=== PATIENT | male | born 1950 | race Caucasian/White ===

== ENCOUNTER 2016-02-11 17:34 | Inpatient (IN) | payer MEDICARE, MEDICAID ==
[~2016-02-11] VITALS: Ht 190.5 cm; Wt 143.6 kg
[~2016-02-11 17:34] MED LIST: ALBU17IN INH; ALBU83IN INH; BREO1INH3 INH; CARV6.25 PO; LISI-538 PO; OMEP20CA3 PO; PERCOCET PO; PRAV20TA2 PO; PRED10TA PO; ROPI1TAB PO; SPIR12.9 INH; TIOT18INH INH; ZYLO300T4 PO
[2016-02-11 18:53] LABS: DIFF SLIDE NUMBER 192; MEAN CORPUSCULAR HEMOGLOBIN 32.2 pg (27.0-33.0); MEAN CORPUSCULAR HGB CONC 32.6 g/dl (32.0-36.5); MEAN CORPUSCULAR VOLUME 98.6 fl (80.0-96.0); PLATELET COUNT, AUTOMATED 294 k/mm3 (150-450); RED CELL DISTRIBUTION WIDTH 13.8 % (11.5-14.5); WHITE BLOOD COUNT 12.6 K/mm3 (4.0-10.0)
[2016-02-11 19:13] LABS: ANION GAP 12 MEQ/L (8-16); BLOOD UREA NITROGEN 23 MG/DL (7-18); CALCIUM LEVEL 9.5 MG/DL (8.8-10.2); CARBON DIOXIDE LEVEL 26 MEQ/L (21-32); CHLORIDE LEVEL 100 MEQ/L (98-107); CREATININE FOR GFR 1.75 MG/DL (0.70-1.30); GLOMERULAR FILTRATION RATE 42.1 (>49); GLUCOSE, FASTING 112 MG/DL (80-110); POTASSIUM SERUM 4.3 MEQ/L (3.5-5.1); SODIUM LEVEL 138 MEQ/L (136-145)
[2016-02-11] MEDS ORDERED: ONDANSETRON 4MG/2ML VIAL (J2405) As Ordered ONE (19:26)
[2016-02-11] MEDS ORDERED: IPRATROPIUM 0.5MG/ALBUTEROL 2.5MG INH SOL UD 3ML (DUONEB)(J7620) As Ordered ONE (19:32)
[2016-02-11] MEDS ORDERED: ACETAMINOPHEN 325 MG TAB As Ordered ONE (19:33)
[2016-02-11 19:35] LABS: EOSINOPHILS 10 % (0-5)
[2016-02-11 19:39] LABS: GIANT PLATELETS 1+
[2016-02-11 19:48] LABS: ABG BASE EXCESS 1.2 (-2.0-2.0); ABG DEVICE NASAL CANN; ABG HCO3 25.1 MEQ/L (22.0-26.0); ABG PARTIAL PRESSURE CO2 37.5 mmHg (35.0-45.0); ABG STANDARD HCO3 25.6 MEQ/L (22.0-26.0); ABG TOTAL CO2 26.3 MEQ/L (23.0-31.0); ABG pH (ARTERIAL) 7.444 UNITS (7.350-7.450)
[2016-02-11 19:50] LABS: ABG PARTIAL PRESSURE O2 162.6 mmHg (75.0-100.0)
--- NOTE | 2016-02-11 20:26 | REP ---
Clinical: Shortness of breath. Technique: PA and lateral. Comparison: 01/29/2016, 01/07/2016. Findings: Chronic diffuse bilateral interstitial changes with fibrosis and scarring as well as left lower lobe opacities appear essentially unchanged compared to 01/07/2016. Mediastinum and cardiac silhouette stable. Skeletal structures intact. Impression: Findings appear stable when compared to 01/07/2016. Subtle superimposed acute process cannot be excluded and should be correlated clinically. Signed by Pb Perkins MD 02/11/2016 08:18 P
--- NOTE | 2016-02-11 23:10 | REPUSA ---
CLINICAL HISTORY: Left lower quadrant pain. TECHNIQUE: CT abdomen and pelvis without contrast. COMPARISON: January 29, 2016. CT ABDOMEN WITHOUT CONTRAST: Lung bases: Mild left pleural effusion, unchanged. Partial visualization of right lower lobe nodule. Liver: No intrahepatic ductal dilation. Diffusely decreased hepatic attenuation consistent with fatty infiltration. Gallbladder: Cholecystectomy. Pancreas: No pancreatic duct dilation. Bowel loops: Nondistended. Spleen: Normal size. Adrenals: Right adrenalectomy. Subtle nodularity of the left adrenal gland. Right kidney: Nephrectomy. Left kidney: No stones or hydronephrosis. Aorta: 2.9 cm infrarenal ectasia and mild ectasia of the right common iliac artery. Peritoneum: No free air. CT PELVIS WITHOUT CONTRAST: Colon: Scattered diverticula without evidence of diverticulitis. Bladder: Normally distended. Pelvic organs: Unremarkable. Peritoneum: No fluid. Lumbar spine: Degenerative spondylotic changes at multiple levels. IMPRESSION: 1. No acute abdominal findings to explain left lower quadrant pain. 2. Right lower lobe nodule is incompletely evaluated on this exam. Consider chest CT for full evaluat ion. 3. Stable appearance of left pleural effusion. 4. Right nephrectomy and adrenalectomy.
[2016-02-11] MEDS ORDERED: rOPINIRole 1MG TAB PO ONE (23:30)
--- NOTE | 2016-02-11 23:40 | REPUSA ---
CLINICAL HISTORY: Status post lobectomy for cancer. Fever. TECHNIQUE: CT chest without contrast. COMPARISON: January 07, 2016. CT CHEST WITHOUT CONTRAST: Lungs: Status post left upper lobectomy. Mild left pleural effusion. Interval appearance of left lowe r lobe centrilobular nodular opacities. Right lower lobe nodule measures 1.8 x 2.3 cm, stable. Right lung emphysematous changes. Interval resolution of previously seen right lower lobe centrilobular opa cities. Heart: Normal size. No significant effusion. Aorta: Normal caliber. Mediastinum and yesenia: No significant lymphadenopathy. Bony thorax: Nondisplaced fracture of the left posterior 4th rib. Limited upper abdomen: No acute findings. IMPRESSION: 1. Status post left upper lobectomy. 2. Stable right lower lobe nodule, presumed to represent neoplastic disease. 3. Resolution of right lower lobe centrilobular opacities, with interval appearance of left lower lob e centrilobular opacities, suggesting bronchopneumonia.
[2016-02-11] MEDS ORDERED: AZITHROMYCIN INJ 500MG VIAL (J0456) As Ordered ONE (23:44)
[2016-02-11] MEDS ORDERED: cefTRIAXone SOD 1 GM VIAL (J0696) As Ordered ONE (23:44)
[2016-02-12] MEDS ORDERED: MAGN400T5 PO
[2016-02-12] MEDS ORDERED: IRON65TA PO
[2016-02-12] MEDS ORDERED: IPRATROPIUM 0.5MG/ALBUTEROL 2.5MG INH SOL UD 3ML (DUONEB)(J7620) NEB PRN (00:45)
[2016-02-12] MEDS ORDERED: BISACODYL 5 MG TAB PO PRN (00:45)
[2016-02-12] MEDS ORDERED: ACETAMINOPHEN TAB 650MG DOSE (2X325MG) PO PRN (00:45)
[2016-02-12] MEDS: IPRATROPIUM 0.5MG/ALBUTEROL 2.5MG INH SOL UD 3ML (DUONEB)(J7620) NEB SCH ×4 (02:00→19:20)
--- NOTE | 2016-02-12 02:17 | EDDOCDS ---
Physician Documentation [facility] Name: Brandon Winchester Age: 65 yrs Sex: Male : 1950 Arrival Date: 02/11/2016 Time: 17:34 Bed 5 Private MD: Alex Pike MD Disposition: 02/10 23:38 Critical Care: Critical care not applicable. pc Disposition: 02/11/16 23:41 Hospitalization ordered by Peter Mclaughlin for Inpatient Admission. Preliminary diagnosis are Bronchopneumonia, unspecified organism - LLL, Malignant neoplasm of bronchus and lung. - Bed requested for 4 [place]. - Status is Inpatient Admission. mgs - Condition is Stable. - Problem is new. - Symptoms have improved. HPI: 19:36 This 65 yrs old Male presents to ER via Wheelchair with complaints of pc Breathing Difficulty. 19:36 The history is obtained from the patient, the patient's family/friend. He awoke feeling pc SOB this morning, with left lower abdominal pain, which has been recurrent since his LULectomy in December, having had 2 normal CTs in the past 4 weeks for the same complaint. He has not had any relief with his nebs and his family restarted his oxygen that he only had immediately post-op and does not use regularly. He has had chills but did not know he had a fever until he checked into the ED. He denies any vomiting or diarrhea but has been nauseated. He denies any sputum production, denies symptoms,. H e has chronic left chest pain since his surgery. At their worst, the symptoms were moderate. In the emergency department, the symptoms are unchanged. The patient has been recently seen by Dr. Perez. Historical: - Allergies: fizohex; - Home Meds: 1. albuterol sulfate 2.5 mg /3 mL (0.083 %) Inhl nebu daily 2. allopurinol 300 mg Oral tab 1 tab once daily 3. Breo Ellipta 200-25 mcg/dose inhalation dsdv 1 puff once daily 4. carvedilol 6.25 mg oral tab 1 tab 2 times per day 5. pravastatin 20 mg oral tab 1 tab once daily 6. Prilosec 20 mg Oral cpDR 1 cap once daily 7. ropinirole 3 mg oral tab 1 tab 8. Spiriva with HandiHaler 18 mcg Inhl CpDv 1 cap once daily - PMHx: COPD; Depression; GERD; Gout; Hypercholesterolemia; Hypertension; - The history from nurses notes was reviewed: and I agree with what is documented. - Social history: Smoking status: Patient/guardian denies using No barriers to communication noted, The patient speaks fluent Upper Sorbian. - Family history: Not pertinent. - : The pt / caregiver states he / she is not on anticoagulants. Home medication list is obtained from [employer] import data. - Hospitalizations: : No recent hospitalization is reported. - Exposure Risk Screening:: None identified. - Immunization history:: All immunizations up-to-date. - Social history:: the patient is a former smoker, the patient does not drink alcohol. ROS: 19:36 All systems are negative except as listed. pc Exam: 19:36 General Appearance: no acute distress, alert. pc 19:36 EENT: normal eye inspection, ears, nose and throat normal, pharynx normal, mucous membranes moist 19:36 Neck: The exam reveals no acute abnormalities. ROM is normal and painless. No nuchal rigidity is noted.. 19:36 Respiratory: no respiratory distress, normal breath sounds, Chest tenderness in the anterior aspect of left upper chest. 19:36 CVS: regular rhythm, normal S1 and S2, no murmurs, the patient is tachycardic, at 122 bpm. 19:36 Abdomen: soft, no organomegaly, normal bowel sounds, mild tenderness in the left upper quadrant, right lower quadrant and left lower quadrant, without rebound, voluntary guarding is not appreciated, involuntary guarding is not appreciated. 19:36 Back: normal inspection. 19:36 Skin: skin color is normal, warm, dry. 19:36 Extremities: The extremities have a grossly normal appearance, are non-tender, without acute ROM abnormalities. 19:36 Neuro: oriented x 3, cranial nerves normal as tested, no motor deficits, no sensory deficits. 19:36 Psych: normal mood. Vital Signs: 17:37 BP 131 / 83; Pulse 120; Resp 26 S; Temp 100.6(T); Pulse Ox 93% on R/A; Weight 138.8 kg dd6 / 306 lbs (R); Height 6 ft. 4 in. (193.04 cm) (R); 18:09 BP 146 / 88 (auto/); mgs 18:10 Pulse 124 MON; Pulse Ox 93% ; mgs 18:24 BP 151 / 88 (auto/); mgs 18:24 Pulse 124 MON; Pulse Ox 90% ; mgs 18:39 BP 149 / 87 (auto/); mgs 18:39 Pulse 122 MON; Pulse Ox 90% ; mgs 18:54 BP 148 / 85 (auto/); mgs 18:54 Pulse 122 MON; Pulse Ox 93% ; mgs 19:09 BP 147 / 84 (auto/); mgs 19:09 Pulse 122 MON; Pulse Ox 92% ; mgs 19:24 BP 149 / 86 (auto/); mgs 19:24 Pulse 120 MON; Pulse Ox 92% ; mgs 19:39 BP 148 / 92 (auto/); mgs 19:39 Pulse 120 MON; Pulse Ox 93% ; mgs 19:54 BP 145 / 81 (auto/); mgs 19:54 Pulse 116 MON; Pulse Ox 93% ; mgs 20:09 BP 141 / 88 (auto/); mgs 20:09 Pulse 116 MON; Pulse Ox 92% ; mgs 20:24 BP 136 / 75 (auto/); mgs 20:24 Pulse 114 MON; Pulse Ox 92% ; mgs 20:54 BP 112 / 60 (auto/); mgs 20:54 Pulse 112 MON; Pulse Ox 93% ; mgs 21:08 Pulse 110 MON; Temp 97.4(TE); Pulse Ox 92% ; mgs 21:09 BP 113 / 69 (auto/); mgs 21:24 BP 118 / 71 (auto/); mgs 21:24 Pulse 104 MON; Pulse Ox 93% ; mgs 21:39 BP 116 / 73 (auto/); mgs 21:39 BP 116 / 73 (auto/); mgs 21:39 Pulse 104 MON; Pulse Ox 94% ; mgs 21:40 Pulse 102 MON; Pulse Ox 94% ; mgs 21:54 BP 124 / 74 (auto/); mgs 21:54 Pulse 100 MON; Pulse Ox 93% ; mgs 22:09 BP 122 / 71 (auto/); mgs 22:09 Pulse 102 MON; Pulse Ox 93% ; mgs 22:24 BP 117 / 71 (auto/); mgs 22:24 Pulse 100 MON; Pulse Ox 91% ; mgs 22:39 BP 132 / 76 (auto/); mgs 22:40 Pulse 96 MON; Pulse Ox 90% ; mgs 22:54 BP 125 / 72 (auto/); mgs 22:55 Pulse 98 MON; Pulse Ox 89% ; mgs 23:09 BP 127 / 78 (auto/); mgs 23:09 Pulse 98 MON; Pulse Ox 88% ; mgs 23:23 Pulse 94 MON; Pulse Ox 89% ; mgs 23:24 BP 131 / 76 (auto/); mgs 23:39 BP 130 / 77 (auto/); mgs 23:39 Pulse 100 MON; Pulse Ox 94% on 4 lpm NC; mgs 23:54 BP 147 / 91 (auto/); mgs 23:54 Pulse 100 MON; Pulse Ox 93% ; mgs 0103 00:09 BP 140 / 76 (auto/); mgs 00:09 Pulse 102 MON; Pulse Ox 93% ; mgs 00:24 BP 131 / 77 (auto/); mgs 00:24 Pulse 102 MON; Pulse Ox 93% ; mgs 00:39 BP 146 / 80 (auto/); mgs 00:39 Pulse 102 MON; Pulse Ox 94% on 4 lpm NC; mgs 00:54 BP 139 / 74 (auto/); mgs 00:54 Pulse 100 MON; Pulse Ox 94% ; mgs 01:09 BP 136 / 78 (auto/); mgs 01:09 Pulse 108 MON; Pulse Ox 92% ; mgs 01:56 BP 135 / 78; Pulse 98; Resp 20; Temp 98.3(O); Pulse Ox 95% on 4 lpm NC; Pain 3/10; jmv 02/10 17:37 Body Mass Index 37.25 (138.80 kg, 193.04 cm) dd6 MDM: 02/10 18:19 ECG WITH READING ER PHYS+CARDIAG ordered. EDMS 18:23 Medical Records Library Professor/Pulse Ox/q 30 min VS ordered. brittny 18:23 IV Saline Lock ordered. brittny 18:23 Rhythm Strip to chart ordered. milagrok 18:23 Undress patient appropriately for examination ordered. brittny 18:23 -Blood Culture (Adults Only), peripheral from different site, or from device/port/PICC brittny etc. if present ordered. 18:23 Medical Records Library Professor/Pulse Ox/q 15 min VS ordered. jmk 18:23 Oxygen at 4L/Min NC or Home dosage ordered. jmk 18:24 Basic Metabolic Profile Ordered. EDMS 18:24 CBC with Diff Ordered. EDMS 18:24 Cardiac Injury Profile Ordered. EDMS 18:24 Troponin Ordered. EDMS 18:24 -Blood Culture Ordered. EDMS 18:42 -Blood Culture (Adults Only), peripheral from different site, or from device/port/PICC deg etc. if present complete. 18:43 BLOOD CULTURES Ordered. EDMS 18:54 DIFFERENTIAL NO CHARGE Ordered. EDMS 18:54 PLATELET ESTIMATE Ordered. EDMS 19:11 Call Respiratory ordered. pc 19:12 Lactic Acid (Weinstein tube on ice) Ordered. EDMS 19:12 Chest, 2 View (pa\E\lat) Ordered. EDMS 19:12 -Arterial Blood Gas Ordered. EDMS 19:16 Call Respiratory complete. sew 19:21 Ondansetron 4 mg IVP once ordered. pc 19:22 Basic Metabolic Profile Reviewed. pc 19:22 CBC with Diff Reviewed. pc 19:22 Cardiac Injury Profile Reviewed. pc 19:22 Troponin Reviewed. pc 19:25 Acetaminophen Tablet 650 mg PO once ordered. pc 19:25 NS 0.9% 500 ml IV at bolus once ordered. pc 19:25 Albuterol-Ipratropium 3 ml Inhalation once ordered. pc 19:25 Call Respiratory ordered. pc 19:33 Call Respiratory complete. sew 19:42 Differential Diagnosis: COPD exac., post-operative chest pain - ongoing, recurrent pc abdominal pain. Plan: labs, imaging, meds, EKG. 20:03 Test interpretation: EKG. pc 20:29 Financial registration complete. zo 20:41 Obtain sample by nasopharyngeal swab ordered. pc 20:41 CBC with Diff Reviewed. pc 20:41 -Arterial Blood Gas Reviewed. pc 20:41 PLATELET ESTIMATE Reviewed. pc 20:41 Lactic Acid (Weinstein tube on ice) Reviewed. pc 20:42 -Influenza A&B Rapid Antigen - Nose Ordered. EDMS 20:43 CT Chest Without Contrast Ordered. EDMS 20:43 CT ABD & PELVIS: No Contrast Ordered. EDMS 20:55 [place] Payment Agreement was scanned into [employer] and attached to record. zo 21:15 -Influenza A&B Rapid Antigen - Nose Reviewed. pc 21:15 Chest, 2 View (pa\E\lat) Reviewed. pc 23:17 rOPINIRole 2 mg PO once ordered. mgs 23:37 cefTRIAXone 1 grams IVPB once over 30 mins; dilute in 50mL of NS or D5W ordered. pc 23:37 azithromycin 500 mg IVPB once over 1 hrs; dilute in 250mL of D5W or NS ordered. pc 23:38 Data reviewed: old medical records, vital signs, nurses notes, EKG(s), lab test pc results, all radiology studies and available results. Test interpretation: LAB - all labs as ordered have been reviewed, interpreted and considered in the overall management of the clinical presentation; X-RAY - interpreted by Radiologist and personally reviewed, 2 view chest, ?CHF and LLL infiltrates interpreted by Radiologist and personally reviewed, Abdomen/Pelvis CT; no acute disease, Chest CT; new LLL bronchopneumonia, else stable. The patient has been re-examined and re-evaluated. The patient's symptoms have mildly improved after treatment. Physician consultation: Dr. Peter Mclaughlin DO was contacted at 23:40, regarding admission. Disposition: The historical points, examination findings, and any diagnostic results supporting the provided diagnosis, were discussed with the patient or legal guardian. The need for further work-up and/or treatment in the hospital was explained. 23:39 BED REQUEST+ADM ordered. EDMS /03 00:46 LOW FAT LOW CHOLESTEROL DIET ordered. EDMS 00:47 PHYSICAL THERAPY EVAL & TREAT ordered. EDMS 00:48 LEGIONELLA ANTIGEN URINE Ordered. EDMS 00:48 URINE STREP PNEUMONIAE ANTIGEN Ordered. EDMS 00:49 INFLUENZA A&B RAPID ANTIGEN Ordered. EDMS 00:49 SPUTUM CULTURE AND GRAM STAIN Ordered. EDMS 00:51 CARDIAC MARKER PANEL Ordered. EDMS 00:51 CARDIAC MARKER PANEL Ordered. EDMS 01:43 Admission / Observation Status ordered. EDMS EC/02 20:03 Rate is 124 beats/min. Rhythm is regular, Sinus tachycardia. QRS [place] is Normal. [place] pc interval is normal. QRS interval is normal. QT interval is normal. Q waves are Old in leads III, aVF. T waves are Normal. No ST changes noted. Clinical impression: Sinus tachycardia, Inferior OH - age indeterminate, and LAE. Administered Medications: 19:31 Drug: Ondansetron 4 mg [ondansetron HCl 2 mg/mL intravenous solution (2 mL)] Route: mgs IVP; Site: right wrist; 22:00 Follow up: Response: Nausea is decreased mgs 19:41 Drug: Acetaminophen 650 mg [acetaminophen 325 mg tablet (2 tabs)] Route: PO; mgs 19:41 Drug: NS 0.9% 500 ml [sodium chloride 0.9 % intravenous solution] Route: IV; Rate: mgs bolus; Site: right wrist; 21:59 Follow up: IV Status: Completed infusion; IV Intake: 500ml mgs 19:44 Drug: Albuterol-Ipratropium 3 ml [ipratropium-albuterol 0.5 mg-3 mg(2.5 mg base)/3 mL jc3 nebulization soln (3 mL)] Route: Inhalation; 23:42 Drug: rOPINIRole 2 mg Route: PO; mgs 02/11 00:00 Drug: cefTRIAXone 1 grams [ceftriaxone 250 mg solution for injection] Route: IVPB; mgs Infused Over: 30 mins; Site: right forearm; 00:45 Drug: azithromycin 500 mg [azithromycin 500 mg intravenous solution] Route: IVPB; mgs Infused Over: 1 hrs; Site: right wrist; Signatures: Dispatcher [employer] EDMS Kev Katz MD MD pc Murray, Denise, Manne[employer] Unit deg Collins Mckeon RN RN jmk Scott, Debra, RN RN dls Olin, Zoeann zo Wallace, Sarah sew Sheldon, Matthew, RN RN mgs Crane, Kelsi, RN RN kc3 Aman Medina 3 The chart was reviewed and I authenticate all verbal orders and agree with the evaluation and treatment provided.Corrections: (The following items were deleted from the chart) 02/10 19:41 19:36 CVS: regular pulse rate, regular rhythm, normal S1 and S2, no murmurs, pc pc Attachments: 20:55 [facility] Payment Agreement zo MTDD
--- NOTE | 2016-02-12 02:18 | EDDOCDS ---
Nurse's Notes [facility] Name: Brandon Winchester Age: 65 yrs Sex: Male : 1950 Arrival Date: 02/11/2016 Time: 17:34 Bed 5 Private MD: Alex Pike MD Diagnosis: Bronchopneumonia, unspecified organism-LLL;Malignant neoplasm of bronchus and lung Presentation: 02/10 17:56 Presenting complaint: Pt had upper lobe of left lung removed by Dr Perez December 24 dls been doing well since surgery. Today pt called family requesting oxygen again. Neb tx given all day pt on 2L oxygen running a fever congested cough. Adult Sepsis Screening: The patient does not have new or worsening altered mentation. Patient has a respiratory rate of greater than or equal to 22 (1 point). Systolic blood pressure is greater than 100. Patient has a qSOFA score of 1- Negative Sepsis Screen. Suicide/Homicide risk assessment- the patient denies having any suicidal and/or homicidal ideations and does not present with any other emotional, behavioral or mental health complaints. Status: Patient is not a claims service adjustor or dependent. Transition of care: patient was not received from another setting of care. 17:56 Acuity: KALEN Level 3 dls 17:56 Method Of Arrival: Wheelchair dls Triage Assessment: 18:01 General: Appears uncomfortable, Behavior is cooperative. Pain: Pain currently is 4 out dls of 10 on a pain scale. HIV screening NA for this visit Offered previously. Historical: - Allergies: fizohex; - Home Meds: 1. albuterol sulfate 2.5 mg /3 mL (0.083 %) Inhl nebu daily 2. allopurinol 300 mg Oral tab 1 tab once daily 3. Breo Ellipta 200-25 mcg/dose inhalation dsdv 1 puff once daily 4. carvedilol 6.25 mg oral tab 1 tab 2 times per day 5. pravastatin 20 mg oral tab 1 tab once daily 6. Prilosec 20 mg Oral cpDR 1 cap once daily 7. ropinirole 3 mg oral tab 1 tab 8. Spiriva with HandiHaler 18 mcg Inhl CpDv 1 cap once daily - PMHx: COPD; Depression; GERD; Gout; Hypercholesterolemia; Hypertension; - The history from nurses notes was reviewed: and I agree with what is documented. - Social history: Smoking status: Patient/guardian denies using No barriers to communication noted, The patient speaks fluent Arabic. - Family history: Not pertinent. - : The pt / caregiver states he / she is not on anticoagulants. Home medication list is obtained from [employer] import data. - Hospitalizations: : No recent hospitalization is reported. - Exposure Risk Screening:: None identified. - Immunization history:: All immunizations up-to-date. - Social history:: the patient is a former smoker, the patient does not drink alcohol. Screenin:10 Screening information is obtained from the patient. Fall risk: At risk due to. kc3 Assistance ADL's: Requires assistance with meal preparation, this assistance is provided by family members, housework, assistance is provided by family members. Abuse/DV Screen: The patient / caregiver reports he/she is: not in a situation that causes fear, pain or injury. Nutritional screening: No deficits noted. Advance Directives: Currently, there is a health care proxy, filiberto To. home support is adequate. Assessment: 18:12 General: Appears uncomfortable, Behavior is appropriate for age, cooperative. Pain: kc3 Location: chest and epigastric area Pain currently is 4 out of 10 on a pain scale. Neurological: Level of Consciousness is awake, alert, obeys commands, Oriented to person, place, time. Cardiovascular: Rhythm is sinus tachycardia Chest pain is described as Pain is 4 out of 10 on a pain scale. quality is achiness radiates Does not radiate. Respiratory: Airway is patent Respiratory effort is even, labored, Respiratory pattern is regular, symmetrical, Breath sounds are coarse Breath sounds with crackles Breath sounds with rhonchi. Derm: Skin is pink, warm & dry. Musculoskeletal: Circulation, motion, and sensation intact. 18:35 General: Appears uncomfortable, Behavior is appropriate for age, cooperative. General: kc3 Per daughter, pt had a total of 5 albuterol nebulizer treatments today salt maker. . Neurological: Level of Consciousness is awake, alert, obeys commands, Oriented to person, place, time. Cardiovascular: Rhythm is sinus tachycardia. Respiratory: Respiratory effort is even, labored, Respiratory pattern is regular, symmetrical. GI: Reports nausea. Derm: Skin is pink, warm & dry. Musculoskeletal: Circulation, motion, and sensation intact. 19:08 General: Appears uncomfortable, Behavior is appropriate for age, cooperative, Patient mgs reports pain in abdomen and left chest that is sharp and currently 4/10. Neurological: Level of Consciousness is awake, alert, Oriented to person, place, time. Cardiovascular: Capillary refill < 3 seconds. Respiratory: Airway is patent Respiratory effort is even, labored, Respiratory pattern is regular, symmetrical. Derm: Skin is pink, warm & dry. 19:42 Adult Sepsis Screening: The patient does not have new or worsening altered mentation. mgs Patient has a respiratory rate of greater than or equal to 22 (1 point). Systolic blood pressure is greater than 100. Patient has a qSOFA score of 1- Negative Sepsis Screen. 20:25 General: Appears in no apparent distress, Behavior is appropriate for age, cooperative. mgs Pain: Location: abdomen and left lower chest Pain currently is 4 out of 10 on a pain scale. Neurological: Level of Consciousness is awake, alert, Oriented to person, place, time. Cardiovascular: Capillary refill < 3 seconds. Respiratory: Airway is patent Respiratory effort is even, unlabored, Respiratory pattern is regular, symmetrical. Derm: Skin is pink, warm & dry. 21:08 General: Appears in no apparent distress, Behavior is appropriate for age, cooperative. mgs Pain: Location: abdomen and chest Pain currently is 4 out of 10 on a pain scale. Neurological: Level of Consciousness is awake, alert, Oriented to person, place, time. Cardiovascular: Capillary refill < 3 seconds. Respiratory: Airway is patent Respiratory effort is even, unlabored, Respiratory pattern is regular, symmetrical. Derm: Skin is pink, warm & dry. 21:45 General: Appears in no apparent distress, Behavior is appropriate for age, cooperative. mgs Pain: Location: abdomen and left chest Pain currently is 4 out of 10 on a pain scale. Neurological: Level of Consciousness is awake, alert, Oriented to person, place, time. Cardiovascular: Capillary refill < 3 seconds. Respiratory: Airway is patent Respiratory effort is even, unlabored, Respiratory pattern is regular, symmetrical. Derm: Skin is pink, warm & dry. 22:04 Adult Sepsis Screening: The patient does not have new or worsening altered mentation. mgs Patient has a respiratory rate of greater than or equal to 22 (1 point). Systolic blood pressure is greater than 100. Patient has a qSOFA score of 1- Negative Sepsis Screen. 22:29 General: Appears in no apparent distress, Behavior is appropriate for age, cooperative. mgs Neurological: Level of Consciousness is awake, alert, Oriented to person, place, time. Cardiovascular: Capillary refill < 3 seconds. Respiratory: Airway is patent Respiratory effort is even, unlabored, Respiratory pattern is regular, symmetrical. 23:05 General: Appears in no apparent distress, Behavior is appropriate for age, cooperative. mgs Pain: Location: anterior aspect of left upper chest and abdomen Pain currently is 4 out of 10 on a pain scale. Neurological: Level of Consciousness is awake, alert, Oriented to person, place, time. Cardiovascular: Capillary refill < 3 seconds. Respiratory: Airway is patent Respiratory effort is even, unlabored, Respiratory pattern is regular, symmetrical. Derm: Skin is pink, warm & dry. 02/11 00:03 Adult Sepsis Screening: The patient does not have new or worsening altered mentation. mgs Patient has a respiratory rate of greater than or equal to 22 (1 point). Systolic blood pressure is greater than 100. Patient has a qSOFA score of 1- Negative Sepsis Screen. General: Appears in no apparent distress, Behavior is appropriate for age, cooperative. Neurological: Level of Consciousness is awake, alert, Oriented to person, place, time. Cardiovascular: Capillary refill < 3 seconds. Respiratory: Airway is patent Respiratory effort is even, unlabored, Respiratory pattern is regular, symmetrical. Derm: Skin is pink, warm & dry. 01:12 General: Appears in no apparent distress, Behavior is appropriate for age, cooperative. mgs Neurological: Level of Consciousness is awake, alert, Oriented to person, place, time. Cardiovascular: Capillary refill < 3 seconds. Respiratory: Airway is patent Respiratory effort is even, unlabored, Respiratory pattern is regular, symmetrical. Derm: Skin is pink, warm & dry. 01:57 Adult Sepsis Screening: The patient does not have new or worsening altered mentation. mgs Patient has a respiratory rate of greater than or equal to 22 (1 point). Systolic blood pressure is greater than 100. Patient has a qSOFA score of 1- Negative Sepsis Screen. General: Appears in no apparent distress, Behavior is appropriate for age, cooperative. Neurological: Level of Consciousness is awake, alert, Oriented to person, place, time. Cardiovascular: Capillary refill < 3 seconds. Respiratory: Airway is patent Respiratory effort is even, unlabored, Respiratory pattern is regular, symmetrical. Derm: Skin is pink, warm & dry. 02:15 General: Appears in no apparent distress, Behavior is appropriate for age, cooperative. mgs Neurological: Level of Consciousness is awake, alert, Oriented to person, place, time. Cardiovascular: Capillary refill < 3 seconds. Respiratory: Airway is patent Respiratory effort is even, unlabored, Respiratory pattern is regular, symmetrical. Derm: Skin is pink, warm & dry. Vital Signs: 02/10 17:37 BP 131 / 83; Pulse 120; Resp 26 S; Temp 100.6(T); Pulse Ox 93% on R/A; Weight 138.8 kg dd6 (R); Height 6 ft. 4 in. (193.04 cm) (R); 18:09 BP 146 / 88 (auto/); mgs 18:10 Pulse 124 MON; Pulse Ox 93% ; mgs 18:24 BP 151 / 88 (auto/); mgs 18:24 Pulse 124 MON; Pulse Ox 90% ; mgs 18:39 BP 149 / 87 (auto/); mgs 18:39 Pulse 122 MON; Pulse Ox 90% ; mgs 18:54 BP 148 / 85 (auto/); mgs 18:54 Pulse 122 MON; Pulse Ox 93% ; mgs 19:09 BP 147 / 84 (auto/); mgs 19:09 Pulse 122 MON; Pulse Ox 92% ; mgs 19:24 BP 149 / 86 (auto/); mgs 19:24 Pulse 120 MON; Pulse Ox 92% ; mgs 19:39 BP 148 / 92 (auto/); mgs 19:39 Pulse 120 MON; Pulse Ox 93% ; mgs 19:54 BP 145 / 81 (auto/); mgs 19:54 Pulse 116 MON; Pulse Ox 93% ; mgs 20:09 BP 141 / 88 (auto/); mgs 20:09 Pulse 116 MON; Pulse Ox 92% ; mgs 20:24 BP 136 / 75 (auto/); mgs 20:24 Pulse 114 MON; Pulse Ox 92% ; mgs 20:54 BP 112 / 60 (auto/); mgs 20:54 Pulse 112 MON; Pulse Ox 93% ; mgs 21:08 Pulse 110 MON; Temp 97.4(TE); Pulse Ox 92% ; mgs 21:09 BP 113 / 69 (auto/); mgs 21:24 BP 118 / 71 (auto/); mgs 21:24 Pulse 104 MON; Pulse Ox 93% ; mgs 21:39 BP 116 / 73 (auto/); mgs 21:39 BP 116 / 73 (auto/); mgs 21:39 Pulse 104 MON; Pulse Ox 94% ; mgs 21:40 Pulse 102 MON; Pulse Ox 94% ; mgs 21:54 BP 124 / 74 (auto/); mgs 21:54 Pulse 100 MON; Pulse Ox 93% ; mgs 22:09 BP 122 / 71 (auto/); mgs 22:09 Pulse 102 MON; Pulse Ox 93% ; mgs 22:24 BP 117 / 71 (auto/); mgs 22:24 Pulse 100 MON; Pulse Ox 91% ; mgs 22:39 BP 132 / 76 (auto/); mgs 22:40 Pulse 96 MON; Pulse Ox 90% ; mgs 22:54 BP 125 / 72 (auto/); mgs 22:55 Pulse 98 MON; Pulse Ox 89% ; mgs 23:09 BP 127 / 78 (auto/); mgs 23:09 Pulse 98 MON; Pulse Ox 88% ; mgs 23:23 Pulse 94 MON; Pulse Ox 89% ; mgs 23:24 BP 131 / 76 (auto/); mgs 23:39 BP 130 / 77 (auto/); mgs 23:39 Pulse 100 MON; Pulse Ox 94% on 4 lpm NC; mgs 23:54 BP 147 / 91 (auto/); mgs 23:54 Pulse 100 MON; Pulse Ox 93% ; mgs 03 00:09 BP 140 / 76 (auto/); mgs 00:09 Pulse 102 MON; Pulse Ox 93% ; mgs 00:24 BP 131 / 77 (auto/); mgs 00:24 Pulse 102 MON; Pulse Ox 93% ; mgs 00:39 BP 146 / 80 (auto/); mgs 00:39 Pulse 102 MON; Pulse Ox 94% on 4 lpm NC; mgs 00:54 BP 139 / 74 (auto/); mgs 00:54 Pulse 100 MON; Pulse Ox 94% ; mgs 01:09 BP 136 / 78 (auto/); mgs 01:09 Pulse 108 MON; Pulse Ox 92% ; mgs 01:56 BP 135 / 78; Pulse 98; Resp 20; Temp 98.3(O); Pulse Ox 95% on 4 lpm NC; Pain 3/10; jmv 01/02 17:37 Body Mass Index 37.25 (138.80 kg, 193.04 cm) dd6 Vitals: 02/10 17:37 Log In Time: February 11, 2016 at 17:35. dd6 ED Course: 17:37 Patient visited by Tunde Vora PCA. dd6 17:37 Alex Pike is Private Physician. dd6 17:37 Patient moved to Waiting dd6 17:38 Patient moved to Pre RCE dd6 17:59 Triage Initiated dls 18:03 Jailyn Mcgowan,RN is Primary Nurse. dls 18:03 Patient moved to 5 dls 18:10 Patient visited by Jailyn Mcgowan RN. kc3 18:10 Patient visited by Brenda Cloud. nb2 18:10 Placed in gown. Bed in low position. Call light in reach. Side rails up X2. Cardiac nb2 monitor on. Pulse ox on. NIBP on. 18:11 The patient / caregiver is instructed regarding the plan of care and ED course. kc3 18:32 EKG done. (by ED staff). Reviewed by Lynn Luna MD. vamshi 18:37 Basic Metabolic Profile Sent. kc3 18:37 CBC with Diff Sent. kc3 18:37 Cardiac Injury Profile Sent. kc3 18:37 Troponin Sent. kc3 18:37 -Blood Culture Sent. kc3 18:38 Patient visited by Jailyn Mcgowan RN. kc3 18:38 Inserted saline lock: 20 gauge in right forearm and blood collected. The patient kc3 tolerated the procedure well. 19:04 BLOOD CULTURES Sent. vamshi 19:04 DIFFERENTIAL NO CHARGE Sent. vamshi 19:11 Patient visited by Peter Roberts,JENNIFER. mgs 19:11 Kev Katz MD is Attending Physician. pc 19:21 Patient visited by Kev Katz MD. pc 19:44 -Arterial Blood Gas Sent. jc3 20:12 Primary Nurse role handed off by Jailyn Mcgowan,JENNIFER vamshi 20:21 Patient visited by Shanice Estrella PCA. vamshi 20:25 Peter Roberts,JENNIFER is Primary Nurse. mgs 20:27 Patient visited by Peter Roberts RN. mgs 20:55 [facility] Payment Agreement was scanned into [employer] and attached to record. zo 20:59 Chest, 2 View (pa\E\lat) Returned. EDMS 21:09 Patient visited by Peter Roberts RN. mgs 21:48 Patient visited by Peter Roberts RN. mgs 22:29 Patient visited by Peter Roberts RN. mgs 23:07 Patient visited by Peter Roberts RN. mgs 23:41 Peter Mclaughlin DO is Hospitalizing Provider. pc 23:44 CT ABD & PELVIS: No Contrast Returned. EDMS 23:44 CT Chest Without Contrast Returned. EDMS 02/11 00:45 Patient visited by Peter Roberts RN. mgs 01:15 Patient visited by Peter Roberts RN. mgs 01:58 Patient visited by Hiram Krause PCA. jmv 02:02 Patient visited by Peter Roberts RN. mgs 02:15 No procedures done that require assistance. mgs Administered Medications: 02/10 19:31 Drug: Ondansetron 4 mg [ondansetron HCl 2 mg/mL intravenous solution (2 mL)] Route: mgs IVP; Site: right wrist; 22:00 Follow up: Response: Nausea is decreased mgs 19:41 Drug: Acetaminophen 650 mg [acetaminophen 325 mg tablet (2 tabs)] Route: PO; mgs 19:41 Drug: NS 0.9% 500 ml [sodium chloride 0.9 % intravenous solution] Route: IV; Rate: mgs bolus; Site: right wrist; 21:59 Follow up: IV Status: Completed infusion; IV Intake: 500ml mgs 19:44 Drug: Albuterol-Ipratropium 3 ml [ipratropium-albuterol 0.5 mg-3 mg(2.5 mg base)/3 mL jc3 nebulization soln (3 mL)] Route: Inhalation; 23:42 Drug: rOPINIRole 2 mg Route: PO; mgs 02/11 00:00 Drug: cefTRIAXone 1 grams [ceftriaxone 250 mg solution for injection] Route: IVPB; mgs Infused Over: 30 mins; Site: right forearm; 00:45 Drug: azithromycin 500 mg [azithromycin 500 mg intravenous solution] Route: IVPB; mgs Infused Over: 1 hrs; Site: right wrist; Intake: 02/10 21:59 IV: 500.00ml; Total: 500.00ml. mgs Output: 02/11 01:12 Urine: 450.00ml (Voided); Total: 450.00ml. mgs RT: 02/10 19:44 ABG's drawn from left radial artery. Initial Med Neb Given as ordered. O2 via nasal jc3 cannula \T\ 4L/min. 19:46 Respiratory: Breath sounds are coarse bilaterally. Breath sounds with rales bilaterally.jc3 Order Results: Lab Order: Basic Metabolic Profile; SPEC'M 02/11/16 18:33 Test: GLUCOSE, FASTING; Value: 112; Range: 80-110; Abnormal: Above high normal; Units: MG/DL; Status: F Test: BLOOD UREA NITROGEN; Value: 23; Range: 7-18; Abnormal: Above high normal; Units: MG/DL; Status: F Test: CREATININE FOR GFR; Value: 1.75; Range: 0.70-1.30; Abnormal: Above high normal; Units: MG/DL; Status: F Test: GLOMERULAR FILTRATION RATE; Value: 42.1; Range: >49; Abnormal: Below low normal; Status: F Test: SODIUM LEVEL; Value: 138; Range: 136-145; Units: MEQ/L; Status: F Test: POTASSIUM SERUM; Value: 4.3; Range: 3.5-5.1; Units: MEQ/L; Status: F Test: CHLORIDE LEVEL; Value: 100; Range: 98-107; Units: MEQ/L; Status: F Test: CARBON DIOXIDE LEVEL; Value: 26; Range: 21-32; Units: MEQ/L; Status: F Test: ANION GAP; Value: 12; Range: 8-16; Units: MEQ/L; Status: F Test: CALCIUM LEVEL; Value: 9.5; Range: 8.8-10.2; Units: MG/DL; Status: F Test Note: ; Units are mL/min/1.73 m2 Chronic Kidney Disease Staging per NKF: Stage I & II GFR >=60 Normal to Mildly Decreased Stage III GFR 30-59 Moderately Decreased Stage IV GFR 15-29 Severely Decreased Stage V GFR <15 Very Little GFR Left ESRD GFR <15 on LUBRICATION SERVICER Lab Order: CBC with Diff; SPEC'M 02/11/16 18:33 Test: WHITE BLOOD COUNT; Value: 12.6; Range: 4.0-10.0; Abnormal: Above high normal; Units: K/mm3; Status: F Test: RED BLOOD COUNT; Value: 4.29; Range: 4.30-6.10; Abnormal: Below low normal; Units: M/mm3; Status: F Test: HEMOGLOBIN; Value: 13.8; Range: 14.0-18.0; Abnormal: Below low normal; Units: g/dl; Status: F Test: HEMATOCRIT; Value: 42.3; Range: 42.0-52.0; Units: %; Status: F Test: MEAN CORPUSCULAR VOLUME; Value: 98.6; Range: 80.0-96.0; Abnormal: Above high normal; Units: fl; Status: F Test: MEAN CORPUSCULAR HEMOGLOBIN; Value: 32.2; Range: 27.0-33.0; Units: pg; Status: F Test: MEAN CORPUSCULAR HGB CONC; Value: 32.6; Range: 32.0-36.5; Units: g/dl; Status: F Test: RED CELL DISTRIBUTION WIDTH; Value: 13.8; Range: 11.5-14.5; Units: %; Status: F Test: PLATELET COUNT, AUTOMATED; Value: 294; Range: 150-450; Units: k/mm3; Status: F Test: NEUTROPHILS; Value: 73; Range: 35-75; Units: %; Status: F Test: LYMPHOCYTES; Value: 5; Range: 16-52; Abnormal: Below low normal; Units: %; Status: F Test: MONOCYTES; Value: 7; Range: 0-8; Units: %; Status: F Test: EOSINOPHILS; Value: 10; Range: 0-5; Abnormal: Above high normal; Units: %; Status: F Test: METAMYELOCYTES; Value: 1; Range: 0-0; Abnormal: Above high normal; Units: %; Status: F Test: MYELOCYTES; Value: 2; Range: 0-0; Abnormal: Above high normal; Units: %; Status: F Test: ATYPICAL LYMPH; Value: 2; Range: 0-5; Units: %; Status: F Test: GIANT PLATELETS; Value: 1+; Status: F Lab Order: Cardiac Injury Profile; [facility] 02/11/16 18:33 Test: CPK CREATINE PHOSPHOKINASE; Value: 76; Range: 39-308; Units: U/L; Status: F Test: CK-MB VALUE MASS; Value: 1.9; Range: 0.0-3.6; Units: NG/ML; Status: F Test: MB/CK RELATIVE INDEX; Value: 2.50; Range: < OR =4; Status: F Test Note: ; DIAGNOSIS CRITERIA MMB ng/ml Relative Index (RI) NON-AMI < or = 5 N/A WEINSTEIN ZONE > 5 < or = 4 AMI > 5 > 4 Lab Order: Troponin; 02/11/16 18:33 Test: TROPONIN I; Value: < 0.02; Range: < 0.10; Units: NG/ML; Status: F Test Note: ; Troponin I Reference Interval for [employer] LOCI: 99th Percentile= 0.00-0.045 ng/ml Risk Stratification: <= 0.10 ng/ml Decreased Risk for Adverse Clinical Events. 0.10-1.50 ng/ml Increased Risk for Adverse Clinical Events. Evaluation of additional criterion and/or repeat testing in 2-6 hours is suggested to rule out myocardial damage. >= 1.50 ng/ml Indicative of Myocardial Injury. Lab Order: PLATELET ESTIMATE; 02/11/16 18:33 Test: PLATELET ESTIMATE; Value: NORMAL; Range: NORMAL; Status: F Lab Order: Lactic Acid (Weinstein tube on ice); 02/11/16 18:23 Test: LACTIC ACID LEVEL, LACTATE; Value: 1.7; Range: 0.4-2.0; Units: MMOL/L; Status: F Lab Order: -Arterial Blood Gas; [facility] 02/11/16 19:36 Test: ABG pH (ARTERIAL); Value: 7.444; Range: 7.350-7.450; Units: UNITS; Status: F Test: ABG PARTIAL PRESSURE CO2; Value: 37.5; Range: 35.0-45.0; Units: mmHg; Status: F Test: ABG PARTIAL PRESSURE O2; Value: 162.6; Range: 75.0-100.0; Abnormal: Above high normal; Units: mmHg; Status: F Test: ABG TOTAL CO2; Value: 26.3; Range: 23.0-31.0; Units: MEQ/L; Status: F Test: ABG HCO3; Value: 25.1; Range: 22.0-26.0; Units: MEQ/L; Status: F Test: ABG BASE EXCESS; Value: 1.2; Range: -2.0-2.0; Status: F Test: ABG STANDARD HCO3; Value: 25.6; Range: 22.0-26.0; Units: MEQ/L; Status: F Test: ABG O2 SATURATION; Value: 99.3; Range: 95.0-99.0; Abnormal: Above high normal; Units: %; Status: F Test: ABG DEVICE; Value: NASAL MARITZA; Status: F Test Note: ; SPECIMEN CONTAINED LARGE AIR BUBBLE Lab Order: -Influenza A&B Rapid Antigen - Nose; SPEC'M 02/11/16 20:47 Test: INFLUENZA A RAPID SCR by ICA; Value: INFLUENZA A RESULTS NEGATIVE; Status: F Test: INFLUENZA A RAPID SCR by ICA; Value: Comments:; Status: F Test: INFLUENZA B RAPID SCR by ICA; Value: INFLUENZA B RESULTS NEGATIVE; Status: F Test Note: ; The Influenza test is a direct rapid immunoassay for the qualitative detection of Influenza viral antigen. Cell culture (Viral Culture) testing should be considered to confirm NEGATIVE results and to assist in detecting other viruses that can provide similar clinical symptoms. Please contact the lab within 24 hours ([phone]) if confirmatory testing is desired. Radiology Order: Chest, 2 View (pa\E\lat) Test: Chest, 2 View (pa\E\lat) REASON FOR EXAMINATION: Shortness of Breath; Clinical: Shortness of breath.; ; Technique: PA and lateral.; ; Comparison: 01/29/2016, 01/07/2016.; ; Findings: Chronic diffuse bilateral interstitial changes with fibrosis and; scarring as well as left lower lobe opacities appear essentially unchanged; compared to 01/07/2016. Mediastinum and cardiac silhouette stable. Skeletal; structures intact.; ; Impression:; Findings appear stable when compared to 01/07/2016. Subtle superimposed acute; process cannot be excluded and should be correlated clinically.; ; ; Signed by; Pb Perkins MD 02/11/2016 08:18 P; Radiology Order: CT Chest Without Contrast Test: CT Chest Without Contrast REASON FOR EXAMINATION: fever, s/p lobectomy fo Ca; ; CLINICAL HISTORY: Status post lobectomy for cancer. Fever.; ; TECHNIQUE: CT chest without contrast.; ; COMPARISON: January 07, 2016.; ; CT CHEST WITHOUT CONTRAST:; Lungs: Status post left upper lobectomy. Mild left pleural effusion. Interval appearance of left lowe; r lobe centrilobular nodular opacities. Right lower lobe nodule measures 1.8 x 2.3 cm, stable. Right; lung emphysematous changes. Interval resolution of previously seen right lower lobe centrilobular opa; cities.; Heart: Normal size. No significant effusion.; Aorta: Normal caliber.; Mediastinum and yesenia: No significant lymphadenopathy.; Bony thorax: Nondisplaced fracture of the left posterior 4th rib.; Limited upper abdomen: No acute findings.; IMPRESSION:; 1. Status post left upper lobectomy.; 2. 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 Resolution of right lower lobe centrilobular opacities, with interval appearance of left lower lob; e centrilobular opacities, suggesting bronchopneumonia.; ; Radiology Order: CT ABD & PELVIS: No Contrast Test: CT ABD & PELVIS: No Contrast REASON FOR EXAMINATION: LLQ pain; ; CLINICAL HISTORY: Left lower quadrant pain.; ; TECHNIQUE: CT abdomen and pelvis without contrast.; ; COMPARISON: January 29, 2016.; ; CT ABDOMEN WITHOUT CONTRAST:; Lung bases: Mild left pleural effusion, unchanged. Partial visualization of right lower lobe nodule.; Liver: No intrahepatic ductal dilation. Diffusely decreased hepatic attenuation consistent with fatty; infiltration.; Gallbladder: Cholecystectomy.; Pancreas: No pancreatic duct dilation.; Bowel loops: Nondistended.; Spleen: Normal size.; Adrenals: Right adrenalectomy. Subtle nodularity of the left adrenal gland.; Right kidney: Nephrectomy.; Left kidney: No stones or hydronephrosis.; Aorta: 2.9 cm infrarenal ectasia and mild ectasia of the right common iliac artery.; Peritoneum: No free air.; ; CT PELVIS WITHOUT CONTRAST:; Colon: Scattered diverticula without evidence of diverticulitis.; Bladder: Normally distended.; Pelvic organs: Unremarkable.; Peritoneum: No fluid.; Lumbar spine: Degenerative spondylotic changes at multiple levels.; IMPRESSION:; 1. No acute abdominal findings to explain left lower quadrant pain.; 2. Right lower lobe nodule is incompletely evaluated on this exam. Consider chest CT for full evaluat; ion.; 3. Stable appearance of left pleural effusion.; 4. Right nephrectomy and adrenalectomy.; ; Outcome: 23:41 Decision to Hospitalize by Provider. 02/11 02:15 Discharge Assessment: Patient awake, alert and oriented x 3. No cognitive and/or mgs functional deficits noted. Patient verbalized understanding of disposition instructions. patient administered narcotics - no. The following High Risk Discharge criteria are identified: None. Admitted to Med/Surg accompanied by tech, family with patient, via stretcher, with oxygen, with chart. Condition: stable. CT Study completed. Property :Personal belongings accompany Pt. 02:16 Patient left the ED. mgs Signatures: Dispatcher [employer] EDMS Kev Katz MD MD pc Scott, Debra RN RN dls Britney Mcdonald Joseph [id number] Tunde Vora, HAT BODY INSPECTOR HAT BODY INSPECTOR dd6 Shanice Estrella, HAT BODY INSPECTOR HAT BODY INSPECTOR vamshi Peter Roberts RN RN mgs Jailyn Mcgowan RN RN kc3 Brenda Cloud2 Hiram Krause, HAT BODY INSPECTOR HAT BODY INSPECTOR jmv Corrections: (The following items were deleted from the chart) 02/10 18:38 18:12 Respiratory: Airway is patent Respiratory effort is even, labored, Respiratory kc3 pattern is regular, symmetrical, kc3 02/11 01:13 00:39 Pulse 102bpm; Monitor; Pulse Ox 94%; mgs mgs 01:02/10 23:39 Pulse 100bpm; Monitor; Pulse Ox 94%; mgs mgs MTDD
[2016-02-12 02:25] VITALS: BP 131/87
[2016-02-12] MEDS: CARVedilol 6.25 MG TAB PO SCH ×3 (03:17→21:31)
[2016-02-12] MEDS: NS 1,000 ML IV SCH ×2 (03:18→14:21)
[2016-02-12] MEDS ORDERED: methylPREDNISolone INJ 125 MG/2 ML VIAL (J2930) IV SCH (04:00)
[2016-02-12] MEDS: HEPARIN SOD (PORCINE) 5000 UNITS/ML VIAL SC SCH ×3 (05:19→21:31)
[2016-02-12 06:00] VITALS: BP 107/66
--- NOTE | 2016-02-12 06:43 | HPE ---
DATE OF ADMISSION: 02/12/2016 PRIMARY CARE PROVIDER: Dr. Alex Pike ROLLER COASTER DESIGNER: Dr. Kimball THORACIC SURGEON: Dr. Perez CHIEF COMPLAINT: Dyspnea exacerbation. HISTORY OF PRESENT ILLNESS: Mr. Winchester is a 65-year-old male with multiple past medical history who presents to emergency room (ER) due experiencing dyspnea exacerbation. Patient expressed that when he woke up this morning he took a shower. After he came back, he felt suddenly out of breath and patient had the left upper lobe lobectomy, which was done in December by Dr. Perez. Patient was on 2 liter oxygen. However, patient has been off of oxygen for the past 2 weeks. However, Dr. Perez recommended that patient start on oxygen again if he developed dyspnea. Patient also wear continuous positive airway pressure (CPAP) at night and he is compliant with wearing his CPAP. Patient denies fever, chills, or night sweats. Patient however expressed that he has been experiencing nausea since this morning, but no vomiting and according to the daughter this has happened every time that he has become severely out of breath. Patient denies sick contact. Patient also expressed that he has noticed that his cough has been increased since this morning with some production of yellowish sputum. Patient also expressed that he has been experiencing chest pain mostly on the left chest stationary mostly under the left side of the sternum and thoracic cage. Patient expressed that he believes this is related to his left upper lobe lobectomy and increased the cough that he has been experiencing since this morning. At the emergency room (ER), patient found to have a temperature of 100.6. Patient received one dose of acetaminophen 650 as well as 500 bolus. Patient is started on breathing treatment as well as Rocephin and ceftriaxone and hospitalists were called to admit the patient. PAST MEDICAL HISTORY: 1. Large retroperitoneal and abdominal liposarcoma. 2. Obstructive sleep apnea, compliant with the CPAP. 3. Hypercholesterolemia. 4. Squamous cell carcinoma of the left upper lobe. 5. Chronic obstructive pulmonary disease (COPD), Gold 3. Recent pulmonary function test shows FEV1 of 1.89, 45% predicted with a diffused capacity of 103% predicted. 6. Right lower lobe squamous cell cancer. 7. Abdominal liposarcoma. 8. Prior respiratory failure from mucous plugging. 9. Morbid obesity. 10. Hypothyroidism. 11. Hypertension. 12. Prior absence of adrenal glands. 13. History of tobacco use. 14. Hyperlipidemia. 15. Right adrenal adenoma. 16. Chronic kidney disease. PAST SURGICAL HISTORY: 1. Left upper lobe lobectomy. 2. Right colectomy. 3. Right nephrectomy. 4. Right ureterectomy. 5. Adrenalectomy. 6. Left ankle fusion. 7. Pelvic fusion surgery. 8. Adenoid and polyp removal. ALLERGIES: HEXACHLOROPHENE. HOME MEDICATION: - Ventolin HFA two puff inhaler as needed, shortness of breath - albuterol sulfate 2.5 mg inhaler every 4 hours as needed, shortness of breath - Zyloprim 300 mg by mouth daily - carvedilol 6.25 mg by mouth twice a day - Breo Ellipta one puff inhaler daily - iron 325 mg by mouth daily - magnesium oxide 400 mg by mouth daily - omeprazole 20 mg by mouth daily - pravastatin sodium 20 mg by mouth daily - ropinirole 3 mg total daily - Spiriva two inhalation daily SOCIAL HISTORY: Patient lives alone. Patient has a history of 50 years, about 2 packs a day smoking. However, patient has stopped smoking in August 2015. Patient denies illicit drug use. Patient also denies alcoholism. However, patient occasionally drinks alcohol. Patient has not traveled outside of the [place]. Patient has two biological children and two stepchildren, and the biological children are healthy for age. FAMILY HISTORY: Patient has two sisters. One of the sisters . The other one has amyotrophic lateral sclerosis (ALS) as well as Parkinson. Patient's mother passes as well away due to cancer as well as cardiac and diabetes. Patient's father has angina and emphysema, and . REVIEW OF SYSTEM: GENERAL: Patient denies fever, chills, night sweats, weight loss, weight gain. HEENT: Patient denies acute vision or hearing changes. Patient also denies sinusitis or problem with chewing food. NECK: Patient denies lumps, bumps or decreased range of motion of his neck. HEART: Patient expressed mild chest pain, 4/10, mostly on the left side of the chest under his thoracic cage and sternum. However, patient expressed that he believes it is related to coughing as well as surgery area for the left upper lobe lobectomy. However, denies palpitation, racing or skipping heartbeat. LUNG: Patient expressed dyspnea exacerbation as well as coughing. ABDOMEN: Patient denies abdominal pain, melena, hematochezia, hematemesis, nausea or vomiting. However, patient has been nauseated since this morning. NEUROLOGIC: Patient denies history of transient ischemic attack (TIA), cerebrovascular accident (CVA) or seizure type activities. PHYSICAL EXAMINATION: VITAL SIGNS: Blood pressure 31/83, pulse 120, respiratory rate 26, temperature 100.6, pulse oximetry 93% on room air. Weight 138.8, height 193.04 cm, body mass index (BMI) 37.25. GENERAL APPEARANCE: Patient was lying in bed. No acute distress. Patient was awake, alert and oriented to time, place and person. HEENT: Normocephalic, atraumatic. Pupils are equal. Oral mucosa is moist. NECK: Soft, supple. HEART: Tachycardia. Normal S1, S2. LUNG: Patient has scattered rhonchi at the base of lung. Patient has inhale and exhale wheezing. ABDOMEN: Soft, obese. Positive bowel sounds in all quadrants. EXTREMITY: No lower extremity edema. +2 pulses in both lower extremities. NEUROLOGICAL: Cranial nerves II-XII was intact. No focal deficiencies. LABORATORY DATA: White blood cells 12.6, red blood cells 4.29, hemoglobin 13.6, hematocrit 42.3, MCV 98.6, MCH 32.2, MCHC 32.6, RDW 13.8, platelet count 294. Neutrophil percentage 73, lymphocyte 5, monocyte 7, eosinophil 10, metamyelocytes 1, myelocytes 2, atypical lymphocytes 2, platelet count estimate normal, giant platelet 1+. Bicarbonate standard 25.6, ABG pH 7.444, ABG pCO2 37.5, ABG pO2 162.6, ABG HCO3 25.1, ABG total CO2 26.3, ABG oxygen saturation 99.3, ABG base excess 1.2, oxygen delivery device nasal cannula. Sodium 138, potassium 4.3, chloride 100, carbon dioxide 26, anion gap 12, BUN 23 , creatinine 1.75, glomerular filtration rate 42.1, fasting glucose 112, lactic acid 1.7, calcium 9.5, total creatinine 76, CK-MB 1.9, CK-MB relative index 2.50 , troponin I less than 0.02. Blood culture is pending. IMAGING TECHNIQUES: Chest x-ray, which was compared to 01/07/2016, shows subtle superimposed acute processing, which cannot be excluded, however finding appears stable when compared with previous chest x-ray. Chest CT without contrast shows status post left upper lobectomy, stable right lower lobe nodule presumed to present neoplastic disease, resolution of the right lower lobe centrilobular opacities with interval appearance of the left lower lobe contributor opacities possibly suggestive of bronchial pneumonia. Abdomen CT and pelvic without contrast shows right lower lobe nodule is incompletely evaluated in this exam. Stable appearance of the left pleural effusion, right nephrectomy, and adrenalectomy. ASSESSMENT AND PLAN: 1. Possible community-acquired pneumonia. We have started patient on breathing treatment as well as ceftriaxone and azithromycin. Also, I have ordered Legionella antigen as well as strep pneumonia antigen result is pending at this time, as well as sputum culture and gram stain. Blood culture is pending at this time. Also, I started patient on acapella and incentive spirometry. 2. Chronic obstructive pulmonary disease exacerbation. Patient has a history of COPD. Therefore, I have started patient on Solu-Medrol as well as breathing treatments. Patient is stable at this time. Also, will continue patient on oxygen nasal cannula. At this time, patient is on 2 liter. We are saturating patient between 88-92%. 3. Acute kidney failure on chronic renal disease. This is possibly secondary to dehydration versus medication versus infection. Patient is not on nephrotoxic medication. We will start patient on IV fluid at the rate of 75, and we will continue monitoring patient's renal function. 4. Leukocytosis. This is secondary to infection. At this time, we will continue patient on current antibiotic. We will continue monitoring patient's white blood cell. 5. Hypertension. At this time, patient's blood pressure is stable. We will continue patient on Coreg. 6. Chest pain. Patient expressed that the pain started this morning and is on the left side of the chest, however does not have any radiation. Patient does not have hydrossis. EKG did not show any new pathology. The first set of the cardiac marker were negative. However, we will continue monitoring patient's cardiac marker. Also, we will continue patient on Coreg, as well as pravastatin , as well as aspirin. 7. Grade 1 left ventricular diastolic dysfunction. Patient had the echocardiogram, which was done on 12/28/2015, which shows that patient has mild concentric left ventricular hypertrophy. However, left ventricular ejection fraction was recorded at 75%. Patient also has mild aortic valve sclerosis of 3-cusp aortic valve. However, no aortic regurgitation was noticed. At this time, patient is stable. We will continue patient on Coreg. 8. 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 Patient is status post left upper lobe lobectomy. This is a chronic issue. At this time, patient is stable. 9. Obstructive sleep apnea. Patient is on CPAP and he is compliant. 10. Abdominal liposarcoma status post removal. Patient has a history of adrenalectomy. At this time, patient is stable. 11. Obesity. This is a chronic issue. 12. Gastroesophageal reflux disease. We will continue patient on omeprazole 20 mg by mouth daily. 13. Gout. Patient is on allopurinol. 14. Hyperlipidemia. Patient is on Pravachol. 15. Deep vein thrombosis (DVT) prophylaxis. Patient is on heparin. 16. History of tobacco use. At this time, patient is stable. 17. Right lower lobe squamous cell carcinoma. This is a chronic issue. Patient had the imaging technique, which appear to be stable compared to previous one. My preceptor for this patient encounter was Dr. Peter Mclaughlin. The preceptor was physically present in the building during the encounter and was fully available. As needed, all aspects of the patient interview, examination, medical decision making process, and medical care plan development were reviewed and approved by the preceptor. The preceptor is aware and concurs with the plan as stated in the body of this note and will attest to such by his/her co-signature. ZULLY
--- NOTE | 2016-02-12 08:12 | ECGEPIP ---
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
[2016-02-12] MEDS: ADVAIR DISKUS 500/50 INH PWD INH SCH ×2 (08:45→19:20)
[2016-02-12] MEDS: rOPINIRole 1MG TAB PO SCH ×2 (09:42→21:30)
[2016-02-12] MEDS: MAGNESIUM OXIDE 400 MG TAB (MAG-OX) PO SCH (09:43)
[2016-02-12] MEDS: OMEPRAZOLE 20 MG CAP PO SCH (09:43)
[2016-02-12] MEDS: ASPIRIN 81 MG CHEW TABLET PO SCH (09:43)
[2016-02-12] MEDS: ALLOPURINOL 300 MG TAB PO SCH (09:43)
[2016-02-12] MEDS: PRAVASTATIN 20 MG TAB PO SCH (09:43)
[2016-02-12] MEDS: FERROUS SULFATE 325MG TAB PO SCH (09:43)
[2016-02-12 14:00] VITALS: BP 132/82
--- NOTE | 2016-02-12 15:47 | IPN ---
DATE: 02/12/2016 The patient reporting improved respirations. Continues to have dyspnea and cough productive of yellow phlegm. The patient was admitted overnight. Denies any fevers, chills. Denies any significant chest pain, pressure or discomfort. The patient reports that he needs oxygen at home, which his doctor is trying to wean him off of it. Denies any fevers or chills. Denies any sick contacts. Reported living alone. VITAL SIGNS: Temperature 96.6, pulse 76, respirations 20, blood pressure 133/82, pulse oximetry 93% on 4 liters nasal cannula. LABORATORY DATA: WBC 12.6, hemoglobin and hematocrit 13.8/42.3, platelets 294. Chemistry: Sodium 138, potassium 4.3, chloride 100, bicarbonate 26, BUN 23, creatinine 1.75. Cardiac enzymes negative times three. PHYSICAL EXAMINATION: GENERAL: The patient is alert and oriented times three. In no acute distress. Morbidly obese. HEENT: Normocephalic, atraumatic. Pupils are equal, round and reactive. Moist mucous membranes. NECK: Supple. CARDIAC: Regular rate and rhythm. Normal S1, S2. PULMONARY: Scattered rhonchi bilateral. Mild expiratory wheeze. Good air entry. ABDOMEN: Soft, obese, nontender. Positive bowel sounds. EXTREMITIES: No edema in bilateral lower extremities. ASSESSMENT AND PLAN: This is a 65-year-old male patient with underlying medical history of large retroperitoneal abdominal lipoma, obstructive sleep apnea, compliant with continuous positive airway pressure (CPAP), dyslipidemia, squamous cell carcinoma of left upper lobe, chronic obstructive pulmonary disease (COPD), right lower lobe squamous cell cancer, recently had surgery in January 2016, respiratory failure secondary to mucous plugging, morbid obesity, hypothyroidism, hypertension, history of smoking, dyslipidemia, right adrenal adenoma, chronic kidney disease. The patient was admitted with acute COPD exacerbation secondary to healthcare-associated bacterial pneumonia. 1. Acute COPD exacerbation, chronic hypoxia with healthcare associated bacterial pneumonia. The patient is on azithromycin and Rocephin. IV fluids for hydration. Followup cultures. Solu-Medrol, taper as tolerated. Spiriva, Advair inhaler. Follow C-reactive protein. Physical therapy (PT). Acapella. 2. Acute on chronic renal insufficiency. IV fluids for hydration. Possibly secondary to dehydration. Withholding nephrotoxic agents. Followup BUN and creatinine. Followup urine output. 3. Leukocytosis, likely secondary to underlying pneumonia. Continue antibiotics. Followup cultures. 4. Hypertension. Continue home medications. 5. Chest pain, cardiac enzymes negative, likely secondary to cough and underlying infectious process. We will continue to monitor. 6. History of poorly differentiated squamous cell left upper lobe lung cancer, status post left upper lobectomy by Dr. Perez. Surgical site is well healed. Continue oxygen supplementation. Outpatient followup. 7. Obstructive sleep apnea. Continue CPAP. 8. History of abdominal liposarcoma, status post removal. Outpatient followup. 9. Obesity complicating care. 10. Gastroesophageal reflux disease (GERD). Continue proton pump inhibitor. 11. Gout. Continue home medications. 12. Dyslipidemia. Continue home medications. 13. History of smoking. Counseling provided. 14. Deep vein thrombosis (DVT) prophylaxis. Heparin subcutaneous. DISPOSITION PLANNING: Pending clinical improvement, physical therapy (PT), assess home oxygen requirements.
[2016-02-12] MEDS: methylPREDNISolone INJ 125 MG/2 ML VIAL (J2930) IV SCH (16:21)
[2016-02-12 22:00] VITALS: BP 131/74
[2016-02-12] MEDS: AZITHROMYCIN 500 MG, VIAL MATE ADAPTER 1 EACH in D5W 250 ML IV SCH (22:17)
[2016-02-12] MEDS: cefTRIAXone SOD 2 GM in D5W MINI-BAG PLUS 50 ML IV SCH (23:52)
[2016-02-13] MEDS: IPRATROPIUM 0.5MG/ALBUTEROL 2.5MG INH SOL UD 3ML (DUONEB)(J7620) NEB SCH ×5 (01:30→23:11)
[2016-02-13] MEDS: methylPREDNISolone INJ 125 MG/2 ML VIAL (J2930) IV SCH (03:36)
[2016-02-13] MEDS: NS 1,000 ML IV SCH (05:09)
[2016-02-13] MEDS: HEPARIN SOD (PORCINE) 5000 UNITS/ML VIAL SC SCH ×3 (05:09→22:14)
[2016-02-13 05:50] LABS: BASO % 0.1 % (0.0-1.0); EOS % 0.1 % (0.0-3.0); LARGE UNSTAINED CELL # 0.1 K/mm3 (0.0-0.4); LARGE UNSTAINED CELL % 0.7 % (0.0-4.0); LYMPH # 0.6 K/mm3 (1.5-4.5); MEAN CORPUSCULAR HGB CONC 32.3 g/dl (32.0-36.5); MEAN CORPUSCULAR VOLUME 98.9 fl (80.0-96.0); MONO # 0.4 K/mm3 (0.0-0.8); MONO % 2.8 % (0.0-5.0); NEUTROPHILS # 14.6 K/mm3 (1.8-7.7); NEUTROPHILS % 92.2 % (36.0-66.0); PLATELET COUNT, AUTOMATED 264 k/mm3 (150-450); RED CELL DISTRIBUTION WIDTH 13.6 % (11.5-14.5); WHITE BLOOD COUNT 15.8 K/mm3 (4.0-10.0)
[2016-02-13 06:00] VITALS: BP 131/70
[2016-02-13 06:10] LABS: ALBUMIN 3.1 GM/DL (3.2-5.2); ALBUMIN/GLOBULIN RATIO 0.69 (1.00-1.93); BILIRUBIN,TOTAL 0.3 MG/DL (0.2-1.0); CALCIUM LEVEL 9.3 MG/DL (8.8-10.2); CREATININE FOR GFR 1.34 MG/DL (0.70-1.30); GLOMERULAR FILTRATION RATE 57.3 (>49); MAGNESIUM LEVEL 1.6 MG/DL (1.8-2.4); POTASSIUM SERUM 4.5 MEQ/L (3.5-5.1); TOTAL PROTEIN 7.6 GM/DL (6.4-8.2)
[2016-02-13] MEDS: TIOTROPIUM INHALER/CAPSULE (SPIRIVA) INH SCH (07:28)
[2016-02-13] MEDS: ADVAIR DISKUS 500/50 INH PWD INH SCH ×2 (07:28→19:25)
[2016-02-13] MEDS: FERROUS SULFATE 325MG TAB PO SCH (08:54)
[2016-02-13] MEDS: ALLOPURINOL 300 MG TAB PO SCH (08:55)
[2016-02-13] MEDS: ASPIRIN 81 MG CHEW TABLET PO SCH (08:55)
[2016-02-13] MEDS: CARVedilol 6.25 MG TAB PO SCH ×2 (08:55→20:49)
[2016-02-13] MEDS: MAGNESIUM OXIDE 400 MG TAB (MAG-OX) PO SCH (08:55)
[2016-02-13] MEDS: OMEPRAZOLE 20 MG CAP PO SCH (08:55)
[2016-02-13] MEDS: PRAVASTATIN 20 MG TAB PO SCH (08:55)
[2016-02-13] MEDS: rOPINIRole 1MG TAB PO SCH ×2 (08:55→20:49)
[2016-02-13] MEDS ORDERED: MAG SULF 1GM/100ML (MAG RUN) 1 GM in APPROPRIATE DILUENT 1 EA IV ONE (11:30)
[2016-02-13 14:00] VITALS: BP 144/72
[2016-02-13] MEDS: methylPREDNISolone INJ 40 MG/1 ML VIAL (J2920) IV SCH (15:04)
--- NOTE | 2016-02-13 15:48 | IPN ---
DATE: 02/13/2016 Patient is seen and examined. No acute events overnight. The patient is seen and examined. Reporting improved respirations. Denies any fevers or chills. Denies any chest pain, pressure or discomfort. Is ambulating with physical therapy (PT). Oxygen saturation with ambulation is 91%. VITAL SIGNS: Temperature 96.9, pulse 97, respirations 18, blood pressure 144/72, pulse oximetry 93% on room air. LABORATORY DATA: WBC 15.8, hemoglobin and hematocrit 11.7/36.3, platelets 264. Chemistry: Sodium 137, potassium 4.5, chloride 100, bicarbonate 24, BUN 32, creatinine 1.34, magnesium 1.6, C-reactive protein 5.14. PHYSICAL EXAMINATION: GENERAL: The patient is alert and oriented times three. In no acute distress. Morbidly obese. HEENT: Normocephalic, atraumatic. Pupils are equal, round and reactive. Moist mucous membranes. NECK: Supple. CARDIAC: Regular rate and rhythm. Normal S1, S2. PULMONARY: Mild rhonchi bilaterally. Minimal expiratory wheeze. Good air entry. ABDOMEN: Soft, obese, nontender. Positive bowel sounds. EXTREMITIES: No edema in bilateral lower extremities. ASSESSMENT AND PLAN: This is a 65-year-old male with underlying medical history of large retroperitoneal abdominal lipoma, obstructive sleep apnea, compliant with CPAP, dyslipidemia, squamous cell left upper lobe lung cancer, chronic obstructive pulmonary disease (COPD), right lower lobe squamous cell lung cancer and recently had surgery in January 2016, respiratory failure secondary to mucous plugging, morbid obesity, hypothyroidism, hypertension, history of smoking, dyslipidemia, right adrenal adenoma, chronic kidney disease. The patient was admitted for acute COPD exacerbation with healthcare associated bacterial pneumonia. 1. Acute COPD exacerbation, chronic hypoxia with healthcare associated bacterial pneumonia. The patient was on azithromycin and Rocephin, IV fluids for hydration. Followup cultures. Solu-Medrol. Taper steroids. Spiriva and Advair inhalers. C-reactive protein. Physical therapy (PT). Acapella. 2. Acute on chronic renal insufficiency. IV hydration initially provided. Currently BUN and creatinine improved. Continue to follow. 3. Leukocytosis, likely secondary to underlying pneumonia. Antibiotic. Followup culture. 4. Hypertension. Continue home medications. 5. Chest pain. Cardiac enzymes are negative. Likely secondary to cough. Continue to monitor. 6. History of poorly differentiated squamous cell lung cancer. Status post lobectomy by Dr. Perez. Surgical site well healed. Outpatient followup. 7. Obstructive sleep apnea. Continue CPAP. 8. History of abdominal liposarcoma, status post removal. Outpatient followup. 9. Obesity. Complicating care. 10. Gastroesophageal reflux disease (GERD). Continue proton pump inhibitor. 11. Gout. Continue home medications. 12. Dyslipidemia. Continue home medications. 13. History of smoking. Counseling provided. 14. Deep vein thrombosis (DVT) prophylaxis. Heparin subcutaneously. DISPOSITION PLANNING: Clinical improvement. Physical therapy (PT).
[2016-02-13 22:00] VITALS: BP 134/69
[2016-02-13] MEDS: AZITHROMYCIN 500 MG, VIAL MATE ADAPTER 1 EACH in D5W 250 ML IV SCH (22:15)
[2016-02-13] MEDS: cefTRIAXone SOD 2 GM in D5W MINI-BAG PLUS 50 ML IV SCH (23:36)
--- NOTE | 2016-02-14 03:17 | EDDOCDS ---
Physician Documentation [facility] Name: Brandon Winchester Age: 65 yrs Sex: Male : 1950 Arrival Date: 02/11/2016 Time: 17:34 Bed 5 Private MD: Alex Pike MD Disposition: 02/10 23:38 Critical Care: Critical care not applicable. pc Disposition: 02/11/16 23:41 Hospitalization ordered by Peter Mclaughlin for Inpatient Admission. Preliminary diagnosis are Bronchopneumonia, unspecified organism - LLL, Malignant neoplasm of bronchus and lung. - Bed requested for 4 [place]. - Status is Inpatient Admission. mgs - Condition is Stable. - Problem is new. - Symptoms have improved. HPI: 19:36 This 65 yrs old Male presents to ER via Wheelchair with complaints of pc Breathing Difficulty. 19:36 The history is obtained from the patient, the patient's family/friend. He awoke feeling pc SOB this morning, with left lower abdominal pain, which has been recurrent since his LULectomy in December, having had 2 normal CTs in the past 4 weeks for the same complaint. He has not had any relief with his nebs and his family restarted his oxygen that he only had immediately post-op and does not use regularly. He has had chills but did not know he had a fever until he checked into the ED. He denies any vomiting or diarrhea but has been nauseated. He denies any sputum production, denies symptoms,. H e has chronic left chest pain since his surgery. At their worst, the symptoms were moderate. In the emergency department, the symptoms are unchanged. The patient has been recently seen by Dr. Perez. Historical: - Allergies: fizohex; - Home Meds: 1. albuterol sulfate 2.5 mg /3 mL (0.083 %) Inhl nebu daily 2. allopurinol 300 mg Oral tab 1 tab once daily 3. Breo Ellipta 200-25 mcg/dose inhalation dsdv 1 puff once daily 4. carvedilol 6.25 mg oral tab 1 tab 2 times per day 5. pravastatin 20 mg oral tab 1 tab once daily 6. Prilosec 20 mg Oral cpDR 1 cap once daily 7. ropinirole 3 mg oral tab 1 tab 8. Spiriva with HandiHaler 18 mcg Inhl CpDv 1 cap once daily - PMHx: COPD; Depression; GERD; Gout; Hypercholesterolemia; Hypertension; - The history from nurses notes was reviewed: and I agree with what is documented. - Social history: Smoking status: Patient/guardian denies using No barriers to communication noted, The patient speaks fluent Spanish. - Family history: Not pertinent. - : The pt / caregiver states he / she is not on anticoagulants. Home medication list is obtained from [employer] import data. - Hospitalizations: : No recent hospitalization is reported. - Exposure Risk Screening:: None identified. - Immunization history:: All immunizations up-to-date. - Social history:: the patient is a former smoker, the patient does not drink alcohol. ROS: 19:36 All systems are negative except as listed. pc Exam: 19:36 General Appearance: no acute distress, alert. pc 19:36 EENT: normal eye inspection, ears, nose and throat normal, pharynx normal, mucous membranes moist 19:36 Neck: The exam reveals no acute abnormalities. ROM is normal and painless. No nuchal rigidity is noted.. 19:36 Respiratory: no respiratory distress, normal breath sounds, Chest tenderness in the anterior aspect of left upper chest. 19:36 CVS: regular rhythm, normal S1 and S2, no murmurs, the patient is tachycardic, at 122 bpm. 19:36 Abdomen: soft, no organomegaly, normal bowel sounds, mild tenderness in the left upper quadrant, right lower quadrant and left lower quadrant, without rebound, voluntary guarding is not appreciated, involuntary guarding is not appreciated. 19:36 Back: normal inspection. 19:36 Skin: skin color is normal, warm, dry. 19:36 Extremities: The extremities have a grossly normal appearance, are non-tender, without acute ROM abnormalities. 19:36 Neuro: oriented x 3, cranial nerves normal as tested, no motor deficits, no sensory deficits. 19:36 Psych: normal mood. Vital Signs: 17:37 BP 131 / 83; Pulse 120; Resp 26 S; Temp 100.6(T); Pulse Ox 93% on R/A; Weight 138.8 kg dd6 / 306 lbs (R); Height 6 ft. 4 in. (193.04 cm) (R); 18:09 BP 146 / 88 (auto/); mgs 18:10 Pulse 124 MON; Pulse Ox 93% ; mgs 18:24 BP 151 / 88 (auto/); mgs 18:24 Pulse 124 MON; Pulse Ox 90% ; mgs 18:39 BP 149 / 87 (auto/); mgs 18:39 Pulse 122 MON; Pulse Ox 90% ; mgs 18:54 BP 148 / 85 (auto/); mgs 18:54 Pulse 122 MON; Pulse Ox 93% ; mgs 19:09 BP 147 / 84 (auto/); mgs 19:09 Pulse 122 MON; Pulse Ox 92% ; mgs 19:24 BP 149 / 86 (auto/); mgs 19:24 Pulse 120 MON; Pulse Ox 92% ; mgs 19:39 BP 148 / 92 (auto/); mgs 19:39 Pulse 120 MON; Pulse Ox 93% ; mgs 19:54 BP 145 / 81 (auto/); mgs 19:54 Pulse 116 MON; Pulse Ox 93% ; mgs 20:09 BP 141 / 88 (auto/); mgs 20:09 Pulse 116 MON; Pulse Ox 92% ; mgs 20:24 BP 136 / 75 (auto/); mgs 20:24 Pulse 114 MON; Pulse Ox 92% ; mgs 20:54 BP 112 / 60 (auto/); mgs 20:54 Pulse 112 MON; Pulse Ox 93% ; mgs 21:08 Pulse 110 MON; Temp 97.4(TE); Pulse Ox 92% ; mgs 21:09 BP 113 / 69 (auto/); mgs 21:24 BP 118 / 71 (auto/); mgs 21:24 Pulse 104 MON; Pulse Ox 93% ; mgs 21:39 BP 116 / 73 (auto/); mgs 21:39 BP 116 / 73 (auto/); mgs 21:39 Pulse 104 MON; Pulse Ox 94% ; mgs 21:40 Pulse 102 MON; Pulse Ox 94% ; mgs 21:54 BP 124 / 74 (auto/); mgs 21:54 Pulse 100 MON; Pulse Ox 93% ; mgs 22:09 BP 122 / 71 (auto/); mgs 22:09 Pulse 102 MON; Pulse Ox 93% ; mgs 22:24 BP 117 / 71 (auto/); mgs 22:24 Pulse 100 MON; Pulse Ox 91% ; mgs 22:39 BP 132 / 76 (auto/); mgs 22:40 Pulse 96 MON; Pulse Ox 90% ; mgs 22:54 BP 125 / 72 (auto/); mgs 22:55 Pulse 98 MON; Pulse Ox 89% ; mgs 23:09 BP 127 / 78 (auto/); mgs 23:09 Pulse 98 MON; Pulse Ox 88% ; mgs 23:23 Pulse 94 MON; Pulse Ox 89% ; mgs 23:24 BP 131 / 76 (auto/); mgs 23:39 BP 130 / 77 (auto/); mgs 23:39 Pulse 100 MON; Pulse Ox 94% on 4 lpm NC; mgs 23:54 BP 147 / 91 (auto/); mgs 23:54 Pulse 100 MON; Pulse Ox 93% ; mgs 0103 00:09 BP 140 / 76 (auto/); mgs 00:09 Pulse 102 MON; Pulse Ox 93% ; mgs 00:24 BP 131 / 77 (auto/); mgs 00:24 Pulse 102 MON; Pulse Ox 93% ; mgs 00:39 BP 146 / 80 (auto/); mgs 00:39 Pulse 102 MON; Pulse Ox 94% on 4 lpm NC; mgs 00:54 BP 139 / 74 (auto/); mgs 00:54 Pulse 100 MON; Pulse Ox 94% ; mgs 01:09 BP 136 / 78 (auto/); mgs 01:09 Pulse 108 MON; Pulse Ox 92% ; mgs 01:56 BP 135 / 78; Pulse 98; Resp 20; Temp 98.3(O); Pulse Ox 95% on 4 lpm NC; Pain 3/10; jmv 02/10 17:37 Body Mass Index 37.25 (138.80 kg, 193.04 cm) dd6 MDM: 02/10 18:19 ECG WITH READING ER PHYS+CARDIAG ordered. EDMS 18:23 Cuff Matcher/Pulse Ox/q 30 min VS ordered. brittny 18:23 IV Saline Lock ordered. brittny 18:23 Rhythm Strip to chart ordered. milagrok 18:23 Undress patient appropriately for examination ordered. brittny 18:23 -Blood Culture (Adults Only), peripheral from different site, or from device/port/PICC brittny etc. if present ordered. 18:23 Cuff Matcher/Pulse Ox/q 15 min VS ordered. jmk 18:23 Oxygen at 4L/Min NC or Home dosage ordered. jmk 18:24 Basic Metabolic Profile Ordered. EDMS 18:24 CBC with Diff Ordered. EDMS 18:24 Cardiac Injury Profile Ordered. EDMS 18:24 Troponin Ordered. EDMS 18:24 -Blood Culture Ordered. EDMS 18:42 -Blood Culture (Adults Only), peripheral from different site, or from device/port/PICC deg etc. if present complete. 18:43 BLOOD CULTURES Ordered. EDMS 18:54 DIFFERENTIAL NO CHARGE Ordered. EDMS 18:54 PLATELET ESTIMATE Ordered. EDMS 19:11 Call Respiratory ordered. pc 19:12 Lactic Acid (Weinstein tube on ice) Ordered. EDMS 19:12 Chest, 2 View (pa\E\lat) Ordered. EDMS 19:12 -Arterial Blood Gas Ordered. EDMS 19:16 Call Respiratory complete. sew 19:21 Ondansetron 4 mg IVP once ordered. pc 19:22 Basic Metabolic Profile Reviewed. pc 19:22 CBC with Diff Reviewed. pc 19:22 Cardiac Injury Profile Reviewed. pc 19:22 Troponin Reviewed. pc 19:25 Acetaminophen Tablet 650 mg PO once ordered. pc 19:25 NS 0.9% 500 ml IV at bolus once ordered. pc 19:25 Albuterol-Ipratropium 3 ml Inhalation once ordered. pc 19:25 Call Respiratory ordered. pc 19:33 Call Respiratory complete. sew 19:42 Differential Diagnosis: COPD exac., post-operative chest pain - ongoing, recurrent pc abdominal pain. Plan: labs, imaging, meds, EKG. 20:03 Test interpretation: EKG. pc 20:29 Financial registration complete. zo 20:41 Obtain sample by nasopharyngeal swab ordered. pc 20:41 CBC with Diff Reviewed. pc 20:41 -Arterial Blood Gas Reviewed. pc 20:41 PLATELET ESTIMATE Reviewed. pc 20:41 Lactic Acid (Weinstein tube on ice) Reviewed. pc 20:42 -Influenza A&B Rapid Antigen - Nose Ordered. EDMS 20:43 CT Chest Without Contrast Ordered. EDMS 20:43 CT ABD & PELVIS: No Contrast Ordered. EDMS 20:55 [facility] [place] was scanned into [employer] and attached to record. zo 21:15 -Influenza A&B Rapid Antigen - Nose Reviewed. pc 21:15 Chest, 2 View (pa\E\lat) Reviewed. pc 23:17 rOPINIRole 2 mg PO once ordered. mgs 23:37 cefTRIAXone 1 grams IVPB once over 30 mins; dilute in 50mL of NS or D5W ordered. pc 23:37 azithromycin 500 mg IVPB once over 1 hrs; dilute in 250mL of D5W or NS ordered. pc 23:38 Data reviewed: old medical records, vital signs, nurses notes, EKG(s), lab test pc results, all radiology studies and available results. Test interpretation: LAB - all labs as ordered have been reviewed, interpreted and considered in the overall management of the clinical presentation; X-RAY - interpreted by Radiologist and personally reviewed, 2 view chest, ?CHF and LLL infiltrates interpreted by Radiologist and personally reviewed, Abdomen/Pelvis CT; no acute disease, Chest CT; new LLL bronchopneumonia, else stable. The patient has been re-examined and re-evaluated. The patient's symptoms have mildly improved after treatment. Physician consultation: Dr. Peter Mclaughlin DO was contacted at 23:40, regarding admission. Disposition: The historical points, examination findings, and any diagnostic results supporting the provided diagnosis, were discussed with the patient or legal guardian. The need for further work-up and/or treatment in the hospital was explained. 23:39 BED REQUEST+ADM ordered. EDMS /03 00:46 LOW FAT LOW CHOLESTEROL DIET ordered. EDMS 00:47 PHYSICAL THERAPY EVAL & TREAT ordered. EDMS 00:48 LEGIONELLA ANTIGEN URINE Ordered. EDMS 00:48 URINE STREP PNEUMONIAE ANTIGEN Ordered. EDMS 00:49 INFLUENZA A&B RAPID ANTIGEN Ordered. EDMS 00:49 SPUTUM CULTURE AND GRAM STAIN Ordered. EDMS 00:51 CARDIAC MARKER PANEL Ordered. EDMS 00:51 CARDIAC MARKER PANEL Ordered. EDMS 01:43 Admission / Observation Status ordered. EDMS 09:11 ECG/EKG was scanned into [employer] and attached to record. EC/02 20:03 Rate is 124 beats/min. Rhythm is regular, Sinus tachycardia. QRS Kake is Normal. VT pc interval is normal. QRS interval is normal. QT interval is normal. Q waves are Old in leads III, aVF. T waves are Normal. No ST changes noted. Clinical impression: Sinus tachycardia, Inferior MA - age indeterminate, and LAE. Administered Medications: 19:31 Drug: Ondansetron 4 mg [ondansetron HCl 2 mg/mL intravenous solution (2 mL)] Route: mgs IVP; Site: right wrist; 22:00 Follow up: Response: Nausea is decreased mgs 19:41 Drug: Acetaminophen 650 mg [acetaminophen 325 mg tablet (2 tabs)] Route: PO; mgs 19:41 Drug: NS 0.9% 500 ml [sodium chloride 0.9 % intravenous solution] Route: IV; Rate: mgs bolus; Site: right wrist; 21:59 Follow up: IV Status: Completed infusion; IV Intake: 500ml mgs 19:44 Drug: Albuterol-Ipratropium 3 ml [ipratropium-albuterol 0.5 mg-3 mg(2.5 mg base)/3 mL jc3 nebulization soln (3 mL)] Route: Inhalation; 23:42 Drug: rOPINIRole 2 mg Route: PO; mgs 02/11 00:00 Drug: cefTRIAXone 1 grams [ceftriaxone 250 mg solution for injection] Route: IVPB; mgs Infused Over: 30 mins; Site: right forearm; 00:45 Drug: azithromycin 500 mg [azithromycin 500 mg intravenous solution] Route: IVPB; mgs Infused Over: 1 hrs; Site: right wrist; Signatures: Dispatcher [employer] EDMS Kev Katz MD MD pc Murray, Denise, Job Coach/Job Developer Unit deg Collins Mckeon RN RN jmk Scott, Debra, RN RN dls Barnhardt, Gloria, Reg Reg gb Harry, Meme Kilpatrick Matthew, RN RN mgs Crane, Kelsi, RN RN [facility] Aman Medina 3 The chart was reviewed and I authenticate all verbal orders and agree with the evaluation and treatment provided.Corrections: (The following items were deleted from the chart) 02/10 19:41 19:36 CVS: regular pulse rate, regular rhythm, normal S1 and S2, no murmurs, pc pc Attachments: 20:55 [facility] Payment Agreement zo 02/11 09:11 ECG/EKG gb Chart Complete MTDD
--- NOTE | 2016-02-14 03:17 | EDDOCDS ---
Nurse's Notes [facility] Name: Brandon Winchester Age: 65 yrs Sex: Male : 1950 Arrival Date: 02/11/2016 Time: 17:34 Bed 5 Private MD: Alex Pike MD Diagnosis: Bronchopneumonia, unspecified organism-LLL;Malignant neoplasm of bronchus and lung Presentation: 02/10 17:56 Presenting complaint: Pt had upper lobe of left lung removed by Dr Perez December 24 dls been doing well since surgery. Today pt called family requesting oxygen again. Neb tx given all day pt on 2L oxygen running a fever congested cough. Adult Sepsis Screening: The patient does not have new or worsening altered mentation. Patient has a respiratory rate of greater than or equal to 22 (1 point). Systolic blood pressure is greater than 100. Patient has a qSOFA score of 1- Negative Sepsis Screen. Suicide/Homicide risk assessment- the patient denies having any suicidal and/or homicidal ideations and does not present with any other emotional, behavioral or mental health complaints. Status: Patient is not a dispatcher service or dependent. Transition of care: patient was not received from another setting of care. 17:56 Acuity: KALEN Level 3 dls 17:56 Method Of Arrival: Wheelchair dls Triage Assessment: 18:01 General: Appears uncomfortable, Behavior is cooperative. Pain: Pain currently is 4 out dls of 10 on a pain scale. HIV screening NA for this visit Offered previously. Historical: - Allergies: fizohex; - Home Meds: 1. albuterol sulfate 2.5 mg /3 mL (0.083 %) Inhl nebu daily 2. allopurinol 300 mg Oral tab 1 tab once daily 3. Breo Ellipta 200-25 mcg/dose inhalation dsdv 1 puff once daily 4. carvedilol 6.25 mg oral tab 1 tab 2 times per day 5. pravastatin 20 mg oral tab 1 tab once daily 6. Prilosec 20 mg Oral cpDR 1 cap once daily 7. ropinirole 3 mg oral tab 1 tab 8. Spiriva with HandiHaler 18 mcg Inhl CpDv 1 cap once daily - PMHx: COPD; Depression; GERD; Gout; Hypercholesterolemia; Hypertension; - The history from nurses notes was reviewed: and I agree with what is documented. - Social history: Smoking status: Patient/guardian denies using No barriers to communication noted, The patient speaks fluent Frisian. - Family history: Not pertinent. - : The pt / caregiver states he / she is not on anticoagulants. Home medication list is obtained from [employer] import data. - Hospitalizations: : No recent hospitalization is reported. - Exposure Risk Screening:: None identified. - Immunization history:: All immunizations up-to-date. - Social history:: the patient is a former smoker, the patient does not drink alcohol. Screenin:10 Screening information is obtained from the patient. Fall risk: At risk due to. kc3 Assistance ADL's: Requires assistance with meal preparation, this assistance is provided by family members, housework, assistance is provided by family members. Abuse/DV Screen: The patient / caregiver reports he/she is: not in a situation that causes fear, pain or injury. Nutritional screening: No deficits noted. Advance Directives: Currently, there is a health care proxy, filiberto To. home support is adequate. Assessment: 18:12 General: Appears uncomfortable, Behavior is appropriate for age, cooperative. Pain: kc3 Location: chest and epigastric area Pain currently is 4 out of 10 on a pain scale. Neurological: Level of Consciousness is awake, alert, obeys commands, Oriented to person, place, time. Cardiovascular: Rhythm is sinus tachycardia Chest pain is described as Pain is 4 out of 10 on a pain scale. quality is achiness radiates Does not radiate. Respiratory: Airway is patent Respiratory effort is even, labored, Respiratory pattern is regular, symmetrical, Breath sounds are coarse Breath sounds with crackles Breath sounds with rhonchi. Derm: Skin is pink, warm & dry. Musculoskeletal: Circulation, motion, and sensation intact. 18:35 General: Appears uncomfortable, Behavior is appropriate for age, cooperative. 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 . Neurological: Level of Consciousness is awake, alert, obeys commands, Oriented to person, place, time. Cardiovascular: Rhythm is sinus tachycardia. Respiratory: Respiratory effort is even, labored, Respiratory pattern is regular, symmetrical. GI: Reports nausea. Derm: Skin is pink, warm & dry. Musculoskeletal: Circulation, motion, and sensation intact. 19:08 General: Appears uncomfortable, Behavior is appropriate for age, cooperative, Patient mgs reports pain in abdomen and left chest that is sharp and currently 4/10. Neurological: Level of Consciousness is awake, alert, Oriented to person, place, time. Cardiovascular: Capillary refill < 3 seconds. Respiratory: Airway is patent Respiratory effort is even, labored, Respiratory pattern is regular, symmetrical. Derm: Skin is pink, warm & dry. 19:42 Adult Sepsis Screening: The patient does not have new or worsening altered mentation. mgs Patient has a respiratory rate of greater than or equal to 22 (1 point). Systolic blood pressure is greater than 100. Patient has a qSOFA score of 1- Negative Sepsis Screen. 20:25 General: Appears in no apparent distress, Behavior is appropriate for age, cooperative. mgs Pain: Location: abdomen and left lower chest Pain currently is 4 out of 10 on a pain scale. Neurological: Level of Consciousness is awake, alert, Oriented to person, place, time. Cardiovascular: Capillary refill < 3 seconds. Respiratory: Airway is patent Respiratory effort is even, unlabored, Respiratory pattern is regular, symmetrical. Derm: Skin is pink, warm & dry. 21:08 General: Appears in no apparent distress, Behavior is appropriate for age, cooperative. mgs Pain: Location: abdomen and chest Pain currently is 4 out of 10 on a pain scale. Neurological: Level of Consciousness is awake, alert, Oriented to person, place, time. Cardiovascular: Capillary refill < 3 seconds. Respiratory: Airway is patent Respiratory effort is even, unlabored, Respiratory pattern is regular, symmetrical. Derm: Skin is pink, warm & dry. 21:45 General: Appears in no apparent distress, Behavior is appropriate for age, cooperative. mgs Pain: Location: abdomen and left chest Pain currently is 4 out of 10 on a pain scale. Neurological: Level of Consciousness is awake, alert, Oriented to person, place, time. Cardiovascular: Capillary refill < 3 seconds. Respiratory: Airway is patent Respiratory effort is even, unlabored, Respiratory pattern is regular, symmetrical. Derm: Skin is pink, warm & dry. 22:04 Adult Sepsis Screening: The patient does not have new or worsening altered mentation. mgs Patient has a respiratory rate of greater than or equal to 22 (1 point). Systolic blood pressure is greater than 100. Patient has a qSOFA score of 1- Negative Sepsis Screen. 22:29 General: Appears in no apparent distress, Behavior is appropriate for age, cooperative. mgs Neurological: Level of Consciousness is awake, alert, Oriented to person, place, time. Cardiovascular: Capillary refill < 3 seconds. Respiratory: Airway is patent Respiratory effort is even, unlabored, Respiratory pattern is regular, symmetrical. 23:05 General: Appears in no apparent distress, Behavior is appropriate for age, cooperative. mgs Pain: Location: anterior aspect of left upper chest and abdomen Pain currently is 4 out of 10 on a pain scale. Neurological: Level of Consciousness is awake, alert, Oriented to person, place, time. Cardiovascular: Capillary refill < 3 seconds. Respiratory: Airway is patent Respiratory effort is even, unlabored, Respiratory pattern is regular, symmetrical. Derm: Skin is pink, warm & dry. 02/11 00:03 Adult Sepsis Screening: The patient does not have new or worsening altered mentation. mgs Patient has a respiratory rate of greater than or equal to 22 (1 point). Systolic blood pressure is greater than 100. Patient has a qSOFA score of 1- Negative Sepsis Screen. General: Appears in no apparent distress, Behavior is appropriate for age, cooperative. Neurological: Level of Consciousness is awake, alert, Oriented to person, place, time. Cardiovascular: Capillary refill < 3 seconds. Respiratory: Airway is patent Respiratory effort is even, unlabored, Respiratory pattern is regular, symmetrical. Derm: Skin is pink, warm & dry. 01:12 General: Appears in no apparent distress, Behavior is appropriate for age, cooperative. mgs Neurological: Level of Consciousness is awake, alert, Oriented to person, place, time. Cardiovascular: Capillary refill < 3 seconds. Respiratory: Airway is patent Respiratory effort is even, unlabored, Respiratory pattern is regular, symmetrical. Derm: Skin is pink, warm & dry. 01:57 Adult Sepsis Screening: The patient does not have new or worsening altered mentation. mgs Patient has a respiratory rate of greater than or equal to 22 (1 point). Systolic blood pressure is greater than 100. Patient has a qSOFA score of 1- Negative Sepsis Screen. General: Appears in no apparent distress, Behavior is appropriate for age, cooperative. Neurological: Level of Consciousness is awake, alert, Oriented to person, place, time. Cardiovascular: Capillary refill < 3 seconds. Respiratory: Airway is patent Respiratory effort is even, unlabored, Respiratory pattern is regular, symmetrical. Derm: Skin is pink, warm & dry. 02:15 General: Appears in no apparent distress, Behavior is appropriate for age, cooperative. mgs Neurological: Level of Consciousness is awake, alert, Oriented to person, place, time. Cardiovascular: Capillary refill < 3 seconds. Respiratory: Airway is patent Respiratory effort is even, unlabored, Respiratory pattern is regular, symmetrical. Derm: Skin is pink, warm & dry. Vital Signs: 02/10 17:37 BP 131 / 83; Pulse 120; Resp 26 S; Temp 100.6(T); Pulse Ox 93% on R/A; Weight 138.8 kg dd6 (R); Height 6 ft. 4 in. (193.04 cm) (R); 18:09 BP 146 / 88 (auto/); mgs 18:10 Pulse 124 MON; Pulse Ox 93% ; mgs 18:24 BP 151 / 88 (auto/); mgs 18:24 Pulse 124 MON; Pulse Ox 90% ; mgs 18:39 BP 149 / 87 (auto/); mgs 18:39 Pulse 122 MON; Pulse Ox 90% ; mgs 18:54 BP 148 / 85 (auto/); mgs 18:54 Pulse 122 MON; Pulse Ox 93% ; mgs 19:09 BP 147 / 84 (auto/); mgs 19:09 Pulse 122 MON; Pulse Ox 92% ; mgs 19:24 BP 149 / 86 (auto/); mgs 19:24 Pulse 120 MON; Pulse Ox 92% ; mgs 19:39 BP 148 / 92 (auto/); mgs 19:39 Pulse 120 MON; Pulse Ox 93% ; mgs 19:54 BP 145 / 81 (auto/); mgs 19:54 Pulse 116 MON; Pulse Ox 93% ; mgs 20:09 BP 141 / 88 (auto/); mgs 20:09 Pulse 116 MON; Pulse Ox 92% ; mgs 20:24 BP 136 / 75 (auto/); mgs 20:24 Pulse 114 MON; Pulse Ox 92% ; mgs 20:54 BP 112 / 60 (auto/); mgs 20:54 Pulse 112 MON; Pulse Ox 93% ; mgs 21:08 Pulse 110 MON; Temp 97.4(TE); Pulse Ox 92% ; mgs 21:09 BP 113 / 69 (auto/); mgs 21:24 BP 118 / 71 (auto/); mgs 21:24 Pulse 104 MON; Pulse Ox 93% ; mgs 21:39 BP 116 / 73 (auto/); mgs 21:39 BP 116 / 73 (auto/); mgs 21:39 Pulse 104 MON; Pulse Ox 94% ; mgs 21:40 Pulse 102 MON; Pulse Ox 94% ; mgs 21:54 BP 124 / 74 (auto/); mgs 21:54 Pulse 100 MON; Pulse Ox 93% ; mgs 22:09 BP 122 / 71 (auto/); mgs 22:09 Pulse 102 MON; Pulse Ox 93% ; mgs 22:24 BP 117 / 71 (auto/); mgs 22:24 Pulse 100 MON; Pulse Ox 91% ; mgs 22:39 BP 132 / 76 (auto/); mgs 22:40 Pulse 96 MON; Pulse Ox 90% ; mgs 22:54 BP 125 / 72 (auto/); mgs 22:55 Pulse 98 MON; Pulse Ox 89% ; mgs 23:09 BP 127 / 78 (auto/); mgs 23:09 Pulse 98 MON; Pulse Ox 88% ; mgs 23:23 Pulse 94 MON; Pulse Ox 89% ; mgs 23:24 BP 131 / 76 (auto/); mgs 23:39 BP 130 / 77 (auto/); mgs 23:39 Pulse 100 MON; Pulse Ox 94% on 4 lpm NC; mgs 23:54 BP 147 / 91 (auto/); mgs 23:54 Pulse 100 MON; Pulse Ox 93% ; mgs 03 00:09 BP 140 / 76 (auto/); mgs 00:09 Pulse 102 MON; Pulse Ox 93% ; mgs 00:24 BP 131 / 77 (auto/); mgs 00:24 Pulse 102 MON; Pulse Ox 93% ; mgs 00:39 BP 146 / 80 (auto/); mgs 00:39 Pulse 102 MON; Pulse Ox 94% on 4 lpm NC; mgs 00:54 BP 139 / 74 (auto/); mgs 00:54 Pulse 100 MON; Pulse Ox 94% ; mgs 01:09 BP 136 / 78 (auto/); mgs 01:09 Pulse 108 MON; Pulse Ox 92% ; mgs 01:56 BP 135 / 78; Pulse 98; Resp 20; Temp 98.3(O); Pulse Ox 95% on 4 lpm NC; Pain 3/10; jmv 01/02 17:37 Body Mass Index 37.25 (138.80 kg, 193.04 cm) dd6 Vitals: 02/10 17:37 Log In Time: February 11, 2016 at 17:35. dd6 ED Course: 17:37 Patient visited by Tunde Vora PCA. dd6 17:37 Alex Pike is Private Physician. dd6 17:37 Patient moved to Waiting dd6 17:38 Patient moved to Pre RCE dd6 17:59 Triage Initiated dls 18:03 Jailyn Mcgowan,RN is Primary Nurse. dls 18:03 Patient moved to 5 dls 18:10 Patient visited by Jailyn Mcgowan RN. kc3 18:10 Patient visited by Brenda Cloud. nb2 18:10 Placed in gown. Bed in low position. Call light in reach. Side rails up X2. Cardiac nb2 monitor on. Pulse ox on. NIBP on. 18:11 The patient / caregiver is instructed regarding the plan of care and ED course. kc3 18:32 EKG done. (by ED staff). Reviewed by Lynn Luna MD. vamshi 18:37 Basic Metabolic Profile Sent. kc3 18:37 CBC with Diff Sent. kc3 18:37 Cardiac Injury Profile Sent. kc3 18:37 Troponin Sent. kc3 18:37 -Blood Culture Sent. kc3 18:38 Patient visited by Jailyn Mcgowan RN. kc3 18:38 Inserted saline lock: 20 gauge in right forearm and blood collected. The patient kc3 tolerated the procedure well. 19:04 BLOOD CULTURES Sent. vamshi 19:04 DIFFERENTIAL NO CHARGE Sent. vamshi 19:11 Patient visited by Peter Roberts,JENNIFER. mgs 19:11 Kev Katz MD is Attending Physician. pc 19:21 Patient visited by Kev Katz MD. pc 19:44 -Arterial Blood Gas Sent. jc3 20:12 Primary Nurse role handed off by Jailyn Mcgowan,JENNIFER vamshi 20:21 Patient visited by Shanice Estrella PCA. vamshi 20:25 Peter Roberts,JENNIFER is Primary Nurse. mgs 20:27 Patient visited by Peter Roberts RN. mgs 20:55 [facility] Payment Agreement was scanned into [employer] and attached to record. zo 20:59 Chest, 2 View (pa\E\lat) Returned. EDMS 21:09 Patient visited by Peter Roberts RN. mgs 21:48 Patient visited by Peter Roberts RN. mgs 22:29 Patient visited by Peter Roberts RN. mgs 23:07 Patient visited by Peter Roberts RN. mgs 23:41 Peter Mclaughlin DO is Hospitalizing Provider. pc 23:44 CT ABD & PELVIS: No Contrast Returned. EDMS 23:44 CT Chest Without Contrast Returned. EDMS 02/11 00:45 Patient visited by Peter Roberts RN. mgs 01:15 Patient visited by Peter Rboerts RN. mgs 01:58 Patient visited by Hiram Krause PCA. jmv 02:02 Patient visited by Peter Roberts RN. mgs 02:15 No procedures done that require assistance. mgs 09:11 ECG/EKG was scanned into [employer] and attached to record. gb Administered Medications: 02/10 19:31 Drug: Ondansetron 4 mg [ondansetron HCl 2 mg/mL intravenous solution (2 mL)] Route: mgs IVP; Site: right wrist; 22:00 Follow up: Response: Nausea is decreased mgs 19:41 Drug: Acetaminophen 650 mg [acetaminophen 325 mg tablet (2 tabs)] Route: PO; mgs 19:41 Drug: NS 0.9% 500 ml [sodium chloride 0.9 % intravenous solution] Route: IV; Rate: mgs bolus; Site: right wrist; 21:59 Follow up: IV Status: Completed infusion; IV Intake: 500ml mgs 19:44 Drug: Albuterol-Ipratropium 3 ml [ipratropium-albuterol 0.5 mg-3 mg(2.5 mg base)/3 mL jc3 nebulization soln (3 mL)] Route: Inhalation; 23:42 Drug: rOPINIRole 2 mg Route: PO; mgs 02/11 00:00 Drug: cefTRIAXone 1 grams [ceftriaxone 250 mg solution for injection] Route: IVPB; mgs Infused Over: 30 mins; Site: right forearm; 00:45 Drug: azithromycin 500 mg [azithromycin 500 mg intravenous solution] Route: IVPB; mgs Infused Over: 1 hrs; Site: right wrist; Intake: 02/10 21:59 IV: 500.00ml; Total: 500.00ml. mgs Output: 02/11 01:12 Urine: 450.00ml (Voided); Total: 450.00ml. mgs RT: 02/10 19:44 ABG's drawn from left radial artery. Initial Med Neb Given as ordered. O2 via nasal jc3 cannula \T\ 4L/min. 19:46 Respiratory: Breath sounds are coarse bilaterally. Breath sounds with rales bilaterally.jc3 Order Results: Lab Order: Basic Metabolic Profile; SPEC'M 02/11/16 18:33 Test: GLUCOSE, FASTING; Value: 112; Range: 80-110; Abnormal: Above high normal; Units: MG/DL; Status: F Test: BLOOD UREA NITROGEN; Value: 23; Range: 7-18; Abnormal: Above high normal; Units: MG/DL; Status: F Test: CREATININE FOR GFR; Value: 1.75; Range: 0.70-1.30; Abnormal: Above high normal; Units: MG/DL; Status: F Test: GLOMERULAR FILTRATION RATE; Value: 42.1; Range: >49; Abnormal: Below low normal; Status: F Test: SODIUM LEVEL; Value: 138; Range: 136-145; Units: MEQ/L; Status: F Test: POTASSIUM SERUM; Value: 4.3; Range: 3.5-5.1; Units: MEQ/L; Status: F Test: CHLORIDE LEVEL; Value: 100; Range: 98-107; Units: MEQ/L; Status: F Test: CARBON DIOXIDE LEVEL; Value: 26; Range: 21-32; Units: MEQ/L; Status: F Test: ANION GAP; Value: 12; Range: 8-16; Units: MEQ/L; Status: F Test: CALCIUM LEVEL; Value: 9.5; Range: 8.8-10.2; Units: MG/DL; Status: F Test Note: ; Units are mL/min/1.73 m2 Chronic Kidney Disease Staging per NKF: Stage I & II GFR >=60 Normal to Mildly Decreased Stage III GFR 30-59 Moderately Decreased Stage IV GFR 15-29 Severely Decreased Stage V GFR <15 Very Little GFR Left ESRD GFR <15 on [facility]IST Lab Order: CBC with Diff; DASH'Steph 02/11/16 18:33 Test: WHITE BLOOD COUNT; Value: 12.6; Range: 4.0-10.0; Abnormal: Above high normal; Units: K/mm3; Status: F Test: RED BLOOD COUNT; Value: 4.29; Range: 4.30-6.10; Abnormal: Below low normal; Units: M/mm3; Status: F Test: HEMOGLOBIN; Value: 13.8; Range: 14.0-18.0; Abnormal: Below low normal; Units: g/dl; Status: F Test: HEMATOCRIT; Value: 42.3; Range: 42.0-52.0; Units: %; Status: F Test: MEAN CORPUSCULAR VOLUME; Value: 98.6; Range: 80.0-96.0; Abnormal: Above high normal; Units: fl; Status: F Test: MEAN CORPUSCULAR HEMOGLOBIN; Value: 32.2; Range: 27.0-33.0; Units: pg; Status: F Test: MEAN CORPUSCULAR HGB CONC; Value: 32.6; Range: 32.0-36.5; Units: g/dl; Status: F Test: RED CELL DISTRIBUTION WIDTH; Value: 13.8; Range: 11.5-14.5; Units: %; Status: F Test: PLATELET COUNT, AUTOMATED; Value: 294; Range: 150-450; Units: k/mm3; Status: F Test: NEUTROPHILS; Value: 73; Range: 35-75; Units: %; Status: F Test: LYMPHOCYTES; Value: 5; Range: 16-52; Abnormal: Below low normal; Units: %; Status: F Test: MONOCYTES; Value: 7; Range: 0-8; Units: %; Status: F Test: EOSINOPHILS; Value: 10; Range: 0-5; Abnormal: Above high normal; Units: %; Status: F Test: METAMYELOCYTES; Value: 1; Range: 0-0; Abnormal: Above high normal; Units: %; Status: F Test: MYELOCYTES; Value: 2; Range: 0-0; Abnormal: Above high normal; Units: %; Status: F Test: ATYPICAL LYMPH; Value: 2; Range: 0-5; Units: %; Status: F Test: GIANT PLATELETS; Value: 1+; Status: F Lab Order: Cardiac Injury Profile; [facility]02/11/16 18:33 Test: CPK CREATINE PHOSPHOKINASE; Value: 76; Range: 39-308; Units: U/L; Status: F Test: CK-MB VALUE MASS; Value: 1.9; Range: 0.0-3.6; Units: NG/ML; Status: F Test: MB/CK RELATIVE INDEX; Value: 2.50; Range: < OR =4; Status: F Test Note: ; DIAGNOSIS CRITERIA MMB ng/ml Relative Index (RI) NON-AMI < or = 5 N/A WEINSTEIN ZONE > 5 < or = 4 AMI > 5 > 4 Lab Order: Troponin; 02/11/16 18:33 Test: TROPONIN I; Value: < 0.02; Range: < 0.10; Units: NG/ML; Status: F Test Note: ; Troponin I Reference Interval for DoseMe LOCI: 99th Percentile= 0.00-0.045 ng/ml Risk Stratification: <= 0.10 ng/ml Decreased Risk for Adverse Clinical Events. 0.10-1.50 ng/ml Increased Risk for Adverse Clinical Events. Evaluation of additional criterion and/or repeat testing in 2-6 hours is suggested to rule out myocardial damage. >= 1.50 ng/ml Indicative of Myocardial Injury. Lab Order: PLATELET ESTIMATE; 02/11/16 18:33 Test: PLATELET ESTIMATE; Value: NORMAL; Range: NORMAL; Status: F Lab Order: Lactic Acid (Weinstein tube on ice); 02/11/16 18:23 Test: LACTIC ACID LEVEL, LACTATE; Value: 1.7; Range: 0.4-2.0; Units: MMOL/L; Status: F Lab Order: -Arterial Blood Gas; 02/11/16 19:36 Test: ABG pH (ARTERIAL); Value: 7.444; Range: 7.350-7.450; Units: UNITS; Status: F Test: ABG PARTIAL PRESSURE CO2; Value: 37.5; Range: 35.0-45.0; Units: mmHg; Status: F Test: ABG PARTIAL PRESSURE O2; Value: 162.6; Range: 75.0-100.0; Abnormal: Above high normal; Units: mmHg; Status: F Test: ABG TOTAL CO2; Value: 26.3; Range: 23.0-31.0; Units: MEQ/L; Status: F Test: ABG HCO3; Value: 25.1; Range: 22.0-26.0; Units: MEQ/L; Status: F Test: ABG BASE EXCESS; Value: 1.2; Range: -2.0-2.0; Status: F Test: ABG STANDARD HCO3; Value: 25.6; Range: 22.0-26.0; Units: MEQ/L; Status: F Test: ABG O2 SATURATION; Value: 99.3; Range: 95.0-99.0; Abnormal: Above high normal; Units: %; Status: F Test: ABG DEVICE; Value: NASAL MARITZA; Status: F Test Note: ; SPECIMEN CONTAINED LARGE AIR BUBBLE Lab Order: -Influenza A&B Rapid Antigen - Nose; SPEC'M 02/11/16 20:47 Test: INFLUENZA A RAPID SCR by ICA; Value: INFLUENZA A RESULTS NEGATIVE; Status: F Test: INFLUENZA A RAPID SCR by ICA; Value: Comments:; Status: F Test: INFLUENZA B RAPID SCR by ICA; Value: INFLUENZA B RESULTS NEGATIVE; Status: F Test Note: ; The Influenza test is a direct rapid immunoassay for the qualitative detection of Influenza viral antigen. Cell culture (Viral Culture) testing should be considered to confirm NEGATIVE results and to assist in detecting other viruses that can provide similar clinical symptoms. Please contact the lab within 24 hours ([phone]) if confirmatory testing is desired. Radiology Order: Chest, 2 View (pa\E\lat) Test: Chest, 2 View (pa\E\lat) REASON FOR EXAMINATION: Shortness of Breath; Clinical: Shortness of breath.; ; Technique: PA and lateral.; ; Comparison: 01/29/2016, 01/07/2016.; ; Findings: Chronic diffuse bilateral interstitial changes with fibrosis and; scarring as well as left lower lobe opacities appear essentially unchanged; compared to 01/07/2016. Mediastinum and cardiac silhouette stable. Skeletal; structures intact.; ; Impression:; Findings appear stable when compared to 01/07/2016. Subtle superimposed acute; process cannot be excluded and should be correlated clinically.; ; ; Signed by; Pb Perkins MD 02/11/2016 08:18 P; Radiology Order: CT Chest Without Contrast Test: CT Chest Without Contrast REASON FOR EXAMINATION: fever, s/p lobectomy fo Ca; ; CLINICAL HISTORY: Status post lobectomy for cancer. Fever.; ; TECHNIQUE: CT chest without contrast.; ; COMPARISON: January 07, 2016.; ; CT CHEST WITHOUT CONTRAST:; Lungs: Status post left upper lobectomy. Mild left pleural effusion. Interval appearance of left lowe; r lobe centrilobular nodular opacities. Right lower lobe nodule measures 1.8 x 2.3 cm, stable. Right; lung emphysematous changes. Interval resolution of previously seen right lower lobe centrilobular opa; cities.; Heart: Normal size. No significant effusion.; Aorta: Normal caliber.; Mediastinum and yesenia: No significant lymphadenopathy.; Bony thorax: Nondisplaced fracture of the left posterior 4th rib.; Limited upper abdomen: No acute findings.; IMPRESSION:; 1. Status post left upper lobectomy.; 2. 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 Resolution of right lower lobe centrilobular opacities, with interval appearance of left lower lob; e centrilobular opacities, suggesting bronchopneumonia.; ; Radiology Order: CT ABD & PELVIS: No Contrast Test: CT ABD & PELVIS: No Contrast REASON FOR EXAMINATION: LLQ pain; ; CLINICAL HISTORY: Left lower quadrant pain.; ; TECHNIQUE: CT abdomen and pelvis without contrast.; ; COMPARISON: January 29, 2016.; ; CT ABDOMEN WITHOUT CONTRAST:; Lung bases: Mild left pleural effusion, unchanged. Partial visualization of right lower lobe nodule.; Liver: No intrahepatic ductal dilation. Diffusely decreased hepatic attenuation consistent with fatty; infiltration.; Gallbladder: Cholecystectomy.; Pancreas: No pancreatic duct dilation.; Bowel loops: Nondistended.; Spleen: Normal size.; Adrenals: Right adrenalectomy. Subtle nodularity of the left adrenal gland.; Right kidney: Nephrectomy.; Left kidney: No stones or hydronephrosis.; Aorta: 2.9 cm infrarenal ectasia and mild ectasia of the right common iliac artery.; Peritoneum: No free air.; ; CT PELVIS WITHOUT CONTRAST:; Colon: Scattered diverticula without evidence of diverticulitis.; Bladder: Normally distended.; Pelvic organs: Unremarkable.; Peritoneum: No fluid.; Lumbar spine: Degenerative spondylotic changes at multiple levels.; IMPRESSION:; 1. No acute abdominal findings to explain left lower quadrant pain.; 2. Right lower lobe nodule is incompletely evaluated on this exam. Consider chest CT for full evaluat; ion.; 3. Stable appearance of left pleural effusion.; 4. Right nephrectomy and adrenalectomy.; ; Outcome: 23:41 Decision to Hospitalize by Provider. 02/11 02:15 Discharge Assessment: Patient awake, alert and oriented x 3. No cognitive and/or mgs functional deficits noted. Patient verbalized understanding of disposition instructions. patient administered narcotics - no. The following High Risk Discharge criteria are identified: None. Admitted to Med/Surg accompanied by tech, family with patient, via stretcher, with oxygen, with chart. Condition: stable. CT Study completed. Property :Personal belongings accompany Pt. 02:16 Patient left the ED. mgs Signatures: Dispatcher [employer] EDMS Kev Katz MD MD pc Scott, Debra, RN RN dls Barnhardt, Gloria, Britney Jones Joseph jc3 Tunde Vora, MAINTENANCE REPAIRER MAINTENANCE REPAIRER dd6 Shanice Estrella, MAINTENANCE REPAIRER MAINTENANCE REPAIRER Peter Vargas RN RN mgs Jailyn Mcgowan RN RN [id number] Brenda Cloud2 Hiram Krause, MAINTENANCE REPAIRER MAINTENANCE REPAIRER jmv Corrections: (The following items were deleted from the chart) 02/10 18:38 18:12 Respiratory: Airway is patent Respiratory effort is even, labored, Respiratory kc3 pattern is regular, symmetrical, kc3 02/11 01:13 00:39 Pulse 102bpm; Monitor; Pulse Ox 94%; mgs mgs 01:02/10 23:39 Pulse 100bpm; Monitor; Pulse Ox 94%; mgs mgs Chart Complete MTDD
--- NOTE | 2016-02-14 03:17 | EDDOCDS ---
Physician Documentation [facility] Name: Brandon Winchester Age: 65 yrs Sex: Male : 1950 Arrival Date: 02/11/2016 Time: 17:34 Bed 5 Private MD: Alex Pike MD Disposition: 02/10 23:38 Critical Care: Critical care not applicable. pc Disposition: 02/11/16 23:41 Hospitalization ordered by Peter Mclaughlin for Inpatient Admission. Preliminary diagnosis are Bronchopneumonia, unspecified organism - LLL, Malignant neoplasm of bronchus and lung. - Bed requested for 4 Ramer. - Status is Inpatient Admission. mgs - Condition is Stable. - Problem is new. - Symptoms have improved. HPI: 19:36 This 65 yrs old Male presents to ER via Wheelchair with complaints of pc Breathing Difficulty. 19:36 The history is obtained from the patient, the patient's family/friend. He awoke feeling pc SOB this morning, with left lower abdominal pain, which has been recurrent since his LULectomy in December, having had 2 normal CTs in the past 4 weeks for the same complaint. He has not had any relief with his nebs and his family restarted his oxygen that he only had immediately post-op and does not use regularly. He has had chills but did not know he had a fever until he checked into the ED. He denies any vomiting or diarrhea but has been nauseated. He denies any sputum production, denies symptoms,. H e has chronic left chest pain since his surgery. At their worst, the symptoms were moderate. In the emergency department, the symptoms are unchanged. The patient has been recently seen by Dr. Perez. Historical: - Allergies: fizohex; - Home Meds: 1. albuterol sulfate 2.5 mg /3 mL (0.083 %) Inhl nebu daily 2. allopurinol 300 mg Oral tab 1 tab once daily 3. Breo Ellipta 200-25 mcg/dose inhalation dsdv 1 puff once daily 4. carvedilol 6.25 mg oral tab 1 tab 2 times per day 5. pravastatin 20 mg oral tab 1 tab once daily 6. Prilosec 20 mg Oral cpDR 1 cap once daily 7. ropinirole 3 mg oral tab 1 tab 8. Spiriva with HandiHaler 18 mcg Inhl CpDv 1 cap once daily - PMHx: COPD; Depression; GERD; Gout; Hypercholesterolemia; Hypertension; - The history from nurses notes was reviewed: and I agree with what is documented. - Social history: Smoking status: Patient/guardian denies using No barriers to communication noted, The patient speaks fluent Mohawk. - Family history: Not pertinent. - : The pt / caregiver states he / she is not on anticoagulants. Home medication list is obtained from [employer] import data. - Hospitalizations: : No recent hospitalization is reported. - Exposure Risk Screening:: None identified. - Immunization history:: All immunizations up-to-date. - Social history:: the patient is a former smoker, the patient does not drink alcohol. ROS: 19:36 All systems are negative except as listed. pc Exam: 19:36 General Appearance: no acute distress, alert. pc 19:36 EENT: normal eye inspection, ears, nose and throat normal, pharynx normal, mucous membranes moist 19:36 Neck: The exam reveals no acute abnormalities. ROM is normal and painless. No nuchal rigidity is noted.. 19:36 Respiratory: no respiratory distress, normal breath sounds, Chest tenderness in the anterior aspect of left upper chest. 19:36 CVS: regular rhythm, normal S1 and S2, no murmurs, the patient is tachycardic, at 122 bpm. 19:36 Abdomen: soft, no organomegaly, normal bowel sounds, mild tenderness in the left upper quadrant, right lower quadrant and left lower quadrant, without rebound, voluntary guarding is not appreciated, involuntary guarding is not appreciated. 19:36 Back: normal inspection. 19:36 Skin: skin color is normal, warm, dry. 19:36 Extremities: The extremities have a grossly normal appearance, are non-tender, without acute ROM abnormalities. 19:36 Neuro: oriented x 3, cranial nerves normal as tested, no motor deficits, no sensory deficits. 19:36 Psych: normal mood. Vital Signs: 17:37 BP 131 / 83; Pulse 120; Resp 26 S; Temp 100.6(T); Pulse Ox 93% on R/A; Weight 138.8 kg dd6 / 306 lbs (R); Height 6 ft. 4 in. (193.04 cm) (R); 18:09 BP 146 / 88 (auto/); mgs 18:10 Pulse 124 MON; Pulse Ox 93% ; mgs 18:24 BP 151 / 88 (auto/); mgs 18:24 Pulse 124 MON; Pulse Ox 90% ; mgs 18:39 BP 149 / 87 (auto/); mgs 18:39 Pulse 122 MON; Pulse Ox 90% ; mgs 18:54 BP 148 / 85 (auto/); mgs 18:54 Pulse 122 MON; Pulse Ox 93% ; mgs 19:09 BP 147 / 84 (auto/); mgs 19:09 Pulse 122 MON; Pulse Ox 92% ; mgs 19:24 BP 149 / 86 (auto/); mgs 19:24 Pulse 120 MON; Pulse Ox 92% ; mgs 19:39 BP 148 / 92 (auto/); mgs 19:39 Pulse 120 MON; Pulse Ox 93% ; mgs 19:54 BP 145 / 81 (auto/); mgs 19:54 Pulse 116 MON; Pulse Ox 93% ; mgs 20:09 BP 141 / 88 (auto/); mgs 20:09 Pulse 116 MON; Pulse Ox 92% ; mgs 20:24 BP 136 / 75 (auto/); mgs 20:24 Pulse 114 MON; Pulse Ox 92% ; mgs 20:54 BP 112 / 60 (auto/); mgs 20:54 Pulse 112 MON; Pulse Ox 93% ; mgs 21:08 Pulse 110 MON; Temp 97.4(TE); Pulse Ox 92% ; mgs 21:09 BP 113 / 69 (auto/); mgs 21:24 BP 118 / 71 (auto/); mgs 21:24 Pulse 104 MON; Pulse Ox 93% ; mgs 21:39 BP 116 / 73 (auto/); mgs 21:39 BP 116 / 73 (auto/); mgs 21:39 Pulse 104 MON; Pulse Ox 94% ; mgs 21:40 Pulse 102 MON; Pulse Ox 94% ; mgs 21:54 BP 124 / 74 (auto/); mgs 21:54 Pulse 100 MON; Pulse Ox 93% ; mgs 22:09 BP 122 / 71 (auto/); mgs 22:09 Pulse 102 MON; Pulse Ox 93% ; mgs 22:24 BP 117 / 71 (auto/); mgs 22:24 Pulse 100 MON; Pulse Ox 91% ; mgs 22:39 BP 132 / 76 (auto/); mgs 22:40 Pulse 96 MON; Pulse Ox 90% ; mgs 22:54 BP 125 / 72 (auto/); mgs 22:55 Pulse 98 MON; Pulse Ox 89% ; mgs 23:09 BP 127 / 78 (auto/); mgs 23:09 Pulse 98 MON; Pulse Ox 88% ; mgs 23:23 Pulse 94 MON; Pulse Ox 89% ; mgs 23:24 BP 131 / 76 (auto/); mgs 23:39 BP 130 / 77 (auto/); mgs 23:39 Pulse 100 MON; Pulse Ox 94% on 4 lpm NC; mgs 23:54 BP 147 / 91 (auto/); mgs 23:54 Pulse 100 MON; Pulse Ox 93% ; mgs 0103 00:09 BP 140 / 76 (auto/); mgs 00:09 Pulse 102 MON; Pulse Ox 93% ; mgs 00:24 BP 131 / 77 (auto/); mgs 00:24 Pulse 102 MON; Pulse Ox 93% ; mgs 00:39 BP 146 / 80 (auto/); mgs 00:39 Pulse 102 MON; Pulse Ox 94% on 4 lpm NC; mgs 00:54 BP 139 / 74 (auto/); mgs 00:54 Pulse 100 MON; Pulse Ox 94% ; mgs 01:09 BP 136 / 78 (auto/); mgs 01:09 Pulse 108 MON; Pulse Ox 92% ; mgs 01:56 BP 135 / 78; Pulse 98; Resp 20; Temp 98.3(O); Pulse Ox 95% on 4 lpm NC; Pain 3/10; jmv 02/10 17:37 Body Mass Index 37.25 (138.80 kg, 193.04 cm) dd6 MDM: 02/10 18:19 ECG WITH READING ER PHYS+CARDIAG ordered. EDMS 18:23 Consumer Analyst/Pulse Ox/q 30 min VS ordered. brittny 18:23 IV Saline Lock ordered. brittny 18:23 Rhythm Strip to chart ordered. milagrok 18:23 Undress patient appropriately for examination ordered. brittny 18:23 -Blood Culture (Adults Only), peripheral from different site, or from device/port/PICC brittny etc. if present ordered. 18:23 Consumer Analyst/Pulse Ox/q 15 min VS ordered. jmk 18:23 Oxygen at 4L/Min NC or Home dosage ordered. jmk 18:24 Basic Metabolic Profile Ordered. EDMS 18:24 CBC with Diff Ordered. EDMS 18:24 Cardiac Injury Profile Ordered. EDMS 18:24 Troponin Ordered. EDMS 18:24 -Blood Culture Ordered. EDMS 18:42 -Blood Culture (Adults Only), peripheral from different site, or from device/port/PICC deg etc. if present complete. 18:43 BLOOD CULTURES Ordered. EDMS 18:54 DIFFERENTIAL NO CHARGE Ordered. EDMS 18:54 PLATELET ESTIMATE Ordered. EDMS 19:11 Call Respiratory ordered. pc 19:12 Lactic Acid (Weinstein tube on ice) Ordered. EDMS 19:12 Chest, 2 View (pa\E\lat) Ordered. EDMS 19:12 -Arterial Blood Gas Ordered. EDMS 19:16 Call Respiratory complete. sew 19:21 Ondansetron 4 mg IVP once ordered. pc 19:22 Basic Metabolic Profile Reviewed. pc 19:22 CBC with Diff Reviewed. pc 19:22 Cardiac Injury Profile Reviewed. pc 19:22 Troponin Reviewed. pc 19:25 Acetaminophen Tablet 650 mg PO once ordered. pc 19:25 NS 0.9% 500 ml IV at bolus once ordered. pc 19:25 Albuterol-Ipratropium 3 ml Inhalation once ordered. pc 19:25 Call Respiratory ordered. pc 19:33 Call Respiratory complete. sew 19:42 Differential Diagnosis: COPD exac., post-operative chest pain - ongoing, recurrent pc abdominal pain. Plan: labs, imaging, meds, EKG. 20:03 Test interpretation: EKG. pc 20:29 Financial registration complete. zo 20:41 Obtain sample by nasopharyngeal swab ordered. pc 20:41 CBC with Diff Reviewed. pc 20:41 -Arterial Blood Gas Reviewed. pc 20:41 PLATELET ESTIMATE Reviewed. pc 20:41 Lactic Acid (Weinstein tube on ice) Reviewed. pc 20:42 -Influenza A&B Rapid Antigen - Nose Ordered. EDMS 20:43 CT Chest Without Contrast Ordered. EDMS 20:43 CT ABD & PELVIS: No Contrast Ordered. EDMS 20:55 [facility] was scanned into [employer] and attached to record. zo 21:15 -Influenza A&B Rapid Antigen - Nose Reviewed. pc 21:15 Chest, 2 View (pa\E\lat) Reviewed. pc 23:17 rOPINIRole 2 mg PO once ordered. mgs 23:37 cefTRIAXone 1 grams IVPB once over 30 mins; dilute in 50mL of NS or D5W ordered. pc 23:37 azithromycin 500 mg IVPB once over 1 hrs; dilute in 250mL of D5W or NS ordered. pc 23:38 Data reviewed: old medical records, vital signs, nurses notes, EKG(s), lab test pc results, all radiology studies and available results. Test interpretation: LAB - all labs as ordered have been reviewed, interpreted and considered in the overall management of the clinical presentation; X-RAY - interpreted by Radiologist and personally reviewed, 2 view chest, ?CHF and LLL infiltrates interpreted by Radiologist and personally reviewed, Abdomen/Pelvis CT; no acute disease, Chest CT; new LLL bronchopneumonia, else stable. The patient has been re-examined and re-evaluated. The patient's symptoms have mildly improved after treatment. Physician consultation: Dr. Peter Mclaughlin DO was contacted at 23:40, regarding admission. Disposition: The historical points, examination findings, and any diagnostic results supporting the provided diagnosis, were discussed with the patient or legal guardian. The need for further work-up and/or treatment in the hospital was explained. 23:39 BED REQUEST+ADM ordered. EDMS /03 00:46 LOW FAT LOW CHOLESTEROL DIET ordered. EDMS 00:47 PHYSICAL THERAPY EVAL & TREAT ordered. EDMS 00:48 LEGIONELLA ANTIGEN URINE Ordered. EDMS 00:48 URINE STREP PNEUMONIAE ANTIGEN Ordered. EDMS 00:49 INFLUENZA A&B RAPID ANTIGEN Ordered. EDMS 00:49 SPUTUM CULTURE AND GRAM STAIN Ordered. EDMS 00:51 CARDIAC MARKER PANEL Ordered. EDMS 00:51 CARDIAC MARKER PANEL Ordered. EDMS 01:43 Admission / Observation Status ordered. EDMS 09:11 ECG/EKG was scanned into Hyper[employer] and attached to record. EC/02 20:03 Rate is 124 beats/min. Rhythm is regular, Sinus tachycardia. QRS [place] is Normal. CA pc interval is normal. QRS interval is normal. QT interval is normal. Q waves are Old in leads III, aVF. T waves are Normal. No ST changes noted. Clinical impression: Sinus tachycardia, Inferior PR - age indeterminate, and LAE. Administered Medications: 19:31 Drug: Ondansetron 4 mg [ondansetron HCl 2 mg/mL intravenous solution (2 mL)] Route: mgs IVP; Site: right wrist; 22:00 Follow up: Response: Nausea is decreased mgs 19:41 Drug: Acetaminophen 650 mg [acetaminophen 325 mg tablet (2 tabs)] Route: PO; mgs 19:41 Drug: NS 0.9% 500 ml [sodium chloride 0.9 % intravenous solution] Route: IV; Rate: mgs bolus; Site: right wrist; 21:59 Follow up: IV Status: Completed infusion; IV Intake: 500ml mgs 19:44 Drug: Albuterol-Ipratropium 3 ml [ipratropium-albuterol 0.5 mg-3 mg(2.5 mg base)/3 mL jc3 nebulization soln (3 mL)] Route: Inhalation; 23:42 Drug: rOPINIRole 2 mg Route: PO; mgs 02/11 00:00 Drug: cefTRIAXone 1 grams [ceftriaxone 250 mg solution for injection] Route: IVPB; mgs Infused Over: 30 mins; Site: right forearm; 00:45 Drug: azithromycin 500 mg [azithromycin 500 mg intravenous solution] Route: IVPB; mgs Infused Over: 1 hrs; Site: right wrist; Signatures: Dispatcher [employer] EDMS Kev Katz MD MD pc Murray, Denise, Electronic Field Service Engineer Unit deg Collins Mckeon RN RN jmk Scott, Debra, RN RN dls Barnhardt, Gloria, Reg Reg gb Harry, Meme Kilpatrick Matthew, RN RN mgs Crane, Kelsi, RN RN [facility] Aman Medina 3 The chart was reviewed and I authenticate all verbal orders and agree with the evaluation and treatment provided.Corrections: (The following items were deleted from the chart) 02/10 19:41 19:36 CVS: regular pulse rate, regular rhythm, normal S1 and S2, no murmurs, pc pc Attachments: 20:55 [facility] Payment Agreement zo 02/11 09:11 ECG/EKG gb Chart Complete MTDD
[2016-02-14] MEDS: methylPREDNISolone INJ 40 MG/1 ML VIAL (J2920) IV SCH ×2 (03:19→15:01)
[2016-02-14] MEDS: HEPARIN SOD (PORCINE) 5000 UNITS/ML VIAL SC SCH ×4 (05:24→22:16)
[2016-02-14 06:00] VITALS: BP 124/75
[2016-02-14 06:37] LABS: BASO % 0.1 % (0.0-1.0); EOS % 0.2 % (0.0-3.0); LARGE UNSTAINED CELL # 0.2 K/mm3 (0.0-0.4); LARGE UNSTAINED CELL % 1.5 % (0.0-4.0); LYMPH # 0.7 K/mm3 (1.5-4.5); LYMPH % 4.5 % (24.0-44.0); MEAN CORPUSCULAR HEMOGLOBIN 31.5 pg (27.0-33.0); MEAN CORPUSCULAR HGB CONC 31.5 g/dl (32.0-36.5); MEAN CORPUSCULAR VOLUME 100.2 fl (80.0-96.0); MONO # 0.6 K/mm3 (0.0-0.8); MONO % 3.7 % (0.0-5.0); NEUTROPHILS # 13.6 K/mm3 (1.8-7.7); PLATELET COUNT, AUTOMATED 278 k/mm3 (150-450); RED CELL DISTRIBUTION WIDTH 13.8 % (11.5-14.5); WHITE BLOOD COUNT 15.1 K/mm3 (4.0-10.0)
[2016-02-14 06:55] LABS: ALBUMIN 3.1 GM/DL (3.2-5.2); ALBUMIN/GLOBULIN RATIO 0.72 (1.00-1.93); BILIRUBIN,TOTAL 0.2 MG/DL (0.2-1.0); CREATININE FOR GFR 1.39 MG/DL (0.70-1.30); GLOMERULAR FILTRATION RATE 54.9 (>49); MAGNESIUM LEVEL 1.8 MG/DL (1.8-2.4); POTASSIUM SERUM 4.3 MEQ/L (3.5-5.1); TOTAL PROTEIN 7.4 GM/DL (6.4-8.2)
[2016-02-14] MEDS: ADVAIR DISKUS 500/50 INH PWD INH SCH ×2 (07:12→19:37)
[2016-02-14] MEDS: TIOTROPIUM INHALER/CAPSULE (SPIRIVA) INH SCH (07:12)
[2016-02-14] MEDS: IPRATROPIUM 0.5MG/ALBUTEROL 2.5MG INH SOL UD 3ML (DUONEB)(J7620) NEB SCH ×3 (07:13→20:00)
[2016-02-14] MEDS: ASPIRIN 81 MG CHEW TABLET PO SCH (08:19)
[2016-02-14] MEDS: MAGNESIUM OXIDE 400 MG TAB (MAG-OX) PO SCH (08:19)
[2016-02-14] MEDS: rOPINIRole 1MG TAB PO SCH ×2 (08:19→20:29)
[2016-02-14] MEDS: OMEPRAZOLE 20 MG CAP PO SCH (08:19)
[2016-02-14] MEDS: PRAVASTATIN 20 MG TAB PO SCH (08:20)
[2016-02-14] MEDS: FERROUS SULFATE 325MG TAB PO SCH (08:20)
[2016-02-14] MEDS: CARVedilol 6.25 MG TAB PO SCH ×2 (08:20→20:29)
[2016-02-14] MEDS: ALLOPURINOL 300 MG TAB PO SCH (08:20)
[2016-02-14 14:00] VITALS: BP 140/83
--- NOTE | 2016-02-14 17:34 | IPN ---
DATE: 02/14/2016 Patient seen and examined. Reported only minimal cough and mild wheeze with minimal dyspnea on exertion. Almost back to baseline. Denies any chest pain, pressure, discomfort. Denies any fevers or chills. VITAL SIGNS: Temperature 97, pulse 100, respirations 19, blood pressure 140/83, pulse oximetry 94% on room air. LABORATORY DATA: WBC 15.1, hemoglobin and hematocrit 11.3 over 36, platelets 278. Chemistry: Sodium 139, potassium 4.3, chloride 103, bicarbonate 26, BUN 34, creatinine 1.39. PHYSICAL EXAMINATION: GENERAL: Patient obese, alert and oriented times three, in no acute distress. HEENT: Normocephalic, atraumatic. Pupils equal, rough and reactive. Moist mucous membranes. NECK: Supple. CARDIAC: Regular rate and rhythm. Normal S1, S2. PULMONARY: Mild rhonchi bilateral, minimal expiratory wheeze, good air entry. ABDOMEN: Soft, obese, nontender. Positive bowel sounds. EXTREMITIES: No edema bilateral lower extremities. ASSESSMENT AND PLAN: This is a 65-year-old male with underlying medical history of large peritoneal abdominal lipoma, obstructive sleep apnea, compliant with continuous positive airway pressure (CPAP), dyslipidemia, left squamous cell lung cancer, chronic obstructive pulmonary disease (COPD), recently had surgery January [address] Perez, complicated with respiratory failure secondary to mucous plugging, morbid obesity, hypothyroidism, hypertension, history of smoking, dyslipidemia, right adrenal adenoma, chronic kidney disease. The patient was admitted for acute COPD exacerbation and healthcare-associated bacterial pneumonia. Problems: 1. Acute chronic obstructive pulmonary disease exacerbation, worsening of hypoxia with healthcare-associated bacterial pneumonia. The patient was placed on azithromycin and Rocephin, IV hydration, followup cultures, Solu-Medrol, taper steroids, Spiriva, Advair inhaler, C-reactive protein, Acapella, physical therapy (PT). 2. Acute renal insufficiency. IV hydration initially provided. Currently improved. Followup BUN and creatinine. 3. Leukocytosis secondary to underlying pneumonia and possibly due to steroids. Antibiotic as above. Followup cultures. 4. Hypertension. Continue home medications. 5. Chest pain. Cardiac enzymes are negative, likely secondary to cough. Continue to monitor. 6. History of poorly differentiated squamous cell lung cancer, status post lobectomy by Dr. Perez. Surgical site well healed. Outpatient followup. 7. Obstructive sleep apnea. Continue CPAP. 8. History of abdominal liposarcoma, status post removal. Outpatient followup. 9. Obesity, complicating care. 10. Gastroesophageal reflux disease (GERD). Continue proton pump inhibitor (PPI). 11. Gout. Continue home medications. 12. Dyslipidemia. Continue home medications. 13. History of smoking. Counseling provided. 14. Deep vein thrombosis (DVT) prophylaxis. Heparin subcu. DISPOSITION PLANNING: Pending clinical improvement, likely discharge tomorrow.
[2016-02-14 20:35] VITALS: BP 131/72
[2016-02-14] MEDS: AZITHROMYCIN 500 MG, VIAL MATE ADAPTER 1 EACH in D5W 250 ML IV SCH (22:15)
[2016-02-14] MEDS: cefTRIAXone SOD 2 GM in D5W MINI-BAG PLUS 50 ML IV SCH (23:49)
[2016-02-15] MEDS: IPRATROPIUM 0.5MG/ALBUTEROL 2.5MG INH SOL UD 3ML (DUONEB)(J7620) NEB SCH ×3 (01:22→13:34)
[2016-02-15] MEDS: methylPREDNISolone INJ 40 MG/1 ML VIAL (J2920) IV SCH (04:13)
[2016-02-15] MEDS: HEPARIN SOD (PORCINE) 5000 UNITS/ML VIAL SC SCH (05:06)
[2016-02-15 05:35] VITALS: BP 150/98
[2016-02-15 06:01] LABS: BASO % 0.2 % (0.0-1.0); EOS % 0.3 % (0.0-3.0); LARGE UNSTAINED CELL # 0.2 K/mm3 (0.0-0.4); LARGE UNSTAINED CELL % 1.4 % (0.0-4.0); LYMPH # 0.9 K/mm3 (1.5-4.5); LYMPH % 7.8 % (24.0-44.0); MEAN CORPUSCULAR HEMOGLOBIN 31.9 pg (27.0-33.0); MEAN CORPUSCULAR HGB CONC 32.4 g/dl (32.0-36.5); MEAN CORPUSCULAR VOLUME 98.4 fl (80.0-96.0); MONO # 0.6 K/mm3 (0.0-0.8); MONO % 5.4 % (0.0-5.0); NEUTROPHILS # 9.8 K/mm3 (1.8-7.7); NEUTROPHILS % 84.9 % (36.0-66.0); PLATELET COUNT, AUTOMATED 252 k/mm3 (150-450); RED CELL DISTRIBUTION WIDTH 13.7 % (11.5-14.5); WHITE BLOOD COUNT 11.6 K/mm3 (4.0-10.0)
[2016-02-15 06:20] LABS: ALBUMIN 3.4 GM/DL (3.2-5.2); ALBUMIN/GLOBULIN RATIO 0.81 (1.00-1.93); BILIRUBIN,TOTAL 0.3 MG/DL (0.2-1.0); CALCIUM LEVEL 9.1 MG/DL (8.8-10.2); CREATININE FOR GFR 1.29 MG/DL (0.70-1.30); GLOMERULAR FILTRATION RATE 59.9 (>49); MAGNESIUM LEVEL 1.9 MG/DL (1.8-2.4); TOTAL PROTEIN 7.6 GM/DL (6.4-8.2)
[2016-02-15] MEDS: ADVAIR DISKUS 500/50 INH PWD INH SCH (07:05)
[2016-02-15] MEDS: TIOTROPIUM INHALER/CAPSULE (SPIRIVA) INH SCH (07:05)
[2016-02-15 07:40] VITALS: BP 124/88
[2016-02-15 10:06] VITALS: BP 133/71
[2016-02-15] MEDS: OMEPRAZOLE 20 MG CAP PO SCH (10:06)
[2016-02-15] MEDS: CARVedilol 6.25 MG TAB PO SCH (10:06)
[2016-02-15] MEDS: ALLOPURINOL 300 MG TAB PO SCH (10:06)
[2016-02-15] MEDS: ASPIRIN 81 MG CHEW TABLET PO SCH (10:06)
[2016-02-15] MEDS: rOPINIRole 1MG TAB PO SCH (10:06)
[2016-02-15] MEDS: PRAVASTATIN 20 MG TAB PO SCH (10:07)
[2016-02-15] MEDS: FERROUS SULFATE 325MG TAB PO SCH (10:07)
[2016-02-15] MEDS: MAGNESIUM OXIDE 400 MG TAB (MAG-OX) PO SCH (10:07)
[2016-02-15] MEDS ORDERED: BREO1INH3 INH (12:53)
[2016-02-15] MEDS ORDERED: LEVA500T PO (12:53)
[2016-02-15] MEDS ORDERED: PRED10TA PO (12:53)
--- NOTE | 2016-02-15 17:30 | DSES ---
DATE OF ADMISSION: 02/12/2016 DATE OF DISCHARGE: 02/15/2016 PRIMARY CARE PROVIDER: Dr. Alex Pike ARTIFICIAL PEARL MAKER: Dr. Kimball THORACIC SURGEON: Dr. Perez FINAL DIAGNOSES: 1. Acute chronic obstructive pulmonary disease exacerbation with worsening hypoxia. 2. Healthcare-associated bacterial pneumonia. 3. Acute renal insufficiency. 4. Leukocytosis. 5. Hypertension. 6. Chest pain. 7. History of poorly differentiated squamous cell lung cancer status post lobectomy. 8. Obstructive sleep apnea, on continuous positive airway pressure. 9. History of abdominal liposarcoma. 10. Obesity. 11. Gastroesophageal reflux disease. 12. Gout. 13. Dyslipidemia. 14. History of smoking. HISTORY OF PRESENT ILLNESS: This is a 65-year-old male with multiple past medical history, which include abdominal liposarcoma, poorly differentiated squamous cell carcinoma of the lung, obstructive sleep apnea, dyslipidemia, chronic obstructive pulmonary disease (COPD), morbid obesity, hypothyroidism, hypertension, history of smoking, dyslipidemia, adrenal adenoma, chronic kidney disease (CKD), presented to the emergency room due to worsening dyspnea for a day. Recently patient had a left upper lobe lobectomy by Dr. Perez. Was on intermittent oxygen at home. Patient on continuous positive airway pressure (CPAP) at night. Denies any fevers, chills, night sweats. With persistent cough. Denies any sick contact. Denies any nausea or vomiting. Reported increased in cough. Some productive yellow sputum. Reported chest discomfort as well that is substernal and also left side. Was febrile in the emergency department (ED), found to have a temperature of 100.6. HOSPITAL COURSE: Patient was admitted to hospitalist service. CT scan of the abdomen and lung appreciated. Cardiac enzymes were done and were negative. Patient started on antibiotics and steroids. Physical therapy was done. Patient was weaned off oxygen. Nebulizer treatments and inhaler provided. Patient's steroid was tapered. Patient's cultures were followed. Patient's symptoms progressively improved. CPAP was provided for obstructive sleep apnea. Deep vein thrombosis (DVT) prophylaxis provided. Dr. Perez was also informed. Patient's condition progressively improved and is ready for discharge for further treatment as outpatient. VITAL SIGNS: Temperature 96.7, pulse 85, respirations 18, blood pressure 133/71, pulse oximetry 96% on 2 liters nasal cannula. LABORATORY DATA: WBC 11.6, hemoglobin and hematocrit 12.2/37.7, platelets 252. Chemistry: Sodium 137, potassium 4, chloride 100, bicarbonate 28, BUN 32, creatinine 1.29. DISCHARGE MEDICATION: - Levaquin 500 mg by mouth daily - prednisone taper 10 mg tablets by mouth, four tablets for 2 days, three tablets for 2 days, then two tablets for 2 dys, then one tablet for 2 days, then stop. - Ventolin inhaler as needed - albuterol nebulizer every 4 hours as needed - allopurinol 300 mg by mouth daily - Coreg 6.25 mg by mouth twice a day - Breo Inhaler, inhalation daily - iron 325 mg by mouth daily - magnesium oxide 400 mg by mouth daily - omeprazole 20 mg by mouth daily - pravastatin 20 mg by mouth daily - Requip 1 mg by mouth daily and 2 mg by mouth at bedtime - Spiriva inhalation daily DISCHARGE INSTRUCTIONS: Patient is instructed to followup with thoracic surgery, personal injury attorney in 1-2 weeks, as well as oncologist. Patient already has an appointment next week. Followup with primary care provider in 7 days. Return to the hospital if symptoms worsen.
== END 2016-02-15 14:18 | disposition home or self-care (01) | DRG 190 ==
LOC: M ED 17:34 → M ED INP 02-12 01:41 → M MSPAV 02-12 02:25
PROVIDERS: ADMIT Emergency Medicine; ATTEND Hospitalist
DX: J44.1 Chronic obstructive pulmonary disease with (acute) exacerbation (principal); J15.9 Unspecified bacterial pneumonia; N17.9 Acute kidney failure, unspecified; G47.33 Obstructive sleep apnea (adult) (pediatric); E78.00 Pure hypercholesterolemia, unspecified; E66.9 Obesity, unspecified; E03.9 Hypothyroidism, unspecified; M10.9 Gout, unspecified; I12.9 Hypertensive chronic kidney disease with stage 1 through stage 4 chronic kidney disease, or unspecified chronic kidney disease; R07.89 Other chest pain; K21.9 Gastro-esophageal reflux disease without esophagitis; E86.0 Dehydration; Y95 Nosocomial condition; E78.5 Hyperlipidemia, unspecified; N18.9 Chronic kidney disease, unspecified; Z90.49 Acquired absence of other specified parts of digestive tract; Z90.2 Acquired absence of lung [part of]; Z79.51 Long term (current) use of inhaled steroids; Z85.118 Personal history of other malignant neoplasm of bronchus and lung; Z79.899 Other long term (current) drug therapy; Z87.891 Personal history of nicotine dependence; Z68.37 Body mass index [BMI] 37.0-37.9, adult; Z85.00 Personal history of malignant neoplasm of unspecified digestive organ

== ENCOUNTER → 2016-02-25 | Outpatient (REF) | payer MEDICARE, MEDICAID ==
[~2016-02-25] MED LIST changes: +IRON65TA PO; +LEVA500T PO; +MAGN400T5 PO
[2016-02-25 17:46] LABS: MEAN CORPUSCULAR HEMOGLOBIN 32.5 pg (27.0-33.0); MEAN CORPUSCULAR HGB CONC 32.2 g/dl (32.0-36.5); MEAN CORPUSCULAR VOLUME 100.7 fl (80.0-96.0); WHITE BLOOD COUNT 13.7 K/mm3 (4.0-10.0)
[2016-02-25 17:56] LABS: ANION GAP 11 MEQ/L (8-16); BLOOD UREA NITROGEN 40 MG/DL (7-18); CALCIUM LEVEL 9.7 MG/DL (8.8-10.2); CARBON DIOXIDE LEVEL 21 MEQ/L (21-32); CHLORIDE LEVEL 107 MEQ/L (98-107); CREATININE FOR GFR 1.19 MG/DL (0.70-1.30); GLOMERULAR FILTRATION RATE > 60.0 (>49); GLUCOSE, FASTING 157 MG/DL (80-110); POTASSIUM SERUM 4.6 MEQ/L (3.5-5.1); SODIUM LEVEL 139 MEQ/L (136-145)
== END ==
LOC: M SFHCLERA 13:34
PROVIDERS: ATTEND Family Medicine
DX: R06.02 Shortness of breath (principal); C34.90 Malignant neoplasm of unspecified part of unspecified bronchus or lung; N17.9 Acute kidney failure, unspecified; Z23 Encounter for immunization
CPT/HCPCS: 80048; 85027; 90471; 90732; G0463

== ENCOUNTER → 2016-03-04 | Outpatient (REF) | payer MEDICARE, MEDICAID ==
[2016-03-04 21:07] LABS: CALCIUM LEVEL 9.5 MG/DL (8.8-10.2); CREATININE FOR GFR 1.32 MG/DL (0.70-1.30); GLOMERULAR FILTRATION RATE 58.3 (>49); POTASSIUM SERUM 4.1 MEQ/L (3.5-5.1)
== END ==
LOC: M SFHCLERA 15:10
PROVIDERS: ATTEND Family Medicine
DX: N18.3 Chronic kidney disease, stage 3 (moderate) (principal)
CPT/HCPCS: 80048; G0463

== ENCOUNTER → 2016-03-11 | Outpatient (REF) | payer MEDICARE, MEDICAID ==
[2016-03-11 21:03] LABS: ALBUMIN 3.4 GM/DL (3.2-5.2); ALBUMIN/GLOBULIN RATIO 0.94 (1.00-1.93); ALKALINE PHOSPHATASE 83 U/L (45-117); ALT/SGPT 48 U/L (12-78); ANION GAP 9 MEQ/L (8-16); AST/SGOT 25 U/L (15-37); BILIRUBIN,TOTAL 0.2 MG/DL (0.2-1.0); BLOOD UREA NITROGEN 31 MG/DL (7-18); CALCIUM LEVEL 8.8 MG/DL (8.8-10.2); CARBON DIOXIDE LEVEL 25 MEQ/L (21-32); CHLORIDE LEVEL 103 MEQ/L (98-107); CREATININE FOR GFR 1.12 MG/DL (0.70-1.30); GLOMERULAR FILTRATION RATE > 60.0 (>49); GLUCOSE, FASTING 131 MG/DL (80-110); SODIUM LEVEL 137 MEQ/L (136-145)
[2016-03-11 21:21] LABS: MEAN CORPUSCULAR HEMOGLOBIN 32.5 pg (27.0-33.0); MEAN CORPUSCULAR HGB CONC 32.7 g/dl (32.0-36.5); MEAN CORPUSCULAR VOLUME 99.4 fl (80.0-96.0); RED CELL DISTRIBUTION WIDTH 13.9 % (11.5-14.5); WHITE BLOOD COUNT 8.1 K/mm3 (4.0-10.0)
== END ==
LOC: M SFHCLERA 15:29
PROVIDERS: ATTEND Family Medicine
DX: R79.9 Abnormal finding of blood chemistry, unspecified (principal); R68.89 Other general symptoms and signs
CPT/HCPCS: 80053; 81001; 85027; 87086; G0463

== ENCOUNTER 2016-04-22 06:00 | Emergency (ER) | payer MEDICARE, MEDICAID ==
[~2016-04-22] VITALS: Ht 193 cm; Wt 138.8 kg
[2016-04-22 06:37] LABS: BASO % 0.3 % (0.0-1.0); EOS # 0.2 K/mm3 (0.0-0.50); EOS % 1.1 % (0.0-3.0); LARGE UNSTAINED CELL # 0.2 K/mm3 (0.0-0.4); LARGE UNSTAINED CELL % 1.2 % (0.0-4.0); LYMPH # 0.8 K/mm3 (1.5-4.5); LYMPH % 5.3 % (24.0-44.0); MEAN CORPUSCULAR HEMOGLOBIN 32.1 pg (27.0-33.0); MEAN CORPUSCULAR HGB CONC 33.1 g/dl (32.0-36.5); MONO # 0.8 K/mm3 (0.0-0.8); MONO % 5.4 % (0.0-5.0); NEUTROPHILS # 12.7 K/mm3 (1.8-7.7); NEUTROPHILS % 86.7 % (36.0-66.0); PLATELET COUNT, AUTOMATED 227 k/mm3 (150-450); RED CELL DISTRIBUTION WIDTH 14.1 % (11.5-14.5); WHITE BLOOD COUNT 14.7 K/mm3 (4.0-10.0)
[2016-04-22 06:49] LABS: ANION GAP 8 MEQ/L (8-16); BLOOD UREA NITROGEN 20 MG/DL (7-18); CALCIUM LEVEL 8.9 MG/DL (8.8-10.2); CARBON DIOXIDE LEVEL 28 MEQ/L (21-32); CHLORIDE LEVEL 102 MEQ/L (98-107); CREATININE FOR GFR 1.28 MG/DL (0.70-1.30); GLOMERULAR FILTRATION RATE > 60.0 (>49); GLUCOSE, FASTING 150 MG/DL (80-110); SODIUM LEVEL 138 MEQ/L (136-145)
[2016-04-22 07:06] LABS: VENOUS BASE EXCESS -0.7 (-2.0-2.0); VENOUS O2 SATURATION 97.6 % (60.0-80.0); VENOUS PARTIAL PRESSURE O2 97.7 mmHg (30.0-50.0); VENOUS STANDARD HCO3 23.9 MEQ/L; VENOUS TOTAL CO2 24.2 MEQ/L (24.0-28.0)
[2016-04-22] MEDS ORDERED: MORPHINE 4 MG/ML 1ML SYRINGE IV PRN (07:45)
[2016-04-22] MEDS ORDERED: ONDANSETRON 4MG/2ML VIAL (J2405) IV ONE (07:45)
[2016-04-22] MEDS ORDERED: NS 1,000 ML IV SCH (07:45)
[2016-04-22 08:10] LABS: ALBUMIN 3.5 GM/DL (3.2-5.2); ALBUMIN/GLOBULIN RATIO 0.85 (1.00-1.93); ALKALINE PHOSPHATASE 65 U/L (45-117); ALT/SGPT 41 U/L (12-78); AST/SGOT 23 U/L (15-37); BILIRUBIN,DIRECT < 0.1 MG/DL (0.0-0.2); BILIRUBIN,TOTAL 0.4 MG/DL (0.2-1.0); TOTAL PROTEIN 7.6 GM/DL (6.4-8.2)
--- NOTE | 2016-04-22 08:40 | REP ---
SITTING AP PORTABLE CHEST X-RAY: Single view. HISTORY: Dyspnea and cough. COMPARISON STUDY: February 11, 2016. FINDINGS: There is mild elevation of the left hemidiaphragm again noted with chronic pleuroparenchymal opacity in the left base and volume loss in the left hemithorax as on earlier film. No acute infiltrate is seen on the left or the right. Heart size is unchanged. IMPRESSION: Chronic changes left hemithorax. No acute disease seen. Signed by Irving Gillette MD 04/22/2016 01:07 P
[2016-04-22] MEDS ORDERED: GASTROGRAFIN SOLUTION 30ML PO ONE (08:45)
[2016-04-22] MEDS ORDERED: GASTROGRAFIN SOLUTION 30ML (Q9963) As Ordered ONE (08:51)
[2016-04-22] MEDS ORDERED: GASTROGRAFIN SOLUTION 30ML (Q9963) PO ONE (09:15)
--- NOTE | 2016-04-22 09:59 | ECGEPIP ---
Stationary ECG Study [facility] - ED Test Date: 2016-04-22 Pat Name: ARIN GUADARRAMA Department: Room: - Gender: M Turn Down Man: JT : 1950 Requested By: JENNIFER Ford Order Number: [id number] Reading MD: Meme Bradley Measurements Intervals [place] Rate: 101 P: 37 MI: 169 QRS: 30 QRSD: 93 T: 24 QT: 325 QTc: 422 Interpretive Statements SINUS TACHYCARDIA NONSPECIFIC T-WAVE ABNORMALITY ABNORMAL RHYTHM ECG DECREASED RATE 02/11/16 Electronically Signed On 04-22-2016 9:09:49 EDT by Meme Bradley
--- NOTE | 2016-04-22 11:01 | REP ---
CT ABDOMEN WITHOUT IV CONTRAST: 04/22/2016. Comparison: 02/11/2016. Clinical history: Left lower quadrant pain. The patient declined IV contrast with his history of prior right nephrectomy. Technique: Oral Gastrografin mixture 10 mL in 290 mL of flavored water given for two doses for our bowel contrast protocol. Coronal and sagittal reconstructions provided. CT abdomen: Lung bases show some dependent atelectatic changes and linear subsegmental atelectasis left greater than right. There is some elevation of the left diaphragm and a left pleural effusion is noted. I do not see a right effusion or definite mass. Curvilinear fibroatelectatic change noted in the right base. Heart is not grossly enlarged. There is no pericardial thickening or effusion. There are a few calcifications in the coronary arteries. The liver shows diffuse fatty infiltration but is not grossly enlarged with a vertical diameter of 17 cm in the midclavicular line. Left hepatic lobe smooth and mildly prominent. The spleen is not enlarged. There is no focal lesion or ascites in the upper abdomen. The gallbladder is absent with clips in the fossa. Visualized pancreas shows no mass or ductal dilatation. No peripancreatic inflammatory change. The right adrenal gland and kidney have been resected. The left adrenal gland is unremarkable. The left kidney shows some minor perinephric stranding, it has a length of about 13 cm. There is no stone or hydronephrosis. I see no hydroureter with the ureters seen to the bladder without stone or dilatation. The colon shows some scattered diverticula in the abdomen proper. Small bowel loops are not abnormally dilated, they have normal wall thickness. I do not see signs of obstruction or mass. There is no infiltration of the mesentery. The abdominal aorta shows some atherosclerotic calcifications without aneurysm. There are is no pathologic sized periaortic or mesenteric lymphadenopathy. Lung window review of all CT slices in the abdomen and pelvis shows no perforation or free air. Bone windows show some vacuum phenomenon at the L4-5 and L1-2 level, there is disc space narrowing at those two levels and at L5-S1. No compression deformity is seen. There are marginal osteophytes throughout the visible thoracic and lower lumbar spine. Lumbar facets with degenerative disc change particularly in the lower lumbar levels. Visualized ribs are intact. CT pelvis: There are degenerative changes the hips, left greater than right with more narrowing of the left hip joint space. Rim osteophytes of the femoral head and acetabular roof are noted. There are old post-traumatic changes in the left acetabula. I see no acute fracture. Symphysis pubis and pubic rami otherwise intact. Bladder is only partially filled but without stone, wall thickening or mass. The distal left colon indicates the rectum collapsed, the rectum goes up and curves back over and down. Sigmoid shows no sign of colitis or diverticulitis. Rectum collapsed and without inflammatory changes in the adjacent fat. Healed midline incision in the infraumbilical region There is one small supraumbilical hernia with only omental fat within it. Scarring in the infraumbilical region without hernia. The inguinal canal shows omental fat distending it bilaterally, left greater than right, but no bowel herniation. Surgical clip at the cecal tip from prior appendectomy. No ascites or adenopathy. Impression: 1. Fatty liver change with a solitary right kidney, prior cholecystectomy, appendectomy and abdominal wall surgical changes. 2. Tiny supraumbilical abdominal wall hernia with omental fat only. 3. No splenomegaly and the pancreas, left adrenal gland and the aorta were normal for age. 4. There is no renal stone, hydronephrosis, hydroureter, or mass in the solitary left kidney. 5. No colitis, diverticulitis, stricture or mass. No free air. Advanced degenerative changes of the spine and hips. Signed by Avi Dueñas MD 04/22/2016 05:13 P
[2016-04-22] MEDS ORDERED: TRAM50TA2 PO (13:22)
[2016-04-22 13:37] VITALS: BP 131/62
== END 2016-04-22 13:55 | disposition home or self-care (01) ==
LOC: M ED 07:48
DX: R10.84 Generalized abdominal pain (principal); E66.9 Obesity, unspecified; I10 Essential (primary) hypertension; N18.9 Chronic kidney disease, unspecified; J44.9 Chronic obstructive pulmonary disease, unspecified; G47.30 Sleep apnea, unspecified; Z85.828 Personal history of other malignant neoplasm of skin; F17.200 Nicotine dependence, unspecified, uncomplicated; Z90.49 Acquired absence of other specified parts of digestive tract; K43.9 Ventral hernia without obstruction or gangrene; R91.8 Other nonspecific abnormal finding of lung field; Z79.899 Other long term (current) drug therapy; Z88.8 Allergy status to other drugs, medicaments and biological substances

== ENCOUNTER 2016-04-24 18:39 | Inpatient (IN) | payer MEDICARE, MEDICAID ==
[~2016-04-24] VITALS: Ht 193 cm; Wt 151.4 kg
[~2016-04-24 18:39] MED LIST changes: -ACET50TAOT PO; -FERR325T PO; -VITMTA PO
[2016-04-24] MEDS ORDERED: NITROGLYCERIN 2% OINT 1 GM *U/D* PKT TOP ONE (19:45)
[2016-04-24] MEDS ORDERED: FUROSEMIDE 40 MG/4 ML VIAL (J1940) IV ONE (19:45)
[2016-04-24 19:59] LABS: BASO % 0.3 % (0.0-1.0); EOS # 0.2 K/mm3 (0.0-0.50); EOS % 1.7 % (0.0-3.0); LARGE UNSTAINED CELL # 0.2 K/mm3 (0.0-0.4); LYMPH # 0.9 K/mm3 (1.5-4.5); MEAN CORPUSCULAR HEMOGLOBIN 32.3 pg (27.0-33.0); MEAN CORPUSCULAR VOLUME 97.8 fl (80.0-96.0); MONO # 0.6 K/mm3 (0.0-0.8); MONO % 6.4 % (0.0-5.0); NEUTROPHILS # 7.7 K/mm3 (1.8-7.7); NEUTROPHILS % 81.6 % (36.0-66.0); PLATELET COUNT, AUTOMATED 177 k/mm3 (150-450); RED CELL DISTRIBUTION WIDTH 14.1 % (11.5-14.5); WHITE BLOOD COUNT 9.5 K/mm3 (4.0-10.0)
[2016-04-24 20:07] LABS: ANION GAP 8 MEQ/L (8-16); BLOOD UREA NITROGEN 17 MG/DL (7-18); CALCIUM LEVEL 8.5 MG/DL (8.8-10.2); CARBON DIOXIDE LEVEL 30 MEQ/L (21-32); CHLORIDE LEVEL 98 MEQ/L (98-107); CREATININE FOR GFR 1.23 MG/DL (0.70-1.30); GLOMERULAR FILTRATION RATE > 60.0 (>49); GLUCOSE, FASTING 111 MG/DL (80-110); POTASSIUM SERUM 3.8 MEQ/L (3.5-5.1); SODIUM LEVEL 136 MEQ/L (136-145)
[2016-04-24 20:19] LABS: VENOUS BASE EXCESS 4.3 (-2.0-2.0); VENOUS O2 SATURATION 95.1 % (60.0-80.0); VENOUS PARTIAL PRESSURE CO2 47.6 mmHg (38.0-50.0); VENOUS PARTIAL PRESSURE O2 75.7 mmHg (30.0-50.0); VENOUS STANDARD HCO3 28.2 MEQ/L; VENOUS TOTAL CO2 31.2 MEQ/L (24.0-28.0)
[2016-04-24] MEDS ORDERED: ONDANSETRON 4MG/2ML VIAL (J2405) IV PRN (21:45)
[2016-04-24] MEDS ORDERED: VITMTA PO (21:51)
[2016-04-24] MEDS ORDERED: TRAM50TA2 PO (21:51)
[2016-04-24] MEDS ORDERED: BREO1INH3 INH (21:51)
[2016-04-24] MEDS ORDERED: ACET50TAOT PO (21:51)
[2016-04-24] MEDS ORDERED: FERR325T PO (21:51)
[2016-04-24] MEDS ORDERED: ALBUTEROL 90 MCG/ACT 8GM HFA INHALER INH PRN (22:45)
--- NOTE | 2016-04-24 22:50 | HPEPDOC ---
General Date of Admission Apr 24, 2016 at 21:45 Chief Complaint The patient is a 65-year-old male Presented to the ER with complaints of shortness of breath and productive cough History of Present Illness Patient is a 65 year old male with a PMHx COPD on 3L O2 at night, LUCA on CPAP, Gout, HTN, DLP, RLS, CKD3, Diastolic CHF (EF: 75%, DD1), Hx of liposarcoma and Hx of lung cancer (s/p radiation and surgery) who presented to the ED with complaints of shortness of breath and proroducitve cough since Thursday night. Patient notes that he has been having worsening shortness of breath and a green productive cough since Thursday. He came to the ER for evaluation and was sent home with pain medications at that time. He reports that he has some left sided chest and left abdominal pain, reports the pain as a achy type at 5/10. He denies any fevers at home. He does report orthopnea at home and uses a wedge to sleep. He reports several night time awakenings because of shortness of breath. He occasionally experiences leg swelling. He denies nausea, vomiting, constipation, urinary symptoms or dizziness. He does report a 2 days history of diarrhea (no blood). Home Medications Scheduled Allopurinol (Zyloprim) 300 Mg Tab 300 MG PO DAILY (Reported) Carvedilol (Carvedilol) 6.25 Mg Tab 6.25 MG PO BID (Reported) Ferrous Sulfate (Ferrous Sulfate) 325 Mg Tab 325 MG PO DAILY (Reported) Fluticasone/Vilanterol (Breo Ellipta 200-25 Mcg/INH) 1 Inh Inh 1 PUFF INH DAILY (Reported) Magnesium Oxide (Magnesium Oxide 400) 400 Mg Tab 400 MG PO DAILY (Reported) Multivitamins *[facility]* (Thera M Plus *[facility]*) 1 Tab Tab 1 TAB PO DAILY (Reported) Omeprazole (Omeprazole) 20 Mg Cap 20 MG PO DAILY (Reported) Pravastatin Sodium (Pravastatin Sodium) 20 Mg Tab 20 MG PO DAILY (Reported) Ropinirole Hydrochloride (Ropinirole HCl) 1 Mg Tab 1 MG PO DAILY (Reported) 3MG TOTAL DAILY Ropinirole Hydrochloride (Ropinirole HCl) 1 Mg Tab 2 MG PO QHS (Reported) 3MG TOTAL DAILY Tiotropium [place] Monohydrate (Spiriva Respimat) 2.5 Mcg/Act Spr 2 INHALATION INH DAILY (Reported) Scheduled PRN Acetaminophen (Acetaminophen) 500 Mg Tab 1,000 MG PO Q6H PRN PRN PAIN (Reported ) Albuterol Sulfate (Ventolin Hfa) 200 Puff/8 Gm Aers 2 PUFF INH QID PRN PRN SHORTNESS OF BREATH (Reported) Albuterol Sulfate (Albuterol Sulfate) 2.5 Mg/3 Ml Nebu 2.5 MG INH QID PRN PRN SHORTNESS OF BREATH (Reported) Tramadol HCl (Tramadol HCl) 50 Mg Tab 25 MG PO Q12H PRN PRN PAIN (Reported) Allergies Coded Allergies: Hexachlorophene (Verified Allergy, Intermediate, ITCHING, 10/25/15) Past Medical History Medical History COPD on 3L O2 at night, LUCA on CPAP, Gout, HTN, DLP, RLS, CKD3, Diastolic CHF ( EF: 75%, DD1), Hx of liposarcoma and Hx of lung cancer (s/p radiation and surgery) Surgical History Liposarcoma 02/2015 with resection of right kidney and adrenal gland, and portion of right colon Right upper lobectomy 12/2014 lung cancer Right lower lobe radiation Fused left ankle Cholecystectomy Family History - Mother with DM, liver cancer - Father with emphysema and heart disease Social History - Denies the use of alcohol or illicit drugs; Quit smoking 3 years ago, smoker of 50 years at 1.5ppd - Denies recent travel or sick contacts - Lives alone - 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; 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 Review of Symptoms Other systems Constitutional: Denies weight loss, change in appetite, or recent trauma Eyes: No visual changes or eye pain Ears, Nose, Throat: Denies nose bleeds, or difficulty swallowing Cardiovascular: Positive chest pain, No sweating, or orthopnea Respiratory: Positive cough, wheezing, and shortness of breath GI: Bhupendra nausea, vomiting, diarrhea or constipation, Positive abdominal pain : Denies pain with urination or frequency Musculoskeletal: Denies joint pain or swelling Neuro / Psych: Denies muscle weakness or sensory loss Skin: No skin rashes noted All other review of systems negative; otherwise stated in history of present illness Screening: - Colonoscopy done 2015 for found liposarcoma Vital Signs - Vitals: BP 135/75, HR 100, RR 16, Sat 99%NC2L, Temp 98.8F - General: Lying in bed, No acute distress, Speaking in full sentences, AAOx3 - HEENT: NC, AT, PERRLA, EOMI, No JVD - CVS: RRR, +S1S2, - Murmurs / rubs / gallops - Lungs: Decreased lung sounds at left lower base, +Rhonchi at left lung base, No appreciable crackles - Abdomen: Soft, Non-distended, Mild tenderness at left UQ, + Bowel sounds x 4 - Extremities: + PPx4, No lower extremity edema, No calf tenderness - Neuro: No focal motor or sensory deficit - Skin: No visible rashes Laboratory Data Labs 24H Laboratory Tests 2 04/24/16 19:26: Anion Gap 8, B-Type Natriuretic Peptide 95.2, White Blood Count 9.5, Red Blood Count 3.77L, Hemoglobin 12.2L, Hematocrit 36.9L, Mean Corpuscular Volume 97.8H, Mean Corpuscular Hemoglobin 32.3, Mean Corpuscular Hemoglobin Concent 33.0, Red Cell Distribution Width 14.1, Platelet Count 177, Neutrophils (%) (Auto) 81.6H, Lymphocytes (%) (Auto) 8.0L, Monocytes (%) (Auto) 6.4H, Eosinophils (%) (Auto) 1.7, Basophils (%) (Auto) 0.3, Neutrophils # (Auto) 7.7, Lymphocytes # (Auto) 0.9L, Monocytes # (Auto) 0.6, Eosinophils # (Auto) 0.2, Basophils # (Auto) 0.0, Blood Urea Nitrogen 17, Creatinine 1.23, Sodium Level 136, Potassium Level 3.8, Chloride Level 98, Carbon Dioxide Level 30, Calcium Level 8.5L, Total Creatine Kinase 57, Creatine Kinase MB 2.1, Creatine Kinase MB Relative Index 3.68, Glomerular Filtration Rate > 60.0, Large Unclassified Cells # 0.2, Large Unclassified Cells % 2.0, Troponin I < 0.02 04/24/16 20:02: Blood Gas Bicarbonate Standard 28.2, Lactic Acid (Sepsis) 1.2, Venous Blood Base Excess 4.3H, Venous Blood pH 7.413, Venous Blood Partial Pressure CO2 47.6 , Venous Blood Partial Pressure O2 75.7H, Venous Blood Total Carbon Dioxide 31.2H, Venous Blood HCO3 29.7H, Venous Blood Oxygen Saturation 95.1H CBC/BMP Laboratory Tests 04/24/16 19:26 Calcium Level 8.5 L, Total Creatine Kinase 57, Red Blood Count 3.77 L, Mean Corpuscular Volume 97.8 H, Mean Corpuscular Hemoglobin 32.3, Mean Corpuscular Hemoglobin Concent 33.0, Red Cell Distribution Width 14.1, Neutrophils (%) (Auto ) 81.6 H, Lymphocytes (%) (Auto) 8.0 L, Monocytes (%) (Auto) 6.4 H, Eosinophils (%) (Auto) 1.7, Basophils (%) (Auto) 0.3, Neutrophils # (Auto) 7.7, Lymphocytes # (Auto) 0.9 L, Monocytes # (Auto) 0.6, Eosinophils # (Auto) 0.2, Basophils # ( Auto) 0.0 Microbiology Microbiology 04/24/16 Blood Culture, Received Pending 04/24/16 Blood Culture, Received Pending Plan / VTE VTE Prophylaxis Ordered?: Yes Plan Plan Dyspena likely 2/2 left pleural effusion and possible CAP, possible diastolic dysfunction CHF - Presented with SOB and productive cough since Thursday - Physical reveals decreased breath sounds at left lung base and rhonchi - No significant elevation in BNP - In ER patient has received Nitroglycerin and Furosemide 40 IV - CXR shows some pleural effusion and opacification - Will get CT chest to confirm - Will keep on strict ins/outs, daily weights and head of bed elevation - Will check blood cultures, sputum cultures and respiratory panel - Will start ceftriaxone and azithromycin Upper abdominal pain / lower chest pain on the left possibly 2/2 referred pain , less likely GI etiology, less likely cardiac etiology - EKG does not reveal any ischemic changes, not changed from 2 days ago - Tropoin first set is negative - CT abdomen 04/22: fatty liver change, supraumbilical abdominal wall hernia, no splenomegaly, no renal stone / hydronephrosis / mass at left kidney - Will treat for CAP (See #1) Macrocytic anemia - Hg appears to be at baseline; Hg on 04/22 was 14.6 however likely hemoconcentrated - No evidence of bleeding at this time - Will monitor for now COPD on 3L O2 at night - no evidence of exacerbation - c/w albuterol inhaled therapy - c/w Spiriva LUCA on CPAP - allow home CPAP use Gout - c/w allopurinol HTN - c/w carvedilol with holding parameters DLP - c/w pravavastatin RLS - c/w ropinarole CKD3 - Cr is at baseline Hx of liposarcoma - s/p resection of partial colon and right kidney + adrenal gland Hx of lung cancer - s/p radiation and surgery GERD - c/w protonix DVT prophylaxis - Will start heparin ADALID RAMIREZ MD Apr 24, 2016 22:50
--- NOTE | 2016-04-24 23:30 | REPUSA ---
CLINICAL HISTORY: Evaluate effusion. TECHNIQUE: Multiple axial CT images were obtained through chest without IV contrast material. COMMENTS: Upper lobe predominant emphysema is seen. There is a loculated left pleural effusion. There is larg e partially loculated left pleural effusion. There is a consolidation at the left lung base may repr esent atelectasis versus pneumonia. Rounded atelectasis is noted at the right lung base. There is no evidence of pleural or parenchymal-based mass. There are no pleural effusions. There is no evidence of hilar or mediastinal lymphadenopathy. The heart and great vessels are within normal limits. There is diffuse hepatic hypoattenuation compatible with fatty infiltration. The right kidney is not imaged. Visualized left kidney is grossly unremarkable. Status post cholecystectomy. The spleen i s unremarkable. The visualized pancreas is of normal contour and attenuation characteristics. There is no evidence of adrenal mass. The visualized portions of the kidneys present no abnormalities. The bony structures are free of lytic or blastic lesions. Multilevel degenerative changes are seen i nvolving the thoracic spine. Scattered calcifications are seen involving the aorta and visualized estela or branches compatible with atherosclerosis. IMPRESSION: 1. Upper lobe predominant emphysema is seen. 2. There is large partially loculated left pleural effusion. 3. There is a consolidation at the left lung base may represent atelectasis versus pneumonia. 4. Rounded atelectasis is noted at the right lung base. 5. Fatty liver. Thank you for your kind referral of this patient. We appreciate the opportunity to participate in th is patient's care.
[2016-04-25] VITALS (22 sets, daily range): BP systolic 100–173; BP diastolic 57–96; PULSE 84–99; O2SAT 96
[2016-04-25] MEDS: rOPINIRole 1MG TAB PO SCH ×3 (00:09→21:34)
[2016-04-25] MEDS: CARVedilol 6.25 MG TAB PO SCH ×3 (00:10→21:34)
[2016-04-25] MEDS: AZITHROMYCIN INJ 500 MG, VIAL MATE ADAPTER 1 EACH in D5W 250 ML IV SCH (00:11)
[2016-04-25] MEDS ORDERED: cefTRIAXone SOD 2 GM VIAL (J0696) IM SCH (01:00)
[2016-04-25] MEDS: cefTRIAXone SOD 2 GM in D5W MINI-BAG PLUS 50 ML IV SCH (01:13)
[2016-04-25] MEDS: ACETAMINOPHEN TAB 650MG DOSE (2X325MG) PO PRN ×2 (01:14→09:42)
[2016-04-25] MEDS: HEPARIN SOD (PORCINE) 5000 UNITS/ML VIAL SC SCH ×3 (06:33→21:34)
[2016-04-25 07:10] LABS: BASO % 0.3 % (0.0-1.0); EOS # 0.2 K/mm3 (0.0-0.50); EOS % 1.9 % (0.0-3.0); LARGE UNSTAINED CELL # 0.2 K/mm3 (0.0-0.4); LARGE UNSTAINED CELL % 2.7 % (0.0-4.0); LYMPH # 0.9 K/mm3 (1.5-4.5); LYMPH % 8.3 % (24.0-44.0); MEAN CORPUSCULAR HEMOGLOBIN 32.5 pg (27.0-33.0); MEAN CORPUSCULAR VOLUME 98.5 fl (80.0-96.0); MONO # 0.6 K/mm3 (0.0-0.8); MONO % 7.5 % (0.0-5.0); NEUTROPHILS # 6.7 K/mm3 (1.8-7.7); NEUTROPHILS % 79.3 % (36.0-66.0); PLATELET COUNT, AUTOMATED 200 k/mm3 (150-450); WHITE BLOOD COUNT 8.5 K/mm3 (4.0-10.0)
[2016-04-25 07:33] LABS: ALBUMIN 2.8 GM/DL (3.2-5.2); ALBUMIN/GLOBULIN RATIO 0.62 (1.00-1.93); BILIRUBIN,TOTAL 0.4 MG/DL (0.2-1.0); CREATININE FOR GFR 1.35 MG/DL (0.70-1.30); GLOMERULAR FILTRATION RATE 56.8 (>49); MAGNESIUM LEVEL 1.8 MG/DL (1.8-2.4); POTASSIUM SERUM 3.5 MEQ/L (3.5-5.1); TOTAL PROTEIN 7.3 GM/DL (6.4-8.2)
--- NOTE | 2016-04-25 07:53 | REP ---
PA and lateral chest: Comparison is a portable chest dated 04/22/2016. Left hemidiaphragm appears elevated. There is obscuration of the left hemidiaphragm. These findings are unchanged and suggestive of a left lower lobe infiltrate and /or effusion. On the CT scan performed on 04/24/2016 a 10:22 p.m., there was a large left pleural effusion with a compression atelectasis of the adjacent lung. There is increased radiodensity inferiorly in the right lung. On the chest CT there was discoid atelectasis in the left lower lobe. Cardiac size appears enlarged. The yesenia, mediastinum, and bony thorax are unremarkable. Signed by Jorden Mccauley MD 04/25/2016 07:44 A
[2016-04-25] MEDS: TIOTROPIUM INHALER/CAPSULE (SPIRIVA) INH SCH (08:27)
--- NOTE | 2016-04-25 08:56 | ECGEPIP ---
Stationary ECG Study [facility] - ED Test Date: 2016-04-24 Pat Name: ARIN GUADARRAMA Department: Room: [place] [address] Gender: M Operations Director: : 1950 Requested By: DENIS MONTENEGRO Order Number: [id number] Reading MD: Meme Bradley Measurements Intervals [place] Rate: 99 P: 30 RI: 165 QRS: -8 QRSD: 93 T: 13 QT: 323 QTc: 415 Interpretive Statements SINUS RHYTHM POSSIBLE LEFT ATRIAL ENLARGEMENT NONSPECIFIC T-WAVE ABNORMALITY SIMILAR 04/22/16 Electronically Signed On 04-25-2016 8:56:06 EDT by Meme Bradley
[2016-04-25] MEDS: DOCUSATE SODIUM 100 MG CAP PO SCH ×2 (09:00→21:34)
[2016-04-25] MEDS: MOM 30ML SUSPENSION UDC PO SCH (09:00)
[2016-04-25] MEDS: PANTOPRAZOLE 40MG TAB (PROTONIX) PO SCH (09:36)
[2016-04-25] MEDS: MULTIVITAMINS/MINERALS THERAP 1 TAB PO SCH (09:36)
[2016-04-25] MEDS: PRAVASTATIN 20 MG TAB PO SCH (09:37)
[2016-04-25] MEDS: ALLOPURINOL 300 MG TAB PO SCH (09:37)
[2016-04-25] MEDS: FERROUS SULFATE 325MG TAB PO SCH (09:37)
[2016-04-25] MEDS: MAGNESIUM OXIDE 400 MG TAB (MAG-OX) PO SCH (09:42)
--- NOTE | 2016-04-25 12:38 | IPN ---
DATE: 04/25/2016 65-year-old seen at bedside, resting somewhat comfortably. He does have family present. Has had some intermittent productive sputum. He does have a known history of chronic obstructive pulmonary disease (COPD) and is on 3 liters. No nausea or vomiting. OBJECTIVE: Temperature is 97.1, pulse is 99 and regular, respiratory rate 18, blood pressure 129/78, SpO2 is 94% on 3 liters. GENERAL: The patient appears to be in no acute distress. He is pleasant. HEENT: Unremarkable. LUNGS: Diminished bilateral basilar breath sounds, occasional expiratory wheeze that clears with cough. HEART: Regular rate and rhythm. ABDOMEN: Soft. EXTREMITIES: No edema or calf tenderness. LABORATORY DATA White count is 8.5, hemoglobin 12.4, platelets 200,000. Sodium is 137, potassium 3.5, chloride 95, bicarbonate 31, anion gap 11. BUN 19. Creatinine 1.35, glucose is 129, lactic acid 1.2, AST 15, ALT 22, alkaline phosphatase is 51, albumin is 2.8. Respiratory virus panel is negative. Cultures pending times two. Chest CT on admission: Upper lobe predominance of nodes, large, partially loculated left pleural effusion and consolidation of the left lung base, possibly atelectasis versus pneumonia. ASSESSMENT AND PLAN: 1. Dyspnea, likely secondary to pleural effusion with possible empyema and associated community-acquired pneumonia. The patient will be admitted to progressive care unit (PCU). Continue with antibiotics, including Rocephin and azithromycin. Sputum cultures and blood cultures are pending. I did request Dr. Perez to see the patient on consult to see if he would require a chest thoracotomy. 2. Upper abdominal discomfort, possibly referred pain from his pulmonary issues. His cardiac enzymes remain unremarkable. EKG did not have any significant findings. CT of the abdomen was suggestive of fatty liver. Supraumbilical abdominal wall hernia. No splenomegaly. No renal stone. No hydronephrosis. 3. Macrocytic anemia. We will continue to follow his hemoglobin and hematocrit. 4. Chronic obstructive pulmonary disease (COPD), which is longstanding with chronic hypoxia requiring oxygen supplementation. He is chronically on 3 liters of oxygen at home. Continue with inhalers and DuoNebs as needed. 5. Obstructive sleep apnea with CPAP. He may use his CPAP machine while in the hospital. 6. Gout. Continue allopurinol. 7. Hypertension. Continue carvedilol with hold parameters. 8. Hyperlipidemia. Continue pravastatin. 9. Restless leg syndrome, on ropinirole. 10. Chronic kidney disease stage III, creatinine is at baseline. 11. History of liposarcoma resection with partial colon and right kidney, as well as adrenal gland. No current issues. 12. Prior history of lung cancer, status post radiation and surgical therapy. 13. Gastroesophageal reflux disease (GERD). Continue on Protonix. 14. Deep vein thrombosis (DVT) prophylaxis. On subcutaneous heparin. DISPOSITION: Appreciate Dr. Perez's input. We will continue with supportive measures as outlined above. MTDD
[2016-04-25] MEDS ORDERED: BISACODYL 10 MG SUPP PR PRN (13:00)
[2016-04-25] MEDS ORDERED: LIDOCAINE 1% MDV 20ML VIAL SC ONE (13:00)
[2016-04-25] MEDS ORDERED: LEVALBUTEROL 1.25 MG/0.5 ML CONCENTRATE NEB NEB PRN (13:00)
[2016-04-25] MEDS ORDERED: NORCO, ANEXSIA 5/325MG TABLET (HYDROcodone/ACETAMINOPHEN) PO PRN (13:00)
[2016-04-25] MEDS ORDERED: LIDOCAINE 1% MDV 20ML VIAL As Ordered ONE (13:03)
[2016-04-25] MEDS ORDERED: MIDAZOLAM INJ 2 MG/2 ML VIAL (J2250) As Ordered ONE ×2 (13:04→13:05)
[2016-04-25] MEDS ORDERED: FLUMAZENIL 0.5 MG/5 ML VIAL As Ordered ONE (13:08)
[2016-04-25] MEDS ORDERED: MIDAZOLAM INJ 2 MG/2 ML VIAL (J2250) IV STA ×2 (14:30)
[2016-04-25] MEDS: LEVALBUTEROL 1.25 MG/0.5 ML CONCENTRATE NEB NEB SCH ×2 (14:37→20:03)
[2016-04-25 15:07] LABS: ABG BASE EXCESS 7.2 (-2.0-2.0); ABG HCO3 32.9 MEQ/L (22.0-26.0); ABG PARTIAL PRESSURE CO2 51.3 mmHg (35.0-45.0); ABG PARTIAL PRESSURE O2 135.5 mmHg (75.0-100.0); ABG STANDARD HCO3 31.1 MEQ/L (22.0-26.0); ABG TOTAL CO2 34.5 MEQ/L (23.0-31.0); ABG pH (ARTERIAL) 7.425 UNITS (7.350-7.450)
--- NOTE | 2016-04-25 15:48 | REP ---
Portable chest x-ray: Single view. History: Status post chest tube placement. Comparison chest x-ray is from April 24, 2016. Findings: A left chest tube is seen in place at the inferior aspect of the left hemithorax. The left hemidiaphragm remains elevated. There is no evidence of pneumothorax. There is mild discoid atelectasis or linear scarring in the right base, unchanged. EKG electrodes are seen. Impression: Left chest tube in place. Left hemidiaphragm elevated. No pneumothorax seen. Signed by Irving Gillette MD 04/25/2016 05:01 P
[2016-04-25] MEDS ORDERED: ALTEPLASE 2 MG/2 ML VIAL (J2997 PER 1MG) XX ONE (16:15)
--- NOTE | 2016-04-25 17:28 | REP ---
CT study of the chest without contrast: History: Left chest tube placement. Comparison chest CT study is from April [address] findings: Left chest tube has been inserted into the left posterior pleural angle. The left chest tube is seen posterior to and above the principally subpulmonic collection of pleural fluid, which remains in place essentially unchanged. There is some discoid atelectasis in the left base above this collection. The patient is apparently status post prior left upper lobectomy. Also noted is moderate to marked diffuse fatty infiltration of the liver. No hilar or mediastinal mass or adenopathy is observed. There is a small nodule in the right thyroid lobe. Discoid atelectasis is seen in the right lower lobe, unchanged from the recent CT. Impression: Left chest tube in place, question extrapleural. The tube courses posterior and superior to the subpulmonic pleural fluid collection. Fatty infiltration and bibasilar discoid atelectasis again seen. The patient is status post prior left upper lobectomy. Signed by Irving Gillette MD 04/25/2016 05:47 P
[2016-04-25] MEDS: PERCOCET 5MG/325MG TAB PO PRN (19:56)
[2016-04-25] MEDS ORDERED: SLF 3 ML SYR IV PRN (22:30)
[2016-04-26] VITALS (17 sets, daily range): BP systolic 118–152; BP diastolic 66–97
[2016-04-26] MEDS: AZITHROMYCIN INJ 500 MG, VIAL MATE ADAPTER 1 EACH in D5W 250 ML IV SCH (00:24)
[2016-04-26] MEDS: cefTRIAXone SOD 2 GM in D5W MINI-BAG PLUS 50 ML IV SCH (00:24)
[2016-04-26] MEDS: LEVALBUTEROL 1.25 MG/0.5 ML CONCENTRATE NEB NEB SCH ×4 (02:00→19:29)
[2016-04-26 05:35] LABS: BASO % 0.3 % (0.0-1.0); EOS # 0.1 K/mm3 (0.0-0.50); EOS % 1.6 % (0.0-3.0); LARGE UNSTAINED CELL # 0.2 K/mm3 (0.0-0.4); LARGE UNSTAINED CELL % 2.2 % (0.0-4.0); LYMPH # 0.8 K/mm3 (1.5-4.5); LYMPH % 7.8 % (24.0-44.0); MEAN CORPUSCULAR HGB CONC 33.5 g/dl (32.0-36.5); MEAN CORPUSCULAR VOLUME 98.5 fl (80.0-96.0); MONO # 0.6 K/mm3 (0.0-0.8); MONO % 7.8 % (0.0-5.0); NEUTROPHILS # 6.2 K/mm3 (1.8-7.7); NEUTROPHILS % 80.3 % (36.0-66.0); PLATELET COUNT, AUTOMATED 199 k/mm3 (150-450); WHITE BLOOD COUNT 7.8 K/mm3 (4.0-10.0)
[2016-04-26] MEDS: HEPARIN SOD (PORCINE) 5000 UNITS/ML VIAL SC SCH ×3 (05:39→21:11)
[2016-04-26] MEDS: SLF 3 ML SYR IV SCH ×3 (05:39→21:12)
[2016-04-26 05:48] LABS: ALBUMIN 2.6 GM/DL (3.2-5.2); ALBUMIN/GLOBULIN RATIO 0.57 (1.00-1.93); BILIRUBIN,TOTAL 0.3 MG/DL (0.2-1.0); CALCIUM LEVEL 8.8 MG/DL (8.8-10.2); CREATININE FOR GFR 1.39 MG/DL (0.70-1.30); GLOMERULAR FILTRATION RATE 54.9 (>49); POTASSIUM SERUM 3.8 MEQ/L (3.5-5.1); TOTAL PROTEIN 7.2 GM/DL (6.4-8.2)
[2016-04-26] MEDS: PERCOCET 5MG/325MG TAB PO PRN ×3 (06:12→19:38)
[2016-04-26 06:16] LABS: ABG BASE EXCESS 9.3 (-2.0-2.0); ABG HCO3 34.6 MEQ/L (22.0-26.0); ABG PARTIAL PRESSURE CO2 50.1 mmHg (35.0-45.0); ABG PARTIAL PRESSURE O2 89.1 mmHg (75.0-100.0); ABG STANDARD HCO3 33.1 MEQ/L (22.0-26.0); ABG TOTAL CO2 36.1 MEQ/L (23.0-31.0); ABG pH (ARTERIAL) 7.457 UNITS (7.350-7.450)
[2016-04-26] MEDS: TIOTROPIUM INHALER/CAPSULE (SPIRIVA) INH SCH (07:30)
[2016-04-26] MEDS: DOCUSATE SODIUM 100 MG CAP PO SCH ×2 (08:46→21:12)
[2016-04-26] MEDS: MOM 30ML SUSPENSION UDC PO SCH (08:47)
[2016-04-26] MEDS: rOPINIRole 1MG TAB PO SCH ×2 (08:47→21:11)
[2016-04-26] MEDS: ALLOPURINOL 300 MG TAB PO SCH (08:47)
[2016-04-26] MEDS: PANTOPRAZOLE 40MG TAB (PROTONIX) PO SCH (08:47)
[2016-04-26] MEDS: PRAVASTATIN 20 MG TAB PO SCH (08:47)
[2016-04-26] MEDS: FERROUS SULFATE 325MG TAB PO SCH (08:47)
[2016-04-26] MEDS: MAGNESIUM OXIDE 400 MG TAB (MAG-OX) PO SCH (08:48)
--- NOTE | 2016-04-26 08:48 | REP ---
Chest x-ray: Two views. History: Pleural effusion. Findings: There is evidence of subpulmonic effusion above the gastric air bubble at the left base. The left chest tube is partially withdrawn compared to yesterday's radiograph with its side-hole parallel to the chest wall. There is no evidence of pneumothorax. Right lung remains clear. Cardiomediastinal silhouette is unchanged. There is somewhat improved aeration in the remaining left lung. Signed by Irving Gillette MD 04/26/2016 09:38 A
[2016-04-26] MEDS: MULTIVITAMINS/MINERALS THERAP 1 TAB PO SCH (08:49)
[2016-04-26] MEDS: CARVedilol 6.25 MG TAB PO SCH ×2 (08:49→21:12)
[2016-04-26] MEDS ORDERED: FLUMAZENIL 0.5 MG/5 ML VIAL As Ordered ONE (11:05)
[2016-04-26] MEDS ORDERED: MIDAZOLAM INJ 2 MG/2 ML VIAL (J2250) As Ordered ONE ×2 (11:06→11:07)
[2016-04-26] MEDS ORDERED: LIDOCAINE 1% MDV 20ML VIAL As Ordered ONE (11:08)
[2016-04-26] MEDS ORDERED: MIDAZOLAM INJ 2 MG/2 ML VIAL (J2250) IV STA ×3 (11:59)
[2016-04-26] MEDS ORDERED: LIDOCAINE 1% MDV 20ML VIAL SC ONE (12:00)
--- NOTE | 2016-04-26 13:24 | REP ---
Portable chest x-ray: Single view. History: Chest tube insertion. Comparison study earlier on this same date. Findings: The chest tube has been repositioned and is seen although with difficulty at the left base medially. There is improved pleural opacity at the left base. No pneumothorax is seen. Impression: Left chest tube replaced or repositioned to the medial left base. Improved pleural opacity left base. No pneumothorax. Signed by Irving Gillette MD 04/26/2016 01:45 P
--- NOTE | 2016-04-26 13:51 | IPN ---
DATE: 04/26/2016 65-year-old gentleman seen at bedside, resting comfortably. Denies any complaints overnight. Chest tube is in place draining. He feels that his chest wall pain is adequately controlled. No fevers, chills or rigors noted this morning. However, he did have a temperature recorded through the night last night. No productive sputum or cough. Currently no nausea or vomiting, no abdominal pain. OBJECTIVE: Temperature is 96.8 with T-max through the night last night of 101.2, pulse 88, respiratory rate is 19, blood pressure 145/82, SPO2 is 94% on 3 liters. GENERAL: The patient appears to be in no acute distress. He is alert and oriented. HEENT: Unremarkable. LUNGS: Clear. HEART: Regular rhythm. ABDOMEN: Soft. EXTREMITIES: No edema. No calf tenderness. LABORATORIES: White count 7.8, hemoglobin 12.2, platelets are 199,000, sodium 136, potassium 3.8, chloride 97, bicarb 30, anion gap 9, BUN is 19, creatinine 1.39, glucose 143, AST 23, ALT 32, alkaline phosphatase 58, albumin is 2.6. Repeat chest x-ray this morning subpulmonic effusion above the gastric air bubble on the left, base left chest tube. This may be partially withdrawn according to the reading. Cardiomediastinal silhouette is unchanged. Somewhat improved aeration remaining in the left lung. ASSESSMENT/PLAN: 1. Dyspnea likely secondary to pleural effusion, possible empyema associated with community-acquired pneumonia. Appreciate Dr. Perez's input. [place] pleurodesis was considered. I will discuss with Dr. Perez to see how he feels the patient is improving. 2. Upper abdominal discomfort, possibly related to pulmonary issues and referred pain. This workup has remained negative for a any acute intra-abdominal issues. 3. Macrocytic anemia. Will continue to follow. His hemoglobin and hematocrit appears to be stable. 4. Chronic obstructive pulmonary disease (COPD), longstanding and chronic hypoxia requiring oxygen supplementation. He is currently on his baseline 3 liters. 5. Obstructive sleep apnea. Encouraged to use CPAP from home. 6. Gout. Continue allopurinol. 7. Hypertension. Stable on Carvedilol. 8. Hyperlipidemia on pravastatin. 9. Restless leg syndrome on ropinirole. 10. Chronic kidney disease stage III. Creatinine at baseline. 11. History of liposarcoma resected with partial colon and right kidney as well as adrenal gland. No current issues. 12. Prior history of lung cancer status post radiation and surgical therapy. 13. Gastroesophageal reflux disease (GERD). Continue Protonix. 14. Deep vein thrombosis (DVT) prophylaxis. Subcu heparin. DISPOSITION: Appreciate Dr. Perez's input. Supportive measures in place as outlined. He will likely be here through the weekend.
[2016-04-26 16:59] LABS: LDH, BODY FLUID 500 U/L (NOT ESTABLISHED); TOTAL PROTEIN, BODY FLUID 4.7 G/DL (NOT ESTABLISHED)
[2016-04-26 17:27] LABS: RBC PLEURAL FLUID 22 (<10mm3 cells/uL); TNC PLEURAL FLUID 111 cells/uL (0-20)
[2016-04-26 17:28] LABS: BF DIFF IF INDICATED? YES (NO)
[2016-04-26 18:59] LABS: CC BF DIFF EXAM CYTOCENTRIFUGE
[2016-04-27] VITALS (7 sets, daily range): BP systolic 126–140; BP diastolic 70–90
[2016-04-27] MEDS: NYSTATIN 100,000 UNITS/GM TOPICAL PWD 15 GM TOP SCH ×3 (00:39→21:11)
[2016-04-27] MEDS: AZITHROMYCIN INJ 500 MG, VIAL MATE ADAPTER 1 EACH in D5W 250 ML IV SCH ×2 (00:39→23:50)
[2016-04-27] MEDS: LEVALBUTEROL 1.25 MG/0.5 ML CONCENTRATE NEB NEB SCH ×4 (02:08→19:51)
[2016-04-27] MEDS: cefTRIAXone SOD 2 GM in D5W MINI-BAG PLUS 50 ML IV SCH (02:12)
[2016-04-27] MEDS: PERCOCET 5MG/325MG TAB PO PRN ×4 (02:57→21:36)
[2016-04-27] MEDS: ALBUTEROL SULFATE 2.5 MG/0.5 ML INH NEB SOLN INH PRN (03:59)
[2016-04-27] MEDS: SLF 3 ML SYR IV SCH ×3 (05:25→21:10)
[2016-04-27] MEDS: HEPARIN SOD (PORCINE) 5000 UNITS/ML VIAL SC SCH ×3 (05:25→21:09)
[2016-04-27 05:27] LABS: BASO % 0.5 % (0.0-1.0); EOS # 0.2 K/mm3 (0.0-0.50); EOS % 3.2 % (0.0-3.0); LARGE UNSTAINED CELL # 0.1 K/mm3 (0.0-0.4); LYMPH # 0.7 K/mm3 (1.5-4.5); LYMPH % 10.2 % (24.0-44.0); MEAN CORPUSCULAR HEMOGLOBIN 32.2 pg (27.0-33.0); MEAN CORPUSCULAR HGB CONC 32.3 g/dl (32.0-36.5); MEAN CORPUSCULAR VOLUME 99.7 fl (80.0-96.0); MONO # 0.4 K/mm3 (0.0-0.8); MONO % 6.7 % (0.0-5.0); NEUTROPHILS # 4.5 K/mm3 (1.8-7.7); NEUTROPHILS % 77.4 % (36.0-66.0); PLATELET COUNT, AUTOMATED 220 k/mm3 (150-450); RED CELL DISTRIBUTION WIDTH 13.9 % (11.5-14.5); WHITE BLOOD COUNT 5.8 K/mm3 (4.0-10.0)
[2016-04-27 05:50] LABS: ALBUMIN 2.6 GM/DL (3.2-5.2); ALBUMIN/GLOBULIN RATIO 0.57 (1.00-1.93); BILIRUBIN,TOTAL 0.2 MG/DL (0.2-1.0); CALCIUM LEVEL 9.1 MG/DL (8.8-10.2); CREATININE FOR GFR 1.29 MG/DL (0.70-1.30); GLOMERULAR FILTRATION RATE 59.9 (>49); MAGNESIUM LEVEL 1.9 MG/DL (1.8-2.4); POTASSIUM SERUM 3.7 MEQ/L (3.5-5.1); TOTAL PROTEIN 7.2 GM/DL (6.4-8.2)
[2016-04-27] MEDS: TIOTROPIUM INHALER/CAPSULE (SPIRIVA) INH SCH (07:40)
[2016-04-27] MEDS: MOM 30ML SUSPENSION UDC PO SCH (08:55)
[2016-04-27] MEDS: PANTOPRAZOLE 40MG TAB (PROTONIX) PO SCH (08:56)
[2016-04-27] MEDS: rOPINIRole 1MG TAB PO SCH ×2 (08:56→21:09)
[2016-04-27] MEDS: MULTIVITAMINS/MINERALS THERAP 1 TAB PO SCH (08:56)
[2016-04-27] MEDS: MAGNESIUM OXIDE 400 MG TAB (MAG-OX) PO SCH (08:56)
[2016-04-27] MEDS: CARVedilol 6.25 MG TAB PO SCH ×2 (08:56→21:10)
[2016-04-27] MEDS: FERROUS SULFATE 325MG TAB PO SCH (08:56)
[2016-04-27] MEDS: ALLOPURINOL 300 MG TAB PO SCH (08:56)
[2016-04-27] MEDS: PRAVASTATIN 20 MG TAB PO SCH (08:56)
[2016-04-27] MEDS: DOCUSATE SODIUM 100 MG CAP PO SCH ×2 (08:57→21:09)
--- NOTE | 2016-04-27 09:03 | REP ---
Chest x-ray: Two views. History: Pleural effusion. Findings: The left chest tube remains in place at the base. The subpulmonic effusion is improved. There is some atelectatic change and pleuroparenchymal reaction persisting at the left base. No new infiltrate is seen. There is no evidence of pneumothorax. Impression: Improved subpulmonic effusion on the left post chest tube placement. Signed by Irving Gillette MD 04/27/2016 09:54 A
--- NOTE | 2016-04-27 09:56 | IPN ---
DATE: 04/27/2016 65-year-old gentleman seen at bedside. Did have replacement of his chest tube yesterday by Dr. Perez, and he seems to be tolerating well. Shows that his breathing is improved since his admission. Denies productive cough. No fevers or chills. OBJECTIVE: Temperature is 96.9, pulse 86 and regular, respiratory rate is 20, blood pressure (BP) 137/89, SpO2 is 93% on 3 liters. General: The patient appears to be in no acute distress. He is alert, pleasant. HEENT: Unremarkable. Lungs: Diminished bibasilar breath sounds, occasional wheeze. Heart: Regular rate and rhythm. Abdomen is obese, soft, nontender, nondistended with positive bowel sounds. No masses. No rebound. Extremities: Show no signs of edema and no calf tenderness. LABORATORY DATA: White count is 5.8, hemoglobin 12.1, platelets are 220,000. Sodium is 137, potassium 3.7, chloride 98, bicarbonate 31, anion gap 8, BUN is 17, creatinine 1.29, glucose 134. AST 22, ALT 28, alkaline phosphatase 59, albumin 2.6. Blood cultures negative times 48 hours times two. Sputum cultures pending as well as gram stain and pleural fluid results are pending at this time. His portable chest x-ray today shows good placement of the chest tube, good aeration of the lungs. No acute cardiopulmonary issues noted. ASSESSMENT AND PLAN: 1. Dyspnea likely secondary to pleural effusion, possible empyema and community-acquired pneumonia. Appreciate Dr. Perez's input. To my knowledge talc pleurodesis has been considered and his chest tube has been replaced as there was an issue with the placement yesterday. Will await culture results. In the meantime, he continues with intravenous (IV) Rocephin and Zithromax. Continue DuoNebs. Will check 2D Echo given that the pleural effusion looks somewhat exudative. 2. Chronic obstructive pulmonary disease (COPD) with longstanding chronic hypoxic respiratory failure requiring oxygen supplementation. He is on his baseline 3 liters. 3. Upper abdominal discomfort likely related to referred pain from the chest symptomatology. This appears to be resolved. 4. Macrocytic anemia, which is longstanding. Continue to follow hemoglobin and hematocrit. 5. Obstructive sleep apnea. Continue on continuous positive airway pressure (CPAP). 6. Gout. Continue allopurinol. 7. Hypertension. Stable on carvedilol. 8. Hyperlipidemia. Continue pravastatin. 9. Restless leg syndrome. Continue ropinirole. 10. Chronic kidney disease (CKD) stage III. Creatinine is at baseline. 11. History of liposarcoma with partial colon, right kidney and adrenal gland resections. No current issues. 12. Prior history of lung cancer status post radiation and surgical therapy. 13. Gastroesophageal reflux disease (GERD). Continue Protonix. 14. Deep venous thrombosis (DVT) prophylaxis. Subcutaneous heparin. DISPOSITION: Appreciate Dr. Perez's input. Continue supportive measures as outlined, antibiotics as outlined. and anticipate that he will be here for several more days. MTDD
--- NOTE | 2016-04-27 13:27 | RO ---
DATE OF PROCEDURE: 04/25/2016 PREPROCEDURE DIAGNOSIS: Left pleural effusion. POSTPROCEDURE DIAGNOSIS: Left pleural effusion. PROCEDURE: Insertion of left lateral chest tube. SURGEON: Mainor Perez MD STONE CARRIAGE OPERATOR: ANESTHESIA: FINDINGS: Chest tube drained minimally, although I got just enough fluid for bacteriological specimen. DESCRIPTION OF PROCEDURE: Under satisfactory moderate sedation achieved with 4 mg of Versed, the patient was prepped and draped in the usual sterile fashion. Incision was made over the approximate 6th intercostal space and a tunnel was created in the chest. The clamp popped into the chest. However, the chest tube had difficulty threading into the chest as if I were going against a resistance. The chest tube drained minimal fluid. I was fairly convinced that the chest tube was in the chest and therefore it was secured to the chest wall with #2 Tevdek suture and connected to the Pleur-evac. A subsequent chest CT showed the tube to be in good position and no doubt the pleural fluid was semi organized and gelatinized. I will undertake a tPA pleurolysis. Patient tolerated the procedure well. ZULLY
--- NOTE | 2016-04-27 14:24 | RO ---
DATE OF PROCEDURE: 04/25/2016 PREOPERATIVE DIAGNOSIS: Organized clotted pleural effusion. POSTOPERATIVE DIAGNOSIS: Organized clotted pleural effusion. PROCEDURE: Tissue plasminogen activator (tPA) pleurolysis. SURGEON: Mainor Perez MD SOUND DESIGNER: ANESTHESIA: DESCRIPTION OF PROCEDURE: The chest tube that had been previously placed was disconnected from the Pleur-evac. 6 mg of tPA and 100 mL of normal saline were injected by two syringes. The chest tube was clamped and will remain so for the next 4 hours. Patient was shaken side to side to distribute the tPA. As this is an inferior infusion, he was also placed in a chair for the next 4 hours. Patient tolerated the procedure well.
[2016-04-28] MEDS: LEVALBUTEROL 1.25 MG/0.5 ML CONCENTRATE NEB NEB SCH ×4 (01:14→19:59)
[2016-04-28] MEDS: cefTRIAXone SOD 2 GM in D5W MINI-BAG PLUS 50 ML IV SCH (01:41)
[2016-04-28] MEDS: PERCOCET 5MG/325MG TAB PO PRN ×5 (02:57→22:27)
[2016-04-28 03:55] VITALS: BP 119/74
[2016-04-28] MEDS: SLF 3 ML SYR IV SCH ×3 (05:08→21:39)
[2016-04-28] MEDS: HEPARIN SOD (PORCINE) 5000 UNITS/ML VIAL SC SCH ×3 (05:08→21:39)
--- NOTE | 2016-04-28 05:46 | RO ---
DATE OF PROCEDURE: 04/26/2016 PREPROCEDURE DIAGNOSIS: Loculated pleural effusion on the left side. POSTPROCEDURE DIAGNOSIS: Loculated pleural effusion on the left side. PROCEDURE: Insertion of a posterior lateral inferior chest tube. SURGEON: Mainor Perez MD METAL REFINER: ANESTHESIA: FINDINGS: Approximately 600 mL of fluid, which was cloudy but serosanguineous was drained from the chest. DESCRIPTION OF PROCEDURE: Under satisfactory moderate sedation eventually achieved with 6 mg of Versed, patient was prepped and draped in the usual sterile fashion. A very long thoracentesis needle was placed into the chest in an attempt to find the fluid. Finally, at around 6 inches into the chest wall, the fluid could be aspirated. An incision was made and a very deep tunnel through his morbid obesity was created into the chest. A #24 chest tube was then placed. It drained the above amount. It was secured to the chest with #2 Tevdek suture. Patient tolerated the procedure well, and a chest x-ray is pending.
[2016-04-28 05:50] LABS: BASO % 0.6 % (0.0-1.0); EOS # 0.2 K/mm3 (0.0-0.50); LARGE UNSTAINED CELL # 0.2 K/mm3 (0.0-0.4); LARGE UNSTAINED CELL % 2.9 % (0.0-4.0); LYMPH # 0.7 K/mm3 (1.5-4.5); LYMPH % 12.3 % (24.0-44.0); MEAN CORPUSCULAR HEMOGLOBIN 31.6 pg (27.0-33.0); MEAN CORPUSCULAR HGB CONC 32.4 g/dl (32.0-36.5); MEAN CORPUSCULAR VOLUME 97.7 fl (80.0-96.0); MONO # 0.3 K/mm3 (0.0-0.8); MONO % 6.3 % (0.0-5.0); NEUTROPHILS % 73.9 % (36.0-66.0); PLATELET COUNT, AUTOMATED 242 k/mm3 (150-450); RED CELL DISTRIBUTION WIDTH 13.6 % (11.5-14.5); WHITE BLOOD COUNT 5.5 K/mm3 (4.0-10.0)
[2016-04-28 06:06] LABS: ALBUMIN 2.7 GM/DL (3.2-5.2); ALKALINE PHOSPHATASE 56 U/L (45-117); ALT/SGPT 28 U/L (12-78); ANION GAP 9 MEQ/L (8-16); AST/SGOT 20 U/L (15-37); BILIRUBIN,TOTAL 0.2 MG/DL (0.2-1.0); BLOOD UREA NITROGEN 16 MG/DL (7-18); CALCIUM LEVEL 9.1 MG/DL (8.8-10.2); CARBON DIOXIDE LEVEL 31 MEQ/L (21-32); CHLORIDE LEVEL 97 MEQ/L (98-107); CREATININE FOR GFR 1.27 MG/DL (0.70-1.30); GLOMERULAR FILTRATION RATE > 60.0 (>49); GLUCOSE, FASTING 121 MG/DL (80-110); MAGNESIUM LEVEL 1.9 MG/DL (1.8-2.4); POTASSIUM SERUM 3.7 MEQ/L (3.5-5.1); SODIUM LEVEL 137 MEQ/L (136-145); TOTAL PROTEIN 7.2 GM/DL (6.4-8.2)
--- NOTE | 2016-04-28 06:19 | IPN ---
DATE: 04/26/2016 Mr. Wnichester still has right-sided chest pain. He has put out very little from the chest tube even after the tissue plasminogen activator (tPA) pleurolysis. Furthermore, on chest x-ray the tube looks as if it has significantly moved. His vital show a maximum temperature (Tmax) of 101.2, now it defervesced to 96.8. Heart rate that ranges between 89-98 in a sinus rhythm with a respiratory rate of 19-20 without the use of accessory muscles, who is 93-94% saturated on 3 liters nasal cannula and his blood pressure is ranging between 145/82 to 132/73. His intake and output for the past 24 hours has been recorded as 1500 in and 680 out for a positivity of 820 mL. He has only put out 80 mL from the chest tube up til 12 o'clock this morning and 14 over the last 10 hours. There is no air leak. Weight today is 148.4 kg compared to 149.8 kg yesterday. On physical examination, he has decreased breath sounds in the right lower hemithorax. I cannot really appreciate dullness secondary to his morbid obesity on percussion. There is no E to A egophony. Cardiac exam is without murmurs, clicks, gallops or rubs. I cannot feel his point of maximum impulse (PMI). S1 and S2 are normal. Abdomen is tender in the left upper quadrant to deep palpation. Right upper quadrant is also slightly tender. He is soft. There is no guarding or rigidity, and bowel sounds are positive but hypoactive. He has positive costovertebral angle (CVA) tenderness on the left side. Extremities show no pretibial edema and no calf tenderness. No differential swelling of the upper extremities. Skin is warm, dry and perfused without cyanosis or mottling, including the nail beds and knees. Neck is supple. There is no jugular venous distention. No subcutaneous emphysema. Trachea is midline. Mouth shows his mucous membranes to be pink and moist. Lips and commissures are without lesions. There is no thrush. Eyes show his pupils to be equal and reactive. Extraocular movements intact. Sclerae nonicteric. Neurologic shows II-XII intact along with gross motor and gross sensation intact. Gait is not tested. Psychiatric shows him to be awake and alert, oriented times three with appropriate and affect and conversational. His white count today is 7.8 with hemoglobin and hematocrit of 12.2 and 36.5, unchanged from yesterday, with a platelet count of 199 and stable. Differential shows 80% neutrophils, 7% lymphocytes, 7% monocytes. There are no immature forms, no toxic granulations. Electrolytes are normal with a BUN and creatinine of 19 and 1.39, unchanged from yesterday. Calcium is 8.8 with an albumin of 2.9. He has an AST and ALT of 23 and 32, respectively. Blood gases today show pH of 7.45, pCO2 of 50 and a pO2 of 89 with the above 3 liters of cannula. Base excess is 9.3. Notably, he is not on any diuretics. His metabolic alkalosis is no doubt secondary to chronic CO2 retention. His chest x-ray today still shows the left pleural effusion. Chest tube has removed significantly, but still looks to be within the chest but outside the fluid collection. Microbiology of the pleural fluid shows a few WBCs but no organisms. Sputum culture gram-stain however, shows moderate gram positive cocci and a few gram positive rods. This looks to be probably going to returns clerk to be a streptococcus parapneumonic effusion. His respiratory panel is negative, including rule outs for influenza A H1 and H3, along with influenza B respiratory syncytial virus, parainfluenza 1, 2, 3 and 4, adenovirus and rhinovirus, mycoplasma pneumoniae, chlamydia pneumoniae and bordello. All of those are negative. IMPRESSION: 1. Left lower lobe pneumonia. 2. Left parapneumonic effusion, possible empyema. 3. 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 4. 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 5. Hypothyroidism. 6. Morbid obesity. 7. Obstructive sleep apnea (LUCA). 8. Hypertension. 9. Acquired absence of kidney. 10. Renal insufficiency. 11. Abdominal liposarcoma removed in 2016. 12. 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 PLAN AND DISCUSSION: I am going to be forced to replace the chest tube at lower interspace. Analysis of the CT scan done yesterday after the chest tube placement showed the chest tube just skimming the top of the pleural effusion with the tip outside the pleural effusion. I will therefore go one interspace down. He is continuing on antibiotic therapy, which includes ceftriaxone and azithromycin to treat a community-acquired pneumonia.
[2016-04-28] MEDS: TIOTROPIUM INHALER/CAPSULE (SPIRIVA) INH SCH (07:03)
[2016-04-28] MEDS ORDERED: ALTEPLASE 2 MG/2 ML VIAL (J2997 PER 1MG) XX ONE (07:30)
[2016-04-28 08:00] VITALS: BP 120/60
--- NOTE | 2016-04-28 08:20 | REPUSA ---
CLINICAL HISTORY: Pneumonia versus a neoplastic pathology. TECHNIQUE: Multiple axial CT images were obtained through chest without IV contrast material. MPR cor onal and sagittal sequences were obtained. COMMENTS: Comparison is made to the prior exam on 04/24/2016. Mild decrease in left pleural effusion. Mild decrease in associated passive atelectatic airspace disease of the left lower lobe. Increased densities in the left pleural cavity. Left thoracostomy tube remains in good position. Unchanged subsegmental atelectasis in the right lower lobe. IMPRESSION: Decreased left pleural effusion. Thank you for your kind referral of this patient.
--- NOTE | 2016-04-28 08:27 | IPN ---
DATE: 04/27/2016 Mr. Winchester feels much better after having his pleural effusion drained yesterday with a second chest tube. It has come back lymphocytic and exudative. Final pathology is pending. His vital show a maximum temperature (Tmax) of 98.8 with a heart rate that ranges between 84 and 86 in a sinus rhythm, respiratory rate of 18 to 20 without the use of accessory muscles, who is 93% saturated on 3 liters nasal cannula. His blood pressure is ranging between 137/89 to 140/86. His intake and output for the past 24 hours has been recorded as 1984 in and 2108 out for a negativity of 124 mL. He has only been recorded as having 209 mL out of the chest tube; however, I took out 600 mL initially drainage yesterday. Weight today is 149 kg compared to 148 kg yesterday. PHYSICAL EXAMINATION: LUNGS: He has decreased breath sounds in the right lower hemithorax with rales in the left lower hemithorax. Right size shows normal vesicular sounds without wheezing. Percussion note is full to the diaphragm as far as I can tell through his morbid obesity. CARDIAC: Cardiac exam is without murmurs, clicks, gallops or rubs. I cannot feel his point of maximum impulse (PMI). S1 and S2 are normal. ABDOMEN: Soft and tender except in the left upper quadrant where he is tender to deep palpation. Bowel sounds are positive. There is no hepatomegaly. No costovertebral angle (CVA) tenderness. EXTREMITIES: Show no pretibial edema and no calf tenderness. No differential swelling of the upper extremities. SKIN: Warm, dry and perfused without cyanosis or mottling, including that of the nail beds and the knees. NECK: Supple. There is no jugular venous distention. No subcutaneous emphysema. Trachea is midline. MOUTH: Shows his mucous membranes to be pink and moist. Lips and commissures are without lesions. There is no thrush. EYES: Show his pupils to be equal and reactive. Extraocular movements intact. Sclerae nonicteric. NEUROLOGIC: Shows II-XII intact along with gross motor and gross sensation intact. Gait is not tested. PSYCHIATRIC: Shows him to be awake and alert, oriented times three with appropriate and affect and conversational. His white count today is 5.8 with hemoglobin and hematocrit of 12.1 and 37.3, with a platelet count of 220. Differential shows 77% neutrophils, 10% lymphocytes, 6% monocytes. There are no immature forms, no toxic granulations. Electrolytes today are normal with a BUN and creatinine of 17 and 1.29, glucose of 134 with a calcium of 9.1 and a corresponding albumin of 2.6. There are no blood gases on him today. His pleural fluid has come back with a pH of 7.47, glucose of 129, LDH of 500, with a total protein of 4.7. His corresponding values show a total protein of 7.2 and an LDH of 184, making this an exudative effusion. It is normoglycemic. Pathology is pending. His chest x-ray today is markedly improved. I can now see his diaphragmatic border. Chest tube is in good place posteriorly and inferiorly along the diaphragm. Lung shows a lot more expansion to the chest wall and down to the diaphragm. There is still a dense opacity in the left posterior hemithorax on the lateral film, which probably represents consolidation from his pneumonia. IMPRESSION: 1. Left lower lobe pneumonia. 2. Chronic obstructive pulmonary disease (COPD). 3. Probable parapneumonic effusion. 3. Obstructive sleep apnea. 4. Gout. 5. Hypertension. 6. Chronic kidney disease. 7. History of liposarcoma with partial colon, right kidney and adrenal gland resections. 8. Stage IA lung cancer, left upper lobe, status post left upper lobectomy and stage IA right lower lobe cancer, status post stereotactic body radiation therapy (SBRT). PLAN AND DISCUSSION: It should be noted that both of his cancers were thought to be primaries while both were squamous cell carcinoma, they had different morphologies. The larger one was resected and the smaller one underwent SBRT. This looks to be parapneumonic exudative effusion, although it is predominantly lymphocytic, that is surprising and we will await cytologies. Nonetheless, I would still treat him for left lower lobe pneumonia. He is continuing on ceftriaxone and azithromycin for community acquired pneumonia, which is not at all unreasonable. We will continue to follow his x-rays and his chest tube output. I would suggest that we get an echo to check the function of his heart.
[2016-04-28] MEDS: MOM 30ML SUSPENSION UDC PO SCH (09:00)
[2016-04-28] MEDS: FERROUS SULFATE 325MG TAB PO SCH (09:19)
[2016-04-28] MEDS: PRAVASTATIN 20 MG TAB PO SCH (09:20)
[2016-04-28] MEDS: ALLOPURINOL 300 MG TAB PO SCH (09:20)
[2016-04-28] MEDS: rOPINIRole 1MG TAB PO SCH ×2 (09:21→21:40)
[2016-04-28] MEDS: PANTOPRAZOLE 40MG TAB (PROTONIX) PO SCH (09:21)
[2016-04-28] MEDS: MAGNESIUM OXIDE 400 MG TAB (MAG-OX) PO SCH (09:21)
[2016-04-28] MEDS: DOCUSATE SODIUM 100 MG CAP PO SCH ×2 (09:21→21:39)
[2016-04-28] MEDS: MULTIVITAMINS/MINERALS THERAP 1 TAB PO SCH (09:21)
--- NOTE | 2016-04-28 09:21 | IPN ---
DATE: 04/28/2016 Brandon was seen while rounding for the hospitalist. Dr. Perez has been managing his chest tube. Consideration for talc pleurodesis currently being entertained. Patient denies any significant chest pain. Patient has a history of two synchronous stage IA lung cancer in his left upper lobe status post left upper lobectomy, right lower lobe status post stereotactic body radiation therapy. Other medical problems include chronic obstructive pulmonary disease (COPD) with chronic respiratory failure on 3 liters nasal cannula chronically. History of gout, hypertension, hyperlipidemia, restless leg syndrome, chronic kidney disease, gastroesophageal reflux disease (GERD). PHYSICAL EXAMINATION: 119/74, pulse 76, respiratory rate 29, 92% saturation. General appearance: He is alert, conversant, in no distress. Lungs: Clear. Decreased breath sounds left base. Left chest tube in. Right lung is clear. Heart: Regular rhythm. Abdomen: Soft, obese, nontender. Trace peripheral edema. LABORATORIES: CBC is stable. BMP is unremarkable. IMPRESSION: 1. Pleural effusion. Management per Dr. Perez. 2. Chronic obstructive pulmonary disease, stable. Continue with bronchodilator and oxygen. 3. Gout. Continue allopurinol for prophylaxis. 4. Hypertension. Well controlled on current regimen. 5. Hyperlipidemia. Continue pravastatin 40 mg daily. 6. Restless leg syndrome. Continue his Requip, which he takes a milligram in the morning, 2 mg in the evening. Dr. Malhotra will assume his care in the morning.
[2016-04-28] MEDS: CARVedilol 6.25 MG TAB PO SCH ×2 (09:22→21:40)
[2016-04-28] MEDS: NYSTATIN 100,000 UNITS/GM TOPICAL PWD 15 GM TOP SCH ×2 (09:22→21:40)
--- NOTE | 2016-04-28 10:20 | REP ---
Clinical: Pleural effusion. Technique: PA and lateral. Comparison: 04/27/2016. Findings: Chronic changes with bibasilar atelectasis and left pleuroparenchymal changes including left basilar chest tube and multiloculated hydropneumothorax appears similar to prior examination. No significant new acute process. Mediastinal cardiac silhouette are stable. Skeletal structures intact. Impression: No significant change from prior examination. Right basilar atelectasis and left basilar pleuroparenchymal changes with multiloculated hydropneumothorax and left chest tube similar to prior examination. Signed by Pb Perkins MD 04/28/2016 10:12 A
[2016-04-28 12:00] VITALS: BP 128/78
[2016-04-28 16:00] VITALS: BP 133/80
--- NOTE | 2016-04-28 17:04 | IPN ---
DATE: 04/28/2016 Mr. Winchester is feeling fairly good. He is eating well and his pain is being controlled well at the chest tube insertion site. Chest CT today still shows some residual fibrinous material in the pleural space. There is no cough. His vital show a maximum temperature (Tmax) of 99.0 with a heart rate that ranges between 76 and 82 in a sinus rhythm, respiratory rate of 18 to 20 without the use of accessory muscles, who is 95% saturated on 3 liters nasal cannula. His blood pressure is ranging between 119/74 to 132/70. His intake and output for the past 24 hours has been recorded as 1130 in and 3825 out for a negativity of 2695 mL. He has put out 125 mL out of the chest tube. His weight today is 149 kg compared to 149.7 kg yesterday. PHYSICAL EXAMINATION: LUNGS: He had some course rhonchi in the left lower hemithorax. The remainder of his lung sounds show normal vesicular sounds. Percussion note is full to the diaphragm. CARDIAC: Cardiac exam is without murmurs, clicks, gallops or rubs. I cannot feel his point of maximum impulse (PMI). S1 and S2 are normal. ABDOMEN: Soft and nontender. Bowel sounds are positive. There is no hepatomegaly. No costovertebral angle (CVA) tenderness that I can feel through his morbid obesity. EXTREMITIES: Show no pretibial edema and no calf tenderness. No differential swelling of the upper extremities. SKIN: Warm, dry and perfused without cyanosis or mottling, including that of the nail beds and the knees. NECK: Supple. There is no jugular venous distention. No subcutaneous emphysema. Trachea is midline. MOUTH: Shows his mucous membranes to be pink and moist. Lips and commissures are without lesions. There is no thrush. EYES: Show his pupils to be equal and reactive. Extraocular movements intact. Sclerae nonicteric. NEUROLOGIC: Shows II-XII intact along with gross motor and gross sensation intact. Gait is also intact. PSYCHIATRIC: Shows him to be awake and alert, oriented times three with appropriate and affect and conversational. His white count today is 5.5 with hemoglobin and hematocrit of 12.1 and 37.3, with a platelet count of 242. Differential shows 72% neutrophils, 12% lymphocytes, 6% monocytes. There are no immature forms, no toxic granulations. Electrolytes are essentially normal with a BUN and creatinine of 16 and 1.27 with a glucose of 121 and a calcium of 9.1 with a corresponding albumin of 2.7. I discussed his pleural fluid yesterday. His chest CT today still shows residual fibrinous material within the pleural space. There are compressive changes but I do not see real infiltrative changes in the lower lobe. I am starting to have a sinking feeling that he may have an entrapped lung. IMPRESSION: 1. Left lower lobe pneumonia. 2. Parapneumonic effusion, possible empyema. 3. Chronic obstructive pulmonary disease (COPD). 4. Obstructive sleep apnea. 5. Gout. 6. Hypertension. 7. Chronic kidney disease. 8. History of liposarcoma with partial colon, right kidney and adrenal gland resections. 9. Stage IA cancer to the left upper lobe, status post left upper lobectomy and stage IA right lower lobe cancer, status post stereotactic body radiation therapy (SBRT). PLAN AND DISCUSSION: We will again undertake a TPA pleurolysis. His chest tube was in good place with the pleural cavity and the parapneumonic effusion. Hopefully we can break up the loculations and fibrinous exudate and have the lung rexpanded to the chest wall. He is already on lung expansion therapy and I will start Acapella. Microbiology is showing methicillin resistant staphylococcus aureus in his sputum but nothing has grown out of the pleural fluid. Pathology is still pending.
[2016-04-28] MEDS ORDERED: POTASSIUM CHLORIDE 10 MEQ SR TABLET PO ONE (18:30)
--- NOTE | 2016-04-28 18:59 | ECHO ---
DATE OF PROCEDURE: 04/28/2016 REFERRING PHYSICIAN: Dr. Vasquez Carlisle INDICATION: Dyspnea. HEIGHT: 193 cm WEIGHT: 150 kg DIMENSIONS: IVS: 1.3 LV: 3.9 LVPW: 1.2 LA: 4.1 Aorta: 3.5 E-prime septal 5.9cm/s E-prime lateral 7.7 cm/s FINDINGS: The study is of rather limited technical quality corresponding to patient's body habitus and presence of left chest tube. Left ventricle is of normal size and hyperdynamic contractility. I estimate ejection fraction around 70-75%. Mild left ventricular hypertrophy (LVH) is noted. Right ventricle does not appear grossly enlarged. Left atrium is at least mildly enlarged. Right atrium is probably normal size. Aortic valve is sclerotic but it has three leaflets and preserved mobility. There are also mild degenerative abnormalities of mitral valve. Tricuspid valve appears normal. Pulmonic valve was not well seen. No pericardial effusion is noted. Inferior vena cava was not visualized. Aortic root is normal. Aortic arch and abdominal aorta were not well seen. Doppler interrogation reveals no aortic stenosis or insufficiency. There is also no significant mitral valve disease. There is mild tricuspid insufficiency. Calculated pulmonary artery pressure was grossly normal but the quality of tricuspid regurgitation (TR) jet was fair and consequently accuracy of this should be taken with some skepticism. Pulmonic valve is functionally competent. Mitral inflow pattern and tissue Doppler imaging of mitral annulus reveal grade 1 diastolic dysfunction. CONCLUSIONS: 1. Study is of fair technical quality. 2. Normal left ventricle (LV) size with mild LVH and hyperdynamic LV systolic function. Grade 1 diastolic dysfunction. 3. No hemodynamically significant valvular disease. 4. Unable to estimate central venous pressure and pulmonary artery pressure. COMMENT: Subacute bacterial endocarditis (SBE) prophylaxis is not recommended. [facility]
[2016-04-28 20:00] VITALS: BP 133/80
--- NOTE | 2016-04-28 22:23 | RO ---
DATE OF PROCEDURE: 04/28/2016 PREPROCEDURE DIAGNOSIS: Loculated pleural effusion. POSTPROCEDURE DIAGNOSIS: Loculated pleural effusion PROCEDURE: TPA pleurolysis. SURGEON: Dr. Mainor Perez RIGGING UP MAN: ANESTHESIA: DESCRIPTION OF PROCEDURE: The patient's chest tube was disconnected from the Pleur-evac and prepped and draped in the usual sterile fashion. 6 mg of TPA and 100 mL of normal saline was then infused into the chest tube. Chest tube was clamped and will remain so for the next 4 hours. The patient was rolled from side to side and encouraged to walk and sit in a chair today.
[2016-04-28] MEDS: AZITHROMYCIN INJ 500 MG, VIAL MATE ADAPTER 1 EACH in D5W 250 ML IV SCH (23:18)
[2016-04-29] VITALS: BP 130/70
[2016-04-29] MEDS: cefTRIAXone SOD 2 GM in D5W MINI-BAG PLUS 50 ML IV SCH (01:15)
[2016-04-29] MEDS: LEVALBUTEROL 1.25 MG/0.5 ML CONCENTRATE NEB NEB SCH ×4 (01:20→20:31)
[2016-04-29 04:00] VITALS: BP 136/79
[2016-04-29] MEDS: ALBUTEROL SULFATE 2.5 MG/0.5 ML INH NEB SOLN INH PRN (04:34)
[2016-04-29] MEDS: SLF 3 ML SYR IV SCH ×3 (05:10→21:30)
[2016-04-29] MEDS: HEPARIN SOD (PORCINE) 5000 UNITS/ML VIAL SC SCH ×3 (05:10→21:30)
[2016-04-29] MEDS: PERCOCET 5MG/325MG TAB PO PRN ×2 (05:15→18:49)
[2016-04-29 05:47] LABS: BASO % 0.5 % (0.0-1.0); EOS # 0.2 K/mm3 (0.0-0.50); EOS % 3.5 % (0.0-3.0); LARGE UNSTAINED CELL # 0.2 K/mm3 (0.0-0.4); LARGE UNSTAINED CELL % 2.5 % (0.0-4.0); LYMPH # 0.8 K/mm3 (1.5-4.5); LYMPH % 8.5 % (24.0-44.0); MEAN CORPUSCULAR HEMOGLOBIN 32.7 pg (27.0-33.0); MEAN CORPUSCULAR HGB CONC 33.4 g/dl (32.0-36.5); MEAN CORPUSCULAR VOLUME 97.7 fl (80.0-96.0); MONO # 0.5 K/mm3 (0.0-0.8); MONO % 7.1 % (0.0-5.0); NEUTROPHILS # 5.3 K/mm3 (1.8-7.7); NEUTROPHILS % 77.9 % (36.0-66.0); PLATELET COUNT, AUTOMATED 258 k/mm3 (150-450); RED CELL DISTRIBUTION WIDTH 13.6 % (11.5-14.5); WHITE BLOOD COUNT 6.8 K/mm3 (4.0-10.0)
[2016-04-29 06:07] LABS: ALBUMIN 2.7 GM/DL (3.2-5.2); ALBUMIN/GLOBULIN RATIO 0.61 (1.00-1.93); ALKALINE PHOSPHATASE 60 U/L (45-117); ALT/SGPT 28 U/L (12-78); ANION GAP 9 MEQ/L (8-16); AST/SGOT 25 U/L (15-37); BILIRUBIN,TOTAL 0.3 MG/DL (0.2-1.0); BLOOD UREA NITROGEN 18 MG/DL (7-18); CALCIUM LEVEL 9.2 MG/DL (8.8-10.2); CARBON DIOXIDE LEVEL 32 MEQ/L (21-32); CHLORIDE LEVEL 97 MEQ/L (98-107); CREATININE FOR GFR 1.28 MG/DL (0.70-1.30); GLOMERULAR FILTRATION RATE > 60.0 (>49); GLUCOSE, FASTING 126 MG/DL (80-110); MAGNESIUM LEVEL 1.9 MG/DL (1.8-2.4); POTASSIUM SERUM 4.1 MEQ/L (3.5-5.1); SODIUM LEVEL 138 MEQ/L (136-145); TOTAL PROTEIN 7.1 GM/DL (6.4-8.2)
[2016-04-29] MEDS: TIOTROPIUM INHALER/CAPSULE (SPIRIVA) INH SCH (07:34)
[2016-04-29 08:00] VITALS: BP 115/73
[2016-04-29] MEDS: rOPINIRole 1MG TAB PO SCH ×2 (09:34→21:30)
[2016-04-29] MEDS: PANTOPRAZOLE 40MG TAB (PROTONIX) PO SCH (09:35)
[2016-04-29] MEDS: FERROUS SULFATE 325MG TAB PO SCH (09:35)
[2016-04-29] MEDS: MULTIVITAMINS/MINERALS THERAP 1 TAB PO SCH (09:35)
[2016-04-29] MEDS: CARVedilol 6.25 MG TAB PO SCH ×2 (09:35→21:30)
[2016-04-29] MEDS: MAGNESIUM OXIDE 400 MG TAB (MAG-OX) PO SCH (09:35)
[2016-04-29] MEDS: DOCUSATE SODIUM 100 MG CAP PO SCH ×2 (09:36→21:30)
[2016-04-29] MEDS: PRAVASTATIN 20 MG TAB PO SCH (09:36)
[2016-04-29] MEDS: ALLOPURINOL 300 MG TAB PO SCH (09:36)
[2016-04-29] MEDS: MOM 30ML SUSPENSION UDC PO SCH (09:37)
[2016-04-29] MEDS: NYSTATIN 100,000 UNITS/GM TOPICAL PWD 15 GM TOP SCH ×2 (09:37→21:31)
--- NOTE | 2016-04-29 09:41 | REP ---
Clinical: Follow up pleural effusion. Technique: PA and lateral. Comparison: 04/28/2016. Findings: Chest tube identified at the left lung base and left pleuroparenchymal changes including element of hydropneumothorax may be slightly improved when compared to prior examination. Underlying bibasilar atelectasis (left greater than right) is again noted. No obvious apical pneumothorax. Mediastinum and cardiac silhouette stable. Skeletal structures stable. Impression: Possible mild improvement to the pleuroparenchymal changes at the left lung base. No new acute process identified. Signed by Pb Perkins MD 04/29/2016 09:33 A
[2016-04-29 12:00] VITALS: BP 115/70
--- NOTE | 2016-04-29 13:29 | IPN ---
DATE OF EXAMINATION: 04/29/2016 SUBJECTIVE: Today, the patient tells me that he is feeling better. He tells me that he still has some pain in his chest, but it is improving every day. He tells me that it is not anything like what it was when he presented to the hospital. He denies shortness of breath, fevers, chills, nausea, vomiting, or diarrhea. OBJECTIVE: VITAL SIGNS: Temperature 96.7, pulse 80, respiratory rate 20, blood pressure (BP) 115/70, 95% on 3 liters nasal cannula. In general, he is a morbidly obese man sitting in a recliner. He does not appear to be in any acute distress. HEENT: Pupils equal, round, and reactive to light. He has moist mucous membranes. No elevation in central venous pressure (CVP). CARDIOVASCULAR EXAMINATION: S1, S2, regular. RESPIRATORY EXAMINATION: Is actually quite clear with good air movement. ABDOMINAL EXAMINATION: Is grossly obese. EXTREMITIES: No clubbing, cyanosis, or appreciable edema. LABORATORY STUDIES: WBC 6.8, hemoglobin 12.1, hematocrit 36.3, platelet count 258. Chemistry panel: Sodium 138, potassium 4.1, chloride 97, bicarbonate 32, BUN 18 , creatinine 1.2. MICROBIOLOGY: A sputum expectorate was positive for methicillin-resistant Staphylococcus aureus (MRSA), but otherwise pleural fluid is negative thus far as her blood cultures pathology reveals a few active mesothelial cells, as well as acute and chronic inflammatory cells. No malignant cells identified. IMAGING: The patient did have a chest x-ray this morning, which revealed possible mild improvement in the pleuroparenchymal changes in the left lung base. No new acute process identified. ECHOCARDIOGRAM: The patient has normal left ventricle (LV) size with left ventricular hypertrophy grade 1 diastolic dysfunction. ASSESSMENT AND PLAN: This is a 65-year-old man who presented with dyspnea secondary to left-sided pleural effusion, possible empyema. PROBLEMS: 1. Left-sided effusion with possible empyema. Dr. Perez's help is greatly appreciated. Currently, the only culture positive is MRSA. However, I suspect that this is not likely an MRSA infection, given that he has improved significantly without MRSA coverage. He is afebrile, has no leukocytosis. He is not tachycardic. He is currently on ceftriaxone, azithromycin day #5. Dr. Perez has used tissue plasminogen activator (TPA) through his chest tube twice during his stay. We are currently awaiting some of the cytology and pathology results. 2. Chronic obstructive pulmonary disease (COPD). His baseline is 3 liters. He is at his baseline. He is on nebulizer treatments. 3. Anemia, stable and chronic. The patient is on ferrous sulfate. 4. Obstructive sleep apnea. He continues to use continuous positive airway pressure (CPAP) at night. 5. Gout. He is on allopurinol. 6. Hypertension. He is on carvedilol. 7. Dyslipidemia. He is on pravastatin. 8. Restless legs syndrome. He is on Requip,. 9. Chronic kidney disease. He is at his baseline. 10. History of liposarcoma with partial colon, right kidney, and adrenal gland resections. No active issues. 11. History of lung cancer, status post surgery and radiation therapy in the distant past. 12. Gastroesophageal reflux disease. He is on Protonix. 13. Deep venous thrombosis (DVT) prophylaxis. He is subcutaneous heparin. DISPOSITION: Will continue to monitor the patient closely. Chest tube management as per Dr. Perez. [facility]
--- NOTE | 2016-04-29 15:02 | IPN ---
DATE: 04/29/2016 Mr. Winchester had two run of ventricular tachycardia yesterday, which looks like Torsades de Pointes. His QTC interval in the emergency room EKG is only 415, which is in the limits of normal. His potassium yesterday was 3.7 and he was given more potassium. Magnesium was also 1.9, within normal limits. He was asymptomatic during the two episodes. He did not feel lightheaded and he was not aware of palpitations or tachycardia. His pain is being well controlled at the chest tube insertion site. He underwent a tPA pleurolysis again yesterday with a reduction of 450 mL out chest output since yesterday with increased clearing of his chest x-ray. His vital show a maximum temperature (Tmax) of 98.9 with a heart rate that ranges between 85 and 91, now in a sinus rhythm, respiratory rate is 18 to 20 without the use of accessory muscles, who is 93 to 98% saturated on 3 liters nasal cannula. His blood pressure is ranging between 115/73 to 136/79. His intake and output for the past 24 hours has been recorded as 1280 in and 4470 out for a negativity of 3190 mL. He has put 4000 mL out in urine. Chest tube has put 470 mL. His weight today is 149.3 kg compared to 149 kg yesterday. PHYSICAL EXAMINATION: LUNGS: His lungs show some coarse crackles at the left base. Percussion note is full to the diaphragm as far as I can tell through his morbid obesity. CARDIAC: Cardiac exam is without murmurs, clicks, gallops or rubs. I cannot feel his point of maximum impulse (PMI). S1 and S2 are normal. ABDOMEN: Soft and nontender. Bowel sounds are positive. There is no hepatomegaly that can be felt through his morbid obesity. No costovertebral angle (CVA) tenderness. EXTREMITIES: Show no pretibial edema and no calf tenderness. No differential swelling of the upper extremities. SKIN: Warm, dry and perfused without cyanosis or mottling, including that of the nail beds and the knees. NECK: Supple. There is no jugular venous distention. No subcutaneous emphysema. Trachea is midline. MOUTH: Shows his mucous membranes to be pink and moist. Lips and commissures are without lesions. There is no thrush. EYES: Show his pupils to be equal and reactive. Extraocular movements intact. Sclerae nonicteric. NEUROLOGIC: Shows II-XII intact along with gross motor and gross sensation intact. Gait is also intact. PSYCHIATRIC: Shows him to be awake and alert, oriented times three with appropriate and affect and conversational. His white count today is 6.8 with a hemoglobin and hematocrit of 12.1 and 36.3, essentially unchanged from yesterday with a platelets count of 258. Differential shows 77% neutrophils, 8% lymphocytes, 7% monocytes. There are no immature forms and no toxic granulations. His electrolytes reports normal with a BUN and creatinine of 18 and 1.28, glucose of 126 and a calcium of 9.2. Magnesium today is 1.9 with a potassium of 4.1. Albumin is 2.7, unchanged. His chest x-ray shows clearing of the diaphragm where I can see its contour now. Chest tube is in good place. The lateral chest x-ray still shows some probably residual fluid and/or consolidation of the left lower lobe. The right lower lobe infiltrate is also improved. IMPRESSION: 1. Left lower pneumonia. 2. Parapneumonic effusion, possibly an empyema. 3. Chronic obstructive pulmonary disease (COPD). 4. Obstructive sleep apnea. 5. Gout. 6. Hypertension. 7. Chronic kidney disease. 8. History of liposarcoma with partial colon, right kidney and adrenal gland resections. 9. Stage IA cancer of the left upper lobe, status post left lobectomy. Stage 1A right lower lobe status post SBRT. 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 PLAN AND DISCUSSION: His Torsades has not recurred. He was given extra magnesium yesterday. His QTC interval is within normal limits. His magnesium is also normal. I am pleased that he eluded more fluid today of 470 mL from the chest tube. His diaphragmatic border is clearing. I will continue his chest tube on suction today.
[2016-04-29 16:00] VITALS: BP 126/74
[2016-04-29 20:00] VITALS: BP 134/71
[2016-04-30] VITALS (7 sets, daily range): BP systolic 124–171; BP diastolic 72–91
[2016-04-30] MEDS: AZITHROMYCIN INJ 500 MG, VIAL MATE ADAPTER 1 EACH in D5W 250 ML IV SCH (00:16)
[2016-04-30] MEDS: LEVALBUTEROL 1.25 MG/0.5 ML CONCENTRATE NEB NEB SCH ×4 (00:55→19:42)
[2016-04-30] MEDS: cefTRIAXone SOD 2 GM in D5W MINI-BAG PLUS 50 ML IV SCH (01:35)
[2016-04-30] MEDS: PERCOCET 5MG/325MG TAB PO PRN ×2 (04:54→22:03)
[2016-04-30] MEDS: HEPARIN SOD (PORCINE) 5000 UNITS/ML VIAL SC SCH ×3 (04:54→20:50)
[2016-04-30] MEDS: SLF 3 ML SYR IV SCH ×3 (04:55→20:50)
[2016-04-30 05:45] LABS: BASO % 0.4 % (0.0-1.0); EOS # 0.2 K/mm3 (0.0-0.50); EOS % 4.1 % (0.0-3.0); LARGE UNSTAINED CELL # 0.1 K/mm3 (0.0-0.4); LARGE UNSTAINED CELL % 2.9 % (0.0-4.0); LYMPH # 0.6 K/mm3 (1.5-4.5); LYMPH % 11.4 % (24.0-44.0); MEAN CORPUSCULAR HEMOGLOBIN 31.4 pg (27.0-33.0); MEAN CORPUSCULAR HGB CONC 32.3 g/dl (32.0-36.5); MEAN CORPUSCULAR VOLUME 97.1 fl (80.0-96.0); MONO # 0.5 K/mm3 (0.0-0.8); MONO % 9.7 % (0.0-5.0); NEUTROPHILS # 3.6 K/mm3 (1.8-7.7); NEUTROPHILS % 71.5 % (36.0-66.0); PLATELET COUNT, AUTOMATED 284 k/mm3 (150-450); RED CELL DISTRIBUTION WIDTH 13.4 % (11.5-14.5)
[2016-04-30 06:28] LABS: ALBUMIN 2.8 GM/DL (3.2-5.2); ALBUMIN/GLOBULIN RATIO 0.65 (1.00-1.93); ALKALINE PHOSPHATASE 66 U/L (45-117); ALT/SGPT 35 U/L (12-78); ANION GAP 9 MEQ/L (8-16); AST/SGOT 28 U/L (15-37); BILIRUBIN,TOTAL 0.2 MG/DL (0.2-1.0); BLOOD UREA NITROGEN 19 MG/DL (7-18); CALCIUM LEVEL 9.2 MG/DL (8.8-10.2); CARBON DIOXIDE LEVEL 31 MEQ/L (21-32); CHLORIDE LEVEL 97 MEQ/L (98-107); CREATININE FOR GFR 1.28 MG/DL (0.70-1.30); GLOMERULAR FILTRATION RATE > 60.0 (>49); GLUCOSE, FASTING 131 MG/DL (80-110); POTASSIUM SERUM 4.2 MEQ/L (3.5-5.1); SODIUM LEVEL 137 MEQ/L (136-145); TOTAL PROTEIN 7.1 GM/DL (6.4-8.2)
[2016-04-30] MEDS: TIOTROPIUM INHALER/CAPSULE (SPIRIVA) INH SCH (08:26)
[2016-04-30] MEDS: MOM 30ML SUSPENSION UDC PO SCH (09:00)
--- NOTE | 2016-04-30 09:11 | REP ---
Clinical: Follow up pleural effusion. Technique: PA and lateral. Comparison: 04/29/2016. Findings: Left basilar chest tube in stable position. Subtle elevation to the left hemidiaphragm is unchanged and improved left lower lobe pleuroparenchymal changes are suggested when compared to prior examinations. The aerated lung goldstein are otherwise clear/stable and no new acute process is identified. No apical pneumothorax noted. Visualized mediastinum and cardiac silhouette normal. Skeletal structures intact. Impression: Residual pleural parenchymal changes at the left base appear relatively improved compared to prior examinations. Signed by Pb Perkins MD 04/30/2016 09:02 A
[2016-04-30] MEDS: PRAVASTATIN 20 MG TAB PO SCH (09:27)
[2016-04-30] MEDS: PANTOPRAZOLE 40MG TAB (PROTONIX) PO SCH (09:27)
[2016-04-30] MEDS: rOPINIRole 1MG TAB PO SCH ×2 (09:27→20:49)
[2016-04-30] MEDS: MAGNESIUM OXIDE 400 MG TAB (MAG-OX) PO SCH (09:27)
[2016-04-30] MEDS: FERROUS SULFATE 325MG TAB PO SCH (09:28)
[2016-04-30] MEDS: ALLOPURINOL 300 MG TAB PO SCH (09:28)
[2016-04-30] MEDS: MULTIVITAMINS/MINERALS THERAP 1 TAB PO SCH (09:28)
[2016-04-30] MEDS: CARVedilol 6.25 MG TAB PO SCH ×2 (09:28→20:49)
[2016-04-30] MEDS: DOCUSATE SODIUM 100 MG CAP PO SCH ×2 (09:28→20:49)
[2016-04-30] MEDS: NYSTATIN 100,000 UNITS/GM TOPICAL PWD 15 GM TOP SCH ×2 (09:29→20:51)
--- NOTE | 2016-04-30 09:43 | REP ---
Clinical: Evaluate pleural effusion. Comparison: 04/28/2016. Findings: Chest tube at the left base is stable. The pleuroparenchymal changes at the left base are essentially completely resolved with only minimal residual fibroatelectatic change and minuscule foci of presumed pleural gas. Residual findings are most pronounced in the deep medial portion and along the left diaphragmatic apex. Linear fibroatelectatic changes at the right base remain stable and may represent chronic changes. Remainder of lung goldstein are well-aerated and essentially clear. No new acute process is identified. The mediastinum is stable. Atherosclerotic changes to the thoracic aorta and coronary arteries noted without cardiomegaly, thoracic aneurysm, or pericardial effusion. No adenopathy noted. Tracheobronchial tree is patent. Musculoskeletal structures are intact. Limited evaluation of the upper abdomen demonstrates fatty infiltration to the liver. Impression: Significant improvement when compared to prior examination with only minimal residual pleuroparenchymal changes at the left base. Linear fibroatelectatic changes in the right lower lobe remains stable. No new acute process identified. Signed by Pb Perkins MD 04/30/2016 09:34 A
--- NOTE | 2016-04-30 10:39 | CR ---
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 He is also status post a large abdominal operation to remove his right kidney, adrenal gland, and a portion of his right colon for a liposarcoma. He started to experience pain approximately 5 days prior to admission on Thursday night when he visited his primary care physician, who thought that it was likely secondary to his incision. The pain was in his left side, in his lower left chest, and upper abdomen. The pain continued, and he went to the emergency room the next night, where he was also again complaining of pain, this time with increasing discomfort with taking deep breaths and moving in his chest and upper abdomen. Most of the pain is, however, located in his left lateral chest. It is constant, and he has had to sleep in a recliner over the last day or so. Coughing and sneezing make it worse, along with taking a deep breath. He has a cough of white milky sputum. His shortness of breath is becoming worse. He has orthopnea and is unable to lay flat over the last few nights and has woken up short of breath. He denies leg swelling. There has been no fever, chills, or sweats, and no night sweats. There has been no weight loss. He had diarrhea on Thursday. He has had no melena or hematochezia. PAST MEDICAL HISTORY: 1. Chronic obstructive pulmonary disease (COPD). On 3 liters of oxygen at night. 2. Obstructive sleep apnea (LUCA). Also, on continuous positive airway pressure (CPAP). 3. Gout. 4. Hypertension. 5. Hyperlipidemia. 6. Restless legs syndrome. 7. 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 MEDICATIONS AT HOME: - Spiriva 2.5 mg every day - ropinirole 2 mg nightly and ropinirole 1 mg every day - omeprazole 20 mg every day - Ventolin two puffs as needed shortness of breath - albuterol two puffs as needed shortness of breath - tramadol 50 mg as needed pain - allopurinol 30 mg every day - ferrous sulfate 325 mg every day - carvedilol 6.25 mg every day - Breo Ellipta one puff every day EXPOSURES: He has one cat at home. No dogs or birds. No history of exposure to tuberculosis. TRAVEL HISTORY: He has traveled to the [facility] and [facility]. No foreign travel. HABITS: He quit 3 years ago. He smoked 1 pack to 1-1/2 packs a day for 50 years. 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 He also worked in [employer]. 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 FAMILY HISTORY: Mother of diabetes and colon cancer. Father with emphysema and secondary to heart disease. A sister had at 35 secondary to a cerebral aneurysm and also had throat cancer. REVIEW OF SYSTEMS: CONSTITUTIONAL: Without fever, chills, sweats, or night sweats. No weight loss. EYES: Without diplopia. Without transmonocular blindness. Without prior jaundice. NOSE: Without epistaxis. MOUTH: Has dentures uppers and lowers. RESPIRATORY: See history of present illness (HPI). CARDIAC: Without anginal-type chest pain. Without palpitations or tachycardias. Without intermittent claudication. GASTROINTESTINAL (GI): Has had the upper quadrant abdominal pain on the left side Without nausea or vomiting or constipation. He had diarrhea 3 days prior to admission. Without melena or hematochezia. GENITOURINARY (): Without hematuria or dysuria or prior history of renal stones. Has an acquired absence of his kidney secondary to his liposarcoma procedure. NEUROLOGICAL: With paresthesias of his feet. Without paralyses or prior seizures. LYMPHATICS: Without lumps and bumps in his neck, axilla, or groin. HEMATOLOGIC: Without prolonged bleeding times. PHYSICAL EXAMINATION: VITAL SIGNS: Temperature is 99.4, heart rate is 82 in a sinus rhythm, respiratory rate of 28 without the use of accessory muscles, he is 95% saturated on 4 liters nasal cannula, and his blood pressure is 157/81. In general, the patient is a morbidly obese white male, in somewhat acute distress secondary to pain and shortness of breath. EYES: Pupils equal, round, and reactive to light. Extraocular muscles intact. Sclerae anicteric. NOSE: Without deformity. MOUTH: Shows his mucous membranes to be pink and moist. Lips and commissures without lesions. He is wearing dentures. There is no thrush. NECK: Is supple. There is no jugular venous distention. No subcutaneous emphysema. Trachea is midline. There is no thyromegaly, and he has 2+ carotid upstrokes without bruits. There is no lymphadenopathy. LUNGS: Show markedly decreased breath sounds in the right lower hemithorax with a dull percussion note in the left lower hemithorax. He has scattered rales and rhonchi throughout. ABDOMEN: Is soft, nontender. Bowel sounds are positive. He is obese. I cannot feel any hepatomegaly. There is costovertebral angle (CVA) tenderness on the left. EXTREMITIES: Show 1+ pretibial edema. No calf tenderness. No differential swelling of the upper extremities. SKIN: Is warm, dry, and perfused without cyanosis or mottling, including that of the nail beds and the knees. NEUROLOGIC: Shows II-XII intact, along with gross motor and gross sensation intact. Gait is not tested. PSYCHIATRIC: Shows him to be awake and alert, oriented times three with appropriate mood and affect and conversational. His white count today is 8.5 with a hemoglobin and hematocrit of 12.4 and 37.7 with a platelet count of 200. Differential shows 79% neutrophils, 8% lymphocytes, 7% monocytes. There are no immature forms, no toxic granulations. His electrolytes are essentially normal with a BUN and creatinine of 19 and 1.35, a glucose of 129, with a calcium of 9.0, and a corresponding albumin of 2.8, magnesium is 1.8, and his AST and ALT are 15 and 22, respectively. Troponins have been less than 0.02 yesterday in the emergency room. His chest x-ray shows opacity in the left lower hemithorax. I cannot see the diaphragmatic border. The lateral chest x-ray looks as if there is a pleural effusion and/or consolidation. He does not have volume loss, so I suspect it is a pleural effusion. Chest CT done without contrast shows a large to moderate pleural effusion in the left lower hemithorax. It looks as though it is continuous, and all the areas are in communication. He has compression and/or consolidation of the segments of the left lower lobe. There looks to be radiation changes in the right lower lobe. He has emphysematous changes throughout. There is no pathologic lymphadenopathy. IMPRESSION: 1. Probable left lower hemithorax empyema. 2. Left lower lobe pneumonia. 3. Stage IA lung cancer, left upper lobe. 4. Stage IA lung cancer, right lower lobe. Both treated with lobectomy and stereotactic body radiation therapy (SBRT), respectively. 5. Chronic obstructive pulmonary disease (COPD). 5. Obstructive sleep apnea (LUCA). 6. Hypertension. 7. Restless legs syndrome. 8. Diastolic congestive heart failure (CHF). 9. Gastroesophageal reflux disease. 10. Gout. PLAN AND DISCUSSION: His most pressing problem right now is his left lower hemithorax collection. I will place a chest tube in order to drain the collection. He is on antibiotics, which now consist of azithromycin and ceftriaxone. Sputum cultures are all pending, and I will send the pleural fluid for the requisite cytologies, hematologies, chemistries, and cultures. I suspect this is an empyema with inflammatory disease, as he has pain associated with deep breathing.
--- NOTE | 2016-04-30 13:43 | IPN ---
DATE OF EXAMINATION: 04/30/2016 SUBJECTIVE: Today, the patient tells me that his pain continues to improve. He denies chest pain, shortness of breath, fevers, chills, nausea, vomiting, or diarrhea. OBJECTIVE: VITAL SIGNS: Temperature 96.9, pulse 73, respiratory rate 18, blood pressure (BP) 130/85, oxygen (O2) saturation 97% on 3 liters. In general, he is a morbidly obese large man, up ambulating around his room. He does not appear to be in any acute distress. HEENT: He is wearing glasses. Pupils equal, round, and reactive to light. He has moist mucous membranes. Unable to assess for elevation in central venous pressure (CVP) secondary to body habitus. CARDIOVASCULAR EXAMINATION: S1, S2, regular. RESPIRATORY EXAMINATION: Is actually fairly clear. His chest tube insertion site is clean, dry, and intact. ABDOMINAL EXAMINATION: Is grossly obese. EXTREMITIES: No clubbing, cyanosis, or edema. LABORATORY STUDIES: WBC 5.0, hemoglobin 12.1, hematocrit 37.4, platelet count 284. Chemistry panel: Sodium 137, potassium 4.2, chloride 97, bicarbonate 31, BUN 19, creatinine 1.2. No new microbiology. IMAGING: The patient did have a CT scan of his chest this morning, which reveals significant improvement with only minimal residual pleuroparenchymal changes at the left base, as well as linear fibroatelectatic changes in the right lower lobe. No new acute process. ASSESSMENT AND PLAN: This is a 65-year-old man who presented with dyspnea secondary to left-sided pleural effusion and likely empyema. PROBLEMS: 1. Left-sided empyema. Dr. Perez's help has been greatly appreciated. His only culture was positive sputum for methicillin-resistant Staphylococcus aureus (MRSA). However, despite not being treated for MRSA for several days, his clinical syndrome did improve and resolve with drainage. The patient is currently on day #6 of ceftriaxone and azithromycin. I suspect tomorrow, he can be discharged on Omnicef to complete a 3-week course with followup with his primary care provider for empyema. The patient is afebrile and no new leukocytosis, no tachycardia. He did receive tissue plasminogen activator (TPA) through his chest tube twice during his stay. Dr. Perez' help has been greatly appreciated. 2. Chronic obstructive pulmonary disease (COPD). The patient is at his baseline of 3 liters, and he is on his home nebulizer treatments. 3. Anemia, stable and chronic. The patient is on ferrous sulfate. 4. Obstructive sleep apnea. The patient is compliant with continuous positive airway pressure (CPAP) at night. 5. Gout. The patient is on allopurinol. 6. Hypertension. Controlled. The patient is on carvedilol. 7. Dyslipidemia. The patient is on pravastatin. 8. Restless legs syndrome. The patient is on Requip. 9. Chronic kidney disease. Stable and at the patient's baseline. 10. History of liposarcoma with a partial colon, kidney, and adrenal gland resections. No active issues. 11. History of lung cancer, status post radiation and surgery in the distant past. 12. Gastroesophageal reflux disease. The patient is on Protonix. 13. Deep venous thrombosis (DVT) prophylaxis. The patient is on subcutaneous heparin. DISPOSITION: I suspect the patient can likely be discharged home tomorrow. I will place a home safety evaluation for him, although he does appear to be doing quite well.
--- NOTE | 2016-04-30 14:24 | IPN ---
DATE: 04/30/2016 Mr. Winchester is doing well with pain control. The pain is being well controlled at the chest tube insertion site. He was able to walk to x-ray today and is not complaining of undo shortness of breath, nor is he complaining of a cough or sputum production. His vital signs show a maximum temperature (t-max) of 98.8 with a heart rate that ranges between 73 and 80 in a sinus rhythm. There has been no recurrence of the Torsades. Respiratory rate is 18 to 20 without the use of accessory muscles. He is 97% saturated on 3 liters nasal cannula. His blood pressure is ranging between 130/85 to 115/70. His intake and output for the past 24 hours has been recorded as 2885 in and 3050 out for a negativity of 165 mL. He has only put out 50 mL from the chest tube and there is no air leak. PHYSICAL EXAMINATION: LUNGS: His lungs show bilateral wheezing on either side. Percussion note is full to the diaphragm. Wheezing is occurring during expiration. CARDIAC: Cardiac exam is without murmurs, clicks, gallops or rubs. I cannot feel his point of maximum impulse (PMI). S1 and S2 are normal. ABDOMEN: Soft and nontender. Bowel sounds are positive. There is no hepatomegaly. No costovertebral angle (CVA) tenderness that I can feel through his morbid obesity. EXTREMITIES: Show trace pretibial edema and no calf tenderness. No differential swelling of the upper extremities. SKIN: Warm, dry and perfused without cyanosis or mottling, including that of the nail beds and the knees. NECK: Supple. There is no jugular venous distention. No subcutaneous emphysema. Trachea is midline. MOUTH: Shows his mucous membranes to be pink and moist. Lips and commissures. There is no thrush. EYES: Show his pupils to be equal and reactive. Extraocular movements intact. Sclerae nonicteric. NEUROLOGIC: Shows II-XII intact along with gross motor and gross sensation intact. Gait is intact. PSYCHIATRIC: Shows him to be awake and alert, oriented times three with appropriate and affect and conversational. His white count today is 5.0 with a hemoglobin and hematocrit of 12.1 and 37.4, unchanged from yesterday with a platelet count of 284. Platelet count is stable. Differential shows 71% neutrophils, 11% lymphocytes, 9% monocytes. There are no immature forms and no toxic granulations. His electrolytes are normal with a BUN and creatinine of 18 and 1.28, glucose is 161 with a calcium of 9.2. Magnesium is 2.0 with an albumin of 2.8. His chest x-ray today shows the lung fully expanded to the chest wall. I can see the diaphragmatic border. I did order a CT on him today. The CT shows almost all the pleural effusion resolved and all the fibrinous exudate is also gone and resolved. The chest tube is in good place. The lung is fully expanded to the chest wall. There is minimal infiltrative process in the left lower lobe. The result of the TPA pleurolysis is quite gratifying. There is some residual air within the pleural space. The left kidney is intact. The right kidney, of course, is missing. He is said to have bilateral adrenalectomies, but I clearly see an adrenal gland on the left side on the CT scan. IMPRESSION: 1. Left empyema. 2. Left lower lobe pneumonia. 3. Chronic obstructive pulmonary disease (COPD). 4. Obstructive sleep apnea. 5. Gout. 6. Hypertension. 7. Chronic kidney insufficiency secondary to acquired abscense. 8. 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 9. 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 10. Stage 1A lung cancer, right lower lobe treated with SBRT therapy. Squamous cell carcinoma with different morphology. 10. Torsades de Pointes, resolved. PLAN AND DISCUSSION: I will remove his chest tube today. From my perspective he can go home tomorrow. I would suggest keeping him on at least a full 2 to 3 week course of antibiotics. He has grown out from his sputum methicillin resistant Staphylococcus aureus (MRSA), which is sensitive to vancomycin, Septra, Zyvox, and clindamycin. Nothing has grown out from the pleural fluid.
[2016-05-01] MEDS: AZITHROMYCIN INJ 500 MG, VIAL MATE ADAPTER 1 EACH in D5W 250 ML IV SCH (00:06)
[2016-05-01] MEDS: LEVALBUTEROL 1.25 MG/0.5 ML CONCENTRATE NEB NEB SCH ×2 (01:49→08:17)
[2016-05-01] MEDS: cefTRIAXone SOD 2 GM in D5W MINI-BAG PLUS 50 ML IV SCH (02:26)
[2016-05-01 03:08] VITALS: BP 139/80
[2016-05-01 05:20] LABS: BASO % 0.8 % (0.0-1.0); EOS # 0.2 K/mm3 (0.0-0.50); LARGE UNSTAINED CELL # 0.1 K/mm3 (0.0-0.4); LARGE UNSTAINED CELL % 2.9 % (0.0-4.0); LYMPH # 0.7 K/mm3 (1.5-4.5); LYMPH % 11.9 % (24.0-44.0); MONO # 0.4 K/mm3 (0.0-0.8); NEUTROPHILS # 3.4 K/mm3 (1.8-7.7); NEUTROPHILS % 71.4 % (36.0-66.0); PLATELET COUNT, AUTOMATED 292 k/mm3 (150-450); RED CELL DISTRIBUTION WIDTH 13.7 % (11.5-14.5); WHITE BLOOD COUNT 4.7 K/mm3 (4.0-10.0)
[2016-05-01 05:28] LABS: ALBUMIN 2.7 GM/DL (3.2-5.2); ALBUMIN/GLOBULIN RATIO 0.68 (1.00-1.93); ALKALINE PHOSPHATASE 69 U/L (45-117); ALT/SGPT 33 U/L (12-78); ANION GAP 9 MEQ/L (8-16); AST/SGOT 27 U/L (15-37); BILIRUBIN,TOTAL 0.2 MG/DL (0.2-1.0); BLOOD UREA NITROGEN 17 MG/DL (7-18); CALCIUM LEVEL 9.1 MG/DL (8.8-10.2); CARBON DIOXIDE LEVEL 33 MEQ/L (21-32); CHLORIDE LEVEL 96 MEQ/L (98-107); CREATININE FOR GFR 1.26 MG/DL (0.70-1.30); GLOMERULAR FILTRATION RATE > 60.0 (>49); GLUCOSE, FASTING 125 MG/DL (80-110); MAGNESIUM LEVEL 2.1 MG/DL (1.8-2.4); POTASSIUM SERUM 3.9 MEQ/L (3.5-5.1); SODIUM LEVEL 138 MEQ/L (136-145); TOTAL PROTEIN 6.7 GM/DL (6.4-8.2)
[2016-05-01] MEDS: HEPARIN SOD (PORCINE) 5000 UNITS/ML VIAL SC SCH (05:42)
[2016-05-01] MEDS: SLF 3 ML SYR IV SCH (05:42)
[2016-05-01 07:50] VITALS: BP 160/96
[2016-05-01] MEDS: TIOTROPIUM INHALER/CAPSULE (SPIRIVA) INH SCH (08:17)
[2016-05-01] MEDS ORDERED: PERCOCET PO (08:30)
--- NOTE | 2016-05-01 08:38 | REP ---
Clinical: Follow up pleural effusion. Technique: PA and lateral. Comparison: 04/30/2016. Findings: Right basilar chest tube has been removed. No significant change from prior examination. No obvious pneumothorax. Mild chronic pleuroparenchymal changes at the left base. No new acute process appreciated. Mediastinum and cardiac silhouette stable. Skeletal structures intact. Impression: Status post chest tube removal. Chronic / stable changes to the left base. No new acute process. Signed by Pb Perkins MD 05/01/2016 08:30 A
[2016-05-01] MEDS: MOM 30ML SUSPENSION UDC PO SCH (08:49)
[2016-05-01] MEDS: DOCUSATE SODIUM 100 MG CAP PO SCH (08:49)
[2016-05-01 09:18] VITALS: BP 160/96
[2016-05-01] MEDS: rOPINIRole 1MG TAB PO SCH (09:18)
[2016-05-01] MEDS: FERROUS SULFATE 325MG TAB PO SCH (09:18)
[2016-05-01] MEDS: PANTOPRAZOLE 40MG TAB (PROTONIX) PO SCH (09:18)
[2016-05-01] MEDS: MULTIVITAMINS/MINERALS THERAP 1 TAB PO SCH (09:18)
[2016-05-01] MEDS: ALLOPURINOL 300 MG TAB PO SCH (09:18)
[2016-05-01] MEDS: CARVedilol 6.25 MG TAB PO SCH (09:18)
[2016-05-01] MEDS: MAGNESIUM OXIDE 400 MG TAB (MAG-OX) PO SCH (09:19)
[2016-05-01] MEDS: PRAVASTATIN 20 MG TAB PO SCH (09:19)
[2016-05-01] MEDS: NYSTATIN 100,000 UNITS/GM TOPICAL PWD 15 GM TOP SCH (09:21)
[2016-05-01] MEDS ORDERED: DOXY-278 PO (10:20)
--- NOTE | 2016-05-01 18:14 | DSES ---
DATE OF ADMISSION: 04/24/2016 DATE OF DISCHARGE: 05/01/2016 DISCHARGE DIAGNOSIS: Left empyema. SECONDARY DIAGNOSES: 1. Left lower lobe pneumonia. 2. Chronic obstructive pulmonary disease (COPD). 3. Chronic hypoxic respiratory failure. 4. Obstructive sleep apnea. 5. Gout. 6. Chronic kidney disease. 7. Hypertension. 8. History of poorly differentiated squamous cell lung cancer. 9. Possible torsades de pointes. CONSULTS: Dr. Perez, cardiothoracic surgery. HOSPITAL COURSE: The patient is a 55-year-old male with chronic hypoxic respiratory failure with 3 liters of oxygen during the day and continuous positive airway pressure (CPAP) at night for underlying obstructive sleep apnea and a history of lung cancer status post radiation and surgery, who presented with worsening shortness of breath and green productive sputum for several days. He was found to have a left-sided pleural effusion and second empyema. He was started on empiric antibiotics for community-acquired pneumonia. He did have a chest tube placed. His symptoms did gradually improve. He did require tissue plasminogen activator (tPA) through his chest tube twice, but over time, his symptoms gradually resolved and his imaging did improve alongside it. Dr. Perez's help has been greatly appreciated. At the present time, the patient denies any chest pain. He says his cough has resolved. Denies shortness of breath, fevers, chills, nausea, vomiting, or diarrhea. OBJECTIVE: VITAL SIGNS: Temperature 97.6, pulse 94, respiratory rate 18, blood pressure 150/96, oxygen saturation 93% on 3 liters nasal cannula. GENERAL: He is a very large, morbidly obese, man, up and ambulating around his room. He did not appear to be in any acute distress. HEENT: He is wearing glasses. He has moist mucous membranes. Difficult to assess for any elevation of central venous pressure (CVP) secondary to body habitus. CARDIOVASCULAR EXAMINATION: S1, S2. Regular. He is not tachycardic on my examination. RESPIRATORY EXAMINATION: Actually fairly good air movement bilaterally, with some diffuse end-expiratory wheeze. ABDOMINAL EXAMINATION: Grossly obese. EXTREMITIES: No clubbing, cyanosis or edema. LABORATORY STUDIES: WBC 4.7, hemoglobin 11.8, hematocrit 36.8, platelet count 292. Chemistry panel: Sodium 138, potassium 3.9, chloride 96, bicarbonate 33, BUN 17, creatinine 1.2. MICROBIOLOGY: Blood cultures were negative after five days. Respiratory and polymerase chain reaction (PCR) panel was negative. Gram stain for the pleural fluid and culture were negative. Occult stool for blood was negative. Sputum was positive for methicillin-resistant Staphylococcus aureus (MRSA), sensitive to tetracycline. IMAGING: Patient had a chest CT on 04/30/2016 which revealed significant improvement with only minimal residual pleural parenchymal changes at the left base. This is markedly improved from his initial presenting CT on 04/24/2016, which had upper lobe predominant emphysema, large partially loculated left pleural effusion, consolidation at the left lung base. ASSESSMENT AND PLAN: This is a 65-year-old man who presented with left-sided empyema and pneumonia. PROBLEMS: 1. Left-sided empyema and pneumonia. Dr. Perez's help has been greatly appreciated. His only culture that returned positive was methicillin-resistant Staphylococcus aureus (MRSA) in his sputum. He was treated for community-acquired pneumonia with azithromycin and ceftriaxone for six days in the hospital and his symptoms did resolve. He was afebrile and did not have leukocytosis, nor any tachycardia. Based on the sensitivities of it being sensitive to tetracycline, at this time the patient will be discharged on doxycycline 100 mg by mouth twice a day, to complete a prolonged course for empyema. He did receive tissue plasminogen activator (tPA) through his chest tube twice during his stay to help break up the loculations. He is significantly improved at this time, with his chest pain resolved and his dyspnea back at his baseline. 2. Chronic hypoxic respiratory failure secondary to chronic obstructive pulmonary disease (COPD). The patient is at his baseline. He is continued on all of his home inhalers and nebulizer treatments. 3. Anemia, chronic. Stable. He has iron deficiency anemia. He is continued on ferrous sulfate. 4. Obstructive sleep apnea. He is compliant with continuous positive airway pressure (CPAP) . 5. Gout. Patient on allopurinol. 6. Hypertension. Controlled on carvedilol. 7. Dyslipidemia. The patient is continued on pravastatin. 8. Restless leg syndrome. The patient is continued on Requip. 9. Chronic kidney disease. Stable. The patient is at his baseline. 10. History of liposarcoma with history of partial colon, kidney and adrenal gland resections. There was no active issue during his stay. 11. History of lung cancer status post radiation and surgery in the distant past, likely a contributing factor to his baseline chronic hypoxic respiratory failure. 12. Gastroesophageal reflux disease. The patient is to continue on Protonix. 13. Deep venous thrombosis (DVT) prophylaxis. He has been on subcutaneous heparin. DISPOSITION: The patient is being discharged home. He is at his functional baseline. His presenting complaints have all resolved. He is to follow up with his primary care provider (PCP) within seven days and follow up with Dr. Perez within seven days. His activity and diet are as prior to admission. He is to return to the emergency room (ER) if his symptoms worsen. MEDICATIONS AT THE TIME OF DISCHARGE: - doxycycline 100 mg by mouth twice a day for 15 days. - Percocet 5/325 mg every 4 hours as needed for pain, quantity 18 - Tylenol 1 gram every 6 hours as needed for pain, not to exceed 3 grams of acetaminophen per day - Ventolin HFA two puffs inhaled four times a day as needed for shortness of breath - albuterol sulfate 2.5 mg inhaled via nebulizer treatment four times a day as needed for shortness of breath - allopurinol 300 mg daily - carvedilol 6.25 mg by mouth twice a day - ferrous sulfate 325 mg daily - Breo Ellipta 200/25 one puff inhaled daily - magnesium oxide 400 mg daily - multivitamin one tablet daily - omeprazole 20 mg daily - pravastatin 20 mg daily - Requip 1 mg, total 3 mg daily - Spiriva 2.5 mcg inhaled daily - tramadol 25 mg every 12 hours as needed for pain Greater than 30 minutes spent organizing disposition.
--- NOTE | 2016-05-01 22:12 | ECGEPIP ---
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 SIMILAR 04/24/16 BUT FOR V6 Electronically Signed On 05-01-2016 22:12:40 EDT by Trung Nobles
== END 2016-05-01 11:18 | disposition home or self-care (01) | DRG 177 ==
LOC: M ED 20:00 → M ED INP 21:45 → M PCU 04-25 13:15
PROVIDERS: ADMIT Internal Medicine; ATTEND Hospitalist
PROC: 0W9B30Z Drainage of Left Pleural Cavity with Drainage Device, Percutaneous Approach (ICD-10-PCS; principal; 2016-04-25)
PROC: 3E0L3TZ Introduction of Destructive Agent into Pleural Cavity, Percutaneous Approach (ICD-10-PCS; 2016-04-25)
PROC: 0W9830Z Drainage of Chest Wall with Drainage Device, Percutaneous Approach (ICD-10-PCS; 2016-04-26)
PROC: 3E0L3TZ Introduction of Destructive Agent into Pleural Cavity, Percutaneous Approach (ICD-10-PCS; 2016-04-28)
DX: J86.9 Pyothorax without fistula (principal); J18.9 Pneumonia, unspecified organism; I50.32 Chronic diastolic (congestive) heart failure; E87.3 Alkalosis; J96.11 Chronic respiratory failure with hypoxia; J90 Pleural effusion, not elsewhere classified; Z68.41 Body mass index [BMI] 40.0-44.9, adult; I47.2 Ventricular tachycardia; J44.9 Chronic obstructive pulmonary disease, unspecified; E66.01 Morbid (severe) obesity due to excess calories; G47.33 Obstructive sleep apnea (adult) (pediatric); N18.3 Chronic kidney disease, stage 3 (moderate); M10.9 Gout, unspecified; I11.0 Hypertensive heart disease with heart failure; E78.5 Hyperlipidemia, unspecified; D53.9 Nutritional anemia, unspecified; G25.81 Restless legs syndrome; Z85.118 Personal history of other malignant neoplasm of bronchus and lung; Z92.3 Personal history of irradiation; Z79.899 Other long term (current) drug therapy; Z88.8 Allergy status to other drugs, medicaments and biological substances; Z99.81 Dependence on supplemental oxygen; Z85.831 Personal history of malignant neoplasm of soft tissue; Z90.2 Acquired absence of lung [part of]; Z90.5 Acquired absence of kidney; Z90.49 Acquired absence of other specified parts of digestive tract

== ENCOUNTER → 2016-04-24 | Outpatient (REF) | payer MEDICARE, MEDICAID ==
[~2016-04-24] MED LIST changes: +ACET50TAOT PO; +FERR325T PO; +TRAM50TA2 PO; +VITMTA PO
== END ==
LOC: M SFHCLERA 17:54
PROVIDERS: ATTEND Nurse Practitioner Family
DX: R10.32 Left lower quadrant pain (principal)

== ENCOUNTER → 2016-05-05 | Outpatient (CLI) | payer MEDICARE, MEDICAID ==
[~2016-05-05] MED LIST changes: +ACET50TAOT PO; +DOXY-278 PO; +FERR325T PO; +KETO10TAB PO; +VITMTA PO
[2016-05-05 08:07] LABS: ANION GAP 10 MEQ/L (8-16); BLOOD UREA NITROGEN 18 MG/DL (7-18); CALCIUM LEVEL 9.1 MG/DL (8.8-10.2); CARBON DIOXIDE LEVEL 28 MEQ/L (21-32); CHLORIDE LEVEL 101 MEQ/L (98-107); CREATININE FOR GFR 1.26 MG/DL (0.70-1.30); GLOMERULAR FILTRATION RATE > 60.0 (>49); GLUCOSE, FASTING 143 MG/DL (80-110); MAGNESIUM LEVEL 1.7 MG/DL (1.8-2.4); POTASSIUM SERUM 4.2 MEQ/L (3.5-5.1); SODIUM LEVEL 139 MEQ/L (136-145)
== END ==
LOC: M LAB 06:36
PROVIDERS: ATTEND Internal Medicine
DX: E87.6 Hypokalemia (principal)

== ENCOUNTER 2016-05-06 19:15 | Emergency (ER) | payer MEDICARE, MEDICAID ==
[~2016-05-06] VITALS: Ht 182.9 cm; Wt 140.6 kg
[~2016-05-06 19:15] MED LIST changes: -KETO10TAB PO
[2016-05-06 20:10] LABS: VENOUS BASE EXCESS 1.4 (-2.0-2.0); VENOUS O2 SATURATION 97.8 % (60.0-80.0); VENOUS PARTIAL PRESSURE CO2 41.9 mmHg (38.0-50.0); VENOUS PARTIAL PRESSURE O2 106.5 mmHg (30.0-50.0); VENOUS STANDARD HCO3 25.7 MEQ/L; VENOUS TOTAL CO2 27.4 MEQ/L (24.0-28.0)
[2016-05-06 20:13] LABS: BASO % 0.5 % (0.0-1.0); EOS # 0.2 K/mm3 (0.0-0.50); EOS % 2.6 % (0.0-3.0); LARGE UNSTAINED CELL # 0.2 K/mm3 (0.0-0.4); LARGE UNSTAINED CELL % 2.5 % (0.0-4.0); LYMPH % 14.1 % (24.0-44.0); MEAN CORPUSCULAR HEMOGLOBIN 32.1 pg (27.0-33.0); MEAN CORPUSCULAR HGB CONC 32.8 g/dl (32.0-36.5); MEAN CORPUSCULAR VOLUME 97.9 fl (80.0-96.0); MONO # 0.4 K/mm3 (0.0-0.8); MONO % 5.6 % (0.0-5.0); NEUTROPHILS # 5.3 K/mm3 (1.8-7.7); NEUTROPHILS % 74.7 % (36.0-66.0); PLATELET COUNT, AUTOMATED 266 k/mm3 (150-450); RED CELL DISTRIBUTION WIDTH 14.1 % (11.5-14.5); WHITE BLOOD COUNT 7.1 K/mm3 (4.0-10.0)
[2016-05-06] MEDS ORDERED: KETOROLAC 30 MG/ML VIAL (J1885) IV ONE (20:15)
[2016-05-06 20:16] LABS: INR 0.97
[2016-05-06 20:44] LABS: ANION GAP 10 MEQ/L (8-16); BLOOD UREA NITROGEN 24 MG/DL (7-18); CALCIUM LEVEL 9.4 MG/DL (8.8-10.2); CARBON DIOXIDE LEVEL 27 MEQ/L (21-32); CHLORIDE LEVEL 102 MEQ/L (98-107); CREATININE FOR GFR 1.37 MG/DL (0.70-1.30); GLOMERULAR FILTRATION RATE 55.9 (>49); GLUCOSE, FASTING 164 MG/DL (80-110); POTASSIUM SERUM 4.2 MEQ/L (3.5-5.1); SODIUM LEVEL 139 MEQ/L (136-145)
[2016-05-06] MEDS ORDERED: NS 500 ML IV ONE (21:00)
[2016-05-06] MEDS ORDERED: ISOVUE-370 76% 100ML VIAL (Q9967) As Ordered ONE (21:19)
--- NOTE | 2016-05-06 22:10 | REPUSA ---
CT of the chest without contrast Clinical statement: dyspnea. Technique: Multiple axial CT images were obtained with 5 mm cuts through the chest without administra tion of contrast. Comparison: 04/28/2016. Findings: There is no thoracic lymphadenopathy. The visualized portions of the thyroid gland is unrem arkable. There are no pericardial or pleural effusions. There are no acute infiltrates. Mild emphysem a seen in the lung apices bilaterally. Scarring is seen in the lower lungs bilaterally. The previousl y loculated diffusion in the left lung base has resolved. Limited imaging of the upper abdomen demons trates diffuse low attenuation of the liver. There are no suspicious osseous lesions. Impression: 1. No acute infiltrate or pleural effusion. Interval resolution of consolidation and effusion in the left lung base. Scarring is noted bilaterally in the lower lungs. 2. Stable mild emphysema in the lung apices. 3. Stable fatty infiltration of the liver.
[2016-05-06] MEDS ORDERED: dexameTHASONE 20 MG/5 ML VIAL (J1100) IV ONE (22:15)
[2016-05-07] MEDS ORDERED: rOPINIRole 1MG TAB PO ONE (01:56)
[2016-05-07 02:05] VITALS: BP 134/80
[2016-05-07] MEDS ORDERED: KETO10TAB PO (02:10)
--- NOTE | 2016-05-07 05:53 | ECGEPIP ---
Stationary ECG Study [facility] - ED Test Date: 2016-05-06 Pat Name: ARIN GUADARRAMA Department: Room: - Gender: M Qa Reviewer: TarangoB: 1950 Requested By: DENIS MONTENEGRO Order Number: [id number] Reading MD: Kev Katz Measurements Intervals [place] Rate: 95 P: 30 [place]: 170 QRS: -16 QRSD: 82 T: -29 QT: 367 QTc: 462 Interpretive Statements SINUS RHYTHM WITH OCCASIONAL SUPRAVENTRICULAR PREMATURE COMPLEXES LAE SIMILAR TO 05/01/16 Electronically Signed On 05-07-2016 5:52:57 EDT by Kev Katz
--- NOTE | 2016-05-07 08:04 | REP ---
Clinical: Dyspnea. Comparison: 05/01/2016. Findings: Examination is limited by portable technique, underpenetration and poor inspiratory effort. Trace bibasilar atelectasis cannot be excluded. Small left pleural reaction cannot be excluded. No pneumothorax. Impression: Limited portable examination suggesting bibasilar atelectasis and possible small left pleural reaction. Signed by Pb Perkins MD 05/07/2016 07:56 A
--- NOTE | 2016-05-08 07:20 | ECGEPIP ---
Stationary ECG Study [facility] - ED Test Date: 2016-05-07 Pat Name: ARIN GUADARRAMA Department: Room: - Gender: M Bi Tri Operator: fidel : 1950 Requested By: DENIS MONTENEGRO Order Number: [id number] Reading MD: Meme Bradley Measurements Intervals [place] Rate: 80 P: -6 MO: 158 QRS: -13 QRSD: 89 T: -3 QT: 349 QTc: 404 Interpretive Statements SINUS RHYTHM NONSPECIFIC T-WAVE ABNORMALITY DECREASED RATE 05/06/16 Electronically Signed On 05-08-2016 7:19:55 EDT by Meme Bradley
== END 2016-05-07 02:23 | disposition home or self-care (01) ==
LOC: M ED 22:02
DX: R07.81 Pleurodynia (principal); Z98.890 Other specified postprocedural states; I10 Essential (primary) hypertension; E78.5 Hyperlipidemia, unspecified; J44.9 Chronic obstructive pulmonary disease, unspecified; K21.9 Gastro-esophageal reflux disease without esophagitis; Z87.09 Personal history of other diseases of the respiratory system; Z88.3 Allergy status to other anti-infective agents; Z79.899 Other long term (current) drug therapy; Z79.51 Long term (current) use of inhaled steroids
CPT/HCPCS: 71010; 71250; 80048; 82550; 82553; 82803; 83605; 84484; 85025; 85610; 85730; 87040; 93005; 96361; 96374; 96375; 99285; J1100; J1885

== ENCOUNTER → 2016-05-15 | Outpatient (CLI) | payer MEDICARE, MEDICAID ==
[~2016-05-15] MED LIST changes: +KETO10TAB PO
--- NOTE | 2016-05-15 09:33 | REP ---
CHEST, TWO VIEWS: PA and lateral views of the chest are performed and compared to prior studies, most recent of which is 05/06/2016. Once again, there is mild elevation of the left hemidiaphragm with adjacent pleuroparenchymal scarring. Fibrotic scarring is seen in the right base, also stable. There is no new infiltrate. The heart is normal in size. The mediastinal silhouette is unchanged. IMPRESSION: Chronic stable findings with no evidence of acute pulmonary disease. Signed by Jorden Weinstein MD 05/15/2016 04:49 P
== END ==
LOC: M SMT 08:04
PROVIDERS: ATTEND Thoracic Surgery (Cardiothoracic Vascular Surgery)
DX: C34.12 Malignant neoplasm of upper lobe, left bronchus or lung (principal)

== ENCOUNTER 2016-06-18 21:08 | Inpatient (IN) | payer MEDICARE, MEDICAID ==
[~2016-06-18] VITALS: Ht 193 cm; Wt 154.5 kg
[~2016-06-18 21:08] MED LIST changes: +rOPINIRole 1MG TAB PO SCH
--- NOTE | 2016-06-18 22:30 | REPUSA ---
CT of the head Clinical history: Headache. CVA. Technique: Multiple axial CT images were obtained through the head without administration of contrast . Comparison: None. Findings: The ventricles and sulci are symmetric bilaterally. There is no evidence of acute hemorrhag e or infarct. There is no midline shift, mass effect, or extra-axial fluid collection. The osseous st ructures are unremarkable. The visualized paranasal sinuses and mastoid air cells are clear. Impression: Negative study.
[2016-06-18 22:36] LABS: BASO % 0.3 % (0.0-1.0); EOS # 0.2 K/mm3 (0.0-0.50); EOS % 2.5 % (0.0-3.0); LARGE UNSTAINED CELL # 0.2 K/mm3 (0.0-0.4); LARGE UNSTAINED CELL % 1.7 % (0.0-4.0); LYMPH # 1.6 K/mm3 (1.5-4.5); LYMPH % 14.5 % (24.0-44.0); MEAN CORPUSCULAR HEMOGLOBIN 32.7 pg (27.0-33.0); MEAN CORPUSCULAR HGB CONC 33.5 g/dl (32.0-36.5); MEAN CORPUSCULAR VOLUME 97.7 fl (80.0-96.0); MONO # 0.6 K/mm3 (0.0-0.8); MONO % 6.2 % (0.0-5.0); NEUTROPHILS # 7.6 K/mm3 (1.8-7.7); NEUTROPHILS % 74.7 % (36.0-66.0); PLATELET COUNT, AUTOMATED 166 k/mm3 (150-450); RED CELL DISTRIBUTION WIDTH 14.1 % (11.5-14.5); WHITE BLOOD COUNT 10.2 K/mm3 (4.0-10.0)
[2016-06-18 22:43] LABS: INR 1.05
[2016-06-18 22:59] LABS: ANION GAP 8 MEQ/L (8-16); BLOOD UREA NITROGEN 27 MG/DL (7-18); CALCIUM LEVEL 8.8 MG/DL (8.8-10.2); CARBON DIOXIDE LEVEL 26 MEQ/L (21-32); CHLORIDE LEVEL 101 MEQ/L (98-107); CREATININE FOR GFR 1.39 MG/DL (0.70-1.30); GLOMERULAR FILTRATION RATE 54.9 (>49); GLUCOSE, FASTING 128 MG/DL (80-110); POTASSIUM SERUM 3.8 MEQ/L (3.5-5.1); SODIUM LEVEL 135 MEQ/L (136-145)
--- NOTE | 2016-06-18 23:10 | REPUSA ---
Clinical history: CVA. Comparison: None. Findings: The mediastinum and cardiac silhouette are within normal limits. There is a right lower lo be infiltrate. No pleural effusion or pneumothorax is seen. The osseous structures and soft tissues a re unremarkable. Impression: Right lower lobe infiltrate.
[2016-06-18] MEDS ORDERED: PIPERACILLIN/TAZOBACTAM SOD 3.375 GM in D5W MINI-BAG PLUS 50 ML IV ONE (23:30)
[2016-06-18] MEDS ORDERED: VANCOMYCIN HCL 1,000 MG, VIAL MATE ADAPTER 1 EACH in D5W 250 ML IV ONE (23:30)
[2016-06-18] MEDS ORDERED: ASPIRIN 325 MG TAB PO ONE (23:45)
[2016-06-18] MEDS ORDERED: OXYC1TAB23 PO (23:49)
[2016-06-18] MEDS ORDERED: ROPI1TAB PO (23:51)
[2016-06-19] VITALS (7 sets, daily range): BP systolic 106–144; BP diastolic 56–89
[2016-06-19] MEDS ORDERED: BISACODYL 10 MG SUPP PR PRN (01:30)
[2016-06-19] MEDS ORDERED: ONDANSETRON 4MG/2ML VIAL (J2405) IV PRN (01:30)
[2016-06-19] MEDS ORDERED: IPRASOL4 INH (01:42)
[2016-06-19] MEDS ORDERED: IPRATROPIUM 0.5MG/ALBUTEROL 2.5MG INH SOL UD 3ML (DUONEB)(J7620) NEB PRN (01:45)
[2016-06-19] MEDS ORDERED: ALBUTEROL SULFATE 2.5 MG/0.5 ML INH NEB SOLN INH PRN (01:45)
[2016-06-19] MEDS ORDERED: ALBUTEROL 90 MCG/ACT 8GM HFA INHALER INH PRN (01:45)
[2016-06-19] MEDS ORDERED: traMADol 50 MG TAB PO PRN (01:45)
[2016-06-19] MEDS ORDERED: PERCOCET 5MG/325MG TAB PO PRN (01:45)
--- NOTE | 2016-06-19 01:57 | PHACANCOPD ---
PHARMACY VANCOMYCIN DOSING Pt Demographics Demographics Patient Age:65 , Weight: , Gender: male Adjusted Body Weight Date: 06/19/16, Adjusted Body Weight: [110] Kg Events Past 24 Hours Events Past 24 Hours: NO: Dialysis, Diuretic Therapy, Change in CrCl, Fever, Elevation in WBC, Pending Diagnostics, Pending Procedures, Other Vancomycin Vancomycin Target Ranges: 15-20 mcg/ml Vancomycin Load Y/N: Yes Load Dose Date Time Vancomycin Load Dose: 2000MG Date: 06-19 Time: 0400 Vancomycin Dose Date: 06/19/16. Current Vancomycin Dose: [1G Q8H] Intermittent Dosing?: No Labs Labs Item Value Date Time White Blood Count 10.2 K/mm3 H 06/18/16 222 Blood Urea Nitrogen 27 MG/DL H 06/18/16 2228 Creatinine 1.39 MG/DL H 06/18/16 222 Vital Signs Label Value Date Time Patient Temperature 97.5 degrees F 06/18/162108 Temperature Source Temporal 06/18/162108 Micro Microbiology 06/18/16 Blood Culture, Received Pending 06/18/16 Blood Culture, Received Pending Creatinine Clearance Date:06/19/16. Creatinine Clearance: [66]. Pending Labs Trough ordered for 06-19 @1900 Assessment and Plan Maintaining Current Dose?: Yes Reason for dose change: No Dose Change Pharmacist Note Pharmacist Note Date: 06/19/16. Pharmacist note:dosed at 1000mg q8h with a trough ordered for @1900. Will continue to monitor and make adjustments as needed. YASIR ROSS [facility] June 19, 2016 01:57
[2016-06-19] MEDS ORDERED: LevoFLOXacin IV 750 MG in APPROPRIATE DILUENT 1 EA IV SCH (02:00)
[2016-06-19] MEDS ORDERED: VANCOMYCIN HCL 1,000 MG, VIAL MATE ADAPTER 1 EACH in D5W 250 ML IV SCH (04:00)
[2016-06-19 05:41] LABS: BASO % 0.3 % (0.0-1.0); EOS # 0.2 K/mm3 (0.0-0.50); EOS % 2.1 % (0.0-3.0); LARGE UNSTAINED CELL # 0.2 K/mm3 (0.0-0.4); LARGE UNSTAINED CELL % 1.8 % (0.0-4.0); LYMPH # 1.2 K/mm3 (1.5-4.5); LYMPH % 14.6 % (24.0-44.0); MEAN CORPUSCULAR HGB CONC 33.1 g/dl (32.0-36.5); MEAN CORPUSCULAR VOLUME 99.6 fl (80.0-96.0); MONO # 0.5 K/mm3 (0.0-0.8); MONO % 5.6 % (0.0-5.0); NEUTROPHILS # 6.3 K/mm3 (1.8-7.7); NEUTROPHILS % 75.6 % (36.0-66.0); PLATELET COUNT, AUTOMATED 158 k/mm3 (150-450); RED CELL DISTRIBUTION WIDTH 13.9 % (11.5-14.5); WHITE BLOOD COUNT 8.3 K/mm3 (4.0-10.0)
[2016-06-19] MEDS: CARVedilol 6.25 MG TAB PO SCH ×3 (05:42→20:58)
[2016-06-19] MEDS: IPRATROPIUM 0.5MG/ALBUTEROL 2.5MG INH SOL UD 3ML (DUONEB)(J7620) NEB SCH ×4 (05:42→20:38)
[2016-06-19 06:01] LABS: ALBUMIN 3.4 GM/DL (3.2-5.2); ALBUMIN/GLOBULIN RATIO 0.92 (1.00-1.93); ALKALINE PHOSPHATASE 68 U/L (45-117); ALT/SGPT 38 U/L (12-78); ANION GAP 9 MEQ/L (8-16); AST/SGOT 23 U/L (15-37); BILIRUBIN,TOTAL 0.5 MG/DL (0.2-1.0); BLOOD UREA NITROGEN 24 MG/DL (7-18); CALCIUM LEVEL 8.6 MG/DL (8.8-10.2); CARBON DIOXIDE LEVEL 27 MEQ/L (21-32); CHLORIDE LEVEL 101 MEQ/L (98-107); GLOMERULAR FILTRATION RATE 54.5 (>49); GLUCOSE, FASTING 135 MG/DL (80-110); MAGNESIUM LEVEL 1.7 MG/DL (1.8-2.4); POTASSIUM SERUM 3.9 MEQ/L (3.5-5.1); SODIUM LEVEL 137 MEQ/L (136-145); TOTAL PROTEIN 7.1 GM/DL (6.4-8.2)
[2016-06-19] MEDS: HEPARIN SOD (PORCINE) 5000 UNITS/ML VIAL SC SCH ×3 (07:00→21:00)
[2016-06-19] MEDS: PIPERACILLIN/TAZOBACTAM SOD 3.375 GM in D5W MINI-BAG PLUS 50 ML IV SCH ×3 (07:41→23:49)
--- NOTE | 2016-06-19 07:53 | HPE ---
DATE OF ADMISSION: 06/19/2016 PRIMARY CARE PHYSICIAN: Dr. Pike TOOTH CUTTER: Dr. Almeida COST RECORDER: Dr. Kimball CODE STATUS: DO NOT INTUBATE (DNI). CHIEF COMPLAINT: Left upper and lower extremity weakness and numbness, dysphasia and blurry vision as well as shortness of breath. HISTORY OF PRESENT ILLNESS: Mr. Winchester is a 65-year-old male with multiple past medical history who presented to the emergency room (ER) due to experiencing left side of the body weakness and numbness as well as episode of altered mental status as well as dysphasia and blurry vision. The patient's present episode started today around 1:40 p.m. when he was walking with his walker toward the laundry room when he noticed that his left upper and lower extremity were weak and numb. He also noticed blurry vision, headache and mild confusion however he continue ambulating toward the laundry room. He also noticed feeling warm which he thought it was because he was in the laundry room; however, two hours later when he was speaking with his daughter he noticed that patient had slurred speech and was confused. Patient denied palpitation, racing or skipping heartbeat, or lose of consciousness before, during or after episodes. He also denied seizure type activity or losing control of his bowel or bladder. The patient also expressed that for the past several days the patient has been coughing with sputum production of yellow and greenish color. He continued to be symptomatic until coming to the ER. When I was interviewing him, patient believed that his weakness is better and he mostly feels tingling in both left upper and lower extremities. The patient also feels that his speech is better and the blurry vision has decreased. The patient denies trauma to the head or new rash or lesion. The patient did not have nausea or vomiting; however, the patient had one episode of diarrhea yesterday. The patient has a history of empyema in April when he was admitted to [facility] and Dr. Perez was consulted for chest tube. Patient has multiple histories of pneumonia. ALLERGIES: - HEXACHLOROPHENE PAST MEDICAL HISTORY: 1. Left empyema. 2. Left lower lobe pneumonia. 3. Chronic obstructive pulmonary disease (COPD) on 2 liters oxygen at night. 4. Sleep apnea on CPAP. 5. Gout. 6. Hypertension. 7. Chronic kidney insufficiency. 8. 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 9. 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 10. Stage IA lung cancer right lower lobe treated with stereotactic body radiation therapy (SBRT) treatment of squamous cell carcinoma with different morphology. 11. Torsades de pointes, resolved. PAST SURGICAL HISTORY: 1. Liposarcoma with resection of the right kidney and right adrenal gland resection. 2. Right lower lobe radiation. 3. Left upper lobectomy secondary to lung cancer. 4. Fused left ankle. 5. Cholecystectomy. 6. Tonsillectomy. 7. Chest tube. HOME MEDICATIONS: - acetaminophen 1000 mg by mouth every 6 hours as needed pain - Ventolin HFA two puff inhaler four times a day as needed shortness of breath - albuterol ipratropium 1 solution INH four times a day as needed shortness of breath - allopurinol 300 mg by mouth daily - carvedilol 6.25 mg by mouth twice a day - ferrous sulfate 325 mg by mouth daily - fluticasone vilanterol one puff inhaler daily - magnesium oxide 400 mg by mouth daily - multivitamin one tablet by mouth daily - omeprazole 20 mg by mouth daily - oxycodone/acetaminophen one tablet by mouth every 4 hours as needed pain - pravastatin sodium 20 mg by mouth daily - ropinirole HCl 1 mg by mouth daily - ropinirole HCl 2 mg by mouth at bedtime - Spiriva 2 inhalations INH daily - tramadol 25 mg by mouth every 12 hours as needed pain SOCIAL HISTORY: The patient denies any illicit drug use or alcohol usage. The patient quit smoking 3 years ago; however before that, the patient had a history of 50 years of smoking about 1.5 packs per day. The patient denies recent travel or sick contacts. The patient lives alone. The patient has one cat. 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 FAMILY HISTORY: The patient's mother due to diabetes mellitus and liver cancer. The patient's father due to emphysema and heart disease. The patient has three children who are healthy. REVIEW OF SYSTEMS: GENERAL: Patient denies fever, chills, night sweats. Patient believed that he has gained weight however he does not how many pounds. HEENT: Blurry vision since this afternoon. The patient also has a mild headache , mostly anterior of his head however he denies hearing changes. The patient has no problem with chewing food or sinusitis. NECK: The patient denies lumps, bumps or decreased range of motion of his neck. HEART: The patient denies palpitations, racing, or skipping heartbeat. However , patient has mild chest pain, 5/10, dull stationary pain which is mostly located in the mid sternum bilaterally. The patient expressed that the chest pain started after the patient had chest tube. However, the patient did not notice any new changes. ABDOMEN: The patient denies history of abdominal pain, nausea or vomiting; however, the patient had one episode of diarrhea yesterday. No constipation. No melena, hematochezia, or hemoptysis. NEUROLOGIC: The patient has been having left side of the body weakness with blurry vision and dysphasia since this afternoon. His symptoms have been decreased. The patient also had episode of confusion. PHYSICAL EXAMINATION: VITAL SIGNS: Temperature 97.5, pulse 95, respiratory rate 18, blood pressure 126/76, pulse oximetry 98% on room air. GENERAL APPEARANCE: The patient was sitting on the bed in no acute distress. The patient was awake, alert and oriented to time place and person. HEENT: Normocephalic, atraumatic. Pupils are equal and reactive to light. Oral mucosa is moist. NECK: Soft, supple. Due to distended neck, jugular venous distention (JVD) cannot be evaluated. No lymphadenopathy. HEART: Distended heart sound. Regular rate and rhythm. Normal S1, S2. LUNGS: The patient has decreased breath sounds on the right hemithorax compared to the left. The patient has scattered rales and rhonchi throughout. ABDOMEN: Soft, nontender. Positive bowel sounds in all quadrants. Obese. No hepatosplenomegaly. No tenderness to palpation. EXTREMITIES: The patient has lower extremity edema. +2 pulses in both lower extremities. The patient has normal range of motion in both upper and lower extremities; however, the strength of the left lower and left upper extremity has decreased (4/5). NEUROLOGIC: Cranial nerves II-XII was intact. The patient has mild sensory deficiency on his toes bilaterally. LABORATORY DATA: White blood cells 10.2, red blood cells 4.24, hemoglobin 13.9, hematocrit 41.4, MCV 97.7, MCH 32.7, MCHC 33.5, RDW 14.1, platelet count 166. Neutrophil percentage 74.7, lymphocyte percentage 14.5, monocyte percentage 6,2, eosinophil percentage 2.5, basophil percentage 0.3, leukocyte percentage 1.7. PT 13.5, INR 1.05, PTT 32. Sodium 135, potassium 3.8, chloride 101, carbon dioxide 26, anion gap 8, BUN 27, creatinine 1.39, glomerular filtration rate 54.9, fasting glucose 128, calcium 8.8, total creatinine kinase 128, CK-MB 3.1, CK-MB relative index 2.42, troponin I less than 0.02. Blood cultures pending. IMAGING: Head CT was negative. Chest x-ray shows right lower lobe infiltration. ASSESSMENT AND PLAN: 1. Possible CVA. CT was negative; however, we have ordered MRI and MRA and result is pending at this time. Also we have ordered carotid ultrasound as well as echocardiogram and the result is pending. The patient received one dose of aspirin 325 mg in the ER. We will continue with aspirin 81 mg. The patient is also on pravastatin 20 mg, however, I have increased the dosage to 80 mg. We admitted the patient to the progressive care unit (PCU) and we will do neuro checks every 4 hours. Patient is a stable at this time. Also I have ordered fall percussion. 2. Health care acquired pneumonia. The patient was in the hospital setting less than 90 days ago. The patient's previous sputum culture which was done in April was positive for methicillin-resistant Staphylococcus aureus (MRSA). At this point, we have started the patient on Zosyn, vancomycin and Levaquin. Also, we have ordered sputum culture as well as influenza A and B and blood culture. Also, I have ordered urine Strep pneumoniae and Legionella antigen of urine and results are pending at this time. We will continue to monitor the patient for any abnormal symptoms. 3. Chronic obstructive pulmonary disease (COPD). At home, the patient is on 2 liters at night. However, we started the patient on oxygen for the goal saturation of 88-92%. Also, we will continue the patient on breathing treatments. The patient does not require steroids at this time since the patient at this time is not in respiratory distress. 4. Acute on chronic disease Stage III. The patient's creatinine today has increased compared to his baseline. The patient has drank about 11 liters of fluid. At this time, no IV fluid is required. We will monitor the patient's bladder and will monitor patient's input and output as well as renal function. 5. Diastolic congestive heart failure. The patient's last echo was done by Dr. Nobles which was done on 04/28/2016 which shows grade 1 diastolic congestive heart failure with ejection fraction of 70-75%. At this time, we will monitor the patient's input and output to prevent hypervolemia. We will continue patient on carvedilol 6.25 mg by mouth twice a day. 6. Chest pain. This could be secondary to the nerve damage secondary to surgical procedure (chest tube). EKG was negative for any pathology. Also, first set of cardiac markers were negative. We will repeat the cardiac markers every 6 hours for two more. Also, the patient has received one dose of aspirin 325 mg. We will continue patient on aspirin 81 mg. 7. Obstructive sleep apnea. The patient is on CPAP with 3 liters of oxygen. I asked the patient's daughter to bring the patient's CPAP to the hospital. 8. Deep vein thrombosis prophylaxis. The patient is on heparin 5000 units every 8 hours. 9. History of gout. We will continue patient on allopurinol 300 mg by mouth daily. 10. History of anemia. This is possibly secondary to iron deficiency. At this time, the patient is on ferrous sulfate 325 mg by mouth daily. Due to possibility of GI bleeding, we will check the occult blood test; however, the result is pending at this time. 11. Restless leg syndrome. The patient is on ropinirole 2 mg by mouth at bedtime and 1 mg by mouth daily. 12. Gastroesophageal reflux disease. The patient is on Prilosec 20 mg by mouth daily. My preceptor for this patient encounter was Dr. Julia Corral. The preceptor was physically present in the building during the encounter and was fully available. As needed, all aspects of the patient interview, examination, medical decision making process, and medical care plan development were reviewed and approved by the preceptor. The preceptor is aware and concurs with the plan as stated in the body of this note and will attest to such by his/her cosignature. ZULLY
[2016-06-19] MEDS ORDERED: MAG SULF 1GM/100ML (MAG RUN) 1 GM in APPROPRIATE DILUENT 1 EA IV ONE (08:00)
[2016-06-19] MEDS: rOPINIRole 1MG TAB PO SCH ×2 (08:53→20:58)
[2016-06-19] MEDS: ALLOPURINOL 300 MG TAB PO SCH (08:53)
[2016-06-19] MEDS: MAGNESIUM OXIDE 400 MG TAB (MAG-OX) PO SCH (08:53)
[2016-06-19] MEDS: VANCOMYCIN HCL 1,000 MG, VIAL MATE ADAPTER 1 EACH in D5W 250 ML IV SCH ×2 (08:53→17:45)
[2016-06-19] MEDS: OMEPRAZOLE 20 MG CAP PO SCH (08:53)
[2016-06-19] MEDS: MULTIVITAMINS/MINERALS THERAP 1 TAB PO SCH (08:53)
[2016-06-19] MEDS: PRAVASTATIN 20 MG TAB PO SCH (08:54)
[2016-06-19] MEDS: ASPIRIN 81 MG ENTERIC TAB PO SCH (08:54)
[2016-06-19] MEDS: FERROUS SULFATE 325MG TAB PO SCH (08:54)
--- NOTE | 2016-06-19 10:12 | REP ---
CAROTID ULTRASOUND: Real-time ultrasound evaluation and duplex Doppler interrogation of the extracranial carotid vasculature is performed. There is mild plaquing and narrowing in both carotid bulbs extending into the internal and external carotid arteries. Luminal narrowing is less than 50%. There is no evidence of hemodynamically significant stenosis of either internal carotid artery. Normal flow velocities are seen. The vertebral arteries could not be visualized. The left external carotid artery could not be evaluated. RIGHT LEFT Peak systolic velocity ICA 62.7 cm/s 97.7 cm/s End diastolic velocity ICA 29.2 cm/s 31.9 cm/s Peak systolic velocity CCA 109.3 cm/s 169.1 cm/s Peak systolic velocity ECA 92.3 cm/s ICA/CCA ratio 0.57 0.58 IMPRESSION: Bilateral luminal narrowing of the internal carotid arteries less than 50%. No evidence of hemodynamically significant stenosis. Signed by Jorden Weinstein MD 06/19/2016 10:03 A
--- NOTE | 2016-06-19 10:39 | PHACANCOPD ---
PHARMACY VANCOMYCIN DOSING Pt Demographics Demographics Patient Age:65 , Weight:148.770 , Gender: male Adjusted Body Weight Date: 06/19/16, Adjusted Body Weight: [110] Kg Vancomycin Vancomycin Target Ranges: 15-20 mcg/ml Vancomycin Load Y/N: Yes Load Dose Date Time Vancomycin Load Dose: 2000MG Date: 06-19 Time: 0400 Vancomycin Dose Date: 06/19/16. Current Vancomycin Dose: [1G Q8H] Intermittent Dosing?: No Labs Micro Microbiology 06/18/16 Blood Culture, Received Pending 06/18/16 Blood Culture, Received Pending 06/19/16 Influenza Virus Type A Antigen - Final, Complete 06/19/16 Influenza Virus Type B Antigen - Final, Complete Creatinine Clearance Date:06/19/16. Creatinine Clearance: [66]. Pending Labs Trough ordered for 05 @1900 Assessment and Plan Maintaining Current Dose?: Yes Reason for dose change: No Dose Change Pharmacist Note Pharmacist Note 06/19/16: Regimen and trough have been rescheduled. Trough is now scheduled for @0800 prior to the 5th dose. Date: 06/19/16. Pharmacist note:dosed at 1000mg q8h with a trough ordered for 05- 11 @1900. Will continue to monitor and make adjustments as needed. EVARISTO JOHN PHARMACY June 19, 2016 10:39
[2016-06-19 11:29] LABS: CHOLESTEROL LEVEL 115 MG/DL (<200); TRIGLYCERIDES LEVEL 256 MG/DL (<150)
--- NOTE | 2016-06-19 19:48 | ECHO ---
DATE OF PROCEDURE:06/19/2016 REFERRING PHYSICIAN: Dr. Castillo Montez INDICATION: Transient ischemic attack (TIA). HEIGHT: 193 cm WEIGHT: 149 kg DIMENSIONS: IVS: 1.1 LV: 4.4 LVPW: 1.1 LA: 4.1 Aorta: 3.5 FINDINGS: Study is of rather limited technical quality corresponding to patient's body habitus. Left ventricle is of normal size and grossly preserved left ventricle (LV) systolic function. I certainly cannot rule out subtle wall motion abnormality with any degree of reliability. Right ventricle does not appear. Both atria are at least mildly enlarged. Aortic, mitral and tricuspid valves appear grossly normal. Pulmonic valve was poorly visualized but also appears grossly normal. No pericardial effusion is noted. Inferior vena cava was not seen. Aortic root is normal. Aortic arch and abdominal aorta were not visualized. Doppler interrogation reveals no aortic stenosis or insufficiency. There is mild mitral and mild tricuspid insufficiency. Calculated pulmonary artery pressure is in 30s corresponding to mild pulmonary hypertension. Mitral inflow pattern and tissue Doppler imaging of mitral annulus reveal grade 1 diastolic dysfunction. CONCLUSIONS: 1. Study is of limited technical quality. 2. Normal LV size with grossly preserved LV systolic function and grade 1 diastolic dysfunction. 3. No significant valvular disease. 4. Unable to estimate central venous pressure. 5. At least mild pulmonary hypertension. COMMENT: Subacute bacterial endocarditis (SBE) prophylaxis is not recommended.
[2016-06-20] MEDS: VANCOMYCIN HCL 1,000 MG, VIAL MATE ADAPTER 1 EACH in D5W 250 ML IV SCH ×3 (01:07→18:24)
[2016-06-20] MEDS: IPRATROPIUM 0.5MG/ALBUTEROL 2.5MG INH SOL UD 3ML (DUONEB)(J7620) NEB SCH ×4 (02:10→20:56)
[2016-06-20 04:00] VITALS: BP 159/80
[2016-06-20] MEDS: HEPARIN SOD (PORCINE) 5000 UNITS/ML VIAL SC SCH ×3 (05:54→20:51)
[2016-06-20 06:03] LABS: ALBUMIN 3.1 GM/DL (3.2-5.2); ALBUMIN/GLOBULIN RATIO 0.78 (1.00-1.93); BASO % 0.7 % (0.0-1.0); BILIRUBIN,TOTAL 0.4 MG/DL (0.2-1.0); CALCIUM LEVEL 8.7 MG/DL (8.8-10.2); CREATININE FOR GFR 1.41 MG/DL (0.70-1.30); EOS # 0.1 K/mm3 (0.0-0.50); EOS % 2.2 % (0.0-3.0); LARGE UNSTAINED CELL # 0.2 K/mm3 (0.0-0.4); LARGE UNSTAINED CELL % 2.3 % (0.0-4.0); LYMPH # 1.2 K/mm3 (1.5-4.5); LYMPH % 16.3 % (24.0-44.0); MAGNESIUM LEVEL 1.9 MG/DL (1.8-2.4); MEAN CORPUSCULAR HEMOGLOBIN 32.5 pg (27.0-33.0); MEAN CORPUSCULAR HGB CONC 33.2 g/dl (32.0-36.5); MEAN CORPUSCULAR VOLUME 97.7 fl (80.0-96.0); MONO # 0.4 K/mm3 (0.0-0.8); MONO % 6.6 % (0.0-5.0); NEUTROPHILS # 4.7 K/mm3 (1.8-7.7); PLATELET COUNT, AUTOMATED 160 k/mm3 (150-450); POTASSIUM SERUM 3.9 MEQ/L (3.5-5.1); TOTAL PROTEIN 7.1 GM/DL (6.4-8.2); WHITE BLOOD COUNT 6.5 K/mm3 (4.0-10.0)
[2016-06-20 08:00] VITALS: BP 129/77
[2016-06-20] MEDS: FERROUS SULFATE 325MG TAB PO SCH (08:21)
[2016-06-20] MEDS: PRAVASTATIN 20 MG TAB PO SCH (08:21)
[2016-06-20] MEDS: rOPINIRole 1MG TAB PO SCH ×2 (08:21→20:50)
[2016-06-20] MEDS: PIPERACILLIN/TAZOBACTAM SOD 3.375 GM in D5W MINI-BAG PLUS 50 ML IV SCH ×3 (08:21→23:58)
[2016-06-20] MEDS: CARVedilol 6.25 MG TAB PO SCH ×2 (08:22→20:50)
[2016-06-20] MEDS: MAGNESIUM OXIDE 400 MG TAB (MAG-OX) PO SCH (08:22)
[2016-06-20] MEDS: ASPIRIN 81 MG ENTERIC TAB PO SCH (08:23)
[2016-06-20] MEDS: ALLOPURINOL 300 MG TAB PO SCH (08:23)
[2016-06-20] MEDS: OMEPRAZOLE 20 MG CAP PO SCH (08:23)
[2016-06-20] MEDS: MULTIVITAMINS/MINERALS THERAP 1 TAB PO SCH (08:23)
--- NOTE | 2016-06-20 08:30 | ECGEPIP ---
Stationary ECG Study [facility] - ED Test Date: 2016-06-18 Pat Name: ARIN GUADARRAMA Department: Room: [place] [address] Gender: M Resume Specialist: clint : 1950 Requested By: IESHA Mari Order Number: [id number] Reading MD: Meme Bradley Measurements Intervals [place] Rate: 93 P: 58 MT: 164 QRS: -17 QRSD: 97 T: 14 QT: 350 QTc: 436 Interpretive Statements SINUS RHYTHM NSTTW ABNORMALITY INCREASED RATE 05/07/16 Electronically Signed On 06-20-2016 8:30:01 EDT by Meme Bradley
[2016-06-20 12:00] VITALS: BP 126/79
--- NOTE | 2016-06-20 13:27 | PHACANCOPD ---
PHARMACY VANCOMYCIN DOSING Pt Demographics Demographics Patient Age:65 , Weight:149.900 , Gender: male Adjusted Body Weight Date: 06/19/16, Adjusted Body Weight: [110] Kg Events Past 24 Hours Events Past 24 Hours: YES: Change in CrCl Vancomycin Vancomycin Target Ranges: 15-20 mcg/ml Vancomycin Load Y/N: Yes Load Dose Date Time Vancomycin Load Dose: 2000MG Date: 06-19 Time: 0400 Vancomycin Dose Date: 06/20/16. Current Vancomycin Dose: [1g IV q8h @09] Date: 06/19/16. Current Vancomycin Dose: [1G Q8H] Intermittent Dosing?: No Labs Labs Item Value Date Time Vancomycin Level Trough 14.4 UG/ML 06/20/16 0825 White Blood Count 10.2 K/mm3 H 06/18/16 2228 White Blood Count 8.3 K/mm3 06/19/16 0518 White Blood Count 6.5 K/mm3 06/20/16 0527 Creatinine 1.39 MG/DL H 06/18/162227 Creatinine 1.40 MG/DL H 06/19/1618 Creatinine 1.41 MG/DL H 06/20/16 0527 Micro Microbiology 06/18/16 Blood Culture - Preliminary, Resulted No growth after 24 hours . All specim... 06/18/16 Blood Culture - Preliminary, Resulted No growth after 24 hours . All specim... 06/20/16 Gram Stain, Received Pending 06/20/16 Sputum Culture, Received Pending 06/19/16 Influenza Virus Type A Antigen - Final, Complete 06/19/16 Influenza Virus Type B Antigen - Final, Complete Creatinine Clearance Date:06/20/16. Creatinine Clearance: [83 ml/min using adjusted BW]. Date:06/19/16. Creatinine Clearance: [66]. Pending Labs Trough ordered for 06-19 @1900 Assessment and Plan Maintaining Current Dose?: Yes Reason for dose change: No Dose Change Pharmacist Note Pharmacist Note Date: 06/20/16. Pharmacist note: Vanco trough drawn ~30 min before the 5th dose came back at 14.4. I will continue his current dosing. SCr remains elevated ( baseline ~1.2 mg/dl), WBCs have improved. Pt has a PMHx significant for kidney resection and lung cancer s/p radiation/resection. He had a sputum culture during his admission in April 2016 which grew MRSA (few, NATTY = 0.5). Pt continues on Vanco, Levaquin and Zosyn. We will continue to monitor renal function and repeat trough as necessary. 06/19/16: Regimen and trough have been rescheduled. Trough is now scheduled for @0800 prior to the 5th dose. Date: 06/19/16. Pharmacist note:dosed at 1000mg q8h with a trough ordered for @1900. Will continue to monitor and make adjustments as needed. Joey Morrison Pharm.D. June 20, 2016 13:27
[2016-06-20 16:00] VITALS: BP 127/79
--- NOTE | 2016-06-20 16:45 | REP ---
MR angiography the brain without contrast: History: CVA. Technique: 3-D [id number] MR angiography of the brain is acquired in the usual fashion and maximal intensity projection images are generated reviewed rotationally. Source axial images are generated. MR angiographic findings: The distal vertebral arteries are tortuous but patent, left is dominant in size over right. The distal internal carotid arteries are unremarkable. Anterior and middle cerebral arteries are intact. There is no evidence of palma aneurysm or arteriovenous malformation. No vessel cutoff is seen. Impression: Tortuous vertebral basilar system. Otherwise unremarkable MR angiography of the brain. Signed by Irving Gillette MD 06/20/2016 06:09 P
--- NOTE | 2016-06-20 16:56 | REP ---
Brain MRI study without contrast: History: CVA. Technique: Axial and sagittal imaging planes are utilized for T1 and T2-weighted scans. Sequences include spin-echo, fast spin echo, FLAIR, and diffusion weighted sequences. MRI findings: The somewhat ectatic left vertebral artery shows significant tortuosity and produces rather traumatic mass effect on the pontomedullary junction. There is indentation of the pontomedullary junction by the tortuous artery of approximately 12 mm. The fourth ventricle and aqueduct appear to be unaffected. There is some upward traction effect on the medulla. Cerebellar hemispheres are intact. There is minimal diffuse atrophy. Diffusion weighted scans show no evidence to suggest acute ischemia. There is no evidence of intracranial hemorrhage. No mass, infarction, or extra-axial fluid collection is seen. Impression: Fairly dramatic mass effect on the inferior hanny and superior medulla from a tortuous and ectatic left distal vertebral artery. No infarct or other acute intracranial abnormality. Signed by Irving Gillette MD 06/20/2016 06:09 P
--- NOTE | 2016-06-20 16:58 | IPNPDOC ---
Text Note Date of Service The patient was seen on 06/20/16. NOTE Subjective: Patient is a 65 year old male with a PMHx of COPD on 2L O2, LUCA on CPAP, HTN, CKD, Gout, Hx of Liposarcoma (s/p partial colon, R kidney and adrenal gland resection), Squamous Lung Ca (Stage 1A, s/p Stereotactic body radiation therapy), Hx of Torsades who presented to the ER with left sided weakness and numbness and tingling. Patient had a recent admission in 04/2016 for pneumonia requiring a chest tube. He also noted some SOB and productive cough. He receiving imaging in the ER which was consistent with a pneumonia. He was admitted to telemetry for possible TIA / CVA. Patient was seen and examined at the bedside. He does not have any complaints today. He notes improvement in her lower extremity weakness. Objective: Vitals (See below) General: Lying in bed, no acute distress, comfortable, AAOx3 HEENT: NC, AT CVS: RRR, +S1S2 Lungs: Fair air entry b/l, -w/r/r Abdomen: Soft, ND, NT, +BSx4 Extremities: +PPx4, - Edema, - Calf tenderness Neuro: 4/5 strength at LLE and 5/5 all other extremities Assessment and plan: 1. Weakness of left lower extremity - likely 2/2 CVA - Presented with left sided weakness of upper and lower extremity, improved over time - Physical reveals focal weakness - Lipid panel reveals elevation in triglycerides - CT head 06/18: Negative for change - ECHO: Preserved EF, Stage 1 DD; Carotid US: no significant stenosis - Will get MRI today (open MRI given body habitus) - c/w Telemetry monitoring and neurological checks - c/w ASA 81 and Pravastatin - Neurology has been following - appreciate their input 2. SOB / Cough - likely 2/2 HCAP - Presented with cough and shortness of breath - Physical did not reveal any significant rhonchi - Labs revealed leukocytosis - shows signs of improvement - CXR: RLL infiltrate - Blood cultures negative; Sputum cultures pending - Influenza negative - c/w Zosyn, Levaquin and Vancomycin (Day #2) 3. CKD 3 - Mild elevation in creatinine from baseline - Baseline of 1.2-1.3; currently presented with 1.3-1.4 - will monitor for now 4. COPD with chronic hypoxic respiratory failure, home oxygen at 2L - c/w inhaled therapy from home 5. Diastolic CHF - Follows with Dr. Nobles - c/w Carvedilol with holding parameters 6. LUCA c/w CPAP - c/w home CPAP 7. Gout - c/w allopurinol 8. Anemia - Hg baseline of 12 - Presented with 13 - Will monitor for now 9. Restless leg syndrome - c/w Ropinirole 10. GERD - c/w Prilosec 11. DVT prophylaxis - c/w Heparin SQ VS,Fishbone, I+O VS, Fishbone, I+O Laboratory Tests 06/20/16 05:27 Red Blood Count 4.04 L, Mean Corpuscular Volume 97.7 H, Mean Corpuscular Hemoglobin 32.5, Mean Corpuscular Hemoglobin Concent 33.2, Red Cell Distribution Width 14.0, Neutrophils (%) (Auto) 72.0 H, Lymphocytes (%) (Auto) 16.3 L, Monocytes (%) (Auto) 6.6 H, Eosinophils (%) (Auto) 2.2, Basophils (%) ( Auto) 0.7, Neutrophils # (Auto) 4.7, Lymphocytes # (Auto) 1.2 L, Monocytes # ( Auto) 0.4, Eosinophils # (Auto) 0.1, Basophils # (Auto) 0.0, Calcium Level 8.7 L , Aspartate Amino Transf (AST/SGOT) 22, Alanine Aminotransferase (ALT/SGPT) 36, Alkaline Phosphatase 67, Total Bilirubin 0.4, Total Protein 7.1, Albumin 3.1 L Vital Signs Date Time Temp Pulse Resp B/P (MAP) Pulse Ox O2 Delivery O2 Flow Rate FiO2 06/20/16 12:00 Room Air 06/20/16 12:00 97.8 80 18 126/79 (95) 98 06/20/16 04:00 3.0 I&O- Last 24 Hours up to 6 AM 06/20/16 06:00 Intake Total 3076 ml Output Total 3525 ml Balance -449 ml ADALID RAMIREZ MD June 20, 2016 16:58
[2016-06-20 20:48] VITALS: BP 125/71
[2016-06-20 23:28] VITALS: BP 130/84
[2016-06-21] MEDS: VANCOMYCIN HCL 1,000 MG, VIAL MATE ADAPTER 1 EACH in D5W 250 ML IV SCH ×3 (01:59→16:52)
[2016-06-21] MEDS: IPRATROPIUM 0.5MG/ALBUTEROL 2.5MG INH SOL UD 3ML (DUONEB)(J7620) NEB SCH ×4 (02:00→20:17)
[2016-06-21 03:45] VITALS: BP 129/75
[2016-06-21] MEDS ORDERED: SLF 3 ML SYR IV PRN (03:45)
[2016-06-21 05:13] LABS: ALBUMIN 3.1 GM/DL (3.2-5.2); ALBUMIN/GLOBULIN RATIO 0.91 (1.00-1.93); BILIRUBIN,TOTAL 0.3 MG/DL (0.2-1.0); CALCIUM LEVEL 8.6 MG/DL (8.8-10.2); CREATININE FOR GFR 1.39 MG/DL (0.70-1.30); GLOMERULAR FILTRATION RATE 54.9 (>49); MAGNESIUM LEVEL 1.7 MG/DL (1.8-2.4); POTASSIUM SERUM 4.1 MEQ/L (3.5-5.1); TOTAL PROTEIN 6.5 GM/DL (6.4-8.2)
[2016-06-21 05:21] LABS: BASO % 0.6 % (0.0-1.0); EOS # 0.2 K/mm3 (0.0-0.50); EOS % 2.5 % (0.0-3.0); LARGE UNSTAINED CELL # 0.1 K/mm3 (0.0-0.4); LARGE UNSTAINED CELL % 1.3 % (0.0-4.0); LYMPH # 1.1 K/mm3 (1.5-4.5); LYMPH % 15.5 % (24.0-44.0); MEAN CORPUSCULAR HGB CONC 32.3 g/dl (32.0-36.5); MEAN CORPUSCULAR VOLUME 98.9 fl (80.0-96.0); MONO # 0.4 K/mm3 (0.0-0.8); MONO % 5.8 % (0.0-5.0); NEUTROPHILS # 5.1 K/mm3 (1.8-7.7); NEUTROPHILS % 74.3 % (36.0-66.0); PLATELET COUNT, AUTOMATED 168 k/mm3 (150-450); RED CELL DISTRIBUTION WIDTH 13.8 % (11.5-14.5); WHITE BLOOD COUNT 6.9 K/mm3 (4.0-10.0)
[2016-06-21] MEDS: LevoFLOXacin IV 750 MG in APPROPRIATE DILUENT 1 EA IV SCH (05:37)
[2016-06-21] MEDS: SLF 3 ML SYR IV SCH ×3 (05:37→21:08)
[2016-06-21] MEDS: HEPARIN SOD (PORCINE) 5000 UNITS/ML VIAL SC SCH ×3 (05:38→20:59)
[2016-06-21] MEDS ORDERED: MAG SULF 1GM/100ML (MAG RUN) 1 GM in APPROPRIATE DILUENT 1 EA IV ONE (07:45)
[2016-06-21 08:00] VITALS: BP 121/73
[2016-06-21] MEDS: PRAVASTATIN 20 MG TAB PO SCH (08:11)
[2016-06-21] MEDS: MULTIVITAMINS/MINERALS THERAP 1 TAB PO SCH (08:11)
[2016-06-21] MEDS: ALLOPURINOL 300 MG TAB PO SCH (08:11)
[2016-06-21] MEDS: rOPINIRole 1MG TAB PO SCH ×2 (08:11→20:59)
[2016-06-21] MEDS: ASPIRIN 81 MG ENTERIC TAB PO SCH (08:11)
[2016-06-21] MEDS: FERROUS SULFATE 325MG TAB PO SCH (08:11)
[2016-06-21] MEDS: MAGNESIUM OXIDE 400 MG TAB (MAG-OX) PO SCH (08:12)
[2016-06-21] MEDS: OMEPRAZOLE 20 MG CAP PO SCH (08:12)
[2016-06-21] MEDS: PIPERACILLIN/TAZOBACTAM SOD 3.375 GM in D5W MINI-BAG PLUS 50 ML IV SCH ×2 (09:22→15:11)
[2016-06-21] MEDS: CARVedilol 6.25 MG TAB PO SCH ×2 (09:23→21:00)
--- NOTE | 2016-06-21 10:12 | REP ---
PORTABLE CHEST: Single portable view of the chest is performed. Chronic streaky bibasilar interstitial opacities are stable as is blunting of the left costophrenic angle. Cardiomediastinal silhouette is unchanged. IMPRESSION: Stable chronic bibasilar opacities with no new infiltrate. Signed by Jorden Weinstein MD 06/21/2016 07:45 P
[2016-06-21 12:00] VITALS: BP 126/71
--- NOTE | 2016-06-21 13:07 | IPNPDOC ---
Text Note Date of Service The patient was seen on 06/21/16. NOTE Subjective: Patient is a 65 year old male with a PMHx of COPD on 2L O2, LUCA on CPAP, HTN, CKD, Gout, Hx of Liposarcoma (s/p partial colon, R kidney and adrenal gland resection), Squamous Lung Ca (Stage 1A, s/p Stereotactic body radiation therapy), Hx of Torsades who presented to the ER with left sided weakness and numbness and tingling. Patient had a recent admission in 04/2016 for pneumonia requiring a chest tube. He also noted some SOB and productive cough. He receiving imaging in the ER which was consistent with a pneumonia. He was admitted to telemetry for possible TIA / CVA. Patient was seen and examined at the bedside. Again patient is doing well, he denies any new problems. Notes that his leg weakness is improving. Objective: Vitals (See below) General: Lying in bed, no acute distress, comfortable, AAOx3 HEENT: NC, AT CVS: RRR, +S1S2 Lungs: Fair air entry b/l, -w/r/r Abdomen: Soft, ND, NT, +BSx4 Extremities: +PPx4, - Edema, - Calf tenderness Neuro: 4/5 strength at LLE and 5/5 all other extremities Assessment and plan: 1. Weakness of left lower extremity - less likely 2/2 CVA, possibly 2/2 syringobulbia and corticospinal tract atrophy - Presented with left sided weakness of upper and lower extremity, improved over time - Physical reveals focal weakness - Lipid panel reveals elevation in triglycerides - CT head 06/18: Negative for change - ECHO: Preserved EF, Stage 1 DD; Carotid US: no significant stenosis - MRI 06/20: Shows dramatic mass effect on the inferior hanny / superior medulla from tortuous / ectatic left distal vertebral artery, no infarct - c/w Telemetry monitoring and neurological checks - c/w ASA 81 and Pravastatin - Neurology has been following and case has been discussed; will order additional imaging (MRI with contrast) to evaluate findings - Will coordinate with transport for open MRI 2. SOB / Cough - likely 2/2 HCAP - Presented with cough and shortness of breath - Physical did not reveal any significant rhonchi - s/p Leukocytosis - CXR: RLL infiltrate - Blood cultures negative; Sputum cultures pending - Influenza negative - c/w Zosyn, Levaquin and Vancomycin (Day #3) 3. CKD 3 - Mild elevation in creatinine from baseline - Baseline of 1.2-1.3; currently presented with 1.3-1.4 - will monitor for now 4. COPD with chronic hypoxic respiratory failure, home oxygen at 2L - c/w inhaled therapy from home 5. Diastolic CHF - Follows with Dr. Nobles - c/w Carvedilol with holding parameters 6. LUCA c/w CPAP - c/w home CPAP 7. Gout - c/w allopurinol 8. Anemia - Hg baseline of 12 - Presented with 13 - Will monitor for now 9. Restless leg syndrome - c/w Ropinirole 10. GERD - c/w Prilosec 11. DVT prophylaxis - c/w Heparin SQ VS,Fishbone, I+O VS, Fishbone, I+O Laboratory Tests 06/21/16 04:31 Red Blood Count 4.08 L, Mean Corpuscular Volume 98.9 H, Mean Corpuscular Hemoglobin 32.0, Mean Corpuscular Hemoglobin Concent 32.3, Red Cell Distribution Width 13.8, Neutrophils (%) (Auto) 74.3 H, Lymphocytes (%) (Auto) 15.5 L, Monocytes (%) (Auto) 5.8 H, Eosinophils (%) (Auto) 2.5, Basophils (%) ( Auto) 0.6, Neutrophils # (Auto) 5.1, Lymphocytes # (Auto) 1.1 L, Monocytes # ( Auto) 0.4, Eosinophils # (Auto) 0.2, Basophils # (Auto) 0.0, Calcium Level 8.6 L , Aspartate Amino Transf (AST/SGOT) 27, Alanine Aminotransferase (ALT/SGPT) 39, Alkaline Phosphatase 75, Total Bilirubin 0.3, Total Protein 6.5, Albumin 3.1 L Vital Signs Date Time Temp Pulse Resp B/P (MAP) Pulse Ox O2 Delivery O2 Flow Rate FiO2 06/21/16 12:00 97.6 84 18 126/71 (89) 92 Room Air 06/20/16 04:00 3.0 I&O- Last 24 Hours up to 6 AM 06/21/16 06:00 Intake Total 3190 ml Output Total 5090 ml Balance -1900 ml ADALID RAMIREZ MD June 21, 2016 13:07
[2016-06-21 16:00] VITALS: BP 124/63
--- NOTE | 2016-06-21 17:23 | ECGEPIP ---
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 Electronically Signed On 06-21-2016 17:23:16 EDT by Hayder Francis
[2016-06-21 20:47] VITALS: BP 139/76
[2016-06-21] MEDS: ACETAMINOPHEN 500 MG TAB PO PRN (22:48)
[2016-06-22] VITALS (7 sets, daily range): BP systolic 106–145; BP diastolic 70–79
[2016-06-22 00:06] LABS: ORGANISM ID Not indicated. (.); SPECIMEN SOURCE Urine (.)
[2016-06-22] MEDS: PIPERACILLIN/TAZOBACTAM SOD 3.375 GM in D5W MINI-BAG PLUS 50 ML IV SCH ×2 (00:14→08:29)
[2016-06-22] MEDS: IPRATROPIUM 0.5MG/ALBUTEROL 2.5MG INH SOL UD 3ML (DUONEB)(J7620) NEB SCH ×4 (01:30→20:18)
[2016-06-22] MEDS: VANCOMYCIN HCL 1,000 MG, VIAL MATE ADAPTER 1 EACH in D5W 250 ML IV SCH (01:50)
[2016-06-22 05:26] LABS: BASO % 0.6 % (0.0-1.0); EOS # 0.2 K/mm3 (0.0-0.50); EOS % 2.8 % (0.0-3.0); LARGE UNSTAINED CELL # 0.1 K/mm3 (0.0-0.4); LARGE UNSTAINED CELL % 2.2 % (0.0-4.0); LYMPH # 1.1 K/mm3 (1.5-4.5); LYMPH % 16.7 % (24.0-44.0); MEAN CORPUSCULAR HEMOGLOBIN 32.2 pg (27.0-33.0); MEAN CORPUSCULAR HGB CONC 33.2 g/dl (32.0-36.5); MEAN CORPUSCULAR VOLUME 96.9 fl (80.0-96.0); MONO # 0.5 K/mm3 (0.0-0.8); MONO % 7.5 % (0.0-5.0); NEUTROPHILS # 4.2 K/mm3 (1.8-7.7); NEUTROPHILS % 70.2 % (36.0-66.0); PLATELET COUNT, AUTOMATED 171 k/mm3 (150-450)
[2016-06-22 05:44] LABS: ALBUMIN 3.1 GM/DL (3.2-5.2); ALBUMIN/GLOBULIN RATIO 0.82 (1.00-1.93); BILIRUBIN,TOTAL 0.3 MG/DL (0.2-1.0); CALCIUM LEVEL 8.8 MG/DL (8.8-10.2); CREATININE FOR GFR 1.51 MG/DL (0.70-1.30); GLOMERULAR FILTRATION RATE 49.9 (>49); MAGNESIUM LEVEL 1.8 MG/DL (1.8-2.4); POTASSIUM SERUM 3.6 MEQ/L (3.5-5.1); TOTAL PROTEIN 6.9 GM/DL (6.4-8.2)
[2016-06-22] MEDS: HEPARIN SOD (PORCINE) 5000 UNITS/ML VIAL SC SCH ×3 (06:00→21:12)
[2016-06-22] MEDS: SLF 3 ML SYR IV SCH ×3 (06:02→21:12)
[2016-06-22] MEDS ORDERED: NS 1,000 ML IV SCH (07:30)
[2016-06-22] MEDS: rOPINIRole 1MG TAB PO SCH ×2 (08:29→21:11)
[2016-06-22] MEDS: ALLOPURINOL 300 MG TAB PO SCH (08:29)
[2016-06-22] MEDS: MULTIVITAMINS/MINERALS THERAP 1 TAB PO SCH (08:29)
[2016-06-22] MEDS: PRAVASTATIN 20 MG TAB PO SCH (08:29)
[2016-06-22] MEDS: ASPIRIN 81 MG ENTERIC TAB PO SCH (08:29)
[2016-06-22] MEDS: OMEPRAZOLE 20 MG CAP PO SCH (08:30)
[2016-06-22] MEDS: CARVedilol 6.25 MG TAB PO SCH ×2 (08:30→21:12)
[2016-06-22] MEDS: FERROUS SULFATE 325MG TAB PO SCH (08:30)
[2016-06-22] MEDS: MAGNESIUM OXIDE 400 MG TAB (MAG-OX) PO SCH (08:30)
--- NOTE | 2016-06-22 09:48 | IPNPDOC ---
Text Note Date of Service The patient was seen on 06/22/16. NOTE Subjective: Patient is a 65 year old male with a PMHx of COPD on 2L O2, LUCA on CPAP, HTN, CKD, Gout, Hx of Liposarcoma (s/p partial colon, R kidney and adrenal gland resection), Squamous Lung Ca (Stage 1A, s/p Stereotactic body radiation therapy), Hx of Torsades who presented to the ER with left sided weakness and numbness and tingling. Patient had a recent admission in 04/2016 for pneumonia requiring a chest tube. He also noted some SOB and productive cough. He receiving imaging in the ER which was consistent with a pneumonia. He was admitted to telemetry for possible TIA / CVA. Patient was seen and examined at the bedside. He notes some mild left leg weakness again, but has no other complaints. Advised that he will likely go for another MRI tomorrow. Objective: Vitals (See below) General: Lying in bed, no acute distress, comfortable, AAOx3 HEENT: NC, AT CVS: RRR, +S1S2 Lungs: Fair air entry b/l, -w/r/r Abdomen: Soft, ND, NT, +BSx4 Extremities: +PPx4, - Edema, - Calf tenderness Neuro: 4/5 strength at LLE and 5/5 all other extremities Assessment and plan: 1. Weakness of left lower extremity - less likely 2/2 CVA, possibly 2/2 syringobulbia and corticospinal tract atrophy - Presented with left sided weakness of upper and lower extremity, improved over time - Physical reveals focal weakness - Lipid panel reveals elevation in triglycerides - CT head 06/18: Negative for change - ECHO: Preserved EF, Stage 1 DD; Carotid US: no significant stenosis - MRI 06/20: Shows dramatic mass effect on the inferior hanny / superior medulla from tortuous / ectatic left distal vertebral artery, no infarct - c/w Telemetry monitoring and neurological checks - c/w ASA 81 and Pravastatin - Neurology has been following and case has been discussed; will order additional imaging (MRI with contrast) to evaluate findings - Plan for MRI tomorrow 2. SOB / Cough - likely 2/2 HCAP - Presented with cough and shortness of breath - Physical did not reveal any significant rhonchi - s/p Leukocytosis - CXR: RLL infiltrate - Blood cultures negative; Sputum cultures pending - Influenza negative - s/p Zosyn, Vancomycin - Will continue with Levaquin alone (Antibiotic day #4) 3. CKD 3 - Mild elevation in creatinine from baseline - Baseline of 1.2-1.3; currently presented with 1.3-1.4 - Will avoid nephrotoxic medications - Will start IV fluid hydration in anticipation for MRI tomorrow - Will discuss with Nephrology 4. COPD with chronic hypoxic respiratory failure, home oxygen at 2L - c/w inhaled therapy from home 5. Diastolic CHF - Follows with Dr. Nobles - c/w Carvedilol with holding parameters 6. LUCA c/w CPAP - c/w home CPAP 7. Gout - c/w allopurinol 8. Anemia - Hg baseline of 12 - Presented with 13 - Will monitor for now 9. Restless leg syndrome - c/w Ropinirole 10. GERD - c/w Prilosec 11. DVT prophylaxis - c/w Heparin SQ VS,Fishbone, I+O VS, Fishbone, I+O Laboratory Tests 06/22/16 04:25 Red Blood Count 3.99 L, Mean Corpuscular Volume 96.9 H, Mean Corpuscular Hemoglobin 32.2, Mean Corpuscular Hemoglobin Concent 33.2, Red Cell Distribution Width 14.0, Neutrophils (%) (Auto) 70.2 H, Lymphocytes (%) (Auto) 16.7 L, Monocytes (%) (Auto) 7.5 H, Eosinophils (%) (Auto) 2.8, Basophils (%) ( Auto) 0.6, Neutrophils # (Auto) 4.2, Lymphocytes # (Auto) 1.1 L, Monocytes # ( Auto) 0.5, Eosinophils # (Auto) 0.2, Basophils # (Auto) 0.0, Calcium Level 8.8, Aspartate Amino Transf (AST/SGOT) 21, Alanine Aminotransferase (ALT/SGPT) 37, Alkaline Phosphatase 72, Total Bilirubin 0.3, Total Protein 6.9, Albumin 3.1 L Vital Signs Date Time Temp Pulse Resp B/P (MAP) Pulse Ox O2 Delivery O2 Flow Rate FiO2 06/22/16 08:30 84 114/71 06/22/16 08:00 97.7 20 92 Room Air 06/20/16 04:00 3.0 I&O- Last 24 Hours up to 6 AM 06/22/16 05:59 Intake Total 2880 ml Output Total 4925 ml Balance -2045 ml ADALID RAMIREZ MD June 22, 2016 09:48
[2016-06-22] MEDS ORDERED: VANCOMYCIN HCL 1,000 MG, VIAL MATE ADAPTER 1 EACH in D5W 250 ML IV SCH (12:00)
[2016-06-22] MEDS: ACETAMINOPHEN 500 MG TAB PO PRN (21:16)
[2016-06-23] MEDS: IPRATROPIUM 0.5MG/ALBUTEROL 2.5MG INH SOL UD 3ML (DUONEB)(J7620) NEB SCH ×4 (02:00→20:35)
[2016-06-23 04:33] VITALS: BP 133/78
[2016-06-23 05:18] LABS: BASO % 0.7 % (0.0-1.0); EOS # 0.2 K/mm3 (0.0-0.50); EOS % 2.9 % (0.0-3.0); LARGE UNSTAINED CELL # 0.1 K/mm3 (0.0-0.4); LARGE UNSTAINED CELL % 2.2 % (0.0-4.0); LYMPH # 1.2 K/mm3 (1.5-4.5); LYMPH % 16.5 % (24.0-44.0); MEAN CORPUSCULAR HEMOGLOBIN 32.5 pg (27.0-33.0); MEAN CORPUSCULAR HGB CONC 33.3 g/dl (32.0-36.5); MEAN CORPUSCULAR VOLUME 97.7 fl (80.0-96.0); MONO # 0.5 K/mm3 (0.0-0.8); MONO % 7.5 % (0.0-5.0); NEUTROPHILS # 4.5 K/mm3 (1.8-7.7); NEUTROPHILS % 70.2 % (36.0-66.0); PLATELET COUNT, AUTOMATED 164 k/mm3 (150-450); RED CELL DISTRIBUTION WIDTH 14.1 % (11.5-14.5); WHITE BLOOD COUNT 6.4 K/mm3 (4.0-10.0)
[2016-06-23 05:41] LABS: ALBUMIN/GLOBULIN RATIO 0.79 (1.00-1.93); ALKALINE PHOSPHATASE 64 U/L (45-117); ALT/SGPT 38 U/L (12-78); ANION GAP 9 MEQ/L (8-16); AST/SGOT 22 U/L (15-37); BILIRUBIN,TOTAL 0.2 MG/DL (0.2-1.0); BLOOD UREA NITROGEN 23 MG/DL (7-18); CALCIUM LEVEL 9.1 MG/DL (8.8-10.2); CARBON DIOXIDE LEVEL 26 MEQ/L (21-32); CHLORIDE LEVEL 102 MEQ/L (98-107); CREATININE FOR GFR 1.24 MG/DL (0.70-1.30); GLOMERULAR FILTRATION RATE > 60.0 (>49); GLUCOSE, FASTING 132 MG/DL (80-110); MAGNESIUM LEVEL 1.7 MG/DL (1.8-2.4); POTASSIUM SERUM 3.8 MEQ/L (3.5-5.1); SODIUM LEVEL 137 MEQ/L (136-145); TOTAL PROTEIN 6.8 GM/DL (6.4-8.2)
[2016-06-23] MEDS: HEPARIN SOD (PORCINE) 5000 UNITS/ML VIAL SC SCH ×3 (05:43→21:34)
[2016-06-23] MEDS: LevoFLOXacin IV 750 MG in APPROPRIATE DILUENT 1 EA IV SCH (05:43)
[2016-06-23] MEDS: SLF 3 ML SYR IV SCH ×3 (06:00→22:00)
[2016-06-23] MEDS ORDERED: MAG SULF 1GM/100ML (MAG RUN) 1 GM in APPROPRIATE DILUENT 1 EA IV ONE (07:45)
[2016-06-23 08:00] VITALS: BP 144/86
[2016-06-23] MEDS: MULTIVITAMINS/MINERALS THERAP 1 TAB PO SCH (08:11)
[2016-06-23] MEDS: FERROUS SULFATE 325MG TAB PO SCH (08:11)
[2016-06-23] MEDS: OMEPRAZOLE 20 MG CAP PO SCH (08:11)
[2016-06-23] MEDS: ALLOPURINOL 300 MG TAB PO SCH (08:11)
[2016-06-23] MEDS: PRAVASTATIN 20 MG TAB PO SCH (08:11)
[2016-06-23] MEDS: MAGNESIUM OXIDE 400 MG TAB (MAG-OX) PO SCH (08:11)
[2016-06-23] MEDS: rOPINIRole 1MG TAB PO SCH ×2 (08:11→21:34)
[2016-06-23] MEDS: ASPIRIN 81 MG ENTERIC TAB PO SCH (08:11)
[2016-06-23] MEDS: CARVedilol 6.25 MG TAB PO SCH ×2 (08:12→21:35)
[2016-06-23] MEDS: DOXYCYCLINE HYCLATE 100 MG TAB PO SCH ×2 (09:21→21:35)
--- NOTE | 2016-06-23 10:31 | IPNPDOC ---
Text Note Date of Service The patient was seen on 06/23/16. NOTE Subjective: Patient is a 65 year old male with a PMHx of COPD on 2L O2, LUCA on CPAP, HTN, CKD, Gout, Hx of Liposarcoma (s/p partial colon, R kidney and adrenal gland resection), Squamous Lung Ca (Stage 1A, s/p Stereotactic body radiation therapy), Hx of Torsades who presented to the ER with left sided weakness and numbness and tingling. Patient had a recent admission in 04/2016 for pneumonia requiring a chest tube. He also noted some SOB and productive cough. He receiving imaging in the ER which was consistent with a pneumonia. He was admitted to telemetry for possible TIA / CVA. Patient was seen and examined at the bedside. He has no complaints today. Planned for MRI today at 1pm. Objective: Vitals (See below) General: Lying in bed, no acute distress, comfortable, AAOx3 HEENT: NC, AT CVS: RRR, +S1S2 Lungs: Fair air entry b/l, -w/r/r Abdomen: Soft, ND, NT, +BSx4 Extremities: +PPx4, - Edema, - Calf tenderness Neuro: 4/5 strength at LLE and 5/5 all other extremities Assessment and plan: 1. Weakness of left lower extremity - possibly 2/2 syringobulbia and corticospinal tract atrophy, possible brain stem compression 2/2 dolichoectasia , less likely 2/2 CVA, - Presented with left sided weakness of upper and lower extremity, improved over time - Physical reveals focal weakness - Lipid panel reveals elevation in triglycerides - CT head 06/18: Negative for change - ECHO: Preserved EF, Stage 1 DD; Carotid US: no significant stenosis - MRI 06/20: Shows dramatic mass effect on the inferior hanny / superior medulla from tortuous / ectatic left distal vertebral artery, no infarct - c/w Telemetry monitoring and neurological checks - c/w ASA 81 and Pravastatin - Will go for MRI Brain with contrast today - transport has been arranged for 1pm today - Neurology (Dr. Lewis) has been following 2. SOB / Cough - likely 2/2 HCAP - Presented with cough and shortness of breath - Physical did not reveal any significant rhonchi - s/p Leukocytosis - CXR: RLL infiltrate - Blood cultures negative; Sputum cultures positive for S. aureus - Influenza negative - c/w Doxycycline; s/p Zosyn, Vancomycin, Levaquin (Antibiotic day #5) 3. CKD 3 - Cr has improved with IV fluid hydration - Baseline of 1.2-1.3; currently presented with 1.3-1.4 - Will avoid nephrotoxic medications - Will go for MRI today - Will give 1 L NS after MRI - Case discussed with Nephrology (Dr. Erwin) 4. COPD with chronic hypoxic respiratory failure, home oxygen at 2L - c/w inhaled therapy from home 5. Diastolic CHF - Follows with Dr. Nobles - c/w Carvedilol with holding parameters 6. LUCA c/w CPAP - c/w home CPAP 7. Gout - c/w allopurinol 8. Anemia - Hg baseline of 12 - Presented with 13 - Will monitor for now 9. Restless leg syndrome - c/w Ropinirole 10. GERD - c/w Prilosec 11. DVT prophylaxis - c/w Heparin SQ VS,Fishbone, I+O VS, Fishbone, I+O Laboratory Tests 06/23/16 04:19 Red Blood Count 3.87 L, Mean Corpuscular Volume 97.7 H, Mean Corpuscular Hemoglobin 32.5, Mean Corpuscular Hemoglobin Concent 33.3, Red Cell Distribution Width 14.1, Neutrophils (%) (Auto) 70.2 H, Lymphocytes (%) (Auto) 16.5 L, Monocytes (%) (Auto) 7.5 H, Eosinophils (%) (Auto) 2.9, Basophils (%) ( Auto) 0.7, Neutrophils # (Auto) 4.5, Lymphocytes # (Auto) 1.2 L, Monocytes # ( Auto) 0.5, Eosinophils # (Auto) 0.2, Basophils # (Auto) 0.0, Calcium Level 9.1, Aspartate Amino Transf (AST/SGOT) 22, Alanine Aminotransferase (ALT/SGPT) 38, Alkaline Phosphatase 64, Total Bilirubin 0.2, Total Protein 6.8, Albumin 3.0 L Vital Signs Date Time Temp Pulse Resp B/P (MAP) Pulse Ox O2 Delivery O2 Flow Rate FiO2 06/23/16 08:12 83 144/86 06/23/16 08:00 98.3 18 98 Room Air 06/20/16 04:00 3.0 I&O- Last 24 Hours up to 6 AM 06/23/16 06:00 Intake Total 4590 ml Output Total 4025 ml Balance 565 ml ADALID RAMIREZ MD June 23, 2016 10:31
[2016-06-23] MEDS ORDERED: NS 1,000 ML IV SCH (10:45)
[2016-06-23 12:00] VITALS: BP 136/56
--- NOTE | 2016-06-23 14:33 | REP ---
MRI BRAIN WITHOUT WITH CONTRAST: 06/23/2016. COMPARISON: 06/20/2016 MRI/MRA brain. CT brain 06/18/2016. CLINICAL HISTORY: Follow-up noncontrast MRI/MRA with mass effect on the inferior hanny and superior medulla from the tortuous and extremely ectatic left distal vertebral artery. TECHNIQUE: Sagittal T1 with axial T1-T2 FLAIR, diffusion weighted images and ADC mapping sequences and a gradient echo image set. After infusion of 15 mL as of ProHance, axial, sagittal and coronal T1 sequences are then performed. FINDINGS: Lateral, third and fourth ventricles are unchanged. The cerebral cortex preserved and without vascular territory infarct, hemorrhage, mass or mass effect with only minimal scattered white matter hyperintense T2 and FLAIR signal. No intracranial mass effect or edema in the cerebral hemispheres, cerebellum grossly intact. The brainstem again shows the rather marked dolichoectasia of the left vertebral artery into an ectatic basilar artery with the left vertebral crossing left to right at the pontomedullary junction. There is no basilar tip aneurysm. There is no abnormal enhancement of vessels. I do not see evidence of a syrinx in the brainstem or visible proximal cervical spine. The seventh/eighth cranial nerve complexes and mastoids are unremarkable. Orbits and contents intact. Visualized sinuses intact. After contrast administration, there was no abnormal enhancement in the pituitary gland. Suprasellar cisterns, vascular structures are otherwise unremarkable. IMPRESSION: 1. Significant dolichoectasia of the left vertebrobasilar artery with he left vertebral crossing left to right at the pontomedullary junction indenting it. No true aneurysm. No aneurysmal appearance of the basilar tip or other vessels. Nevertheless the ectatic dilated left vertebral artery does flatten the ventral surface of the medulla. All of this unchanged. No other significant or acute finding. Signed by Avi Dueñas MD 06/23/2016 05:07 P
[2016-06-23 16:00] VITALS: BP 126/60
--- NOTE | 2016-06-23 18:14 | ECGEPIP ---
Stationary ECG Study 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
[2016-06-23] MEDS ORDERED: ASPI81TAEC PO (18:48)
[2016-06-23] MEDS ORDERED: DOXY-278 PO (18:55)
[2016-06-23 20:00] VITALS: BP 138/85
[2016-06-23 20:30] VITALS: BP 155/85
[2016-06-23] MEDS: ACETAMINOPHEN 500 MG TAB PO PRN (22:28)
[2016-06-24] MEDS: IPRATROPIUM 0.5MG/ALBUTEROL 2.5MG INH SOL UD 3ML (DUONEB)(J7620) NEB SCH ×2 (01:34→07:31)
[2016-06-24] MEDS: HEPARIN SOD (PORCINE) 5000 UNITS/ML VIAL SC SCH (05:35)
[2016-06-24 06:00] VITALS: BP 147/87
[2016-06-24] MEDS: SLF 3 ML SYR IV SCH (06:00)
[2016-06-24 07:01] LABS: BASO % 0.6 % (0.0-1.0); EOS # 0.2 K/mm3 (0.0-0.50); EOS % 3.6 % (0.0-3.0); LARGE UNSTAINED CELL # 0.1 K/mm3 (0.0-0.4); LARGE UNSTAINED CELL % 2.1 % (0.0-4.0); LYMPH # 1.3 K/mm3 (1.5-4.5); LYMPH % 18.2 % (24.0-44.0); MEAN CORPUSCULAR HEMOGLOBIN 32.2 pg (27.0-33.0); MEAN CORPUSCULAR HGB CONC 32.9 g/dl (32.0-36.5); MEAN CORPUSCULAR VOLUME 97.8 fl (80.0-96.0); MONO # 0.4 K/mm3 (0.0-0.8); MONO % 6.8 % (0.0-5.0); NEUTROPHILS # 4.4 K/mm3 (1.8-7.7); NEUTROPHILS % 68.7 % (36.0-66.0); PLATELET COUNT, AUTOMATED 191 k/mm3 (150-450); RED CELL DISTRIBUTION WIDTH 13.9 % (11.5-14.5); WHITE BLOOD COUNT 6.4 K/mm3 (4.0-10.0)
[2016-06-24 07:14] LABS: ALBUMIN 3.2 GM/DL (3.2-5.2); ALBUMIN/GLOBULIN RATIO 0.82 (1.00-1.93); BILIRUBIN,TOTAL 0.3 MG/DL (0.2-1.0); CREATININE FOR GFR 1.3 MG/DL (0.70-1.30); GLOMERULAR FILTRATION RATE 59.4 (>49); MAGNESIUM LEVEL 1.7 MG/DL (1.8-2.4); POTASSIUM SERUM 3.7 MEQ/L (3.5-5.1); TOTAL PROTEIN 7.1 GM/DL (6.4-8.2)
[2016-06-24] MEDS: FERROUS SULFATE 325MG TAB PO SCH (09:00)
[2016-06-24] MEDS: rOPINIRole 1MG TAB PO SCH (09:07)
[2016-06-24] MEDS: ASPIRIN 81 MG ENTERIC TAB PO SCH (09:07)
[2016-06-24] MEDS: DOXYCYCLINE HYCLATE 100 MG TAB PO SCH (09:07)
[2016-06-24] MEDS: ALLOPURINOL 300 MG TAB PO SCH (09:07)
[2016-06-24] MEDS: MAGNESIUM OXIDE 400 MG TAB (MAG-OX) PO SCH (09:07)
[2016-06-24] MEDS: OMEPRAZOLE 20 MG CAP PO SCH (09:07)
[2016-06-24 09:08] VITALS: BP 145/77
[2016-06-24] MEDS: MULTIVITAMINS/MINERALS THERAP 1 TAB PO SCH (09:08)
[2016-06-24] MEDS: PRAVASTATIN 20 MG TAB PO SCH (09:08)
[2016-06-24] MEDS: CARVedilol 6.25 MG TAB PO SCH (09:08)
--- NOTE | 2016-06-24 17:28 | DS.PDOC ---
Discharge Summary General Date of Admission June 19, 2016 at 10:40 Date of Discharge 06/24/16 Specialist/Consultants Involve: RENÉ JAEGER MD Discharge Summary PROCEDURES PERFORMED DURING STAY: None. ADMITTING DIAGNOSES: 1. . Left-sided weakness, numbness, tingling 2. . Acute kidney injury superimposed on chronic kidney disease 3. . Hypertension DISCHARGE DIAGNOSES: 1. . Left-sided weakness, numbness, tingling 2. . Acute kidney injury superimposed on chronic kidney disease 3. . Hypertension COMPLICATIONS/CHIEF COMPLAINT: Left Sided Weakness. HISTORY OF PRESENT ILLNESS: . 65-year-old male with past medical history of COPD on 2 L of oxygen, obstructive sleep apnea on CPAP, gout, hypertension, chronic kidney disease, history of liposarcoma status post partial colon, right kidney, and adrenal gland resection, and squamous cell lung cancer stage IA, status post stereotactic body radiation therapy presents to the ER with a chief complaint of left-sided weakness and numbness and tingling. The patient was admitted to the hospital service for further evaluation and management. A CT scan of the head on admission revealed no acute changes. An MRI of the brain obtained on 06/20 revealed a dramatic mass effect in the inferior hanny and superior medulla from a tortuous and ectatic left distal vertebral artery, no infarct or other acute cranial abnormalities were noted. An MRA of the brain revealed a tortuous vertebral basilar system. A repeat MRI of the brain with contrast on 06/23 revealed ectatic dilated left vertebral artery that does flatten the ventral surface of the medulla with no acute changes compared to previous imaging. Neurology was consulted for this case and recommended the patient continue with aspirin and statin and follow up as an outpatient for further evaluation and management. No acute surgical intervention was deemed indicated. During the patient's stay at the hospital here his left sided weakness and tingling did improve and he does have 4 out of 5 strength on the extremities in the left side. He was seen by physical therapy and was cleared to be discharged home. The patient was advised to return to the ER if his symptoms were to persist or get worse. DISCHARGE MEDICATIONS: Please see below. ALLERGIES: Please see below. PHYSICAL EXAMINATION ON DISCHARGE: VITAL SIGNS: Please see below. General: No acute distress, alert awake oriented 3 HEENT: Normocephalic, atraumatic CVS: Normal rate, normal rhythm, normal S1, S2 Lungs: Clear to auscultation bilaterally Abdomen: Soft, ND, NT Extremities: No erythema, no tenderness, no swelling Neuro: Patient noted to have 4 out of 5 strength in the left upper and left lower extremities, normal strength in all other extremities LABORATORY DATA: Please see below. IMAGING: MRI BRAIN WITHOUT WITH CONTRAST: 06/23/2016. COMPARISON: 06/20/2016 MRI/MRA brain. CT brain 06/18/2016. CLINICAL HISTORY: Follow-up noncontrast MRI/MRA with mass effect on the inferior hanny and superior medulla from the tortuous and extremely ectatic left distal vertebral artery. TECHNIQUE: Sagittal T1 with axial T1-T2 FLAIR, diffusion weighted images and ADC mapping sequences and a gradient echo image set. After infusion of 15 mL as of ProHance, axial, sagittal and coronal T1 sequences are then performed. FINDINGS: Lateral, third and fourth ventricles are unchanged. The cerebral cortex preserved and without vascular territory infarct, hemorrhage, mass or mass effect with only minimal scattered white matter hyperintense T2 and FLAIR signal. No intracranial mass effect or edema in the cerebral hemispheres, cerebellum grossly intact. The brainstem again shows the rather marked dolichoectasia of the left vertebral artery into an ectatic basilar artery with the left vertebral crossing left to right at the pontomedullary junction. There is no basilar tip aneurysm. There is no abnormal enhancement of vessels. I do not see evidence of a syrinx in the brainstem or visible proximal cervical spine. The seventh/ eighth cranial nerve complexes and mastoids are unremarkable. Orbits and contents intact. Visualized sinuses intact. After contrast administration, there was no abnormal enhancement in the pituitary gland. Suprasellar cisterns, vascular structures are otherwise unremarkable. IMPRESSION: 1. Significant dolichoectasia of the left vertebrobasilar artery with he left vertebral crossing left to right at the pontomedullary junction indenting it. No true aneurysm. No aneurysmal appearance of the basilar tip or other vessels. Nevertheless the ectatic dilated left vertebral artery does flatten the ventral surface of the medulla. All of this unchanged. No other significant or acute finding. PROGNOSIS: Stable ACTIVITY: As tolerated. DIET: . 2 g low sodium diet DISCHARGE PLAN: DISPOSITION: Home, Self-Care. DISCHARGE INSTRUCTIONS: 1. . Follow-up with primary care physician within one week 2. . Follow-up with neurology within 2 weeks 3. . Return to the ER if symptoms worsen DISCHARGE CONDITION: Stable. TIME SPENT ON DISCHARGE: Greater than 30 minutes. Vital Signs/I&Os Vital Signs Date Time Temp Pulse Resp B/P (MAP) Pulse Ox O2 Delivery O2 Flow Rate FiO2 06/24/16 09:08 95 145/77 06/24/16 09:00 Room Air 06/24/16 06:00 97.9 18 91 06/20/16 04:00 3.0 I&O- Last 24 Hours up to 6 AM 06/24/16 06:00 Intake Total 2290 ml Output Total 3925 ml Balance -1635 ml Laboratory Data Labs 24H Laboratory Tests 2 06/23/16 17:55: Total Creatine Kinase 87, Creatine Kinase MB 2.5, Creatine Kinase MB Relative Index 2.87, Troponin I < 0.02 06/24/16 06:32: White Blood Count 6.4, Red Blood Count 4.04L, Hemoglobin 13.0L, Hematocrit 39.5L , Mean Corpuscular Volume 97.8H, Mean Corpuscular Hemoglobin 32.2, Mean Corpuscular Hemoglobin Concent 32.9, Red Cell Distribution Width 13.9, Platelet Count 191, Neutrophils (%) (Auto) 68.7H, Lymphocytes (%) (Auto) 18.2L, Monocytes (%) (Auto) 6.8H, Eosinophils (%) (Auto) 3.6H, Basophils (%) (Auto) 0.6 , Neutrophils # (Auto) 4.4, Lymphocytes # (Auto) 1.3L, Monocytes # (Auto) 0.4, Eosinophils # (Auto) 0.2, Basophils # (Auto) 0.0, Large Unclassified Cells % 2.1 , Large Unclassified Cells # 0.1, Anion Gap 8, Glomerular Filtration Rate 59.4, Blood Urea Nitrogen 22H, Creatinine 1.30, Sodium Level 137, Potassium Level 3.7 , Chloride Level 102, Carbon Dioxide Level 27, Calcium Level 9.0, Aspartate Amino Transf (AST/SGOT) 26, Alanine Aminotransferase (ALT/SGPT) 43, Alkaline Phosphatase 60, Total Bilirubin 0.3, Total Protein 7.1, Albumin 3.2, Magnesium Level 1.7L, Albumin/Globulin Ratio 0.82L CBC/BMP Laboratory Tests 06/24/16 06:32 Red Blood Count 4.04 L, Mean Corpuscular Volume 97.8 H, Mean Corpuscular Hemoglobin 32.2, Mean Corpuscular Hemoglobin Concent 32.9, Red Cell Distribution Width 13.9, Neutrophils (%) (Auto) 68.7 H, Lymphocytes (%) (Auto) 18.2 L, Monocytes (%) (Auto) 6.8 H, Eosinophils (%) (Auto) 3.6 H, Basophils (%) (Auto) 0.6, Neutrophils # (Auto) 4.4, Lymphocytes # (Auto) 1.3 L, Monocytes # ( Auto) 0.4, Eosinophils # (Auto) 0.2, Basophils # (Auto) 0.0, Calcium Level 9.0, Aspartate Amino Transf (AST/SGOT) 26, Alanine Aminotransferase (ALT/SGPT) 43, Alkaline Phosphatase 60, Total Bilirubin 0.3, Total Protein 7.1, Albumin 3.2 Microbiology Microbiology 06/18/16 Blood Culture - Final, Complete NO GROWTH AFTER 5 DAYS 06/18/16 Blood Culture - Final, Complete NO GROWTH AFTER 5 DAYS 06/20/16 Gram Stain - Final, Complete 06/20/16 Sputum Culture - Final, Complete Staph.aureus Methicillin Resis Yeast Like Organism 06/19/16 Influenza Virus Type A Antigen - Final, Complete 06/19/16 Influenza Virus Type B Antigen - Final, Complete Discharge Medications Scheduled Allopurinol (Zyloprim) 300 Mg Tab, 300 MG PO DAILY, (Reported) Aspirin (Aspirin EC) 81 Mg Tabec, 81 MG PO DAILY Carvedilol (Carvedilol) 6.25 Mg Tab, 6.25 MG PO BID, (Reported) Doxycycline Hyclate (Doxycycline) 100 Mg Cap, 100 MG PO BID Ferrous Sulfate (Ferrous Sulfate) 325 Mg Tab, 325 MG PO DAILY, (Reported) Fluticasone/Vilanterol (Breo Ellipta 200-25 Mcg/INH) 1 Inh Inh, 1 PUFF INH DAILY , (Reported) Magnesium Oxide (Magnesium Oxide 400) 400 Mg Tab, 400 MG PO DAILY, (Reported) Multivitamins *[facility] STOCKED* (Thera M Plus *[facility] STOCKED*) 1 Tab Tab, 1 TAB PO DAILY, (Reported) Omeprazole (Omeprazole) 20 Mg Cap, 20 MG PO DAILY, (Reported) Pravastatin Sodium (Pravastatin Sodium) 20 Mg Tab, 20 MG PO DAILY, (Reported) Ropinirole Hydrochloride (Ropinirole HCl) 1 Mg Tab, 1 MG PO DAILY, (Reported) Ropinirole Hydrochloride (Ropinirole HCl) 1 Mg Tab, 2 MG PO QHS, (Reported) Tiotropium [place] Monohydrate (Spiriva Respimat) 2.5 Mcg/Act Spr, 2 INHALATION INH DAILY, (Reported) Scheduled PRN Acetaminophen (Acetaminophen) 500 Mg Tab, 1,000 MG PO Q6H PRN for PAIN, ( Reported) Albuterol Sulfate (Ventolin Hfa) 200 Puff/8 Gm Aers, 2 PUFF INH QID PRN for SHORTNESS OF BREATH, (Reported) Albuterol/Ipratropium (Ipratropium [place]/Albut 0.5-2.5 (3) mg/3Ml) 1 Kenna Kenna, 1 KENNA INH QID PRN for SHORTNESS OF BREATH, (Reported) Oxycodone/Acetaminophen (Oxycodone/Acetaminophen 5-325 mg) 1 Tab Tab, 1 TAB PO Q4H PRN for PAIN, (Reported) Tramadol HCl (Tramadol HCl) 50 Mg Tab, 25 MG PO Q12H PRN for PAIN, (Reported) Allergies Coded Allergies: Hexachlorophene (Verified Allergy, Intermediate, ITCHING, 05/06/16) NGUYEN MOORE MD June 24, 2016 17:28
--- NOTE | 2016-06-24 19:56 | DSES ---
DATE OF ADMISSION: 06/19/2016 DATE OF DISCHARGE: 06/24/2016 ATTENDING PHYSICIAN: Dr. Castillo Montez PRIMARY CARE PHYSICIAN: Dr. Alex Pike REFERRING PHYSICIAN: None. CONSULTED PHYSICIAN: Dr. Chase and Dr. Lewis CONDITION AT DISCHARGE: Stable. FINAL DIAGNOSIS: Weakness in the left lower extremity, possibly secondary to syringobulbia and cortical spinal tract atrophy possibly secondary to brain stem compression secondary to dolichoectasia, less likely secondary to cerebrovascular accident (CVA). PROCEDURES: None. HISTORY OF PRESENT ILLNESS: The patient is a 65-year-old male with a past medical history of chronic obstructive pulmonary disease (COPD) on 2 liters of oxygen, obstructive sleep apnea on continuous positive airway pressure (CPAP), hypertension, chronic kidney disease (CKD), gout, history of liposarcoma, status post partial colon, right kidney and adrenal gland resection, squamous lung cancer, stage 1A, status post sterotactic radiation therapy, history of torsades, who presented to the emergency room with left-sided weakness and numbness and tingling. Patient had a recent admission on 04/10/2016 for pneumonia requiring a chest tube. He also noted some shortness of breath and productive cough. He received imaging in the emergency room which was consistent with pneumonia. He was admitted to telemetry for possible transient ischemic attack (TIA) and CVA. HOSPITAL COURSE: Weakness in the left lower extremity possibly secondary to syringobulbia and cortical spinal tract atrophy, possible brain stem compression secondary to dolichoectasia, less likely secondary to CVA who presented with left sided weakness of upper and lower extremity which improved over time. Physical revealed focal weakness. Liver panel revealed elevation of triglycerides. CT head 06/18 was negative. Echo showed preserved ejection fraction and stage 1 diastolic dysfunction. Carotid ultrasound revealed no significant stenosis. MRI on 06/20 shows a dramatic mass effect on the inferior hanny/superior medulla from tortuous/ectatic left distal vertebral artery. No infarct was noted. Continued with telemetry monitoring and neurological checks. While he was an inpatient, patient was put on aspirin 81 mg and pravastatin. Patient went for an MRI with contrast on 06/23/2016. Results have been discussed with neurology and patient will be following up with neurology as an outpatient. Will do referral for vascular surgery for possible reevaluation. 2. Shortness of breath with cough. Likely secondary to healthcare associated pneumonia. Presented with cough and shortness of breath. Physical did not reveal any significant rhonchi, status post leukocytosis. Chest x-ray showed right lower lobe infiltrate. Blood cultures were negative. Sputum cultures were positive for staphylococcus aureus. Influenza was negative. Patient has been on Zosyn, vancomycin, and Levaquin which has been discontinued and he has been put on doxycycline based on susceptibility. He will be remaining on doxycycline for the remainder of 5 more days with completion of antibiotic course. 3. Chronic kidney disease III. Creatine has improved with IV fluid hydration, baseline creatinine of 1.2-1.3. Currently presented with a creatinine of 1.3-1.4. Today his creatinine was 1.2. Patient had received MRI today with contrast. Case has been discussed with Nephrology, Dr. Erwin . Plan was for IV fluid hydration prior to MRI and continue on IV fluid hydration after MRI. We will plan for discharge on 06/23/2016. 4. COPD with chronic hypoxic respiratory failure. Using home oxygen at 2 liters. Continue with inhaled therapy from home. 5. Diastolic congestive heart failure. Follows with Dr. Nobles. Continue with carvedilol with holding parameters. 6. Obstructive sleep apnea. Continue with CPAP at home. 7. Gout. Continue with allopurinol. 8. Anemia. Hemoglobin at baseline is 12, presented with a hemoglobin of 13. Will monitor for now. 9. Restless leg syndrome. Continue with ropinirole. 10. Gastroesophageal reflux disease (GERD). Continue with Prilosec. 11. Deep venous thrombosis (DVT) prophylaxis. Continue with heparin subcu. DISCHARGE MEDICATIONS: Patient is being discharged home with the following medication list: - acetaminophen 1,000 mg by mouth every 6 hours - albuterol 2 puffs inhaled four times a day as needed for shortness of breath - allopurinol 300 mg by mouth daily - carvedilol 6.25 mg by mouth twice a day - ferrous sulfate 325 mg by mouth daily - Breo 1 puff inhaled daily - magnesium oxide 400 mg by mouth daily - multivitamin 1 tablet by mouth daily - omeprazole 20 mg by mouth daily - oxycodone/acetaminophen 5/325 1 tablet by mouth every 4 hours as needed pain - pravastatin 20 mg by mouth daily - ropinirole 1 mg by mouth daily - ropinirole 2 mg by mouth at night - Spiriva 2 puffs inhaled daily - tramadol 25 mg by mouth q 12 hours as needed for pain NEW MEDICATIONS PRESCRIBED: Include: - aspirin 81 mg by mouth daily - doxycycline 100 mg by mouth twice a day for 5 more days DISCHARGE INSTRUCTIONS: Patient has been advised to followup with his primary care provider and neurology within the next 7 days. He has been advised to remain complaint with treatment plan and medications. He will return to the emergency room if he experiences any problems. TIME SPENT ON DISCHARGE: 35 minutes.
== END 2016-06-24 13:33 | disposition home or self-care (01) | DRG 80 ==
LOC: M ED 22:40 → M ED INP 06-19 00:13 → OBSVTOIN 06-19 10:40 → M PCU 06-19 13:03 → M MSPAV 06-23 20:25
PROVIDERS: ADMIT Hospitalist; ATTEND Internal Medicine
DX: G93.5 Compression of brain (principal); J18.9 Pneumonia, unspecified organism; I50.32 Chronic diastolic (congestive) heart failure; N17.9 Acute kidney failure, unspecified; G45.0 Vertebro-basilar artery syndrome; Z66 Do not resuscitate; N18.3 Chronic kidney disease, stage 3 (moderate); D64.9 Anemia, unspecified; M10.9 Gout, unspecified; I13.0 Hypertensive heart and chronic kidney disease with heart failure and stage 1 through stage 4 chronic kidney disease, or unspecified chronic kidney disease; K21.9 Gastro-esophageal reflux disease without esophagitis; G25.81 Restless legs syndrome; G47.33 Obstructive sleep apnea (adult) (pediatric); J44.9 Chronic obstructive pulmonary disease, unspecified; Z99.81 Dependence on supplemental oxygen; Z99.89 Dependence on other enabling machines and devices; Z92.3 Personal history of irradiation; Z85.118 Personal history of other malignant neoplasm of bronchus and lung; Z90.49 Acquired absence of other specified parts of digestive tract; Z79.82 Long term (current) use of aspirin; Z79.899 Other long term (current) drug therapy; Z88.8 Allergy status to other drugs, medicaments and biological substances; Z87.891 Personal history of nicotine dependence; Z83.3 Family history of diabetes mellitus; Z80.9 Family history of malignant neoplasm, unspecified; Z82.49 Family history of ischemic heart disease and other diseases of the circulatory system; Z83.6 Family history of other diseases of the respiratory system; Y95 Nosocomial condition

== ENCOUNTER 2016-07-02 09:28 | Emergency (ER) | payer MEDICARE, MEDICAID ==
[~2016-07-02] VITALS: Ht 193 cm; Wt 145.1 kg
[~2016-07-02 09:28] MED LIST changes: +ASPI81TAEC PO; +IPRASOL4 INH; +OXYC1TAB23 PO; -rOPINIRole 1MG TAB PO SCH
[2016-07-02] MEDS ORDERED: SERT25TA PO (09:41)
[2016-07-02] MEDS ORDERED: IPRATROPIUM 0.5MG/ALBUTEROL 2.5MG INH SOL UD 3ML (DUONEB)(J7620) NEB PRN (10:30)
[2016-07-02] MEDS ORDERED: methylPREDNISolone INJ 125 MG/2 ML VIAL (J2930) IV ONE (10:30)
[2016-07-02 10:31] LABS: BASO % 0.5 % (0.0-1.0); EOS # 0.2 K/mm3 (0.0-0.50); EOS % 1.5 % (0.0-3.0); LARGE UNSTAINED CELL # 0.2 K/mm3 (0.0-0.4); LARGE UNSTAINED CELL % 1.5 % (0.0-4.0); LYMPH # 1.2 K/mm3 (1.5-4.5); MEAN CORPUSCULAR HEMOGLOBIN 32.7 pg (27.0-33.0); MEAN CORPUSCULAR HGB CONC 33.6 g/dl (32.0-36.5); MEAN CORPUSCULAR VOLUME 97.4 fl (80.0-96.0); MONO # 0.4 K/mm3 (0.0-0.8); NEUTROPHILS # 9.1 K/mm3 (1.8-7.7); NEUTROPHILS % 81.5 % (36.0-66.0); PLATELET COUNT, AUTOMATED 201 k/mm3 (150-450); RED CELL DISTRIBUTION WIDTH 14.1 % (11.5-14.5); WHITE BLOOD COUNT 11.2 K/mm3 (4.0-10.0)
[2016-07-02 10:48] LABS: ANION GAP 11 MEQ/L (8-16); BLOOD UREA NITROGEN 28 MG/DL (7-18); CALCIUM LEVEL 9.1 MG/DL (8.8-10.2); CARBON DIOXIDE LEVEL 27 MEQ/L (21-32); CHLORIDE LEVEL 100 MEQ/L (98-107); CREATININE FOR GFR 1.29 MG/DL (0.70-1.30); GLOMERULAR FILTRATION RATE 59.9 (>49); GLUCOSE, FASTING 149 MG/DL (80-110); POTASSIUM SERUM 4.4 MEQ/L (3.5-5.1); SODIUM LEVEL 138 MEQ/L (136-145)
[2016-07-02 10:51] LABS: ABG BASE EXCESS 3.5 (-2.0-2.0); ABG HCO3 28.5 MEQ/L (22.0-26.0); ABG PARTIAL PRESSURE CO2 44.6 mmHg (35.0-45.0); ABG STANDARD HCO3 27.5 MEQ/L (22.0-26.0); ABG TOTAL CO2 29.9 MEQ/L (23.0-31.0); ABG pH (ARTERIAL) 7.424 UNITS (7.350-7.450)
--- NOTE | 2016-07-02 10:51 | REP ---
PORTABLE CHEST, ONE VIEW: HISTORY: Dyspnea. COMPARISON: 06/21/2016 There is elevation of the left hemidiaphragm. An increase in interstitial markings is present in the lower lobes consistent with chronic interstitial fibrosis. The heart is normal in size. The pulmonary vasculature is normal in appearance. IMPRESSION: Bibasilar chronic interstitial fibrosis. Signed by Jonh Herrera MD 07/02/2016 11:00 A
[2016-07-02] MEDS ORDERED: PRED20TA PO (11:29)
[2016-07-02 11:50] VITALS: BP 130/79
--- NOTE | 2016-07-02 14:28 | ECGEPIP ---
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
== END 2016-07-02 11:54 | disposition home or self-care (01) ==
LOC: M ED 11:37
DX: J44.1 Chronic obstructive pulmonary disease with (acute) exacerbation (principal); I12.9 Hypertensive chronic kidney disease with stage 1 through stage 4 chronic kidney disease, or unspecified chronic kidney disease; N18.9 Chronic kidney disease, unspecified; G47.33 Obstructive sleep apnea (adult) (pediatric); F17.200 Nicotine dependence, unspecified, uncomplicated; Z85.118 Personal history of other malignant neoplasm of bronchus and lung; Z88.8 Allergy status to other drugs, medicaments and biological substances; Z79.899 Other long term (current) drug therapy; Z79.82 Long term (current) use of aspirin; Z79.2 Long term (current) use of antibiotics; Z79.51 Long term (current) use of inhaled steroids
CPT/HCPCS: 36600; 71010; 80048; 82550; 82553; 82803; 83880; 84484; 85025; 87040; 93005; 93041; 96374; 99285; J2930

== ENCOUNTER 2016-07-08 18:11 | Inpatient (IN) | payer MEDICARE, MEDICAID ==
[~2016-07-08] VITALS: Ht 193 cm; Wt 145.4 kg
[~2016-07-08 18:11] MED LIST changes: +PRED20TA PO; +SERT25TA PO
[2016-07-08 19:06] LABS: MEAN CORPUSCULAR HGB CONC 33.4 g/dl (32.0-36.5); MEAN CORPUSCULAR VOLUME 98.7 fl (80.0-96.0); PLATELET COUNT, AUTOMATED 207 k/mm3 (150-450); RED CELL DISTRIBUTION WIDTH 14.1 % (11.5-14.5); WHITE BLOOD COUNT 12.1 K/mm3 (4.0-10.0)
[2016-07-08 19:19] LABS: ANION GAP 9 MEQ/L (8-16); BLOOD UREA NITROGEN 50 MG/DL (7-18); CALCIUM LEVEL 9.4 MG/DL (8.8-10.2); CARBON DIOXIDE LEVEL 26 MEQ/L (21-32); CHLORIDE LEVEL 101 MEQ/L (98-107); CREATININE FOR GFR 1.74 MG/DL (0.70-1.30); GLOMERULAR FILTRATION RATE 42.4 (>49); GLUCOSE, FASTING 201 MG/DL (80-110); POTASSIUM SERUM 4.4 MEQ/L (3.5-5.1); SODIUM LEVEL 136 MEQ/L (136-145)
[2016-07-08 19:26] LABS: ALBUMIN 3.4 GM/DL (3.2-5.2); ALBUMIN/GLOBULIN RATIO 1.03 (1.00-1.93); ALKALINE PHOSPHATASE 103 U/L (45-117); ALT/SGPT 104 U/L (12-78); AST/SGOT 47 U/L (15-37); BILIRUBIN,DIRECT < 0.1 MG/DL (0.0-0.2); BILIRUBIN,TOTAL 0.3 MG/DL (0.2-1.0); TOTAL PROTEIN 6.7 GM/DL (6.4-8.2)
[2016-07-08 20:03] LABS: EOSINOPHILS 2 % (0-5)
--- NOTE | 2016-07-08 20:26 | REP ---
PORTABLE CHEST: HISTORY: Cough and dyspnea. COMPARISON: 07/02/2016 The technique utilized in obtaining the radiograph has magnified the cardiac silhouette and accentuated the interstitial markings. Cardiomediastinal silhouette is unchanged. The lung goldstein are essentially stable. There is chronic basilar fibrotic change without elevation of the diaphragmatic surfaces of the left lung, status quo. No acute patchy parenchymal opacities or pleural effusions seen to have developed on this limited portable exam. IMPRESSION: No significant change from the prior exam. No plain radiographic evidence of acute cardiopulmonary disease. If possible obtain PA and lateral views of the chest for further evaluation. Signed by Roc Camacho DO 07/09/2016 04:27 P
[2016-07-08] MEDS ORDERED: methylPREDNISolone INJ 125 MG/2 ML VIAL (J2930) IV ONE (20:30)
[2016-07-08] MEDS ORDERED: ASPI81TA21 PO (20:45)
[2016-07-08] MEDS ORDERED: REQU2TAB3 PO (20:46)
[2016-07-08] MEDS ORDERED: HYDR-4274 PO (20:47)
[2016-07-08] MEDS ORDERED: PRED20TA PO (20:48)
--- NOTE | 2016-07-08 20:55 | ECGEPIP ---
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
[2016-07-08] MEDS: SERTRALINE HCL 25 MG TABLET PO SCH (21:00)
[2016-07-08] MEDS: rOPINIRole 1MG TAB PO SCH ×2 (21:00→23:58)
[2016-07-08] MEDS: IPRATROPIUM 0.5MG/ALBUTEROL 2.5MG INH SOL UD 3ML (DUONEB)(J7620) NEB PRN ×3 (21:14→22:20)
[2016-07-08] MEDS ORDERED: BISACODYL 10 MG SUPP PR PRN (21:15)
[2016-07-08] MEDS ORDERED: ALBUTEROL 90 MCG/ACT 8GM HFA INHALER INH PRN (21:30)
[2016-07-08] MEDS ORDERED: hydrOXYzine 50 MG TAB PO PRN (21:30)
[2016-07-08] MEDS ORDERED: IPRATROPIUM 0.5MG/ALBUTEROL 2.5MG INH SOL UD 3ML (DUONEB)(J7620) INH PRN (21:30)
[2016-07-08 23:12] VITALS: BP 136/83
[2016-07-08] MEDS: CARVedilol 6.25 MG TAB PO SCH (23:40)
[2016-07-09 04:00] VITALS: BP 122/75
[2016-07-09] MEDS: methylPREDNISolone INJ 125 MG/2 ML VIAL (J2930) IV SCH ×4 (04:23→20:40)
--- NOTE | 2016-07-09 05:13 | HPE ---
DATE OF ADMISSION: 07/08/2016 PRIMARY CARE PHYSICIAN: Dr. Pike MODEL MAKER PLASTIC: Dr. Almeida SIZE CUTTER: Dr. Kimball THORACIC SURGEON: Dr. Perez CHIEF COMPLAINT: Left upper and lower extremity discomfort as well as shortness of breath. CODE STATUS: DO NOT INTUBATE (DNI). HISTORY OF PRESENT ILLNESS: Mr. Winchester is a 65-year-old male with multiple past medical histories, who presented to emergency room (ER) due to experiencing shortness of breath since 3 p.m. this afternoon. Patient is from [facility], who expressed that at around 3 p.m. when he was speaking with his friend, he became out of breath. Patient has chronic obstructive pulmonary disease (COPD) and on 3 liters oxygen at night. Patient used his oxygen and went up to 4 liters; however, patient did not notice any changes in his dyspnea. Patient also used some breathing treatment; however, it did not work and, therefore, patient came to ER. Patient also experienced discomfort in both left upper and lower extremities, which had started today. Patient expressed that it feels like restless leg syndrome; however, it is in both upper and lower extremities. Patient took ropinirole for his restless leg syndrome; however, patient expressed that the discomfort continues. Patient did not lose his consciousness. Patient expressed that his sputum production has not been increased or the color or the volume of the sputum has not changed. Patient also denies increase of the coughing. Patient denies having chills, night sweats, or fever. Patient also denies seizure-type activity, loss of consciousness, or blurry vision. ALLERGIES: HEXACHLOROPHENE causes rash. PAST MEDICAL HISTORY: 1. Emphysema. 2. Left lower lobe pneumonia. 3. COPD on 3 liters oxygen at night. 4. Sleep apnea on continuous positive airway pressure (CPAP). 5. Gout. 6. Hypertension. 7. Chronic kidney insufficiency. 8. History of liposarcoma and partial colon, right kidney, and right adrenal gland resection. 9. 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 10. Stage IA lung cancer, right lower lobe, treated with stereotactic body radiation therapy treatment of squamous cell carcinoma with different morphology. 11. Torsades de pointes, which has resolved. PAST SURGICAL HISTORY: 1. Liposarcoma with resection of the right kidney and right adrenal gland resection. 2. Right lower lobe radiation. 3. Left upper lobectomy secondary to lung cancer. 4. Fused left ankle. 5. Cholecystectomy. 6. Tonsillectomy. 7. Chest tube. HOME MEDICATIONS: - acetaminophen 500 mg by mouth every 6 hours as needed pain - Ventolin HFA two puffs inhaler four times a day as needed shortness of breath - ipratropium bromide/albuterol one solution inhaled four times a day as needed shortness of breath - Zyloprim 300 mg by mouth daily - aspirin 81 mg by mouth daily - carvedilol 6.25 mg by mouth twice a day - ferrous sulfate 325 mg by mouth daily - Breo Ellipta one puff inhaler daily - hydralazine 50 mg by mouth every 12 hours as needed anxiety - magnesium oxide 400 mg by mouth daily - multivitamin one tablet by mouth daily - omeprazole 20 mg by mouth daily - pravastatin 20 mg by mouth daily - prednisone 20 mg by mouth daily MDD for 3 days - ropinirole 1 mg by mouth daily - Requip 2 mg by mouth nightly - sertraline HCl 25 mg by mouth daily - Spiriva Respimat two inhaler INH daily FAMILY HISTORY: Patient's mother due to diabetes mellitus and liver cancer. Patient's father due to emphysema and heart disease. Patient has two children, who are healthy. Patient has two sisters who . Patient's older sister due to amyotrophic lateral sclerosis (ALS) and Parkinson; patient's younger sister due to unknown cancer. SOCIAL HISTORY: Patient denies illicit drug use or alcohol usage. Patient quit smoking 3 years ago. However, before that, patient has a history of 50 years of smoking about 1.5 packs per day. Patient denies recent travel or sick contact. Patient lives alone. Patient has one cat. 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 Patient lives in a [facility] community. REVIEW OF SYSTEMS: GENERAL: Patient denies fever, chills, night sweats. Patient also denies weight loss or weight gain. HEENT: Patient denies blurry vision, lightheadedness, or dizziness. Patient also denies acute vision or hearing changes. Patient also denies problem with chewing food or sinusitis. NECK: Patient denies lumps, bumps, or decreased range of motion of his neck. HEART: Patient denies palpitations, racing or skipping heart beat, or chest pain. LUNGS: Patient expressed that he has been experiencing dyspnea. However, at the time of visit, patient back in baseline. However, patient denies increase of sputum production or coughing. Patient also denies change of the sputum characteristics. ABDOMEN: Patient denies abdominal pain, nausea, vomiting, diarrhea, constipation, melena, hematochezia, or hemoptysis. EXTREMITIES: Patient expressed that he has discomfort in both left upper and lower extremities that started today, and patient also expressed that he has weakness in his left lower extremity; however, it is chronic. NEUROLOGY: Patient has history of cerebrovascular accident (CVA). However, patient denies seizure-type activities. PHYSICAL EXAMINATION: VITAL SIGNS: Temperature 97, pulse 93, respiratory rate 16, blood pressure 128/81, pulse oximetry 94% on room air. GENERAL APPEARANCE: Patient was lying in bed in no acute distress. Patient was awake, alert, and oriented to time, place, and person. HEENT: Normocephalic, atraumatic. Pupils are equal, reactive to light. Oral mucosa is moist. Patient is on 2 liters nasal cannula. NECK: Soft, supple. No lymphadenopathy or thyromegaly. No jugular venous distension (JVD). HEART: Regular rate and rhythm. Normal S1, S2. ABDOMEN: Soft, nontender. Positive bowel sounds in all quadrants. Obese. No hepatomegaly. No tenderness to palpation. LUNGS: Patient has decreased breath sounds on the right hemithorax compared to the left. Patient has scattered rhonchi and rales throughout. EXTREMITIES: Patient has +2 pulses in both lower extremities. Feet are warm. Patient has no edema in lower extremities. However, patient has decreased strength on the left lower extremity compared to right lower extremity (4 out of 5). NEUROLOGY: Patient has cranial nerves II-XII intact. Patient has mild sensory deficiencies in his toes bilaterally. LABORATORY DATA: White blood cells is 12.1, red blood cells 4.63, hemoglobin 15.3, hematocrit 45.7, MCV 98.7, MCH 33, MCHC 33.4, RDW 14.1, platelet count 207, neutrophil percentage 62, lymphocyte percentage 24, monocyte percentage 10, eosinophil percentage 2, metamyelocytes 1, myelocytes 1, platelet estimate normal. Sodium 136, potassium 4.4, chloride 101, carbon dioxide 26, anion gap 9, BUN 50, creatine 1.74, glomerular filtration rate 42.4, fasting glucose 201, calcium 9.4, total bilirubin 0.3, direct bilirubin less than 0.1, AST 47, ALT 104, alkaline phosphatase 103, total creatine kinase 97, CK-MB 4.2, troponin I less than 0.02, BNP 36.4, total protein 6.7, albumin 3.4, albumin/globulin ratio 1.03, TSH 2.430. IMAGING TECHNIQUE: Chest x-ray shows no significant changes from the previous study, which was done on 07/02/2016. No plain radiological evidence of acute cardiopulmonary disease. ASSESSMENT AND PLAN: 1. Chronic obstructive pulmonary disease exacerbation. At this time, we have started patient on Solu-Medrol. Also we have started patient on oxygen with saturation of 88-92%. Will continue patient on the current breathing treatment. Will continue monitoring patient for any abnormal symptoms. 2. Left upper and lower extremity discomfort. Patient has a history of CVA. At this time, ER has been contacted, neurologist who requested patient to have MRI of the spine, lumbosacral (LS), without contrast as well as MRI of the spine, cervical, without contrast, and the results are pending at this time. Patient is on aspirin. We have ordered neurologic check every 4 hours. Also, due to the history of restless leg syndrome, we will continue patient on ropinirole. Also, we have ordered occupational therapy (OT) and physical therapy for evaluation and treatment. 3. Acute kidney injury superimposed on chronic kidney injury. Based on documentation, patient's creatine baseline is 1.2 to 1.3. However, patient's creatine has increased today to 1.74. We will continue monitoring patient. At this time, patient is euvolemic, and I have not started patient on IV fluid. However, I have ordered urine creatine and urine sodium level so we can calculate the fractional excretion of sodium (FENa). However, the result is pending at this time. 4. Diastolic congestive heart failure. Patient recently had the echocardiogram, which indicated patient has grade 1 diastolic congestive heart failure. At this point, we will continue patient on carvedilol 6.25 mg by mouth twice a day. However, patient is not on diuretic medication. 5. Transaminitis. This is an acute elevation of ALT and AST. This could be secondary to statin. However, due to other possibilities, I have ordered liver ultrasound and the result is pending at this time. 6. Sleep apnea. Patient will bring his CPAP to the hospital with the oxygen. 7. Restless leg syndrome. We will continue patient on ropinirole. 8. Gastroesophageal reflux disease (GERD). Will continue patient on Prilosec. 9. History of cerebrovascular accident. Patient is on aspirin. Also, we will continue patient on pravastatin 20 mg by mouth daily. 10. Anxiety and depression. Will continue patient on Zoloft. Also, we will continue patient on hydralazine 50 mg by mouth every 12 hours as needed anxiety. 11. Deep venous thrombosis (DVT) prophylaxis. Patient is on heparin 5000 units every 12 hours. 12. Iron deficiency. Will continue patient on ferrous sulfate. My preceptor for this patient encounter was Dr. Malhotra. The preceptor was physically present in the building during the encounter and was fully available. As needed, all aspects of the patient interview, examination, medical decision making process, and medical care plan development were reviewed and approved by the preceptor. The preceptor is aware and concurs with the plan as stated in the body of this note and will attest to such by his/her cosignature.
[2016-07-09 05:52] LABS: BASO % 0.3 % (0.0-1.0); EOS % 0.4 % (0.0-3.0); LARGE UNSTAINED CELL % 0.4 % (0.0-4.0); LYMPH # 0.7 K/mm3 (1.5-4.5); LYMPH % 5.8 % (24.0-44.0); MEAN CORPUSCULAR HEMOGLOBIN 32.5 pg (27.0-33.0); MEAN CORPUSCULAR HGB CONC 33.2 g/dl (32.0-36.5); MEAN CORPUSCULAR VOLUME 98.1 fl (80.0-96.0); MONO # 0.3 K/mm3 (0.0-0.8); MONO % 2.4 % (0.0-5.0); NEUTROPHILS # 10.2 K/mm3 (1.8-7.7); NEUTROPHILS % 90.7 % (36.0-66.0); PLATELET COUNT, AUTOMATED 196 k/mm3 (150-450); RED CELL DISTRIBUTION WIDTH 14.2 % (11.5-14.5); WHITE BLOOD COUNT 11.3 K/mm3 (4.0-10.0)
[2016-07-09 06:09] LABS: ALBUMIN 3.3 GM/DL (3.2-5.2); ALBUMIN/GLOBULIN RATIO 0.87 (1.00-1.93); ALKALINE PHOSPHATASE 72 U/L (45-117); ALT/SGPT 103 U/L (12-78); ANION GAP 6 MEQ/L (8-16); AST/SGOT 48 U/L (15-37); BILIRUBIN,TOTAL 0.4 MG/DL (0.2-1.0); BLOOD UREA NITROGEN 51 MG/DL (7-18); CALCIUM LEVEL 9.3 MG/DL (8.8-10.2); CARBON DIOXIDE LEVEL 25 MEQ/L (21-32); CHLORIDE LEVEL 102 MEQ/L (98-107); CREATININE FOR GFR 1.56 MG/DL (0.70-1.30); GLOMERULAR FILTRATION RATE 48.1 (>49); GLUCOSE, FASTING 200 MG/DL (80-110); POTASSIUM SERUM 5.1 MEQ/L (3.5-5.1); SODIUM LEVEL 133 MEQ/L (136-145); TOTAL PROTEIN 7.1 GM/DL (6.4-8.2)
[2016-07-09 08:00] VITALS: BP 141/84
[2016-07-09] MEDS: ALLOPURINOL 300 MG TAB PO SCH (09:14)
[2016-07-09] MEDS: CARVedilol 6.25 MG TAB PO SCH ×2 (09:14→20:39)
[2016-07-09] MEDS: FERROUS SULFATE 325MG TAB PO SCH (09:14)
[2016-07-09] MEDS: rOPINIRole 1MG TAB PO SCH ×2 (09:14→20:39)
[2016-07-09] MEDS: ASPIRIN 81 MG ENTERIC TAB PO SCH (09:14)
[2016-07-09] MEDS: MULTIVITAMINS/MINERALS THERAP 1 TAB PO SCH (09:14)
[2016-07-09] MEDS: OMEPRAZOLE 20 MG CAP PO SCH (09:14)
[2016-07-09] MEDS: PRAVASTATIN 20 MG TAB PO SCH (09:14)
[2016-07-09] MEDS: MAGNESIUM OXIDE 400 MG TAB (MAG-OX) PO SCH (09:14)
[2016-07-09] MEDS: HEPARIN SOD (PORCINE) 5000 UNITS/ML VIAL SC SCH ×2 (09:15→20:40)
--- NOTE | 2016-07-09 10:35 | REP ---
RIGHT UPPER QUADRANT ULTRASOUND: Real-time sonographic evaluation of the right upper quadrant performed. Patient has had a prior right nephrectomy and cholecystectomy. There is no intrahepatic or extrahepatic biliary dilatation, common bile duct measuring 6 mm in diameter. Liver demonstrates diffuse heterogeneous increased echotexture compatible with diffuse fibrofatty infiltration. No gross liver or pancreatic mass is seen. Pancreas is not optimally seen due to overlying bowel gas. There is no ascites. IMPRESSION: Diffuse fibrofatty infiltration of the liver. Signed by Jorden Weinstein MD 07/10/2016 07:03 P
[2016-07-09 12:00] VITALS: BP 138/80
[2016-07-09] MEDS ORDERED: LOPERAMIDE 2 MG CAP PO ONE (12:00)
--- NOTE | 2016-07-09 12:16 | IPNPDOC ---
Subjective Date Seen The patient was seen on 07/09/16. Subjective Chief Complaint/HPI The patient is a 65-year-old male admitted with a reason for visit of SOB. Events since last encounter Patient missed to being short of breath but this is consistent with his baseline. Patient feels okay on oxygen. Denies any abdominal pain. Admits to still having some weakness in left lower extremity. Denies any numbness at this time. Had 2 loose stools this morning with no blood. Says this happens when he drinks juice. General: Denies: Chills, Night Sweats Constitutional: Denies: Chills, Fever Eyes: Denies: Vision change ENT: Denies: Head Aches Skin: Denies: Rash, Lesions Pulmonary: Reports: Dyspnea, Denies: Cough Cardiovascular: Reports: Chest Pain Gastrointestinal: Denies: Nausea, Vomiting, Abdominal Pain Genitourinary: Denies: Dysuria, Frequency, Incontinence Neurological: Reports: Weakness (left lower extremity), Change in speech ( hoarse voice since Thursday), Denies: Numbness Psych: Reports: Mood Normal Objective Physical Examination General Exam: Positive: Alert, Cooperative, No Acute Distress Eye Exam: Positive: PERRLA, EOMI ENT Exam: Positive: Atraumatic, Mucous membr. moist/pink, Pharynx Normal Neck Exam: Positive: Supple, Negative: thyromegaly Chest Exam: Positive: Wheezing (and expiratory wheezing bilaterally), Negative: Rales, Rhonchi Heart Exam: Positive: Rate Normal, Normal S1, Normal S2, Negative: Murmurs, Rubs Abdomen Exam: Positive: Normal bowel sounds, Tenderness (epigastric mild) Extremity Exam: Positive: Other (left lower extremity 4/5 bilaterally) Neuro Exam: Positive: Normal Speech (hoarseness) Psych Exam: Positive: Oriented x 3 Assessment /Plan Plan/VTE VTE Prophylaxis Ordered?: Yes (heparin subcutaneous, compression stockings, sequentials.) Plan (1) Left-sided muscle spasms Status: Acute Problem Text: Both upper and lower extremity. Patient reports muscle weakness in left lower extremity, but this is at his baseline. Unlikely a stroke at this time. Patient has had normal neurological checks and no symptoms at this time. Patient does have persistent weakness and left lower extremity. MRI is ordered of cervical spine and lumbar spine to assess for cause of radiculopathy. Patient needs open MRI and this will be performed Thursday. Monitor patient at this time. (2) COPD with exacerbation Status: Acute Problem Text: Patient has history of COPD and sees Dr. Kimball for pulmonology. Patient also has a history of lobectomy for cancer as well as radiation. Continue patient on steroids but will decrease from 60 mg methylprednisolone IV every 6 to prednisone oral. Patient is on 2 L oxygen as he is at home. (3) History of CVA (cerebrovascular accident) Problem Text: Patient has history of CVA. Will continue patient on aspirin and pravastatin at this time. Monitor clinically (4) Anxiety and depression Problem Text: Continue patient on home medication at this time and monitor clinically. (5) Restless leg syndrome Problem Text: Continue patient on home ropinirole at this time. (6) Diastolic CHF Problem Text: Patient has history of diastolic heart failure per echo from earlier this year. Echo revealed patient has grade 1 diastolic congestive heart failure. We'll continue patient on carvedilol (7) LUCA (obstructive sleep apnea) (8) Fatty liver Problem Text: Patient's LFTs are elevated on labs yesterday. Liver ultrasound was ordered and found to have fatty liver. Patient will follow up on this as outpatient. (9) SOB (shortness of breath) (10) Acute renal failure Status: Acute Problem Text: Patient's creatinine baseline is 1.2-1.3. Patient's creatinine did decrease from yesterday is 1.74 to 1.5. Creatinine is improving, closer to baseline. VS, I&O, 24H, Fishbone Vital Signs/I&O Vital Signs Date Time Temp Pulse Resp B/P (MAP) Pulse Ox O2 Delivery O2 Flow Rate FiO2 07/09/16 08:00 98.0 68 18 141/84 (103) 97 Nasal Cannula 2.0 07/09/16 06:13 96 I&O- Last 24 Hours up to 6 AM 07/09/16 06:00 Intake Total 0 ml Output Total 1050 ml Balance -1050 ml Laboratory Data 24H LABS Laboratory Tests 2 07/08/16 18:28: Neutrophils 62, Lymphocytes (Manual) 24, Monocytes (Manual) 10H, Eosinophils ( Manual) 2, Metamyelocytes 1H, Myelocytes 1H, Platelet Estimate NORMAL, Anion Gap 9, Glomerular Filtration Rate 42.4L, Blood Urea Nitrogen 50H, Creatinine 1.74H, Sodium Level 136, Potassium Level 4.4, Chloride Level 101, Carbon Dioxide Level 26, Calcium Level 9.4, Total Creatine Kinase 97, Aspartate Amino Transf (AST/SGOT) 47H, Alanine Aminotransferase (ALT/SGPT) 104H, Alkaline Phosphatase 103, Total Bilirubin 0.3, Direct Bilirubin < 0.1, Creatine Kinase MB 4.2H, Creatine Kinase MB Relative Index 4.32H, Troponin I < 0.02, B-Type Natriuretic Peptide 36.4, Total Protein 6.7, Albumin 3.4, Albumin/Globulin Ratio 1.03, Thyroid Stimulating Hormone (TSH) 2.430 07/08/16 23:43: Total Creatine Kinase 104, Creatine Kinase MB 3.4, Creatine Kinase MB Relative Index 3.26, Troponin I < 0.02 07/09/16 00:25: Urine Random Creatinine 68.8, Urine Random Sodium 92 07/09/16 05:29: Anion Gap 6L, Glomerular Filtration Rate 48.1L, Blood Urea Nitrogen 51H, Creatinine 1.56H, Sodium Level 133L, Potassium Level 5.1, Chloride Level 102, Carbon Dioxide Level 25, Calcium Level 9.3, Total Creatine Kinase 101, Aspartate Amino Transf (AST/SGOT) 48H, Alanine Aminotransferase (ALT/SGPT) 103H , Alkaline Phosphatase 72, Total Bilirubin 0.4, Creatine Kinase MB 3.4, Creatine Kinase MB Relative Index 3.36, Troponin I < 0.02, Total Protein 7.1, Albumin 3.3, Albumin/Globulin Ratio 0.87L, White Blood Count 11.3H, Red Blood Count 4.60, Hemoglobin 15.0, Hematocrit 45.1, Mean Corpuscular Volume 98.1H, Mean Corpuscular Hemoglobin 32.5, Mean Corpuscular Hemoglobin Concent 33.2, Red Cell Distribution Width 14.2, Platelet Count 196, Neutrophils (%) (Auto) 90.7H, Lymphocytes (%) (Auto) 5.8L, Monocytes (%) (Auto) 2.4, Eosinophils (%) (Auto) 0.4, Basophils (%) (Auto) 0.3, Neutrophils # (Auto) 10.2H, Lymphocytes # (Auto) 0.7L, Monocytes # (Auto) 0.3, Eosinophils # (Auto) 0.0, Basophils # (Auto) 0.0, Large Unclassified Cells % 0.4, Large Unclassified Cells # 0.0, Magnesium Level 2.0 CBC/BMP Laboratory Tests 07/08/16 18:28 Red Blood Count 4.63, Mean Corpuscular Volume 98.7 H, Mean Corpuscular Hemoglobin 33.0, Mean Corpuscular Hemoglobin Concent 33.4, Red Cell Distribution Width 14.1, Calcium Level 9.4, Total Creatine Kinase 97 07/09/16 05:29 Red Blood Count 4.60, Mean Corpuscular Volume 98.1 H, Mean Corpuscular Hemoglobin 32.5, Mean Corpuscular Hemoglobin Concent 33.2, Red Cell Distribution Width 14.2, Calcium Level 9.3, Total Creatine Kinase 101, Neutrophils (%) (Auto) 90.7 H, Lymphocytes (%) (Auto) 5.8 L, Monocytes (%) (Auto ) 2.4, Eosinophils (%) (Auto) 0.4, Basophils (%) (Auto) 0.3, Neutrophils # (Auto ) 10.2 H, Lymphocytes # (Auto) 0.7 L, Monocytes # (Auto) 0.3, Eosinophils # ( Auto) 0.0, Basophils # (Auto) 0.0, Aspartate Amino Transf (AST/SGOT) 48 H, Alanine Aminotransferase (ALT/SGPT) 103 H, Alkaline Phosphatase 72, Total Bilirubin 0.4, Total Protein 7.1, Albumin 3.3 Microbiology Microbiology 07/08/16 Blood Culture, Received Pending 07/08/16 Blood Culture, Received Pending 07/09/16 Gram Stain, Received Pending 07/09/16 Sputum Culture, Received Pending 07/08/16 Influenza Virus Type A Antigen - Final, Complete 07/08/16 Influenza Virus Type B Antigen - Final, Complete 07/08/16 Respiratory Virus Panel (PCR) (NATTY) - Final, Complete GME ATTESTATION GME ATTESTATION My preceptor for this patient encounter was physically present in the building during the encounter and was fully available. As needed, all aspects of the patient interview, examination, medical decision making process, and medical care plan development were reviewed and approved by the preceptor. Preceptor is aware and concurs with the plan as stated in the body of this note and will attest to such by his/her cosignature. DEL ORTIZ DO July 09, 2016 12:12
[2016-07-09] MEDS: IPRATROPIUM 0.5MG/ALBUTEROL 2.5MG INH SOL UD 3ML (DUONEB)(J7620) INH PRN ×2 (14:51→20:35)
[2016-07-09 16:00] VITALS: BP 129/82
[2016-07-09 20:09] VITALS: BP 143/83
[2016-07-09] MEDS: SERTRALINE HCL 25 MG TABLET PO SCH (20:39)
[2016-07-09] MEDS: ACETAMINOPHEN 500 MG TAB PO PRN (21:42)
[2016-07-10] VITALS (9 sets, daily range): BP systolic 108–159; BP diastolic 56–87
[2016-07-10] MEDS: methylPREDNISolone INJ 125 MG/2 ML VIAL (J2930) IV SCH (02:23)
[2016-07-10 06:16] LABS: BASO % 0.1 % (0.0-1.0); EOS % 0.2 % (0.0-3.0); LARGE UNSTAINED CELL # 0.1 K/mm3 (0.0-0.4); LARGE UNSTAINED CELL % 0.6 % (0.0-4.0); LYMPH # 0.6 K/mm3 (1.5-4.5); LYMPH % 3.7 % (24.0-44.0); MEAN CORPUSCULAR HEMOGLOBIN 33.2 pg (27.0-33.0); MEAN CORPUSCULAR HGB CONC 33.8 g/dl (32.0-36.5); MEAN CORPUSCULAR VOLUME 98.3 fl (80.0-96.0); MONO # 0.4 K/mm3 (0.0-0.8); MONO % 2.9 % (0.0-5.0); NEUTROPHILS # 14.3 K/mm3 (1.8-7.7); NEUTROPHILS % 92.4 % (36.0-66.0); PLATELET COUNT, AUTOMATED 200 k/mm3 (150-450); WHITE BLOOD COUNT 15.4 K/mm3 (4.0-10.0)
[2016-07-10 06:20] LABS: ALBUMIN 3.1 GM/DL (3.2-5.2); ALBUMIN/GLOBULIN RATIO 0.82 (1.00-1.93); BILIRUBIN,TOTAL 0.4 MG/DL (0.2-1.0); CALCIUM LEVEL 9.1 MG/DL (8.8-10.2); CREATININE FOR GFR 1.46 MG/DL (0.70-1.30); GLOMERULAR FILTRATION RATE 51.9 (>49); MAGNESIUM LEVEL 2.1 MG/DL (1.8-2.4); POTASSIUM SERUM 4.6 MEQ/L (3.5-5.1); TOTAL PROTEIN 6.9 GM/DL (6.4-8.2)
[2016-07-10] MEDS: TIOTROPIUM INHALER/CAPSULE (SPIRIVA) INH SCH (07:24)
[2016-07-10] MEDS: ADVAIR DISKUS 100/50 INH PWD INH SCH ×2 (07:24→19:59)
[2016-07-10] MEDS: ALBUTEROL 90 MCG/ACT 8GM HFA INHALER INH SCH ×4 (07:24→20:00)
[2016-07-10] MEDS: IPRATROPIUM 0.5MG/ALBUTEROL 2.5MG INH SOL UD 3ML (DUONEB)(J7620) NEB SCH ×5 (08:00→23:48)
[2016-07-10] MEDS ORDERED: predniSONE 20 MG TAB PO SCH (09:00)
[2016-07-10] MEDS ORDERED: ENTER DRUG NAME HERE (PATIENT'S OWN MED) INH SCH (09:00)
[2016-07-10] MEDS: FERROUS SULFATE 325MG TAB PO SCH (09:52)
[2016-07-10] MEDS: rOPINIRole 1MG TAB PO SCH ×2 (09:52→21:05)
[2016-07-10] MEDS: PRAVASTATIN 20 MG TAB PO SCH (09:52)
[2016-07-10] MEDS: ASPIRIN 81 MG ENTERIC TAB PO SCH (09:52)
[2016-07-10] MEDS: OMEPRAZOLE 20 MG CAP PO SCH (09:52)
[2016-07-10] MEDS: CARVedilol 6.25 MG TAB PO SCH ×2 (09:53→20:56)
[2016-07-10] MEDS: ALLOPURINOL 300 MG TAB PO SCH (09:53)
[2016-07-10] MEDS: HEPARIN SOD (PORCINE) 5000 UNITS/ML VIAL SC SCH ×2 (09:53→20:58)
[2016-07-10] MEDS: MAGNESIUM OXIDE 400 MG TAB (MAG-OX) PO SCH (09:54)
[2016-07-10] MEDS: MULTIVITAMINS/MINERALS THERAP 1 TAB PO SCH (09:54)
[2016-07-10] MEDS: IPRATROPIUM 0.5MG/ALBUTEROL 2.5MG INH SOL UD 3ML (DUONEB)(J7620) INH PRN (10:12)
[2016-07-10] MEDS ORDERED: SLF 3 ML SYR IV PRN (12:45)
--- NOTE | 2016-07-10 13:55 | IPNPDOC ---
Subjective Date Seen The patient was seen on 07/10/16. Subjective Chief Complaint/HPI The patient is a 65-year-old male admitted with a reason for visit of SOB. Events since last encounter Patient reports again another episode of spasms. This time involving both his right and left upper extremity. This occurred approximately 9:30 last night. Patient was able to lay on his arm and go to sleep. Did have some spasming in the morning but this quickly resolved. Patient did not have this upon exam. Patient is cleared by PT for ambulation yesterday. He reports no loose stool since yesterday. The Imodium did provide some relief. Also complains of his chronic shortness of breath and he is still on 2 L of oxygen. Patient is still coughing. Occasionally brings things up with his cough. It is productive. Patient still has weakness in left lower extremity. Denies any pins or needles feelings. Constitutional: Denies: Chills, Fever Eyes: Denies: Vision change Pulmonary: Reports: Dyspnea, Cough Cardiovascular: Denies: Chest Pain, Palpitations Gastrointestinal: Denies: Nausea, Vomiting, Abdominal Pain Genitourinary: Denies: Dysuria, Frequency Neurological: Reports: Weakness (left leg weakness), Denies: Numbness Psych: Reports: Mood Normal Objective Physical Examination General Exam: Positive: Alert, Cooperative, No Acute Distress Eye Exam: Positive: PERRLA, EOMI ENT Exam: Positive: Atraumatic, Mucous membr. moist/pink, Pharynx Normal Neck Exam: Positive: Supple, Negative: thyromegaly Chest Exam: Positive: Wheezing (expiratory wheezing bilaterally), Negative: Rales, Rhonchi Heart Exam: Positive: Rate Normal, Normal S1, Normal S2, Negative: Murmurs, Rubs Abdomen Exam: Positive: Normal bowel sounds, Tenderness (epigastric mild) Extremity Exam: Positive: Other (left lower extremity 4/5 bilaterally) Neuro Exam: Positive: Normal Speech (hoarseness) Psych Exam: Positive: Oriented x 3 Assessment /Plan Plan/VTE VTE Prophylaxis Ordered?: Yes (sequentials and stockings and heparin subcutaneous.) Plan (1) Left-sided Spasms of the Extremities Status: Acute Problem Text: Patient still has left lower extremity weakness. On exam weakness is a 4/5 in left lower extremity, 5/5 right lower extremity. This is at patient's baseline. Unlikely a stroke at this time. Patient has had normal neurological checks and no symptoms at this time. Patient did have another episode last night of both upper extremities which resolved. Patient was able to go to sleep after this occurred. MRI is ordered of cervical spine and lumbar spine to assess for cause of radiculopathy. Patient needs open MRI and this will be performed Thursday. Patient still complains of weakness in left lower extremity. Patient was approved by PT for ambulation during the day with a rolling walker and nurse. Encouraging patient to ambulate. Monitor patient at this time. (2) COPD with exacerbation Status: Acute Problem Text: Patient has history of COPD and sees Dr. Kimball for pulmonology. Patient also has a history of lobectomy for cancer as well as radiation. Continue patient on steroids's, 40 mg prednisone by mouth daily. Patient is on 2 L oxygen as he is at home. Still has some shortness of breath with this. Was complaining of some wheezing. Patient is on his home medications of Spiriva, Advair, DuoNeb, albuterol inhaler. Patient's DuoNeb's 4 when necessary previously. Patient was wheezing on exam and had diffuse wheezes to auscultation. Increasing patient's DuoNeb's to every 4 in addition to nebs as needed, for now. Also prescribed patient a a cappella to help with the productive cough. (3) History of CVA (cerebrovascular accident) Problem Text: Patient has history of CVA. Will continue patient on aspirin and pravastatin at this time. Monitor clinically (4) Anxiety and depression Problem Text: Continue patient on home medication at this time and monitor clinically. (5) Restless leg syndrome Problem Text: Continue patient on home ropinirole at this time. (6) Diastolic CHF Problem Text: Patient has history of diastolic heart failure per echo from earlier this year. Echo revealed patient has grade 1 diastolic congestive heart failure. We'll continue patient on carvedilol (7) LUCA (obstructive sleep apnea) Problem Text: Continue use of patient's home device. (8) Fatty liver Problem Text: Patient's LFTs are elevated on labs yesterday. Liver ultrasound was ordered and found to have fatty liver. Patient will follow up on this as outpatient. (9) Acute renal failure Status: Acute Problem Text: Patient's creatinine baseline is 1.2-1.3. Patient's creatinine did decrease from yesterday is 1.5 to 1.46. Creatinine is improving, closer to baseline. VS, I&O, 24H, [facility] Vital Signs/I&O Vital Signs Date Time Temp Pulse Resp B/P (MAP) Pulse Ox O2 Delivery O2 Flow Rate FiO2 07/10/16 12:10 96.9 86 18 127/58 (81) 95 Nasal Cannula 2.0 07/09/16 20:00 98 I&O- Last 24 Hours up to 6 AM 07/10/16 06:00 Intake Total 2160 ml Output Total 3100 ml Balance -940 ml Laboratory Data 24H LABS Laboratory Tests 2 07/10/16 05:23: White Blood Count 15.4H, Red Blood Count 4.54, Hemoglobin 15.0, Hematocrit 44.6 , Mean Corpuscular Volume 98.3H, Mean Corpuscular Hemoglobin 33.2H, Mean Corpuscular Hemoglobin Concent 33.8, Red Cell Distribution Width 14.0, Platelet Count 200, Neutrophils (%) (Auto) 92.4H, Lymphocytes (%) (Auto) 3.7L, Monocytes (%) (Auto) 2.9, Eosinophils (%) (Auto) 0.2, Basophils (%) (Auto) 0.1, Neutrophils # (Auto) 14.3H, Lymphocytes # (Auto) 0.6L, Monocytes # (Auto) 0.4, Eosinophils # (Auto) 0.0, Basophils # (Auto) 0.0, Large Unclassified Cells % 0.6 , Large Unclassified Cells # 0.1, Anion Gap 11, Glomerular Filtration Rate 51.9 , Blood Urea Nitrogen 53H, Creatinine 1.46H, Sodium Level 133L, Potassium Level 4.6, Chloride Level 99, Carbon Dioxide Level 23, Calcium Level 9.1, Aspartate Amino Transf (AST/SGOT) 41H, Alanine Aminotransferase (ALT/SGPT) 100H, Alkaline Phosphatase 69, Total Bilirubin 0.4, Total Protein 6.9, Albumin 3.1L, Magnesium Level 2.1, Albumin/Globulin Ratio 0.82L CBC/BMP Laboratory Tests 07/10/16 05:23 Red Blood Count 4.54, Mean Corpuscular Volume 98.3 H, Mean Corpuscular Hemoglobin 33.2 H, Mean Corpuscular Hemoglobin Concent 33.8, Red Cell Distribution Width 14.0, Neutrophils (%) (Auto) 92.4 H, Lymphocytes (%) (Auto) 3.7 L, Monocytes (%) (Auto) 2.9, Eosinophils (%) (Auto) 0.2, Basophils (%) (Auto ) 0.1, Neutrophils # (Auto) 14.3 H, Lymphocytes # (Auto) 0.6 L, Monocytes # ( Auto) 0.4, Eosinophils # (Auto) 0.0, Basophils # (Auto) 0.0, Calcium Level 9.1, Aspartate Amino Transf (AST/SGOT) 41 H, Alanine Aminotransferase (ALT/SGPT) 100 H, Alkaline Phosphatase 69, Total Bilirubin 0.4, Total Protein 6.9, Albumin 3.1 L Microbiology Microbiology 07/08/16 Blood Culture - Preliminary, Resulted No growth after 24 hours . All specim... 07/08/16 Blood Culture - Preliminary, Resulted No growth after 24 hours . All specim... 07/09/16 Gram Stain - Final, Resulted 07/09/16 Sputum Culture, Resulted Pending 07/08/16 Influenza Virus Type A Antigen - Final, Complete 07/08/16 Influenza Virus Type B Antigen - Final, Complete 07/08/16 Respiratory Virus Panel (PCR) (NATTY) - Final, Complete GME ATTESTATION GME ATTESTATION My preceptor for this patient encounter was physically present in the building during the encounter and was fully available. As needed, all aspects of the patient interview, examination, medical decision making process, and medical care plan development were reviewed and approved by the preceptor. Preceptor is aware and concurs with the plan as stated in the body of this note and will attest to such by his/her cosignature. DEL ORTIZ DO Jul 10, 2016 13:55 NGUYEN MOORE MD Jul 10, 2016 14:43
[2016-07-10] MEDS: SLF 3 ML SYR IV SCH ×2 (14:07→20:59)
[2016-07-10] MEDS ORDERED: SODIUM CHLORIDE NASAL 0.65% SPRAY BTL (OCEAN) PRN (15:15)
[2016-07-10] MEDS: SERTRALINE HCL 25 MG TABLET PO SCH (20:58)
[2016-07-11] MEDS: IPRATROPIUM 0.5MG/ALBUTEROL 2.5MG INH SOL UD 3ML (DUONEB)(J7620) NEB SCH ×5 (02:41→20:00)
[2016-07-11] MEDS: SLF 3 ML SYR IV SCH ×3 (05:26→22:00)
[2016-07-11 05:59] LABS: BASO % 0.2 % (0.0-1.0); EOS # 0.1 K/mm3 (0.0-0.50); EOS % 0.6 % (0.0-3.0); LARGE UNSTAINED CELL # 0.1 K/mm3 (0.0-0.4); LARGE UNSTAINED CELL % 0.6 % (0.0-4.0); LYMPH # 0.6 K/mm3 (1.5-4.5); LYMPH % 4.5 % (24.0-44.0); MEAN CORPUSCULAR HEMOGLOBIN 32.9 pg (27.0-33.0); MEAN CORPUSCULAR HGB CONC 33.5 g/dl (32.0-36.5); MEAN CORPUSCULAR VOLUME 98.3 fl (80.0-96.0); MONO # 0.7 K/mm3 (0.0-0.8); NEUTROPHILS # 12.4 K/mm3 (1.8-7.7); PLATELET COUNT, AUTOMATED 168 k/mm3 (150-450); RED CELL DISTRIBUTION WIDTH 13.8 % (11.5-14.5); WHITE BLOOD COUNT 13.9 K/mm3 (4.0-10.0)
[2016-07-11 06:00] VITALS: BP 158/96
[2016-07-11 06:18] LABS: ALBUMIN 3.1 GM/DL (3.2-5.2); ALBUMIN/GLOBULIN RATIO 0.86 (1.00-1.93); ALKALINE PHOSPHATASE 72 U/L (45-117); ALT/SGPT 98 U/L (12-78); ANION GAP 9 MEQ/L (8-16); AST/SGOT 47 U/L (15-37); BILIRUBIN,TOTAL 0.5 MG/DL (0.2-1.0); BLOOD UREA NITROGEN 47 MG/DL (7-18); CALCIUM LEVEL 8.6 MG/DL (8.8-10.2); CARBON DIOXIDE LEVEL 24 MEQ/L (21-32); CHLORIDE LEVEL 100 MEQ/L (98-107); GLOMERULAR FILTRATION RATE 59.4 (>49); GLUCOSE, FASTING 129 MG/DL (80-110); MAGNESIUM LEVEL 2.1 MG/DL (1.8-2.4); POTASSIUM SERUM 4.2 MEQ/L (3.5-5.1); SODIUM LEVEL 133 MEQ/L (136-145); TOTAL PROTEIN 6.7 GM/DL (6.4-8.2)
[2016-07-11] MEDS: ALBUTEROL 90 MCG/ACT 8GM HFA INHALER INH SCH ×2 (07:34→12:00)
[2016-07-11] MEDS: TIOTROPIUM INHALER/CAPSULE (SPIRIVA) INH SCH (07:35)
[2016-07-11] MEDS: ADVAIR DISKUS 100/50 INH PWD INH SCH ×2 (07:35→19:58)
[2016-07-11 07:42] VITALS: O2SAT 91
[2016-07-11] MEDS: IPRATROPIUM 0.5MG/ALBUTEROL 2.5MG INH SOL UD 3ML (DUONEB)(J7620) INH PRN (09:24)
[2016-07-11] MEDS: FERROUS SULFATE 325MG TAB PO SCH (09:34)
[2016-07-11] MEDS: ASPIRIN 81 MG ENTERIC TAB PO SCH (09:34)
[2016-07-11] MEDS: ALLOPURINOL 300 MG TAB PO SCH (09:34)
[2016-07-11] MEDS: HEPARIN SOD (PORCINE) 5000 UNITS/ML VIAL SC SCH ×2 (09:34→20:24)
[2016-07-11] MEDS: PRAVASTATIN 20 MG TAB PO SCH (09:34)
[2016-07-11] MEDS: OMEPRAZOLE 20 MG CAP PO SCH (09:34)
[2016-07-11] MEDS: MAGNESIUM OXIDE 400 MG TAB (MAG-OX) PO SCH (09:34)
[2016-07-11] MEDS: rOPINIRole 1MG TAB PO SCH ×2 (09:34→20:24)
[2016-07-11] MEDS: CARVedilol 6.25 MG TAB PO SCH ×2 (09:34→20:25)
[2016-07-11] MEDS ORDERED: IPRATROPIUM 0.5MG/ALBUTEROL 2.5MG INH SOL UD 3ML (DUONEB)(J7620) INH PRN ×2 (09:35→14:15)
[2016-07-11] MEDS: MULTIVITAMINS/MINERALS THERAP 1 TAB PO SCH (09:35)
[2016-07-11] MEDS: LevoFLOXacin 500 MG TABLET PO SCH (09:47)
[2016-07-11] MEDS: methylPREDNISolone INJ 125 MG/2 ML VIAL (J2930) IV SCH ×2 (09:48→17:00)
[2016-07-11] MEDS: ACETAMINOPHEN 500 MG TAB PO PRN ×2 (09:53→17:00)
[2016-07-11] MEDS ORDERED: ONDANSETRON 4 MG TAB (S0181) PO ONE (10:00)
--- NOTE | 2016-07-11 11:31 | ECGEPIP ---
Stationary ECG Study [facility] Test Date: 2016-07-11 Pat Name: ARIN GUADARRAMA Department: Room: B1404-84 Gender: M Cad Administrator: MENDEL : 1950 Requested By: DEL ORTIZ Order Number: [id number] Reading MD: Hayder Francis Measurements Intervals [place] Rate: 110 P: 75 MI: 150 QRS: -17 QRSD: 91 T: 26 QT: 305 QTc: 413 Interpretive Statements SINUS TACHYCARDIA WITH FREQUENT SUPRAVENTRICULAR PREMATURE COMPLEXES Leftward axis. ABNORMAL RHYTHM ECG Electronically Signed On 07-11-2016 11:31:22 EDT by Hayder Francis
--- NOTE | 2016-07-11 12:01 | IPNPDOC ---
Subjective Date Seen The patient was seen on 07/11/16. Subjective Chief Complaint/HPI The patient is a 65-year-old male admitted with a reason for visit of SOB. Events since last encounter Patient reports having increase in stress of breath and chest tightness. This started when he woke up this morning at approximately 5 AM. Has been constipated until I saw patient's roughly 9:00. Patient denied chest pain and palpitations. Patient was also complaining of some nausea. Was unable to eat much this morning. Did not eat breakfast. No episodes of vomiting. Patient did have some increased low back pain. Patient feels weak and tired overall. Still has a cough which is productive. Constitutional: Reports: Chills, Denies: Fever Eyes: Denies: Vision change ENT: Reports: Head Aches ("top of his head") Pulmonary: Reports: Dyspnea, Cough, Pleuritic Chest Pain (pain with deep breath and cough. This pain was located on his right side.), Other Symptoms ( chest tightness in the middle of his chest.) Cardiovascular: Denies: Chest Pain, Palpitations Gastrointestinal: Reports: Nausea, Denies: Vomiting, Abdominal Pain Genitourinary: Reports: Retention (patient did report having some difficulty urinating in the morning. Patient was able to void first thing.), Denies: Dysuria, Frequency, Incontinence Musculoskeletal: Reports: Back Pain (right low back pain.) Neurological: Reports: Weakness (patient reports feeling weak in both legs.) Psych: Reports: Mood Normal Objective Physical Examination General Exam: Positive: Alert, Cooperative, No Acute Distress Eye Exam: Positive: PERRLA, EOMI ENT Exam: Positive: Atraumatic, Mucous membr. moist/pink, Pharynx Normal Neck Exam: Positive: Supple, Negative: thyromegaly Chest Exam: Positive: Rales, Wheezing (expiratory wheezing bilaterally), Negative: Rhonchi Heart Exam: Positive: Rate Normal, Normal S1, Normal S2, Negative: Murmurs, Rubs Abdomen Exam: Positive: Normal bowel sounds, Tenderness (epigastric mild) Extremity Exam: Positive: Normal pulses, Other (left lower extremity 4/5. Right leg 5 out of 5 muscle strength.), Negative: Edema Neuro Exam: Positive: Normal Speech (hoarseness), Other (no numbness in lower extremity.) Psych Exam: Positive: Oriented x 3 Assessment /Plan Plan/VTE VTE Prophylaxis Ordered?: Yes (heparin subcutaneous, compression stockings, sequentials.) Plan Patient was having some chest tightness this morning since 5 AM. EKG was ordered and showed premature atrial contractions as well as tachycardia, rate 110. Added cardiac markers to morning labs as well as repeats at 11 AM, 6 hours after it started. Morning labs were negative. Repeat cardiac marker panel was also negative. Patient is scheduled to have his open MRI this afternoon. (1) Left-sided muscle spasms Status: Acute Problem Text: Unlikely a stroke at this time. Patient has had normal neurological checks and no symptoms at this time. DC the neuro checks. Patient does have persistent weakness of the left lower extremity. MRI is ordered of cervical spine and lumbar spine to assess for cause of radiculopathy. Patient needs open MRI and this will be performed today 2016. Patient still complains of weakness in left lower extremity. Patient was approved by PT for ambulation during the day with a rolling walker and nurse. Patient uses this at home. Encouraging patient to ambulate. Monitor patient at this time. (2) COPD with exacerbation Status: Acute Problem Text: Patient has history of COPD and sees Dr. Kimball for pulmonology. Patient also has a history of lobectomy for cancer as well as radiation. Switching steroids to IV methylprednisolone 60 mg every 8 hours from oral prednisone. Patient is on 2 L oxygen as he is at home. Still has some shortness of breath and wheezing. Nebulizers do help. Also started patient on EZ pap and he reports that helped with his breathing. Patient is on his home medications of Spiriva, Advair, DuoNeb, albuterol inhaler. Patient's DuoNeb's 4 when necessary previously. Patient was wheezing on exam and had diffuse wheezes to auscultation. Increasing patient's DuoNeb's to every 4 as well as for every 4 hours as needed. Also prescribed patient a a cappella to help with the productive cough. (3) History of CVA (cerebrovascular accident) Problem Text: Patient has history of CVA. Will continue patient on aspirin and pravastatin at this time. Monitor clinically (4) Anxiety and depression Problem Text: Continue patient on home medication at this time and monitor clinically. (5) Restless leg syndrome Problem Text: Continue patient on home ropinirole at this time. (6) Diastolic CHF Problem Text: Patient has history of diastolic heart failure per echo from earlier this year. Echo revealed patient has grade 1 diastolic congestive heart failure. We'll continue patient on carvedilol (7) LUCA (obstructive sleep apnea) Problem Text: Continue use of patient's home device. (8) Fatty liver Problem Text: Patient's LFTs are elevated on labs yesterday. Liver ultrasound was ordered and found to have fatty liver. Patient will follow up on this as outpatient. (9) Acute renal failure Status: Acute Problem Text: Patient's creatinine baseline is 1.2-1.3. Patient's creatinine did decrease to 1.3 and is back to baseline. Continue to monitor as needed. VS, I&O, 24H, [facility] Vital Signs/I&O Vital Signs Date Time Temp Pulse Resp B/P (MAP) Pulse Ox O2 Delivery O2 Flow Rate FiO2 07/11/16 09:34 63 108/62 07/11/16 07:42 91 Nasal Cannula 2.0 07/11/16 06:00 97.4 18 07/09/16 20:00 98 I&O- Last 24 Hours up to 6 AM 07/11/16 06:00 Intake Total 3150 ml Output Total 6075 ml Balance -2925 ml Laboratory Data 24H LABS Laboratory Tests 2 07/11/16 05:37: White Blood Count 13.9H, Red Blood Count 4.65, Hemoglobin 15.3, Hematocrit 45.8 , Mean Corpuscular Volume 98.3H, Mean Corpuscular Hemoglobin 32.9, Mean Corpuscular Hemoglobin Concent 33.5, Red Cell Distribution Width 13.8, Platelet Count 168, Neutrophils (%) (Auto) 89.0H, Lymphocytes (%) (Auto) 4.5L, Monocytes (%) (Auto) 5.0, Eosinophils (%) (Auto) 0.6, Basophils (%) (Auto) 0.2, Neutrophils # (Auto) 12.4H, Lymphocytes # (Auto) 0.6L, Monocytes # (Auto) 0.7, Eosinophils # (Auto) 0.1, Basophils # (Auto) 0.0, Large Unclassified Cells % 0.6 , Large Unclassified Cells # 0.1, Anion Gap 9, Glomerular Filtration Rate 59.4, Blood Urea Nitrogen 47H, Creatinine 1.30, Sodium Level 133L, Potassium Level 4.2 , Chloride Level 100, Carbon Dioxide Level 24, Calcium Level 8.6L, Aspartate Amino Transf (AST/SGOT) 47H, Alanine Aminotransferase (ALT/SGPT) 98H, Total Creatine Kinase 64, Alkaline Phosphatase 72, Total Bilirubin 0.5, Total Protein 6.7, Albumin 3.1L, Magnesium Level 2.1, Creatine Kinase MB 3.3, Creatine Kinase MB Relative Index 5.15H, Troponin I < 0.02, Albumin/Globulin Ratio 0.86L 07/11/16 06:51: Bedside Glucose (Misc Panel) 172H 07/11/16 11:04: CBC/BMP Laboratory Tests 07/11/16 05:37 Red Blood Count 4.65, Mean Corpuscular Volume 98.3 H, Mean Corpuscular Hemoglobin 32.9, Mean Corpuscular Hemoglobin Concent 33.5, Red Cell Distribution Width 13.8, Neutrophils (%) (Auto) 89.0 H, Lymphocytes (%) (Auto) 4.5 L, Monocytes (%) (Auto) 5.0, Eosinophils (%) (Auto) 0.6, Basophils (%) (Auto ) 0.2, Neutrophils # (Auto) 12.4 H, Lymphocytes # (Auto) 0.6 L, Monocytes # ( Auto) 0.7, Eosinophils # (Auto) 0.1, Basophils # (Auto) 0.0, Calcium Level 8.6 L , Aspartate Amino Transf (AST/SGOT) 47 H, Alanine Aminotransferase (ALT/SGPT) 98 H, Total Creatine Kinase 64, Alkaline Phosphatase 72, Total Bilirubin 0.5, Total Protein 6.7, Albumin 3.1 L Microbiology Microbiology 07/08/16 Blood Culture - Preliminary, Resulted No Growth after 48 hours. All Specime... 07/08/16 Blood Culture - Preliminary, Resulted No Growth after 48 hours. All Specime... 07/09/16 Gram Stain - Final, Resulted 07/09/16 Sputum Culture - Preliminary, Resulted Pseudomonas Aeruginosa 07/08/16 Influenza Virus Type A Antigen - Final, Complete 07/08/16 Influenza Virus Type B Antigen - Final, Complete 07/08/16 Respiratory Virus Panel (PCR) (NATTY) - Final, Complete GME ATTESTATION GME ATTESTATION My preceptor for this patient encounter was Dr. Guerrero and he was physically present in the building during the encounter and was fully available. As needed , all aspects of the patient interview, examination, medical decision making process, and medical care plan development were reviewed and approved by the preceptor. Preceptor is aware and concurs with the plan as stated in the body of this note and will attest to such by his/her cosignature. DEL ORTIZ DO Jul 11, 2016 11:51
[2016-07-11 14:00] VITALS: BP 102/64
--- NOTE | 2016-07-11 14:20 | REP ---
MR CERVICAL SPINE WITHOUT CONTRAST: HISTORY: Upper extremity weakness. A disc bulge is present at the C2-3 level. There is minimal effacement of the thecal sac without spinal cord compression. The C2 neural foramina are patent. A disc bulge is present at the C3-4 level. There is mild effacement of the thecal sac without spinal cord compression. Bilateral uncinate process hypertrophy is present. This produces minimal narrowing of the C3 neural foramina. A disc bulge with associated osteophyte formation is present at the C4-5 level. There is minimal spinal cord compression. Bilateral uncinate process hypertrophy is present. This produces mild and moderate narrowing of the right and left C4 neural foramina respectfully. A disc bulge with associated osteophyte formation is present at the C5-6 level. There is a minimal spinal cord compression. Bilateral uncinate process hypertrophy is present. This produces moderate narrowing of the C5 neural foramina. A disc bulge with associated osteophyte formation is present at the C6-7 level. There is moderate effacement of the thecal sac without spinal cord compression. Bilateral uncinate process hypertrophy is present. This produces moderate and minimal narrowing of the right and left C6 neural foramina respectfully. A disc bulge is present at the C7-T1 level. There is minimal effacement of the thecal sac without spinal cord compression. The C7 neural foramina are patent. Disc bulges are present at the T1-2 and T2-3 levels. There is minimal effacement of the thecal sac without spinal cord compression. The neural foramen are patent on sagittal images. There is no other disc bulge or herniation. The remaining neural foramina are patent. The spinal cord is normal in signal intensity. The C3-4 through C7-T1 intervertebral discs are decreased in height consistent with disc degeneration. Normal signal intensity is present in the cervical vertebral bodies. 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 Signed by Jonh Herrera MD 07/11/2016 02:24 P
--- NOTE | 2016-07-11 14:35 | REP ---
MR LUMBAR SPINE WITHOUT CONTRAST: HISTORY: Lower extremity weakness. Decreased signal intensity on T2-weighted images is present in the lumbar intervertebral discs. The discs are decreased in height. These findings are consistent with disc degeneration. Diffuse disc bulge is present at the L1-2 level. There is an increase in the amount of epidural fat. There is minimal compression at the thecal sac. There is hypertrophy of the posterior articulating facets. The L1 nerves exit the neural foramina without compression. A diffuse disc bugle and small right paracentral and intraforaminal disc protrusion are present at the L2-3 level. There is an increase in the amount of epidural fat. There is minimal compression of the thecal sac and right L3 nerve as it exits the thecal sac. There is hypertrophy of the posterior articulating facets. The L2 nerves exit the neural foramina without compression. A diffuse disc bugle is present at the L3-4 level. There is an increase in the amount of epidural fat. There is minimal compression of the thecal sac. There is hypertrophy of the posterior articulating facets. The L3 nerves exit the neural foramina without compression. A diffuse disc bulge is present at the L4-5 level. There is an increase in the amount of epidural fat. There is minimal compression of the thecal sac. There is hypertrophy of the posterior articulating facets. There is compression of the L4 nerves in the neural foramina. A diffuse disc bulge is present at the L5-S1 level. There is an increase in the amount of epidural fat. There is minimal compression of the thecal sac. There is hypertrophy of the posterior articulating facets. The L5 nerves exit the neural foramina without compression. There is partial sacralization of the L5 vertebral body. The conus medullaris is normal in appearance terminating at the level of the T12-L1 intervertebral disc. Normal signal intensity is present in the lumbar vertebral bodies. IMPRESSION: Diffuse disc bulges and epidural lipomatosis at the L1-2 and L3-4 through L5-S1 levels with minimal thecal sac compression. Diffuse disc bulge , small central disc protrusion and epidural lipomatosis at the L2-3 level with minimal thecal sac compression. Signed by Jonh Herrera MD 07/11/2016 02:42 P
[2016-07-11] MEDS: SERTRALINE HCL 25 MG TABLET PO SCH (20:24)
[2016-07-11 22:00] VITALS: BP 144/73
[2016-07-12] MEDS: IPRATROPIUM 0.5MG/ALBUTEROL 2.5MG INH SOL UD 3ML (DUONEB)(J7620) NEB SCH ×6 (00:07→20:00)
[2016-07-12 00:19] LABS: ORGANISM ID Not indicated. (.); SPECIMEN SOURCE Urine (.)
[2016-07-12] MEDS: methylPREDNISolone INJ 125 MG/2 ML VIAL (J2930) IV SCH ×3 (02:31→17:32)
[2016-07-12] MEDS: ACETAMINOPHEN 500 MG TAB PO PRN ×3 (04:20→20:39)
[2016-07-12] MEDS: LevoFLOXacin 500 MG TABLET PO SCH (05:13)
[2016-07-12] MEDS: SLF 3 ML SYR IV SCH ×3 (05:17→20:42)
[2016-07-12 05:42] LABS: EOS % 0.1 % (0.0-3.0); LARGE UNSTAINED CELL # 0.1 K/mm3 (0.0-0.4); LARGE UNSTAINED CELL % 0.3 % (0.0-4.0); LYMPH # 0.6 K/mm3 (1.5-4.5); LYMPH % 2.6 % (24.0-44.0); MEAN CORPUSCULAR HEMOGLOBIN 32.7 pg (27.0-33.0); MEAN CORPUSCULAR HGB CONC 33.4 g/dl (32.0-36.5); MEAN CORPUSCULAR VOLUME 97.9 fl (80.0-96.0); MONO # 0.6 K/mm3 (0.0-0.8); MONO % 2.7 % (0.0-5.0); NEUTROPHILS # 19.9 K/mm3 (1.8-7.7); NEUTROPHILS % 94.2 % (36.0-66.0); PLATELET COUNT, AUTOMATED 150 k/mm3 (150-450); RED CELL DISTRIBUTION WIDTH 14.1 % (11.5-14.5); WHITE BLOOD COUNT 21.2 K/mm3 (4.0-10.0)
[2016-07-12 06:00] VITALS: BP 122/71
[2016-07-12 06:06] LABS: ALBUMIN 2.8 GM/DL (3.2-5.2); ALBUMIN/GLOBULIN RATIO 0.8 (1.00-1.93); BILIRUBIN,TOTAL 0.5 MG/DL (0.2-1.0); CALCIUM LEVEL 8.5 MG/DL (8.8-10.2); CREATININE FOR GFR 1.47 MG/DL (0.70-1.30); GLOMERULAR FILTRATION RATE 51.5 (>49); MAGNESIUM LEVEL 2.4 MG/DL (1.8-2.4); POTASSIUM SERUM 4.6 MEQ/L (3.5-5.1); TOTAL PROTEIN 6.3 GM/DL (6.4-8.2)
[2016-07-12] MEDS: ADVAIR DISKUS 100/50 INH PWD INH SCH ×2 (07:19→20:21)
[2016-07-12] MEDS: TIOTROPIUM INHALER/CAPSULE (SPIRIVA) INH SCH (07:19)
[2016-07-12] MEDS: guaiFENesin 200 MG TAB PO SCH ×4 (09:00→20:41)
[2016-07-12 09:15] VITALS: BP 156/91
[2016-07-12] MEDS: rOPINIRole 1MG TAB PO SCH ×2 (09:42→20:41)
[2016-07-12] MEDS: FERROUS SULFATE 325MG TAB PO SCH (09:42)
[2016-07-12] MEDS: HEPARIN SOD (PORCINE) 5000 UNITS/ML VIAL SC SCH ×2 (09:42→20:42)
[2016-07-12] MEDS: MULTIVITAMINS/MINERALS THERAP 1 TAB PO SCH (09:43)
[2016-07-12] MEDS: MAGNESIUM OXIDE 400 MG TAB (MAG-OX) PO SCH (09:43)
[2016-07-12] MEDS: ASPIRIN 81 MG ENTERIC TAB PO SCH (09:43)
[2016-07-12] MEDS: ALLOPURINOL 300 MG TAB PO SCH (09:43)
[2016-07-12] MEDS: CARVedilol 6.25 MG TAB PO SCH ×2 (09:43→20:40)
[2016-07-12] MEDS: OMEPRAZOLE 20 MG CAP PO SCH (09:43)
[2016-07-12] MEDS: PRAVASTATIN 20 MG TAB PO SCH (09:43)
[2016-07-12 10:00] VITALS: BP 156/91
--- NOTE | 2016-07-12 13:24 | IPNPDOC ---
Subjective Date Seen The patient was seen on 07/12/16. Subjective Chief Complaint/HPI The patient is a 65-year-old male admitted with a reason for visit of SOB. Events since last encounter Patient reports still feeling weak and tired overall. But feeling slightly better than yesterday. Still has some chest discomfort in the left chest. Denies any nausea today. Tylenol has been helping for back pain. Constitutional: Denies: Chills, Fever Eyes: Denies: Vision change ENT: Denies: Head Aches Pulmonary: Reports: Dyspnea, Cough (productive) Cardiovascular: Reports: Other Symptoms (chest discomfort in the lower chest. Similar to yesterday.), Denies: Chest Pain, Palpitations Gastrointestinal: Denies: Nausea, Vomiting, Abdominal Pain Genitourinary: Denies: Dysuria, Frequency Musculoskeletal: Reports: Back Pain (back pain 10 today.) Neurological: Reports: Weakness (weakness in left leg and weak overall.), Denies: Numbness Psych: Reports: Mood Normal Objective Physical Examination General Exam: Positive: Alert, Cooperative, No Acute Distress ENT Exam: Positive: Atraumatic, Mucous membr. moist/pink, Pharynx Normal Neck Exam: Positive: Supple, Negative: thyromegaly Chest Exam: Positive: Wheezing (expiratory wheezing bilaterally), Negative: Rhonchi Heart Exam: Positive: Rate Normal, Normal S1, Normal S2, Negative: Murmurs, Rubs Abdomen Exam: Positive: Normal bowel sounds Extremity Exam: Positive: Normal pulses, Other (left lower extremity 4/5. Right leg 5 out of 5 muscle strength.), Negative: Edema Neuro Exam: Positive: Other (no numbness in lower extremity.) Assessment /Plan Plan/VTE VTE Prophylaxis Ordered?: Yes (heparin subcutaneous, compression stockings, sequentials.) Plan (1) Left-sided muscle spasms Status: Acute Problem Text: Unlikely a stroke at this time. Patient has had normal neurological checks and no symptoms at this time. Patient does have persistent weakness and left lower extremity. 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 MRI of lumbar spine on 07/11/2016 showed Diffuse disc bulges and epidural lipomatosis at the L1-2 and L3-4 through L5-S1 levels with minimal thecal sac compression. Diffuse disc bulge , small central disc protrusion and epidural lipomatosis at the L2-3 level with minimal thecal sac compression. Patient still complains of weakness in left lower extremity. Patient was approved by PT for ambulation during the day with a rolling walker and nurse. Encouraging patient to ambulate. At this time no significant acute pathology was noted on these MRIs. Monitor patient at this time. Patient will need outpatient follow-up for these spasms. (2) COPD with exacerbation Status: Acute Problem Text: Patient has history of COPD and sees Dr. Kimball for pulmonology. Patient also has a history of lobectomy for cancer as well as radiation. Continue patient on IV steroids at this time. 60 mg every 8 hours. Patient is on 2 L oxygen as he is at home. Still has some shortness of breath with this. Was complaining of some wheezing. Patient is on his home medications of Spiriva, Advair, DuoNeb. Patient's DuoNeb's 4 when necessary previously. Patient was wheezing on exam and had diffuse wheezes to auscultation. Increasing patient's DuoNeb's to every 4 hours and every 2 hours as needed. Stop the patient's inhaler at this time since he is receiving nebulizers. Also prescribed patient a a cappella to help with the productive cough. Prescribing patient Mucinex today to help with the productive cough. Discussed with patient and family yesterday the possibility of moving to a more long-term care facility. Patient repeatedly returns the hospital with infections and has been in the hospital frequently over the last year. (3) History of CVA (cerebrovascular accident) Problem Text: Patient has history of CVA. Will continue patient on aspirin and pravastatin at this time. Monitor clinically (4) Anxiety and depression Problem Text: Continue patient on home medication at this time and monitor clinically. (5) Restless leg syndrome Problem Text: Continue patient on home ropinirole at this time. (6) Diastolic CHF Problem Text: Patient has history of diastolic heart failure per echo from earlier this year. Echo revealed patient has grade 1 diastolic congestive heart failure. We'll continue patient on carvedilol (7) LUCA (obstructive sleep apnea) Problem Text: Continue use of patient's home device. (8) Fatty liver Problem Text: Patient's LFTs are elevated on labs yesterday. Liver ultrasound was ordered and found to have fatty liver. Patient will follow up on this as outpatient. (9) Acute renal failure Status: Acute Problem Text: Patient's creatinine baseline is 1.2-1.3. Patient's creatinine today is at 1.47. Continue to monitor as needed. Repeat labs in the morning. VS, I&O, 24H, Fishbone Vital Signs/I&O Vital Signs Date Time Temp Pulse Resp B/P (MAP) Pulse Ox O2 Delivery O2 Flow Rate FiO2 07/12/16 12:16 Nasal Cannula 2.0 27 07/12/16 10:00 97.4 84 20 156/91 94 I&O- Last 24 Hours up to 6 AM 07/12/16 05:59 Intake Total 2040 ml Output Total 3150 ml Balance -1110 ml Laboratory Data 24H LABS Laboratory Tests 2 07/12/16 05:13: White Blood Count 21.2H, Red Blood Count 4.30, Hemoglobin 14.1, Hematocrit 42.1 , Mean Corpuscular Volume 97.9H, Mean Corpuscular Hemoglobin 32.7, Mean Corpuscular Hemoglobin Concent 33.4, Red Cell Distribution Width 14.1, Platelet Count 150, Neutrophils (%) (Auto) 94.2H, Lymphocytes (%) (Auto) 2.6L, Monocytes (%) (Auto) 2.7, Eosinophils (%) (Auto) 0.1, Basophils (%) (Auto) 0.0, Neutrophils # (Auto) 19.9H, Lymphocytes # (Auto) 0.6L, Monocytes # (Auto) 0.6, Eosinophils # (Auto) 0.0, Basophils # (Auto) 0.0, Large Unclassified Cells % 0.3 , Large Unclassified Cells # 0.1, Anion Gap 9, Glomerular Filtration Rate 51.5, Blood Urea Nitrogen 49H, Creatinine 1.47H, Sodium Level 136, Potassium Level 4.6 , Chloride Level 99, Carbon Dioxide Level 28, Calcium Level 8.5L, Aspartate Amino Transf (AST/SGOT) 44H, Alanine Aminotransferase (ALT/SGPT) 114H, Alkaline Phosphatase 62, Total Bilirubin 0.5, Total Protein 6.3L, Albumin 2.8L, Magnesium Level 2.4, Albumin/Globulin Ratio 0.80L CBC/BMP Laboratory Tests 07/12/16 05:13 Red Blood Count 4.30, Mean Corpuscular Volume 97.9 H, Mean Corpuscular Hemoglobin 32.7, Mean Corpuscular Hemoglobin Concent 33.4, Red Cell Distribution Width 14.1, Neutrophils (%) (Auto) 94.2 H, Lymphocytes (%) (Auto) 2.6 L, Monocytes (%) (Auto) 2.7, Eosinophils (%) (Auto) 0.1, Basophils (%) (Auto ) 0.0, Neutrophils # (Auto) 19.9 H, Lymphocytes # (Auto) 0.6 L, Monocytes # ( Auto) 0.6, Eosinophils # (Auto) 0.0, Basophils # (Auto) 0.0, Calcium Level 8.5 L , Aspartate Amino Transf (AST/SGOT) 44 H, Alanine Aminotransferase (ALT/SGPT) 114 H, Alkaline Phosphatase 62, Total Bilirubin 0.5, Total Protein 6.3 L, Albumin 2.8 L Microbiology Microbiology 07/08/16 Blood Culture - Preliminary, Resulted No Growth after 72 hours. All specime... 07/08/16 Blood Culture - Preliminary, Resulted No Growth after 72 hours. All specime... 07/09/16 Gram Stain - Final, Resulted 07/09/16 Sputum Culture - Preliminary, Resulted Pseudomonas Aeruginosa 07/08/16 Influenza Virus Type A Antigen - Final, Complete 07/08/16 Influenza Virus Type B Antigen - Final, Complete 07/08/16 Respiratory Virus Panel (PCR) (NATTY) - Final, Complete GME ATTESTATION GME ATTESTATION My preceptor for this patient encounter was Dr. Guerrero and he was physically present in the building during the encounter and was fully available. As needed , all aspects of the patient interview, examination, medical decision making process, and medical care plan development were reviewed and approved by the preceptor. Preceptor is aware and concurs with the plan as stated in the body of this note and will attest to such by his/her cosignature. DEL ORTIZ DO Jul 12, 2016 13:17
[2016-07-12 14:00] VITALS: BP 116/72
[2016-07-12] MEDS: SERTRALINE HCL 25 MG TABLET PO SCH (20:39)
[2016-07-12 22:00] VITALS: BP 132/83
[2016-07-13] MEDS: IPRATROPIUM 0.5MG/ALBUTEROL 2.5MG INH SOL UD 3ML (DUONEB)(J7620) NEB SCH ×7 (00:29→23:42)
[2016-07-13] MEDS: guaiFENesin 200 MG TAB PO SCH ×6 (01:17→20:59)
[2016-07-13] MEDS: methylPREDNISolone INJ 125 MG/2 ML VIAL (J2930) IV SCH ×3 (01:17→18:30)
[2016-07-13] MEDS: CALCIUM CARBONATE 500 MG CHEW U/D PO PRN (01:58)
[2016-07-13] MEDS: ACETAMINOPHEN 500 MG TAB PO PRN (04:14)
[2016-07-13] MEDS: LevoFLOXacin 500 MG TABLET PO SCH (05:27)
[2016-07-13] MEDS: SLF 3 ML SYR IV SCH ×3 (05:28→21:00)
[2016-07-13 05:50] LABS: BASO % 0.1 % (0.0-1.0); EOS # 0.1 K/mm3 (0.0-0.50); EOS % 0.4 % (0.0-3.0); LARGE UNSTAINED CELL # 0.1 K/mm3 (0.0-0.4); LARGE UNSTAINED CELL % 0.3 % (0.0-4.0); LYMPH # 0.6 K/mm3 (1.5-4.5); LYMPH % 2.9 % (24.0-44.0); MEAN CORPUSCULAR HEMOGLOBIN 32.8 pg (27.0-33.0); MEAN CORPUSCULAR HGB CONC 33.8 g/dl (32.0-36.5); MEAN CORPUSCULAR VOLUME 97.2 fl (80.0-96.0); MONO # 0.4 K/mm3 (0.0-0.8); MONO % 2.4 % (0.0-5.0); NEUTROPHILS # 15.9 K/mm3 (1.8-7.7); NEUTROPHILS % 93.9 % (36.0-66.0); PLATELET COUNT, AUTOMATED 150 k/mm3 (150-450); RED CELL DISTRIBUTION WIDTH 14.2 % (11.5-14.5)
[2016-07-13 06:00] VITALS: BP 146/77
[2016-07-13 06:04] LABS: ALBUMIN 2.8 GM/DL (3.2-5.2); ALBUMIN/GLOBULIN RATIO 0.78 (1.00-1.93); BILIRUBIN,TOTAL 0.5 MG/DL (0.2-1.0); CALCIUM LEVEL 8.9 MG/DL (8.8-10.2); CREATININE FOR GFR 1.35 MG/DL (0.70-1.30); GLOMERULAR FILTRATION RATE 56.8 (>49); MAGNESIUM LEVEL 2.4 MG/DL (1.8-2.4); POTASSIUM SERUM 4.3 MEQ/L (3.5-5.1); TOTAL PROTEIN 6.4 GM/DL (6.4-8.2)
[2016-07-13] MEDS: TIOTROPIUM INHALER/CAPSULE (SPIRIVA) INH SCH (07:54)
[2016-07-13] MEDS: ADVAIR DISKUS 100/50 INH PWD INH SCH ×2 (07:55→20:05)
[2016-07-13] MEDS: HEPARIN SOD (PORCINE) 5000 UNITS/ML VIAL SC SCH ×2 (09:56→21:00)
[2016-07-13] MEDS: CARVedilol 6.25 MG TAB PO SCH ×2 (09:56→21:00)
[2016-07-13] MEDS: MULTIVITAMINS/MINERALS THERAP 1 TAB PO SCH (09:57)
[2016-07-13] MEDS: FERROUS SULFATE 325MG TAB PO SCH (09:57)
[2016-07-13] MEDS: MAGNESIUM OXIDE 400 MG TAB (MAG-OX) PO SCH (09:57)
[2016-07-13] MEDS: ALLOPURINOL 300 MG TAB PO SCH (09:57)
[2016-07-13] MEDS: OMEPRAZOLE 20 MG CAP PO SCH (09:57)
[2016-07-13] MEDS: ASPIRIN 81 MG ENTERIC TAB PO SCH (09:57)
[2016-07-13] MEDS: rOPINIRole 1MG TAB PO SCH ×2 (09:57→20:59)
[2016-07-13] MEDS: PRAVASTATIN 20 MG TAB PO SCH (09:57)
--- NOTE | 2016-07-13 12:07 | IPNPDOC ---
Subjective Date Seen The patient was seen on 07/13/16. Subjective Chief Complaint/HPI The patient is a 65-year-old male admitted with a reason for visit of SOB. General: Denies: Chills, Night Sweats Constitutional: Denies: Chills, Fever Eyes: Denies: Pain, Vision change ENT: Denies: Head Aches, Ear Pain Skin: Denies: Rash, Lesions Pulmonary: Reports: Dyspnea, Cough Cardiovascular: Denies: Chest Pain, Palpitations Gastrointestinal: Denies: Nausea, Vomiting Genitourinary: Denies: Dysuria, Frequency Hematologic: Denies: Bruising, Bleeding Excessively Objective Physical Examination General Exam: Positive: Alert, Cooperative, No Acute Distress ENT Exam: Positive: Atraumatic, Mucous membr. moist/pink, Pharynx Normal Neck Exam: Positive: Supple, Negative: JVD, thyromegaly Chest Exam: Positive: Clear to auscultation, Diminished, Other (Respiratory wheeze has cleared up ), Negative: Rhonchi Heart Exam: Positive: Rate Normal, Normal S1, Normal S2, Negative: Murmurs, Rubs Abdomen Exam: Positive: Normal bowel sounds, Soft, Negative: Tenderness Extremity Exam: Positive: Normal pulses, Other (left lower extremity 4/5. Right leg 5 out of 5 muscle strength.), Negative: Edema Neuro Exam: Positive: Other (no numbness in lower extremity.) Assessment /Plan Plan/VTE VTE Prophylaxis Ordered?: Yes (heparin subcutaneous, compression stockings, sequentials.) Plan COPD with exacerbation Sees Dr. Kimball for pulmonology as an outpatient Has a history of lobectomy for cancer as well as radiation. CXR with no acute findings Sputum Culture + for Pseudomonas-->On Levaquin Continue patient on IV steroids at this time. 60 mg every 8 hours. Continue Spiriva, Advair, DuoNeb. Patient's respiratory status has improved today, however we will taper his steroids slowly as he did have an exacerbation when they were tapered back yesterday Left Upper and Lower Extremity Muscle Spasms, resolved No acute focal neurological deficits observed on exam compared to baseline MRI of cervical spine on 07/11/2016 showed There is cervical spondylolysis at the C2-3 through C7-T1 levels, most significant at the C4-5 and C5-6 levels where there is minimal spinal cord compression. MRI of lumbar spine on 07/11/2016 showed Diffuse disc bulges and epidural lipomatosis at the L1-2 and L3-4 through L5-S1 levels with minimal thecal sac compression. I have advised the patient to follow up with Spinal Surgery as an outpatient if the patient has these symptoms again in the future History of CVA (cerebrovascular accident) Continue aspirin and pravastatin Anxiety and depression Cont Zoloft, Hydroxyzine prn Restless leg syndrome Continue ropinirole Diastolic CHF Appears Euvolemic at this time Echo revealed patient has grade 1 diastolic congestive heart failure. Not on any diuretics We'll continue patient on carvedilol LUCA (obstructive sleep apnea) Continue use of patient's home device. Fatty liver Labs notable for transaminitis Liver ultrasound was ordered and found to have fatty liver. Patient will follow up on this as outpatient. Chronic Kidney Disease Serum Cr at Baseline DVT Prophylaxis Heparin SC Disposition-the patient's multiple admissions/ER visits to the hospital over the last 3 months, I have discussed alternative options with the patient and his daughters at the bedside. At this time, the patient would like to see his eligibility for possible home care in an effort to prevent frequent ER visits and hospitalizations. I will discuss this with our PFS staff in the a.m. VS, I&O, 24H, Fishbone Vital Signs/I&O Vital Signs Date Time Temp Pulse Resp B/P (MAP) Pulse Ox O2 Delivery O2 Flow Rate FiO2 07/13/16 09:56 80 144/96 07/13/16 09:55 Nasal Cannula 2.0 07/13/16 06:00 98.0 20 96 07/12/16 12:16 27 I&O- Last 24 Hours up to 6 AM 07/13/16 06:00 Intake Total 3060 ml Output Total 4075 ml Balance -1015 ml Laboratory Data 24H LABS Laboratory Tests 2 07/13/16 01:47: Troponin I < 0.02 07/13/16 05:34: White Blood Count 17.0H, Red Blood Count 4.28L, Hemoglobin 14.0, Hematocrit 41.5L, Mean Corpuscular Volume 97.2H, Mean Corpuscular Hemoglobin 32.8, Mean Corpuscular Hemoglobin Concent 33.8, Red Cell Distribution Width 14.2, Platelet Count 150, Neutrophils (%) (Auto) 93.9H, Lymphocytes (%) (Auto) 2.9L, Monocytes (%) (Auto) 2.4, Eosinophils (%) (Auto) 0.4, Basophils (%) (Auto) 0.1, Neutrophils # (Auto) 15.9H, Lymphocytes # (Auto) 0.6L, Monocytes # (Auto) 0.4, Eosinophils # (Auto) 0.1, Basophils # (Auto) 0.0, Large Unclassified Cells % 0.3 , Large Unclassified Cells # 0.1, Anion Gap 7L, Glomerular Filtration Rate 56.8 , Blood Urea Nitrogen 41H, Creatinine 1.35H, Sodium Level 133L, Potassium Level 4.3, Chloride Level 98, Carbon Dioxide Level 28, Calcium Level 8.9, Aspartate Amino Transf (AST/SGOT) 35, Alanine Aminotransferase (ALT/SGPT) 113H, Alkaline Phosphatase 68, Total Bilirubin 0.5, Total Protein 6.4, Albumin 2.8L, Magnesium Level 2.4, Albumin/Globulin Ratio 0.78L CBC/BMP Laboratory Tests 07/13/16 05:34 Red Blood Count 4.28 L, Mean Corpuscular Volume 97.2 H, Mean Corpuscular Hemoglobin 32.8, Mean Corpuscular Hemoglobin Concent 33.8, Red Cell Distribution Width 14.2, Neutrophils (%) (Auto) 93.9 H, Lymphocytes (%) (Auto) 2.9 L, Monocytes (%) (Auto) 2.4, Eosinophils (%) (Auto) 0.4, Basophils (%) (Auto ) 0.1, Neutrophils # (Auto) 15.9 H, Lymphocytes # (Auto) 0.6 L, Monocytes # ( Auto) 0.4, Eosinophils # (Auto) 0.1, Basophils # (Auto) 0.0, Calcium Level 8.9, Aspartate Amino Transf (AST/SGOT) 35, Alanine Aminotransferase (ALT/SGPT) 113 H , Alkaline Phosphatase 68, Total Bilirubin 0.5, Total Protein 6.4, Albumin 2.8 L Microbiology Microbiology 07/08/16 Blood Culture - Preliminary, Resulted No Growth after 72 hours. All specime... 07/08/16 Blood Culture - Preliminary, Resulted No Growth after 72 hours. All specime... 07/09/16 Gram Stain - Final, Resulted 07/09/16 Sputum Culture - Preliminary, Resulted Pseudomonas Aeruginosa 07/08/16 Influenza Virus Type A Antigen - Final, Complete 07/08/16 Influenza Virus Type B Antigen - Final, Complete 07/08/16 Respiratory Virus Panel (PCR) (NATTY) - Final, Complete NGUYEN MOORE MD Jul 13, 2016 12:07
[2016-07-13 14:00] VITALS: BP 133/76
--- NOTE | 2016-07-13 16:40 | ECGEPIP ---
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
[2016-07-13] MEDS: SERTRALINE HCL 25 MG TABLET PO SCH (20:59)
[2016-07-13 22:00] VITALS: BP 116/72
[2016-07-14] MEDS: ACETAMINOPHEN 500 MG TAB PO PRN (00:01)
[2016-07-14] MEDS: methylPREDNISolone INJ 125 MG/2 ML VIAL (J2930) IV SCH (01:46)
[2016-07-14] MEDS: IPRATROPIUM 0.5MG/ALBUTEROL 2.5MG INH SOL UD 3ML (DUONEB)(J7620) NEB SCH ×5 (03:05→19:32)
[2016-07-14 04:22] VITALS: BP 137/82
[2016-07-14] MEDS: guaiFENesin 200 MG TAB PO SCH ×6 (04:27→21:52)
[2016-07-14] MEDS: CALCIUM CARBONATE 500 MG CHEW U/D PO PRN (04:27)
[2016-07-14] MEDS: LevoFLOXacin 500 MG TABLET PO SCH (05:07)
[2016-07-14] MEDS: SLF 3 ML SYR IV SCH ×3 (05:08→21:53)
[2016-07-14 06:00] VITALS: BP 137/86
[2016-07-14 06:03] LABS: BASO % 0.1 % (0.0-1.0); EOS % 0.2 % (0.0-3.0); LARGE UNSTAINED CELL # 0.1 K/mm3 (0.0-0.4); LARGE UNSTAINED CELL % 0.3 % (0.0-4.0); LYMPH # 0.5 K/mm3 (1.5-4.5); MEAN CORPUSCULAR HEMOGLOBIN 32.9 pg (27.0-33.0); MEAN CORPUSCULAR HGB CONC 34.1 g/dl (32.0-36.5); MEAN CORPUSCULAR VOLUME 96.4 fl (80.0-96.0); MONO # 0.6 K/mm3 (0.0-0.8); MONO % 3.9 % (0.0-5.0); NEUTROPHILS # 13.9 K/mm3 (1.8-7.7); NEUTROPHILS % 92.4 % (36.0-66.0); PLATELET COUNT, AUTOMATED 147 k/mm3 (150-450)
[2016-07-14 06:26] LABS: ALBUMIN 2.7 GM/DL (3.2-5.2); ALBUMIN/GLOBULIN RATIO 0.73 (1.00-1.93); BILIRUBIN,TOTAL 0.5 MG/DL (0.2-1.0); CALCIUM LEVEL 8.8 MG/DL (8.8-10.2); CREATININE FOR GFR 1.37 MG/DL (0.70-1.30); GLOMERULAR FILTRATION RATE 55.9 (>49); MAGNESIUM LEVEL 2.3 MG/DL (1.8-2.4); POTASSIUM SERUM 4.4 MEQ/L (3.5-5.1); TOTAL PROTEIN 6.4 GM/DL (6.4-8.2)
[2016-07-14] MEDS: ADVAIR DISKUS 100/50 INH PWD INH SCH ×2 (07:48→19:32)
[2016-07-14] MEDS: TIOTROPIUM INHALER/CAPSULE (SPIRIVA) INH SCH (07:48)
[2016-07-14] MEDS ORDERED: methylPREDNISolone INJ 40 MG/1 ML VIAL (J2920) IV SCH (08:00)
[2016-07-14] MEDS: HEPARIN SOD (PORCINE) 5000 UNITS/ML VIAL SC SCH ×2 (08:31→21:52)
[2016-07-14] MEDS: ALLOPURINOL 300 MG TAB PO SCH (08:31)
[2016-07-14] MEDS: FERROUS SULFATE 325MG TAB PO SCH (08:32)
[2016-07-14] MEDS: MAGNESIUM OXIDE 400 MG TAB (MAG-OX) PO SCH (08:32)
[2016-07-14] MEDS: rOPINIRole 1MG TAB PO SCH ×2 (08:32→21:52)
[2016-07-14] MEDS: OMEPRAZOLE 20 MG CAP PO SCH (08:32)
[2016-07-14] MEDS: MULTIVITAMINS/MINERALS THERAP 1 TAB PO SCH (08:32)
[2016-07-14] MEDS: PRAVASTATIN 20 MG TAB PO SCH (08:32)
[2016-07-14] MEDS: ASPIRIN 81 MG ENTERIC TAB PO SCH (08:32)
[2016-07-14] MEDS: CARVedilol 6.25 MG TAB PO SCH ×2 (08:33→21:52)
--- NOTE | 2016-07-14 11:52 | IPNPDOC ---
Subjective Date Seen The patient was seen on 07/14/16. Subjective Chief Complaint/HPI The patient is a 65-year-old male admitted with a reason for visit of SOB. Events since last encounter Patient reports feeling about the same as yesterday. Still having some chest discomfort upon awakening. This is similar to the chest discomfort he's had for the past few days. Patient feels better than upon admission. Patient presents feelings about going to a assisted care facility. He is interested in exploring options. Does not want to give up his freedom but also does not want to return to the hospital as many times as he has. General: Denies: Chills Constitutional: Denies: Chills, Fever Eyes: Denies: Vision change ENT: Denies: Head Aches Skin: Denies: Rash, Lesions Pulmonary: Reports: Dyspnea, Cough Cardiovascular: Reports: Chest Pain (chest discomfort as before. Occurs when he wakes up.) Gastrointestinal: Denies: Nausea, Vomiting, Abdominal Pain Genitourinary: Denies: Dysuria, Frequency Musculoskeletal: Reports: Back Pain (right low back.) Neurological: Reports: Weakness (chronic weakness in left leg.), Denies: Change in speech, Confusion Psych: Reports: Mood Normal Objective Physical Examination General Exam: Positive: Alert, Cooperative, No Acute Distress ENT Exam: Positive: Atraumatic, Mucous membr. moist/pink, Pharynx Normal Neck Exam: Positive: Supple, Negative: JVD, thyromegaly Chest Exam: Positive: Wheezing (some mild expiratory wheezing.), Diminished, Other, Negative: Rhonchi Heart Exam: Positive: Rate Normal, Normal S1, Normal S2, Negative: Murmurs, Rubs Abdomen Exam: Positive: Normal bowel sounds, Soft, Negative: Tenderness Extremity Exam: Positive: Normal pulses, Other (left lower extremity 4/5. Right leg 5 out of 5 muscle strength.), Negative: Edema Neuro Exam: Positive: Normal Speech, Other (no numbness in lower extremity.) Psych Exam: Positive: Mental status NL, Mood NL, Oriented x 3 Assessment /Plan Plan/VTE VTE Prophylaxis Ordered?: Yes (heparin subcutaneous, compression stockings, sequentials.) Plan COPD with exacerbation Sees Dr. Kimball for pulmonology as an outpatient Has a history of lobectomy for cancer as well as radiation. CXR with no acute findings Sputum Culture + for Pseudomonas-->On Levaquin Continue patient on IV steroids at this time. 60 mg every 8 hours. Continue Spiriva, Advair, DuoNeb. Patient's respiratory status has improved today, however we will taper his steroids slowly as he did have an exacerbation when they were tapered back the other day. Down to methylprednisolone IV 40 mg every 12. Left Upper and Lower Extremity Muscle Spasms, resolved No acute focal neurological deficits observed on exam compared to baseline MRI of cervical spine on 07/11/2016 showed There is cervical spondylolysis at the C2-3 through C7-T1 levels, most significant at the C4-5 and C5-6 levels where there is minimal spinal cord compression. MRI of lumbar spine on 07/11/2016 showed Diffuse disc bulges and epidural lipomatosis at the L1-2 and L3-4 through L5-S1 levels with minimal thecal sac compression. I have advised the patient to follow up with Spinal Surgery as an outpatient if the patient has these symptoms again in the future History of CVA (cerebrovascular accident) Continue aspirin and pravastatin Anxiety and depression Cont Zoloft, Hydroxyzine prn Restless leg syndrome Continue ropinirole Diastolic CHF Appears Euvolemic at this time Echo revealed patient has grade 1 diastolic congestive heart failure. Not on any diuretics We'll continue patient on carvedilol LUCA (obstructive sleep apnea) Continue use of patient's home device. Fatty liver Labs notable for transaminitis Liver ultrasound was ordered and found to have fatty liver. Patient will follow up on this as outpatient. Chronic Kidney Disease Serum Cr at Baseline DVT Prophylaxis Heparin SC Disposition PFS was consulted. Discussed with patient options with assisted living. Patient is interested in exploring these options. Patient has had frequent admissions over the past year. However he does not want to lose his independence. We'll need to discuss further. VS, I&O, 24H, Fishbone Vital Signs/I&O Vital Signs Date Time Temp Pulse Resp B/P (MAP) Pulse Ox O2 Delivery O2 Flow Rate FiO2 07/14/16 08:33 61 137/86 07/14/16 06:00 97.8 16 93 NIPPV (BIPAP/CPAP) 07/13/16 22:00 2.0 07/12/16 12:16 27 I&O- Last 24 Hours up to 6 AM 07/14/16 06:00 Intake Total 2160 ml Output Total 4675 ml Balance -2515 ml Laboratory Data 24H LABS Laboratory Tests 2 07/14/16 05:42: White Blood Count 15.0H, Red Blood Count 4.35, Hemoglobin 14.3, Hematocrit 42.0 , Mean Corpuscular Volume 96.4H, Mean Corpuscular Hemoglobin 32.9, Mean Corpuscular Hemoglobin Concent 34.1, Red Cell Distribution Width 14.0, Platelet Count 147L, Neutrophils (%) (Auto) 92.4H, Lymphocytes (%) (Auto) 3.0L, Monocytes (%) (Auto) 3.9, Eosinophils (%) (Auto) 0.2, Basophils (%) (Auto) 0.1, Neutrophils # (Auto) 13.9H, Lymphocytes # (Auto) 0.5L, Monocytes # (Auto) 0.6, Eosinophils # (Auto) 0.0, Basophils # (Auto) 0.0, Large Unclassified Cells % 0.3 , Large Unclassified Cells # 0.1, Anion Gap 8, Glomerular Filtration Rate 55.9, Blood Urea Nitrogen 42H, Creatinine 1.37H, Sodium Level 134L, Potassium Level 4.4, Chloride Level 96L, Carbon Dioxide Level 30, Calcium Level 8.8, Aspartate Amino Transf (AST/SGOT) 36, Alanine Aminotransferase (ALT/SGPT) 114H, Alkaline Phosphatase 70, Total Bilirubin 0.5, Total Protein 6.4, Albumin 2.7L, Magnesium Level 2.3, Albumin/Globulin Ratio 0.73L CBC/BMP Laboratory Tests 07/14/16 05:42 Red Blood Count 4.35, Mean Corpuscular Volume 96.4 H, Mean Corpuscular Hemoglobin 32.9, Mean Corpuscular Hemoglobin Concent 34.1, Red Cell Distribution Width 14.0, Neutrophils (%) (Auto) 92.4 H, Lymphocytes (%) (Auto) 3.0 L, Monocytes (%) (Auto) 3.9, Eosinophils (%) (Auto) 0.2, Basophils (%) (Auto ) 0.1, Neutrophils # (Auto) 13.9 H, Lymphocytes # (Auto) 0.5 L, Monocytes # ( Auto) 0.6, Eosinophils # (Auto) 0.0, Basophils # (Auto) 0.0, Calcium Level 8.8, Aspartate Amino Transf (AST/SGOT) 36, Alanine Aminotransferase (ALT/SGPT) 114 H , Alkaline Phosphatase 70, Total Bilirubin 0.5, Total Protein 6.4, Albumin 2.7 L Microbiology Microbiology 07/08/16 Blood Culture - Final, Complete NO GROWTH AFTER 5 DAYS 07/08/16 Blood Culture - Final, Complete NO GROWTH AFTER 5 DAYS 07/09/16 Gram Stain - Final, Resulted 07/09/16 Sputum Culture - Preliminary, Resulted Pseudomonas Aeruginosa 07/08/16 Influenza Virus Type A Antigen - Final, Complete 07/08/16 Influenza Virus Type B Antigen - Final, Complete 07/08/16 Respiratory Virus Panel (PCR) (NATTY) - Final, Complete GME ATTESTATION GME ATTESTATION My preceptor for this patient encounter was Dr. Guerrero and he was physically present in the building during the encounter and was fully available. As needed , all aspects of the patient interview, examination, medical decision making process, and medical care plan development were reviewed and approved by the preceptor. Preceptor is aware and concurs with the plan as stated in the body of this note and will attest to such by his/her cosignature. DEL ORTIZ DO Jul 14, 2016 11:48
[2016-07-14] MEDS: methylPREDNISolone INJ 40 MG/1 ML VIAL (J2920) IV SCH (13:19)
[2016-07-14 14:00] VITALS: BP 135/85
[2016-07-14] MEDS: SERTRALINE HCL 25 MG TABLET PO SCH (21:51)
[2016-07-14 22:00] VITALS: BP 138/79
[2016-07-15] MEDS: IPRATROPIUM 0.5MG/ALBUTEROL 2.5MG INH SOL UD 3ML (DUONEB)(J7620) NEB SCH ×7 (00:14→23:33)
[2016-07-15] MEDS: methylPREDNISolone INJ 40 MG/1 ML VIAL (J2920) IV SCH (01:05)
[2016-07-15] MEDS: guaiFENesin 200 MG TAB PO SCH ×6 (01:05→20:43)
[2016-07-15] MEDS: ACETAMINOPHEN 500 MG TAB PO PRN (03:41)
[2016-07-15] MEDS: LevoFLOXacin 500 MG TABLET PO SCH (05:16)
[2016-07-15] MEDS: SLF 3 ML SYR IV SCH ×3 (05:17→20:46)
[2016-07-15 06:00] VITALS: BP 145/95
[2016-07-15 07:06] LABS: BASO % 0.3 % (0.0-1.0); EOS % 0.2 % (0.0-3.0); LARGE UNSTAINED CELL # 0.1 K/mm3 (0.0-0.4); LARGE UNSTAINED CELL % 0.6 % (0.0-4.0); LYMPH # 0.5 K/mm3 (1.5-4.5); MEAN CORPUSCULAR HEMOGLOBIN 32.5 pg (27.0-33.0); MEAN CORPUSCULAR HGB CONC 33.4 g/dl (32.0-36.5); MEAN CORPUSCULAR VOLUME 97.4 fl (80.0-96.0); MONO # 0.6 K/mm3 (0.0-0.8); MONO % 4.2 % (0.0-5.0); NEUTROPHILS # 12.7 K/mm3 (1.8-7.7); NEUTROPHILS % 91.7 % (36.0-66.0); PLATELET COUNT, AUTOMATED 155 k/mm3 (150-450); RED CELL DISTRIBUTION WIDTH 14.1 % (11.5-14.5); WHITE BLOOD COUNT 13.8 K/mm3 (4.0-10.0)
[2016-07-15 07:12] LABS: ALBUMIN 2.7 GM/DL (3.2-5.2); ALBUMIN/GLOBULIN RATIO 0.75 (1.00-1.93); BILIRUBIN,TOTAL 0.5 MG/DL (0.2-1.0); CALCIUM LEVEL 8.8 MG/DL (8.8-10.2); CREATININE FOR GFR 1.41 MG/DL (0.70-1.30); MAGNESIUM LEVEL 2.2 MG/DL (1.8-2.4); POTASSIUM SERUM 4.4 MEQ/L (3.5-5.1); TOTAL PROTEIN 6.3 GM/DL (6.4-8.2)
[2016-07-15] MEDS: TIOTROPIUM INHALER/CAPSULE (SPIRIVA) INH SCH (07:55)
[2016-07-15] MEDS: ADVAIR DISKUS 100/50 INH PWD INH SCH ×2 (07:55→21:48)
[2016-07-15] MEDS: OMEPRAZOLE 20 MG CAP PO SCH (08:37)
[2016-07-15] MEDS: rOPINIRole 1MG TAB PO SCH ×2 (08:37→20:43)
[2016-07-15] MEDS: PRAVASTATIN 20 MG TAB PO SCH (08:37)
[2016-07-15] MEDS: HEPARIN SOD (PORCINE) 5000 UNITS/ML VIAL SC SCH ×2 (08:37→20:43)
[2016-07-15] MEDS: FERROUS SULFATE 325MG TAB PO SCH (08:37)
[2016-07-15] MEDS: ASPIRIN 81 MG ENTERIC TAB PO SCH (08:38)
[2016-07-15] MEDS: ALLOPURINOL 300 MG TAB PO SCH (08:38)
[2016-07-15] MEDS: MAGNESIUM OXIDE 400 MG TAB (MAG-OX) PO SCH (08:38)
[2016-07-15] MEDS: CARVedilol 6.25 MG TAB PO SCH ×2 (08:38→20:44)
[2016-07-15] MEDS: MULTIVITAMINS/MINERALS THERAP 1 TAB PO SCH (08:38)
[2016-07-15] MEDS: predniSONE 20 MG TAB PO SCH ×2 (09:04→20:44)
--- NOTE | 2016-07-15 12:03 | IPNPDOC ---
Subjective Date Seen The patient was seen on 07/15/16. Subjective Chief Complaint/HPI The patient is a 65-year-old male admitted with a reason for visit of SOB. Events since last encounter Feeling better, worried that he went home too soon and "failed" on prednisone. Worried that he will fail again, breathing much easier, no cough, no sputum production Constitutional: Denies: Chills, Fever Pulmonary: Denies: Dyspnea, Cough Cardiovascular: Denies: Chest Pain, Palpitations Gastrointestinal: Denies: Nausea, Vomiting, Abdominal Pain Objective Physical Examination General Exam: Positive: Cooperative, No Acute Distress Eye Exam: Negative: Sclera icteric ENT Exam: Positive: Mucous membr. moist/pink Neck Exam: Positive: Supple Chest Exam: Positive: Diminished, Negative: Rhonchi, Wheezing Heart Exam: Positive: Rate Normal, Normal S1, Normal S2 Abdomen Exam: Positive: Normal bowel sounds, Soft, Negative: Tenderness Extremity Exam: Negative: Edema Assessment /Plan Problems (1) Left-sided weakness Status: Acute Problem Text: Thought to be related to muscle spasm. No alarming findings on imaging to suggest neurologic emergency MRI CSpine: There is cervical spondylolysis at the C2-3 through C7-T1 levels, most significant at the C4-5 and C5-6 levels where there is minimal spinal cord compression. MRI LSPine: Diffuse disc bulges and epidural lipomatosis at the L1-2 and L3-4 through L5-S1 levels with minimal thecal sac compression. Diffuse disc bulge , small central disc protrusion and epidural lipomatosis at the L2-3 level with minimal thecal sac compression. (2) COPD with exacerbation Status: Acute Problem Text: Previous has grown MRSA- Now growing pseudomonas- on levaquin- much improved (3) History of CVA (cerebrovascular accident) Problem Text: Patient has history of CVA. (4) Anxiety and depression Problem Text: Continue patient on home medication at this time and monitor clinically. (5) Restless leg syndrome Problem Text: Continue patient on home ropinirole at this time. (6) Diastolic CHF Problem Text: compensated. Echo revealed patient has grade 1 diastolic congestive heart failure. We'll continue patient on carvedilol (7) LUCA (obstructive sleep apnea) Problem Text: Continue use of patient's home device. (8) Acute renal failure Status: Acute Problem Text: Patient's creatinine baseline is 1.2-1.3. Plan/VTE VTE Prophylaxis Ordered?: Yes (heparin subcutaneous, compression stockings, sequentials.) VS, I&O, 24H, [facility] Vital Signs/I&O Vital Signs Date Time Temp Pulse Resp B/P (MAP) Pulse Ox O2 Delivery O2 Flow Rate FiO2 07/15/16 08:38 71 145/95 07/15/16 06:00 97.7 18 97 Room Air 07/14/16 08:00 2.0 07/12/16 12:16 27 I&O- Last 24 Hours up to 6 AM 07/15/16 06:00 Intake Total 1920 ml Output Total 5025 ml Balance -3105 ml Laboratory Data 24H LABS Laboratory Tests 2 07/15/16 06:19: White Blood Count 13.8H, Red Blood Count 4.50, Hemoglobin 14.7, Hematocrit 43.8 , Mean Corpuscular Volume 97.4H, Mean Corpuscular Hemoglobin 32.5, Mean Corpuscular Hemoglobin Concent 33.4, Red Cell Distribution Width 14.1, Platelet Count 155, Neutrophils (%) (Auto) 91.7H, Lymphocytes (%) (Auto) 3.0L, Monocytes (%) (Auto) 4.2, Eosinophils (%) (Auto) 0.2, Basophils (%) (Auto) 0.3, Neutrophils # (Auto) 12.7H, Lymphocytes # (Auto) 0.5L, Monocytes # (Auto) 0.6, Eosinophils # (Auto) 0.0, Basophils # (Auto) 0.0, Large Unclassified Cells % 0.6 , Large Unclassified Cells # 0.1, Anion Gap 7L, Glomerular Filtration Rate 54.0 , Blood Urea Nitrogen 44H, Creatinine 1.41H, Sodium Level 133L, Potassium Level 4.4, Chloride Level 97L, Carbon Dioxide Level 29, Calcium Level 8.8, Aspartate Amino Transf (AST/SGOT) 49H, Alanine Aminotransferase (ALT/SGPT) 144H, Alkaline Phosphatase 77, Total Bilirubin 0.5, Total Protein 6.3L, Albumin 2.7L, Magnesium Level 2.2, Albumin/Globulin Ratio 0.75L CBC/BMP Laboratory Tests 07/15/16 06:19 Red Blood Count 4.50, Mean Corpuscular Volume 97.4 H, Mean Corpuscular Hemoglobin 32.5, Mean Corpuscular Hemoglobin Concent 33.4, Red Cell Distribution Width 14.1, Neutrophils (%) (Auto) 91.7 H, Lymphocytes (%) (Auto) 3.0 L, Monocytes (%) (Auto) 4.2, Eosinophils (%) (Auto) 0.2, Basophils (%) (Auto ) 0.3, Neutrophils # (Auto) 12.7 H, Lymphocytes # (Auto) 0.5 L, Monocytes # ( Auto) 0.6, Eosinophils # (Auto) 0.0, Basophils # (Auto) 0.0, Calcium Level 8.8, Aspartate Amino Transf (AST/SGOT) 49 H, Alanine Aminotransferase (ALT/SGPT) 144 H, Alkaline Phosphatase 77, Total Bilirubin 0.5, Total Protein 6.3 L, Albumin 2.7 L Microbiology Microbiology 07/08/16 Blood Culture - Final, Complete NO GROWTH AFTER 5 DAYS 07/08/16 Blood Culture - Final, Complete NO GROWTH AFTER 5 DAYS 07/09/16 Gram Stain - Final, Resulted 07/09/16 Sputum Culture - Preliminary, Resulted Pseudomonas Aeruginosa 07/08/16 Influenza Virus Type A Antigen - Final, Complete 07/08/16 Influenza Virus Type B Antigen - Final, Complete 07/08/16 Respiratory Virus Panel (PCR) ([facility]Y) - Final, Complete NARDA IRWIN MD Jul 15, 2016 12:03
[2016-07-15 14:00] VITALS: BP 126/72
[2016-07-15] MEDS ORDERED: LOPERAMIDE 2 MG CAP PO ONE (18:45)
[2016-07-15] MEDS: SERTRALINE HCL 25 MG TABLET PO SCH (20:44)
[2016-07-15 22:00] VITALS: BP 131/90
[2016-07-16] MEDS: guaiFENesin 200 MG TAB PO SCH ×6 (01:31→21:15)
[2016-07-16] MEDS: ACETAMINOPHEN 500 MG TAB PO PRN ×2 (01:31→21:18)
[2016-07-16] MEDS: IPRATROPIUM 0.5MG/ALBUTEROL 2.5MG INH SOL UD 3ML (DUONEB)(J7620) NEB SCH ×5 (03:50→18:52)
[2016-07-16] MEDS: LevoFLOXacin 500 MG TABLET PO SCH (05:36)
[2016-07-16] MEDS: SLF 3 ML SYR IV SCH (05:36)
[2016-07-16 06:00] VITALS: BP 134/90
[2016-07-16] MEDS: ADVAIR DISKUS 100/50 INH PWD INH SCH ×2 (07:54→19:54)
[2016-07-16] MEDS: TIOTROPIUM INHALER/CAPSULE (SPIRIVA) INH SCH (07:54)
[2016-07-16] MEDS: OMEPRAZOLE 20 MG CAP PO SCH (08:28)
[2016-07-16] MEDS: predniSONE 20 MG TAB PO SCH ×2 (08:28→21:16)
[2016-07-16] MEDS: MULTIVITAMINS/MINERALS THERAP 1 TAB PO SCH (08:28)
[2016-07-16] MEDS: FERROUS SULFATE 325MG TAB PO SCH (08:28)
[2016-07-16] MEDS: ASPIRIN 81 MG ENTERIC TAB PO SCH (08:28)
[2016-07-16] MEDS: MAGNESIUM OXIDE 400 MG TAB (MAG-OX) PO SCH (08:29)
[2016-07-16] MEDS: HEPARIN SOD (PORCINE) 5000 UNITS/ML VIAL SC SCH ×2 (08:29→21:15)
[2016-07-16] MEDS: ALLOPURINOL 300 MG TAB PO SCH (08:29)
[2016-07-16] MEDS: CARVedilol 6.25 MG TAB PO SCH ×2 (08:29→21:17)
[2016-07-16] MEDS: rOPINIRole 1MG TAB PO SCH ×2 (08:29→21:15)
[2016-07-16] MEDS: PRAVASTATIN 20 MG TAB PO SCH (08:29)
--- NOTE | 2016-07-16 13:43 | IPNPDOC ---
Subjective Date Seen The patient was seen on 07/16/16. Subjective Chief Complaint/HPI The patient is a 65-year-old male admitted with a reason for visit of SOB. Events since last encounter Feeling better, stronger. Amenable to dc plan for 07/17/16. Not short of breath. tolerating diet Constitutional: Denies: Chills, Fever Pulmonary: Denies: Dyspnea, Cough Cardiovascular: Denies: Chest Pain, Palpitations Gastrointestinal: Denies: Nausea, Vomiting, Abdominal Pain Objective Physical Examination General Exam: Positive: Alert, Cooperative, No Acute Distress Eye Exam: Negative: Sclera icteric Neck Exam: Positive: Supple Chest Exam: Positive: Diminished, Negative: Rhonchi, Wheezing Heart Exam: Positive: Rate Normal, Normal S1, Normal S2 Abdomen Exam: Positive: Normal bowel sounds, Soft, Negative: Tenderness Extremity Exam: Negative: Edema Assessment /Plan Problems (1) Left-sided weakness Status: Acute Problem Text: Thought to be related to muscle spasm. No alarming findings on imaging to suggest neurologic emergency MRI CSpine: There is cervical spondylolysis at the C2-3 through C7-T1 levels, most significant at the C4-5 and C5-6 levels where there is minimal spinal cord compression. MRI LSPine: Diffuse disc bulges and epidural lipomatosis at the L1-2 and L3-4 through L5-S1 levels with minimal thecal sac compression. Diffuse disc bulge , small central disc protrusion and epidural lipomatosis at the L2-3 level with minimal thecal sac compression. (2) COPD with exacerbation Status: Acute Problem Text: Previous has grown MRSA- Now growing pseudomonas- on levaquin- much improved on po prednisone (3) History of CVA (cerebrovascular accident) Problem Text: Patient has history of CVA. (4) Anxiety and depression Problem Text: Continue patient on home medication at this time and monitor clinically. (5) Restless leg syndrome Problem Text: Continue patient on home ropinirole at this time. (6) Diastolic CHF Problem Text: compensated. Echo revealed patient has grade 1 diastolic congestive heart failure. We'll continue patient on carvedilol (7) LUCA (obstructive sleep apnea) Problem Text: Continue use of patient's home device. (8) Acute renal failure Status: Acute Problem Text: Patient's creatinine baseline is 1.2-1.3. Plan/VTE VTE Prophylaxis Ordered?: Yes (heparin subcutaneous, compression stockings, sequentials.) VS, I&O, 24H, [facility] Vital Signs/I&O Vital Signs Date Time Temp Pulse Resp B/P (MAP) Pulse Ox O2 Delivery O2 Flow Rate FiO2 07/16/16 09:00 Room Air 07/16/16 08:29 61 134/90 07/16/16 06:00 96.8 20 95 07/14/16 08:00 2.0 07/12/16 12:16 27 I&O- Last 24 Hours up to 6 AM 07/16/16 06:00 Intake Total 2880 ml Output Total 4225 ml Balance -1345 ml Laboratory Data Microbiology Microbiology 07/08/16 Blood Culture - Final, Complete NO GROWTH AFTER 5 DAYS 07/08/16 Blood Culture - Final, Complete NO GROWTH AFTER 5 DAYS 07/15/16 Clostridium difficile (PCR) - Final, Complete 07/09/16 Gram Stain - Final, Complete 07/09/16 Sputum Culture - Final, Complete Pseudomonas Aeruginosa 07/08/16 Influenza Virus Type A Antigen - Final, Complete 07/08/16 Influenza Virus Type B Antigen - Final, Complete 07/08/16 Respiratory Virus Panel (PCR) ([facility]Y) - Final, Complete NARDA IRWIN MD Jul 16, 2016 13:43
[2016-07-16 14:00] VITALS: BP 132/83
[2016-07-16] MEDS: SERTRALINE HCL 25 MG TABLET PO SCH (21:15)
[2016-07-16 21:17] VITALS: BP 131/86
[2016-07-16 22:00] VITALS: BP 131/86
[2016-07-17] MEDS: guaiFENesin 200 MG TAB PO SCH ×3 (01:02→08:58)
[2016-07-17] MEDS: IPRATROPIUM 0.5MG/ALBUTEROL 2.5MG INH SOL UD 3ML (DUONEB)(J7620) NEB SCH ×3 (02:54→08:00)
[2016-07-17] MEDS: LevoFLOXacin 500 MG TABLET PO SCH (05:11)
[2016-07-17 06:00] VITALS: BP 130/94
[2016-07-17] MEDS ORDERED: LEVA500T PO (06:29)
[2016-07-17] MEDS ORDERED: PRED10TA PO (06:29)
[2016-07-17] MEDS ORDERED: ALBU83IN INH (06:38)
[2016-07-17] MEDS: TIOTROPIUM INHALER/CAPSULE (SPIRIVA) INH SCH (08:00)
[2016-07-17] MEDS: ADVAIR DISKUS 100/50 INH PWD INH SCH (08:00)
[2016-07-17] MEDS: MULTIVITAMINS/MINERALS THERAP 1 TAB PO SCH (08:58)
[2016-07-17] MEDS: PRAVASTATIN 20 MG TAB PO SCH (08:58)
[2016-07-17] MEDS: ALLOPURINOL 300 MG TAB PO SCH (08:58)
[2016-07-17] MEDS: predniSONE 20 MG TAB PO SCH (08:59)
[2016-07-17] MEDS: CARVedilol 6.25 MG TAB PO SCH (08:59)
[2016-07-17] MEDS: HEPARIN SOD (PORCINE) 5000 UNITS/ML VIAL SC SCH (08:59)
[2016-07-17] MEDS: OMEPRAZOLE 20 MG CAP PO SCH (08:59)
[2016-07-17] MEDS: ASPIRIN 81 MG ENTERIC TAB PO SCH (08:59)
[2016-07-17] MEDS: FERROUS SULFATE 325MG TAB PO SCH (08:59)
[2016-07-17] MEDS: rOPINIRole 1MG TAB PO SCH (08:59)
[2016-07-17] MEDS: MAGNESIUM OXIDE 400 MG TAB (MAG-OX) PO SCH (08:59)
--- NOTE | 2016-07-17 12:57 | DSES ---
DATE OF ADMISSION: 07/10/2016 DATE OF DISCHARGE: 07/17/2016 There were no specialists involved in his care. No complications during his stay. DISCHARGE DIAGNOSES: Pseudomonas bronchitis. History of cerebrovascular accident (CVA). Anxiety and depression. Restless leg syndrome. Diastolic congestive heart failure (CHF). Obstructive sleep apnea (LUCA). Acute renal failure. Left sided weakness thought to be related to muscle spasm. SUMMARY OF HOSPITALIZATION: This is a 65-year-old man who had recently been discharged from [facility], returned with shortness of breath and left upper and lower extremity discomfort, was thought to possibly have bronchitis. He is known to have chronic obstructive pulmonary disease (COPD) with chronic oxygen requirement. He was also concerned about his left upper and lower extremity discomfort. He had a lumbar and cervical spine MRI. Cervical spine MRI showed spondylolysis at C2 through T1 levels. Most significant at C4-C5, C5-C6 with minimal cord compression at the end of the L spine which showed lipomatosis at L1-2, L3-4 and L5-S1 levels with minimal thecal sac compression. During the course of his evaluation, a sputum sample was obtained which grew Pseudomonas. He was treated appropriately for that, put on a steroid taper and then improved slowly given the fact that he had been discharged and readmitted in short order. Discharge was delayed to ensure that this time he should not return to the hospital for a similar complaint. On the day of discharge, he is feeling well. No complaints of chest pain, no shortness of breath. He is tolerating diet. Temperature 97.6, pulse 71, respiratory rate 20, blood pressure 130/94, 94% on room air. He is awake, speaking in complete sentences, no accessory muscle use. I-to-E ratio is 1:3, diminished breath sounds, but no wheezes, rales or rhonchi. Heart is distant sounding. Normal S1 and S2. Abdomen soft, doughy, somewhat distended but nontender. White cell count 13.8, hemoglobin 14.7, BUN 44, creatinine 1.41 which has been up and down in that general range since the third day of his admission. DISCHARGE INSTRUCTIONS: Include the following: Followup with Dr. Pike 07/24 at 3:30 p.m. Diet and activity as tolerated. MEDICATIONS: - Continue his albuterol every 2 hours as needed for shortness of breath. He was given a refill of his nebulizer solution as he is out. - Levaquin 500 mg by mouth daily - prednisone tapering dose as written - Tylenol every 6 hours as needed for pain - albuterol HFA as written - DuoNebs four times a day as needed for shortness of breath - allopurinol 300 mg by mouth daily - aspirin 81 mg by mouth daily - Coreg 6.25 mg by mouth daily - ferrous sulfate 325 mg by mouth daily - Breo Ellipta one puff inhaled daily - hydroxyzine 50 mg by mouth as needed for anxiety - magnesium oxide daily - multivitamin tablet daily - omeprazole 20 mg daily - pravastatin 20 mg by mouth daily - Requip 1 mg by mouth daily and 2 mg at bedtime - sertraline 25 mg by mouth daily - Spiriva inhaled daily - discontinue his previous prednisone dosing
== END 2016-07-17 10:25 | disposition home health service (06) | DRG 191 ==
LOC: M ED 19:46 → UNDOADMIN 21:29 → M ED INP 21:29 → M PCU 22:57 → M MSPAV 07-10 23:25
PROVIDERS: ADMIT Internal Medicine; ATTEND Internal Medicine
DX: J44.1 Chronic obstructive pulmonary disease with (acute) exacerbation (principal); N17.9 Acute kidney failure, unspecified; I50.32 Chronic diastolic (congestive) heart failure; G47.33 Obstructive sleep apnea (adult) (pediatric); F41.9 Anxiety disorder, unspecified; F32.9 Major depressive disorder, single episode, unspecified; K76.0 Fatty (change of) liver, not elsewhere classified; M62.830 Muscle spasm of back; B96.5 Pseudomonas (aeruginosa) (mallei) (pseudomallei) as the cause of diseases classified elsewhere; G25.81 Restless legs syndrome; Z79.82 Long term (current) use of aspirin; Z79.899 Other long term (current) drug therapy; Z86.73 Personal history of transient ischemic attack (TIA), and cerebral infarction without residual deficits; Z99.81 Dependence on supplemental oxygen; Z88.8 Allergy status to other drugs, medicaments and biological substances; Z99.89 Dependence on other enabling machines and devices; Z92.3 Personal history of irradiation; Z90.49 Acquired absence of other specified parts of digestive tract; Z85.118 Personal history of other malignant neoplasm of bronchus and lung; Z90.2 Acquired absence of lung [part of]; Z83.3 Family history of diabetes mellitus; Z82.49 Family history of ischemic heart disease and other diseases of the circulatory system; Z82.8 Family history of other disabilities and chronic diseases leading to disablement, not elsewhere classified; Z87.891 Personal history of nicotine dependence; Z80.7 Family history of other malignant neoplasms of lymphoid, hematopoietic and related tissues

== ENCOUNTER 2016-09-08 19:43 | Inpatient (IN) | payer MEDICARE, MEDICAID ==
[~2016-09-08] VITALS: Ht 193 cm; Wt 148.2 kg
[~2016-09-08 19:43] MED LIST changes: +ASPI81TA21 PO; +FERR1TAB8 PO; -FERR325T PO; +HYDR50TA70 PO; +LEVA1TAB2 PO; -LEVA500T PO; -PRED10TA PO; +PRED10TA2 PO; +REQU2TAB3 PO
[2016-09-08] MEDS ORDERED: CENTTAB16 PO (20:19)
[2016-09-08] MEDS ORDERED: VITA-193 PO (20:19)
[2016-09-08 20:36] LABS: BASO % 0.2 % (0.0-1.0); EOS # 0.2 K/mm3 (0.0-0.50); EOS % 1.1 % (0.0-3.0); LARGE UNSTAINED CELL # 0.1 K/mm3 (0.0-0.4); LARGE UNSTAINED CELL % 0.9 % (0.0-4.0); LYMPH # 1.5 K/mm3 (1.5-4.5); LYMPH % 9.5 % (24.0-44.0); MEAN CORPUSCULAR HGB CONC 33.4 g/dl (32.0-36.5); MEAN CORPUSCULAR VOLUME 98.5 fl (80.0-96.0); MONO # 0.6 K/mm3 (0.0-0.8); MONO % 4.2 % (0.0-5.0); PLATELET COUNT, AUTOMATED 161 k/mm3 (150-450); RED CELL DISTRIBUTION WIDTH 14.9 % (11.5-14.5); WHITE BLOOD COUNT 14.2 K/mm3 (4.0-10.0)
[2016-09-08] MEDS ORDERED: IPRATROPIUM 0.5MG/ALBUTEROL 2.5MG INH SOL UD 3ML (DUONEB)(J7620) NEB ONE (20:45)
[2016-09-08 20:53] LABS: ANION GAP 11 MEQ/L (8-16); BLOOD UREA NITROGEN 29 MG/DL (7-18); CALCIUM LEVEL 8.6 MG/DL (8.8-10.2); CARBON DIOXIDE LEVEL 26 MEQ/L (21-32); CHLORIDE LEVEL 99 MEQ/L (98-107); CREATININE FOR GFR 1.72 MG/DL (0.70-1.30); GLUCOSE, FASTING 200 MG/DL (80-110); POTASSIUM SERUM 4.3 MEQ/L (3.5-5.1); SODIUM LEVEL 136 MEQ/L (136-145)
[2016-09-08 21:00] LABS: ABG BASE EXCESS 0.7 (-2.0-2.0); ABG HCO3 24.4 MEQ/L (22.0-26.0); ABG PARTIAL PRESSURE CO2 36.2 mmHg (35.0-45.0); ABG PARTIAL PRESSURE O2 90.3 mmHg (75.0-100.0); ABG STANDARD HCO3 25.1 MEQ/L (22.0-26.0); ABG TOTAL CO2 25.5 MEQ/L (23.0-31.0); ABG pH (ARTERIAL) 7.447 UNITS (7.350-7.450)
[2016-09-08 21:03] LABS: ALBUMIN 2.9 GM/DL (3.2-5.2); ALBUMIN/GLOBULIN RATIO 0.78 (1.00-1.93); ALKALINE PHOSPHATASE 102 U/L (45-117); ALT/SGPT 92 U/L (12-78); AST/SGOT 46 U/L (15-37); BILIRUBIN,DIRECT < 0.1 MG/DL (0.0-0.2); BILIRUBIN,TOTAL 0.3 MG/DL (0.2-1.0); TOTAL PROTEIN 6.6 GM/DL (6.4-8.2)
[2016-09-08] MEDS ORDERED: AMMO12CR4 TOP (21:19)
[2016-09-08] MEDS ORDERED: PRED10TA2 PO (21:19)
[2016-09-08] MEDS ORDERED: DOXY100C PO (21:19)
[2016-09-08] MEDS ORDERED: SERT25TA88 PO (21:19)
[2016-09-08] MEDS ORDERED: ALBU83IN INH (21:19)
[2016-09-08] MEDS ORDERED: META0.52 PO (21:19)
[2016-09-08] MEDS ORDERED: VITMTA PO (21:19)
[2016-09-08] MEDS ORDERED: NS 1,000 ML IV ONE (21:30)
--- NOTE | 2016-09-08 22:09 | ECGEPIP ---
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
[2016-09-08] MEDS ORDERED: rOPINIRole 1MG TAB PO ONE (23:00)
[2016-09-09] MEDS ORDERED: ALBUTEROL 90 MCG/ACT 8GM HFA INHALER INH PRN (00:15)
[2016-09-09] MEDS ORDERED: hydrOXYzine 50 MG TAB PO PRN (00:15)
[2016-09-09] MEDS ORDERED: ALBUTEROL SULFATE 2.5 MG/0.5 ML INH NEB SOLN INH PRN (00:15)
[2016-09-09 01:23] VITALS: BP 131/82
[2016-09-09] MEDS: DOXYCYCLINE HYCLATE 100 MG TAB PO SCH ×2 (02:15→08:54)
[2016-09-09] MEDS: CARVedilol 6.25 MG TAB PO SCH ×3 (02:16→21:13)
[2016-09-09] MEDS: SERTRALINE HCL 25 MG TABLET PO SCH ×2 (02:16→21:12)
[2016-09-09] MEDS: ADVAIR HFA 115/21MCG INHALER INH SCH ×3 (02:17→19:48)
[2016-09-09 06:00] VITALS: BP 136/90
[2016-09-09 06:23] LABS: BASO % 0.2 % (0.0-1.0); EOS # 0.1 K/mm3 (0.0-0.50); EOS % 1.1 % (0.0-3.0); LARGE UNSTAINED CELL # 0.1 K/mm3 (0.0-0.4); LARGE UNSTAINED CELL % 0.7 % (0.0-4.0); LYMPH # 1.1 K/mm3 (1.5-4.5); LYMPH % 10.3 % (24.0-44.0); MEAN CORPUSCULAR HEMOGLOBIN 33.2 pg (27.0-33.0); MEAN CORPUSCULAR HGB CONC 33.6 g/dl (32.0-36.5); MONO # 0.5 K/mm3 (0.0-0.8); MONO % 4.7 % (0.0-5.0); NEUTROPHILS # 7.9 K/mm3 (1.8-7.7); PLATELET COUNT, AUTOMATED 132 k/mm3 (150-450); RED CELL DISTRIBUTION WIDTH 14.9 % (11.5-14.5); WHITE BLOOD COUNT 9.6 K/mm3 (4.0-10.0)
[2016-09-09 06:39] LABS: ALBUMIN 2.8 GM/DL (3.2-5.2); ALKALINE PHOSPHATASE 69 U/L (45-117); ALT/SGPT 74 U/L (12-78); ANION GAP 9 MEQ/L (8-16); AST/SGOT 26 U/L (15-37); BILIRUBIN,TOTAL 0.4 MG/DL (0.2-1.0); BLOOD UREA NITROGEN 24 MG/DL (7-18); CALCIUM LEVEL 9.2 MG/DL (8.8-10.2); CARBON DIOXIDE LEVEL 29 MEQ/L (21-32); CHLORIDE LEVEL 101 MEQ/L (98-107); CREATININE FOR GFR 1.22 MG/DL (0.70-1.30); GLOMERULAR FILTRATION RATE > 60.0 (>49); GLUCOSE, FASTING 165 MG/DL (80-110); SODIUM LEVEL 139 MEQ/L (136-145); TOTAL PROTEIN 5.6 GM/DL (6.4-8.2)
[2016-09-09] MEDS: IPRATROPIUM 0.5MG/ALBUTEROL 2.5MG INH SOL UD 3ML (DUONEB)(J7620) INH SCH ×5 (06:45→20:00)
--- NOTE | 2016-09-09 08:11 | REP ---
Chest single AP and two lateral views, three views: Comparisons are 07/08/2016, 05/15/2016, 01/03/2016 and 12/26/2015. There is chronic elevation of the left hemidiaphragm and chronic effacement left costophrenic angle, unchanged. The lung goldstein otherwise clear. Cardiac size normal. The yesenia, mediastinum, bony thorax are. Impression: There are no acute cardiopulmonary findings. Signed by Jorden Mccauley MD 09/09/2016 08:02 A
--- NOTE | 2016-09-09 08:26 | REP ---
Left ankle four views: There are no comparisons. There is tibiotalar surgical fusion and there is fusion of the distal fibula and tibia. There are two orthopedic screws one crossing the tibiotalar articulation, and the other crossing the fibulotalar articulation. 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 There is no acute fracture or dislocation. Mineralization is normal. No calcaneal spurs. Signed by Jorden Mccauley MD 09/09/2016 08:18 A
[2016-09-09] MEDS: MULTIVITAMINS/MINERALS THERAP 1 TAB PO SCH (08:53)
[2016-09-09] MEDS: ACETAMINOPHEN 500 MG TAB PO PRN (08:54)
[2016-09-09] MEDS: ASPIRIN 81 MG ENTERIC TAB PO SCH (08:54)
[2016-09-09] MEDS: CYANOCOBALAMIN 500 MCG TAB PO SCH (08:54)
[2016-09-09] MEDS: rOPINIRole 1MG TAB PO SCH ×2 (08:54→21:12)
[2016-09-09] MEDS: ALLOPURINOL 300 MG TAB PO SCH (08:54)
[2016-09-09] MEDS: FERROUS SULFATE 325MG TAB PO SCH (08:55)
[2016-09-09] MEDS: OMEPRAZOLE 20 MG CAP PO SCH (08:55)
[2016-09-09] MEDS: HEPARIN SOD (PORCINE) 5000 UNITS/ML VIAL SQ SCH ×2 (08:56→21:13)
[2016-09-09] MEDS: MAGNESIUM OXIDE 400 MG TAB (MAG-OX) PO SCH (08:56)
--- NOTE | 2016-09-09 08:56 | REP ---
AP and lateral left foot 09/08/2016. Clinical history: Trauma, status post fall. There has been ankle effusion with lag screws through the distal tibia and fibula into the talus. The mortise joint is solidly fused and remodeled. Subtalar joint shows degenerative changes posteriorly with significant degenerative changes at the superior margin of the talonavicular joint. There is no visible or acute fracture of the distal tibia and fibula or the calcaneus. Anterior process of the talus, the tarsal bones and metatarsals are without acute fracture. There is extensive periosteal reaction and thickening over the proximal shaft of the fourth metatarsal likely fusing it to a portion of the proximal third metatarsal. Degenerative changes first MTP joint with spurring and narrowing with IP joints with minor degenerative change and no fractures in the phalanges. Impression: 1. No acute fracture with ankle arthrodesis, old and remodeled along with degenerative changes of the subtalar joints and talonavicular joint. 2. Periosteal reaction from old trauma proximal fourth metatarsal abutting the proximal third metatarsal. No acute fracture of the metatarsals or phalanges. Signed by Avi Dueñas MD 09/09/2016 06:49 P
[2016-09-09] MEDS ORDERED: PRAVASTATIN 20 MG TAB PO SCH (09:00)
[2016-09-09 11:28] LABS: CORTISOL AM 13.6 UG/DL (4.3-22.4)
[2016-09-09] MEDS: MOXIFLOXACIN HCL 400 MG in APPROPRIATE DILUENT 1 EA IV SCH (12:56)
[2016-09-09 14:00] VITALS: BP 120/77
[2016-09-09] MEDS: TIOTROPIUM INHALER/CAPSULE (SPIRIVA) INH SCH (15:32)
[2016-09-09] MEDS: METAMUCIL (PSYLLIUM) PACKET PO SCH (15:37)
--- NOTE | 2016-09-09 16:05 | HPE ---
DATE OF ADMISSION: 09/09/2016 This is a very interesting 65-year-old white male with multiple medical issues. His history is most notable for a history of squamous cell carcinoma of both lungs. He has had partial resection bilaterally. In November 24 it looks like he was diagnosed with moderate to poorly differentiated squamous cell carcinoma of the right lower lobe. Also in the same year he was differentiated with squamous cell carcinoma of the left upper lobe. He did receive radiation to the right lung. He is a long-time smoker. He has since stopped smoking. He has had two recent admissions for pneumonia. His sputum has been positive for Methicillin- resistant Staphylococcus aureus (MRSA) and Pseudomonas recently. He currently is completing a course of Vibramycin through Dr. Kimball. He was in the emergency room recently and was sent home on Vibramycin for pulmonary symptoms. He denies any pulmonary symptoms currently. His chest x-ray is difficult to interpret due to his size, but I do not see a well-defined left heart border on today's compared to prior, but clinically he denies any symptoms of pneumonia. His oxygen saturations are in the mid 90s on 2 liters. He does not wear oxygen at home. He is afebrile. His white blood cell count is 14,000. He has a minimally elevated lactic acid level of 2.2, and that will need to be followed up. His complaints today are not related to respiratory as one might think he would with his history. He comes in complaining of weakness bilaterally in the lower extremities. This weakness seems to come intermittently. He is currently unable to walk because of the weakness. He is able to lift his legs slightly against gravity. The arms are not affected. He does see Dr. Villalpando. He has had multiple examinations by Dr. Villalpando, he states, including MRIs. I assume he has probably had nerve conduction studies as well. He did not receive chemotherapy for his lung cancer. There is no suggestion on physical exam of severe neuropathy. Concern is raised for possible paraneoplastic syndrome, but symptoms are intermittent and relapsing. His lung cancers, although poorly differentiated, were apparently diagnosed at an early stage. 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 We will check his cortisol level. I have ordered a creatine kinase (CK) to evaluate for possible myopathy. MEDICATIONS: - He is currently on Vibramycin. - He has finished a tapering that can course of prednisone. - He is on allopurinol 300 mg a day - baby aspirin - calcium - Coreg 6.25 mg twice daily - vitamin B12 - iron supplement - Breo Ellipta - hydroxyzine 50 mg as needed for anxiety - magnesium - multivitamin - pravastatin 20 mg - Again, we are going to check a CK for a myopathy - Requip 1 mg daily and 2 mg at bedtime - Zoloft 25 mg - Spiriva ALLERGIES: HEXACHLOROPHENE causes a rash. PAST MEDICAL HISTORY: 1. Chronic obstructive pulmonary disease (COPD). 2. History of pneumonia with opportunistic infections as discussed. 3. Lung cancer bilaterally as discussed. 4. Sleep apnea. He is compliant. 5. Gout. 6. Hypertension. 7. Nephrectomy and adrenalectomy (right. 8. History of liposarcoma. 9. Also has had partial colon resection. 10. History of torsades de pointes is listed in his record. He has received radiation to the right lung. 11. Cholecystectomy. 12. Tonsillectomy. REVIEW OF SYSTEMS GENERAL: No constitutional symptoms. HEENT: He does wear dentures. CARDIOPULMONARY: This appears to be stable. He is not complaining of any increasing shortness of breath. His exam is one of bilateral rhonchi, which I assume are chronic. He has a chronic cough but no change in his sputum production or color. GASTROINTESTINAL: Negative. GENITOURINARY: No bladder issues. VASCULAR: He has had some chronic swelling in his feet, chronic venous insufficiency. HEMATOLOGIC: Negative. PSYCHIATRIC: Negative. DERMATOLOGIC: He has plantar tinea infections bilaterally. PSYCHIATRIC: Negative. We be checking a cortisol, TSH. PHYSICAL EXAMINATION: VITAL SIGNS: Blood pressure 134/63, pulse 100. Monitor shows premature atrial contractions (PACs). Oxygen saturation 96 on 2 liters. Temperature 98.6. GENERAL APPEARANCE: Obese white male, morbidly obese. HEENT: Unremarkable. He does wear dentures. He had a very thick neck. HEART: Regular with distant tones. Ectopics noted. No murmurs. CHEST: Bilateral rhonchi. ABDOMEN: Scars from prior extensive surgery for resection of a large liposarcoma. He has some rib tenderness from his chest surgeries. EXTREMITIES: He has trace edema, venous insufficiencies bilaterally, plantar dermatitis as discussed (fungal). NEUROLOGIC: He is only able to lift his legs against gravity. Weakness seems to be more proximal than distal. Difficult to examine the distal left leg, as he has had a fusion of his left ankle. His deep tendon reflexes (DTRs) at the quadriceps are 2/4. Sensation is intact. No bladder or bowel issues. IMPRESSION/PLAN: 1. Weakness, lower extremities, episodic, uncertain etiology. Myopathy versus other. Incidentally, exam did not reveal any muscle wasting. He has already had an extensive workup with Dr. Villalpando. Paraneoplastic syndrome would be a remote possibility, although the episodic nature of it raises doubt with this possibility. Will have Dr. Villalpando see the patient again. 2. Chronic pulmonary disease. History of opportunistic infections with pneumonia. These episodes of weakness have not necessarily been associated with his prior episodes of pneumonia. His chest x-ray shows the left heart border to be not clear. He has no pulmonary symptoms, however, and I am not sure what to make of this. 3. Obstructive sleep apnea (LUCA). He wars a continuous positive airway pressure (CPAP). 4. Severe chronic obstructive pulmonary disease (COPD). Will continue him on his inhalers. He states he has had his pneumonia shots. 5. Hypertension. Restrictive lung disease secondary to obesity, prior lobectomies, radiation etc. 6. Hyperlipidemia. He is on a statin. I will hold that with what may be myopathy. edited: 09/11/2016 1321 mamie ANDREA
--- NOTE | 2016-09-09 19:42 | IPN ---
DATE: 09/09/2016 Patient seen and examined. Reported bilateral lower extremity numbness and weakness seems to be improving but not yet back to baseline. Denies any chest pain, pressure or discomfort. Continues to have a cough productive of mucus with mild wheeze and rhonchi. VITAL SIGNS: Temperature 99.3, pulse 69, respirations 20, blood pressure 120/77, pulse oximetry 95% on 2 liters nasal cannula. LABORATORY DATA: WBC 9.6, hemoglobin and hematocrit 12.9/38.5, platelets 132. Chemistry: Sodium 139, potassium 4, chloride 101, bicarbonate 29, BUN 24, creatinine 1.22. PHYSICAL EXAMINATION: GENERAL: Patient alert, comfortable, obese, in no acute distress. HEENT: Normocephalic, atraumatic. PULMONARY: Bilateral rhonchi, worsened on the right. Minimal wheeze. CARDIAC: Regular rate and rhythm. Normal S1, S2. ABDOMEN: Soft, nontender. EXTREMITIES: Negative for edema. ASSESSMENT AND PLAN: This is a 65-year-old male patient with underlying medical history of emphysema, left lower lobe pneumonia, chronic obstructive pulmonary disease (COPD), obstructive sleep apnea, on continuous positive airway pressure (CPAP), gastroesophageal reflux disease (GERD), hypertension, chronic kidney disease, history of liposarcoma with partial colon and right kidney and right adrenal gland resection, history of stage 1A left upper lobe moderately poorly differentiated squamous cell carcinoma and right lower lobe stage 1A lung cancer, squamous cell carcinoma as well with differentiated morphology, torsades de Pointes, which has resolved. Patient admitted with bilateral lower extremity weakness. Patient admitted with bilateral lower extremity weakness and is recovering from recent pneumonia. Problems: 1. Bilateral lower extremity weakness. Patient has no bowel or urinary symptoms. Paresthesia has improved. Will get MRI of the lumbosacral spine without followed by with contrast. Will need to get open MRI given the patient has claustrophobia. Physical therapy as ordered. Discussed with neurology, Dr. Villalpando. Will need outpatient followup with possible nerve conduction studies. 2. Recently treated for pneumonia, healthcare associated. 3. Chronic obstructive pulmonary disease (COPD) with COPD exacerbation. Continue antibiotics, switch to Avelox based on previous cultures. Continue prednisone, taper as tolerated. Oxygen supplementation, nebulizer treatment, Advair, Spiriva. 4. Restless legs. Continue Requip. 5. History of cerebrovascular accident (CVA). Continue aspirin. 6. Hypertension. Continue beta blockers, Coreg and monitor blood pressure. 7. Gastroesophageal reflux disease (GERD). Continue proton pump inhibitor (PPI). 8. Chronic kidney disease. BUN and creatinine at baseline. Continue to monitor. 9. Deep vein thrombosis (DVT) prophylaxis. Heparin subcutaneously. DISPOSITION PLANNING: Pending clinical improvement, neurological workup, physical therapy.
[2016-09-09] MEDS ORDERED: SYMBICORT 80/4.5MCG INHALER 6GM INH SCH (21:00)
[2016-09-09 22:00] VITALS: BP 134/81
[2016-09-10] MEDS: IPRATROPIUM 0.5MG/ALBUTEROL 2.5MG INH SOL UD 3ML (DUONEB)(J7620) INH SCH ×6 (00:01→19:31)
[2016-09-10 06:00] VITALS: BP 131/71
[2016-09-10 06:34] LABS: BASO % 0.3 % (0.0-1.0); EOS # 0.1 K/mm3 (0.0-0.50); EOS % 1.5 % (0.0-3.0); LARGE UNSTAINED CELL # 0.1 K/mm3 (0.0-0.4); LYMPH % 10.5 % (24.0-44.0); MEAN CORPUSCULAR HEMOGLOBIN 33.5 pg (27.0-33.0); MEAN CORPUSCULAR HGB CONC 33.7 g/dl (32.0-36.5); MEAN CORPUSCULAR VOLUME 99.5 fl (80.0-96.0); MONO # 0.5 K/mm3 (0.0-0.8); MONO % 5.6 % (0.0-5.0); NEUTROPHILS # 7.2 K/mm3 (1.8-7.7); NEUTROPHILS % 81.2 % (36.0-66.0); PLATELET COUNT, AUTOMATED 153 k/mm3 (150-450); RED CELL DISTRIBUTION WIDTH 14.7 % (11.5-14.5); WHITE BLOOD COUNT 8.8 K/mm3 (4.0-10.0)
[2016-09-10 06:58] LABS: ALBUMIN 2.9 GM/DL (3.2-5.2); ALBUMIN/GLOBULIN RATIO 0.78 (1.00-1.93); ALKALINE PHOSPHATASE 65 U/L (45-117); ALT/SGPT 69 U/L (12-78); ANION GAP 8 MEQ/L (8-16); AST/SGOT 26 U/L (15-37); BILIRUBIN,TOTAL 0.4 MG/DL (0.2-1.0); BLOOD UREA NITROGEN 20 MG/DL (7-18); CALCIUM LEVEL 9.2 MG/DL (8.8-10.2); CARBON DIOXIDE LEVEL 30 MEQ/L (21-32); CHLORIDE LEVEL 100 MEQ/L (98-107); CREATININE FOR GFR 1.15 MG/DL (0.70-1.30); GLOMERULAR FILTRATION RATE > 60.0 (>49); GLUCOSE, FASTING 161 MG/DL (80-110); POTASSIUM SERUM 4.1 MEQ/L (3.5-5.1); SODIUM LEVEL 138 MEQ/L (136-145); TOTAL PROTEIN 6.6 GM/DL (6.4-8.2)
[2016-09-10] MEDS: TIOTROPIUM INHALER/CAPSULE (SPIRIVA) INH SCH (08:07)
[2016-09-10] MEDS: ADVAIR HFA 115/21MCG INHALER INH SCH ×2 (08:07→19:29)
[2016-09-10] MEDS: rOPINIRole 1MG TAB PO SCH ×2 (08:51→20:50)
[2016-09-10] MEDS: OMEPRAZOLE 20 MG CAP PO SCH (08:52)
[2016-09-10] MEDS: ALLOPURINOL 300 MG TAB PO SCH (08:52)
[2016-09-10] MEDS: CARVedilol 6.25 MG TAB PO SCH ×2 (08:52→20:50)
[2016-09-10] MEDS: ASPIRIN 81 MG ENTERIC TAB PO SCH (08:52)
[2016-09-10] MEDS: FERROUS SULFATE 325MG TAB PO SCH (08:52)
[2016-09-10] MEDS: MAGNESIUM OXIDE 400 MG TAB (MAG-OX) PO SCH (08:52)
[2016-09-10] MEDS: MULTIVITAMINS/MINERALS THERAP 1 TAB PO SCH (08:52)
[2016-09-10] MEDS: HEPARIN SOD (PORCINE) 5000 UNITS/ML VIAL SQ SCH ×2 (08:53→20:55)
[2016-09-10] MEDS: CYANOCOBALAMIN 500 MCG TAB PO SCH (08:53)
[2016-09-10] MEDS: METAMUCIL (PSYLLIUM) PACKET PO SCH (08:53)
[2016-09-10] MEDS: MOXIFLOXACIN HCL 400 MG in APPROPRIATE DILUENT 1 EA IV SCH (13:20)
[2016-09-10 14:00] VITALS: BP 133/76
[2016-09-10] MEDS: GABAPENTIN 100 MG CAP PO SCH ×2 (15:40→20:50)
[2016-09-10] MEDS: SERTRALINE HCL 25 MG TABLET PO SCH (20:50)
--- NOTE | 2016-09-10 21:06 | IPN ---
DATE: 09/10/2016 Patient seen and examined. Reported lower extremity weakness seems to be improving. Does have significant uropathy. Denies any chest pain, pressure or discomfort. Respirations seems to be much improved. Denies any fever or chills. VITAL SIGNS: Temperature 98.1, pulse 81, respirations 20, blood pressure 133/76, pulse oximetry 92% on 3 liters nasal cannula. LABORATORY DATA: WBC 8.8, hemoglobin and hematocrit 13.5/40.1, platelets 153. Chemistry: Sodium 138, potassium 4.1, chloride 100, bicarbonate 60, BUN 20, creatinine 1.12. PHYSICAL EXAMINATION: GENERAL: Patient alert, comfortable, obese, in no acute distress. HEENT: Normocephalic, atraumatic. PULMONARY: Bilateral rhonchi, to be much improved. Minimal wheeze. CARDIAC: Regular rate and rhythm. Normal S1, S2. ABDOMEN: Soft, nontender. Positive bowel sounds. EXTREMITIES: No edema bilateral lower extremities. 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 Patient admitted for bilateral lower extremity weakness and recovering from recent pneumonia. PROBLEMS: 1. Bilateral lower extremity weakness. Symptoms waxing and weaning with no bowel or urinary symptoms. Paresthesia has improved. Will get MRI of the lumbosacral spine with and without gadolinium. 2. Metastatic disease. Given patient claustrophobic, we will get open MRI. Case discussed with Dr. Villalpando. Patient will need nerve conduction and EMG study as outpatient. 3. Recently treated for pneumonia. Health care assocaited. Antibiotic adjustment has been made. Patient is currently on Avelox from chronic obstructive pulmonary disease exacerbation. Continue antibiotic Avelox, based on previous culture, Prednisone taper as tolerated. Oxygen supplementation, nebulizer treatment, Advair, Spiriva. 4. Restless legs syndrome. Continue Requip. 5. History of cerebrovascular accident (CVA). Continue aspirin. 6. Hypertension. Continue beta blockers, patient on Coreg, monitor blood pressure. 7. Gastroesophageal reflux disease (GERD). Continue proton pump inhibitor (PPI). 8. Chronic kidney disease. BUN and creatinine at baseline. Continue to monitor. 9. Peripheral neuropathy. Neurontin has been added. Will monitor and adjust dose. 10. Deep vein thrombosis (DVT) prophylaxis. Heparin subcutaneously. DISPOSITION PLANNING: Pending clinical improvement, MRI, physical therapy. Patient will need outpatient neurology for EMG and nerve conduction studies.
[2016-09-10 22:00] VITALS: BP 154/82
[2016-09-11 00:06] LABS: Lyme Disease IgG/IgM Antibodie <0.91 ISR (0.00-0.90); Lyme Disease IgM Ab Quantitati <0.80 index (0.00-0.79)
[2016-09-11] MEDS: IPRATROPIUM 0.5MG/ALBUTEROL 2.5MG INH SOL UD 3ML (DUONEB)(J7620) INH SCH ×7 (00:35→23:29)
[2016-09-11 06:00] VITALS: BP 139/82
[2016-09-11 06:39] LABS: BASO % 0.4 % (0.0-1.0); EOS # 0.1 K/mm3 (0.0-0.50); EOS % 1.4 % (0.0-3.0); LARGE UNSTAINED CELL # 0.1 K/mm3 (0.0-0.4); LARGE UNSTAINED CELL % 1.4 % (0.0-4.0); MEAN CORPUSCULAR HEMOGLOBIN 32.8 pg (27.0-33.0); MEAN CORPUSCULAR HGB CONC 33.6 g/dl (32.0-36.5); MEAN CORPUSCULAR VOLUME 97.6 fl (80.0-96.0); MONO # 0.5 K/mm3 (0.0-0.8); MONO % 7.1 % (0.0-5.0); NEUTROPHILS # 5.6 K/mm3 (1.8-7.7); NEUTROPHILS % 76.6 % (36.0-66.0); PLATELET COUNT, AUTOMATED 147 k/mm3 (150-450); RED CELL DISTRIBUTION WIDTH 14.7 % (11.5-14.5); WHITE BLOOD COUNT 7.3 K/mm3 (4.0-10.0)
[2016-09-11 07:13] LABS: ALBUMIN 2.7 GM/DL (3.2-5.2); ALBUMIN/GLOBULIN RATIO 0.77 (1.00-1.93); ALKALINE PHOSPHATASE 64 U/L (45-117); ALT/SGPT 56 U/L (12-78); ANION GAP 11 MEQ/L (8-16); AST/SGOT 21 U/L (15-37); BILIRUBIN,TOTAL 0.3 MG/DL (0.2-1.0); BLOOD UREA NITROGEN 22 MG/DL (7-18); CARBON DIOXIDE LEVEL 29 MEQ/L (21-32); CHLORIDE LEVEL 98 MEQ/L (98-107); CREATININE FOR GFR 0.99 MG/DL (0.70-1.30); GLOMERULAR FILTRATION RATE > 60.0 (>49); GLUCOSE, FASTING 162 MG/DL (80-110); POTASSIUM SERUM 3.8 MEQ/L (3.5-5.1); SODIUM LEVEL 138 MEQ/L (136-145); TOTAL PROTEIN 6.2 GM/DL (6.4-8.2)
[2016-09-11] MEDS: TIOTROPIUM INHALER/CAPSULE (SPIRIVA) INH SCH (08:36)
[2016-09-11] MEDS: ADVAIR HFA 115/21MCG INHALER INH SCH ×2 (08:36→19:53)
[2016-09-11] MEDS: METAMUCIL (PSYLLIUM) PACKET PO SCH (10:49)
[2016-09-11] MEDS: GABAPENTIN 100 MG CAP PO SCH ×3 (10:50→20:40)
[2016-09-11] MEDS: rOPINIRole 1MG TAB PO SCH ×2 (10:50→20:43)
[2016-09-11] MEDS: OMEPRAZOLE 20 MG CAP PO SCH (10:50)
[2016-09-11] MEDS: ALLOPURINOL 300 MG TAB PO SCH (10:50)
[2016-09-11] MEDS: MOXIFLOXACIN 400 MG TAB PO SCH (10:50)
[2016-09-11] MEDS: MULTIVITAMINS/MINERALS THERAP 1 TAB PO SCH (10:51)
[2016-09-11] MEDS: FERROUS SULFATE 325MG TAB PO SCH (10:51)
[2016-09-11] MEDS: CYANOCOBALAMIN 500 MCG TAB PO SCH (10:51)
[2016-09-11] MEDS: MAGNESIUM OXIDE 400 MG TAB (MAG-OX) PO SCH (10:51)
[2016-09-11] MEDS: CARVedilol 6.25 MG TAB PO SCH ×2 (10:51→20:43)
[2016-09-11] MEDS: ASPIRIN 81 MG ENTERIC TAB PO SCH (10:52)
[2016-09-11] MEDS: HEPARIN SOD (PORCINE) 5000 UNITS/ML VIAL SQ SCH ×2 (10:52→20:44)
[2016-09-11 14:00] VITALS: BP 122/59
[2016-09-11] MEDS: SERTRALINE HCL 25 MG TABLET PO SCH (20:40)
--- NOTE | 2016-09-11 21:11 | IPN ---
DATE: 09/11/2016 Patient seen and examined. No acute events overnight. Reported respiration much improved. Denies any chest pain, pressure or discomfort. Lower extremity weakness is also improved, but does not believe that he is back at baseline. Patient is tolerating oral. Denies any chest pain, shortness of breath, fevers or chills. VITAL SIGNS: Temperature 97.4, pulse 80, respirations 18, blood pressure 122/59, pulse oximetry is 97% on 3 liters nasal cannula. LABORATORY DATA: WBC 7.3, hemoglobin and hematocrit 12.9 over 38.3, platelets 147. Chemistry: Sodium 138, potassium 3.8, chloride 98, bicarbonate 29, BUN 22, creatinine 0.99. PHYSICAL EXAMINATION: GENERAL: Patient alert, comfortable, obese, in no acute distress. HEENT: Normocephalic, atraumatic. PULMONARY: Minimal rhonchi. No wheeze. CARDIAC: Regular rate and rhythm. Normal S1, S2. ABDOMEN: Soft, nontender, positive bowel sounds. EXTREMITIES: No edema bilateral lower extremities. ASSESSMENT AND PLAN: This is a 65-year-old male patient with underlying medical history of emphysema, left lower lobe pneumonia recently, chronic obstructive pulmonary disease (COPD), obstructive sleep apnea, on continuous positive airway pressure (CPAP), gastroesophageal reflux disease (GERD), hypertension, chronic kidney disease, history of liposarcoma with partial colon and kidney and right adrenal gland resection, history of stage IA left upper lobe moderately poorly-differentiated squamous cell lung cancer and right lower lobe stage 1A lung cancer squamous cell carcinoma with well-differentiated morphology, history of torsades de pointes, which has resolved. Patient admitted with bilateral lower extremity weakness and recovering from recent pneumonia. Problems: 1. Bilateral lower extremity weakness, symptoms waxing and waning with no bowel or urinary symptoms. Paresthesia has improved. MRI of the lumbosacral and thoracic spine with and without Gadolinium to rule out metastatic disease. Given the patient was claustrophobic, would need open MRI. Case discussed with Dr. Villalpando. Patient will need further workup as an outpatient in terms of nerve conduction and EMG studies. 2. Recently treated for pneumonia, healthcare associated. Antibiotic adjustment has been made. Patient currently on Avelox. 3. Underlying COPD exacerbation. Currently does not have any wheeze. Continue Avelox based on previous culture. Off steroids. Oxygen supplementation, nebulizer treatment, Advair, Spiriva. 4. Restless legs. Continue Requip. 5. History of cerebrovascular accident (CVA). Continue aspirin. 6. Hypertension. Continue beta owen, Coreg, monitor blood pressure. 7. Gastroesophageal reflux disease (GERD). Continue proton pump inhibitor (PPI). 8. Chronic kidney disease. BUN and creatinine much better than baseline. 9. Peripheral neuropathy. Neurontin has been added. Adjustment of dosage as needed. 10. Deep vein thrombosis (DVT) prophylaxis. Heparin subcutaneously. DISPOSITION PLANNING: Pending MRI, physical therapy, will need outpatient EMG and nerve conduction study by neurology.
[2016-09-11 22:00] VITALS: BP 122/70
[2016-09-12] MEDS: IPRATROPIUM 0.5MG/ALBUTEROL 2.5MG INH SOL UD 3ML (DUONEB)(J7620) INH SCH ×6 (04:59→23:04)
[2016-09-12] MEDS: MOXIFLOXACIN 400 MG TAB PO SCH (05:27)
[2016-09-12 06:00] VITALS: BP 101/64
[2016-09-12 06:39] LABS: BASO % 0.5 % (0.0-1.0); EOS # 0.1 K/mm3 (0.0-0.50); EOS % 1.7 % (0.0-3.0); LARGE UNSTAINED CELL # 0.1 K/mm3 (0.0-0.4); LARGE UNSTAINED CELL % 1.9 % (0.0-4.0); LYMPH % 14.7 % (24.0-44.0); MEAN CORPUSCULAR HGB CONC 33.7 g/dl (32.0-36.5); MONO # 0.4 K/mm3 (0.0-0.8); MONO % 6.6 % (0.0-5.0); NEUTROPHILS # 4.7 K/mm3 (1.8-7.7); NEUTROPHILS % 74.7 % (36.0-66.0); PLATELET COUNT, AUTOMATED 164 k/mm3 (150-450); RED CELL DISTRIBUTION WIDTH 14.7 % (11.5-14.5); WHITE BLOOD COUNT 6.2 K/mm3 (4.0-10.0)
[2016-09-12 07:08] LABS: ALBUMIN 2.9 GM/DL (3.2-5.2); ALBUMIN/GLOBULIN RATIO 0.83 (1.00-1.93); ALKALINE PHOSPHATASE 62 U/L (45-117); ALT/SGPT 56 U/L (12-78); ANION GAP 9 MEQ/L (8-16); AST/SGOT 26 U/L (15-37); BILIRUBIN,TOTAL 0.3 MG/DL (0.2-1.0); BLOOD UREA NITROGEN 23 MG/DL (7-18); CALCIUM LEVEL 9.3 MG/DL (8.8-10.2); CARBON DIOXIDE LEVEL 29 MEQ/L (21-32); CHLORIDE LEVEL 99 MEQ/L (98-107); CREATININE FOR GFR 1.09 MG/DL (0.70-1.30); GLOMERULAR FILTRATION RATE > 60.0 (>49); GLUCOSE, FASTING 157 MG/DL (80-110); POTASSIUM SERUM 3.9 MEQ/L (3.5-5.1); SODIUM LEVEL 137 MEQ/L (136-145); TOTAL PROTEIN 6.4 GM/DL (6.4-8.2)
[2016-09-12] MEDS: ADVAIR HFA 115/21MCG INHALER INH SCH ×2 (07:51→19:19)
[2016-09-12] MEDS: TIOTROPIUM INHALER/CAPSULE (SPIRIVA) INH SCH (07:51)
[2016-09-12] MEDS: HEPARIN SOD (PORCINE) 5000 UNITS/ML VIAL SQ SCH ×2 (09:31→20:31)
[2016-09-12] MEDS: METAMUCIL (PSYLLIUM) PACKET PO SCH (09:31)
[2016-09-12] MEDS: rOPINIRole 1MG TAB PO SCH ×2 (09:31→20:30)
[2016-09-12] MEDS: FERROUS SULFATE 325MG TAB PO SCH (09:31)
[2016-09-12] MEDS: MULTIVITAMINS/MINERALS THERAP 1 TAB PO SCH (09:32)
[2016-09-12] MEDS: CYANOCOBALAMIN 500 MCG TAB PO SCH (09:32)
[2016-09-12] MEDS: ALLOPURINOL 300 MG TAB PO SCH (09:32)
[2016-09-12] MEDS: ASPIRIN 81 MG ENTERIC TAB PO SCH (09:32)
[2016-09-12] MEDS: CARVedilol 6.25 MG TAB PO SCH ×2 (09:32→20:31)
[2016-09-12] MEDS: GABAPENTIN 100 MG CAP PO SCH ×3 (09:32→20:30)
[2016-09-12] MEDS: OMEPRAZOLE 20 MG CAP PO SCH (09:32)
[2016-09-12] MEDS: MAGNESIUM OXIDE 400 MG TAB (MAG-OX) PO SCH (09:32)
[2016-09-12 14:45] VITALS: BP 108/64
--- NOTE | 2016-09-12 15:16 | REP ---
MR LUMBAR SPINE WITHOUT AND WITH CONTRAST: HISTORY: Leg weakness. CONTRAST: ProHance 20 mL. A small central disc protrusion is present at the T1-2 level. There is minimal deformity of the spinal cord. The T1 neural foramina are patent. A small central disc protrusion is present at the T2-3 level. There is minimal effacement of the thecal sac without spinal cord compression. The T2 neural foramina are patent. A small central disc protrusion is present at the T7-8 level. There is minimal effacement of the thecal sac without spinal cord compression. The T7 neural foramina are patent. A disc bulge is present at the T8-9 level. There is minimal effacement of the thecal sac without spinal cord compression. The T8 neural foramina are patent. A disc bulge is present at the T11-12 level. There is minimal effacement of the thecal sac without spinal cord compression. The T11 neural foramina are patent. There is no other disc bulge or herniation. The remaining neural foramina are patent. The spinal cord is normal in signal intensity. There is no abnormal enhancement. A hemangioma is present in the T9 vertebral body. Increased signal intensity on T2-weighted images is present at the endplates of several mid and lower thoracic vertebral bodies. There is an old compression fracture of the T6 vertebral body with minimal height loss. IMPRESSION: 1. Small disc protrusions at the T1-2, T2-3, and T7-8 levels without spinal cord compression. 2. Disc bulges at the T8-9 and T11-12 levels without spinal cord compression. Signed by Jonh Herrera MD 09/12/2016 04:08 P
--- NOTE | 2016-09-12 15:26 | REP ---
MR LUMBAR SPINE WITHOUT AND WITH CONTRAST: HISTORY: Lower extremity weakness. CONTRAST: ProHance 20 mL. COMPARISON: 07/11/2016 Decreased signal intensity on T2-weighted images is present in the lumbar intervertebral discs. The discs are decreased in height. These findings are consistent with disc degeneration. A diffuse disc bulge is present at the L1-2 level. There is an increase in the amount of epidural fat. There is minimal compression of the thecal sac. There is hypertrophy of the posterior articulating facets. The L1 nerves exit the neural foramina without compression. A diffuse disc bulge and small right paracentral and intraforaminal disc protrusion are present at the L2-3 level. There is an increase in the amount of epidural fat. There is mild compression of the thecal sac and right L3 nerve as it exits the thecal sac. There is hypertrophy of the posterior articulating facets. The L2 nerves exit the neural foramina without compression. A diffuse disc bulge is present at the L3-4 level. There is an increase in the amount of epidural fat. There is minimal compression of the thecal sac. There is hypertrophy of the posterior articulating facets. The L3 nerves exit the neural foramina without compression. A diffuse disc bulge is present at the L4-5 level. There is an increase in the amount of epidural fat. There is minimal compression of the thecal sac. There is hypertrophy of the posterior articulating facets. There is compression of the L4 nerves in the neural foramina. A diffuse disc bulge is present at the L5-S1 level. There is an increase in the amount of epidural fat. There is mild compression of the thecal sac. There is hypertrophy of the posterior articulating facets. The L5 nerves exit the neural foramina without compression. There is partial sacralization of the L5 vertebral body. The conus medullaris is normal in appearance terminating at the level of the T12-L1 intervertebral disc. Normal signal intensity is present in the lumbar vertebral bodies. IMPRESSION: 1. Diffuse disc bulges and epidural lipomatosis at the L1-2, L3-4, and L4-5 levels with minimal thecal sac compression. 2. Diffuse disc bulge, small disc protrusion, and epidural lipomatosis at the L2-3 level with mild thecal sac compression. 3. Diffuse disc bulge and epidural lipomatosis at the L5-S1 level with mild thecal sac compression. There is no significant change compared to the previous study. Signed by Jonh Herrera MD 09/12/2016 04:09 P
[2016-09-12] MEDS: SERTRALINE HCL 25 MG TABLET PO SCH (20:30)
[2016-09-12] MEDS: ACETAMINOPHEN 500 MG TAB PO PRN (20:32)
[2016-09-12 22:00] VITALS: BP 143/93
--- NOTE | 2016-09-12 22:04 | IPN ---
DATE: 09/12/2016 SUBJECTIVE: Patient seen and examined. Reported bilateral lower extremity weakness has improved. The patient has underlying neuropathy. Denies any fevers, chills, chest pain, pressure or discomfort. Reported cough has improved and shortness of breath has resolved. VITAL SIGNS: Temperature 97.3, pulse 86, respirations 18, blood pressure 108/64, pulse oximetry 94% on three liters nasal cannula. LABORATORY DATA: WBC 6.2, hemoglobin and hematocrit 12.8 over 38, platelets 164. Chemistry: Sodium 137, potassium 3.9, chloride 99, bicarbonate 29, BUN 23, creatinine 1.09. PHYSICAL EXAMINATION: GENERAL: Patient alert, comfortable, obese in no acute distress. HEENT: Normocephalic, atraumatic. PULMONARY: Minimal rhonchi. No wheeze. CARDIAC: Regular rate and rhythm. Normal S1, S2. ABDOMEN: Soft, nontender. Positive bowel sounds. EXTREMITIES: No edema bilateral lower extremities. ASSESSMENT AND PLAN: This is a 65-year-old male patient with underlying medical history of emphysema, recently left lower lobe pneumonia, chronic obstructive pulmonary disease (COPD), obstructive sleep apnea on continuous positive airway pressure (CPAP), gastroesophageal reflux disease (GERD), hypertension, chronic kidney disease (CKD), history of liposarcoma with partial colon, kidney and right adrenal gland resection, history of stage Ia left upper lobe moderately poorly-differentiated squamous cell lung cancer and right lower lobe stage Ia lung cancer squamous cell carcinoma with well-differentiated morphology, history of torsades de pointes resolved. Patient admitted for bilateral lower extremity weakness and recovering from recent pneumonia. 1. Bilateral lower extremity weakness, waxing and waning, with no bowel or urinary symptoms. Paresthesia has resolved. MRI of the lumbosacral spine and thoracic spine appreciated, within and without gadolinium with no evidence of metastasis. Case discussed with Dr. Villalpando. Patient will need further workup as outpatient in terms of nerve conduction study and electromyogram (EMG). Recently treated for pneumonia, healthcare-associated. Antibiotic adjustment has been made. Currently on Avelox. 2. Underlying chronic obstructive pulmonary disease exacerbation. Currently does not have any wheeze. Will complete course of Avelox. Off steroids. Oxygen supplementation. Nebulizer treatment. Advair, Spiriva. 3. Restless legs. Continue Requip. 4. History of cerebrovascular accident (CVA). Continue aspirin. 5. Hypertension. Continue beta blockers. On Coreg. Monitor blood pressure. 6. Gastroesophageal reflux disease. Continue proton pump inhibitor (PPI). 7. Chronic kidney disease. BUN and creatinine much better than baseline. 8. Peripheral neuropathy. Neurontin has been added. Adjustment of dose as needed. 9. Deep venous thrombosis (DVT) prophylaxis. Heparin subcutaneous. DISPOSITION PLANNING: Physical therapy the patient has passed. Likely discharge tomorrow. Patient followup with neurology for nerve conduction studies and EMG.
[2016-09-13] MEDS: IPRATROPIUM 0.5MG/ALBUTEROL 2.5MG INH SOL UD 3ML (DUONEB)(J7620) INH SCH ×6 (02:17→23:09)
[2016-09-13] MEDS: MOXIFLOXACIN 400 MG TAB PO SCH (05:40)
[2016-09-13 06:00] VITALS: BP 119/66
[2016-09-13 06:21] LABS: BASO % 0.5 % (0.0-1.0); EOS # 0.1 K/mm3 (0.0-0.50); EOS % 1.3 % (0.0-3.0); LARGE UNSTAINED CELL # 0.1 K/mm3 (0.0-0.4); LARGE UNSTAINED CELL % 1.7 % (0.0-4.0); LYMPH # 0.9 K/mm3 (1.5-4.5); MEAN CORPUSCULAR HEMOGLOBIN 32.8 pg (27.0-33.0); MEAN CORPUSCULAR HGB CONC 33.2 g/dl (32.0-36.5); MEAN CORPUSCULAR VOLUME 98.6 fl (80.0-96.0); MONO # 0.5 K/mm3 (0.0-0.8); MONO % 6.6 % (0.0-5.0); NEUTROPHILS # 6.4 K/mm3 (1.8-7.7); NEUTROPHILS % 78.9 % (36.0-66.0); PLATELET COUNT, AUTOMATED 174 k/mm3 (150-450); RED CELL DISTRIBUTION WIDTH 14.3 % (11.5-14.5); WHITE BLOOD COUNT 8.1 K/mm3 (4.0-10.0)
[2016-09-13 06:35] LABS: ALBUMIN 2.9 GM/DL (3.2-5.2); ALBUMIN/GLOBULIN RATIO 0.83 (1.00-1.93); ALKALINE PHOSPHATASE 70 U/L (45-117); ALT/SGPT 59 U/L (12-78); ANION GAP 10 MEQ/L (8-16); AST/SGOT 28 U/L (15-37); BILIRUBIN,TOTAL 0.3 MG/DL (0.2-1.0); BLOOD UREA NITROGEN 25 MG/DL (7-18); CALCIUM LEVEL 9.2 MG/DL (8.8-10.2); CARBON DIOXIDE LEVEL 29 MEQ/L (21-32); CHLORIDE LEVEL 100 MEQ/L (98-107); CREATININE FOR GFR 1.14 MG/DL (0.70-1.30); GLOMERULAR FILTRATION RATE > 60.0 (>49); GLUCOSE, FASTING 163 MG/DL (80-110); POTASSIUM SERUM 3.8 MEQ/L (3.5-5.1); SODIUM LEVEL 139 MEQ/L (136-145); TOTAL PROTEIN 6.4 GM/DL (6.4-8.2)
[2016-09-13] MEDS: MAGNESIUM OXIDE 400 MG TAB (MAG-OX) PO SCH (08:23)
[2016-09-13] MEDS: HEPARIN SOD (PORCINE) 5000 UNITS/ML VIAL SQ SCH ×2 (08:23→20:36)
[2016-09-13] MEDS: METAMUCIL (PSYLLIUM) PACKET PO SCH (08:23)
[2016-09-13] MEDS: ALLOPURINOL 300 MG TAB PO SCH (08:23)
[2016-09-13] MEDS: CYANOCOBALAMIN 500 MCG TAB PO SCH (08:23)
[2016-09-13] MEDS: MULTIVITAMINS/MINERALS THERAP 1 TAB PO SCH (08:23)
[2016-09-13] MEDS: ASPIRIN 81 MG ENTERIC TAB PO SCH (08:23)
[2016-09-13] MEDS: FERROUS SULFATE 325MG TAB PO SCH (08:23)
[2016-09-13] MEDS: GABAPENTIN 100 MG CAP PO SCH ×3 (08:24→20:34)
[2016-09-13] MEDS: CARVedilol 6.25 MG TAB PO SCH ×2 (08:24→20:35)
[2016-09-13] MEDS: OMEPRAZOLE 20 MG CAP PO SCH (08:24)
[2016-09-13] MEDS: rOPINIRole 1MG TAB PO SCH ×2 (08:24→20:35)
[2016-09-13] MEDS: ADVAIR HFA 115/21MCG INHALER INH SCH ×2 (08:45→19:20)
[2016-09-13] MEDS: TIOTROPIUM INHALER/CAPSULE (SPIRIVA) INH SCH (08:45)
[2016-09-13] MEDS ORDERED: FUROSEMIDE 20 MG/2 ML VIAL (J1940) IV ONE (10:15)
[2016-09-13] MEDS ORDERED: FUROSEMIDE 40 MG TAB PO ONE (10:15)
--- NOTE | 2016-09-13 13:38 | REP ---
CHEST, PA AND LATERAL 09/13/2016. Comparison: 09/08/2016, 07/08/2016, 05/15/2016, 01/03/2016, and a CT chest 05/06/2016. Clinical history: Abnormal breath sounds. Findings: The two-view show basilar fibrotic changes with blunting of the left CP angle and slight elevation of the left diaphragm as on multiple prior studies . There is heavier fibrotic change in the right base with superimposed patchy atelectasis or infiltrate, increased from the fibrotic changes in the 09/08/2016 exam. There is posterior CP angle blunting on the left, unchanged, but not on the right. I see no cardiomegaly. The aorta is calcified at the arch, somewhat tortuous without aneurysm. Airway intact. There is no compression deformity in the spine. No free air. Impression: 1. Bibasilar fibrotic changes with blunting CP angle and curvilinear fibrosis at the left base with some superimposed patchy atelectasis or infiltrate on the somewhat linear fibrosis in the right base. No effusion on the right. No other acute finding. Signed by Avi Dueñas MD 09/13/2016 07:59 P
[2016-09-13 14:00] VITALS: BP 133/81
[2016-09-13 20:35] VITALS: BP 165/83
[2016-09-13] MEDS: SERTRALINE HCL 25 MG TABLET PO SCH (20:35)
[2016-09-13 22:00] VITALS: BP 141/78
--- NOTE | 2016-09-13 22:58 | IPN ---
DATE: 09/13/2016 SUBJECTIVE: Patient seen and examined. No acute events overnight. Reported slightly worsening breathing with bilateral rhonchi. Denies any chest pain, pressure or discomfort. VITAL SIGNS: Temperature 97.7, pulse 96, respirations 19, blood pressure 133/81, pulse oximetry 94% on 3 liters nasal cannula. LABORATORY DATA: WBC 8.1, hemoglobin and hematocrit 12.8 over 38.4, platelets 174. Chemistry: Sodium 139, potassium 3.8, chloride 100, bicarbonate 29, BUN 20, creatinine 1.14. PHYSICAL EXAMINATION: GENERAL: Patient alert and oriented times three, obese in no acute distress. HEENT: Normocephalic, atraumatic. PULMONARY: Minimal rhonchi slightly worse than yesterday. No wheeze. CARDIAC: Regular rate and rhythm. Normal S1, S2. ABDOMEN: Soft, nontender. Positive bowel sounds. EXTREMITIES: No edema bilateral lower extremities. ASSESSMENT AND PLAN: This is a 65-year-old male patient with underlying medical history of emphysema, recently treated for left lower lobe pneumonia, chronic obstructive pulmonary disease (COPD), obstructive sleep apnea on continuous positive airway pressure (CPAP), gastroesophageal reflux disease (GERD), hypertension, chronic kidney disease (CKD), history of liposarcoma with partial colon, kidney and right adrenal gland resection, history of stage IA left upper lobe moderately poorly-differentiated squamous cell lung cancer and right lower lobe stage IA lung cancer squamous cell carcinoma with well-differentiated morphology, history of torsades de pointes, which was resolved. Patient admitted for bilateral lower extremity weakness and recovering from recent pneumonia. 1. Bilateral lower extremity weakness, waxing and waning, with no bowel or urinary complaints. Paresthesia has resolved. MRI of the lumbosacral spine and thoracic spine appreciated, with and without gadolinium with no evidence of metastasis. Case discussed with Dr. Villalpando. Patient will need further workup as outpatient in terms of nerve conduction study and electromyogram (EMG). Recently treated for pneumonia, healthcare-associated. Antibiotic has been adjusted based on culture, continue Avelox. 2. Underlying chronic obstructive pulmonary disease exacerbation. Currently does not have any wheeze. Will complete a course of Avelox. Off steroids. Oxygen supplementation. Repeat x-ray appreciated. Nebulizer treatment. Advair, Spiriva. 3. Restless legs. Continue Requip. 4. History of cerebrovascular accident (CVA). Continue aspirin. 5. Hypertension. Continue beta blockers, Coreg. Monitor blood pressure. 6. Gastroesophageal reflux disease. Continue proton pump inhibitor (PPI). 7. Chronic kidney disease. BUN and creatinine much better than baseline. 8. Peripheral neuropathy. Neurontin dose has been increased. Dose adjustment as needed. 9. Deep venous thrombosis (DVT) prophylaxis. Heparin subcutaneous. DISPOSITION PLANNING: Physical therapy, the patient has passed. Discharge on hold given slightly worsening respirations. We will monitor overnight. One dose of Lasix has been given. Repeat chest x-ray has been ordered. We will continue to monitor.
[2016-09-14] MEDS: IPRATROPIUM 0.5MG/ALBUTEROL 2.5MG INH SOL UD 3ML (DUONEB)(J7620) INH SCH ×2 (03:13→08:00)
[2016-09-14] MEDS: MOXIFLOXACIN 400 MG TAB PO SCH (05:43)
[2016-09-14 06:00] VITALS: BP 122/69
[2016-09-14 06:14] LABS: MEAN CORPUSCULAR HEMOGLOBIN 32.5 pg (27.0-33.0); MEAN CORPUSCULAR HGB CONC 33.1 g/dl (32.0-36.5); RED CELL DISTRIBUTION WIDTH 14.4 % (11.5-14.5); WHITE BLOOD COUNT 8.3 K/mm3 (4.0-10.0)
[2016-09-14 06:31] LABS: ANION GAP 6 MEQ/L (8-16); BLOOD UREA NITROGEN 23 MG/DL (7-18); CALCIUM LEVEL 9.1 MG/DL (8.8-10.2); CARBON DIOXIDE LEVEL 32 MEQ/L (21-32); CHLORIDE LEVEL 99 MEQ/L (98-107); CREATININE FOR GFR 1.27 MG/DL (0.70-1.30); GLOMERULAR FILTRATION RATE > 60.0 (>49); GLUCOSE, FASTING 154 MG/DL (80-110); MAGNESIUM LEVEL 1.9 MG/DL (1.8-2.4); POTASSIUM SERUM 3.6 MEQ/L (3.5-5.1); SODIUM LEVEL 137 MEQ/L (136-145)
[2016-09-14] MEDS: TIOTROPIUM INHALER/CAPSULE (SPIRIVA) INH SCH (08:14)
[2016-09-14] MEDS: ADVAIR HFA 115/21MCG INHALER INH SCH (08:14)
[2016-09-14 08:53] VITALS: O2SAT 94
[2016-09-14] MEDS: GABAPENTIN 100 MG CAP PO SCH (09:19)
[2016-09-14] MEDS: FERROUS SULFATE 325MG TAB PO SCH (09:19)
[2016-09-14] MEDS: ASPIRIN 81 MG ENTERIC TAB PO SCH (09:19)
[2016-09-14] MEDS: rOPINIRole 1MG TAB PO SCH (09:19)
[2016-09-14] MEDS: CARVedilol 6.25 MG TAB PO SCH (09:20)
[2016-09-14] MEDS: MULTIVITAMINS/MINERALS THERAP 1 TAB PO SCH (09:20)
[2016-09-14] MEDS: OMEPRAZOLE 20 MG CAP PO SCH (09:20)
[2016-09-14] MEDS: ALLOPURINOL 300 MG TAB PO SCH (09:20)
[2016-09-14] MEDS: CYANOCOBALAMIN 500 MCG TAB PO SCH (09:20)
[2016-09-14] MEDS: MAGNESIUM OXIDE 400 MG TAB (MAG-OX) PO SCH (09:20)
[2016-09-14] MEDS: HEPARIN SOD (PORCINE) 5000 UNITS/ML VIAL SQ SCH (09:21)
[2016-09-14] MEDS: METAMUCIL (PSYLLIUM) PACKET PO SCH (09:21)
[2016-09-14] MEDS ORDERED: AVEL1TAB3 PO (10:22)
[2016-09-14] MEDS ORDERED: NEUR300C PO (10:22)
--- NOTE | 2016-09-14 14:40 | DSES ---
DATE OF ADMISSION: 09/09/2016 DATE OF DISCHARGE: 09/14/2016 NEUROLOGIST: Dr. Villalpando PRIMARY CARE PROVIDER: Dr. Pike SCOURER: Dr. Almeida RESIDENTIAL SALES CONSULTANT: Dr. Kimball THORACIC SURGEON: Dr. Perez FINAL DIAGNOSES: 1. Bilateral lower extremity weakness, possibly due to peripheral neuropathy, recurring from health care associated bacterial pneumonia. 2. Chronic obstructive pulmonary disease exacerbation. 3. Restless legs. 4. Peripheral neuropathy. 5. History of CVA. 6. Hypertension. 7. Gastroesophageal reflux disease. 8. Chronic kidney disease. HISTORY OF PRESENT ILLNESS: This is a 65-year-old white male with multiple medical issues. The patient has underlying squamous cell carcinoma of both lungs with partial resection bilaterally who was diagnosed with moderate poorly differentiated squamous cell carcinoma of the right lower lobe in November 2015 and also the same year was also diagnosed with differentiated squamous cell cancer of the left upper lobe and received radiation to the right lung. The patient is a long time smoker and has stopped smoking. Recently admitted with pneumonia and treated for methicillin-resistant Staphylococcus aureus (MRSA) and Pseudomonas. Patient currently completing a course of Vibramycin by Dr. Kimball. He had waxing and waning bilateral lower extremity weakness and presented with bilateral lower extremity weakness intermittent with some associated numbness. The patient was able to lift his legs against gravity. The patient sees Dr. Villalpando with concerns of symptoms being paraneoplastic syndrome. The symptoms had been intermittent and waxing and waning. Subsequently, the patient was admitted to the hospital for further workup. Physical therapy had been ordered. Given history of lung cancer, MRI with and without contrast of lumbosacral and thoracic back had been ordered. The case discussed with Dr. Villalpando. The patient will need EMG and nerve conduction studies. Antibiotic was switched to Avelox given his history of Pseudomonas pneumonia. The patient's home medications of inhalers, Spiriva, Advair and nebulizer treatment has been given. The patient currently is weaned off steroids. The patient's home medications of Requip, aspirin, blood pressure medications, and proton pump inhibitors (PPIs) have been continued. Kidney function was monitored. The patient's condition remained stable with progressive resolution of the patient's symptoms. The patient passed physical therapy. Currently is tolerating oral comfortable, in no significant distress. Oxygen supplementation was provided. The patient is ready for discharge for further care as an outpatient. VITAL SIGNS: Temperature 97.9, pulse 74, respirations 19, blood pressure 122/69, and pulse oximetry 94% on 2 liters nasal cannula. GENERAL: The patient is obese, alert and oriented times three, in no acute distress. HEENT: Normocephalic, atraumatic. PULMONARY: Distant breath sounds. No significant wheeze. CARDIAC: Regular rate and rhythm. Normal S1, S2. ABDOMEN: Soft. Nontender. Positive bowel sounds. EXTREMITIES: No edema of bilateral lower extremities. LABORATORY: WBC 8.3, hemoglobin/hematocrit 12.2/36.7, and platelets 163. Chemistry with sodium 137, potassium 2.6, chloride 99, bicarbonate 32, BUN 23, creatinine 1.23. DISCHARGE MEDICATIONS: - gabapentin 300 mg by mouth three times a day - moxifloxacin 400 mg by mouth daily for four tablets HOME MEDICATIONS: - acetaminophen 1000 mg by mouth every 6 hours as needed - Ventolin inhalers four times a day as needed - albuterol nebulizers every 2 hours as needed - DuoNebs every 4 hours as needed - Allopurinol 300 mg by mouth daily - ammonia 12% external at bedtime - aspirin 81 mg by mouth daily - Coreg 6.25 mg by mouth twice a day - vitamin B12 500 mcg by mouth daily - ferrous sulfate 325 mg by mouth daily - Breo inhalation daily - hydroxyzine 50 mg by mouth twice a day as needed - magnesium oxide 400 mg by mouth daily - multivitamin one tablet by mouth daily - omeprazole 20 mg by mouth daily - pravastatin 20 mg by mouth daily - Metamucil 0.52 grams by mouth daily - Requip 1 mg by mouth daily and 2 mg by mouth at bedtime - Sertraline 25 mg by mouth at bedtime - Spiriva inhalation daily DISCHARGE INSTRUCTIONS: Patient is instructed to follow up with his primary care provider in 7 days, propulsion generator repairer in 10-14 days, and neurologist in 10 days for possible EMG and nerve conduction studies. Return to the hospital if symptoms worsen.
== END 2016-09-14 12:20 | disposition home health service (06) | DRG 74 ==
LOC: EDBD 19:43 → M ED 19:43 → M ED INP 09-09 00:16 → M MSPAV 09-09 01:23
PROVIDERS: ATTEND Hospitalist
DX: G62.89 Other specified polyneuropathies (principal); J44.1 Chronic obstructive pulmonary disease with (acute) exacerbation; Z68.41 Body mass index [BMI] 40.0-44.9, adult; G47.33 Obstructive sleep apnea (adult) (pediatric); I87.2 Venous insufficiency (chronic) (peripheral); E78.5 Hyperlipidemia, unspecified; E66.01 Morbid (severe) obesity due to excess calories; B35.3 Tinea pedis; M10.9 Gout, unspecified; M62.81 Muscle weakness (generalized); K21.9 Gastro-esophageal reflux disease without esophagitis; R53.1 Weakness; N18.9 Chronic kidney disease, unspecified; G25.81 Restless legs syndrome; I12.9 Hypertensive chronic kidney disease with stage 1 through stage 4 chronic kidney disease, or unspecified chronic kidney disease; Z90.5 Acquired absence of kidney; Z85.118 Personal history of other malignant neoplasm of bronchus and lung; Z90.2 Acquired absence of lung [part of]; Z90.49 Acquired absence of other specified parts of digestive tract; Z87.891 Personal history of nicotine dependence; Z79.82 Long term (current) use of aspirin; Z88.8 Allergy status to other drugs, medicaments and biological substances; Z79.899 Other long term (current) drug therapy; Z79.51 Long term (current) use of inhaled steroids; Z86.73 Personal history of transient ischemic attack (TIA), and cerebral infarction without residual deficits; Z86.14 Personal history of Methicillin resistant Staphylococcus aureus infection; Z87.01 Personal history of pneumonia (recurrent)

== ENCOUNTER → 2016-09-16 | Outpatient (CLI) | payer MEDICARE, MEDICAID ==
[~2016-09-16] MED LIST changes: +AMMO12CR4 TOP; +AVEL1TAB3 PO; +CENTTAB16 PO; +CYCL10TA PO; +DOXY100C PO; +GABA-282 PO; +LEVA750T7 PO; +LEVO750T13 PO; +META0.52 PO; +NEUR300C PO; +PRIL20CA9 PO; +SERT25TA88 PO; +TRAM1CAP16 PO; +VITA-193 PO
--- NOTE | 2016-09-16 12:39 | RADONC ---
RADIATION ONCOLOGY FOLLOWUP NOTE: DATE: 09/16/2016 CHART NUMBER: [id number] DIAGNOSIS: Soft tissue sarcoma. STAGE: I B, [id number]. ECOG PERFORMANCE STATUS: 1 Mr. 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 The patient reports that this is been going on for at least since May. Apparently he has been under the workup of the neurologists as well as his other physicians. MRIs were done of the lumbar thoracic and cervical spine on 09/12/2016, which show multiple areas of disc bulging and other issues, but no evidence of metastatic malignancy. Indeed I tried to contact the patient sooner at home to cancel this appointment letting him know that I see no evidence of malignancy and there is nothing for us to treat at this point. REVIEW OF SYSTEMS: The patient's review of systems is positive for weakness and some instability of gait and shortness of breath but is otherwise generally noncontributory. He is having no nausea, vomiting, fevers, chills, night sweats , diplopia, headaches, anxiety, urinary or bowel difficulties. He does have some mid back bone pain. PHYSICAL EXAMINATION: The patient is an obese white male in no acute distress. Physical exam was deferred at this time. ASSESSMENT: I have given the patient and his daughter copies of the MRI report. I was unaware when they came in that they are being cared for by neurology at this time and have had multiple different consultations. I explained to them that there is no malignancy at this time and therefore nothing for me to treat. Indeed this is outside my scope of practice. I have recommended that they follow the instructions of their physicians. When the daughter expressed concern and wanted a second opinion in [place]. I reassured her that I have confidence in his treating physicians. I am certain that they wouldn't mind a second opinion. In light of the fact that we are not dealing with malignant issues and I have never treated this patient, I have discharged him once again from our followup. If there is something for us to do, his referring physicians will refer him back to me and I would be more than glad to treat him. Sincerely, cc: MD Teddy Handley, MD Romero Velazquez, DO FCCP MD Donna Rogers, DO [facility]
== END ==
LOC: M ONCR 10:50
PROVIDERS: ATTEND Radiology Radiation Oncology
DX: M51.36 Other intervertebral disc degeneration, lumbar region (principal)

== ENCOUNTER 2016-09-23 19:38 | Emergency (ER) | payer MEDICARE, MEDICAID ==
[~2016-09-23] VITALS: Ht 193 cm; Wt 148.2 kg
[~2016-09-23 19:38] MED LIST changes: -CYCL10TA PO; -GABA-282 PO; -LEVA750T7 PO; -LEVO750T13 PO; -PRIL20CA9 PO; -TRAM1CAP16 PO
[2016-09-23] MEDS ORDERED: KETOROLAC 30 MG/ML VIAL (J1885) IV ONE (20:00)
[2016-09-23 20:37] LABS: MEAN CORPUSCULAR HEMOGLOBIN 33.7 pg (27.0-33.0); MEAN CORPUSCULAR HGB CONC 34.4 g/dl (32.0-36.5); MEAN CORPUSCULAR VOLUME 97.8 fl (80.0-96.0); RED CELL DISTRIBUTION WIDTH 14.9 % (11.5-14.5); WHITE BLOOD COUNT 6.4 K/mm3 (4.0-10.0)
[2016-09-23 20:53] LABS: CALCIUM LEVEL 8.1 MG/DL (8.8-10.2); CREATININE FOR GFR 1.71 MG/DL (0.70-1.30); GLOMERULAR FILTRATION RATE 43.3 (>49)
[2016-09-23] MEDS ORDERED: NORCO 5/325MG TABLET (BULK FOR ED) PO ONE (21:15)
[2016-09-23] MEDS ORDERED: TRAM1CAP16 PO (21:16)
[2016-09-23] MEDS ORDERED: CYCL10TA PO (21:16)
[2016-09-23 21:47] VITALS: BP 115/59
== END 2016-09-23 22:02 | disposition home or self-care (01) ==
LOC: M ED 19:38 → EDBD 19:38 → M ED 22:02
DX: M54.12 Radiculopathy, cervical region (principal); M54.14 Radiculopathy, thoracic region; M54.16 Radiculopathy, lumbar region; R07.9 Chest pain, unspecified; J45.909 Unspecified asthma, uncomplicated; K21.9 Gastro-esophageal reflux disease without esophagitis; G89.29 Other chronic pain; Z79.899 Other long term (current) drug therapy; Z79.82 Long term (current) use of aspirin; Z79.51 Long term (current) use of inhaled steroids; Z88.8 Allergy status to other drugs, medicaments and biological substances

== ENCOUNTER 2016-09-25 22:27 | Observation (INO) | payer MEDICARE, MEDICAID ==
[~2016-09-25] VITALS: Ht 193 cm; Wt 152.9 kg
[~2016-09-25 22:27] MED LIST changes: +CYCL10TA PO; +TRAM1CAP16 PO
[2016-09-25] MEDS ORDERED: PRIL20CA9 PO (22:55)
[2016-09-26 00:13] LABS: BASO % 0.5 % (0.0-1.0); EOS # 0.2 K/mm3 (0.0-0.50); EOS % 2.7 % (0.0-3.0); LARGE UNSTAINED CELL # 0.2 K/mm3 (0.0-0.4); LARGE UNSTAINED CELL % 2.1 % (0.0-4.0); LYMPH # 1.2 K/mm3 (1.5-4.5); LYMPH % 12.2 % (24.0-44.0); MEAN CORPUSCULAR HEMOGLOBIN 32.3 pg (27.0-33.0); MEAN CORPUSCULAR HGB CONC 32.8 g/dl (32.0-36.5); MEAN CORPUSCULAR VOLUME 98.3 fl (80.0-96.0); MONO # 0.5 K/mm3 (0.0-0.8); NEUTROPHILS # 6.2 K/mm3 (1.8-7.7); NEUTROPHILS % 76.6 % (36.0-66.0); PLATELET COUNT, AUTOMATED 210 k/mm3 (150-450); RED CELL DISTRIBUTION WIDTH 15.1 % (11.5-14.5); WHITE BLOOD COUNT 8.1 K/mm3 (4.0-10.0)
[2016-09-26 00:38] LABS: ANION GAP 5 MEQ/L (8-16); BLOOD UREA NITROGEN 16 MG/DL (7-18); CALCIUM LEVEL 8.9 MG/DL (8.8-10.2); CARBON DIOXIDE LEVEL 31 MEQ/L (21-32); CHLORIDE LEVEL 103 MEQ/L (98-107); CREATININE FOR GFR 1.18 MG/DL (0.70-1.30); GLOMERULAR FILTRATION RATE > 60.0 (>49); GLUCOSE, FASTING 140 MG/DL (80-110); SODIUM LEVEL 139 MEQ/L (136-145)
--- NOTE | 2016-09-26 00:50 | REPUSA ---
CLINICAL HISTORY: Decreased urine output. TECHNIQUE: Realtime sonographic images were obtained in multiple projections. COMMENTS: The right kidney surgically absent and the left kidney measures 15.4x6.7x7.8 cm. the left kidney is f ree of hydronephrosis. There is no evidence of solid or cystic mass. There is no perinephric fluid. T here is no renal calculus. IMPRESSION: Right nephrectomy. Unremarkable left kidney. Thank you for your kind referral of this patient.
[2016-09-26] MEDS ORDERED: ROPI1TAB PO (02:56)
[2016-09-26] MEDS ORDERED: GABA-282 PO (02:56)
--- NOTE | 2016-09-26 03:10 | REPUSA ---
CLINICAL HISTORY: Abdominal pain. TECHNIQUE: Multiple axial, sagittal and coronal CT images were obtained through the abdomen and pelvi s without administration of oral or IV contrast material. COMMENTS: Comparison to prior exam performed on 02/11/2016. Basilar atelectatic pulmonary changes. There is bilateral peribronchial interstitial thickening suggestive of bronchitis. Groundglass densities in the right lower lobe. Centrilobular nodules in the left lower lobe. Moderate hepatomegaly with fatty infiltration. Partial colectomy. Right nephrectomy. Right adrenalectomy. Mild fecal stasis. Multiple foci of chronic fat necrosis in the right lower quadrant with the largest measuring 4.3 cm. Mild prostatomegaly. Mildly thickened bladder. Left perinephric fat stranding. Anterior abdominal wall panniculitis. There is no intra or extrahepatic biliary ductal dilatation. The spleen is normal. The pancreas is o f normal contour and attenuation characteristics. There is no evidence of adrenal mass. No renal or ureteral calculi are identified. There is no hydroureter or hydronephrosis. There is no evidence for appendicitis. There is no bowel wall thickening. No evidence for small or la rge bowel obstruction. There is no evidence of abdominal ascites or lymphadenopathy. There is no evidence of intrinsic or extrinsic bladder mass. There is no pelvic ascites or lymphadeno kirsty. Images of the lung bases show no evidence of pleural or parenchymal mass. There are no pleural effusi ons. The bony structures are free of lytic or blastic lesions. Multilevel degenerative changes are seen in volving the thoracolumbar spine. Scattered calcifications are seen involving the aorta and major branches compatible with atherosclero sis. IMPRESSION: Basilar atelectatic pulmonary changes. There is bilateral peribronchial interstitial thickening suggestive of bronchitis. Groundglass densities in the right lower lobe. Centrilobular nodules in the left lower lobe. Moderate hepatomegaly with fatty infiltration. Partial colectomy. Right nephrectomy. Right adrenalectomy. Mild fecal stasis. Multiple foci of chronic fat necrosis in the right lower quadrant with the largest measuring 4.3 cm. Mild prostatomegaly. Mildly thickened bladder. Left perinephric fat stranding. Anterior abdominal wall panniculitis. Thank you for your kind referral of this patient.
[2016-09-26] MEDS ORDERED: ONDANSETRON 4MG/2ML VIAL (J2405) IV PRN (03:45)
[2016-09-26] MEDS ORDERED: ACETAMINOPHEN TAB 650MG DOSE (2X325MG) PO PRN (03:45)
[2016-09-26] MEDS ORDERED: hydrOXYzine 50 MG TAB PO PRN (04:30)
[2016-09-26] MEDS ORDERED: IPRATROPIUM 0.5MG/ALBUTEROL 2.5MG INH SOL UD 3ML (DUONEB)(J7620) NEB PRN (04:45)
[2016-09-26] MEDS ORDERED: LevoFLOXacin IV 500 MG in APPROPRIATE DILUENT 1 EA IV SCH (05:00)
[2016-09-26 05:28] LABS: ALBUMIN 3.1 GM/DL (3.2-5.2); ALKALINE PHOSPHATASE 63 U/L (45-117); ALT/SGPT 41 U/L (12-78); AST/SGOT 23 U/L (15-37); BILIRUBIN,DIRECT 0.1 MG/DL (0.0-0.2); BILIRUBIN,TOTAL 0.3 MG/DL (0.2-1.0); MAGNESIUM LEVEL 1.7 MG/DL (1.8-2.4); TOTAL PROTEIN 6.2 GM/DL (6.4-8.2)
[2016-09-26] MEDS ORDERED: MAG SULF 1GM/100ML (MAG RUN) 1 GM in APPROPRIATE DILUENT 1 EA IV ONE (05:45)
[2016-09-26 06:00] VITALS: BP 156/89
[2016-09-26] MEDS: methylPREDNISolone INJ 125 MG/2 ML VIAL (J2930) IV SCH ×2 (06:08→15:18)
[2016-09-26] MEDS: HEPARIN SOD (PORCINE) 5000 UNITS/ML VIAL SC SCH ×2 (06:09→15:19)
[2016-09-26 06:57] LABS: BASO % 0.6 % (0.0-1.0); EOS # 0.2 K/mm3 (0.0-0.50); EOS % 2.6 % (0.0-3.0); LARGE UNSTAINED CELL # 0.1 K/mm3 (0.0-0.4); LARGE UNSTAINED CELL % 1.8 % (0.0-4.0); LYMPH # 1.1 K/mm3 (1.5-4.5); LYMPH % 12.6 % (24.0-44.0); MEAN CORPUSCULAR HEMOGLOBIN 32.9 pg (27.0-33.0); MEAN CORPUSCULAR HGB CONC 33.5 g/dl (32.0-36.5); MEAN CORPUSCULAR VOLUME 98.2 fl (80.0-96.0); MONO # 0.4 K/mm3 (0.0-0.8); MONO % 5.8 % (0.0-5.0); NEUTROPHILS # 5.8 K/mm3 (1.8-7.7); NEUTROPHILS % 76.6 % (36.0-66.0); PLATELET COUNT, AUTOMATED 230 k/mm3 (150-450); RED CELL DISTRIBUTION WIDTH 14.9 % (11.5-14.5); WHITE BLOOD COUNT 7.6 K/mm3 (4.0-10.0)
[2016-09-26 07:14] LABS: ANION GAP 8 MEQ/L (8-16); BLOOD UREA NITROGEN 15 MG/DL (7-18); CALCIUM LEVEL 9.3 MG/DL (8.8-10.2); CARBON DIOXIDE LEVEL 31 MEQ/L (21-32); CHLORIDE LEVEL 102 MEQ/L (98-107); CREATININE FOR GFR 1.17 MG/DL (0.70-1.30); GLOMERULAR FILTRATION RATE > 60.0 (>49); GLUCOSE, FASTING 148 MG/DL (80-110); SODIUM LEVEL 141 MEQ/L (136-145)
[2016-09-26] MEDS: IPRATROPIUM 0.5MG/ALBUTEROL 2.5MG INH SOL UD 3ML (DUONEB)(J7620) NEB SCH ×2 (07:26→13:54)
--- NOTE | 2016-09-26 07:31 | HPE ---
DATE OF ADMISSION: 09/26/2016 TIME PATIENT WAS SEEN: 3:00 a.m. PRIMARY CARE PROVIDER: Dr. Pike NEUROLOGIST: Dr. Villalpando PRIZE JACKER: Dr. Almeida ARCHERY EQUIPMENT HAY SORTER: Dr. Kimball THORACIC SURGEON: Dr. Perez CHIEF COMPLAINT: Increased coughing, sputum production and also urinary retention. CODE STATUS: The patient's daughter is making decisions for him, however. HISTORY OF PRESENT ILLNESS: The patient is a 65-year-old male with multiple comorbidities, most significantly chronic obstructive pulmonary disease (COPD), emphysema, on 3 liters of oxygen at night, status post bilateral lobe resection due to stage I A squamous cell lung cancer, and also history of chronic kidney disease insufficiency and only has one kidney, status post partial, colon, right kidney and right adrenal gland resection due to liposarcoma, hypertension, gout, and sleep apnea on CPAP at night who presented with could not urinate since 2:00 p.m. yesterday. The patient had a straight catheter around 10:00 p.m. yesterday and produced roughly 350 mL of urine. The patient presented to the emergency room immediately when he could not urinate due to he only has one kidney. Otherwise, the patient admits to chills, admits to increased sputum production, admits to yellowish sputum which is worsen than normal, and the patient also stated that he has increased shortness of breath and had some chest tightness. The patient also admits to some abdominal pain, especially at the epigastric region and left lower quadrant; however, denies any nausea or vomiting. Denies any diarrhea or constipation. Denies any recent traveling or sick contact. The patient is scheduled to see a neurosurgeon however due to pinched nerves in the neck region per patient. The patient also complained of left shoulder pain which has been going on for roughly one week. ALLERGIES: - HEXACHLOROPHENE (rash) HOME MEDICATIONS: - acetaminophen 1000 mg one tablet by mouth every 6 hours as needed - albuterol sulfate 2 puffs inhalation four times a day as needed - ammonia lactate 12% cream externally daily - aspirin 81 mg by mouth daily - carvedilol 6.25 mg one tablet by mouth twice a day - vitamin V12 500 mcg by mouth daily - ferrous sulfate 325 mg one tablet by mouth daily - Breo Ellipta 225 mcg inhalation 1 puff inhalation daily - gabapentin 300 mg one tablet by mouth three times a day - hydroxyzine 50 mg one tablet by mouth every 12 hours as needed - magnesium oxide 400 mg one tablet by mouth daily - multivitamin one tablet by mouth daily - omeprazole 20 mg one tablet by mouth daily - pravastatin 20 mg one tablet by mouth daily - Psyllium 0.52 grams by mouth daily - ropinirole 1 mg by mouth daily - ropinirole 2 mg by mouth at bedtime - sertraline 25 mg one tablet by mouth at bedtime - Spiriva inhalation daily PAST MEDICAL HISTORY: 1. COPD and emphysema, on 3 liters of oxygen at night. 2. History of pneumonia. 3. Obstructive sleep apnea, on CPAP at night. 4. Gout. 5. Hypertension. 6. Chronic kidney disease, follows with Dr. Almeida, only has one kidney. 7. History of liposarcoma, status post partial colon, right kidney and right adrenal gland resection. 8. Stage I A cancer of the bilateral lungs, status post resection. 9. T[place] de Pointes. 10. Morbid obesity. 11. Recent extremity weakness, follows with Dr. Villalpando. PAST SURGICAL HISTORY: 1. Liposarcoma with resection of right kidney, right adrenal gland and also part of colon. 2. Right lower lobe radiation. 3. Left upper lobectomy secondary to lung cancer. 4. Fusion of left ankle. 5. Cholecystectomy. 6. Tonsillectomy. 7. Status post chest tube removal. SOCIAL HISTORY: The patient denies any smoking, quit 3 years ago, used to smoke one half pack per day for 50 years. Denies any drinking or recreational drug use. The patient lives alone and has one cat. The patient has children who come to visit him frequently. FAMILY HISTORY: The patient's mother from diabetes and liver cancer. Father from emphysema and heart disease. The patient has two children who are healthy. He has two sisters who have and another sister who from amyotrophic lateral sclerosis (ALS) and Parkinson's. The patient's younger sister due to unspecified cancer. REVIEW OF SYSTEMS: GENERAL: The patient denies any weight changes or any fever. Admits to chills. Denies any recent traveling or sick contact. HEENT: Denies any changes with vision, smell, hearing, or taste. Denies any trouble swallowing. CARDIOVASCULAR: Denies any chest pain; however, admits to chest tightness intermittently and worse in the past two days. Admits to chronic shortness of breath that has been getting worse. LUNGS: Admits to significant lung history, follows with Dr. Kimball. The patient admits to increased sputum production and coughing. Sputum appeared to be yellowish. GASTROINTESTINAL (GI): Admits to abdominal pain in the epigastric region and also left lower abdominal discomfort. MUSCULOSKELETAL: Admits to chronic pain and also nerve impingement. ENDOCRINE: Denies any heat or cold intolerance. Admits to chills. HEMATOLOGY/ONCOLOGY: The patient does have a significant history for lung cancer and also liposarcoma. However, denies any ease of bleeding. Denies any bleeding anywhere currently. However, patient does admit to bruises on the abdomen due to heparin shots in the past. NEUROLOGIC: Admits to left sided weakness which has been going on for a few months. The patient has seen Dr. Villalpando and has been following up with his symptoms. PSYCHIATRIC: Admits to some anxiety and depression. PHYSICAL EXAMINATION: VITAL SIGNS: Temperature 98.9, pulse 89, respirations 20, blood pressure 138/85, oxygen satting at 93% on 3 liters of nasal cannula. GENERAL: The patient is a morbidly obese elderly male who was alert, awake and oriented times three. He does not appear to be in distress, lying comfortably in bed with the head elevated at 30 degrees. HEENT: Normocephalic, atraumatic. Extraocular muscles intact. Mucous moist. Neck supple. No neck lymphadenopathy. CARDIOVASCULAR: Regular rate and rhythm. Normal S1, S2. No murmurs; however, it was difficult to auscultate due to increased AP diameter. LUNGS: Shows diffuse wheezing and rhonchi bilaterally. ABDOMEN: Positive bowel sounds. Obese. There is ecchymosis from previous heparin injections on the abdomen. EXTREMITIES: No edema, clubbing or cyanosis. SKIN: Warm and dry. NEUROLOGIC: Cranial nerves II-XII intact. No focal neurological deficit. MUSCULOSKELETAL: The patient has tenderness to palpation at the left shoulder. LABORATORIES: WBC 8.1, hemoglobin 12.1, hematocrit 36.8 with a platelet count of 210 and MCV of 98.3. Sodium 139, potassium 4, chloride 103, bicarbonate 31, BUN 16, creatinine 1.18, GFR greater than 60, fasting glucose 140, calcium 8.9. Urinalysis shows 2+ protein. Urine culture is pending. The patient had a CT of abdomen and pelvis without IV contrast that shows basilar atelectasis, pulmonary changes of bilateral peribronchial interstitial thickening suggestive of bronchitis, ground glass density of the right lower lobe, centrally lobular nodule in the left lower lobe, moderate hepatomegaly with fatty infiltrate, partial colectomy, right nephrectomy, right adrenalectomy, mild fecal stasis, multiple foci of chronic fat necrosis at the right lower quadrant with the largest measuring 4.3 cm, mild prostatomegaly, mild thickened bladder, left perinephritic fat stranding, anterior abdominal wall panniculitis. Yesterday, the patient also had a renal ultrasound that shows right nephrectomy and unremarkable left kidney. ASSESSMENT AND PLAN: 65-year-old male with multiple comorbidities, most significantly for history of CVA, severe emphysema and COPD on 3 liters of oxygen at night, status post resection of lungs bilaterally due to squamous cell carcinoma, hypertension, chronic kidney insufficiency, the patient only has one kidney on the left side, peripheral neuropathy, and morbid obesity who presented with: 1. Urinary retention. At this point, will continue bladder scan every 4 hours and will straight cath as needed. If patient has another retention, will consider placing a Smith. Flomax has also been started, which might help to relieve the patient's symptoms. Urinalysis was negative for infection. Urine culture was ordered in the emergency room which was pending. CT of abdomen and pelvis however did show some left sided perinephritic fat stranding. Will followup. Will follow ins and outs. Currently, the patient's creatinine is normal. 2. Bacterial chronic obstructive pulmonary disease bronchitis exacerbation. The patient complained of increased sputum and increased shortness of breath. Will start patient on levofloxacin due to complicated COPD and start patient on Solu-Medrol 60 mg IV every 8 hours, Acapella, guaifenesin, and continue to monitor patient. 3. Abdominal pain in the epigastric region, possibly secondary to peptic ulcer. The patient also has history of gastroesophageal reflux disease. Continue to monitor. Will order lipase to rule out pancreatitis. However, CT of abdomen and pelvis did not mention any inflamed pancreas. 4. Left shoulder ache. Shoulder x-ray has been ordered, will followup. 5. Chest tightness with increased shortness of breath. Will obtain stat cardiac markers and an EKG. At this point, chances for cardiac etiology is on the lower side. However, the patient does have significant risk factors, including morbid obesity, hypertension and history of smoking in the past. 6. COPD and emphysema. Continue oxygen and continue DuoNebs. Also add budesonide. Due to the acute exacerbation, will hold patient's chronic inhalers for now. 7. History of hypertension. Continue home Coreg with hold parameters. 8. Peripheral neuropathy. Continue to monitor. Will have physical therapy come to evaluate him. He did have a recent admission for lower extremity weakness however and the patient stated that he has not gotten better. 9. Deep vein thrombosis (DVT) prophylaxis with heparin 5000 units subcutaneously every 8 hours. 10. Fluid, electrolyte and diet. Will start patient on low fat, low cholesterol, COPD diet. DISPOSITION: The patient presented with urinary retention. Will continue voiding trials. If needed, will place a Smith. Continue Flomax. Possibly consulting urology if patient's symptoms continue and continue to treat COPD bronchitis exacerbation with levofloxacin and IV steroid. The patient has been discussed with attending doctor, Dr. Ruff. Day time attending is Dr. Gutiérrez. My preceptor for this patient encounter was Dr. Bryson Ruff. The preceptor was physically present in the building during the encounter and was fully available. As needed, all aspects of the patient interview, examination, medical decision making process, and medical care plan development were reviewed and approved by the preceptor. The preceptor is aware and concurs with the plan as stated in the body of this note and will attest to such by his/her cosignature.
[2016-09-26] MEDS ORDERED: BUDESONIDE 180MCG INHALER (PULMICORT FLEXHALER) INH SCH (08:00)
[2016-09-26] MEDS ORDERED: TAMSULOSIN 0.4 MG CAP PO SCH (08:00)
[2016-09-26] MEDS: GABAPENTIN 300 MG CAP PO SCH ×2 (08:20→15:18)
[2016-09-26 08:21] VITALS: BP 129/80
[2016-09-26] MEDS ORDERED: SENOKOT S TAB PO SCH (09:00)
[2016-09-26] MEDS ORDERED: NYSTATIN 100,000 UNITS/GM TOPICAL PWD 15 GM TOP SCH (09:00)
[2016-09-26] MEDS ORDERED: CARVedilol 6.25 MG TAB PO SCH (09:00)
[2016-09-26] MEDS ORDERED: CYANOCOBALAMIN 500 MCG TAB PO SCH (09:00)
[2016-09-26] MEDS ORDERED: OMEPRAZOLE 20 MG CAP PO SCH (09:00)
[2016-09-26] MEDS ORDERED: PRAVASTATIN 20 MG TAB PO SCH (09:00)
[2016-09-26] MEDS ORDERED: AMMONIUM LACTATE 12% EXT SCH (09:00)
[2016-09-26] MEDS ORDERED: FERROUS SULFATE 325MG TAB PO SCH (09:00)
[2016-09-26] MEDS ORDERED: ALLOPURINOL 300 MG TAB PO SCH (09:00)
[2016-09-26] MEDS ORDERED: MULTIVITAMINS/MINERALS THERAP 1 TAB PO SCH (09:00)
[2016-09-26] MEDS ORDERED: rOPINIRole 1MG TAB PO SCH ×2 (09:00→21:00)
[2016-09-26] MEDS ORDERED: METAMUCIL (PSYLLIUM) PACKET PO SCH (09:00)
[2016-09-26] MEDS ORDERED: ASPIRIN 81 MG ENTERIC TAB PO SCH (09:00)
[2016-09-26] MEDS ORDERED: MAGNESIUM OXIDE 400 MG TAB (MAG-OX) PO SCH (09:00)
[2016-09-26] MEDS ORDERED: guaiFENesin 200 MG TAB PO SCH (09:00)
[2016-09-26] MEDS ORDERED: LEVA750T7 PO (13:42)
[2016-09-26 14:00] VITALS: BP 136/81
--- NOTE | 2016-09-26 17:58 | DSES ---
DATE OF ADMISSION: 09/26/2016 DATE OF DISCHARGE: 09/26/2016 PRIMARY PROVIDER: Dr. Pike CONSULTANTS: None. COMPLICATIONS: None. 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 When patient arrived to the emergency room, straight catheter was performed. Approximately 350 mL of urine was drained out. The patient was transferred to the medical/surgical floor. Shortly after, patient started having normal pattern of his urination. Patient did not have any worsening of breathing. Pulse oximetry was performed during rest and during exertion. Pulse oximetry was within the satisfactory range. After discussing with the patient the findings, patient was discharged home with recommendation to followup with primary care provider in 1-2 weeks. During admission, a CT of the abdomen and pelvis was performed, which does not show any abnormality in the abdominal cavity, but the lower lung field captured in the CT abdomen showed there are some atelectatic changes and findings suggestive of bronchitis, and patient was started on the initial empiric antibiotics of Levaquin. Patient does not have any elevation of white blood cell count, and patient does not have any fever or increased requirement of oxygen. After discussing with patient, patient is discharged home with a course of antibiotics. OBJECTIVE: VITAL SIGNS: Temperature is 96.4, pulse is 82, respirations 18, blood pressure is 156/89, pulse oximetry is 94% in room air. LABORATORY DATA: WBC is 7.6, hemoglobin 12.4, hematocrit 36.9 platelet count is 230. Sodium is 141, potassium 4, chloride 102, carbon dioxide 31, BUN 15, creatinine 1.17, GFR greater than 60, fasting glucose 148, calcium 9.3. C-reactive protein is 6.55. UA is negative. Microbiology: Blood cultures pending. Urine culture is pending. IMAGING STUDIES: Renal ultrasound on 09/25/[address] of the abdomen and pelvis without contrast showed bilateral atelectatic pulmonary changes. Bilateral peribronchial interstitial thickening suggestive of bronchitis. Ground-glass density in the right lower lobe. Centrilobular nodule in the left lower lobe. Mild fecal stasis. Multiple foci of chronic fat necrosis in the right lower quadrant with the largest measuring 4.3 cm. DISCHARGE MEDICATIONS: - Levaquin 750 mg by mouth daily for 5 days - Tylenol 1000 mg by mouth every 6 hours as needed - Ventolin two puff inhalation four times a day as needed - albuterol/ipratropium inhalation every 4 hours - allopurinol 300 mg by mouth daily - ammonia lactate one dose externally daily - aspirin 81 mg by mouth daily - carvedilol 6.25 mg by mouth twice a day - vitamin B12 500 mcg by mouth daily - ferrous sulfate 325 mg by mouth daily - Breo one puff inhalation daily - gabapentin 300 mg by mouth three times a day - hydroxyzine 50 mg by mouth 12 hours as needed for anxiety - magnesium oxide 400 mg by mouth daily - multivitamin one tablet by mouth daily - omeprazole 20 mg by mouth daily - pravastatin 20 mg by mouth daily - Pyridium 0.52 grams by mouth daily - ropinirole 1 mg by mouth daily - ropinirole 2 mg by mouth at bedtime - sertraline 25 mg by mouth at bedtime - Spiriva two inhalations daily DISCHARGE INSTRUCTIONS: Discontinue line. Discharge home. Activity as tolerated. Patient shall finish a course of antibiotics for his bronchitis. Patient is recommended to followup with stores despatch hand or primary care provider with regard to his lung nodules. DISCHARGE CONDITION: Stable. DISCHARGE TIME: Greater than 30 minutes.
[2016-09-26] MEDS ORDERED: SERTRALINE HCL 25 MG TABLET PO SCH (21:00)
--- NOTE | 2016-09-27 12:01 | ECGEPIP ---
Stationary ECG Study 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
== END 2016-09-26 17:53 | disposition home health service (06) ==
LOC: M ED 22:27 → M ED INP 09-26 04:17 → INTOOBSV 09-26 04:17 → M MS5PR 09-26 05:00
PROVIDERS: ADMIT Internal Medicine; ATTEND Internal Medicine
DX: R33.9 Retention of urine, unspecified (principal); J44.0 Chronic obstructive pulmonary disease with (acute) lower respiratory infection; R10.13 Epigastric pain; K21.9 Gastro-esophageal reflux disease without esophagitis; M25.512 Pain in left shoulder; R07.89 Other chest pain; R06.02 Shortness of breath; I12.9 Hypertensive chronic kidney disease with stage 1 through stage 4 chronic kidney disease, or unspecified chronic kidney disease; G62.9 Polyneuropathy, unspecified; J98.11 Atelectasis; R91.1 Solitary pulmonary nodule; R16.0 Hepatomegaly, not elsewhere classified; K76.0 Fatty (change of) liver, not elsewhere classified; N40.0 Benign prostatic hyperplasia without lower urinary tract symptoms; Z90.89 Acquired absence of other organs; Z90.5 Acquired absence of kidney; Z86.73 Personal history of transient ischemic attack (TIA), and cerebral infarction without residual deficits; Z85.118 Personal history of other malignant neoplasm of bronchus and lung; N18.9 Chronic kidney disease, unspecified; E66.01 Morbid (severe) obesity due to excess calories; G47.33 Obstructive sleep apnea (adult) (pediatric); M10.9 Gout, unspecified; I45.81 Long QT syndrome; R53.1 Weakness; M54.12 Radiculopathy, cervical region; M54.14 Radiculopathy, thoracic region; M54.16 Radiculopathy, lumbar region; Z88.3 Allergy status to other anti-infective agents; Z79.899 Other long term (current) drug therapy; Z79.82 Long term (current) use of aspirin; Z79.51 Long term (current) use of inhaled steroids; Z87.891 Personal history of nicotine dependence
CPT/HCPCS: 36415; 51701; 74176; 76775; 80048; 80076; 81001; 82550; 82553; 83690; 83735; 84484; 85025; 85027; 86140; 87040; 87086; 93005; 94640; 96372; 96374; 96375; 96376; 97161; 99284; G0378; G8978; G8979; G8980; J1885; J1956; J2930; J3360; J3475

== ENCOUNTER 2016-10-01 13:12 | Inpatient (IN) | payer MEDICARE, MEDICAID ==
[~2016-10-01] VITALS: Ht 193 cm; Wt 149.9 kg
[~2016-10-01 13:12] MED LIST changes: +GABA-282 PO; +LEVA750T7 PO; +PRIL20CA9 PO
--- NOTE | 2016-10-01 15:20 | REP ---
CT WITHOUT CONTRAST: HISTORY: CVA. COMPARISON STUDY: June 18, 2016 CT FINDINGS: Bone window settings demonstrate an intact bony calvarium. Visualized paranasal sinuses are clear. No intraorbital abnormality is seen. There is diffuse mild cerebral atrophy again noted. Mild vascular calcification is again noted. There is no evidence of intracranial hemorrhage. No acute infarction is seen. IMPRESSION: Vascular calcification and mild diffuse atrophy. No evidence of hemorrhage, infarct, or mass. Signed by Irving Gillette MD 10/01/2016 03:31 P
--- NOTE | 2016-10-01 15:27 | REP ---
PORTABLE CHEST X-RAY: Two views. HISTORY: Weakness. COMPARISON CHEST X-RAY: September 13, 2016. FINDINGS: The patient is rotated to the left for the current exposure. EKG electrodes are seen. The lungs are symmetrically aerated. No focal infiltrate is appreciated. There is some linear density in the right lower lobe consistent with plate-like atelectasis. IMPRESSION: Linear plate-like atelectasis right lower lobe. Patient is rotated to the left. No new infiltrate. Signed by Irving Gillette MD 10/01/2016 03:31 P
[2016-10-01 15:40] LABS: INR 0.97
[2016-10-01 15:42] LABS: ADD MANUAL DIFFER YES; MEAN CORPUSCULAR HEMOGLOBIN 33.2 pg (27.0-33.0); MEAN CORPUSCULAR HGB CONC 34.1 g/dl (32.0-36.5); MEAN CORPUSCULAR VOLUME 97.1 fl (80.0-96.0); PLATELET COUNT, AUTOMATED 201 k/mm3 (150-450); RED CELL DISTRIBUTION WIDTH 14.6 % (11.5-14.5); WHITE BLOOD COUNT 8.1 K/mm3 (4.0-10.0)
[2016-10-01 15:52] LABS: ANION GAP 8 MEQ/L (8-16); BLOOD UREA NITROGEN 24 MG/DL (7-18); CALCIUM LEVEL 9.1 MG/DL (8.8-10.2); CARBON DIOXIDE LEVEL 30 MEQ/L (21-32); CHLORIDE LEVEL 102 MEQ/L (98-107); CREATININE FOR GFR 1.18 MG/DL (0.70-1.30); GLOMERULAR FILTRATION RATE > 60.0 (>49); GLUCOSE, FASTING 120 MG/DL (80-110); POTASSIUM SERUM 4.2 MEQ/L (3.5-5.1); SODIUM LEVEL 140 MEQ/L (136-145)
[2016-10-01 16:16] LABS: ANISOCYTOSIS 1+; POLYCHROMASIA 1+; TEAR DROP CELLS 1+; TOXIC VACUOLATION 1+
[2016-10-01] MEDS ORDERED: NITROGLYCERIN 0.4 MG SUBL TABLET SL PRN (16:30)
[2016-10-01] MEDS ORDERED: ASPIRIN 81 MG CHEW TABLET PO ONE (16:30)
[2016-10-01] MEDS ORDERED: ONDANSETRON 4MG/2ML VIAL (J2405) IV PRN (17:15)
[2016-10-01] MEDS ORDERED: ONDANSETRON 4 MG TAB (S0181) PO PRN (17:15)
[2016-10-01] MEDS ORDERED: CYCL10TA PO (17:40)
[2016-10-01] MEDS ORDERED: LEVO750T13 PO (17:40)
[2016-10-01 18:05] VITALS: BP 119/64
[2016-10-01] MEDS ORDERED: ALBUTEROL 90 MCG/ACT 8GM HFA INHALER INH PRN (18:30)
[2016-10-01] MEDS ORDERED: hydrOXYzine 50 MG TAB PO PRN (18:30)
--- NOTE | 2016-10-01 18:40 | ECGEPIP ---
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
--- NOTE | 2016-10-01 18:41 | ECGEPIP ---
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
[2016-10-01 20:00] VITALS: BP 137/77
[2016-10-01] MEDS: SERTRALINE HCL 25 MG TABLET PO SCH (20:45)
[2016-10-01] MEDS: GABAPENTIN 300 MG CAP PO SCH (20:45)
[2016-10-01] MEDS: rOPINIRole 1MG TAB PO SCH (20:45)
[2016-10-01] MEDS: CARVedilol 6.25 MG TAB PO SCH (20:46)
--- NOTE | 2016-10-01 21:30 | HPEPDOC ---
Medical History and Physical Date of Admission Oct 01, 2016 at 17:05 History and Physical HISTORY AND PHYSICAL Date of admission: 10/01/2016 PCP: Dr. 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 Chase who presented to the emergency department with left-sided weakness. He states that this started at approximately 9 AM this morning, and he has also had some subjective numbness with it. He also reports pain in the upper left arm. He has been admitted multiple times in the last several months, even though he sometimes has another main complaint, he almost always appears to also complain of this left-sided weakness. Upon my interview with him today, the patient does confirm that this has been an intermittent issue for several months. He has had prior head imaging, including MRIs and MRAs which reveal a dramatic mass effect in the inferior hanny and superior medulla from a tortuous and ectatic left distal vertebral artery. He has been evaluated by neurology, who felt that there was no need for surgical intervention. He has since been following with neurology as an outpatient. 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 Chase Past surgical history: Right nephrectomy, right adrenalectomy, partial colectomy , bilateral lobectomies secondary to lung cancer, fusion of left ankle, cholecystectomy, tonsillectomy Family history: Diabetes mellitus, liver cancer, COPD, heart disease, ALS, Parkinson's Social history: The patient currently lives alone. He quit smoking a few years ago and denies any drug or alcohol use. Allergies: Hexachlorophene Review of systems: General: Negative for fever and chills Eyes: Positive for blurry vision, negative for ocular discharge ENT: Positive for sore throat Cardiovascular: Positive for chest pain, negative for palpitations Respiratory: Positive for baseline cough and shortness of breath GI: Negative for nausea, vomiting, diarrhea, constipation Musculoskeletal: Positive for chronic back pain Skin: Negative for rash Neuro: Positive for headache, dizziness, numbness, tingling on the left side Psych: Negative for depression and suicidal ideation Endocrine: Negative for polyuria : Negative for dysuria Heme: Negative for bruising and bleeding Home meds: See below Physical exam: Vital signs: Vital Sign - Last 24 Hours 10/01/16 10/01/16 10/01/16 10/01/16 13:21 13:42 13:44 13:57 Temp 97.0 Pulse 88 88 88 Resp 18 B/P (MAP) 122/74 (90) 113/66 (82) Pulse Ox 95 94 94 O2 Delivery Room Air O2 Flow Rate 3.0 10/01/16 10/01/16 10/01/16 10/01/16 13:59 14:12 14:14 14:27 Pulse 86 86 B/P (MAP) 120/72 (88) 125/68 (87) Pulse Ox 94 94 10/01/16 10/01/16 10/01/16 10/01/16 14:29 14:42 14:44 14:57 Pulse 90 86 B/P (MAP) 116/59 (78) 119/68 (85) Pulse Ox 92 10/01/16 10/01/16 10/01/16 10/01/16 14:59 15:12 15:27 15:29 Pulse 86 90 B/P (MAP) 120/77 (91) 130/68 (88) 116/63 (80) Pulse Ox 94 94 10/01/16 10/01/16 10/01/16 10/01/16 15:42 15:44 15:57 15:59 Pulse 70 86 B/P (MAP) 113/58 (76) 121/57 (78) Pulse Ox 94 94 10/01/16 10/01/16 10/01/16 10/01/16 16:08 16:12 16:14 16:27 Pulse 84 86 B/P (MAP) 119/59 (79) Pulse Ox 92 92 10/01/16 10/01/16 10/01/16 10/01/16 16:28 16:30 16:42 16:42 Pulse 85 88 Resp 16 B/P (MAP) 113/56 (75) 113/56 113/56 Pulse Ox 93 94 O2 Delivery Nasal Cannula O2 Flow Rate 3.0 10/01/16 10/01/16 10/01/16 10/01/16 16:44 16:51 16:59 17:10 Pulse 95 100 Resp 16 B/P (MAP) 134/84 (101) 134/84 112/61 (78) Pulse Ox 94 92 O2 Delivery Nasal Cannula O2 Flow Rate 3.0 10/01/16 10/01/16 10/01/16 10/01/16 17:14 17:29 17:44 18:05 Temp 97.3 Pulse 94 88 88 90 Resp 19 B/P (MAP) 132/69 (90) 112/87 (95) 92/53 (66) 119/64 (82) Pulse Ox 92 94 95 96 O2 Delivery Nasal Cannula O2 Flow Rate 3.0 10/01/16 10/01/16 20:00 20:46 Pulse 92 B/P (MAP) 137/72 O2 Delivery Nasal Cannula O2 Flow Rate 3.0 Gen.: awake, alert, no acute distress Eyes: Extraocular movements intact, normal sclera ENT: Moist mucous membranes Cardiovascular: RRR, no murmurs rubs or gallops Lungs: clear to auscultation bilaterally, no rales, rhonchi, or wheeze Abdomen: Soft, NT/ND, normal BS Musculoskeletal: normal range of motion Extremities: No peripheral edema Neuro: alert and oriented 3, normal speech, left extremities are weak compared to right extremities, no facial droop; unable to participate in arm drift as he says his right arm hurts too much to lift it Psych: Normal mood with congruent affect Labs and radiology: See below CBC, coags, troponin, CT head, chest x-ray unremarkable BMP shows creatinine of 1.18, which appears to be the patient's baseline Assessment and plan: 65-year-old male with COPD on 3 L of oxygen, 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 Chase who presented to the emergency department with left-sided weakness. The patient admits that this has been an intermittent issue for several months, and he has been following outpatient with Dr. Chase. 1. Left-sided weakness: The patient does confirm that this has been an intermittent issue for several months. He has had prior head imaging, including MRIs and MRAs which reveal a dramatic mass effect in the inferior hanny and superior medulla from a tortuous and ectatic left distal vertebral artery. He has been evaluated by neurology, who felt that there was no need for surgical intervention. He has since been following with neurology as an outpatient. He states that his symptoms today are no different than the prior episodes. CT of his head is unremarkable. The patient is too large to fit in our MRI scanner. I have spoken with Dr. Lewis of neurology, who has agreed to evaluate the patient. We will also order physical therapy and neuro checks for the patient while we monitor him in the PCU. Continue aspirin and statin 2. Chest pain: The patient states this began in the emergency department. Troponin is unremarkable, and this had resolved by the time I saw the patient. We'll continue to trend his troponins and monitor him on telemetry. 3. COPD on 3 L of oxygen: Continue home albuterol, DuoNeb's, Spiriva, Ellipta. 4. Hypertension: Continue home Coreg. 5. Gout: Continue home allopurinol. DVT prophylaxis: SCDs Dispo: placed in observation on the service of Dr. Tiffanie Hu CODE STATUS: DO NOT INTUBATE Vital Signs Vital Signs Date Time Temp Pulse Resp B/P (MAP) Pulse Ox O2 Delivery O2 Flow Rate FiO2 10/01/16 20:46 92 137/72 10/01/16 20:00 Nasal Cannula 3.0 10/01/16 18:05 97.3 19 96 Laboratory Data Labs 24H Laboratory Tests 2 10/01/16 15:18: Neutrophils 75, Lymphocytes (Manual) 9L, Monocytes (Manual) 9H, Metamyelocytes 3H, Myelocytes 3H, Atypical Lymphocytes 1, Toxic Vacuolation 1+, Platelet Estimate NORMAL, Polychromasia 1+, Anisocytosis 1+, Tear Drop Cells 1+, Prothrombin Time 13.0, Prothromb Time International Ratio 0.97, Activated Partial Thromboplast Time 27.1, Anion Gap 8, Glomerular Filtration Rate > 60.0, Blood Urea Nitrogen 24H, Creatinine 1.18, Sodium Level 140, Potassium Level 4.2 , Chloride Level 102, Carbon Dioxide Level 30, Calcium Level 9.1, Total Creatine Kinase 55, Creatine Kinase MB 2.2, Creatine Kinase MB Relative Index 4.00, Troponin I < 0.02 CBC/BMP Laboratory Tests 10/01/16 15:18 Red Blood Count 3.95 L, Mean Corpuscular Volume 97.1 H, Mean Corpuscular Hemoglobin 33.2 H, Mean Corpuscular Hemoglobin Concent 34.1, Red Cell Distribution Width 14.6 H, Calcium Level 9.1, Total Creatine Kinase 55 Microbiology Microbiology 10/01/16 Gastrointestinal Tract Panel (PCR), Received Pending Home Medications Scheduled (Sertraline HCl) 25 Mg Tab, 25 MG PO QHS Allopurinol (Zyloprim) 300 Mg Tab, 300 MG PO DAILY Ammonium Lactate (Ammonium Lactate) 12 % Cre, 1 DOSE TOP DAILY USES ON FEET Aspirin (Aspir-Low) 81 Mg Tab, 81 MG PO DAILY Carvedilol (Carvedilol) 6.25 Mg Tab, 6.25 MG PO BID Cyanocobalamin (Vitamin B-12) 500 Mcg Tab, 500 MCG PO DAILY Ferrous Sulfate (Ferrous Sulfate) 325 Mg Tab, 325 MG PO DAILY Fluticasone/Vilanterol (Breo Ellipta 200-25 Mcg/INH) 1 Inh Inh, 1 PUFF INH DAILY Gabapentin (Gabapentin) 300 Mg Cap, 300 MG PO TID Levofloxacin Hemihydrate (Levofloxacin) 750 Mg Tab, 750 MG PO DAILY FILLED 09/26/16 FOR 5 DAYS Magnesium Oxide (Magnesium Oxide 400) 400 Mg Tab, 400 MG PO DAILY Multivitamins *[facility] STOCKED* (Thera M Plus *[facility] STOCKED*) 1 Tab Tab, 1 TAB PO DAILY Omeprazole (Prilosec) 20 Mg Cap, 20 MG PO DAILY Pravastatin Sodium (Pravastatin Sodium) 20 Mg Tab, 20 MG PO DAILY Psyllium (Metamucil) 0.52 Gm Cap, 1.04 GM PO DAILY Ropinirole Hydrochloride (Ropinirole HCl) 1 Mg Tab, 1 MG PO DAILY Ropinirole Hydrochloride (Ropinirole HCl) 1 Mg Tab, 2 MG PO QHS Tiotropium [place] Monohydrate (Spiriva Respimat) 2.5 Mcg/Act Spr, 2 INHALATION INH DAILY Scheduled PRN Acetaminophen (Acetaminophen) 500 Mg Tab, 1,000 MG PO Q6H PRN for PAIN Albuterol Sulfate (Ventolin Hfa) 200 Puff/8 Gm Aers, 2 PUFF INH QID PRN for SHORTNESS OF BREATH Albuterol/Ipratropium (Ipratropium [place]/Albut 0.5-2.5 (3) mg/3Ml) 1 Kenna Kenna, 1 KENNA INH Q4H PRN for SHORTNESS OF BREATH Cyclobenzaprine HCl (Cyclobenzaprine HCl) 10 Mg Tab, 10 MG PO TID PRN for MUSCLE SPASMS Hydroxyzine HCl (Hydroxyzine HCl) 50 Mg Tab, 50 MG PO Q12H PRN for ANXIETY Allergies Coded Allergies: Hexachlorophene (Verified Adverse Reaction, Mild, ITCHING, 09/23/16) SAVANNAH CABRERA Oct 01, 2016 21:30
[2016-10-01] MEDS: ADVAIR HFA 230/21MCG INHALER INH SCH (22:02)
[2016-10-01] MEDS: CYCLOBENZAPRINE 10 MG TAB PO PRN (22:12)
[2016-10-02] VITALS (9 sets, daily range): BP systolic 115–137; BP diastolic 61–87
[2016-10-02 07:33] LABS: ANION GAP 10 MEQ/L (8-16); BLOOD UREA NITROGEN 21 MG/DL (7-18); CALCIUM LEVEL 9.2 MG/DL (8.8-10.2); CARBON DIOXIDE LEVEL 30 MEQ/L (21-32); CHLORIDE LEVEL 100 MEQ/L (98-107); CREATININE FOR GFR 1.27 MG/DL (0.70-1.30); GLOMERULAR FILTRATION RATE > 60.0 (>49); GLUCOSE, FASTING 143 MG/DL (80-110); SODIUM LEVEL 140 MEQ/L (136-145)
[2016-10-02 07:38] LABS: ADD MANUAL DIFFER YES; MEAN CORPUSCULAR HEMOGLOBIN 32.4 pg (27.0-33.0); MEAN CORPUSCULAR HGB CONC 33.2 g/dl (32.0-36.5); MEAN CORPUSCULAR VOLUME 97.3 fl (80.0-96.0); PLATELET COUNT, AUTOMATED 171 k/mm3 (150-450); RED CELL DISTRIBUTION WIDTH 14.9 % (11.5-14.5); WHITE BLOOD COUNT 7.1 K/mm3 (4.0-10.0)
[2016-10-02] MEDS: ADVAIR HFA 230/21MCG INHALER INH SCH ×2 (07:57→21:55)
[2016-10-02] MEDS: TIOTROPIUM INHALER/CAPSULE (SPIRIVA) INH SCH (07:57)
[2016-10-02 08:04] LABS: BASOPHILS 2 % (0-4); EOSINOPHILS 3 % (0-5)
[2016-10-02] MEDS: PRAVASTATIN 20 MG TAB PO SCH (09:00)
[2016-10-02] MEDS: LACTIC ACID 12% LOTION 225 GM BTL TOP SCH (09:00)
[2016-10-02] MEDS: METAMUCIL (PSYLLIUM) PACKET PO SCH (09:00)
[2016-10-02] MEDS: CYANOCOBALAMIN 500 MCG TAB PO SCH (09:00)
[2016-10-02] MEDS: ALLOPURINOL 300 MG TAB PO SCH (09:00)
[2016-10-02] MEDS: rOPINIRole 1MG TAB PO SCH ×2 (09:00→21:54)
[2016-10-02] MEDS: CYCLOBENZAPRINE 10 MG TAB PO PRN (10:13)
[2016-10-02] MEDS: ASPIRIN 81 MG ENTERIC TAB PO SCH (10:13)
[2016-10-02] MEDS: GABAPENTIN 300 MG CAP PO SCH ×3 (10:13→21:54)
[2016-10-02] MEDS: OMEPRAZOLE 20 MG CAP PO SCH (10:13)
[2016-10-02] MEDS: FERROUS SULFATE 325MG TAB PO SCH (10:13)
[2016-10-02] MEDS: CARVedilol 6.25 MG TAB PO SCH ×2 (10:13→21:54)
[2016-10-02] MEDS: MULTIVITAMINS/MINERALS THERAP 1 TAB PO SCH (10:14)
[2016-10-02] MEDS: MAGNESIUM OXIDE 400 MG TAB (MAG-OX) PO SCH (10:14)
--- NOTE | 2016-10-02 12:33 | IPNPDOC ---
Subjective Date Seen The patient was seen on 10/02/16. Subjective Chief Complaint/HPI The patient is a 65-year-old male admitted with a reason for visit of Left- Sided Weakness. Events since last encounter complains of left shoulder pain with popping sensation and difficulty in abducting the shoulder. also complains of shooting pain from the shoulder to the hand on the left . Also complains of left thigh pain and weakness, says does not have any sensation in the feet, no fever or chills, had 3 episodes of loose stools since yesterday, no neck pain , no back pain , no chest pain or sob , no abdominal pain , nausea or vomiting. Objective Physical Examination General Exam: Positive: Alert, Cooperative, No Acute Distress Eye Exam: Positive: PERRLA, Conjunctiva & lids normal, EOMI, Negative: Sclera icteric ENT Exam: Positive: Atraumatic, Mucous membr. moist/pink, Pharynx Normal Neck Exam: Positive: Supple Chest Exam: Positive: Clear to auscultation, Normal air movement Heart Exam: Positive: Rate Normal, Regular Rhythm, Normal S1, Normal S2, Negative: Murmurs, Rubs Telemetry: Positive: No significant arrhythmia Abdomen Exam: Positive: Normal bowel sounds, Soft, Negative: Tenderness, Hepatospenomegaly Extremity Exam: Positive: Normal pulses, Tenderness (left thigh lateral aspect) , Other (left shoulder tender to palpation and with restriction of abduction , internal and ext rotation), Negative: Clubbing, Cyanosis, Edema Skin Exam: Positive: Other skin issue (chronic stasis changes) Assessment /Plan Problems (1) Weakness of left upper extremity Status: Acute Problem Text: weakness along with pain and restriction of movement at the shoulder, pain radiates from shoulder to hand. will get shoulder ct scan and consider open MRI of the shoulder neurology to see. (2) Shoulder joint painful on movement Status: Acute Problem Text: will get ct shoulder will try steroids. for antiinflammatory effect. 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 (6) Chronic respiratory failure with hypoxia Status: Chronic (7) Morbid obesity Status: Chronic (8) Diastolic CHF Status: Chronic (9) LUCA (obstructive sleep apnea) Status: Chronic Problem Text: uses cpap (10) Anxiety and depression Status: Chronic (11) Restless leg syndrome Status: Chronic (12) Fatty liver Status: Chronic (13) Neuropathy Status: Chronic (14) Diabetes Status: Chronic (15) Hypertension Status: Chronic (16) Gout Status: Chronic (17) Lung cancer Status: Resolved Problem Text: squamous cell cancer s/p resection (18) Hyperlipidemia Status: Chronic (19) COPD (chronic obstructive pulmonary disease) Status: Chronic Plan/VTE VTE Prophylaxis Ordered?: Yes VS, I&O, 24H, Fishbone Vital Signs/I&O Vital Signs Date Time Temp Pulse Resp B/P (MAP) Pulse Ox O2 Delivery O2 Flow Rate FiO2 10/02/16 12:00 96.2 91 19 127/81 (96) 95 Nasal Cannula 3.0 I&O- Last 24 Hours up to 6 AM 10/02/16 05:59 Intake Total 240 ml Output Total 200 ml Balance 40 ml Laboratory Data 24H LABS Laboratory Tests 2 10/01/16 15:18: Neutrophils 75, Lymphocytes (Manual) 9L, Monocytes (Manual) 9H, Metamyelocytes 3H, Myelocytes 3H, Atypical Lymphocytes 1, Toxic Vacuolation 1+, Platelet Estimate NORMAL, Polychromasia 1+, Anisocytosis 1+, Tear Drop Cells 1+, Prothrombin Time 13.0, Prothromb Time International Ratio 0.97, Activated Partial Thromboplast Time 27.1, Anion Gap 8, Glomerular Filtration Rate > 60.0, Blood Urea Nitrogen 24H, Creatinine 1.18, Sodium Level 140, Potassium Level 4.2 , Chloride Level 102, Carbon Dioxide Level 30, Calcium Level 9.1, Total Creatine Kinase 55, Creatine Kinase MB 2.2, Creatine Kinase MB Relative Index 4.00, Troponin I < 0.02 10/01/16 23:53: Total Creatine Kinase 62, Creatine Kinase MB 2.8, Creatine Kinase MB Relative Index 4.51H, Troponin I < 0.02 10/02/16 06:56: Neutrophils 80H, Lymphocytes (Manual) 15L, Platelet Estimate NORMAL, Anion Gap 10, Glomerular Filtration Rate > 60.0, Blood Urea Nitrogen 21H, Creatinine 1.27 , Sodium Level 140, Potassium Level 4.0, Chloride Level 100, Carbon Dioxide Level 30, Calcium Level 9.2, Total Creatine Kinase 53, Creatine Kinase MB 1.8, Creatine Kinase MB Relative Index 3.39, Troponin I < 0.02, Eosinophils (Manual) 3, Basophils (Manual) 2, Red Blood Cell Morphology NORMAL, Magnesium Level 2.0 CBC/BMP Laboratory Tests 10/01/16 15:18 Red Blood Count 3.95 L, Mean Corpuscular Volume 97.1 H, Mean Corpuscular Hemoglobin 33.2 H, Mean Corpuscular Hemoglobin Concent 34.1, Red Cell Distribution Width 14.6 H, Calcium Level 9.1, Total Creatine Kinase 55 10/02/16 06:56 Red Blood Count 4.04 L, Mean Corpuscular Volume 97.3 H, Mean Corpuscular Hemoglobin 32.4, Mean Corpuscular Hemoglobin Concent 33.2, Red Cell Distribution Width 14.9 H, Calcium Level 9.2, Total Creatine Kinase 53 Microbiology Microbiology 10/01/16 Gastrointestinal Tract Panel (PCR) - Final, Complete LANE CHING MD Oct 02, 2016 12:33
[2016-10-02] MEDS ORDERED: LOPERAMIDE 2 MG CAP PO ONE (13:00)
--- NOTE | 2016-10-02 13:21 | REP ---
CT study left shoulder without contrast: History: Restrictive movement and pain left shoulder. No comparison images. CT findings: There is mild osteoarthritic change affecting the left acromioclavicular joint. The left AC and glenohumeral articulations are normally aligned. No bony erosive changes seen. There is some periarticular soft-tissue calcification along the posterosuperior aspect of the humeral head consistent with calcific tendonitis or bursitis. There is no compelling evidence to suggest joint effusion or periarticular cyst or mass. Impression: Acromioclavicular joint osteoarthritis. Periarticular soft tissue calcification adjacent to the humeral head may reflect calcific tendonitis or bursitis. There is some inferior acromion process spurring seen on the recon views which may be a feature of impingement. Signed by Irving Gillette MD 10/02/2016 02:03 P
[2016-10-02] MEDS: methylPREDNISolone 4 MG TAB PO SCH (17:38)
[2016-10-02] MEDS: ACETAMINOPHEN TAB 650MG DOSE (2X325MG) PO PRN (17:39)
[2016-10-02] MEDS: SERTRALINE HCL 25 MG TABLET PO SCH (21:54)
[2016-10-03 04:00] VITALS: BP 136/91
[2016-10-03 05:44] LABS: BASO % 0.4 % (0.0-1.0); EOS # 0.1 K/mm3 (0.0-0.50); EOS % 1.4 % (0.0-3.0); LARGE UNSTAINED CELL # 0.1 K/mm3 (0.0-0.4); LARGE UNSTAINED CELL % 1.2 % (0.0-4.0); LYMPH # 0.9 K/mm3 (1.5-4.5); LYMPH % 9.2 % (24.0-44.0); MEAN CORPUSCULAR HEMOGLOBIN 32.8 pg (27.0-33.0); MEAN CORPUSCULAR HGB CONC 33.7 g/dl (32.0-36.5); MEAN CORPUSCULAR VOLUME 97.4 fl (80.0-96.0); MONO # 0.4 K/mm3 (0.0-0.8); NEUTROPHILS # 7.3 K/mm3 (1.8-7.7); NEUTROPHILS % 83.9 % (36.0-66.0); PLATELET COUNT, AUTOMATED 169 k/mm3 (150-450); RED CELL DISTRIBUTION WIDTH 14.7 % (11.5-14.5); WHITE BLOOD COUNT 8.7 K/mm3 (4.0-10.0)
[2016-10-03 06:07] LABS: ANION GAP 8 MEQ/L (8-16); BLOOD UREA NITROGEN 24 MG/DL (7-18); CALCIUM LEVEL 9.3 MG/DL (8.8-10.2); CARBON DIOXIDE LEVEL 28 MEQ/L (21-32); CHLORIDE LEVEL 103 MEQ/L (98-107); GLOMERULAR FILTRATION RATE > 60.0 (>49); GLUCOSE, FASTING 174 MG/DL (80-110); MAGNESIUM LEVEL 2.1 MG/DL (1.8-2.4); POTASSIUM SERUM 4.5 MEQ/L (3.5-5.1); SODIUM LEVEL 139 MEQ/L (136-145)
[2016-10-03 07:30] VITALS: BP 128/77
[2016-10-03] MEDS: TIOTROPIUM INHALER/CAPSULE (SPIRIVA) INH SCH (08:12)
[2016-10-03] MEDS: ADVAIR HFA 230/21MCG INHALER INH SCH ×2 (08:13→19:26)
[2016-10-03] MEDS: CYANOCOBALAMIN 500 MCG TAB PO SCH (08:36)
[2016-10-03] MEDS: rOPINIRole 1MG TAB PO SCH ×2 (08:36→21:18)
[2016-10-03] MEDS: PRAVASTATIN 20 MG TAB PO SCH (08:36)
[2016-10-03] MEDS: ASPIRIN 81 MG ENTERIC TAB PO SCH (08:37)
[2016-10-03] MEDS: FERROUS SULFATE 325MG TAB PO SCH (08:37)
[2016-10-03] MEDS: methylPREDNISolone 4 MG TAB PO SCH (08:37)
[2016-10-03] MEDS: MULTIVITAMINS/MINERALS THERAP 1 TAB PO SCH (08:37)
[2016-10-03] MEDS: MAGNESIUM OXIDE 400 MG TAB (MAG-OX) PO SCH (08:37)
[2016-10-03] MEDS: GABAPENTIN 300 MG CAP PO SCH ×3 (08:37→21:19)
[2016-10-03] MEDS: OMEPRAZOLE 20 MG CAP PO SCH (08:37)
[2016-10-03] MEDS: LACTIC ACID 12% LOTION 225 GM BTL TOP SCH (08:38)
[2016-10-03] MEDS: CARVedilol 6.25 MG TAB PO SCH ×2 (09:00→21:19)
--- NOTE | 2016-10-03 09:06 | IPNPDOC ---
Subjective Date Seen The patient was seen on 10/03/16. Subjective Chief Complaint/HPI The patient is a 65-year-old male admitted with a reason for visit of Left- Sided Weakness. Events since last encounter complains of arm left jumping persistently last night. continues to have shooting pain from the left shoulder to the hand. also complained of legs jumping last night. no fever or chills, no chest pain or sob , no abdominal pain , nausea or vomiting or diarrhea. Objective Physical Examination General Exam: Positive: Alert, Cooperative, No Acute Distress Eye Exam: Positive: PERRLA, Conjunctiva & lids normal, EOMI, Negative: Sclera icteric ENT Exam: Positive: Atraumatic, Mucous membr. moist/pink, Pharynx Normal Neck Exam: Positive: Supple Chest Exam: Positive: Clear to auscultation, Normal air movement Heart Exam: Positive: Rate Normal, Regular Rhythm, Normal S1, Normal S2, Negative: Murmurs, Rubs Telemetry: Positive: No significant arrhythmia Abdomen Exam: Positive: Normal bowel sounds, Soft, Negative: Tenderness, Hepatospenomegaly Extremity Exam: Positive: Normal pulses, Tenderness (left thigh lateral aspect) , Other (left shoulder tender to palpation and with restriction of abduction , internal and ext rotation), Negative: Clubbing, Cyanosis, Edema Skin Exam: Positive: Other skin issue (chronic stasis changes) Assessment /Plan Problems (1) Weakness of left upper extremity Status: Acute Problem Text: weakness along with pain and restriction of movement at the shoulder, pain radiates from shoulder to hand. shoulder ct scan possible nerve impingement. consider open MRI of the shoulder neurology to see. (2) Shoulder joint painful on movement Status: Acute Problem Text: will get ct shoulder will try steroids. for antiinflammatory effect. 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 (6) Chronic respiratory failure with hypoxia Status: Chronic (7) Morbid obesity Status: Chronic (8) Diastolic CHF Status: Chronic (9) LUCA (obstructive sleep apnea) Status: Chronic Problem Text: uses cpap (10) Anxiety and depression Status: Chronic (11) Restless leg syndrome Status: Chronic (12) Fatty liver Status: Chronic (13) Neuropathy Status: Chronic (14) Diabetes Status: Chronic (15) Hypertension Status: Chronic (16) Gout Status: Chronic (17) Lung cancer Status: Resolved Problem Text: squamous cell cancer s/p resection (18) Hyperlipidemia Status: Chronic (19) COPD (chronic obstructive pulmonary disease) Status: Chronic Plan/VTE VTE Prophylaxis Ordered?: Yes VS, I&O, 24H, Fishbone Vital Signs/I&O Vital Signs Date Time Temp Pulse Resp B/P (MAP) Pulse Ox O2 Delivery O2 Flow Rate FiO2 10/03/16 07:30 95.9 87 20 128/77 (94) 100 Nasal Cannula 3.0 I&O- Last 24 Hours up to 6 AM 10/03/16 05:59 Intake Total 1400 ml Output Total 1350 ml Balance 50 ml Laboratory Data 24H LABS Laboratory Tests 2 10/02/16 14:51: Total Creatine Kinase 55, Creatine Kinase MB 1.7, Creatine Kinase MB Relative Index 3.09, Troponin I < 0.02 10/03/16 05:30: White Blood Count 8.7, Red Blood Count 4.08L, Hemoglobin 13.4L, Hematocrit 39.8L , Mean Corpuscular Volume 97.4H, Mean Corpuscular Hemoglobin 32.8, Mean Corpuscular Hemoglobin Concent 33.7, Red Cell Distribution Width 14.7H, Platelet Count 169, Neutrophils (%) (Auto) 83.9H, Lymphocytes (%) (Auto) 9.2L, Monocytes (%) (Auto) 4.0, Eosinophils (%) (Auto) 1.4, Basophils (%) (Auto) 0.4, Neutrophils # (Auto) 7.3, Lymphocytes # (Auto) 0.9L, Monocytes # (Auto) 0.4, Eosinophils # (Auto) 0.1, Basophils # (Auto) 0.0, Large Unclassified Cells % 1.2 , Large Unclassified Cells # 0.1, Anion Gap 8, Glomerular Filtration Rate > 60.0 , Blood Urea Nitrogen 24H, Creatinine 1.20, Sodium Level 139, Potassium Level 4.5, Chloride Level 103, Carbon Dioxide Level 28, Calcium Level 9.3, Magnesium Level 2.1 CBC/BMP Laboratory Tests 10/03/16 05:30 Red Blood Count 4.08 L, Mean Corpuscular Volume 97.4 H, Mean Corpuscular Hemoglobin 32.8, Mean Corpuscular Hemoglobin Concent 33.7, Red Cell Distribution Width 14.7 H, Neutrophils (%) (Auto) 83.9 H, Lymphocytes (%) (Auto ) 9.2 L, Monocytes (%) (Auto) 4.0, Eosinophils (%) (Auto) 1.4, Basophils (%) ( Auto) 0.4, Neutrophils # (Auto) 7.3, Lymphocytes # (Auto) 0.9 L, Monocytes # ( Auto) 0.4, Eosinophils # (Auto) 0.1, Basophils # (Auto) 0.0, Calcium Level 9.3 Microbiology Microbiology 10/01/16 Gastrointestinal Tract Panel (PCR) - Final, Complete LANE CHING MD Oct 03, 2016 09:06
[2016-10-03] MEDS ORDERED: SLF 3 ML SYR IV PRN (11:00)
[2016-10-03] MEDS: METAMUCIL (PSYLLIUM) PACKET PO SCH (11:02)
[2016-10-03] MEDS: ALLOPURINOL 300 MG TAB PO SCH (11:02)
[2016-10-03] MEDS: IPRATROPIUM 0.5MG/ALBUTEROL 2.5MG INH SOL UD 3ML (DUONEB)(J7620) INH PRN ×3 (11:35→23:46)
--- NOTE | 2016-10-03 13:56 | REP ---
MR BRAIN WITHOUT CONTRAST: HISTORY: Left side weakness. COMPARISON: 06/23/2016 Scattered punctate areas of increased signal intensity on T2-weighted images are present in the periventricular and subcortical white matter. This represents small vessel ischemic disease. There is no intraparenchymal hemorrhage, infarct, mass or midline shift. The ventricular system and cortical sulci are dilated consistent with minimal volume loss. There is no extracerebral collection. 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 This produces mild mass effect on the brain stem at the pontomedullary junction. The sinuses are clear. IMPRESSION: 1. Minimal small vessel ischemic disease. 2. Minimal volume loss. Signed by Jonh Herrera MD 10/03/2016 01:59 P
--- NOTE | 2016-10-03 14:45 | REP ---
MR CERVICAL SPINE WITHOUT CONTRAST: HISTORY: Left-sided weakness. COMPARISON: 07/11/2016. A disc bulge is present at the C2-3 level. There is minimal effacement of the thecal sac without spinal cord compression. The C2 neural foramina are patent. A disc bulge is present at the C3-4 level. There is mild effacement of the thecal sac without spinal cord compression. Bilateral uncinate process hypertrophy is present. This produces minimal narrowing of the C3 neural foramina. A disc bulge with associated osteophyte formation is present at the C4-5 level. There is minimal spinal cord compression. Bilateral uncinate process hypertrophy is present. This produces mild and moderate narrowing of the right and left C4 neural foramina respectively. A disc bulge with associated osteophyte formation is present at he C5-6 level. There is minimal spinal cord compression. Bilateral uncinate process hypertrophy is present. This produces moderate narrowing of the C5 neural foramina. A disc bulge with associated osteophyte formation is present at the C6-7 level. There is moderate effacement of the thecal sac without spinal cord compression. Bilateral uncinate process hypertrophy is present. This produces moderate and minimal narrowing of the right and left C6 neural foramina respectively. A disc bulge and small right paracentral and intraforaminal disc protrusion are present at the C7-T1 level. There is minimal effacement of the thecal sac without spinal cord compression. Uncinate process hypertrophy is present on the right. There is minimal narrowing of the right C7 neural foramen. The left C7 neural foramen is patent. Disc bulges are present at the T1-2 and T2-3 levels. There is minimal effacement of the thecal sac without spinal cord compression. The neural foramen are patent on sagittal images. The spinal cord is normal in signal intensity. The C3-4 through C7-T1 intervertebral discs are decreased in height consistent with disc degeneration. Isabel signal intensity is present in the cervical vertebral bodies. IMPRESSION: There is cervical spondylosis at the C3-4 through C7-T1 levels most significant at the C4-5 and C5-6 levels where there is minimal spinal cord compression. There is no significant change compared to the previous study. Signed by Jonh Herrera MD 10/03/2016 02:46 P
--- NOTE | 2016-10-03 15:06 | REP ---
MRI LEFT SHOULDER: TECHNIQUE: Axial T2 fat sat, gradient echo, sagittal oblique T2 fat sat, coronal oblique T1, T2 fat sat. There is a complete full thickness tear of the supraspinatus tendon with retraction of the musculotendinous junction approximately 3.5 cm. There appears to be atrophy of the supraspinatus muscle. No other definite rotator cuff tendon tear is seen. There are moderate hypertrophic degenerative changes of the acromioclavicular joint. Biceps tendon is within the bicipital groove with no tenosynovitis. There is no Hill-Sachs deformity. Deltoid muscle demonstrates no abnormal signal. Biceps labral complex appears intact. I do not see a definite labral tear. There is mild subchondral marrow edema at the acromioclavicular joint. There is no occult fracture. There is a mild joint effusion with fluid extending into the subacromial subdeltoid bursa. IMPRESSION: Full thickness complete tear supraspinatus tendon with retraction of the musculotendinous junction 3.5 cm and atrophy of the supraspinatus muscle. Moderate hypertropic degenerative changes acromioclavicular joint. Signed by Jorden Weinstein MD 10/03/2016 05:24 P
--- NOTE | 2016-10-03 15:45 | CR ---
DATE OF CONSULTATION: 10/03/2016 CONSULTATION FOR: Dr. Hu CHIEF COMPLAINT: Left shoulder pain, chronic. HISTORY: This is a 65-year-old gentleman who morbid obesity with a body mass index (BMI) of 40 and some chronic left shoulder pain that he thinks has been bothering him for months. I was asked to see him for this. He is admitted for weakness. He relates no change in his shoulder pain. He was sent for a recent MRI scan of his left shoulder. PAST MEDICAL HISTORY: Notable for: 1. Chronic obstructive pulmonary disease (COPD). 2. Some squamous cell lung cancer, post resection. 3. Solitary kidney with kidney disease. 4. Liposarcoma. 5. Status post partial colectomy. 6. Hypertension. 7. Gout. 8. Obstructive sleep apnea. 9. Morbid obesity. 10. Left-sided weakness that is intermittent chronic problem that he sees the neurologist for. PAST SURGERIES: Listed as: 1. Right nephrectomy. 2. Right adrenalectomy. 3. Partial colectomy. 4. Bilateral lobectomies. 5. Fusion, left ankle. 6. Cholecystectomy. 7. Tonsillectomy. FAMILY HISTORY: Notable for diabetes, liver cancer, COPD, heart disease, amyotrophic lateral sclerosis (ALS), and Parkinson's. SOCIAL HISTORY: He lives alone. He is accompanied by his daughter. He quit smoking a few years ago. REVIEW OF SYSTEMS: Denies any constitutional symptoms. HEENT: Does report some loss of vision. Does wear corrective eyewear. CARDIOVASCULAR: History of chest pain. RESPIRATORY: Positive for shortness of breath and cough. GASTROINTESTINAL: Denies any nausea or vomiting but does have a history of partial colectomy. SKIN: Denies any current rash. NEUROLOGIC: Does report some weakness that is involving his left side, and he says that this is slowly improving. GENITOURINARY: Denies any a dysuria. MUSCULOSKELETAL: Chronic left shoulder pain. PHYSICAL EXAMINATION: He is a morbidly obese gentleman in no acute distress. HEENT: Extraocular muscles intact. He has regular rate and rhythm to his pulse. Nonlabored breathing currently. His left shoulder he can forward elevate to about 90 degrees. Abduction is similar. Passively I am able to bring and about 110 degrees, but it becomes more uncomfortable. He has some moderate impingement signs. An MRI scan was obtained today that shows, per the report, a full-thickness rotator cuff tear. IMPRESSION: A 65-year-old with multiple medical problems, morbid obesity with a left shoulder rotator cuff tear. RECOMMENDATIONS: There is really nothing I think that should be done as an inpatient for this. It has been ongoing for many months. I would recommend that he followup in the office in a week or two for followup. There may be a role for a subacromial injection. Could be a role for some formal outpatient physical therapy. I would doubt that he would be considered a surgical candidate for the shoulder given his medical problems and his obesity, but that is something that could potentially be addressed down the road. REVIEW OF SYSTEMS
[2016-10-03] MEDS: SLF 3 ML SYR IV SCH ×2 (17:03→21:20)
[2016-10-03] MEDS: SERTRALINE HCL 25 MG TABLET PO SCH (21:20)
[2016-10-03 22:00] VITALS: BP 136/62
[2016-10-04] MEDS: ACETAMINOPHEN TAB 650MG DOSE (2X325MG) PO PRN ×3 (00:12→15:50)
[2016-10-04 06:00] VITALS: BP 146/72
[2016-10-04] MEDS: SLF 3 ML SYR IV SCH ×3 (06:00→21:40)
[2016-10-04 06:29] LABS: BASO % 0.6 % (0.0-1.0); EOS # 0.1 K/mm3 (0.0-0.50); EOS % 1.3 % (0.0-3.0); LARGE UNSTAINED CELL # 0.1 K/mm3 (0.0-0.4); LARGE UNSTAINED CELL % 1.7 % (0.0-4.0); LYMPH # 1.3 K/mm3 (1.5-4.5); MEAN CORPUSCULAR HGB CONC 33.4 g/dl (32.0-36.5); MEAN CORPUSCULAR VOLUME 98.6 fl (80.0-96.0); MONO # 0.6 K/mm3 (0.0-0.8); MONO % 7.1 % (0.0-5.0); NEUTROPHILS # 6.4 K/mm3 (1.8-7.7); NEUTROPHILS % 75.3 % (36.0-66.0); PLATELET COUNT, AUTOMATED 188 k/mm3 (150-450); RED CELL DISTRIBUTION WIDTH 14.9 % (11.5-14.5); WHITE BLOOD COUNT 8.5 K/mm3 (4.0-10.0)
[2016-10-04 07:13] LABS: ANION GAP 12 MEQ/L (8-16); BLOOD UREA NITROGEN 26 MG/DL (7-18); CALCIUM LEVEL 8.6 MG/DL (8.8-10.2); CARBON DIOXIDE LEVEL 27 MEQ/L (21-32); CHLORIDE LEVEL 102 MEQ/L (98-107); CREATININE FOR GFR 1.25 MG/DL (0.70-1.30); GLOMERULAR FILTRATION RATE > 60.0 (>49); GLUCOSE, FASTING 146 MG/DL (80-110); POTASSIUM SERUM 3.9 MEQ/L (3.5-5.1); SODIUM LEVEL 141 MEQ/L (136-145)
[2016-10-04] MEDS: ADVAIR HFA 230/21MCG INHALER INH SCH ×2 (07:47→19:30)
[2016-10-04] MEDS: TIOTROPIUM INHALER/CAPSULE (SPIRIVA) INH SCH (07:47)
[2016-10-04] MEDS: METAMUCIL (PSYLLIUM) PACKET PO SCH (09:21)
[2016-10-04] MEDS: methylPREDNISolone 4 MG TAB PO SCH (09:21)
[2016-10-04] MEDS: MAGNESIUM OXIDE 400 MG TAB (MAG-OX) PO SCH (09:22)
[2016-10-04] MEDS: MULTIVITAMINS/MINERALS THERAP 1 TAB PO SCH (09:22)
[2016-10-04] MEDS: rOPINIRole 1MG TAB PO SCH ×2 (09:22→20:34)
[2016-10-04] MEDS: GABAPENTIN 300 MG CAP PO SCH ×3 (09:22→20:35)
[2016-10-04] MEDS: ASPIRIN 81 MG ENTERIC TAB PO SCH (09:22)
[2016-10-04] MEDS: CYANOCOBALAMIN 500 MCG TAB PO SCH (09:23)
[2016-10-04] MEDS: ALLOPURINOL 300 MG TAB PO SCH (09:23)
[2016-10-04] MEDS: OMEPRAZOLE 20 MG CAP PO SCH (09:23)
[2016-10-04] MEDS: FERROUS SULFATE 325MG TAB PO SCH (09:23)
[2016-10-04] MEDS: PRAVASTATIN 20 MG TAB PO SCH (09:23)
[2016-10-04] MEDS: CARVedilol 6.25 MG TAB PO SCH ×2 (09:23→20:33)
--- NOTE | 2016-10-04 09:37 | IPNPDOC ---
Subjective Date Seen The patient was seen on 10/04/16. Subjective Chief Complaint/HPI The patient is a 65-year-old male admitted with a reason for visit of Left- Sided Weakness. Events since last encounter no improvement in symptoms, continues to complain of left thigh pain and stiffness, left shoulder pain and restricted motion and left upper extremity shooting pain and weakness. Objective Physical Examination General Exam: Positive: Alert, Cooperative, No Acute Distress Eye Exam: Positive: PERRLA, Conjunctiva & lids normal, EOMI, Negative: Sclera icteric ENT Exam: Positive: Atraumatic, Mucous membr. moist/pink, Pharynx Normal Neck Exam: Positive: Supple Chest Exam: Positive: Clear to auscultation, Normal air movement Heart Exam: Positive: Rate Normal, Regular Rhythm, Normal S1, Normal S2, Negative: Murmurs, Rubs Telemetry: Positive: No significant arrhythmia Abdomen Exam: Positive: Normal bowel sounds, Soft, Negative: Tenderness, Hepatospenomegaly Extremity Exam: Positive: Normal pulses, Tenderness (left thigh lateral aspect) , Other (left shoulder tender to palpation and with restriction of abduction , internal and ext rotation), Negative: Clubbing, Cyanosis, Edema Skin Exam: Positive: Other skin issue (chronic stasis changes) Assessment /Plan Problems (1) Cervical myelopathy Status: Chronic Problem Text: MRI shows features of mild cervical myelopathy neurology following continue PT. (2) Shoulder joint painful on movement Status: Acute Problem Text: weakness along with pain and restriction of movement at the shoulder, pain radiates from shoulder to hand. shoulder MRI shows complete rotator cuff tear with symptoms of impingement patient was seen by ortho To follow up with Dr aldana as outpatient. MRi spine with mild features of cervical myelopathy but unchanged from before. will try steroids. for antiinflammatory effect. (3) Left leg weakness Status: Chronic Problem Text: No stroke In MRI Has vascular abnormality causing mass effect at the ponto medullary junction. 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 (7) Morbid obesity Status: Chronic (8) Diastolic CHF Status: Chronic (9) LUCA (obstructive sleep apnea) Status: Chronic Problem Text: uses cpap (10) Anxiety and depression Status: Chronic (11) Restless leg syndrome Status: Chronic (12) Fatty liver Status: Chronic (13) Neuropathy Status: Chronic (14) Diabetes Status: Chronic (15) Hypertension Status: Chronic (16) Gout Status: Chronic (17) Lung cancer Status: Resolved Problem Text: squamous cell cancer s/p resection (18) Hyperlipidemia Status: Chronic (19) COPD (chronic obstructive pulmonary disease) Status: Chronic Plan/VTE VTE Prophylaxis Ordered?: Yes VS, I&O, 24H, Fishbone Vital Signs/I&O Vital Signs Date Time Temp Pulse Resp B/P (MAP) Pulse Ox O2 Delivery O2 Flow Rate FiO2 10/04/16 09:23 83 146/72 10/04/16 06:00 97.7 18 98 Nasal Cannula 3.0 I&O- Last 24 Hours up to 6 AM 10/04/16 06:00 Intake Total 1200 ml Output Total 1800 ml Balance -600 ml Laboratory Data 24H LABS Laboratory Tests 2 10/04/16 06:14: White Blood Count 8.5, Red Blood Count 3.96L, Hemoglobin 13.0L, Hematocrit 39.0L , Mean Corpuscular Volume 98.6H, Mean Corpuscular Hemoglobin 33.0, Mean Corpuscular Hemoglobin Concent 33.4, Red Cell Distribution Width 14.9H, Platelet Count 188, Neutrophils (%) (Auto) 75.3H, Lymphocytes (%) (Auto) 14.0L, Monocytes (%) (Auto) 7.1H, Eosinophils (%) (Auto) 1.3, Basophils (%) (Auto) 0.6 , Neutrophils # (Auto) 6.4, Lymphocytes # (Auto) 1.3L, Monocytes # (Auto) 0.6, Eosinophils # (Auto) 0.1, Basophils # (Auto) 0.0, Large Unclassified Cells % 1.7 , Large Unclassified Cells # 0.1, Anion Gap 12, Glomerular Filtration Rate > 60.0, Blood Urea Nitrogen 26H, Creatinine 1.25, Sodium Level 141, Potassium Level 3.9, Chloride Level 102, Carbon Dioxide Level 27, Calcium Level 8.6L, Magnesium Level 2.0 CBC/BMP Laboratory Tests 10/04/16 06:14 Red Blood Count 3.96 L, Mean Corpuscular Volume 98.6 H, Mean Corpuscular Hemoglobin 33.0, Mean Corpuscular Hemoglobin Concent 33.4, Red Cell Distribution Width 14.9 H, Neutrophils (%) (Auto) 75.3 H, Lymphocytes (%) (Auto ) 14.0 L, Monocytes (%) (Auto) 7.1 H, Eosinophils (%) (Auto) 1.3, Basophils (%) (Auto) 0.6, Neutrophils # (Auto) 6.4, Lymphocytes # (Auto) 1.3 L, Monocytes # ( Auto) 0.6, Eosinophils # (Auto) 0.1, Basophils # (Auto) 0.0, Calcium Level 8.6 L Microbiology Microbiology 10/01/16 Gastrointestinal Tract Panel (PCR) - Final, Complete LANE CHING MD Oct 04, 2016 09:37
[2016-10-04] MEDS: LACTIC ACID 12% LOTION 225 GM BTL TOP SCH (11:27)
[2016-10-04 14:00] VITALS: BP 126/74
[2016-10-04] MEDS: SERTRALINE HCL 25 MG TABLET PO SCH (20:35)
[2016-10-04 22:00] VITALS: BP 132/80
[2016-10-04] MEDS: IPRATROPIUM 0.5MG/ALBUTEROL 2.5MG INH SOL UD 3ML (DUONEB)(J7620) INH PRN (23:13)
[2016-10-05] MEDS: SLF 3 ML SYR IV SCH ×3 (05:35→20:54)
[2016-10-05 06:00] VITALS: BP 136/80
[2016-10-05 06:49] LABS: BASO % 0.6 % (0.0-1.0); EOS # 0.1 K/mm3 (0.0-0.50); EOS % 1.1 % (0.0-3.0); LARGE UNSTAINED CELL # 0.1 K/mm3 (0.0-0.4); LARGE UNSTAINED CELL % 1.7 % (0.0-4.0); LYMPH # 1.3 K/mm3 (1.5-4.5); LYMPH % 15.2 % (24.0-44.0); MEAN CORPUSCULAR HEMOGLOBIN 32.6 pg (27.0-33.0); MEAN CORPUSCULAR HGB CONC 32.9 g/dl (32.0-36.5); MEAN CORPUSCULAR VOLUME 99.3 fl (80.0-96.0); MONO # 0.6 K/mm3 (0.0-0.8); MONO % 7.2 % (0.0-5.0); NEUTROPHILS # 5.8 K/mm3 (1.8-7.7); NEUTROPHILS % 74.3 % (36.0-66.0); PLATELET COUNT, AUTOMATED 169 k/mm3 (150-450); RED CELL DISTRIBUTION WIDTH 14.9 % (11.5-14.5); WHITE BLOOD COUNT 7.8 K/mm3 (4.0-10.0)
[2016-10-05 07:09] LABS: ANION GAP 10 MEQ/L (8-16); BLOOD UREA NITROGEN 26 MG/DL (7-18); CALCIUM LEVEL 8.7 MG/DL (8.8-10.2); CARBON DIOXIDE LEVEL 28 MEQ/L (21-32); CHLORIDE LEVEL 102 MEQ/L (98-107); GLOMERULAR FILTRATION RATE > 60.0 (>49); GLUCOSE, FASTING 129 MG/DL (80-110); MAGNESIUM LEVEL 1.9 MG/DL (1.8-2.4); POTASSIUM SERUM 3.7 MEQ/L (3.5-5.1); SODIUM LEVEL 140 MEQ/L (136-145)
[2016-10-05] MEDS: ADVAIR HFA 230/21MCG INHALER INH SCH ×2 (07:52→19:49)
[2016-10-05] MEDS: TIOTROPIUM INHALER/CAPSULE (SPIRIVA) INH SCH (07:52)
[2016-10-05] MEDS: IPRATROPIUM 0.5MG/ALBUTEROL 2.5MG INH SOL UD 3ML (DUONEB)(J7620) NEB SCH ×3 (08:00→19:49)
--- NOTE | 2016-10-05 10:16 | IPNPDOC ---
Subjective Date Seen The patient was seen on 10/05/16. Subjective Chief Complaint/HPI The patient is a 65-year-old male admitted with a reason for visit of Left- Sided Weakness. Events since last encounter left sided weakness resolving, was able to walk in the corridor 2 laps yesterday. Objective Physical Examination General Exam: Positive: Alert, Cooperative, No Acute Distress Eye Exam: Positive: PERRLA, Conjunctiva & lids normal, EOMI, Negative: Sclera icteric ENT Exam: Positive: Atraumatic, Mucous membr. moist/pink, Pharynx Normal Neck Exam: Positive: Supple Chest Exam: Positive: Clear to auscultation, Normal air movement Heart Exam: Positive: Rate Normal, Regular Rhythm, Normal S1, Normal S2, Negative: Murmurs, Rubs Telemetry: Positive: No significant arrhythmia Abdomen Exam: Positive: Normal bowel sounds, Soft, Negative: Tenderness, Hepatospenomegaly Extremity Exam: Positive: Normal pulses, Tenderness (left thigh lateral aspect) , Other (left shoulder tender to palpation and with restriction of abduction , internal and ext rotation), Negative: Clubbing, Cyanosis, Edema Skin Exam: Positive: Other skin issue (chronic stasis changes) Assessment /Plan Problems (1) Left leg weakness Status: Chronic Problem Text: recurrent weakness of extremities. No stroke In MRI Has vascular abnormality in MRA. 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 causing brain compression from the mass effect at the ponto medullary junction. this may also cause left sided weakness (2) Cervical myelopathy Status: Chronic Problem Text: MRI shows features of mild cervical cord compression this may also be the cause of his left sided weakness. neurology following. will need to follow up with a neurosurgeon as outpatient. continue PT. (3) Shoulder joint painful on movement Status: Acute Problem Text: weakness along with pain and restriction of movement at the shoulder, pain radiates from shoulder to hand. shoulder MRI shows complete rotator cuff tear with symptoms of impingement patient was seen by ortho To follow up with Dr aldana as outpatient. MRi spine with mild features of cervical myelopathy but unchanged from before. will try steroids. for antiinflammatory effect. 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 (7) Morbid obesity Status: Chronic (8) Diastolic CHF Status: Chronic (9) LUCA (obstructive sleep apnea) Status: Chronic Problem Text: uses cpap (10) Anxiety and depression Status: Chronic (11) Restless leg syndrome Status: Chronic (12) Fatty liver Status: Chronic (13) Neuropathy Status: Chronic (14) Diabetes Status: Chronic (15) Hypertension Status: Chronic (16) Gout Status: Chronic (17) Lung cancer Status: Resolved Problem Text: squamous cell cancer s/p resection (18) Hyperlipidemia Status: Chronic (19) COPD (chronic obstructive pulmonary disease) Status: Chronic Problem Text: with chronic respiratory failure on oxygen difficulty in lying down flat in bed. need head elevation (20) Difficulty transferring Status: Chronic Problem Text: due to morbid obesity and severe shoulder pain due to complete rotator cuff tear of left shoulder with weakness of left shoulder and left upper extremity patient has difficulty in pulling up his body to sitting position from lying down. Plan/VTE VTE Prophylaxis Ordered?: Yes VS, [facility]&O, [facility]/I[facility]O Vital Signs Date Time Temp Pulse Resp B/P (MAP) Pulse Ox O2 Delivery O2 Flow Rate FiO2 10/05/16 06:00 97.1 75 18 136/80 (98) 94 Room Air 10/04/16 23:06 3.0 I&O- Last 24 Hours up to 6 AM 10/05/16 05:59 Intake Total 2760 ml Output Total 3000 ml Balance -240 ml Laboratory Data 24H LABS Laboratory Tests 2 10/05/16 06:27: White Blood Count 7.8, Red Blood Count 3.89L, Hemoglobin 12.7L, Hematocrit 38.6L , Mean Corpuscular Volume 99.3H, Mean Corpuscular Hemoglobin 32.6, Mean Corpuscular Hemoglobin Concent 32.9, Red Cell Distribution Width 14.9H, Platelet Count 169, Neutrophils (%) (Auto) 74.3H, Lymphocytes (%) (Auto) 15.2L, Monocytes (%) (Auto) 7.2H, Eosinophils (%) (Auto) 1.1, Basophils (%) (Auto) 0.6 , Neutrophils # (Auto) 5.8, Lymphocytes # (Auto) 1.3L, Monocytes # (Auto) 0.6, Eosinophils # (Auto) 0.1, Basophils # (Auto) 0.0, Large Unclassified Cells % 1.7 , Large Unclassified Cells # 0.1, Anion Gap 10, Glomerular Filtration Rate > 60.0, Blood Urea Nitrogen 26H, Creatinine 1.10, Sodium Level 140, Potassium Level 3.7, Chloride Level 102, Carbon Dioxide Level 28, Calcium Level 8.7L, Magnesium Level 1.9 CBC/BMP Laboratory Tests 10/05/16 06:27 Red Blood Count 3.89 L, Mean Corpuscular Volume 99.3 H, Mean Corpuscular Hemoglobin 32.6, Mean Corpuscular Hemoglobin Concent 32.9, Red Cell Distribution Width 14.9 H, Neutrophils (%) (Auto) 74.3 H, Lymphocytes (%) (Auto ) 15.2 L, Monocytes (%) (Auto) 7.2 H, Eosinophils (%) (Auto) 1.1, Basophils (%) (Auto) 0.6, Neutrophils # (Auto) 5.8, Lymphocytes # (Auto) 1.3 L, Monocytes # ( Auto) 0.6, Eosinophils # (Auto) 0.1, Basophils # (Auto) 0.0, Calcium Level 8.7 L Microbiology Microbiology 10/01/16 Gastrointestinal Tract Panel (PCR) - Final, Complete LANE CHING MD Oct 05, 2016 10:16
[2016-10-05] MEDS: METAMUCIL (PSYLLIUM) PACKET PO SCH (10:29)
[2016-10-05] MEDS: ASPIRIN 81 MG ENTERIC TAB PO SCH (10:29)
[2016-10-05] MEDS: FERROUS SULFATE 325MG TAB PO SCH (10:29)
[2016-10-05] MEDS: CARVedilol 6.25 MG TAB PO SCH ×2 (10:29→20:53)
[2016-10-05] MEDS: methylPREDNISolone 4 MG TAB PO SCH (10:29)
[2016-10-05] MEDS: ALLOPURINOL 300 MG TAB PO SCH (10:30)
[2016-10-05] MEDS: PRAVASTATIN 20 MG TAB PO SCH (10:30)
[2016-10-05] MEDS: CYANOCOBALAMIN 500 MCG TAB PO SCH (10:30)
[2016-10-05] MEDS: OMEPRAZOLE 20 MG CAP PO SCH (10:30)
[2016-10-05] MEDS: MULTIVITAMINS/MINERALS THERAP 1 TAB PO SCH (10:30)
[2016-10-05] MEDS: MAGNESIUM OXIDE 400 MG TAB (MAG-OX) PO SCH (10:30)
[2016-10-05] MEDS: GABAPENTIN 300 MG CAP PO SCH ×3 (10:30→20:54)
[2016-10-05] MEDS: rOPINIRole 1MG TAB PO SCH ×2 (10:30→20:53)
[2016-10-05] MEDS: LACTIC ACID 12% LOTION 225 GM BTL TOP SCH (10:31)
[2016-10-05 14:00] VITALS: BP 165/91
[2016-10-05] MEDS: SERTRALINE HCL 25 MG TABLET PO SCH (20:54)
[2016-10-05 22:00] VITALS: BP 123/66
[2016-10-06] MEDS: IPRATROPIUM 0.5MG/ALBUTEROL 2.5MG INH SOL UD 3ML (DUONEB)(J7620) NEB SCH ×3 (01:01→14:01)
[2016-10-06] MEDS: SLF 3 ML SYR IV SCH ×2 (05:08→12:32)
[2016-10-06 06:00] VITALS: BP 153/73
[2016-10-06 06:54] LABS: ANION GAP 6 MEQ/L (8-16); BLOOD UREA NITROGEN 22 MG/DL (7-18); CALCIUM LEVEL 9.5 MG/DL (8.8-10.2); CARBON DIOXIDE LEVEL 31 MEQ/L (21-32); CHLORIDE LEVEL 101 MEQ/L (98-107); GLOMERULAR FILTRATION RATE > 60.0 (>49); GLUCOSE, FASTING 124 MG/DL (80-110); MAGNESIUM LEVEL 1.8 MG/DL (1.8-2.4); POTASSIUM SERUM 3.4 MEQ/L (3.5-5.1); SODIUM LEVEL 138 MEQ/L (136-145)
[2016-10-06 06:56] LABS: BASO % 0.6 % (0.0-1.0); EOS # 0.1 K/mm3 (0.0-0.50); EOS % 0.6 % (0.0-3.0); LARGE UNSTAINED CELL # 0.2 K/mm3 (0.0-0.4); LARGE UNSTAINED CELL % 1.6 % (0.0-4.0); LYMPH # 1.1 K/mm3 (1.5-4.5); LYMPH % 11.6 % (24.0-44.0); MEAN CORPUSCULAR HEMOGLOBIN 33.2 pg (27.0-33.0); MEAN CORPUSCULAR HGB CONC 34.3 g/dl (32.0-36.5); MEAN CORPUSCULAR VOLUME 96.6 fl (80.0-96.0); MONO # 0.6 K/mm3 (0.0-0.8); MONO % 5.9 % (0.0-5.0); NEUTROPHILS # 7.6 K/mm3 (1.8-7.7); NEUTROPHILS % 79.7 % (36.0-66.0); PLATELET COUNT, AUTOMATED 190 k/mm3 (150-450); RED CELL DISTRIBUTION WIDTH 14.6 % (11.5-14.5); WHITE BLOOD COUNT 9.6 K/mm3 (4.0-10.0)
[2016-10-06] MEDS: TIOTROPIUM INHALER/CAPSULE (SPIRIVA) INH SCH (07:34)
[2016-10-06] MEDS: ADVAIR HFA 230/21MCG INHALER INH SCH (07:34)
[2016-10-06] MEDS: GABAPENTIN 300 MG CAP PO SCH (10:38)
[2016-10-06 10:39] VITALS: BP 153/73
[2016-10-06] MEDS: MAGNESIUM OXIDE 400 MG TAB (MAG-OX) PO SCH (10:39)
[2016-10-06] MEDS: rOPINIRole 1MG TAB PO SCH (10:39)
[2016-10-06] MEDS: OMEPRAZOLE 20 MG CAP PO SCH (10:39)
[2016-10-06] MEDS: CARVedilol 6.25 MG TAB PO SCH (10:39)
[2016-10-06] MEDS: MULTIVITAMINS/MINERALS THERAP 1 TAB PO SCH (10:39)
[2016-10-06] MEDS: CYANOCOBALAMIN 500 MCG TAB PO SCH (10:40)
[2016-10-06] MEDS: PRAVASTATIN 20 MG TAB PO SCH (10:40)
[2016-10-06] MEDS: FERROUS SULFATE 325MG TAB PO SCH (10:40)
[2016-10-06] MEDS: methylPREDNISolone 4 MG TAB PO SCH (10:40)
[2016-10-06] MEDS: LACTIC ACID 12% LOTION 225 GM BTL TOP SCH (10:41)
[2016-10-06] MEDS: ASPIRIN 81 MG ENTERIC TAB PO SCH (10:41)
[2016-10-06] MEDS: ALLOPURINOL 300 MG TAB PO SCH (10:41)
[2016-10-06] MEDS: METAMUCIL (PSYLLIUM) PACKET PO SCH (10:43)
[2016-10-06] MEDS ORDERED: POTASSIUM CHLORIDE 10 MEQ SR TABLET PO ONE (11:00)
[2016-10-06 14:00] VITALS: BP 148/86
--- NOTE | 2016-10-06 17:36 | DSES ---
DATE OF ADMISSION: 10/03/2016 DATE OF DISCHARGE: 10/06/2016 PRIMARY CARE PROVIDER: Dr. Lee NEUROLOGIST: Dr. Villalpando NEUROSURGEON: In [place] DISCHARGE DIAGNOSES: 1. Cervical spinal cord compression. 2. Left sided weakness thought to be due to either cervical cord compression or brain compression from abnormal blood vessels and mass effect of the pontine medullary junction. 3. 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 4. Complete rotator cuff tear of the left shoulder joint with possible impingement. 5. History of liposarcoma and surgical removal in 2010 with removal of the right kidney and part of the large intestine. 6. Chronic obstructive pulmonary disease (COPD). 7. Chronic respiratory failure with hypoxia, on home oxygen. 8. Morbid obesity. 9. Diastolic congestive heart failure (CHF). 10. Obstructive sleep apnea on CPAP. 11. Restless leg syndrome. 12. Anxiety and depression. 13. Diabetes with neuropathy. 14. Hypertension. 15. Gout. 16. Squamous cell cancer of the left lung with lobectomy. 17. Hyperlipidemia. 18. Fatty liver. 19. Chronic diarrhea from short bowel. 20. Difficulty with mobility and transferring due to morbid obesity. 21. Severe shoulder pain and weakness of the left arm. DISCHARGE MEDICATIONS: - acetaminophen 1000 mg by mouth every 6 hours as needed for pain - albuterol sulfate two puff inhalation four times a day as needed for shortness of breath - albuterol ipratropium nebulizer solution one solution every 4 hours as needed for shortness of breath - allopurinol 300 mg by mouth daily - ammonia lactate one dose topically daily - aspirin 81 mg by mouth daily - Coreg 6.25 mg by mouth twice a day - cyanocobalamin 500 mcg by mouth daily - cyclobenzaprine 10 mg by mouth three times a day as needed - ferrous sulfate 325 mg by mouth daily - Breo Ellipta 200/25 one puff inhalation daily - gabapentin 300 mg by mouth three times a day - hydroxyzine 50 mg by mouth every 12 hours as needed for anxiety - magnesium oxide 400 mg by mouth daily - multivitamin one tablet by mouth daily - omeprazole 20 mg by mouth daily - pravastatin 20 mg by mouth daily - Metamucil 1 gram by mouth daily - ropinirole 1 mg by mouth in the morning and 2 mg at bedtime - sertraline 25 mg at bedtime - Spiriva two inhalations daily HOSPITAL COURSE: This is a 65-year-old male who presented to the hospital with left sided weakness, sudden onset. The patient has been having this episodic weakness in different limbs going on for the past 6 months, sometimes it will be both legs, sometimes only one extremity. It will stay for 2 or 3 days and then recover spontaneously. The patient has been following with neurology for the same problem and has had multiple MRI this year. The patient's brain MRI and MRA showed abnormal vessels with dolichoectasia of the left vertebral and basilar arteries causing some mass effect of the pontine medullary junction. Also, the patient's MRA shows mild cervical cord compression so it was felt these two things could be causing his symptoms. The patient was also noted to have shoulder pain and so shoulder MRI was performed, which showed complete supraspinatus tendon tear. The patient was seen by orthopedics, Dr. Ackerman, and was diagnosed with complete rotator cuff tear, which he is going to followup as an outpatient. The patient was seen by physical therapy (PT) and neurology in the hospital. The patient was started on Medrol 8 mg daily. During the hospitalization, the patient's strength of the left lower extremity and left upper extremity improved and he was cleared by physical therapy (PT) and felt to be at his baseline functional status. The patient had appointment set up with neurosurgeon in [place] on 10/19/2016. The patient has been asked to keep this appointment with the surgeon for evaluation of his cervical cord compression, which could be causing his symptoms. At present, the patient's symptoms are almost resolved. Functionally he is close to his baseline and so is going to be discharged home. PHYSICAL EXAMINATION: VITAL SIGNS: Temperature 97.2, pulse 89, respiratory rate 18, blood pressure 153/73, pulse oximetry 95% on room air. GENERAL: The patient is awake, alert, oriented times three. Sitting up in bed in no acute distress. HEENT: Normocephalic, atraumatic. Moist mucous membranes. Anicteric eyes. CHEST: Clear to auscultation. There are some basilar crackles. CARDIOVASCULAR: S1, S2 regular. ABDOMEN: Obese, soft, nontender. Bowel sounds present. EXTREMITIES: No edema. LABORATORY DATA: WBC 9.6, hemoglobin 13.7, platelets 190. Sodium 138, potassium 3.4, chloride 101, bicarbonate 31, BUN 22, creatinine 1.1, glucose 124, calcium 9.5, magnesium 1.8, cardiac enzymes are negative. Gastrointestinal panel negative. Cervical spine MRI shows cervical spondylosis at C3-C4 through C7-T1 levels, most significant at the C4-C5 and C5-C6 levels. There is minimal spinal cord compression. MRI of the brain: There is no infarct, hemorrhage or midline shift. There is minimal volume loss. 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 There is mild mass effect on the brain stem at pontine medullary junction. DISPOSITION: The patient is discharged home in stable condition. DISCHARGE INSTRUCTIONS: The patient is to followup with neurology in 2 weeks. The patient is to followup at Dr. Ackerman. The patient is advised to followup with his neurosurgeon in [place]. The patient is to followup with primary care provider in 1 week. Carbohydrate consistent diet. Activity as tolerated.
== END 2016-10-06 15:20 | disposition home health service (06) | DRG 299 ==
LOC: EDBD 13:12 → M ED 13:12 → M ED INP 17:05 → M PCU 10-02 13:05 → OBSVTOIN 10-03 09:26 → M MS5PR 10-03 16:27
PROVIDERS: ADMIT Hospitalist; ATTEND Internal Medicine Nephrology
DX: I77.1 Stricture of artery (principal); G93.5 Compression of brain; Z68.41 Body mass index [BMI] 40.0-44.9, adult; J96.11 Chronic respiratory failure with hypoxia; I50.32 Chronic diastolic (congestive) heart failure; G95.20 Unspecified cord compression; G81.94 Hemiplegia, unspecified affecting left nondominant side; G45.0 Vertebro-basilar artery syndrome; Z66 Do not resuscitate; J44.9 Chronic obstructive pulmonary disease, unspecified; M75.122 Complete rotator cuff tear or rupture of left shoulder, not specified as traumatic; N18.2 Chronic kidney disease, stage 2 (mild); E66.01 Morbid (severe) obesity due to excess calories; G47.33 Obstructive sleep apnea (adult) (pediatric); E11.40 Type 2 diabetes mellitus with diabetic neuropathy, unspecified; M10.9 Gout, unspecified; E78.5 Hyperlipidemia, unspecified; F41.9 Anxiety disorder, unspecified; F32.9 Major depressive disorder, single episode, unspecified; Z90.5 Acquired absence of kidney; Z79.82 Long term (current) use of aspirin; Z79.899 Other long term (current) drug therapy; Z99.81 Dependence on supplemental oxygen; Z85.118 Personal history of other malignant neoplasm of bronchus and lung; Z99.89 Dependence on other enabling machines and devices; Z90.49 Acquired absence of other specified parts of digestive tract; Z87.891 Personal history of nicotine dependence; Z88.8 Allergy status to other drugs, medicaments and biological substances

== ENCOUNTER 2016-12-31 09:45 | Inpatient (IN) | payer MEDICARE, MEDICAID ==
[~2016-12-31] VITALS: Ht 193 cm; Wt 150.9 kg
[2016-12-31] VITALS (7 sets, daily range): BP systolic 117–130; BP diastolic 71–85; PULSE 93–103
[2016-12-31] MEDS: TIOTROPIUM INHALER/CAPSULE (SPIRIVA) INH SCH (08:00)
[~2016-12-31 09:45] MED LIST changes: +LEVO750T13 PO
[2016-12-31] MEDS ORDERED: FUROSEMIDE 40 MG/4 ML VIAL (J1940) IV ONE (10:00)
[2016-12-31] MEDS ORDERED: ELIQ5TAB PO (10:02)
[2016-12-31 10:07] LABS: ABG BASE EXCESS 0.6 (-2.0-2.0); ABG PARTIAL PRESSURE CO2 44.5 mmHg (35.0-45.0); ABG PARTIAL PRESSURE O2 148.4 mmHg (75.0-100.0); ABG TOTAL CO2 27.3 MEQ/L (23.0-31.0); ABG pH (ARTERIAL) 7.384 UNITS (7.350-7.450)
[2016-12-31 10:13] LABS: BASO % 0.3 % (0.0-1.0); EOS # 0.3 10^3/uL (0.0-0.50); EOS % 4.3 % (0.0-3.0); IMMATURE GRANULOCYTE % 1.6 % (0-0); LYMPH # 0.3 10^3/uL (1.5-4.5); LYMPH % 4.4 % (24.0-44.0); MEAN CORPUSCULAR HEMOGLOBIN 32.2 pg (27.0-33.0); MEAN CORPUSCULAR HGB CONC 33.1 g/dl (32.0-36.5); MEAN CORPUSCULAR VOLUME 97.3 fl (80.0-96.0); MONO # 0.6 10^3/uL (0.0-0.8); MONO % 7.5 % (0.0-5.0); NEUTROPHILS # 6.1 10^3/uL (1.8-7.7); NEUTROPHILS % 81.9 % (36.0-66.0); PLATELET COUNT, AUTOMATED 161 10^3/uL (150-450); RED CELL DISTRIBUTION WIDTH 15.1 % (11.5-14.5); WHITE BLOOD COUNT 7.5 10^3/uL (4.0-10.0)
[2016-12-31 10:42] LABS: ANION GAP 9 MEQ/L (8-16); BLOOD UREA NITROGEN 28 MG/DL (7-18); CALCIUM LEVEL 8.6 MG/DL (8.8-10.2); CARBON DIOXIDE LEVEL 28 MEQ/L (21-32); CHLORIDE LEVEL 102 MEQ/L (98-107); CREATININE FOR GFR 1.23 MG/DL (0.70-1.30); GLOMERULAR FILTRATION RATE > 60.0 (>49); GLUCOSE, FASTING 175 MG/DL (80-110); POTASSIUM SERUM 4.1 MEQ/L (3.5-5.1); SODIUM LEVEL 139 MEQ/L (136-145)
[2016-12-31 10:48] LABS: ALBUMIN 2.9 GM/DL (3.2-5.2); ALBUMIN/GLOBULIN RATIO 0.85 (1.00-1.93); BILIRUBIN,DIRECT 0.1 MG/DL (0.0-0.2); BILIRUBIN,TOTAL 0.4 MG/DL (0.2-1.0); TOTAL PROTEIN 6.3 GM/DL (6.4-8.2)
--- NOTE | 2016-12-31 11:08 | REP ---
Portable chest x-ray: Single view. History: Dyspnea and cough. Comparison chest x-ray is from October 01, 2016. Findings: EKG monitoring electrodes and oxygen delivery tubing are seen overlying the chest. The left lung shows a lower inflated volume than the right with some elevation of the left hemidiaphragm unchanged. This is a chronic finding unchanged from September 13, 2016 as well as October 01, 2016. No new infiltrate is seen. Heart is not enlarged. Pleural angles are sharp. No bony abnormality seen. Impression: Chronic volume loss left hemithorax. No new infiltrate. Otherwise no acute disease. The patient is apparently status post prior left upper lobectomy. Signed by Irving Gillette MD 12/31/2016 11:45 A
[2016-12-31] MEDS ORDERED: CARV12.5 PO (11:30)
[2016-12-31] MEDS ORDERED: GABA600T PO (11:30)
[2016-12-31] MEDS ORDERED: GLUCAGON FOR INJ 1 MG VIAL (J1610) SC PRN (11:45)
[2016-12-31] MEDS ORDERED: DEXTROSE 50% 50 ML SYRINGE IV PRN (11:45)
[2016-12-31] MEDS ORDERED: GLUCOSE 4 GM CHEW TABLET PO PRN (11:45)
[2016-12-31] MEDS ORDERED: LEVE1INJ5 SC (11:48)
[2016-12-31] MEDS: HumaLOG INSULIN (NovoLOG) PER UNIT SC SCH ×2 (12:00→17:30)
--- NOTE | 2016-12-31 12:14 | HPEPDOC ---
General Date of Admission Dec 31, 2016 at 11:43 Chief Complaint The patient is a 66-year-old male Presented to the ER with complaints of difficulty breathing. History of Present Illness Patient is a 66 year old male with a PMHx of COPD (on 3L O2), LUCA on CPAP, HTN, DM2, CKD3 (s/p Nephrectomy), Obesity, Gout, Neuropathy, Stage 1A Left upper lobe lung CA s/p lobectomy, and Stage 1A Lung CA of RLL s/p radiation. Was admitted from 12/09 12/24 for left upper and lower extremity pain 2/2 neuropathic pain. His hospital course was complicated with MRSA pneumonia and COPD exacerbation. In the hospital he received Doxycycline, Vancomycin, and Ceftaroline. He was sent home with Levofloxacin to complete antibiotic course. He presented to the hospital with chest pain and intractable left upper and lower extremity pain. Patient presented to the ER with complaints of difficulty breathing for the last 1 day duration. He has noted a nonproductive cough. Denies any fevers or chills. Denies any wheezing. Notes that he has experienced a worsening lower extremity swelling. Patient has also described that he may have potentially garment. A. fib this morning because he had some chest discomfort. He denies any current chest pain at this moment. Denied any diaphoresis, nausea or vomiting at the time of the event. Patient denies any abdominal pain, constipation, diarrhea, or dysuria. Patient notes that he has been compliant with medications at home. It is unsure whether this patient has been compliant with his fluid restrictions and diet. Home Medications Scheduled (Sertraline HCl) 25 Mg Tab, 25 MG PO QHS, (Reported) Allopurinol (Zyloprim) 300 Mg Tab, 300 MG PO DAILY, (Reported) Ammonium Lactate (Ammonium Lactate) 12 % Cre, 1 DOSE TOP DAILY, (Reported) USES ON FEET Apixaban Base (Eliquis) 5 Mg Tab, 5 MG PO BID, (Reported) Aspirin (Aspir-Low) 81 Mg Tab, 81 MG PO DAILY, (Reported) Carvedilol (Carvedilol) 12.5 Mg Tab, 12.5 MG PO BID, (Reported) Cyanocobalamin (Vitamin B-12) 500 Mcg Tab, 500 MCG PO DAILY, (Reported) Ferrous Sulfate (Ferrous Sulfate) 325 Mg Tab, 325 MG PO DAILY, (Reported) Fluticasone/Vilanterol (Breo Ellipta 200-25 Mcg/INH) 1 Inh Inh, 1 PUFF INH DAILY , (Reported) Gabapentin (Gabapentin) 600 Mg Tab, 600 MG PO TID, (Reported) Insulin Detemir (Levemir Flextouch) 100 Unit/Ml Inj, 40 UNIT SC BID, (Reported) Ipratropium Gardners (Ipratropium Gardners) 0.5 Mg/2.5 Ml Soln, 1 KENNA INH Q6H, ( Reported) Magnesium Oxide (Magnesium Oxide 400) 400 Mg Tab, 400 MG PO DAILY, (Reported) Multivitamins *[facility] STOCKED* (Thera M Plus *[facility] STOCKED*) 1 Tab Tab, 1 TAB PO DAILY, (Reported) Nystatin (Nystatin Oral Susp) 5 Ml Susp, 5 ML SS QID, (Reported) Omeprazole (Prilosec) 20 Mg Cap, 20 MG PO DAILY, (Reported) Pravastatin Sodium (Pravastatin Sodium) 20 Mg Tab, 20 MG PO DAILY, (Reported) Prednisone (Prednisone) 20 Mg Tab, 20 MG PO TID, (Reported) Psyllium (Metamucil) 0.52 Gm Cap, 1.04 GM PO DAILY, (Reported) Ropinirole Hydrochloride (Ropinirole HCl) 1 Mg Tab, 1 MG PO DAILY, (Reported) Ropinirole Hydrochloride (Ropinirole HCl) 1 Mg Tab, 2 MG PO QHS, (Reported) Tiotropium Gardners Monohydrate (Spiriva Respimat) 2.5 Mcg/Act Spr, 2 PUFFS INH DAILY, (Reported) Zonisamide (Zonisamide) 50 Mg Cap, 50 MG PO BID, (Reported) Scheduled PRN Acetaminophen (Acetaminophen) 500 Mg Tab, 1,000 MG PO Q6H PRN for PAIN, ( Reported) Albuterol Sulfate (Ventolin Hfa) 200 Puff/8 Gm Aers, 2 PUFF INH QID PRN for SHORTNESS OF BREATH, (Reported) ONLY USES WHEN ABSOLUTELY NEEDED Cyclobenzaprine HCl (Cyclobenzaprine HCl) 10 Mg Tab, 10 MG PO TID PRN for MUSCLE SPASMS, (Reported) Hydroxyzine HCl (Hydroxyzine HCl) 50 Mg Tab, 50 MG PO Q12H PRN for ANXIETY, ( Reported) Allergies Coded Allergies: Hexachlorophene (Verified Allergy, Mild, ITCHING, 12/31/16) Past Medical History Medical History COPD (on 3L O2), LUCA on CPAP, HTN, DM2, CKD3 (s/p Nephrectomy), Obesity, Gout, Neuropathy, Stage 1A Left upper lobe lung CA s/p lobectomy, and Stage 1A Lung CA of RLL s/p radiation Surgical History 1. Right-sided nephrectomy. 2. Right-sided adrenal gland resection. 3. Also left upper lobe lobectomy. 4. Cholecystectomy. 5. Tonsillectomy. 6. Liposarcoma removal with partial colectomy. 7. History of chest tube insertion. Family History Not pertinent given advanced age Social History - Denies the use of alcohol or illicit drugs; quit smoking 3 years ago. Smoker of 50 years at 1 pack per day - Hospitalization was discharged last week - Lives alone, but his daughter checks up on him Review of Symptoms Other systems 10 point review of systems complete, negative otherwise stated in HPI Vital Signs - Vitals: BP 120/73, HR 114, RR 32, Sat 92%CPAP, Temp 99.1F - General: Lying in bed, No acute distress, Speaking in full sentences, AAOx3 - HEENT: NC, AT, PERRLA, EOMI - CVS: Tachycardic, Regular rhythm, +S1S2, - Lungs: Fair air entry bilaterally, Clear to auscultation, No wheezing / rales / rhonchi - Abdomen: Soft, Non-distended, Non-tender - Extremities: 3+ pitting edema on right, 2+ pitting edema on left, No calf tenderness - Neuro: No focal motor or sensory deficit - Skin: No visible rashes Laboratory Data Labs 24H Laboratory Tests 2 12/31/16 09:58: Blood Gas Bicarbonate Standard 25.0, Arterial Blood pH 7.384, Arterial Blood Partial Pressure CO2 44.5, Arterial Blood Partial Pressure O2 148.4H, Arterial Blood Total CO2 27.3, Arterial Blood HCO3 26.0, Arterial Blood Base Excess 0.6, Arterial Blood Oxygen Saturation 99.0 12/31/16 10:03: Immature Granulocyte % (Auto) 1.6H, White Blood Count 7.5, Red Blood Count 4.13L , Hemoglobin 13.3L, Hematocrit 40.2L, Mean Corpuscular Volume 97.3H, Mean Corpuscular Hemoglobin 32.2, Mean Corpuscular Hemoglobin Concent 33.1, Red Cell Distribution Width 15.1H, Platelet Count 161, Neutrophils (%) (Auto) 81.9H, Lymphocytes (%) (Auto) 4.4L, Monocytes (%) (Auto) 7.5H, Eosinophils (%) (Auto) 4.3H, Basophils (%) (Auto) 0.3, Neutrophils # (Auto) 6.1, Lymphocytes # (Auto) 0.3L, Monocytes # (Auto) 0.6, Eosinophils # (Auto) 0.3, Basophils # (Auto) 0.0, Immature Granulocyte # (Auto) 0.1H, Nucleated Red Blood Cells % (auto) 0.0, Anion Gap 9, Glomerular Filtration Rate > 60.0, Lactic Acid Level 1.8, Blood Urea Nitrogen 28H, Creatinine 1.23, Sodium Level 139, Potassium Level 4.1, Chloride Level 102, Carbon Dioxide Level 28, Calcium Level 8.6L, Total Creatine Kinase 47, Aspartate Amino Transf (AST/SGOT) 17, Alanine Aminotransferase (ALT/ SGPT) 62, Alkaline Phosphatase 62, Total Bilirubin 0.4, Direct Bilirubin 0.1, Creatine Kinase MB 1.9, Creatine Kinase MB Relative Index 4.04H, Troponin I 0.02 , MO-Tzb-[id number]-Type Natriuretic Peptide 566H, Total Protein 6.3L, Albumin 2.9L, Albumin/Globulin Ratio 0.85L, Thyroid Stimulating Hormone (TSH) 0.961 CBC/BMP Laboratory Tests 12/31/16 10:03 Red Blood Count 4.13 L, Mean Corpuscular Volume 97.3 H, Mean Corpuscular Hemoglobin 32.2, Mean Corpuscular Hemoglobin Concent 33.1, Red Cell Distribution Width 15.1 H, Neutrophils (%) (Auto) 81.9 H, Lymphocytes (%) (Auto ) 4.4 L, Monocytes (%) (Auto) 7.5 H, Eosinophils (%) (Auto) 4.3 H, Basophils (% ) (Auto) 0.3, Neutrophils # (Auto) 6.1, Lymphocytes # (Auto) 0.3 L, Monocytes # (Auto) 0.6, Eosinophils # (Auto) 0.3, Basophils # (Auto) 0.0, Calcium Level 8.6 L, Total Creatine Kinase 47 Microbiology Microbiology 12/31/16 Blood Culture, Received Pending 12/31/16 Blood Culture, Received Pending Plan / VTE VTE Prophylaxis Ordered?: Yes Plan Plan Dyspnea - likely 2/2 acute exacerbation of CHF (Diastolic in nature) - Presented with difficulty breathing for 1 day duration - Physical without evidence of bilateral lower extremity pitting edema - Labs indicate a BNP of 566 - ABG does not show any signs of pCO2 retention; will follow repeat ABG - Chest x-ray 12/31: does not appear to show any signs of acute fluid overload, stable changes noted - ECHO 11/24: Preserved LV systolic function, impairment of LV diastolic function, mild pulmonary HTN, - s/p furosemide IV in the ER - Will continue with strict ins and outs, daily weights, and head of bed elevation - Continue home CPAP use - c/w Diuresis with Furosemide Atrial fibrillation - Will get EKG at this point - Continue rate control with carvedilol - Continue anticoagulation with Eliquis Macrocytic anemia - c/w Iron supplementation Swelling in Right extremity larger than left extremity - Chronically has had this problem - However, will get duplex ultrasound of right lower extremity to rule out the possibility of DVT Neuropathic pain of central origin, involving left upper and lower extremity - c/w Adjusted Gabapentin, Amitriptyline, Zonisamide and Tramdol LUCA on CPAP - allow home CPAP use Gout - c/w Allopurinol HTN - Blood pressure remains well-controlled - Will continue with carvedilol and low-dose hydrochlorothiazide CKD3 - Creatinine baseline of 1.5 to 1.7 - Creatinine currently better than baseline RLS - c/w Ropinirole DLP - c/w Pravastatin DM2 - c/w ISS and Levemir 40 BID Depression - c/w Amitriptyline Hx of Lung CA - Stage 1A NIKKI s/p lobectomy - Stage 1A RLL s/p radiation - c/w outpatient follow up History of adrenal insufficiency - Stress dose steroid before procedure or when he is critically ill GERD - c/w Omeprazole DVT prophylaxis - on full anticoagulation with ADALID Pabon MD Dec 31, 2016 12:14
[2016-12-31] MEDS ORDERED: ZONI50CA3 PO (12:24)
[2016-12-31] MEDS ORDERED: NYST50SS SS (12:30)
[2016-12-31] MEDS ORDERED: hydrOXYzine 50 MG TAB PO PRN (13:15)
[2016-12-31] MEDS ORDERED: CYCLOBENZAPRINE 10 MG TAB PO PRN (13:15)
[2016-12-31] MEDS ORDERED: ALBUTEROL 90 MCG/ACT 8GM HFA INHALER INH PRN (13:15)
[2016-12-31 13:42] LABS: ABG BASE EXCESS 1.9 (-2.0-2.0); ABG HCO3 27.8 MEQ/L (22.0-26.0); ABG PARTIAL PRESSURE CO2 48.5 mmHg (35.0-45.0); ABG PARTIAL PRESSURE O2 104.9 mmHg (75.0-100.0); ABG STANDARD HCO3 26.2 MEQ/L (22.0-26.0); ABG TOTAL CO2 29.3 MEQ/L (23.0-31.0); ABG pH (ARTERIAL) 7.376 UNITS (7.350-7.450)
[2016-12-31] MEDS: IPRATROPIUM 0.5MG/ALBUTEROL 2.5MG INH SOL UD 3ML (DUONEB)(J7620) INH PRN ×2 (14:16→19:57)
[2016-12-31] MEDS ORDERED: IPRA2IN INH (15:11)
[2016-12-31] MEDS ORDERED: PRED20TA PO (15:11)
[2016-12-31] MEDS ORDERED: methylPREDNISolone INJ 125 MG/2 ML VIAL (J2930) IV ONE (15:15)
--- NOTE | 2016-12-31 15:34 | REP ---
Right lower extremity Duplex Doppler venous ultrasound: Real time compression and duplex Doppler interrogation of the right lower extremity deep venous system is performed. The right common femoral, superficial femoral and popliteal veins are fully compressible with transducer pressure and demonstrate normal spontaneous and phasic flow, without evidence of deep venous thrombosis. Impression: No evidence of deep venous thrombosis of the right lower extremity femoral popliteal venous system. Signed by Jorden Weinstein MD 12/31/2016 03:25 P
[2016-12-31 15:58] LABS: ABG HCO3 31.3 MEQ/L (22.0-26.0); ABG PARTIAL PRESSURE CO2 58.8 mmHg (35.0-45.0); ABG PARTIAL PRESSURE O2 58.8 mmHg (75.0-100.0); ABG STANDARD HCO3 27.8 MEQ/L (22.0-26.0); ABG TOTAL CO2 33.1 MEQ/L (23.0-31.0); ABG pH (ARTERIAL) 7.344 UNITS (7.350-7.450)
[2016-12-31] MEDS ORDERED: CARVedilol 12.5 MG TAB PO ONE (16:00)
[2016-12-31] MEDS: METOPROLOL 5 MG/5 ML VIAL IV SCH ×3 (16:03→18:30)
[2016-12-31] MEDS: MAGNESIUM OXIDE 400 MG TAB (MAG-OX) PO SCH (16:07)
[2016-12-31] MEDS: OMEPRAZOLE 20 MG CAP PO SCH (16:07)
[2016-12-31] MEDS: MULTIVITAMINS/MINERALS THERAP 1 TAB PO SCH (16:07)
[2016-12-31] MEDS: GABAPENTIN 300 MG CAP PO SCH ×2 (16:09→20:35)
[2016-12-31] MEDS: ASPIRIN 81 MG ENTERIC TAB PO SCH (16:13)
[2016-12-31] MEDS: FERROUS SULFATE 325MG TAB PO SCH (16:13)
[2016-12-31] MEDS: FUROSEMIDE 40 MG/4 ML VIAL (J1940) IV SCH (16:16)
[2016-12-31 17:36] LABS: ABG BASE EXCESS 4.7 (-2.0-2.0); ABG HCO3 29.2 MEQ/L (22.0-26.0); ABG PARTIAL PRESSURE CO2 42.9 mmHg (35.0-45.0); ABG PARTIAL PRESSURE O2 133.5 mmHg (75.0-100.0); ABG STANDARD HCO3 28.7 MEQ/L (22.0-26.0); ABG TOTAL CO2 30.5 MEQ/L (23.0-31.0); ABG pH (ARTERIAL) 7.451 UNITS (7.350-7.450)
[2016-12-31] MEDS: CYANOCOBALAMIN 500 MCG TAB PO SCH (18:30)
[2016-12-31] MEDS: PRAVASTATIN 20 MG TAB PO SCH (18:30)
[2016-12-31] MEDS: LACTIC ACID 12% LOTION 225 GM BTL TOP SCH (18:30)
[2016-12-31] MEDS: ALLOPURINOL 300 MG TAB PO SCH (18:30)
[2016-12-31] MEDS: CARVedilol 12.5 MG TAB PO SCH (18:35)
[2016-12-31] MEDS: APIXABAN 5 MG TAB (ELIQUIS) PO SCH (20:35)
[2016-12-31] MEDS: rOPINIRole 1MG TAB PO SCH (20:36)
[2016-12-31] MEDS: SERTRALINE HCL 25 MG TABLET PO SCH (20:36)
[2016-12-31] MEDS: ZONISAMIDE 50 MG CAP (ZONEGRAN) PO SCH (20:36)
[2016-12-31] MEDS ORDERED: HumaLOG INSULIN (NovoLOG) PER UNIT SC SCH (21:00)
[2016-12-31] MEDS: ADVAIR HFA 230/21MCG INHALER INH SCH (21:00)
--- NOTE | 2016-12-31 21:43 | ECGEPIP ---
Stationary ECG Study [facility] Test Date: 2016-12-31 Pat Name: ARIN GUADARRAMA Department: Room: [place] [address] Gender: M Snailer: ria : 1950 Requested By: ADALID RAMIREZ Order Number: [id number] Reading MD: Nik Bucio Measurements Intervals [place] Rate: 112 P: 62 WI: 168 QRS: 44 QRSD: 104 T: 31 QT: 307 QTc: 421 Interpretive Statements Sinus tachycardia with PACs Low QRS complex voltage in the limb leads Nonspecific ST-T wave abnormalities No significant change when compared to prior tracing of earlier this date Electronically Signed On 12-31-2016 21:43:32 EST by Nik Bucio
[2016-12-31] MEDS: ACETAMINOPHEN TAB 650MG DOSE (2X325MG) PO PRN (22:11)
[2017-01-01] VITALS (10 sets, daily range): BP systolic 105–135; BP diastolic 57–86; O2SAT 94
[2017-01-01] MEDS: LEVEMIR (INSULIN DETEMIR) 1 UNITS/0.01ML SC SCH ×3 (00:12→20:40)
[2017-01-01] MEDS: HumaLOG INSULIN (NovoLOG) PER UNIT SC SCH ×5 (00:13→20:32)
[2017-01-01] MEDS: methylPREDNISolone INJ 125 MG/2 ML VIAL (J2930) IV SCH ×3 (00:14→17:10)
--- NOTE | 2017-01-01 01:15 | IPNPDOC ---
Text Note Date of Service The patient was seen on 01/01/17. NOTE Overnight, patient felt dull right-sided chest pain 4/10, nonradiating, nonreproducible on palpation and not worsened by inspiration. Patient on exam was resting in bed on BiPAP, communicative, with stable vitals. Patient was not diaphoretic, and in no acute distress. Stat EKG was performed and cardiac markers were negative. Patient felt better after Tylenol administration. VS,Fishbone, I+O VS, Fishbone, I+O Laboratory Tests 12/31/16 10:03 Red Blood Count 4.13 L, Mean Corpuscular Volume 97.3 H, Mean Corpuscular Hemoglobin 32.2, Mean Corpuscular Hemoglobin Concent 33.1, Red Cell Distribution Width 15.1 H, Neutrophils (%) (Auto) 81.9 H, Lymphocytes (%) (Auto ) 4.4 L, Monocytes (%) (Auto) 7.5 H, Eosinophils (%) (Auto) 4.3 H, Basophils (% ) (Auto) 0.3, Neutrophils # (Auto) 6.1, Lymphocytes # (Auto) 0.3 L, Monocytes # (Auto) 0.6, Eosinophils # (Auto) 0.3, Basophils # (Auto) 0.0, Calcium Level 8.6 L, Total Creatine Kinase 47 Vital Signs Date Time Temp Pulse Resp B/P (MAP) Pulse Ox O2 Delivery O2 Flow Rate FiO2 01/01/17 00:00 97.9 101 22 131/72 (91) 88 NIPPV (BIPAP/CPAP) 35 GME ATTESTATION ATTENDING NOTE The resident presented the case to me and i discussed a plan which she carried out as noted above SUSAN BAR DO Jan 01, 2017 01:15 PERRI SILVEIRA MD Jan 01, 2017 06:46
[2017-01-01] MEDS: IPRATROPIUM 0.5MG/ALBUTEROL 2.5MG INH SOL UD 3ML (DUONEB)(J7620) INH PRN ×2 (01:27→15:39)
[2017-01-01 02:02] LABS: ABG BASE EXCESS 5.8 (-2.0-2.0); ABG HCO3 32.4 MEQ/L (22.0-26.0); ABG PARTIAL PRESSURE CO2 55.3 mmHg (35.0-45.0); ABG PARTIAL PRESSURE O2 76.7 mmHg (75.0-100.0); ABG STANDARD HCO3 29.7 MEQ/L (22.0-26.0); ABG TOTAL CO2 34.1 MEQ/L (23.0-31.0); ABG pH (ARTERIAL) 7.386 UNITS (7.350-7.450)
[2017-01-01] MEDS ORDERED: FUROSEMIDE 20 MG/2 ML VIAL (J1940) IV STA (02:16)
--- NOTE | 2017-01-01 03:00 | REPUSA ---
CLINICAL HISTORY: Desaturation. COMMENTS: AP view of chest reveals left lower lobe pulmonary infiltrates. The cardiac silhouette is enlarged. The mediastinum and pulmonary vessels appear normal. Aorta is tor tuous. Degenerative changes are noted in the thoracic spine. IMPRESSION: Left lower lobe pulmonary infiltrates. Enlarged cardiac silhouette. Tortuous aorta. Thank you for your kind referral of this patient.
[2017-01-01 05:08] LABS: MEAN CORPUSCULAR HEMOGLOBIN 31.7 pg (27.0-33.0); MEAN CORPUSCULAR HGB CONC 32.3 g/dl (32.0-36.5); MEAN CORPUSCULAR VOLUME 98.4 fl (80.0-96.0); PLATELET COUNT, AUTOMATED 154 10^3/uL (150-450); RED CELL DISTRIBUTION WIDTH 14.7 % (11.5-14.5); WHITE BLOOD COUNT 10.5 10^3/uL (4.0-10.0)
[2017-01-01 05:10] LABS: ADD MANUAL DIFFER YES; DIFF SLIDE NUMBER 64; LEFT SHIFT POS FLAG; POSITIVE MORPH POS FLAG
[2017-01-01 05:30] LABS: ALBUMIN 2.7 GM/DL (3.2-5.2); ALBUMIN/GLOBULIN RATIO 0.64 (1.00-1.93); BILIRUBIN,TOTAL 0.5 MG/DL (0.2-1.0); CALCIUM LEVEL 9.1 MG/DL (8.8-10.2); CREATININE FOR GFR 1.38 MG/DL (0.70-1.30); GLOMERULAR FILTRATION RATE 55.2 (>49); MAGNESIUM LEVEL 1.9 MG/DL (1.8-2.4); TOTAL PROTEIN 6.9 GM/DL (6.4-8.2)
[2017-01-01 05:31] LABS: POTASSIUM SERUM 5.5 MEQ/L (3.5-5.1)
[2017-01-01 05:41] LABS: BANDS 3 % (< 11); PLATELET CLUMPS SMALL AMT; TOXIC VACUOLATION 1+
[2017-01-01 05:42] LABS: ANISOCYTOSIS 1+; POIKILOCYTOSIS 1+
[2017-01-01] MEDS: LACTIC ACID 12% LOTION 225 GM BTL TOP SCH (06:10)
--- NOTE | 2017-01-01 07:46 | ECGEPIP ---
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
[2017-01-01] MEDS: TIOTROPIUM INHALER/CAPSULE (SPIRIVA) INH SCH (08:20)
[2017-01-01 08:21] LABS: ABG BASE EXCESS 6.8 (-2.0-2.0); ABG HCO3 31.8 MEQ/L (22.0-26.0); ABG PARTIAL PRESSURE CO2 46.3 mmHg (35.0-45.0); ABG PARTIAL PRESSURE O2 76.9 mmHg (75.0-100.0); ABG STANDARD HCO3 30.7 MEQ/L (22.0-26.0); ABG TOTAL CO2 33.2 MEQ/L (23.0-31.0); ABG pH (ARTERIAL) 7.455 UNITS (7.350-7.450)
[2017-01-01] MEDS: ADVAIR HFA 230/21MCG INHALER INH SCH ×2 (08:21→19:55)
[2017-01-01] MEDS: PRAVASTATIN 20 MG TAB PO SCH (09:07)
[2017-01-01] MEDS: CYANOCOBALAMIN 500 MCG TAB PO SCH (09:08)
[2017-01-01] MEDS: GABAPENTIN 300 MG CAP PO SCH ×3 (09:08→20:40)
[2017-01-01] MEDS: ZONISAMIDE 50 MG CAP (ZONEGRAN) PO SCH ×2 (09:08→20:41)
[2017-01-01] MEDS: CARVedilol 12.5 MG TAB PO SCH ×2 (09:08→20:24)
[2017-01-01] MEDS: OMEPRAZOLE 20 MG CAP PO SCH (09:08)
[2017-01-01] MEDS: MULTIVITAMINS/MINERALS THERAP 1 TAB PO SCH (09:08)
[2017-01-01] MEDS: ALLOPURINOL 300 MG TAB PO SCH (09:08)
[2017-01-01] MEDS: APIXABAN 5 MG TAB (ELIQUIS) PO SCH ×2 (09:09→20:40)
[2017-01-01] MEDS: FERROUS SULFATE 325MG TAB PO SCH (09:09)
[2017-01-01] MEDS: MAGNESIUM OXIDE 400 MG TAB (MAG-OX) PO SCH (09:09)
[2017-01-01] MEDS: ASPIRIN 81 MG ENTERIC TAB PO SCH (09:09)
[2017-01-01] MEDS: rOPINIRole 1MG TAB PO SCH ×2 (09:09→20:41)
--- NOTE | 2017-01-01 11:25 | CCN ---
DATE: 12/31/2016 START TIME: 1016 hours STOP TIME: 1053 hours I was asked to attend [place] here in the intensive care unit. He is on noninvasive positive pressure ventilatory support. Patient has been examined. His chart is reviewed. I have spoken with the primary service. In essence, this is a gentleman with a complicated past medical history including advanced obstructive lung disease, history of lung cancer status post resection. Radiation therapy to a lesion on the right upper lobe. He has underlying obstructive sleep apnea. He is known to have significant cardiac dysfunction. He presented to the hospital not feeling well. He is more short of breath. Initially felt to have congestive heart failure. He had blood gases that showed worsening acidosis predominantly from a hypercapnic standpoint and was placed on noninvasive positive pressure ventilatory support. Adjustments were made by myself. His blood gas this morning on inspiratory pressure of 14, expiratory pressure of 10 and FiO2 of 40% has a pH 7.455, pCO2 46.3 and a pO2 of 76.9. Chest x-ray from this morning reviewed by myself suggest a left lower lobe infiltrate as well as some vascular congestion. He is currently not on antimicrobials and Levaquin has been added by myself. On exam, he is awake, alert and appropriate. He is on noninvasive support as outlined above. Most recent blood pressure 110/74, heart rate 100 and generally regular. He has been afebrile overnight. Other laboratories this morning show white blood cell count of 10.5, 89% segmented neutrophils, 3% bands, hemoglobin 14.0, platelet count of 154,000. Sodium 136, potassium 5.5, chloride 99, CO2 of 31, BUN 32, creatinine 1.38. On exam, he is awake, alert and appropriate. Bilevel positive airway pressure (BiPAP) mask in place. Trachea is in the midline. Chest shows diminished but symmetric expansion. There are coarse rhonchi scattered throughout. There are basilar crackles, left greater than right, but no convincing rubs. Cardiac exam mildly tachycardic. Peripheral pulses are diminished. There are at least 2+ pitting lower extremity edema bilaterally. Neurologically, he is awake, alert and appropriate. Moves all extremities well. Psychiatric generally with normal mood and affect. The most pressing problems requiring my presence at the bedside: 1. Acute on chronic respiratory failure with hypoxemic and hypercapnic. 2. Abnormal x-ray with suspected left lower lobe infiltrate, community-acquired. 3. Obstructive sleep apnea (LUCA). At this point, in view of his mildly elevated white count, although he is on steroids he does have some immature forms in the form of bands. This coupled with his x-ray does I believe meet criteria to start antimicrobials. Sputum cultures already been ordered by the primary service. I do believe he can tolerate being off the noninvasive support several times during the day as his cough will be ineffectual/inefficient with the mask in place. I also see that initially he did not wish to be intubated but has since rescinded that portion of his DO NOT RESUSCITATE. We will precede as outlined above. Prognosis is guarded at best in view of his multiorgan dysfunction. I left the bedside at 1053 hours. 37 minutes of critical care time delivered at the bedside, not including procedures.
[2017-01-01] MEDS: LevoFLOXacin IV 500 MG in APPROPRIATE DILUENT 1 EA IV SCH (11:51)
[2017-01-01] MEDS: NYSTATIN 500,000 U/5 ML SUSP UDC PO SCH ×3 (13:40→20:40)
--- NOTE | 2017-01-01 14:59 | IPNPDOC ---
Text Note Date of Service The patient was seen on 01/01/17. NOTE Subjective: Patient is a 66 year old male with a PMHx of COPD (on 3L O2), LUCA on CPAP, HTN, DM2, CKD3 (s/p Nephrectomy), Obesity, Gout, Neuropathy, Stage 1A Left upper lobe lung CA s/p lobectomy, and Stage 1A Lung CA of RLL s/p radiation. Was admitted from 12/09 12/24 for left upper and lower extremity pain 2/2 neuropathic pain. His hospital course was complicated with MRSA pneumonia and COPD exacerbation. In the hospital he received Doxycycline, Vancomycin, and Ceftaroline. He was sent home with Levofloxacin to complete antibiotic course. Patient presented to the emergency room collective difficulty breathing, was found to have signs of fluid overload in the emergency room. Was given a dose of Lasix. Hospitalist was called for admission. Patient was noted to ICU for COPD exacerbation as well as fluid overload. Patient was seen and examined at the bedside. Currently, patient has BiPAP in place is tolerating the BiPAP. Currently, he notes that his breathing has improved compared to arrival in the emergency room. He denies any chest pain. Swelling in his lower extremities has shown some signs of improvement. Denies any fevers. Objective: Vitals (See below) General: Lying in bed, no acute distress, comfortable, awake and alert, however , appears somewhat drowsy HEENT: NC, AT CVS: Tachycardic, +S1S2 Lungs: Coarse lung sounds bilaterally, evidence of wheezing Abdomen: Soft, ND, NT, obese Extremities: 2+ pitting edema on right leg, 1+ pitting edema on left leg, - Calf tenderness Assessment and plan: Dyspnea - likely multifactorial 2/2 acute exacerbation of CHF (Diastolic in nature); acute COPD exacerbation; possibly 2/2 underlying left sided pneumonia [Acute exacerbation of Diastolic CHF] - Physical signs of fluid overload - Labs indicate a BNP of 566 - ECHO 11/24: Preserved LV systolic function, impairment of LV diastolic function, mild pulmonary HTN - Chest x-ray 12/31: does not appear to show any signs of acute fluid overload, stable changes noted - c/w furosemide IV twice a day [Acute COPD exacerbation] - Evidence of coarse lung sounds with possible wheezing bilaterally - ABG show signs of PCO2 retention - Has been started on BiPAP noninvasive ventilation - c/w Solu-Medrol IV q8h - Dr. Watson (Pulmonology) has been consulted; appreciate his input [Possible left-sided pneumonia] - History of extensive pneumonia history, past - Has received several antibiotics throughout prior hospitalization - Antibiotics from prior admission include vancomycin, doxycycline, Ceftaroline, Levaquin - Patient has been restarted on levofloxacin (Day #1) s/p Atrial fibrillation with RVR - s/p metoprolol 5 mg IV; bridged back to carvedilol - Continue rate control with carvedilol - Continue anticoagulation with Eliquis Macrocytic anemia - c/w Iron supplementation and vitamin B12 supplementation Swelling in Right extremity larger than left extremity - Chronically has had this problem - Duplex ultrasound 12/31: Negative for any acute DVT Neuropathic pain of central origin, involving left upper and lower extremity - c/w Adjusted Gabapentin LUCA on CPAP - allow home CPAP use Gout - c/w Allopurinol HTN - Blood pressure remains well-controlled - Will continue with carvedilol CKD3 - Creatinine baseline of 1.5 to 1.7 - Creatinine has shown some elevation after diuretics, will continue with current diuretic therapy RLS - c/w Ropinirole DLP - c/w Pravastatin DM2 - c/w ISS and Levemir 40 BID Depression - c/w Sertraline Hx of Lung CA - Stage 1A NIKKI s/p lobectomy - Stage 1A RLL s/p radiation - c/w outpatient follow up History of adrenal insufficiency - Stress dose steroid before procedure or when he is critically ill GERD - c/w Omeprazole DVT prophylaxis - on full anticoagulation with Eliquis VS,Fishbone, I+O VS, Fishbone, I+O Laboratory Tests 01/01/17 05:00 Red Blood Count 4.41, Mean Corpuscular Volume 98.4 H, Mean Corpuscular Hemoglobin 31.7, Mean Corpuscular Hemoglobin Concent 32.3, Red Cell Distribution Width 14.7 H, Calcium Level 9.1, Aspartate Amino Transf (AST/SGOT) 29, Alanine Aminotransferase (ALT/SGPT) 56, Alkaline Phosphatase 54, Total Bilirubin 0.5, Total Protein 6.9, Albumin 2.7 L Vital Signs Date Time Temp Pulse Resp B/P (MAP) Pulse Ox O2 Delivery O2 Flow Rate FiO2 01/01/17 12:30 20 90 NIPPV (BIPAP/CPAP) 40 01/01/17 12:10 3.0 01/01/17 11:30 97.2 97 111/57 (75) I&O- Last 24 Hours up to 6 AM 01/02/17 06:00 Intake Total 740 ml Output Total 400 ml Balance 340 ml ADALID RAMIREZ MD Jan 01, 2017 14:59
[2017-01-01] MEDS: SERTRALINE HCL 25 MG TABLET PO SCH (20:41)
[2017-01-02] VITALS: BP 117/65
[2017-01-02] MEDS: methylPREDNISolone INJ 125 MG/2 ML VIAL (J2930) IV SCH ×2 (00:10→08:21)
[2017-01-02 04:08] VITALS: BP 140/72
[2017-01-02 04:40] LABS: MEAN CORPUSCULAR HEMOGLOBIN 32.9 pg (27.0-33.0); MEAN CORPUSCULAR HGB CONC 33.7 g/dl (32.0-36.5); MEAN CORPUSCULAR VOLUME 97.6 fl (80.0-96.0); PLATELET COUNT, AUTOMATED 130 10^3/uL (150-450); RED CELL DISTRIBUTION WIDTH 14.6 % (11.5-14.5); WHITE BLOOD COUNT 10.4 10^3/uL (4.0-10.0)
[2017-01-02 04:46] LABS: ADD MANUAL DIFFER YES; DIFF SLIDE NUMBER 49; LEFT SHIFT POS FLAG; POSITIVE MORPH POS FLAG
[2017-01-02 04:52] LABS: ALBUMIN 2.4 GM/DL (3.2-5.2); ALBUMIN/GLOBULIN RATIO 0.63 (1.00-1.93); BILIRUBIN,TOTAL 0.3 MG/DL (0.2-1.0); CALCIUM LEVEL 8.8 MG/DL (8.8-10.2); CREATININE FOR GFR 1.31 MG/DL (0.70-1.30); GLOMERULAR FILTRATION RATE 58.6 (>49); MAGNESIUM LEVEL 1.9 MG/DL (1.8-2.4); TOTAL PROTEIN 6.2 GM/DL (6.4-8.2)
[2017-01-02] MEDS: IPRATROPIUM 0.5MG/ALBUTEROL 2.5MG INH SOL UD 3ML (DUONEB)(J7620) INH PRN ×3 (05:06→23:39)
[2017-01-02 05:35] LABS: BANDS 3 % (< 11)
--- NOTE | 2017-01-02 05:56 | ECGEPIP ---
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
[2017-01-02] MEDS: ADVAIR HFA 230/21MCG INHALER INH SCH ×2 (07:31→20:56)
[2017-01-02] MEDS: TIOTROPIUM INHALER/CAPSULE (SPIRIVA) INH SCH (07:31)
[2017-01-02 07:42] VITALS: BP 131/78
[2017-01-02] MEDS: LEVEMIR (INSULIN DETEMIR) 1 UNITS/0.01ML SC SCH ×2 (08:18→21:04)
[2017-01-02] MEDS: NYSTATIN 500,000 U/5 ML SUSP UDC PO SCH ×4 (08:18→21:02)
[2017-01-02] MEDS: GABAPENTIN 300 MG CAP PO SCH ×3 (08:19→21:03)
[2017-01-02] MEDS: HumaLOG INSULIN (NovoLOG) PER UNIT SC SCH ×4 (08:19→21:04)
[2017-01-02] MEDS: PRAVASTATIN 20 MG TAB PO SCH (08:19)
[2017-01-02] MEDS: FERROUS SULFATE 325MG TAB PO SCH (08:19)
[2017-01-02] MEDS: OMEPRAZOLE 20 MG CAP PO SCH (08:20)
[2017-01-02] MEDS: MULTIVITAMINS/MINERALS THERAP 1 TAB PO SCH (08:20)
[2017-01-02] MEDS: APIXABAN 5 MG TAB (ELIQUIS) PO SCH ×2 (08:20→21:02)
[2017-01-02] MEDS: rOPINIRole 1MG TAB PO SCH ×2 (08:20→21:02)
[2017-01-02] MEDS: ALLOPURINOL 300 MG TAB PO SCH (08:20)
[2017-01-02] MEDS: ZONISAMIDE 50 MG CAP (ZONEGRAN) PO SCH ×2 (08:20→21:01)
[2017-01-02] MEDS: CYANOCOBALAMIN 500 MCG TAB PO SCH (08:20)
[2017-01-02] MEDS: MAGNESIUM OXIDE 400 MG TAB (MAG-OX) PO SCH (08:20)
[2017-01-02] MEDS: CARVedilol 12.5 MG TAB PO SCH ×2 (08:21→21:02)
[2017-01-02] MEDS: ASPIRIN 81 MG ENTERIC TAB PO SCH (08:21)
[2017-01-02] MEDS: LACTIC ACID 12% LOTION 225 GM BTL TOP SCH (08:22)
--- NOTE | 2017-01-02 10:49 | IPNPDOC ---
Text Note Date of Service The patient was seen on 01/02/17. NOTE Subjective: Patient is a 66 year old male with a PMHx of COPD (on 3L O2), LUCA on CPAP, HTN, DM2, CKD3 (s/p Nephrectomy), Obesity, Gout, Neuropathy, Stage 1A Left upper lobe lung CA s/p lobectomy, and Stage 1A Lung CA of RLL s/p radiation. Was admitted from 12/09 12/24 for left upper and lower extremity pain 2/2 neuropathic pain. His hospital course was complicated with MRSA pneumonia and COPD exacerbation. In the hospital he received Doxycycline, Vancomycin, and Ceftaroline. He was sent home with Levofloxacin to complete antibiotic course. Patient presented to the emergency room collective difficulty breathing, was found to have signs of fluid overload in the emergency room. Was given a dose of Lasix. Hospitalist was called for admission. Patient was noted to ICU for COPD exacerbation as well as fluid overload. Patient was seen and examined at the bedside. He is sitting up in bed on a nasal cannula without any distress. Patient denies any events overnight. He reports that his breathing has improved significantly. Notes that he's been having a productive cough. Denies any chest pain, palpitations or wheezing. Objective: Vitals (See below) General: Lying in bed, no acute distress, comfortable, AAOx3 HEENT: NC, AT CVS: RRR, +S1S2 Lungs: Coarse lung sounds bilaterally, mild wheezing persists bilaterally Abdomen: Soft, ND, NT, obese Extremities: 1+ pitting edema on right leg, trace pitting edema on left leg, - Calf tenderness Assessment and plan: Dyspnea - likely multifactorial 2/2 acute exacerbation of CHF (Diastolic in nature); acute COPD exacerbation; possibly 2/2 underlying left sided pneumonia [Acute exacerbation of Diastolic CHF] - Signs of acute fluid overload have been improving - Labs indicate a BNP of 566 on admission - ECHO 11/24: Preserved LV systolic function, impairment of LV diastolic function, mild pulmonary HTN - Chest x-ray 12/31: does not appear to show any signs of acute fluid overload, stable changes noted - Will continue with strict input and output, as well as daily weights - c/w furosemide IV twice a day [Acute COPD exacerbation] - Evidence of coarse lung sounds with possible wheezing bilaterally - ABG show signs of PCO2 retention - s/p BiPAP noninvasive ventilation - c/w Solu-Medrol IV q8h; will continue with current dose of steroids and taper down starting tomorrow - Dr. Watson (Pulmonology) has been consulted; appreciate his input [Possible left-sided pneumonia] - History of extensive pneumonia history, past - Has received several antibiotics throughout prior hospitalization - Antibiotics from prior admission include vancomycin, doxycycline, Ceftaroline, Levaquin - Patient has been restarted on levofloxacin (Day #2) - Will try to avoid using additional BiPAP ventilation if not required and uses CPAP if necessary; continue with nasal cannula oxygenation - Will advance diet if no additional BiPAP ventilation is required s/p Atrial fibrillation with RVR - s/p metoprolol 5 mg IV - c/w rate control with carvedilol - c/w anticoagulation with Eliquis Macrocytic anemia - c/w Iron supplementation and vitamin B12 supplementation Swelling in Right extremity larger than left extremity - Chronically has had this problem - Duplex ultrasound 12/31: Negative for any acute DVT Neuropathic pain of central origin, involving left upper and lower extremity - c/w Adjusted Gabapentin LUCA on CPAP - allow home CPAP use; will restart today; s/p BiPAP Gout - c/w Allopurinol HTN - Blood pressure remains well-controlled - c/w carvedilol and furosemide CKD3 - Creatinine baseline of 1.5 to 1.7 -Creatinine remains within baseline range RLS - c/w Ropinirole DLP - c/w Pravastatin DM2 - c/w ISS and Levemir 40 BID - Will increase Levemir to 45 BID Depression - c/w Sertraline Hx of Lung CA - Stage 1A NIKKI s/p lobectomy - Stage 1A RLL s/p radiation - c/w outpatient follow up History of adrenal insufficiency - Stress dose steroid before procedure or when he is critically ill GERD - c/w Omeprazole DVT prophylaxis - on full anticoagulation with Eliquis VS,Fishbone, I+O VS, Fishbone, I+O Laboratory Tests 01/02/17 04:23 Red Blood Count 3.71 L, Mean Corpuscular Volume 97.6 H, Mean Corpuscular Hemoglobin 32.9, Mean Corpuscular Hemoglobin Concent 33.7, Red Cell Distribution Width 14.6 H, Calcium Level 8.8, Aspartate Amino Transf (AST/SGOT) 12, Alanine Aminotransferase (ALT/SGPT) 41, Alkaline Phosphatase 50, Total Bilirubin 0.3, Total Protein 6.2 L, Albumin 2.4 L Vital Signs Date Time Temp Pulse Resp B/P (MAP) Pulse Ox O2 Delivery O2 Flow Rate FiO2 01/02/17 08:21 97 113/78 01/02/17 08:00 Nasal Cannula 3.0 01/02/17 08:00 94 01/02/17 07:42 97.9 20 01/02/17 04:08 35 ADALID RAMIREZ MD Jan 02, 2017 10:49
[2017-01-02] MEDS: LevoFLOXacin IV 500 MG in APPROPRIATE DILUENT 1 EA IV SCH (11:29)
[2017-01-02 12:10] VITALS: BP 113/74
[2017-01-02 16:07] VITALS: BP 111/59
[2017-01-02 20:00] VITALS: BP 124/62
[2017-01-02] MEDS: methylPREDNISolone INJ 40 MG/1 ML VIAL (J2920) IV SCH (21:01)
[2017-01-02] MEDS: SERTRALINE HCL 25 MG TABLET PO SCH (21:03)
[2017-01-03] VITALS (10 sets, daily range): BP systolic 107–146; BP diastolic 61–88; O2SAT 95
[2017-01-03] MEDS: IPRATROPIUM 0.5MG/ALBUTEROL 2.5MG INH SOL UD 3ML (DUONEB)(J7620) INH PRN ×3 (04:05→13:47)
[2017-01-03 04:31] LABS: BASO % 0.1 % (0.0-1.0); IMMATURE GRANULOCYTE % 1.7 % (0-0); LYMPH # 0.4 10^3/uL (1.5-4.5); LYMPH % 4.3 % (24.0-44.0); MEAN CORPUSCULAR HEMOGLOBIN 31.8 pg (27.0-33.0); MEAN CORPUSCULAR VOLUME 96.3 fl (80.0-96.0); MONO # 0.3 10^3/uL (0.0-0.8); MONO % 3.3 % (0.0-5.0); NEUTROPHILS # 8.9 10^3/uL (1.8-7.7); NEUTROPHILS % 90.6 % (36.0-66.0); PLATELET COUNT, AUTOMATED 129 10^3/uL (150-450); RED CELL DISTRIBUTION WIDTH 14.1 % (11.5-14.5); WHITE BLOOD COUNT 9.8 10^3/uL (4.0-10.0)
[2017-01-03 04:54] LABS: ALBUMIN 2.2 GM/DL (3.2-5.2); ALBUMIN/GLOBULIN RATIO 0.65 (1.00-1.93); ALKALINE PHOSPHATASE 49 U/L (45-117); ALT/SGPT 37 U/L (12-78); ANION GAP 5 MEQ/L (8-16); AST/SGOT 10 U/L (7-37); BILIRUBIN,TOTAL 0.3 MG/DL (0.2-1.0); BLOOD UREA NITROGEN 39 MG/DL (7-18); CALCIUM LEVEL 8.6 MG/DL (8.8-10.2); CARBON DIOXIDE LEVEL 32 MEQ/L (21-32); CHLORIDE LEVEL 98 MEQ/L (98-107); CREATININE FOR GFR 1.18 MG/DL (0.70-1.30); GLOMERULAR FILTRATION RATE > 60.0 (>49); GLUCOSE, FASTING 175 MG/DL (80-110); MAGNESIUM LEVEL 1.8 MG/DL (1.8-2.4); SODIUM LEVEL 135 MEQ/L (136-145); TOTAL PROTEIN 5.6 GM/DL (6.4-8.2)
[2017-01-03] MEDS: ADVAIR HFA 230/21MCG INHALER INH SCH ×2 (08:11→19:48)
[2017-01-03] MEDS: TIOTROPIUM INHALER/CAPSULE (SPIRIVA) INH SCH (08:12)
[2017-01-03] MEDS: ZONISAMIDE 50 MG CAP (ZONEGRAN) PO SCH ×2 (08:20→20:32)
[2017-01-03] MEDS: methylPREDNISolone INJ 40 MG/1 ML VIAL (J2920) IV SCH ×2 (08:20→20:32)
[2017-01-03] MEDS: NYSTATIN 500,000 U/5 ML SUSP UDC PO SCH ×4 (08:20→20:34)
[2017-01-03] MEDS: rOPINIRole 1MG TAB PO SCH ×2 (08:20→20:32)
[2017-01-03] MEDS: GABAPENTIN 300 MG CAP PO SCH ×3 (08:20→20:34)
[2017-01-03] MEDS: MAGNESIUM OXIDE 400 MG TAB (MAG-OX) PO SCH (08:20)
[2017-01-03] MEDS: FERROUS SULFATE 325MG TAB PO SCH (08:21)
[2017-01-03] MEDS: APIXABAN 5 MG TAB (ELIQUIS) PO SCH ×2 (08:21→20:34)
[2017-01-03] MEDS: ALLOPURINOL 300 MG TAB PO SCH (08:21)
[2017-01-03] MEDS: CYANOCOBALAMIN 500 MCG TAB PO SCH (08:21)
[2017-01-03] MEDS: MULTIVITAMINS/MINERALS THERAP 1 TAB PO SCH (08:21)
[2017-01-03] MEDS: OMEPRAZOLE 20 MG CAP PO SCH (08:21)
[2017-01-03] MEDS: ASPIRIN 81 MG ENTERIC TAB PO SCH (08:21)
[2017-01-03] MEDS: PRAVASTATIN 20 MG TAB PO SCH (08:21)
[2017-01-03] MEDS: LEVEMIR (INSULIN DETEMIR) 1 UNITS/0.01ML SC SCH ×2 (08:22→20:50)
[2017-01-03] MEDS: LACTIC ACID 12% LOTION 225 GM BTL TOP SCH (08:22)
[2017-01-03] MEDS: CARVedilol 12.5 MG TAB PO SCH ×2 (08:23→20:33)
[2017-01-03] MEDS: HumaLOG INSULIN (NovoLOG) PER UNIT SC SCH ×4 (08:23→20:50)
--- NOTE | 2017-01-03 11:52 | IPNPDOC ---
Text Note Date of Service The patient was seen on 01/03/17. NOTE Subjective: Patient is a 66 year old male with a PMHx of COPD (on 3L O2), LUCA on CPAP, HTN, DM2, CKD3 (s/p Nephrectomy), Obesity, Gout, Neuropathy, Stage 1A Left upper lobe lung CA s/p lobectomy, and Stage 1A Lung CA of RLL s/p radiation. Was admitted from 12/09 12/24 for left upper and lower extremity pain 2/2 neuropathic pain. His hospital course was complicated with MRSA pneumonia and COPD exacerbation. In the hospital he received Doxycycline, Vancomycin, and Ceftaroline. He was sent home with Levofloxacin to complete antibiotic course. Patient presented to the emergency room collective difficulty breathing, was found to have signs of fluid overload in the emergency room. Was given a dose of Lasix. Hospitalist was called for admission. Patient was noted to ICU for COPD exacerbation as well as fluid overload. Patient was seen and examined at the bedside. He notes his breathing has improved. He still notes a productive cough. Denies any chest pain, palpitations. Reports improvement in LE edema. Objective: Vitals (See below) General: Lying in bed, no acute distress, comfortable, AAOx3 HEENT: NC, AT CVS: RRR, +S1S2 Lungs: Coarse lung sounds bilaterally, mild wheezing persists bilaterally Abdomen: Soft, ND, NT, obese Extremities: 1+ pitting edema on right leg, trace pitting edema on left leg, - Calf tenderness Assessment and plan: Dyspnea - likely multifactorial 2/2 acute exacerbation of CHF (Diastolic in nature); acute COPD exacerbation; possibly 2/2 underlying left sided pneumonia [Acute exacerbation of Diastolic CHF] - Signs of acute fluid overload have been improving - Labs indicate a BNP of 566 on admission - ECHO 11/24: Preserved LV systolic function, impairment of LV diastolic function, mild pulmonary HTN - Chest x-ray 12/31: does not appear to show any signs of acute fluid overload, stable changes noted - Will continue with strict input and output, as well as daily weights - Restarted Furosemide BID [Acute COPD exacerbation] - Evidence of coarse lung sounds with possible wheezing bilaterally - ABG show signs of PCO2 retention - s/p BiPAP noninvasive ventilation - c/w Solu-Medrol IV q8h; dose has been reduced by Pulmonary; will continue with current dose and change to prednisone tomorrow - Dr. Watson / Dr. Eugene (Pulmonology) has been consulted - have signed off [Possible left-sided pneumonia] - History of extensive pneumonia history, past - Has received several antibiotics throughout prior hospitalization - Antibiotics from prior admission include vancomycin, doxycycline, Ceftaroline, Levaquin - Will change Levaquin to PO (Day #3) - Will downgrade to PCU; given improvement in respiratory status; not requiring additional BIPAP; will c/w home CPAP s/p Atrial fibrillation with RVR - s/p metoprolol 5 mg IV - c/w rate control with carvedilol - c/w anticoagulation with Eliquis Macrocytic anemia - c/w Iron supplementation and vitamin B12 supplementation Swelling in Right extremity larger than left extremity - Chronically has had this problem - Duplex ultrasound 12/31: Negative for any acute DVT Neuropathic pain of central origin, involving left upper and lower extremity - c/w Adjusted Gabapentin LUCA on CPAP - allow home CPAP use; s/p BiPAP Gout - c/w Allopurinol HTN - Blood pressure remains well-controlled - c/w carvedilol and furosemide CKD3 - Creatinine baseline of 1.5 to 1.7 - Creatinine remains within baseline range RLS - c/w Ropinirole DLP - c/w Pravastatin DM2 - c/w ISS and Levemir 45 BID Depression - c/w Sertraline Hx of Lung CA - Stage 1A NIKKI s/p lobectomy - Stage 1A RLL s/p radiation - c/w outpatient follow up History of adrenal insufficiency - Stress dose steroid before procedure or when he is critically ill GERD - c/w Omeprazole DVT prophylaxis - on full anticoagulation with Eliquis VS,Fishbone, I+O VS, Fishbone, I+O Laboratory Tests 01/03/17 04:18 Red Blood Count 3.49 L, Mean Corpuscular Volume 96.3 H, Mean Corpuscular Hemoglobin 31.8, Mean Corpuscular Hemoglobin Concent 33.0, Red Cell Distribution Width 14.1, Neutrophils (%) (Auto) 90.6 H, Lymphocytes (%) (Auto) 4.3 L, Monocytes (%) (Auto) 3.3, Eosinophils (%) (Auto) 0.0, Basophils (%) (Auto ) 0.1, Neutrophils # (Auto) 8.9 H, Lymphocytes # (Auto) 0.4 L, Monocytes # (Auto ) 0.3, Eosinophils # (Auto) 0.0, Basophils # (Auto) 0.0, Calcium Level 8.6 L, Aspartate Amino Transf (AST/SGOT) 10, Alanine Aminotransferase (ALT/SGPT) 37, Alkaline Phosphatase 49, Total Bilirubin 0.3, Total Protein 5.6 L, Albumin 2.2 L Vital Signs Date Time Temp Pulse Resp B/P (MAP) Pulse Ox O2 Delivery O2 Flow Rate FiO2 01/03/17 08:23 90 108/88 01/03/17 08:20 22 95 Nasal Cannula 3.0 01/03/17 03:00 97.5 01/02/17 04:08 35 I&O- Last 24 Hours up to 6 AM 01/04/17 06:00 Intake Total 480 ml Balance 480 ml ADALID RAMIREZ MD Jan 03, 2017 11:52
[2017-01-03] MEDS: LevoFLOXacin 500 MG TABLET PO SCH (12:05)
[2017-01-03] MEDS: FUROSEMIDE 40 MG/4 ML VIAL (J1940) IV SCH (17:28)
[2017-01-03] MEDS: SERTRALINE HCL 25 MG TABLET PO SCH (20:32)
[2017-01-03] MEDS ORDERED: predniSONE 20 MG TAB PO SCH (21:00)
[2017-01-03] MEDS ORDERED: MORPHINE 2 MG/ML 1ML SYRINGE As Ordered ONE (23:04)
[2017-01-03] MEDS ORDERED: MORPHINE 2 MG/ML 1ML SYRINGE IV ONE (23:15)
[2017-01-03] MEDS ORDERED: CARVedilol 6.25 MG TAB PO ONE (23:30)
[2017-01-03 23:49] LABS: MAGNESIUM LEVEL 1.9 MG/DL (1.8-2.4); PHOSPHORUS LEVEL 2.1 MG/DL (2.5-4.9)
[2017-01-04] MEDS: ACETAMINOPHEN TAB 650MG DOSE (2X325MG) PO PRN (01:56)
[2017-01-04] MEDS ORDERED: CARVedilol 3.125 MG TAB PO ONE (02:00)
[2017-01-04 03:11] LABS: BASO % 0.2 % (0.0-1.0); IMMATURE GRANULOCYTE % 2.3 % (0-0); LYMPH # 0.4 10^3/uL (1.5-4.5); LYMPH % 3.5 % (24.0-44.0); MEAN CORPUSCULAR HEMOGLOBIN 32.2 pg (27.0-33.0); MEAN CORPUSCULAR VOLUME 97.8 fl (80.0-96.0); MONO # 0.3 10^3/uL (0.0-0.8); MONO % 3.3 % (0.0-5.0); NEUTROPHILS # 8.9 10^3/uL (1.8-7.7); NEUTROPHILS % 90.7 % (36.0-66.0); PLATELET COUNT, AUTOMATED 140 10^3/uL (150-450); RED CELL DISTRIBUTION WIDTH 14.5 % (11.5-14.5); WHITE BLOOD COUNT 9.9 10^3/uL (4.0-10.0)
[2017-01-04 03:33] LABS: ALBUMIN 2.2 GM/DL (3.2-5.2); ALBUMIN/GLOBULIN RATIO 0.63 (1.00-1.93); ALKALINE PHOSPHATASE 73 U/L (45-117); ALT/SGPT 43 U/L (12-78); ANION GAP 6 MEQ/L (8-16); AST/SGOT 14 U/L (7-37); BILIRUBIN,TOTAL 0.2 MG/DL (0.2-1.0); BLOOD UREA NITROGEN 54 MG/DL (7-18); CALCIUM LEVEL 8.6 MG/DL (8.8-10.2); CARBON DIOXIDE LEVEL 31 MEQ/L (21-32); CHLORIDE LEVEL 100 MEQ/L (98-107); CREATININE FOR GFR 1.82 MG/DL (0.70-1.30); GLOMERULAR FILTRATION RATE 40.1 (>49); GLUCOSE, FASTING 309 MG/DL (80-110); MAGNESIUM LEVEL 1.8 MG/DL (1.8-2.4); POTASSIUM SERUM 4.5 MEQ/L (3.5-5.1); SODIUM LEVEL 137 MEQ/L (136-145); TOTAL PROTEIN 5.7 GM/DL (6.4-8.2)
[2017-01-04 03:40] LABS: ERYTHROCYTE SEDIMENTATION RATE 62 mm/hr (0-20)
--- NOTE | 2017-01-04 05:30 | REPUSA ---
CLINICAL HISTORY: Pain. COMMENTS: Compared to 01/01/17 study. The cardiac silhouette is enlarged. There is evidence for pulmonary venous congestion compatible with CHF. LLL consolidation has improved since the prior study. RLL consolidation has exacerbated. Bony structures appear normal. IMPRESSION: 1. Enlarged cardiac silhouette. 2. Pulmonary venous congestion compatible with CHF, exacerbation. 3. LLL consolidation has improved since the prior study. RLL consolidation has exacerbated. Thank you for your kind referral of this patient.
[2017-01-04] MEDS: LevoFLOXacin 500 MG TABLET PO SCH (05:53)
[2017-01-04] MEDS: TIOTROPIUM INHALER/CAPSULE (SPIRIVA) INH SCH (07:22)
[2017-01-04] MEDS: IPRATROPIUM 0.5MG/ALBUTEROL 2.5MG INH SOL UD 3ML (DUONEB)(J7620) INH PRN ×2 (07:22→13:15)
[2017-01-04] MEDS: ADVAIR HFA 230/21MCG INHALER INH SCH ×2 (07:22→20:27)
[2017-01-04 08:00] VITALS: BP 105/55
[2017-01-04] MEDS: NYSTATIN 500,000 U/5 ML SUSP UDC PO SCH ×4 (08:02→21:00)
[2017-01-04] MEDS: HumaLOG INSULIN (NovoLOG) PER UNIT SC SCH ×4 (08:02→21:01)
[2017-01-04] MEDS: MAGNESIUM OXIDE 400 MG TAB (MAG-OX) PO SCH (08:02)
[2017-01-04] MEDS: GABAPENTIN 300 MG CAP PO SCH ×3 (08:02→20:59)
[2017-01-04] MEDS: LEVEMIR (INSULIN DETEMIR) 1 UNITS/0.01ML SC SCH ×2 (08:02→21:00)
[2017-01-04] MEDS: FUROSEMIDE 40 MG/4 ML VIAL (J1940) IV SCH (08:03)
[2017-01-04] MEDS: rOPINIRole 1MG TAB PO SCH ×2 (08:03→21:00)
[2017-01-04] MEDS: ALLOPURINOL 300 MG TAB PO SCH (08:03)
[2017-01-04] MEDS: MULTIVITAMINS/MINERALS THERAP 1 TAB PO SCH (08:03)
[2017-01-04] MEDS: APIXABAN 5 MG TAB (ELIQUIS) PO SCH ×2 (08:03→21:00)
[2017-01-04] MEDS: methylPREDNISolone INJ 40 MG/1 ML VIAL (J2920) IV SCH (08:03)
[2017-01-04] MEDS: FERROUS SULFATE 325MG TAB PO SCH (08:03)
[2017-01-04] MEDS: OMEPRAZOLE 20 MG CAP PO SCH (08:04)
[2017-01-04] MEDS: PRAVASTATIN 20 MG TAB PO SCH (08:04)
[2017-01-04] MEDS: CYANOCOBALAMIN 500 MCG TAB PO SCH (08:04)
[2017-01-04] MEDS: ZONISAMIDE 50 MG CAP (ZONEGRAN) PO SCH ×2 (08:04→20:59)
[2017-01-04] MEDS: CARVedilol 12.5 MG TAB PO SCH ×2 (08:04→12:10)
[2017-01-04] MEDS: ASPIRIN 81 MG ENTERIC TAB PO SCH (08:04)
[2017-01-04] MEDS: LACTIC ACID 12% LOTION 225 GM BTL TOP SCH (08:05)
[2017-01-04 12:00] VITALS: BP 120/90
[2017-01-04] MEDS ORDERED: BENZONATATE 100 MG CAP PO PRN (14:30)
[2017-01-04] MEDS ORDERED: guaiFENesin 200 MG TAB PO PRN (14:30)
--- NOTE | 2017-01-04 14:30 | IPNPDOC ---
Text Note Date of Service The patient was seen on 01/04/17. NOTE Subjective: Patient is a 66 year old male with a PMHx of COPD (on 3L O2), LUCA on CPAP, HTN, DM2, CKD3 (s/p Nephrectomy), Obesity, Gout, Neuropathy, Stage 1A Left upper lobe lung CA s/p lobectomy, and Stage 1A Lung CA of RLL s/p radiation. Was admitted from 12/09 12/24 for left upper and lower extremity pain 2/2 neuropathic pain. His hospital course was complicated with MRSA pneumonia and COPD exacerbation. In the hospital he received Doxycycline, Vancomycin, and Ceftaroline. He was sent home with Levofloxacin to complete antibiotic course. Patient presented to the emergency room collective difficulty breathing, was found to have signs of fluid overload in the emergency room. Was given a dose of Lasix. Hospitalist was called for admission. Patient was noted to ICU for COPD exacerbation as well as fluid overload. Patient was seen and examined at the bedside. He has reported that his breathing is doing well. Overnight, patient had an episode of A. fib with RVR and required Cardizem IV. Heart rate currently is well-controlled. Denies any chest pain or palpitations. Still notes a productive cough. Objective: Vitals (See below) General: Lying in bed, no acute distress, comfortable, AAOx3 HEENT: NC, AT CVS: RRR, +S1S2 Lungs: Coarse lung sounds bilaterally, improvement in wheezing bilaterally Abdomen: Soft, ND, NT, obese Extremities: 1+ pitting edema on right leg, trace pitting edema on left leg, - Calf tenderness Assessment and plan: Dyspnea - likely multifactorial 2/2 acute exacerbation of CHF (Diastolic in nature); acute COPD exacerbation; possibly 2/2 underlying left sided pneumonia [Acute exacerbation of Diastolic CHF] - Signs of acute fluid overload have been improving - Labs indicate a BNP of 566 on admission - ECHO 11/24: Preserved LV systolic function, impairment of LV diastolic function, mild pulmonary HTN - Chest x-ray 12/31: does not appear to show any signs of acute fluid overload, stable changes noted - Chest x-ray 01/04: Pulmonary venous congestion compatible with CHF, LLL consolidation has improved, RLL consolidation has exacerbated - Will continue with strict input and output, as well as daily weights - Will reduce dose of furosemide to QD from BID [Acute COPD exacerbation] - Evidence of coarse lung sounds with possible wheezing bilaterally - ABG show signs of PCO2 retention - s/p BiPAP noninvasive ventilation - Will start prednisone 40 BID; s/p Solu-Medrol - Dr. Watson / Dr. Eugene (Pulmonology) has been consulted - have signed off [Possible left-sided pneumonia] - History of extensive pneumonia history, past - Has received several antibiotics throughout prior hospitalization - Antibiotics from prior admission include vancomycin, doxycycline, Ceftaroline, Levaquin - Sputum culture 01/01: MRSA - c/w Levaquin PO (Day #4) s/p Atrial fibrillation with RVR - Another episode of A. fib with RVR occurred yesterday evening, s/p Diltiazem IV - s/p metoprolol 5 mg IV - c/w rate control with carvedilol - c/w anticoagulation with Eliquis Macrocytic anemia - c/w Iron supplementation and vitamin B12 supplementation Swelling in Right extremity larger than left extremity - Chronically has had this problem - Duplex ultrasound 12/31: Negative for any acute DVT Neuropathic pain of central origin, involving left upper and lower extremity - c/w Adjusted Gabapentin LUCA on CPAP - allow home CPAP use; s/p BiPAP Gout - c/w Allopurinol HTN - Blood pressure remains well-controlled - c/w carvedilol and furosemide CKD3 - Creatinine baseline of 1.5 to 1.7 - Creatinine remains within baseline range RLS - c/w Ropinirole DLP - c/w Pravastatin DM2 - c/w ISS and Levemir 45 BID Depression - c/w Sertraline Hx of Lung CA - Stage 1A NIKKI s/p lobectomy - Stage 1A RLL s/p radiation - c/w outpatient follow up History of adrenal insufficiency - Stress dose steroid before procedure or when he is critically ill GERD - c/w Omeprazole DVT prophylaxis - on full anticoagulation with Eliquis VS,Fishbone, I+O VS, Fishbone, I+O Laboratory Tests 01/04/17 03:01 Red Blood Count 3.57 L, Mean Corpuscular Volume 97.8 H, Mean Corpuscular Hemoglobin 32.2, Mean Corpuscular Hemoglobin Concent 33.0, Red Cell Distribution Width 14.5, Neutrophils (%) (Auto) 90.7 H, Lymphocytes (%) (Auto) 3.5 L, Monocytes (%) (Auto) 3.3, Eosinophils (%) (Auto) 0.0, Basophils (%) (Auto ) 0.2, Neutrophils # (Auto) 8.9 H, Lymphocytes # (Auto) 0.4 L, Monocytes # (Auto ) 0.3, Eosinophils # (Auto) 0.0, Basophils # (Auto) 0.0, Calcium Level 8.6 L, Aspartate Amino Transf (AST/SGOT) 14, Alanine Aminotransferase (ALT/SGPT) 43, Alkaline Phosphatase 73, Total Bilirubin 0.2, Total Protein 5.7 L, Albumin 2.2 L Vital Signs Date Time Temp Pulse Resp B/P (MAP) Pulse Ox O2 Delivery O2 Flow Rate FiO2 01/04/17 12:10 84 120/90 01/04/17 12:00 Nasal Cannula 3.0 01/04/17 12:00 98.0 18 94 01/02/17 04:08 35 I&O- Last 24 Hours up to 6 AM 01/05/17 06:00 Intake Total 1300 ml Output Total 1300 ml Balance 0 ml ADALID RAMIREZ MD Jan 04, 2017 14:27
[2017-01-04 16:00] VITALS: BP 124/84
--- NOTE | 2017-01-04 16:39 | ECGEPIP ---
Stationary ECG Study [facility] Test Date: 2017-01-04 Pat Name: ARIN GUADARRAMA Department: Room: [place] [address] Gender: M [employer] Counsel[employer]: NIXON : 1950 Requested By: SUSAN BAR Order Number: [id number] Reading MD: Nik Bucio Measurements Intervals [place] Rate: 125 P: [place]: 0 QRS: 28 QRSD: 90 T: -60 QT: 288 QTc: 416 Interpretive Statements Atrial fibrillation with rapid ventricular response Low QRS complex voltage in the limb leads Nonspecific ST-T wave abnormalities No significant change when compared to prior tracing of 01/03/2017 Electronically Signed On 01-04-2017 16:39:23 EST by Nik Bucio
--- NOTE | 2017-01-04 16:39 | ECGEPIP ---
Stationary ECG Study [facility] Test Date: 2017-01-03 Pat Name: ARIN GUADARRAMA Department: Room: [place] [address] Gender: M [employer]: NIXON : 1950 Requested By: SUSAN BAR Order Number: [id number] Reading MD: Nik Bucio Measurements Intervals [place] Rate: 140 P: [place]: 0 QRS: 17 QRSD: 93 T: -31 QT: 282 QTc: 431 Interpretive Statements Atrial fibrillation with rapid ventricular response Nonspecific ST-T wave abnormalities Compared to prior tracing of 12/31/2016 atrial fibrillation is new Electronically Signed On 01-04-2017 16:38:36 EST by Nik Bucio
[2017-01-04 20:00] VITALS: BP 118/72
[2017-01-04] MEDS: predniSONE 20 MG TAB PO SCH (20:59)
[2017-01-04] MEDS: SERTRALINE HCL 25 MG TABLET PO SCH (21:14)
[2017-01-05] VITALS (19 sets, daily range): BP systolic 90–147; BP diastolic 52–86
[2017-01-05 04:48] LABS: MEAN CORPUSCULAR HEMOGLOBIN 31.3 pg (27.0-33.0); MEAN CORPUSCULAR HGB CONC 32.7 g/dl (32.0-36.5); MEAN CORPUSCULAR VOLUME 95.9 fl (80.0-96.0); PLATELET COUNT, AUTOMATED 147 10^3/uL (150-450); RED CELL DISTRIBUTION WIDTH 14.2 % (11.5-14.5)
[2017-01-05] MEDS: LevoFLOXacin 500 MG TABLET PO SCH (05:00)
[2017-01-05 05:01] LABS: POS COUNT POS FLAG; POSITIVE MORPH POS FLAG
[2017-01-05 05:02] LABS: ADD MANUAL DIFFER YES; DIFF SLIDE NUMBER 24
[2017-01-05 05:30] LABS: ALBUMIN 2.7 GM/DL (3.2-5.2); ALBUMIN/GLOBULIN RATIO 0.69 (1.00-1.93); ALKALINE PHOSPHATASE 66 U/L (45-117); ALT/SGPT 50 U/L (12-78); ANION GAP 7 MEQ/L (8-16); AST/SGOT 14 U/L (7-37); BILIRUBIN,TOTAL 0.4 MG/DL (0.2-1.0); BLOOD UREA NITROGEN 48 MG/DL (7-18); CARBON DIOXIDE LEVEL 32 MEQ/L (21-32); CHLORIDE LEVEL 97 MEQ/L (98-107); CREATININE FOR GFR 1.25 MG/DL (0.70-1.30); GLOMERULAR FILTRATION RATE > 60.0 (>49); GLUCOSE, FASTING 225 MG/DL (80-110); MAGNESIUM LEVEL 1.9 MG/DL (1.8-2.4); POTASSIUM SERUM 4.3 MEQ/L (3.5-5.1); SODIUM LEVEL 136 MEQ/L (136-145); TOTAL PROTEIN 6.6 GM/DL (6.4-8.2)
[2017-01-05 06:25] LABS: BANDS 2 % (< 11)
[2017-01-05] MEDS: ADVAIR HFA 230/21MCG INHALER INH SCH ×2 (07:50→19:16)
[2017-01-05] MEDS: TIOTROPIUM INHALER/CAPSULE (SPIRIVA) INH SCH (07:50)
[2017-01-05] MEDS: HumaLOG INSULIN (NovoLOG) PER UNIT SC SCH ×4 (08:59→20:44)
[2017-01-05] MEDS: OMEPRAZOLE 20 MG CAP PO SCH (08:59)
[2017-01-05] MEDS: rOPINIRole 1MG TAB PO SCH ×2 (08:59→20:43)
[2017-01-05] MEDS: NYSTATIN 500,000 U/5 ML SUSP UDC PO SCH ×4 (08:59→20:43)
[2017-01-05] MEDS: ZONISAMIDE 50 MG CAP (ZONEGRAN) PO SCH ×2 (08:59→20:44)
[2017-01-05] MEDS: MULTIVITAMINS/MINERALS THERAP 1 TAB PO SCH (09:00)
[2017-01-05] MEDS: ALLOPURINOL 300 MG TAB PO SCH (09:00)
[2017-01-05] MEDS: predniSONE 20 MG TAB PO SCH ×2 (09:00→20:43)
[2017-01-05] MEDS: FERROUS SULFATE 325MG TAB PO SCH (09:00)
[2017-01-05] MEDS ORDERED: FUROSEMIDE 40 MG/4 ML VIAL (J1940) IV SCH (09:00)
[2017-01-05] MEDS: CARVedilol 12.5 MG TAB PO SCH ×2 (09:00→20:44)
[2017-01-05] MEDS: ASPIRIN 81 MG ENTERIC TAB PO SCH (09:00)
[2017-01-05] MEDS: CYANOCOBALAMIN 500 MCG TAB PO SCH (09:00)
[2017-01-05] MEDS: GABAPENTIN 300 MG CAP PO SCH ×3 (09:00→20:43)
[2017-01-05] MEDS: MAGNESIUM OXIDE 400 MG TAB (MAG-OX) PO SCH (09:00)
[2017-01-05] MEDS: PRAVASTATIN 20 MG TAB PO SCH (09:00)
[2017-01-05] MEDS: APIXABAN 5 MG TAB (ELIQUIS) PO SCH ×2 (09:00→20:43)
[2017-01-05] MEDS: LACTIC ACID 12% LOTION 225 GM BTL TOP SCH (09:01)
[2017-01-05] MEDS: LEVEMIR (INSULIN DETEMIR) 1 UNITS/0.01ML SC SCH ×2 (09:01→20:45)
[2017-01-05] MEDS: IPRATROPIUM 0.5MG/ALBUTEROL 2.5MG INH SOL UD 3ML (DUONEB)(J7620) INH PRN (12:05)
[2017-01-05] MEDS: FUROSEMIDE 40 MG TAB PO SCH (12:53)
[2017-01-05] MEDS: LACTOBACILLUS ACIDOPHILUS CAP (BACID) PO SCH ×2 (12:54→20:43)
--- NOTE | 2017-01-05 16:29 | IPNPDOC ---
Text Note Date of Service The patient was seen on 01/05/17. NOTE Subjective: Patient is a 66 year old male with a PMHx of COPD (on 3L O2), LUCA on CPAP, HTN, DM2, CKD3 (s/p Nephrectomy), Obesity, Gout, Neuropathy, Stage 1A Left upper lobe lung CA s/p lobectomy, and Stage 1A Lung CA of RLL s/p radiation. Was admitted from 12/09 12/24 for left upper and lower extremity pain 2/2 neuropathic pain. His hospital course was complicated with MRSA pneumonia and COPD exacerbation. In the hospital he received Doxycycline, Vancomycin, and Ceftaroline. He was sent home with Levofloxacin to complete antibiotic course. Patient presented to the emergency room collective difficulty breathing, was found to have signs of fluid overload in the emergency room. Was given a dose of Lasix. Hospitalist was called for admission. Patient was noted to ICU for COPD exacerbation as well as fluid overload. Patient was seen and examined at the bedside. Patient has noted that he's experienced an episode of A. fib with RVR. This morning he noted some palpitations but denied any chest pain or diaphoresis. He notes that his breathing continues to improve. Objective: Vitals (See below) General: Lying in bed, no acute distress, comfortable, AAOx3 HEENT: NC, AT CVS: RRR, +S1S2 Lungs: Coarse lung sounds bilaterally, no appreciable wheezing could be heard Abdomen: Soft, ND, NT, obese Extremities: 1+ pitting edema on right leg, trace pitting edema on left leg, - Calf tenderness Assessment and plan: Dyspnea - likely multifactorial 2/2 acute exacerbation of CHF (Diastolic in nature); acute COPD exacerbation; possibly 2/2 underlying left sided pneumonia [Acute exacerbation of Diastolic CHF] - Labs indicate a BNP of 566 on admission - ECHO 11/24: Preserved LV systolic function, impairment of LV diastolic function, mild pulmonary HTN - Chest x-ray 12/31: does not appear to show any signs of acute fluid overload, stable changes noted - Chest x-ray 01/04: Pulmonary venous congestion compatible with CHF, LLL consolidation has improved, RLL consolidation has exacerbated - c/w strict input and output, as well as daily weights [Acute COPD exacerbation] - Evidence of coarse lung sounds with possible wheezing bilaterally - ABG show signs of PCO2 retention - s/p BiPAP noninvasive ventilation [Possible left-sided pneumonia] - unlikely - History of extensive pneumonia history in past; with several antibiotics throughout prior hospitalization - Antibiotics from prior admission include vancomycin, doxycycline, Ceftaroline, Levaquin - Sputum culture 01/01: MRSA - Will c/w Prednisone taper, Furosemide 40 PO QD, and will completely discontinue antibiotics at this point (5 day course) s/p Atrial fibrillation with RVR - c/w rate control with Carvedilol - c/w anticoagulation with Eliquis Macrocytic anemia - c/w Iron supplementation and vitamin B12 supplementation Swelling in Right extremity larger than left extremity - Chronically has had this problem - Duplex ultrasound 12/31: Negative for any acute DVT Neuropathic pain of central origin, involving left upper and lower extremity - c/w Adjusted Gabapentin LUCA on CPAP - allow home CPAP use; s/p BiPAP Gout - c/w Allopurinol HTN - Blood pressure remains well-controlled - c/w Carvedilol and Furosemide CKD3 - Creatinine baseline of 1.5 to 1.7 - Creatinine remains within baseline range RLS - c/w Ropinirole DLP - c/w Pravastatin DM2 - c/w ISS and Levemir 45 BID Depression - c/w Sertraline Hx of Lung CA - Stage 1A NIKKI s/p lobectomy - Stage 1A RLL s/p radiation - c/w outpatient follow up History of adrenal insufficiency - Stress dose steroid before procedure or when he is critically ill GERD - c/w Omeprazole DVT prophylaxis - on full anticoagulation with Eliquis Disposition: - PT with home safety evaluation VSDony, I+O VSDony, I+O Laboratory Tests 01/05/17 04:31 Red Blood Count 4.18 L, Mean Corpuscular Volume 95.9, Mean Corpuscular Hemoglobin 31.3, Mean Corpuscular Hemoglobin Concent 32.7, Red Cell Distribution Width 14.2, Calcium Level 9.0, Aspartate Amino Transf (AST/SGOT) 14 , Alanine Aminotransferase (ALT/SGPT) 50, Alkaline Phosphatase 66, Total Bilirubin 0.4 #, Total Protein 6.6, Albumin 2.7 #L Vital Signs Date Time Temp Pulse Resp B/P (MAP) Pulse Ox O2 Delivery O2 Flow Rate FiO2 01/05/17 16:00 Nasal Cannula 3.0 01/05/17 12:00 97.4 92 20 136/73 (94) 95 01/02/17 04:08 35 I&O- Last 24 Hours up to 6 AM 01/06/17 06:00 Intake Total 820 ml Output Total 775 ml Balance 45 ml ADALID RAMIREZ MD Jan 05, 2017 16:29
[2017-01-05] MEDS: LINEZOLID 600MG TABLET (ZYVOX) PO SCH (20:43)
[2017-01-05] MEDS: SERTRALINE HCL 25 MG TABLET PO SCH (20:43)
[2017-01-05] MEDS ORDERED: METOPROLOL 5 MG/5 ML VIAL IV STA (23:28)
[2017-01-06] VITALS (22 sets, daily range): BP systolic 111–149; BP diastolic 64–93
[2017-01-06] MEDS ORDERED: METOPROLOL 5 MG/5 ML VIAL IV STA ×2 (04:31→05:12)
--- NOTE | 2017-01-06 04:36 | IPNPDOC ---
Text Note Date of Service The patient was seen on 01/06/17. NOTE Patient Returned to A-Fib w/ RVR. Given Lopressor 5mg in the Evening converted to Sinus, Now Back in A-Flutter, HR in 120s as per nurse, BP stable for 2nd Lopressor Dose. ordered. VS,Fishbone, I+O VS, Fishbone, I+O Vital Signs Date Time Temp Pulse Resp B/P (MAP) Pulse Ox O2 Delivery O2 Flow Rate FiO2 01/06/17 04:00 96.9 85 18 144/88 (106) 95 Nasal Cannula 3.0 01/02/17 04:08 35 PERRI SILVEIRA MD Jan 06, 2017 04:36
[2017-01-06] MEDS: LevoFLOXacin 500 MG TABLET PO SCH (05:19)
[2017-01-06 05:38] LABS: MEAN CORPUSCULAR HEMOGLOBIN 31.8 pg (27.0-33.0); MEAN CORPUSCULAR HGB CONC 32.9 g/dl (32.0-36.5); MEAN CORPUSCULAR VOLUME 96.7 fl (80.0-96.0); PLATELET COUNT, AUTOMATED 153 10^3/uL (150-450); RED CELL DISTRIBUTION WIDTH 14.3 % (11.5-14.5); WHITE BLOOD COUNT 10.2 10^3/uL (4.0-10.0)
[2017-01-06 05:40] LABS: ADD MANUAL DIFFER YES; DIFF SLIDE NUMBER 13; POS COUNT POS FLAG; POSITIVE MORPH POS FLAG; WBC SCAT POS FLAG
[2017-01-06 05:58] LABS: ALBUMIN 2.7 GM/DL (3.2-5.2); ALBUMIN/GLOBULIN RATIO 0.73 (1.00-1.93); ALKALINE PHOSPHATASE 97 U/L (45-117); ALT/SGPT 58 U/L (12-78); ANION GAP 10 MEQ/L (8-16); AST/SGOT 22 U/L (7-37); BILIRUBIN,TOTAL 0.3 MG/DL (0.2-1.0); BLOOD UREA NITROGEN 51 MG/DL (7-18); CALCIUM LEVEL 9.5 MG/DL (8.8-10.2); CARBON DIOXIDE LEVEL 29 MEQ/L (21-32); CHLORIDE LEVEL 99 MEQ/L (98-107); CREATININE FOR GFR 1.21 MG/DL (0.70-1.30); GLOMERULAR FILTRATION RATE > 60.0 (>49); GLUCOSE, FASTING 237 MG/DL (80-110); MAGNESIUM LEVEL 2.2 MG/DL (1.8-2.4); POTASSIUM SERUM 4.4 MEQ/L (3.5-5.1); SODIUM LEVEL 138 MEQ/L (136-145); TOTAL PROTEIN 6.4 GM/DL (6.4-8.2)
[2017-01-06 06:38] LABS: BANDS 1 % (< 11)
[2017-01-06] MEDS: HumaLOG INSULIN (NovoLOG) PER UNIT SC SCH ×4 (07:35→21:36)
[2017-01-06] MEDS: TIOTROPIUM INHALER/CAPSULE (SPIRIVA) INH SCH (08:41)
[2017-01-06] MEDS: ADVAIR HFA 230/21MCG INHALER INH SCH ×2 (08:41→21:38)
[2017-01-06] MEDS: LACTOBACILLUS ACIDOPHILUS CAP (BACID) PO SCH ×2 (09:23→21:33)
[2017-01-06] MEDS: LEVEMIR (INSULIN DETEMIR) 1 UNITS/0.01ML SC SCH ×2 (09:23→21:00)
[2017-01-06] MEDS: NYSTATIN 500,000 U/5 ML SUSP UDC PO SCH ×4 (09:23→21:33)
[2017-01-06] MEDS: APIXABAN 5 MG TAB (ELIQUIS) PO SCH ×2 (09:24→21:36)
[2017-01-06] MEDS: OMEPRAZOLE 20 MG CAP PO SCH (09:24)
[2017-01-06] MEDS: GABAPENTIN 300 MG CAP PO SCH ×3 (09:24→21:34)
[2017-01-06] MEDS: LINEZOLID 600MG TABLET (ZYVOX) PO SCH ×2 (09:24→21:34)
[2017-01-06] MEDS: predniSONE 20 MG TAB PO SCH ×2 (09:24→21:35)
[2017-01-06] MEDS: FUROSEMIDE 40 MG TAB PO SCH (09:24)
[2017-01-06] MEDS: ALLOPURINOL 300 MG TAB PO SCH (09:24)
[2017-01-06] MEDS: PRAVASTATIN 20 MG TAB PO SCH (09:24)
[2017-01-06] MEDS: FERROUS SULFATE 325MG TAB PO SCH (09:24)
[2017-01-06] MEDS: ZONISAMIDE 50 MG CAP (ZONEGRAN) PO SCH ×2 (09:24→21:33)
[2017-01-06] MEDS: rOPINIRole 1MG TAB PO SCH ×2 (09:24→21:34)
[2017-01-06] MEDS: MULTIVITAMINS/MINERALS THERAP 1 TAB PO SCH (09:24)
[2017-01-06] MEDS: CARVedilol 12.5 MG TAB PO SCH ×2 (09:25→21:35)
[2017-01-06] MEDS: CYANOCOBALAMIN 500 MCG TAB PO SCH (09:25)
[2017-01-06] MEDS: ASPIRIN 81 MG ENTERIC TAB PO SCH (09:25)
[2017-01-06] MEDS: LACTIC ACID 12% LOTION 225 GM BTL TOP SCH (09:25)
[2017-01-06] MEDS: MAGNESIUM OXIDE 400 MG TAB (MAG-OX) PO SCH (09:25)
[2017-01-06] MEDS ORDERED: DIGOXIN INJ 0.5 MG/2 ML AMP (J1160) IV STA (10:43)
[2017-01-06] MEDS: SERTRALINE HCL 25 MG TABLET PO SCH (21:36)
[2017-01-07] VITALS (9 sets, daily range): BP systolic 91–152; BP diastolic 63–94
[2017-01-07] MEDS: LevoFLOXacin 500 MG TABLET PO SCH (05:09)
[2017-01-07 05:20] LABS: MEAN CORPUSCULAR HEMOGLOBIN 31.2 pg (27.0-33.0); MEAN CORPUSCULAR VOLUME 97.4 fl (80.0-96.0); PLATELET COUNT, AUTOMATED 135 10^3/uL (150-450); RED CELL DISTRIBUTION WIDTH 14.3 % (11.5-14.5); WHITE BLOOD COUNT 8.7 10^3/uL (4.0-10.0)
[2017-01-07 05:24] LABS: ADD MANUAL DIFFER YES; DIFF SLIDE NUMBER 8; POS COUNT POS FLAG; POSITIVE MORPH POS FLAG; WBC SCAT POS FLAG
[2017-01-07 05:51] LABS: ALBUMIN 2.4 GM/DL (3.2-5.2); ALBUMIN/GLOBULIN RATIO 0.65 (1.00-1.93); BILIRUBIN,TOTAL 0.3 MG/DL (0.2-1.0); CREATININE FOR GFR 1.43 MG/DL (0.70-1.30); MAGNESIUM LEVEL 1.9 MG/DL (1.8-2.4); POTASSIUM SERUM 4.3 MEQ/L (3.5-5.1); TOTAL PROTEIN 6.1 GM/DL (6.4-8.2)
[2017-01-07 06:34] LABS: BANDS 3 % (< 11)
--- NOTE | 2017-01-07 07:13 | IPN ---
DATE: 01/06/2017 SUBJECTIVE: The patient tells me that he had an episode earlier this morning where he felt palpitations and fluttering in his chest. They have resolved now. He tells me that his shortness of breath is at his baseline and otherwise has no complaints. He denies any chest pressure, lightheadedness, dizziness, nausea, vomiting, or diarrhea. OBJECTIVE: VITAL SIGNS: Temperature 97.4, pulse 73, respiratory rate 20, blood pressure 118/79, oxygen saturation 96% on 3 liters. GENERAL: He is a very pleasant, morbidly obese, elderly man lying in bed on his left side. He does not appear to be any acute distress. He is awake, alert, oriented times three. HEENT: Cranial nerves II-XII grossly intact. Too ill to assess for ambulation due to obesity and body habitus. He is wearing a nasal cannula. He has moist mucous membranes. CARDIOVASCULAR EXAM: S1, S2, irregularly irregular. He is not tachycardic at this time. RESPIRATORY: Exam is actually quite clear today with good air movement throughout. ABDOMINAL EXAM: Is grossly obese. No clubbing, cyanosis, or edema. LABORATORY STUDIES: WBC 10.2, hemoglobin 13.3, hematocrit 40.4, platelet count 153. Chemistry panel: Sodium 138, potassium 4.4, chloride 99, bicarbonate 29, BUN 51, creatinine 1.2. Microbiology: Sputum from 01/05/2017 is positive for methicillin-resistant Staphylococcus aureus (MRSA). Blood cultures from 12/31/2016 were negative. No new imaging. ASSESSMENT/PLAN: This is a 66-year-old man with dyspnea. PROBLEMS: 1. Dyspnea, likely multifactorial. There was concern for acute on chronic decompensated diastolic congestive heart failure. He had a slightly elevated BNP on admission. His x-rays were concerning for congestive heart failure (CHF). We are monitoring his intake and output and his daily weights. Respiratory status appears to be at his baseline at this time. Please note the patient is on Lasix 40 mg daily. 2. Decompensated chronic obstructive pulmonary disease (COPD). Patient has evidence of chronic COPD with chronic respiratory failure requiring 3 liters of oxygen. There was evidence of pCO2 retention. He did require bilevel positive airway pressure (BiPAP) early in his stay. Again, at this present time, it appears that his dyspnea is resolving and he is at his baseline respiratory status. Please note the patient is on a prednisone taper. 3. Possible left-sided pneumonia. We feel this is less likely; however, his sputum did grow MRSA and, as such, today is day #2 of linezolid and he is on day #4 of levofloxacin. Patient had prior culture. Today, Dr. Montez informed me that he did discuss this with Dr. Waggoner of infectious disease. 4. Atrial fibrillation with rapid ventricular response. Rate uncontrolled this morning. He received Lopressor loading 5 mg IV times three. At this time, I will also provide him with a stat IV digoxin and start him in digoxin daily to prevent further episodes of uncontrolled rate. He is anticoagulated with Eliquis. We will monitor his rate. I suspect that once his rate is well controlled without further episodes of breakthrough ventricular response, he can potentially be discharged home. 5. Macrocytic anemia. Continue with iron supplementation and B12 supplementation. 6. Neuropathic pain. He is on gabapentin. 7. Obstructive sleep apnea. He is on continuous positive airway pressure (CPAP) at night. He uses it at home and here. 8. Gout. He is on allopurinol. 9. Hypertension. Well controlled with carvedilol and Lasix. 10. Chronic kidney disease. At its baseline. 11. Restless leg syndrome. He is on ropinirole. 12. Dyslipidemia. He is pravastatin. 13. Type 2 diabetes. He is on insulin sliding scale and Levemir. 14. Depression. He is on sertraline. 15. History of lung cancer (CA) status post lobectomy and radiation. He is to continue with his outpatient followup. 16. History of adrenal insufficiency. He is not critically ill at this time and does not require any stress-dose steroids. Continue to monitor. He is hemodynamically stable. 17. Gastroesophageal reflux disease. Continue with omeprazole. 18. Deep venous thrombosis (DVT) prophylaxis. He is anticoagulated with Eliquis. DISPOSITION: Continues to work with physical therapy (PT) and rate control.
[2017-01-07] MEDS: ADVAIR HFA 230/21MCG INHALER INH SCH ×2 (07:17→20:24)
[2017-01-07] MEDS: TIOTROPIUM INHALER/CAPSULE (SPIRIVA) INH SCH (07:17)
[2017-01-07] MEDS: HumaLOG INSULIN (NovoLOG) PER UNIT SC SCH ×4 (09:03→21:15)
[2017-01-07] MEDS: PRAVASTATIN 20 MG TAB PO SCH (09:04)
[2017-01-07] MEDS: MAGNESIUM OXIDE 400 MG TAB (MAG-OX) PO SCH (09:04)
[2017-01-07] MEDS: OMEPRAZOLE 20 MG CAP PO SCH (09:04)
[2017-01-07] MEDS: DIGOXIN 0.125 MG TAB PO SCH (09:05)
[2017-01-07] MEDS: MULTIVITAMINS/MINERALS THERAP 1 TAB PO SCH (09:05)
[2017-01-07] MEDS: ZONISAMIDE 50 MG CAP (ZONEGRAN) PO SCH ×2 (09:05→21:16)
[2017-01-07] MEDS: LACTOBACILLUS ACIDOPHILUS CAP (BACID) PO SCH ×2 (09:05→21:16)
[2017-01-07] MEDS: NYSTATIN 500,000 U/5 ML SUSP UDC PO SCH ×4 (09:05→21:17)
[2017-01-07] MEDS: rOPINIRole 1MG TAB PO SCH ×2 (09:06→21:16)
[2017-01-07] MEDS: ALLOPURINOL 300 MG TAB PO SCH (09:06)
[2017-01-07] MEDS: predniSONE 20 MG TAB PO SCH (09:06)
[2017-01-07] MEDS: LINEZOLID 600MG TABLET (ZYVOX) PO SCH ×2 (09:07→21:16)
[2017-01-07] MEDS: APIXABAN 5 MG TAB (ELIQUIS) PO SCH ×2 (09:07→21:16)
[2017-01-07] MEDS: ASPIRIN 81 MG ENTERIC TAB PO SCH (09:10)
[2017-01-07] MEDS: FERROUS SULFATE 325MG TAB PO SCH (09:10)
[2017-01-07] MEDS: GABAPENTIN 300 MG CAP PO SCH ×3 (09:10→21:17)
[2017-01-07] MEDS: CARVedilol 12.5 MG TAB PO SCH ×2 (09:10→21:17)
[2017-01-07] MEDS: CYANOCOBALAMIN 500 MCG TAB PO SCH (09:11)
[2017-01-07] MEDS: FUROSEMIDE 20 MG TAB PO SCH (09:11)
[2017-01-07] MEDS: LACTIC ACID 12% LOTION 225 GM BTL TOP SCH (09:12)
[2017-01-07] MEDS: LEVEMIR (INSULIN DETEMIR) 1 UNITS/0.01ML SC SCH ×2 (09:12→21:17)
[2017-01-07] MEDS ORDERED: LINE60TAB PO (13:31)
--- NOTE | 2017-01-07 14:33 | IPN ---
DATE OF EXAMINATION: 01/07/2017 SUBJECTIVE: The patient tells me that he is feeling well. He has actually no complaints today other than he tells me that he is having diarrhea after breakfast, and he has been having this for many months. He has never mentioned it before, and this is the first time he has brought it to our attention. He tells me that he is not feeling lightheaded, dizzy, fevers, chills. He has not had any further episodes of palpitations or feeling unwell. OBJECTIVE: VITAL SIGNS: Temperature 96.1, pulse 87, respiratory rate 18, blood pressure 125/80, oxygen saturation 95% on 3 liters nasal cannula. GENERAL: He is a very pleasant morbidly obese man sitting up on the edge of his bed. He does not appear to be any acute distress. He is awake, alert, oriented times three. HEENT: Cranial nerves II-XII are grossly intact. He is wearing a nasal cannula. He has moist mucous membranes. CARDIOVASCULAR EXAMINATION: S1, S2, irregularly irregular. He is not tachycardic. RESPIRATORY EXAMINATION: Is actually quite clear. ABDOMINAL EXAMINATION: Is grossly obese. EXTREMITIES: No clubbing, cyanosis, or edema. LABORATORY STUDIES: Hemoglobin 8.7, hematocrit 30.3, platelet count 135. Chemistry panel: Sodium 137, potassium 4.3, chloride 102, bicarbonate 27, BUN 54, creatinine 1.4 up from 1.2 yesterday. A digoxin level this morning is 0.2. No new microbiology or imaging. ASSESSMENT AND PLAN: This is a 66-year-old man with dyspnea. PROBLEMS: 1. Dyspnea, likely decompensated diastolic congestive heart failure. He did undergo aggressive diuresis during his last hospitalization. Is once again requiring it now. His x-ray and basic metabolic profile (BMP) were also suggestive of congestive heart failure (CHF), as well as his physical examination. Will continue to monitor his intake and output (I and O) and daily weights. I have elected to titrate down on his Lasix 20 mg daily, as he is having significant diuresis with 40. He does appear to be approaching euvolemia and is at his baseline oxygenation status. 2. Decompensated chronic obstructive pulmonary disease (COPD). I feel that this is less likely playing a role in his presentation. He is at his baseline respiratory status at this time, though there is evidence of CO2 retention, but this could also be related to pulmonary edema. Will continue to wean his steroids. 3. Possible left-sided pneumonia. Again, we feel this is less likely contributing to his overall presentation. However, his sputum did grow methicillin-resistant Staphylococcus aureus (MRSA). Today is day #3 of #10 of linezolid. He is also on day #[address] Montez informed me that he previously did discuss this with Dr. Waggoner of infectious disease. A prescription has been sent to the pharmacy, and a patient and family services (PFS) consult has been placed to obtain a prior authorization for linezolid in anticipation of potential discharge home tomorrow. 4. Atrial fibrillation with rapid ventricular response. His rate was uncontrolled yesterday morning. He did receive Lopressor at a loading dose. In addition, he has been on Coreg 12.5 mg twice a day. Will continue on digoxin and carvedilol. His rate is much better controlled today. His atrial fibrillation is paroxysmal. He is anticoagulated with Eliquis, but he had been having breakthrough episodes of atrial fibrillation with rapid ventricular response that could be contributing to his decompensated heart failure status. As per the patient's request, I did discuss digoxin with Dr. Almeida, who expressed no immediate concerns as long as the levels were monitored and the dose was therapeutic and nontoxic. 5. Macrocytic anemia and iron-deficiency anemia. He is continued on iron supplementation and B12. 6. Neuropathic pain. He is on gabapentin. 7. Obstructive sleep apnea. He is on continuous positive airway pressure (CPAP) at night, which he uses at home, as well. 8. Gout. He is on allopurinol. 9. Hypertension. Controlled with carvedilol and Lasix. 10. Chronic kidney disease. He had a mild bump in his creatinine today. Will continue to monitor closely. We are titrating down his Lasix. 11. Restless legs syndrome. He is on ropinirole. 12. Dyslipidemia. He is pravastatin. 13. Type 2 diabetes. He is on sliding scale and Levemir. 14. Depression. He is on sertraline. 15. History of lung cancer, status post lobectomy and radiation. He is to continue with outpatient followup. 16. History of adrenal insufficiency. He has had no evidence of this or a need for stress-dose steroids during his stay. We are continuing to wean his prednisone and will do this slowly. 17. Gastroesophageal reflux disease. Continue with omeprazole. 18. Deep venous thrombosis (DVT) prophylaxis. He is anticoagulated with Eliquis. DISPOSITION: Potentially discharge home as early as tomorrow. Physical therapy (PT) did see him and work with the patient yesterday, and they feel that he is safe to go home with services.
[2017-01-07] MEDS: SERTRALINE HCL 25 MG TABLET PO SCH (21:17)
[2017-01-08] MEDS: ACETAMINOPHEN TAB 650MG DOSE (2X325MG) PO PRN ×2 (01:48→09:54)
[2017-01-08 03:59] VITALS: BP 138/76
[2017-01-08] MEDS: LevoFLOXacin 500 MG TABLET PO SCH (06:30)
[2017-01-08 07:30] VITALS: BP 126/75
[2017-01-08 07:53] LABS: MEAN CORPUSCULAR HEMOGLOBIN 31.7 pg (27.0-33.0); MEAN CORPUSCULAR HGB CONC 32.6 g/dl (32.0-36.5); MEAN CORPUSCULAR VOLUME 97.3 fl (80.0-96.0); PLATELET COUNT, AUTOMATED 161 10^3/uL (150-450); RED CELL DISTRIBUTION WIDTH 14.5 % (11.5-14.5)
[2017-01-08 08:23] LABS: CALCIUM LEVEL 9.6 MG/DL (8.8-10.2); CREATININE FOR GFR 1.45 MG/DL (0.70-1.30); GLOMERULAR FILTRATION RATE 52.2 (>49); POTASSIUM SERUM 4.3 MEQ/L (3.5-5.1)
[2017-01-08] MEDS: NYSTATIN 500,000 U/5 ML SUSP UDC PO SCH ×4 (08:25→22:19)
[2017-01-08] MEDS: ZONISAMIDE 50 MG CAP (ZONEGRAN) PO SCH ×2 (08:26→22:18)
[2017-01-08] MEDS: FUROSEMIDE 20 MG TAB PO SCH (08:26)
[2017-01-08] MEDS: LACTOBACILLUS ACIDOPHILUS CAP (BACID) PO SCH ×2 (08:26→22:19)
[2017-01-08] MEDS: DIGOXIN 0.125 MG TAB PO SCH (08:26)
[2017-01-08] MEDS: CYANOCOBALAMIN 500 MCG TAB PO SCH (08:26)
[2017-01-08] MEDS: ASPIRIN 81 MG ENTERIC TAB PO SCH (08:26)
[2017-01-08] MEDS: rOPINIRole 1MG TAB PO SCH ×2 (08:26→22:18)
[2017-01-08] MEDS: OMEPRAZOLE 20 MG CAP PO SCH (08:27)
[2017-01-08] MEDS: ALLOPURINOL 300 MG TAB PO SCH (08:27)
[2017-01-08] MEDS: MULTIVITAMINS/MINERALS THERAP 1 TAB PO SCH (08:27)
[2017-01-08] MEDS: APIXABAN 5 MG TAB (ELIQUIS) PO SCH ×2 (08:27→22:19)
[2017-01-08] MEDS: LINEZOLID 600MG TABLET (ZYVOX) PO SCH ×2 (08:27→22:19)
[2017-01-08] MEDS: PRAVASTATIN 20 MG TAB PO SCH (08:27)
[2017-01-08] MEDS: FERROUS SULFATE 325MG TAB PO SCH (08:28)
[2017-01-08] MEDS: MAGNESIUM OXIDE 400 MG TAB (MAG-OX) PO SCH (08:28)
[2017-01-08] MEDS: predniSONE 20 MG TAB PO SCH (08:28)
[2017-01-08] MEDS: GABAPENTIN 300 MG CAP PO SCH ×3 (08:28→22:18)
[2017-01-08] MEDS: CARVedilol 12.5 MG TAB PO SCH (08:29)
[2017-01-08] MEDS: LACTIC ACID 12% LOTION 225 GM BTL TOP SCH (08:29)
[2017-01-08] MEDS: HumaLOG INSULIN (NovoLOG) PER UNIT SC SCH ×4 (08:34→21:00)
[2017-01-08] MEDS: ADVAIR HFA 230/21MCG INHALER INH SCH ×2 (08:38→21:02)
[2017-01-08] MEDS: TIOTROPIUM INHALER/CAPSULE (SPIRIVA) INH SCH (08:38)
[2017-01-08] MEDS: LEVEMIR (INSULIN DETEMIR) 1 UNITS/0.01ML SC SCH ×2 (08:39→22:19)
[2017-01-08] MEDS ORDERED: LOPERAMIDE 2 MG CAP PO PRN (09:45)
[2017-01-08] MEDS ORDERED: CARVedilol 6.25 MG TAB PO ONE (09:45)
--- NOTE | 2017-01-08 12:09 | IPN ---
DATE: 01/08/2017 SUBJECTIVE: The patient tells me that he feels great and he has no complaints. He has no episodes of palpitations. No shortness of breath. No fevers, chills, nausea, vomiting, or diarrhea. OBJECTIVE: VITAL SIGNS: Temperature 96.4, pulse 93, respiratory rate 20, blood pressure 126/75, oxygen saturation 96% on 1 liter nasal cannula. GENERAL: He is a obese elderly who hernandez snot appear to be in any acute distress. HEENT: Cranial nerves II-XII are grossly intact. He is wearing a nasal cannula. He is wearing reading glasses. He has moist mucous membranes. Unable to assess for elevation of central venous pressure secondary to his body habitus. CARDIOVASCULAR EXAMINATION: S1, S2, irregularly irregular. He is not tachycardic at the time of my exam. RESPIRATORY EXAMINATION: Is actually quite clear. ABDOMINAL EXAMINATION: Is grossly obese. EXTREMITIES: No clubbing, cyanosis, or edema. LABORATORY STUDIES: WBC 9.0, hemoglobin 14.3, platelet count 161. Chemistry panel: Sodium 140, potassium 4.3, chloride 102, bicarbonate 30, BUN 61, creatinine 1.4. No new imaging. ASSESSMENT AND PLAN: This is a 66-year-old man with dyspnea. PROBLEMS: 1. Dyspnea, related to decompensated diastolic congestive heart failure. He did undergo diuresis during his last hospitalization, and once again, during this stay. At this time, he appears to be close to euvolemia and his respiratory status is at its baseline. He does not want Lasix 20 mg daily and is at his baseline oxygenation status. 2. Atrial fibrillation with rapid ventricular response (RVR). He has had intermittent episodes of atrial fibrillation where he becomes very controlled and I thought he would be ready for discharge home, however during this stay he has been started on digoxin. At this time, shortly after my visit, he once again went into rapid ventricular response with a heart rate in the 130s to 150s. I have titrated up his Coreg and I have requested Dr. Reid to see him given the complexity of his cardiac conditions and his frequent hospitalizations. I suspect he would benefit from being seen by a residential specialist at this time to aid in rate control and also longterm followup with a residential specialist locally where he is living. 3. Decompensated chronic obstructive pulmonary disease (COPD). I feel that this is likely contributing to his presentation. As such, we continue to wean the steroids. He is on a taper. 4. Possible left-sided pneumonia. I also feel this is less likely, however he did grow Methicillin-resistant Staphylococcus aureus (MRSA) in his sputum. Today is day 4 of 10 of linezolid and also day [address] Montez informed me that previously this antibiotic regimen was selected after he did speak with Dr. Waggoner of infectious disease. A prior authorization for outpatient linezolid has already been obtained. 5. Macrocytic anemia and iron-deficiency anemia. He is continued on iron supplementation and B12. 6. Neuropathic pain. He is on gabapentin. 7. Obstructive sleep apnea. He is on continuous positive airway pressure (CPAP ) at night. 8. Gout. He is on allopurinol. 9. Hypertension. Controlled with carvedilol and Lasix. 10. Chronic kidney disease. Appears to be relatively stable. 11. Restless legs syndrome. He is on ropinirole. 12. Dyslipidemia. He is pravastatin. 13. Type 2 diabetes. He is on sliding scale and Levemir. 14. Depression. He is on sertraline. 15. History of lung cancer, status post lobectomy and radiation. 16. History of adrenal insufficiency. There does not appear to be any evidence of this at this time. We are weaning his steroids slowly. 17. Gastroesophageal reflux disease. He is on omeprazole. 18. Deep venous thrombosis (DVT) prophylaxis. He is anticoagulated with Eliquis. DISPOSITION: He has been cleared by physical therapy and the plan was to discharge him home tomorrow to the care of his daughter, as he is moving in with her due to his recurrent hospitalizations; however, now that is rate is uncontrolled, I would like him to be seen by Dr. Reid of cardiology prior to discharging him. Dr. Reid has agreed to see the patient. home with services. ZULLY
[2017-01-08 12:30] VITALS: BP 126/74
[2017-01-08 16:15] VITALS: BP 152/86
[2017-01-08 20:00] VITALS: BP 142/91
[2017-01-08] MEDS: SERTRALINE HCL 25 MG TABLET PO SCH (22:17)
[2017-01-08] MEDS: CARVedilol 6.25 MG TAB PO SCH (22:18)
[2017-01-09] VITALS (7 sets, daily range): BP systolic 110–133; BP diastolic 69–82
[2017-01-09] MEDS: LevoFLOXacin 500 MG TABLET PO SCH (05:55)
[2017-01-09 06:11] LABS: MEAN CORPUSCULAR HEMOGLOBIN 31.3 pg (27.0-33.0); MEAN CORPUSCULAR HGB CONC 32.2 g/dl (32.0-36.5); MEAN CORPUSCULAR VOLUME 97.2 fl (80.0-96.0); PLATELET COUNT, AUTOMATED 142 10^3/uL (150-450); RED CELL DISTRIBUTION WIDTH 14.4 % (11.5-14.5); WHITE BLOOD COUNT 8.3 10^3/uL (4.0-10.0)
[2017-01-09 06:28] LABS: CALCIUM LEVEL 9.1 MG/DL (8.8-10.2); CREATININE FOR GFR 1.37 MG/DL (0.70-1.30); GLOMERULAR FILTRATION RATE 55.7 (>49); POTASSIUM SERUM 4.3 MEQ/L (3.5-5.1)
[2017-01-09] MEDS: NYSTATIN 500,000 U/5 ML SUSP UDC PO SCH ×4 (08:52→21:54)
[2017-01-09] MEDS: HumaLOG INSULIN (NovoLOG) PER UNIT SC SCH ×4 (08:53→21:00)
[2017-01-09] MEDS: LEVEMIR (INSULIN DETEMIR) 1 UNITS/0.01ML SC SCH ×2 (08:53→21:56)
[2017-01-09] MEDS: ALLOPURINOL 300 MG TAB PO SCH (08:54)
[2017-01-09] MEDS: OMEPRAZOLE 20 MG CAP PO SCH (08:54)
[2017-01-09] MEDS: MAGNESIUM OXIDE 400 MG TAB (MAG-OX) PO SCH (08:54)
[2017-01-09] MEDS: GABAPENTIN 300 MG CAP PO SCH ×3 (08:54→21:54)
[2017-01-09] MEDS: CYANOCOBALAMIN 500 MCG TAB PO SCH (08:54)
[2017-01-09] MEDS: MULTIVITAMINS/MINERALS THERAP 1 TAB PO SCH (08:54)
[2017-01-09] MEDS: LACTOBACILLUS ACIDOPHILUS CAP (BACID) PO SCH ×2 (08:55→21:51)
[2017-01-09] MEDS: PRAVASTATIN 20 MG TAB PO SCH (08:55)
[2017-01-09] MEDS: ZONISAMIDE 50 MG CAP (ZONEGRAN) PO SCH ×2 (08:55→21:55)
[2017-01-09] MEDS: APIXABAN 5 MG TAB (ELIQUIS) PO SCH ×2 (08:55→21:52)
[2017-01-09] MEDS: predniSONE 20 MG TAB PO SCH (08:55)
[2017-01-09] MEDS: FERROUS SULFATE 325MG TAB PO SCH (08:55)
[2017-01-09] MEDS: rOPINIRole 1MG TAB PO SCH ×2 (08:55→21:54)
[2017-01-09] MEDS: ASPIRIN 81 MG ENTERIC TAB PO SCH (08:55)
[2017-01-09] MEDS: FUROSEMIDE 20 MG TAB PO SCH (08:55)
[2017-01-09] MEDS: LINEZOLID 600MG TABLET (ZYVOX) PO SCH ×2 (08:55→21:55)
[2017-01-09] MEDS: DIGOXIN 0.125 MG TAB PO SCH (08:56)
[2017-01-09] MEDS: CARVedilol 6.25 MG TAB PO SCH (08:57)
[2017-01-09] MEDS: TIOTROPIUM INHALER/CAPSULE (SPIRIVA) INH SCH (09:06)
[2017-01-09] MEDS: ADVAIR HFA 230/21MCG INHALER INH SCH ×2 (09:07→20:19)
[2017-01-09] MEDS: LACTIC ACID 12% LOTION 225 GM BTL TOP SCH (09:12)
[2017-01-09] MEDS ORDERED: CARVedilol 6.25 MG TAB PO ONE (10:00)
--- NOTE | 2017-01-09 12:28 | IPN ---
DATE OF SERVICE: 01/09/2017 SUBJECTIVE: The patient tells me that he feels fine. He tells me other than yesterday, he has not had any further episodes of palpitations. Denies fever, chills, chest pain, shortness of breath. OBJECTIVE: Vital signs: Temperature 96.3, pulse 86, respiratory rate 20, blood pressure 110/70, 02 saturation 98% on 1.5 liters nasal cannula. General: He is a morbidly obese man sitting on the edge of the bed. He is resting comfortably and did not appear to be in any acute distress whatsoever. HEENT: Cranial nerves II-XII grossly intact. He is wearing nasal cannula and glasses. He has moist mucous membranes. Cardiovascular exam: S1, S2, regularly irregular. He is not tachycardic at the time of my exam. Respiratory exam: Actually quite clear. Abdominal exam: Grossly obese with bowel sounds present. Abdomen: Soft. Extremities: No clubbing, cyanosis or edema. LABORATORY STUDIES: Today, WBC 8.3, hemoglobin 30.6, platelet count 142. Chemistry panel: Sodium 142, potassium 4.3, chloride 104, bicarbonate 29, BUN 61, creatinine 1.3. GI/PCR panel is negative and no new imaging. ASSESSMENT AND PLAN: This is a 66-year-old man with dyspnea. PROBLEMS: 1. Dyspnea. At the time of his admission was likely related to decompensated diastolic congestive heart failure. He did undergo diuresis aggressively during his last hospitalization and during this hospitalization at this time and he appears to be euvolemic. He is at his baseline respiratory status. He is continued on Lasix 20 mg daily and his blood pressure is controlled with carvedilol. 2. Atrial fibrillation with rapid ventricular response. He has paroxysmal atrial fibrillation. He is rate controlled much of the time but briefly converts into atrial fibrillation and become very rapid. I suspect that this may be playing a role into his decompensation of the time of his presentation as well as possibly dietary indiscretion. I had added digoxin over the last 48 hours and increased his Coreg shortly after visiting him this morning. I am made aware that he has converted into atrial fibrillation once again with a rate in the 1-teens. I will continue to titrate up his Coreg. I did speak with Dr. Reid who is seeing the patient today. He is now maxed up on Coreg and on digoxin and will continue to follow him closely. I suspect that he will be adequately controlled on this regimen and can likely followup with Dr. Reid in outpatient setting. The patient is on Eliquis. 3. Decompensated chronic obstructive pulmonary disease (COPD). I do not feel that he had significant decompensation during his stay here, however, he does have a history of adrenal insufficiency and has been started on prednisone. I will continue with a slow taper. 4. Possible left sided pneumonia, again I feel this is likely contributing to his acute presentation. His sputum did grow Methicillin-resistant staphylococcus aureus (MRSA). Today is day 5 of 10 of the linezolid and day 7 of levofloxacin which we will discontinue. Dr. Montez informed me that he had previously spoken with Dr. Waggoner regarding antibiotic selection and duration of therapy. Prior authorization for linezolid has already been obtained. 5. Macrocytic anemia, iron deficiency anemia. Continue on iron supplementation and B12. 6. Neuropathic pain, he is on gabapentin. 7. Obstructive sleep apnea. He is compliant with CPAP. 8. Gout. He is on allopurinol. 9. Antibiotic related diarrhea. GI/PCR panel is negative. He is on Imodium as needed and Bacid. 10. Chronic kidney disease appears to be stable. 11. Restless leg syndrome. He is on ropinirole. 12. Diabetes. He is on sliding scale insulin, this is controlled. 13. Depression. He is on sertraline. 14. History of adrenal insufficiency as outlined above. We will complete the slow taper. 15. History of lung cancer, status post lobectomy and radiation. 16. Gastroesophageal reflux disease. He is on omeprazole. 17. Deep venous thrombosis (DVT) prophylaxis. He is anticoagulated with Eliquis. DISPOSITION: He has been cleared by physical therapy. I suspect that he will be assessed and stable for discharge home within the next 24-48 hours.
[2017-01-09] MEDS: IPRATROPIUM 0.5MG/ALBUTEROL 2.5MG INH SOL UD 3ML (DUONEB)(J7620) INH PRN (13:00)
[2017-01-09] MEDS: SERTRALINE HCL 25 MG TABLET PO SCH (21:54)
[2017-01-09] MEDS: CARVedilol 12.5 MG TAB PO SCH (21:57)
[2017-01-10 04:00] VITALS: BP 132/77
[2017-01-10 05:28] LABS: MEAN CORPUSCULAR HEMOGLOBIN 31.6 pg (27.0-33.0); MEAN CORPUSCULAR HGB CONC 32.5 g/dl (32.0-36.5); MEAN CORPUSCULAR VOLUME 97.3 fl (80.0-96.0); PLATELET COUNT, AUTOMATED 133 10^3/uL (150-450); RED CELL DISTRIBUTION WIDTH 14.4 % (11.5-14.5); WHITE BLOOD COUNT 7.5 10^3/uL (4.0-10.0)
[2017-01-10 05:45] LABS: CALCIUM LEVEL 8.7 MG/DL (8.8-10.2); CREATININE FOR GFR 1.45 MG/DL (0.70-1.30); GLOMERULAR FILTRATION RATE 52.2 (>49); POTASSIUM SERUM 3.6 MEQ/L (3.5-5.1)
[2017-01-10 07:02] LABS: DIGOXIN LEVEL 0.4 NG/ML (0.5-2.0)
[2017-01-10 07:20] VITALS: BP 130/62
[2017-01-10] MEDS: TIOTROPIUM INHALER/CAPSULE (SPIRIVA) INH SCH (07:23)
[2017-01-10] MEDS: ADVAIR HFA 230/21MCG INHALER INH SCH (07:23)
[2017-01-10] MEDS: HumaLOG INSULIN (NovoLOG) PER UNIT SC SCH (07:40)
[2017-01-10] MEDS: FUROSEMIDE 20 MG TAB PO SCH (08:28)
[2017-01-10] MEDS: NYSTATIN 500,000 U/5 ML SUSP UDC PO SCH (08:28)
[2017-01-10] MEDS: ALLOPURINOL 300 MG TAB PO SCH (08:28)
[2017-01-10] MEDS: LEVEMIR (INSULIN DETEMIR) 1 UNITS/0.01ML SC SCH (08:28)
[2017-01-10] MEDS: APIXABAN 5 MG TAB (ELIQUIS) PO SCH (08:28)
[2017-01-10] MEDS: MAGNESIUM OXIDE 400 MG TAB (MAG-OX) PO SCH (08:28)
[2017-01-10 08:29] VITALS: BP 130/62
[2017-01-10] MEDS: GABAPENTIN 300 MG CAP PO SCH (08:29)
[2017-01-10] MEDS: ZONISAMIDE 50 MG CAP (ZONEGRAN) PO SCH (08:29)
[2017-01-10] MEDS: CARVedilol 12.5 MG TAB PO SCH (08:29)
[2017-01-10] MEDS: LACTOBACILLUS ACIDOPHILUS CAP (BACID) PO SCH (08:29)
[2017-01-10] MEDS: FERROUS SULFATE 325MG TAB PO SCH (08:29)
[2017-01-10] MEDS: PRAVASTATIN 20 MG TAB PO SCH (08:30)
[2017-01-10] MEDS: LINEZOLID 600MG TABLET (ZYVOX) PO SCH (08:30)
[2017-01-10] MEDS: CYANOCOBALAMIN 500 MCG TAB PO SCH (08:30)
[2017-01-10] MEDS: ASPIRIN 81 MG ENTERIC TAB PO SCH (08:30)
[2017-01-10] MEDS: MULTIVITAMINS/MINERALS THERAP 1 TAB PO SCH (08:30)
[2017-01-10] MEDS: DIGOXIN 0.125 MG TAB PO SCH (08:30)
[2017-01-10] MEDS: OMEPRAZOLE 20 MG CAP PO SCH (08:30)
[2017-01-10] MEDS: rOPINIRole 1MG TAB PO SCH (08:30)
[2017-01-10] MEDS: LACTIC ACID 12% LOTION 225 GM BTL TOP SCH (08:31)
[2017-01-10] MEDS ORDERED: predniSONE 10 MG TAB PO SCH (09:00)
[2017-01-10] MEDS ORDERED: FURO20TA2 PO (09:32)
[2017-01-10] MEDS ORDERED: CARV12.5 PO (09:32)
[2017-01-10] MEDS ORDERED: DIGO0.12 PO (09:32)
--- NOTE | 2017-01-10 21:40 | DSES ---
DATE OF ADMISSION: 12/31/2016 DATE OF DISCHARGE: 01/10/2017 CONSULTANTS: Dr. Watson of critical care. DISCHARGE DIAGNOSIS: Decompensated diastolic congestive heart failure (CHF). SECONDARY DIAGNOSES: 1. Atrial fibrillation with rapid ventricular response. 2. Decompensated chronic obstructive pulmonary disease (COPD). 3. Methicillin resistant Staphylococcus aureus (MRSA) pneumonia. 4. Macrocytic anemia. 5. Neuropathic pain. 6. Obstructive sleep apnea. 7. Antibiotic related diarrhea. 8. Chronic kidney disease. 9. Restless leg syndrome. 10. Diabetes. 11. Depression. 12. Adrenal insufficiency. 13. Gastroesophageal reflux disease (GERD). 14. Acute on chronic respiratory failure with hypoxia and hypercapnic respiratory failure. HOSPITAL COURSE: The patient is a 66-year-old man with recurrent hospitalizations, who presented with decompensated diastolic congestive heart failure. He did undergo diuresis with significant improvement in his respiratory status and his symptoms. During his stay, his hospital course was complicated by episodes of paroxysmal atrial fibrillation where he became quite rapid and was quite difficult to control. He did require titration of his Coreg up to 25 mg twice a day and the addition of digoxin. He was seen by Dr. Reid of cardiology and was continued on his anticoagulation. His symptoms did resolve. He remained hemodynamically stable. He was cleared by physical therapy. Given his frequent hospitalizations, it was thought best that he not be discharged back to his previous living environment and he is now being discharged to the care of his daughter, whom he will stay with. Significant education was done by both nursing staff, myself and Dr. Reid. SUBJECTIVE: This morning the patient tells me that he is feeling well. He has no problems and is in no distress. OBJECTIVE: VITAL SIGNS: Temperature 96, pulse 70, respiratory rate 20, blood pressure 130/62, oxygen saturation 99% on 2 liters nasal cannula. GENERAL: He is a morbidly obese, elderly, man who appears older than his stated age, sitting on the edge of his bed. He does not appear to be in any acute distress. HEENT: Cranial nerves II through XII are grossly intact. He has moist mucous membranes. Difficult to assess for any elevation in central venous pressure. He is wearing nasal cannula. CARDIOVASCULAR: S1, S2. Irregularly irregular but he is not tachycardic. RESPIRATORY: Clear and distant secondary to body habitus. ABDOMINAL EXAM: Grossly obese. Bowel sounds present. The abdomen is soft. EXTREMITIES: No clubbing, cyanosis or appreciable edema. LABORATORY STUDIES: WBC 7.5, hemoglobin 13, platelet count 133. Chemistry panel: Sodium 139, potassium 3.6, chloride 100, bicarbonate 32, BUN 52, creatinine 1.4, TSH within normal limits. Microbiology: GI PCR panel was negative. He did have sputum positive for MRSA. IMAGING: He had several chest x-rays, most recent one done on the revealed enlarged cardiac silhouette and pulmonary vascular congestion, compatible with congestive heart failure. He did have a vascular ultrasound done, which ruled out a deep vein thrombosis (DVT) of the right lower extremity. ASSESSMENT AND PLAN: This is a 66-year-old man with resolved acute on chronic hypercapnic, hypoxic respiratory failure related to decompensated diastolic congestive heart failure. 1. Decompensated diastolic congestive heart failure. The patient has returned to his baseline respiratory status. He was diuresed and he appears to be euvolemic. He is on a steady dose of Lasix orally. He has been advised to continue to watch his salt intake and continue to monitor his fluid intake and daily weights and called Dr. Reid's office should he put on more than 3 pounds. 2. Atrial fibrillation with rapid ventricular response. He has paroxysmal atrial fibrillation and has had episodes where he has been quite tachycardic. His carvedilol has been maxed out at 25 mg twice a day and he has been started on digoxin. Yesterday he was in atrial fibrillation but his rate was controlled. He is anticoagulated with Xarelto, which is not new. He will followup with Dr. Reid in the outpatient setting. He is to call his office with any further problems or palpitations. 3. Decompensated chronic obstructive pulmonary disease (COPD). I feel this played a role in his presentation, though he has been on steroids. Given that he has a history of adrenal insufficiency, he will be discharged on his home dose of steroids to continue taking at the discretion of his primary care provider. 4. MRSA pneumonia. Also felt to be likely a contributing factor to his presentation. He did complete a course of levofloxacin for 7 days while here and he is currently on day 6 of 10 for linezolid. did speak with Dr. Waggoner requiring antibiotic selection. He does appear to be improving. He will complete his course of linezolid. 5. Obstructive sleep apnea. He is compliant with CPAP. 6. Macrocytic and iron deficiency anemia. He is continued on iron supplementation, B12. 7. Gout. He was continued on allopurinol. 8. Antibiotic related diarrhea. GI PCR panel was negative while he was in the hospital. 9. Chronic kidney disease, stable. 10. Restless leg syndrome. He is on ropinirole. 11. Diabetes. He was controlled with sliding scale in the hospital. 12. Depression. He is on sertraline. 13. History of lung cancer, status post radiation. 14. Gastroesophageal reflux disease (GERD). He is on omeprazole. 15. Deep vein thrombosis (DVT) prophylaxis. He is treated with Eliquis. DISPOSITION: The patient is discharged home to the care of his daughter. He is at his functional baseline. He is at his baseline respiratory status. His clinical syndrome has resolved. He is to followup with his primary care provider in 7 days and followup with Dr. Reid within 7 days. His activity is as tolerated. His diet is 2-gram sodium, consistent carbohydrate, 2500 mL fluid restricted diet. He is to check his daily weights and for a greater than 3 pound weight change to call Dr. Reid's office and return to the emergency room if symptoms worsen. He is also to followup with urology in 1 week. MEDICATIONS: At the time of discharge: - Coreg 25 mg twice a day - digoxin 0.125 mg daily - Lasix 20 mg daily - linezolid 600 mg twice a day for 10 days - acetaminophen 1 gram every 6 hours as needed for pain - Ventolin HFA two puffs inhaled four times daily as needed for shortness of breath - allopurinol 300 mg daily - ammonia lactate topically to the feet - Eliquis 5 mg twice a day - aspirin 81 mg daily - vitamin B12 100 mcg daily - cyclobenzaprine 10 mg three times a day as needed for muscle spasm - ferrous sulfate 325 mg daily - Breo Ellipta one puff inhaled daily - gabapentin 600 mg three times a day - hydroxyzine 50 mg every 12 hours as needed for anxiety - Levemir 40 units twice a day - ipratropium nebulizer inhaled every 6 hours as needed - magnesium oxide 400 mg daily - multivitamin one tablet daily - Nystatin swish and swallow four times daily - omeprazole 20 mg daily - pravastatin 20 mg daily - prednisone 20 mg three times a day - Metamucil 1 gram daily - ropinirole 1 mg daily and 2 mg at night - sertraline 25 mg at night - Spiriva two puffs inhaled daily - zonisamide 50 mg twice a day Greater than 30 minutes was spent organizing disposition. MTDD
== END 2017-01-10 10:16 | disposition home health service (06) | DRG 291 ==
LOC: M ED 09:45 → EDBD 09:45 → M ED INP 11:43 → M ICU 17:05 → M PCU 01-07 15:20
PROVIDERS: ADMIT Internal Medicine; ATTEND Internal Medicine
DX: I13.0 Hypertensive heart and chronic kidney disease with heart failure and stage 1 through stage 4 chronic kidney disease, or unspecified chronic kidney disease (principal); I50.33 Acute on chronic diastolic (congestive) heart failure; J96.21 Acute and chronic respiratory failure with hypoxia; J96.22 Acute and chronic respiratory failure with hypercapnia; J15.212 Pneumonia due to Methicillin resistant Staphylococcus aureus; E87.2 Acidosis; J44.1 Chronic obstructive pulmonary disease with (acute) exacerbation; E27.40 Unspecified adrenocortical insufficiency; Z68.41 Body mass index [BMI] 40.0-44.9, adult; I48.92 Unspecified atrial flutter; I48.0 Paroxysmal atrial fibrillation; D53.9 Nutritional anemia, unspecified; G47.33 Obstructive sleep apnea (adult) (pediatric); K21.9 Gastro-esophageal reflux disease without esophagitis; M10.9 Gout, unspecified; N18.3 Chronic kidney disease, stage 3 (moderate); E11.42 Type 2 diabetes mellitus with diabetic polyneuropathy; E66.01 Morbid (severe) obesity due to excess calories; G25.81 Restless legs syndrome; E11.22 Type 2 diabetes mellitus with diabetic chronic kidney disease; E78.5 Hyperlipidemia, unspecified; D50.9 Iron deficiency anemia, unspecified; I27.20 Pulmonary hypertension, unspecified; R19.7 Diarrhea, unspecified; T36.95XA Adverse effect of unspecified systemic antibiotic, initial encounter; F32.9 Major depressive disorder, single episode, unspecified; Z85.118 Personal history of other malignant neoplasm of bronchus and lung; Z90.2 Acquired absence of lung [part of]; Z92.3 Personal history of irradiation; Z99.81 Dependence on supplemental oxygen; Z79.82 Long term (current) use of aspirin; Z79.4 Long term (current) use of insulin; Z79.52 Long term (current) use of systemic steroids; Z79.899 Other long term (current) drug therapy; Z88.8 Allergy status to other drugs, medicaments and biological substances; Z90.5 Acquired absence of kidney; Z87.891 Personal history of nicotine dependence; Z90.49 Acquired absence of other specified parts of digestive tract

== ENCOUNTER → 2017-01-13 | Outpatient (REF) | payer MEDICARE, MEDICAID ==
[~2017-01-13] MED LIST changes: +ALLO100T PO; +ASPI81TA85 PO; +BACITAB PO; +BACT800T5 PO; +CARV12.5 PO; +CARV25TA PO; +CENTTAB PO; +CORE12.5 PO; +DIGO0.12 PO; +ELIQ5TAB PO; +FERR325T3 PO; +FIBE625T22 PO; +FURO20TA2 PO; +FURO40TA2 PO; +Fiber PO; +GABA-279 PO; +GABA600T PO; +INSUDET SC; +IPRA2IN INH; +LEVE1INJ5 SC; +LINE600T PO; +LINE60TAB PO; +MAGN400C2 PO; +MAGN400T PO; +METO50TA7 PO; +MOXI1TAB PO; +NYST50SS SS; +OMEP10CASR PO; +PRAV40TA2 PO; +RISATAB3 PO; +ROPI2TAB PO; +VITA500T3 PO; +ZONI50CA PO; +ZONI50CA3 PO
[2017-01-13 12:28] LABS: BASO % 0.3 % (0.0-1.0); IMMATURE GRANULOCYTE % 2.4 % (0-0); LYMPH # 0.6 10^3/uL (1.5-4.5); LYMPH % 5.8 % (24.0-44.0); MEAN CORPUSCULAR HEMOGLOBIN 31.8 pg (27.0-33.0); MEAN CORPUSCULAR HGB CONC 33.1 g/dl (32.0-36.5); MONO # 0.4 10^3/uL (0.0-0.8); MONO % 4.3 % (0.0-5.0); NEUTROPHILS # 8.7 10^3/uL (1.8-7.7); NEUTROPHILS % 87.2 % (36.0-66.0); PLATELET COUNT, AUTOMATED 136 10^3/uL (150-450); RED CELL DISTRIBUTION WIDTH 14.3 % (11.5-14.5)
[2017-01-13 12:58] LABS: ALBUMIN/GLOBULIN RATIO 0.94 (1.00-1.93); BILIRUBIN,TOTAL 0.5 MG/DL (0.2-1.0); CREATININE FOR GFR 1.34 MG/DL (0.70-1.30); FREE T4 0.78 NG/DL (0.76-1.46); GLOMERULAR FILTRATION RATE 57.1 (>49); POTASSIUM SERUM 4.5 MEQ/L (3.5-5.1); TOTAL PROTEIN 6.2 GM/DL (6.4-8.2)
== END ==
LOC: MERGE 09:32 → M SFHCLERA 09:32
PROVIDERS: ATTEND Family Medicine
DX: I48.91 Unspecified atrial fibrillation (principal); E07.9 Disorder of thyroid, unspecified; N18.3 Chronic kidney disease, stage 3 (moderate)
CPT/HCPCS: 80053; 84439; 84443; 85025; 86140; G0463

== ENCOUNTER 2017-01-24 21:25 | Observation (INO) | payer MEDICARE, MEDICAID ==
[~2017-01-24] VITALS: Ht 193 cm; Wt 150.0 kg
[~2017-01-24 21:25] MED LIST changes: -BACITAB PO; -CARV25TA PO; -CORE12.5 PO; -FURO40TA2 PO; -INSUDET SC; -METO50TA7 PO
[2017-01-24] MEDS ORDERED: methylPREDNISolone INJ 125 MG/2 ML VIAL (J2930) IV ONE (22:00)
[2017-01-24 22:12] LABS: BASO % 0.2 % (0.0-1.0); EOS # 0.1 10^3/uL (0.0-0.50); EOS % 1.8 % (0.0-3.0); IMMATURE GRANULOCYTE % 0.9 % (0-0); LYMPH # 0.5 10^3/uL (1.5-4.5); LYMPH % 11.6 % (24.0-44.0); MEAN CORPUSCULAR HEMOGLOBIN 31.6 pg (27.0-33.0); MEAN CORPUSCULAR HGB CONC 32.6 g/dl (32.0-36.5); MEAN CORPUSCULAR VOLUME 96.9 fl (80.0-96.0); MONO # 0.4 10^3/uL (0.0-0.8); MONO % 9.6 % (0.0-5.0); NEUTROPHILS # 3.5 10^3/uL (1.8-7.7); NEUTROPHILS % 75.9 % (36.0-66.0); RED CELL DISTRIBUTION WIDTH 14.5 % (11.5-14.5); WHITE BLOOD COUNT 4.6 10^3/uL (4.0-10.0)
[2017-01-24 22:24] LABS: ADD MORPHOLOGY? YES; PLATELET COUNT, AUTOMATED 72 10^3/uL (150-450)
[2017-01-24 22:40] LABS: ALBUMIN 2.7 GM/DL (3.2-5.2); ALBUMIN/GLOBULIN RATIO 1.04 (1.00-1.93); BILIRUBIN,DIRECT 0.2 MG/DL (0.0-0.2); BILIRUBIN,TOTAL 0.7 MG/DL (0.2-1.0); CALCIUM LEVEL 7.7 MG/DL (8.8-10.2); CREATININE FOR GFR 1.5 MG/DL (0.70-1.30); GLOMERULAR FILTRATION RATE 50.2 (>49); POTASSIUM SERUM 3.3 MEQ/L (3.5-5.1); TOTAL PROTEIN 5.3 GM/DL (6.4-8.2)
[2017-01-24 23:26] LABS: IMMATURE PLATELET FRACTION % 3.3 % (0.0-10.9)
[2017-01-25] VITALS (8 sets, daily range): BP systolic 105–142; BP diastolic 59–88
[2017-01-25] MEDS ORDERED: ACETAMINOPHEN TAB 650MG DOSE (2X325MG) PO PRN
[2017-01-25] MEDS ORDERED: NS 1,000 ML IV SCH
[2017-01-25 00:09] LABS: ABG HCO3 26.7 MEQ/L (22.0-26.0); ABG PARTIAL PRESSURE CO2 42.3 mmHg (35.0-45.0); ABG PARTIAL PRESSURE O2 81.2 mmHg (75.0-100.0); ABG STANDARD HCO3 26.2 MEQ/L (22.0-26.0); ABG pH (ARTERIAL) 7.418 UNITS (7.350-7.450)
[2017-01-25] MEDS ORDERED: GLUCOSE 4 GM CHEW TABLET PO PRN (00:15)
[2017-01-25] MEDS ORDERED: GLUCAGON FOR INJ 1 MG VIAL (J1610) SC PRN (00:15)
[2017-01-25] MEDS ORDERED: DEXTROSE 50% 50 ML SYRINGE IV PRN (00:15)
[2017-01-25] MEDS ORDERED: INSUDET SC (00:17)
[2017-01-25] MEDS ORDERED: ELIQ5TAB PO (00:17)
[2017-01-25] MEDS ORDERED: GABA600T PO (00:17)
[2017-01-25] MEDS ORDERED: ZONI50CA3 PO (00:17)
[2017-01-25] MEDS ORDERED: CARV25TA PO (00:17)
[2017-01-25] MEDS ORDERED: DIGO0.12 PO (00:18)
[2017-01-25] MEDS ORDERED: FURO20TA2 PO (00:18)
[2017-01-25] MEDS: HumaLOG INSULIN (NovoLOG) PER UNIT SC SCH ×5 (01:18→20:45)
--- NOTE | 2017-01-25 06:37 | ECGEPIP ---
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
--- NOTE | 2017-01-25 07:38 | REP ---
PA and lateral chest: Comparisons are PA and lateral views of 10/27/[address] of 11/23/2016. There is a persisting right lower lobe infiltrate, unchanged. The remainder of the lung goldstein are clear and unchanged. Cardiac size normal. The yesenia, mediastinum, bony thorax unremarkable. Impression: Persisting right lower lobe infiltrate. Signed by Jorden Mccauley MD 01/25/2017 07:29 A
[2017-01-25] MEDS: SENOKOT S TAB PO SCH ×2 (08:04→20:56)
[2017-01-25] MEDS ORDERED: ALBUTEROL 90 MCG/ACT 8GM HFA INHALER INH PRN (08:15)
[2017-01-25 08:55] LABS: MEAN CORPUSCULAR HGB CONC 33.3 g/dl (32.0-36.5); RED CELL DISTRIBUTION WIDTH 14.2 % (11.5-14.5)
[2017-01-25 08:59] LABS: PLATELET COUNT, AUTOMATED 78 10^3/uL (150-450)
[2017-01-25 09:02] LABS: CALCIUM LEVEL 8.1 MG/DL (8.8-10.2); CREATININE FOR GFR 1.36 MG/DL (0.70-1.30); GLOMERULAR FILTRATION RATE 56.2 (>49); MAGNESIUM LEVEL 1.5 MG/DL (1.8-2.4)
[2017-01-25] MEDS: GABAPENTIN 300 MG CAP PO SCH ×3 (10:33→20:55)
[2017-01-25] MEDS: MULTIVITAMINS/MINERALS THERAP 1 TAB PO SCH (10:33)
[2017-01-25] MEDS: MAGNESIUM OXIDE 400 MG TAB (MAG-OX) PO SCH (10:33)
[2017-01-25] MEDS: ASPIRIN 81 MG ENTERIC TAB PO SCH (10:34)
[2017-01-25] MEDS: ZONISAMIDE 50 MG CAP (ZONEGRAN) PO SCH ×2 (10:34→20:55)
[2017-01-25] MEDS: DIGOXIN 0.125 MG TAB PO SCH (10:34)
[2017-01-25] MEDS: CYANOCOBALAMIN 500 MCG TAB PO SCH (10:34)
[2017-01-25] MEDS: rOPINIRole 1MG TAB PO SCH (10:34)
[2017-01-25] MEDS: LEVEMIR (INSULIN DETEMIR) 1 UNITS/0.01ML SC SCH ×2 (10:34→20:56)
[2017-01-25] MEDS: FIBER-CON 625 MG TAB PO SCH (10:34)
[2017-01-25] MEDS: ALLOPURINOL 300 MG TAB PO SCH (10:35)
[2017-01-25] MEDS: PRAVASTATIN 20 MG TAB PO SCH (10:35)
[2017-01-25] MEDS: APIXABAN 5 MG TAB (ELIQUIS) PO SCH ×2 (10:35→20:56)
[2017-01-25] MEDS: FERROUS SULFATE 325MG TAB PO SCH (10:35)
[2017-01-25] MEDS: OMEPRAZOLE 20 MG CAP PO SCH (10:35)
[2017-01-25] MEDS: MAG SULF 1GM/100ML (MAG RUN) 1 GM in APPROPRIATE DILUENT 1 EA IV SCH ×3 (11:17→14:56)
--- NOTE | 2017-01-25 11:32 | HPE ---
DATE OF ADMISSION: 01/24/2017 PRIMARY CARE PROVIDER: Dr. Alex Pike ATTENDING PHYSICIAN: Dr. Guerrero. CHIEF COMPLAINT: General weakness and low blood pressure. HISTORY OF PRESENT ILLNESS: The patient is a 66-year-old white male with several chronic medical conditions including chronic obstructive pulmonary disease (COPD) and lung cancer who presents to the hospital for evaluation of general weakness and low blood pressure. The history is provided by himself as well as by his daughter, who is with him in the emergency room. The patient is a poor historian. He had very frequent admissions recently and the one was back in 11/29/2016 and discharged home on 12/24/2016. Per the daughter, after discharge from the hospital, the patient is living with his daughter who is taking care of him. He is doing pretty well and he is kind of independent now. Also the daughter states he checked his blood pressure recently, which was fine. Today, the patient complains he is not feeling good and his daughter checked his blood pressure and found his blood pressure down to 80/60 and his heating plant superintendent, Dr. Reid was called and recommended he come to the emergency room for further evaluation. In the emergency room, his blood pressure was checked and is better around 100. His workup in the emergency room was at his baseline. Due to general weakness the medicine service was called for admission. REVIEW OF SYSTEMS: Denies fever. No chills. No headache. No blurry vision. No shortness of breath. No chest pain. No nausea. No vomiting. No abdominal pain. No diarrhea. No dysuria. No tingling, numbness, weakness in the arms or lower extremities, but general weakness. All other systems reviewed but negative. PAST MEDICAL HISTORY: 1. COPD. He is on 2.5 liters oxygen at night only. 2. Obstructive sleep apnea on CPAP. 3. Hypertension. 4. Chronic kidney disease (CKD) stage III. 5. Type 2 diabetes. 6. Peripheral neuropathy. 7. History of lung cancer. Now he is cancer free. PAST SURGICAL HISTORY: 1. Right-sided nephrectomy. 2. Right-sided adrenal gland resection. 3. Left lung upper lobectomy. 4. Cholecystectomy. 5. Tonsillectomy. 6. Liposarcoma removal with partial colectomy. FAMILY HISTORY: His mother had a history of colon cancer. One of the sisters had a history of brain cancer, throat cancer. ALLERGIES: No known drug allergies. SOCIAL HISTORY: Former smoker. No tobacco abuse. No illicit drug abuse. His daughter is his healthcare proxy. He is a FULL CODE. MEDICATIONS: Reviewed. PHYSICAL EXAMINATION: VITAL SIGNS: Temperature 98.2, heart rate 97, respiratory rate 20, blood pressure 108.74, oxygen saturation is 96% in room air. GENERAL: He is awake, alert and oriented times three. He is in no acute distress. HEENT: Atraumatic. Pupils equal, round, and reactive to light. No jaundice. Extraocular muscles intact. Ear, nose and throat are normal. Mouth, mucosa not dry. LUNGS: Decreased breath sounds, but mild wheezing. HEART: S1, S2 regular. No murmur. ABDOMEN: Soft, positive bowel sounds. Nontender. EXTREMITIES: No edema in bilateral lower extremity. NEUROLOGICAL: Nonfocal. SKIN: No rash PSYCH: No acute psychosis. DIAGNOSTIC LAB STUDIES: Include the following: CBC and differential WBC 4.6, hemoglobin and hematocrit 10.3/31.6, platelets 72. Sodium 141, potassium 3.3, chloride 101, bicarbonate 29, BUN 28, creatinine 1.5, glucose 150. BNP up to 11,077. Chest x-ray did not show any acute changes. IMPRESSION: 1. General weakness. 2. Chronic obstructive pulmonary disease (COPD). 3. Obstructive sleep apnea. 4. Hypertension. 5. Chronic kidney disease stage III. 6. Type 2 diabetes. 7. Morbid obesity. PLAN: He will be admitted to the medical/surgical floor for observation. Currently, he is at his baseline. He does not have COPD exacerbation or anything else. His platelets are down to 72 previously it was normal. We need to followup and make sure it is stable. Will continue his home medications. Will get physical therapy evaluation to decide whether he qualifies for rehabilitation or not.
--- NOTE | 2017-01-25 14:58 | IPNPDOC ---
Subjective Date Seen The patient was seen on 01/25/17. Subjective Chief Complaint/HPI The patient is a 66-year-old male admitted with a reason for visit of Hypotension. Events since last encounter Patient seen and examined at the bedside. No acute overnight events noted. Objective Physical Examination General Exam: Positive: Alert, Cooperative, No Acute Distress ENT Exam: Positive: Atraumatic, Mucous membr. moist/pink Neck Exam: Negative: JVD Chest Exam: Positive: Clear to auscultation, Normal air movement Heart Exam: Positive: Rate Normal, Normal S1, Normal S2 Abdomen Exam: Positive: Soft, Negative: Tenderness Extremity Exam: Negative: Tenderness, Swelling Psych Exam: Positive: Oriented x 3 Assessment /Plan Plan/VTE VTE Prophylaxis Ordered?: Yes Plan Episode of Hypotension No signs or symptoms of infection present here Patient has been normotensive here since arrival to the ER His Coreg and Lasix are being held We will cont to monitor his b/p Generalized Weakness PT consulted Hx of Atrial Fibrillation, rate controlled Coreg held 2/2 Episode of Hypotension at home Cont digoxin Cont Eliquis Chronic Kidney Disease Stage III Serum Cr appears to be at baseline COPD, stable Continue regimen as prescribed Obstructive sleep apnea May use own CPAP Gout Continue allopurinol GERD Continue PPI Restless leg syndrome Continue ropinirole Dyslipidemia Continue statin Diabetes mellitus Levemir as ordered Insulin sliding scale Depression, stable continue Zoloft 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 VS, I&O, 24H, Fishbone Vital Signs/I&O Vital Signs Date Time Temp Pulse Resp B/P (MAP) Pulse Ox O2 Delivery O2 Flow Rate FiO2 01/25/17 13:56 Room Air 01/25/17 13:10 2.0 01/25/17 13:09 22 01/25/17 10:34 92 01/25/17 10:00 120/62 (81) 97 01/25/17 06:00 96.4 Laboratory Data 24H LABS Laboratory Tests 2 01/24/17 22:00: Immature Granulocyte % (Auto) 0.9H, White Blood Count 4.6, Red Blood Count 3.26L , Hemoglobin 10.3L, Hematocrit 31.6L, Mean Corpuscular Volume 96.9H, Mean Corpuscular Hemoglobin 31.6, Mean Corpuscular Hemoglobin Concent 32.6, Red Cell Distribution Width 14.5, Platelet Count 72L, Neutrophils (%) (Auto) 75.9H, Lymphocytes (%) (Auto) 11.6L, Monocytes (%) (Auto) 9.6H, Eosinophils (%) (Auto) 1.8, Basophils (%) (Auto) 0.2, Neutrophils # (Auto) 3.5, Lymphocytes # (Auto) 0.5L, Monocytes # (Auto) 0.4, Eosinophils # (Auto) 0.1, Basophils # (Auto) 0.0, Immature Granulocyte # (Auto) 0.0, Nucleated Red Blood Cells % (auto) 1.3H, Platelet Estimate DECREASED, Immature Platelet Fraction 3.3, Anion Gap 11, Glomerular Filtration Rate 50.2, Lactic Acid Level 2.0, Calcium Level 7.7L, Aspartate Amino Transf (AST/SGOT) 21, Alanine Aminotransferase (ALT/SGPT) 51, Alkaline Phosphatase 80, Total Bilirubin 0.7, Direct Bilirubin 0.2, NT-Pro-B- Type Natriuretic Peptide 1177H, Total Protein 5.3L, Albumin 2.7L, Albumin/ Globulin Ratio 1.04 01/24/17 23:49: Blood Gas Bicarbonate Standard 26.2H, Arterial Blood pH 7.418, Arterial Blood Partial Pressure CO2 42.3, Arterial Blood Partial Pressure O2 81.2, Arterial Blood Total CO2 28.0, Arterial Blood HCO3 26.7H, Arterial Blood Base Excess 2.0 , Arterial Blood Oxygen Saturation 95.8 01/25/17 07:21: Bedside Glucose (Misc Panel) 248H 01/25/17 08:33: Nucleated Red Blood Cells % (auto) 1.8H, Anion Gap 12, Glomerular Filtration Rate 56.2, Calcium Level 8.1L, Blood Urea Nitrogen 24H, Creatinine 1.36H, Sodium Level 139, Potassium Level 4.0#, Chloride Level 101, Carbon Dioxide Level 26, Magnesium Level 1.5L 01/25/17 10:59: Total Creatine Kinase 23L, Creatine Kinase MB 1.8, Creatine Kinase MB Relative Index 7.82H, Troponin I 0.04 01/25/17 12:30: Bedside Glucose (Misc Panel) 232H CBC/BMP Laboratory Tests 01/24/17 22:00 Red Blood Count 3.26 L, Mean Corpuscular Volume 96.9 H, Mean Corpuscular Hemoglobin 31.6, Mean Corpuscular Hemoglobin Concent 32.6, Red Cell Distribution Width 14.5, Neutrophils (%) (Auto) 75.9 H, Lymphocytes (%) (Auto) 11.6 L, Monocytes (%) (Auto) 9.6 H, Eosinophils (%) (Auto) 1.8, Basophils (%) ( Auto) 0.2, Neutrophils # (Auto) 3.5, Lymphocytes # (Auto) 0.5 L, Monocytes # ( Auto) 0.4, Eosinophils # (Auto) 0.1, Basophils # (Auto) 0.0 01/25/17 08:33 Red Blood Count 3.47 L, Mean Corpuscular Volume 96.0, Mean Corpuscular Hemoglobin 32.0, Mean Corpuscular Hemoglobin Concent 33.3, Red Cell Distribution Width 14.2, Calcium Level 8.1 L Microbiology Microbiology 01/24/17 Blood Culture, Received Pending NGUYEN MOORE MD Jan 25, 2017 14:58
--- NOTE | 2017-01-25 15:12 | ECGEPIP ---
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
[2017-01-25] MEDS: TIOTROPIUM INHALER/CAPSULE (SPIRIVA) INH SCH (17:44)
[2017-01-25] MEDS: FLUTICASONE HFA 220 MCG 12 GM INHALER (FLOVENT) INH SCH (17:45)
[2017-01-25] MEDS ORDERED: SERTRALINE HCL 25 MG TABLET PO SCH (21:00)
[2017-01-25] MEDS ORDERED: rOPINIRole 1MG TAB PO SCH (21:00)
[2017-01-26 04:00] VITALS: BP 129/61
[2017-01-26 06:12] LABS: MEAN CORPUSCULAR HEMOGLOBIN 31.7 pg (27.0-33.0); MEAN CORPUSCULAR VOLUME 96.1 fl (80.0-96.0); RED CELL DISTRIBUTION WIDTH 14.2 % (11.5-14.5); WHITE BLOOD COUNT 7.8 10^3/uL (4.0-10.0)
[2017-01-26 06:13] LABS: PLATELET COUNT, AUTOMATED 85 10^3/uL (150-450)
[2017-01-26 06:14] LABS: IMMATURE PLATELET FRACTION % 5.1 % (0.0-10.9)
[2017-01-26 06:30] LABS: ANION GAP 8 MEQ/L (8-16); BLOOD UREA NITROGEN 26 MG/DL (7-18); CALCIUM LEVEL 8.1 MG/DL (8.8-10.2); CARBON DIOXIDE LEVEL 29 MEQ/L (21-32); CHLORIDE LEVEL 105 MEQ/L (98-107); CREATININE FOR GFR 1.26 MG/DL (0.70-1.30); GLOMERULAR FILTRATION RATE > 60.0 (>49); GLUCOSE, FASTING 164 MG/DL (80-110); MAGNESIUM LEVEL 1.9 MG/DL (1.8-2.4); POTASSIUM SERUM 3.7 MEQ/L (3.5-5.1); SODIUM LEVEL 142 MEQ/L (136-145)
[2017-01-26] MEDS: HumaLOG INSULIN (NovoLOG) PER UNIT SC SCH (07:44)
[2017-01-26] MEDS: MAGNESIUM OXIDE 400 MG TAB (MAG-OX) PO SCH (07:46)
[2017-01-26] MEDS: MULTIVITAMINS/MINERALS THERAP 1 TAB PO SCH (07:47)
[2017-01-26] MEDS: ALLOPURINOL 300 MG TAB PO SCH (07:48)
[2017-01-26] MEDS: OMEPRAZOLE 20 MG CAP PO SCH (07:48)
[2017-01-26] MEDS: LEVEMIR (INSULIN DETEMIR) 1 UNITS/0.01ML SC SCH (07:53)
[2017-01-26] MEDS: CYANOCOBALAMIN 500 MCG TAB PO SCH (07:54)
[2017-01-26] MEDS: APIXABAN 5 MG TAB (ELIQUIS) PO SCH (07:54)
[2017-01-26] MEDS: FERROUS SULFATE 325MG TAB PO SCH (07:54)
[2017-01-26] MEDS: SENOKOT S TAB PO SCH (07:54)
[2017-01-26] MEDS: GABAPENTIN 300 MG CAP PO SCH (07:54)
[2017-01-26] MEDS: DIGOXIN 0.125 MG TAB PO SCH (07:54)
[2017-01-26] MEDS: ASPIRIN 81 MG ENTERIC TAB PO SCH (07:55)
[2017-01-26] MEDS: ZONISAMIDE 50 MG CAP (ZONEGRAN) PO SCH (07:55)
[2017-01-26] MEDS: PRAVASTATIN 20 MG TAB PO SCH (07:55)
[2017-01-26] MEDS: FIBER-CON 625 MG TAB PO SCH (07:55)
[2017-01-26] MEDS: rOPINIRole 1MG TAB PO SCH (07:55)
[2017-01-26 08:00] VITALS: BP 138/73
[2017-01-26] MEDS: TIOTROPIUM INHALER/CAPSULE (SPIRIVA) INH SCH (09:03)
[2017-01-26] MEDS: FLUTICASONE HFA 220 MCG 12 GM INHALER (FLOVENT) INH SCH (09:03)
[2017-01-26] MEDS ORDERED: CORE12.5 PO (10:57)
--- NOTE | 2017-01-26 15:05 | DS.PDOC ---
Discharge Summary General Date of Admission Jan 24, 2017 at 21:26 Date of Discharge 01/26/17 Discharge Summary PROCEDURES PERFORMED DURING STAY: None. ADMITTING/DISCHARGE DIAGNOSES: Hypotension COMPLICATIONS/CHIEF COMPLAINT: Hypotension. HISTORY OF PRESENT ILLNESS: . 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 The patient states that he was checking his blood pressure all day and was found to be in the 80s systolic over 60s diastolic. Aside from generalized weakness, the patient denied any acute complaint of fevers, chills, chest pain, palpitations, abdominal pain, and/or any nausea/vomiting/diarrhea. The patient did call the on-call nailing machine operator automatic office, and was told to come to the ER for further evaluation. During hospitalization, the patient's blood pressure was noted to be within normal limits. The patient's blood pressure medications were held. He remained hemodynamically stable. There were no overt signs or symptoms of infection involved. The patient's Coreg was restarted at half the dose of 12.5 mg twice a day. The patient's Lasix medication has been discontinued. These changes were discussed with the patient's nailing machine operator automatic office (Dr. Nobles). The patient was also evaluated by physical therapy, and cleared to be discharged home. I did discuss all the above with the patient's daughter Dorothy, and answered all questions to her and the patient's satisfaction. I have advised the patient to follow-up with his PCP within 7 days, and with his scheduled outpatient cardiology appointment on 02/06/17. DISCHARGE MEDICATIONS: Please see below. ALLERGIES: Please see below. PHYSICAL EXAMINATION ON DISCHARGE: VITAL SIGNS: Please see below. General Exam: Positive: Alert, Cooperative, No Acute Distress ENT Exam: Positive: Atraumatic, Mucous membr. moist/pink Neck Exam: Negative: JVD Chest Exam: Positive: Clear to auscultation, Normal air movement Heart Exam: Positive: Rate Normal, Normal S1, Normal S2 Abdomen Exam: Positive: Soft, Negative: Tenderness Extremity Exam: Negative: Tenderness, Swelling Psych Exam: Positive: Oriented x 3 LABORATORY DATA: Please see below. IMAGING: PA and lateral chest: Comparisons are PA and lateral views of 10/27/[address] of 11/23/2016. There is a persisting right lower lobe infiltrate, unchanged. The remainder of the lung goldstein are clear and unchanged. Cardiac size normal. The yesenia, mediastinum, bony thorax unremarkable. Impression: Persisting right lower lobe infiltrate. PROGNOSIS: Fair ACTIVITY: As tolerated. DIET: . 2 g low sodium diet DISCHARGE PLAN: DISPOSITION: 01 Home, Self-Care. DISCHARGE INSTRUCTIONS: I have advised the patient to follow-up with his PCP within 7 days, and with his scheduled outpatient cardiology appointment on 02/06/17. DISCHARGE CONDITION: Stable. TIME SPENT ON DISCHARGE: Greater than 30 minutes. Vital Signs/I&Os Vital Signs Date Time Temp Pulse Resp B/P (MAP) Pulse Ox O2 Delivery O2 Flow Rate FiO2 01/26/17 08:01 Room Air 01/26/17 08:00 97.9 72 18 138/73 (94) 93 01/26/17 04:00 2.5 I&O- Last 24 Hours up to 6 AM 01/27/17 06:00 Intake Total 720 ml Balance 720 ml Laboratory Data Labs 24H Laboratory Tests 2 01/25/17 17:07: Bedside Glucose (Misc Panel) 213H 01/25/17 18:45: Total Creatine Kinase 38L, Creatine Kinase MB 2.2, Creatine Kinase MB Relative Index 5.78H, Troponin I 0.03# 01/25/17 20:43: Bedside Glucose (Misc Panel) 233H 01/26/17 02:45: Total Creatine Kinase 21L, Creatine Kinase MB 2.5, Creatine Kinase MB Relative Index 11.90H, Troponin I 0.04# 01/26/17 05:52: Nucleated Red Blood Cells % (auto) 0.9H, Immature Platelet Fraction 5.1, Anion Gap 8, Glomerular Filtration Rate > 60.0, Blood Urea Nitrogen 26H, Creatinine 1.26, Sodium Level 142, Potassium Level 3.7, Chloride Level 105, Carbon Dioxide Level 29, Calcium Level 8.1L, Magnesium Level 1.9 01/26/17 09:56: Total Creatine Kinase 28L, Creatine Kinase MB 2.7, Creatine Kinase MB Relative Index 9.64H, Troponin I 0.04 01/26/17 11:42: Bedside Glucose (Misc Panel) 158H CBC/BMP Laboratory Tests 01/26/17 05:52 Red Blood Count 3.06 L, Mean Corpuscular Volume 96.1 H, Mean Corpuscular Hemoglobin 31.7, Mean Corpuscular Hemoglobin Concent 33.0, Red Cell Distribution Width 14.2, Calcium Level 8.1 L FSBS Laboratory Tests Test 01/25/17 17:07 01/25/17 20:43 01/26/17 11:42 Range/Units Bedside Glucose (Misc Panel) 213 233 158 80-115 MG/DL Microbiology Microbiology 01/24/17 Blood Culture - Preliminary, Resulted No growth after 24 hours . All specim... Discharge Medications Scheduled (Digoxin) 125 Mcg Tab, 125 MCG PO DAILY, (Reported) Allopurinol (Zyloprim) 300 Mg Tab, 300 MG PO DAILY, (Reported) Apixaban Base (Eliquis) 5 Mg Tab, 5 MG PO BID, (Reported) Aspirin (Aspir-81) 81 Mg Tab, 81 MG PO DAILY, (Reported) Calcium Polycarbophil (Fiber) 625 Mg Tab, 625 MG PO DAILY, (Reported) Carvedilol (Coreg) 12.5 Mg Tab, 12.5 MG PO BID Cyanocobalamin (Vitamin B-12) 500 Mcg Tab, 500 MCG PO DAILY, (Reported) Ferrous Sulfate (Ferrous Sulfate) 325 Mg Tab, 325 MG PO DAILY, (Reported) Fluticasone/Vilanterol (Breo Ellipta 200-25 Mcg/INH) 1 Inh Inh, 1 PUFF INH DAILY , (Reported) Gabapentin (Gabapentin) 600 Mg Tab, 600 MG PO TID, (Reported) Insulin Detemir (Levemir) 1 Units/0.01 Ml Susp, 40 UNITS SC BID, (Reported) HOLD FOR GLUCOSE<180 Magnesium Oxide (Magnesium Oxide) 400 Mg Tab, 400 MG PO DAILY, (Reported) Multivitamins *[facility]OCKED* (Thera M Plus *[facility]OCK[facility]*) 1 Tab Tab, 1 TAB PO DAILY, (Reported) Omeprazole (Omeprazole) 20 Mg Cap, 20 MG PO DAILY, (Reported) Pravastatin Sodium (Pravastatin Sodium) 20 Mg Tab, 20 MG PO DAILY, (Reported) Ropinirole Hydrochloride (Ropinirole HCl) 1 Mg Tab, 1 MG PO DAILY, (Reported) Ropinirole Hydrochloride (Ropinirole HCl) 2 Mg Tab, 2 MG PO QHS, (Reported) Sertraline Hcl (Sertraline HCl) 25 Mg Tab, 25 MG PO QHS, (Reported) Tiotropium [place] Monohydrate (Spiriva Respimat) 2.5 Mcg/Act Spr, 2 INHALATION INH DAILY, (Reported) Zonisamide (Zonisamide) 50 Mg Cap, 50 MG PO BID, (Reported) Scheduled PRN Albuterol Sulfate (Ventolin Hfa) 200 Puff/8 Gm Aers, 2 PUFF INH Q4H PRN for SHORTNESS OF BREATH, (Reported) Albuterol/Ipratropium (Ipratropium [place]/Albut 0.5-2.5 (3) mg/3Ml) 1 Karon Karon, 1 VIAL INH Q6H PRN for SHORTNESS OF BREATH, (Reported) Hydroxyzine HCl (Hydroxyzine HCl) 50 Mg Tab, 50 MG PO Q12H PRN for ANXIETY, ( Reported) Allergies Coded Allergies: Hexachlorophene (Verified Allergy, Unknown, ITCHING, 08/28/16) FROM PHISONGUYEN RHODES MD Jan 26, 2017 15:05
== END 2017-01-26 11:58 | disposition home or self-care (01) ==
LOC: M ED 21:25 → EDBD 21:25 → M ED INP 21:26 → MERGE 21:26 → M MS4PR 01-25 01:00 → M PCU 01-25 13:45
PROVIDERS: ADMIT Hospitalist; ATTEND Hospitalist
DX: I95.9 Hypotension, unspecified (principal); R91.8 Other nonspecific abnormal finding of lung field; R53.1 Weakness; R06.02 Shortness of breath; I48.91 Unspecified atrial fibrillation; J44.9 Chronic obstructive pulmonary disease, unspecified; G47.33 Obstructive sleep apnea (adult) (pediatric); M10.9 Gout, unspecified; E66.01 Morbid (severe) obesity due to excess calories; I13.0 Hypertensive heart and chronic kidney disease with heart failure and stage 1 through stage 4 chronic kidney disease, or unspecified chronic kidney disease; I50.9 Heart failure, unspecified; N18.3 Chronic kidney disease, stage 3 (moderate); Z85.118 Personal history of other malignant neoplasm of bronchus and lung; Z90.2 Acquired absence of lung [part of]; Z92.3 Personal history of irradiation; G25.81 Restless legs syndrome; F32.9 Major depressive disorder, single episode, unspecified; Z79.899 Other long term (current) drug therapy; Z79.01 Long term (current) use of anticoagulants; Z79.82 Long term (current) use of aspirin; Z79.4 Long term (current) use of insulin; Z88.3 Allergy status to other anti-infective agents
CPT/HCPCS: 36415; 71020; 80048; 80076; 82550; 82553; 82803; 83605; 83735; 83880; 84484; 85025; 85027; 85049; 85055; 87040; 93005; 93041; 94640; 94760; 97161; 99285; G0378; J2930; J3475

== ENCOUNTER 2017-01-28 17:01 | Inpatient (IN) | payer MEDICARE, MEDICAID ==
[~2017-01-28] VITALS: Ht 190.5 cm; Wt 122.1 kg
[~2017-01-28 17:01] MED LIST changes: +CARV25TA PO; +CORE12.5 PO; +INSUDET SC
[2017-01-28 17:26] LABS: ABG HCO3 28.9 MEQ/L (22.0-26.0); ABG PARTIAL PRESSURE CO2 50.2 mmHg (35.0-45.0); ABG PARTIAL PRESSURE O2 54.1 mmHg (75.0-100.0); ABG TOTAL CO2 30.4 MEQ/L (23.0-31.0); ABG pH (ARTERIAL) 7.378 UNITS (7.350-7.450)
[2017-01-28] MEDS ORDERED: FUROSEMIDE 100 MG/10 ML VIAL (J1940) IV ONE (17:30)
[2017-01-28 18:47] LABS: MEAN CORPUSCULAR HGB CONC 32.2 g/dl (32.0-36.5); MEAN CORPUSCULAR VOLUME 99.4 fl (80.0-96.0); RED CELL DISTRIBUTION WIDTH 14.9 % (11.5-14.5); WHITE BLOOD COUNT 5.7 10^3/uL (4.0-10.0)
[2017-01-28 18:49] LABS: BLASTS POS FLAG; LEFT SHIFT POS FLAG; PLATELET COUNT, AUTOMATED 80 10^3/uL (150-450); POS COUNT POS FLAG; POSITIVE MORPH POS FLAG
[2017-01-28 18:50] LABS: ADD MANUAL DIFFER YES; DIFF SLIDE NUMBER 276
[2017-01-28 18:52] LABS: IMMATURE PLATELET FRACTION % 3.9 % (0.0-10.9)
[2017-01-28 18:59] LABS: INR 1.14
[2017-01-28] MEDS ORDERED: CARV12.5 PO (19:00)
[2017-01-28 19:19] LABS: ALBUMIN/GLOBULIN RATIO 1.11 (1.00-1.93); ALKALINE PHOSPHATASE 65 U/L (45-117); ALT/SGPT 53 U/L (12-78); ANION GAP 6 MEQ/L (8-16); AST/SGOT 31 U/L (7-37); BILIRUBIN,DIRECT 0.2 MG/DL (0.0-0.2); BILIRUBIN,TOTAL 0.7 MG/DL (0.2-1.0); BLOOD UREA NITROGEN 13 MG/DL (7-18); CALCIUM LEVEL 7.8 MG/DL (8.8-10.2); CARBON DIOXIDE LEVEL 32 MEQ/L (21-32); CHLORIDE LEVEL 101 MEQ/L (98-107); CREATININE FOR GFR 1.07 MG/DL (0.70-1.30); GLOMERULAR FILTRATION RATE > 60.0 (>49); GLUCOSE, FASTING 147 MG/DL (80-110); SODIUM LEVEL 139 MEQ/L (136-145); TOTAL PROTEIN 5.7 GM/DL (6.4-8.2)
[2017-01-28 19:28] LABS: BANDS 4 % (< 11); BASOPHILS 1 % (0-4); EOSINOPHILS 1 % (0-5)
[2017-01-28 19:29] LABS: POLYCHROMASIA 2+
--- NOTE | 2017-01-28 19:47 | ECGEPIP ---
Stationary ECG Study [facility] - ED Test Date: 2017-01-28 Pat Name: ARIN GUADARRAMA Department: Room: - Gender: M Security Test Engineer: BORIS : 1950 Requested By: NOEL MACIAS Order Number: [id number] Reading MD: Kev Katz Measurements Intervals Mobile Rate: 129 P: 16 RI: 160 QRS: 26 QRSD: 84 T: 29 QT: 290 QTc: 426 Interpretive Statements SINUS TACHYCARDIA WITH OCCASIONAL SUPRAVENTRICULAR PREMATURE COMPLEXES NSTTW ABNORMALITIES RHYTHM CHANGE COMPARED TO 01/04/17 Electronically Signed On 01-28-2017 19:47:25 EST by Kev Katz
[2017-01-28] MEDS: rOPINIRole 1MG TAB PO SCH (21:00)
[2017-01-28] MEDS: HumaLOG INSULIN (NovoLOG) PER UNIT SC SCH (21:00)
[2017-01-28 21:16] LABS: DIGOXIN LEVEL 0.9 NG/ML (0.5-2.0)
[2017-01-28] MEDS ORDERED: ALBUTEROL SULFATE 2.5 MG/0.5 ML INH NEB SOLN INH PRN (21:30)
[2017-01-28] MEDS ORDERED: hydrOXYzine 50 MG TAB PO PRN (21:45)
[2017-01-28] MEDS ORDERED: DEXTROSE 50% 50 ML SYRINGE IV PRN (21:45)
[2017-01-28] MEDS ORDERED: GLUCAGON FOR INJ 1 MG VIAL (J1610) SC PRN (21:45)
[2017-01-28] MEDS ORDERED: GLUCOSE 4 GM CHEW TABLET PO PRN (21:45)
[2017-01-28 22:16] LABS: ABG BASE EXCESS 9.9 (-2.0-2.0); ABG HCO3 35.6 MEQ/L (22.0-26.0); ABG PARTIAL PRESSURE CO2 53.8 mmHg (35.0-45.0); ABG PARTIAL PRESSURE O2 101.1 mmHg (75.0-100.0); ABG STANDARD HCO3 33.6 MEQ/L (22.0-26.0); ABG TOTAL CO2 37.2 MEQ/L (23.0-31.0); ABG pH (ARTERIAL) 7.438 UNITS (7.350-7.450)
--- NOTE | 2017-01-28 23:00 | REPUSA ---
CLINICAL HISTORY: Shortness of breath. TECHNIQUE: Multiple axial, coronal, sagittal CT images were obtained through chest without IV contra st material. COMMENTS: There is no evidence of pleural or parenchymal-based mass. There are no pleural effusions. There is no evidence of hilar or mediastinal lymphadenopathy. The heart is moderately enlarged. Pulmonary v enous congestive changes are present. Scattered upper lobes predominant emphysema is present. Note is made of a 7 mm cavitary lesion at th e left lung base may be related to atypical infection such as fungal. Clinical correlation is recomm ended. Scarring is noted at both lung bases. Scattered ground glass opacities are present mostly involving both upper lobes. This may represent p ulmonary edema versus atypical infection. There is hepatic hypoattenuation compatible with fatty infiltration. There is no intra or extrahepati c biliary ductal dilatation. The spleen is unremarkable. The visualized pancreas is of normal conto ur and attenuation characteristics. There is no evidence of adrenal mass. The visualized portions o f the kidneys present no abnormalities. The bony structures are free of lytic or blastic lesions. Multilevel degenerative changes are seen i nvolving the thoracic spine. Scattered calcifications are seen involving the aorta and visualized esteal or branches compatible with atherosclerosis. IMPRESSION: 1. Moderate cardiomegaly. 2. Pulmonary venous congestion. 3. Scattered upper lobes predominant emphysema. 4. Scattered ground glass opacities mostly involving both upper lobes. This may represent pulmonary edema versus atypical infection. 5. 7 mm cavitary lesion at the left lung base may be related to atypical infection such as fungal ba ll. Clinical correlation is recommended. 6. Fatty liver.
[2017-01-28 23:30] VITALS: BP 119/57
[2017-01-28] MEDS: APIXABAN 5 MG TAB (ELIQUIS) PO SCH (23:43)
[2017-01-28] MEDS: GABAPENTIN 300 MG CAP PO SCH (23:43)
[2017-01-28] MEDS: SERTRALINE HCL 25 MG TABLET PO SCH (23:45)
[2017-01-28] MEDS: ZONISAMIDE 50 MG CAP (ZONEGRAN) PO SCH (23:45)
[2017-01-28] MEDS: LEVEMIR (INSULIN DETEMIR) 1 UNITS/0.01ML SC SCH (23:46)
[2017-01-28] MEDS: methylPREDNISolone INJ 125 MG/2 ML VIAL (J2930) IV SCH (23:46)
[2017-01-29 04:00] VITALS: BP 125/72
--- NOTE | 2017-01-29 06:44 | HPE ---
DATE OF ADMISSION: 01/28/2017 This is a patient of Dr. Pike. CHIEF COMPLAINT: Low blood pressure and shortness of breath. SUMMARY OF PRESENTATION: This is a 66-year-old who was admitted to [facility] on 01/24/2017, and discharged on 01/26/2017, for hypotension. He was doing well, felt well at home, was able to walk without difficulty. Went on to develop low blood pressure at home. The patient's daughter was in close contact with Dr. Nobles, boat repairer, to receive medication orders. They were quite persistent with taking his blood pressure, which ranged from systolic 80 to systolic 100. His Coreg was variously held or reduced. He continued on his digoxin. He was able to (sound skip). Four hours prior to his presentation to the emergency department this evening, though, he became acutely short of breath. He does not describe chest discomfort. He did have cough productive of light-colored sputum without blood. He is weak to the point where it is difficult to sit up. His saturations were in the 70s upon emergency medical services (EMS) arrival. In the emergency department, he continued to be hypoxic, was thought to be fluid overloaded, was given Lasix. Blood pressure which at home was noted to be low, is here noted to be in a more normal range, although he is tachycardic. PAST MEDICAL HISTORY: 1. Notable for chronic obstructive pulmonary disease (COPD) and pulmonary fibrosis, chronic hypoxic respiratory failure requiring 2.5 liters of oxygen at night. 2. Obstructive sleep apnea (LUCA) on continuous positive airway pressure (CPAP). 3. Hypertension. 4. Chronic kidney disease stage III. 5. Type 2 diabetes. 6. Peripheral neuropathy. 7. History of lung cancer. PAST SURGICAL HISTORY: Notable for a right-sided nephrectomy, right-sided renal gland resection, left upper lobe lobectomy, cholecystectomy, tonsillectomy, removal of liposarcoma with partial colectomy. FAMILY HISTORY: (sound skip). ALLERGIES: HEXACHLOROPHENE. HOME MEDICATIONS: - albuterol - DuoNeb - allopurinol - apixaban 5 mg by mouth twice a day - aspirin 81 mg by mouth daily - fiber supplement - Coreg which is currently at 6.25 mg by mouth twice a day, was discharged on 12.5 - vitamin B12 supplement - digoxin 125 mcg daily - ferrous sulfate supplement - gabapentin 600 mg by mouth three times a day - hydroxyzine 50 mg by mouth every 12 hours as needed - Levemir 40 mg subcutaneous twice a day - magnesium oxide supplement - multivitamin supplement - omeprazole 20 mg daily - pravastatin 20 mg daily - Requip 1 mg by mouth daily and 2 mg by mouth at bedtime - sertraline 25 mg by mouth at bedtime - zonisamide 50 mg by mouth twice a day - Breo Ellipta - Spiriva REVIEW OF SYSTEMS: Notable for no headache, no visual changes. No runny nose, no sore throat. Cough productive of light-colored sputum. Not describing chest pain. No abdominal pain. No change in bowel or bladder habits. Did have a bowel movement yesterday. Has been urinating quite a bit. Does not have any significant lower extremity edema at this point. He has had problems with lower extremity edema in the past. Otherwise unremarkable. PHYSICAL EXAMINATION: VITAL SIGNS: Temperature 98.9 although he feels warm to the touch, pulse is 128, respiratory rate was recorded as 32 but is around 24 on my exam. Blood pressure at 151/82, 93% on four liters nasal cannula. GENERAL: He is awake, appropriately interactive though he appears somewhat tired. He is speaking in short sentences. No accessory muscle use. HEENT: Head is normocephalic. Sinuses nontender. Mucous membranes moist. NECK: Supple, thick. I am unable to assess jugular venous pulse (JVP). LUNGS: Breathing is symmetrical. Coarse airway sounds throughout. No wheezes. HEART: Tachycardic. Radial pulses 2+. Capillary refill is less than two seconds. ABDOMEN: Distended, tympanic, nontender. EXTREMITIES: There is trace posterior bilateral lower extremity edema which is, again, apparently less than his baseline level of edema according to family. PSYCHIATRIC: He has normal mood and affect. LABORATORY DATA: White cell count 5.7, hemoglobin 10.8, and platelets of 80. This is likely his normal platelet range based on his last discharge, although it is noted to be less than it was earlier this year. Sodium 139, potassium 4.0, chloride 101, carbon dioxide 32, BUN 13, creatinine 1.07, glucose 147. INR is 1.14. Blood gas is 7.37, 50, 54, 28. Digoxin level is 0.9. MICROBIOLOGY: Blood cultures are pending. Respiratory panel is ordered. IMAGING: Chest x-ray was done, and does not show any acute changes. CT scan of the chest is ordered. EKG shows sinus tachycardia, nonspecific ST-T wave changes. ASSESSMENT: This is a 66-year-old with acute hypoxic respiratory failure in the setting of chronic hypoxic respiratory failure. The patient will require a two-midnight hospital stay and will be admitted to Dr. Montez's service. PLAN: 1. Respiratory: The patient has acute on chronic hypoxic respiratory failure. Will be admitted to the progressive care unit (PCU). Does not appear to be retaining carbon dioxide (CO2) in an acute fashion. Will be given steroids and nebulizers. We will check a respiratory panel. There does not seem to be a role for antibiotics at this time, but should the patient became febrile or condition changes, would give antibiotics. 2. Cardiovascular: The patient has history of hypertension, left ventricular hypertrophy with localized septal wall motion abnormality, and thought to have right-sided pressure overload. Was given Lasix in the emergency department. Will wait for a CT scan of the chest to decide whether or not to give further Lasix or to pursue antibiotic therapy. 3. The patient has obstructive sleep apnea. Continue his home CPAP. 4. The patient has chronic kidney disease stage III, and is likely at his baseline or better level of function, which would suggest that he has possibility of some amount of fluid overload. 5. The patient has type 2 diabetes. Will be on insulin during his stay. 6. The patient has peripheral neuropathy from diabetes. 7. The patient has a history of lung cancer. 8. The patient is noted to have decreased platelet count. Will check heparin antibodies and will give mechanical prophylaxis for deep venous thrombosis (DVT), along with his standing dose of Eliquis. 9. Dr. Nobles has been consulted and will see the patient tomorrow.
[2017-01-29] MEDS: IPRATROPIUM 0.5MG/ALBUTEROL 2.5MG INH SOL UD 3ML (DUONEB)(J7620) NEB SCH ×4 (07:24→20:00)
[2017-01-29 08:00] VITALS: BP 109/65
[2017-01-29] MEDS: HumaLOG INSULIN (NovoLOG) PER UNIT SC SCH ×4 (08:06→20:46)
[2017-01-29 08:36] LABS: MEAN CORPUSCULAR HEMOGLOBIN 31.4 pg (27.0-33.0); MEAN CORPUSCULAR HGB CONC 32.3 g/dl (32.0-36.5); MEAN CORPUSCULAR VOLUME 97.2 fl (80.0-96.0); REASON FOR REVIEW PLATELET MORPHOLOGY; RED CELL DISTRIBUTION WIDTH 15.2 % (11.5-14.5)
[2017-01-29 08:39] LABS: PLATELET COUNT, AUTOMATED 80 10^3/uL (150-450)
[2017-01-29] MEDS: TIOTROPIUM INHALER/CAPSULE (SPIRIVA) INH SCH (09:00)
[2017-01-29] MEDS: ADVAIR HFA 230/21MCG INHALER INH SCH ×2 (09:00→20:09)
[2017-01-29] MEDS ORDERED: MAGNESIUM OXIDE 400 MG TAB (MAG-OX) PO SCH (09:00)
[2017-01-29 09:13] LABS: CALCIUM LEVEL 7.9 MG/DL (8.8-10.2); CREATININE FOR GFR 1.46 MG/DL (0.70-1.30); GLOMERULAR FILTRATION RATE 51.7 (>49); MAGNESIUM LEVEL 1.5 MG/DL (1.8-2.4); POTASSIUM SERUM 4.5 MEQ/L (3.5-5.1)
[2017-01-29] MEDS: MULTIVITAMINS/MINERALS THERAP 1 TAB PO SCH (09:23)
[2017-01-29] MEDS: GABAPENTIN 300 MG CAP PO SCH ×3 (09:24→20:47)
[2017-01-29] MEDS: OMEPRAZOLE 20 MG CAP PO SCH (09:24)
[2017-01-29] MEDS: rOPINIRole 1MG TAB PO SCH ×2 (09:24→20:47)
[2017-01-29] MEDS: APIXABAN 5 MG TAB (ELIQUIS) PO SCH ×2 (09:24→20:47)
[2017-01-29] MEDS: ZONISAMIDE 50 MG CAP (ZONEGRAN) PO SCH ×2 (09:24→20:47)
[2017-01-29] MEDS: PRAVASTATIN 20 MG TAB PO SCH (09:24)
[2017-01-29] MEDS: ASPIRIN 81 MG ENTERIC TAB PO SCH (09:24)
[2017-01-29] MEDS: DIGOXIN 0.125 MG TAB PO SCH (09:24)
[2017-01-29] MEDS: ALLOPURINOL 300 MG TAB PO SCH (09:24)
[2017-01-29] MEDS: LEVEMIR (INSULIN DETEMIR) 1 UNITS/0.01ML SC SCH ×2 (09:25→20:46)
--- NOTE | 2017-01-29 09:51 | CR ---
DATE OF CONSULTATION: 01/29/2017 REFERRING PHYSICIAN: Dr. Duarte INDICATION: Dyspnea. HISTORY OF PRESENT ILLNESS: Mr. Winchester is previously unknown to me. He is a 66-year-old man who has very complicated past medical history. He does carry a history of paroxysmal atrial fibrillation that was apparently diagnosed relatively recently and he has been maintained on anticoagulation and digoxin. I got several phone calls from his daughter over the last 2 days complaining about his heart rate being sometimes fast and sometimes normal and also running relatively low blood pressure. He was discharged from this facility just 4 days ago on Coreg 25 mg twice a day and digoxin, but because his blood pressure was in 80s and 90s, I instructed her to hold carvedilol. He was doing better with blood pressure actually improving but then apparently yesterday afternoon, he suddenly developed respiratory distress. There was associated sensation of sharp chest discomfort localized to lower aspects of both right and left-sided ribs that he believes was present on and off throughout the day yesterday. The bouts of pain lasted around 5-10 minutes. He denies any aggravation by activity or position, but obviously he did not do much yesterday. After the EMT arrived to his house, his blood pressure was in normal range, but he was very hypoxic. Apparently saturation in 70s. On arrival to the ER, he improved fairly rapidly with administration of oxygen. Even though it was believed by the family that he was in atrial fibrillation, actually he was found to be in sinus rhythm with rapid ventricular rate. He received single dose of furosemide which is unclear whether there was a good diuretic response as it has not been well documented in the emergency room. Throughout the night, he was intermittently hypoxic and apparently his BiPAP was not functioning appropriately due to leak so ultimately he was maintained only on oxygen. This morning, the patient tells me that he is feeling better. She is still very short of breath even with minimal activity. He denies any chest discomfort since yesterday. He denies any palpitations. His past medical history is negative for any prior history of coronary artery disease. He never had any formal testing. He does have advanced chronic obstructive pulmonary disease (COPD), the family tells me that is believed to be approaching terminal phases but I do not any formal pulmonary function tests. His echocardiogram was performed recently and revealed preserved left ventricular systolic function with subtle septal wall motion abnormality and no significant valvular disease and at least mild pulmonary hypertension. PAST MEDICAL HISTORY: 1. History of lung cancer. He completed a bout of radiation therapy preceded by left upper lobe resection in March 2016. 2. Chronic COPD and pulmonary fibrosis with chronic hypoxic respiratory failure. 3. History of obstructive sleep apnea (LUCA). 4. Hypertension. 5. 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 Type 2 diabetes. 7. Peripheral neuropathy. SURGICAL HISTORY: Positive for: 1. Right nephrectomy. 2. Left upper lobe lobectomy. 3. Cholecystectomy. 4. Tonsillectomy. 5. Partial colectomy. FAMILY HISTORY: No longer relevant. He reports allergies to HEXACHLOROPHENE. HOME MEDICATIONS: - albuterol DuoNeb - allopurinol - apixaban five twice a day - aspirin 81 a day - Coreg 12.5 twice a day - vitamin B12 - digoxin 125 mcg a day - iron sulfate - gabapentin - hydroxyzine - insulin - magnesium - multivitamin - omeprazole - pravastatin 20 a day - Requip - sertraline 25 - zonisamide 50 twice a day - Breo Ellipta - Spiriva REVIEW OF SYSTEMS: He denies any sick contacts even though he was in hospital very recently. No fever, no chills. No cough or productive cough. No abdominal pain. No nausea, vomiting, no bleeding and no peripheral edema. He actually lost 2 pounds since discharge. PHYSICAL EXAMINATION: Reveals morbidly obese man who appears older than his calendar age. Does not appear to be in acute distress. He is able to speak in full sentences with 5 liters of oxygen by nasal cannula. Blood pressure 125/72, heart rate has been from low 100s to 120s in sinus rhythm with occasional ectopy. His T-max is 100.6. Saturation is 91-95% on 5 liters of oxygen. His fluid balance has not been well documented yesterday for about 400 mL of urine today. His weight is 144.7 kg. I do not appreciate JVP elevation even though it is difficult to estimate with his body habitus. There are bilateral loud rhonchi and crackles throughout lung goldstein. Air movement seems to be decent. Heart exam is very muffled behind his loud respiratory sounds but I do not appreciate any laxmi gallop, rub or murmur. Abdomen is morbidly obese but soft. I do not appreciate hepatosplenomegaly. He has Smith catheter. There is no peripheral edema. His peripheral pulses are palpable. LABORATORY DATA: CBC hemoglobin 10.9, hematocrit 33 and platelet count only 80,000. WBC count is 5.7 with differential 76 neutrophils and 4 bands and 16 lymphocytes. Basic metabolic panel: Potassium 4.0, BUN 13, creatinine 1.0, glucose 147, normal liver function tests. CK, CK-MB are negative. His troponin has been marginally elevated 0.11 and 0.18, albumin is 3.0. Digoxin level is 0.9. The chest x-ray and CT of the chest revealed cardiomegaly. There are changes consistent with lobectomy and emphysema and ground glass opacities in upper lobes supposedly suggestive of congestive heart failure (CHF), even though that will be somewhat unusual localization. ECG reveals presence of sinus rhythm with rapid ventricular response. There are frequent PACs and subtle nonspecific repolarization abnormalities. ASSESSMENT/PLAN: Mr. Winchester is a 66-year-old morbidly obese man who has multitude of medical problems that include advanced chronic obstructive pulmonary disease, history of lung cancer status post relatively recent lobectomy and radiation therapy, sleep apnea with CPAP and paroxysmal atrial fibrillation. I have to say that I am not certain what caused his dyspnea. Considering its sudden onset, it is conceivable that he might have an ischemic event even though the nature of his chest discomfort is very atypical for angina. He has minimal troponin elevation and I will obtain followup electrocardiogram. He is already anticoagulated on aspirin. His platelet count is relatively low and consequently I am reluctant to give him dual antiplatelet medications. He is already also on statin. I do not think that in his setting, I want to introduce high doses of beta blockers, but small doses of beta blockers might be reasonably well tolerated. The second issue is dyspnea. I have to admit that I am not certain what is the nature. My first impression is that it is not related to congestive heart failure and is principally pulmonary but I admit that I can be wrong. With his body habitus and concomitant lung disease, it is very difficult to estimate. I am going to get NT - pro - BNP and if elevated will give him a test dose of diuretics. He is at his baseline edematous and the absence of edema is arguing against volume overloaded state. I also consider pulmonary embolism as very unlikely diagnosis considering his chronic anticoagulation. I will continue following the patient with you. He is certainly very complicated and has very poor functional status at his baseline, so I am afraid that his situation will remain tenuous for quite some time. MARID
[2017-01-29 12:00] VITALS: BP 140/84
--- NOTE | 2017-01-29 14:33 | IPNPDOC ---
Text Note Date of Service The patient was seen on 01/29/17. NOTE Subjective: Patient is a 66 year old male with a PMHx of COPD (on 3L O2), LUCA on CPAP, HTN, DM2, CKD3 (s/p Nephrectomy), Obesity, Gout, Neuropathy, Stage 1A Left upper lobe lung CA s/p lobectomy, and Stage 1A Lung CA of RLL s/p radiation. Patient presented to the ER because he was hypotensive at home. They had contacted theri auto mechanic apprentice and were provided with instructions that helped improve his blood pressure. However patient later began to experience some shortness of breath and he presented to the ER. Patient was admitted for dyspnea, possibly multifactorial in etiology. Patient was seen and examined at the bedside. He notes that his breathing is a little labored. He notes a cough. Denies any chest pain or palpitations at this time. Objective: Vitals (See below) General: Lying in bed, no acute distress, comfortable, AAOx3 HEENT: NC, AT CVS: IrIr, +S1S2 Lungs: Coarse lung sounds bilaterally, wheezing bilaterally on expiration Abdomen: Soft, ND, NT, morbidly obese Extremities: no appreciable pitting edema, - Calf tenderness Assessment and plan: Dyspnea - possibly 2/2 acute COPD exacerbation - likely 2/2 Coronavirus - Presented with SOB and mild productive cough - Physical with diffuse course lung sounds - No leukocytosis - Respiratory panel: Coronavirus; Sputum Cx 01/28: Pending - Blood cultures 01/28: Pending - Chest CT 01/28: moderate cardiomegaly, pulmonary venous congestion, emphysema , pulmonary edema vs. atypical infection, 7 mm cavitary lesion at L lung base - fungal ball?, fatty liver - c/w Advair, Spiriva, DuoNeb PRN - c/w Solumedrol 60 q12h Diastolic CHF - Does not appear to clinically being in volume overload - BNP is elevated - ECHO 11/2016: Preserved EF: Impaired diastolic function - s/p Furosemide 80mg IV in ER - Will continue to follow strict Ins/Outs, daily weights - Dr. Nobles (Cardiology) following; appreciate their input Troponin elevation - possibly 2/2 demand ischemia - Denies any chest pain or palpitations at this time - Troponin trend has gone down Atrial fibrillation - c/w rate / rhythm control with digoxin; s/p Carvedilol - c/w anticoagulation with Eliquis Macrocytic anemia Neuropathy - c/w Gabapentin LUCA on CPAP - allow home CPAP use; s/p BiPAP Gout - c/w Allopurinol HTN - Recent history of hypotension - Blood pressure remains well-controlled throughout today - BP meds on hold CKD3 - Creatinine baseline of 1.5 to 1.7 - Creatinine was lower than baseline on admission; has had slight elevation over 24 hours RLS - c/w Ropinirole DLP - c/w Pravastatin DM2 - c/w ISS and Levemir 20 BID Depression - c/w Sertraline Hx of Lung CA - Stage 1A NIKKI s/p lobectomy - Stage 1A RLL s/p radiation - c/w outpatient follow up History of adrenal insufficiency - Stress dose steroid before procedure or when he is critically ill GERD - c/w Omeprazole DVT prophylaxis - on full anticoagulation with Eliquis VS,Fishbone, I+O VS, Fishbone, I+O Laboratory Tests 01/28/17 18:30 Red Blood Count 3.37 L, Mean Corpuscular Volume 99.4 H, Mean Corpuscular Hemoglobin 32.0, Mean Corpuscular Hemoglobin Concent 32.2, Red Cell Distribution Width 14.9 H 01/29/17 08:28 Red Blood Count 3.25 L, Mean Corpuscular Volume 97.2 H, Mean Corpuscular Hemoglobin 31.4, Mean Corpuscular Hemoglobin Concent 32.3, Red Cell Distribution Width 15.2 H, Calcium Level 7.9 L, Total Creatine Kinase 29 L Vital Signs Date Time Temp Pulse Resp B/P (MAP) Pulse Ox O2 Delivery O2 Flow Rate FiO2 01/29/17 12:37 89 NIPPV (BIPAP/CPAP) 4.0 01/29/17 12:00 98.0 96 22 140/84 (102) 01/28/17 22:30 91 I&O- Last 24 Hours up to 6 AM 01/29/17 06:00 Intake Total 120 ml Output Total 375 ml Balance -255 ml ADALID RAMIREZ MD Jan 29, 2017 14:33
[2017-01-29] MEDS ORDERED: FUROSEMIDE 100 MG/10 ML VIAL (J1940) IV ONE (15:00)
[2017-01-29 16:00] VITALS: BP 133/79
[2017-01-29] MEDS: methylPREDNISolone INJ 125 MG/2 ML VIAL (J2930) IV SCH ×2 (16:11→22:24)
[2017-01-29] MEDS ORDERED: SODIUM CHLORIDE 0.9% INJ 10 ML SYR IV PRN (17:00)
[2017-01-29] MEDS: SODIUM CHLORIDE 0.9% INJ 10 ML SYR IV SCH (17:30)
[2017-01-29 20:00] VITALS: BP 151/86
--- NOTE | 2017-01-29 20:33 | REP ---
Procedure: PICC line insertion with Elise-Mariel The procedure was performed under the direct supervision of Dr. Weinstein. The risks and benefits of the procedure were explained to the patient and informed consent was obtained. The left basilic vein was localized using ultrasound guidance. The skin was prepped and draped in a sterile fashion. 2% lidocaine was used as a local anesthetic. Using ultrasound guidance the basilic vein was cannulated and a 0.018 guidewire was inserted and advanced to the SVC using fluoroscopic guidance. The needle was removed and a 4.5 [place]an dilator and peel-away sheath was inserted over the guide wire. A 4.5 [place] dual lumen catheter was cut to length of 51 cm. The dilator was removed and the catheter was inserted over the guide wire with the tip ending in the SVC. The peel-away sheath was removed and the catheter was flushed with heparinized saline as per Hospital protocol. The catheter was affixed to the skin and a sterile dressing was applied. The the patient tolerated the procedure well and there were no immediate complications. 0.6 minutes of fluoro time was utilized for this procedure. Reviewed by PAULINE Hyatt 01/29/2017 05:26 PSigned by Jorden Weinstein MD 01/29/2017 08:22 P
[2017-01-29] MEDS: SERTRALINE HCL 25 MG TABLET PO SCH (20:47)
[2017-01-29 23:59] VITALS: BP 141/75
[2017-01-30 04:00] VITALS: BP 132/73
[2017-01-30] MEDS: SODIUM CHLORIDE 0.9% INJ 10 ML SYR IV SCH ×2 (05:04→17:26)
[2017-01-30 05:11] LABS: MEAN CORPUSCULAR HEMOGLOBIN 32.2 pg (27.0-33.0); MEAN CORPUSCULAR HGB CONC 33.2 g/dl (32.0-36.5); MEAN CORPUSCULAR VOLUME 96.8 fl (80.0-96.0); RED CELL DISTRIBUTION WIDTH 14.9 % (11.5-14.5); WHITE BLOOD COUNT 5.6 10^3/uL (4.0-10.0)
[2017-01-30 05:15] LABS: PLATELET COUNT, AUTOMATED 89 10^3/uL (150-450)
[2017-01-30 05:16] LABS: IMMATURE PLATELET FRACTION % 5.3 % (0.0-10.9)
[2017-01-30 05:38] LABS: CALCIUM LEVEL 7.8 MG/DL (8.8-10.2); CREATININE FOR GFR 1.3 MG/DL (0.70-1.30); GLOMERULAR FILTRATION RATE 59.2 (>49); MAGNESIUM LEVEL 1.7 MG/DL (1.8-2.4); POTASSIUM SERUM 4.3 MEQ/L (3.5-5.1)
[2017-01-30] MEDS ORDERED: MAG SULF 1GM/100ML (MAG RUN) 1 GM in APPROPRIATE DILUENT 1 EA IV ONE (07:30)
[2017-01-30] MEDS: TIOTROPIUM INHALER/CAPSULE (SPIRIVA) INH SCH (07:44)
[2017-01-30] MEDS: ADVAIR HFA 230/21MCG INHALER INH SCH ×2 (07:45→21:03)
[2017-01-30] MEDS: IPRATROPIUM 0.5MG/ALBUTEROL 2.5MG INH SOL UD 3ML (DUONEB)(J7620) NEB SCH ×4 (07:45→20:00)
[2017-01-30 08:00] VITALS: BP 135/82
[2017-01-30] MEDS ORDERED: FUROSEMIDE 100 MG/10 ML VIAL (J1940) IV ONE (08:30)
--- NOTE | 2017-01-30 08:47 | IPN ---
DATE: 01/30/2017 Mr. Winchester tells me that he is feeling much better. He was able to sleep with his BiPap without major issues. He very much would like to go home for [place]. Denies any recurrence of chest pain. Vital signs: 135/82, heart rate has been from 70s to 90s. It is sinus rhythm with frequent atrial ectopy. He is afebrile. Saturation 94% on status of 3 liters of oxygen by nasal cannula. His fluid balance yesterday was about 300 mL negative. Weight is documented 146.5, which is actually up from yesterday but the accuracy I do not believe is reliable. JVP is very difficult to estimate with his body habitus but grossly does not appear increased. The lungs reveal large volume rhonchi throughout both lung goldstein but mostly over lower lobes. Heart exam reveals very muffled heart sounds, but I do not appreciate any gallop, rub or murmur. Abdomen is morbidly obese but soft. There is no peripheral edema. Neurologically, he is intact. LABORATORY Potassium 4.3, BUN 27, creatinine 1.3, glucose 305, magnesium 1.7. The third troponin yesterday morning was only 0.07 and his N-terminal pro-BNP was 1566. ASSESSMENT/PLAN Mr. Winchester is a 66-year-old man who has multitude of medical problems, including very advanced chronic obstructive pulmonary disease (COPD), history of lung cancer with status post left upper lobectomy and radiation therapy earlier this year. He also has severe sleep apnea and has been on BiPap for a long time, together with morbid obesity. He presented with worsening dyspnea of relatively sudden onset associated with atypical chest discomfort. There was minimal troponin elevation but no convincing ischemic abnormalities on EKG. At this point, I still am uncertain whether the underlying mechanism of his dyspnea has a component of congestive heart failure, but the fact that the onset of symptoms was relatively rapid together with elevated N-terminal pro-BNP and the fact that it seems to have responded favorably to administration of Lasix (but also oxygen, noninvasive ventilatory support and steroids), I am convinced that there is a component of congestive heart failure in this presentation. I am going to give him 80 mg of furosemide today again. We will continue to watch his response. I talked to him about sodium restrictions, daily weight measurements and observation for presence or absence of peripheral edema and abdominal bloating. He really wants to go home for [place], and I am hoping that he will be able to be discharged home within a day or two.
[2017-01-30] MEDS: methylPREDNISolone INJ 125 MG/2 ML VIAL (J2930) IV SCH ×2 (08:59→22:01)
[2017-01-30] MEDS: ALLOPURINOL 300 MG TAB PO SCH (08:59)
[2017-01-30] MEDS: OMEPRAZOLE 20 MG CAP PO SCH (09:00)
[2017-01-30] MEDS: MAGNESIUM OXIDE 400 MG TAB (MAG-OX) PO SCH ×2 (09:00→20:20)
[2017-01-30] MEDS: GABAPENTIN 300 MG CAP PO SCH ×3 (09:00→20:20)
[2017-01-30] MEDS: APIXABAN 5 MG TAB (ELIQUIS) PO SCH ×2 (09:00→20:20)
[2017-01-30] MEDS: ASPIRIN 81 MG ENTERIC TAB PO SCH (09:00)
[2017-01-30] MEDS: HumaLOG INSULIN (NovoLOG) PER UNIT SC SCH ×4 (09:01→20:27)
[2017-01-30] MEDS: DIGOXIN 0.125 MG TAB PO SCH (09:01)
[2017-01-30] MEDS: MULTIVITAMINS/MINERALS THERAP 1 TAB PO SCH (09:01)
[2017-01-30] MEDS: LEVEMIR (INSULIN DETEMIR) 1 UNITS/0.01ML SC SCH ×2 (09:02→20:20)
[2017-01-30] MEDS: ZONISAMIDE 50 MG CAP (ZONEGRAN) PO SCH ×2 (09:18→20:20)
[2017-01-30] MEDS: PRAVASTATIN 20 MG TAB PO SCH (09:18)
[2017-01-30] MEDS: rOPINIRole 1MG TAB PO SCH ×2 (09:18→20:20)
--- NOTE | 2017-01-30 11:14 | IPNPDOC ---
Text Note Date of Service The patient was seen on 01/30/17. NOTE Subjective: Patient is a 66 year old male with a PMHx of COPD (on 3L O2), LUCA on CPAP, HTN, DM2, CKD3 (s/p Nephrectomy), Obesity, Gout, Neuropathy, Stage 1A Left upper lobe lung CA s/p lobectomy, and Stage 1A Lung CA of RLL s/p radiation. Patient presented to the ER because he was hypotensive at home. They had contacted theri grazing examiner and were provided with instructions that helped improve his blood pressure. However patient later began to experience some shortness of breath and he presented to the ER. Patient was admitted for dyspnea, possibly multifactorial in etiology. Patient was seen and examined at the bedside. He notes that he has very little cough. His breathing is doing better. His oxygenation requirement has improved. He denies any chest pain or palpitations. No events overnight. Objective: Vitals (See below) General: Lying in bed, no acute distress, comfortable, AAOx3 HEENT: NC, AT CVS: IrIr, +S1S2 Lungs: Coarse lung sounds bilaterally, rhonchi bilaterally, mild wheezing bilaterally Abdomen: Soft, ND, NT, morbidly obese Extremities: no appreciable pitting edema, - Calf tenderness Assessment and plan: Dyspnea - possibly 2/2 acute COPD exacerbation - likely 2/2 Coronavirus; possibly component of diastolic CHF exacerbation - Presented with SOB and mild productive cough - Physical with diffuse course lung sounds - No leukocytosis - Respiratory panel: Coronavirus; Sputum Cx 01/28: Pending - Blood cultures 01/28: negative at 24 hours - Chest CT 01/28: moderate cardiomegaly, pulmonary venous congestion, emphysema , pulmonary edema vs. atypical infection, 7 mm cavitary lesion at L lung base - fungal ball?, fatty liver - c/w Advair, Spiriva, DuoNeb PRN - Will reduce dose of Solumedrol to 30 q12h Diastolic CHF; possibly with exacerbation - Does not appear to clinically being in volume overload - BNP is elevated - ECHO 11/2016: Preserved EF: Impaired diastolic function - s/p Furosemide 80mg IV in ER - Additional dose of Furosemide 80 will be given this morning - c/w strict Ins/Outs, daily weights; has been -1300 CC - Dr. Nobles (Cardiology) following; appreciate their input Troponin elevation - possibly 2/2 demand ischemia - Denies any chest pain or palpitations at this time - Troponin trend has gone down Atrial fibrillation - c/w rate / rhythm control with digoxin; s/p Carvedilol - c/w anticoagulation with Eliquis Macrocytic anemia - Mild decrease in Hg - Will continue to monitor Neuropathy - c/w Gabapentin LUCA on CPAP - allow home CPAP use; s/p BiPAP Gout - c/w Allopurinol HTN - Recent history of hypotension - Blood pressure remains normotensive / periods of hypertension yesterday - BP meds on hold CKD3 - Creatinine baseline of 1.5 to 1.7 RLS - c/w Ropinirole DLP - c/w Pravastatin DM2 - c/w ISS and Levemir 20 BID Depression - c/w Sertraline Hx of Lung CA - Stage 1A NIKKI s/p lobectomy - Stage 1A RLL s/p radiation - c/w outpatient follow up History of adrenal insufficiency - Stress dose steroid before procedure or when he is critically ill GERD - c/w Omeprazole DVT prophylaxis - on full anticoagulation with Eliquis VS,Fishbone, I+O VS, Fishbone, I+O Laboratory Tests 01/30/17 05:04 Red Blood Count 2.83 L, Mean Corpuscular Volume 96.8 H, Mean Corpuscular Hemoglobin 32.2, Mean Corpuscular Hemoglobin Concent 33.2, Red Cell Distribution Width 14.9 H, Calcium Level 7.8 L Vital Signs Date Time Temp Pulse Resp B/P (MAP) Pulse Ox O2 Delivery O2 Flow Rate FiO2 01/30/17 09:01 80 01/30/17 08:04 Nasal Cannula 2.0 01/30/17 08:00 97.6 20 135/82 (99) 94 01/28/17 22:30 91 I&O- Last 24 Hours up to 6 AM 01/30/17 06:00 Intake Total 1440 ml Output Total 2200 ml Balance -760 ml ADALID RAMIREZ MD Jan 30, 2017 11:01
[2017-01-30 12:00] VITALS: BP 128/70
[2017-01-30 16:00] VITALS: BP 136/71
[2017-01-30] MEDS ORDERED: METOPROLOL 5 MG/5 ML VIAL IV STA (16:17)
[2017-01-30] MEDS ORDERED: CARVedilol 3.125 MG TAB PO ONE (16:30)
[2017-01-30] MEDS ORDERED: METOPROLOL TART 50 MG TAB PO ONE (16:45)
[2017-01-30 17:03] VITALS: BP 141/76
[2017-01-30 19:56] VITALS: BP 125/68
[2017-01-30] MEDS: SERTRALINE HCL 25 MG TABLET PO SCH (20:20)
[2017-01-30] MEDS: guaiFENesin ER 600 MG TAB PO SCH (20:20)
[2017-01-31 00:09] VITALS: BP 135/69
--- NOTE | 2017-01-31 01:13 | ECGEPIP ---
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
[2017-01-31 04:20] VITALS: BP 118/68
[2017-01-31] MEDS: SODIUM CHLORIDE 0.9% INJ 10 ML SYR IV SCH (05:03)
[2017-01-31 05:14] LABS: MEAN CORPUSCULAR HEMOGLOBIN 31.6 pg (27.0-33.0); MEAN CORPUSCULAR HGB CONC 31.9 g/dl (32.0-36.5); MEAN CORPUSCULAR VOLUME 98.9 fl (80.0-96.0); PLATELET COUNT, AUTOMATED 105 10^3/uL (150-450); RED CELL DISTRIBUTION WIDTH 15.9 % (11.5-14.5); WHITE BLOOD COUNT 5.7 10^3/uL (4.0-10.0)
[2017-01-31 05:36] LABS: ANION GAP 6 MEQ/L (8-16); BLOOD UREA NITROGEN 33 MG/DL (7-18); CALCIUM LEVEL 7.8 MG/DL (8.8-10.2); CARBON DIOXIDE LEVEL 35 MEQ/L (21-32); CHLORIDE LEVEL 99 MEQ/L (98-107); CREATININE FOR GFR 1.25 MG/DL (0.70-1.30); GLOMERULAR FILTRATION RATE > 60.0 (>49); GLUCOSE, FASTING 335 MG/DL (80-110); MAGNESIUM LEVEL 1.8 MG/DL (1.8-2.4); POTASSIUM SERUM 4.1 MEQ/L (3.5-5.1); SODIUM LEVEL 140 MEQ/L (136-145)
[2017-01-31] MEDS: ADVAIR HFA 230/21MCG INHALER INH SCH (07:53)
[2017-01-31] MEDS: TIOTROPIUM INHALER/CAPSULE (SPIRIVA) INH SCH (07:54)
[2017-01-31 08:00] VITALS: BP 161/89
[2017-01-31] MEDS: IPRATROPIUM 0.5MG/ALBUTEROL 2.5MG INH SOL UD 3ML (DUONEB)(J7620) NEB SCH ×3 (08:00→15:50)
[2017-01-31] MEDS: HumaLOG INSULIN (NovoLOG) PER UNIT SC SCH ×2 (08:09→11:54)
[2017-01-31] MEDS: LEVEMIR (INSULIN DETEMIR) 1 UNITS/0.01ML SC SCH (08:10)
[2017-01-31] MEDS: GABAPENTIN 300 MG CAP PO SCH ×2 (08:10→15:22)
[2017-01-31] MEDS: MAGNESIUM OXIDE 400 MG TAB (MAG-OX) PO SCH (08:10)
[2017-01-31] MEDS: rOPINIRole 1MG TAB PO SCH (08:10)
[2017-01-31] MEDS: PRAVASTATIN 20 MG TAB PO SCH (08:11)
[2017-01-31] MEDS: ALLOPURINOL 300 MG TAB PO SCH (08:11)
[2017-01-31] MEDS: APIXABAN 5 MG TAB (ELIQUIS) PO SCH (08:11)
[2017-01-31] MEDS: ZONISAMIDE 50 MG CAP (ZONEGRAN) PO SCH (08:11)
[2017-01-31] MEDS: guaiFENesin ER 600 MG TAB PO SCH (08:11)
[2017-01-31] MEDS: ASPIRIN 81 MG ENTERIC TAB PO SCH (08:11)
[2017-01-31] MEDS: MULTIVITAMINS/MINERALS THERAP 1 TAB PO SCH (08:11)
[2017-01-31] MEDS: DIGOXIN 0.125 MG TAB PO SCH (08:11)
[2017-01-31] MEDS: OMEPRAZOLE 20 MG CAP PO SCH (08:11)
[2017-01-31] MEDS ORDERED: predniSONE 20 MG TAB PO SCH (09:00)
[2017-01-31] MEDS ORDERED: PRED10TA2 PO (10:58)
[2017-01-31] MEDS ORDERED: AMIODARONE HCL 150 MG in APPROPRIATE DILUENT 1 EA IV ONE (11:30)
[2017-01-31] MEDS ORDERED: METOPROLOL TART 25 MG TABLET PO SCH (11:30)
--- NOTE | 2017-01-31 11:37 | IPN ---
DATE: 01/31/2017 Mr. Winchester tells me that he is feeling better. He feels that his dyspnea is close to his baseline. He denies any recurrence of chest pain. He started going in and out of atrial fibrillation yesterday afternoon. He was intermittently quite tachycardiac but after he received 50 mg of by mouth metoprolol yesterday afternoon his heart rate has been mostly controlled. This morning during my interview he is atrial fibrillation with ventricular rate approximately 110 beats per minute while sitting. He denies any recurrence of chest discomfort. Vital signs: Blood pressure 161/87, heart rate has been as above. He is afebrile. Saturation is 94% on room air. His fluid balance yesterday was documented at 300 negative but the weight this morning is 122.1 kg which would indicate over 24 kg weight loss since yesterday which is obviously erroneous. He is alert and oriented and appropriate. His jugular venous pulse (JVP) is difficult to assess again, but does not appear grossly elevated. Lungs still reveal bilateral large rhonchi but I do not appreciate any wheezing or obvious crackles. The air movement seems to be fair. Heart exam irregularly irregular rhythm muffled heart sound. No murmur. Abdomen morbidly obese but soft and no peripheral edema. Neurologically he is intact. No skin lesions. LABORATORY: Hemoglobin 8.4, hematocrit 26 and platelet count 105,000. Basic metabolic panel - potassium 4.1, BUN 33, creatinine 1.3, glucose 335. His heparin-induced antibodies were negative. ASSESSMENT/PLAN: Mr. Winchester is a 66-year-old man who has advanced chronic obstructive pulmonary artery disease (COPD), he has a history of lung cancer status post left upper lobe lobectomy and radiation treatment earlier this year and known severe sleep apnea on CPAP. He also now presents with worsening dyspnea. There was some associated very atypical chest discomfort and trivial troponin elevation. He has been in and out of atrial fibrillation, even though there does not seem to be any correlation between how he feels and presence or absence of atrial fibrillation. He now actually feels much better even though he is in atrial fibrillation and he did not feel good when he was in sinus rhythm. Consequently I have to conclude that atrial fibrillation is likely a consequence and not the cause of his dyspnea. I am going to give him single dose of amiodarone in an attempt to maintain sinus rhythm and will put him on standing metoprolol 25 mg twice a day. As far as his anemia which is slowly worsening we are waiting for followup CBC at lunch time. He would very much like to go home which I am slightly uncomfortable with but if he can maintain sinus rhythm or at least demonstrate that he has been well rate control I do not have strong objections, he really wants to be home for [place] and considering his overall condition I am not sure how many more years he will have a chance to do so.
[2017-01-31 11:51] VITALS: BP 130/66
--- NOTE | 2017-01-31 12:54 | IPNPDOC ---
Text Note Date of Service The patient was seen on 01/31/17. NOTE Subjective: Patient is a 66 year old male with a PMHx of COPD (on 3L O2), LUCA on CPAP, HTN, DM2, CKD3 (s/p Nephrectomy), Obesity, Gout, Neuropathy, Stage 1A Left upper lobe lung CA s/p lobectomy, and Stage 1A Lung CA of RLL s/p radiation. Patient presented to the ER because he was hypotensive at home. They had contacted theri deck steward and were provided with instructions that helped improve his blood pressure. However patient later began to experience some shortness of breath and he presented to the ER. Patient was admitted for dyspnea, possibly multifactorial in etiology. Patient was seen and examined at the bedside. He is seen completely off supplemental oxygen. He notes that his breathing is doing better. Denies any signifcatn cough. He is still in atrial fibrillation, however his HR is better controlled now. Patient denied any abdominal pain or any dark stools. Objective: Vitals (See below) General: Lying in bed, no acute distress, comfortable, AAOx3 HEENT: NC, AT CVS: IrIr, +S1S2 Lungs: Coarse lung sounds bilaterally, rhonchi bilaterally, mild wheezing bilaterally Abdomen: Soft, ND, NT, morbidly obese Extremities: no appreciable pitting edema, - Calf tenderness Assessment and plan: Dyspnea - possibly 2/2 acute COPD exacerbation - likely 2/2 Coronavirus; possibly component of diastolic CHF exacerbation; unlikely pneumonia - His breathing has improved significantly throughout the hospitalization; he denies any cough currently - Physical with diffuse course lung sounds; however have been improving - No leukocytosis - Respiratory panel: Coronavirus; Sputum Cx 01/28: Enterobacter Cloacae, MRA, Moraxella Catarrhalis - Blood cultures 01/28: negative at 24 hours - Chest CT 01/28: moderate cardiomegaly, pulmonary venous congestion, emphysema , pulmonary edema vs. atypical infection, 7 mm cavitary lesion at L lung base - fungal ball?, fatty liver - c/w Advair, Spiriva, DuoNeb PRN - Will start Prednisone 60 daily; s/p Solumedrol Diastolic CHF; possibly with exacerbation - Does not appear to clinically being in volume overload - BNP is elevated - ECHO 11/2016: Preserved EF: Impaired diastolic function - s/p Furosemide 80mg IV on 01/28 & 01/30 - c/w strict Ins/Outs, daily weights; has been -1300 CC cumulative for hospital stay - Dr. Nobles (Cardiology) following; appreciate their input Troponin elevation - possibly 2/2 demand ischemia - Denies any chest pain or palpitations at this time - Troponin trend has gone down Atrial fibrillation - Episode of uncontrolled a. fib with RVR on 04/02 afternoon - s/p Metoprolol 5mg IV and Metoprolol 50 PO - Started Amiodarone IV this morning - c/w rate / rhythm control with digoxin; Metoprolol 25 PO BID was added - c/w anticoagulation with Eliquis Macrocytic anemia - Mild decrease in Hg this morning - Repeat H&H this afternoon remains stable - Patient was hesitant to receive transfusions; will follow H&H closely - Will repeat H&H at 600PM Neuropathy - c/w Gabapentin LUCA on CPAP - allow home CPAP use; s/p BiPAP Gout - c/w Allopurinol HTN - Recent history of hypotension - Blood pressure remains normotensive / periods of hypertension yesterday - BP meds on hold CKD3 - Creatinine baseline of 1.5 to 1.7 RLS - c/w Ropinirole DLP - c/w Pravastatin DM2 - c/w ISS and Levemir 20 BID Depression - c/w Sertraline Hx of Lung CA - Stage 1A NIKKI s/p lobectomy - Stage 1A RLL s/p radiation - c/w outpatient follow up History of adrenal insufficiency - Stress dose steroid before procedure or when he is critically ill GERD - c/w Omeprazole DVT prophylaxis - on full anticoagulation with Eliquis VS,Fishbone, I+O VS, Fishbone, I+O Laboratory Tests 01/31/17 05:03 Red Blood Count 2.66 L, Mean Corpuscular Volume 98.9 H, Mean Corpuscular Hemoglobin 31.6, Mean Corpuscular Hemoglobin Concent 31.9 L, Red Cell Distribution Width 15.9 H, Calcium Level 7.8 L 01/31/17 12:01 Vital Signs Date Time Temp Pulse Resp B/P (MAP) Pulse Ox O2 Delivery O2 Flow Rate FiO2 01/31/17 11:53 92 130/66 01/31/17 11:51 97.8 18 91 Room Air 01/30/17 19:56 2.0 01/28/17 22:30 91 I&O- Last 24 Hours up to 6 AM 01/31/17 06:00 Intake Total 2422 ml Output Total 2750 ml Balance -328 ml ADALID RAMIREZ MD Jan 31, 2017 12:54
[2017-01-31] MEDS ORDERED: METOPROLOL TART 25 MG TABLET PO ONE (13:15)
[2017-01-31 13:28] VITALS: BP 130/77
[2017-01-31] MEDS ORDERED: FURO40TA2 PO (14:21)
[2017-01-31] MEDS ORDERED: METO50TA7 PO (14:21)
--- NOTE | 2017-01-31 22:01 | DSES ---
DATE OF ADMISSION: 01/28/2017 DATE OF DISCHARGE: PRIMARY CARE PHYSICIAN: Dr. Jorden Whelan REFERRING PHYSICIAN: None. CONSULTING PHYSICIAN: Dr. Nobles CONDITION ON DISCHARGE: Stable. FINAL DIAGNOSIS: Dyspnea secondary to chronic obstructive pulmonary disease exacerbation versus possible diastolic congestive heart failure. PROCEDURES: None. HISTORY OF PRESENT ILLNESS: Patient is a 66-year-old male with a past medical history of chronic obstructive pulmonary disease (COPD), on continuous oxygen at home, obstructive sleep apnea, on continuous positive airway pressure (CPAP), hypertension, diabetes mellitus, type 2, chronic kidney disease (CKD) III, status post nephrectomy, obesity, gout, neuropathy, stage IA left upper lobe lung cancer status post lobectomy and stage IA lung cancer of right lower lobe status post radiation. Patient presented to the emergency room (ER) because he was hypotensive at home. They had contacted their logistic specialist and were provided instructions that helped improve his blood pressure; however, patient later began to experience some shortness of breath and presented to the ER. Patient was admitted for dyspnea of possible multifactorial etiology. HOSPITAL COURSE: 1. Dyspnea possibly to acute COPD exacerbation, likely secondary to Coronavirus thought to be a component of diastolic congestive heart failure (CHF) exacerbation, unlikely pneumonia. His breathing has improved significantly throughout the hospitalization. He denies any cough currently. Physical reveals diffuse coarse lung sounds initially, however, has been improving throughout the hospital course. He does not have any leukocytosis. Respiratory panel is positive for Coronavirus. Sputum culture on January 28 was positive for Enterobacter cloacae, methicillin-resistant Staphylococcus aureus (MRSA), Moraxella catarrhalis; however, patient has had a positive sputum culture since October. Patient's blood cultures on January 28 have been negative since 48 hours. He remains afebrile without leukocytosis. This is unlikely to be pneumonia. Chest CT on January 28 reveals moderate cardiomegaly, pulmonary venous congestion, emphysema, pulmonary edema versus atypical infection. A 7 mm cavitary lesion in the left lung base, consistent with possible fungal ball; however, recommended clinical correlation. Patient has been put on Advair, Spiriva, DuoNeb as needed. Patient had been on Solu-Medrol. Has had significant improvement in his breathing. Has been switched over to prednisone by mouth. He will be continuing this medication as an outpatient on tapering basis. 2. Diastolic CHF, possibly with exacerbation. Does not appear to be involving overload; however, it is difficult to appreciate given the patient's body habitus. Brain natriuretic peptide (BNP) remains elevated. Echocardiogram in November 2016 revealed a preserved ejection fraction, impaired diastolic function , status post furosemide 80 mg intravenous (IV) on January 28 and January. Patient was continued with strict ins and outs, daily weights, and has had negative fluid output of 1300 mL throughout the hospital course. Dr. Nobles from cardiology has been consulted. We appreciate his input. 3. Troponin elevation possibly secondary to demand ischemia. Denies any chest pain or palpitations at this time. EKG does not reveal any ischemic changes. Troponin trend has gone down. 4. Atrial fibrillation. Patient had an episode of uncontrolled atrial fibrillation on January 30 afternoon. He is status post metoprolol 5 mg IV and metoprolol 50 mg by mouth. Patient has had improvement in his heart rate since that point. This morning patient's heart rate was slightly uncontrolled, and he was given a dose of amiodarone IV and metoprolol 25 mg by mouth two times throughout the day. His heart rate has remained well controlled since that point. Upon discharge, patient has been discharged home with digoxin, which he was continuing from home, and has had metoprolol tartrate 50 mg twice a day added to his regimen. Patient will continue with anticoagulation with Eliquis. 5. Microcytic anemia. Mild decrease in hemoglobin this morning. His repeat hemoglobin this afternoon has remained stable. Patient is hesitant to receive transfusions and would instead like to continue with his supplemental medications as an outpatient. 6. Neuropathy. Continue with gabapentin. 7. Obstructive sleep apnea, on continuous positive airway pressure (CPAP). Allow home CPAP use. 8. Gout. Continue with allopurinol. 9. Hypertension. Recent history of hypotension. Blood pressure remains normotensive and periods of hypertension over the last 24 hours. Blood pressure medications are on hold. 10. CKD, stage III. Creatinine baseline at 1.5-1.7. 11. Restless leg syndrome. Continue with ropinirole. 12. Dyslipidemia. Continue with pravastatin. 13. Diabetes mellitus, type 2. Continue insulin sliding scale, Levemir 20 units twice a day. 14. Depression. Continue sertraline. 15. History of lung cancer, stage IA, left upper lobe, status post lobectomy, stage IA, right lower lobe, status post radiation. Continue with outpatient followup. 16. History of adrenal insufficiency. Stress-dose steroids before procedures or when he is critically ill. 17. Gastroesophageal reflux disease (GERD). Continue with omeprazole. 18. Deep vein thrombosis (DVT) prophylaxis, on full anticoagulation with Eliquis. DISCHARGE MEDICATIONS: Patient has been discharged home with the following medication list: - furosemide 40 mg by mouth daily - metoprolol tartrate 50 mg by mouth twice a day - prednisone 10 mg to be taken as directed on a tapering basis - albuterol sulfate two puffs inhaled every 4 hours as needed for shortness of breath - allopurinol 300 mg by mouth daily - apixaban 5 mg by mouth twice a day - aspirin 81 mg by mouth daily - calcium polycarbophil 625 mg by mouth daily - vitamin B12 at 500 mcg by mouth daily - digoxin 125 mcg by mouth daily - ferrous sulfate 325 mg by mouth daily - Breo Ellipta one puff inhaled daily - gabapentin 600 mg by mouth three times a day - hydroxyzine 50 mg by mouth every 12 hours as needed for anxiety - Levemir 40 units subcuticular twice a day - magnesium oxide 400 mg by mouth daily - multivitamin one tablet by mouth daily - omeprazole 20 mg by mouth daily - pravastatin 20 mg by mouth daily - ropinirole 1 mg by mouth daily - ropinirole 2 mg by mouth at bedtime - sertraline 25 mg by mouth at bedtime - Spiriva two puffs inhaled daily - Zonisamide 50 mg by mouth twice a day Stopped medications include carvedilol 12.5 mg by mouth twice a day. DISCHARGE INSTRUCTIONS: Patient has been advised to followup with his cardiologists, Dr. Reid and Dr. Nobles, within the next 7 days. He has been advised to followup with his primary care provider, who is Dr. Whelan, within the next 7 days. He has been advised to remain compliant with treatment plan and medications and return to the ER if he experiences any problems. TIME SPENT ON DISCHARGE: Greater than 35 minutes. MTDD
[2017-02-03] MEDS ORDERED: FURO40TA2 PO (03:15)
[2017-02-03] MEDS ORDERED: PRED10TA2 PO (03:15)
[2017-02-03] MEDS ORDERED: BACITAB PO (03:15)
[2017-02-03] MEDS ORDERED: METO50TA7 PO (03:15)
== END 2017-01-31 15:30 | disposition home or self-care (01) | DRG 291 ==
LOC: M ED 17:01 → EDBD 17:01 → M ED INP 21:46 → M PCU 22:56
PROVIDERS: ADMIT Internal Medicine; ATTEND Internal Medicine
PROC: 02HV33Z Insertion of Infusion Device into Superior Vena Cava, Percutaneous Approach (ICD-10-PCS; principal; 2017-01-29)
DX: I13.0 Hypertensive heart and chronic kidney disease with heart failure and stage 1 through stage 4 chronic kidney disease, or unspecified chronic kidney disease (principal); J96.21 Acute and chronic respiratory failure with hypoxia; I50.33 Acute on chronic diastolic (congestive) heart failure; J44.1 Chronic obstructive pulmonary disease with (acute) exacerbation; E27.40 Unspecified adrenocortical insufficiency; I95.9 Hypotension, unspecified; R91.8 Other nonspecific abnormal finding of lung field; R53.1 Weakness; I48.0 Paroxysmal atrial fibrillation; E11.22 Type 2 diabetes mellitus with diabetic chronic kidney disease; G47.33 Obstructive sleep apnea (adult) (pediatric); M10.9 Gout, unspecified; E66.01 Morbid (severe) obesity due to excess calories; F32.9 Major depressive disorder, single episode, unspecified; D53.9 Nutritional anemia, unspecified; G25.81 Restless legs syndrome; E11.42 Type 2 diabetes mellitus with diabetic polyneuropathy; N18.3 Chronic kidney disease, stage 3 (moderate); Z85.118 Personal history of other malignant neoplasm of bronchus and lung; Z90.2 Acquired absence of lung [part of]; Z92.3 Personal history of irradiation; Z79.899 Other long term (current) drug therapy; Z79.01 Long term (current) use of anticoagulants; Z79.82 Long term (current) use of aspirin; Z79.4 Long term (current) use of insulin; Z88.3 Allergy status to other anti-infective agents; Z90.5 Acquired absence of kidney; Z99.81 Dependence on supplemental oxygen; Z68.39 Body mass index [BMI] 39.0-39.9, adult

== ENCOUNTER 2017-02-02 23:14 | Inpatient (IN) | payer MEDICARE, MEDICAID ==
[2017-02-03] MEDS: FUROSEMIDE 100 MG/10 ML VIAL (J1940) IV (01:00)
[2017-02-03 01:46] LABS: ABG BASE EXCESS 4.1 (-2.0-2.0); ABG HCO3 28.9 MEQ/L (22.0-26.0); ABG O2 SATURATION 95.9 % (95.0-99.0); ABG PARTIAL PRESSURE CO2 44.6 mmHg (35.0-45.0); ABG PARTIAL PRESSURE O2 82.1 mmHg (75.0-100.0); ABG STANDARD HCO3 28.1 MEQ/L (22.0-26.0); ABG TOTAL CO2 30.3 MEQ/L (23.0-31.0)
[2017-02-03 02:01] LABS: HEMATOCRIT 29.2 % (42.0-52.0); HEMOGLOBIN 9.3 g/dl (14.0-18.0); MEAN CORPUSCULAR HEMOGLOBIN 32.1 pg (27.0-33.0); MEAN CORPUSCULAR HGB CONC 31.8 g/dl (32.0-36.5); MEAN CORPUSCULAR VOLUME 100.7 fl (80.0-96.0); PLATELET COUNT, AUTOMATED 173 10^3/uL (150-450); RED CELL DISTRIBUTION WIDTH 17.5 % (11.5-14.5); WHITE BLOOD COUNT 9.1 10^3/uL (4.0-10.0)
[2017-02-03 02:02] LABS: ADD MANUAL DIFFER YES; DIFF SLIDE NUMBER 100; LEFT SHIFT POS FLAG; POS COUNT POS FLAG; POSITIVE MORPH POS FLAG
[2017-02-03 02:16] LABS: ATYPICAL LYMPH 2 % (0-5); BANDS 6 % (< 11); EOSINOPHILS 1 % (0-5); LYMPHOCYTES 7 % (16-52); METAMYELOCYTES 1 % (0-0); MONOCYTES 7 % (0-8); NEUTROPHILS 76 % (35-75)
[2017-02-03 02:17] LABS: ANISOCYTOSIS 2+; PLATELET ESTIMATE NORMAL (NORMAL); POLYCHROMASIA 1+
[2017-02-03 02:34] LABS: LACTIC ACID SEPSIS PROTOCOL 2.3 MMOL/L (0.4-2.0)
[2017-02-03 02:36] LABS: ANION GAP 6 MEQ/L (8-16); BLOOD UREA NITROGEN 28 MG/DL (7-18); CALCIUM LEVEL 8.5 MG/DL (8.8-10.2); CARBON DIOXIDE LEVEL 33 MEQ/L (21-32); CHLORIDE LEVEL 101 MEQ/L (98-107); CREATININE FOR GFR 1.26 MG/DL (0.70-1.30); DIGOXIN LEVEL 0.8 NG/ML (0.5-2.0); GLOMERULAR FILTRATION RATE > 60.0 (>49); GLUCOSE, FASTING 239 MG/DL (80-110); POTASSIUM SERUM 4.4 MEQ/L (3.5-5.1); SODIUM LEVEL 140 MEQ/L (136-145)
[2017-02-03] MEDS ORDERED: ISOVUE-370 76% 100ML VIAL (Q9967) As Ordered (03:49)
[2017-02-03] MEDS ORDERED: GLUCAGON FOR INJ 1 MG VIAL (J1610) SC (04:15)
[2017-02-03] MEDS: predniSONE 20 MG TAB PO (04:15)
[2017-02-03] MEDS ORDERED: DEXTROSE 50% 50 ML SYRINGE IV (04:15)
[2017-02-03] MEDS ORDERED: GLUCOSE 4 GM CHEW TABLET PO (04:15)
[2017-02-03 04:29] LABS: NT-PRO BNP 1124 PG/ML (<125)
[2017-02-03 05:37] LABS: HEMATOCRIT 30.5 % (42.0-52.0); HEMOGLOBIN 9.6 g/dl (14.0-18.0); MEAN CORPUSCULAR HEMOGLOBIN 31.6 pg (27.0-33.0); MEAN CORPUSCULAR HGB CONC 31.5 g/dl (32.0-36.5); MEAN CORPUSCULAR VOLUME 100.3 fl (80.0-96.0); PLATELET COUNT, AUTOMATED 185 10^3/uL (150-450); RED BLOOD COUNT 3.04 10^6/uL (4.30-6.10); RED CELL DISTRIBUTION WIDTH 17.7 % (11.5-14.5); WHITE BLOOD COUNT 8.7 10^3/uL (4.0-10.0)
[2017-02-03 05:58] LABS: LACTIC ACID SEPSIS PROTOCOL 2.7 MMOL/L (0.4-2.0)
[2017-02-03] MEDS: VANCOMYCIN HCL 1,000 MG, VIAL MATE ADAPTER 1 EACH in D5W 250 ML IV ×3 (06:11→22:20)
[2017-02-03] MEDS: PIPERACILLIN/TAZOBACTAM SOD 3.375 GM in APPROPRIATE DILUENT 1 EA IV ×3 (07:12→18:00)
[2017-02-03] MEDS: APIXABAN 5 MG TAB (ELIQUIS) PO ×2 (08:01→22:16)
[2017-02-03] MEDS: CYANOCOBALAMIN 500 MCG TAB PO (08:01)
[2017-02-03] MEDS: MULTIVITAMINS/MINERALS THERAP 1 TAB PO (08:01)
[2017-02-03] MEDS: HumaLOG INSULIN (NovoLOG) PER UNIT SC ×4 (08:01→22:26)
[2017-02-03] MEDS: LEVEMIR (INSULIN DETEMIR) 1 UNITS/0.01ML SC ×2 (08:01→22:20)
[2017-02-03] MEDS: OMEPRAZOLE 20 MG CAP PO (08:01)
[2017-02-03] MEDS: PRAVASTATIN 20 MG TAB PO (08:01)
[2017-02-03] MEDS: METOPROLOL TART 50 MG TAB PO ×2 (08:02→22:18)
[2017-02-03] MEDS: FERROUS SULFATE 325MG TAB PO (08:02)
[2017-02-03] MEDS: ASPIRIN 81 MG ENTERIC TAB PO (08:02)
[2017-02-03] MEDS: DIGOXIN 0.125 MG TAB PO (08:02)
[2017-02-03 08:58] LABS: BEDSIDE GLUCOSE 250 MG/DL (80-115)
[2017-02-03] MEDS ORDERED: predniSONE 10 MG TAB PO (09:00)
[2017-02-03] MEDS: ZONISAMIDE 50 MG CAP (ZONEGRAN) PO ×2 (09:20→22:19)
[2017-02-03] MEDS: rOPINIRole 1MG TAB PO ×2 (09:21→22:18)
[2017-02-03] MEDS: IPRATROPIUM 0.5MG/ALBUTEROL 2.5MG INH SOL UD 3ML (DUONEB)(J7620) NEB ×2 (10:00→19:29)
[2017-02-03 12:03] LABS: BEDSIDE GLUCOSE 256 MG/DL (80-115)
[2017-02-03] MEDS: TIOTROPIUM INHALER/CAPSULE (SPIRIVA) INH (16:00)
[2017-02-03 16:41] LABS: BEDSIDE GLUCOSE 273 MG/DL (80-115)
[2017-02-03] MEDS: ADVAIR HFA 230/21MCG INHALER INH (19:29)
[2017-02-03] MEDS: SERTRALINE HCL 25 MG TABLET PO (22:19)
[2017-02-03 22:29] LABS: BEDSIDE GLUCOSE 276 MG/DL (80-115)
[2017-02-04] MEDS: PIPERACILLIN/TAZOBACTAM SOD 3.375 GM in APPROPRIATE DILUENT 1 EA IV ×4 (00:21→17:36)
[2017-02-04] MEDS: IPRATROPIUM 0.5MG/ALBUTEROL 2.5MG INH SOL UD 3ML (DUONEB)(J7620) NEB (00:59)
[2017-02-04 04:44] LABS: HEMATOCRIT 28.3 % (42.0-52.0); HEMOGLOBIN 9.1 g/dl (14.0-18.0); MEAN CORPUSCULAR HEMOGLOBIN 31.8 pg (27.0-33.0); MEAN CORPUSCULAR HGB CONC 32.2 g/dl (32.0-36.5); PLATELET COUNT, AUTOMATED 164 10^3/uL (150-450); RED BLOOD COUNT 2.86 10^6/uL (4.30-6.10); RED CELL DISTRIBUTION WIDTH 17.8 % (11.5-14.5); WHITE BLOOD COUNT 4.9 10^3/uL (4.0-10.0)
[2017-02-04] MEDS: HumaLOG INSULIN (NovoLOG) PER UNIT SC ×4 (07:19→21:00)
[2017-02-04] MEDS: TIOTROPIUM INHALER/CAPSULE (SPIRIVA) INH (07:32)
[2017-02-04] MEDS: ADVAIR HFA 230/21MCG INHALER INH ×2 (07:33→19:56)
[2017-02-04 09:21] LABS: ANION GAP 8 MEQ/L (8-16); BLOOD UREA NITROGEN 30 MG/DL (7-18); CALCIUM LEVEL 8.4 MG/DL (8.8-10.2); CARBON DIOXIDE LEVEL 29 MEQ/L (21-32); CHLORIDE LEVEL 101 MEQ/L (98-107); CREATININE FOR GFR 1.15 MG/DL (0.70-1.30); GLOMERULAR FILTRATION RATE > 60.0 (>49); GLUCOSE, FASTING 132 MG/DL (80-110); MAGNESIUM LEVEL 1.7 MG/DL (1.8-2.4); POTASSIUM SERUM 3.7 MEQ/L (3.5-5.1); SODIUM LEVEL 138 MEQ/L (136-145)
[2017-02-04 09:29] LABS: LACTIC ACID SEPSIS PROTOCOL 2.6 MMOL/L (0.4-2.0)
[2017-02-04] MEDS: OMEPRAZOLE 20 MG CAP PO (09:50)
[2017-02-04] MEDS: ZONISAMIDE 50 MG CAP (ZONEGRAN) PO ×2 (09:50→21:18)
[2017-02-04] MEDS: CYANOCOBALAMIN 500 MCG TAB PO (09:50)
[2017-02-04] MEDS: PRAVASTATIN 20 MG TAB PO (09:50)
[2017-02-04] MEDS: FERROUS SULFATE 325MG TAB PO (09:50)
[2017-02-04] MEDS: VANCOMYCIN HCL 1,000 MG, VIAL MATE ADAPTER 1 EACH in D5W 250 ML IV ×2 (09:50→21:18)
[2017-02-04] MEDS: ASPIRIN 81 MG ENTERIC TAB PO (09:50)
[2017-02-04] MEDS: guaiFENesin ER 600 MG TAB PO ×2 (09:50→21:18)
[2017-02-04] MEDS: rOPINIRole 1MG TAB PO ×2 (09:50→21:18)
[2017-02-04] MEDS: MULTIVITAMINS/MINERALS THERAP 1 TAB PO (09:50)
[2017-02-04] MEDS: DIGOXIN 0.125 MG TAB PO (09:51)
[2017-02-04] MEDS: METOPROLOL TART 50 MG TAB PO ×2 (09:51→21:19)
[2017-02-04] MEDS: APIXABAN 5 MG TAB (ELIQUIS) PO ×2 (09:51→21:18)
[2017-02-04] MEDS: LEVEMIR (INSULIN DETEMIR) 1 UNITS/0.01ML SC ×2 (09:52→21:00)
[2017-02-04 11:45] LABS: BEDSIDE GLUCOSE 176 MG/DL (80-115)
[2017-02-04] MEDS: MAG SULF 1GM/100ML (MAG RUN) 1 GM in APPROPRIATE DILUENT 1 EA IV (15:37)
[2017-02-04 17:11] LABS: BEDSIDE GLUCOSE 98 MG/DL (80-115)
[2017-02-04] MEDS: SERTRALINE HCL 25 MG TABLET PO (21:18)
[2017-02-04 21:32] LABS: BEDSIDE GLUCOSE 113 MG/DL (80-115)
[2017-02-05] MEDS: PIPERACILLIN/TAZOBACTAM SOD 3.375 GM in APPROPRIATE DILUENT 1 EA IV ×2 (00:26→05:50)
[2017-02-05 06:17] LABS: HEMATOCRIT 28.9 % (42.0-52.0); HEMOGLOBIN 9.1 g/dl (14.0-18.0); MEAN CORPUSCULAR HEMOGLOBIN 31.1 pg (27.0-33.0); MEAN CORPUSCULAR HGB CONC 31.5 g/dl (32.0-36.5); MEAN CORPUSCULAR VOLUME 98.6 fl (80.0-96.0); PLATELET COUNT, AUTOMATED 174 10^3/uL (150-450); RED BLOOD COUNT 2.93 10^6/uL (4.30-6.10); RED CELL DISTRIBUTION WIDTH 18.1 % (11.5-14.5); WHITE BLOOD COUNT 5.8 10^3/uL (4.0-10.0)
[2017-02-05 06:40] LABS: BEDSIDE GLUCOSE 71 MG/DL (80-115)
[2017-02-05] MEDS: HumaLOG INSULIN (NovoLOG) PER UNIT SC ×4 (07:30→21:00)
[2017-02-05] MEDS: METOPROLOL TART 50 MG TAB PO ×2 (09:00→21:45)
[2017-02-05] MEDS: CYANOCOBALAMIN 500 MCG TAB PO (09:15)
[2017-02-05] MEDS: OMEPRAZOLE 20 MG CAP PO (09:15)
[2017-02-05] MEDS: MULTIVITAMINS/MINERALS THERAP 1 TAB PO (09:15)
[2017-02-05] MEDS: LEVEMIR (INSULIN DETEMIR) 1 UNITS/0.01ML SC ×2 (09:15→21:46)
[2017-02-05] MEDS: FERROUS SULFATE 325MG TAB PO (09:15)
[2017-02-05] MEDS: rOPINIRole 1MG TAB PO ×2 (09:16→21:44)
[2017-02-05] MEDS: PRAVASTATIN 20 MG TAB PO (09:16)
[2017-02-05] MEDS: APIXABAN 5 MG TAB (ELIQUIS) PO ×2 (09:16→21:44)
[2017-02-05] MEDS: ZONISAMIDE 50 MG CAP (ZONEGRAN) PO ×2 (09:16→21:44)
[2017-02-05] MEDS: ASPIRIN 81 MG ENTERIC TAB PO (09:16)
[2017-02-05] MEDS: guaiFENesin ER 600 MG TAB PO ×2 (09:16→21:44)
[2017-02-05] MEDS: DIGOXIN 0.125 MG TAB PO (09:20)
[2017-02-05] MEDS: IPRATROPIUM 0.5MG/ALBUTEROL 2.5MG INH SOL UD 3ML (DUONEB)(J7620) NEB (09:27)
[2017-02-05] MEDS: TIOTROPIUM INHALER/CAPSULE (SPIRIVA) INH (09:27)
[2017-02-05] MEDS: ADVAIR HFA 230/21MCG INHALER INH ×2 (09:27→19:45)
[2017-02-05] MEDS: CEFTRIAXONE SOD 2 GM in APPROPRIATE DILUENT 1 EA IV (10:33)
[2017-02-05 12:22] LABS: BEDSIDE GLUCOSE 111 MG/DL (80-115)
[2017-02-05] MEDS ORDERED: ACETAMINOPHEN TAB 650MG DOSE (2X325MG) PO (14:00)
[2017-02-05 14:19] LABS: HEMATOCRIT 29.1 % (42.0-52.0); HEMOGLOBIN 9.3 g/dl (14.0-18.0); MEAN CORPUSCULAR HEMOGLOBIN 31.7 pg (27.0-33.0); MEAN CORPUSCULAR VOLUME 99.3 fl (80.0-96.0); PLATELET COUNT, AUTOMATED 163 10^3/uL (150-450); RED BLOOD COUNT 2.93 10^6/uL (4.30-6.10); RED CELL DISTRIBUTION WIDTH 18.1 % (11.5-14.5); WHITE BLOOD COUNT 5.3 10^3/uL (4.0-10.0)
[2017-02-05 14:39] LABS: ANION GAP 5 MEQ/L (8-16); BLOOD UREA NITROGEN 17 MG/DL (7-18); CARBON DIOXIDE LEVEL 34 MEQ/L (21-32); CHLORIDE LEVEL 98 MEQ/L (98-107); CREATININE FOR GFR 1.19 MG/DL (0.70-1.30); GLOMERULAR FILTRATION RATE > 60.0 (>49); GLUCOSE, FASTING 107 MG/DL (80-110); MAGNESIUM LEVEL 1.7 MG/DL (1.8-2.4); POTASSIUM SERUM 3.6 MEQ/L (3.5-5.1); SODIUM LEVEL 137 MEQ/L (136-145)
[2017-02-05] MEDS: LOPERAMIDE 2 MG CAP PO (18:24)
[2017-02-05 21:19] LABS: BEDSIDE GLUCOSE 152 MG/DL (80-115)
[2017-02-05] MEDS: SERTRALINE HCL 25 MG TABLET PO (21:44)
[2017-02-06 05:41] LABS: HEMATOCRIT 28.3 % (42.0-52.0); MEAN CORPUSCULAR HEMOGLOBIN 31.3 pg (27.0-33.0); MEAN CORPUSCULAR HGB CONC 31.8 g/dl (32.0-36.5); MEAN CORPUSCULAR VOLUME 98.3 fl (80.0-96.0); PLATELET COUNT, AUTOMATED 172 10^3/uL (150-450); RED BLOOD COUNT 2.88 10^6/uL (4.30-6.10); RED CELL DISTRIBUTION WIDTH 18.2 % (11.5-14.5); WHITE BLOOD COUNT 6.5 10^3/uL (4.0-10.0)
[2017-02-06 06:44] LABS: BEDSIDE GLUCOSE 101 MG/DL (80-115)
[2017-02-06 06:59] LABS: BEDSIDE GLUCOSE 101 MG/DL (80-115)
[2017-02-06] MEDS: HumaLOG INSULIN (NovoLOG) PER UNIT SC ×4 (07:30→21:00)
[2017-02-06] MEDS: TIOTROPIUM INHALER/CAPSULE (SPIRIVA) INH (08:05)
[2017-02-06] MEDS: ADVAIR HFA 230/21MCG INHALER INH (08:06)
[2017-02-06 08:37] LABS: ANION GAP 7 MEQ/L (8-16); BLOOD UREA NITROGEN 14 MG/DL (7-18); CALCIUM LEVEL 7.9 MG/DL (8.8-10.2); CARBON DIOXIDE LEVEL 31 MEQ/L (21-32); CHLORIDE LEVEL 100 MEQ/L (98-107); CREATININE FOR GFR 1.06 MG/DL (0.70-1.30); GLOMERULAR FILTRATION RATE > 60.0 (>49); GLUCOSE, FASTING 94 MG/DL (80-110); MAGNESIUM LEVEL 1.9 MG/DL (1.8-2.4); POTASSIUM SERUM 3.6 MEQ/L (3.5-5.1); SODIUM LEVEL 138 MEQ/L (136-145)
[2017-02-06 08:43] LABS: BEDSIDE GLUCOSE 102 MG/DL (80-115)
[2017-02-06 09:46] LABS: DIFF SLIDE NUMBER 25; POS COUNT POS FLAG
[2017-02-06] MEDS: ASPIRIN 81 MG ENTERIC TAB PO (09:52)
[2017-02-06] MEDS: APIXABAN 5 MG TAB (ELIQUIS) PO ×2 (09:52→21:05)
[2017-02-06] MEDS: ZONISAMIDE 50 MG CAP (ZONEGRAN) PO ×2 (09:52→21:05)
[2017-02-06] MEDS: PRAVASTATIN 20 MG TAB PO (09:52)
[2017-02-06] MEDS: rOPINIRole 1MG TAB PO ×2 (09:52→21:05)
[2017-02-06] MEDS: guaiFENesin ER 600 MG TAB PO ×2 (09:53→21:05)
[2017-02-06] MEDS: CEFTRIAXONE SOD 2 GM in APPROPRIATE DILUENT 1 EA IV (09:53)
[2017-02-06] MEDS: METOPROLOL TART 50 MG TAB PO ×2 (09:53→21:05)
[2017-02-06] MEDS: MULTIVITAMINS/MINERALS THERAP 1 TAB PO (09:53)
[2017-02-06] MEDS: CYANOCOBALAMIN 500 MCG TAB PO (09:53)
[2017-02-06] MEDS: DIGOXIN 0.125 MG TAB PO (09:53)
[2017-02-06] MEDS: LEVEMIR (INSULIN DETEMIR) 1 UNITS/0.01ML SC ×2 (09:54→21:06)
[2017-02-06] MEDS: FERROUS SULFATE 325MG TAB PO (09:54)
[2017-02-06] MEDS: OMEPRAZOLE 20 MG CAP PO (09:54)
[2017-02-06 10:38] LABS: ATYPICAL LYMPH 5 % (0-5); BANDS 2 % (< 11); BASOPHILS 1 % (0-4); EOSINOPHILS 3 % (0-5); LYMPHOCYTES 12 % (16-52); METAMYELOCYTES 5 % (0-0); MONOCYTES 6 % (0-8); MYELOCYTES 4 % (0-0); NEUTROPHILS 61 % (35-75); PROMYELOCYTES 1 % (0-0)
[2017-02-06 10:41] LABS: POLYCHROMASIA 2+
[2017-02-06 10:42] LABS: PLATELET ESTIMATE NORMAL (NORMAL)
[2017-02-06] MEDS: IPRATROPIUM 0.5MG/ALBUTEROL 2.5MG INH SOL UD 3ML (DUONEB)(J7620) NEB ×3 (11:30→19:32)
[2017-02-06 12:10] LABS: BEDSIDE GLUCOSE 116 MG/DL (80-115)
[2017-02-06] MEDS: predniSONE 20 MG TAB PO (12:25)
[2017-02-06 16:08] LABS: BEDSIDE GLUCOSE 196 MG/DL (80-115)
[2017-02-06 17:30] LABS: BEDSIDE GLUCOSE 222 MG/DL (80-115)
[2017-02-06 20:22] LABS: BEDSIDE GLUCOSE 347 MG/DL (80-115)
[2017-02-06] MEDS: SERTRALINE HCL 25 MG TABLET PO (21:05)
[2017-02-07] MEDS: IPRATROPIUM 0.5MG/ALBUTEROL 2.5MG INH SOL UD 3ML (DUONEB)(J7620) NEB ×6 (00:10→19:20)
[2017-02-07 05:51] LABS: HEMATOCRIT 29.2 % (42.0-52.0); HEMOGLOBIN 9.4 g/dl (14.0-18.0); MEAN CORPUSCULAR HEMOGLOBIN 31.4 pg (27.0-33.0); MEAN CORPUSCULAR HGB CONC 32.2 g/dl (32.0-36.5); MEAN CORPUSCULAR VOLUME 97.7 fl (80.0-96.0); PLATELET COUNT, AUTOMATED 182 10^3/uL (150-450); RED BLOOD COUNT 2.99 10^6/uL (4.30-6.10); RED CELL DISTRIBUTION WIDTH 17.6 % (11.5-14.5); WHITE BLOOD COUNT 7.7 10^3/uL (4.0-10.0)
[2017-02-07 06:07] LABS: ANION GAP 8 MEQ/L (8-16); BLOOD UREA NITROGEN 18 MG/DL (7-18); CALCIUM LEVEL 8.8 MG/DL (8.8-10.2); CARBON DIOXIDE LEVEL 31 MEQ/L (21-32); CHLORIDE LEVEL 100 MEQ/L (98-107); CREATININE FOR GFR 0.98 MG/DL (0.70-1.30); GLOMERULAR FILTRATION RATE > 60.0 (>49); GLUCOSE, FASTING 155 MG/DL (80-110); MAGNESIUM LEVEL 2.1 MG/DL (1.8-2.4); POTASSIUM SERUM 3.9 MEQ/L (3.5-5.1); SODIUM LEVEL 139 MEQ/L (136-145)
[2017-02-07 06:38] LABS: BEDSIDE GLUCOSE 141 MG/DL (80-115)
[2017-02-07] MEDS: TIOTROPIUM INHALER/CAPSULE (SPIRIVA) INH (07:44)
[2017-02-07] MEDS: CEFTRIAXONE SOD 2 GM in APPROPRIATE DILUENT 1 EA IV (09:11)
[2017-02-07] MEDS: HumaLOG INSULIN (NovoLOG) PER UNIT SC ×4 (09:11→20:55)
[2017-02-07] MEDS: PANTOPRAZOLE 40MG INJ (PROTONIX) (C9113) IV (09:11)
[2017-02-07] MEDS: ASPIRIN 81 MG ENTERIC TAB PO (09:12)
[2017-02-07] MEDS: APIXABAN 5 MG TAB (ELIQUIS) PO ×2 (09:12→20:56)
[2017-02-07] MEDS: MULTIVITAMINS/MINERALS THERAP 1 TAB PO (09:12)
[2017-02-07] MEDS: predniSONE 20 MG TAB PO (09:12)
[2017-02-07] MEDS: CYANOCOBALAMIN 500 MCG TAB PO (09:12)
[2017-02-07] MEDS: LEVEMIR (INSULIN DETEMIR) 1 UNITS/0.01ML SC ×2 (09:12→20:52)
[2017-02-07] MEDS: guaiFENesin ER 600 MG TAB PO ×2 (09:12→20:51)
[2017-02-07] MEDS: ZONISAMIDE 50 MG CAP (ZONEGRAN) PO ×2 (09:12→20:51)
[2017-02-07] MEDS: PRAVASTATIN 20 MG TAB PO (09:12)
[2017-02-07] MEDS: FERROUS SULFATE 325MG TAB PO (09:13)
[2017-02-07] MEDS: METOPROLOL TART 50 MG TAB PO ×2 (09:13→20:51)
[2017-02-07] MEDS: DIGOXIN 0.125 MG TAB PO (09:13)
[2017-02-07] MEDS: rOPINIRole 1MG TAB PO ×2 (09:13→20:51)
[2017-02-07] MEDS: VANCOMYCIN HCL 1,000 MG, VIAL MATE ADAPTER 1 EACH in D5W 250 ML IV ×3 (10:33→22:00)
[2017-02-07 12:05] LABS: BEDSIDE GLUCOSE 151 MG/DL (80-115)
[2017-02-07 19:18] LABS: BEDSIDE GLUCOSE 294 MG/DL (80-115)
[2017-02-07 20:16] LABS: BEDSIDE GLUCOSE 337 MG/DL (80-115)
[2017-02-07] MEDS: SERTRALINE HCL 25 MG TABLET PO (20:51)
[2017-02-08] MEDS: IPRATROPIUM 0.5MG/ALBUTEROL 2.5MG INH SOL UD 3ML (DUONEB)(J7620) NEB ×6 (03:10→19:15)
[2017-02-08 06:08] LABS: HEMATOCRIT 27.4 % (42.0-52.0); HEMOGLOBIN 8.8 g/dl (14.0-18.0); MEAN CORPUSCULAR HEMOGLOBIN 32.2 pg (27.0-33.0); MEAN CORPUSCULAR HGB CONC 32.1 g/dl (32.0-36.5); MEAN CORPUSCULAR VOLUME 100.4 fl (80.0-96.0); PLATELET COUNT, AUTOMATED 188 10^3/uL (150-450); RED BLOOD COUNT 2.73 10^6/uL (4.30-6.10); RED CELL DISTRIBUTION WIDTH 18.2 % (11.5-14.5); WHITE BLOOD COUNT 10.1 10^3/uL (4.0-10.0)
[2017-02-08 06:36] LABS: ANION GAP 9 MEQ/L (8-16); BLOOD UREA NITROGEN 19 MG/DL (7-18); C REACTIVE PROTEIN QUANTITATIV 6.16 MG/DL (0.00-0.30); CALCIUM LEVEL 8.4 MG/DL (8.8-10.2); CARBON DIOXIDE LEVEL 31 MEQ/L (21-32); CHLORIDE LEVEL 102 MEQ/L (98-107); CREATININE FOR GFR 0.98 MG/DL (0.70-1.30); GLOMERULAR FILTRATION RATE > 60.0 (>49); GLUCOSE, FASTING 127 MG/DL (80-110); SODIUM LEVEL 142 MEQ/L (136-145)
[2017-02-08] MEDS: LEVEMIR (INSULIN DETEMIR) 1 UNITS/0.01ML SC ×2 (08:19→20:58)
[2017-02-08] MEDS: HumaLOG INSULIN (NovoLOG) PER UNIT SC ×4 (08:19→20:59)
[2017-02-08] MEDS: predniSONE 20 MG TAB PO (08:19)
[2017-02-08] MEDS: PANTOPRAZOLE 40MG INJ (PROTONIX) (C9113) IV (08:19)
[2017-02-08] MEDS: CEFTRIAXONE SOD 2 GM in APPROPRIATE DILUENT 1 EA IV (08:19)
[2017-02-08] MEDS: rOPINIRole 1MG TAB PO ×2 (08:20→20:57)
[2017-02-08] MEDS: guaiFENesin ER 600 MG TAB PO ×2 (08:20→20:57)
[2017-02-08] MEDS: PRAVASTATIN 20 MG TAB PO (08:20)
[2017-02-08] MEDS: ZONISAMIDE 50 MG CAP (ZONEGRAN) PO ×2 (08:20→21:00)
[2017-02-08] MEDS: FERROUS SULFATE 325MG TAB PO (08:20)
[2017-02-08] MEDS: DIGOXIN 0.125 MG TAB PO (08:20)
[2017-02-08] MEDS: MULTIVITAMINS/MINERALS THERAP 1 TAB PO (08:20)
[2017-02-08] MEDS: ASPIRIN 81 MG ENTERIC TAB PO (08:20)
[2017-02-08] MEDS: CYANOCOBALAMIN 500 MCG TAB PO (08:20)
[2017-02-08] MEDS: APIXABAN 5 MG TAB (ELIQUIS) PO ×2 (08:20→20:57)
[2017-02-08] MEDS: METOPROLOL TART 50 MG TAB PO ×2 (08:21→20:56)
[2017-02-08] MEDS: TIOTROPIUM INHALER/CAPSULE (SPIRIVA) INH (08:35)
[2017-02-08 11:54] LABS: BEDSIDE GLUCOSE 132 MG/DL (80-115)
[2017-02-08] MEDS: DOXYCYCLINE HYCLATE 100 MG TAB PO ×2 (12:12→20:57)
[2017-02-08] MEDS: LOPERAMIDE 2 MG CAP PO (12:12)
[2017-02-08] MEDS: SERTRALINE HCL 25 MG TABLET PO (20:56)
[2017-02-08 21:16] LABS: BEDSIDE GLUCOSE 405 MG/DL (80-115)
[2017-02-08 22:33] LABS: BEDSIDE GLUCOSE 284 MG/DL (80-115)
[2017-02-09] MEDS: IPRATROPIUM 0.5MG/ALBUTEROL 2.5MG INH SOL UD 3ML (DUONEB)(J7620) NEB ×6 (03:16→19:22)
[2017-02-09 06:41] LABS: HEMATOCRIT 29.5 % (42.0-52.0); HEMOGLOBIN 9.1 g/dl (14.0-18.0); MEAN CORPUSCULAR HEMOGLOBIN 31.1 pg (27.0-33.0); MEAN CORPUSCULAR HGB CONC 30.8 g/dl (32.0-36.5); MEAN CORPUSCULAR VOLUME 100.7 fl (80.0-96.0); PLATELET COUNT, AUTOMATED 212 10^3/uL (150-450); RED BLOOD COUNT 2.93 10^6/uL (4.30-6.10); WHITE BLOOD COUNT 10.4 10^3/uL (4.0-10.0)
[2017-02-09] MEDS: TIOTROPIUM INHALER/CAPSULE (SPIRIVA) INH (06:58)
[2017-02-09 07:08] LABS: ANION GAP 8 MEQ/L (8-16); BLOOD UREA NITROGEN 22 MG/DL (7-18); C REACTIVE PROTEIN QUANTITATIV 3.15 MG/DL (0.00-0.30); CALCIUM LEVEL 8.8 MG/DL (8.8-10.2); CARBON DIOXIDE LEVEL 29 MEQ/L (21-32); CHLORIDE LEVEL 103 MEQ/L (98-107); CREATININE FOR GFR 1.32 MG/DL (0.70-1.30); GLOMERULAR FILTRATION RATE 58.1 (>49); GLUCOSE, FASTING 178 MG/DL (80-110); MAGNESIUM LEVEL 1.6 MG/DL (1.8-2.4); POTASSIUM SERUM 3.9 MEQ/L (3.5-5.1); SODIUM LEVEL 140 MEQ/L (136-145)
[2017-02-09] MEDS: LEVEMIR (INSULIN DETEMIR) 1 UNITS/0.01ML SC ×2 (08:10→20:57)
[2017-02-09] MEDS: CEFTRIAXONE SOD 2 GM in APPROPRIATE DILUENT 1 EA IV (08:11)
[2017-02-09] MEDS: HumaLOG INSULIN (NovoLOG) PER UNIT SC ×4 (08:11→20:58)
[2017-02-09] MEDS: PANTOPRAZOLE 40MG INJ (PROTONIX) (C9113) IV (08:11)
[2017-02-09] MEDS: CYANOCOBALAMIN 500 MCG TAB PO (08:11)
[2017-02-09] MEDS: ZONISAMIDE 50 MG CAP (ZONEGRAN) PO ×2 (08:11→20:58)
[2017-02-09] MEDS: rOPINIRole 1MG TAB PO ×2 (08:11→20:58)
[2017-02-09] MEDS: APIXABAN 5 MG TAB (ELIQUIS) PO ×2 (08:11→20:59)
[2017-02-09] MEDS: PRAVASTATIN 20 MG TAB PO (08:12)
[2017-02-09] MEDS: DOXYCYCLINE HYCLATE 100 MG TAB PO ×2 (08:12→20:58)
[2017-02-09] MEDS: DIGOXIN 0.125 MG TAB PO (08:12)
[2017-02-09] MEDS: predniSONE 20 MG TAB PO (08:12)
[2017-02-09] MEDS: MULTIVITAMINS/MINERALS THERAP 1 TAB PO (08:12)
[2017-02-09] MEDS: guaiFENesin ER 600 MG TAB PO ×2 (08:12→20:58)
[2017-02-09] MEDS: FERROUS SULFATE 325MG TAB PO (08:13)
[2017-02-09] MEDS: ASPIRIN 81 MG ENTERIC TAB PO (08:13)
[2017-02-09] MEDS: METOPROLOL TART 50 MG TAB PO ×2 (08:13→20:59)
[2017-02-09 12:15] LABS: BEDSIDE GLUCOSE 168 MG/DL (80-115)
[2017-02-09 17:12] LABS: BEDSIDE GLUCOSE 381 MG/DL (80-115)
[2017-02-09] MEDS: MAG SULF 1GM/100ML (MAG RUN) 1 GM in APPROPRIATE DILUENT 1 EA IV (17:14)
[2017-02-09 20:51] LABS: BEDSIDE GLUCOSE 332 MG/DL (80-115)
[2017-02-09] MEDS: SERTRALINE HCL 25 MG TABLET PO (20:58)
[2017-02-09] MEDS: SODIUM CHLORIDE NASAL 0.65% SPRAY BTL (OCEAN) (23:49)
[2017-02-10] MEDS: IPRATROPIUM 0.5MG/ALBUTEROL 2.5MG INH SOL UD 3ML (DUONEB)(J7620) NEB ×6 (04:00→19:20)
[2017-02-10] MEDS: HumaLOG INSULIN (NovoLOG) PER UNIT SC ×4 (07:30→20:29)
[2017-02-10 07:35] LABS: ANION GAP 7 MEQ/L (8-16); BLOOD UREA NITROGEN 20 MG/DL (7-18); C REACTIVE PROTEIN QUANTITATIV 2.03 MG/DL (0.00-0.30); CALCIUM LEVEL 8.6 MG/DL (8.8-10.2); CARBON DIOXIDE LEVEL 31 MEQ/L (21-32); CHLORIDE LEVEL 103 MEQ/L (98-107); CREATININE FOR GFR 1.02 MG/DL (0.70-1.30); GLOMERULAR FILTRATION RATE > 60.0 (>49); GLUCOSE, FASTING 94 MG/DL (80-110); MAGNESIUM LEVEL 1.9 MG/DL (1.8-2.4); POTASSIUM SERUM 3.5 MEQ/L (3.5-5.1); SODIUM LEVEL 141 MEQ/L (136-145)
[2017-02-10] MEDS: TIOTROPIUM INHALER/CAPSULE (SPIRIVA) INH (07:48)
[2017-02-10] MEDS: ZONISAMIDE 50 MG CAP (ZONEGRAN) PO ×2 (08:23→20:27)
[2017-02-10] MEDS: APIXABAN 5 MG TAB (ELIQUIS) PO ×2 (08:23→20:28)
[2017-02-10] MEDS: DOXYCYCLINE HYCLATE 100 MG TAB PO ×2 (08:24→20:27)
[2017-02-10] MEDS: DIGOXIN 0.125 MG TAB PO (08:24)
[2017-02-10] MEDS: MULTIVITAMINS/MINERALS THERAP 1 TAB PO (08:24)
[2017-02-10] MEDS: predniSONE 10 MG TAB PO (08:24)
[2017-02-10] MEDS: ASPIRIN 81 MG ENTERIC TAB PO (08:25)
[2017-02-10] MEDS: guaiFENesin ER 600 MG TAB PO ×2 (08:25→20:28)
[2017-02-10] MEDS: PRAVASTATIN 20 MG TAB PO (08:25)
[2017-02-10] MEDS: FERROUS SULFATE 325MG TAB PO (08:25)
[2017-02-10] MEDS: rOPINIRole 1MG TAB PO ×2 (08:25→20:28)
[2017-02-10] MEDS: METOPROLOL TART 50 MG TAB PO ×2 (08:26→20:27)
[2017-02-10] MEDS: PANTOPRAZOLE 40MG INJ (PROTONIX) (C9113) IV (08:26)
[2017-02-10] MEDS: CYANOCOBALAMIN 500 MCG TAB PO (08:26)
[2017-02-10] MEDS: CEFTRIAXONE SOD 2 GM in APPROPRIATE DILUENT 1 EA IV (08:27)
[2017-02-10] MEDS: LEVEMIR (INSULIN DETEMIR) 1 UNITS/0.01ML SC ×2 (08:27→20:28)
[2017-02-10 12:00] LABS: BEDSIDE GLUCOSE 164 MG/DL (80-115)
[2017-02-10] MEDS: LevoFLOXacin 750 MG TABLET PO (14:01)
[2017-02-10 16:53] LABS: BEDSIDE GLUCOSE 284 MG/DL (80-115)
[2017-02-10 20:24] LABS: BEDSIDE GLUCOSE 293 MG/DL (80-115)
[2017-02-10] MEDS: SERTRALINE HCL 25 MG TABLET PO (20:27)
[2017-02-11] MEDS: IPRATROPIUM 0.5MG/ALBUTEROL 2.5MG INH SOL UD 3ML (DUONEB)(J7620) NEB ×7 (03:42→23:12)
[2017-02-11] MEDS: LevoFLOXacin 750 MG TABLET PO (05:17)
[2017-02-11 06:27] LABS: ANION GAP 7 MEQ/L (8-16); BLOOD UREA NITROGEN 22 MG/DL (7-18); C REACTIVE PROTEIN QUANTITATIV 2.91 MG/DL (0.00-0.30); CALCIUM LEVEL 8.8 MG/DL (8.8-10.2); CARBON DIOXIDE LEVEL 31 MEQ/L (21-32); CHLORIDE LEVEL 101 MEQ/L (98-107); CREATININE FOR GFR 1.03 MG/DL (0.70-1.30); GLOMERULAR FILTRATION RATE > 60.0 (>49); GLUCOSE, FASTING 114 MG/DL (80-110); MAGNESIUM LEVEL 1.8 MG/DL (1.8-2.4); POTASSIUM SERUM 3.5 MEQ/L (3.5-5.1); SODIUM LEVEL 139 MEQ/L (136-145)
[2017-02-11] MEDS: TIOTROPIUM INHALER/CAPSULE (SPIRIVA) INH (07:40)
[2017-02-11] MEDS: HumaLOG INSULIN (NovoLOG) PER UNIT SC ×4 (07:58→21:01)
[2017-02-11] MEDS: PANTOPRAZOLE 40MG INJ (PROTONIX) (C9113) IV (08:00)
[2017-02-11] MEDS: DIGOXIN 0.125 MG TAB PO (08:01)
[2017-02-11] MEDS: CYANOCOBALAMIN 500 MCG TAB PO (08:01)
[2017-02-11] MEDS: ASPIRIN 81 MG ENTERIC TAB PO (08:01)
[2017-02-11] MEDS: DOXYCYCLINE HYCLATE 100 MG TAB PO ×2 (08:01→21:07)
[2017-02-11] MEDS: rOPINIRole 1MG TAB PO ×2 (08:01→21:07)
[2017-02-11] MEDS: FERROUS SULFATE 325MG TAB PO (08:02)
[2017-02-11] MEDS: PRAVASTATIN 20 MG TAB PO (08:02)
[2017-02-11] MEDS: APIXABAN 5 MG TAB (ELIQUIS) PO ×2 (08:02→21:07)
[2017-02-11] MEDS: ZONISAMIDE 50 MG CAP (ZONEGRAN) PO ×2 (08:02→21:07)
[2017-02-11] MEDS: MULTIVITAMINS/MINERALS THERAP 1 TAB PO (08:02)
[2017-02-11] MEDS: guaiFENesin ER 600 MG TAB PO ×2 (08:02→21:07)
[2017-02-11] MEDS: predniSONE 10 MG TAB PO (08:02)
[2017-02-11] MEDS: METOPROLOL TART 50 MG TAB PO ×2 (08:02→21:07)
[2017-02-11] MEDS: LEVEMIR (INSULIN DETEMIR) 1 UNITS/0.01ML SC ×2 (08:03→21:08)
[2017-02-11 11:40] LABS: BEDSIDE GLUCOSE 144 MG/DL (80-115)
[2017-02-11] MEDS: LOPERAMIDE 2 MG CAP PO (13:48)
[2017-02-11 16:37] LABS: BEDSIDE GLUCOSE 232 MG/DL (80-115)
[2017-02-11 20:52] LABS: BEDSIDE GLUCOSE 239 MG/DL (80-115)
[2017-02-11] MEDS: SERTRALINE HCL 25 MG TABLET PO (21:07)
[2017-02-12] MEDS: LevoFLOXacin 750 MG TABLET PO (05:53)
[2017-02-12 06:43] LABS: ANION GAP 9 MEQ/L (8-16); BLOOD UREA NITROGEN 29 MG/DL (7-18); CALCIUM LEVEL 8.9 MG/DL (8.8-10.2); CARBON DIOXIDE LEVEL 30 MEQ/L (21-32); CHLORIDE LEVEL 101 MEQ/L (98-107); GLOMERULAR FILTRATION RATE > 60.0 (>49); GLUCOSE, FASTING 117 MG/DL (80-110); MAGNESIUM LEVEL 1.8 MG/DL (1.8-2.4); POTASSIUM SERUM 3.5 MEQ/L (3.5-5.1); SODIUM LEVEL 140 MEQ/L (136-145)
[2017-02-12] MEDS: IPRATROPIUM 0.5MG/ALBUTEROL 2.5MG INH SOL UD 3ML (DUONEB)(J7620) NEB ×2 (07:35→11:24)
[2017-02-12] MEDS: TIOTROPIUM INHALER/CAPSULE (SPIRIVA) INH (07:35)
[2017-02-12] MEDS: MULTIVITAMINS/MINERALS THERAP 1 TAB PO (08:21)
[2017-02-12] MEDS: HumaLOG INSULIN (NovoLOG) PER UNIT SC (08:21)
[2017-02-12] MEDS: PANTOPRAZOLE 40MG INJ (PROTONIX) (C9113) IV (08:21)
[2017-02-12] MEDS: APIXABAN 5 MG TAB (ELIQUIS) PO (08:21)
[2017-02-12] MEDS: ZONISAMIDE 50 MG CAP (ZONEGRAN) PO (08:21)
[2017-02-12] MEDS: LEVEMIR (INSULIN DETEMIR) 1 UNITS/0.01ML SC (08:21)
[2017-02-12] MEDS: FERROUS SULFATE 325MG TAB PO (08:22)
[2017-02-12] MEDS: CYANOCOBALAMIN 500 MCG TAB PO (08:22)
[2017-02-12] MEDS: ASPIRIN 81 MG ENTERIC TAB PO (08:22)
[2017-02-12] MEDS: guaiFENesin ER 600 MG TAB PO (08:22)
[2017-02-12] MEDS: rOPINIRole 1MG TAB PO (08:22)
[2017-02-12] MEDS: DIGOXIN 0.125 MG TAB PO (08:22)
[2017-02-12] MEDS: DOXYCYCLINE HYCLATE 100 MG TAB PO (08:22)
[2017-02-12] MEDS: PRAVASTATIN 20 MG TAB PO (08:22)
[2017-02-12] MEDS: predniSONE 20 MG TAB PO (08:22)
[2017-02-12] MEDS: METOPROLOL TART 50 MG TAB PO (08:23)
[2017-02-12 09:14] LABS: C REACTIVE PROTEIN QUANTITATIV 2.73 MG/DL (0.00-0.30)
[2017-02-12 10:01] LABS: HEMATOCRIT 28.5 % (42.0-52.0); HEMOGLOBIN 8.9 g/dl (14.0-18.0); MEAN CORPUSCULAR HEMOGLOBIN 31.9 pg (27.0-33.0); MEAN CORPUSCULAR HGB CONC 31.2 g/dl (32.0-36.5); MEAN CORPUSCULAR VOLUME 102.2 fl (80.0-96.0); PLATELET COUNT, AUTOMATED 196 10^3/uL (150-450); RED BLOOD COUNT 2.79 10^6/uL (4.30-6.10); RED CELL DISTRIBUTION WIDTH 18.7 % (11.5-14.5); WHITE BLOOD COUNT 8.7 10^3/uL (4.0-10.0)
== END 2017-02-12 12:16 | disposition home health service (06) | DRG 871 ==
LOC: M ED 23:14 → M MSPAV 02-04 15:53 → M ED INP 02-03 04:41 → M ICU 02-03 05:59
DX: A40.3 Sepsis due to Streptococcus pneumoniae (principal); J15.212 Pneumonia due to Methicillin resistant Staphylococcus aureus; I50.33 Acute on chronic diastolic (congestive) heart failure; I13.0 Hypertensive heart and chronic kidney disease with heart failure and stage 1 through stage 4 chronic kidney disease, or unspecified chronic kidney disease; E27.40 Unspecified adrenocortical insufficiency; J44.0 Chronic obstructive pulmonary disease with (acute) lower respiratory infection; J44.1 Chronic obstructive pulmonary disease with (acute) exacerbation; I48.91 Unspecified atrial fibrillation; D50.9 Iron deficiency anemia, unspecified; E11.40 Type 2 diabetes mellitus with diabetic neuropathy, unspecified; E66.9 Obesity, unspecified; G47.33 Obstructive sleep apnea (adult) (pediatric); M10.9 Gout, unspecified; N18.3 Chronic kidney disease, stage 3 (moderate); E11.22 Type 2 diabetes mellitus with diabetic chronic kidney disease; G25.81 Restless legs syndrome; E78.5 Hyperlipidemia, unspecified; F32.9 Major depressive disorder, single episode, unspecified; K21.9 Gastro-esophageal reflux disease without esophagitis; Z79.52 Long term (current) use of systemic steroids; Z79.82 Long term (current) use of aspirin; Z79.4 Long term (current) use of insulin; Z79.899 Other long term (current) drug therapy; Z87.891 Personal history of nicotine dependence; Y95 Nosocomial condition; Z79.01 Long term (current) use of anticoagulants; Z90.5 Acquired absence of kidney; Z85.118 Personal history of other malignant neoplasm of bronchus and lung; Z85.528 Personal history of other malignant neoplasm of kidney

== ENCOUNTER 2017-02-20 13:54 | Inpatient (IN) | payer MEDICARE, MEDICAID ==
[2017-02-20] MEDS: VANCOMYCIN HCL 1,000 MG, VIAL MATE ADAPTER 1 EACH in D5W 250 ML IV (00:30)
[2017-02-20 14:49] LABS: HEMATOCRIT 31.4 % (42.0-52.0); HEMOGLOBIN 9.8 g/dl (14.0-18.0); MEAN CORPUSCULAR HEMOGLOBIN 32.5 pg (27.0-33.0); MEAN CORPUSCULAR HGB CONC 31.2 g/dl (32.0-36.5); PLATELET COUNT, AUTOMATED 154 10^3/uL (150-450); RED BLOOD COUNT 3.02 10^6/uL (4.30-6.10); RED CELL DISTRIBUTION WIDTH 19.8 % (11.5-14.5); WHITE BLOOD COUNT 9.3 10^3/uL (4.0-10.0)
[2017-02-20 14:53] LABS: ADD MANUAL DIFFER YES; DIFF SLIDE NUMBER 273; POSITIVE DIFF POS FLAG
[2017-02-20] MEDS: IPRATROPIUM 0.5MG/ALBUTEROL 2.5MG INH SOL UD 3ML (DUONEB)(J7620) NEB ×5 (14:55→23:44)
[2017-02-20 14:57] LABS: ABG BASE EXCESS 2.3 (-2.0-2.0); ABG HCO3 27.7 MEQ/L (22.0-26.0); ABG O2 SATURATION 92.7 % (95.0-99.0); ABG PARTIAL PRESSURE CO2 46.7 mmHg (35.0-45.0); ABG PARTIAL PRESSURE O2 66.7 mmHg (75.0-100.0); ABG STANDARD HCO3 26.4 MEQ/L (22.0-26.0); ABG TOTAL CO2 29.1 MEQ/L (23.0-31.0); ABG pH (ARTERIAL) 7.391 UNITS (7.350-7.450)
[2017-02-20 15:00] LABS: INR 1.18; PROTHROMBIN TIME 15.2 SECONDS (12.4-14.5)
[2017-02-20 15:25] LABS: ATYPICAL LYMPH 1 % (0-5); BANDS 1 % (< 11); LYMPHOCYTES 3 % (16-52); MONOCYTES 1 % (0-8); NEUTROPHILS 94 % (35-75); NUCLEATED RED BLOOD CELL 1 % (0-0)
[2017-02-20 15:26] LABS: ALBUMIN 2.8 GM/DL (3.2-5.2); ALBUMIN/GLOBULIN RATIO 0.88 (1.00-1.93); ALKALINE PHOSPHATASE 63 U/L (45-117); ALT/SGPT 41 U/L (12-78); ANION GAP 8 MEQ/L (8-16); ANISOCYTOSIS 2+; AST/SGOT 24 U/L (7-37); BILIRUBIN,DIRECT 0.2 MG/DL (0.0-0.2); BILIRUBIN,TOTAL 0.6 MG/DL (0.2-1.0); BLOOD UREA NITROGEN 23 MG/DL (7-18); CARBON DIOXIDE LEVEL 29 MEQ/L (21-32); CHLORIDE LEVEL 100 MEQ/L (98-107); CPK CREATINE PHOSPHOKINASE 42 U/L (39-308); CREATININE FOR GFR 1.57 MG/DL (0.70-1.30); GLOMERULAR FILTRATION RATE 47.6 (>49); GLUCOSE, FASTING 375 MG/DL (80-110); PLATELET ESTIMATE NORMAL (NORMAL); POLYCHROMASIA 1+; POTASSIUM SERUM 4.5 MEQ/L (3.5-5.1); SODIUM LEVEL 137 MEQ/L (136-145); TEAR DROP CELLS 1+; TROPONIN I 0.04 NG/ML (< 0.10)
[2017-02-20 15:31] LABS: CK-MB VALUE MASS 1.3 NG/ML (0.0-3.6); MB/CK RELATIVE INDEX 3.09 (< OR =4)
[2017-02-20] MEDS: NS 1,000 ML IV ×4 (16:04→23:42)
[2017-02-20] MEDS: methylPREDNISolone INJ 125 MG/2 ML VIAL (J2930) IV ×2 (16:04→21:45)
[2017-02-20] MEDS: MOXIFLOXACIN HCL 400 MG in APPROPRIATE DILUENT 1 EA IV (16:06)
[2017-02-20 17:37] LABS: DIGOXIN LEVEL 0.9 NG/ML (0.5-2.0)
[2017-02-20] MEDS ORDERED: hydrOXYzine 50 MG TAB PO (19:45)
[2017-02-20] MEDS ORDERED: ALBUTEROL SULFATE 2.5 MG/0.5 ML INH NEB SOLN INH (19:45)
[2017-02-20] MEDS ORDERED: NS 500 ML IV (20:00)
[2017-02-20 20:55] LABS: BEDSIDE GLUCOSE 274 MG/DL (80-115)
[2017-02-20] MEDS: SERTRALINE HCL 25 MG TABLET PO (21:00)
[2017-02-20] MEDS ORDERED: VANCOMYCIN HCL 750 MG, VIAL MATE ADAPTER 1 EACH in D5W 250 ML IV ×2 (21:30→21:45)
[2017-02-20] MEDS: SODIUM CHLORIDE 0.9% 1000 ML IV (21:30)
[2017-02-20] MEDS: LEVEMIR (INSULIN DETEMIR) 1 UNITS/0.01ML SC (21:46)
[2017-02-20] MEDS: rOPINIRole 1MG TAB PO (21:47)
[2017-02-20] MEDS: OSELTAMIVIR PHOSPHATE 75 MG CAP (TAMIFLU) PO (21:47)
[2017-02-20] MEDS: LACTOBACILLUS ACIDOPHILUS CAP (BACID) PO (21:48)
[2017-02-20] MEDS: ZONISAMIDE 50 MG CAP (ZONEGRAN) PO (21:48)
[2017-02-20] MEDS: GABAPENTIN 300 MG CAP PO (21:48)
[2017-02-20] MEDS: APIXABAN 5 MG TAB (ELIQUIS) PO (21:49)
[2017-02-20] MEDS: guaiFENesin ER 600 MG TAB PO (21:49)
[2017-02-20] MEDS: METOPROLOL TART 50 MG TAB PO (21:50)
[2017-02-20 23:40] LABS: APPEARANCE, URINE HAZY (CLEAR); BACTERIA, URINE AUTO NEGATIVE (NEGATIVE); BILIRUBIN, URINE AUTO NEGATIVE (NEGATIVE); BLOOD, URINE BLOOD NEGATIVE (NEGATIVE); COLOR, URINE YELLOW (YELLOW); GLUCOSE, URINE (UA) AUTO 1+ mg/dL (NEGATIVE); KETONE, URINE AUTO NEGATIVE (NEGATIVE); LEUKOCYTE ESTERASE, URINE AUTO NEGATIVE (NEGATIVE); MUCUS, URINE SMALL (NEGATIVE); NITRITE, URINE AUTO NEGATIVE (NEGATIVE); PROTEIN, URINE AUTO 2+ mg/dL (NEGATIVE); RBC, URINE AUTO 1 /HPF (0-3); SPECIFIC GRAVITY URINE AUTO 1.015 (1.002-1.035); SQUAMOUS EPITHELIAL CELL UR AU 0 /HPF (0-6); UROBILINOGEN, URINE AUTO 0.2 mg/dL (0.0-2.0); WBC, URINE AUTO 1 /HPF (0-3)
[2017-02-20 23:54] LABS: SODIUM,RANDOM URINE 47 MEQ/L
[2017-02-21] MEDS: PIPERACILLIN/TAZOBACTAM SOD 2.25 GM in APPROPRIATE DILUENT 1 EA IV ×3 (01:44→17:06)
[2017-02-21] MEDS: IPRATROPIUM 0.5MG/ALBUTEROL 2.5MG INH SOL UD 3ML (DUONEB)(J7620) NEB ×5 (03:28→20:15)
[2017-02-21] MEDS: methylPREDNISolone INJ 125 MG/2 ML VIAL (J2930) IV ×4 (03:37→21:17)
[2017-02-21 03:57] LABS: BASO % 0.1 % (0.0-1.0); HEMATOCRIT 28.2 % (42.0-52.0); HEMOGLOBIN 8.7 g/dl (14.0-18.0); IMMATURE GRANULOCYTE # 0.2 10^3/uL (0-0); IMMATURE GRANULOCYTE % 2.2 % (0-0); LYMPH # 0.6 10^3/uL (1.5-4.5); LYMPH % 7.3 % (24.0-44.0); MEAN CORPUSCULAR HEMOGLOBIN 32.1 pg (27.0-33.0); MEAN CORPUSCULAR HGB CONC 30.9 g/dl (32.0-36.5); MEAN CORPUSCULAR VOLUME 104.1 fl (80.0-96.0); MONO # 0.2 10^3/uL (0.0-0.8); MONO % 1.9 % (0.0-5.0); NEUTROPHILS # 7.1 10^3/uL (1.8-7.7); NEUTROPHILS % 88.5 % (36.0-66.0); PLATELET COUNT, AUTOMATED 127 10^3/uL (150-450); RED BLOOD COUNT 2.71 10^6/uL (4.30-6.10); RED CELL DISTRIBUTION WIDTH 19.5 % (11.5-14.5)
[2017-02-21 04:20] LABS: ANION GAP 6 MEQ/L (8-16); BLOOD UREA NITROGEN 19 MG/DL (7-18); CALCIUM LEVEL 7.4 MG/DL (8.8-10.2); CARBON DIOXIDE LEVEL 29 MEQ/L (21-32); CHLORIDE LEVEL 104 MEQ/L (98-107); CREATININE FOR GFR 1.24 MG/DL (0.70-1.30); GLOMERULAR FILTRATION RATE > 60.0 (>49); GLUCOSE, FASTING 285 MG/DL (80-110); MAGNESIUM LEVEL 1.6 MG/DL (1.8-2.4); POTASSIUM SERUM 4.4 MEQ/L (3.5-5.1); SODIUM LEVEL 139 MEQ/L (136-145)
[2017-02-21] MEDS: NS 1,000 ML IV (04:38)
[2017-02-21] MEDS: MAG SULF 1GM/100ML (MAG RUN) 1 GM in APPROPRIATE DILUENT 1 EA IV (08:00)
[2017-02-21 08:14] LABS: NT-PRO BNP 1047 PG/ML (<125)
[2017-02-21] MEDS ORDERED: ENOXAPARIN 40 MG/0.4 ML SYRINGE (J1650) SC (09:00)
[2017-02-21 09:07] LABS: LACTIC ACID SEPSIS PROTOCOL 2.7 MMOL/L (0.4-2.0)
[2017-02-21] MEDS: LEVEMIR (INSULIN DETEMIR) 1 UNITS/0.01ML SC ×2 (09:11→21:17)
[2017-02-21] MEDS: rOPINIRole 1MG TAB PO ×2 (09:12→21:17)
[2017-02-21] MEDS: PRAVASTATIN 20 MG TAB PO (09:12)
[2017-02-21] MEDS: LACTOBACILLUS ACIDOPHILUS CAP (BACID) PO ×4 (09:12→21:17)
[2017-02-21] MEDS: ALLOPURINOL 300 MG TAB PO (09:12)
[2017-02-21] MEDS: ZONISAMIDE 50 MG CAP (ZONEGRAN) PO ×2 (09:12→21:17)
[2017-02-21] MEDS: OSELTAMIVIR PHOSPHATE 75 MG CAP (TAMIFLU) PO ×2 (09:12→21:17)
[2017-02-21] MEDS: FERROUS SULFATE 325MG TAB PO (09:12)
[2017-02-21] MEDS: DIGOXIN 0.125 MG TAB PO (09:13)
[2017-02-21] MEDS: ASPIRIN 81 MG ENTERIC TAB PO (09:13)
[2017-02-21] MEDS: OMEPRAZOLE 20 MG CAP PO (09:13)
[2017-02-21] MEDS: GABAPENTIN 300 MG CAP PO ×3 (09:13→21:17)
[2017-02-21] MEDS: APIXABAN 5 MG TAB (ELIQUIS) PO ×2 (09:13→21:18)
[2017-02-21] MEDS: MULTIVITAMINS/MINERALS THERAP 1 TAB PO (09:13)
[2017-02-21] MEDS: CYANOCOBALAMIN 500 MCG TAB PO (09:13)
[2017-02-21] MEDS: METOPROLOL TART 50 MG TAB PO ×2 (09:14→21:20)
[2017-02-21] MEDS: guaiFENesin ER 600 MG TAB PO ×2 (09:15→21:18)
[2017-02-21] MEDS: MAGNESIUM OXIDE 400 MG TAB (MAG-OX) PO (09:16)
[2017-02-21] MEDS: VANCOMYCIN HCL 1,000 MG, VIAL MATE ADAPTER 1 EACH in D5W 250 ML IV ×2 (10:00→21:17)
[2017-02-21] MEDS: FUROSEMIDE 40 MG/4 ML VIAL (J1940) IV (11:30)
[2017-02-21] MEDS: SERTRALINE HCL 25 MG TABLET PO (21:17)
[2017-02-22] MEDS: PIPERACILLIN/TAZOBACTAM SOD 2.25 GM in APPROPRIATE DILUENT 1 EA IV ×3 (00:21→17:06)
[2017-02-22] MEDS: IPRATROPIUM 0.5MG/ALBUTEROL 2.5MG INH SOL UD 3ML (DUONEB)(J7620) NEB ×7 (00:43→23:28)
[2017-02-22] MEDS ORDERED: methylPREDNISolone INJ 125 MG/2 ML VIAL (J2930) As Ordered (03:06)
[2017-02-22] MEDS: methylPREDNISolone INJ 125 MG/2 ML VIAL (J2930) IV ×4 (03:12→21:05)
[2017-02-22 07:00] LABS: BASO % 0.2 % (0.0-1.0); HEMATOCRIT 27.5 % (42.0-52.0); HEMOGLOBIN 8.5 g/dl (14.0-18.0); IMMATURE GRANULOCYTE # 0.2 10^3/uL (0-0); IMMATURE GRANULOCYTE % 2.8 % (0-0); LYMPH # 0.3 10^3/uL (1.5-4.5); LYMPH % 3.1 % (24.0-44.0); MEAN CORPUSCULAR HEMOGLOBIN 32.4 pg (27.0-33.0); MEAN CORPUSCULAR HGB CONC 30.9 g/dl (32.0-36.5); MONO # 0.3 10^3/uL (0.0-0.8); MONO % 3.8 % (0.0-5.0); NEUTROPHILS # 7.8 10^3/uL (1.8-7.7); NEUTROPHILS % 90.1 % (36.0-66.0); PLATELET COUNT, AUTOMATED 134 10^3/uL (150-450); RED BLOOD COUNT 2.62 10^6/uL (4.30-6.10); RED CELL DISTRIBUTION WIDTH 19.6 % (11.5-14.5); WHITE BLOOD COUNT 8.7 10^3/uL (4.0-10.0)
[2017-02-22 07:10] LABS: POSITIVE DIFF POS FLAG
[2017-02-22 07:30] LABS: ANION GAP 5 MEQ/L (8-16); BLOOD UREA NITROGEN 24 MG/DL (7-18); CALCIUM LEVEL 8.1 MG/DL (8.8-10.2); CARBON DIOXIDE LEVEL 32 MEQ/L (21-32); CHLORIDE LEVEL 102 MEQ/L (98-107); CREATININE FOR GFR 1.29 MG/DL (0.70-1.30); GLOMERULAR FILTRATION RATE 59.7 (>49); GLUCOSE, FASTING 290 MG/DL (80-110); NT-PRO BNP 1858 PG/ML (<125); POTASSIUM SERUM 4.3 MEQ/L (3.5-5.1); SODIUM LEVEL 139 MEQ/L (136-145)
[2017-02-22 07:31] LABS: LACTIC ACID SEPSIS PROTOCOL 3.5 MMOL/L (0.4-2.0)
[2017-02-22] MEDS: VANCOMYCIN HCL 1,000 MG, VIAL MATE ADAPTER 1 EACH in D5W 250 ML IV ×3 (09:28→21:04)
[2017-02-22] MEDS: LEVEMIR (INSULIN DETEMIR) 1 UNITS/0.01ML SC ×2 (09:28→20:28)
[2017-02-22] MEDS: rOPINIRole 1MG TAB PO ×2 (09:29→20:29)
[2017-02-22] MEDS: ZONISAMIDE 50 MG CAP (ZONEGRAN) PO ×2 (09:29→20:28)
[2017-02-22] MEDS: MAGNESIUM OXIDE 400 MG TAB (MAG-OX) PO (09:29)
[2017-02-22] MEDS: PRAVASTATIN 20 MG TAB PO (09:29)
[2017-02-22] MEDS: OMEPRAZOLE 20 MG CAP PO (09:29)
[2017-02-22] MEDS: OSELTAMIVIR PHOSPHATE 75 MG CAP (TAMIFLU) PO ×2 (09:29→20:29)
[2017-02-22] MEDS: APIXABAN 5 MG TAB (ELIQUIS) PO ×2 (09:29→20:29)
[2017-02-22] MEDS: LACTOBACILLUS ACIDOPHILUS CAP (BACID) PO ×4 (09:29→20:28)
[2017-02-22] MEDS: guaiFENesin ER 600 MG TAB PO ×2 (09:29→20:29)
[2017-02-22] MEDS: FERROUS SULFATE 325MG TAB PO (09:29)
[2017-02-22] MEDS: MULTIVITAMINS/MINERALS THERAP 1 TAB PO (09:29)
[2017-02-22] MEDS: DIGOXIN 0.125 MG TAB PO (09:32)
[2017-02-22] MEDS: ASPIRIN 81 MG ENTERIC TAB PO (09:32)
[2017-02-22] MEDS: GABAPENTIN 300 MG CAP PO ×3 (09:32→20:29)
[2017-02-22] MEDS: ALLOPURINOL 300 MG TAB PO (09:32)
[2017-02-22] MEDS: METOPROLOL TART 50 MG TAB PO ×2 (09:33→20:29)
[2017-02-22] MEDS: CYANOCOBALAMIN 500 MCG TAB PO (09:33)
[2017-02-22 10:25] LABS: VANCOMYCIN LEVEL TROUGH 9.1 UG/ML (10.0-20.0)
[2017-02-22] MEDS: FUROSEMIDE 40 MG/4 ML VIAL (J1940) IV ×2 (17:05→23:42)
[2017-02-22] MEDS: SERTRALINE HCL 25 MG TABLET PO (20:29)
[2017-02-22 20:40] LABS: BEDSIDE GLUCOSE 329 MG/DL (80-115)
[2017-02-23] MEDS: PIPERACILLIN/TAZOBACTAM SOD 2.25 GM in APPROPRIATE DILUENT 1 EA IV ×3 (00:37→16:21)
[2017-02-23] MEDS: IPRATROPIUM 0.5MG/ALBUTEROL 2.5MG INH SOL UD 3ML (DUONEB)(J7620) NEB ×5 (03:20→20:59)
[2017-02-23] MEDS: methylPREDNISolone INJ 125 MG/2 ML VIAL (J2930) IV ×3 (04:25→21:22)
[2017-02-23 05:18] LABS: BASO % 0.1 % (0.0-1.0); HEMATOCRIT 29.9 % (42.0-52.0); HEMOGLOBIN 9.4 g/dl (14.0-18.0); IMMATURE GRANULOCYTE # 0.5 10^3/uL (0-0); IMMATURE GRANULOCYTE % 4.9 % (0-0); LYMPH # 0.4 10^3/uL (1.5-4.5); LYMPH % 3.7 % (24.0-44.0); MEAN CORPUSCULAR HEMOGLOBIN 32.3 pg (27.0-33.0); MEAN CORPUSCULAR HGB CONC 31.4 g/dl (32.0-36.5); MEAN CORPUSCULAR VOLUME 102.7 fl (80.0-96.0); MONO # 0.5 10^3/uL (0.0-0.8); MONO % 4.5 % (0.0-5.0); NEUTROPHILS % 86.8 % (36.0-66.0); PLATELET COUNT, AUTOMATED 151 10^3/uL (150-450); RED BLOOD COUNT 2.91 10^6/uL (4.30-6.10); RED CELL DISTRIBUTION WIDTH 19.2 % (11.5-14.5); WHITE BLOOD COUNT 10.3 10^3/uL (4.0-10.0)
[2017-02-23 05:28] LABS: ANION GAP 8 MEQ/L (8-16); BLOOD UREA NITROGEN 30 MG/DL (7-18); CALCIUM LEVEL 8.3 MG/DL (8.8-10.2); CARBON DIOXIDE LEVEL 34 MEQ/L (21-32); CHLORIDE LEVEL 95 MEQ/L (98-107); CREATININE FOR GFR 1.65 MG/DL (0.70-1.30); GLOMERULAR FILTRATION RATE 44.9 (>49); GLUCOSE, FASTING 284 MG/DL (80-110); MAGNESIUM LEVEL 1.8 MG/DL (1.8-2.4); POTASSIUM SERUM 3.9 MEQ/L (3.5-5.1); SODIUM LEVEL 137 MEQ/L (136-145)
[2017-02-23] MEDS: FUROSEMIDE 40 MG/4 ML VIAL (J1940) IV (07:37)
[2017-02-23] MEDS: LACTOBACILLUS ACIDOPHILUS CAP (BACID) PO ×4 (09:04→21:23)
[2017-02-23] MEDS: ZONISAMIDE 50 MG CAP (ZONEGRAN) PO ×2 (09:04→21:23)
[2017-02-23] MEDS: OSELTAMIVIR PHOSPHATE 75 MG CAP (TAMIFLU) PO ×2 (09:05→21:23)
[2017-02-23] MEDS: CYANOCOBALAMIN 500 MCG TAB PO (09:05)
[2017-02-23] MEDS: rOPINIRole 1MG TAB PO ×2 (09:05→21:23)
[2017-02-23] MEDS: METOPROLOL TART 50 MG TAB PO ×2 (09:05→21:24)
[2017-02-23] MEDS: ASPIRIN 81 MG ENTERIC TAB PO (09:05)
[2017-02-23] MEDS: GABAPENTIN 300 MG CAP PO ×3 (09:06→21:23)
[2017-02-23] MEDS: ALLOPURINOL 300 MG TAB PO (09:06)
[2017-02-23] MEDS: OMEPRAZOLE 20 MG CAP PO (09:06)
[2017-02-23] MEDS: guaiFENesin ER 600 MG TAB PO ×2 (09:06→21:23)
[2017-02-23] MEDS: FERROUS SULFATE 325MG TAB PO (09:06)
[2017-02-23] MEDS: MULTIVITAMINS/MINERALS THERAP 1 TAB PO (09:06)
[2017-02-23] MEDS: DIGOXIN 0.125 MG TAB PO (09:06)
[2017-02-23] MEDS: PRAVASTATIN 20 MG TAB PO (09:06)
[2017-02-23] MEDS: APIXABAN 5 MG TAB (ELIQUIS) PO ×2 (09:07→21:23)
[2017-02-23] MEDS: MAGNESIUM OXIDE 400 MG TAB (MAG-OX) PO (09:07)
[2017-02-23] MEDS: LEVEMIR (INSULIN DETEMIR) 1 UNITS/0.01ML SC ×2 (09:08→21:23)
[2017-02-23] MEDS ORDERED: GLUCAGON FOR INJ 1 MG VIAL (J1610) SC (10:15)
[2017-02-23] MEDS ORDERED: DEXTROSE 50% 50 ML SYRINGE IV (10:15)
[2017-02-23] MEDS ORDERED: GLUCOSE 4 GM CHEW TABLET PO (10:15)
[2017-02-23] MEDS: VANCOMYCIN HCL 1,000 MG, VIAL MATE ADAPTER 1 EACH in D5W 250 ML IV ×2 (10:17→21:22)
[2017-02-23 12:04] LABS: BEDSIDE GLUCOSE 314 MG/DL (80-115)
[2017-02-23] MEDS: NYSTATIN 500,000 U/5 ML SUSP UDC SS ×3 (12:34→21:23)
[2017-02-23] MEDS: HumaLOG INSULIN (NovoLOG) PER UNIT SC ×3 (12:35→21:23)
[2017-02-23 16:34] LABS: BEDSIDE GLUCOSE 294 MG/DL (80-115)
[2017-02-23 21:17] LABS: BEDSIDE GLUCOSE 324 MG/DL (80-115)
[2017-02-23] MEDS: SERTRALINE HCL 25 MG TABLET PO (21:23)
[2017-02-24] MEDS: PIPERACILLIN/TAZOBACTAM SOD 2.25 GM in APPROPRIATE DILUENT 1 EA IV ×3 (00:06→18:18)
[2017-02-24] MEDS: IPRATROPIUM 0.5MG/ALBUTEROL 2.5MG INH SOL UD 3ML (DUONEB)(J7620) NEB ×6 (00:11→23:24)
[2017-02-24 06:51] LABS: CHLORIDE LEVEL 94 MEQ/L (98-107); SODIUM LEVEL 137 MEQ/L (136-145)
[2017-02-24 06:55] LABS: ANION GAP 7 MEQ/L (8-16); BLOOD UREA NITROGEN 31 MG/DL (7-18); CALCIUM LEVEL 8.7 MG/DL (8.8-10.2); CARBON DIOXIDE LEVEL 36 MEQ/L (21-32); HEMOGLOBIN 10.2 g/dl (14.0-18.0); MAGNESIUM LEVEL 2.1 MG/DL (1.8-2.4); MEAN CORPUSCULAR HEMOGLOBIN 31.7 pg (27.0-33.0); MEAN CORPUSCULAR HGB CONC 30.9 g/dl (32.0-36.5); MEAN CORPUSCULAR VOLUME 102.5 fl (80.0-96.0); PLATELET COUNT, AUTOMATED 170 10^3/uL (150-450); RED BLOOD COUNT 3.22 10^6/uL (4.30-6.10); RED CELL DISTRIBUTION WIDTH 18.5 % (11.5-14.5); WHITE BLOOD COUNT 9.2 10^3/uL (4.0-10.0)
[2017-02-24 06:56] LABS: GLUCOSE, FASTING 211 MG/DL (80-110)
[2017-02-24 06:59] LABS: ADD MANUAL DIFFER YES; CREATININE FOR GFR 1.19 MG/DL (0.70-1.30); DIFF SLIDE NUMBER 58; GLOMERULAR FILTRATION RATE > 60.0 (>49); POS COUNT POS FLAG; POSITIVE MORPH POS FLAG
[2017-02-24 07:11] LABS: ANISOCYTOSIS 2+; BANDS 1 % (< 11); LYMPHOCYTES 9 % (16-52); MONOCYTES 4 % (0-8); NEUTROPHILS 86 % (35-75); PLATELET ESTIMATE NORMAL (NORMAL)
[2017-02-24 07:12] LABS: MICROCYTOSIS 2+
[2017-02-24] MEDS: methylPREDNISolone INJ 125 MG/2 ML VIAL (J2930) IV (09:27)
[2017-02-24] MEDS: LACTOBACILLUS ACIDOPHILUS CAP (BACID) PO ×4 (09:28→21:46)
[2017-02-24] MEDS: ASPIRIN 81 MG ENTERIC TAB PO (09:28)
[2017-02-24] MEDS: ALLOPURINOL 300 MG TAB PO (09:28)
[2017-02-24] MEDS: PRAVASTATIN 20 MG TAB PO (09:28)
[2017-02-24] MEDS: NYSTATIN 500,000 U/5 ML SUSP UDC SS ×3 (09:28→21:46)
[2017-02-24] MEDS: ZONISAMIDE 50 MG CAP (ZONEGRAN) PO ×2 (09:28→21:46)
[2017-02-24] MEDS: rOPINIRole 1MG TAB PO ×2 (09:28→21:46)
[2017-02-24] MEDS: OSELTAMIVIR PHOSPHATE 75 MG CAP (TAMIFLU) PO (09:28)
[2017-02-24] MEDS: DIGOXIN 0.125 MG TAB PO (09:28)
[2017-02-24] MEDS: APIXABAN 5 MG TAB (ELIQUIS) PO ×2 (09:28→21:46)
[2017-02-24] MEDS: OMEPRAZOLE 20 MG CAP PO (09:29)
[2017-02-24] MEDS: FERROUS SULFATE 325MG TAB PO (09:29)
[2017-02-24] MEDS: METOPROLOL TART 50 MG TAB PO ×2 (09:29→21:46)
[2017-02-24] MEDS: CYANOCOBALAMIN 500 MCG TAB PO (09:29)
[2017-02-24] MEDS: MAGNESIUM OXIDE 400 MG TAB (MAG-OX) PO (09:29)
[2017-02-24] MEDS: GABAPENTIN 300 MG CAP PO ×3 (09:29→21:46)
[2017-02-24] MEDS: guaiFENesin ER 600 MG TAB PO ×2 (09:29→21:46)
[2017-02-24] MEDS: MULTIVITAMINS/MINERALS THERAP 1 TAB PO (09:30)
[2017-02-24] MEDS: HumaLOG INSULIN (NovoLOG) PER UNIT SC ×4 (09:30→21:47)
[2017-02-24] MEDS: LEVEMIR (INSULIN DETEMIR) 1 UNITS/0.01ML SC ×2 (09:31→21:47)
[2017-02-24 09:58] LABS: VANCOMYCIN LEVEL TROUGH 15.4 UG/ML (10.0-20.0)
[2017-02-24] MEDS: TORSEMIDE 5MG TABLET PO ×2 (11:02→18:18)
[2017-02-24] MEDS: VANCOMYCIN HCL 1,000 MG, VIAL MATE ADAPTER 1 EACH in D5W 250 ML IV ×2 (11:02→21:47)
[2017-02-24 12:36] LABS: BEDSIDE GLUCOSE 216 MG/DL (80-115)
[2017-02-24 17:47] LABS: BEDSIDE GLUCOSE 243 MG/DL (80-115)
[2017-02-24 20:51] LABS: BEDSIDE GLUCOSE 270 MG/DL (80-115)
[2017-02-24] MEDS: SERTRALINE HCL 25 MG TABLET PO (21:46)
[2017-02-25 01:16] LABS: CPK CREATINE PHOSPHOKINASE 24 U/L (39-308); TROPONIN I 0.06 NG/ML (< 0.10)
[2017-02-25 01:17] LABS: CK-MB VALUE MASS 1.7 NG/ML (0.0-3.6); MB/CK RELATIVE INDEX 7.08 (< OR =4)
[2017-02-25] MEDS: PIPERACILLIN/TAZOBACTAM SOD 2.25 GM in APPROPRIATE DILUENT 1 EA IV ×2 (01:18→07:53)
[2017-02-25] MEDS: IPRATROPIUM 0.5MG/ALBUTEROL 2.5MG INH SOL UD 3ML (DUONEB)(J7620) NEB ×6 (03:01→23:05)
[2017-02-25 06:23] LABS: HEMOGLOBIN 10.3 g/dl (14.0-18.0); MEAN CORPUSCULAR HEMOGLOBIN 31.9 pg (27.0-33.0); MEAN CORPUSCULAR HGB CONC 31.2 g/dl (32.0-36.5); MEAN CORPUSCULAR VOLUME 102.2 fl (80.0-96.0); PLATELET COUNT, AUTOMATED 158 10^3/uL (150-450); RED BLOOD COUNT 3.23 10^6/uL (4.30-6.10); RED CELL DISTRIBUTION WIDTH 18.5 % (11.5-14.5); WHITE BLOOD COUNT 9.6 10^3/uL (4.0-10.0)
[2017-02-25 06:24] LABS: ADD MANUAL DIFFER YES; DIFF SLIDE NUMBER 33; POS COUNT POS FLAG; POSITIVE MORPH POS FLAG
[2017-02-25 06:39] LABS: ANION GAP 4 MEQ/L (8-16); BLOOD UREA NITROGEN 36 MG/DL (7-18); CALCIUM LEVEL 9.2 MG/DL (8.8-10.2); CARBON DIOXIDE LEVEL 41 MEQ/L (21-32); CHLORIDE LEVEL 95 MEQ/L (98-107); CREATININE FOR GFR 1.15 MG/DL (0.70-1.30); GLOMERULAR FILTRATION RATE > 60.0 (>49); GLUCOSE, FASTING 119 MG/DL (80-110); MAGNESIUM LEVEL 2.1 MG/DL (1.8-2.4); POTASSIUM SERUM 3.2 MEQ/L (3.5-5.1); SODIUM LEVEL 140 MEQ/L (136-145)
[2017-02-25 07:05] LABS: ANISOCYTOSIS 2+; BANDS 1 % (< 11); LYMPHOCYTES 9 % (16-52); MONOCYTES 5 % (0-8); NEUTROPHILS 85 % (35-75); PLATELET ESTIMATE NORMAL (NORMAL)
[2017-02-25 07:06] LABS: MICROCYTOSIS 2+
[2017-02-25] MEDS: HumaLOG INSULIN (NovoLOG) PER UNIT SC ×4 (07:49→21:00)
[2017-02-25] MEDS: NYSTATIN 500,000 U/5 ML SUSP UDC SS ×3 (07:49→23:37)
[2017-02-25] MEDS: rOPINIRole 1MG TAB PO ×2 (07:50→23:38)
[2017-02-25] MEDS: ZONISAMIDE 50 MG CAP (ZONEGRAN) PO (07:50)
[2017-02-25] MEDS: ASPIRIN 81 MG ENTERIC TAB PO (07:50)
[2017-02-25] MEDS: OMEPRAZOLE 20 MG CAP PO (07:50)
[2017-02-25] MEDS: TORSEMIDE 5MG TABLET PO ×2 (07:50→17:41)
[2017-02-25] MEDS: MULTIVITAMINS/MINERALS THERAP 1 TAB PO (07:50)
[2017-02-25] MEDS: APIXABAN 5 MG TAB (ELIQUIS) PO ×2 (07:50→23:38)
[2017-02-25] MEDS: PRAVASTATIN 20 MG TAB PO (07:51)
[2017-02-25] MEDS: CYANOCOBALAMIN 500 MCG TAB PO (07:51)
[2017-02-25] MEDS: LACTOBACILLUS ACIDOPHILUS CAP (BACID) PO ×4 (07:51→23:38)
[2017-02-25] MEDS: DIGOXIN 0.125 MG TAB PO (07:51)
[2017-02-25] MEDS: ALLOPURINOL 300 MG TAB PO (07:51)
[2017-02-25] MEDS: guaiFENesin ER 600 MG TAB PO ×2 (07:51→23:39)
[2017-02-25] MEDS: predniSONE 20 MG TAB PO (07:51)
[2017-02-25] MEDS: GABAPENTIN 300 MG CAP PO ×3 (07:52→23:39)
[2017-02-25] MEDS: METOPROLOL TART 50 MG TAB PO ×2 (07:52→23:39)
[2017-02-25] MEDS: MAGNESIUM OXIDE 400 MG TAB (MAG-OX) PO (07:52)
[2017-02-25] MEDS: LEVEMIR (INSULIN DETEMIR) 1 UNITS/0.01ML SC ×2 (07:53→21:00)
[2017-02-25] MEDS: FERROUS SULFATE 325MG TAB PO (07:53)
[2017-02-25] MEDS: POTASSIUM CHLORIDE 10 MEQ SR TABLET PO ×2 (08:42→23:39)
[2017-02-25] MEDS: VANCOMYCIN HCL 1,000 MG, VIAL MATE ADAPTER 1 EACH in D5W 250 ML IV ×2 (10:06→22:00)
[2017-02-25 11:42] LABS: BEDSIDE GLUCOSE 190 MG/DL (80-115)
[2017-02-25 16:58] LABS: BEDSIDE GLUCOSE 211 MG/DL (80-115)
[2017-02-25 21:35] LABS: BEDSIDE GLUCOSE 175 MG/DL (80-115)
[2017-02-25] MEDS: SERTRALINE HCL 25 MG TABLET PO (23:38)
[2017-02-26] MEDS: ZONISAMIDE 50 MG CAP (ZONEGRAN) PO ×3 (01:03→22:20)
[2017-02-26] MEDS: IPRATROPIUM 0.5MG/ALBUTEROL 2.5MG INH SOL UD 3ML (DUONEB)(J7620) NEB ×6 (04:00→23:37)
[2017-02-26] MEDS: ACETAMINOPHEN TAB 650MG DOSE (2X325MG) PO (04:28)
[2017-02-26 06:47] LABS: HEMATOCRIT 33.5 % (42.0-52.0); HEMOGLOBIN 10.4 g/dl (14.0-18.0); MEAN CORPUSCULAR VOLUME 103.1 fl (80.0-96.0); PLATELET COUNT, AUTOMATED 138 10^3/uL (150-450); RED BLOOD COUNT 3.25 10^6/uL (4.30-6.10); RED CELL DISTRIBUTION WIDTH 18.4 % (11.5-14.5); WHITE BLOOD COUNT 7.6 10^3/uL (4.0-10.0)
[2017-02-26 06:52] LABS: ADD MANUAL DIFFER YES; DIFF SLIDE NUMBER 21; POS COUNT POS FLAG; POSITIVE MORPH POS FLAG
[2017-02-26 07:10] LABS: ANION GAP 5 MEQ/L (8-16); BLOOD UREA NITROGEN 36 MG/DL (7-18); CARBON DIOXIDE LEVEL 38 MEQ/L (21-32); CHLORIDE LEVEL 95 MEQ/L (98-107); CREATININE FOR GFR 1.21 MG/DL (0.70-1.30); GLOMERULAR FILTRATION RATE > 60.0 (>49); GLUCOSE, FASTING 87 MG/DL (80-110); MAGNESIUM LEVEL 2.1 MG/DL (1.8-2.4); POTASSIUM SERUM 3.6 MEQ/L (3.5-5.1); SODIUM LEVEL 138 MEQ/L (136-145)
[2017-02-26] MEDS: HumaLOG INSULIN (NovoLOG) PER UNIT SC ×4 (07:30→20:47)
[2017-02-26 07:45] LABS: LYMPHOCYTES 10 % (16-52); METAMYELOCYTES 1 % (0-0); MONOCYTES 2 % (0-8); MYELOCYTES 3 % (0-0); NEUTROPHILS 84 % (35-75)
[2017-02-26 07:46] LABS: ANISOCYTOSIS 1+; POIKILOCYTOSIS 1+; POLYCHROMASIA 1+
[2017-02-26 07:56] LABS: PLATELET ESTIMATE DECREASED (NORMAL)
[2017-02-26] MEDS: POTASSIUM CHLORIDE 10 MEQ SR TABLET PO (08:09)
[2017-02-26] MEDS: guaiFENesin ER 600 MG TAB PO ×2 (08:09→22:20)
[2017-02-26] MEDS: GABAPENTIN 300 MG CAP PO ×3 (08:10→22:19)
[2017-02-26] MEDS: OMEPRAZOLE 20 MG CAP PO (08:10)
[2017-02-26] MEDS: predniSONE 20 MG TAB PO (08:10)
[2017-02-26] MEDS: PRAVASTATIN 20 MG TAB PO (08:10)
[2017-02-26] MEDS: rOPINIRole 1MG TAB PO ×2 (08:10→22:20)
[2017-02-26] MEDS: LACTOBACILLUS ACIDOPHILUS CAP (BACID) PO ×4 (08:10→22:21)
[2017-02-26] MEDS: APIXABAN 5 MG TAB (ELIQUIS) PO ×2 (08:11→22:21)
[2017-02-26] MEDS: CYANOCOBALAMIN 500 MCG TAB PO (08:11)
[2017-02-26] MEDS: ALLOPURINOL 300 MG TAB PO (08:11)
[2017-02-26] MEDS: FERROUS SULFATE 325MG TAB PO (08:11)
[2017-02-26] MEDS: ASPIRIN 81 MG ENTERIC TAB PO (08:11)
[2017-02-26] MEDS: DIGOXIN 0.125 MG TAB PO (08:12)
[2017-02-26] MEDS: MAGNESIUM OXIDE 400 MG TAB (MAG-OX) PO (08:13)
[2017-02-26] MEDS: MULTIVITAMINS/MINERALS THERAP 1 TAB PO (08:13)
[2017-02-26] MEDS: METOPROLOL TART 50 MG TAB PO ×2 (08:13→22:20)
[2017-02-26] MEDS: NYSTATIN 500,000 U/5 ML SUSP UDC SS ×3 (08:13→22:19)
[2017-02-26] MEDS: LEVEMIR (INSULIN DETEMIR) 1 UNITS/0.01ML SC ×2 (08:14→21:00)
[2017-02-26] MEDS: TORSEMIDE 5MG TABLET PO (08:40)
[2017-02-26] MEDS: VANCOMYCIN HCL 1,000 MG, VIAL MATE ADAPTER 1 EACH in D5W 250 ML IV ×2 (09:56→23:07)
[2017-02-26 12:02] LABS: ABG pH (ARTERIAL) 7.434 UNITS (7.350-7.450)
[2017-02-26 12:03] LABS: ABG BASE EXCESS 11.7 (-2.0-2.0); ABG HCO3 37.9 MEQ/L (22.0-26.0); ABG O2 SATURATION 95.5 % (95.0-99.0); ABG PARTIAL PRESSURE CO2 57.9 mmHg (35.0-45.0); ABG PARTIAL PRESSURE O2 79.6 mmHg (75.0-100.0); ABG STANDARD HCO3 35.4 MEQ/L (22.0-26.0); ABG TOTAL CO2 39.7 MEQ/L (23.0-31.0)
[2017-02-26 12:05] LABS: BEDSIDE GLUCOSE 170 MG/DL (80-115)
[2017-02-26 16:40] LABS: BEDSIDE GLUCOSE 236 MG/DL (80-115)
[2017-02-26 20:24] LABS: BEDSIDE GLUCOSE 228 MG/DL (80-115)
[2017-02-26] MEDS: SERTRALINE HCL 25 MG TABLET PO (22:20)
[2017-02-26] MEDS: methylPREDNISolone INJ 125 MG/2 ML VIAL (J2930) IV (22:21)
[2017-02-27 06:56] LABS: BASO % 0.3 % (0.0-1.0); EOS % 0.1 % (0.0-3.0); HEMATOCRIT 33.9 % (42.0-52.0); HEMOGLOBIN 10.5 g/dl (14.0-18.0); IMMATURE GRANULOCYTE # 0.5 10^3/uL (0-0); IMMATURE GRANULOCYTE % 4.2 % (0-0); LYMPH # 0.5 10^3/uL (1.5-4.5); LYMPH % 3.8 % (24.0-44.0); MEAN CORPUSCULAR HEMOGLOBIN 31.8 pg (27.0-33.0); MEAN CORPUSCULAR VOLUME 102.7 fl (80.0-96.0); MONO # 0.2 10^3/uL (0.0-0.8); NEUTROPHILS # 10.6 10^3/uL (1.8-7.7); NEUTROPHILS % 89.6 % (36.0-66.0); PLATELET COUNT, AUTOMATED 132 10^3/uL (150-450); RED CELL DISTRIBUTION WIDTH 18.3 % (11.5-14.5); WHITE BLOOD COUNT 11.8 10^3/uL (4.0-10.0)
[2017-02-27 07:10] LABS: ANION GAP 9 MEQ/L (8-16); BLOOD UREA NITROGEN 34 MG/DL (7-18); CALCIUM LEVEL 9.4 MG/DL (8.8-10.2); CARBON DIOXIDE LEVEL 35 MEQ/L (21-32); CHLORIDE LEVEL 93 MEQ/L (98-107); CREATININE FOR GFR 1.08 MG/DL (0.70-1.30); GLOMERULAR FILTRATION RATE > 60.0 (>49); GLUCOSE, FASTING 205 MG/DL (80-110); MAGNESIUM LEVEL 2.2 MG/DL (1.8-2.4); POTASSIUM SERUM 4.6 MEQ/L (3.5-5.1); SODIUM LEVEL 137 MEQ/L (136-145)
[2017-02-27] MEDS: IPRATROPIUM 0.5MG/ALBUTEROL 2.5MG INH SOL UD 3ML (DUONEB)(J7620) NEB ×5 (08:36→23:08)
[2017-02-27] MEDS: GABAPENTIN 300 MG CAP PO ×3 (08:45→22:52)
[2017-02-27] MEDS: NYSTATIN 500,000 U/5 ML SUSP UDC SS ×3 (08:45→22:50)
[2017-02-27] MEDS: ZONISAMIDE 50 MG CAP (ZONEGRAN) PO ×2 (08:45→22:56)
[2017-02-27] MEDS: PRAVASTATIN 20 MG TAB PO (08:45)
[2017-02-27] MEDS: ASPIRIN 81 MG ENTERIC TAB PO (08:45)
[2017-02-27] MEDS: FERROUS SULFATE 325MG TAB PO (08:45)
[2017-02-27] MEDS: MULTIVITAMINS/MINERALS THERAP 1 TAB PO (08:45)
[2017-02-27] MEDS: guaiFENesin ER 600 MG TAB PO ×2 (08:46→22:53)
[2017-02-27] MEDS: rOPINIRole 1MG TAB PO ×2 (08:46→22:52)
[2017-02-27] MEDS: LACTOBACILLUS ACIDOPHILUS CAP (BACID) PO ×4 (08:46→22:52)
[2017-02-27] MEDS: MAGNESIUM OXIDE 400 MG TAB (MAG-OX) PO (08:46)
[2017-02-27] MEDS: CYANOCOBALAMIN 500 MCG TAB PO (08:46)
[2017-02-27] MEDS: OMEPRAZOLE 20 MG CAP PO (08:46)
[2017-02-27] MEDS: ALLOPURINOL 300 MG TAB PO (08:46)
[2017-02-27] MEDS: methylPREDNISolone INJ 125 MG/2 ML VIAL (J2930) IV ×2 (08:47→22:50)
[2017-02-27] MEDS: APIXABAN 5 MG TAB (ELIQUIS) PO ×2 (08:47→22:56)
[2017-02-27] MEDS: HumaLOG INSULIN (NovoLOG) PER UNIT SC ×4 (08:48→22:51)
[2017-02-27] MEDS: DIGOXIN 0.125 MG TAB PO (08:51)
[2017-02-27] MEDS: METOPROLOL TART 50 MG TAB PO ×2 (08:51→22:53)
[2017-02-27] MEDS: LEVEMIR (INSULIN DETEMIR) 1 UNITS/0.01ML SC ×2 (08:52→21:00)
[2017-02-27] MEDS: VANCOMYCIN HCL 1,000 MG, VIAL MATE ADAPTER 1 EACH in D5W 250 ML IV (10:59)
[2017-02-27 13:18] LABS: BEDSIDE GLUCOSE 339 MG/DL (80-115)
[2017-02-27] MEDS: TORSEMIDE 10 MG TABLET PO (16:21)
[2017-02-27 17:51] LABS: BEDSIDE GLUCOSE 347 MG/DL (80-115)
[2017-02-27 20:57] LABS: BEDSIDE GLUCOSE 369 MG/DL (80-115)
[2017-02-27] MEDS: SERTRALINE HCL 25 MG TABLET PO (22:53)
[2017-02-28] MEDS: methylPREDNISolone INJ 125 MG/2 ML VIAL (J2930) IV ×3 (01:00→22:27)
[2017-02-28] MEDS: IPRATROPIUM 0.5MG/ALBUTEROL 2.5MG INH SOL UD 3ML (DUONEB)(J7620) NEB ×6 (03:50→23:44)
[2017-02-28 05:53] LABS: ABG BASE EXCESS 8.7 (-2.0-2.0); ABG HCO3 34.4 MEQ/L (22.0-26.0); ABG O2 SATURATION 94.7 % (95.0-99.0); ABG PARTIAL PRESSURE CO2 53.1 mmHg (35.0-45.0); ABG PARTIAL PRESSURE O2 73.6 mmHg (75.0-100.0); ABG STANDARD HCO3 32.4 MEQ/L (22.0-26.0); ABG pH (ARTERIAL) 7.429 UNITS (7.350-7.450)
[2017-02-28] MEDS: TORSEMIDE 5MG TABLET PO (09:00)
[2017-02-28] MEDS: LEVEMIR (INSULIN DETEMIR) 1 UNITS/0.01ML SC ×2 (09:00→22:29)
[2017-02-28] MEDS: DIGOXIN 0.125 MG TAB PO (09:14)
[2017-02-28] MEDS: GABAPENTIN 300 MG CAP PO ×3 (09:15→22:29)
[2017-02-28] MEDS: MULTIVITAMINS/MINERALS THERAP 1 TAB PO (09:15)
[2017-02-28] MEDS: guaiFENesin ER 600 MG TAB PO ×2 (09:15→22:30)
[2017-02-28] MEDS: ASPIRIN 81 MG ENTERIC TAB PO (09:15)
[2017-02-28] MEDS: rOPINIRole 1MG TAB PO ×2 (09:15→22:29)
[2017-02-28] MEDS: OMEPRAZOLE 20 MG CAP PO (09:15)
[2017-02-28] MEDS: APIXABAN 5 MG TAB (ELIQUIS) PO ×2 (09:15→22:30)
[2017-02-28] MEDS: ALLOPURINOL 300 MG TAB PO (09:15)
[2017-02-28] MEDS: PRAVASTATIN 20 MG TAB PO (09:15)
[2017-02-28] MEDS: FERROUS SULFATE 325MG TAB PO (09:15)
[2017-02-28] MEDS: MAGNESIUM OXIDE 400 MG TAB (MAG-OX) PO (09:15)
[2017-02-28] MEDS: METOPROLOL TART 50 MG TAB PO ×2 (09:16→22:30)
[2017-02-28] MEDS: CYANOCOBALAMIN 500 MCG TAB PO (09:16)
[2017-02-28] MEDS: LACTOBACILLUS ACIDOPHILUS CAP (BACID) PO ×4 (09:16→22:29)
[2017-02-28] MEDS: HumaLOG INSULIN (NovoLOG) PER UNIT SC ×4 (09:17→22:28)
[2017-02-28] MEDS: ZONISAMIDE 50 MG CAP (ZONEGRAN) PO ×2 (09:23→22:29)
[2017-02-28 11:44] LABS: BEDSIDE GLUCOSE 278 MG/DL (80-115)
[2017-02-28 17:08] LABS: BEDSIDE GLUCOSE 267 MG/DL (80-115)
[2017-02-28 21:10] LABS: BEDSIDE GLUCOSE 352 MG/DL (80-115)
[2017-02-28] MEDS: SERTRALINE HCL 25 MG TABLET PO (22:30)
[2017-03-01] MEDS: IPRATROPIUM 0.5MG/ALBUTEROL 2.5MG INH SOL UD 3ML (DUONEB)(J7620) NEB ×6 (02:44→23:17)
[2017-03-01 07:01] LABS: BEDSIDE GLUCOSE 185 MG/DL (80-115)
[2017-03-01] MEDS: LACTOBACILLUS ACIDOPHILUS CAP (BACID) PO ×4 (08:26→20:52)
[2017-03-01] MEDS: ZONISAMIDE 50 MG CAP (ZONEGRAN) PO ×2 (08:26→20:52)
[2017-03-01] MEDS: TORSEMIDE 5MG TABLET PO (08:26)
[2017-03-01] MEDS: METOPROLOL TART 50 MG TAB PO ×2 (08:26→20:51)
[2017-03-01] MEDS: rOPINIRole 1MG TAB PO ×2 (08:26→20:52)
[2017-03-01] MEDS: GABAPENTIN 300 MG CAP PO ×3 (08:26→20:52)
[2017-03-01] MEDS: MULTIVITAMINS/MINERALS THERAP 1 TAB PO (08:26)
[2017-03-01] MEDS: ALLOPURINOL 300 MG TAB PO (08:27)
[2017-03-01] MEDS: CYANOCOBALAMIN 500 MCG TAB PO (08:27)
[2017-03-01] MEDS: FERROUS SULFATE 325MG TAB PO (08:27)
[2017-03-01] MEDS: PRAVASTATIN 20 MG TAB PO (08:27)
[2017-03-01] MEDS: guaiFENesin ER 600 MG TAB PO ×2 (08:27→20:52)
[2017-03-01] MEDS: MAGNESIUM OXIDE 400 MG TAB (MAG-OX) PO (08:27)
[2017-03-01] MEDS: OMEPRAZOLE 20 MG CAP PO (08:27)
[2017-03-01] MEDS: ASPIRIN 81 MG ENTERIC TAB PO (08:27)
[2017-03-01] MEDS: DIGOXIN 0.125 MG TAB PO (08:27)
[2017-03-01] MEDS: methylPREDNISolone INJ 125 MG/2 ML VIAL (J2930) IV (08:28)
[2017-03-01] MEDS: LEVEMIR (INSULIN DETEMIR) 1 UNITS/0.01ML SC ×2 (08:28→20:53)
[2017-03-01] MEDS: HumaLOG INSULIN (NovoLOG) PER UNIT SC ×4 (08:28→20:53)
[2017-03-01] MEDS: APIXABAN 5 MG TAB (ELIQUIS) PO ×2 (08:28→20:51)
[2017-03-01 12:14] LABS: BEDSIDE GLUCOSE 284 MG/DL (80-115)
[2017-03-01 17:02] LABS: BEDSIDE GLUCOSE 325 MG/DL (80-115)
[2017-03-01] MEDS: SERTRALINE HCL 25 MG TABLET PO (20:52)
[2017-03-01] MEDS: predniSONE 20 MG TAB PO (20:52)
[2017-03-01 21:04] LABS: BEDSIDE GLUCOSE 328 MG/DL (80-115)
[2017-03-02] MEDS: IPRATROPIUM 0.5MG/ALBUTEROL 2.5MG INH SOL UD 3ML (DUONEB)(J7620) NEB ×5 (03:07→21:19)
[2017-03-02 06:24] LABS: BEDSIDE GLUCOSE 210 MG/DL (80-115)
[2017-03-02] MEDS: TORSEMIDE 5MG TABLET PO (07:54)
[2017-03-02] MEDS: LACTOBACILLUS ACIDOPHILUS CAP (BACID) PO ×4 (07:54→21:16)
[2017-03-02] MEDS: HumaLOG INSULIN (NovoLOG) PER UNIT SC ×4 (07:54→21:17)
[2017-03-02] MEDS: predniSONE 20 MG TAB PO ×2 (07:55→21:16)
[2017-03-02] MEDS: rOPINIRole 1MG TAB PO ×2 (07:55→21:15)
[2017-03-02] MEDS: DIGOXIN 0.125 MG TAB PO (07:55)
[2017-03-02] MEDS: CYANOCOBALAMIN 500 MCG TAB PO (07:55)
[2017-03-02] MEDS: ALLOPURINOL 300 MG TAB PO (07:55)
[2017-03-02] MEDS: guaiFENesin ER 600 MG TAB PO ×2 (07:56→21:16)
[2017-03-02] MEDS: FERROUS SULFATE 325MG TAB PO (07:56)
[2017-03-02] MEDS: ASPIRIN 81 MG ENTERIC TAB PO (07:56)
[2017-03-02] MEDS: MAGNESIUM OXIDE 400 MG TAB (MAG-OX) PO (07:56)
[2017-03-02] MEDS: GABAPENTIN 300 MG CAP PO ×3 (07:56→21:16)
[2017-03-02] MEDS: PRAVASTATIN 20 MG TAB PO (07:56)
[2017-03-02] MEDS: APIXABAN 5 MG TAB (ELIQUIS) PO ×2 (07:56→21:15)
[2017-03-02] MEDS: ZONISAMIDE 50 MG CAP (ZONEGRAN) PO ×2 (07:57→21:15)
[2017-03-02] MEDS: METOPROLOL TART 50 MG TAB PO ×2 (07:57→21:16)
[2017-03-02] MEDS: MULTIVITAMINS/MINERALS THERAP 1 TAB PO (07:57)
[2017-03-02] MEDS: OMEPRAZOLE 20 MG CAP PO (07:57)
[2017-03-02] MEDS: LEVEMIR (INSULIN DETEMIR) 1 UNITS/0.01ML SC ×2 (07:58→21:17)
[2017-03-02 11:51] LABS: BEDSIDE GLUCOSE 243 MG/DL (80-115)
[2017-03-02 16:50] LABS: BEDSIDE GLUCOSE 339 MG/DL (80-115)
[2017-03-02] MEDS: SERTRALINE HCL 25 MG TABLET PO (21:15)
[2017-03-02 21:32] LABS: BEDSIDE GLUCOSE 293 MG/DL (80-115)
[2017-03-03] MEDS: IPRATROPIUM 0.5MG/ALBUTEROL 2.5MG INH SOL UD 3ML (DUONEB)(J7620) NEB ×3 (03:14→07:17)
[2017-03-03 05:58] LABS: BEDSIDE GLUCOSE 240 MG/DL (80-115)
[2017-03-03 06:54] LABS: HEMATOCRIT 34.6 % (42.0-52.0); HEMOGLOBIN 11.1 g/dl (14.0-18.0); MEAN CORPUSCULAR HEMOGLOBIN 32.6 pg (27.0-33.0); MEAN CORPUSCULAR HGB CONC 32.1 g/dl (32.0-36.5); MEAN CORPUSCULAR VOLUME 101.5 fl (80.0-96.0); PLATELET COUNT, AUTOMATED 153 10^3/uL (150-450); RED BLOOD COUNT 3.41 10^6/uL (4.30-6.10); RED CELL DISTRIBUTION WIDTH 17.4 % (11.5-14.5); WHITE BLOOD COUNT 10.7 10^3/uL (4.0-10.0)
[2017-03-03 07:11] LABS: ANION GAP 6 MEQ/L (8-16); BLOOD UREA NITROGEN 35 MG/DL (7-18); CARBON DIOXIDE LEVEL 32 MEQ/L (21-32); CHLORIDE LEVEL 99 MEQ/L (98-107); CREATININE FOR GFR 1.13 MG/DL (0.70-1.30); GLOMERULAR FILTRATION RATE > 60.0 (>49); GLUCOSE, FASTING 238 MG/DL (70-100); POTASSIUM SERUM 4.4 MEQ/L (3.5-5.1); SODIUM LEVEL 137 MEQ/L (136-145)
[2017-03-03] MEDS: HumaLOG INSULIN (NovoLOG) PER UNIT SC (07:42)
[2017-03-03] MEDS: LACTOBACILLUS ACIDOPHILUS CAP (BACID) PO (07:42)
[2017-03-03] MEDS: ALLOPURINOL 300 MG TAB PO (07:42)
[2017-03-03] MEDS: predniSONE 20 MG TAB PO (07:42)
[2017-03-03] MEDS: CYANOCOBALAMIN 500 MCG TAB PO (07:42)
[2017-03-03] MEDS: MAGNESIUM OXIDE 400 MG TAB (MAG-OX) PO (07:43)
[2017-03-03] MEDS: PRAVASTATIN 20 MG TAB PO (07:43)
[2017-03-03] MEDS: DIGOXIN 0.125 MG TAB PO (07:43)
[2017-03-03] MEDS: rOPINIRole 1MG TAB PO (07:43)
[2017-03-03] MEDS: ASPIRIN 81 MG ENTERIC TAB PO (07:43)
[2017-03-03] MEDS: GABAPENTIN 300 MG CAP PO (07:43)
[2017-03-03] MEDS: OMEPRAZOLE 20 MG CAP PO (07:43)
[2017-03-03] MEDS: METOPROLOL TART 50 MG TAB PO (07:44)
[2017-03-03] MEDS: TORSEMIDE 5MG TABLET PO (07:44)
[2017-03-03] MEDS: guaiFENesin ER 600 MG TAB PO (07:44)
[2017-03-03] MEDS: APIXABAN 5 MG TAB (ELIQUIS) PO (07:44)
[2017-03-03] MEDS: MULTIVITAMINS/MINERALS THERAP 1 TAB PO (07:44)
[2017-03-03] MEDS: ZONISAMIDE 50 MG CAP (ZONEGRAN) PO (07:44)
[2017-03-03] MEDS: FERROUS SULFATE 325MG TAB PO (07:44)
[2017-03-03] MEDS: LEVEMIR (INSULIN DETEMIR) 1 UNITS/0.01ML SC (07:45)
[2017-03-03 14:58] LABS: BEDSIDE GLUCOSE 256 MG/DL (80-115)
== END 2017-03-03 12:23 | disposition home or self-care (01) | DRG 193 ==
LOC: M PCU 02-22 14:40 → M MSPAV 02-24 16:30 → M ED 13:54 → M ED INP 19:32
DX: J10.1 Influenza due to other identified influenza virus with other respiratory manifestations (principal); I50.33 Acute on chronic diastolic (congestive) heart failure; J96.01 Acute respiratory failure with hypoxia; E87.2 Acidosis; E27.40 Unspecified adrenocortical insufficiency; N17.9 Acute kidney failure, unspecified; B37.0 Candidal stomatitis; Z68.41 Body mass index [BMI] 40.0-44.9, adult; J44.1 Chronic obstructive pulmonary disease with (acute) exacerbation; I48.91 Unspecified atrial fibrillation; N18.3 Chronic kidney disease, stage 3 (moderate); G25.81 Restless legs syndrome; E11.22 Type 2 diabetes mellitus with diabetic chronic kidney disease; M10.9 Gout, unspecified; F32.9 Major depressive disorder, single episode, unspecified; G47.33 Obstructive sleep apnea (adult) (pediatric); E66.01 Morbid (severe) obesity due to excess calories; Z79.01 Long term (current) use of anticoagulants; Z85.118 Personal history of other malignant neoplasm of bronchus and lung; Z90.2 Acquired absence of lung [part of]; Z90.5 Acquired absence of kidney; Z87.891 Personal history of nicotine dependence; Z79.82 Long term (current) use of aspirin; Z79.4 Long term (current) use of insulin; Z79.52 Long term (current) use of systemic steroids; Z79.899 Other long term (current) drug therapy; Z88.8 Allergy status to other drugs, medicaments and biological substances

== ENCOUNTER 2017-03-08 10:02 | Inpatient (IN) | payer MEDICARE, MEDICAID ==
[2017-03-08] MEDS: methylPREDNISolone INJ 125 MG/2 ML VIAL (J2930) IV ×2 (11:48→21:22)
[2017-03-08] MEDS: IPRATROPIUM 0.5MG/ALBUTEROL 2.5MG INH SOL UD 3ML (DUONEB)(J7620) NEB ×5 (12:25→23:46)
[2017-03-08 12:30] LABS: ABG BASE EXCESS 7.6 (-2.0-2.0); ABG HCO3 32.9 MEQ/L (22.0-26.0); ABG O2 SATURATION 95.1 % (95.0-99.0); ABG PARTIAL PRESSURE CO2 48.8 mmHg (35.0-45.0); ABG STANDARD HCO3 31.3 MEQ/L (22.0-26.0); ABG TOTAL CO2 34.3 MEQ/L (23.0-31.0); ABG pH (ARTERIAL) 7.446 UNITS (7.350-7.450)
[2017-03-08 13:28] LABS: BASO % 0.1 % (0.0-1.0); EOS % 0.1 % (0.0-3.0); HEMATOCRIT 38.9 % (42.0-52.0); HEMOGLOBIN 12.3 g/dl (14.0-18.0); IMMATURE GRANULOCYTE # 0.2 10^3/uL (0-0); IMMATURE GRANULOCYTE % 1.4 % (0-0); LYMPH # 0.8 10^3/uL (1.5-4.5); LYMPH % 5.8 % (24.0-44.0); MEAN CORPUSCULAR HEMOGLOBIN 32.4 pg (27.0-33.0); MEAN CORPUSCULAR HGB CONC 31.6 g/dl (32.0-36.5); MEAN CORPUSCULAR VOLUME 102.4 fl (80.0-96.0); MONO # 0.3 10^3/uL (0.0-0.8); MONO % 2.4 % (0.0-5.0); NEUTROPHILS # 12.5 10^3/uL (1.8-7.7); NEUTROPHILS % 90.2 % (36.0-66.0); PLATELET COUNT, AUTOMATED 140 10^3/uL (150-450); RED CELL DISTRIBUTION WIDTH 17.2 % (11.5-14.5); WHITE BLOOD COUNT 13.9 10^3/uL (4.0-10.0)
[2017-03-08 13:54] LABS: ANION GAP 9 MEQ/L (8-16); BLOOD UREA NITROGEN 33 MG/DL (7-18); CALCIUM LEVEL 8.7 MG/DL (8.8-10.2); CARBON DIOXIDE LEVEL 32 MEQ/L (21-32); CHLORIDE LEVEL 98 MEQ/L (98-107); CPK CREATINE PHOSPHOKINASE 27 U/L (39-308); CREATININE FOR GFR 1.32 MG/DL (0.70-1.30); GLOMERULAR FILTRATION RATE 58.1 (>49); GLUCOSE, FASTING 197 MG/DL (70-100); POTASSIUM SERUM 4.1 MEQ/L (3.5-5.1); SODIUM LEVEL 139 MEQ/L (136-145); TROPONIN I 0.15 NG/ML (< 0.10)
[2017-03-08 13:59] LABS: CK-MB VALUE MASS 1.8 NG/ML (0.0-3.6); MB/CK RELATIVE INDEX 6.66 (< OR =4); NT-PRO BNP 711 PG/ML (<125)
[2017-03-08 14:21] LABS: LACTIC ACID SEPSIS PROTOCOL 2.8 MMOL/L (0.4-2.0)
[2017-03-08] MEDS ORDERED: ONDANSETRON 4MG/2ML VIAL (J2405) IV (15:00)
[2017-03-08] MEDS ORDERED: IPRATROPIUM 0.5MG/ALBUTEROL 2.5MG INH SOL UD 3ML (DUONEB)(J7620) NEB (15:00)
[2017-03-08] MEDS ORDERED: ACETAMINOPHEN TAB 650MG DOSE (2X325MG) PO (15:00)
[2017-03-08] MEDS ORDERED: DEXTROSE 50% 50 ML SYRINGE IV (17:00)
[2017-03-08] MEDS ORDERED: GLUCAGON FOR INJ 1 MG VIAL (J1610) SC (17:00)
[2017-03-08] MEDS ORDERED: GLUCOSE 4 GM CHEW TABLET PO (17:00)
[2017-03-08] MEDS: HumaLOG INSULIN (NovoLOG) PER UNIT SC ×2 (17:25→21:23)
[2017-03-08] MEDS ORDERED: hydrOXYzine 50 MG TAB PO (20:15)
[2017-03-08 20:52] LABS: BEDSIDE GLUCOSE 457 MG/DL (80-115)
[2017-03-08] MEDS ORDERED: DOCUSATE SODIUM 100 MG CAP PO (21:00)
[2017-03-08] MEDS: rOPINIRole 1MG TAB PO (22:33)
[2017-03-08] MEDS: SERTRALINE HCL 25 MG TABLET PO (22:33)
[2017-03-08] MEDS: GABAPENTIN 300 MG CAP PO (22:33)
[2017-03-08] MEDS: LACTOBACILLUS ACIDOPHILUS CAP (BACID) PO (22:33)
[2017-03-08] MEDS: NYSTATIN 500,000 U/5 ML SUSP UDC SS (22:34)
[2017-03-08] MEDS: METOPROLOL TART 50 MG TAB PO (22:34)
[2017-03-08] MEDS: guaiFENesin ER 600 MG TAB PO (22:34)
[2017-03-08] MEDS: APIXABAN 5 MG TAB (ELIQUIS) PO (22:34)
[2017-03-08] MEDS: LEVEMIR (INSULIN DETEMIR) 1 UNITS/0.01ML SC (22:35)
[2017-03-09] MEDS: ZONISAMIDE 50 MG CAP (ZONEGRAN) PO ×3 (00:09→20:41)
[2017-03-09 00:52] LABS: TROPONIN I 0.09 NG/ML (< 0.10)
[2017-03-09] MEDS: methylPREDNISolone INJ 125 MG/2 ML VIAL (J2930) IV ×3 (03:33→20:19)
[2017-03-09 07:11] LABS: BEDSIDE GLUCOSE 304 MG/DL (80-115)
[2017-03-09] MEDS: IPRATROPIUM 0.5MG/ALBUTEROL 2.5MG INH SOL UD 3ML (DUONEB)(J7620) NEB ×3 (07:20→23:39)
[2017-03-09] MEDS: SODIUM CHLORIDE 0.9% 3ML NEB SOLUTION FOR INHALATION INH ×2 (08:00→20:00)
[2017-03-09] MEDS: LEVEMIR (INSULIN DETEMIR) 1 UNITS/0.01ML SC ×2 (08:09→20:18)
[2017-03-09] MEDS: rOPINIRole 1MG TAB PO ×2 (08:10→20:18)
[2017-03-09] MEDS: TORSEMIDE 5MG TABLET PO (08:10)
[2017-03-09] MEDS: HumaLOG INSULIN (NovoLOG) PER UNIT SC ×4 (08:10→20:18)
[2017-03-09] MEDS: METOPROLOL TART 50 MG TAB PO ×2 (08:10→20:19)
[2017-03-09] MEDS: CYANOCOBALAMIN 500 MCG TAB PO (08:10)
[2017-03-09] MEDS: FIBER-CON 625 MG TAB PO (08:10)
[2017-03-09] MEDS: GABAPENTIN 300 MG CAP PO ×3 (08:10→20:18)
[2017-03-09] MEDS: OMEPRAZOLE 20 MG CAP PO (08:10)
[2017-03-09] MEDS: LACTOBACILLUS ACIDOPHILUS CAP (BACID) PO ×4 (08:10→20:18)
[2017-03-09] MEDS: ALLOPURINOL 300 MG TAB PO (08:10)
[2017-03-09] MEDS: NYSTATIN 500,000 U/5 ML SUSP UDC SS ×2 (08:10→20:18)
[2017-03-09] MEDS: MULTIVITAMINS/MINERALS THERAP 1 TAB PO (08:10)
[2017-03-09] MEDS: FERROUS SULFATE 325MG TAB PO (08:11)
[2017-03-09] MEDS: ASPIRIN 81 MG ENTERIC TAB PO (08:11)
[2017-03-09] MEDS: PRAVASTATIN 20 MG TAB PO (08:11)
[2017-03-09] MEDS: DIGOXIN 0.125 MG TAB PO (08:11)
[2017-03-09] MEDS: MAGNESIUM OXIDE 400 MG TAB (MAG-OX) PO (08:11)
[2017-03-09] MEDS: guaiFENesin ER 600 MG TAB PO ×2 (08:11→20:19)
[2017-03-09] MEDS: APIXABAN 5 MG TAB (ELIQUIS) PO ×2 (08:11→20:19)
[2017-03-09 08:20] LABS: HEMATOCRIT 36.5 % (42.0-52.0); HEMOGLOBIN 11.9 g/dl (14.0-18.0); MEAN CORPUSCULAR HEMOGLOBIN 32.6 pg (27.0-33.0); MEAN CORPUSCULAR HGB CONC 32.6 g/dl (32.0-36.5); PLATELET COUNT, AUTOMATED 147 10^3/uL (150-450); RED BLOOD COUNT 3.65 10^6/uL (4.30-6.10); RED CELL DISTRIBUTION WIDTH 16.9 % (11.5-14.5); WHITE BLOOD COUNT 11.9 10^3/uL (4.0-10.0)
[2017-03-09 08:48] LABS: ANION GAP 11 MEQ/L (8-16); BLOOD UREA NITROGEN 37 MG/DL (7-18); CALCIUM LEVEL 8.7 MG/DL (8.8-10.2); CARBON DIOXIDE LEVEL 28 MEQ/L (21-32); CHLORIDE LEVEL 98 MEQ/L (98-107); CREATININE FOR GFR 1.23 MG/DL (0.70-1.30); GLOMERULAR FILTRATION RATE > 60.0 (>49); GLUCOSE, FASTING 294 MG/DL (70-100); SODIUM LEVEL 137 MEQ/L (136-145); TROPONIN I 0.06 NG/ML (< 0.10)
[2017-03-09 11:45] LABS: BEDSIDE GLUCOSE 330 MG/DL (80-115)
[2017-03-09] MEDS: CEFTAROLINE FOSAMIL 400 MG in APPROPRIATE DILUENT 1 EA IV (13:49)
[2017-03-09 14:29] LABS: APPEARANCE, URINE CLEAR (CLEAR); BACTERIA, URINE AUTO NEGATIVE (NEGATIVE); BILIRUBIN, URINE AUTO NEGATIVE (NEGATIVE); BLOOD, URINE BLOOD 3+ (NEGATIVE); COLOR, URINE YELLOW (YELLOW); GLUCOSE, URINE (UA) AUTO 2+ mg/dL (NEGATIVE); KETONE, URINE AUTO NEGATIVE (NEGATIVE); LEUKOCYTE ESTERASE, URINE AUTO NEGATIVE (NEGATIVE); NITRITE, URINE AUTO NEGATIVE (NEGATIVE); PROTEIN, URINE AUTO 1+ mg/dL (NEGATIVE); RBC, URINE AUTO 70 /HPF (0-3); SPECIFIC GRAVITY URINE AUTO 1.014 (1.002-1.035); SQUAMOUS EPITHELIAL CELL UR AU 0 /HPF (0-6); UROBILINOGEN, URINE AUTO 0.2 mg/dL (0.0-2.0); WBC, URINE AUTO 5 /HPF (0-3)
[2017-03-09 14:54] LABS: BEDSIDE GLUCOSE 446 MG/DL (80-115)
[2017-03-09 20:14] LABS: BEDSIDE GLUCOSE 415 MG/DL (80-115)
[2017-03-09] MEDS: SERTRALINE HCL 25 MG TABLET PO (20:19)
[2017-03-10] MEDS: CEFTAROLINE FOSAMIL 400 MG in APPROPRIATE DILUENT 1 EA IV (00:42)
[2017-03-10] MEDS: methylPREDNISolone INJ 125 MG/2 ML VIAL (J2930) IV ×2 (04:17→11:22)
[2017-03-10 06:16] LABS: HEMATOCRIT 34.3 % (42.0-52.0); HEMOGLOBIN 10.9 g/dl (14.0-18.0); MEAN CORPUSCULAR HEMOGLOBIN 32.2 pg (27.0-33.0); MEAN CORPUSCULAR HGB CONC 31.8 g/dl (32.0-36.5); MEAN CORPUSCULAR VOLUME 101.5 fl (80.0-96.0); PLATELET COUNT, AUTOMATED 148 10^3/uL (150-450); RED BLOOD COUNT 3.38 10^6/uL (4.30-6.10); RED CELL DISTRIBUTION WIDTH 16.9 % (11.5-14.5); WHITE BLOOD COUNT 13.8 10^3/uL (4.0-10.0)
[2017-03-10 06:36] LABS: ANION GAP 7 MEQ/L (8-16); BLOOD UREA NITROGEN 38 MG/DL (7-18); CALCIUM LEVEL 8.8 MG/DL (8.8-10.2); CARBON DIOXIDE LEVEL 30 MEQ/L (21-32); CHLORIDE LEVEL 100 MEQ/L (98-107); CREATININE FOR GFR 1.18 MG/DL (0.70-1.30); GLOMERULAR FILTRATION RATE > 60.0 (>49); GLUCOSE, FASTING 236 MG/DL (70-100); POTASSIUM SERUM 4.1 MEQ/L (3.5-5.1); SODIUM LEVEL 137 MEQ/L (136-145)
[2017-03-10] MEDS: HumaLOG INSULIN (NovoLOG) PER UNIT SC ×2 (07:48→11:34)
[2017-03-10] MEDS: LEVEMIR (INSULIN DETEMIR) 1 UNITS/0.01ML SC (07:49)
[2017-03-10] MEDS: MULTIVITAMINS/MINERALS THERAP 1 TAB PO (07:49)
[2017-03-10] MEDS: APIXABAN 5 MG TAB (ELIQUIS) PO (07:49)
[2017-03-10] MEDS: FIBER-CON 625 MG TAB PO (07:49)
[2017-03-10] MEDS: ALLOPURINOL 300 MG TAB PO (07:49)
[2017-03-10] MEDS: LACTOBACILLUS ACIDOPHILUS CAP (BACID) PO ×2 (07:49→11:22)
[2017-03-10] MEDS: MAGNESIUM OXIDE 400 MG TAB (MAG-OX) PO (07:49)
[2017-03-10] MEDS: NYSTATIN 500,000 U/5 ML SUSP UDC SS (07:49)
[2017-03-10] MEDS: METOPROLOL TART 50 MG TAB PO (07:49)
[2017-03-10] MEDS: DIGOXIN 0.125 MG TAB PO (07:50)
[2017-03-10] MEDS: OMEPRAZOLE 20 MG CAP PO (07:50)
[2017-03-10] MEDS: ASPIRIN 81 MG ENTERIC TAB PO (07:50)
[2017-03-10] MEDS: rOPINIRole 1MG TAB PO (07:50)
[2017-03-10] MEDS: GABAPENTIN 300 MG CAP PO (07:50)
[2017-03-10] MEDS: PRAVASTATIN 20 MG TAB PO (07:50)
[2017-03-10] MEDS: TORSEMIDE 5MG TABLET PO (07:50)
[2017-03-10] MEDS: CYANOCOBALAMIN 500 MCG TAB PO (07:50)
[2017-03-10] MEDS: FERROUS SULFATE 325MG TAB PO (07:50)
[2017-03-10] MEDS: guaiFENesin ER 600 MG TAB PO (07:50)
[2017-03-10] MEDS: SODIUM CHLORIDE 0.9% 3ML NEB SOLUTION FOR INHALATION INH (08:00)
[2017-03-10] MEDS: IPRATROPIUM 0.5MG/ALBUTEROL 2.5MG INH SOL UD 3ML (DUONEB)(J7620) NEB (09:54)
[2017-03-10] MEDS: ZONISAMIDE 50 MG CAP (ZONEGRAN) PO (11:22)
[2017-03-10 11:36] LABS: BEDSIDE GLUCOSE 345 MG/DL (80-115)
[2017-03-10 11:40] LABS: BEDSIDE GLUCOSE 392 MG/DL (80-115)
[2017-03-10] MEDS: CEFTAROLINE FOSAMIL 400 MG in D5W MINI-BAG PLUS 50 ML IV (13:15)
== END 2017-03-10 14:57 | disposition home or self-care (01) | DRG 191 ==
LOC: M ED 10:02 → M ED INP 14:48 → M MSPAV 15:46
DX: J44.1 Chronic obstructive pulmonary disease with (acute) exacerbation (principal); E27.40 Unspecified adrenocortical insufficiency; E87.2 Acidosis; I50.32 Chronic diastolic (congestive) heart failure; I48.91 Unspecified atrial fibrillation; N18.3 Chronic kidney disease, stage 3 (moderate); G25.81 Restless legs syndrome; E11.22 Type 2 diabetes mellitus with diabetic chronic kidney disease; K21.9 Gastro-esophageal reflux disease without esophagitis; F32.9 Major depressive disorder, single episode, unspecified; G47.33 Obstructive sleep apnea (adult) (pediatric); Z85.118 Personal history of other malignant neoplasm of bronchus and lung; Z90.2 Acquired absence of lung [part of]; Z90.5 Acquired absence of kidney; Z87.891 Personal history of nicotine dependence; Z79.01 Long term (current) use of anticoagulants; Z79.4 Long term (current) use of insulin; Z79.52 Long term (current) use of systemic steroids; Z79.899 Other long term (current) drug therapy; Z88.8 Allergy status to other drugs, medicaments and biological substances; Z85.528 Personal history of other malignant neoplasm of kidney

== ENCOUNTER 2017-03-26 13:00 | Inpatient (IN) | payer MEDICARE, MEDICAID ==
[2017-03-26] MEDS: IPRATROPIUM 0.5MG/ALBUTEROL 2.5MG INH SOL UD 3ML (DUONEB)(J7620) NEB ×2 (14:12→14:13)
[2017-03-26 14:48] LABS: VENOUS BASE EXCESS 4.1 (-2.0-2.0); VENOUS HCO3 29.9 MEQ/L (23.0-27.0); VENOUS O2 SATURATION 96.8 % (60.0-80.0); VENOUS PARTIAL PRESSURE CO2 50.2 mmHg (38.0-50.0); VENOUS PARTIAL PRESSURE O2 91.6 mmHg (30.0-50.0); VENOUS PH 7.393 UNITS (7.330-7.430); VENOUS STANDARD HCO3 28.2 MEQ/L; VENOUS TOTAL CO2 31.5 MEQ/L (24.0-28.0)
[2017-03-26 14:53] LABS: HEMATOCRIT 34.1 % (42.0-52.0); HEMOGLOBIN 10.7 g/dl (14.0-18.0); MEAN CORPUSCULAR HEMOGLOBIN 33.1 pg (27.0-33.0); MEAN CORPUSCULAR HGB CONC 31.4 g/dl (32.0-36.5); MEAN CORPUSCULAR VOLUME 105.6 fl (80.0-96.0); PLATELET COUNT, AUTOMATED 127 10^3/uL (150-450); RED BLOOD COUNT 3.23 10^6/uL (4.30-6.10); RED CELL DISTRIBUTION WIDTH 17.9 % (11.5-14.5); WHITE BLOOD COUNT 7.1 10^3/uL (4.0-10.0)
[2017-03-26 15:06] LABS: INR 1.08; PROTHROMBIN TIME 14.2 SECONDS (12.4-14.5)
[2017-03-26 15:13] LABS: ANION GAP 6 MEQ/L (8-16); BLOOD UREA NITROGEN 21 MG/DL (7-18); CALCIUM LEVEL 8.9 MG/DL (8.8-10.2); CARBON DIOXIDE LEVEL 33 MEQ/L (21-32); CHLORIDE LEVEL 100 MEQ/L (98-107); CPK CREATINE PHOSPHOKINASE 25 U/L (39-308); CREATININE FOR GFR 1.25 MG/DL (0.70-1.30); GLOMERULAR FILTRATION RATE > 60.0 (>49); GLUCOSE, FASTING 220 MG/DL (70-100); POTASSIUM SERUM 4.4 MEQ/L (3.5-5.1); SODIUM LEVEL 139 MEQ/L (136-145); TROPONIN I 0.04 NG/ML (< 0.10)
[2017-03-26 15:14] LABS: CK-MB VALUE MASS 1.7 NG/ML (0.0-3.6); NT-PRO BNP 637 PG/ML (<125)
[2017-03-26 15:15] LABS: LACTIC ACID SEPSIS PROTOCOL 2.9 MMOL/L (0.4-2.0)
[2017-03-26 15:15] LABS: POS COUNT POS FLAG; POSITIVE MORPH POS FLAG
[2017-03-26 15:16] LABS: ADD MANUAL DIFFER YES; DIFF SLIDE NUMBER 240
[2017-03-26] MEDS: FUROSEMIDE 100 MG/10 ML VIAL (J1940) IV (15:17)
[2017-03-26 15:30] LABS: ATYPICAL LYMPH 5 % (0-5); BANDS 1 % (< 11); EOSINOPHILS 1 % (0-5); LYMPHOCYTES 12 % (16-52); MONOCYTES 5 % (0-8); MYELOCYTES 1 % (0-0); NEUTROPHILS 75 % (35-75)
[2017-03-26 15:31] LABS: ANISOCYTOSIS 3+; PLATELET ESTIMATE DECREASED (NORMAL); POLYCHROMASIA 2+
[2017-03-26] MEDS: AZITHROMYCIN INJ 500 MG, VIAL MATE ADAPTER 1 EACH in D5W 250 ML IV (16:00)
[2017-03-26 16:12] LABS: C REACTIVE PROTEIN QUANTITATIV 2.88 MG/DL (0.00-0.30)
[2017-03-26] MEDS ORDERED: ALBUTEROL SULFATE 2.5 MG/0.5 ML INH NEB SOLN NEB (16:45)
[2017-03-26] MEDS: CEFTRIAXONE SOD 1 GM in APPROPRIATE DILUENT 1 EA IV (17:00)
[2017-03-26] MEDS ORDERED: DEXTROSE 50% 50 ML SYRINGE IV (17:30)
[2017-03-26] MEDS: HumaLOG INSULIN (NovoLOG) PER UNIT SC ×2 (17:30→21:00)
[2017-03-26] MEDS ORDERED: GLUCOSE 4 GM CHEW TABLET PO (17:30)
[2017-03-26] MEDS ORDERED: hydrOXYzine 50 MG TAB PO (17:30)
[2017-03-26] MEDS ORDERED: GLUCAGON FOR INJ 1 MG VIAL (J1610) SC (17:30)
[2017-03-26] MEDS: SODIUM CHLORIDE 0.9% 3ML NEB SOLUTION FOR INHALATION INH (19:00)
[2017-03-26 20:35] LABS: CK-MB VALUE MASS 1.6 NG/ML (0.0-3.6); CPK CREATINE PHOSPHOKINASE 22 U/L (39-308); MB/CK RELATIVE INDEX 7.27 (< OR =4); TROPONIN I 0.02 NG/ML (< 0.10)
[2017-03-26] MEDS: ALBUTEROL SULFATE 2.5 MG/0.5 ML INH NEB SOLN NEB ×2 (20:40→23:26)
[2017-03-26] MEDS: VANCOMYCIN HCL 1,000 MG, VIAL MATE ADAPTER 1 EACH in D5W 250 ML IV (21:15)
[2017-03-26 22:42] LABS: BEDSIDE GLUCOSE 206 MG/DL (80-115)
[2017-03-26] MEDS: methylPREDNISolone INJ 125 MG/2 ML VIAL (J2930) IV (22:52)
[2017-03-26] MEDS: LEVEMIR (INSULIN DETEMIR) 1 UNITS/0.01ML SC (22:52)
[2017-03-27] MEDS: ZONISAMIDE 50 MG CAP (ZONEGRAN) PO ×3 (00:31→21:58)
[2017-03-27] MEDS: GABAPENTIN 300 MG CAP PO ×4 (00:31→21:57)
[2017-03-27] MEDS: APIXABAN 5 MG TAB (ELIQUIS) PO ×3 (00:32→21:58)
[2017-03-27] MEDS: SENOKOT S TAB PO ×3 (00:32→22:04)
[2017-03-27] MEDS: LACTOBACILLUS ACIDOPHILUS CAP (BACID) PO ×4 (00:32→21:58)
[2017-03-27] MEDS: VANCOMYCIN HCL 1,000 MG, VIAL MATE ADAPTER 1 EACH in D5W 250 ML IV ×2 (00:32→12:10)
[2017-03-27] MEDS: FUROSEMIDE 40 MG/4 ML VIAL (J1940) IV ×4 (00:32→23:59)
[2017-03-27] MEDS: guaiFENesin ER 600 MG TAB PO ×3 (00:32→21:58)
[2017-03-27] MEDS: SERTRALINE HCL 25 MG TABLET PO ×2 (00:32→21:58)
[2017-03-27] MEDS: METOPROLOL TART 50 MG TAB PO ×2 (00:32→09:00)
[2017-03-27] MEDS: rOPINIRole 1MG TAB PO ×3 (00:44→21:57)
[2017-03-27] MEDS: CEFEPIME HCL 1 GM in D5W MINI-BAG PLUS 50 ML IV (02:29)
[2017-03-27 02:31] LABS: CK-MB VALUE MASS 1.3 NG/ML (0.0-3.6); CPK CREATINE PHOSPHOKINASE 37 U/L (39-308); MB/CK RELATIVE INDEX 3.51 (< OR =4); TROPONIN I 0.03 NG/ML (< 0.10)
[2017-03-27] MEDS: ALBUTEROL SULFATE 2.5 MG/0.5 ML INH NEB SOLN NEB ×7 (05:16→23:50)
[2017-03-27] MEDS: methylPREDNISolone INJ 125 MG/2 ML VIAL (J2930) IV ×3 (05:37→22:00)
[2017-03-27 05:55] LABS: HEMATOCRIT 36.7 % (42.0-52.0); HEMOGLOBIN 11.3 g/dl (14.0-18.0); MEAN CORPUSCULAR HEMOGLOBIN 32.1 pg (27.0-33.0); MEAN CORPUSCULAR HGB CONC 30.8 g/dl (32.0-36.5); MEAN CORPUSCULAR VOLUME 104.3 fl (80.0-96.0); PLATELET COUNT, AUTOMATED 147 10^3/uL (150-450); RED BLOOD COUNT 3.52 10^6/uL (4.30-6.10); RED CELL DISTRIBUTION WIDTH 17.9 % (11.5-14.5); WHITE BLOOD COUNT 6.7 10^3/uL (4.0-10.0)
[2017-03-27 06:24] LABS: ALBUMIN/GLOBULIN RATIO 0.73 (1.00-1.93); ALKALINE PHOSPHATASE 67 U/L (45-117); ALT/SGPT 73 U/L (12-78); ANION GAP 11 MEQ/L (8-16); AST/SGOT 30 U/L (7-37); BILIRUBIN,TOTAL 0.3 MG/DL (0.2-1.0); BLOOD UREA NITROGEN 24 MG/DL (7-18); C REACTIVE PROTEIN QUANTITATIV 3.71 MG/DL (0.00-0.30); CALCIUM LEVEL 8.5 MG/DL (8.8-10.2); CARBON DIOXIDE LEVEL 30 MEQ/L (21-32); CHLORIDE LEVEL 99 MEQ/L (98-107); CREATININE FOR GFR 1.52 MG/DL (0.70-1.30); GLOMERULAR FILTRATION RATE 49.4 (>49); GLUCOSE, FASTING 292 MG/DL (70-100); MAGNESIUM LEVEL 1.9 MG/DL (1.8-2.4); POTASSIUM SERUM 4.6 MEQ/L (3.5-5.1); SODIUM LEVEL 140 MEQ/L (136-145); TOTAL PROTEIN 7.1 GM/DL (6.4-8.2)
[2017-03-27] MEDS: SODIUM CHLORIDE 0.9% 3ML NEB SOLUTION FOR INHALATION INH ×2 (07:00→19:00)
[2017-03-27] MEDS: HumaLOG INSULIN (NovoLOG) PER UNIT SC ×4 (08:57→22:01)
[2017-03-27] MEDS: LEVEMIR (INSULIN DETEMIR) 1 UNITS/0.01ML SC ×2 (08:58→22:02)
[2017-03-27] MEDS: ASPIRIN 81 MG ENTERIC TAB PO (08:59)
[2017-03-27] MEDS: OMEPRAZOLE 20 MG CAP PO (08:59)
[2017-03-27] MEDS: DIGOXIN 0.125 MG TAB PO (08:59)
[2017-03-27] MEDS: FERROUS SULFATE 325MG TAB PO (08:59)
[2017-03-27] MEDS: CYANOCOBALAMIN 500 MCG TAB PO (08:59)
[2017-03-27] MEDS: MAGNESIUM OXIDE 400 MG TAB (MAG-OX) PO (09:00)
[2017-03-27] MEDS ORDERED: PANTOPRAZOLE 40MG TAB (PROTONIX) PO (09:00)
[2017-03-27] MEDS: PRAVASTATIN 20 MG TAB PO (09:00)
[2017-03-27] MEDS: ALLOPURINOL 300 MG TAB PO (09:00)
[2017-03-27] MEDS: MULTIVITAMINS/MINERALS THERAP 1 TAB PO (09:00)
[2017-03-27] MEDS: TIOTROPIUM INHALER/CAPSULE (SPIRIVA) INH (09:20)
[2017-03-27 12:09] LABS: BEDSIDE GLUCOSE 314 MG/DL (80-115)
[2017-03-27 12:45] LABS: IMMUNOGLOBULIN G 660 MG/DL (681-1648); IMMUNOGLOBULIN M 158 MG/DL (40-230)
[2017-03-27] MEDS ORDERED: AZITHROMYCIN INJ 500 MG, VIAL MATE ADAPTER 1 EACH in D5W 250 ML IV (16:00)
[2017-03-27] MEDS: CIPROFLOXACIN 500 MG TAB PO (17:45)
[2017-03-27] MEDS: METOPROLOL TART 25 MG TABLET PO (21:58)
[2017-03-28] MEDS: ALBUTEROL SULFATE 2.5 MG/0.5 ML INH NEB SOLN NEB ×6 (03:46→23:26)
[2017-03-28] MEDS: CIPROFLOXACIN 500 MG TAB PO ×2 (05:27→17:38)
[2017-03-28] MEDS: methylPREDNISolone INJ 125 MG/2 ML VIAL (J2930) IV ×3 (05:27→23:04)
[2017-03-28 05:39] LABS: HEMATOCRIT 33.7 % (42.0-52.0); HEMOGLOBIN 10.7 g/dl (14.0-18.0); MEAN CORPUSCULAR HGB CONC 31.8 g/dl (32.0-36.5); PLATELET COUNT, AUTOMATED 147 10^3/uL (150-450); RED BLOOD COUNT 3.24 10^6/uL (4.30-6.10); RED CELL DISTRIBUTION WIDTH 17.4 % (11.5-14.5); WHITE BLOOD COUNT 10.6 10^3/uL (4.0-10.0)
[2017-03-28 05:51] LABS: ALBUMIN 2.9 GM/DL (3.2-5.2); ALBUMIN/GLOBULIN RATIO 0.74 (1.00-1.93); ALKALINE PHOSPHATASE 71 U/L (45-117); ALT/SGPT 74 U/L (12-78); ANION GAP 9 MEQ/L (8-16); AST/SGOT 31 U/L (7-37); BILIRUBIN,TOTAL 0.3 MG/DL (0.2-1.0); BLOOD UREA NITROGEN 41 MG/DL (7-18); CALCIUM LEVEL 9.2 MG/DL (8.8-10.2); CARBON DIOXIDE LEVEL 33 MEQ/L (21-32); CHLORIDE LEVEL 95 MEQ/L (98-107); CREATININE FOR GFR 1.45 MG/DL (0.70-1.30); GLOMERULAR FILTRATION RATE 52.2 (>49); GLUCOSE, FASTING 310 MG/DL (70-100); POTASSIUM SERUM 3.9 MEQ/L (3.5-5.1); SODIUM LEVEL 137 MEQ/L (136-145); TOTAL PROTEIN 6.8 GM/DL (6.4-8.2)
[2017-03-28] MEDS: TIOTROPIUM INHALER/CAPSULE (SPIRIVA) INH (07:57)
[2017-03-28] MEDS: LEVEMIR (INSULIN DETEMIR) 1 UNITS/0.01ML SC ×2 (09:03→20:19)
[2017-03-28] MEDS: FUROSEMIDE 40 MG/4 ML VIAL (J1940) IV ×3 (09:04→23:04)
[2017-03-28] MEDS: HumaLOG INSULIN (NovoLOG) PER UNIT SC ×4 (09:04→20:20)
[2017-03-28] MEDS: CYANOCOBALAMIN 500 MCG TAB PO (09:05)
[2017-03-28] MEDS: GABAPENTIN 300 MG CAP PO ×3 (09:05→20:20)
[2017-03-28] MEDS: ZONISAMIDE 50 MG CAP (ZONEGRAN) PO ×2 (09:05→20:21)
[2017-03-28] MEDS: APIXABAN 5 MG TAB (ELIQUIS) PO ×2 (09:05→20:20)
[2017-03-28] MEDS: LACTOBACILLUS ACIDOPHILUS CAP (BACID) PO ×3 (09:05→20:21)
[2017-03-28] MEDS: rOPINIRole 1MG TAB PO ×2 (09:05→20:20)
[2017-03-28] MEDS: OMEPRAZOLE 20 MG CAP PO (09:05)
[2017-03-28] MEDS: FERROUS SULFATE 325MG TAB PO (09:06)
[2017-03-28] MEDS: MULTIVITAMINS/MINERALS THERAP 1 TAB PO (09:06)
[2017-03-28] MEDS: ASPIRIN 81 MG ENTERIC TAB PO (09:06)
[2017-03-28] MEDS: DIGOXIN 0.125 MG TAB PO (09:06)
[2017-03-28] MEDS: guaiFENesin ER 600 MG TAB PO ×2 (09:06→20:21)
[2017-03-28] MEDS: ALLOPURINOL 300 MG TAB PO (09:07)
[2017-03-28] MEDS: METOPROLOL TART 25 MG TABLET PO ×2 (09:07→20:24)
[2017-03-28] MEDS: PRAVASTATIN 20 MG TAB PO (09:07)
[2017-03-28] MEDS: MAGNESIUM OXIDE 400 MG TAB (MAG-OX) PO (09:07)
[2017-03-28] MEDS: SENOKOT S TAB PO ×2 (09:07→20:21)
[2017-03-28] MEDS: SODIUM CHLORIDE 0.9% 3ML NEB SOLUTION FOR INHALATION INH ×2 (14:41→19:00)
[2017-03-28 16:59] LABS: BEDSIDE GLUCOSE 293 MG/DL (80-115)
[2017-03-28] MEDS: SERTRALINE HCL 25 MG TABLET PO (20:21)
[2017-03-29] MEDS: ALBUTEROL SULFATE 2.5 MG/0.5 ML INH NEB SOLN NEB ×6 (03:20→23:43)
[2017-03-29 05:28] LABS: HEMATOCRIT 33.8 % (42.0-52.0); HEMOGLOBIN 10.7 g/dl (14.0-18.0); MEAN CORPUSCULAR HEMOGLOBIN 32.4 pg (27.0-33.0); MEAN CORPUSCULAR HGB CONC 31.7 g/dl (32.0-36.5); MEAN CORPUSCULAR VOLUME 102.4 fl (80.0-96.0); PLATELET COUNT, AUTOMATED 164 10^3/uL (150-450); WHITE BLOOD COUNT 10.7 10^3/uL (4.0-10.0)
[2017-03-29 05:48] LABS: ALBUMIN/GLOBULIN RATIO 0.91 (1.00-1.93); ALKALINE PHOSPHATASE 74 U/L (45-117); ALT/SGPT 92 U/L (12-78); ANION GAP 10 MEQ/L (8-16); AST/SGOT 38 U/L (7-37); BILIRUBIN,TOTAL 0.3 MG/DL (0.2-1.0); BLOOD UREA NITROGEN 47 MG/DL (7-18); C REACTIVE PROTEIN QUANTITATIV 1.19 MG/DL (0.00-0.30); CARBON DIOXIDE LEVEL 35 MEQ/L (21-32); CHLORIDE LEVEL 94 MEQ/L (98-107); CREATININE FOR GFR 1.41 MG/DL (0.70-1.30); GLOMERULAR FILTRATION RATE 53.9 (>49); GLUCOSE, FASTING 280 MG/DL (70-100); MAGNESIUM LEVEL 1.9 MG/DL (1.8-2.4); POTASSIUM SERUM 3.9 MEQ/L (3.5-5.1); SODIUM LEVEL 139 MEQ/L (136-145); TOTAL PROTEIN 6.3 GM/DL (6.4-8.2)
[2017-03-29] MEDS: CIPROFLOXACIN 500 MG TAB PO ×2 (06:26→17:37)
[2017-03-29] MEDS: methylPREDNISolone INJ 125 MG/2 ML VIAL (J2930) IV (06:27)
[2017-03-29] MEDS: TIOTROPIUM INHALER/CAPSULE (SPIRIVA) INH (07:15)
[2017-03-29] MEDS: HumaLOG INSULIN (NovoLOG) PER UNIT SC ×4 (08:43→20:31)
[2017-03-29] MEDS: LACTOBACILLUS ACIDOPHILUS CAP (BACID) PO ×3 (08:44→20:29)
[2017-03-29] MEDS: FUROSEMIDE 40 MG/4 ML VIAL (J1940) IV ×2 (08:44→15:17)
[2017-03-29] MEDS: ASPIRIN 81 MG ENTERIC TAB PO (08:45)
[2017-03-29] MEDS: MULTIVITAMINS/MINERALS THERAP 1 TAB PO (08:45)
[2017-03-29] MEDS: FERROUS SULFATE 325MG TAB PO (08:45)
[2017-03-29] MEDS: ZONISAMIDE 50 MG CAP (ZONEGRAN) PO ×2 (08:45→20:29)
[2017-03-29] MEDS: GABAPENTIN 300 MG CAP PO ×3 (08:45→20:29)
[2017-03-29] MEDS: rOPINIRole 1MG TAB PO ×2 (08:46→20:29)
[2017-03-29] MEDS: APIXABAN 5 MG TAB (ELIQUIS) PO ×2 (08:46→20:29)
[2017-03-29] MEDS: CYANOCOBALAMIN 500 MCG TAB PO (08:46)
[2017-03-29] MEDS: guaiFENesin ER 600 MG TAB PO ×2 (08:47→20:29)
[2017-03-29] MEDS: OMEPRAZOLE 20 MG CAP PO (08:47)
[2017-03-29] MEDS: MAGNESIUM OXIDE 400 MG TAB (MAG-OX) PO (08:47)
[2017-03-29] MEDS: DIGOXIN 0.125 MG TAB PO (08:48)
[2017-03-29] MEDS: ALLOPURINOL 300 MG TAB PO (08:48)
[2017-03-29] MEDS: PRAVASTATIN 20 MG TAB PO (08:49)
[2017-03-29] MEDS: METOPROLOL TART 25 MG TABLET PO (08:50)
[2017-03-29] MEDS: LEVEMIR (INSULIN DETEMIR) 1 UNITS/0.01ML SC ×2 (08:51→20:30)
[2017-03-29] MEDS: SENOKOT S TAB PO ×2 (08:51→20:30)
[2017-03-29 12:34] LABS: BEDSIDE GLUCOSE 398 MG/DL (80-115)
[2017-03-29 17:23] LABS: BEDSIDE GLUCOSE 364 MG/DL (80-115)
[2017-03-29 20:23] LABS: BEDSIDE GLUCOSE 401 MG/DL (80-115)
[2017-03-29] MEDS: predniSONE 20 MG TAB PO (20:29)
[2017-03-29] MEDS: METOPROLOL TART 50 MG TAB PO (20:29)
[2017-03-29] MEDS: SERTRALINE HCL 25 MG TABLET PO (20:30)
[2017-03-29] MEDS: SODIUM CHLORIDE 0.9% 3ML NEB SOLUTION FOR INHALATION INH (20:50)
[2017-03-30] MEDS: FUROSEMIDE 40 MG/4 ML VIAL (J1940) IV ×3 (00:42→15:40)
[2017-03-30] MEDS: ALBUTEROL SULFATE 2.5 MG/0.5 ML INH NEB SOLN NEB ×5 (03:19→17:43)
[2017-03-30] MEDS: CIPROFLOXACIN 500 MG TAB PO ×2 (05:04→17:47)
[2017-03-30 05:23] LABS: HEMATOCRIT 35.3 % (42.0-52.0); HEMOGLOBIN 11.3 g/dl (14.0-18.0); MEAN CORPUSCULAR HEMOGLOBIN 32.8 pg (27.0-33.0); MEAN CORPUSCULAR VOLUME 102.6 fl (80.0-96.0); PLATELET COUNT, AUTOMATED 178 10^3/uL (150-450); RED BLOOD COUNT 3.44 10^6/uL (4.30-6.10); RED CELL DISTRIBUTION WIDTH 17.4 % (11.5-14.5)
[2017-03-30 05:44] LABS: ALBUMIN 3.1 GM/DL (3.2-5.2); ALBUMIN/GLOBULIN RATIO 0.82 (1.00-1.93); ALKALINE PHOSPHATASE 80 U/L (45-117); ALT/SGPT 112 U/L (12-78); ANION GAP 9 MEQ/L (8-16); AST/SGOT 53 U/L (7-37); BILIRUBIN,TOTAL 0.3 MG/DL (0.2-1.0); BLOOD UREA NITROGEN 54 MG/DL (7-18); C REACTIVE PROTEIN QUANTITATIV 0.76 MG/DL (0.00-0.30); CALCIUM LEVEL 9.2 MG/DL (8.8-10.2); CARBON DIOXIDE LEVEL 34 MEQ/L (21-32); CHLORIDE LEVEL 96 MEQ/L (98-107); CREATININE FOR GFR 1.49 MG/DL (0.70-1.30); GLOMERULAR FILTRATION RATE 50.5 (>49); GLUCOSE, FASTING 252 MG/DL (70-100); MAGNESIUM LEVEL 2.1 MG/DL (1.8-2.4); SODIUM LEVEL 139 MEQ/L (136-145); TOTAL PROTEIN 6.9 GM/DL (6.4-8.2)
[2017-03-30] MEDS: SODIUM CHLORIDE 0.9% 3ML NEB SOLUTION FOR INHALATION INH (07:27)
[2017-03-30] MEDS: TIOTROPIUM INHALER/CAPSULE (SPIRIVA) INH (07:27)
[2017-03-30] MEDS: SENOKOT S TAB PO ×2 (09:00→21:00)
[2017-03-30] MEDS: HumaLOG INSULIN (NovoLOG) PER UNIT SC ×4 (09:27→21:37)
[2017-03-30] MEDS: LEVEMIR (INSULIN DETEMIR) 1 UNITS/0.01ML SC ×2 (09:28→21:00)
[2017-03-30] MEDS: ZONISAMIDE 50 MG CAP (ZONEGRAN) PO ×2 (09:32→21:35)
[2017-03-30] MEDS: LACTOBACILLUS ACIDOPHILUS CAP (BACID) PO ×3 (09:33→21:35)
[2017-03-30] MEDS: DIGOXIN 0.125 MG TAB PO (09:33)
[2017-03-30] MEDS: OMEPRAZOLE 20 MG CAP PO (09:34)
[2017-03-30] MEDS: rOPINIRole 1MG TAB PO ×2 (09:35→21:36)
[2017-03-30] MEDS: GABAPENTIN 300 MG CAP PO ×3 (09:35→21:35)
[2017-03-30] MEDS: CYANOCOBALAMIN 500 MCG TAB PO (09:36)
[2017-03-30] MEDS: MULTIVITAMINS/MINERALS THERAP 1 TAB PO (09:36)
[2017-03-30] MEDS: guaiFENesin ER 600 MG TAB PO ×2 (09:37→21:35)
[2017-03-30] MEDS: ASPIRIN 81 MG ENTERIC TAB PO (09:37)
[2017-03-30] MEDS: APIXABAN 5 MG TAB (ELIQUIS) PO ×2 (09:37→21:35)
[2017-03-30] MEDS: MAGNESIUM OXIDE 400 MG TAB (MAG-OX) PO (09:37)
[2017-03-30] MEDS: ALLOPURINOL 300 MG TAB PO (09:38)
[2017-03-30] MEDS: METOPROLOL TART 50 MG TAB PO ×2 (09:38→21:36)
[2017-03-30] MEDS: FERROUS SULFATE 325MG TAB PO (09:38)
[2017-03-30] MEDS: PRAVASTATIN 20 MG TAB PO (09:42)
[2017-03-30] MEDS: predniSONE 20 MG TAB PO ×2 (09:44→21:35)
[2017-03-30 12:05] LABS: BEDSIDE GLUCOSE 329 MG/DL (80-115)
[2017-03-30 12:23] LABS: HEPATITIS C VIRUS ABY INDEX 0.1 INDEX (<0.8)
[2017-03-30 12:24] LABS: HIV 1&2 SCREEN CENTAUR NEGATIVE (NEGATIVE)
[2017-03-30 14:27] LABS: BEDSIDE GLUCOSE 476 MG/DL (80-115)
[2017-03-30 14:27] LABS: BEDSIDE GLUCOSE 470 MG/DL (80-115)
[2017-03-30 14:29] LABS: BEDSIDE GLUCOSE 331 MG/DL (80-115)
[2017-03-30] MEDS ORDERED: SLF 3 ML SYR IV (15:45)
[2017-03-30 17:47] LABS: HEMOGLOBIN 12.1 g/dl (14.0-18.0); MEAN CORPUSCULAR HEMOGLOBIN 32.8 pg (27.0-33.0); MEAN CORPUSCULAR HGB CONC 31.8 g/dl (32.0-36.5); PLATELET COUNT, AUTOMATED 200 10^3/uL (150-450); RED BLOOD COUNT 3.69 10^6/uL (4.30-6.10); RED CELL DISTRIBUTION WIDTH 17.5 % (11.5-14.5); WHITE BLOOD COUNT 9.5 10^3/uL (4.0-10.0)
[2017-03-30] MEDS: SERTRALINE HCL 25 MG TABLET PO (21:35)
[2017-03-30] MEDS: SLF 3 ML SYR IV (21:38)
[2017-03-31] MEDS: ALBUTEROL SULFATE 2.5 MG/0.5 ML INH NEB SOLN NEB ×7 (00:26→23:14)
[2017-03-31] MEDS: SODIUM CHLORIDE 0.9% 3ML NEB SOLUTION FOR INHALATION INH ×2 (00:26→07:21)
[2017-03-31] MEDS: SLF 3 ML SYR IV ×3 (05:44→21:57)
[2017-03-31] MEDS: CIPROFLOXACIN 500 MG TAB PO ×2 (05:44→17:28)
[2017-03-31 05:52] LABS: HEMATOCRIT 36.6 % (42.0-52.0); HEMOGLOBIN 11.6 g/dl (14.0-18.0); MEAN CORPUSCULAR HEMOGLOBIN 33.1 pg (27.0-33.0); MEAN CORPUSCULAR HGB CONC 31.7 g/dl (32.0-36.5); MEAN CORPUSCULAR VOLUME 104.6 fl (80.0-96.0); PLATELET COUNT, AUTOMATED 182 10^3/uL (150-450); RED CELL DISTRIBUTION WIDTH 17.4 % (11.5-14.5); WHITE BLOOD COUNT 7.7 10^3/uL (4.0-10.0)
[2017-03-31 06:19] LABS: ALBUMIN 3.2 GM/DL (3.2-5.2); ALBUMIN/GLOBULIN RATIO 0.91 (1.00-1.93); ALKALINE PHOSPHATASE 114 U/L (45-117); ALT/SGPT 191 U/L (12-78); ANION GAP 9 MEQ/L (8-16); AST/SGOT 113 U/L (7-37); BILIRUBIN,TOTAL 0.3 MG/DL (0.2-1.0); BLOOD UREA NITROGEN 64 MG/DL (7-18); C REACTIVE PROTEIN QUANTITATIV 0.59 MG/DL (0.00-0.30); CALCIUM LEVEL 9.1 MG/DL (8.8-10.2); CARBON DIOXIDE LEVEL 32 MEQ/L (21-32); CHLORIDE LEVEL 99 MEQ/L (98-107); CREATININE FOR GFR 1.72 MG/DL (0.70-1.30); GLOMERULAR FILTRATION RATE 42.8 (>49); GLUCOSE, FASTING 382 MG/DL (70-100); MAGNESIUM LEVEL 2.4 MG/DL (1.8-2.4); POTASSIUM SERUM 4.4 MEQ/L (3.5-5.1); SODIUM LEVEL 140 MEQ/L (136-145); TOTAL PROTEIN 6.7 GM/DL (6.4-8.2)
[2017-03-31 06:30] LABS: DIGOXIN LEVEL 0.4 NG/ML (0.5-2.0)
[2017-03-31] MEDS: TIOTROPIUM INHALER/CAPSULE (SPIRIVA) INH (07:21)
[2017-03-31 08:57] LABS: BEDSIDE GLUCOSE 349 MG/DL (80-115)
[2017-03-31] MEDS: SENOKOT S TAB PO ×3 (09:00→21:00)
[2017-03-31] MEDS: HumaLOG INSULIN (NovoLOG) PER UNIT SC ×4 (09:30→21:56)
[2017-03-31] MEDS: LEVEMIR (INSULIN DETEMIR) 1 UNITS/0.01ML SC ×2 (09:30→21:00)
[2017-03-31] MEDS: FERROUS SULFATE 325MG TAB PO (09:31)
[2017-03-31] MEDS: ZONISAMIDE 50 MG CAP (ZONEGRAN) PO ×2 (09:31→21:55)
[2017-03-31] MEDS: APIXABAN 5 MG TAB (ELIQUIS) PO ×2 (09:31→21:55)
[2017-03-31] MEDS: FUROSEMIDE 20 MG TAB PO (09:31)
[2017-03-31] MEDS: guaiFENesin ER 600 MG TAB PO ×2 (09:31→21:55)
[2017-03-31] MEDS: rOPINIRole 1MG TAB PO ×2 (09:32→21:54)
[2017-03-31] MEDS: LACTOBACILLUS ACIDOPHILUS CAP (BACID) PO ×3 (09:32→21:55)
[2017-03-31] MEDS: GABAPENTIN 300 MG CAP PO ×3 (09:32→21:54)
[2017-03-31] MEDS: DIGOXIN 0.125 MG TAB PO (09:32)
[2017-03-31] MEDS: PRAVASTATIN 20 MG TAB PO (09:33)
[2017-03-31] MEDS: MULTIVITAMINS/MINERALS THERAP 1 TAB PO (09:33)
[2017-03-31] MEDS: predniSONE 20 MG TAB PO ×2 (09:33→21:55)
[2017-03-31] MEDS: ALLOPURINOL 300 MG TAB PO (09:33)
[2017-03-31] MEDS: ASPIRIN 81 MG ENTERIC TAB PO (09:33)
[2017-03-31] MEDS: MAGNESIUM OXIDE 400 MG TAB (MAG-OX) PO (09:33)
[2017-03-31] MEDS: OMEPRAZOLE 20 MG CAP PO (09:33)
[2017-03-31] MEDS: CYANOCOBALAMIN 500 MCG TAB PO (09:33)
[2017-03-31] MEDS: METOPROLOL TART 50 MG TAB PO (09:36)
[2017-03-31 10:09] LABS: FOLATE 13.4 NG/ML (>5.4); VITAMIN B12 LEVEL 837 PG/ML (247-911)
[2017-03-31 11:15] LABS: BEDSIDE GLUCOSE 322 MG/DL (80-115)
[2017-03-31 11:15] LABS: BEDSIDE GLUCOSE 395 MG/DL (80-115)
[2017-03-31 12:25] LABS: BEDSIDE GLUCOSE 254 MG/DL (80-115)
[2017-03-31 12:25] LABS: BEDSIDE GLUCOSE 381 MG/DL (80-115)
[2017-03-31 17:16] LABS: BEDSIDE GLUCOSE 364 MG/DL (80-115)
[2017-03-31] MEDS: METOPROLOL TART 25 MG TABLET PO (19:28)
[2017-03-31 21:50] LABS: BEDSIDE GLUCOSE 319 MG/DL (80-115)
[2017-03-31] MEDS: SERTRALINE HCL 25 MG TABLET PO (21:55)
[2017-04-01 00:07] LABS: IgG SERUM (part of Subclasses) 594 mg/dL (700-1600); IgG Subclass 1 164 mg/dL (248-810); IgG Subclass 2 53 mg/dL (130-555); IgG Subclass 3 18 mg/dL (15-102); IgG Subclass 4 9 mg/dL (2-96)
[2017-04-01] MEDS: ALBUTEROL SULFATE 2.5 MG/0.5 ML INH NEB SOLN NEB ×6 (03:14→23:19)
[2017-04-01] MEDS: SODIUM CHLORIDE 0.9% 3ML NEB SOLUTION FOR INHALATION INH ×2 (03:15→19:00)
[2017-04-01 05:30] LABS: HEMATOCRIT 34.1 % (42.0-52.0); HEMOGLOBIN 10.9 g/dl (14.0-18.0); MEAN CORPUSCULAR HEMOGLOBIN 33.5 pg (27.0-33.0); MEAN CORPUSCULAR VOLUME 104.9 fl (80.0-96.0); PLATELET COUNT, AUTOMATED 159 10^3/uL (150-450); RED BLOOD COUNT 3.25 10^6/uL (4.30-6.10); RED CELL DISTRIBUTION WIDTH 17.3 % (11.5-14.5); WHITE BLOOD COUNT 8.4 10^3/uL (4.0-10.0)
[2017-04-01 05:59] LABS: ALBUMIN/GLOBULIN RATIO 0.94 (1.00-1.93); ALKALINE PHOSPHATASE 81 U/L (45-117); ALT/SGPT 175 U/L (12-78); ANION GAP 7 MEQ/L (8-16); AST/SGOT 67 U/L (7-37); BILIRUBIN,TOTAL 0.5 MG/DL (0.2-1.0); BLOOD UREA NITROGEN 54 MG/DL (7-18); C REACTIVE PROTEIN QUANTITATIV 0.36 MG/DL (0.00-0.30); CALCIUM LEVEL 9.3 MG/DL (8.8-10.2); CARBON DIOXIDE LEVEL 34 MEQ/L (21-32); CHLORIDE LEVEL 100 MEQ/L (98-107); CREATININE FOR GFR 1.34 MG/DL (0.70-1.30); GLOMERULAR FILTRATION RATE 57.1 (>49); GLUCOSE, FASTING 261 MG/DL (70-100); MAGNESIUM LEVEL 2.5 MG/DL (1.8-2.4); POTASSIUM SERUM 4.4 MEQ/L (3.5-5.1); SODIUM LEVEL 141 MEQ/L (136-145); TOTAL PROTEIN 6.2 GM/DL (6.4-8.2)
[2017-04-01] MEDS: CIPROFLOXACIN 500 MG TAB PO ×2 (06:21→17:27)
[2017-04-01] MEDS: SLF 3 ML SYR IV ×3 (06:21→20:57)
[2017-04-01] MEDS: TIOTROPIUM INHALER/CAPSULE (SPIRIVA) INH (08:39)
[2017-04-01] MEDS: BREO ELLIPTA 200MCG/25MCG INH (09:00)
[2017-04-01] MEDS: TORSEMIDE 5MG TABLET PO (09:00)
[2017-04-01] MEDS: MAGNESIUM OXIDE 400 MG TAB (MAG-OX) PO (09:00)
[2017-04-01] MEDS: SENOKOT S TAB PO ×2 (09:00→20:54)
[2017-04-01] MEDS: LEVEMIR (INSULIN DETEMIR) 1 UNITS/0.01ML SC ×2 (09:00→20:53)
[2017-04-01] MEDS: rOPINIRole 1MG TAB PO ×2 (09:44→21:00)
[2017-04-01] MEDS: DIGOXIN 0.125 MG TAB PO (09:44)
[2017-04-01] MEDS: ZONISAMIDE 50 MG CAP (ZONEGRAN) PO ×2 (09:44→21:00)
[2017-04-01] MEDS: FERROUS SULFATE 325MG TAB PO (09:45)
[2017-04-01] MEDS: LACTOBACILLUS ACIDOPHILUS CAP (BACID) PO ×3 (09:45→20:54)
[2017-04-01] MEDS: GABAPENTIN 300 MG CAP PO ×3 (09:45→20:54)
[2017-04-01] MEDS: METOPROLOL TARTRATE 100 MG TAB PO ×2 (09:45→20:54)
[2017-04-01] MEDS: CYANOCOBALAMIN 500 MCG TAB PO (09:45)
[2017-04-01] MEDS: guaiFENesin ER 600 MG TAB PO ×2 (09:45→20:54)
[2017-04-01] MEDS: PRAVASTATIN 20 MG TAB PO (09:45)
[2017-04-01] MEDS: APIXABAN 5 MG TAB (ELIQUIS) PO ×2 (09:45→20:54)
[2017-04-01] MEDS: ASPIRIN 81 MG ENTERIC TAB PO (09:45)
[2017-04-01] MEDS: OMEPRAZOLE 20 MG CAP PO (09:46)
[2017-04-01] MEDS: ALLOPURINOL 300 MG TAB PO (09:46)
[2017-04-01] MEDS: MULTIVITAMINS/MINERALS THERAP 1 TAB PO (09:46)
[2017-04-01] MEDS: predniSONE 20 MG TAB PO ×2 (09:47→21:00)
[2017-04-01] MEDS: HumaLOG INSULIN (NovoLOG) PER UNIT SC ×4 (09:47→20:53)
[2017-04-01 17:29] LABS: BEDSIDE GLUCOSE 391 MG/DL (80-115)
[2017-04-01 20:52] LABS: BEDSIDE GLUCOSE 331 MG/DL (80-115)
[2017-04-01] MEDS: SERTRALINE HCL 25 MG TABLET PO (21:00)
[2017-04-02] MEDS: ALBUTEROL SULFATE 2.5 MG/0.5 ML INH NEB SOLN NEB ×4 (04:00→16:27)
[2017-04-02 05:52] LABS: HEMATOCRIT 34.8 % (42.0-52.0); MEAN CORPUSCULAR HGB CONC 31.6 g/dl (32.0-36.5); MEAN CORPUSCULAR VOLUME 104.5 fl (80.0-96.0); PLATELET COUNT, AUTOMATED 148 10^3/uL (150-450); RED BLOOD COUNT 3.33 10^6/uL (4.30-6.10); RED CELL DISTRIBUTION WIDTH 16.9 % (11.5-14.5); WHITE BLOOD COUNT 10.8 10^3/uL (4.0-10.0)
[2017-04-02] MEDS: SLF 3 ML SYR IV ×2 (05:58→16:09)
[2017-04-02] MEDS: CIPROFLOXACIN 500 MG TAB PO ×2 (05:58→17:17)
[2017-04-02 06:07] LABS: ALBUMIN/GLOBULIN RATIO 0.88 (1.00-1.93); ALKALINE PHOSPHATASE 79 U/L (45-117); ALT/SGPT 158 U/L (12-78); ANION GAP 10 MEQ/L (8-16); AST/SGOT 47 U/L (7-37); BILIRUBIN,TOTAL 0.4 MG/DL (0.2-1.0); BLOOD UREA NITROGEN 48 MG/DL (7-18); C REACTIVE PROTEIN QUANTITATIV 0.82 MG/DL (0.00-0.30); CALCIUM LEVEL 9.2 MG/DL (8.8-10.2); CARBON DIOXIDE LEVEL 28 MEQ/L (21-32); CHLORIDE LEVEL 99 MEQ/L (98-107); CREATININE FOR GFR 1.35 MG/DL (0.70-1.30); GLOMERULAR FILTRATION RATE 56.6 (>49); GLUCOSE, FASTING 296 MG/DL (70-100); MAGNESIUM LEVEL 2.4 MG/DL (1.8-2.4); POTASSIUM SERUM 4.4 MEQ/L (3.5-5.1); SODIUM LEVEL 137 MEQ/L (136-145); TOTAL PROTEIN 6.4 GM/DL (6.4-8.2)
[2017-04-02] MEDS: SODIUM CHLORIDE 0.9% 3ML NEB SOLUTION FOR INHALATION INH (07:00)
[2017-04-02] MEDS: TIOTROPIUM INHALER/CAPSULE (SPIRIVA) INH (07:13)
[2017-04-02] MEDS: BREO ELLIPTA 200MCG/25MCG INH (07:13)
[2017-04-02] MEDS: SENOKOT S TAB PO (09:00)
[2017-04-02] MEDS: LEVEMIR (INSULIN DETEMIR) 1 UNITS/0.01ML SC (09:13)
[2017-04-02] MEDS: APIXABAN 5 MG TAB (ELIQUIS) PO (09:13)
[2017-04-02] MEDS: HumaLOG INSULIN (NovoLOG) PER UNIT SC ×3 (09:13→17:17)
[2017-04-02] MEDS: ZONISAMIDE 50 MG CAP (ZONEGRAN) PO (09:14)
[2017-04-02] MEDS: CYANOCOBALAMIN 500 MCG TAB PO (09:14)
[2017-04-02] MEDS: ALLOPURINOL 300 MG TAB PO (09:14)
[2017-04-02] MEDS: GABAPENTIN 300 MG CAP PO ×2 (09:14→16:09)
[2017-04-02] MEDS: DIGOXIN 0.125 MG TAB PO (09:14)
[2017-04-02] MEDS: TORSEMIDE 5MG TABLET PO (09:15)
[2017-04-02] MEDS: guaiFENesin ER 600 MG TAB PO (09:15)
[2017-04-02] MEDS: PRAVASTATIN 20 MG TAB PO (09:15)
[2017-04-02] MEDS: predniSONE 20 MG TAB PO (09:15)
[2017-04-02] MEDS: LACTOBACILLUS ACIDOPHILUS CAP (BACID) PO ×2 (09:15→16:09)
[2017-04-02] MEDS: FERROUS SULFATE 325MG TAB PO (09:15)
[2017-04-02] MEDS: rOPINIRole 1MG TAB PO (09:15)
[2017-04-02] MEDS: MAGNESIUM OXIDE 400 MG TAB (MAG-OX) PO (09:16)
[2017-04-02] MEDS: OMEPRAZOLE 20 MG CAP PO (09:16)
[2017-04-02] MEDS: MULTIVITAMINS/MINERALS THERAP 1 TAB PO (09:16)
[2017-04-02] MEDS: ASPIRIN 81 MG ENTERIC TAB PO (09:16)
[2017-04-02] MEDS: METOPROLOL TARTRATE 100 MG TAB PO (09:19)
[2017-04-02 12:09] LABS: BEDSIDE GLUCOSE 216 MG/DL (80-115)
[2017-04-02 12:17] LABS: BEDSIDE GLUCOSE 145 MG/DL (80-115)
[2017-04-02 17:13] LABS: BEDSIDE GLUCOSE 375 MG/DL (80-115)
== END 2017-04-02 18:10 | disposition home or self-care (01) | DRG 291 ==
LOC: M ED 13:00 → M ED INP 16:38 → M PCU 23:49
PROVIDERS: Hospitalist
DX: I50.33 Acute on chronic diastolic (congestive) heart failure (principal); J96.20 Acute and chronic respiratory failure, unspecified whether with hypoxia or hypercapnia; E27.40 Unspecified adrenocortical insufficiency; J44.1 Chronic obstructive pulmonary disease with (acute) exacerbation; Z68.41 Body mass index [BMI] 40.0-44.9, adult; I48.91 Unspecified atrial fibrillation; G47.33 Obstructive sleep apnea (adult) (pediatric); N18.3 Chronic kidney disease, stage 3 (moderate); G25.81 Restless legs syndrome; I27.29 Other secondary pulmonary hypertension; E11.22 Type 2 diabetes mellitus with diabetic chronic kidney disease; E66.01 Morbid (severe) obesity due to excess calories; E78.5 Hyperlipidemia, unspecified; F32.9 Major depressive disorder, single episode, unspecified; Z85.118 Personal history of other malignant neoplasm of bronchus and lung; Z92.3 Personal history of irradiation; Z90.2 Acquired absence of lung [part of]; Z90.5 Acquired absence of kidney; Z87.891 Personal history of nicotine dependence; Z79.01 Long term (current) use of anticoagulants; Z79.82 Long term (current) use of aspirin; Z79.4 Long term (current) use of insulin; Z79.899 Other long term (current) drug therapy; Z79.52 Long term (current) use of systemic steroids; Z91.19 Patient's noncompliance with other medical treatment and regimen

== ENCOUNTER 2017-04-15 17:44 | Emergency (ER) | payer MEDICARE, MEDICAID ==
[2017-04-15 18:54] LABS: BASO % 0.4 % (0.0-1.0); EOS % 0.1 % (0.0-3.0); HEMATOCRIT 37.2 % (42.0-52.0); HEMOGLOBIN 12.2 g/dl (14.0-18.0); IMMATURE GRANULOCYTE % 4.8 % (0-3.0); LYMPH # 0.4 10^3/uL (1.5-4.5); MEAN CORPUSCULAR HEMOGLOBIN 33.9 pg (27.0-33.0); MEAN CORPUSCULAR HGB CONC 32.8 g/dl (32.0-36.5); MEAN CORPUSCULAR VOLUME 103.3 fl (80.0-96.0); MONO # 0.2 10^3/uL (0.0-0.8); NEUTROPHILS # 8.7 10^3/uL (1.8-7.7); NEUTROPHILS % 88.7 % (36.0-66.0); PLATELET COUNT, AUTOMATED 108 10^3/uL (150-450); RED CELL DISTRIBUTION WIDTH 17.2 % (11.5-14.5); WHITE BLOOD COUNT 9.8 10^3/uL (4.0-10.0)
[2017-04-15 19:28] LABS: ANION GAP 10 MEQ/L (8-16); BLOOD UREA NITROGEN 38 MG/DL (7-18); CALCIUM LEVEL 7.6 MG/DL (8.8-10.2); CARBON DIOXIDE LEVEL 28 MEQ/L (21-32); CHLORIDE LEVEL 98 MEQ/L (98-107); CPK CREATINE PHOSPHOKINASE 26 U/L (39-308); CREATININE FOR GFR 1.46 MG/DL (0.70-1.30); GLOMERULAR FILTRATION RATE 51.7 (>49); GLUCOSE, FASTING 223 MG/DL (70-100); POTASSIUM SERUM 4.1 MEQ/L (3.5-5.1); SODIUM LEVEL 136 MEQ/L (136-145); TROPONIN I 0.02 NG/ML (< 0.10)
[2017-04-15 19:28] LABS: LACTIC ACID SEPSIS PROTOCOL 3.1 MMOL/L (0.4-2.0)
[2017-04-15 19:29] LABS: CK-MB VALUE MASS 1.9 NG/ML (0.0-3.6); NT-PRO BNP 263 PG/ML (<125)
[2017-04-15] MEDS: IPRATROPIUM 0.5MG/ALBUTEROL 2.5MG INH SOL UD 3ML (DUONEB)(J7620) NEB (20:45)
== END 2017-04-15 23:00 | disposition home or self-care (01) ==
LOC: M ED 17:44
DX: J44.1 Chronic obstructive pulmonary disease with (acute) exacerbation (principal); N18.3 Chronic kidney disease, stage 3 (moderate); E11.9 Type 2 diabetes mellitus without complications; I12.9 Hypertensive chronic kidney disease with stage 1 through stage 4 chronic kidney disease, or unspecified chronic kidney disease; G62.9 Polyneuropathy, unspecified; K21.9 Gastro-esophageal reflux disease without esophagitis; I25.10 Atherosclerotic heart disease of native coronary artery without angina pectoris; I48.91 Unspecified atrial fibrillation; G47.30 Sleep apnea, unspecified; I25.2 Old myocardial infarction; Z87.891 Personal history of nicotine dependence
CPT/HCPCS: 71046

== ENCOUNTER 2017-04-19 01:24 | Inpatient (IN) | payer MEDICARE, MEDICAID ==
[2017-04-19] MEDS: NS IV (03:15)
[2017-04-19] MEDS: DILUENT IV (03:15)
[2017-04-19] MEDS: PIPERACILLIN/TAZOBACTAM SOD 3.375 GM in APPROPRIATE DILUENT 1 EA IV ×3 (03:24→16:00)
[2017-04-19] MEDS: ACETAMINOPHEN TAB 650MG DOSE (2X325MG) PO (03:24)
[2017-04-19] MEDS: IPRATROPIUM 0.5MG/ALBUTEROL 2.5MG INH SOL UD 3ML (DUONEB)(J7620) NEB ×5 (03:56→15:24)
[2017-04-19 04:13] LABS: ABG BASE EXCESS -2.1 (-2.0-2.0); ABG O2 SATURATION 92.9 % (95.0-99.0); ABG PARTIAL PRESSURE CO2 35.6 mmHg (35.0-45.0); ABG PARTIAL PRESSURE O2 67.7 mmHg (75.0-100.0); ABG STANDARD HCO3 22.6 MEQ/L (22.0-26.0); ABG TOTAL CO2 23.1 MEQ/L (23.0-31.0); ABG pH (ARTERIAL) 7.409 UNITS (7.350-7.450)
[2017-04-19 04:14] LABS: INFLUENZA A AMPLIFICATION NEGATIVE (NEGATIVE); INFLUENZA B AMPLIFICATION NEGATIVE (NEGATIVE)
[2017-04-19] MEDS ORDERED: ONDANSETRON 4MG/2ML VIAL (J2405) IV (04:15)
[2017-04-19] MEDS: SODIUM CHLORIDE 0.9% 1000 ML IV ×2 (04:15→06:16)
[2017-04-19 04:19] LABS: BASO % 0.3 % (0.0-1.0); EOS % 0.3 % (0.0-3.0); HEMATOCRIT 36.3 % (42.0-52.0); HEMOGLOBIN 11.6 g/dl (14.0-18.0); IMMATURE GRANULOCYTE % 2.3 % (0-3.0); LYMPH # 1.2 10^3/uL (1.5-4.5); LYMPH % 18.5 % (24.0-44.0); MEAN CORPUSCULAR HEMOGLOBIN 33.5 pg (27.0-33.0); MEAN CORPUSCULAR VOLUME 104.9 fl (80.0-96.0); MONO # 0.2 10^3/uL (0.0-0.8); MONO % 2.7 % (0.0-5.0); NEUTROPHILS # 4.7 10^3/uL (1.8-7.7); NEUTROPHILS % 75.9 % (36.0-66.0); PLATELET COUNT, AUTOMATED 104 10^3/uL (150-450); RED BLOOD COUNT 3.46 10^6/uL (4.30-6.10); RED CELL DISTRIBUTION WIDTH 17.5 % (11.5-14.5); WHITE BLOOD COUNT 6.2 10^3/uL (4.0-10.0)
[2017-04-19] MEDS ORDERED: hydrOXYzine 25 MG TAB PO (04:30)
[2017-04-19] MEDS: VANCOMYCIN HCL 1,000 MG, VIAL MATE ADAPTER 1 EACH in D5W 250 ML IV ×3 (04:30→17:53)
[2017-04-19 04:41] LABS: ANION GAP 11 MEQ/L (8-16); BLOOD UREA NITROGEN 22 MG/DL (7-18); CALCIUM LEVEL 8.1 MG/DL (8.8-10.2); CARBON DIOXIDE LEVEL 26 MEQ/L (21-32); CHLORIDE LEVEL 105 MEQ/L (98-107); CPK CREATINE PHOSPHOKINASE 29 U/L (39-308); GLOMERULAR FILTRATION RATE 54.3 (>49); GLUCOSE, FASTING 242 MG/DL (70-100); POTASSIUM SERUM 3.8 MEQ/L (3.5-5.1); SODIUM LEVEL 142 MEQ/L (136-145); TROPONIN I 0.09 NG/ML (< 0.10)
[2017-04-19 04:42] LABS: CK-MB VALUE MASS 2.8 NG/ML (0.0-3.6); MB/CK RELATIVE INDEX 9.65 (< OR =4)
[2017-04-19 04:48] LABS: LACTIC ACID SEPSIS PROTOCOL 4.1 MMOL/L (0.4-2.0)
[2017-04-19] MEDS ORDERED: DEXTROSE 50% 50 ML SYRINGE IV (05:00)
[2017-04-19] MEDS ORDERED: GLUCOSE 4 GM CHEW TABLET PO (05:00)
[2017-04-19] MEDS ORDERED: GLUCAGON FOR INJ 1 MG VIAL (J1610) SC (05:00)
[2017-04-19] MEDS ORDERED: HEPARIN SOD (PORCINE) 5000 UNITS/ML VIAL SC (06:00)
[2017-04-19] MEDS: methylPREDNISolone INJ 125 MG/2 ML VIAL (J2930) IV ×3 (06:19→21:40)
[2017-04-19 07:52] LABS: BEDSIDE GLUCOSE 311 MG/DL (80-115)
[2017-04-19 08:22] LABS: TROPONIN I 0.15 NG/ML (< 0.10)
[2017-04-19 08:37] LABS: LACTIC ACID SEPSIS PROTOCOL 2.8 MMOL/L (0.4-2.0)
[2017-04-19] MEDS: OMEPRAZOLE 20 MG CAP PO (08:42)
[2017-04-19] MEDS: ASPIRIN 81 MG ENTERIC TAB PO (08:42)
[2017-04-19] MEDS: HumaLOG INSULIN (NovoLOG) PER UNIT SC ×4 (08:42→21:39)
[2017-04-19] MEDS: METOPROLOL TARTRATE 100 MG TAB PO ×2 (08:43→21:42)
[2017-04-19] MEDS: MAGNESIUM OXIDE 400 MG TAB (MAG-OX) PO (08:43)
[2017-04-19] MEDS: DIGOXIN 0.125 MG TAB PO (08:43)
[2017-04-19] MEDS: CYANOCOBALAMIN 500 MCG TAB PO (08:43)
[2017-04-19] MEDS: MULTIVITAMINS/MINERALS THERAP 1 TAB PO (08:43)
[2017-04-19] MEDS: PRAVASTATIN 20 MG TAB PO (08:44)
[2017-04-19] MEDS: LACTOBACILLUS ACIDOPHILUS CAP (BACID) PO ×3 (08:44→21:40)
[2017-04-19] MEDS: FIBER-CON 625 MG TAB PO (08:44)
[2017-04-19] MEDS: FERROUS SULFATE 325MG TAB PO (08:44)
[2017-04-19] MEDS: rOPINIRole 1MG TAB PO ×2 (08:44→21:40)
[2017-04-19] MEDS: ZONISAMIDE 50 MG CAP (ZONEGRAN) PO ×2 (08:44→21:40)
[2017-04-19] MEDS: ALLOPURINOL 300 MG TAB PO (08:44)
[2017-04-19] MEDS: APIXABAN 5 MG TAB (ELIQUIS) PO ×2 (08:44→21:40)
[2017-04-19] MEDS: guaiFENesin ER 600 MG TAB PO ×2 (08:44→21:40)
[2017-04-19] MEDS: GABAPENTIN 300 MG CAP PO ×3 (08:44→21:40)
[2017-04-19] MEDS: LEVEMIR (INSULIN DETEMIR) 1 UNITS/0.01ML SC ×2 (08:45→21:39)
[2017-04-19] MEDS: DOCUSATE SODIUM 100 MG CAP PO ×2 (08:46→21:40)
[2017-04-19] MEDS ORDERED: TORSEMIDE 5MG TABLET PO (09:00)
[2017-04-19 12:01] LABS: BEDSIDE GLUCOSE 493 MG/DL (80-115)
[2017-04-19 13:59] LABS: KETONE, URINE AUTO RFX NEGATIVE (NEGATIVE); LEUKOCYTE ESTERASE UR AUTO RFX NEGATIVE (NEGATIVE); MUCUS, URINE RFX SMALL (NEGATIVE); NITRITE, URINE AUTO RFX NEGATIVE (NEGATIVE); RBC, URINE AUTO RFX 23 /HPF (0-3); SPECIFIC GRAVITY UR AUTO RFX 1.021 (1.002-1.035); SQUAM EPITHELIAL CELL UR AURFX 0 /HPF (0-6); WBC, URINE AUTO RFX 36 /HPF (0-3)
[2017-04-19 16:41] LABS: TROPONIN I 0.07 NG/ML (< 0.10)
[2017-04-19 16:52] LABS: BEDSIDE GLUCOSE 426 MG/DL (80-115)
[2017-04-19 21:40] LABS: BEDSIDE GLUCOSE 409 MG/DL (80-115)
[2017-04-19] MEDS: SERTRALINE HCL 25 MG TABLET PO (21:40)
[2017-04-20] MEDS: IPRATROPIUM 0.5MG/ALBUTEROL 2.5MG INH SOL UD 3ML (DUONEB)(J7620) NEB ×4 (00:08→23:17)
[2017-04-20] MEDS: PIPERACILLIN/TAZOBACTAM SOD 3.375 GM in APPROPRIATE DILUENT 1 EA IV ×3 (00:12→15:34)
[2017-04-20 04:17] LABS: HEMATOCRIT 29.3 % (42.0-52.0); MEAN CORPUSCULAR HEMOGLOBIN 33.5 pg (27.0-33.0); MEAN CORPUSCULAR HGB CONC 32.1 g/dl (32.0-36.5); MEAN CORPUSCULAR VOLUME 104.3 fl (80.0-96.0); PLATELET COUNT, AUTOMATED 101 10^3/uL (150-450); RED BLOOD COUNT 2.81 10^6/uL (4.30-6.10); RED CELL DISTRIBUTION WIDTH 17.2 % (11.5-14.5); WHITE BLOOD COUNT 7.7 10^3/uL (4.0-10.0)
[2017-04-20 04:25] LABS: HEMOGLOBIN 9.4 g/dl (14.0-18.0)
[2017-04-20 04:43] LABS: ANION GAP 7 MEQ/L (8-16); BLOOD UREA NITROGEN 24 MG/DL (7-18); CALCIUM LEVEL 8.5 MG/DL (8.8-10.2); CARBON DIOXIDE LEVEL 28 MEQ/L (21-32); CHLORIDE LEVEL 103 MEQ/L (98-107); CREATININE FOR GFR 1.16 MG/DL (0.70-1.30); GLOMERULAR FILTRATION RATE > 60.0 (>49); GLUCOSE, FASTING 351 MG/DL (70-100); POTASSIUM SERUM 4.1 MEQ/L (3.5-5.1); SODIUM LEVEL 138 MEQ/L (136-145)
[2017-04-20] MEDS: methylPREDNISolone INJ 125 MG/2 ML VIAL (J2930) IV ×3 (05:45→22:09)
[2017-04-20] MEDS: VANCOMYCIN HCL 1,000 MG, VIAL MATE ADAPTER 1 EACH in D5W 250 ML IV ×2 (05:45→17:33)
[2017-04-20 07:48] LABS: BEDSIDE GLUCOSE 355 MG/DL (80-115)
[2017-04-20] MEDS: HumaLOG INSULIN (NovoLOG) PER UNIT SC ×4 (08:04→22:09)
[2017-04-20] MEDS: rOPINIRole 1MG TAB PO ×2 (08:57→20:12)
[2017-04-20] MEDS: ZONISAMIDE 50 MG CAP (ZONEGRAN) PO ×2 (08:57→20:12)
[2017-04-20] MEDS: FIBER-CON 625 MG TAB PO (08:57)
[2017-04-20] MEDS: LEVEMIR (INSULIN DETEMIR) 1 UNITS/0.01ML SC ×2 (08:57→20:11)
[2017-04-20] MEDS: METOPROLOL TARTRATE 100 MG TAB PO ×2 (08:57→20:12)
[2017-04-20] MEDS: TORSEMIDE 5MG TABLET PO (08:58)
[2017-04-20] MEDS: GABAPENTIN 300 MG CAP PO ×3 (08:58→20:12)
[2017-04-20] MEDS: MULTIVITAMINS/MINERALS THERAP 1 TAB PO (08:58)
[2017-04-20] MEDS: CYANOCOBALAMIN 500 MCG TAB PO (08:58)
[2017-04-20] MEDS: PRAVASTATIN 20 MG TAB PO (08:58)
[2017-04-20] MEDS: ALLOPURINOL 300 MG TAB PO (08:58)
[2017-04-20] MEDS: FERROUS SULFATE 325MG TAB PO (08:58)
[2017-04-20] MEDS: guaiFENesin ER 600 MG TAB PO ×2 (08:58→20:16)
[2017-04-20] MEDS: LACTOBACILLUS ACIDOPHILUS CAP (BACID) PO ×3 (08:58→20:12)
[2017-04-20] MEDS: DIGOXIN 0.125 MG TAB PO (08:59)
[2017-04-20] MEDS: DOCUSATE SODIUM 100 MG CAP PO ×2 (08:59→20:11)
[2017-04-20] MEDS: MAGNESIUM OXIDE 400 MG TAB (MAG-OX) PO (08:59)
[2017-04-20] MEDS: OMEPRAZOLE 20 MG CAP PO (08:59)
[2017-04-20] MEDS: APIXABAN 5 MG TAB (ELIQUIS) PO ×2 (08:59→20:12)
[2017-04-20] MEDS: ASPIRIN 81 MG ENTERIC TAB PO (08:59)
[2017-04-20 12:00] LABS: BEDSIDE GLUCOSE 408 MG/DL (80-115)
[2017-04-20 16:55] LABS: BEDSIDE GLUCOSE 303 MG/DL (80-115)
[2017-04-20 17:23] LABS: VANCOMYCIN LEVEL TROUGH 11.3 UG/ML (10.0-20.0)
[2017-04-20] MEDS: VANCOMYCIN HCL 500 MG in D5W MINI-BAG PLUS 100 ML IV (18:53)
[2017-04-20] MEDS: SERTRALINE HCL 25 MG TABLET PO (20:11)
[2017-04-20 22:12] LABS: BEDSIDE GLUCOSE 468 MG/DL (80-115)
[2017-04-21] MEDS: PIPERACILLIN/TAZOBACTAM SOD 3.375 GM in APPROPRIATE DILUENT 1 EA IV ×3 (00:08→16:17)
[2017-04-21] MEDS: VANCOMYCIN HCL 1,000 MG, VIAL MATE ADAPTER 1 EACH in D5W 250 ML IV ×2 (02:16→14:04)
[2017-04-21 05:17] LABS: HEMATOCRIT 29.2 % (42.0-52.0); HEMOGLOBIN 9.2 g/dl (14.0-18.0); MEAN CORPUSCULAR HEMOGLOBIN 32.7 pg (27.0-33.0); MEAN CORPUSCULAR HGB CONC 31.5 g/dl (32.0-36.5); MEAN CORPUSCULAR VOLUME 103.9 fl (80.0-96.0); PLATELET COUNT, AUTOMATED 116 10^3/uL (150-450); RED BLOOD COUNT 2.81 10^6/uL (4.30-6.10); RED CELL DISTRIBUTION WIDTH 16.9 % (11.5-14.5); WHITE BLOOD COUNT 8.6 10^3/uL (4.0-10.0)
[2017-04-21 05:43] LABS: ANION GAP 10 MEQ/L (8-16); BLOOD UREA NITROGEN 31 MG/DL (7-18); CALCIUM LEVEL 8.6 MG/DL (8.8-10.2); CARBON DIOXIDE LEVEL 28 MEQ/L (21-32); CHLORIDE LEVEL 106 MEQ/L (98-107); CREATININE FOR GFR 1.17 MG/DL (0.70-1.30); GLOMERULAR FILTRATION RATE > 60.0 (>49); GLUCOSE, FASTING 392 MG/DL (70-100); POTASSIUM SERUM 4.3 MEQ/L (3.5-5.1); SODIUM LEVEL 144 MEQ/L (136-145)
[2017-04-21] MEDS: methylPREDNISolone INJ 125 MG/2 ML VIAL (J2930) IV ×2 (06:05→17:19)
[2017-04-21] MEDS: HumaLOG INSULIN (NovoLOG) PER UNIT SC ×4 (07:06→21:59)
[2017-04-21 07:09] LABS: BEDSIDE GLUCOSE 356 MG/DL (80-115)
[2017-04-21] MEDS: IPRATROPIUM 0.5MG/ALBUTEROL 2.5MG INH SOL UD 3ML (DUONEB)(J7620) NEB ×2 (07:26→23:29)
[2017-04-21] MEDS: DOCUSATE SODIUM 100 MG CAP PO ×2 (09:00→22:00)
[2017-04-21] MEDS: TORSEMIDE 5MG TABLET PO (09:11)
[2017-04-21] MEDS: rOPINIRole 1MG TAB PO ×2 (09:11→22:00)
[2017-04-21] MEDS: FIBER-CON 625 MG TAB PO (09:11)
[2017-04-21] MEDS: ZONISAMIDE 50 MG CAP (ZONEGRAN) PO ×2 (09:11→22:02)
[2017-04-21] MEDS: FERROUS SULFATE 325MG TAB PO (09:11)
[2017-04-21] MEDS: METOPROLOL TARTRATE 100 MG TAB PO ×2 (09:12→22:01)
[2017-04-21] MEDS: OMEPRAZOLE 20 MG CAP PO (09:12)
[2017-04-21] MEDS: LACTOBACILLUS ACIDOPHILUS CAP (BACID) PO ×3 (09:12→22:01)
[2017-04-21] MEDS: MULTIVITAMINS/MINERALS THERAP 1 TAB PO (09:12)
[2017-04-21] MEDS: DIGOXIN 0.125 MG TAB PO (09:12)
[2017-04-21] MEDS: PRAVASTATIN 20 MG TAB PO (09:12)
[2017-04-21] MEDS: MAGNESIUM OXIDE 400 MG TAB (MAG-OX) PO (09:12)
[2017-04-21] MEDS: guaiFENesin ER 600 MG TAB PO ×2 (09:13→22:02)
[2017-04-21] MEDS: ALLOPURINOL 300 MG TAB PO (09:13)
[2017-04-21] MEDS: ASPIRIN 81 MG ENTERIC TAB PO (09:13)
[2017-04-21] MEDS: APIXABAN 5 MG TAB (ELIQUIS) PO ×2 (09:13→22:00)
[2017-04-21] MEDS: CYANOCOBALAMIN 500 MCG TAB PO (09:13)
[2017-04-21] MEDS: LEVEMIR (INSULIN DETEMIR) 1 UNITS/0.01ML SC ×2 (09:13→21:59)
[2017-04-21] MEDS: GABAPENTIN 300 MG CAP PO ×3 (09:13→22:02)
[2017-04-21 11:50] LABS: BEDSIDE GLUCOSE 450 MG/DL (80-115)
[2017-04-21] MEDS: ACETAMINOPHEN TAB 650MG DOSE (2X325MG) PO (14:04)
[2017-04-21 16:19] LABS: BEDSIDE GLUCOSE 385 MG/DL (80-115)
[2017-04-21 20:58] LABS: BEDSIDE GLUCOSE 366 MG/DL (80-115)
[2017-04-21] MEDS: SERTRALINE HCL 25 MG TABLET PO (22:01)
[2017-04-21] MEDS: SODIUM CHLORIDE 0.9% INJ 10 ML SYR IV (22:02)
[2017-04-22] MEDS: PIPERACILLIN/TAZOBACTAM SOD 3.375 GM in APPROPRIATE DILUENT 1 EA IV ×2 (02:13→08:23)
[2017-04-22] MEDS: VANCOMYCIN HCL 1,000 MG, VIAL MATE ADAPTER 1 EACH in D5W 250 ML IV (02:51)
[2017-04-22] MEDS: SODIUM CHLORIDE 0.9% INJ 10 ML SYR IV ×3 (06:00→21:16)
[2017-04-22] MEDS: methylPREDNISolone INJ 125 MG/2 ML VIAL (J2930) IV ×2 (06:54→17:13)
[2017-04-22 07:06] LABS: HEMATOCRIT 30.1 % (42.0-52.0); HEMOGLOBIN 9.6 g/dl (14.0-18.0); MEAN CORPUSCULAR HEMOGLOBIN 33.1 pg (27.0-33.0); MEAN CORPUSCULAR HGB CONC 31.9 g/dl (32.0-36.5); MEAN CORPUSCULAR VOLUME 103.8 fl (80.0-96.0); PLATELET COUNT, AUTOMATED 118 10^3/uL (150-450); WHITE BLOOD COUNT 7.7 10^3/uL (4.0-10.0)
[2017-04-22] MEDS: IPRATROPIUM 0.5MG/ALBUTEROL 2.5MG INH SOL UD 3ML (DUONEB)(J7620) NEB ×3 (07:33→23:27)
[2017-04-22 07:34] LABS: ANION GAP 7 MEQ/L (8-16); BLOOD UREA NITROGEN 32 MG/DL (7-18); CALCIUM LEVEL 8.8 MG/DL (8.8-10.2); CARBON DIOXIDE LEVEL 31 MEQ/L (21-32); CHLORIDE LEVEL 100 MEQ/L (98-107); CREATININE FOR GFR 1.07 MG/DL (0.70-1.30); GLOMERULAR FILTRATION RATE > 60.0 (>49); GLUCOSE, FASTING 235 MG/DL (70-100); POTASSIUM SERUM 3.8 MEQ/L (3.5-5.1); SODIUM LEVEL 138 MEQ/L (136-145)
[2017-04-22] MEDS: FIBER-CON 625 MG TAB PO (08:21)
[2017-04-22] MEDS: PRAVASTATIN 20 MG TAB PO (08:21)
[2017-04-22] MEDS: OMEPRAZOLE 20 MG CAP PO (08:21)
[2017-04-22] MEDS: DOCUSATE SODIUM 100 MG CAP PO ×2 (08:21→21:00)
[2017-04-22] MEDS: ASPIRIN 81 MG ENTERIC TAB PO (08:21)
[2017-04-22] MEDS: MAGNESIUM OXIDE 400 MG TAB (MAG-OX) PO (08:21)
[2017-04-22] MEDS: MULTIVITAMINS/MINERALS THERAP 1 TAB PO (08:21)
[2017-04-22] MEDS: FERROUS SULFATE 325MG TAB PO (08:21)
[2017-04-22] MEDS: METOPROLOL TARTRATE 100 MG TAB PO ×2 (08:21→21:25)
[2017-04-22] MEDS: rOPINIRole 1MG TAB PO ×2 (08:21→21:25)
[2017-04-22] MEDS: TORSEMIDE 5MG TABLET PO (08:21)
[2017-04-22] MEDS: CYANOCOBALAMIN 500 MCG TAB PO (08:21)
[2017-04-22] MEDS: guaiFENesin ER 600 MG TAB PO ×2 (08:21→21:25)
[2017-04-22] MEDS: LACTOBACILLUS ACIDOPHILUS CAP (BACID) PO ×3 (08:21→21:25)
[2017-04-22] MEDS: APIXABAN 5 MG TAB (ELIQUIS) PO ×2 (08:22→21:24)
[2017-04-22] MEDS: DIGOXIN 0.125 MG TAB PO (08:22)
[2017-04-22] MEDS: LEVEMIR (INSULIN DETEMIR) 1 UNITS/0.01ML SC ×2 (08:22→21:24)
[2017-04-22] MEDS: GABAPENTIN 300 MG CAP PO ×3 (08:22→21:24)
[2017-04-22] MEDS: ALLOPURINOL 300 MG TAB PO (08:22)
[2017-04-22] MEDS: HumaLOG INSULIN (NovoLOG) PER UNIT SC ×4 (08:23→21:23)
[2017-04-22] MEDS: ZONISAMIDE 50 MG CAP (ZONEGRAN) PO ×2 (08:48→21:25)
[2017-04-22 11:44] LABS: BEDSIDE GLUCOSE 348 MG/DL (80-115)
[2017-04-22] MEDS: LevoFLOXacin 500 MG TABLET PO (12:21)
[2017-04-22 13:47] LABS: FERRITIN 278 NG/ML (26-388); IRON (FE) 95 UG/DL (65-175); PERCENT SATURATION 32.2 % (19.7-50.0); TOTAL IRON BINDING CAPACITY 295 UG/DL (250-450)
[2017-04-22 13:48] LABS: VITAMIN B12 LEVEL 972 PG/ML (247-911)
[2017-04-22 17:10] LABS: BEDSIDE GLUCOSE 275 MG/DL (80-115)
[2017-04-22 20:58] LABS: BEDSIDE GLUCOSE 334 MG/DL (80-115)
[2017-04-22] MEDS: SERTRALINE HCL 25 MG TABLET PO (21:25)
[2017-04-22] MEDS: ACETAMINOPHEN TAB 650MG DOSE (2X325MG) PO (21:26)
[2017-04-23] MEDS: SODIUM CHLORIDE 0.9% INJ 10 ML SYR IV ×3 (05:29→22:00)
[2017-04-23] MEDS: LevoFLOXacin 500 MG TABLET PO (05:29)
[2017-04-23] MEDS: methylPREDNISolone INJ 125 MG/2 ML VIAL (J2930) IV (05:29)
[2017-04-23 05:48] LABS: HEMATOCRIT 30.4 % (42.0-52.0); HEMOGLOBIN 9.7 g/dl (14.0-18.0); MEAN CORPUSCULAR HEMOGLOBIN 33.4 pg (27.0-33.0); MEAN CORPUSCULAR HGB CONC 31.9 g/dl (32.0-36.5); MEAN CORPUSCULAR VOLUME 104.8 fl (80.0-96.0); PLATELET COUNT, AUTOMATED 121 10^3/uL (150-450); WHITE BLOOD COUNT 6.4 10^3/uL (4.0-10.0)
[2017-04-23 06:07] LABS: ANION GAP 6 MEQ/L (8-16); BLOOD UREA NITROGEN 35 MG/DL (7-18); CALCIUM LEVEL 8.8 MG/DL (8.8-10.2); CARBON DIOXIDE LEVEL 33 MEQ/L (21-32); CHLORIDE LEVEL 98 MEQ/L (98-107); CREATININE FOR GFR 1.15 MG/DL (0.70-1.30); GLOMERULAR FILTRATION RATE > 60.0 (>49); GLUCOSE, FASTING 334 MG/DL (70-100); POTASSIUM SERUM 4.1 MEQ/L (3.5-5.1); SODIUM LEVEL 137 MEQ/L (136-145)
[2017-04-23] MEDS: IPRATROPIUM 0.5MG/ALBUTEROL 2.5MG INH SOL UD 3ML (DUONEB)(J7620) NEB ×3 (07:15→23:01)
[2017-04-23] MEDS: FIBER-CON 625 MG TAB PO (07:56)
[2017-04-23] MEDS: FERROUS SULFATE 325MG TAB PO (07:57)
[2017-04-23] MEDS: PRAVASTATIN 20 MG TAB PO (07:57)
[2017-04-23] MEDS: TORSEMIDE 5MG TABLET PO (07:57)
[2017-04-23] MEDS: LACTOBACILLUS ACIDOPHILUS CAP (BACID) PO ×3 (07:57→20:00)
[2017-04-23] MEDS: GABAPENTIN 300 MG CAP PO ×3 (07:57→20:00)
[2017-04-23] MEDS: MAGNESIUM OXIDE 400 MG TAB (MAG-OX) PO (07:58)
[2017-04-23] MEDS: rOPINIRole 1MG TAB PO ×2 (07:58→20:00)
[2017-04-23] MEDS: guaiFENesin ER 600 MG TAB PO ×2 (07:58→20:00)
[2017-04-23] MEDS: ALLOPURINOL 300 MG TAB PO (07:58)
[2017-04-23] MEDS: ASPIRIN 81 MG ENTERIC TAB PO (07:58)
[2017-04-23] MEDS: OMEPRAZOLE 20 MG CAP PO (07:58)
[2017-04-23] MEDS: CYANOCOBALAMIN 500 MCG TAB PO (07:58)
[2017-04-23] MEDS: MULTIVITAMINS/MINERALS THERAP 1 TAB PO (07:59)
[2017-04-23] MEDS: APIXABAN 5 MG TAB (ELIQUIS) PO ×2 (07:59→19:59)
[2017-04-23] MEDS: LEVEMIR (INSULIN DETEMIR) 1 UNITS/0.01ML SC ×2 (08:02→20:01)
[2017-04-23] MEDS: METOPROLOL TARTRATE 100 MG TAB PO ×2 (08:02→20:01)
[2017-04-23] MEDS: DIGOXIN 0.125 MG TAB PO (08:02)
[2017-04-23] MEDS: HumaLOG INSULIN (NovoLOG) PER UNIT SC ×4 (08:03→20:01)
[2017-04-23] MEDS: DOCUSATE SODIUM 100 MG CAP PO ×2 (08:05→20:00)
[2017-04-23] MEDS: ZONISAMIDE 50 MG CAP (ZONEGRAN) PO ×2 (09:50→20:00)
[2017-04-23] MEDS: DOXYCYCLINE HYCLATE 100 MG TAB PO ×2 (12:05→20:00)
[2017-04-23 14:18] LABS: TRANSFERRIN 243 mg/dL (200-370)
[2017-04-23] MEDS: SERTRALINE HCL 25 MG TABLET PO (19:59)
[2017-04-23 23:26] LABS: BEDSIDE GLUCOSE 343 MG/DL (80-115)
[2017-04-23 23:26] LABS: BEDSIDE GLUCOSE 288 MG/DL (80-115)
[2017-04-23 23:26] LABS: BEDSIDE GLUCOSE 387 MG/DL (80-115)
[2017-04-24] MEDS: SODIUM CHLORIDE 0.9% INJ 10 ML SYR IV ×4 (05:14→21:49)
[2017-04-24] MEDS: LevoFLOXacin 500 MG TABLET PO (05:14)
[2017-04-24 05:23] LABS: HEMOGLOBIN 10.5 g/dl (14.0-18.0); MEAN CORPUSCULAR HEMOGLOBIN 33.1 pg (27.0-33.0); MEAN CORPUSCULAR HGB CONC 31.8 g/dl (32.0-36.5); MEAN CORPUSCULAR VOLUME 104.1 fl (80.0-96.0); PLATELET COUNT, AUTOMATED 136 10^3/uL (150-450); RED BLOOD COUNT 3.17 10^6/uL (4.30-6.10); WHITE BLOOD COUNT 6.2 10^3/uL (4.0-10.0)
[2017-04-24 06:14] LABS: ANION GAP 9 MEQ/L (8-16); BLOOD UREA NITROGEN 38 MG/DL (7-18); CARBON DIOXIDE LEVEL 32 MEQ/L (21-32); CHLORIDE LEVEL 102 MEQ/L (98-107); CREATININE FOR GFR 1.14 MG/DL (0.70-1.30); GLOMERULAR FILTRATION RATE > 60.0 (>49); GLUCOSE, FASTING 182 MG/DL (70-100); SODIUM LEVEL 143 MEQ/L (136-145)
[2017-04-24 06:57] LABS: BEDSIDE GLUCOSE 175 MG/DL (80-115)
[2017-04-24] MEDS: IPRATROPIUM 0.5MG/ALBUTEROL 2.5MG INH SOL UD 3ML (DUONEB)(J7620) NEB ×3 (07:37→23:22)
[2017-04-24] MEDS: HumaLOG INSULIN (NovoLOG) PER UNIT SC ×4 (08:10→21:49)
[2017-04-24] MEDS: LEVEMIR (INSULIN DETEMIR) 1 UNITS/0.01ML SC ×2 (08:10→21:49)
[2017-04-24] MEDS: APIXABAN 5 MG TAB (ELIQUIS) PO ×2 (08:10→21:48)
[2017-04-24] MEDS: FERROUS SULFATE 325MG TAB PO (08:12)
[2017-04-24] MEDS: MULTIVITAMINS/MINERALS THERAP 1 TAB PO (08:12)
[2017-04-24] MEDS: predniSONE 20 MG TAB PO (08:13)
[2017-04-24] MEDS: OMEPRAZOLE 20 MG CAP PO (08:13)
[2017-04-24] MEDS: MAGNESIUM OXIDE 400 MG TAB (MAG-OX) PO (08:13)
[2017-04-24] MEDS: DIGOXIN 0.125 MG TAB PO (08:13)
[2017-04-24] MEDS: GABAPENTIN 300 MG CAP PO ×3 (08:14→21:48)
[2017-04-24] MEDS: ALLOPURINOL 300 MG TAB PO (08:14)
[2017-04-24] MEDS: FIBER-CON 625 MG TAB PO (08:14)
[2017-04-24] MEDS: DOXYCYCLINE HYCLATE 100 MG TAB PO ×2 (08:14→21:48)
[2017-04-24] MEDS: ASPIRIN 81 MG ENTERIC TAB PO (08:14)
[2017-04-24] MEDS: LACTOBACILLUS ACIDOPHILUS CAP (BACID) PO ×3 (08:14→21:48)
[2017-04-24] MEDS: CYANOCOBALAMIN 500 MCG TAB PO (08:14)
[2017-04-24] MEDS: METOPROLOL TARTRATE 100 MG TAB PO ×2 (08:14→21:48)
[2017-04-24] MEDS: guaiFENesin ER 600 MG TAB PO ×2 (08:14→21:48)
[2017-04-24] MEDS: DOCUSATE SODIUM 100 MG CAP PO ×2 (08:14→21:00)
[2017-04-24] MEDS: rOPINIRole 1MG TAB PO ×2 (08:14→21:47)
[2017-04-24] MEDS: PRAVASTATIN 20 MG TAB PO (08:14)
[2017-04-24] MEDS: ZONISAMIDE 50 MG CAP (ZONEGRAN) PO ×2 (08:14→21:47)
[2017-04-24] MEDS: TORSEMIDE 5MG TABLET PO (08:14)
[2017-04-24 11:59] LABS: BEDSIDE GLUCOSE 185 MG/DL (80-115)
[2017-04-24] MEDS: FUROSEMIDE 40 MG/4 ML VIAL (J1940) IV (16:34)
[2017-04-24 17:09] LABS: BEDSIDE GLUCOSE 371 MG/DL (80-115)
[2017-04-24 20:51] LABS: BEDSIDE GLUCOSE 346 MG/DL (80-115)
[2017-04-24] MEDS: SERTRALINE HCL 25 MG TABLET PO (21:48)
[2017-04-25] MEDS: SODIUM CHLORIDE 0.9% INJ 10 ML SYR IV ×3 (05:18→22:30)
[2017-04-25] MEDS: LevoFLOXacin 500 MG TABLET PO (05:18)
[2017-04-25 05:33] LABS: HEMATOCRIT 30.7 % (42.0-52.0); HEMOGLOBIN 10.1 g/dl (14.0-18.0); MEAN CORPUSCULAR HEMOGLOBIN 34.2 pg (27.0-33.0); MEAN CORPUSCULAR HGB CONC 32.9 g/dl (32.0-36.5); MEAN CORPUSCULAR VOLUME 104.1 fl (80.0-96.0); PLATELET COUNT, AUTOMATED 120 10^3/uL (150-450); RED BLOOD COUNT 2.95 10^6/uL (4.30-6.10); RED CELL DISTRIBUTION WIDTH 17.1 % (11.5-14.5); WHITE BLOOD COUNT 6.4 10^3/uL (4.0-10.0)
[2017-04-25 06:12] LABS: ANION GAP 4 MEQ/L (8-16); BLOOD UREA NITROGEN 41 MG/DL (7-18); CARBON DIOXIDE LEVEL 37 MEQ/L (21-32); CHLORIDE LEVEL 99 MEQ/L (98-107); GLOMERULAR FILTRATION RATE > 60.0 (>49); GLUCOSE, FASTING 150 MG/DL (70-100); POTASSIUM SERUM 3.6 MEQ/L (3.5-5.1); SODIUM LEVEL 140 MEQ/L (136-145)
[2017-04-25] MEDS: LEVEMIR (INSULIN DETEMIR) 1 UNITS/0.01ML SC ×2 (08:15→22:30)
[2017-04-25] MEDS: APIXABAN 5 MG TAB (ELIQUIS) PO ×2 (08:16→22:28)
[2017-04-25] MEDS: GABAPENTIN 300 MG CAP PO ×3 (08:16→22:27)
[2017-04-25] MEDS: DOXYCYCLINE HYCLATE 100 MG TAB PO ×2 (08:16→22:27)
[2017-04-25] MEDS: predniSONE 20 MG TAB PO (08:16)
[2017-04-25] MEDS: guaiFENesin ER 600 MG TAB PO ×2 (08:16→22:28)
[2017-04-25] MEDS: ASPIRIN 81 MG ENTERIC TAB PO (08:16)
[2017-04-25] MEDS: MAGNESIUM OXIDE 400 MG TAB (MAG-OX) PO (08:16)
[2017-04-25] MEDS: ALLOPURINOL 300 MG TAB PO (08:16)
[2017-04-25] MEDS: IPRATROPIUM 0.5MG/ALBUTEROL 2.5MG INH SOL UD 3ML (DUONEB)(J7620) NEB ×3 (08:16→23:31)
[2017-04-25] MEDS: rOPINIRole 1MG TAB PO ×2 (08:16→22:28)
[2017-04-25] MEDS: FUROSEMIDE 40 MG/4 ML VIAL (J1940) IV ×3 (08:16→16:00)
[2017-04-25] MEDS: LACTOBACILLUS ACIDOPHILUS CAP (BACID) PO ×3 (08:16→22:28)
[2017-04-25] MEDS: MULTIVITAMINS/MINERALS THERAP 1 TAB PO (08:16)
[2017-04-25] MEDS: FIBER-CON 625 MG TAB PO (08:16)
[2017-04-25] MEDS: CYANOCOBALAMIN 500 MCG TAB PO (08:16)
[2017-04-25] MEDS: DOCUSATE SODIUM 100 MG CAP PO ×2 (08:17→21:00)
[2017-04-25] MEDS: PRAVASTATIN 20 MG TAB PO (08:17)
[2017-04-25] MEDS: OMEPRAZOLE 20 MG CAP PO (08:17)
[2017-04-25] MEDS: METOPROLOL TARTRATE 100 MG TAB PO ×2 (08:17→22:28)
[2017-04-25] MEDS: DIGOXIN 0.125 MG TAB PO (08:17)
[2017-04-25] MEDS: FERROUS SULFATE 325MG TAB PO (08:17)
[2017-04-25] MEDS: HumaLOG INSULIN (NovoLOG) PER UNIT SC ×4 (08:18→22:29)
[2017-04-25] MEDS: ZONISAMIDE 50 MG CAP (ZONEGRAN) PO ×2 (09:55→22:41)
[2017-04-25 12:33] LABS: BEDSIDE GLUCOSE 181 MG/DL (80-115)
[2017-04-25 17:24] LABS: BEDSIDE GLUCOSE 390 MG/DL (80-115)
[2017-04-25 20:32] LABS: BEDSIDE GLUCOSE 352 MG/DL (80-115)
[2017-04-25] MEDS: SERTRALINE HCL 25 MG TABLET PO (22:28)
[2017-04-26] MEDS: LevoFLOXacin 500 MG TABLET PO (05:22)
[2017-04-26] MEDS: SODIUM CHLORIDE 0.9% INJ 10 ML SYR IV ×3 (05:23→21:24)
[2017-04-26 05:43] LABS: HEMATOCRIT 30.9 % (42.0-52.0); MEAN CORPUSCULAR HEMOGLOBIN 33.8 pg (27.0-33.0); MEAN CORPUSCULAR HGB CONC 32.4 g/dl (32.0-36.5); MEAN CORPUSCULAR VOLUME 104.4 fl (80.0-96.0); PLATELET COUNT, AUTOMATED 119 10^3/uL (150-450); RED BLOOD COUNT 2.96 10^6/uL (4.30-6.10); RED CELL DISTRIBUTION WIDTH 16.9 % (11.5-14.5); WHITE BLOOD COUNT 5.8 10^3/uL (4.0-10.0)
[2017-04-26 06:03] LABS: ANION GAP 7 MEQ/L (8-16); BLOOD UREA NITROGEN 35 MG/DL (7-18); CALCIUM LEVEL 9.1 MG/DL (8.8-10.2); CARBON DIOXIDE LEVEL 34 MEQ/L (21-32); CHLORIDE LEVEL 99 MEQ/L (98-107); CREATININE FOR GFR 0.92 MG/DL (0.70-1.30); GLOMERULAR FILTRATION RATE > 60.0 (>49); GLUCOSE, FASTING 161 MG/DL (70-100); POTASSIUM SERUM 3.8 MEQ/L (3.5-5.1); SODIUM LEVEL 140 MEQ/L (136-145)
[2017-04-26] MEDS: IPRATROPIUM 0.5MG/ALBUTEROL 2.5MG INH SOL UD 3ML (DUONEB)(J7620) NEB ×3 (07:48→23:28)
[2017-04-26] MEDS: FUROSEMIDE 40 MG/4 ML VIAL (J1940) IV ×4 (08:25→23:57)
[2017-04-26] MEDS: FIBER-CON 625 MG TAB PO (08:25)
[2017-04-26] MEDS: GABAPENTIN 300 MG CAP PO ×3 (08:25→21:22)
[2017-04-26] MEDS: DIGOXIN 0.125 MG TAB PO (08:29)
[2017-04-26] MEDS: METOPROLOL TARTRATE 100 MG TAB PO ×2 (08:29→21:22)
[2017-04-26] MEDS: CYANOCOBALAMIN 500 MCG TAB PO (08:30)
[2017-04-26] MEDS: guaiFENesin ER 600 MG TAB PO ×2 (08:30→21:22)
[2017-04-26] MEDS: PRAVASTATIN 20 MG TAB PO (08:30)
[2017-04-26] MEDS: DOXYCYCLINE HYCLATE 100 MG TAB PO ×2 (08:30→21:22)
[2017-04-26] MEDS: FERROUS SULFATE 325MG TAB PO (08:30)
[2017-04-26] MEDS: OMEPRAZOLE 20 MG CAP PO (08:30)
[2017-04-26] MEDS: APIXABAN 5 MG TAB (ELIQUIS) PO ×2 (08:30→21:23)
[2017-04-26] MEDS: predniSONE 20 MG TAB PO (08:30)
[2017-04-26] MEDS: ALLOPURINOL 300 MG TAB PO (08:31)
[2017-04-26] MEDS: MAGNESIUM OXIDE 400 MG TAB (MAG-OX) PO (08:31)
[2017-04-26] MEDS: rOPINIRole 1MG TAB PO ×2 (08:31→21:23)
[2017-04-26] MEDS: ZONISAMIDE 50 MG CAP (ZONEGRAN) PO ×2 (08:31→21:22)
[2017-04-26] MEDS: LACTOBACILLUS ACIDOPHILUS CAP (BACID) PO ×3 (08:31→21:22)
[2017-04-26] MEDS: MULTIVITAMINS/MINERALS THERAP 1 TAB PO (08:31)
[2017-04-26] MEDS: DOCUSATE SODIUM 100 MG CAP PO ×2 (08:32→21:00)
[2017-04-26] MEDS: LEVEMIR (INSULIN DETEMIR) 1 UNITS/0.01ML SC ×2 (08:32→21:24)
[2017-04-26] MEDS: HumaLOG INSULIN (NovoLOG) PER UNIT SC ×4 (08:32→21:24)
[2017-04-26] MEDS: ASPIRIN 81 MG ENTERIC TAB PO (08:33)
[2017-04-26 11:48] LABS: BEDSIDE GLUCOSE 141 MG/DL (80-115)
[2017-04-26 16:40] LABS: BEDSIDE GLUCOSE 270 MG/DL (80-115)
[2017-04-26 20:44] LABS: BEDSIDE GLUCOSE 339 MG/DL (80-115)
[2017-04-26] MEDS: SERTRALINE HCL 25 MG TABLET PO (21:22)
[2017-04-27] MEDS: LevoFLOXacin 500 MG TABLET PO (05:23)
[2017-04-27] MEDS: SODIUM CHLORIDE 0.9% INJ 10 ML SYR IV ×3 (05:23→21:21)
[2017-04-27] MEDS: NYSTATIN 500,000 U/5 ML SUSP UDC SS ×2 (05:32→14:19)
[2017-04-27 06:36] LABS: BEDSIDE GLUCOSE 123 MG/DL (80-115)
[2017-04-27] MEDS: IPRATROPIUM 0.5MG/ALBUTEROL 2.5MG INH SOL UD 3ML (DUONEB)(J7620) NEB ×3 (08:07→23:08)
[2017-04-27] MEDS: GABAPENTIN 300 MG CAP PO ×3 (08:23→21:21)
[2017-04-27] MEDS: FIBER-CON 625 MG TAB PO (08:23)
[2017-04-27] MEDS: rOPINIRole 1MG TAB PO ×2 (08:24→21:21)
[2017-04-27] MEDS: DOCUSATE SODIUM 100 MG CAP PO ×3 (08:24→21:23)
[2017-04-27] MEDS: LACTOBACILLUS ACIDOPHILUS CAP (BACID) PO ×3 (08:24→21:22)
[2017-04-27] MEDS: predniSONE 20 MG TAB PO (08:24)
[2017-04-27] MEDS: ZONISAMIDE 50 MG CAP (ZONEGRAN) PO ×2 (08:24→21:23)
[2017-04-27] MEDS: FERROUS SULFATE 325MG TAB PO (08:24)
[2017-04-27] MEDS: OMEPRAZOLE 20 MG CAP PO (08:25)
[2017-04-27] MEDS: MULTIVITAMINS/MINERALS THERAP 1 TAB PO (08:25)
[2017-04-27] MEDS: DOXYCYCLINE HYCLATE 100 MG TAB PO ×2 (08:25→21:22)
[2017-04-27] MEDS: ALLOPURINOL 300 MG TAB PO (08:25)
[2017-04-27] MEDS: guaiFENesin ER 600 MG TAB PO ×2 (08:25→21:23)
[2017-04-27] MEDS: PRAVASTATIN 20 MG TAB PO (08:25)
[2017-04-27] MEDS: ASPIRIN 81 MG ENTERIC TAB PO (08:26)
[2017-04-27] MEDS: METOPROLOL TARTRATE 100 MG TAB PO ×2 (08:26→21:22)
[2017-04-27] MEDS: DIGOXIN 0.125 MG TAB PO (08:26)
[2017-04-27] MEDS: APIXABAN 5 MG TAB (ELIQUIS) PO ×2 (08:27→21:23)
[2017-04-27] MEDS: CYANOCOBALAMIN 500 MCG TAB PO (08:27)
[2017-04-27] MEDS: MAGNESIUM OXIDE 400 MG TAB (MAG-OX) PO (08:27)
[2017-04-27] MEDS: HumaLOG INSULIN (NovoLOG) PER UNIT SC ×4 (08:28→21:20)
[2017-04-27] MEDS: FUROSEMIDE 40 MG/4 ML VIAL (J1940) IV ×2 (08:29→17:25)
[2017-04-27] MEDS: LEVEMIR (INSULIN DETEMIR) 1 UNITS/0.01ML SC ×2 (08:30→21:21)
[2017-04-27 11:41] LABS: BEDSIDE GLUCOSE 116 MG/DL (80-115)
[2017-04-27] MEDS: POTASSIUM CHLORIDE 10 MEQ SR TABLET PO (11:53)
[2017-04-27 17:07] LABS: BEDSIDE GLUCOSE 289 MG/DL (80-115)
[2017-04-27 20:26] LABS: BEDSIDE GLUCOSE 274 MG/DL (80-115)
[2017-04-27] MEDS: SERTRALINE HCL 25 MG TABLET PO (21:22)
[2017-04-28] MEDS: FUROSEMIDE 40 MG/4 ML VIAL (J1940) IV ×3 (00:32→16:22)
[2017-04-28] MEDS: NYSTATIN 500,000 U/5 ML SUSP UDC SS ×2 (00:53→14:48)
[2017-04-28] MEDS: SODIUM CHLORIDE 0.9% INJ 10 ML SYR IV ×3 (05:18→21:32)
[2017-04-28 06:00] LABS: HEMATOCRIT 34.4 % (42.0-52.0); HEMOGLOBIN 11.1 g/dl (14.0-18.0); MEAN CORPUSCULAR HEMOGLOBIN 33.4 pg (27.0-33.0); MEAN CORPUSCULAR HGB CONC 32.3 g/dl (32.0-36.5); MEAN CORPUSCULAR VOLUME 103.6 fl (80.0-96.0); PLATELET COUNT, AUTOMATED 142 10^3/uL (150-450); RED BLOOD COUNT 3.32 10^6/uL (4.30-6.10); RED CELL DISTRIBUTION WIDTH 16.8 % (11.5-14.5); WHITE BLOOD COUNT 6.5 10^3/uL (4.0-10.0)
[2017-04-28 06:20] LABS: ANION GAP 8 MEQ/L (8-16); BLOOD UREA NITROGEN 39 MG/DL (7-18); CALCIUM LEVEL 8.7 MG/DL (8.8-10.2); CARBON DIOXIDE LEVEL 35 MEQ/L (21-32); CHLORIDE LEVEL 98 MEQ/L (98-107); CREATININE FOR GFR 1.12 MG/DL (0.70-1.30); GLOMERULAR FILTRATION RATE > 60.0 (>49); GLUCOSE, FASTING 134 MG/DL (70-100); POTASSIUM SERUM 3.6 MEQ/L (3.5-5.1); SODIUM LEVEL 141 MEQ/L (136-145)
[2017-04-28 07:04] LABS: BEDSIDE GLUCOSE 134 MG/DL (80-115)
[2017-04-28] MEDS: HumaLOG INSULIN (NovoLOG) PER UNIT SC ×4 (07:50→21:30)
[2017-04-28] MEDS: IPRATROPIUM 0.5MG/ALBUTEROL 2.5MG INH SOL UD 3ML (DUONEB)(J7620) NEB ×2 (08:07→15:46)
[2017-04-28] MEDS: LEVEMIR (INSULIN DETEMIR) 1 UNITS/0.01ML SC ×2 (08:46→21:30)
[2017-04-28] MEDS: OMEPRAZOLE 20 MG CAP PO (08:47)
[2017-04-28] MEDS: LACTOBACILLUS ACIDOPHILUS CAP (BACID) PO ×3 (08:47→21:31)
[2017-04-28] MEDS: DIGOXIN 0.125 MG TAB PO (08:47)
[2017-04-28] MEDS: CYANOCOBALAMIN 500 MCG TAB PO (08:47)
[2017-04-28] MEDS: ALLOPURINOL 300 MG TAB PO (08:47)
[2017-04-28] MEDS: MULTIVITAMINS/MINERALS THERAP 1 TAB PO (08:47)
[2017-04-28] MEDS: POTASSIUM CHLORIDE 10 MEQ SR TABLET PO (08:48)
[2017-04-28] MEDS: ZONISAMIDE 50 MG CAP (ZONEGRAN) PO ×2 (08:48→21:31)
[2017-04-28] MEDS: DOXYCYCLINE HYCLATE 100 MG TAB PO ×2 (08:48→21:31)
[2017-04-28] MEDS: APIXABAN 5 MG TAB (ELIQUIS) PO ×2 (08:48→21:31)
[2017-04-28] MEDS: PRAVASTATIN 20 MG TAB PO (08:48)
[2017-04-28] MEDS: FERROUS SULFATE 325MG TAB PO (08:49)
[2017-04-28] MEDS: GABAPENTIN 300 MG CAP PO ×3 (08:49→21:32)
[2017-04-28] MEDS: METOPROLOL TARTRATE 100 MG TAB PO ×2 (08:49→21:32)
[2017-04-28] MEDS: DOCUSATE SODIUM 100 MG CAP PO ×2 (08:50→21:31)
[2017-04-28] MEDS: rOPINIRole 1MG TAB PO ×2 (08:50→21:31)
[2017-04-28] MEDS: guaiFENesin ER 600 MG TAB PO ×2 (08:50→21:31)
[2017-04-28] MEDS: predniSONE 20 MG TAB PO (08:50)
[2017-04-28] MEDS: MAGNESIUM OXIDE 400 MG TAB (MAG-OX) PO (08:50)
[2017-04-28] MEDS: ASPIRIN 81 MG ENTERIC TAB PO (08:50)
[2017-04-28] MEDS: FIBER-CON 625 MG TAB PO (08:50)
[2017-04-28 11:44] LABS: BEDSIDE GLUCOSE 205 MG/DL (80-115)
[2017-04-28 16:59] LABS: BEDSIDE GLUCOSE 364 MG/DL (80-115)
[2017-04-28] MEDS: SERTRALINE HCL 25 MG TABLET PO (21:32)
[2017-04-29] MEDS: IPRATROPIUM 0.5MG/ALBUTEROL 2.5MG INH SOL UD 3ML (DUONEB)(J7620) NEB ×3 (00:16→16:00)
[2017-04-29 03:01] LABS: BEDSIDE GLUCOSE 346 MG/DL (80-115)
[2017-04-29] MEDS: SODIUM CHLORIDE 0.9% INJ 10 ML SYR IV ×4 (05:16→22:26)
[2017-04-29] MEDS: CLINDAMYCIN 150 MG CAP PO ×4 (05:16→22:00)
[2017-04-29 06:04] LABS: HEMATOCRIT 35.5 % (42.0-52.0); HEMOGLOBIN 11.3 g/dl (14.0-18.0); MEAN CORPUSCULAR HEMOGLOBIN 33.6 pg (27.0-33.0); MEAN CORPUSCULAR HGB CONC 31.8 g/dl (32.0-36.5); MEAN CORPUSCULAR VOLUME 105.7 fl (80.0-96.0); PLATELET COUNT, AUTOMATED 150 10^3/uL (150-450); RED BLOOD COUNT 3.36 10^6/uL (4.30-6.10); RED CELL DISTRIBUTION WIDTH 17.1 % (11.5-14.5); WHITE BLOOD COUNT 11.4 10^3/uL (4.0-10.0)
[2017-04-29 06:19] LABS: MAGNESIUM LEVEL 1.8 MG/DL (1.8-2.4)
[2017-04-29 06:22] LABS: ANION GAP 8 MEQ/L (8-16); BLOOD UREA NITROGEN 39 MG/DL (7-18); CALCIUM LEVEL 8.9 MG/DL (8.8-10.2); CARBON DIOXIDE LEVEL 35 MEQ/L (21-32); CHLORIDE LEVEL 100 MEQ/L (98-107); CREATININE FOR GFR 1.05 MG/DL (0.70-1.30); GLOMERULAR FILTRATION RATE > 60.0 (>49); GLUCOSE, FASTING 150 MG/DL (70-100); POTASSIUM SERUM 3.8 MEQ/L (3.5-5.1); SODIUM LEVEL 143 MEQ/L (136-145)
[2017-04-29] MEDS: TIOTROPIUM INHALER/CAPSULE (SPIRIVA) INH (07:36)
[2017-04-29] MEDS: SYMBICORT 160/4.5MCG INHALER 6GM INH ×2 (07:37→21:19)
[2017-04-29] MEDS: HumaLOG INSULIN (NovoLOG) PER UNIT SC ×4 (07:48→21:00)
[2017-04-29] MEDS: FUROSEMIDE 40 MG/4 ML VIAL (J1940) IV ×2 (07:49)
[2017-04-29] MEDS: guaiFENesin ER 600 MG TAB PO ×2 (08:47→21:23)
[2017-04-29] MEDS: LACTOBACILLUS ACIDOPHILUS CAP (BACID) PO ×3 (08:47→21:22)
[2017-04-29] MEDS: ZONISAMIDE 50 MG CAP (ZONEGRAN) PO ×2 (08:47→21:00)
[2017-04-29] MEDS: predniSONE 20 MG TAB PO (08:47)
[2017-04-29] MEDS: POTASSIUM CHLORIDE 10 MEQ SR TABLET PO (08:47)
[2017-04-29] MEDS: LEVEMIR (INSULIN DETEMIR) 1 UNITS/0.01ML SC ×2 (08:47→21:00)
[2017-04-29] MEDS: APIXABAN 5 MG TAB (ELIQUIS) PO ×2 (08:48→21:22)
[2017-04-29] MEDS: MAGNESIUM OXIDE 400 MG TAB (MAG-OX) PO (08:48)
[2017-04-29] MEDS: FERROUS SULFATE 325MG TAB PO (08:48)
[2017-04-29] MEDS: MULTIVITAMINS/MINERALS THERAP 1 TAB PO (08:48)
[2017-04-29] MEDS: CYANOCOBALAMIN 500 MCG TAB PO (08:48)
[2017-04-29] MEDS: PRAVASTATIN 20 MG TAB PO (08:48)
[2017-04-29] MEDS: rOPINIRole 1MG TAB PO ×3 (08:48→21:25)
[2017-04-29] MEDS: DIGOXIN 0.125 MG TAB PO (08:48)
[2017-04-29] MEDS: OMEPRAZOLE 20 MG CAP PO (08:49)
[2017-04-29] MEDS: ALLOPURINOL 300 MG TAB PO (08:49)
[2017-04-29] MEDS: GABAPENTIN 300 MG CAP PO ×3 (08:49→21:23)
[2017-04-29] MEDS: METOPROLOL TARTRATE 100 MG TAB PO ×2 (08:49→21:22)
[2017-04-29] MEDS: ASPIRIN 81 MG ENTERIC TAB PO (08:49)
[2017-04-29] MEDS: FIBER-CON 625 MG TAB PO (08:50)
[2017-04-29] MEDS: DOCUSATE SODIUM 100 MG CAP PO ×2 (08:50→21:00)
[2017-04-29] MEDS: NYSTATIN 500,000 U/5 ML SUSP UDC SS (10:48)
[2017-04-29 11:57] LABS: BEDSIDE GLUCOSE 199 MG/DL (80-115)
[2017-04-29 14:37] LABS: ABG BASE EXCESS 4.1 (-2.0-2.0); ABG HCO3 29.3 MEQ/L (22.0-26.0); ABG O2 SATURATION 92.6 % (95.0-99.0); ABG PARTIAL PRESSURE CO2 46.3 mmHg (35.0-45.0); ABG PARTIAL PRESSURE O2 70.3 mmHg (75.0-100.0); ABG STANDARD HCO3 28.1 MEQ/L (22.0-26.0); ABG TOTAL CO2 30.7 MEQ/L (23.0-31.0); ABG pH (ARTERIAL) 7.419 UNITS (7.350-7.450)
[2017-04-29 15:07] LABS: BEDSIDE GLUCOSE 359 MG/DL (80-115)
[2017-04-29 15:38] LABS: CPK CREATINE PHOSPHOKINASE 19 U/L (39-308); TROPONIN I 0.03 NG/ML (< 0.10)
[2017-04-29 15:39] LABS: CK-MB VALUE MASS 1.8 NG/ML (<3.6); MB/CK RELATIVE INDEX 9.47 (< OR =4)
[2017-04-29] MEDS ORDERED: ISOVUE-370 76% 100ML VIAL (Q9967) As Ordered (15:56)
[2017-04-29 15:57] LABS: HEMATOCRIT 33.9 % (42.0-52.0); HEMOGLOBIN 10.7 g/dl (14.0-18.0); MEAN CORPUSCULAR HEMOGLOBIN 33.5 pg (27.0-33.0); MEAN CORPUSCULAR HGB CONC 31.6 g/dl (32.0-36.5); MEAN CORPUSCULAR VOLUME 106.3 fl (80.0-96.0); PLATELET COUNT, AUTOMATED 141 10^3/uL (150-450); RED BLOOD COUNT 3.19 10^6/uL (4.30-6.10); RED CELL DISTRIBUTION WIDTH 17.2 % (11.5-14.5); WHITE BLOOD COUNT 8.6 10^3/uL (4.0-10.0)
[2017-04-29 16:13] LABS: ALBUMIN 2.9 GM/DL (3.2-5.2); ALBUMIN/GLOBULIN RATIO 0.97 (1.00-1.93); ALKALINE PHOSPHATASE 115 U/L (45-117); ALT/SGPT 90 U/L (12-78); ANION GAP 7 MEQ/L (8-16); AST/SGOT 31 U/L (7-37); BILIRUBIN,TOTAL 0.4 MG/DL (0.2-1.0); BLOOD UREA NITROGEN 42 MG/DL (7-18); CALCIUM LEVEL 8.7 MG/DL (8.8-10.2); CARBON DIOXIDE LEVEL 33 MEQ/L (21-32); CHLORIDE LEVEL 100 MEQ/L (98-107); CREATININE FOR GFR 1.36 MG/DL (0.70-1.30); GLOMERULAR FILTRATION RATE 56.2 (>49); GLUCOSE, FASTING 391 MG/DL (70-100); SODIUM LEVEL 140 MEQ/L (136-145); TOTAL PROTEIN 5.9 GM/DL (6.4-8.2)
[2017-04-29 16:20] LABS: POTASSIUM SERUM 4.9 MEQ/L (3.5-5.1)
[2017-04-29 18:30] LABS: BEDSIDE GLUCOSE 343 MG/DL (80-115)
[2017-04-29 21:07] LABS: ABG BASE EXCESS 6.5 (-2.0-2.0); ABG HCO3 31.6 MEQ/L (22.0-26.0); ABG O2 SATURATION 94.4 % (95.0-99.0); ABG PARTIAL PRESSURE CO2 47.6 mmHg (35.0-45.0); ABG PARTIAL PRESSURE O2 74.7 mmHg (75.0-100.0); ABG STANDARD HCO3 30.3 MEQ/L (22.0-26.0); ABG TOTAL CO2 33.1 MEQ/L (23.0-31.0)
[2017-04-29] MEDS: SERTRALINE HCL 25 MG TABLET PO (21:24)
[2017-04-29 21:48] LABS: BEDSIDE GLUCOSE 240 MG/DL (80-115)
[2017-04-29 21:51] LABS: HEMATOCRIT 32.9 % (42.0-52.0); HEMOGLOBIN 10.3 g/dl (14.0-18.0); MEAN CORPUSCULAR HEMOGLOBIN 33.4 pg (27.0-33.0); MEAN CORPUSCULAR HGB CONC 31.3 g/dl (32.0-36.5); MEAN CORPUSCULAR VOLUME 106.8 fl (80.0-96.0); PLATELET COUNT, AUTOMATED 126 10^3/uL (150-450); RED BLOOD COUNT 3.08 10^6/uL (4.30-6.10); RED CELL DISTRIBUTION WIDTH 17.1 % (11.5-14.5); WHITE BLOOD COUNT 8.8 10^3/uL (4.0-10.0)
[2017-04-29 21:53] LABS: POS COUNT POS FLAG; POSITIVE MORPH POS FLAG
[2017-04-29 21:54] LABS: ADD MANUAL DIFFER YES; DIFF SLIDE NUMBER 354
[2017-04-29 22:21] LABS: NT-PRO BNP 365 PG/ML (<125)
[2017-04-29 22:24] LABS: CK-MB VALUE MASS 1.4 NG/ML (<3.6); CPK CREATINE PHOSPHOKINASE 14 U/L (39-308); TROPONIN I 0.02 NG/ML (< 0.10)
[2017-04-29] MEDS: MORPHINE 4 MG/ML 1ML VIAL (J2270) IV (22:27)
[2017-04-29 22:33] LABS: ATYPICAL LYMPH 4 % (0-5); BANDS 1 % (< 11); LYMPHOCYTES 11 % (16-52); MONOCYTES 4 % (0-8); MYELOCYTES 1 % (0-0); NEUTROPHILS 79 % (35-75)
[2017-04-29 22:34] LABS: ANISOCYTOSIS 1+
[2017-04-29 22:35] LABS: TOXIC GRANULATION 1+
[2017-04-29 22:40] LABS: PLATELET CLUMPS SMALL AMT; PLATELET ESTIMATE DECREASED (NORMAL)
[2017-04-30] MEDS: FUROSEMIDE 40 MG/4 ML VIAL (J1940) IV (01:45)
[2017-04-30] MEDS: MORPHINE 4 MG/ML 1ML VIAL (J2270) IV ×3 (03:50→16:36)
[2017-04-30 04:36] LABS: HEMATOCRIT 32.7 % (42.0-52.0); HEMOGLOBIN 10.2 g/dl (14.0-18.0); MEAN CORPUSCULAR HEMOGLOBIN 33.6 pg (27.0-33.0); MEAN CORPUSCULAR HGB CONC 31.2 g/dl (32.0-36.5); MEAN CORPUSCULAR VOLUME 107.6 fl (80.0-96.0); PLATELET COUNT, AUTOMATED 136 10^3/uL (150-450); RED BLOOD COUNT 3.04 10^6/uL (4.30-6.10); RED CELL DISTRIBUTION WIDTH 16.9 % (11.5-14.5); WHITE BLOOD COUNT 7.7 10^3/uL (4.0-10.0)
[2017-04-30 04:55] LABS: ANION GAP 7 MEQ/L (8-16); BLOOD UREA NITROGEN 38 MG/DL (7-18); CALCIUM LEVEL 8.5 MG/DL (8.8-10.2); CARBON DIOXIDE LEVEL 34 MEQ/L (21-32); CHLORIDE LEVEL 100 MEQ/L (98-107); CREATININE FOR GFR 1.29 MG/DL (0.70-1.30); GLOMERULAR FILTRATION RATE 59.7 (>49); GLUCOSE, FASTING 248 MG/DL (70-100); POTASSIUM SERUM 3.9 MEQ/L (3.5-5.1); SODIUM LEVEL 141 MEQ/L (136-145)
[2017-04-30] MEDS: CLINDAMYCIN 150 MG CAP PO (05:56)
[2017-04-30 06:09] LABS: BEDSIDE GLUCOSE 204 MG/DL (80-115)
[2017-04-30] MEDS: IPRATROPIUM 0.5MG/ALBUTEROL 2.5MG INH SOL UD 3ML (DUONEB)(J7620) NEB ×5 (08:00→23:12)
[2017-04-30] MEDS: MULTIVITAMINS/MINERALS THERAP 1 TAB PO (08:18)
[2017-04-30] MEDS: MAGNESIUM OXIDE 400 MG TAB (MAG-OX) PO (08:18)
[2017-04-30] MEDS: DOCUSATE SODIUM 100 MG CAP PO ×2 (08:18→20:55)
[2017-04-30] MEDS: APIXABAN 5 MG TAB (ELIQUIS) PO ×2 (08:18→20:57)
[2017-04-30] MEDS: FERROUS SULFATE 325MG TAB PO (08:19)
[2017-04-30] MEDS: FIBER-CON 625 MG TAB PO (08:19)
[2017-04-30] MEDS: CYANOCOBALAMIN 500 MCG TAB PO (08:19)
[2017-04-30] MEDS: ZONISAMIDE 50 MG CAP (ZONEGRAN) PO ×2 (08:19→20:56)
[2017-04-30] MEDS: DIGOXIN 0.125 MG TAB PO (08:19)
[2017-04-30] MEDS: OMEPRAZOLE 20 MG CAP PO (08:19)
[2017-04-30] MEDS: rOPINIRole 1MG TAB PO (08:20)
[2017-04-30] MEDS: predniSONE 10 MG TAB PO (08:20)
[2017-04-30] MEDS: ASPIRIN 81 MG ENTERIC TAB PO (08:20)
[2017-04-30] MEDS: GABAPENTIN 300 MG CAP PO ×3 (08:20→20:56)
[2017-04-30] MEDS: ALLOPURINOL 300 MG TAB PO (08:20)
[2017-04-30] MEDS: LACTOBACILLUS ACIDOPHILUS CAP (BACID) PO ×3 (08:20→20:56)
[2017-04-30] MEDS: METOPROLOL TARTRATE 100 MG TAB PO ×2 (08:20→20:56)
[2017-04-30] MEDS: PRAVASTATIN 20 MG TAB PO (08:20)
[2017-04-30] MEDS: POTASSIUM CHLORIDE 10 MEQ SR TABLET PO (08:21)
[2017-04-30] MEDS: LEVEMIR (INSULIN DETEMIR) 1 UNITS/0.01ML SC ×2 (08:21→20:57)
[2017-04-30] MEDS: HumaLOG INSULIN (NovoLOG) PER UNIT SC ×4 (08:22→22:05)
[2017-04-30] MEDS: guaiFENesin ER 600 MG TAB PO ×2 (08:24→20:56)
[2017-04-30 08:32] LABS: MAGNESIUM LEVEL 1.7 MG/DL (1.8-2.4)
[2017-04-30] MEDS: SYMBICORT 160/4.5MCG INHALER 6GM INH ×2 (09:28→23:12)
[2017-04-30] MEDS: TIOTROPIUM INHALER/CAPSULE (SPIRIVA) INH (09:28)
[2017-04-30 12:10] LABS: BEDSIDE GLUCOSE 198 MG/DL (80-115)
[2017-04-30] MEDS: methylPREDNISolone INJ 125 MG/2 ML VIAL (J2930) IV ×2 (13:56→20:55)
[2017-04-30] MEDS: PERCOCET 5MG/325MG TAB PO ×2 (13:57→20:56)
[2017-04-30] MEDS: SODIUM CHLORIDE 0.9% INJ 10 ML SYR IV ×2 (13:58→21:04)
[2017-04-30] MEDS: MAG SULF 1GM/100ML (MAG RUN) 1 GM in APPROPRIATE DILUENT 1 EA IV ×2 (13:58→16:34)
[2017-04-30] MEDS: DOXYCYCLINE HYCLATE 100 MG TAB PO ×2 (14:25→20:57)
[2017-04-30] MEDS: TORSEMIDE 5MG TABLET PO (14:25)
[2017-04-30] MEDS: LevoFLOXacin IV 750 MG in APPROPRIATE DILUENT 1 EA IV (15:58)
[2017-04-30 17:06] LABS: BEDSIDE GLUCOSE 351 MG/DL (80-115)
[2017-04-30] MEDS: SERTRALINE HCL 25 MG TABLET PO (20:56)
[2017-04-30 22:27] LABS: BEDSIDE GLUCOSE 332 MG/DL (80-115)
[2017-05-01] MEDS: NYSTATIN 500,000 U/5 ML SUSP UDC SS (03:36)
[2017-05-01] MEDS: CALCIUM CARBONATE 500 MG CHEW U/D PO (03:36)
[2017-05-01] MEDS: SODIUM CHLORIDE 0.9% INJ 10 ML SYR IV ×2 (04:59→13:31)
[2017-05-01] MEDS: methylPREDNISolone INJ 125 MG/2 ML VIAL (J2930) IV (04:59)
[2017-05-01 05:16] LABS: HEMATOCRIT 32.2 % (42.0-52.0); HEMOGLOBIN 10.2 g/dl (14.0-18.0); MEAN CORPUSCULAR HEMOGLOBIN 33.9 pg (27.0-33.0); MEAN CORPUSCULAR HGB CONC 31.7 g/dl (32.0-36.5); PLATELET COUNT, AUTOMATED 129 10^3/uL (150-450); RED BLOOD COUNT 3.01 10^6/uL (4.30-6.10); RED CELL DISTRIBUTION WIDTH 16.7 % (11.5-14.5); WHITE BLOOD COUNT 12.6 10^3/uL (4.0-10.0)
[2017-05-01 05:30] LABS: MAGNESIUM LEVEL 1.9 MG/DL (1.8-2.4)
[2017-05-01 05:34] LABS: ANION GAP 7 MEQ/L (8-16); BLOOD UREA NITROGEN 40 MG/DL (7-18); CALCIUM LEVEL 8.5 MG/DL (8.8-10.2); CARBON DIOXIDE LEVEL 34 MEQ/L (21-32); CHLORIDE LEVEL 99 MEQ/L (98-107); CREATININE FOR GFR 1.32 MG/DL (0.70-1.30); GLOMERULAR FILTRATION RATE 58.1 (>49); GLUCOSE, FASTING 291 MG/DL (70-100); POTASSIUM SERUM 4.6 MEQ/L (3.5-5.1); SODIUM LEVEL 140 MEQ/L (136-145)
[2017-05-01] MEDS: TIOTROPIUM INHALER/CAPSULE (SPIRIVA) INH (07:59)
[2017-05-01] MEDS: IPRATROPIUM 0.5MG/ALBUTEROL 2.5MG INH SOL UD 3ML (DUONEB)(J7620) NEB ×2 (08:00→15:43)
[2017-05-01] MEDS: SYMBICORT 160/4.5MCG INHALER 6GM INH ×2 (08:00→19:43)
[2017-05-01] MEDS: TORSEMIDE 5MG TABLET PO (09:25)
[2017-05-01] MEDS: GABAPENTIN 300 MG CAP PO ×3 (09:25→20:18)
[2017-05-01] MEDS: DOCUSATE SODIUM 100 MG CAP PO ×2 (09:25→20:18)
[2017-05-01] MEDS: HumaLOG INSULIN (NovoLOG) PER UNIT SC ×4 (09:25→20:29)
[2017-05-01] MEDS: ZONISAMIDE 50 MG CAP (ZONEGRAN) PO ×2 (09:25→20:17)
[2017-05-01] MEDS: LEVEMIR (INSULIN DETEMIR) 1 UNITS/0.01ML SC ×2 (09:25→20:27)
[2017-05-01] MEDS: LACTOBACILLUS ACIDOPHILUS CAP (BACID) PO ×3 (09:25→20:18)
[2017-05-01] MEDS: ALLOPURINOL 300 MG TAB PO (09:26)
[2017-05-01] MEDS: DOXYCYCLINE HYCLATE 100 MG TAB PO ×2 (09:26→20:17)
[2017-05-01] MEDS: MAGNESIUM OXIDE 400 MG TAB (MAG-OX) PO (09:26)
[2017-05-01] MEDS: APIXABAN 5 MG TAB (ELIQUIS) PO ×2 (09:26→20:18)
[2017-05-01] MEDS: FIBER-CON 625 MG TAB PO (09:26)
[2017-05-01] MEDS: rOPINIRole 1MG TAB PO ×2 (09:26→20:18)
[2017-05-01] MEDS: CYANOCOBALAMIN 500 MCG TAB PO (09:26)
[2017-05-01] MEDS: ASPIRIN 81 MG ENTERIC TAB PO (09:26)
[2017-05-01] MEDS: FERROUS SULFATE 325MG TAB PO (09:26)
[2017-05-01] MEDS: DIGOXIN 0.125 MG TAB PO (09:26)
[2017-05-01] MEDS: PRAVASTATIN 20 MG TAB PO (09:26)
[2017-05-01] MEDS: POTASSIUM CHLORIDE 10 MEQ SR TABLET PO (09:28)
[2017-05-01] MEDS: guaiFENesin ER 600 MG TAB PO ×2 (09:28→20:18)
[2017-05-01] MEDS: MULTIVITAMINS/MINERALS THERAP 1 TAB PO (09:28)
[2017-05-01] MEDS: OMEPRAZOLE 20 MG CAP PO (09:28)
[2017-05-01] MEDS: METOPROLOL TARTRATE 100 MG TAB PO ×2 (09:29→20:17)
[2017-05-01 12:14] LABS: BEDSIDE GLUCOSE 293 MG/DL (80-115)
[2017-05-01] MEDS: LevoFLOXacin IV 750 MG in APPROPRIATE DILUENT 1 EA IV (13:29)
[2017-05-01] MEDS: methylPREDNISolone INJ 40 MG/1 ML VIAL (J2920) IV ×2 (13:29→22:15)
[2017-05-01 17:23] LABS: BEDSIDE GLUCOSE 321 MG/DL (80-115)
[2017-05-01] MEDS: SERTRALINE HCL 25 MG TABLET PO (20:18)
[2017-05-01 20:39] LABS: BEDSIDE GLUCOSE 333 MG/DL (80-115)
[2017-05-01] MEDS ORDERED: SLF 3 ML SYR IV (21:00)
[2017-05-01] MEDS: SLF 3 ML SYR IV (22:16)
[2017-05-02] MEDS: IPRATROPIUM 0.5MG/ALBUTEROL 2.5MG INH SOL UD 3ML (DUONEB)(J7620) NEB ×4 (00:20→23:56)
[2017-05-02] MEDS: methylPREDNISolone INJ 40 MG/1 ML VIAL (J2920) IV ×3 (05:51→20:40)
[2017-05-02] MEDS: SLF 3 ML SYR IV ×3 (05:51→20:42)
[2017-05-02 06:27] LABS: HEMATOCRIT 33.4 % (42.0-52.0); HEMOGLOBIN 10.5 g/dl (14.0-18.0); MEAN CORPUSCULAR HGB CONC 31.4 g/dl (32.0-36.5); PLATELET COUNT, AUTOMATED 154 10^3/uL (150-450); RED BLOOD COUNT 3.18 10^6/uL (4.30-6.10); RED CELL DISTRIBUTION WIDTH 16.7 % (11.5-14.5); WHITE BLOOD COUNT 10.7 10^3/uL (4.0-10.0)
[2017-05-02 06:43] LABS: ANION GAP 8 MEQ/L (8-16); BLOOD UREA NITROGEN 42 MG/DL (7-18); CALCIUM LEVEL 9.1 MG/DL (8.8-10.2); CARBON DIOXIDE LEVEL 30 MEQ/L (21-32); CHLORIDE LEVEL 100 MEQ/L (98-107); CREATININE FOR GFR 1.21 MG/DL (0.70-1.30); GLOMERULAR FILTRATION RATE > 60.0 (>49); GLUCOSE, FASTING 376 MG/DL (70-100); POTASSIUM SERUM 4.3 MEQ/L (3.5-5.1); SODIUM LEVEL 138 MEQ/L (136-145)
[2017-05-02] MEDS: TIOTROPIUM INHALER/CAPSULE (SPIRIVA) INH (07:29)
[2017-05-02] MEDS: SYMBICORT 160/4.5MCG INHALER 6GM INH ×2 (07:29→18:08)
[2017-05-02] MEDS: MAGNESIUM OXIDE 400 MG TAB (MAG-OX) PO (08:18)
[2017-05-02] MEDS: guaiFENesin ER 600 MG TAB PO ×2 (08:18→20:41)
[2017-05-02] MEDS: MULTIVITAMINS/MINERALS THERAP 1 TAB PO (08:18)
[2017-05-02] MEDS: ZONISAMIDE 50 MG CAP (ZONEGRAN) PO ×2 (08:18→20:40)
[2017-05-02] MEDS: APIXABAN 5 MG TAB (ELIQUIS) PO ×2 (08:18→20:41)
[2017-05-02] MEDS: OMEPRAZOLE 20 MG CAP PO (08:18)
[2017-05-02] MEDS: CYANOCOBALAMIN 500 MCG TAB PO (08:18)
[2017-05-02] MEDS: ALLOPURINOL 300 MG TAB PO (08:18)
[2017-05-02] MEDS: GABAPENTIN 300 MG CAP PO ×3 (08:18→20:40)
[2017-05-02] MEDS: LACTOBACILLUS ACIDOPHILUS CAP (BACID) PO ×3 (08:18→20:40)
[2017-05-02] MEDS: POTASSIUM CHLORIDE 10 MEQ SR TABLET PO (08:19)
[2017-05-02] MEDS: DOCUSATE SODIUM 100 MG CAP PO ×2 (08:19→20:41)
[2017-05-02] MEDS: LEVEMIR (INSULIN DETEMIR) 1 UNITS/0.01ML SC ×2 (08:20→20:42)
[2017-05-02] MEDS: TORSEMIDE 5MG TABLET PO (08:20)
[2017-05-02] MEDS: HumaLOG INSULIN (NovoLOG) PER UNIT SC ×4 (08:20→20:42)
[2017-05-02] MEDS: ASPIRIN 81 MG ENTERIC TAB PO (08:21)
[2017-05-02] MEDS: METOPROLOL TARTRATE 100 MG TAB PO ×2 (08:21→20:41)
[2017-05-02] MEDS: PRAVASTATIN 20 MG TAB PO (08:21)
[2017-05-02] MEDS: rOPINIRole 1MG TAB PO ×2 (08:21→20:40)
[2017-05-02] MEDS: FIBER-CON 625 MG TAB PO (08:21)
[2017-05-02] MEDS: DOXYCYCLINE HYCLATE 100 MG TAB PO ×2 (08:21→20:51)
[2017-05-02] MEDS: FERROUS SULFATE 325MG TAB PO (08:22)
[2017-05-02] MEDS: DIGOXIN 0.125 MG TAB PO (08:22)
[2017-05-02 12:12] LABS: BEDSIDE GLUCOSE 357 MG/DL (80-115)
[2017-05-02] MEDS: LevoFLOXacin IV 750 MG in APPROPRIATE DILUENT 1 EA IV (14:34)
[2017-05-02 17:36] LABS: BEDSIDE GLUCOSE 307 MG/DL (80-115)
[2017-05-02 20:16] LABS: BEDSIDE GLUCOSE 388 MG/DL (80-115)
[2017-05-02] MEDS: SERTRALINE HCL 25 MG TABLET PO (20:40)
[2017-05-03 04:58] LABS: HEMOGLOBIN 10.6 g/dl (14.0-18.0); MEAN CORPUSCULAR HEMOGLOBIN 33.7 pg (27.0-33.0); MEAN CORPUSCULAR HGB CONC 31.2 g/dl (32.0-36.5); MEAN CORPUSCULAR VOLUME 107.9 fl (80.0-96.0); PLATELET COUNT, AUTOMATED 144 10^3/uL (150-450); RED BLOOD COUNT 3.15 10^6/uL (4.30-6.10); RED CELL DISTRIBUTION WIDTH 16.7 % (11.5-14.5); WHITE BLOOD COUNT 8.6 10^3/uL (4.0-10.0)
[2017-05-03 05:15] LABS: ANION GAP 7 MEQ/L (8-16); BLOOD UREA NITROGEN 40 MG/DL (7-18); CALCIUM LEVEL 9.1 MG/DL (8.8-10.2); CARBON DIOXIDE LEVEL 30 MEQ/L (21-32); CHLORIDE LEVEL 103 MEQ/L (98-107); GLOMERULAR FILTRATION RATE > 60.0 (>49); GLUCOSE, FASTING 323 MG/DL (70-100); MAGNESIUM LEVEL 1.9 MG/DL (1.8-2.4); POTASSIUM SERUM 4.4 MEQ/L (3.5-5.1); SODIUM LEVEL 140 MEQ/L (136-145)
[2017-05-03] MEDS: SLF 3 ML SYR IV ×3 (05:47→21:22)
[2017-05-03] MEDS: methylPREDNISolone INJ 40 MG/1 ML VIAL (J2920) IV ×3 (05:47→21:22)
[2017-05-03 07:54] LABS: BEDSIDE GLUCOSE 277 MG/DL (80-115)
[2017-05-03] MEDS: IPRATROPIUM 0.5MG/ALBUTEROL 2.5MG INH SOL UD 3ML (DUONEB)(J7620) NEB ×3 (08:00→23:21)
[2017-05-03] MEDS: TIOTROPIUM INHALER/CAPSULE (SPIRIVA) INH (08:28)
[2017-05-03] MEDS: SYMBICORT 160/4.5MCG INHALER 6GM INH ×2 (08:28→18:26)
[2017-05-03] MEDS: PRAVASTATIN 20 MG TAB PO (09:51)
[2017-05-03] MEDS: FERROUS SULFATE 325MG TAB PO (09:51)
[2017-05-03] MEDS: MULTIVITAMINS/MINERALS THERAP 1 TAB PO (09:51)
[2017-05-03] MEDS: GABAPENTIN 300 MG CAP PO ×3 (09:51→21:23)
[2017-05-03] MEDS: DOCUSATE SODIUM 100 MG CAP PO ×2 (09:51→21:00)
[2017-05-03] MEDS: MAGNESIUM OXIDE 400 MG TAB (MAG-OX) PO (09:51)
[2017-05-03] MEDS: ZONISAMIDE 50 MG CAP (ZONEGRAN) PO ×2 (09:51→21:22)
[2017-05-03] MEDS: guaiFENesin ER 600 MG TAB PO ×2 (09:51→21:23)
[2017-05-03] MEDS: rOPINIRole 1MG TAB PO ×2 (09:52→21:23)
[2017-05-03] MEDS: FIBER-CON 625 MG TAB PO (09:52)
[2017-05-03] MEDS: LEVEMIR (INSULIN DETEMIR) 1 UNITS/0.01ML SC ×2 (09:52→21:00)
[2017-05-03] MEDS: LACTOBACILLUS ACIDOPHILUS CAP (BACID) PO ×3 (09:53→21:23)
[2017-05-03] MEDS: HumaLOG INSULIN (NovoLOG) PER UNIT SC ×4 (09:53→21:22)
[2017-05-03] MEDS: POTASSIUM CHLORIDE 10 MEQ SR TABLET PO (09:54)
[2017-05-03] MEDS: DOXYCYCLINE HYCLATE 100 MG TAB PO (09:54)
[2017-05-03] MEDS: OMEPRAZOLE 20 MG CAP PO (09:54)
[2017-05-03] MEDS: CYANOCOBALAMIN 500 MCG TAB PO (09:54)
[2017-05-03] MEDS: TORSEMIDE 5MG TABLET PO (09:54)
[2017-05-03] MEDS: ALLOPURINOL 300 MG TAB PO (09:54)
[2017-05-03] MEDS: METOPROLOL TARTRATE 100 MG TAB PO ×2 (09:58→21:23)
[2017-05-03] MEDS: DIGOXIN 0.125 MG TAB PO (09:58)
[2017-05-03] MEDS: ASPIRIN 81 MG ENTERIC TAB PO (11:03)
[2017-05-03 12:17] LABS: BEDSIDE GLUCOSE 327 MG/DL (80-115)
[2017-05-03 12:29] LABS: IMMUNOGLOBULIN G 464 MG/DL (681-1648); IMMUNOGLOBULIN M 99.2 MG/DL (40-230)
[2017-05-03 17:14] LABS: BEDSIDE GLUCOSE 339 MG/DL (80-115)
[2017-05-03 20:37] LABS: BEDSIDE GLUCOSE 407 MG/DL (80-115)
[2017-05-03] MEDS: SERTRALINE HCL 25 MG TABLET PO (21:23)
[2017-05-04 05:18] LABS: HEMATOCRIT 33.4 % (42.0-52.0); HEMOGLOBIN 10.5 g/dl (14.0-18.0); MEAN CORPUSCULAR HEMOGLOBIN 33.5 pg (27.0-33.0); MEAN CORPUSCULAR HGB CONC 31.4 g/dl (32.0-36.5); MEAN CORPUSCULAR VOLUME 106.7 fl (80.0-96.0); PLATELET COUNT, AUTOMATED 127 10^3/uL (150-450); RED BLOOD COUNT 3.13 10^6/uL (4.30-6.10); RED CELL DISTRIBUTION WIDTH 16.8 % (11.5-14.5); WHITE BLOOD COUNT 5.1 10^3/uL (4.0-10.0)
[2017-05-04 05:26] LABS: ADD MANUAL DIFFER YES; DIFF SLIDE NUMBER 75; POS COUNT POS FLAG; POSITIVE MORPH POS FLAG
[2017-05-04 05:27] LABS: ANION GAP 8 MEQ/L (8-16); BLOOD UREA NITROGEN 40 MG/DL (7-18); CALCIUM LEVEL 8.9 MG/DL (8.8-10.2); CARBON DIOXIDE LEVEL 29 MEQ/L (21-32); CHLORIDE LEVEL 101 MEQ/L (98-107); CREATININE FOR GFR 1.13 MG/DL (0.70-1.30); GLOMERULAR FILTRATION RATE > 60.0 (>49); GLUCOSE, FASTING 220 MG/DL (70-100); MAGNESIUM LEVEL 1.8 MG/DL (1.8-2.4); POTASSIUM SERUM 4.2 MEQ/L (3.5-5.1); SODIUM LEVEL 138 MEQ/L (136-145)
[2017-05-04] MEDS: methylPREDNISolone INJ 40 MG/1 ML VIAL (J2920) IV ×3 (05:55→21:42)
[2017-05-04] MEDS: SLF 3 ML SYR IV ×3 (05:55→21:42)
[2017-05-04 06:16] LABS: ATYPICAL LYMPH 4 % (0-5); BANDS 4 % (< 11); LYMPHOCYTES 9 % (16-52); METAMYELOCYTES 1 % (0-0); MONOCYTES 5 % (0-8); MYELOCYTES 3 % (0-0)
[2017-05-04 06:18] LABS: NEUTROPHILS 74 % (35-75)
[2017-05-04 06:20] LABS: ANISOCYTOSIS 1+; PLATELET ESTIMATE DECREASED (NORMAL)
[2017-05-04 06:21] LABS: POLYCHROMASIA 1+
[2017-05-04] MEDS: HumaLOG INSULIN (NovoLOG) PER UNIT SC ×4 (07:30→21:43)
[2017-05-04] MEDS: IPRATROPIUM 0.5MG/ALBUTEROL 2.5MG INH SOL UD 3ML (DUONEB)(J7620) NEB ×3 (07:55→23:55)
[2017-05-04] MEDS: TIOTROPIUM INHALER/CAPSULE (SPIRIVA) INH (07:55)
[2017-05-04] MEDS: SYMBICORT 160/4.5MCG INHALER 6GM INH ×2 (07:55→19:51)
[2017-05-04] MEDS: LACTOBACILLUS ACIDOPHILUS CAP (BACID) PO ×3 (09:29→21:41)
[2017-05-04] MEDS: ZONISAMIDE 50 MG CAP (ZONEGRAN) PO ×2 (09:29→21:41)
[2017-05-04] MEDS: ALLOPURINOL 300 MG TAB PO (09:29)
[2017-05-04] MEDS: LEVEMIR (INSULIN DETEMIR) 1 UNITS/0.01ML SC ×2 (09:29→21:00)
[2017-05-04] MEDS: FERROUS SULFATE 325MG TAB PO (09:30)
[2017-05-04] MEDS: TORSEMIDE 5MG TABLET PO (09:30)
[2017-05-04] MEDS: FIBER-CON 625 MG TAB PO (09:30)
[2017-05-04] MEDS: METOPROLOL TARTRATE 100 MG TAB PO ×2 (09:31→21:41)
[2017-05-04] MEDS: rOPINIRole 1MG TAB PO ×2 (09:31→21:41)
[2017-05-04] MEDS: CYANOCOBALAMIN 500 MCG TAB PO (09:31)
[2017-05-04] MEDS: DIGOXIN 0.125 MG TAB PO (09:31)
[2017-05-04] MEDS: DOCUSATE SODIUM 100 MG CAP PO ×2 (09:32→21:41)
[2017-05-04] MEDS: guaiFENesin ER 600 MG TAB PO ×2 (09:32→21:41)
[2017-05-04] MEDS: GABAPENTIN 300 MG CAP PO ×3 (09:32→21:41)
[2017-05-04] MEDS: ASPIRIN 81 MG ENTERIC TAB PO (09:33)
[2017-05-04] MEDS: PRAVASTATIN 20 MG TAB PO (09:33)
[2017-05-04] MEDS: OMEPRAZOLE 20 MG CAP PO (09:33)
[2017-05-04] MEDS: POTASSIUM CHLORIDE 10 MEQ SR TABLET PO (09:33)
[2017-05-04] MEDS: MAGNESIUM OXIDE 400 MG TAB (MAG-OX) PO (09:33)
[2017-05-04] MEDS: MULTIVITAMINS/MINERALS THERAP 1 TAB PO (09:33)
[2017-05-04 12:09] LABS: BEDSIDE GLUCOSE 238 MG/DL (80-115)
[2017-05-04] MEDS: THROMBIN SOLN 5,000 UNITS VIAL As Ordered (12:28)
[2017-05-04] MEDS: EPINEPHrine 1MG/10ML SYRINGE 1.5IN As Ordered (12:28)
[2017-05-04] MEDS ORDERED: LIDOCAINE 4% INJ 5 ML AMP As Ordered (12:45)
[2017-05-04] MEDS: LIDOCAINE VISCOUS 2% SOLN 15ML UDC As Ordered (13:05)
[2017-05-04] MEDS: LIDOCAINE 4% TOPICAL SOLN 50 ML BTL As Ordered (13:05)
[2017-05-04] MEDS: LIDOCAINE 1% SDV INJ 30 ML VIAL As Ordered ×2 (13:05)
[2017-05-04] MEDS: CETACAINE SPRAY 5GM As Ordered (13:05)
[2017-05-04] MEDS ORDERED: fentaNYL 100 MCG/2 ML INJECTION (J3010) As Ordered (13:07)
[2017-05-04] MEDS ORDERED: MIDAZOLAM INJ 2 MG/2 ML VIAL (J2250) As Ordered (13:07)
[2017-05-04 13:38] LABS: BEDSIDE GLUCOSE 182 MG/DL (80-115)
[2017-05-04] MEDS ORDERED: ALBUTEROL SULFATE 2.5 MG/0.5 ML INH NEB SOLN As Ordered (13:44)
[2017-05-04] MEDS: LR 1,000 ML IV (13:45)
[2017-05-04] MEDS ORDERED: ONDANSETRON 4MG/2ML VIAL (J2405) IV (13:45)
[2017-05-04] MEDS: ALBUTEROL SULFATE 2.5 MG/0.5 ML INH NEB SOLN INH (14:00)
[2017-05-04 14:48] LABS: COLOR COLORLESS (COLORLESS); SOURCE RIGHT MIDDLE LOBE
[2017-05-04 14:49] LABS: APPEARANCE HAZY (CLEAR)
[2017-05-04 15:30] LABS: WBC BAL COUNTED 906
[2017-05-04 15:31] LABS: BAL WBC 1006.566 CELLS/uL (0-10); DILUTION FACTOR 1
[2017-05-04 15:32] LABS: BAL DIFF IF INDICATED? YES (NO)
[2017-05-04 17:34] LABS: BEDSIDE GLUCOSE 129 MG/DL (80-115)
[2017-05-04 17:38] LABS: ABG BASE EXCESS 8.1 (-2.0-2.0); ABG HCO3 33.8 MEQ/L (22.0-26.0); ABG O2 SATURATION 87.8 % (95.0-99.0); ABG PARTIAL PRESSURE CO2 52.1 mmHg (35.0-45.0); ABG STANDARD HCO3 31.6 MEQ/L (22.0-26.0); ABG TOTAL CO2 35.4 MEQ/L (23.0-31.0)
[2017-05-04] MEDS: LINEZOLID 600 MG in APPROPRIATE DILUENT 1 EA IV (17:44)
[2017-05-04 18:52] LABS: CC BAL DIFF EXAM CYTOCENTRIFUGE; MONOCYTES/MACROPHAGES, BAL 4 %
[2017-05-04 20:45] LABS: BEDSIDE GLUCOSE 403 MG/DL (80-115)
[2017-05-05] MEDS: NYSTATIN 500,000 U/5 ML SUSP UDC SS (04:32)
[2017-05-05] MEDS: LINEZOLID 600 MG in APPROPRIATE DILUENT 1 EA IV ×2 (05:19→16:29)
[2017-05-05] MEDS: SLF 3 ML SYR IV ×3 (05:19→22:37)
[2017-05-05] MEDS: methylPREDNISolone INJ 40 MG/1 ML VIAL (J2920) IV ×3 (05:19→22:37)
[2017-05-05 05:34] LABS: ADD MANUAL DIFFER YES; DIFF SLIDE NUMBER 42; HEMATOCRIT 32.4 % (42.0-52.0); HEMOGLOBIN 10.4 g/dl (14.0-18.0); MEAN CORPUSCULAR HEMOGLOBIN 33.2 pg (27.0-33.0); MEAN CORPUSCULAR HGB CONC 32.1 g/dl (32.0-36.5); MEAN CORPUSCULAR VOLUME 103.5 fl (80.0-96.0); PLATELET COUNT, AUTOMATED 135 10^3/uL (150-450); POS COUNT POS FLAG; POSITIVE MORPH POS FLAG; RED BLOOD COUNT 3.13 10^6/uL (4.30-6.10); RED CELL DISTRIBUTION WIDTH 16.7 % (11.5-14.5); WHITE BLOOD COUNT 6.1 10^3/uL (4.0-10.0)
[2017-05-05 05:55] LABS: ANION GAP 6 MEQ/L (8-16); BLOOD UREA NITROGEN 37 MG/DL (7-18); CALCIUM LEVEL 8.7 MG/DL (8.8-10.2); CARBON DIOXIDE LEVEL 32 MEQ/L (21-32); CHLORIDE LEVEL 99 MEQ/L (98-107); CREATININE FOR GFR 1.14 MG/DL (0.70-1.30); GLOMERULAR FILTRATION RATE > 60.0 (>49); GLUCOSE, FASTING 214 MG/DL (70-100); MAGNESIUM LEVEL 2.1 MG/DL (1.8-2.4); POTASSIUM SERUM 4.2 MEQ/L (3.5-5.1); SODIUM LEVEL 137 MEQ/L (136-145)
[2017-05-05 06:31] LABS: ATYPICAL LYMPH 3 % (0-5); BANDS 3 % (< 11); LYMPHOCYTES 9 % (16-52); MONOCYTES 2 % (0-8); MYELOCYTES 3 % (0-0); NEUTROPHILS 80 % (35-75)
[2017-05-05 06:32] LABS: ANISOCYTOSIS 1+; PLATELET ESTIMATE DECREASED (NORMAL)
[2017-05-05] MEDS: FERROUS SULFATE 325MG TAB PO (07:55)
[2017-05-05] MEDS: ASPIRIN 81 MG ENTERIC TAB PO (07:55)
[2017-05-05] MEDS: DOCUSATE SODIUM 100 MG CAP PO ×2 (07:55→22:36)
[2017-05-05] MEDS: TORSEMIDE 5MG TABLET PO (07:56)
[2017-05-05] MEDS: PRAVASTATIN 20 MG TAB PO (07:56)
[2017-05-05] MEDS: ZONISAMIDE 50 MG CAP (ZONEGRAN) PO ×2 (07:56→22:47)
[2017-05-05] MEDS: FIBER-CON 625 MG TAB PO (07:56)
[2017-05-05] MEDS: LACTOBACILLUS ACIDOPHILUS CAP (BACID) PO ×3 (07:56→22:37)
[2017-05-05] MEDS: GABAPENTIN 300 MG CAP PO ×3 (07:57→22:36)
[2017-05-05] MEDS: MULTIVITAMINS/MINERALS THERAP 1 TAB PO (07:57)
[2017-05-05] MEDS: ALLOPURINOL 300 MG TAB PO (07:57)
[2017-05-05] MEDS: guaiFENesin ER 600 MG TAB PO ×2 (07:57→22:36)
[2017-05-05] MEDS: MAGNESIUM OXIDE 400 MG TAB (MAG-OX) PO (07:57)
[2017-05-05] MEDS: OMEPRAZOLE 20 MG CAP PO (07:57)
[2017-05-05] MEDS: CYANOCOBALAMIN 500 MCG TAB PO (07:58)
[2017-05-05] MEDS: DIGOXIN 0.125 MG TAB PO (07:58)
[2017-05-05] MEDS: METOPROLOL TARTRATE 100 MG TAB PO ×2 (07:59→22:36)
[2017-05-05] MEDS: POTASSIUM CHLORIDE 10 MEQ SR TABLET PO (07:59)
[2017-05-05] MEDS: LEVEMIR (INSULIN DETEMIR) 1 UNITS/0.01ML SC ×2 (08:00→22:39)
[2017-05-05] MEDS: HumaLOG INSULIN (NovoLOG) PER UNIT SC ×4 (08:00→22:37)
[2017-05-05] MEDS: IPRATROPIUM 0.5MG/ALBUTEROL 2.5MG INH SOL UD 3ML (DUONEB)(J7620) NEB ×2 (08:00→15:36)
[2017-05-05] MEDS: rOPINIRole 1MG TAB PO ×2 (08:01→22:38)
[2017-05-05] MEDS: TIOTROPIUM INHALER/CAPSULE (SPIRIVA) INH (10:47)
[2017-05-05] MEDS: SYMBICORT 160/4.5MCG INHALER 6GM INH ×2 (10:47→19:35)
[2017-05-05 11:38] LABS: BEDSIDE GLUCOSE 327 MG/DL (80-115)
[2017-05-05] MEDS: CALCIUM CARBONATE 500 MG CHEW U/D PO (14:20)
[2017-05-05 17:06] LABS: BEDSIDE GLUCOSE 299 MG/DL (80-115)
[2017-05-06] MEDS: IPRATROPIUM 0.5MG/ALBUTEROL 2.5MG INH SOL UD 3ML (DUONEB)(J7620) NEB ×2 (01:25→08:00)
[2017-05-06] MEDS: methylPREDNISolone INJ 40 MG/1 ML VIAL (J2920) IV (05:52)
[2017-05-06] MEDS: SLF 3 ML SYR IV (05:53)
[2017-05-06 05:54] LABS: HEMATOCRIT 31.5 % (42.0-52.0); HEMOGLOBIN 10.2 g/dl (14.0-18.0); MEAN CORPUSCULAR HGB CONC 32.4 g/dl (32.0-36.5); PLATELET COUNT, AUTOMATED 113 10^3/uL (150-450); RED CELL DISTRIBUTION WIDTH 16.6 % (11.5-14.5); WHITE BLOOD COUNT 7.6 10^3/uL (4.0-10.0)
[2017-05-06 06:01] LABS: ADD MANUAL DIFFER YES; DIFF SLIDE NUMBER 27; POS COUNT POS FLAG; POSITIVE MORPH POS FLAG
[2017-05-06 06:14] LABS: ANION GAP 5 MEQ/L (8-16); BLOOD UREA NITROGEN 38 MG/DL (7-18); CALCIUM LEVEL 8.9 MG/DL (8.8-10.2); CARBON DIOXIDE LEVEL 32 MEQ/L (21-32); CHLORIDE LEVEL 100 MEQ/L (98-107); CREATININE FOR GFR 1.15 MG/DL (0.70-1.30); GLOMERULAR FILTRATION RATE > 60.0 (>49); GLUCOSE, FASTING 228 MG/DL (70-100); POTASSIUM SERUM 4.2 MEQ/L (3.5-5.1); SODIUM LEVEL 137 MEQ/L (136-145)
[2017-05-06 06:27] LABS: ANISOCYTOSIS 2+; ATYPICAL LYMPH 2 % (0-5); BANDS 3 % (< 11); LYMPHOCYTES 13 % (16-52); METAMYELOCYTES 4 % (0-0); MONOCYTES 5 % (0-8); MYELOCYTES 1 % (0-0); NEUTROPHILS 72 % (35-75); PLATELET ESTIMATE NORMAL (NORMAL)
[2017-05-06 06:28] LABS: POLYCHROMASIA 1+
[2017-05-06 06:55] LABS: BEDSIDE GLUCOSE 413 MG/DL (80-115)
[2017-05-06] MEDS: SYMBICORT 160/4.5MCG INHALER 6GM INH (08:07)
[2017-05-06] MEDS: TIOTROPIUM INHALER/CAPSULE (SPIRIVA) INH (08:08)
[2017-05-06] MEDS: HumaLOG INSULIN (NovoLOG) PER UNIT SC ×2 (09:52→12:49)
[2017-05-06] MEDS: LEVEMIR (INSULIN DETEMIR) 1 UNITS/0.01ML SC (09:52)
[2017-05-06] MEDS: GABAPENTIN 300 MG CAP PO (09:53)
[2017-05-06] MEDS: POTASSIUM CHLORIDE 10 MEQ SR TABLET PO (09:56)
[2017-05-06] MEDS: rOPINIRole 1MG TAB PO (09:56)
[2017-05-06] MEDS: LACTOBACILLUS ACIDOPHILUS CAP (BACID) PO (09:56)
[2017-05-06] MEDS: METOPROLOL TARTRATE 100 MG TAB PO (09:56)
[2017-05-06] MEDS: MAGNESIUM OXIDE 400 MG TAB (MAG-OX) PO (09:57)
[2017-05-06] MEDS: TORSEMIDE 5MG TABLET PO (09:57)
[2017-05-06] MEDS: FIBER-CON 625 MG TAB PO (09:57)
[2017-05-06] MEDS: DIGOXIN 0.125 MG TAB PO (09:58)
[2017-05-06] MEDS: OMEPRAZOLE 20 MG CAP PO (09:59)
[2017-05-06] MEDS: MULTIVITAMINS/MINERALS THERAP 1 TAB PO (10:00)
[2017-05-06] MEDS: guaiFENesin ER 600 MG TAB PO (10:00)
[2017-05-06] MEDS: LINEZOLID 600MG TABLET (ZYVOX) PO (10:00)
[2017-05-06] MEDS: ALLOPURINOL 300 MG TAB PO (10:00)
[2017-05-06] MEDS: FERROUS SULFATE 325MG TAB PO (10:00)
[2017-05-06] MEDS: DOCUSATE SODIUM 100 MG CAP PO (10:00)
[2017-05-06] MEDS: CYANOCOBALAMIN 500 MCG TAB PO (10:00)
[2017-05-06] MEDS: PRAVASTATIN 20 MG TAB PO (10:00)
[2017-05-06] MEDS: ASPIRIN 81 MG ENTERIC TAB PO (10:01)
[2017-05-06] MEDS: ZONISAMIDE 50 MG CAP (ZONEGRAN) PO (10:07)
[2017-05-07 08:06] LABS: IgG SERUM (part of Subclasses) 506 mg/dL (700-1600); IgG Subclass 1 266 mg/dL (248-810); IgG Subclass 2 78 mg/dL (130-555); IgG Subclass 3 37 mg/dL (15-102); IgG Subclass 4 29 mg/dL (2-96)
[2017-05-07 12:09] LABS: BEDSIDE GLUCOSE 282 MG/DL (80-115)
[2017-05-08 00:07] LABS: ASPERGILLUS FLAVUS ABY Negative (Neg:<1:1); ASPERGILLUS FUMIGATUS ABY Negative (Neg:<1:1); ASPERGILLUS NIGER ABY Negative (Neg:<1:1)
== END 2017-05-06 14:13 | disposition home or self-care (01) | DRG 853 ==
LOC: M PCU 04-29 16:00 → M MSPAV 05-05 20:19 → M ED 01:24 → M MSPAV 04-21 10:46 → M ED INP 04:12 → M ICU 05:13
PROC: 0B9D8ZZ Drainage of Right Middle Lung Lobe, Via Natural or Artificial Opening Endoscopic (ICD-10-PCS; principal; 2017-05-04 12:51)
PROC: 099 Ear, Nose, Sinus, Drainage (ICD-10-PCS; 2017-05-04 12:51)
PROC: 02HV33Z Insertion of Infusion Device into Superior Vena Cava, Percutaneous Approach (ICD-10-PCS; 2017-05-04 12:51)
DX: A41.9 Sepsis, unspecified organism (principal); J15.212 Pneumonia due to Methicillin resistant Staphylococcus aureus; J96.21 Acute and chronic respiratory failure with hypoxia; I50.33 Acute on chronic diastolic (congestive) heart failure; J10.08 Influenza due to other identified influenza virus with other specified pneumonia; E27.40 Unspecified adrenocortical insufficiency; Z68.41 Body mass index [BMI] 40.0-44.9, adult; B37.0 Candidal stomatitis; N18.3 Chronic kidney disease, stage 3 (moderate); G47.33 Obstructive sleep apnea (adult) (pediatric); E66.01 Morbid (severe) obesity due to excess calories; Z66 Do not resuscitate; D64.9 Anemia, unspecified; J98.09 Other diseases of bronchus, not elsewhere classified; G25.81 Restless legs syndrome; E11.22 Type 2 diabetes mellitus with diabetic chronic kidney disease; F32.9 Major depressive disorder, single episode, unspecified; Z90.2 Acquired absence of lung [part of]; Z85.118 Personal history of other malignant neoplasm of bronchus and lung; Z87.891 Personal history of nicotine dependence; Z79.01 Long term (current) use of anticoagulants; Z79.82 Long term (current) use of aspirin; Z79.4 Long term (current) use of insulin; Z79.899 Other long term (current) drug therapy; Z88.8 Allergy status to other drugs, medicaments and biological substances; Z92.3 Personal history of irradiation; Z90.5 Acquired absence of kidney

== ENCOUNTER 2017-05-07 21:13 | Inpatient (IN) | payer MEDICARE, MEDICAID ==
[2017-05-07] MEDS: GABAPENTIN 300 MG CAP PO (21:00)
[2017-05-07] MEDS: LINEZOLID 600MG TABLET (ZYVOX) PO (21:00)
[2017-05-07] MEDS: LACTOBACILLUS ACIDOPHILUS CAP (BACID) PO (21:00)
[2017-05-07] MEDS: ZONISAMIDE 50 MG CAP (ZONEGRAN) PO (21:00)
[2017-05-07] MEDS: LEVEMIR (INSULIN DETEMIR) 1 UNITS/0.01ML SC (21:00)
[2017-05-07] MEDS: SERTRALINE HCL 25 MG TABLET PO (21:00)
[2017-05-07] MEDS: METOPROLOL TARTRATE 100 MG TAB PO (21:00)
[2017-05-07] MEDS: guaiFENesin ER 600 MG TAB PO (21:00)
[2017-05-07] MEDS: rOPINIRole 1MG TAB PO (21:00)
[2017-05-07] MEDS: APIXABAN 5 MG TAB (ELIQUIS) PO (21:00)
[2017-05-07] MEDS: NS 1,000 ML IV (21:57)
[2017-05-07 22:07] LABS: HEMATOCRIT 35.8 % (42.0-52.0); HEMOGLOBIN 11.4 g/dl (13.5-17.5); MEAN CORPUSCULAR HEMOGLOBIN 33.5 pg (27.0-33.0); MEAN CORPUSCULAR HGB CONC 31.8 g/dl (32.0-36.5); MEAN CORPUSCULAR VOLUME 105.3 fl (80.0-96.0); PLATELET COUNT, AUTOMATED 117 10^3/uL (150-450)
[2017-05-07 22:10] LABS: VENOUS HCO3 27.2 MEQ/L (23.0-27.0); VENOUS O2 SATURATION 98.9 % (60.0-80.0); VENOUS PARTIAL PRESSURE CO2 40.3 mmHg (38.0-50.0); VENOUS PARTIAL PRESSURE O2 138.6 mmHg (30.0-50.0); VENOUS PH 7.447 UNITS (7.330-7.430); VENOUS STANDARD HCO3 27.1 MEQ/L; VENOUS TOTAL CO2 28.4 MEQ/L (24.0-28.0)
[2017-05-07 22:11] LABS: ADD MANUAL DIFFER YES; DIFF SLIDE NUMBER 342; POS COUNT POS FLAG; POSITIVE MORPH POS FLAG
[2017-05-07 22:12] LABS: INR 0.98; PROTHROMBIN TIME 13.1 SECONDS (12.4-14.5)
[2017-05-07 22:24] LABS: ALBUMIN 2.9 GM/DL (3.2-5.2); ALBUMIN/GLOBULIN RATIO 0.94 (1.00-1.93); ALKALINE PHOSPHATASE 85 U/L (45-117); ALT/SGPT 77 U/L (12-78); ANION GAP 9 MEQ/L (8-16); AST/SGOT 26 U/L (7-37); BILIRUBIN,DIRECT 0.1 MG/DL (0.0-0.2); BILIRUBIN,TOTAL 0.3 MG/DL (0.2-1.0); BLOOD UREA NITROGEN 33 MG/DL (7-18); CALCIUM LEVEL 8.7 MG/DL (8.8-10.2); CARBON DIOXIDE LEVEL 30 MEQ/L (21-32); CHLORIDE LEVEL 102 MEQ/L (98-107); CPK CREATINE PHOSPHOKINASE 25 U/L (39-308); CREATININE FOR GFR 1.21 MG/DL (0.70-1.30); GLOMERULAR FILTRATION RATE > 60.0 (>49); GLUCOSE, FASTING 189 MG/DL (70-100); POTASSIUM SERUM 3.7 MEQ/L (3.5-5.1); SODIUM LEVEL 141 MEQ/L (136-145); TROPONIN I 0.05 NG/ML (< 0.10)
[2017-05-07 22:26] LABS: LACTIC ACID SEPSIS PROTOCOL 2.7 MMOL/L (0.4-2.0)
[2017-05-07] MEDS: IPRATROPIUM 0.5MG/ALBUTEROL 2.5MG INH SOL UD 3ML (DUONEB)(J7620) NEB ×3 (22:28)
[2017-05-07 22:34] LABS: CK-MB VALUE MASS 2.3 NG/ML (<3.6); DIGOXIN LEVEL 0.5 NG/ML (0.5-2.0)
[2017-05-07 22:40] LABS: ATYPICAL LYMPH 2 % (0-5); LYMPHOCYTES 10 % (16-52); METAMYELOCYTES 2 % (0-0); MONOCYTES 3 % (0-8); MYELOCYTES 1 % (0-0); NEUTROPHILS 82 % (35-75)
[2017-05-07 22:41] LABS: ANISOCYTOSIS 1+; PLATELET ESTIMATE DECREASED (NORMAL)
[2017-05-07 23:15] LABS: INFLUENZA A AMPLIFICATION NEGATIVE (NEGATIVE); INFLUENZA B AMPLIFICATION NEGATIVE (NEGATIVE)
[2017-05-08] MEDS: ONDANSETRON 4MG/2ML VIAL (J2405) IV (00:30)
[2017-05-08] MEDS: ACETAMINOPHEN 325 MG TAB PO (00:30)
[2017-05-08] MEDS ORDERED: BISACODYL 5 MG TAB PO (00:45)
[2017-05-08] MEDS ORDERED: DEXTROSE 50% 50 ML SYRINGE IV (00:45)
[2017-05-08] MEDS ORDERED: GLUCAGON FOR INJ 1 MG VIAL (J1610) SC (00:45)
[2017-05-08] MEDS ORDERED: GLUCOSE 4 GM CHEW TABLET PO (00:45)
[2017-05-08] MEDS ORDERED: ALBUTEROL 90 MCG/ACT 8GM HFA INHALER INH (01:00)
[2017-05-08] MEDS ORDERED: LEVALBUTEROL 1.25 MG/0.5 ML CONCENTRATE NEB INH (01:00)
[2017-05-08] MEDS ORDERED: hydrOXYzine 25 MG TAB PO (01:00)
[2017-05-08 01:25] LABS: C REACTIVE PROTEIN QUANTITATIV 4.28 MG/DL (0.00-0.30); MAGNESIUM LEVEL 1.8 MG/DL (1.8-2.4)
[2017-05-08] MEDS ORDERED: HEPARIN SOD (PORCINE) 5000 UNITS/ML VIAL SC (06:00)
[2017-05-08 07:38] LABS: HEMATOCRIT 33.1 % (42.0-52.0); HEMOGLOBIN 10.3 g/dl (13.5-17.5); MEAN CORPUSCULAR HEMOGLOBIN 33.8 pg (27.0-33.0); MEAN CORPUSCULAR HGB CONC 31.1 g/dl (32.0-36.5); MEAN CORPUSCULAR VOLUME 108.5 fl (80.0-96.0); PLATELET COUNT, AUTOMATED 101 10^3/uL (150-450); RED BLOOD COUNT 3.05 10^6/uL (4.30-6.10); RED CELL DISTRIBUTION WIDTH 17.2 % (11.5-14.5); WHITE BLOOD COUNT 5.9 10^3/uL (4.0-10.0)
[2017-05-08] MEDS: ALBUTEROL SULFATE 2.5 MG/0.5 ML INH NEB SOLN INH ×4 (07:41→19:45)
[2017-05-08] MEDS: TIOTROPIUM INHALER/CAPSULE (SPIRIVA) INH (07:41)
[2017-05-08] MEDS: SODIUM CHLORIDE 0.9% 3ML NEB SOLUTION FOR INHALATION INH ×2 (07:41→19:45)
[2017-05-08 08:05] LABS: ANION GAP 9 MEQ/L (8-16); BLOOD UREA NITROGEN 28 MG/DL (7-18); C REACTIVE PROTEIN QUANTITATIV 5.66 MG/DL (0.00-0.30); CALCIUM LEVEL 8.3 MG/DL (8.8-10.2); CARBON DIOXIDE LEVEL 27 MEQ/L (21-32); CHLORIDE LEVEL 104 MEQ/L (98-107); CK-MB VALUE MASS 2.2 NG/ML (<3.6); CPK CREATINE PHOSPHOKINASE 29 U/L (39-308); CREATININE FOR GFR 1.16 MG/DL (0.70-1.30); GLOMERULAR FILTRATION RATE > 60.0 (>49); GLUCOSE, FASTING 176 MG/DL (70-100); MB/CK RELATIVE INDEX 7.58 (< OR =4); POTASSIUM SERUM 3.7 MEQ/L (3.5-5.1); SODIUM LEVEL 140 MEQ/L (136-145); TROPONIN I 0.04 NG/ML (< 0.10)
[2017-05-08] MEDS ORDERED: LEVEMIR (INSULIN DETEMIR) 1 UNITS/0.01ML SC (09:00)
[2017-05-08] MEDS ORDERED: NON-FORMULARY COMPOUNDED MEDICATION INH (09:00)
[2017-05-08] MEDS: HumaLOG INSULIN (NovoLOG) PER UNIT SC ×4 (09:05→21:41)
[2017-05-08] MEDS: LEVEMIR (INSULIN DETEMIR) 1 UNITS/0.01ML SC ×2 (09:06→21:40)
[2017-05-08] MEDS: LACTOBACILLUS ACIDOPHILUS CAP (BACID) PO ×3 (09:06→21:38)
[2017-05-08] MEDS: APIXABAN 5 MG TAB (ELIQUIS) PO ×2 (09:06→21:38)
[2017-05-08] MEDS: rOPINIRole 1MG TAB PO ×2 (09:07→21:38)
[2017-05-08] MEDS: ZONISAMIDE 50 MG CAP (ZONEGRAN) PO ×2 (09:07→21:40)
[2017-05-08] MEDS: GABAPENTIN 300 MG CAP PO ×3 (09:07→21:38)
[2017-05-08] MEDS: guaiFENesin ER 600 MG TAB PO ×2 (09:07→21:38)
[2017-05-08] MEDS: FIBER-CON 625 MG TAB PO (09:08)
[2017-05-08] MEDS: LINEZOLID 600MG TABLET (ZYVOX) PO ×2 (09:08→21:38)
[2017-05-08] MEDS: METOPROLOL TARTRATE 100 MG TAB PO ×2 (09:08→21:39)
[2017-05-08] MEDS: OMEPRAZOLE 20 MG CAP PO (09:08)
[2017-05-08] MEDS: FERROUS SULFATE 325MG TAB PO (09:08)
[2017-05-08] MEDS: predniSONE 10 MG TAB PO (09:09)
[2017-05-08] MEDS: DIGOXIN 0.125 MG TAB PO (09:09)
[2017-05-08] MEDS: MAGNESIUM OXIDE 400 MG TAB (MAG-OX) PO (09:09)
[2017-05-08] MEDS: TORSEMIDE 5MG TABLET PO (09:09)
[2017-05-08] MEDS: ASPIRIN 81 MG ENTERIC TAB PO (09:10)
[2017-05-08] MEDS: CYANOCOBALAMIN 500 MCG TAB PO (09:10)
[2017-05-08] MEDS: MULTIVITAMINS/MINERALS THERAP 1 TAB PO (09:10)
[2017-05-08] MEDS: PRAVASTATIN 20 MG TAB PO (09:10)
[2017-05-08] MEDS: ALLOPURINOL 300 MG TAB PO (09:10)
[2017-05-08 18:06] LABS: BEDSIDE GLUCOSE 186 MG/DL (80-115)
[2017-05-08] MEDS: SERTRALINE HCL 25 MG TABLET PO (21:38)
[2017-05-08 22:01] LABS: BEDSIDE GLUCOSE 188 MG/DL (80-115)
[2017-05-08 22:01] LABS: BEDSIDE GLUCOSE 296 MG/DL (80-115)
[2017-05-09 06:55] LABS: HEMOGLOBIN 9.8 g/dl (13.5-17.5); MEAN CORPUSCULAR HEMOGLOBIN 33.2 pg (27.0-33.0); MEAN CORPUSCULAR HGB CONC 30.6 g/dl (32.0-36.5); MEAN CORPUSCULAR VOLUME 108.5 fl (80.0-96.0); RED BLOOD COUNT 2.95 10^6/uL (4.30-6.10); RED CELL DISTRIBUTION WIDTH 16.9 % (11.5-14.5); WHITE BLOOD COUNT 4.8 10^3/uL (4.0-10.0)
[2017-05-09 06:57] LABS: PLATELET COUNT, AUTOMATED 93 10^3/uL (150-450); POS COUNT POS FLAG; POSITIVE MORPH POS FLAG
[2017-05-09 06:58] LABS: ADD MANUAL DIFFER YES; DIFF SLIDE NUMBER 65; IMMATURE PLATELET FRACTION % 3.6 % (0.0-10.9)
[2017-05-09 07:17] LABS: ANION GAP 4 MEQ/L (8-16); BLOOD UREA NITROGEN 22 MG/DL (7-18); CALCIUM LEVEL 8.6 MG/DL (8.8-10.2); CARBON DIOXIDE LEVEL 31 MEQ/L (21-32); CHLORIDE LEVEL 103 MEQ/L (98-107); CREATININE FOR GFR 1.02 MG/DL (0.70-1.30); GLOMERULAR FILTRATION RATE > 60.0 (>49); GLUCOSE, FASTING 143 MG/DL (70-100); POTASSIUM SERUM 3.6 MEQ/L (3.5-5.1); SODIUM LEVEL 138 MEQ/L (136-145)
[2017-05-09] MEDS: HumaLOG INSULIN (NovoLOG) PER UNIT SC ×4 (07:30→20:16)
[2017-05-09] MEDS: LEVEMIR (INSULIN DETEMIR) 1 UNITS/0.01ML SC ×2 (07:31→20:17)
[2017-05-09] MEDS: guaiFENesin ER 600 MG TAB PO ×2 (07:31→20:16)
[2017-05-09] MEDS: MAGNESIUM OXIDE 400 MG TAB (MAG-OX) PO (07:31)
[2017-05-09] MEDS: ALLOPURINOL 300 MG TAB PO (07:31)
[2017-05-09] MEDS: GABAPENTIN 300 MG CAP PO ×3 (07:32→20:16)
[2017-05-09] MEDS: LACTOBACILLUS ACIDOPHILUS CAP (BACID) PO ×3 (07:32→20:14)
[2017-05-09] MEDS: CYANOCOBALAMIN 500 MCG TAB PO (07:32)
[2017-05-09] MEDS: FERROUS SULFATE 325MG TAB PO (07:32)
[2017-05-09] MEDS: FIBER-CON 625 MG TAB PO (07:32)
[2017-05-09] MEDS: APIXABAN 5 MG TAB (ELIQUIS) PO ×2 (07:33→20:15)
[2017-05-09] MEDS: DIGOXIN 0.125 MG TAB PO (07:33)
[2017-05-09] MEDS: LINEZOLID 600MG TABLET (ZYVOX) PO ×2 (07:33→20:15)
[2017-05-09] MEDS: MULTIVITAMINS/MINERALS THERAP 1 TAB PO (07:33)
[2017-05-09] MEDS: ASPIRIN 81 MG ENTERIC TAB PO (07:33)
[2017-05-09] MEDS: METOPROLOL TARTRATE 100 MG TAB PO ×2 (07:34→20:15)
[2017-05-09 07:38] LABS: ATYPICAL LYMPH 1 % (0-5); BANDS 2 % (< 11); EOSINOPHILS 1 % (0-5); LYMPHOCYTES 15 % (16-52); METAMYELOCYTES 2 % (0-0); MONOCYTES 3 % (0-8); MYELOCYTES 3 % (0-0); NEUTROPHILS 73 % (35-75)
[2017-05-09 07:39] LABS: PLATELET ESTIMATE DECREASED (NORMAL)
[2017-05-09 07:40] LABS: POLYCHROMASIA 1+
[2017-05-09] MEDS: predniSONE 10 MG TAB PO (07:40)
[2017-05-09] MEDS: OMEPRAZOLE 20 MG CAP PO (07:40)
[2017-05-09] MEDS: ZONISAMIDE 50 MG CAP (ZONEGRAN) PO ×2 (07:40→20:14)
[2017-05-09] MEDS: PRAVASTATIN 20 MG TAB PO (07:40)
[2017-05-09] MEDS: TORSEMIDE 5MG TABLET PO (07:40)
[2017-05-09] MEDS: rOPINIRole 1MG TAB PO ×2 (07:41→20:14)
[2017-05-09] MEDS: SODIUM CHLORIDE 0.9% 3ML NEB SOLUTION FOR INHALATION INH ×2 (08:06→20:01)
[2017-05-09] MEDS: ALBUTEROL SULFATE 2.5 MG/0.5 ML INH NEB SOLN INH ×4 (08:06→20:01)
[2017-05-09] MEDS: TIOTROPIUM INHALER/CAPSULE (SPIRIVA) INH (08:06)
[2017-05-09] MEDS: EUCERIN 120GM CREAM TOP ×2 (09:00→20:17)
[2017-05-09] MEDS: SERTRALINE HCL 25 MG TABLET PO (20:15)
[2017-05-10 03:22] LABS: BEDSIDE GLUCOSE 213 MG/DL (80-115)
[2017-05-10 03:22] LABS: BEDSIDE GLUCOSE 252 MG/DL (80-115)
[2017-05-10 03:22] LABS: BEDSIDE GLUCOSE 259 MG/DL (80-115)
[2017-05-10 06:40] LABS: HEMATOCRIT 31.2 % (42.0-52.0); HEMOGLOBIN 9.8 g/dl (13.5-17.5); MEAN CORPUSCULAR HEMOGLOBIN 33.2 pg (27.0-33.0); MEAN CORPUSCULAR HGB CONC 31.4 g/dl (32.0-36.5); MEAN CORPUSCULAR VOLUME 105.8 fl (80.0-96.0); RED BLOOD COUNT 2.95 10^6/uL (4.30-6.10); RED CELL DISTRIBUTION WIDTH 16.7 % (11.5-14.5); WHITE BLOOD COUNT 5.5 10^3/uL (4.0-10.0)
[2017-05-10 06:47] LABS: ADD MANUAL DIFFER YES; DIFF SLIDE NUMBER 52; PLATELET COUNT, AUTOMATED 98 10^3/uL (150-450); POS COUNT POS FLAG; POSITIVE MORPH POS FLAG
[2017-05-10 06:59] LABS: ANION GAP 5 MEQ/L (8-16); BLOOD UREA NITROGEN 19 MG/DL (7-18); C REACTIVE PROTEIN QUANTITATIV 3.28 MG/DL (0.00-0.30); CALCIUM LEVEL 7.9 MG/DL (8.8-10.2); CARBON DIOXIDE LEVEL 32 MEQ/L (21-32); CHLORIDE LEVEL 103 MEQ/L (98-107); GLOMERULAR FILTRATION RATE > 60.0 (>49); GLUCOSE, FASTING 162 MG/DL (70-100); MAGNESIUM LEVEL 1.8 MG/DL (1.8-2.4); POTASSIUM SERUM 3.8 MEQ/L (3.5-5.1); SODIUM LEVEL 140 MEQ/L (136-145)
[2017-05-10 07:01] LABS: ANISOCYTOSIS 1+; ATYPICAL LYMPH 2 % (0-5); BANDS 1 % (< 11); BASOPHILS 1 % (0-4); LYMPHOCYTES 22 % (16-52); MONOCYTES 4 % (0-8); NEUTROPHILS 70 % (35-75); PLATELET ESTIMATE DECREASED (NORMAL)
[2017-05-10 07:03] LABS: POLYCHROMASIA 1+
[2017-05-10] MEDS: ALBUTEROL SULFATE 2.5 MG/0.5 ML INH NEB SOLN INH ×4 (07:42→19:24)
[2017-05-10] MEDS: TIOTROPIUM INHALER/CAPSULE (SPIRIVA) INH (07:42)
[2017-05-10] MEDS: SODIUM CHLORIDE 0.9% 3ML NEB SOLUTION FOR INHALATION INH ×2 (08:00→19:24)
[2017-05-10] MEDS: HumaLOG INSULIN (NovoLOG) PER UNIT SC ×4 (09:39→21:00)
[2017-05-10] MEDS: FIBER-CON 625 MG TAB PO (09:40)
[2017-05-10] MEDS: GABAPENTIN 300 MG CAP PO ×3 (09:40→22:03)
[2017-05-10] MEDS: TORSEMIDE 5MG TABLET PO (09:40)
[2017-05-10] MEDS: LEVEMIR (INSULIN DETEMIR) 1 UNITS/0.01ML SC ×2 (09:40→21:00)
[2017-05-10] MEDS: DIGOXIN 0.125 MG TAB PO (09:41)
[2017-05-10] MEDS: OMEPRAZOLE 20 MG CAP PO (09:41)
[2017-05-10] MEDS: ZONISAMIDE 50 MG CAP (ZONEGRAN) PO ×2 (09:41→22:03)
[2017-05-10] MEDS: MAGNESIUM OXIDE 400 MG TAB (MAG-OX) PO (09:41)
[2017-05-10] MEDS: METOPROLOL TARTRATE 100 MG TAB PO ×2 (09:42→22:04)
[2017-05-10] MEDS: LACTOBACILLUS ACIDOPHILUS CAP (BACID) PO ×3 (09:42→22:03)
[2017-05-10] MEDS: ASPIRIN 81 MG ENTERIC TAB PO (09:42)
[2017-05-10] MEDS: FERROUS SULFATE 325MG TAB PO (09:42)
[2017-05-10] MEDS: MULTIVITAMINS/MINERALS THERAP 1 TAB PO (09:42)
[2017-05-10] MEDS: APIXABAN 5 MG TAB (ELIQUIS) PO ×2 (09:42→22:03)
[2017-05-10] MEDS: predniSONE 10 MG TAB PO (09:43)
[2017-05-10] MEDS: rOPINIRole 1MG TAB PO ×2 (09:43→22:03)
[2017-05-10] MEDS: PRAVASTATIN 20 MG TAB PO (09:43)
[2017-05-10] MEDS: ALLOPURINOL 300 MG TAB PO (09:43)
[2017-05-10] MEDS: CYANOCOBALAMIN 500 MCG TAB PO (09:43)
[2017-05-10] MEDS: LINEZOLID 600MG TABLET (ZYVOX) PO ×2 (09:43→22:03)
[2017-05-10] MEDS: EUCERIN 120GM CREAM TOP ×2 (09:45→21:00)
[2017-05-10] MEDS: guaiFENesin ER 600 MG TAB PO ×2 (09:47→22:03)
[2017-05-10] MEDS: ONDANSETRON 4MG/2ML VIAL (J2405) IV (14:00)
[2017-05-10] MEDS: SERTRALINE HCL 25 MG TABLET PO (22:03)
[2017-05-11 07:02] LABS: HEMATOCRIT 31.8 % (42.0-52.0); HEMOGLOBIN 9.9 g/dl (13.5-17.5); MEAN CORPUSCULAR HEMOGLOBIN 33.2 pg (27.0-33.0); MEAN CORPUSCULAR HGB CONC 31.1 g/dl (32.0-36.5); MEAN CORPUSCULAR VOLUME 106.7 fl (80.0-96.0); RED BLOOD COUNT 2.98 10^6/uL (4.30-6.10); RED CELL DISTRIBUTION WIDTH 16.9 % (11.5-14.5); WHITE BLOOD COUNT 5.3 10^3/uL (4.0-10.0)
[2017-05-11 07:04] LABS: PLATELET COUNT, AUTOMATED 96 10^3/uL (150-450); POS COUNT POS FLAG; POSITIVE MORPH POS FLAG
[2017-05-11 07:08] LABS: ADD MANUAL DIFFER YES; DIFF SLIDE NUMBER 43
[2017-05-11 07:11] LABS: IMMATURE PLATELET FRACTION % 4.1 % (0.0-10.9); PLATELET F 96
[2017-05-11] MEDS: ALBUTEROL SULFATE 2.5 MG/0.5 ML INH NEB SOLN INH ×4 (07:16→21:04)
[2017-05-11] MEDS: SODIUM CHLORIDE 0.9% 3ML NEB SOLUTION FOR INHALATION INH ×2 (07:16→20:00)
[2017-05-11] MEDS: TIOTROPIUM INHALER/CAPSULE (SPIRIVA) INH (07:16)
[2017-05-11 07:20] LABS: ANION GAP 4 MEQ/L (8-16); BLOOD UREA NITROGEN 22 MG/DL (7-18); C REACTIVE PROTEIN QUANTITATIV 2.42 MG/DL (0.00-0.30); CALCIUM LEVEL 8.2 MG/DL (8.8-10.2); CARBON DIOXIDE LEVEL 32 MEQ/L (21-32); CHLORIDE LEVEL 105 MEQ/L (98-107); CREATININE FOR GFR 1.04 MG/DL (0.70-1.30); GLOMERULAR FILTRATION RATE > 60.0 (>49); GLUCOSE, FASTING 93 MG/DL (70-100); MAGNESIUM LEVEL 1.8 MG/DL (1.8-2.4); POTASSIUM SERUM 3.6 MEQ/L (3.5-5.1); SODIUM LEVEL 141 MEQ/L (136-145)
[2017-05-11 07:48] LABS: ATYPICAL LYMPH 3 % (0-5); LYMPHOCYTES 14 % (16-52); MONOCYTES 7 % (0-8); MYELOCYTES 3 % (0-0); NEUTROPHILS 73 % (35-75)
[2017-05-11 07:49] LABS: PLATELET ESTIMATE DECREASED (NORMAL)
[2017-05-11 07:50] LABS: ANISOCYTOSIS 2+; POLYCHROMASIA 1+
[2017-05-11] MEDS ORDERED: ONDANSETRON 4 MG TAB (S0181) PO (08:00)
[2017-05-11] MEDS: LEVEMIR (INSULIN DETEMIR) 1 UNITS/0.01ML SC ×2 (08:43→21:30)
[2017-05-11] MEDS: FIBER-CON 625 MG TAB PO (08:44)
[2017-05-11] MEDS: rOPINIRole 1MG TAB PO ×2 (08:44→21:30)
[2017-05-11] MEDS: LINEZOLID 600MG TABLET (ZYVOX) PO ×2 (08:45→21:28)
[2017-05-11] MEDS: MULTIVITAMINS/MINERALS THERAP 1 TAB PO (08:45)
[2017-05-11] MEDS: CYANOCOBALAMIN 500 MCG TAB PO (08:45)
[2017-05-11] MEDS: GABAPENTIN 300 MG CAP PO ×3 (08:45→21:29)
[2017-05-11] MEDS: ASPIRIN 81 MG ENTERIC TAB PO (08:45)
[2017-05-11] MEDS: LACTOBACILLUS ACIDOPHILUS CAP (BACID) PO ×3 (08:45→21:30)
[2017-05-11] MEDS: FERROUS SULFATE 325MG TAB PO (08:45)
[2017-05-11] MEDS: MAGNESIUM OXIDE 400 MG TAB (MAG-OX) PO (08:46)
[2017-05-11] MEDS: METOPROLOL TARTRATE 100 MG TAB PO ×2 (08:46→21:31)
[2017-05-11] MEDS: OMEPRAZOLE 20 MG CAP PO (08:46)
[2017-05-11] MEDS: PRAVASTATIN 20 MG TAB PO (08:46)
[2017-05-11] MEDS: HumaLOG INSULIN (NovoLOG) PER UNIT SC ×4 (08:47→21:29)
[2017-05-11] MEDS: APIXABAN 5 MG TAB (ELIQUIS) PO ×2 (08:47→21:28)
[2017-05-11] MEDS: guaiFENesin ER 600 MG TAB PO ×2 (08:47→21:28)
[2017-05-11] MEDS: predniSONE 10 MG TAB PO (08:47)
[2017-05-11] MEDS: DIGOXIN 0.125 MG TAB PO (08:47)
[2017-05-11] MEDS: TORSEMIDE 5MG TABLET PO (08:58)
[2017-05-11] MEDS: EUCERIN 120GM CREAM TOP ×2 (08:58→21:31)
[2017-05-11] MEDS: ZONISAMIDE 50 MG CAP (ZONEGRAN) PO ×2 (08:58→21:28)
[2017-05-11 11:45] LABS: BEDSIDE GLUCOSE 289 MG/DL (80-115)
[2017-05-11 11:45] LABS: BEDSIDE GLUCOSE 258 MG/DL (80-115)
[2017-05-11 11:45] LABS: BEDSIDE GLUCOSE 208 MG/DL (80-115)
[2017-05-11] MEDS: ALLOPURINOL 300 MG TAB PO (12:36)
[2017-05-11] MEDS: LOPERAMIDE 2 MG CAP PO (12:36)
[2017-05-11] MEDS: ACETAMINOPHEN TAB 650MG DOSE (2X325MG) PO (13:00)
[2017-05-11] MEDS: SERTRALINE HCL 25 MG TABLET PO (21:28)
[2017-05-12 06:18] LABS: HEMATOCRIT 30.7 % (42.0-52.0); HEMOGLOBIN 9.9 g/dl (13.5-17.5); MEAN CORPUSCULAR HEMOGLOBIN 34.5 pg (27.0-33.0); MEAN CORPUSCULAR HGB CONC 32.2 g/dl (32.0-36.5); RED BLOOD COUNT 2.87 10^6/uL (4.30-6.10); RED CELL DISTRIBUTION WIDTH 17.2 % (11.5-14.5); WHITE BLOOD COUNT 4.5 10^3/uL (4.0-10.0)
[2017-05-12 06:20] LABS: ADD MANUAL DIFFER YES; DIFF SLIDE NUMBER 24; PLATELET COUNT, AUTOMATED 98 10^3/uL (150-450); POS COUNT POS FLAG; POSITIVE MORPH POS FLAG
[2017-05-12 06:42] LABS: ANION GAP 5 MEQ/L (8-16); BLOOD UREA NITROGEN 22 MG/DL (7-18); C REACTIVE PROTEIN QUANTITATIV 2.02 MG/DL (0.00-0.30); CALCIUM LEVEL 8.1 MG/DL (8.8-10.2); CARBON DIOXIDE LEVEL 29 MEQ/L (21-32); CHLORIDE LEVEL 108 MEQ/L (98-107); CREATININE FOR GFR 1.15 MG/DL (0.70-1.30); GLOMERULAR FILTRATION RATE > 60.0 (>49); GLUCOSE, FASTING 112 MG/DL (70-100); MAGNESIUM LEVEL 1.7 MG/DL (1.8-2.4); POTASSIUM SERUM 3.9 MEQ/L (3.5-5.1); SODIUM LEVEL 142 MEQ/L (136-145)
[2017-05-12] MEDS: HumaLOG INSULIN (NovoLOG) PER UNIT SC ×2 (07:30→12:12)
[2017-05-12 07:50] LABS: ANISOCYTOSIS 1+; BANDS 2 % (< 11); LYMPHOCYTES 20 % (16-52); MONOCYTES 8 % (0-8); MYELOCYTES 2 % (0-0); NEUTROPHILS 68 % (35-75); PLATELET ESTIMATE DECREASED (NORMAL); POIKILOCYTOSIS 1+; TOXIC VACUOLATION 1+
[2017-05-12] MEDS: TIOTROPIUM INHALER/CAPSULE (SPIRIVA) INH (08:48)
[2017-05-12] MEDS: SODIUM CHLORIDE 0.9% 3ML NEB SOLUTION FOR INHALATION INH (08:48)
[2017-05-12] MEDS: ALBUTEROL SULFATE 2.5 MG/0.5 ML INH NEB SOLN INH ×3 (08:48→15:53)
[2017-05-12] MEDS: predniSONE 10 MG TAB PO (09:06)
[2017-05-12] MEDS: TORSEMIDE 5MG TABLET PO (09:06)
[2017-05-12] MEDS: CYANOCOBALAMIN 500 MCG TAB PO (09:06)
[2017-05-12] MEDS: LINEZOLID 600MG TABLET (ZYVOX) PO (09:06)
[2017-05-12] MEDS: ZONISAMIDE 50 MG CAP (ZONEGRAN) PO (09:06)
[2017-05-12] MEDS: GABAPENTIN 300 MG CAP PO ×2 (09:06→16:26)
[2017-05-12] MEDS: rOPINIRole 1MG TAB PO (09:06)
[2017-05-12] MEDS: ASPIRIN 81 MG ENTERIC TAB PO (09:06)
[2017-05-12] MEDS: ALLOPURINOL 300 MG TAB PO (09:07)
[2017-05-12] MEDS: METOPROLOL TARTRATE 100 MG TAB PO (09:07)
[2017-05-12] MEDS: FIBER-CON 625 MG TAB PO (09:07)
[2017-05-12] MEDS: PRAVASTATIN 20 MG TAB PO (09:07)
[2017-05-12] MEDS: guaiFENesin ER 600 MG TAB PO (09:07)
[2017-05-12] MEDS: MAGNESIUM OXIDE 400 MG TAB (MAG-OX) PO (09:07)
[2017-05-12] MEDS: APIXABAN 5 MG TAB (ELIQUIS) PO (09:07)
[2017-05-12] MEDS: OMEPRAZOLE 20 MG CAP PO (09:07)
[2017-05-12] MEDS: FERROUS SULFATE 325MG TAB PO (09:08)
[2017-05-12] MEDS: LACTOBACILLUS ACIDOPHILUS CAP (BACID) PO ×2 (09:08→16:26)
[2017-05-12] MEDS: EUCERIN 120GM CREAM TOP (09:08)
[2017-05-12] MEDS: MULTIVITAMINS/MINERALS THERAP 1 TAB PO (09:08)
[2017-05-12] MEDS: DIGOXIN 0.125 MG TAB PO (09:08)
[2017-05-12] MEDS: LEVEMIR (INSULIN DETEMIR) 1 UNITS/0.01ML SC (09:08)
[2017-05-12] MEDS: LOPERAMIDE 2 MG CAP PO (14:31)
[2017-05-12 16:53] LABS: BEDSIDE GLUCOSE 254 MG/DL (80-115)
[2017-05-12 16:53] LABS: BEDSIDE GLUCOSE 198 MG/DL (80-115)
[2017-05-12 16:53] LABS: BEDSIDE GLUCOSE 203 MG/DL (80-115)
[2017-05-12 16:53] LABS: BEDSIDE GLUCOSE 193 MG/DL (80-115)
[2017-05-12 16:53] LABS: BEDSIDE GLUCOSE 292 MG/DL (80-115)
== END 2017-05-12 16:40 | DRG 948 ==
LOC: M ED INP 05-08 01:12 → M MS5PR 05-08 14:17 → M ED 21:13
DX: R53.1 Weakness (principal); E27.40 Unspecified adrenocortical insufficiency; E87.2 Acidosis; Z68.41 Body mass index [BMI] 40.0-44.9, adult; J96.11 Chronic respiratory failure with hypoxia; I50.9 Heart failure, unspecified; E11.22 Type 2 diabetes mellitus with diabetic chronic kidney disease; N18.3 Chronic kidney disease, stage 3 (moderate); J44.9 Chronic obstructive pulmonary disease, unspecified; Z66 Do not resuscitate; G47.33 Obstructive sleep apnea (adult) (pediatric); D64.9 Anemia, unspecified; E66.01 Morbid (severe) obesity due to excess calories; G25.81 Restless legs syndrome; F32.9 Major depressive disorder, single episode, unspecified; R20.0 Anesthesia of skin; I48.91 Unspecified atrial fibrillation; G89.29 Other chronic pain; D69.6 Thrombocytopenia, unspecified; R11.0 Nausea; J98.09 Other diseases of bronchus, not elsewhere classified; Z86.14 Personal history of Methicillin resistant Staphylococcus aureus infection; J84.10 Pulmonary fibrosis, unspecified; Z79.52 Long term (current) use of systemic steroids; Z79.82 Long term (current) use of aspirin; Z79.4 Long term (current) use of insulin; Z79.899 Other long term (current) drug therapy; Z91.048 Other nonmedicinal substance allergy status; Z88.8 Allergy status to other drugs, medicaments and biological substances; Z92.3 Personal history of irradiation; Z90.2 Acquired absence of lung [part of]; Z85.118 Personal history of other malignant neoplasm of bronchus and lung; Z99.81 Dependence on supplemental oxygen; Z79.01 Long term (current) use of anticoagulants; Z90.5 Acquired absence of kidney

== ENCOUNTER 2017-05-22 12:38 | Inpatient (IN) | payer MEDICARE, MEDICAID ==
[2017-05-22] MEDS: IPRATROPIUM 0.5MG/ALBUTEROL 2.5MG INH SOL UD 3ML (DUONEB)(J7620) NEB ×2 (13:05→20:00)
[2017-05-22 13:23] LABS: ABG BASE EXCESS 3.5 (-2.0-2.0); ABG HCO3 28.7 MEQ/L (22.0-26.0); ABG O2 SATURATION 99.3 % (95.0-99.0); ABG PARTIAL PRESSURE CO2 46.9 mmHg (35.0-45.0); ABG PARTIAL PRESSURE O2 168.6 mmHg (75.0-100.0); ABG STANDARD HCO3 27.6 MEQ/L (22.0-26.0); ABG TOTAL CO2 30.1 MEQ/L (23.0-31.0); ABG pH (ARTERIAL) 7.404 UNITS (7.350-7.450)
[2017-05-22 13:44] LABS: BASO % 0.5 % (0.0-1.0); EOS % 0.2 % (0.0-3.0); HEMATOCRIT 23.4 % (42.0-52.0); HEMOGLOBIN 7.6 g/dl (13.5-17.5); IMMATURE GRANULOCYTE % 1.1 % (0-3.0); LYMPH # 0.9 10^3/uL (1.5-4.5); LYMPH % 20.1 % (24.0-44.0); MEAN CORPUSCULAR HEMOGLOBIN 33.6 pg (27.0-33.0); MEAN CORPUSCULAR HGB CONC 32.5 g/dl (32.0-36.5); MEAN CORPUSCULAR VOLUME 103.5 fl (80.0-96.0); MONO # 0.3 10^3/uL (0.0-0.8); MONO % 6.3 % (0.0-5.0); NEUTROPHILS # 3.2 10^3/uL (1.8-7.7); NEUTROPHILS % 71.8 % (36.0-66.0); RED BLOOD COUNT 2.26 10^6/uL (4.30-6.10); RED CELL DISTRIBUTION WIDTH 15.9 % (11.5-14.5); WHITE BLOOD COUNT 4.4 10^3/uL (4.0-10.0)
[2017-05-22 13:46] LABS: PLATELET COUNT, AUTOMATED 81 10^3/uL (150-450)
[2017-05-22 13:54] LABS: IMMATURE PLATELET FRACTION % 4.3 % (0.0-10.9); INR 1.56; PLATELET F 86; PROTHROMBIN TIME 19.1 SECONDS (12.4-14.5)
[2017-05-22 14:18] LABS: ALBUMIN 2.8 GM/DL (3.2-5.2); ALBUMIN/GLOBULIN RATIO 0.97 (1.00-1.93); ALKALINE PHOSPHATASE 62 U/L (45-117); ALT/SGPT 47 U/L (12-78); ANION GAP 11 MEQ/L (8-16); AST/SGOT 25 U/L (7-37); BILIRUBIN,DIRECT 0.3 MG/DL (0.0-0.2); BILIRUBIN,TOTAL 0.7 MG/DL (0.2-1.0); BLOOD UREA NITROGEN 17 MG/DL (7-18); CALCIUM LEVEL 8.1 MG/DL (8.8-10.2); CARBON DIOXIDE LEVEL 29 MEQ/L (21-32); CHLORIDE LEVEL 103 MEQ/L (98-107); CPK CREATINE PHOSPHOKINASE 22 U/L (39-308); CREATININE FOR GFR 1.28 MG/DL (0.70-1.30); GLOMERULAR FILTRATION RATE > 60.0 (>49); GLUCOSE, FASTING 121 MG/DL (70-100); LIPASE 44 U/L (73-393); POTASSIUM SERUM 4.1 MEQ/L (3.5-5.1); SODIUM LEVEL 143 MEQ/L (136-145); TOTAL PROTEIN 5.7 GM/DL (6.4-8.2); TROPONIN I 0.03 NG/ML (< 0.10)
[2017-05-22 14:20] LABS: LACTIC ACID SEPSIS PROTOCOL 6.1 MMOL/L (0.4-2.0)
[2017-05-22 14:28] LABS: CK-MB VALUE MASS 1.9 NG/ML (<3.6); DIGOXIN LEVEL 0.8 NG/ML (0.5-2.0); MB/CK RELATIVE INDEX 8.63 (< OR =4)
[2017-05-22] MEDS: NS IV (15:25)
[2017-05-22] MEDS: DILUENT IV (15:25)
[2017-05-22] MEDS: PANTOPRAZOLE 40MG INJ (PROTONIX) (C9113) IV (15:25)
[2017-05-22] MEDS: cefTRIAXone SOD 2 GM in D5W MINI-BAG PLUS 50 ML IV (15:30)
[2017-05-22] MEDS ORDERED: GLUCAGON FOR INJ 1 MG VIAL (J1610) SC (18:00)
[2017-05-22] MEDS: HumaLOG INSULIN (NovoLOG) PER UNIT SC (18:00)
[2017-05-22] MEDS ORDERED: DEXTROSE 50% 50 ML SYRINGE IV (18:00)
[2017-05-22] MEDS ORDERED: GLUCOSE 4 GM CHEW TABLET PO (18:00)
[2017-05-22 18:33] LABS: IMMEDIATE SPIN CROSSMATCH 1 2
[2017-05-22] MEDS: ADVAIR HFA 230/21MCG INHALER INH (21:00)
[2017-05-22 21:19] LABS: BEDSIDE GLUCOSE 117 MG/DL (80-115)
[2017-05-22] MEDS: NS 1,250 ML IV (22:16)
[2017-05-22] MEDS: LEVEMIR (INSULIN DETEMIR) 1 UNITS/0.01ML SC (22:16)
[2017-05-22] MEDS: PANTOPRAZOLE SODIUM 40 MG in D5W 50 ML IV (22:17)
[2017-05-22] MEDS: LINEZOLID 600MG TABLET (ZYVOX) PO (22:18)
[2017-05-22] MEDS: GABAPENTIN 300 MG CAP PO (22:18)
[2017-05-22] MEDS: rOPINIRole 1MG TAB PO (22:18)
[2017-05-22] MEDS: SERTRALINE HCL 25 MG TABLET PO (22:19)
[2017-05-22 23:05] LABS: HEMATOCRIT 25.7 % (42.0-52.0); HEMOGLOBIN 8.5 g/dl (13.5-17.5)
[2017-05-23 00:40] LABS: BEDSIDE GLUCOSE 127 MG/DL (80-115)
[2017-05-23] MEDS: IPRATROPIUM 0.5MG/ALBUTEROL 2.5MG INH SOL UD 3ML (DUONEB)(J7620) NEB ×4 (00:44→20:00)
[2017-05-23] MEDS: HumaLOG INSULIN (NovoLOG) PER UNIT SC ×4 (00:53→17:41)
[2017-05-23] MEDS: PANTOPRAZOLE SODIUM 40 MG in D5W 50 ML IV ×6 (01:45→22:09)
[2017-05-23 04:56] LABS: HEMATOCRIT 23.8 % (42.0-52.0); HEMOGLOBIN 7.9 g/dl (13.5-17.5); MEAN CORPUSCULAR HEMOGLOBIN 33.3 pg (27.0-33.0); MEAN CORPUSCULAR HGB CONC 33.2 g/dl (32.0-36.5); MEAN CORPUSCULAR VOLUME 100.4 fl (80.0-96.0); RED BLOOD COUNT 2.37 10^6/uL (4.30-6.10); RED CELL DISTRIBUTION WIDTH 17.1 % (11.5-14.5); WHITE BLOOD COUNT 2.9 10^3/uL (4.0-10.0)
[2017-05-23 04:58] LABS: PLATELET COUNT, AUTOMATED 69 10^3/uL (150-450)
[2017-05-23 05:16] LABS: ALBUMIN 2.6 GM/DL (3.2-5.2); ALBUMIN/GLOBULIN RATIO 0.81 (1.00-1.93); ALKALINE PHOSPHATASE 61 U/L (45-117); ALT/SGPT 40 U/L (12-78); ANION GAP 6 MEQ/L (8-16); AST/SGOT 22 U/L (7-37); BILIRUBIN,TOTAL 0.4 MG/DL (0.2-1.0); BLOOD UREA NITROGEN 16 MG/DL (7-18); CARBON DIOXIDE LEVEL 32 MEQ/L (21-32); CHLORIDE LEVEL 106 MEQ/L (98-107); CREATININE FOR GFR 1.23 MG/DL (0.70-1.30); GLOMERULAR FILTRATION RATE > 60.0 (>49); GLUCOSE, FASTING 94 MG/DL (70-100); MAGNESIUM LEVEL 1.6 MG/DL (1.8-2.4); POTASSIUM SERUM 3.7 MEQ/L (3.5-5.1); SODIUM LEVEL 144 MEQ/L (136-145); TOTAL PROTEIN 5.8 GM/DL (6.4-8.2)
[2017-05-23] MEDS: MAG SULF 1GM/100ML (MAG RUN) 1 GM in APPROPRIATE DILUENT 1 EA IV (07:26)
[2017-05-23] MEDS: ADVAIR HFA 230/21MCG INHALER INH ×2 (07:55→20:22)
[2017-05-23] MEDS: DIGOXIN 0.125 MG TAB PO (08:41)
[2017-05-23] MEDS: LINEZOLID 600MG TABLET (ZYVOX) PO ×2 (08:42→20:48)
[2017-05-23] MEDS: LEVEMIR (INSULIN DETEMIR) 1 UNITS/0.01ML SC ×2 (08:42→20:47)
[2017-05-23] MEDS: rOPINIRole 1MG TAB PO ×2 (08:42→20:47)
[2017-05-23] MEDS: FERROUS SULFATE 325MG TAB PO (08:42)
[2017-05-23] MEDS: ALLOPURINOL 300 MG TAB PO (08:43)
[2017-05-23] MEDS: MAGNESIUM OXIDE 400 MG TAB (MAG-OX) PO (08:43)
[2017-05-23] MEDS: GABAPENTIN 300 MG CAP PO ×3 (08:43→20:47)
[2017-05-23] MEDS: PRAVASTATIN 20 MG TAB PO (08:43)
[2017-05-23] MEDS: predniSONE 10 MG TAB PO (08:43)
[2017-05-23] MEDS: CYANOCOBALAMIN 500 MCG TAB PO (08:43)
[2017-05-23] MEDS: MULTIVITAMINS/MINERALS THERAP 1 TAB PO (08:43)
[2017-05-23 09:38] LABS: IMMEDIATE SPIN CROSSMATCH 1 2
[2017-05-23] MEDS: ONDANSETRON 4MG/2ML VIAL (J2405) IV (11:36)
[2017-05-23 12:02] LABS: BEDSIDE GLUCOSE 148 MG/DL (80-115)
[2017-05-23] MEDS: HYDROCORTISONE 100 MG/2 ML VIAL (J1720) IV ×2 (14:08→20:46)
[2017-05-23 16:05] LABS: BEDSIDE GLUCOSE 175 MG/DL (80-115)
[2017-05-23 16:55] LABS: BEDSIDE GLUCOSE 179 MG/DL (80-115)
[2017-05-23 18:01] LABS: HEMATOCRIT 28.5 % (42.0-52.0); HEMOGLOBIN 9.3 g/dl (13.5-17.5)
[2017-05-23] MEDS: SERTRALINE HCL 25 MG TABLET PO (20:48)
[2017-05-23 20:55] LABS: BEDSIDE GLUCOSE 189 MG/DL (80-115)
[2017-05-23 22:04] LABS: HEMOGLOBIN 9.1 g/dl (13.5-17.5)
[2017-05-24] MEDS: IPRATROPIUM 0.5MG/ALBUTEROL 2.5MG INH SOL UD 3ML (DUONEB)(J7620) NEB ×5 (01:51→20:00)
[2017-05-24] MEDS: HYDROCORTISONE 100 MG/2 ML VIAL (J1720) IV (03:41)
[2017-05-24] MEDS: PANTOPRAZOLE SODIUM 40 MG in D5W 50 ML IV (03:41)
[2017-05-24 04:18] LABS: HEMATOCRIT 26.9 % (42.0-52.0); HEMOGLOBIN 8.8 g/dl (13.5-17.5); MEAN CORPUSCULAR HEMOGLOBIN 32.2 pg (27.0-33.0); MEAN CORPUSCULAR HGB CONC 32.7 g/dl (32.0-36.5); MEAN CORPUSCULAR VOLUME 98.5 fl (80.0-96.0); RED BLOOD COUNT 2.73 10^6/uL (4.30-6.10); RED CELL DISTRIBUTION WIDTH 16.3 % (11.5-14.5); WHITE BLOOD COUNT 3.2 10^3/uL (4.0-10.0)
[2017-05-24 04:19] LABS: PLATELET COUNT, AUTOMATED 77 10^3/uL (150-450)
[2017-05-24 04:44] LABS: ALBUMIN 2.6 GM/DL (3.2-5.2); ALBUMIN/GLOBULIN RATIO 0.81 (1.00-1.93); ALKALINE PHOSPHATASE 62 U/L (45-117); ALT/SGPT 40 U/L (12-78); ANION GAP 7 MEQ/L (8-16); AST/SGOT 25 U/L (7-37); BILIRUBIN,TOTAL 0.5 MG/DL (0.2-1.0); BLOOD UREA NITROGEN 17 MG/DL (7-18); CALCIUM LEVEL 7.8 MG/DL (8.8-10.2); CARBON DIOXIDE LEVEL 30 MEQ/L (21-32); CHLORIDE LEVEL 105 MEQ/L (98-107); CREATININE FOR GFR 1.27 MG/DL (0.70-1.30); GLOMERULAR FILTRATION RATE > 60.0 (>49); GLUCOSE, FASTING 144 MG/DL (70-100); MAGNESIUM LEVEL 1.9 MG/DL (1.8-2.4); POTASSIUM SERUM 4.3 MEQ/L (3.5-5.1); SODIUM LEVEL 142 MEQ/L (136-145); TOTAL PROTEIN 5.8 GM/DL (6.4-8.2)
[2017-05-24] MEDS ORDERED: GLUCAGON FOR INJ 1 MG VIAL (J1610) SC (05:00)
[2017-05-24] MEDS ORDERED: GLUCOSE 4 GM CHEW TABLET PO (05:00)
[2017-05-24] MEDS ORDERED: DEXTROSE 50% 50 ML SYRINGE IV (05:00)
[2017-05-24 07:22] LABS: IMMATURE PLATELET FRACTION % 2.9 % (0.0-10.9)
[2017-05-24 07:26] LABS: BEDSIDE GLUCOSE 156 MG/DL (80-115)
[2017-05-24] MEDS: HumaLOG INSULIN (NovoLOG) PER UNIT SC ×5 (07:49→20:36)
[2017-05-24] MEDS: ADVAIR HFA 230/21MCG INHALER INH ×2 (08:15→21:57)
[2017-05-24] MEDS: LEVEMIR (INSULIN DETEMIR) 1 UNITS/0.01ML SC ×2 (08:45→20:36)
[2017-05-24] MEDS: CYANOCOBALAMIN 500 MCG TAB PO (08:45)
[2017-05-24] MEDS: DIGOXIN 0.125 MG TAB PO (08:45)
[2017-05-24] MEDS: PRAVASTATIN 20 MG TAB PO (08:46)
[2017-05-24] MEDS: GABAPENTIN 300 MG CAP PO ×3 (08:46→20:35)
[2017-05-24] MEDS: rOPINIRole 1MG TAB PO ×2 (08:46→20:36)
[2017-05-24] MEDS: FERROUS SULFATE 325MG TAB PO (08:47)
[2017-05-24] MEDS: MULTIVITAMINS/MINERALS THERAP 1 TAB PO (08:47)
[2017-05-24] MEDS: LINEZOLID 600MG TABLET (ZYVOX) PO ×2 (08:47→20:36)
[2017-05-24] MEDS: ALLOPURINOL 300 MG TAB PO (08:48)
[2017-05-24] MEDS: MAGNESIUM OXIDE 400 MG TAB (MAG-OX) PO (08:48)
[2017-05-24] MEDS: PANTOPRAZOLE 40MG TAB (PROTONIX) PO ×2 (09:00→20:36)
[2017-05-24 09:29] LABS: BEDSIDE GLUCOSE 174 MG/DL (80-115)
[2017-05-24 11:47] LABS: BEDSIDE GLUCOSE 157 MG/DL (80-115)
[2017-05-24] MEDS: METOPROLOL TART 50 MG TAB PO ×3 (12:09→23:54)
[2017-05-24] MEDS: LACTOBACILLUS ACIDOPHILUS CAP (BACID) PO ×2 (14:48→20:35)
[2017-05-24 16:28] LABS: BEDSIDE GLUCOSE 162 MG/DL (80-115)
[2017-05-24 20:34] LABS: BEDSIDE GLUCOSE 150 MG/DL (80-115)
[2017-05-24] MEDS: predniSONE 20 MG TAB PO (20:34)
[2017-05-24] MEDS: SERTRALINE HCL 25 MG TABLET PO (20:36)
[2017-05-25] MEDS: IPRATROPIUM 0.5MG/ALBUTEROL 2.5MG INH SOL UD 3ML (DUONEB)(J7620) NEB ×5 (02:00→23:51)
[2017-05-25] MEDS: METOPROLOL TART 50 MG TAB PO ×4 (05:07→23:54)
[2017-05-25 05:52] LABS: HEMATOCRIT 27.6 % (42.0-52.0); MEAN CORPUSCULAR HEMOGLOBIN 32.8 pg (27.0-33.0); MEAN CORPUSCULAR HGB CONC 32.6 g/dl (32.0-36.5); MEAN CORPUSCULAR VOLUME 100.7 fl (80.0-96.0); RED BLOOD COUNT 2.74 10^6/uL (4.30-6.10); WHITE BLOOD COUNT 3.7 10^3/uL (4.0-10.0)
[2017-05-25 05:53] LABS: PLATELET COUNT, AUTOMATED 81 10^3/uL (150-450)
[2017-05-25 05:54] LABS: IMMATURE PLATELET FRACTION % 4.3 % (0.0-10.9)
[2017-05-25 06:14] LABS: ALBUMIN 2.6 GM/DL (3.2-5.2); ALBUMIN/GLOBULIN RATIO 0.87 (1.00-1.93); ALKALINE PHOSPHATASE 70 U/L (45-117); ALT/SGPT 43 U/L (12-78); ANION GAP 8 MEQ/L (8-16); AST/SGOT 29 U/L (7-37); BILIRUBIN,TOTAL 0.4 MG/DL (0.2-1.0); BLOOD UREA NITROGEN 24 MG/DL (7-18); CALCIUM LEVEL 7.8 MG/DL (8.8-10.2); CARBON DIOXIDE LEVEL 29 MEQ/L (21-32); CHLORIDE LEVEL 105 MEQ/L (98-107); CREATININE FOR GFR 1.66 MG/DL (0.70-1.30); GLOMERULAR FILTRATION RATE 44.6 (>49); GLUCOSE, FASTING 168 MG/DL (70-100); MAGNESIUM LEVEL 1.9 MG/DL (1.8-2.4); POTASSIUM SERUM 4.7 MEQ/L (3.5-5.1); SODIUM LEVEL 142 MEQ/L (136-145); TOTAL PROTEIN 5.6 GM/DL (6.4-8.2)
[2017-05-25] MEDS: LACTOBACILLUS ACIDOPHILUS CAP (BACID) PO ×2 (07:51→20:37)
[2017-05-25] MEDS: MAGNESIUM OXIDE 400 MG TAB (MAG-OX) PO (07:51)
[2017-05-25] MEDS: MULTIVITAMINS/MINERALS THERAP 1 TAB PO (07:52)
[2017-05-25] MEDS: ALLOPURINOL 300 MG TAB PO (07:52)
[2017-05-25] MEDS: PRAVASTATIN 20 MG TAB PO (07:52)
[2017-05-25] MEDS: GABAPENTIN 300 MG CAP PO ×3 (07:52→20:37)
[2017-05-25] MEDS: rOPINIRole 1MG TAB PO ×2 (07:52→20:36)
[2017-05-25] MEDS: LINEZOLID 600MG TABLET (ZYVOX) PO ×2 (07:52→20:37)
[2017-05-25] MEDS: CYANOCOBALAMIN 500 MCG TAB PO (07:52)
[2017-05-25] MEDS: PANTOPRAZOLE 40MG TAB (PROTONIX) PO ×2 (07:52→20:37)
[2017-05-25] MEDS: FERROUS SULFATE 325MG TAB PO (07:52)
[2017-05-25] MEDS: predniSONE 20 MG TAB PO ×2 (07:52→20:37)
[2017-05-25] MEDS: LEVEMIR (INSULIN DETEMIR) 1 UNITS/0.01ML SC ×2 (07:53→20:36)
[2017-05-25] MEDS: HumaLOG INSULIN (NovoLOG) PER UNIT SC ×4 (07:53→20:37)
[2017-05-25] MEDS: DIGOXIN 0.125 MG TAB PO (07:56)
[2017-05-25] MEDS: ADVAIR HFA 230/21MCG INHALER INH ×2 (08:07→21:06)
[2017-05-25 11:42] LABS: BEDSIDE GLUCOSE 159 MG/DL (80-115)
[2017-05-25 16:39] LABS: BEDSIDE GLUCOSE 223 MG/DL (80-115)
[2017-05-25] MEDS: LOPERAMIDE 2 MG CAP PO ×2 (17:54→22:49)
[2017-05-25 20:17] LABS: BEDSIDE GLUCOSE 212 MG/DL (80-115)
[2017-05-25] MEDS: SERTRALINE HCL 25 MG TABLET PO (20:37)
[2017-05-26] MEDS: METOPROLOL TART 50 MG TAB PO ×4 (05:44→23:38)
[2017-05-26 06:28] LABS: HEMATOCRIT 26.7 % (42.0-52.0); HEMOGLOBIN 8.6 g/dl (13.5-17.5); MEAN CORPUSCULAR HEMOGLOBIN 32.2 pg (27.0-33.0); MEAN CORPUSCULAR HGB CONC 32.2 g/dl (32.0-36.5); RED BLOOD COUNT 2.67 10^6/uL (4.30-6.10); RED CELL DISTRIBUTION WIDTH 15.5 % (11.5-14.5); WHITE BLOOD COUNT 4.5 10^3/uL (4.0-10.0)
[2017-05-26 06:30] LABS: PLATELET COUNT, AUTOMATED 87 10^3/uL (150-450)
[2017-05-26 06:31] LABS: IMMATURE PLATELET FRACTION % 4.8 % (0.0-10.9); PLATELET F 85
[2017-05-26 06:45] LABS: ALBUMIN 2.6 GM/DL (3.2-5.2); ALBUMIN/GLOBULIN RATIO 0.84 (1.00-1.93); ALKALINE PHOSPHATASE 86 U/L (45-117); ALT/SGPT 65 U/L (12-78); ANION GAP 8 MEQ/L (8-16); AST/SGOT 60 U/L (7-37); BILIRUBIN,TOTAL 0.3 MG/DL (0.2-1.0); BLOOD UREA NITROGEN 29 MG/DL (7-18); CALCIUM LEVEL 8.1 MG/DL (8.8-10.2); CARBON DIOXIDE LEVEL 26 MEQ/L (21-32); CHLORIDE LEVEL 107 MEQ/L (98-107); CREATININE FOR GFR 1.41 MG/DL (0.70-1.30); GLOMERULAR FILTRATION RATE 53.9 (>49); GLUCOSE, FASTING 180 MG/DL (70-100); MAGNESIUM LEVEL 1.9 MG/DL (1.8-2.4); POTASSIUM SERUM 4.5 MEQ/L (3.5-5.1); SODIUM LEVEL 141 MEQ/L (136-145); TOTAL PROTEIN 5.7 GM/DL (6.4-8.2)
[2017-05-26] MEDS: IPRATROPIUM 0.5MG/ALBUTEROL 2.5MG INH SOL UD 3ML (DUONEB)(J7620) NEB ×3 (07:31→22:09)
[2017-05-26] MEDS: ADVAIR HFA 230/21MCG INHALER INH ×2 (07:32→21:00)
[2017-05-26] MEDS: PANTOPRAZOLE 40MG TAB (PROTONIX) PO ×2 (07:46→20:14)
[2017-05-26] MEDS: HumaLOG INSULIN (NovoLOG) PER UNIT SC ×4 (07:47→21:00)
[2017-05-26] MEDS: LINEZOLID 600MG TABLET (ZYVOX) PO ×2 (07:47→20:14)
[2017-05-26] MEDS: MAGNESIUM OXIDE 400 MG TAB (MAG-OX) PO (07:47)
[2017-05-26] MEDS: PRAVASTATIN 20 MG TAB PO (07:47)
[2017-05-26] MEDS: LOPERAMIDE 2 MG CAP PO (07:47)
[2017-05-26] MEDS: DIGOXIN 0.125 MG TAB PO (07:47)
[2017-05-26] MEDS: LACTOBACILLUS ACIDOPHILUS CAP (BACID) PO ×2 (07:47→20:15)
[2017-05-26] MEDS: CYANOCOBALAMIN 500 MCG TAB PO (07:47)
[2017-05-26] MEDS: FERROUS SULFATE 325MG TAB PO (07:48)
[2017-05-26] MEDS: GABAPENTIN 300 MG CAP PO ×3 (07:48→20:14)
[2017-05-26] MEDS: ALLOPURINOL 300 MG TAB PO (07:48)
[2017-05-26] MEDS: predniSONE 20 MG TAB PO ×2 (07:48→20:14)
[2017-05-26] MEDS: LEVEMIR (INSULIN DETEMIR) 1 UNITS/0.01ML SC ×2 (07:48→20:14)
[2017-05-26] MEDS: rOPINIRole 1MG TAB PO ×2 (07:48→20:15)
[2017-05-26] MEDS: MULTIVITAMINS/MINERALS THERAP 1 TAB PO (07:48)
[2017-05-26] MEDS: EUCERIN 120GM CREAM EXT (09:00)
[2017-05-26 11:02] LABS: C REACTIVE PROTEIN QUANTITATIV 2.86 MG/DL (0.00-0.30)
[2017-05-26 11:54] LABS: BEDSIDE GLUCOSE 203 MG/DL (80-115)
[2017-05-26 17:21] LABS: BEDSIDE GLUCOSE 192 MG/DL (80-115)
[2017-05-26] MEDS: SERTRALINE HCL 25 MG TABLET PO (20:14)
[2017-05-26 22:15] LABS: BEDSIDE GLUCOSE 225 MG/DL (80-115)
[2017-05-27] MEDS: IPRATROPIUM 0.5MG/ALBUTEROL 2.5MG INH SOL UD 3ML (DUONEB)(J7620) NEB ×5 (04:17→20:00)
[2017-05-27] MEDS: LOPERAMIDE 2 MG CAP PO (04:40)
[2017-05-27] MEDS: METOPROLOL TART 50 MG TAB PO ×3 (05:19→17:48)
[2017-05-27 07:09] LABS: HEMATOCRIT 27.8 % (42.0-52.0); MEAN CORPUSCULAR HEMOGLOBIN 32.4 pg (27.0-33.0); MEAN CORPUSCULAR HGB CONC 32.4 g/dl (32.0-36.5); RED BLOOD COUNT 2.78 10^6/uL (4.30-6.10); RED CELL DISTRIBUTION WIDTH 15.4 % (11.5-14.5); WHITE BLOOD COUNT 4.5 10^3/uL (4.0-10.0)
[2017-05-27 07:10] LABS: PLATELET COUNT, AUTOMATED 82 10^3/uL (150-450)
[2017-05-27 07:11] LABS: IMMATURE PLATELET FRACTION % 4.9 % (0.0-10.9); PLATELET F 88
[2017-05-27 07:30] LABS: ALBUMIN 2.9 GM/DL (3.2-5.2); ALBUMIN/GLOBULIN RATIO 0.94 (1.00-1.93); ALKALINE PHOSPHATASE 78 U/L (45-117); ALT/SGPT 109 U/L (12-78); ANION GAP 8 MEQ/L (8-16); AST/SGOT 92 U/L (7-37); BILIRUBIN,TOTAL 0.4 MG/DL (0.2-1.0); BLOOD UREA NITROGEN 32 MG/DL (7-18); CALCIUM LEVEL 8.4 MG/DL (8.8-10.2); CARBON DIOXIDE LEVEL 27 MEQ/L (21-32); CHLORIDE LEVEL 106 MEQ/L (98-107); CREATININE FOR GFR 1.38 MG/DL (0.70-1.30); GLOMERULAR FILTRATION RATE 55.2 (>49); GLUCOSE, FASTING 175 MG/DL (70-100); MAGNESIUM LEVEL 1.8 MG/DL (1.8-2.4); POTASSIUM SERUM 4.5 MEQ/L (3.5-5.1); SODIUM LEVEL 141 MEQ/L (136-145)
[2017-05-27] MEDS: CYANOCOBALAMIN 500 MCG TAB PO (07:44)
[2017-05-27] MEDS: LINEZOLID 600MG TABLET (ZYVOX) PO ×2 (07:44→20:00)
[2017-05-27] MEDS: PRAVASTATIN 20 MG TAB PO (07:44)
[2017-05-27] MEDS: LEVEMIR (INSULIN DETEMIR) 1 UNITS/0.01ML SC ×2 (07:44→20:01)
[2017-05-27] MEDS: EUCERIN 120GM CREAM EXT (07:44)
[2017-05-27] MEDS: PANTOPRAZOLE 40MG TAB (PROTONIX) PO ×2 (07:44→20:00)
[2017-05-27] MEDS: HumaLOG INSULIN (NovoLOG) PER UNIT SC ×4 (07:44→19:59)
[2017-05-27] MEDS: MULTIVITAMINS/MINERALS THERAP 1 TAB PO (07:45)
[2017-05-27] MEDS: predniSONE 20 MG TAB PO (07:45)
[2017-05-27] MEDS: GABAPENTIN 300 MG CAP PO ×3 (07:45→20:00)
[2017-05-27] MEDS: DIGOXIN 0.125 MG TAB PO (07:45)
[2017-05-27] MEDS: LACTOBACILLUS ACIDOPHILUS CAP (BACID) PO ×2 (07:45→20:00)
[2017-05-27] MEDS: FERROUS SULFATE 325MG TAB PO (07:45)
[2017-05-27] MEDS: ALLOPURINOL 300 MG TAB PO (07:45)
[2017-05-27] MEDS: rOPINIRole 1MG TAB PO ×2 (07:45→20:00)
[2017-05-27] MEDS: ADVAIR HFA 230/21MCG INHALER INH ×2 (07:58→20:43)
[2017-05-27 08:43] LABS: RETIC HEMOGLOBIN EQUIVALENT 36.7 pg (24-36); RETICULOCYTE # 8.5 10^9/L (17-77); RETICULOCYTE % 0.3 % (0.5-1.5); SLIDE REVIEW Report; SOURCE PERIPHERAL SMEAR
[2017-05-27 12:12] LABS: BEDSIDE GLUCOSE 263 MG/DL (80-115)
[2017-05-27] MEDS: NITROGLYCERIN 0.3 MG SUBL TAB SL (15:01)
[2017-05-27 15:28] LABS: HEMATOCRIT 26.1 % (42.0-52.0); HEMOGLOBIN 8.4 g/dl (13.5-17.5); MEAN CORPUSCULAR HEMOGLOBIN 32.4 pg (27.0-33.0); MEAN CORPUSCULAR HGB CONC 32.2 g/dl (32.0-36.5); MEAN CORPUSCULAR VOLUME 100.8 fl (80.0-96.0); RED BLOOD COUNT 2.59 10^6/uL (4.30-6.10); RED CELL DISTRIBUTION WIDTH 15.4 % (11.5-14.5); WHITE BLOOD COUNT 4.4 10^3/uL (4.0-10.0)
[2017-05-27 15:34] LABS: PLATELET COUNT, AUTOMATED 75 10^3/uL (150-450)
[2017-05-27] MEDS: ASPIRIN 81 MG CHEW TABLET PO (15:38)
[2017-05-27] MEDS: FUROSEMIDE 20 MG/2 ML VIAL (J1940) IV (15:38)
[2017-05-27] MEDS: NITROGLYCERIN 2% OINT 1 GM *U/D* PKT TOP (15:41)
[2017-05-27 16:03] LABS: ANION GAP 9 MEQ/L (8-16); BLOOD UREA NITROGEN 36 MG/DL (7-18); CALCIUM LEVEL 8.4 MG/DL (8.8-10.2); CARBON DIOXIDE LEVEL 27 MEQ/L (21-32); CHLORIDE LEVEL 104 MEQ/L (98-107); CK-MB VALUE MASS 1.9 NG/ML (<3.6); CPK CREATINE PHOSPHOKINASE 22 U/L (39-308); GLOMERULAR FILTRATION RATE 59.2 (>49); GLUCOSE, FASTING 160 MG/DL (70-100); MB/CK RELATIVE INDEX 8.63 (< OR =4); POTASSIUM SERUM 4.5 MEQ/L (3.5-5.1); SODIUM LEVEL 140 MEQ/L (136-145); TROPONIN I 0.04 NG/ML (< 0.10)
[2017-05-27 17:22] LABS: BEDSIDE GLUCOSE 191 MG/DL (80-115)
[2017-05-27] MEDS: NYSTATIN 500,000 U/5 ML SUSP UDC SS (17:48)
[2017-05-27] MEDS: SERTRALINE HCL 25 MG TABLET PO (20:00)
[2017-05-27 20:01] LABS: BEDSIDE GLUCOSE 201 MG/DL (80-115)
[2017-05-27 21:48] LABS: CPK CREATINE PHOSPHOKINASE 25 U/L (39-308); TROPONIN I 0.04 NG/ML (< 0.10)
[2017-05-28] MEDS: NYSTATIN 500,000 U/5 ML SUSP UDC SS ×4 (00:10→17:16)
[2017-05-28] MEDS: METOPROLOL TART 50 MG TAB PO ×4 (00:11→17:15)
[2017-05-28] MEDS: IPRATROPIUM 0.5MG/ALBUTEROL 2.5MG INH SOL UD 3ML (DUONEB)(J7620) NEB ×7 (04:00→23:03)
[2017-05-28] MEDS: HumaLOG INSULIN (NovoLOG) PER UNIT SC ×4 (07:30→20:05)
[2017-05-28] MEDS: ADVAIR HFA 230/21MCG INHALER INH ×2 (07:34→20:15)
[2017-05-28 07:42] LABS: HEMATOCRIT 25.9 % (42.0-52.0); HEMOGLOBIN 8.4 g/dl (13.5-17.5); MEAN CORPUSCULAR HEMOGLOBIN 32.3 pg (27.0-33.0); MEAN CORPUSCULAR HGB CONC 32.4 g/dl (32.0-36.5); MEAN CORPUSCULAR VOLUME 99.6 fl (80.0-96.0); RED CELL DISTRIBUTION WIDTH 15.2 % (11.5-14.5); WHITE BLOOD COUNT 3.4 10^3/uL (4.0-10.0)
[2017-05-28 07:49] LABS: PLATELET COUNT, AUTOMATED 70 10^3/uL (150-450)
[2017-05-28 07:50] LABS: IMMATURE PLATELET FRACTION % 4.1 % (0.0-10.9); PLATELET F 72
[2017-05-28 08:07] LABS: ALBUMIN 2.7 GM/DL (3.2-5.2); ALKALINE PHOSPHATASE 68 U/L (45-117); ALT/SGPT 110 U/L (12-78); ANION GAP 5 MEQ/L (8-16); AST/SGOT 80 U/L (7-37); BILIRUBIN,TOTAL 0.3 MG/DL (0.2-1.0); BLOOD UREA NITROGEN 34 MG/DL (7-18); CALCIUM LEVEL 8.3 MG/DL (8.8-10.2); CARBON DIOXIDE LEVEL 32 MEQ/L (21-32); CHLORIDE LEVEL 106 MEQ/L (98-107); CREATININE FOR GFR 1.25 MG/DL (0.70-1.30); GLOMERULAR FILTRATION RATE > 60.0 (>49); GLUCOSE, FASTING 94 MG/DL (70-100); MAGNESIUM LEVEL 1.7 MG/DL (1.8-2.4); POTASSIUM SERUM 3.7 MEQ/L (3.5-5.1); SODIUM LEVEL 143 MEQ/L (136-145); TOTAL PROTEIN 5.4 GM/DL (6.4-8.2)
[2017-05-28] MEDS: PANTOPRAZOLE 40MG TAB (PROTONIX) PO ×2 (08:18→20:03)
[2017-05-28] MEDS: GABAPENTIN 300 MG CAP PO ×3 (08:18→20:04)
[2017-05-28] MEDS: rOPINIRole 1MG TAB PO ×2 (08:18→20:03)
[2017-05-28] MEDS: ALLOPURINOL 300 MG TAB PO (08:18)
[2017-05-28] MEDS: DIGOXIN 0.125 MG TAB PO (08:18)
[2017-05-28] MEDS: MULTIVITAMINS/MINERALS THERAP 1 TAB PO (08:18)
[2017-05-28] MEDS: CYANOCOBALAMIN 500 MCG TAB PO (08:18)
[2017-05-28] MEDS: PRAVASTATIN 20 MG TAB PO (08:18)
[2017-05-28] MEDS: LINEZOLID 600MG TABLET (ZYVOX) PO ×2 (08:18→20:03)
[2017-05-28] MEDS: FERROUS SULFATE 325MG TAB PO (08:18)
[2017-05-28] MEDS: LACTOBACILLUS ACIDOPHILUS CAP (BACID) PO ×2 (08:18→20:03)
[2017-05-28] MEDS: predniSONE 20 MG TAB PO (08:19)
[2017-05-28] MEDS: EUCERIN 120GM CREAM EXT (08:19)
[2017-05-28] MEDS: LEVEMIR (INSULIN DETEMIR) 1 UNITS/0.01ML SC ×2 (08:19→20:04)
[2017-05-28] MEDS: MAG SULF 1GM/100ML (MAG RUN) 1 GM in APPROPRIATE DILUENT 1 EA IV (08:30)
[2017-05-28] MEDS: POTASSIUM CHLORIDE 10 MEQ SR TABLET PO (10:06)
[2017-05-28] MEDS: MAGNESIUM OXIDE 400 MG TAB (MAG-OX) PO (10:08)
[2017-05-28] MEDS ORDERED: FUROSEMIDE 40 MG/4 ML VIAL (J1940) IV (10:15)
[2017-05-28] MEDS: FUROSEMIDE 40 MG TAB PO (10:27)
[2017-05-28] MEDS: LOPERAMIDE 2 MG CAP PO (11:34)
[2017-05-28 11:44] LABS: BEDSIDE GLUCOSE 155 MG/DL (80-115)
[2017-05-28 13:29] LABS: CK-MB VALUE MASS 2.2 NG/ML (<3.6); CPK CREATINE PHOSPHOKINASE 24 U/L (39-308); MB/CK RELATIVE INDEX 9.16 (< OR =4); TROPONIN I 0.05 NG/ML (< 0.10)
[2017-05-28] MEDS: TORSEMIDE 5MG TABLET PO (13:48)
[2017-05-28] MEDS: ISOSORBIDE MON. (IMDUR) 30 MG XR TAB PO (13:49)
[2017-05-28 18:08] LABS: BEDSIDE GLUCOSE 187 MG/DL (80-115)
[2017-05-28 19:57] LABS: CPK CREATINE PHOSPHOKINASE 28 U/L (39-308); TROPONIN I 0.05 NG/ML (< 0.10)
[2017-05-28 19:58] LABS: CK-MB VALUE MASS 2.5 NG/ML (<3.6); MB/CK RELATIVE INDEX 8.92 (< OR =4)
[2017-05-28] MEDS: SERTRALINE HCL 25 MG TABLET PO (20:04)
[2017-05-28 20:18] LABS: BEDSIDE GLUCOSE 150 MG/DL (80-115)
[2017-05-29] MEDS: IPRATROPIUM 0.5MG/ALBUTEROL 2.5MG INH SOL UD 3ML (DUONEB)(J7620) NEB ×6 (04:00→23:44)
[2017-05-29] MEDS: NYSTATIN 500,000 U/5 ML SUSP UDC SS ×4 (05:32→17:53)
[2017-05-29] MEDS: METOPROLOL TART 50 MG TAB PO ×2 (05:32)
[2017-05-29 05:55] LABS: HEMATOCRIT 25.4 % (42.0-52.0); HEMOGLOBIN 8.4 g/dl (13.5-17.5); MEAN CORPUSCULAR HEMOGLOBIN 32.6 pg (27.0-33.0); MEAN CORPUSCULAR HGB CONC 33.1 g/dl (32.0-36.5); MEAN CORPUSCULAR VOLUME 98.4 fl (80.0-96.0); PLATELET COUNT, AUTOMATED 81 10^3/uL (150-450); RED BLOOD COUNT 2.58 10^6/uL (4.30-6.10); RED CELL DISTRIBUTION WIDTH 15.2 % (11.5-14.5)
[2017-05-29 06:07] LABS: ESTIMATED AVERAGE GLUCOSE 206 MG/DL (60-110); HEMOGLOBIN A1c 8.8 %
[2017-05-29 06:22] LABS: ALBUMIN 2.8 GM/DL (3.2-5.2); ALKALINE PHOSPHATASE 73 U/L (45-117); ALT/SGPT 120 U/L (12-78); ANION GAP 8 MEQ/L (8-16); AST/SGOT 78 U/L (7-37); BILIRUBIN,TOTAL 0.4 MG/DL (0.2-1.0); BLOOD UREA NITROGEN 35 MG/DL (7-18); CALCIUM LEVEL 8.4 MG/DL (8.8-10.2); CARBON DIOXIDE LEVEL 34 MEQ/L (21-32); CHLORIDE LEVEL 99 MEQ/L (98-107); CREATININE FOR GFR 1.36 MG/DL (0.70-1.30); GLOMERULAR FILTRATION RATE 56.2 (>49); GLUCOSE, FASTING 104 MG/DL (70-100); POTASSIUM SERUM 3.8 MEQ/L (3.5-5.1); SODIUM LEVEL 141 MEQ/L (136-145); TOTAL PROTEIN 5.6 GM/DL (6.4-8.2)
[2017-05-29] MEDS: HumaLOG INSULIN (NovoLOG) PER UNIT SC ×4 (07:30→21:00)
[2017-05-29] MEDS: ADVAIR HFA 230/21MCG INHALER INH ×2 (07:53→19:52)
[2017-05-29] MEDS: PRAVASTATIN 20 MG TAB PO (08:42)
[2017-05-29] MEDS: LACTOBACILLUS ACIDOPHILUS CAP (BACID) PO ×2 (08:42→21:26)
[2017-05-29] MEDS: PANTOPRAZOLE 40MG TAB (PROTONIX) PO ×2 (08:42→21:25)
[2017-05-29] MEDS: rOPINIRole 1MG TAB PO ×2 (08:42→21:25)
[2017-05-29] MEDS: ALLOPURINOL 300 MG TAB PO (08:42)
[2017-05-29] MEDS: GABAPENTIN 300 MG CAP PO ×3 (08:42→21:25)
[2017-05-29] MEDS: FERROUS SULFATE 325MG TAB PO (08:42)
[2017-05-29] MEDS: predniSONE 20 MG TAB PO (08:42)
[2017-05-29] MEDS: MULTIVITAMINS/MINERALS THERAP 1 TAB PO (08:42)
[2017-05-29] MEDS: ATENOLOL 12.5MG PER 1/2 TABLET PO (08:43)
[2017-05-29] MEDS: ISOSORBIDE MON. (IMDUR) 30 MG XR TAB PO (08:43)
[2017-05-29] MEDS: LINEZOLID 600MG TABLET (ZYVOX) PO (08:43)
[2017-05-29] MEDS: DIGOXIN 0.125 MG TAB PO (08:44)
[2017-05-29] MEDS: CYANOCOBALAMIN 500 MCG TAB PO (08:44)
[2017-05-29] MEDS: EUCERIN 120GM CREAM EXT (08:44)
[2017-05-29] MEDS: LOPERAMIDE 2 MG CAP PO ×2 (08:44→13:55)
[2017-05-29] MEDS: TORSEMIDE 5MG TABLET PO (08:45)
[2017-05-29] MEDS: LEVEMIR (INSULIN DETEMIR) 1 UNITS/0.01ML SC ×2 (08:45→21:27)
[2017-05-29] MEDS ORDERED: ISOSORBIDE MON. (ISMO,MONOKET) 20 MG TAB PO (09:00)
[2017-05-29 12:35] LABS: IMMUNOGLOBULIN G 569 MG/DL (681-1648)
[2017-05-29 13:00] LABS: BEDSIDE GLUCOSE 206 MG/DL (80-115)
[2017-05-29 17:40] LABS: BEDSIDE GLUCOSE 211 MG/DL (80-115)
[2017-05-29] MEDS: LevoFLOXacin 500 MG TABLET PO (17:53)
[2017-05-29 21:22] LABS: BEDSIDE GLUCOSE 189 MG/DL (80-115)
[2017-05-29] MEDS: SERTRALINE HCL 25 MG TABLET PO (21:26)
[2017-05-30] MEDS: IPRATROPIUM 0.5MG/ALBUTEROL 2.5MG INH SOL UD 3ML (DUONEB)(J7620) NEB ×5 (04:00→19:35)
[2017-05-30] MEDS: NYSTATIN 500,000 U/5 ML SUSP UDC SS ×4 (05:54→17:13)
[2017-05-30] MEDS: LevoFLOXacin 500 MG TABLET PO (05:54)
[2017-05-30] MEDS: ADVAIR HFA 230/21MCG INHALER INH ×2 (07:21→19:35)
[2017-05-30] MEDS: HumaLOG INSULIN (NovoLOG) PER UNIT SC ×4 (07:30→21:00)
[2017-05-30 07:55] LABS: BEDSIDE GLUCOSE 125 MG/DL (80-115)
[2017-05-30] MEDS: MULTIVITAMINS/MINERALS THERAP 1 TAB PO (07:57)
[2017-05-30] MEDS: TORSEMIDE 5MG TABLET PO ×2 (07:57→13:49)
[2017-05-30] MEDS: rOPINIRole 1MG TAB PO ×2 (07:57→20:51)
[2017-05-30] MEDS: FERROUS SULFATE 325MG TAB PO (07:57)
[2017-05-30] MEDS: GABAPENTIN 300 MG CAP PO ×3 (07:57→20:51)
[2017-05-30] MEDS: ISOSORBIDE MON. (IMDUR) 30 MG XR TAB PO (07:57)
[2017-05-30] MEDS: ATENOLOL 12.5MG PER 1/2 TABLET PO (07:57)
[2017-05-30] MEDS: PANTOPRAZOLE 40MG TAB (PROTONIX) PO ×2 (07:57→20:52)
[2017-05-30] MEDS: LACTOBACILLUS ACIDOPHILUS CAP (BACID) PO ×2 (07:58→20:52)
[2017-05-30] MEDS: PRAVASTATIN 20 MG TAB PO (07:58)
[2017-05-30] MEDS: predniSONE 20 MG TAB PO (07:58)
[2017-05-30] MEDS: ALLOPURINOL 300 MG TAB PO (07:58)
[2017-05-30] MEDS: CYANOCOBALAMIN 500 MCG TAB PO (07:58)
[2017-05-30] MEDS: DIGOXIN 0.125 MG TAB PO (07:58)
[2017-05-30] MEDS: EUCERIN 120GM CREAM EXT (07:59)
[2017-05-30] MEDS: LEVEMIR (INSULIN DETEMIR) 1 UNITS/0.01ML SC ×2 (07:59→20:53)
[2017-05-30] MEDS: LOPERAMIDE 2 MG CAP PO ×2 (11:44→15:33)
[2017-05-30 12:12] LABS: BEDSIDE GLUCOSE 182 MG/DL (80-115)
[2017-05-30 13:45] LABS: HEMATOCRIT 26.5 % (42.0-52.0); HEMOGLOBIN 8.6 g/dl (13.5-17.5); MEAN CORPUSCULAR HEMOGLOBIN 32.2 pg (27.0-33.0); MEAN CORPUSCULAR HGB CONC 32.5 g/dl (32.0-36.5); MEAN CORPUSCULAR VOLUME 99.3 fl (80.0-96.0); RED BLOOD COUNT 2.67 10^6/uL (4.30-6.10); RED CELL DISTRIBUTION WIDTH 15.4 % (11.5-14.5)
[2017-05-30] MEDS: GI COCKTAIL 50ML BTL(HYOSCYAMINE/MAALOX/LIDOCAINE VISCOUS)(1:3:1) PO (13:48)
[2017-05-30] MEDS: APIXABAN 5 MG TAB (ELIQUIS) PO ×2 (13:51→20:52)
[2017-05-30 14:01] LABS: IMMATURE PLATELET FRACTION % 5.8 % (0.0-10.9); PLATELET COUNT, AUTOMATED 87 10^3/uL (150-450)
[2017-05-30 14:10] LABS: ANION GAP 12 MEQ/L (8-16); BLOOD UREA NITROGEN 33 MG/DL (7-18); CALCIUM LEVEL 8.3 MG/DL (8.8-10.2); CARBON DIOXIDE LEVEL 30 MEQ/L (21-32); CHLORIDE LEVEL 99 MEQ/L (98-107); CREATININE FOR GFR 1.43 MG/DL (0.70-1.30); GLUCOSE, FASTING 211 MG/DL (70-100); POTASSIUM SERUM 4.1 MEQ/L (3.5-5.1); SODIUM LEVEL 141 MEQ/L (136-145)
[2017-05-30 15:10] LABS: HEPARIN INDUCED PLATELET ABY 0.368 OD (0.000-0.400)
[2017-05-30] MEDS: SERTRALINE HCL 25 MG TABLET PO (20:52)
[2017-05-31] MEDS: IPRATROPIUM 0.5MG/ALBUTEROL 2.5MG INH SOL UD 3ML (DUONEB)(J7620) NEB ×7 (04:00→23:43)
[2017-05-31] MEDS: NYSTATIN 500,000 U/5 ML SUSP UDC SS ×4 (05:55→17:43)
[2017-05-31] MEDS: LevoFLOXacin 500 MG TABLET PO (05:55)
[2017-05-31 06:41] LABS: BEDSIDE GLUCOSE 105 MG/DL (80-115)
[2017-05-31] MEDS: ADVAIR HFA 230/21MCG INHALER INH ×2 (07:27→20:15)
[2017-05-31] MEDS: HumaLOG INSULIN (NovoLOG) PER UNIT SC ×4 (07:30→20:36)
[2017-05-31] MEDS: FERROUS SULFATE 325MG TAB PO (08:08)
[2017-05-31] MEDS: ALLOPURINOL 300 MG TAB PO (08:08)
[2017-05-31] MEDS: APIXABAN 5 MG TAB (ELIQUIS) PO ×2 (08:08→21:06)
[2017-05-31] MEDS: ISOSORBIDE MON. (IMDUR) 30 MG XR TAB PO (08:08)
[2017-05-31] MEDS: CYANOCOBALAMIN 500 MCG TAB PO (08:08)
[2017-05-31] MEDS: LACTOBACILLUS ACIDOPHILUS CAP (BACID) PO ×2 (08:08→21:07)
[2017-05-31] MEDS: TORSEMIDE 10 MG TABLET PO (08:08)
[2017-05-31] MEDS: PRAVASTATIN 20 MG TAB PO (08:08)
[2017-05-31] MEDS: MULTIVITAMINS/MINERALS THERAP 1 TAB PO (08:08)
[2017-05-31] MEDS: predniSONE 20 MG TAB PO (08:09)
[2017-05-31] MEDS: ATENOLOL 12.5MG PER 1/2 TABLET PO (08:09)
[2017-05-31] MEDS: GABAPENTIN 300 MG CAP PO ×3 (08:09→21:06)
[2017-05-31] MEDS: DIGOXIN 0.125 MG TAB PO (08:09)
[2017-05-31] MEDS: PANTOPRAZOLE 40MG TAB (PROTONIX) PO ×2 (08:09→21:06)
[2017-05-31] MEDS: LEVEMIR (INSULIN DETEMIR) 1 UNITS/0.01ML SC ×2 (08:10→21:07)
[2017-05-31] MEDS: EUCERIN 120GM CREAM EXT (08:11)
[2017-05-31] MEDS: rOPINIRole 1MG TAB PO ×2 (08:12→21:06)
[2017-05-31 11:56] LABS: BEDSIDE GLUCOSE 145 MG/DL (80-115)
[2017-05-31] MEDS: LOPERAMIDE 2 MG CAP PO (15:43)
[2017-05-31 16:36] LABS: BEDSIDE GLUCOSE 247 MG/DL (80-115)
[2017-05-31 20:39] LABS: BEDSIDE GLUCOSE 211 MG/DL (80-115)
[2017-05-31] MEDS: SERTRALINE HCL 25 MG TABLET PO (21:06)
[2017-06-01] MEDS: NYSTATIN 500,000 U/5 ML SUSP UDC SS ×5 (00:13→23:12)
[2017-06-01] MEDS: IPRATROPIUM 0.5MG/ALBUTEROL 2.5MG INH SOL UD 3ML (DUONEB)(J7620) NEB ×6 (03:19→23:32)
[2017-06-01] MEDS: LevoFLOXacin 500 MG TABLET PO (05:24)
[2017-06-01 06:01] LABS: HEMATOCRIT 26.7 % (42.0-52.0); HEMOGLOBIN 8.8 g/dl (13.5-17.5); MEAN CORPUSCULAR HEMOGLOBIN 32.7 pg (27.0-33.0); MEAN CORPUSCULAR VOLUME 99.3 fl (80.0-96.0); PLATELET COUNT, AUTOMATED 102 10^3/uL (150-450); RED BLOOD COUNT 2.69 10^6/uL (4.30-6.10); RED CELL DISTRIBUTION WIDTH 15.5 % (11.5-14.5); WHITE BLOOD COUNT 4.3 10^3/uL (4.0-10.0)
[2017-06-01 06:19] LABS: ANION GAP 8 MEQ/L (8-16); BLOOD UREA NITROGEN 27 MG/DL (7-18); CALCIUM LEVEL 8.8 MG/DL (8.8-10.2); CARBON DIOXIDE LEVEL 35 MEQ/L (21-32); CHLORIDE LEVEL 101 MEQ/L (98-107); CREATININE FOR GFR 1.31 MG/DL (0.70-1.30); GLOMERULAR FILTRATION RATE 58.6 (>49); GLUCOSE, FASTING 121 MG/DL (70-100); POTASSIUM SERUM 3.7 MEQ/L (3.5-5.1); SODIUM LEVEL 144 MEQ/L (136-145)
[2017-06-01] MEDS: ADVAIR HFA 230/21MCG INHALER INH ×2 (08:53→20:12)
[2017-06-01] MEDS: ATENOLOL 12.5MG PER 1/2 TABLET PO (08:58)
[2017-06-01] MEDS: LACTOBACILLUS ACIDOPHILUS CAP (BACID) PO ×2 (08:59→21:30)
[2017-06-01] MEDS: APIXABAN 5 MG TAB (ELIQUIS) PO ×2 (08:59→21:30)
[2017-06-01] MEDS: MULTIVITAMINS/MINERALS THERAP 1 TAB PO (08:59)
[2017-06-01] MEDS: TORSEMIDE 10 MG TABLET PO (08:59)
[2017-06-01] MEDS: CYANOCOBALAMIN 500 MCG TAB PO (08:59)
[2017-06-01] MEDS: FERROUS SULFATE 325MG TAB PO (08:59)
[2017-06-01] MEDS: GABAPENTIN 300 MG CAP PO ×3 (08:59→21:31)
[2017-06-01] MEDS: predniSONE 20 MG TAB PO (08:59)
[2017-06-01] MEDS: ALLOPURINOL 300 MG TAB PO (08:59)
[2017-06-01] MEDS: rOPINIRole 1MG TAB PO ×2 (08:59→21:31)
[2017-06-01] MEDS: DIGOXIN 0.125 MG TAB PO (08:59)
[2017-06-01] MEDS: PANTOPRAZOLE 40MG TAB (PROTONIX) PO ×2 (08:59→21:30)
[2017-06-01] MEDS: PRAVASTATIN 20 MG TAB PO (08:59)
[2017-06-01] MEDS: EUCERIN 120GM CREAM EXT (09:00)
[2017-06-01] MEDS: LEVEMIR (INSULIN DETEMIR) 1 UNITS/0.01ML SC ×2 (09:00→21:31)
[2017-06-01] MEDS: ISOSORBIDE MON. (IMDUR) 30 MG XR TAB PO (09:00)
[2017-06-01] MEDS: HumaLOG INSULIN (NovoLOG) PER UNIT SC ×4 (09:00→20:21)
[2017-06-01 12:04] LABS: BEDSIDE GLUCOSE 151 MG/DL (80-115)
[2017-06-01 17:07] LABS: BEDSIDE GLUCOSE 286 MG/DL (80-115)
[2017-06-01 20:27] LABS: BEDSIDE GLUCOSE 214 MG/DL (80-115)
[2017-06-01] MEDS: SERTRALINE HCL 25 MG TABLET PO (21:30)
[2017-06-02] MEDS: IPRATROPIUM 0.5MG/ALBUTEROL 2.5MG INH SOL UD 3ML (DUONEB)(J7620) NEB ×5 (03:50→20:00)
[2017-06-02] MEDS: LevoFLOXacin 500 MG TABLET PO (06:10)
[2017-06-02] MEDS: NYSTATIN 500,000 U/5 ML SUSP UDC SS ×4 (06:10→23:52)
[2017-06-02 06:26] LABS: HEMATOCRIT 28.9 % (42.0-52.0); HEMOGLOBIN 9.2 g/dl (13.5-17.5); MEAN CORPUSCULAR HEMOGLOBIN 32.4 pg (27.0-33.0); MEAN CORPUSCULAR HGB CONC 31.8 g/dl (32.0-36.5); MEAN CORPUSCULAR VOLUME 101.8 fl (80.0-96.0); PLATELET COUNT, AUTOMATED 112 10^3/uL (150-450); RED BLOOD COUNT 2.84 10^6/uL (4.30-6.10); RED CELL DISTRIBUTION WIDTH 15.7 % (11.5-14.5); WHITE BLOOD COUNT 8.5 10^3/uL (4.0-10.0)
[2017-06-02 06:48] LABS: ALBUMIN/GLOBULIN RATIO 1.03 (1.00-1.93); ALKALINE PHOSPHATASE 120 U/L (45-117); ALT/SGPT 154 U/L (12-78); ANION GAP 5 MEQ/L (8-16); AST/SGOT 128 U/L (7-37); BILIRUBIN,DIRECT 0.1 MG/DL (0.0-0.2); BILIRUBIN,TOTAL 0.4 MG/DL (0.2-1.0); BLOOD UREA NITROGEN 22 MG/DL (7-18); CALCIUM LEVEL 8.6 MG/DL (8.8-10.2); CARBON DIOXIDE LEVEL 36 MEQ/L (21-32); CHLORIDE LEVEL 102 MEQ/L (98-107); CREATININE FOR GFR 1.39 MG/DL (0.70-1.30); GLOMERULAR FILTRATION RATE 54.8 (>49); GLUCOSE, FASTING 132 MG/DL (70-100); POTASSIUM SERUM 3.7 MEQ/L (3.5-5.1); SODIUM LEVEL 143 MEQ/L (136-145); TOTAL PROTEIN 5.9 GM/DL (6.4-8.2)
[2017-06-02] MEDS: HumaLOG INSULIN (NovoLOG) PER UNIT SC ×4 (07:24→20:11)
[2017-06-02] MEDS: ISOSORBIDE MON. (IMDUR) 30 MG XR TAB PO ×2 (07:25→18:45)
[2017-06-02] MEDS: ALLOPURINOL 300 MG TAB PO (07:25)
[2017-06-02] MEDS: MULTIVITAMINS/MINERALS THERAP 1 TAB PO (07:25)
[2017-06-02] MEDS: ATENOLOL 12.5MG PER 1/2 TABLET PO (07:25)
[2017-06-02] MEDS: FERROUS SULFATE 325MG TAB PO (07:25)
[2017-06-02] MEDS: GABAPENTIN 300 MG CAP PO ×3 (07:25→21:11)
[2017-06-02] MEDS: LACTOBACILLUS ACIDOPHILUS CAP (BACID) PO ×2 (07:25→21:11)
[2017-06-02] MEDS: PANTOPRAZOLE 40MG TAB (PROTONIX) PO ×2 (07:26→21:11)
[2017-06-02] MEDS: TORSEMIDE 10 MG TABLET PO (07:26)
[2017-06-02] MEDS: APIXABAN 5 MG TAB (ELIQUIS) PO ×2 (07:26→21:11)
[2017-06-02] MEDS: DIGOXIN 0.125 MG TAB PO (07:26)
[2017-06-02] MEDS: PRAVASTATIN 20 MG TAB PO (07:26)
[2017-06-02] MEDS: predniSONE 20 MG TAB PO (07:26)
[2017-06-02] MEDS: rOPINIRole 1MG TAB PO ×2 (07:26→21:11)
[2017-06-02] MEDS: CYANOCOBALAMIN 500 MCG TAB PO (07:26)
[2017-06-02] MEDS: LEVEMIR (INSULIN DETEMIR) 1 UNITS/0.01ML SC ×2 (07:27→21:11)
[2017-06-02] MEDS: EUCERIN 120GM CREAM EXT (07:27)
[2017-06-02] MEDS: ADVAIR HFA 230/21MCG INHALER INH ×2 (09:19→21:09)
[2017-06-02 11:43] LABS: BEDSIDE GLUCOSE 140 MG/DL (80-115)
[2017-06-02] MEDS: ACETAMINOPHEN TAB 650MG DOSE (2X325MG) PO ×2 (13:04→19:32)
[2017-06-02 17:15] LABS: BEDSIDE GLUCOSE 272 MG/DL (80-115)
[2017-06-02 19:45] LABS: CK-MB VALUE MASS 1.2 NG/ML (<3.6); CPK CREATINE PHOSPHOKINASE 20 U/L (39-308); TROPONIN I 0.06 NG/ML (< 0.10)
[2017-06-02] MEDS: SERTRALINE HCL 25 MG TABLET PO (21:10)
[2017-06-02 21:13] LABS: BEDSIDE GLUCOSE 200 MG/DL (80-115)
[2017-06-03] MEDS: IPRATROPIUM 0.5MG/ALBUTEROL 2.5MG INH SOL UD 3ML (DUONEB)(J7620) NEB ×7 (04:00→22:56)
[2017-06-03] MEDS: NYSTATIN 500,000 U/5 ML SUSP UDC SS ×3 (05:10→17:28)
[2017-06-03] MEDS: LevoFLOXacin 500 MG TABLET PO (05:10)
[2017-06-03] MEDS: ACETAMINOPHEN TAB 650MG DOSE (2X325MG) PO (05:11)
[2017-06-03 07:33] LABS: HEMATOCRIT 28.3 % (42.0-52.0); HEMOGLOBIN 8.9 g/dl (13.5-17.5); MEAN CORPUSCULAR HEMOGLOBIN 31.8 pg (27.0-33.0); MEAN CORPUSCULAR HGB CONC 31.4 g/dl (32.0-36.5); MEAN CORPUSCULAR VOLUME 101.1 fl (80.0-96.0); PLATELET COUNT, AUTOMATED 122 10^3/uL (150-450); RED CELL DISTRIBUTION WIDTH 15.9 % (11.5-14.5); WHITE BLOOD COUNT 12.7 10^3/uL (4.0-10.0)
[2017-06-03] MEDS: ADVAIR HFA 230/21MCG INHALER INH ×2 (07:43→21:21)
[2017-06-03 07:58] LABS: ANION GAP 7 MEQ/L (8-16); BLOOD UREA NITROGEN 17 MG/DL (7-18); CALCIUM LEVEL 8.5 MG/DL (8.8-10.2); CARBON DIOXIDE LEVEL 33 MEQ/L (21-32); CHLORIDE LEVEL 101 MEQ/L (98-107); CREATININE FOR GFR 1.29 MG/DL (0.70-1.30); GLOMERULAR FILTRATION RATE 59.7 (>49); GLUCOSE, FASTING 130 MG/DL (70-100); POTASSIUM SERUM 3.7 MEQ/L (3.5-5.1); SODIUM LEVEL 141 MEQ/L (136-145)
[2017-06-03] MEDS: LACTOBACILLUS ACIDOPHILUS CAP (BACID) PO ×2 (09:26→21:52)
[2017-06-03] MEDS: APIXABAN 5 MG TAB (ELIQUIS) PO ×2 (09:26→21:51)
[2017-06-03] MEDS: GABAPENTIN 300 MG CAP PO ×3 (09:26→21:52)
[2017-06-03] MEDS: CYANOCOBALAMIN 500 MCG TAB PO (09:26)
[2017-06-03] MEDS: FERROUS SULFATE 325MG TAB PO (09:26)
[2017-06-03] MEDS: ALLOPURINOL 300 MG TAB PO (09:26)
[2017-06-03] MEDS: TORSEMIDE 10 MG TABLET PO (09:26)
[2017-06-03] MEDS: MULTIVITAMINS/MINERALS THERAP 1 TAB PO (09:26)
[2017-06-03] MEDS: PRAVASTATIN 20 MG TAB PO (09:26)
[2017-06-03] MEDS: ISOSORBIDE MON. (IMDUR) 30 MG XR TAB PO (09:26)
[2017-06-03] MEDS: ATENOLOL 12.5MG PER 1/2 TABLET PO (09:27)
[2017-06-03] MEDS: PANTOPRAZOLE 40MG TAB (PROTONIX) PO ×2 (09:27→21:52)
[2017-06-03] MEDS: predniSONE 20 MG TAB PO (09:27)
[2017-06-03] MEDS: rOPINIRole 1MG TAB PO ×2 (09:27→21:53)
[2017-06-03] MEDS: DIGOXIN 0.125 MG TAB PO (09:27)
[2017-06-03] MEDS: EUCERIN 120GM CREAM EXT (09:28)
[2017-06-03] MEDS: LEVEMIR (INSULIN DETEMIR) 1 UNITS/0.01ML SC ×2 (09:28→21:53)
[2017-06-03] MEDS: HumaLOG INSULIN (NovoLOG) PER UNIT SC ×4 (09:28→21:00)
[2017-06-03 09:36] LABS: BEDSIDE GLUCOSE 222 MG/DL (80-115)
[2017-06-03 09:37] LABS: BEDSIDE GLUCOSE 187 MG/DL (80-115)
[2017-06-03 11:59] LABS: BEDSIDE GLUCOSE 175 MG/DL (80-115)
[2017-06-03 17:22] LABS: BEDSIDE GLUCOSE 290 MG/DL (80-115)
[2017-06-03 21:49] LABS: BEDSIDE GLUCOSE 195 MG/DL (80-115)
[2017-06-03] MEDS: SERTRALINE HCL 25 MG TABLET PO (21:52)
[2017-06-04] MEDS: NYSTATIN 500,000 U/5 ML SUSP UDC SS ×5 (00:08→23:12)
[2017-06-04] MEDS: IPRATROPIUM 0.5MG/ALBUTEROL 2.5MG INH SOL UD 3ML (DUONEB)(J7620) NEB ×6 (03:51→22:48)
[2017-06-04] MEDS: LevoFLOXacin 500 MG TABLET PO (05:41)
[2017-06-04 06:23] LABS: HEMATOCRIT 28.1 % (42.0-52.0); HEMOGLOBIN 8.9 g/dl (13.5-17.5); MEAN CORPUSCULAR HEMOGLOBIN 32.5 pg (27.0-33.0); MEAN CORPUSCULAR HGB CONC 31.7 g/dl (32.0-36.5); MEAN CORPUSCULAR VOLUME 102.6 fl (80.0-96.0); PLATELET COUNT, AUTOMATED 129 10^3/uL (150-450); RED BLOOD COUNT 2.74 10^6/uL (4.30-6.10); RED CELL DISTRIBUTION WIDTH 16.3 % (11.5-14.5); WHITE BLOOD COUNT 14.6 10^3/uL (4.0-10.0)
[2017-06-04 06:42] LABS: ANION GAP 7 MEQ/L (8-16); BLOOD UREA NITROGEN 17 MG/DL (7-18); CALCIUM LEVEL 8.2 MG/DL (8.8-10.2); CARBON DIOXIDE LEVEL 33 MEQ/L (21-32); CHLORIDE LEVEL 105 MEQ/L (98-107); CREATININE FOR GFR 1.58 MG/DL (0.70-1.30); GLOMERULAR FILTRATION RATE 47.2 (>49); GLUCOSE, FASTING 159 MG/DL (70-100); POTASSIUM SERUM 3.4 MEQ/L (3.5-5.1); SODIUM LEVEL 145 MEQ/L (136-145)
[2017-06-04] MEDS: ADVAIR HFA 230/21MCG INHALER INH ×2 (07:37→20:56)
[2017-06-04 08:17] LABS: ALBUMIN 2.9 GM/DL (3.2-5.2); ALKALINE PHOSPHATASE 134 U/L (45-117); ALT/SGPT 122 U/L (12-78); AST/SGOT 87 U/L (7-37); BILIRUBIN,DIRECT 0.2 MG/DL (0.0-0.2); BILIRUBIN,TOTAL 0.4 MG/DL (0.2-1.0); C REACTIVE PROTEIN QUANTITATIV 0.36 MG/DL (0.00-0.30); MAGNESIUM LEVEL 1.2 MG/DL (1.8-2.4); TOTAL PROTEIN 5.8 GM/DL (6.4-8.2)
[2017-06-04] MEDS: MULTIVITAMINS/MINERALS THERAP 1 TAB PO (08:26)
[2017-06-04] MEDS: rOPINIRole 1MG TAB PO ×2 (08:26→20:34)
[2017-06-04] MEDS: GABAPENTIN 300 MG CAP PO ×3 (08:26→20:35)
[2017-06-04] MEDS: PANTOPRAZOLE 40MG TAB (PROTONIX) PO ×2 (08:26→20:34)
[2017-06-04] MEDS: PRAVASTATIN 20 MG TAB PO (08:26)
[2017-06-04] MEDS: predniSONE 20 MG TAB PO (08:26)
[2017-06-04] MEDS: FERROUS SULFATE 325MG TAB PO (08:27)
[2017-06-04] MEDS: CYANOCOBALAMIN 500 MCG TAB PO (08:27)
[2017-06-04] MEDS: POTASSIUM CHLORIDE 10 MEQ SR TABLET PO (08:27)
[2017-06-04] MEDS: TORSEMIDE 10 MG TABLET PO (08:27)
[2017-06-04] MEDS: APIXABAN 5 MG TAB (ELIQUIS) PO ×2 (08:29→20:35)
[2017-06-04] MEDS: LACTOBACILLUS ACIDOPHILUS CAP (BACID) PO ×2 (08:29→20:34)
[2017-06-04] MEDS: ISOSORBIDE MON. (IMDUR) 60 MG XR TAB PO (08:29)
[2017-06-04] MEDS: LEVEMIR (INSULIN DETEMIR) 1 UNITS/0.01ML SC ×2 (08:30→20:35)
[2017-06-04] MEDS: DIGOXIN 0.125 MG TAB PO (08:30)
[2017-06-04] MEDS: EUCERIN 120GM CREAM EXT (08:30)
[2017-06-04] MEDS: HumaLOG INSULIN (NovoLOG) PER UNIT SC ×4 (08:31→20:35)
[2017-06-04] MEDS: ATENOLOL 12.5MG PER 1/2 TABLET PO (08:32)
[2017-06-04] MEDS: ALLOPURINOL 300 MG TAB PO (08:32)
[2017-06-04 11:54] LABS: BEDSIDE GLUCOSE 195 MG/DL (80-115)
[2017-06-04] MEDS: MAGNESIUM OXIDE 400 MG TAB (MAG-OX) PO ×2 (13:04→20:34)
[2017-06-04] MEDS: MAG SULF 1GM/100ML (MAG RUN) 1 GM in APPROPRIATE DILUENT 1 EA IV ×3 (13:39→15:20)
[2017-06-04 16:52] LABS: BEDSIDE GLUCOSE 314 MG/DL (80-115)
[2017-06-04 18:49] LABS: ANION GAP 10 MEQ/L (8-16); BLOOD UREA NITROGEN 18 MG/DL (7-18); CALCIUM LEVEL 8.2 MG/DL (8.8-10.2); CARBON DIOXIDE LEVEL 30 MEQ/L (21-32); CHLORIDE LEVEL 104 MEQ/L (98-107); CREATININE FOR GFR 1.77 MG/DL (0.70-1.30); GLOMERULAR FILTRATION RATE 41.4 (>49); GLUCOSE, FASTING 247 MG/DL (70-100); POTASSIUM SERUM 4.1 MEQ/L (3.5-5.1); SODIUM LEVEL 144 MEQ/L (136-145)
[2017-06-04] MEDS: SERTRALINE HCL 25 MG TABLET PO (20:34)
[2017-06-04 20:53] LABS: BEDSIDE GLUCOSE 265 MG/DL (80-115)
[2017-06-05] MEDS: LOPERAMIDE 2 MG CAP PO (01:02)
[2017-06-05] MEDS: IPRATROPIUM 0.5MG/ALBUTEROL 2.5MG INH SOL UD 3ML (DUONEB)(J7620) NEB ×3 (03:51→11:07)
[2017-06-05] MEDS: LevoFLOXacin 500 MG TABLET PO (05:37)
[2017-06-05] MEDS: NYSTATIN 500,000 U/5 ML SUSP UDC SS ×2 (05:37→12:00)
[2017-06-05 06:47] LABS: HEMATOCRIT 27.1 % (42.0-52.0); HEMOGLOBIN 8.6 g/dl (13.5-17.5); MEAN CORPUSCULAR HEMOGLOBIN 33.1 pg (27.0-33.0); MEAN CORPUSCULAR HGB CONC 31.7 g/dl (32.0-36.5); MEAN CORPUSCULAR VOLUME 104.2 fl (80.0-96.0); PLATELET COUNT, AUTOMATED 133 10^3/uL (150-450); RED CELL DISTRIBUTION WIDTH 17.9 % (11.5-14.5); WHITE BLOOD COUNT 11.1 10^3/uL (4.0-10.0)
[2017-06-05] MEDS: ADVAIR HFA 230/21MCG INHALER INH (07:29)
[2017-06-05 07:32] LABS: ANION GAP 7 MEQ/L (8-16); BLOOD UREA NITROGEN 16 MG/DL (7-18); CALCIUM LEVEL 7.9 MG/DL (8.8-10.2); CARBON DIOXIDE LEVEL 31 MEQ/L (21-32); CHLORIDE LEVEL 109 MEQ/L (98-107); CREATININE FOR GFR 1.36 MG/DL (0.70-1.30); GLOMERULAR FILTRATION RATE 56.2 (>49); GLUCOSE, FASTING 166 MG/DL (70-100); POTASSIUM SERUM 3.6 MEQ/L (3.5-5.1); SODIUM LEVEL 147 MEQ/L (136-145)
[2017-06-05 08:07] LABS: ALBUMIN 2.9 GM/DL (3.2-5.2); ALBUMIN/GLOBULIN RATIO 1.21 (1.00-1.93); ALKALINE PHOSPHATASE 151 U/L (45-117); ALT/SGPT 126 U/L (12-78); AST/SGOT 112 U/L (7-37); BILIRUBIN,DIRECT 0.2 MG/DL (0.0-0.2); BILIRUBIN,TOTAL 0.5 MG/DL (0.2-1.0); TOTAL PROTEIN 5.3 GM/DL (6.4-8.2)
[2017-06-05] MEDS: MAGNESIUM OXIDE 400 MG TAB (MAG-OX) PO (08:35)
[2017-06-05] MEDS: ATENOLOL 12.5MG PER 1/2 TABLET PO (08:35)
[2017-06-05] MEDS: ISOSORBIDE MON. (IMDUR) 60 MG XR TAB PO (08:35)
[2017-06-05] MEDS: ALLOPURINOL 300 MG TAB PO (08:36)
[2017-06-05] MEDS: DIGOXIN 0.125 MG TAB PO (08:36)
[2017-06-05] MEDS: PRAVASTATIN 20 MG TAB PO (08:36)
[2017-06-05] MEDS: PANTOPRAZOLE 40MG TAB (PROTONIX) PO (08:36)
[2017-06-05] MEDS: GABAPENTIN 300 MG CAP PO (08:36)
[2017-06-05] MEDS: rOPINIRole 1MG TAB PO (08:36)
[2017-06-05] MEDS: APIXABAN 5 MG TAB (ELIQUIS) PO (08:36)
[2017-06-05] MEDS: MULTIVITAMINS/MINERALS THERAP 1 TAB PO (08:36)
[2017-06-05] MEDS: CYANOCOBALAMIN 500 MCG TAB PO (08:36)
[2017-06-05] MEDS: LACTOBACILLUS ACIDOPHILUS CAP (BACID) PO (08:37)
[2017-06-05] MEDS: predniSONE 20 MG TAB PO (08:37)
[2017-06-05] MEDS: TORSEMIDE 10 MG TABLET PO (08:37)
[2017-06-05] MEDS: FERROUS SULFATE 325MG TAB PO (08:37)
[2017-06-05] MEDS: LEVEMIR (INSULIN DETEMIR) 1 UNITS/0.01ML SC (08:37)
[2017-06-05] MEDS: HumaLOG INSULIN (NovoLOG) PER UNIT SC (08:38)
[2017-06-05] MEDS: EUCERIN 120GM CREAM EXT (08:38)
[2017-06-05 11:45] LABS: BEDSIDE GLUCOSE 193 MG/DL (80-115)
== END 2017-06-05 12:32 | disposition home health service (06) | DRG 981 ==
LOC: M MSPAV 05-24 14:30 → M ED 12:38 → M ED INP 17:52 → M PCU 20:39
PROC: 0DJ08ZZ Inspection of Upper Intestinal Tract, Via Natural or Artificial Opening Endoscopic (ICD-10-PCS; 2017-05-23 15:00)
PROC: 0JDR0ZZ Extraction of Left Foot Subcutaneous Tissue and Fascia, Open Approach (ICD-10-PCS; principal; 2017-05-23 15:28)
PROC: 30253N1 (ICD-10-PCS; 2017-05-23 15:28)
DX: K92.2 Gastrointestinal hemorrhage, unspecified (principal); D61.811 Other drug-induced pancytopenia; E27.40 Unspecified adrenocortical insufficiency; E87.2 Acidosis; D62 Acute posthemorrhagic anemia; I50.32 Chronic diastolic (congestive) heart failure; J96.11 Chronic respiratory failure with hypoxia; Z68.41 Body mass index [BMI] 40.0-44.9, adult; I13.0 Hypertensive heart and chronic kidney disease with heart failure and stage 1 through stage 4 chronic kidney disease, or unspecified chronic kidney disease; I48.91 Unspecified atrial fibrillation; J44.9 Chronic obstructive pulmonary disease, unspecified; Z66 Do not resuscitate; G47.33 Obstructive sleep apnea (adult) (pediatric); N18.3 Chronic kidney disease, stage 3 (moderate); G25.81 Restless legs syndrome; E11.621 Type 2 diabetes mellitus with foot ulcer; E11.22 Type 2 diabetes mellitus with diabetic chronic kidney disease; K21.9 Gastro-esophageal reflux disease without esophagitis; E66.01 Morbid (severe) obesity due to excess calories; J84.10 Pulmonary fibrosis, unspecified; E11.51 Type 2 diabetes mellitus with diabetic peripheral angiopathy without gangrene; E78.5 Hyperlipidemia, unspecified; R74.0 Nonspecific elevation of levels of transaminase and lactic acid dehydrogenase [LDH]; L97.529 Non-pressure chronic ulcer of other part of left foot with unspecified severity; D69.6 Thrombocytopenia, unspecified; F32.9 Major depressive disorder, single episode, unspecified; R07.89 Other chest pain; Z79.01 Long term (current) use of anticoagulants; Z79.82 Long term (current) use of aspirin; Z79.4 Long term (current) use of insulin; Z79.899 Other long term (current) drug therapy; Z88.8 Allergy status to other drugs, medicaments and biological substances; Z85.118 Personal history of other malignant neoplasm of bronchus and lung; Z90.2 Acquired absence of lung [part of]; Z87.891 Personal history of nicotine dependence; Z85.528 Personal history of other malignant neoplasm of kidney; Z90.5 Acquired absence of kidney

== ENCOUNTER → 2017-06-08 | Outpatient (REF) | payer MEDICARE, MEDICAID ==
[2017-06-08 11:38] LABS: HEMATOCRIT 30.5 % (42.0-52.0); HEMOGLOBIN 9.3 g/dl (13.5-17.5); MEAN CORPUSCULAR HEMOGLOBIN 32.4 pg (27.0-33.0); MEAN CORPUSCULAR HGB CONC 30.5 g/dl (32.0-36.5); MEAN CORPUSCULAR VOLUME 106.3 fl (80.0-96.0); PLATELET COUNT, AUTOMATED 162 10^3/uL (150-450); RED BLOOD COUNT 2.87 10^6/uL (4.30-6.10); RED CELL DISTRIBUTION WIDTH 19.7 % (11.5-14.5); WHITE BLOOD COUNT 7.2 10^3/uL (4.0-10.0)
[2017-06-08 11:55] LABS: ALBUMIN 3.2 GM/DL (3.2-5.2); ALBUMIN/GLOBULIN RATIO 1.19 (1.00-1.93); ALKALINE PHOSPHATASE 104 U/L (45-117); ALT/SGPT 110 U/L (12-78); ANION GAP 11 MEQ/L (8-16); AST/SGOT 55 U/L (7-37); BILIRUBIN,TOTAL 0.5 MG/DL (0.2-1.0); BLOOD UREA NITROGEN 18 MG/DL (7-18); CALCIUM LEVEL 7.8 MG/DL (8.8-10.2); CARBON DIOXIDE LEVEL 28 MEQ/L (21-32); CHLORIDE LEVEL 106 MEQ/L (98-107); CREATININE FOR GFR 1.29 MG/DL (0.70-1.30); GLOMERULAR FILTRATION RATE 59.7 (>49); GLUCOSE, FASTING 138 MG/DL (70-100); POTASSIUM SERUM 3.3 MEQ/L (3.5-5.1); SODIUM LEVEL 145 MEQ/L (136-145); TOTAL PROTEIN 5.9 GM/DL (6.4-8.2)
== END ==
LOC: M SFHCLERA 09:30
DX: D50.0 Iron deficiency anemia secondary to blood loss (chronic) (principal); R74.0 Nonspecific elevation of levels of transaminase and lactic acid dehydrogenase [LDH]
CPT/HCPCS: 80053

== ENCOUNTER 2017-06-09 21:39 | Inpatient (IN) | payer MEDICARE, MEDICAID ==
[2017-06-09] MEDS ORDERED: NITROGLYCERIN 0.4 MG SUBL TABLET SL (22:00)
[2017-06-09 22:16] LABS: BASO % 0.4 % (0.0-1.0); EOS % 0.1 % (0.0-3.0); HEMATOCRIT 29.3 % (42.0-52.0); IMMATURE GRANULOCYTE % 4.2 % (0-3.0); LYMPH % 13.7 % (24.0-44.0); MEAN CORPUSCULAR HEMOGLOBIN 32.8 pg (27.0-33.0); MEAN CORPUSCULAR HGB CONC 30.7 g/dl (32.0-36.5); MEAN CORPUSCULAR VOLUME 106.9 fl (80.0-96.0); MONO # 0.6 10^3/uL (0.0-0.8); MONO % 8.5 % (0.0-5.0); NEUTROPHILS # 5.3 10^3/uL (1.8-7.7); NEUTROPHILS % 73.1 % (36.0-66.0); PLATELET COUNT, AUTOMATED 175 10^3/uL (150-450); RED BLOOD COUNT 2.74 10^6/uL (4.30-6.10); RED CELL DISTRIBUTION WIDTH 20.5 % (11.5-14.5); WHITE BLOOD COUNT 7.3 10^3/uL (4.0-10.0)
[2017-06-09] MEDS: IPRATROPIUM 0.5MG/ALBUTEROL 2.5MG INH SOL UD 3ML (DUONEB)(J7620) NEB ×3 (22:29)
[2017-06-09 22:33] LABS: ANION GAP 9 MEQ/L (8-16); BLOOD UREA NITROGEN 23 MG/DL (7-18); CARBON DIOXIDE LEVEL 28 MEQ/L (21-32); CHLORIDE LEVEL 108 MEQ/L (98-107); CK-MB VALUE MASS 2.2 NG/ML (<3.6); CPK CREATINE PHOSPHOKINASE 31 U/L (39-308); CREATININE FOR GFR 1.46 MG/DL (0.70-1.30); GLOMERULAR FILTRATION RATE 51.7 (>49); GLUCOSE, FASTING 243 MG/DL (70-100); MB/CK RELATIVE INDEX 7.09 (< OR =4); NT-PRO BNP 630 PG/ML (<125); POTASSIUM SERUM 3.7 MEQ/L (3.5-5.1); SODIUM LEVEL 145 MEQ/L (136-145); TROPONIN I 0.04 NG/ML (< 0.10)
[2017-06-09 22:35] LABS: ABG BASE EXCESS -1.4 (-2.0-2.0); ABG HCO3 22.9 MEQ/L (22.0-26.0); ABG O2 SATURATION 94.3 % (95.0-99.0); ABG PARTIAL PRESSURE CO2 36.5 mmHg (35.0-45.0); ABG PARTIAL PRESSURE O2 78.7 mmHg (75.0-100.0); ABG STANDARD HCO3 23.3 MEQ/L (22.0-26.0); ABG pH (ARTERIAL) 7.415 UNITS (7.350-7.450)
[2017-06-09 22:38] LABS: LACTIC ACID SEPSIS PROTOCOL 3.1 MMOL/L (0.4-2.0)
[2017-06-10] MEDS: methylPREDNISolone INJ 125 MG/2 ML VIAL (J2930) IV (00:07)
[2017-06-10] MEDS ORDERED: ONDANSETRON 4MG/2ML VIAL (J2405) IV (00:45)
[2017-06-10] MEDS: FUROSEMIDE 40 MG/4 ML VIAL (J1940) IV (01:38)
[2017-06-10] MEDS: IPRATROPIUM 0.5MG/ALBUTEROL 2.5MG INH SOL UD 3ML (DUONEB)(J7620) NEB ×4 (04:14→20:00)
[2017-06-10] MEDS ORDERED: hydrOXYzine 25 MG TAB PO (04:45)
[2017-06-10 05:15] LABS: HEMATOCRIT 29.8 % (42.0-52.0); HEMOGLOBIN 9.1 g/dl (13.5-17.5); MEAN CORPUSCULAR HEMOGLOBIN 32.3 pg (27.0-33.0); MEAN CORPUSCULAR HGB CONC 30.5 g/dl (32.0-36.5); MEAN CORPUSCULAR VOLUME 105.7 fl (80.0-96.0); PLATELET COUNT, AUTOMATED 186 10^3/uL (150-450); RED BLOOD COUNT 2.82 10^6/uL (4.30-6.10); RED CELL DISTRIBUTION WIDTH 20.2 % (11.5-14.5); WHITE BLOOD COUNT 6.7 10^3/uL (4.0-10.0)
[2017-06-10 05:29] LABS: ANION GAP 6 MEQ/L (8-16); BLOOD UREA NITROGEN 21 MG/DL (7-18); CARBON DIOXIDE LEVEL 32 MEQ/L (21-32); CHLORIDE LEVEL 105 MEQ/L (98-107); CREATININE FOR GFR 1.32 MG/DL (0.70-1.30); GLOMERULAR FILTRATION RATE 58.1 (>49); GLUCOSE, FASTING 289 MG/DL (70-100); POTASSIUM SERUM 3.7 MEQ/L (3.5-5.1); SODIUM LEVEL 143 MEQ/L (136-145)
[2017-06-10] MEDS ORDERED: DEXTROSE 50% 50 ML SYRINGE IV (06:00)
[2017-06-10] MEDS ORDERED: GLUCOSE 4 GM CHEW TABLET PO (06:00)
[2017-06-10] MEDS ORDERED: GLUCAGON FOR INJ 1 MG VIAL (J1610) SC (06:00)
[2017-06-10 06:15] LABS: BEDSIDE GLUCOSE 360 MG/DL (80-115)
[2017-06-10] MEDS: TIOTROPIUM INHALER/CAPSULE (SPIRIVA) INH (07:57)
[2017-06-10] MEDS: SYMBICORT 80/4.5MCG INHALER 6GM INH ×2 (07:58→21:52)
[2017-06-10] MEDS: HumaLOG INSULIN (NovoLOG) PER UNIT SC ×4 (08:32→21:02)
[2017-06-10] MEDS: DIGOXIN 0.125 MG TAB PO (08:33)
[2017-06-10] MEDS: CYANOCOBALAMIN 500 MCG TAB PO (08:33)
[2017-06-10] MEDS: MAGNESIUM OXIDE 400 MG TAB (MAG-OX) PO (08:33)
[2017-06-10] MEDS: predniSONE 20 MG TAB PO (08:33)
[2017-06-10] MEDS: LEVEMIR (INSULIN DETEMIR) 1 UNITS/0.01ML SC ×2 (08:33→21:02)
[2017-06-10] MEDS: APIXABAN 5 MG TAB (ELIQUIS) PO ×2 (08:33→21:03)
[2017-06-10] MEDS: PRAVASTATIN 20 MG TAB PO (08:34)
[2017-06-10] MEDS: guaiFENesin ER 600 MG TAB PO ×2 (08:34→21:03)
[2017-06-10] MEDS: PANTOPRAZOLE 40MG TAB (PROTONIX) PO ×2 (08:34→21:02)
[2017-06-10] MEDS: FERROUS SULFATE 325MG TAB PO (08:34)
[2017-06-10] MEDS: ISOSORBIDE MON. (IMDUR) 60 MG XR TAB PO (08:34)
[2017-06-10] MEDS: ZONISAMIDE 50 MG CAP (ZONEGRAN) PO ×2 (08:34→21:12)
[2017-06-10] MEDS: rOPINIRole 1MG TAB PO ×2 (08:34→21:03)
[2017-06-10] MEDS: ASPIRIN 81 MG ENTERIC TAB PO (08:35)
[2017-06-10] MEDS: GABAPENTIN 300 MG CAP PO ×3 (08:35→21:02)
[2017-06-10] MEDS: CEFDINIR 300 MG CAP (OMNICEF) PO (08:35)
[2017-06-10] MEDS: TORSEMIDE 10 MG TABLET PO (08:41)
[2017-06-10] MEDS: ATENOLOL 12.5MG PER 1/2 TABLET PO (08:42)
[2017-06-10] MEDS ORDERED: ATENOLOL 25 MG TAB PO (09:55)
[2017-06-10] MEDS ORDERED: PILL CRUSHER/CUTTER 1 EACH XX (10:00)
[2017-06-10] MEDS: ALBUTEROL SULFATE 2.5 MG/0.5 ML INH NEB SOLN NEB ×2 (11:28→15:28)
[2017-06-10] MEDS: TORSEMIDE 20 MG TAB PO (11:43)
[2017-06-10 11:54] LABS: BEDSIDE GLUCOSE 352 MG/DL (80-115)
[2017-06-10 16:44] LABS: BEDSIDE GLUCOSE 328 MG/DL (80-115)
[2017-06-10 20:01] LABS: BEDSIDE GLUCOSE 337 MG/DL (80-115)
[2017-06-10] MEDS: EUCERIN 120GM CREAM TOP (21:02)
[2017-06-10] MEDS: SERTRALINE HCL 50 MG TAB PO (21:03)
[2017-06-11] MEDS: IPRATROPIUM 0.5MG/ALBUTEROL 2.5MG INH SOL UD 3ML (DUONEB)(J7620) NEB ×6 (01:31→23:15)
[2017-06-11 06:16] LABS: HEMOGLOBIN 10.1 g/dl (13.5-17.5); MEAN CORPUSCULAR HEMOGLOBIN 32.7 pg (27.0-33.0); MEAN CORPUSCULAR HGB CONC 30.6 g/dl (32.0-36.5); MEAN CORPUSCULAR VOLUME 106.8 fl (80.0-96.0); PLATELET COUNT, AUTOMATED 200 10^3/uL (150-450); RED BLOOD COUNT 3.09 10^6/uL (4.30-6.10); RED CELL DISTRIBUTION WIDTH 20.8 % (11.5-14.5); WHITE BLOOD COUNT 10.4 10^3/uL (4.0-10.0)
[2017-06-11 06:37] LABS: ANION GAP 9 MEQ/L (8-16); BLOOD UREA NITROGEN 23 MG/DL (7-18); CALCIUM LEVEL 8.5 MG/DL (8.8-10.2); CARBON DIOXIDE LEVEL 29 MEQ/L (21-32); CHLORIDE LEVEL 107 MEQ/L (98-107); CREATININE FOR GFR 1.31 MG/DL (0.70-1.30); GLOMERULAR FILTRATION RATE 58.6 (>49); GLUCOSE, FASTING 122 MG/DL (70-100); POTASSIUM SERUM 3.4 MEQ/L (3.5-5.1); SODIUM LEVEL 145 MEQ/L (136-145)
[2017-06-11] MEDS: MAGNESIUM OXIDE 400 MG TAB (MAG-OX) PO (08:07)
[2017-06-11] MEDS: guaiFENesin ER 600 MG TAB PO ×2 (08:07→20:30)
[2017-06-11] MEDS: CYANOCOBALAMIN 500 MCG TAB PO (08:07)
[2017-06-11] MEDS: TORSEMIDE 20 MG TAB PO (08:08)
[2017-06-11] MEDS: ATENOLOL 25 MG TAB PO (08:08)
[2017-06-11] MEDS: PANTOPRAZOLE 40MG TAB (PROTONIX) PO ×2 (08:08→20:30)
[2017-06-11] MEDS: ASPIRIN 81 MG ENTERIC TAB PO (08:09)
[2017-06-11] MEDS: predniSONE 20 MG TAB PO (08:09)
[2017-06-11] MEDS: FERROUS SULFATE 325MG TAB PO (08:09)
[2017-06-11] MEDS: GABAPENTIN 300 MG CAP PO ×3 (08:09→20:29)
[2017-06-11] MEDS: POTASSIUM CHLORIDE 10 MEQ SR TABLET PO (08:09)
[2017-06-11] MEDS: CEFDINIR 300 MG CAP (OMNICEF) PO (08:09)
[2017-06-11] MEDS: LEVEMIR (INSULIN DETEMIR) 1 UNITS/0.01ML SC ×2 (08:10→20:34)
[2017-06-11] MEDS: PRAVASTATIN 20 MG TAB PO (08:10)
[2017-06-11] MEDS: ISOSORBIDE MON. (IMDUR) 60 MG XR TAB PO (08:10)
[2017-06-11] MEDS: DIGOXIN 0.125 MG TAB PO (08:10)
[2017-06-11] MEDS: rOPINIRole 1MG TAB PO ×2 (08:10→20:30)
[2017-06-11] MEDS: APIXABAN 5 MG TAB (ELIQUIS) PO ×2 (08:10→20:30)
[2017-06-11] MEDS: HumaLOG INSULIN (NovoLOG) PER UNIT SC ×4 (08:11→20:34)
[2017-06-11] MEDS: EUCERIN 120GM CREAM TOP ×2 (08:11→20:35)
[2017-06-11] MEDS: ZONISAMIDE 50 MG CAP (ZONEGRAN) PO ×2 (08:14→20:29)
[2017-06-11] MEDS: SYMBICORT 80/4.5MCG INHALER 6GM INH ×2 (09:11→20:26)
[2017-06-11] MEDS: TIOTROPIUM INHALER/CAPSULE (SPIRIVA) INH (09:11)
[2017-06-11 11:53] LABS: BEDSIDE GLUCOSE 241 MG/DL (80-115)
[2017-06-11 17:19] LABS: BEDSIDE GLUCOSE 273 MG/DL (80-115)
[2017-06-11 20:09] LABS: BEDSIDE GLUCOSE 354 MG/DL (80-115)
[2017-06-11] MEDS: SERTRALINE HCL 50 MG TAB PO (20:31)
[2017-06-12] MEDS: IPRATROPIUM 0.5MG/ALBUTEROL 2.5MG INH SOL UD 3ML (DUONEB)(J7620) NEB ×6 (03:46→23:38)
[2017-06-12 05:56] LABS: HEMATOCRIT 31.2 % (42.0-52.0); HEMOGLOBIN 9.8 g/dl (13.5-17.5); MEAN CORPUSCULAR HEMOGLOBIN 33.3 pg (27.0-33.0); MEAN CORPUSCULAR HGB CONC 31.4 g/dl (32.0-36.5); MEAN CORPUSCULAR VOLUME 106.1 fl (80.0-96.0); PLATELET COUNT, AUTOMATED 185 10^3/uL (150-450); RED BLOOD COUNT 2.94 10^6/uL (4.30-6.10); RED CELL DISTRIBUTION WIDTH 20.5 % (11.5-14.5); WHITE BLOOD COUNT 6.7 10^3/uL (4.0-10.0)
[2017-06-12 06:24] LABS: ANION GAP 7 MEQ/L (8-16); BLOOD UREA NITROGEN 23 MG/DL (7-18); CALCIUM LEVEL 8.5 MG/DL (8.8-10.2); CARBON DIOXIDE LEVEL 29 MEQ/L (21-32); CHLORIDE LEVEL 108 MEQ/L (98-107); CREATININE FOR GFR 1.19 MG/DL (0.70-1.30); GLOMERULAR FILTRATION RATE > 60.0 (>49); GLUCOSE, FASTING 161 MG/DL (70-100); POTASSIUM SERUM 3.4 MEQ/L (3.5-5.1); SODIUM LEVEL 144 MEQ/L (136-145)
[2017-06-12] MEDS: TIOTROPIUM INHALER/CAPSULE (SPIRIVA) INH (07:25)
[2017-06-12] MEDS: SYMBICORT 80/4.5MCG INHALER 6GM INH ×2 (07:26→20:16)
[2017-06-12] MEDS: HumaLOG INSULIN (NovoLOG) PER UNIT SC ×4 (08:43→21:19)
[2017-06-12] MEDS: PRAVASTATIN 20 MG TAB PO (08:44)
[2017-06-12] MEDS: APIXABAN 5 MG TAB (ELIQUIS) PO ×2 (08:44→21:20)
[2017-06-12] MEDS: POTASSIUM CHLORIDE 10 MEQ SR TABLET PO (08:44)
[2017-06-12] MEDS: ASPIRIN 81 MG ENTERIC TAB PO (08:44)
[2017-06-12] MEDS: GABAPENTIN 300 MG CAP PO ×3 (08:44→21:20)
[2017-06-12] MEDS: LEVEMIR (INSULIN DETEMIR) 1 UNITS/0.01ML SC ×2 (08:44→21:19)
[2017-06-12] MEDS: predniSONE 20 MG TAB PO (08:44)
[2017-06-12] MEDS: MAGNESIUM OXIDE 400 MG TAB (MAG-OX) PO (08:44)
[2017-06-12] MEDS: PANTOPRAZOLE 40MG TAB (PROTONIX) PO ×2 (08:45→21:20)
[2017-06-12] MEDS: ZONISAMIDE 50 MG CAP (ZONEGRAN) PO ×2 (08:45→21:22)
[2017-06-12] MEDS: guaiFENesin ER 600 MG TAB PO ×2 (08:45→21:20)
[2017-06-12] MEDS: CYANOCOBALAMIN 500 MCG TAB PO (08:45)
[2017-06-12] MEDS: TORSEMIDE 20 MG TAB PO (08:45)
[2017-06-12] MEDS: rOPINIRole 1MG TAB PO ×2 (08:45→21:20)
[2017-06-12] MEDS: CEFDINIR 300 MG CAP (OMNICEF) PO (08:46)
[2017-06-12] MEDS: ATENOLOL 25 MG TAB PO (08:48)
[2017-06-12] MEDS: DIGOXIN 0.125 MG TAB PO (08:48)
[2017-06-12] MEDS: ISOSORBIDE MON. (IMDUR) 60 MG XR TAB PO (08:49)
[2017-06-12] MEDS: EUCERIN 120GM CREAM TOP ×2 (08:49→21:23)
[2017-06-12] MEDS: FERROUS SULFATE 325MG TAB PO (08:54)
[2017-06-12 12:34] LABS: BEDSIDE GLUCOSE 258 MG/DL (80-115)
[2017-06-12 19:46] LABS: BEDSIDE GLUCOSE 307 MG/DL (80-115)
[2017-06-12 20:56] LABS: BEDSIDE GLUCOSE 258 MG/DL (80-115)
[2017-06-12] MEDS: SERTRALINE HCL 50 MG TAB PO (21:20)
[2017-06-13] MEDS: IPRATROPIUM 0.5MG/ALBUTEROL 2.5MG INH SOL UD 3ML (DUONEB)(J7620) NEB ×6 (04:29→23:50)
[2017-06-13 05:38] LABS: HEMATOCRIT 30.8 % (42.0-52.0); HEMOGLOBIN 9.6 g/dl (13.5-17.5); MEAN CORPUSCULAR HEMOGLOBIN 32.8 pg (27.0-33.0); MEAN CORPUSCULAR HGB CONC 31.2 g/dl (32.0-36.5); MEAN CORPUSCULAR VOLUME 105.1 fl (80.0-96.0); PLATELET COUNT, AUTOMATED 175 10^3/uL (150-450); RED BLOOD COUNT 2.93 10^6/uL (4.30-6.10); RED CELL DISTRIBUTION WIDTH 20.2 % (11.5-14.5); WHITE BLOOD COUNT 5.7 10^3/uL (4.0-10.0)
[2017-06-13 06:01] LABS: ANION GAP 6 MEQ/L (8-16); BLOOD UREA NITROGEN 23 MG/DL (7-18); CALCIUM LEVEL 8.9 MG/DL (8.8-10.2); CARBON DIOXIDE LEVEL 34 MEQ/L (21-32); CHLORIDE LEVEL 106 MEQ/L (98-107); CREATININE FOR GFR 1.29 MG/DL (0.70-1.30); GLOMERULAR FILTRATION RATE 59.7 (>49); GLUCOSE, FASTING 140 MG/DL (70-100); POTASSIUM SERUM 3.3 MEQ/L (3.5-5.1); SODIUM LEVEL 146 MEQ/L (136-145)
[2017-06-13 08:54] LABS: CK-MB VALUE MASS 1.3 NG/ML (<3.6); CPK CREATINE PHOSPHOKINASE 25 U/L (39-308); MAGNESIUM LEVEL 1.7 MG/DL (1.8-2.4); TROPONIN I 0.04 NG/ML (< 0.10)
[2017-06-13] MEDS: TIOTROPIUM INHALER/CAPSULE (SPIRIVA) INH (09:07)
[2017-06-13] MEDS: SYMBICORT 80/4.5MCG INHALER 6GM INH ×2 (09:07→20:36)
[2017-06-13] MEDS: HumaLOG INSULIN (NovoLOG) PER UNIT SC ×4 (09:29→21:58)
[2017-06-13] MEDS: LEVEMIR (INSULIN DETEMIR) 1 UNITS/0.01ML SC ×2 (09:29→21:58)
[2017-06-13] MEDS: ASPIRIN 81 MG ENTERIC TAB PO (10:12)
[2017-06-13] MEDS: guaiFENesin ER 600 MG TAB PO ×2 (10:13→21:58)
[2017-06-13] MEDS: ATENOLOL 50 MG TAB PO (10:13)
[2017-06-13] MEDS: TORSEMIDE 20 MG TAB PO (10:14)
[2017-06-13] MEDS: PANTOPRAZOLE 40MG TAB (PROTONIX) PO ×2 (10:14→21:59)
[2017-06-13] MEDS: APIXABAN 5 MG TAB (ELIQUIS) PO ×2 (10:14→21:58)
[2017-06-13] MEDS: GABAPENTIN 300 MG CAP PO ×3 (10:14→21:59)
[2017-06-13] MEDS: PRAVASTATIN 20 MG TAB PO (10:15)
[2017-06-13] MEDS: FERROUS SULFATE 325MG TAB PO (10:15)
[2017-06-13] MEDS: MAGNESIUM OXIDE 400 MG TAB (MAG-OX) PO (10:15)
[2017-06-13] MEDS: rOPINIRole 1MG TAB PO ×2 (10:15→21:59)
[2017-06-13] MEDS: predniSONE 20 MG TAB PO (10:15)
[2017-06-13] MEDS: ZONISAMIDE 50 MG CAP (ZONEGRAN) PO ×2 (10:16→21:58)
[2017-06-13] MEDS: ISOSORBIDE MON. (IMDUR) 60 MG XR TAB PO (10:16)
[2017-06-13] MEDS: DIGOXIN 0.125 MG TAB PO (10:16)
[2017-06-13] MEDS: POTASSIUM CHLORIDE 10 MEQ SR TABLET PO ×2 (10:17→12:19)
[2017-06-13] MEDS: CEFDINIR 300 MG CAP (OMNICEF) PO (10:17)
[2017-06-13] MEDS: CYANOCOBALAMIN 500 MCG TAB PO (10:18)
[2017-06-13] MEDS: EUCERIN 120GM CREAM TOP ×2 (10:18→22:00)
[2017-06-13 11:31] LABS: BEDSIDE GLUCOSE 174 MG/DL (80-115)
[2017-06-13] MEDS: MAG SULF 1GM/100ML (MAG RUN) 1 GM in APPROPRIATE DILUENT 1 EA IV ×2 (12:19→12:20)
[2017-06-13 14:42] LABS: CPK CREATINE PHOSPHOKINASE 35 U/L (39-308); TROPONIN I 0.05 NG/ML (< 0.10)
[2017-06-13 14:43] LABS: CK-MB VALUE MASS 1.2 NG/ML (<3.6); MB/CK RELATIVE INDEX 3.42 (< OR =4)
[2017-06-13 17:11] LABS: BEDSIDE GLUCOSE 390 MG/DL (80-115)
[2017-06-13] MEDS: SERTRALINE HCL 50 MG TAB PO (21:59)
[2017-06-14] MEDS: FUROSEMIDE 100 MG/10 ML VIAL (J1940) IV (01:15)
[2017-06-14] MEDS: IPRATROPIUM 0.5MG/ALBUTEROL 2.5MG INH SOL UD 3ML (DUONEB)(J7620) NEB ×8 (01:40→23:07)
[2017-06-14 02:15] LABS: TROPONIN I 0.04 NG/ML (< 0.10)
[2017-06-14 02:30] LABS: ABG BASE EXCESS 3.7 (-2.0-2.0); ABG HCO3 29.9 MEQ/L (22.0-26.0); ABG PARTIAL PRESSURE CO2 52.6 mmHg (35.0-45.0); ABG STANDARD HCO3 27.6 MEQ/L (22.0-26.0); ABG TOTAL CO2 31.5 MEQ/L (23.0-31.0); ABG pH (ARTERIAL) 7.372 UNITS (7.350-7.450)
[2017-06-14 06:51] LABS: ABG BASE EXCESS 9.1 (-2.0-2.0); ABG HCO3 34.7 MEQ/L (22.0-26.0); ABG O2 SATURATION 90.1 % (95.0-99.0); ABG PARTIAL PRESSURE CO2 51.6 mmHg (35.0-45.0); ABG PARTIAL PRESSURE O2 60.3 mmHg (75.0-100.0); ABG STANDARD HCO3 32.7 MEQ/L (22.0-26.0); ABG TOTAL CO2 36.2 MEQ/L (23.0-31.0); ABG pH (ARTERIAL) 7.445 UNITS (7.350-7.450)
[2017-06-14 07:07] LABS: HEMATOCRIT 39.7 % (42.0-52.0); MEAN CORPUSCULAR HEMOGLOBIN 32.4 pg (27.0-33.0); MEAN CORPUSCULAR HGB CONC 30.7 g/dl (32.0-36.5); MEAN CORPUSCULAR VOLUME 105.6 fl (80.0-96.0); PLATELET COUNT, AUTOMATED 174 10^3/uL (150-450); RED BLOOD COUNT 3.76 10^6/uL (4.30-6.10); RED CELL DISTRIBUTION WIDTH 20.1 % (11.5-14.5)
[2017-06-14 07:16] LABS: HEMOGLOBIN 12.2 g/dl (13.5-17.5)
[2017-06-14 07:25] LABS: ANION GAP 10 MEQ/L (8-16); BLOOD UREA NITROGEN 26 MG/DL (7-18); CALCIUM LEVEL 9.2 MG/DL (8.8-10.2); CARBON DIOXIDE LEVEL 34 MEQ/L (21-32); CHLORIDE LEVEL 103 MEQ/L (98-107); CREATININE FOR GFR 1.41 MG/DL (0.70-1.30); GLOMERULAR FILTRATION RATE 53.9 (>49); GLUCOSE, FASTING 136 MG/DL (70-100); POTASSIUM SERUM 3.9 MEQ/L (3.5-5.1); SODIUM LEVEL 147 MEQ/L (136-145)
[2017-06-14 08:02] LABS: BEDSIDE GLUCOSE 298 MG/DL (80-115)
[2017-06-14] MEDS: methylPREDNISolone INJ 125 MG/2 ML VIAL (J2930) IV (08:17)
[2017-06-14] MEDS: PIPERACILLIN/TAZOBACTAM SOD 3.375 GM in D5W MINI-BAG PLUS 50 ML IV ×3 (08:28→19:40)
[2017-06-14] MEDS: HumaLOG INSULIN (NovoLOG) PER UNIT SC ×4 (08:31→23:40)
[2017-06-14 08:59] LABS: C REACTIVE PROTEIN QUANTITATIV 2.38 MG/DL (0.00-0.30)
[2017-06-14] MEDS: TIOTROPIUM INHALER/CAPSULE (SPIRIVA) INH (09:00)
[2017-06-14] MEDS: SYMBICORT 80/4.5MCG INHALER 6GM INH ×2 (09:00→21:00)
[2017-06-14] MEDS: APIXABAN 5 MG TAB (ELIQUIS) PO ×2 (09:03→20:02)
[2017-06-14] MEDS: DIGOXIN 0.125 MG TAB PO (09:03)
[2017-06-14] MEDS: ASPIRIN 81 MG ENTERIC TAB PO (09:03)
[2017-06-14] MEDS: ATENOLOL 50 MG TAB PO (09:04)
[2017-06-14] MEDS: MORPHINE 4 MG/ML 1ML VIAL/SYRINGE (J2270) IV (09:09)
[2017-06-14] MEDS: TORSEMIDE 20 MG TAB PO (09:48)
[2017-06-14] MEDS: MAGNESIUM OXIDE 400 MG TAB (MAG-OX) PO (09:48)
[2017-06-14] MEDS: ISOSORBIDE MON. (IMDUR) 60 MG XR TAB PO (09:48)
[2017-06-14] MEDS: FERROUS SULFATE 325MG TAB PO (09:48)
[2017-06-14] MEDS: rOPINIRole 1MG TAB PO ×2 (09:49→20:11)
[2017-06-14] MEDS: CYANOCOBALAMIN 500 MCG TAB PO (09:49)
[2017-06-14] MEDS: PANTOPRAZOLE 40MG TAB (PROTONIX) PO ×2 (09:49→20:02)
[2017-06-14] MEDS: ZONISAMIDE 50 MG CAP (ZONEGRAN) PO ×2 (09:49→20:11)
[2017-06-14] MEDS: guaiFENesin ER 600 MG TAB PO ×2 (09:49→20:01)
[2017-06-14] MEDS: PRAVASTATIN 20 MG TAB PO (09:49)
[2017-06-14] MEDS: GABAPENTIN 300 MG CAP PO ×3 (09:49→20:01)
[2017-06-14] MEDS: LEVEMIR (INSULIN DETEMIR) 1 UNITS/0.01ML SC ×2 (09:50→20:10)
[2017-06-14] MEDS: SODIUM CHLORIDE 0.9% 1000 ML IV (09:51)
[2017-06-14] MEDS: VANCOMYCIN HCL 1,000 MG, VIAL MATE ADAPTER 1 EACH in D5W 250 ML IV ×3 (09:53→20:10)
[2017-06-14] MEDS: EUCERIN 120GM CREAM TOP ×2 (10:00→21:41)
[2017-06-14 10:41] LABS: LACTIC ACID SEPSIS PROTOCOL 3.8 MMOL/L (0.4-2.0)
[2017-06-14] MEDS: NS 500 ML IV (11:15)
[2017-06-14 11:52] LABS: BEDSIDE GLUCOSE 265 MG/DL (80-115)
[2017-06-14] MEDS ORDERED: NOREPINEPHRINE 4 MG/4 ML AMP As Ordered (12:35)
[2017-06-14] MEDS: NOREPINEPHRINE BITARTRATE 8 MG in D5W 492 ML IV ×7 (12:45→18:00)
[2017-06-14] MEDS ORDERED: ALBUTEROL SULFATE 2.5 MG/0.5 ML INH NEB SOLN NEB (12:45)
[2017-06-14] MEDS: HYDROCORTISONE 100 MG/2 ML VIAL (J1720) IV ×2 (14:18→21:41)
[2017-06-14] MEDS: SERTRALINE HCL 50 MG TAB PO (20:02)
[2017-06-14 21:43] LABS: BEDSIDE GLUCOSE 290 MG/DL (80-115)
[2017-06-14 21:43] LABS: BEDSIDE GLUCOSE 306 MG/DL (80-115)
[2017-06-14 23:42] LABS: BEDSIDE GLUCOSE 237 MG/DL (80-115)
[2017-06-15] MEDS: PIPERACILLIN/TAZOBACTAM SOD 3.375 GM in D5W MINI-BAG PLUS 50 ML IV ×4 (02:00→20:17)
[2017-06-15] MEDS: IPRATROPIUM 0.5MG/ALBUTEROL 2.5MG INH SOL UD 3ML (DUONEB)(J7620) NEB ×6 (03:26→23:42)
[2017-06-15 05:12] LABS: HEMATOCRIT 32.2 % (42.0-52.0); MEAN CORPUSCULAR HEMOGLOBIN 32.3 pg (27.0-33.0); MEAN CORPUSCULAR HGB CONC 30.4 g/dl (32.0-36.5); MEAN CORPUSCULAR VOLUME 106.3 fl (80.0-96.0); PLATELET COUNT, AUTOMATED 146 10^3/uL (150-450); RED BLOOD COUNT 3.03 10^6/uL (4.30-6.10); RED CELL DISTRIBUTION WIDTH 19.3 % (11.5-14.5); WHITE BLOOD COUNT 11.5 10^3/uL (4.0-10.0)
[2017-06-15 05:24] LABS: HEMOGLOBIN 9.8 g/dl (13.5-17.5)
[2017-06-15 05:45] LABS: ANION GAP 6 MEQ/L (8-16); BLOOD UREA NITROGEN 36 MG/DL (7-18); CALCIUM LEVEL 8.2 MG/DL (8.8-10.2); CARBON DIOXIDE LEVEL 36 MEQ/L (21-32); CHLORIDE LEVEL 105 MEQ/L (98-107); CREATININE FOR GFR 1.51 MG/DL (0.70-1.30); GLOMERULAR FILTRATION RATE 49.8 (>49); GLUCOSE, FASTING 148 MG/DL (70-100); POTASSIUM SERUM 4.1 MEQ/L (3.5-5.1); SODIUM LEVEL 147 MEQ/L (136-145)
[2017-06-15] MEDS: HumaLOG INSULIN (NovoLOG) PER UNIT SC ×4 (06:23→20:17)
[2017-06-15] MEDS: HYDROCORTISONE 100 MG/2 ML VIAL (J1720) IV ×2 (06:23→14:37)
[2017-06-15] MEDS: TIOTROPIUM INHALER/CAPSULE (SPIRIVA) INH (08:10)
[2017-06-15] MEDS: SYMBICORT 80/4.5MCG INHALER 6GM INH ×2 (08:10→20:12)
[2017-06-15] MEDS: NOREPINEPHRINE BITARTRATE 8 MG in D5W 492 ML IV (08:16)
[2017-06-15] MEDS: EUCERIN 120GM CREAM TOP ×2 (08:47→20:18)
[2017-06-15] MEDS: LEVEMIR (INSULIN DETEMIR) 1 UNITS/0.01ML SC ×2 (08:48→20:16)
[2017-06-15] MEDS: VANCOMYCIN HCL 1,000 MG, VIAL MATE ADAPTER 1 EACH in D5W 250 ML IV ×2 (08:48→20:17)
[2017-06-15] MEDS: APIXABAN 5 MG TAB (ELIQUIS) PO ×2 (08:49→20:16)
[2017-06-15] MEDS: MAGNESIUM OXIDE 400 MG TAB (MAG-OX) PO (08:49)
[2017-06-15] MEDS: PANTOPRAZOLE 40MG TAB (PROTONIX) PO ×2 (08:50→20:16)
[2017-06-15] MEDS: CYANOCOBALAMIN 500 MCG TAB PO (08:50)
[2017-06-15] MEDS: DIGOXIN 0.125 MG TAB PO (08:50)
[2017-06-15] MEDS: ISOSORBIDE MON. (IMDUR) 60 MG XR TAB PO (08:50)
[2017-06-15] MEDS: ATENOLOL 50 MG TAB PO ×2 (08:51→09:02)
[2017-06-15] MEDS: FERROUS SULFATE 325MG TAB PO (08:52)
[2017-06-15] MEDS: ASPIRIN 81 MG ENTERIC TAB PO (08:52)
[2017-06-15] MEDS: guaiFENesin ER 600 MG TAB PO ×2 (08:52→20:16)
[2017-06-15] MEDS: GABAPENTIN 300 MG CAP PO ×3 (08:52→20:16)
[2017-06-15] MEDS: PRAVASTATIN 20 MG TAB PO (08:52)
[2017-06-15] MEDS: ZONISAMIDE 50 MG CAP (ZONEGRAN) PO ×2 (08:53→20:15)
[2017-06-15] MEDS ORDERED: predniSONE 20 MG TAB PO (09:00)
[2017-06-15] MEDS: rOPINIRole 1MG TAB PO ×2 (11:52→20:15)
[2017-06-15 11:54] LABS: BEDSIDE GLUCOSE 179 MG/DL (80-115)
[2017-06-15] MEDS: NYSTATIN 500,000 U/5 ML SUSP UDC SS ×3 (14:37→20:16)
[2017-06-15] MEDS: NYSTATIN 100,000 UNITS/GM TOPICAL PWD 15 GM TOP ×2 (14:37→20:18)
[2017-06-15 16:47] LABS: BEDSIDE GLUCOSE 211 MG/DL (80-115)
[2017-06-15 20:03] LABS: BEDSIDE GLUCOSE 280 MG/DL (80-115)
[2017-06-15] MEDS: SERTRALINE HCL 50 MG TAB PO (20:16)
[2017-06-16] MEDS: IPRATROPIUM 0.5MG/ALBUTEROL 2.5MG INH SOL UD 3ML (DUONEB)(J7620) NEB ×6 (04:00→23:30)
[2017-06-16 05:16] LABS: HEMATOCRIT 28.6 % (42.0-52.0); HEMOGLOBIN 8.8 g/dl (13.5-17.5); MEAN CORPUSCULAR HEMOGLOBIN 32.7 pg (27.0-33.0); MEAN CORPUSCULAR HGB CONC 30.8 g/dl (32.0-36.5); MEAN CORPUSCULAR VOLUME 106.3 fl (80.0-96.0); PLATELET COUNT, AUTOMATED 123 10^3/uL (150-450); RED BLOOD COUNT 2.69 10^6/uL (4.30-6.10); RED CELL DISTRIBUTION WIDTH 18.4 % (11.5-14.5); WHITE BLOOD COUNT 7.3 10^3/uL (4.0-10.0)
[2017-06-16 05:39] LABS: ANION GAP 3 MEQ/L (8-16); BLOOD UREA NITROGEN 31 MG/DL (7-18); CALCIUM LEVEL 8.5 MG/DL (8.8-10.2); CARBON DIOXIDE LEVEL 37 MEQ/L (21-32); CHLORIDE LEVEL 103 MEQ/L (98-107); CREATININE FOR GFR 1.16 MG/DL (0.70-1.30); GLOMERULAR FILTRATION RATE > 60.0 (>49); GLUCOSE, FASTING 92 MG/DL (70-100); POTASSIUM SERUM 3.6 MEQ/L (3.5-5.1); SODIUM LEVEL 143 MEQ/L (136-145)
[2017-06-16] MEDS: HumaLOG INSULIN (NovoLOG) PER UNIT SC ×4 (07:30→20:27)
[2017-06-16] MEDS: SYMBICORT 80/4.5MCG INHALER 6GM INH ×2 (08:20→21:10)
[2017-06-16] MEDS: TIOTROPIUM INHALER/CAPSULE (SPIRIVA) INH (08:20)
[2017-06-16] MEDS: ATENOLOL 50 MG TAB PO (09:00)
[2017-06-16] MEDS: LEVEMIR (INSULIN DETEMIR) 1 UNITS/0.01ML SC ×2 (09:04→20:26)
[2017-06-16] MEDS: GABAPENTIN 300 MG CAP PO ×3 (09:05→20:28)
[2017-06-16] MEDS: guaiFENesin ER 600 MG TAB PO ×2 (09:05→20:27)
[2017-06-16] MEDS: DIGOXIN 0.125 MG TAB PO (09:05)
[2017-06-16] MEDS: CYANOCOBALAMIN 500 MCG TAB PO (09:05)
[2017-06-16] MEDS: FERROUS SULFATE 325MG TAB PO (09:05)
[2017-06-16] MEDS: ISOSORBIDE MON. (IMDUR) 60 MG XR TAB PO (09:05)
[2017-06-16] MEDS: NYSTATIN 500,000 U/5 ML SUSP UDC SS ×4 (09:06→20:28)
[2017-06-16] MEDS: ASPIRIN 81 MG ENTERIC TAB PO (09:06)
[2017-06-16] MEDS: APIXABAN 5 MG TAB (ELIQUIS) PO ×2 (09:06→20:28)
[2017-06-16] MEDS: NYSTATIN 100,000 UNITS/GM TOPICAL PWD 15 GM TOP ×2 (09:08→20:27)
[2017-06-16] MEDS: EUCERIN 120GM CREAM TOP ×2 (09:09→20:27)
[2017-06-16] MEDS: PRAVASTATIN 20 MG TAB PO (09:12)
[2017-06-16] MEDS: MAGNESIUM OXIDE 400 MG TAB (MAG-OX) PO (09:12)
[2017-06-16] MEDS: PANTOPRAZOLE 40MG TAB (PROTONIX) PO ×2 (09:12→20:28)
[2017-06-16] MEDS: rOPINIRole 1MG TAB PO ×2 (09:12→20:28)
[2017-06-16] MEDS: predniSONE 20 MG TAB PO (09:12)
[2017-06-16] MEDS: ZONISAMIDE 50 MG CAP (ZONEGRAN) PO ×2 (09:14→20:28)
[2017-06-16] MEDS: VANCOMYCIN HCL 1,000 MG, VIAL MATE ADAPTER 1 EACH in D5W 250 ML IV ×2 (09:15→20:26)
[2017-06-16 09:20] LABS: VANCOMYCIN LEVEL TROUGH 14.8 UG/ML (10.0-20.0)
[2017-06-16 11:58] LABS: BEDSIDE GLUCOSE 224 MG/DL (80-115)
[2017-06-16 17:12] LABS: BEDSIDE GLUCOSE 253 MG/DL (80-115)
[2017-06-16] MEDS: SERTRALINE HCL 50 MG TAB PO (20:28)
[2017-06-16 20:46] LABS: BEDSIDE GLUCOSE 254 MG/DL (80-115)
[2017-06-17] MEDS: IPRATROPIUM 0.5MG/ALBUTEROL 2.5MG INH SOL UD 3ML (DUONEB)(J7620) NEB ×6 (04:24→23:07)
[2017-06-17 06:42] LABS: BEDSIDE GLUCOSE 147 MG/DL (80-115)
[2017-06-17] MEDS: SYMBICORT 80/4.5MCG INHALER 6GM INH ×2 (08:07→20:58)
[2017-06-17] MEDS: TIOTROPIUM INHALER/CAPSULE (SPIRIVA) INH (08:07)
[2017-06-17] MEDS: GABAPENTIN 300 MG CAP PO ×3 (09:13→21:25)
[2017-06-17] MEDS: HumaLOG INSULIN (NovoLOG) PER UNIT SC ×4 (09:13→21:10)
[2017-06-17] MEDS: LEVEMIR (INSULIN DETEMIR) 1 UNITS/0.01ML SC ×2 (09:13→21:26)
[2017-06-17] MEDS: VANCOMYCIN HCL 1,000 MG, VIAL MATE ADAPTER 1 EACH in D5W 250 ML IV ×2 (09:13→21:25)
[2017-06-17] MEDS: ATENOLOL 50 MG TAB PO (09:14)
[2017-06-17] MEDS: MAGNESIUM OXIDE 400 MG TAB (MAG-OX) PO (09:14)
[2017-06-17] MEDS: FERROUS SULFATE 325MG TAB PO (09:14)
[2017-06-17] MEDS: predniSONE 20 MG TAB PO (09:15)
[2017-06-17] MEDS: ASPIRIN 81 MG ENTERIC TAB PO (09:15)
[2017-06-17] MEDS: ZONISAMIDE 50 MG CAP (ZONEGRAN) PO ×2 (09:15→21:25)
[2017-06-17] MEDS: ISOSORBIDE MON. (IMDUR) 60 MG XR TAB PO (09:15)
[2017-06-17] MEDS: PRAVASTATIN 20 MG TAB PO (09:15)
[2017-06-17] MEDS: NYSTATIN 500,000 U/5 ML SUSP UDC SS ×4 (09:15→21:26)
[2017-06-17] MEDS: rOPINIRole 1MG TAB PO ×2 (09:15→21:25)
[2017-06-17] MEDS: DIGOXIN 0.125 MG TAB PO (09:15)
[2017-06-17] MEDS: CYANOCOBALAMIN 500 MCG TAB PO (09:15)
[2017-06-17] MEDS: APIXABAN 5 MG TAB (ELIQUIS) PO ×2 (09:15→21:26)
[2017-06-17] MEDS: guaiFENesin ER 600 MG TAB PO ×2 (09:15→21:26)
[2017-06-17] MEDS: EUCERIN 120GM CREAM TOP ×2 (09:16→21:26)
[2017-06-17] MEDS: NYSTATIN 100,000 UNITS/GM TOPICAL PWD 15 GM TOP ×2 (09:16→21:25)
[2017-06-17] MEDS: PANTOPRAZOLE 40MG TAB (PROTONIX) PO ×2 (09:16→21:26)
[2017-06-17 12:04] LABS: BEDSIDE GLUCOSE 194 MG/DL (80-115)
[2017-06-17 12:24] LABS: HEMATOCRIT 29.6 % (42.0-52.0); HEMOGLOBIN 9.2 g/dl (13.5-17.5); MEAN CORPUSCULAR HEMOGLOBIN 32.7 pg (27.0-33.0); MEAN CORPUSCULAR HGB CONC 31.1 g/dl (32.0-36.5); MEAN CORPUSCULAR VOLUME 105.3 fl (80.0-96.0); PLATELET COUNT, AUTOMATED 131 10^3/uL (150-450); RED BLOOD COUNT 2.81 10^6/uL (4.30-6.10); RED CELL DISTRIBUTION WIDTH 17.9 % (11.5-14.5); WHITE BLOOD COUNT 6.6 10^3/uL (4.0-10.0)
[2017-06-17 13:54] LABS: ANION GAP 7 MEQ/L (8-16); BLOOD UREA NITROGEN 21 MG/DL (7-18); CALCIUM LEVEL 8.5 MG/DL (8.8-10.2); CARBON DIOXIDE LEVEL 32 MEQ/L (21-32); CHLORIDE LEVEL 101 MEQ/L (98-107); CREATININE FOR GFR 1.07 MG/DL (0.70-1.30); GLOMERULAR FILTRATION RATE > 60.0 (>49); GLUCOSE, FASTING 199 MG/DL (70-100); POTASSIUM SERUM 4.3 MEQ/L (3.5-5.1); SODIUM LEVEL 140 MEQ/L (136-145)
[2017-06-17 17:22] LABS: BEDSIDE GLUCOSE 266 MG/DL (80-115)
[2017-06-17] MEDS: SERTRALINE HCL 50 MG TAB PO (21:25)
[2017-06-17 21:33] LABS: BEDSIDE GLUCOSE 226 MG/DL (80-115)
[2017-06-18] MEDS: IPRATROPIUM 0.5MG/ALBUTEROL 2.5MG INH SOL UD 3ML (DUONEB)(J7620) NEB ×7 (04:00→23:30)
[2017-06-18 05:11] LABS: HEMATOCRIT 31.7 % (42.0-52.0); HEMOGLOBIN 9.8 g/dl (13.5-17.5); MEAN CORPUSCULAR HEMOGLOBIN 32.2 pg (27.0-33.0); MEAN CORPUSCULAR HGB CONC 30.9 g/dl (32.0-36.5); MEAN CORPUSCULAR VOLUME 104.3 fl (80.0-96.0); PLATELET COUNT, AUTOMATED 141 10^3/uL (150-450); RED BLOOD COUNT 3.04 10^6/uL (4.30-6.10); RED CELL DISTRIBUTION WIDTH 17.9 % (11.5-14.5); WHITE BLOOD COUNT 6.5 10^3/uL (4.0-10.0)
[2017-06-18 05:42] LABS: ANION GAP 8 MEQ/L (8-16); BLOOD UREA NITROGEN 18 MG/DL (7-18); CALCIUM LEVEL 8.9 MG/DL (8.8-10.2); CARBON DIOXIDE LEVEL 31 MEQ/L (21-32); CHLORIDE LEVEL 102 MEQ/L (98-107); CREATININE FOR GFR 1.17 MG/DL (0.70-1.30); GLOMERULAR FILTRATION RATE > 60.0 (>49); GLUCOSE, FASTING 146 MG/DL (70-100); SODIUM LEVEL 141 MEQ/L (136-145)
[2017-06-18] MEDS: TIOTROPIUM INHALER/CAPSULE (SPIRIVA) INH (07:51)
[2017-06-18] MEDS: SYMBICORT 80/4.5MCG INHALER 6GM INH ×2 (07:52→21:25)
[2017-06-18] MEDS: VANCOMYCIN HCL 1,000 MG, VIAL MATE ADAPTER 1 EACH in D5W 250 ML IV ×2 (09:27→21:17)
[2017-06-18] MEDS: predniSONE 20 MG TAB PO (09:28)
[2017-06-18] MEDS: APIXABAN 5 MG TAB (ELIQUIS) PO ×2 (09:28→21:20)
[2017-06-18] MEDS: NYSTATIN 500,000 U/5 ML SUSP UDC SS ×4 (09:28→21:17)
[2017-06-18] MEDS: HumaLOG INSULIN (NovoLOG) PER UNIT SC ×4 (09:28→21:00)
[2017-06-18] MEDS: GABAPENTIN 300 MG CAP PO ×3 (09:28→21:19)
[2017-06-18] MEDS: FERROUS SULFATE 325MG TAB PO (09:28)
[2017-06-18] MEDS: LEVEMIR (INSULIN DETEMIR) 1 UNITS/0.01ML SC ×2 (09:28→21:18)
[2017-06-18] MEDS: PANTOPRAZOLE 40MG TAB (PROTONIX) PO ×2 (09:28→21:20)
[2017-06-18] MEDS: ASPIRIN 81 MG ENTERIC TAB PO (09:28)
[2017-06-18] MEDS: PRAVASTATIN 20 MG TAB PO (09:28)
[2017-06-18] MEDS: guaiFENesin ER 600 MG TAB PO ×2 (09:29→21:19)
[2017-06-18] MEDS: MAGNESIUM OXIDE 400 MG TAB (MAG-OX) PO (09:29)
[2017-06-18] MEDS: NYSTATIN 100,000 UNITS/GM TOPICAL PWD 15 GM TOP ×2 (09:29→21:18)
[2017-06-18] MEDS: rOPINIRole 1MG TAB PO ×2 (09:29→21:19)
[2017-06-18] MEDS: CYANOCOBALAMIN 500 MCG TAB PO (09:29)
[2017-06-18] MEDS: EUCERIN 120GM CREAM TOP ×2 (09:30→21:18)
[2017-06-18] MEDS: ZONISAMIDE 50 MG CAP (ZONEGRAN) PO ×2 (09:36→21:19)
[2017-06-18] MEDS: ATENOLOL 50 MG TAB PO (09:37)
[2017-06-18] MEDS: ISOSORBIDE MON. (IMDUR) 60 MG XR TAB PO (09:38)
[2017-06-18] MEDS: DIGOXIN 0.125 MG TAB PO (09:38)
[2017-06-18 12:02] LABS: BEDSIDE GLUCOSE 170 MG/DL (80-115)
[2017-06-18] MEDS: TORSEMIDE 10 MG TABLET PO (12:18)
[2017-06-18 17:07] LABS: BEDSIDE GLUCOSE 291 MG/DL (80-115)
[2017-06-18] MEDS: SERTRALINE HCL 50 MG TAB PO (21:20)
[2017-06-18 21:26] LABS: BEDSIDE GLUCOSE 244 MG/DL (80-115)
[2017-06-19 06:15] LABS: HEMATOCRIT 30.7 % (42.0-52.0); HEMOGLOBIN 9.4 g/dl (13.5-17.5); MEAN CORPUSCULAR HGB CONC 30.6 g/dl (32.0-36.5); MEAN CORPUSCULAR VOLUME 104.4 fl (80.0-96.0); PLATELET COUNT, AUTOMATED 147 10^3/uL (150-450); RED BLOOD COUNT 2.94 10^6/uL (4.30-6.10); RED CELL DISTRIBUTION WIDTH 17.7 % (11.5-14.5); WHITE BLOOD COUNT 6.9 10^3/uL (4.0-10.0)
[2017-06-19 06:34] LABS: ANION GAP 6 MEQ/L (8-16); BLOOD UREA NITROGEN 17 MG/DL (7-18); CALCIUM LEVEL 8.6 MG/DL (8.8-10.2); CARBON DIOXIDE LEVEL 32 MEQ/L (21-32); CHLORIDE LEVEL 104 MEQ/L (98-107); CREATININE FOR GFR 1.16 MG/DL (0.70-1.30); GLOMERULAR FILTRATION RATE > 60.0 (>49); GLUCOSE, FASTING 166 MG/DL (70-100); POTASSIUM SERUM 3.7 MEQ/L (3.5-5.1); SODIUM LEVEL 142 MEQ/L (136-145)
[2017-06-19 06:36] LABS: VANCOMYCIN LEVEL TROUGH 18.8 UG/ML (10.0-20.0)
[2017-06-19] MEDS: HumaLOG INSULIN (NovoLOG) PER UNIT SC ×4 (07:30→20:42)
[2017-06-19] MEDS: TIOTROPIUM INHALER/CAPSULE (SPIRIVA) INH (07:50)
[2017-06-19] MEDS: SYMBICORT 80/4.5MCG INHALER 6GM INH ×2 (07:50→19:53)
[2017-06-19] MEDS: IPRATROPIUM 0.5MG/ALBUTEROL 2.5MG INH SOL UD 3ML (DUONEB)(J7620) NEB ×4 (07:50→19:55)
[2017-06-19] MEDS: PRAVASTATIN 20 MG TAB PO (08:25)
[2017-06-19] MEDS: GABAPENTIN 300 MG CAP PO ×3 (08:25→21:13)
[2017-06-19] MEDS: FERROUS SULFATE 325MG TAB PO (08:25)
[2017-06-19] MEDS: ATENOLOL 50 MG TAB PO (08:26)
[2017-06-19] MEDS: ASPIRIN 81 MG ENTERIC TAB PO (08:26)
[2017-06-19] MEDS: guaiFENesin ER 600 MG TAB PO ×2 (08:26→21:13)
[2017-06-19] MEDS: CYANOCOBALAMIN 500 MCG TAB PO (08:27)
[2017-06-19] MEDS: predniSONE 20 MG TAB PO (08:27)
[2017-06-19] MEDS: APIXABAN 5 MG TAB (ELIQUIS) PO ×2 (08:27→21:13)
[2017-06-19] MEDS: DIGOXIN 0.125 MG TAB PO (08:27)
[2017-06-19] MEDS: PANTOPRAZOLE 40MG TAB (PROTONIX) PO ×2 (08:27→21:13)
[2017-06-19] MEDS: MAGNESIUM OXIDE 400 MG TAB (MAG-OX) PO (08:27)
[2017-06-19] MEDS: TORSEMIDE 10 MG TABLET PO (08:27)
[2017-06-19] MEDS: rOPINIRole 1MG TAB PO ×2 (08:28→21:13)
[2017-06-19] MEDS: ISOSORBIDE MON. (IMDUR) 60 MG XR TAB PO (08:28)
[2017-06-19] MEDS: VANCOMYCIN HCL 1,000 MG, VIAL MATE ADAPTER 1 EACH in D5W 250 ML IV ×2 (08:28→21:12)
[2017-06-19] MEDS: EUCERIN 120GM CREAM TOP ×2 (08:29→21:00)
[2017-06-19] MEDS: NYSTATIN 500,000 U/5 ML SUSP UDC SS ×4 (08:29→21:13)
[2017-06-19] MEDS: ZONISAMIDE 50 MG CAP (ZONEGRAN) PO ×2 (08:36→21:28)
[2017-06-19] MEDS: LEVEMIR (INSULIN DETEMIR) 1 UNITS/0.01ML SC ×2 (09:00→21:13)
[2017-06-19] MEDS: NYSTATIN 100,000 UNITS/GM TOPICAL PWD 15 GM TOP ×2 (09:14→21:00)
[2017-06-19 11:45] LABS: BEDSIDE GLUCOSE 218 MG/DL (80-115)
[2017-06-19 14:59] LABS: C REACTIVE PROTEIN QUANTITATIV 3.71 MG/DL (0.00-0.30)
[2017-06-19] MEDS: TUBERCULIN PPD 5 UNITS/0.1 ML ID (15:02)
[2017-06-19] MEDS: SODIUM CHLORIDE HYPERTONIC 3% 15ML NEB SOL INH ×2 (15:35→19:55)
[2017-06-19] MEDS ORDERED: PROPOFOL 200 MG/20 ML VIAL As Ordered ×3 (15:44)
[2017-06-19] MEDS ORDERED: KETAMINE HCL 200 MG/20 ML VIAL As Ordered (15:59)
[2017-06-19] MEDS: CETACAINE SPRAY 5GM As Ordered (16:30)
[2017-06-19] MEDS ORDERED: ONDANSETRON 4MG/2ML VIAL (J2405) IV (17:00)
[2017-06-19] MEDS: LR 1,000 ML IV (17:00)
[2017-06-19 17:45] LABS: BEDSIDE GLUCOSE 171 MG/DL (80-115)
[2017-06-19 21:03] LABS: BEDSIDE GLUCOSE 246 MG/DL (80-115)
[2017-06-19] MEDS: SERTRALINE HCL 50 MG TAB PO (21:13)
[2017-06-20] MEDS: IPRATROPIUM 0.5MG/ALBUTEROL 2.5MG INH SOL UD 3ML (DUONEB)(J7620) NEB ×6 (04:00→20:00)
[2017-06-20] MEDS: SODIUM CHLORIDE HYPERTONIC 3% 15ML NEB SOL INH ×6 (04:00→20:00)
[2017-06-20 06:10] LABS: HEMATOCRIT 31.9 % (42.0-52.0); HEMOGLOBIN 9.9 g/dl (13.5-17.5); MEAN CORPUSCULAR HEMOGLOBIN 32.5 pg (27.0-33.0); MEAN CORPUSCULAR VOLUME 104.6 fl (80.0-96.0); PLATELET COUNT, AUTOMATED 175 10^3/uL (150-450); RED BLOOD COUNT 3.05 10^6/uL (4.30-6.10); RED CELL DISTRIBUTION WIDTH 18.1 % (11.5-14.5); WHITE BLOOD COUNT 8.7 10^3/uL (4.0-10.0)
[2017-06-20 06:33] LABS: ANION GAP 8 MEQ/L (8-16); BLOOD UREA NITROGEN 16 MG/DL (7-18); CALCIUM LEVEL 8.6 MG/DL (8.8-10.2); CARBON DIOXIDE LEVEL 31 MEQ/L (21-32); CHLORIDE LEVEL 103 MEQ/L (98-107); CREATININE FOR GFR 1.18 MG/DL (0.70-1.30); GLOMERULAR FILTRATION RATE > 60.0 (>49); GLUCOSE, FASTING 145 MG/DL (70-100); POTASSIUM SERUM 3.5 MEQ/L (3.5-5.1); SODIUM LEVEL 142 MEQ/L (136-145)
[2017-06-20] MEDS: SYMBICORT 80/4.5MCG INHALER 6GM INH ×2 (08:03→19:31)
[2017-06-20] MEDS: TIOTROPIUM INHALER/CAPSULE (SPIRIVA) INH (08:04)
[2017-06-20] MEDS: APIXABAN 5 MG TAB (ELIQUIS) PO ×2 (08:19→21:25)
[2017-06-20] MEDS: HumaLOG INSULIN (NovoLOG) PER UNIT SC ×4 (08:19→21:28)
[2017-06-20] MEDS: GABAPENTIN 300 MG CAP PO ×3 (08:19→21:25)
[2017-06-20] MEDS: CYANOCOBALAMIN 500 MCG TAB PO (08:19)
[2017-06-20] MEDS: NYSTATIN 500,000 U/5 ML SUSP UDC SS ×4 (08:19→21:24)
[2017-06-20] MEDS: ASPIRIN 81 MG ENTERIC TAB PO (08:20)
[2017-06-20] MEDS: LOPERAMIDE 2 MG CAP PO (08:20)
[2017-06-20] MEDS: guaiFENesin ER 600 MG TAB PO ×2 (08:20→21:26)
[2017-06-20] MEDS: predniSONE 5 MG TAB PO (08:20)
[2017-06-20] MEDS: ISOSORBIDE MON. (IMDUR) 60 MG XR TAB PO (08:20)
[2017-06-20] MEDS: FERROUS SULFATE 325MG TAB PO (08:20)
[2017-06-20] MEDS: MAGNESIUM OXIDE 400 MG TAB (MAG-OX) PO (08:20)
[2017-06-20] MEDS: PANTOPRAZOLE 40MG TAB (PROTONIX) PO ×2 (08:20→21:25)
[2017-06-20] MEDS: PRAVASTATIN 20 MG TAB PO (08:21)
[2017-06-20] MEDS: rOPINIRole 1MG TAB PO ×2 (08:21→21:25)
[2017-06-20] MEDS: TORSEMIDE 10 MG TABLET PO (08:21)
[2017-06-20] MEDS: DIGOXIN 0.125 MG TAB PO (08:21)
[2017-06-20] MEDS: LEVEMIR (INSULIN DETEMIR) 1 UNITS/0.01ML SC ×2 (08:22→21:27)
[2017-06-20] MEDS: ATENOLOL 50 MG TAB PO (08:22)
[2017-06-20] MEDS: EUCERIN 120GM CREAM TOP ×2 (08:23→21:28)
[2017-06-20] MEDS: VANCOMYCIN HCL 1,000 MG, VIAL MATE ADAPTER 1 EACH in D5W 250 ML IV ×2 (08:23→21:28)
[2017-06-20] MEDS: NYSTATIN 100,000 UNITS/GM TOPICAL PWD 15 GM TOP ×2 (08:24→21:28)
[2017-06-20] MEDS: ZONISAMIDE 50 MG CAP (ZONEGRAN) PO ×2 (08:29→21:28)
[2017-06-20 11:51] LABS: BEDSIDE GLUCOSE 348 MG/DL (80-115)
[2017-06-20 16:56] LABS: BEDSIDE GLUCOSE 312 MG/DL (80-115)
[2017-06-20 20:18] LABS: BEDSIDE GLUCOSE 306 MG/DL (80-115)
[2017-06-20] MEDS: SERTRALINE HCL 50 MG TAB PO (21:25)
[2017-06-21] MEDS: IPRATROPIUM 0.5MG/ALBUTEROL 2.5MG INH SOL UD 3ML (DUONEB)(J7620) NEB ×6 (03:36→20:40)
[2017-06-21] MEDS: SODIUM CHLORIDE HYPERTONIC 3% 15ML NEB SOL INH ×6 (03:36→20:00)
[2017-06-21 05:21] LABS: HEMATOCRIT 30.7 % (42.0-52.0); HEMOGLOBIN 9.6 g/dl (13.5-17.5); MEAN CORPUSCULAR HEMOGLOBIN 32.7 pg (27.0-33.0); MEAN CORPUSCULAR HGB CONC 31.3 g/dl (32.0-36.5); MEAN CORPUSCULAR VOLUME 104.4 fl (80.0-96.0); PLATELET COUNT, AUTOMATED 167 10^3/uL (150-450); RED BLOOD COUNT 2.94 10^6/uL (4.30-6.10); RED CELL DISTRIBUTION WIDTH 18.3 % (11.5-14.5); WHITE BLOOD COUNT 9.8 10^3/uL (4.0-10.0)
[2017-06-21 05:36] LABS: ANION GAP 7 MEQ/L (8-16); BLOOD UREA NITROGEN 15 MG/DL (7-18); CALCIUM LEVEL 8.7 MG/DL (8.8-10.2); CARBON DIOXIDE LEVEL 33 MEQ/L (21-32); CHLORIDE LEVEL 104 MEQ/L (98-107); CREATININE FOR GFR 1.07 MG/DL (0.70-1.30); GLOMERULAR FILTRATION RATE > 60.0 (>49); GLUCOSE, FASTING 118 MG/DL (70-100); POTASSIUM SERUM 3.5 MEQ/L (3.5-5.1); SODIUM LEVEL 144 MEQ/L (136-145)
[2017-06-21] MEDS: SYMBICORT 80/4.5MCG INHALER 6GM INH ×2 (07:36→21:00)
[2017-06-21] MEDS: TIOTROPIUM INHALER/CAPSULE (SPIRIVA) INH (07:36)
[2017-06-21] MEDS: HumaLOG INSULIN (NovoLOG) PER UNIT SC ×4 (08:04→20:48)
[2017-06-21] MEDS: LEVEMIR (INSULIN DETEMIR) 1 UNITS/0.01ML SC ×2 (08:04→20:49)
[2017-06-21] MEDS: VANCOMYCIN HCL 1,000 MG, VIAL MATE ADAPTER 1 EACH in D5W 250 ML IV ×2 (08:05→20:49)
[2017-06-21] MEDS: rOPINIRole 1MG TAB PO ×2 (08:05→20:47)
[2017-06-21] MEDS: CYANOCOBALAMIN 500 MCG TAB PO (08:05)
[2017-06-21] MEDS: FERROUS SULFATE 325MG TAB PO (08:05)
[2017-06-21] MEDS: ZONISAMIDE 50 MG CAP (ZONEGRAN) PO ×2 (08:05→20:48)
[2017-06-21] MEDS: NYSTATIN 500,000 U/5 ML SUSP UDC SS ×4 (08:05→20:48)
[2017-06-21] MEDS: MAGNESIUM OXIDE 400 MG TAB (MAG-OX) PO (08:05)
[2017-06-21] MEDS: ASPIRIN 81 MG ENTERIC TAB PO (08:06)
[2017-06-21] MEDS: DIGOXIN 0.125 MG TAB PO (08:06)
[2017-06-21] MEDS: ATENOLOL 50 MG TAB PO (08:06)
[2017-06-21] MEDS: PANTOPRAZOLE 40MG TAB (PROTONIX) PO ×2 (08:06→20:47)
[2017-06-21] MEDS: APIXABAN 5 MG TAB (ELIQUIS) PO ×2 (08:06→20:47)
[2017-06-21] MEDS: predniSONE 5 MG TAB PO (08:07)
[2017-06-21] MEDS: TORSEMIDE 10 MG TABLET PO (08:07)
[2017-06-21] MEDS: guaiFENesin ER 600 MG TAB PO ×2 (08:07→20:47)
[2017-06-21] MEDS: PRAVASTATIN 20 MG TAB PO (08:07)
[2017-06-21] MEDS: GABAPENTIN 300 MG CAP PO ×3 (08:07→20:47)
[2017-06-21] MEDS: ISOSORBIDE MON. (IMDUR) 60 MG XR TAB PO (08:08)
[2017-06-21] MEDS: EUCERIN 120GM CREAM TOP ×2 (08:08→20:49)
[2017-06-21] MEDS: NYSTATIN 100,000 UNITS/GM TOPICAL PWD 15 GM TOP ×2 (08:08→20:50)
[2017-06-21] MEDS: PPD DOCUMENTATION ENTRY MISC XX (10:00)
[2017-06-21 11:41] LABS: BEDSIDE GLUCOSE 229 MG/DL (80-115)
[2017-06-21 16:52] LABS: BEDSIDE GLUCOSE 352 MG/DL (80-115)
[2017-06-21 20:25] LABS: BEDSIDE GLUCOSE 177 MG/DL (80-115)
[2017-06-21] MEDS: SERTRALINE HCL 50 MG TAB PO (20:47)
[2017-06-21] MEDS: SODIUM CHLORIDE 0.9% INJ 10 ML SYR IV (23:56)
[2017-06-22] MEDS: IPRATROPIUM 0.5MG/ALBUTEROL 2.5MG INH SOL UD 3ML (DUONEB)(J7620) NEB ×6 (04:00→20:00)
[2017-06-22] MEDS: SODIUM CHLORIDE HYPERTONIC 3% 15ML NEB SOL INH ×6 (04:00→20:00)
[2017-06-22] MEDS: SODIUM CHLORIDE 0.9% INJ 10 ML SYR IV ×4 (05:36→22:00)
[2017-06-22 05:47] LABS: HEMATOCRIT 31.5 % (42.0-52.0); HEMOGLOBIN 9.8 g/dl (13.5-17.5); MEAN CORPUSCULAR HEMOGLOBIN 32.7 pg (27.0-33.0); MEAN CORPUSCULAR HGB CONC 31.1 g/dl (32.0-36.5); PLATELET COUNT, AUTOMATED 167 10^3/uL (150-450); RED CELL DISTRIBUTION WIDTH 18.4 % (11.5-14.5); WHITE BLOOD COUNT 6.9 10^3/uL (4.0-10.0)
[2017-06-22 06:03] LABS: ANION GAP 6 MEQ/L (8-16); BLOOD UREA NITROGEN 17 MG/DL (7-18); CALCIUM LEVEL 9.1 MG/DL (8.8-10.2); CARBON DIOXIDE LEVEL 32 MEQ/L (21-32); CHLORIDE LEVEL 103 MEQ/L (98-107); CREATININE FOR GFR 1.34 MG/DL (0.70-1.30); GLOMERULAR FILTRATION RATE 57.1 (>49); GLUCOSE, FASTING 148 MG/DL (70-100); POTASSIUM SERUM 3.6 MEQ/L (3.5-5.1); SODIUM LEVEL 141 MEQ/L (136-145)
[2017-06-22] MEDS: SYMBICORT 80/4.5MCG INHALER 6GM INH ×2 (08:06→20:54)
[2017-06-22] MEDS: TIOTROPIUM INHALER/CAPSULE (SPIRIVA) INH (08:06)
[2017-06-22] MEDS: HumaLOG INSULIN (NovoLOG) PER UNIT SC ×4 (08:51→21:38)
[2017-06-22] MEDS: PANTOPRAZOLE 40MG TAB (PROTONIX) PO ×2 (08:52→20:37)
[2017-06-22] MEDS: GABAPENTIN 300 MG CAP PO ×3 (08:52→20:37)
[2017-06-22] MEDS: VANCOMYCIN HCL 1,000 MG, VIAL MATE ADAPTER 1 EACH in D5W 250 ML IV ×2 (08:52→20:38)
[2017-06-22] MEDS: rOPINIRole 1MG TAB PO ×2 (08:52→20:37)
[2017-06-22] MEDS: guaiFENesin ER 600 MG TAB PO ×2 (08:52→20:37)
[2017-06-22] MEDS: ISOSORBIDE MON. (IMDUR) 60 MG XR TAB PO (08:53)
[2017-06-22] MEDS: CYANOCOBALAMIN 500 MCG TAB PO (08:53)
[2017-06-22] MEDS: ASPIRIN 81 MG ENTERIC TAB PO (08:53)
[2017-06-22] MEDS: PRAVASTATIN 20 MG TAB PO (08:53)
[2017-06-22] MEDS: ZONISAMIDE 50 MG CAP (ZONEGRAN) PO ×2 (08:53→20:37)
[2017-06-22] MEDS: NYSTATIN 500,000 U/5 ML SUSP UDC SS (08:53)
[2017-06-22] MEDS: APIXABAN 5 MG TAB (ELIQUIS) PO ×2 (08:54→20:37)
[2017-06-22] MEDS: ATENOLOL 50 MG TAB PO (08:54)
[2017-06-22] MEDS: DIGOXIN 0.125 MG TAB PO (08:54)
[2017-06-22] MEDS: FERROUS SULFATE 325MG TAB PO (08:55)
[2017-06-22] MEDS: TORSEMIDE 10 MG TABLET PO (08:55)
[2017-06-22] MEDS: predniSONE 5 MG TAB PO (08:55)
[2017-06-22] MEDS: MAGNESIUM OXIDE 400 MG TAB (MAG-OX) PO (08:55)
[2017-06-22] MEDS: EUCERIN 120GM CREAM TOP ×2 (08:56→20:38)
[2017-06-22] MEDS: LEVEMIR (INSULIN DETEMIR) 1 UNITS/0.01ML SC ×2 (08:56→20:39)
[2017-06-22] MEDS: NYSTATIN 100,000 UNITS/GM TOPICAL PWD 15 GM TOP ×2 (08:56→20:38)
[2017-06-22 11:50] LABS: BEDSIDE GLUCOSE 202 MG/DL (80-115)
[2017-06-22 16:57] LABS: BEDSIDE GLUCOSE 284 MG/DL (80-115)
[2017-06-22 19:55] LABS: BEDSIDE GLUCOSE 301 MG/DL (80-115)
[2017-06-22] MEDS: SERTRALINE HCL 50 MG TAB PO (20:37)
[2017-06-22 21:06] LABS: VANCOMYCIN LEVEL TROUGH 17.4 UG/ML (10.0-20.0)
[2017-06-23] MEDS: IPRATROPIUM 0.5MG/ALBUTEROL 2.5MG INH SOL UD 3ML (DUONEB)(J7620) NEB ×7 (00:01→23:25)
[2017-06-23] MEDS: SODIUM CHLORIDE HYPERTONIC 3% 15ML NEB SOL INH ×7 (04:00→23:25)
[2017-06-23] MEDS: SODIUM CHLORIDE 0.9% INJ 10 ML SYR IV ×3 (06:00→21:39)
[2017-06-23 06:40] LABS: BEDSIDE GLUCOSE 163 MG/DL (80-115)
[2017-06-23] MEDS: SYMBICORT 80/4.5MCG INHALER 6GM INH ×2 (08:15→21:00)
[2017-06-23] MEDS: TIOTROPIUM INHALER/CAPSULE (SPIRIVA) INH (08:20)
[2017-06-23] MEDS: NYSTATIN 100,000 UNITS/GM TOPICAL PWD 15 GM TOP ×2 (09:00→21:00)
[2017-06-23] MEDS: ASPIRIN 81 MG ENTERIC TAB PO (09:15)
[2017-06-23] MEDS: LEVEMIR (INSULIN DETEMIR) 1 UNITS/0.01ML SC ×2 (09:15→21:00)
[2017-06-23] MEDS: HumaLOG INSULIN (NovoLOG) PER UNIT SC ×4 (09:15→21:00)
[2017-06-23] MEDS: ISOSORBIDE MON. (IMDUR) 60 MG XR TAB PO (09:15)
[2017-06-23] MEDS: PRAVASTATIN 20 MG TAB PO (09:15)
[2017-06-23] MEDS: rOPINIRole 1MG TAB PO ×2 (09:16→21:37)
[2017-06-23] MEDS: guaiFENesin ER 600 MG TAB PO ×2 (09:16→21:37)
[2017-06-23] MEDS: ZONISAMIDE 50 MG CAP (ZONEGRAN) PO ×2 (09:16→21:38)
[2017-06-23] MEDS: DIGOXIN 0.125 MG TAB PO (09:16)
[2017-06-23] MEDS: predniSONE 5 MG TAB PO (09:17)
[2017-06-23] MEDS: APIXABAN 5 MG TAB (ELIQUIS) PO ×2 (09:17→21:38)
[2017-06-23] MEDS: ATENOLOL 50 MG TAB PO (09:17)
[2017-06-23] MEDS: MAGNESIUM OXIDE 400 MG TAB (MAG-OX) PO (09:17)
[2017-06-23] MEDS: CYANOCOBALAMIN 500 MCG TAB PO (09:17)
[2017-06-23] MEDS: GABAPENTIN 300 MG CAP PO ×3 (09:18→21:38)
[2017-06-23] MEDS: EUCERIN 120GM CREAM TOP ×2 (09:18→21:00)
[2017-06-23] MEDS: FERROUS SULFATE 325MG TAB PO (09:18)
[2017-06-23] MEDS: PANTOPRAZOLE 40MG TAB (PROTONIX) PO ×2 (09:18→21:38)
[2017-06-23] MEDS: VANCOMYCIN HCL 1,000 MG, VIAL MATE ADAPTER 1 EACH in D5W 250 ML IV ×2 (09:18→21:38)
[2017-06-23] MEDS: TORSEMIDE 10 MG TABLET PO (09:20)
[2017-06-23 09:41] LABS: BEDSIDE GLUCOSE 149 MG/DL (80-115)
[2017-06-23 10:44] LABS: ABG BASE EXCESS 7.1 (-2.0-2.0); ABG HCO3 32.7 MEQ/L (22.0-26.0); ABG PARTIAL PRESSURE CO2 51.8 mmHg (35.0-45.0); ABG PARTIAL PRESSURE O2 72.5 mmHg (75.0-100.0); ABG SITE LT RADIAL; ABG STANDARD HCO3 30.8 MEQ/L (22.0-26.0); ABG TOTAL CO2 34.3 MEQ/L (23.0-31.0); ABG pH (ARTERIAL) 7.418 UNITS (7.350-7.450)
[2017-06-23 11:04] LABS: CK-MB VALUE MASS 1.6 NG/ML (<3.6); CPK CREATINE PHOSPHOKINASE 25 U/L (39-308); TROPONIN I 0.04 NG/ML (< 0.10)
[2017-06-23] MEDS ORDERED: ISOVUE-370 76% 100ML VIAL (Q9967) As Ordered (11:27)
[2017-06-23 13:11] LABS: BEDSIDE GLUCOSE 199 MG/DL (80-115)
[2017-06-23 17:40] LABS: KETONE, URINE AUTO RFX NEGATIVE (NEGATIVE); LEUKOCYTE ESTERASE UR AUTO RFX NEGATIVE (NEGATIVE); NITRITE, URINE AUTO RFX NEGATIVE (NEGATIVE); RBC, URINE AUTO RFX 0 /HPF (0-3); SPECIFIC GRAVITY UR AUTO RFX 1.021 (1.002-1.035); SQUAM EPITHELIAL CELL UR AURFX 0 /HPF (0-6); WBC, URINE AUTO RFX 0 /HPF (0-3)
[2017-06-23 17:44] LABS: BEDSIDE GLUCOSE 234 MG/DL (80-115)
[2017-06-23 18:30] LABS: CPK CREATINE PHOSPHOKINASE 24 U/L (39-308); TROPONIN I 0.03 NG/ML (< 0.10)
[2017-06-23 18:31] LABS: CK-MB VALUE MASS 1.5 NG/ML (<3.6); MB/CK RELATIVE INDEX 6.25 (< OR =4)
[2017-06-23 21:14] LABS: BEDSIDE GLUCOSE 215 MG/DL (80-115)
[2017-06-23] MEDS: SERTRALINE HCL 50 MG TAB PO (21:38)
[2017-06-24 00:19] LABS: CPK CREATINE PHOSPHOKINASE 30 U/L (39-308); TROPONIN I 0.03 NG/ML (< 0.10)
[2017-06-24 00:20] LABS: CK-MB VALUE MASS 2.1 NG/ML (<3.6)
[2017-06-24] MEDS: IPRATROPIUM 0.5MG/ALBUTEROL 2.5MG INH SOL UD 3ML (DUONEB)(J7620) NEB ×5 (04:00→20:00)
[2017-06-24] MEDS: SODIUM CHLORIDE HYPERTONIC 3% 15ML NEB SOL INH ×5 (04:00→20:00)
[2017-06-24] MEDS: SODIUM CHLORIDE 0.9% INJ 10 ML SYR IV ×3 (05:40→21:56)
[2017-06-24 07:14] LABS: BEDSIDE GLUCOSE 169 MG/DL (80-115)
[2017-06-24] MEDS: SYMBICORT 80/4.5MCG INHALER 6GM INH ×2 (07:40→21:00)
[2017-06-24] MEDS: TIOTROPIUM INHALER/CAPSULE (SPIRIVA) INH (07:40)
[2017-06-24 08:21] LABS: BASO % 0.2 % (0.0-1.0); EOS # 0.1 10^3/uL (0.0-0.50); EOS % 0.6 % (0.0-3.0); HEMATOCRIT 30.8 % (42.0-52.0); HEMOGLOBIN 9.6 g/dl (13.5-17.5); IMMATURE GRANULOCYTE % 1.9 % (0-3.0); LYMPH % 8.3 % (24.0-44.0); MEAN CORPUSCULAR HEMOGLOBIN 32.9 pg (27.0-33.0); MEAN CORPUSCULAR HGB CONC 31.2 g/dl (32.0-36.5); MEAN CORPUSCULAR VOLUME 105.5 fl (80.0-96.0); MONO # 0.4 10^3/uL (0.0-0.8); MONO % 3.4 % (0.0-5.0); NEUTROPHILS # 10.6 10^3/uL (1.8-7.7); NEUTROPHILS % 85.6 % (36.0-66.0); PLATELET COUNT, AUTOMATED 166 10^3/uL (150-450); RED BLOOD COUNT 2.92 10^6/uL (4.30-6.10); RED CELL DISTRIBUTION WIDTH 18.6 % (11.5-14.5); WHITE BLOOD COUNT 12.4 10^3/uL (4.0-10.0)
[2017-06-24 09:06] LABS: ALBUMIN 2.7 GM/DL (3.2-5.2); ALBUMIN/GLOBULIN RATIO 0.82 (1.00-1.93); ALKALINE PHOSPHATASE 82 U/L (45-117); ALT/SGPT 52 U/L (12-78); ANION GAP 5 MEQ/L (8-16); AST/SGOT 45 U/L (7-37); BILIRUBIN,TOTAL 0.5 MG/DL (0.2-1.0); BLOOD UREA NITROGEN 18 MG/DL (7-18); CALCIUM LEVEL 8.4 MG/DL (8.8-10.2); CARBON DIOXIDE LEVEL 34 MEQ/L (21-32); CHLORIDE LEVEL 101 MEQ/L (98-107); CREATININE FOR GFR 1.17 MG/DL (0.70-1.30); GLOMERULAR FILTRATION RATE > 60.0 (>49); GLUCOSE, FASTING 178 MG/DL (70-100); SODIUM LEVEL 140 MEQ/L (136-145)
[2017-06-24] MEDS: VANCOMYCIN HCL 1,000 MG, VIAL MATE ADAPTER 1 EACH in D5W 250 ML IV ×2 (11:04→21:55)
[2017-06-24] MEDS: APIXABAN 5 MG TAB (ELIQUIS) PO ×2 (11:05→21:55)
[2017-06-24] MEDS: GABAPENTIN 300 MG CAP PO ×3 (11:05→21:55)
[2017-06-24] MEDS: HumaLOG INSULIN (NovoLOG) PER UNIT SC ×4 (11:05→21:00)
[2017-06-24] MEDS: LEVEMIR (INSULIN DETEMIR) 1 UNITS/0.01ML SC ×2 (11:05→21:00)
[2017-06-24] MEDS: ASPIRIN 81 MG ENTERIC TAB PO (11:06)
[2017-06-24] MEDS: CYANOCOBALAMIN 500 MCG TAB PO (11:06)
[2017-06-24] MEDS: predniSONE 5 MG TAB PO (11:06)
[2017-06-24] MEDS: guaiFENesin ER 600 MG TAB PO ×2 (11:06→21:55)
[2017-06-24] MEDS: rOPINIRole 1MG TAB PO ×2 (11:06→21:55)
[2017-06-24] MEDS: TORSEMIDE 10 MG TABLET PO (11:06)
[2017-06-24] MEDS: ISOSORBIDE MON. (IMDUR) 60 MG XR TAB PO (11:07)
[2017-06-24] MEDS: PANTOPRAZOLE 40MG TAB (PROTONIX) PO ×2 (11:07→21:55)
[2017-06-24] MEDS: PRAVASTATIN 20 MG TAB PO (11:07)
[2017-06-24] MEDS: MAGNESIUM OXIDE 400 MG TAB (MAG-OX) PO (11:07)
[2017-06-24] MEDS: FERROUS SULFATE 325MG TAB PO (11:07)
[2017-06-24] MEDS: ATENOLOL 50 MG TAB PO (11:08)
[2017-06-24] MEDS: DIGOXIN 0.125 MG TAB PO (11:09)
[2017-06-24] MEDS: EUCERIN 120GM CREAM TOP ×2 (11:13→21:00)
[2017-06-24] MEDS: NYSTATIN 100,000 UNITS/GM TOPICAL PWD 15 GM TOP ×2 (11:14→21:00)
[2017-06-24 12:28] LABS: BEDSIDE GLUCOSE 250 MG/DL (80-115)
[2017-06-24] MEDS: ZONISAMIDE 50 MG CAP (ZONEGRAN) PO ×2 (12:46→21:55)
[2017-06-24 17:07] LABS: BEDSIDE GLUCOSE 322 MG/DL (80-115)
[2017-06-24 21:31] LABS: BEDSIDE GLUCOSE 221 MG/DL (80-115)
[2017-06-24] MEDS: SERTRALINE HCL 50 MG TAB PO (21:55)
[2017-06-25] MEDS: SODIUM CHLORIDE HYPERTONIC 3% 15ML NEB SOL INH ×3 (03:40→10:03)
[2017-06-25] MEDS: IPRATROPIUM 0.5MG/ALBUTEROL 2.5MG INH SOL UD 3ML (DUONEB)(J7620) NEB ×4 (03:41→11:22)
[2017-06-25] MEDS: SODIUM CHLORIDE 0.9% INJ 10 ML SYR IV (05:31)
[2017-06-25 05:42] LABS: BASO % 0.2 % (0.0-1.0); EOS # 0.1 10^3/uL (0.0-0.50); EOS % 1.1 % (0.0-3.0); HEMATOCRIT 28.3 % (42.0-52.0); HEMOGLOBIN 8.8 g/dl (13.5-17.5); IMMATURE GRANULOCYTE % 3.5 % (0-3.0); LYMPH # 1.2 10^3/uL (1.5-4.5); LYMPH % 14.3 % (24.0-44.0); MEAN CORPUSCULAR HEMOGLOBIN 32.7 pg (27.0-33.0); MEAN CORPUSCULAR HGB CONC 31.1 g/dl (32.0-36.5); MEAN CORPUSCULAR VOLUME 105.2 fl (80.0-96.0); MONO # 0.4 10^3/uL (0.0-0.8); MONO % 4.4 % (0.0-5.0); NEUTROPHILS # 6.6 10^3/uL (1.8-7.7); NEUTROPHILS % 76.5 % (36.0-66.0); PLATELET COUNT, AUTOMATED 155 10^3/uL (150-450); RED BLOOD COUNT 2.69 10^6/uL (4.30-6.10); RED CELL DISTRIBUTION WIDTH 18.2 % (11.5-14.5); WHITE BLOOD COUNT 8.6 10^3/uL (4.0-10.0)
[2017-06-25 07:07] LABS: BEDSIDE GLUCOSE 128 MG/DL (80-115)
[2017-06-25] MEDS: VANCOMYCIN HCL 1,000 MG, VIAL MATE ADAPTER 1 EACH in D5W 250 ML IV (09:18)
[2017-06-25] MEDS: EUCERIN 120GM CREAM TOP (09:19)
[2017-06-25] MEDS: HumaLOG INSULIN (NovoLOG) PER UNIT SC (09:19)
[2017-06-25] MEDS: LEVEMIR (INSULIN DETEMIR) 1 UNITS/0.01ML SC (09:19)
[2017-06-25] MEDS: rOPINIRole 1MG TAB PO (09:20)
[2017-06-25] MEDS: TORSEMIDE 10 MG TABLET PO (09:20)
[2017-06-25] MEDS: GABAPENTIN 300 MG CAP PO (09:20)
[2017-06-25] MEDS: guaiFENesin ER 600 MG TAB PO (09:20)
[2017-06-25] MEDS: predniSONE 5 MG TAB PO (09:20)
[2017-06-25] MEDS: ISOSORBIDE MON. (IMDUR) 60 MG XR TAB PO (09:24)
[2017-06-25] MEDS: CYANOCOBALAMIN 500 MCG TAB PO (09:25)
[2017-06-25] MEDS: ATENOLOL 50 MG TAB PO (09:25)
[2017-06-25] MEDS: PRAVASTATIN 20 MG TAB PO (09:26)
[2017-06-25] MEDS: APIXABAN 5 MG TAB (ELIQUIS) PO (09:26)
[2017-06-25] MEDS: FERROUS SULFATE 325MG TAB PO (09:26)
[2017-06-25] MEDS: ASPIRIN 81 MG ENTERIC TAB PO (09:26)
[2017-06-25] MEDS: PANTOPRAZOLE 40MG TAB (PROTONIX) PO (09:26)
[2017-06-25] MEDS: DIGOXIN 0.125 MG TAB PO (09:26)
[2017-06-25] MEDS: MAGNESIUM OXIDE 400 MG TAB (MAG-OX) PO (09:27)
[2017-06-25] MEDS: NYSTATIN 100,000 UNITS/GM TOPICAL PWD 15 GM TOP (09:27)
[2017-06-25] MEDS: ZONISAMIDE 50 MG CAP (ZONEGRAN) PO (09:37)
[2017-06-25] MEDS: SYMBICORT 80/4.5MCG INHALER 6GM INH (10:00)
[2017-06-25] MEDS: TIOTROPIUM INHALER/CAPSULE (SPIRIVA) INH (10:01)
== END 2017-06-25 12:15 | DRG 871 ==
LOC: M ED INP 06-10 00:42 → M ICU 06-14 09:32 → M MSPAV 06-10 02:37 → M ED 21:39
PROC: B24BZZ4 Ultrasonography of Heart with Aorta, Transesophageal (ICD-10-PCS; 2017-06-19 10:28)
PROC: 02HV33Z Insertion of Infusion Device into Superior Vena Cava, Percutaneous Approach (ICD-10-PCS; principal; 2017-06-19 16:25)
DX: A41.9 Sepsis, unspecified organism (principal); J96.01 Acute respiratory failure with hypoxia; J15.212 Pneumonia due to Methicillin resistant Staphylococcus aureus; R65.21 Severe sepsis with septic shock; I50.33 Acute on chronic diastolic (congestive) heart failure; J44.1 Chronic obstructive pulmonary disease with (acute) exacerbation; E87.2 Acidosis; E27.40 Unspecified adrenocortical insufficiency; D80.1 Nonfamilial hypogammaglobulinemia; J44.0 Chronic obstructive pulmonary disease with (acute) lower respiratory infection; Z66 Do not resuscitate; N18.3 Chronic kidney disease, stage 3 (moderate); K21.9 Gastro-esophageal reflux disease without esophagitis; I48.91 Unspecified atrial fibrillation; G47.33 Obstructive sleep apnea (adult) (pediatric); G25.81 Restless legs syndrome; I95.9 Hypotension, unspecified; E11.9 Type 2 diabetes mellitus without complications; F32.9 Major depressive disorder, single episode, unspecified; Z79.82 Long term (current) use of aspirin; Z79.01 Long term (current) use of anticoagulants; Z79.4 Long term (current) use of insulin; Z79.52 Long term (current) use of systemic steroids; Z79.899 Other long term (current) drug therapy; Z88.8 Allergy status to other drugs, medicaments and biological substances; Z85.118 Personal history of other malignant neoplasm of bronchus and lung; Z90.5 Acquired absence of kidney; Y95 Nosocomial condition; Z92.3 Personal history of irradiation

== ENCOUNTER → 2017-06-27 | Outpatient (REF) | payer MEDICARE, MEDICAID | DX: R19.7 Diarrhea, unspecified (principal) | CPT/HCPCS: 87493 ==

== ENCOUNTER → 2017-06-29 | Outpatient (REF) ==
[2017-06-29 17:11] LABS: HEMATOCRIT 33.5 % (42.0-52.0); HEMOGLOBIN 10.2 g/dl (13.5-17.5); MEAN CORPUSCULAR HEMOGLOBIN 32.5 pg (27.0-33.0); MEAN CORPUSCULAR HGB CONC 30.4 g/dl (32.0-36.5); MEAN CORPUSCULAR VOLUME 106.7 fl (80.0-96.0); PLATELET COUNT, AUTOMATED 219 10^3/uL (150-450); RED BLOOD COUNT 3.14 10^6/uL (4.30-6.10); RED CELL DISTRIBUTION WIDTH 18.5 % (11.5-14.5); WHITE BLOOD COUNT 8.2 10^3/uL (4.0-10.0)
[2017-06-29 17:30] LABS: ANION GAP 11 MEQ/L (8-16); BLOOD UREA NITROGEN 18 MG/DL (7-18); CALCIUM LEVEL 8.3 MG/DL (8.8-10.2); CARBON DIOXIDE LEVEL 29 MEQ/L (21-32); CHLORIDE LEVEL 100 MEQ/L (98-107); CREATININE FOR GFR 1.62 MG/DL (0.70-1.30); GLOMERULAR FILTRATION RATE 45.9 (>49); GLUCOSE, FASTING 240 MG/DL (70-100); POTASSIUM SERUM 4.1 MEQ/L (3.5-5.1); SODIUM LEVEL 140 MEQ/L (136-145)
[2017-06-29 18:03] LABS: ESTIMATED AVERAGE GLUCOSE 169 MG/DL (60-110); HEMOGLOBIN A1c 7.5 %
== END ==
DX: I48.91 Unspecified atrial fibrillation (principal)

== ENCOUNTER → 2017-07-01 | Outpatient (REF) ==
[2017-07-01 12:58] LABS: ANION GAP 8 MEQ/L (8-16); BLOOD UREA NITROGEN 16 MG/DL (7-18); CALCIUM LEVEL 8.5 MG/DL (8.8-10.2); CARBON DIOXIDE LEVEL 31 MEQ/L (21-32); CHLORIDE LEVEL 102 MEQ/L (98-107); CREATININE FOR GFR 1.58 MG/DL (0.70-1.30); GLOMERULAR FILTRATION RATE 47.2 (>49); GLUCOSE, FASTING 227 MG/DL (70-100); POTASSIUM SERUM 3.9 MEQ/L (3.5-5.1); SODIUM LEVEL 141 MEQ/L (136-145)
== END ==
DX: Z85.528 Personal history of other malignant neoplasm of kidney (principal)

== ENCOUNTER → 2017-07-03 | Outpatient (REF) ==
[2017-07-03 07:28] LABS: HEMATOCRIT 32.4 % (42.0-52.0); HEMOGLOBIN 9.9 g/dl (13.5-17.5); MEAN CORPUSCULAR HEMOGLOBIN 32.7 pg (27.0-33.0); MEAN CORPUSCULAR HGB CONC 30.6 g/dl (32.0-36.5); MEAN CORPUSCULAR VOLUME 106.9 fl (80.0-96.0); PLATELET COUNT, AUTOMATED 173 10^3/uL (150-450); RED BLOOD COUNT 3.03 10^6/uL (4.30-6.10); RED CELL DISTRIBUTION WIDTH 18.7 % (11.5-14.5); WHITE BLOOD COUNT 5.4 10^3/uL (4.0-10.0)
[2017-07-03 07:34] LABS: ANION GAP 6 MEQ/L (8-16); BLOOD UREA NITROGEN 20 MG/DL (7-18); CALCIUM LEVEL 8.6 MG/DL (8.8-10.2); CARBON DIOXIDE LEVEL 32 MEQ/L (21-32); CHLORIDE LEVEL 107 MEQ/L (98-107); CREATININE FOR GFR 1.53 MG/DL (0.70-1.30); GLUCOSE, FASTING 139 MG/DL (70-100); POTASSIUM SERUM 3.9 MEQ/L (3.5-5.1); SODIUM LEVEL 145 MEQ/L (136-145)
== END ==
DX: I48.91 Unspecified atrial fibrillation (principal)

== ENCOUNTER → 2017-07-07 | Outpatient (REF) ==
[2017-07-07 09:47] LABS: ANION GAP 11 MEQ/L (8-16); BLOOD UREA NITROGEN 26 MG/DL (7-18); CALCIUM LEVEL 8.7 MG/DL (8.8-10.2); CARBON DIOXIDE LEVEL 27 MEQ/L (21-32); CHLORIDE LEVEL 103 MEQ/L (98-107); CREATININE FOR GFR 1.74 MG/DL (0.70-1.30); GLOMERULAR FILTRATION RATE 42.3 (>49); GLUCOSE, FASTING 160 MG/DL (70-100); POTASSIUM SERUM 4.1 MEQ/L (3.5-5.1); SODIUM LEVEL 141 MEQ/L (136-145)
== END ==
DX: N17.9 Acute kidney failure, unspecified (principal)

== ENCOUNTER 2017-07-10 15:14 | Inpatient (IN) | payer MEDICARE, MEDICAID ==
[2017-07-10] MEDS: FUROSEMIDE 100 MG/10 ML VIAL (J1940) IV (15:54)
[2017-07-10] MEDS: NITROGLYCERIN 0.4 MG SUBL TABLET SL ×2 (15:54→16:01)
[2017-07-10 15:57] LABS: ABG BASE EXCESS 3.4 (-2.0-2.0); ABG HCO3 30.1 MEQ/L (22.0-26.0); ABG O2 SATURATION 91.7 % (95.0-99.0); ABG PARTIAL PRESSURE CO2 55.3 mmHg (35.0-45.0); ABG PARTIAL PRESSURE O2 68.5 mmHg (75.0-100.0); ABG STANDARD HCO3 27.4 MEQ/L (22.0-26.0); ABG TOTAL CO2 31.7 MEQ/L (23.0-31.0); ABG pH (ARTERIAL) 7.353 UNITS (7.350-7.450)
[2017-07-10 16:31] LABS: BASO % 0.2 % (0.0-1.0); EOS % 0.1 % (0.0-3.0); HEMATOCRIT 34.4 % (42.0-52.0); HEMOGLOBIN 10.5 g/dl (13.5-17.5); IMMATURE GRANULOCYTE % 1.2 % (0-3.0); LYMPH # 0.4 10^3/uL (1.5-4.5); LYMPH % 4.2 % (24.0-44.0); MEAN CORPUSCULAR HEMOGLOBIN 32.7 pg (27.0-33.0); MEAN CORPUSCULAR HGB CONC 30.5 g/dl (32.0-36.5); MEAN CORPUSCULAR VOLUME 107.2 fl (80.0-96.0); MONO # 0.4 10^3/uL (0.0-0.8); MONO % 4.4 % (0.0-5.0); NEUTROPHILS % 89.9 % (36.0-66.0); PLATELET COUNT, AUTOMATED 144 10^3/uL (150-450); RED BLOOD COUNT 3.21 10^6/uL (4.30-6.10); RED CELL DISTRIBUTION WIDTH 19.3 % (11.5-14.5)
[2017-07-10 16:51] LABS: INR 1.18; PROTHROMBIN TIME 15.2 SECONDS (12.4-14.5)
[2017-07-10 16:58] LABS: ALBUMIN 3.2 GM/DL (3.2-5.2); ALKALINE PHOSPHATASE 62 U/L (45-117); ALT/SGPT 62 U/L (12-78); ANION GAP 5 MEQ/L (8-16); AST/SGOT 31 U/L (7-37); BILIRUBIN,DIRECT 0.2 MG/DL (0.0-0.2); BILIRUBIN,TOTAL 0.4 MG/DL (0.2-1.0); BLOOD UREA NITROGEN 27 MG/DL (7-18); CALCIUM LEVEL 8.2 MG/DL (8.8-10.2); CARBON DIOXIDE LEVEL 31 MEQ/L (21-32); CHLORIDE LEVEL 103 MEQ/L (98-107); CPK CREATINE PHOSPHOKINASE 38 U/L (39-308); CREATININE FOR GFR 1.64 MG/DL (0.70-1.30); GLOMERULAR FILTRATION RATE 45.3 (>49); GLUCOSE, FASTING 349 MG/DL (70-100); MAGNESIUM LEVEL 1.8 MG/DL (1.8-2.4); SODIUM LEVEL 139 MEQ/L (136-145); TOTAL PROTEIN 6.4 GM/DL (6.4-8.2); TROPONIN I 0.04 NG/ML (< 0.10)
[2017-07-10 17:04] LABS: LACTIC ACID SEPSIS PROTOCOL 2.5 MMOL/L (0.4-2.0)
[2017-07-10 17:17] LABS: CK-MB VALUE MASS 2.8 NG/ML (<3.6); DIGOXIN LEVEL 1.3 NG/ML (0.5-2.0); MB/CK RELATIVE INDEX 7.36 (< OR =4); NT-PRO BNP 906 PG/ML (<125); THYROID STIMULATING HORMONE 0.536 uIU/ML (0.358-3.740)
[2017-07-10] MEDS: cefTRIAXone SOD 2 GM in D5W MINI-BAG PLUS 50 ML IV (17:52)
[2017-07-10] MEDS ORDERED: ONDANSETRON 4MG/2ML VIAL (J2405) IV (18:15)
[2017-07-10] MEDS: VANCOMYCIN HCL 1,000 MG, VIAL MATE ADAPTER 1 EACH in D5W 250 ML IV ×2 (18:40→22:00)
[2017-07-10] MEDS ORDERED: PIPERACILLIN/TAZOBACTAM SOD 2.25 GM in D5W MINI-BAG PLUS 50 ML IV (19:45)
[2017-07-10] MEDS ORDERED: ACETAMINOPHEN 325 MG TAB PO (19:45)
[2017-07-10] MEDS ORDERED: GLUCOSE 4 GM CHEW TABLET PO (20:15)
[2017-07-10] MEDS ORDERED: GLUCAGON FOR INJ 1 MG VIAL (J1610) SC (20:15)
[2017-07-10] MEDS ORDERED: DEXTROSE 50% 50 ML SYRINGE IV (20:15)
[2017-07-10 21:19] LABS: LACTIC ACID SEPSIS PROTOCOL 3.7 MMOL/L (0.4-2.0)
[2017-07-10] MEDS: HEPARIN SOD (PORCINE) 5000 UNITS/ML VIAL SC (22:00)
[2017-07-10] MEDS: LACTOBACILLUS ACIDOPHILUS CAP (BACID) PO (22:01)
[2017-07-10] MEDS: SERTRALINE HCL 50 MG TAB PO (22:01)
[2017-07-10] MEDS: ZONISAMIDE 50 MG CAP (ZONEGRAN) PO (22:01)
[2017-07-10] MEDS: GABAPENTIN 300 MG CAP PO (22:01)
[2017-07-10] MEDS: PRAVASTATIN 20 MG TAB PO (22:01)
[2017-07-10] MEDS: HumaLOG INSULIN (NovoLOG) PER UNIT SC (22:02)
[2017-07-10] MEDS: PANTOPRAZOLE 40MG TAB (PROTONIX) PO (22:03)
[2017-07-10] MEDS: LEVEMIR (INSULIN DETEMIR) 1 UNITS/0.01ML SC (22:03)
[2017-07-11] MEDS: PIPERACILLIN/TAZOBACTAM SOD 3.375 GM in D5W MINI-BAG PLUS 50 ML IV ×4 (00:06→17:34)
[2017-07-11] MEDS: FUROSEMIDE 40 MG/4 ML VIAL (J1940) IV ×3 (00:07→16:12)
[2017-07-11 01:18] LABS: CK-MB VALUE MASS 1.4 NG/ML (<3.6); CPK CREATINE PHOSPHOKINASE 29 U/L (39-308); MB/CK RELATIVE INDEX 4.82 (< OR =4); TROPONIN I 0.03 NG/ML (< 0.10)
[2017-07-11] MEDS: ACETAMINOPHEN TAB 650MG DOSE (2X325MG) PO ×3 (03:05→21:40)
[2017-07-11] MEDS: VANCOMYCIN HCL 1,000 MG, VIAL MATE ADAPTER 1 EACH in D5W 250 ML IV ×3 (05:14→18:00)
[2017-07-11] MEDS: HEPARIN SOD (PORCINE) 5000 UNITS/ML VIAL SC ×2 (06:35→14:19)
[2017-07-11 07:40] LABS: BASO % 0.3 % (0.0-1.0); EOS % 0.3 % (0.0-3.0); HEMATOCRIT 35.1 % (42.0-52.0); HEMOGLOBIN 10.9 g/dl (13.5-17.5); IMMATURE GRANULOCYTE % 0.9 % (0-3.0); LYMPH # 0.9 10^3/uL (1.5-4.5); LYMPH % 7.8 % (24.0-44.0); MEAN CORPUSCULAR HGB CONC 31.1 g/dl (32.0-36.5); MEAN CORPUSCULAR VOLUME 106.4 fl (80.0-96.0); MONO # 0.7 10^3/uL (0.0-0.8); MONO % 5.6 % (0.0-5.0); NEUTROPHILS # 10.2 10^3/uL (1.8-7.7); NEUTROPHILS % 85.1 % (36.0-66.0); PLATELET COUNT, AUTOMATED 130 10^3/uL (150-450); RED CELL DISTRIBUTION WIDTH 19.2 % (11.5-14.5)
[2017-07-11 07:59] LABS: ANION GAP 9 MEQ/L (8-16); BLOOD UREA NITROGEN 26 MG/DL (7-18); CALCIUM LEVEL 8.2 MG/DL (8.8-10.2); CARBON DIOXIDE LEVEL 31 MEQ/L (21-32); CHLORIDE LEVEL 97 MEQ/L (98-107); CK-MB VALUE MASS 1.8 NG/ML (<3.6); CPK CREATINE PHOSPHOKINASE 36 U/L (39-308); CREATININE FOR GFR 1.85 MG/DL (0.70-1.30); GLOMERULAR FILTRATION RATE 39.4 (>49); GLUCOSE, FASTING 214 MG/DL (70-100); POTASSIUM SERUM 4.3 MEQ/L (3.5-5.1); SODIUM LEVEL 137 MEQ/L (136-145); TROPONIN I 0.06 NG/ML (< 0.10)
[2017-07-11 08:05] LABS: ESTIMATED AVERAGE GLUCOSE 163 MG/DL (60-110); HEMOGLOBIN A1c 7.3 %
[2017-07-11] MEDS: LEVEMIR (INSULIN DETEMIR) 1 UNITS/0.01ML SC ×2 (09:08→21:40)
[2017-07-11] MEDS: ALLOPURINOL 300 MG TAB PO (09:09)
[2017-07-11] MEDS: GABAPENTIN 300 MG CAP PO ×3 (09:09→21:37)
[2017-07-11] MEDS: HumaLOG INSULIN (NovoLOG) PER UNIT SC ×4 (09:09→21:39)
[2017-07-11] MEDS: LACTOBACILLUS ACIDOPHILUS CAP (BACID) PO ×3 (09:09→21:37)
[2017-07-11] MEDS: ZONISAMIDE 50 MG CAP (ZONEGRAN) PO ×2 (09:10→21:38)
[2017-07-11] MEDS: ASPIRIN 81 MG ENTERIC TAB PO (09:10)
[2017-07-11] MEDS: CYANOCOBALAMIN 500 MCG TAB PO (09:10)
[2017-07-11] MEDS: FERROUS SULFATE 325MG TAB PO (09:10)
[2017-07-11] MEDS: rOPINIRole 1MG TAB PO (09:10)
[2017-07-11] MEDS: ATENOLOL 25 MG TAB PO (09:11)
[2017-07-11] MEDS: DIGOXIN 0.125 MG TAB PO (09:11)
[2017-07-11] MEDS: ISOSORBIDE MON. (IMDUR) 60 MG XR TAB PO (09:11)
[2017-07-11] MEDS: MAGNESIUM OXIDE 400 MG TAB (MAG-OX) PO (09:11)
[2017-07-11 09:59] LABS: ABG BASE EXCESS 7.1 (-2.0-2.0); ABG HCO3 33.4 MEQ/L (22.0-26.0); ABG O2 SATURATION 91.4 % (95.0-99.0); ABG PARTIAL PRESSURE CO2 55.9 mmHg (35.0-45.0); ABG STANDARD HCO3 30.8 MEQ/L (22.0-26.0); ABG TOTAL CO2 35.1 MEQ/L (23.0-31.0); ABG pH (ARTERIAL) 7.394 UNITS (7.350-7.450)
[2017-07-11 11:39] LABS: BEDSIDE GLUCOSE 306 MG/DL (80-115)
[2017-07-11] MEDS: ALBUTEROL SULFATE 2.5 MG/0.5 ML INH NEB SOLN NEB ×4 (11:48→23:09)
[2017-07-11 12:10] LABS: CK-MB VALUE MASS 2.3 NG/ML (<3.6); CPK CREATINE PHOSPHOKINASE 37 U/L (39-308); MB/CK RELATIVE INDEX 6.21 (< OR =4); TROPONIN I 0.07 NG/ML (< 0.10)
[2017-07-11 12:15] LABS: BEDSIDE GLUCOSE 222 MG/DL (80-115)
[2017-07-11 15:05] LABS: BEDSIDE GLUCOSE 238 MG/DL (80-115)
[2017-07-11] MEDS: predniSONE 20 MG TAB PO (16:12)
[2017-07-11 16:46] LABS: IMMUNOGLOBULIN G 642 MG/DL (681-1648)
[2017-07-11 17:43] LABS: BEDSIDE GLUCOSE 213 MG/DL (80-115)
[2017-07-11] MEDS: APIXABAN 5 MG TAB (ELIQUIS) PO (21:37)
[2017-07-11] MEDS: SERTRALINE HCL 50 MG TAB PO (21:38)
[2017-07-11] MEDS: PANTOPRAZOLE 40MG TAB (PROTONIX) PO (21:38)
[2017-07-11] MEDS: PRAVASTATIN 20 MG TAB PO (21:38)
[2017-07-11] MEDS: rOPINIRole 2MG TAB PO (22:43)
[2017-07-12] MEDS: ALBUTEROL SULFATE 2.5 MG/0.5 ML INH NEB SOLN NEB ×5 (03:18→20:49)
[2017-07-12 05:38] LABS: HEMATOCRIT 31.7 % (42.0-52.0); HEMOGLOBIN 9.8 g/dl (13.5-17.5); MEAN CORPUSCULAR HEMOGLOBIN 32.7 pg (27.0-33.0); MEAN CORPUSCULAR HGB CONC 30.9 g/dl (32.0-36.5); MEAN CORPUSCULAR VOLUME 105.7 fl (80.0-96.0); PLATELET COUNT, AUTOMATED 129 10^3/uL (150-450); RED CELL DISTRIBUTION WIDTH 18.6 % (11.5-14.5); WHITE BLOOD COUNT 10.6 10^3/uL (4.0-10.0)
[2017-07-12 05:42] LABS: ADD MANUAL DIFFER YES; DIFF SLIDE NUMBER 35; POSITIVE MORPH POS FLAG
[2017-07-12 05:58] LABS: ANION GAP 6 MEQ/L (8-16); BLOOD UREA NITROGEN 37 MG/DL (7-18); CALCIUM LEVEL 8.1 MG/DL (8.8-10.2); CARBON DIOXIDE LEVEL 34 MEQ/L (21-32); CHLORIDE LEVEL 96 MEQ/L (98-107); CREATININE FOR GFR 2.08 MG/DL (0.70-1.30); GLOMERULAR FILTRATION RATE 34.4 (>49); GLUCOSE, FASTING 217 MG/DL (70-100); POTASSIUM SERUM 4.1 MEQ/L (3.5-5.1); SODIUM LEVEL 136 MEQ/L (136-145)
[2017-07-12 06:38] LABS: ANISOCYTOSIS 2+; BANDS 1 % (< 11); BASOPHILS 2 % (0-4); LYMPHOCYTES 4 % (16-52); MONOCYTES 2 % (0-8); NEUTROPHILS 91 % (35-75)
[2017-07-12 06:40] LABS: HYPOCHROMASIA 1+; PLATELET ESTIMATE DECREASED (NORMAL); POLYCHROMASIA 1+; STOMATOCYTES 1+
[2017-07-12 10:20] LABS: BEDSIDE GLUCOSE 277 MG/DL (80-115)
[2017-07-12] MEDS: HumaLOG INSULIN (NovoLOG) PER UNIT SC ×4 (10:26→21:35)
[2017-07-12] MEDS: ZONISAMIDE 50 MG CAP (ZONEGRAN) PO ×2 (10:27→21:35)
[2017-07-12] MEDS: LEVEMIR (INSULIN DETEMIR) 1 UNITS/0.01ML SC ×2 (10:27→21:36)
[2017-07-12] MEDS: DIGOXIN 0.125 MG TAB PO (10:30)
[2017-07-12] MEDS: ATENOLOL 25 MG TAB PO (10:30)
[2017-07-12] MEDS: LACTOBACILLUS ACIDOPHILUS CAP (BACID) PO ×3 (10:31→21:33)
[2017-07-12] MEDS: APIXABAN 5 MG TAB (ELIQUIS) PO ×2 (10:31→21:33)
[2017-07-12] MEDS: ASPIRIN 81 MG ENTERIC TAB PO (10:31)
[2017-07-12] MEDS: FERROUS SULFATE 325MG TAB PO (10:32)
[2017-07-12] MEDS: ALLOPURINOL 300 MG TAB PO (10:32)
[2017-07-12] MEDS: GABAPENTIN 300 MG CAP PO ×3 (10:32→21:34)
[2017-07-12] MEDS: CYANOCOBALAMIN 500 MCG TAB PO (10:32)
[2017-07-12] MEDS: ISOSORBIDE MON. (IMDUR) 60 MG XR TAB PO (10:33)
[2017-07-12] MEDS: predniSONE 20 MG TAB PO (10:33)
[2017-07-12] MEDS: MAGNESIUM OXIDE 400 MG TAB (MAG-OX) PO (10:34)
[2017-07-12] MEDS: rOPINIRole 1MG TAB PO (10:47)
[2017-07-12 11:46] LABS: BEDSIDE GLUCOSE 223 MG/DL (80-115)
[2017-07-12 16:59] LABS: BEDSIDE GLUCOSE 297 MG/DL (80-115)
[2017-07-12] MEDS: rOPINIRole 2MG TAB PO (21:34)
[2017-07-12] MEDS: PRAVASTATIN 20 MG TAB PO (21:34)
[2017-07-12] MEDS: SERTRALINE HCL 50 MG TAB PO (21:34)
[2017-07-12] MEDS: PANTOPRAZOLE 40MG TAB (PROTONIX) PO (21:34)
[2017-07-12] MEDS: ACETAMINOPHEN TAB 650MG DOSE (2X325MG) PO (21:38)
[2017-07-13] MEDS: ALBUTEROL SULFATE 2.5 MG/0.5 ML INH NEB SOLN NEB ×7 (03:43→23:37)
[2017-07-13 05:29] LABS: BASO % 0.1 % (0.0-1.0); EOS % 0.5 % (0.0-3.0); HEMATOCRIT 32.9 % (42.0-52.0); HEMOGLOBIN 10.1 g/dl (13.5-17.5); IMMATURE GRANULOCYTE % 0.9 % (0-3.0); LYMPH # 0.8 10^3/uL (1.5-4.5); MEAN CORPUSCULAR HEMOGLOBIN 32.4 pg (27.0-33.0); MEAN CORPUSCULAR HGB CONC 30.7 g/dl (32.0-36.5); MEAN CORPUSCULAR VOLUME 105.4 fl (80.0-96.0); MONO # 0.4 10^3/uL (0.0-0.8); MONO % 4.6 % (0.0-5.0); NEUTROPHILS # 7.4 10^3/uL (1.8-7.7); NEUTROPHILS % 84.9 % (36.0-66.0); PLATELET COUNT, AUTOMATED 126 10^3/uL (150-450); RED BLOOD COUNT 3.12 10^6/uL (4.30-6.10); RED CELL DISTRIBUTION WIDTH 18.2 % (11.5-14.5); WHITE BLOOD COUNT 8.7 10^3/uL (4.0-10.0)
[2017-07-13 05:51] LABS: ANION GAP 7 MEQ/L (8-16); BLOOD UREA NITROGEN 37 MG/DL (7-18); CALCIUM LEVEL 8.8 MG/DL (8.8-10.2); CARBON DIOXIDE LEVEL 32 MEQ/L (21-32); CHLORIDE LEVEL 97 MEQ/L (98-107); CREATININE FOR GFR 1.56 MG/DL (0.70-1.30); GLOMERULAR FILTRATION RATE 47.9 (>49); GLUCOSE, FASTING 213 MG/DL (70-100); POTASSIUM SERUM 3.5 MEQ/L (3.5-5.1); SODIUM LEVEL 136 MEQ/L (136-145)
[2017-07-13] MEDS: LOPERAMIDE 2 MG CAP PO (06:55)
[2017-07-13] MEDS ORDERED: PILL CRUSHER/CUTTER 1 EACH XX (08:30)
[2017-07-13] MEDS: LEVEMIR (INSULIN DETEMIR) 1 UNITS/0.01ML SC ×2 (08:47→21:30)
[2017-07-13] MEDS: HumaLOG INSULIN (NovoLOG) PER UNIT SC ×4 (08:47→21:30)
[2017-07-13] MEDS: GABAPENTIN 300 MG CAP PO ×3 (08:48→21:29)
[2017-07-13] MEDS: LACTOBACILLUS ACIDOPHILUS CAP (BACID) PO ×3 (08:48→21:29)
[2017-07-13] MEDS: APIXABAN 5 MG TAB (ELIQUIS) PO ×2 (08:48→21:29)
[2017-07-13] MEDS: CYANOCOBALAMIN 500 MCG TAB PO (08:48)
[2017-07-13] MEDS: ALLOPURINOL 300 MG TAB PO (08:48)
[2017-07-13] MEDS: ZONISAMIDE 50 MG CAP (ZONEGRAN) PO ×2 (08:49→21:29)
[2017-07-13] MEDS: MAGNESIUM OXIDE 400 MG TAB (MAG-OX) PO (08:49)
[2017-07-13] MEDS: FERROUS SULFATE 325MG TAB PO (08:49)
[2017-07-13] MEDS: predniSONE 20 MG TAB PO (08:49)
[2017-07-13] MEDS: DIGOXIN 0.125 MG TAB PO (08:49)
[2017-07-13] MEDS: ASPIRIN 81 MG ENTERIC TAB PO (08:50)
[2017-07-13 10:01] LABS: BEDSIDE GLUCOSE 321 MG/DL (80-115)
[2017-07-13] MEDS: ISOSORBIDE MON. (IMDUR) 60 MG XR TAB PO (10:15)
[2017-07-13] MEDS: ATENOLOL 25 MG TAB PO (10:15)
[2017-07-13] MEDS: rOPINIRole 1MG TAB PO (10:24)
[2017-07-13 12:10] LABS: BEDSIDE GLUCOSE 225 MG/DL (80-115)
[2017-07-13 16:26] LABS: BEDSIDE GLUCOSE 424 MG/DL (80-115)
[2017-07-13 20:36] LABS: BEDSIDE GLUCOSE 413 MG/DL (80-115)
[2017-07-13] MEDS: SERTRALINE HCL 50 MG TAB PO (21:29)
[2017-07-13] MEDS: PANTOPRAZOLE 40MG TAB (PROTONIX) PO (21:29)
[2017-07-13] MEDS: rOPINIRole 2MG TAB PO (21:29)
[2017-07-13] MEDS: PRAVASTATIN 20 MG TAB PO (21:29)
[2017-07-14] MEDS: ALBUTEROL SULFATE 2.5 MG/0.5 ML INH NEB SOLN NEB ×2 (03:08→20:00)
[2017-07-14 05:52] LABS: BASO % 0.1 % (0.0-1.0); EOS # 0.1 10^3/uL (0.0-0.50); EOS % 0.6 % (0.0-3.0); HEMATOCRIT 32.3 % (42.0-52.0); HEMOGLOBIN 10.1 g/dl (13.5-17.5); IMMATURE GRANULOCYTE % 1.9 % (0-3.0); LYMPH # 0.9 10^3/uL (1.5-4.5); MEAN CORPUSCULAR HEMOGLOBIN 32.6 pg (27.0-33.0); MEAN CORPUSCULAR HGB CONC 31.3 g/dl (32.0-36.5); MEAN CORPUSCULAR VOLUME 104.2 fl (80.0-96.0); MONO # 0.4 10^3/uL (0.0-0.8); MONO % 5.6 % (0.0-5.0); NEUTROPHILS # 6.3 10^3/uL (1.8-7.7); NEUTROPHILS % 80.8 % (36.0-66.0); PLATELET COUNT, AUTOMATED 156 10^3/uL (150-450); RED CELL DISTRIBUTION WIDTH 17.6 % (11.5-14.5); WHITE BLOOD COUNT 7.8 10^3/uL (4.0-10.0)
[2017-07-14 06:15] LABS: ANION GAP 8 MEQ/L (8-16); BLOOD UREA NITROGEN 29 MG/DL (7-18); CALCIUM LEVEL 9.1 MG/DL (8.8-10.2); CARBON DIOXIDE LEVEL 30 MEQ/L (21-32); CHLORIDE LEVEL 100 MEQ/L (98-107); GLOMERULAR FILTRATION RATE 59.2 (>49); GLUCOSE, FASTING 181 MG/DL (70-100); SODIUM LEVEL 138 MEQ/L (136-145)
[2017-07-14] MEDS: HumaLOG INSULIN (NovoLOG) PER UNIT SC ×4 (08:14→21:49)
[2017-07-14] MEDS: CYANOCOBALAMIN 500 MCG TAB PO (08:15)
[2017-07-14] MEDS: ZONISAMIDE 50 MG CAP (ZONEGRAN) PO ×2 (08:15→21:57)
[2017-07-14] MEDS: FERROUS SULFATE 325MG TAB PO (08:15)
[2017-07-14] MEDS: TORSEMIDE 20 MG TAB PO (08:15)
[2017-07-14] MEDS: ALLOPURINOL 300 MG TAB PO (08:15)
[2017-07-14] MEDS: APIXABAN 5 MG TAB (ELIQUIS) PO ×2 (08:15→21:57)
[2017-07-14] MEDS: GABAPENTIN 300 MG CAP PO ×3 (08:15→21:57)
[2017-07-14] MEDS: ATENOLOL 25 MG TAB PO (08:15)
[2017-07-14] MEDS: ISOSORBIDE MON. (IMDUR) 60 MG XR TAB PO (08:16)
[2017-07-14] MEDS: predniSONE 20 MG TAB PO (08:16)
[2017-07-14] MEDS: ASPIRIN 81 MG ENTERIC TAB PO (08:16)
[2017-07-14] MEDS: DIGOXIN 0.125 MG TAB PO (08:18)
[2017-07-14] MEDS: rOPINIRole 1MG TAB PO (08:19)
[2017-07-14] MEDS: MAGNESIUM OXIDE 400 MG TAB (MAG-OX) PO (08:19)
[2017-07-14] MEDS: LEVEMIR (INSULIN DETEMIR) 1 UNITS/0.01ML SC ×3 (08:19→21:57)
[2017-07-14] MEDS: LACTOBACILLUS ACIDOPHILUS CAP (BACID) PO ×3 (08:19→21:57)
[2017-07-14] MEDS: SYMBICORT 80/4.5MCG INHALER 6GM INH ×2 (08:30→20:18)
[2017-07-14] MEDS ORDERED: TORSEMIDE 10 MG TABLET PO (09:00)
[2017-07-14] MEDS: TIOTROPIUM INHALER/CAPSULE (SPIRIVA) INH (11:06)
[2017-07-14 11:37] LABS: BEDSIDE GLUCOSE 297 MG/DL (80-115)
[2017-07-14] MEDS: BACTRIM 160MG/800MG DS TAB PO (12:19)
[2017-07-14 16:58] LABS: BEDSIDE GLUCOSE 264 MG/DL (80-115)
[2017-07-14 20:16] LABS: BEDSIDE GLUCOSE 224 MG/DL (80-115)
[2017-07-14] MEDS: PANTOPRAZOLE 40MG TAB (PROTONIX) PO (21:57)
[2017-07-14] MEDS: SERTRALINE HCL 50 MG TAB PO (21:57)
[2017-07-14] MEDS: rOPINIRole 2MG TAB PO (21:57)
[2017-07-14] MEDS: PRAVASTATIN 20 MG TAB PO (21:57)
[2017-07-15] MEDS: ALBUTEROL SULFATE 2.5 MG/0.5 ML INH NEB SOLN NEB ×2 (00:37→08:42)
[2017-07-15 05:56] LABS: BASO % 0.6 % (0.0-1.0); EOS % 0.6 % (0.0-3.0); HEMOGLOBIN 10.9 g/dl (13.5-17.5); IMMATURE GRANULOCYTE % 3.9 % (0-3.0); LYMPH # 0.9 10^3/uL (1.5-4.5); LYMPH % 13.4 % (24.0-44.0); MEAN CORPUSCULAR HEMOGLOBIN 32.2 pg (27.0-33.0); MEAN CORPUSCULAR HGB CONC 31.1 g/dl (32.0-36.5); MEAN CORPUSCULAR VOLUME 103.2 fl (80.0-96.0); MONO # 0.4 10^3/uL (0.0-0.8); MONO % 5.9 % (0.0-5.0); NEUTROPHILS # 5.3 10^3/uL (1.8-7.7); NEUTROPHILS % 75.6 % (36.0-66.0); PLATELET COUNT, AUTOMATED 167 10^3/uL (150-450); RED BLOOD COUNT 3.39 10^6/uL (4.30-6.10); RED CELL DISTRIBUTION WIDTH 17.3 % (11.5-14.5)
[2017-07-15 06:18] LABS: ANION GAP 10 MEQ/L (8-16); BLOOD UREA NITROGEN 28 MG/DL (7-18); CALCIUM LEVEL 9.3 MG/DL (8.8-10.2); CARBON DIOXIDE LEVEL 30 MEQ/L (21-32); CHLORIDE LEVEL 100 MEQ/L (98-107); CREATININE FOR GFR 1.47 MG/DL (0.70-1.30); GLOMERULAR FILTRATION RATE 51.3 (>49); GLUCOSE, FASTING 156 MG/DL (70-100); POTASSIUM SERUM 3.7 MEQ/L (3.5-5.1); SODIUM LEVEL 140 MEQ/L (136-145)
[2017-07-15] MEDS: MAGNESIUM OXIDE 400 MG TAB (MAG-OX) PO (08:23)
[2017-07-15] MEDS: LEVEMIR (INSULIN DETEMIR) 1 UNITS/0.01ML SC (08:23)
[2017-07-15] MEDS: ZONISAMIDE 50 MG CAP (ZONEGRAN) PO (08:23)
[2017-07-15] MEDS: HumaLOG INSULIN (NovoLOG) PER UNIT SC ×2 (08:23→12:08)
[2017-07-15] MEDS: rOPINIRole 1MG TAB PO (08:24)
[2017-07-15] MEDS: ATENOLOL 25 MG TAB PO (08:24)
[2017-07-15] MEDS: ASPIRIN 81 MG ENTERIC TAB PO (08:25)
[2017-07-15] MEDS: LACTOBACILLUS ACIDOPHILUS CAP (BACID) PO (08:25)
[2017-07-15] MEDS: CYANOCOBALAMIN 500 MCG TAB PO (08:25)
[2017-07-15] MEDS: GABAPENTIN 300 MG CAP PO (08:25)
[2017-07-15] MEDS: ISOSORBIDE MON. (IMDUR) 60 MG XR TAB PO (08:25)
[2017-07-15] MEDS: APIXABAN 5 MG TAB (ELIQUIS) PO (08:25)
[2017-07-15] MEDS: ALLOPURINOL 300 MG TAB PO (08:25)
[2017-07-15] MEDS: predniSONE 20 MG TAB PO (08:26)
[2017-07-15] MEDS: FERROUS SULFATE 325MG TAB PO (08:26)
[2017-07-15] MEDS: BACTRIM 160MG/800MG DS TAB PO (08:26)
[2017-07-15] MEDS: TORSEMIDE 20 MG TAB PO (08:26)
[2017-07-15] MEDS: DIGOXIN 0.125 MG TAB PO (08:26)
[2017-07-15] MEDS: TIOTROPIUM INHALER/CAPSULE (SPIRIVA) INH (08:42)
[2017-07-15] MEDS: SYMBICORT 80/4.5MCG INHALER 6GM INH (08:42)
[2017-07-15 11:32] LABS: BEDSIDE GLUCOSE 194 MG/DL (80-115)
== END 2017-07-15 12:27 | DRG 291 ==
LOC: M PCU 07-11 07:10 → M MSPAV 07-13 18:21 → M ED 15:14 → M ED INP 18:05 → M MSPAV 19:57
DX: I13.0 Hypertensive heart and chronic kidney disease with heart failure and stage 1 through stage 4 chronic kidney disease, or unspecified chronic kidney disease (principal); I50.33 Acute on chronic diastolic (congestive) heart failure; J96.21 Acute and chronic respiratory failure with hypoxia; J81.0 Acute pulmonary edema; D80.1 Nonfamilial hypogammaglobulinemia; E27.40 Unspecified adrenocortical insufficiency; C34.31 Malignant neoplasm of lower lobe, right bronchus or lung; G47.33 Obstructive sleep apnea (adult) (pediatric); E78.5 Hyperlipidemia, unspecified; E11.22 Type 2 diabetes mellitus with diabetic chronic kidney disease; M10.9 Gout, unspecified; E53.8 Deficiency of other specified B group vitamins; D63.8 Anemia in other chronic diseases classified elsewhere; I48.91 Unspecified atrial fibrillation; N18.3 Chronic kidney disease, stage 3 (moderate); F32.9 Major depressive disorder, single episode, unspecified; E66.01 Morbid (severe) obesity due to excess calories; J44.9 Chronic obstructive pulmonary disease, unspecified; I27.20 Pulmonary hypertension, unspecified; K21.9 Gastro-esophageal reflux disease without esophagitis; Z90.2 Acquired absence of lung [part of]; G25.81 Restless legs syndrome; Z86.14 Personal history of Methicillin resistant Staphylococcus aureus infection; Z90.49 Acquired absence of other specified parts of digestive tract; Z90.5 Acquired absence of kidney; Z79.82 Long term (current) use of aspirin; Z79.4 Long term (current) use of insulin; Z79.899 Other long term (current) drug therapy; Z79.01 Long term (current) use of anticoagulants; Z68.38 Body mass index [BMI] 38.0-38.9, adult

== ENCOUNTER → 2017-07-17 | Outpatient (REF) ==
[2017-07-17 11:46] LABS: ANION GAP 9 MEQ/L (8-16); BLOOD UREA NITROGEN 37 MG/DL (7-18); CALCIUM LEVEL 9.5 MG/DL (8.8-10.2); CARBON DIOXIDE LEVEL 31 MEQ/L (21-32); CHLORIDE LEVEL 101 MEQ/L (98-107); CREATININE FOR GFR 1.69 MG/DL (0.70-1.30); GLOMERULAR FILTRATION RATE 43.7 (>49); GLUCOSE, FASTING 245 MG/DL (70-100); POTASSIUM SERUM 4.1 MEQ/L (3.5-5.1); SODIUM LEVEL 141 MEQ/L (136-145)
== END ==
DX: Z11.2 Encounter for screening for other bacterial diseases (principal)

== ENCOUNTER → 2017-07-20 | Outpatient (REF) ==
[2017-07-20 12:52] LABS: HEMATOCRIT 39.8 % (42.0-52.0); MEAN CORPUSCULAR HEMOGLOBIN 31.9 pg (27.0-33.0); MEAN CORPUSCULAR HGB CONC 30.2 g/dl (32.0-36.5); MEAN CORPUSCULAR VOLUME 105.9 fl (80.0-96.0); PLATELET COUNT, AUTOMATED 245 10^3/uL (150-450); RED BLOOD COUNT 3.76 10^6/uL (4.30-6.10); RED CELL DISTRIBUTION WIDTH 17.4 % (11.5-14.5); WHITE BLOOD COUNT 10.5 10^3/uL (4.0-10.0)
[2017-07-20 13:15] LABS: ANION GAP 13 MEQ/L (8-16); BLOOD UREA NITROGEN 34 MG/DL (7-18); CALCIUM LEVEL 9.3 MG/DL (8.8-10.2); CARBON DIOXIDE LEVEL 26 MEQ/L (21-32); CHLORIDE LEVEL 102 MEQ/L (98-107); CREATININE FOR GFR 1.74 MG/DL (0.70-1.30); GLOMERULAR FILTRATION RATE 42.3 (>49); GLUCOSE, FASTING 183 MG/DL (70-100); POTASSIUM SERUM 4.3 MEQ/L (3.5-5.1); SODIUM LEVEL 141 MEQ/L (136-145)
== END ==
DX: Z11.2 Encounter for screening for other bacterial diseases (principal)

== ENCOUNTER → 2017-07-21 | Outpatient (REF) | DX: J18.9 Pneumonia, unspecified organism (principal) ==

== ENCOUNTER → 2017-07-24 | Outpatient (REF) ==
[2017-07-24 09:16] LABS: ANION GAP 10 MEQ/L (8-16); BLOOD UREA NITROGEN 28 MG/DL (7-18); CALCIUM LEVEL 8.9 MG/DL (8.8-10.2); CARBON DIOXIDE LEVEL 29 MEQ/L (21-32); CHLORIDE LEVEL 104 MEQ/L (98-107); CREATININE FOR GFR 1.49 MG/DL (0.70-1.30); GLOMERULAR FILTRATION RATE 50.5 (>49); GLUCOSE, FASTING 150 MG/DL (70-100); SODIUM LEVEL 143 MEQ/L (136-145)
== END ==
DX: N17.9 Acute kidney failure, unspecified (principal)

== ENCOUNTER → 2017-07-28 | Outpatient (REF) ==
[2017-07-28 11:26] LABS: HEMATOCRIT 39.1 % (42.0-52.0); HEMOGLOBIN 12.3 g/dl (13.5-17.5); MEAN CORPUSCULAR HEMOGLOBIN 32.5 pg (27.0-33.0); MEAN CORPUSCULAR HGB CONC 31.5 g/dl (32.0-36.5); MEAN CORPUSCULAR VOLUME 103.4 fl (80.0-96.0); PLATELET COUNT, AUTOMATED 182 10^3/uL (150-450); RED BLOOD COUNT 3.78 10^6/uL (4.30-6.10); RED CELL DISTRIBUTION WIDTH 17.2 % (11.5-14.5); WHITE BLOOD COUNT 6.4 10^3/uL (4.0-10.0)
== END ==
DX: J18.9 Pneumonia, unspecified organism (principal); Z22.322 Carrier or suspected carrier of Methicillin resistant Staphylococcus aureus

== ENCOUNTER 2017-08-03 08:13 | Inpatient (IN) | payer MEDICARE, MEDICAID ==
[2017-08-03] MEDS: IPRATROPIUM 0.5MG/ALBUTEROL 2.5MG INH SOL UD 3ML (DUONEB)(J7620) NEB ×5 (08:51→20:00)
[2017-08-03 09:17] LABS: ABG BASE EXCESS 6.8 (-2.0-2.0); ABG HCO3 32.5 MEQ/L (22.0-26.0); ABG PARTIAL PRESSURE CO2 50.3 mmHg (35.0-45.0); ABG PARTIAL PRESSURE O2 61.8 mmHg (75.0-100.0); ABG STANDARD HCO3 30.5 MEQ/L (22.0-26.0); ABG pH (ARTERIAL) 7.428 UNITS (7.350-7.450)
[2017-08-03] MEDS: methylPREDNISolone INJ 125 MG/2 ML VIAL (J2930) IV ×2 (09:34→17:52)
[2017-08-03 10:29] LABS: BASO % 0.3 % (0.0-1.0); EOS # 0.1 10^3/uL (0.0-0.50); EOS % 0.8 % (0.0-3.0); HEMATOCRIT 44.8 % (42.0-52.0); HEMOGLOBIN 14.3 g/dl (13.5-17.5); IMMATURE GRANULOCYTE % 1.3 % (0-3.0); LYMPH # 0.8 10^3/uL (1.5-4.5); MEAN CORPUSCULAR HEMOGLOBIN 32.4 pg (27.0-33.0); MEAN CORPUSCULAR HGB CONC 31.9 g/dl (32.0-36.5); MEAN CORPUSCULAR VOLUME 101.4 fl (80.0-96.0); MONO # 0.4 10^3/uL (0.0-0.8); MONO % 3.5 % (0.0-5.0); NEUTROPHILS # 8.9 10^3/uL (1.8-7.7); NEUTROPHILS % 86.1 % (36.0-66.0); PLATELET COUNT, AUTOMATED 126 10^3/uL (150-450); RED BLOOD COUNT 4.42 10^6/uL (4.30-6.10); RED CELL DISTRIBUTION WIDTH 16.9 % (11.5-14.5); WHITE BLOOD COUNT 10.3 10^3/uL (4.0-10.0)
[2017-08-03 10:39] LABS: INR 1.09; PROTHROMBIN TIME 14.3 SECONDS (12.4-14.5)
[2017-08-03 10:40] LABS: PARTIAL THROMBOPLASTIN TIME 28.6 SECONDS (26.8-37.9)
[2017-08-03 11:01] LABS: ANION GAP 11 MEQ/L (8-16); BLOOD UREA NITROGEN 35 MG/DL (7-18); CALCIUM LEVEL 9.1 MG/DL (8.8-10.2); CARBON DIOXIDE LEVEL 32 MEQ/L (21-32); CHLORIDE LEVEL 99 MEQ/L (98-107); CPK CREATINE PHOSPHOKINASE 70 U/L (39-308); CREATININE FOR GFR 1.74 MG/DL (0.70-1.30); FREE T4 0.77 NG/DL (0.76-1.46); GLOMERULAR FILTRATION RATE 42.3 (>49); GLUCOSE, FASTING 159 MG/DL (70-100); POTASSIUM SERUM 3.9 MEQ/L (3.5-5.1); SODIUM LEVEL 142 MEQ/L (136-145); TROPONIN I 0.05 NG/ML (< 0.10)
[2017-08-03 11:06] LABS: CK-MB VALUE MASS 2.4 NG/ML (<3.6); MB/CK RELATIVE INDEX 3.42 (< OR =4); NT-PRO BNP 666 PG/ML (<125)
[2017-08-03] MEDS: FUROSEMIDE 40 MG/4 ML VIAL (J1940) IV ×3 (11:38→20:59)
[2017-08-03] MEDS: PIPERACILLIN/TAZOBACTAM SOD 3.375 GM in D5W MINI-BAG PLUS 50 ML IV (11:38)
[2017-08-03] MEDS: VANCOMYCIN HCL 1,000 MG, VIAL MATE ADAPTER 1 EACH in D5W 250 ML IV ×3 (12:25→15:28)
[2017-08-03] MEDS ORDERED: guaiFENesin SYRUP 200 MG/10 ML UDC PO (13:15)
[2017-08-03] MEDS ORDERED: DEXTROSE 50% 50 ML SYRINGE IV (13:15)
[2017-08-03] MEDS ORDERED: GLUCAGON FOR INJ 1 MG VIAL (J1610) SC (13:15)
[2017-08-03] MEDS ORDERED: GLUCOSE 4 GM CHEW TABLET PO (13:15)
[2017-08-03] MEDS ORDERED: BISACODYL 10 MG SUPP PR (13:15)
[2017-08-03] MEDS: DIGOXIN 0.125 MG TAB PO (14:58)
[2017-08-03] MEDS: GABAPENTIN 300 MG CAP PO ×2 (14:58→20:59)
[2017-08-03] MEDS: ZONISAMIDE 50 MG CAP (ZONEGRAN) PO ×2 (14:58→21:01)
[2017-08-03] MEDS: LACTOBACILLUS ACIDOPHILUS CAP (BACID) PO ×2 (14:58→20:59)
[2017-08-03] MEDS: APIXABAN 5 MG TAB (ELIQUIS) PO ×2 (14:59→20:59)
[2017-08-03] MEDS: ASPIRIN 81 MG ENTERIC TAB PO (15:02)
[2017-08-03] MEDS: CYANOCOBALAMIN 500 MCG TAB PO (15:02)
[2017-08-03] MEDS: FERROUS SULFATE 325MG TAB PO (15:02)
[2017-08-03] MEDS: ALLOPURINOL 300 MG TAB PO (15:03)
[2017-08-03] MEDS: rOPINIRole 1MG TAB PO (15:03)
[2017-08-03] MEDS: ATENOLOL 25 MG TAB PO (15:05)
[2017-08-03] MEDS: ISOSORBIDE MON. (IMDUR) 60 MG XR TAB PO (15:05)
[2017-08-03] MEDS ORDERED: VANCOMYCIN HCL 1,000 MG, VIAL MATE ADAPTER 1 EACH in D5W 250 ML IV (16:27)
[2017-08-03 17:39] LABS: BEDSIDE GLUCOSE 430 MG/DL (80-115)
[2017-08-03] MEDS: HumaLOG INSULIN (NovoLOG) PER UNIT SC ×2 (17:52→21:02)
[2017-08-03 19:55] LABS: CPK CREATINE PHOSPHOKINASE 47 U/L (39-308); TROPONIN I 0.05 NG/ML (< 0.10)
[2017-08-03 19:56] LABS: CK-MB VALUE MASS 2.6 NG/ML (<3.6); MB/CK RELATIVE INDEX 5.53 (< OR =4)
[2017-08-03 20:12] LABS: BEDSIDE GLUCOSE 447 MG/DL (80-115)
[2017-08-03] MEDS: SERTRALINE HCL 50 MG TAB PO (20:59)
[2017-08-03] MEDS: PRAVASTATIN 20 MG TAB PO (20:59)
[2017-08-03] MEDS: rOPINIRole 2MG TAB PO (20:59)
[2017-08-03] MEDS: PIPERACILLIN/TAZOBACTAM SOD 4.5 GM in D5W MINI-BAG PLUS 50 ML IV (20:59)
[2017-08-03] MEDS: PANTOPRAZOLE 40MG TAB (PROTONIX) PO (21:00)
[2017-08-03] MEDS: LEVEMIR (INSULIN DETEMIR) 1 UNITS/0.01ML SC (21:02)
[2017-08-04] MEDS: FUROSEMIDE 40 MG/4 ML VIAL (J1940) IV ×4 (00:06→12:57)
[2017-08-04] MEDS: methylPREDNISolone INJ 125 MG/2 ML VIAL (J2930) IV ×3 (02:02→17:30)
[2017-08-04] MEDS: VANCOMYCIN HCL 1,000 MG, VIAL MATE ADAPTER 1 EACH in D5W 250 ML IV ×2 (02:02→14:38)
[2017-08-04 03:01] LABS: BASO % 0.2 % (0.0-1.0); HEMATOCRIT 35.9 % (42.0-52.0); IMMATURE GRANULOCYTE % 1.1 % (0-3.0); LYMPH # 0.5 10^3/uL (1.5-4.5); LYMPH % 3.5 % (24.0-44.0); MEAN CORPUSCULAR HEMOGLOBIN 31.7 pg (27.0-33.0); MEAN CORPUSCULAR HGB CONC 31.5 g/dl (32.0-36.5); MEAN CORPUSCULAR VOLUME 100.6 fl (80.0-96.0); MONO # 0.2 10^3/uL (0.0-0.8); MONO % 1.6 % (0.0-5.0); NEUTROPHILS % 93.6 % (36.0-66.0); PLATELET COUNT, AUTOMATED 136 10^3/uL (150-450); RED BLOOD COUNT 3.57 10^6/uL (4.30-6.10); RED CELL DISTRIBUTION WIDTH 16.3 % (11.5-14.5); WHITE BLOOD COUNT 14.9 10^3/uL (4.0-10.0)
[2017-08-04 03:14] LABS: HEMOGLOBIN 11.3 g/dl (13.5-17.5)
[2017-08-04 04:30] LABS: ALBUMIN 2.9 GM/DL (3.2-5.2); ALBUMIN/GLOBULIN RATIO 0.73 (1.00-1.93); ALKALINE PHOSPHATASE 59 U/L (45-117); ALT/SGPT 63 U/L (12-78); ANION GAP 12 MEQ/L (8-16); AST/SGOT 42 U/L (7-37); BILIRUBIN,TOTAL 0.4 MG/DL (0.2-1.0); BLOOD UREA NITROGEN 46 MG/DL (7-18); CALCIUM LEVEL 8.6 MG/DL (8.8-10.2); CARBON DIOXIDE LEVEL 30 MEQ/L (21-32); CHLORIDE LEVEL 95 MEQ/L (98-107); CPK CREATINE PHOSPHOKINASE 40 U/L (39-308); GLOMERULAR FILTRATION RATE 38.2 (>49); GLUCOSE, FASTING 325 MG/DL (70-100); MAGNESIUM LEVEL 1.7 MG/DL (1.8-2.4); POTASSIUM SERUM 4.1 MEQ/L (3.5-5.1); SODIUM LEVEL 137 MEQ/L (136-145); TOTAL PROTEIN 6.9 GM/DL (6.4-8.2); TROPONIN I 0.03 NG/ML (< 0.10)
[2017-08-04 04:31] LABS: CK-MB VALUE MASS 2.5 NG/ML (<3.6); MB/CK RELATIVE INDEX 6.25 (< OR =4)
[2017-08-04] MEDS: PIPERACILLIN/TAZOBACTAM SOD 4.5 GM in D5W MINI-BAG PLUS 50 ML IV ×3 (04:33→20:36)
[2017-08-04 06:50] LABS: BEDSIDE GLUCOSE 322 MG/DL (80-115)
[2017-08-04] MEDS: IPRATROPIUM 0.5MG/ALBUTEROL 2.5MG INH SOL UD 3ML (DUONEB)(J7620) NEB ×4 (07:31→20:55)
[2017-08-04] MEDS: HumaLOG INSULIN (NovoLOG) PER UNIT SC ×4 (07:52→20:38)
[2017-08-04] MEDS: FERROUS SULFATE 325MG TAB PO (09:45)
[2017-08-04] MEDS: APIXABAN 5 MG TAB (ELIQUIS) PO ×2 (09:45→20:37)
[2017-08-04] MEDS: LACTOBACILLUS ACIDOPHILUS CAP (BACID) PO ×3 (09:45→20:36)
[2017-08-04] MEDS: GABAPENTIN 300 MG CAP PO ×3 (09:45→20:36)
[2017-08-04] MEDS: CYANOCOBALAMIN 500 MCG TAB PO (09:45)
[2017-08-04] MEDS: ASPIRIN 81 MG ENTERIC TAB PO (09:45)
[2017-08-04] MEDS: ALLOPURINOL 300 MG TAB PO (09:46)
[2017-08-04] MEDS: ISOSORBIDE MON. (IMDUR) 60 MG XR TAB PO (09:46)
[2017-08-04] MEDS: ATENOLOL 25 MG TAB PO (09:47)
[2017-08-04] MEDS: LEVEMIR (INSULIN DETEMIR) 1 UNITS/0.01ML SC ×2 (09:49→20:37)
[2017-08-04] MEDS: rOPINIRole 1MG TAB PO (09:53)
[2017-08-04] MEDS: ZONISAMIDE 50 MG CAP (ZONEGRAN) PO ×2 (09:53→20:36)
[2017-08-04 11:33] LABS: BEDSIDE GLUCOSE 352 MG/DL (80-115)
[2017-08-04 12:06] LABS: CK-MB VALUE MASS 2.4 NG/ML (<3.6); CPK CREATINE PHOSPHOKINASE 34 U/L (39-308); MB/CK RELATIVE INDEX 7.05 (< OR =4); TROPONIN I 0.02 NG/ML (< 0.10)
[2017-08-04 17:10] LABS: BEDSIDE GLUCOSE 371 MG/DL (80-115)
[2017-08-04 20:11] LABS: BEDSIDE GLUCOSE 319 MG/DL (80-115)
[2017-08-04] MEDS: PRAVASTATIN 20 MG TAB PO (20:36)
[2017-08-04] MEDS: PANTOPRAZOLE 40MG TAB (PROTONIX) PO (20:36)
[2017-08-04] MEDS: SERTRALINE HCL 50 MG TAB PO (20:37)
[2017-08-04] MEDS: rOPINIRole 2MG TAB PO (20:42)
[2017-08-04 22:40] LABS: IMMUNOGLOBULIN G 711 MG/DL (681-1648)
[2017-08-04] MEDS: diphenhydrAMINE 50 MG CAP PO (22:49)
[2017-08-04] MEDS: ACETAMINOPHEN 500 MG TAB PO (22:49)
[2017-08-05] MEDS: IMMUNE GLOBULIN 10% 10GM 100ML 10 GM in APPROPRIATE DILUENT 1 EA IV (00:50)
[2017-08-05] MEDS: methylPREDNISolone INJ 125 MG/2 ML VIAL (J2930) IV ×2 (01:28→09:09)
[2017-08-05] MEDS: IMMUNE GLOBULIN 10% 20GM 200ML 20 GM in APPROPRIATE DILUENT 1 EA IV (01:43)
[2017-08-05] MEDS: VANCOMYCIN HCL 1,000 MG, VIAL MATE ADAPTER 1 EACH in D5W 250 ML IV ×2 (03:38→15:05)
[2017-08-05 06:39] LABS: BASO % 0.1 % (0.0-1.0); HEMATOCRIT 35.2 % (42.0-52.0); HEMOGLOBIN 11.1 g/dl (13.5-17.5); IMMATURE GRANULOCYTE % 1.9 % (0-3.0); LYMPH # 0.5 10^3/uL (1.5-4.5); LYMPH % 2.8 % (24.0-44.0); MEAN CORPUSCULAR HEMOGLOBIN 31.4 pg (27.0-33.0); MEAN CORPUSCULAR HGB CONC 31.5 g/dl (32.0-36.5); MEAN CORPUSCULAR VOLUME 99.7 fl (80.0-96.0); MONO # 0.4 10^3/uL (0.0-0.8); MONO % 2.2 % (0.0-5.0); NEUTROPHILS # 15.3 10^3/uL (1.8-7.7); PLATELET COUNT, AUTOMATED 143 10^3/uL (150-450); RED BLOOD COUNT 3.53 10^6/uL (4.30-6.10); RED CELL DISTRIBUTION WIDTH 16.2 % (11.5-14.5); WHITE BLOOD COUNT 16.5 10^3/uL (4.0-10.0)
[2017-08-05 07:05] LABS: ALBUMIN/GLOBULIN RATIO 0.68 (1.00-1.93); ALKALINE PHOSPHATASE 61 U/L (45-117); ALT/SGPT 60 U/L (12-78); ANION GAP 12 MEQ/L (8-16); AST/SGOT 28 U/L (7-37); BILIRUBIN,TOTAL 0.3 MG/DL (0.2-1.0); BLOOD UREA NITROGEN 58 MG/DL (7-18); CALCIUM LEVEL 8.8 MG/DL (8.8-10.2); CARBON DIOXIDE LEVEL 28 MEQ/L (21-32); CHLORIDE LEVEL 93 MEQ/L (98-107); GLOMERULAR FILTRATION RATE 38.2 (>49); GLUCOSE, FASTING 361 MG/DL (70-100); MAGNESIUM LEVEL 1.7 MG/DL (1.8-2.4); POTASSIUM SERUM 3.8 MEQ/L (3.5-5.1); SODIUM LEVEL 133 MEQ/L (136-145); TOTAL PROTEIN 7.4 GM/DL (6.4-8.2)
[2017-08-05] MEDS: MAG SULF 1GM/100ML (MAG RUN) 1 GM in APPROPRIATE DILUENT 1 EA IV (07:25)
[2017-08-05] MEDS: HumaLOG INSULIN (NovoLOG) PER UNIT SC ×3 (07:25→17:09)
[2017-08-05] MEDS: IPRATROPIUM 0.5MG/ALBUTEROL 2.5MG INH SOL UD 3ML (DUONEB)(J7620) NEB ×5 (08:00→20:34)
[2017-08-05] MEDS ORDERED: IMMUNE GLOBULIN 10% 10GM 100ML 0 GM in APPROPRIATE DILUENT 1 EA IV (09:00)
[2017-08-05] MEDS: LEVEMIR (INSULIN DETEMIR) 1 UNITS/0.01ML SC ×2 (09:08→21:26)
[2017-08-05] MEDS: ATENOLOL 25 MG TAB PO (09:09)
[2017-08-05] MEDS: LACTOBACILLUS ACIDOPHILUS CAP (BACID) PO ×3 (09:09→21:27)
[2017-08-05] MEDS: ALLOPURINOL 300 MG TAB PO (09:10)
[2017-08-05] MEDS: ZONISAMIDE 50 MG CAP (ZONEGRAN) PO ×2 (09:10→21:27)
[2017-08-05] MEDS: CYANOCOBALAMIN 500 MCG TAB PO (09:10)
[2017-08-05] MEDS: BACTRIM 160MG/800MG DS TAB PO (09:10)
[2017-08-05] MEDS: ASPIRIN 81 MG ENTERIC TAB PO (09:10)
[2017-08-05] MEDS: FUROSEMIDE 40 MG/4 ML VIAL (J1940) IV (09:10)
[2017-08-05] MEDS: APIXABAN 5 MG TAB (ELIQUIS) PO ×2 (09:10→21:27)
[2017-08-05] MEDS: FERROUS SULFATE 325MG TAB PO (09:10)
[2017-08-05] MEDS: rOPINIRole 1MG TAB PO (09:10)
[2017-08-05] MEDS: ISOSORBIDE MON. (IMDUR) 60 MG XR TAB PO (09:11)
[2017-08-05] MEDS: GABAPENTIN 300 MG CAP PO ×3 (09:11→21:27)
[2017-08-05 11:27] LABS: BEDSIDE GLUCOSE 352 MG/DL (80-115)
[2017-08-05 14:37] LABS: VANCOMYCIN LEVEL TROUGH 18.5 UG/ML (10.0-20.0)
[2017-08-05 16:40] LABS: BEDSIDE GLUCOSE 379 MG/DL (80-115)
[2017-08-05] MEDS: ACETAMINOPHEN TAB 650MG DOSE (2X325MG) PO (19:20)
[2017-08-05 20:54] LABS: BEDSIDE GLUCOSE 463 MG/DL (80-115)
[2017-08-05] MEDS: SERTRALINE HCL 50 MG TAB PO (21:26)
[2017-08-05] MEDS: PANTOPRAZOLE 40MG TAB (PROTONIX) PO (21:26)
[2017-08-05] MEDS: rOPINIRole 2MG TAB PO (21:27)
[2017-08-05] MEDS: PRAVASTATIN 20 MG TAB PO (21:27)
[2017-08-05] MEDS: predniSONE 20 MG TAB PO (21:27)
[2017-08-06] MEDS: VANCOMYCIN HCL 1,000 MG, VIAL MATE ADAPTER 1 EACH in D5W 250 ML IV ×2 (03:00→14:09)
[2017-08-06 06:53] LABS: BASO # 0.1 10^3/uL (0.0-0.2); BASO % 0.4 % (0.0-1.0); HEMATOCRIT 35.2 % (42.0-52.0); HEMOGLOBIN 11.4 g/dl (13.5-17.5); IMMATURE GRANULOCYTE % 4.3 % (0-3.0); LYMPH # 0.4 10^3/uL (1.5-4.5); LYMPH % 2.9 % (24.0-44.0); MEAN CORPUSCULAR HGB CONC 32.4 g/dl (32.0-36.5); MEAN CORPUSCULAR VOLUME 98.9 fl (80.0-96.0); MONO # 0.5 10^3/uL (0.0-0.8); MONO % 3.4 % (0.0-5.0); PLATELET COUNT, AUTOMATED 143 10^3/uL (150-450); RED BLOOD COUNT 3.56 10^6/uL (4.30-6.10); RED CELL DISTRIBUTION WIDTH 15.9 % (11.5-14.5); WHITE BLOOD COUNT 13.5 10^3/uL (4.0-10.0)
[2017-08-06] MEDS: IPRATROPIUM 0.5MG/ALBUTEROL 2.5MG INH SOL UD 3ML (DUONEB)(J7620) NEB ×4 (07:13→20:35)
[2017-08-06 07:14] LABS: ALBUMIN/GLOBULIN RATIO 0.68 (1.00-1.93); ALKALINE PHOSPHATASE 70 U/L (45-117); ALT/SGPT 61 U/L (12-78); ANION GAP 13 MEQ/L (8-16); AST/SGOT 31 U/L (7-37); BILIRUBIN,TOTAL 0.3 MG/DL (0.2-1.0); BLOOD UREA NITROGEN 52 MG/DL (7-18); CALCIUM LEVEL 9.1 MG/DL (8.8-10.2); CARBON DIOXIDE LEVEL 27 MEQ/L (21-32); CHLORIDE LEVEL 96 MEQ/L (98-107); CREATININE FOR GFR 1.66 MG/DL (0.70-1.30); GLOMERULAR FILTRATION RATE 44.6 (>49); GLUCOSE, FASTING 373 MG/DL (70-100); MAGNESIUM LEVEL 2.2 MG/DL (1.8-2.4); SODIUM LEVEL 136 MEQ/L (136-145); TOTAL PROTEIN 7.4 GM/DL (6.4-8.2)
[2017-08-06] MEDS: LEVEMIR (INSULIN DETEMIR) 1 UNITS/0.01ML SC ×2 (08:11→21:42)
[2017-08-06] MEDS: HumaLOG INSULIN (NovoLOG) PER UNIT SC ×3 (08:11→16:55)
[2017-08-06] MEDS: GABAPENTIN 300 MG CAP PO ×3 (08:12→21:40)
[2017-08-06] MEDS: ATENOLOL 25 MG TAB PO (08:12)
[2017-08-06] MEDS: rOPINIRole 1MG TAB PO (08:13)
[2017-08-06] MEDS: LACTOBACILLUS ACIDOPHILUS CAP (BACID) PO ×3 (08:13→21:42)
[2017-08-06] MEDS: ALLOPURINOL 300 MG TAB PO (08:13)
[2017-08-06] MEDS: FERROUS SULFATE 325MG TAB PO (08:14)
[2017-08-06] MEDS: APIXABAN 5 MG TAB (ELIQUIS) PO ×2 (08:14→21:41)
[2017-08-06] MEDS: predniSONE 20 MG TAB PO ×3 (08:15→21:41)
[2017-08-06] MEDS: ASPIRIN 81 MG ENTERIC TAB PO (08:15)
[2017-08-06] MEDS: CYANOCOBALAMIN 500 MCG TAB PO (08:16)
[2017-08-06] MEDS: ISOSORBIDE MON. (IMDUR) 60 MG XR TAB PO (08:16)
[2017-08-06] MEDS: ZONISAMIDE 50 MG CAP (ZONEGRAN) PO ×2 (10:13→21:42)
[2017-08-06 11:33] LABS: BEDSIDE GLUCOSE 360 MG/DL (80-115)
[2017-08-06] MEDS: ACETAMINOPHEN TAB 650MG DOSE (2X325MG) PO (14:08)
[2017-08-06 16:49] LABS: BEDSIDE GLUCOSE 376 MG/DL (80-115)
[2017-08-06 21:28] LABS: BEDSIDE GLUCOSE 348 MG/DL (80-115)
[2017-08-06] MEDS: SERTRALINE HCL 50 MG TAB PO (21:41)
[2017-08-06] MEDS: PANTOPRAZOLE 40MG TAB (PROTONIX) PO (21:41)
[2017-08-06] MEDS: PRAVASTATIN 20 MG TAB PO (21:41)
[2017-08-06] MEDS: rOPINIRole 2MG TAB PO (21:42)
[2017-08-07] MEDS: VANCOMYCIN HCL 1,000 MG, VIAL MATE ADAPTER 1 EACH in D5W 250 ML IV ×2 (02:21→15:34)
[2017-08-07 07:03] LABS: HEMATOCRIT 37.4 % (42.0-52.0); HEMOGLOBIN 12.2 g/dl (13.5-17.5); MEAN CORPUSCULAR HEMOGLOBIN 32.4 pg (27.0-33.0); MEAN CORPUSCULAR HGB CONC 32.6 g/dl (32.0-36.5); MEAN CORPUSCULAR VOLUME 99.5 fl (80.0-96.0); PLATELET COUNT, AUTOMATED 162 10^3/uL (150-450); RED BLOOD COUNT 3.76 10^6/uL (4.30-6.10); RED CELL DISTRIBUTION WIDTH 15.9 % (11.5-14.5); WHITE BLOOD COUNT 14.2 10^3/uL (4.0-10.0)
[2017-08-07 07:09] LABS: ADD MANUAL DIFFER YES; DIFF SLIDE NUMBER 23; POS COUNT POS FLAG; POSITIVE MORPH POS FLAG
[2017-08-07] MEDS: IPRATROPIUM 0.5MG/ALBUTEROL 2.5MG INH SOL UD 3ML (DUONEB)(J7620) NEB ×4 (07:17→19:26)
[2017-08-07 07:29] LABS: BANDS 2 % (< 11); BASOPHILS 1 % (0-4); LYMPHOCYTES 2 % (16-52); MONOCYTES 6 % (0-8); NEUTROPHILS 89 % (35-75)
[2017-08-07] MEDS: HumaLOG INSULIN (NovoLOG) PER UNIT SC ×4 (07:30→17:03)
[2017-08-07 07:31] LABS: ANISOCYTOSIS 2+; HYPOCHROMASIA 1+; PLATELET ESTIMATE NORMAL (NORMAL)
[2017-08-07 07:32] LABS: ALBUMIN 3.3 GM/DL (3.2-5.2); ALKALINE PHOSPHATASE 80 U/L (45-117); ALT/SGPT 93 U/L (12-78); ANION GAP 15 MEQ/L (8-16); AST/SGOT 62 U/L (7-37); BILIRUBIN,TOTAL 0.3 MG/DL (0.2-1.0); BLOOD UREA NITROGEN 48 MG/DL (7-18); CALCIUM LEVEL 9.3 MG/DL (8.8-10.2); CARBON DIOXIDE LEVEL 25 MEQ/L (21-32); CHLORIDE LEVEL 97 MEQ/L (98-107); CREATININE FOR GFR 1.66 MG/DL (0.70-1.30); GLOMERULAR FILTRATION RATE 44.6 (>49); GLUCOSE, FASTING 324 MG/DL (70-100); MAGNESIUM LEVEL 2.3 MG/DL (1.8-2.4); POLYCHROMASIA 1+; POTASSIUM SERUM 4.4 MEQ/L (3.5-5.1); SODIUM LEVEL 137 MEQ/L (136-145); TOTAL PROTEIN 7.4 GM/DL (6.4-8.2)
[2017-08-07] MEDS: LEVEMIR (INSULIN DETEMIR) 1 UNITS/0.01ML SC ×3 (08:01→20:38)
[2017-08-07] MEDS: BACTRIM 160MG/800MG DS TAB PO (08:02)
[2017-08-07] MEDS: ATENOLOL 25 MG TAB PO (08:02)
[2017-08-07] MEDS: ISOSORBIDE MON. (IMDUR) 60 MG XR TAB PO (08:03)
[2017-08-07] MEDS: CYANOCOBALAMIN 500 MCG TAB PO (08:03)
[2017-08-07] MEDS: ZONISAMIDE 50 MG CAP (ZONEGRAN) PO ×2 (08:03→20:37)
[2017-08-07] MEDS: LACTOBACILLUS ACIDOPHILUS CAP (BACID) PO ×3 (08:03→20:37)
[2017-08-07] MEDS: predniSONE 20 MG TAB PO ×3 (08:04→20:38)
[2017-08-07] MEDS: GABAPENTIN 300 MG CAP PO ×3 (08:04→20:37)
[2017-08-07] MEDS: ASPIRIN 81 MG ENTERIC TAB PO (08:05)
[2017-08-07] MEDS: rOPINIRole 1MG TAB PO (08:05)
[2017-08-07] MEDS: FERROUS SULFATE 325MG TAB PO (08:06)
[2017-08-07] MEDS: ALLOPURINOL 300 MG TAB PO (08:56)
[2017-08-07] MEDS: APIXABAN 5 MG TAB (ELIQUIS) PO ×2 (08:56→20:37)
[2017-08-07] MEDS ORDERED: FUROSEMIDE 40 MG/4 ML VIAL (J1940) IV (09:00)
[2017-08-07 11:27] LABS: BEDSIDE GLUCOSE 301 MG/DL (80-115)
[2017-08-07 16:44] LABS: BEDSIDE GLUCOSE 271 MG/DL (80-115)
[2017-08-07 20:24] LABS: BEDSIDE GLUCOSE 338 MG/DL (80-115)
[2017-08-07] MEDS: rOPINIRole 2MG TAB PO (20:37)
[2017-08-07] MEDS: PANTOPRAZOLE 40MG TAB (PROTONIX) PO (20:37)
[2017-08-07] MEDS: PRAVASTATIN 20 MG TAB PO (20:37)
[2017-08-07] MEDS: SERTRALINE HCL 50 MG TAB PO (20:38)
[2017-08-08] MEDS: VANCOMYCIN HCL 1,000 MG, VIAL MATE ADAPTER 1 EACH in D5W 250 ML IV ×2 (02:28→15:04)
[2017-08-08 06:14] LABS: HEMATOCRIT 36.2 % (42.0-52.0); HEMOGLOBIN 11.9 g/dl (13.5-17.5); MEAN CORPUSCULAR HEMOGLOBIN 32.4 pg (27.0-33.0); MEAN CORPUSCULAR HGB CONC 32.9 g/dl (32.0-36.5); MEAN CORPUSCULAR VOLUME 98.6 fl (80.0-96.0); PLATELET COUNT, AUTOMATED 148 10^3/uL (150-450); RED BLOOD COUNT 3.67 10^6/uL (4.30-6.10); RED CELL DISTRIBUTION WIDTH 15.8 % (11.5-14.5); WHITE BLOOD COUNT 12.4 10^3/uL (4.0-10.0)
[2017-08-08 06:23] LABS: POS COUNT POS FLAG; POSITIVE MORPH POS FLAG
[2017-08-08 06:24] LABS: ADD MANUAL DIFFER YES; DIFF SLIDE NUMBER 15
[2017-08-08 06:54] LABS: ALBUMIN 3.1 GM/DL (3.2-5.2); ALBUMIN/GLOBULIN RATIO 0.76 (1.00-1.93); ALKALINE PHOSPHATASE 111 U/L (45-117); ALT/SGPT 117 U/L (12-78); ANION GAP 13 MEQ/L (8-16); AST/SGOT 90 U/L (7-37); BILIRUBIN,TOTAL 0.3 MG/DL (0.2-1.0); BLOOD UREA NITROGEN 46 MG/DL (7-18); CALCIUM LEVEL 9.2 MG/DL (8.8-10.2); CARBON DIOXIDE LEVEL 26 MEQ/L (21-32); CHLORIDE LEVEL 99 MEQ/L (98-107); CREATININE FOR GFR 1.52 MG/DL (0.70-1.30); GLOMERULAR FILTRATION RATE 49.4 (>49); MAGNESIUM LEVEL 2.5 MG/DL (1.8-2.4); POTASSIUM SERUM 4.5 MEQ/L (3.5-5.1); SODIUM LEVEL 138 MEQ/L (136-145); TOTAL PROTEIN 7.2 GM/DL (6.4-8.2)
[2017-08-08 07:04] LABS: GLUCOSE, FASTING 412 MG/DL (70-100)
[2017-08-08] MEDS: IPRATROPIUM 0.5MG/ALBUTEROL 2.5MG INH SOL UD 3ML (DUONEB)(J7620) NEB ×4 (07:04→20:16)
[2017-08-08 07:09] LABS: BANDS 2 % (< 11); LYMPHOCYTES 4 % (16-52); METAMYELOCYTES 1 % (0-0); MONOCYTES 4 % (0-8); MYELOCYTES 5 % (0-0); NEUTROPHILS 83 % (35-75); PROMYELOCYTES 1 % (0-0)
[2017-08-08 07:10] LABS: ANISOCYTOSIS 1+; PLATELET ESTIMATE DECREASED (NORMAL)
[2017-08-08] MEDS: HumaLOG INSULIN (NovoLOG) PER UNIT SC ×3 (08:34→17:07)
[2017-08-08] MEDS: CYANOCOBALAMIN 500 MCG TAB PO (08:35)
[2017-08-08] MEDS: ASPIRIN 81 MG ENTERIC TAB PO (08:35)
[2017-08-08] MEDS: LACTOBACILLUS ACIDOPHILUS CAP (BACID) PO ×3 (08:35→21:24)
[2017-08-08] MEDS: FERROUS SULFATE 325MG TAB PO (08:35)
[2017-08-08] MEDS: GABAPENTIN 300 MG CAP PO ×3 (08:35→21:24)
[2017-08-08] MEDS: ZONISAMIDE 50 MG CAP (ZONEGRAN) PO ×2 (08:35→21:24)
[2017-08-08] MEDS: ALLOPURINOL 300 MG TAB PO (08:35)
[2017-08-08] MEDS: LEVEMIR (INSULIN DETEMIR) 1 UNITS/0.01ML SC ×2 (08:35→21:24)
[2017-08-08] MEDS: predniSONE 20 MG TAB PO ×3 (08:35→21:24)
[2017-08-08] MEDS: rOPINIRole 1MG TAB PO (08:35)
[2017-08-08] MEDS: APIXABAN 5 MG TAB (ELIQUIS) PO ×2 (08:35→21:24)
[2017-08-08] MEDS: ISOSORBIDE MON. (IMDUR) 60 MG XR TAB PO (08:36)
[2017-08-08] MEDS: ATENOLOL 25 MG TAB PO (08:36)
[2017-08-08 11:29] LABS: BEDSIDE GLUCOSE 252 MG/DL (80-115)
[2017-08-08 16:26] LABS: BEDSIDE GLUCOSE 232 MG/DL (80-115)
[2017-08-08 20:12] LABS: BEDSIDE GLUCOSE 312 MG/DL (80-115)
[2017-08-08] MEDS: rOPINIRole 2MG TAB PO (21:24)
[2017-08-08] MEDS: PRAVASTATIN 20 MG TAB PO (21:24)
[2017-08-08] MEDS: SERTRALINE HCL 50 MG TAB PO (21:24)
[2017-08-08] MEDS: PANTOPRAZOLE 40MG TAB (PROTONIX) PO (21:24)
[2017-08-09] MEDS: VANCOMYCIN HCL 1,000 MG, VIAL MATE ADAPTER 1 EACH in D5W 250 ML IV ×2 (03:47→15:40)
[2017-08-09 06:08] LABS: ALBUMIN 3.1 GM/DL (3.2-5.2); ALBUMIN/GLOBULIN RATIO 0.84 (1.00-1.93); ALKALINE PHOSPHATASE 100 U/L (45-117); ALT/SGPT 125 U/L (12-78); ANION GAP 16 MEQ/L (8-16); AST/SGOT 79 U/L (7-37); BILIRUBIN,TOTAL 0.4 MG/DL (0.2-1.0); BLOOD UREA NITROGEN 44 MG/DL (7-18); CALCIUM LEVEL 9.2 MG/DL (8.8-10.2); CARBON DIOXIDE LEVEL 22 MEQ/L (21-32); CHLORIDE LEVEL 99 MEQ/L (98-107); CREATININE FOR GFR 1.62 MG/DL (0.70-1.30); GLOMERULAR FILTRATION RATE 45.9 (>49); GLUCOSE, FASTING 387 MG/DL (70-100); MAGNESIUM LEVEL 2.4 MG/DL (1.8-2.4); POTASSIUM SERUM 4.8 MEQ/L (3.5-5.1); SODIUM LEVEL 137 MEQ/L (136-145); TOTAL PROTEIN 6.8 GM/DL (6.4-8.2)
[2017-08-09 06:20] LABS: HEMATOCRIT 37.7 % (42.0-52.0); HEMOGLOBIN 12.3 g/dl (13.5-17.5); MEAN CORPUSCULAR HEMOGLOBIN 31.9 pg (27.0-33.0); MEAN CORPUSCULAR HGB CONC 32.6 g/dl (32.0-36.5); MEAN CORPUSCULAR VOLUME 97.7 fl (80.0-96.0); PLATELET COUNT, AUTOMATED 139 10^3/uL (150-450); RED BLOOD COUNT 3.86 10^6/uL (4.30-6.10); RED CELL DISTRIBUTION WIDTH 15.6 % (11.5-14.5); WHITE BLOOD COUNT 15.3 10^3/uL (4.0-10.0)
[2017-08-09 06:21] LABS: ADD MANUAL DIFFER YES; DIFF SLIDE NUMBER 13; POS COUNT POS FLAG; POSITIVE MORPH POS FLAG
[2017-08-09 06:42] LABS: BANDS 1 % (< 11); EOSINOPHILS 1 % (0-5); LYMPHOCYTES 6 % (16-52); METAMYELOCYTES 1 % (0-0); MONOCYTES 1 % (0-8); MYELOCYTES 3 % (0-0); NEUTROPHILS 87 % (35-75); PLATELET ESTIMATE DECREASED (NORMAL)
[2017-08-09 06:43] LABS: ANISOCYTOSIS 1+
[2017-08-09] MEDS: IPRATROPIUM 0.5MG/ALBUTEROL 2.5MG INH SOL UD 3ML (DUONEB)(J7620) NEB ×4 (07:16→20:24)
[2017-08-09] MEDS: FUROSEMIDE 40 MG/4 ML VIAL (J1940) IV (08:56)
[2017-08-09] MEDS: HumaLOG INSULIN (NovoLOG) PER UNIT SC ×3 (08:56→17:39)
[2017-08-09] MEDS: LACTOBACILLUS ACIDOPHILUS CAP (BACID) PO ×3 (08:57→20:28)
[2017-08-09] MEDS: ASPIRIN 81 MG ENTERIC TAB PO (08:57)
[2017-08-09] MEDS: LEVEMIR (INSULIN DETEMIR) 1 UNITS/0.01ML SC ×2 (08:57→20:28)
[2017-08-09] MEDS: APIXABAN 5 MG TAB (ELIQUIS) PO ×2 (08:57→20:27)
[2017-08-09] MEDS: ZONISAMIDE 50 MG CAP (ZONEGRAN) PO ×2 (08:57→20:28)
[2017-08-09] MEDS: ALLOPURINOL 300 MG TAB PO (08:58)
[2017-08-09] MEDS: rOPINIRole 1MG TAB PO (08:58)
[2017-08-09] MEDS: GABAPENTIN 300 MG CAP PO ×3 (08:58→20:27)
[2017-08-09] MEDS: FERROUS SULFATE 325MG TAB PO (08:58)
[2017-08-09] MEDS: predniSONE 20 MG TAB PO ×2 (08:58→20:28)
[2017-08-09] MEDS: CYANOCOBALAMIN 500 MCG TAB PO (08:58)
[2017-08-09] MEDS: ISOSORBIDE MON. (IMDUR) 60 MG XR TAB PO (08:59)
[2017-08-09] MEDS: ATENOLOL 25 MG TAB PO (08:59)
[2017-08-09 12:02] LABS: BEDSIDE GLUCOSE 219 MG/DL (80-115)
[2017-08-09 16:36] LABS: BEDSIDE GLUCOSE 279 MG/DL (80-115)
[2017-08-09] MEDS: PRAVASTATIN 20 MG TAB PO (20:27)
[2017-08-09] MEDS: SERTRALINE HCL 50 MG TAB PO (20:27)
[2017-08-09] MEDS: PANTOPRAZOLE 40MG TAB (PROTONIX) PO (20:27)
[2017-08-09] MEDS: rOPINIRole 2MG TAB PO (20:28)
[2017-08-09] MEDS ORDERED: APIXABAN 5 MG TAB (ELIQUIS) PO (21:00)
[2017-08-09 21:06] LABS: BEDSIDE GLUCOSE 243 MG/DL (80-115)
[2017-08-10] MEDS: VANCOMYCIN HCL 1,000 MG, VIAL MATE ADAPTER 1 EACH in D5W 250 ML IV (03:00)
[2017-08-10 07:00] LABS: HEMATOCRIT 38.1 % (42.0-52.0); HEMOGLOBIN 12.2 g/dl (13.5-17.5); MEAN CORPUSCULAR HEMOGLOBIN 31.7 pg (27.0-33.0); PLATELET COUNT, AUTOMATED 158 10^3/uL (150-450); RED BLOOD COUNT 3.85 10^6/uL (4.30-6.10); RED CELL DISTRIBUTION WIDTH 15.6 % (11.5-14.5); WHITE BLOOD COUNT 16.2 10^3/uL (4.0-10.0)
[2017-08-10 07:13] LABS: ADD MANUAL DIFFER YES; DIFF SLIDE NUMBER 12; POS COUNT POS FLAG; POSITIVE MORPH POS FLAG
[2017-08-10 07:28] LABS: ALBUMIN 3.1 GM/DL (3.2-5.2); ALBUMIN/GLOBULIN RATIO 0.86 (1.00-1.93); ALKALINE PHOSPHATASE 119 U/L (45-117); ALT/SGPT 156 U/L (12-78); ANION GAP 13 MEQ/L (8-16); AST/SGOT 113 U/L (7-37); BILIRUBIN,TOTAL 0.5 MG/DL (0.2-1.0); BLOOD UREA NITROGEN 54 MG/DL (7-18); CALCIUM LEVEL 8.9 MG/DL (8.8-10.2); CARBON DIOXIDE LEVEL 24 MEQ/L (21-32); CHLORIDE LEVEL 99 MEQ/L (98-107); CREATININE FOR GFR 1.76 MG/DL (0.70-1.30); GLOMERULAR FILTRATION RATE 41.7 (>49); GLUCOSE, FASTING 377 MG/DL (70-100); MAGNESIUM LEVEL 2.1 MG/DL (1.8-2.4); POTASSIUM SERUM 4.9 MEQ/L (3.5-5.1); SODIUM LEVEL 136 MEQ/L (136-145); TOTAL PROTEIN 6.7 GM/DL (6.4-8.2)
[2017-08-10 07:41] LABS: BANDS 3 % (< 11); LYMPHOCYTES 4 % (16-52); METAMYELOCYTES 2 % (0-0); MONOCYTES 1 % (0-8); MYELOCYTES 8 % (0-0); NEUTROPHILS 82 % (35-75)
[2017-08-10 07:42] LABS: PLATELET CLUMPS SMALL AMT; PLATELET ESTIMATE NORMAL (NORMAL); POIKILOCYTOSIS 1+
[2017-08-10] MEDS: rOPINIRole 1MG TAB PO (08:35)
[2017-08-10] MEDS: ASPIRIN 81 MG ENTERIC TAB PO (08:35)
[2017-08-10] MEDS: LEVEMIR (INSULIN DETEMIR) 1 UNITS/0.01ML SC (08:35)
[2017-08-10] MEDS: BACTRIM 160MG/800MG DS TAB PO (08:35)
[2017-08-10] MEDS: HumaLOG INSULIN (NovoLOG) PER UNIT SC (08:35)
[2017-08-10] MEDS: CYANOCOBALAMIN 500 MCG TAB PO (08:35)
[2017-08-10] MEDS: ALLOPURINOL 300 MG TAB PO (08:35)
[2017-08-10] MEDS: APIXABAN 5 MG TAB (ELIQUIS) PO (08:36)
[2017-08-10] MEDS: FERROUS SULFATE 325MG TAB PO (08:36)
[2017-08-10] MEDS: predniSONE 20 MG TAB PO (08:36)
[2017-08-10] MEDS: ZONISAMIDE 50 MG CAP (ZONEGRAN) PO (08:36)
[2017-08-10] MEDS: ISOSORBIDE MON. (IMDUR) 60 MG XR TAB PO (08:36)
[2017-08-10] MEDS: LACTOBACILLUS ACIDOPHILUS CAP (BACID) PO (08:36)
[2017-08-10] MEDS: GABAPENTIN 300 MG CAP PO (08:37)
[2017-08-10] MEDS: ATENOLOL 25 MG TAB PO (08:37)
[2017-08-10] MEDS: IPRATROPIUM 0.5MG/ALBUTEROL 2.5MG INH SOL UD 3ML (DUONEB)(J7620) NEB (08:40)
[2017-08-11] MEDS ORDERED: UNRESOLVED CLARIFICATION ENTRY XX (00:01)
== END 2017-08-10 12:10 | DRG 291 ==
LOC: M MS5PR 08-04 14:55 → M ED 08:13 → M ED INP 13:11
DX: I13.0 Hypertensive heart and chronic kidney disease with heart failure and stage 1 through stage 4 chronic kidney disease, or unspecified chronic kidney disease (principal); I50.33 Acute on chronic diastolic (congestive) heart failure; J18.9 Pneumonia, unspecified organism; J96.21 Acute and chronic respiratory failure with hypoxia; J44.1 Chronic obstructive pulmonary disease with (acute) exacerbation; J44.0 Chronic obstructive pulmonary disease with (acute) lower respiratory infection; E27.40 Unspecified adrenocortical insufficiency; E89.6 Postprocedural adrenocortical (-medullary) hypofunction; D80.1 Nonfamilial hypogammaglobulinemia; N18.3 Chronic kidney disease, stage 3 (moderate); G25.81 Restless legs syndrome; E83.42 Hypomagnesemia; B95.62 Methicillin resistant Staphylococcus aureus infection as the cause of diseases classified elsewhere; E53.8 Deficiency of other specified B group vitamins; E66.01 Morbid (severe) obesity due to excess calories; D63.1 Anemia in chronic kidney disease; R73.9 Hyperglycemia, unspecified; T38.0X5A Adverse effect of glucocorticoids and synthetic analogues, initial encounter; M10.9 Gout, unspecified; G47.33 Obstructive sleep apnea (adult) (pediatric); F32.9 Major depressive disorder, single episode, unspecified; F41.9 Anxiety disorder, unspecified; K21.9 Gastro-esophageal reflux disease without esophagitis; E11.22 Type 2 diabetes mellitus with diabetic chronic kidney disease; I48.91 Unspecified atrial fibrillation; Z87.01 Personal history of pneumonia (recurrent); Z86.14 Personal history of Methicillin resistant Staphylococcus aureus infection; Z85.118 Personal history of other malignant neoplasm of bronchus and lung; Z99.81 Dependence on supplemental oxygen; Z90.5 Acquired absence of kidney; Z90.2 Acquired absence of lung [part of]; Z90.49 Acquired absence of other specified parts of digestive tract; Z90.6 Acquired absence of other parts of urinary tract; Z79.82 Long term (current) use of aspirin; Z79.51 Long term (current) use of inhaled steroids; Z79.01 Long term (current) use of anticoagulants; Z79.4 Long term (current) use of insulin; Z79.52 Long term (current) use of systemic steroids; Z88.8 Allergy status to other drugs, medicaments and biological substances

== ENCOUNTER 2017-08-09 06:00 | Outpatient (REF) ==
[2017-08-16 10:16] LABS: VANCOMYCIN LEVEL TROUGH 16.3 UG/ML (10.0-20.0)
== END 2017-08-16 ==
DX: Z51.81 Encounter for therapeutic drug level monitoring (principal); Z79.899 Other long term (current) drug therapy

== ENCOUNTER → 2017-08-13 | Outpatient (REF) ==
[2017-08-13 13:33] LABS: HEMATOCRIT 41.4 % (42.0-52.0); HEMOGLOBIN 13.2 g/dl (13.5-17.5); MEAN CORPUSCULAR HGB CONC 31.9 g/dl (32.0-36.5); MEAN CORPUSCULAR VOLUME 100.5 fl (80.0-96.0); PLATELET COUNT, AUTOMATED 156 10^3/uL (150-450); RED BLOOD COUNT 4.12 10^6/uL (4.30-6.10); RED CELL DISTRIBUTION WIDTH 15.9 % (11.5-14.5); WHITE BLOOD COUNT 15.6 10^3/uL (4.0-10.0)
[2017-08-13 13:49] LABS: ADD MANUAL DIFFER YES; DIFF SLIDE NUMBER 226; POS COUNT POS FLAG; POSITIVE MORPH POS FLAG
[2017-08-13 14:12] LABS: BANDS 3 % (< 11); EOSINOPHILS 2 % (0-5); LYMPHOCYTES 4 % (16-52); METAMYELOCYTES 2 % (0-0); MONOCYTES 2 % (0-8); MYELOCYTES 6 % (0-0); NEUTROPHILS 81 % (35-75)
[2017-08-13 14:13] LABS: ANISOCYTOSIS 1+; PLATELET ESTIMATE NORMAL (NORMAL)
== END ==
DX: I50.9 Heart failure, unspecified (principal)

== ENCOUNTER → 2017-08-18 | Outpatient (REF) ==
[2017-08-18 10:10] LABS: BASO % 0.2 % (0.0-1.0); EOS % 0.4 % (0.0-3.0); HEMOGLOBIN 13.4 g/dl (13.5-17.5); IMMATURE GRANULOCYTE % 1.7 % (0-3.0); LYMPH # 1.1 10^3/uL (1.5-4.5); LYMPH % 10.9 % (24.0-44.0); MEAN CORPUSCULAR HEMOGLOBIN 31.4 pg (27.0-33.0); MEAN CORPUSCULAR HGB CONC 31.9 g/dl (32.0-36.5); MEAN CORPUSCULAR VOLUME 98.4 fl (80.0-96.0); MONO # 0.7 10^3/uL (0.0-0.8); MONO % 7.5 % (0.0-5.0); NEUTROPHILS # 7.7 10^3/uL (1.8-7.7); NEUTROPHILS % 79.3 % (36.0-66.0); PLATELET COUNT, AUTOMATED 150 10^3/uL (150-450); RED BLOOD COUNT 4.27 10^6/uL (4.30-6.10); RED CELL DISTRIBUTION WIDTH 15.7 % (11.5-14.5); WHITE BLOOD COUNT 9.8 10^3/uL (4.0-10.0)
[2017-08-18 10:42] LABS: ALBUMIN 3.3 GM/DL (3.2-5.2); ALBUMIN/GLOBULIN RATIO 0.92 (1.00-1.93); ALKALINE PHOSPHATASE 90 U/L (45-117); ALT/SGPT 80 U/L (12-78); ANION GAP 11 MEQ/L (8-16); AST/SGOT 35 U/L (7-37); BILIRUBIN,TOTAL 0.4 MG/DL (0.2-1.0); BLOOD UREA NITROGEN 39 MG/DL (7-18); CALCIUM LEVEL 9.1 MG/DL (8.8-10.2); CARBON DIOXIDE LEVEL 31 MEQ/L (21-32); CHLORIDE LEVEL 97 MEQ/L (98-107); CREATININE FOR GFR 1.79 MG/DL (0.70-1.30); GLOMERULAR FILTRATION RATE 40.9 (>49); GLUCOSE, FASTING 221 MG/DL (70-100); POTASSIUM SERUM 3.3 MEQ/L (3.5-5.1); SODIUM LEVEL 139 MEQ/L (136-145); TOTAL PROTEIN 6.9 GM/DL (6.4-8.2)
== END ==
DX: D64.9 Anemia, unspecified (principal)

== ENCOUNTER → 2017-08-25 | Outpatient (REF) ==
[2017-08-25 12:14] LABS: BASO % 0.4 % (0.0-1.0); EOS # 0.1 10^3/uL (0.0-0.50); EOS % 0.7 % (0.0-3.0); HEMATOCRIT 40.1 % (42.0-52.0); HEMOGLOBIN 12.8 g/dl (13.5-17.5); IMMATURE GRANULOCYTE % 1.3 % (0-3.0); LYMPH # 0.8 10^3/uL (1.5-4.5); LYMPH % 11.6 % (24.0-44.0); MEAN CORPUSCULAR HGB CONC 31.9 g/dl (32.0-36.5); MEAN CORPUSCULAR VOLUME 100.3 fl (80.0-96.0); MONO # 0.3 10^3/uL (0.0-0.8); MONO % 4.4 % (0.0-5.0); NEUTROPHILS # 5.8 10^3/uL (1.8-7.7); NEUTROPHILS % 81.6 % (36.0-66.0); RED CELL DISTRIBUTION WIDTH 16.2 % (11.5-14.5); WHITE BLOOD COUNT 7.1 10^3/uL (4.0-10.0)
[2017-08-25 12:29] LABS: IMMATURE PLATELET FRACTION % 6.3 % (0.0-10.9); PLATELET COUNT, AUTOMATED 99 10^3/uL (150-450)
[2017-08-25 12:48] LABS: ALBUMIN 3.3 GM/DL (3.2-5.2); ALBUMIN/GLOBULIN RATIO 0.92 (1.00-1.93); ALKALINE PHOSPHATASE 82 U/L (45-117); ALT/SGPT 75 U/L (12-78); ANION GAP 13 MEQ/L (8-16); AST/SGOT 40 U/L (7-37); BILIRUBIN,TOTAL 0.5 MG/DL (0.2-1.0); BLOOD UREA NITROGEN 33 MG/DL (7-18); CALCIUM LEVEL 9.3 MG/DL (8.8-10.2); CARBON DIOXIDE LEVEL 30 MEQ/L (21-32); CHLORIDE LEVEL 96 MEQ/L (98-107); CREATININE FOR GFR 1.73 MG/DL (0.70-1.30); GLOMERULAR FILTRATION RATE 42.5 (>49); GLUCOSE, FASTING 207 MG/DL (70-100); POTASSIUM SERUM 3.6 MEQ/L (3.5-5.1); SODIUM LEVEL 139 MEQ/L (136-145); THYROID STIMULATING HORMONE 0.865 uIU/ML (0.358-3.740); TOTAL PROTEIN 6.9 GM/DL (6.4-8.2)
== END ==
DX: D64.9 Anemia, unspecified (principal)

== ENCOUNTER → 2017-08-26 | Outpatient (REF) ==
[2017-08-26 10:38] LABS: HEMATOCRIT 39.3 % (42.0-52.0); HEMOGLOBIN 12.5 g/dl (13.5-17.5); MEAN CORPUSCULAR HEMOGLOBIN 31.8 pg (27.0-33.0); MEAN CORPUSCULAR HGB CONC 31.8 g/dl (32.0-36.5); PLATELET COUNT, AUTOMATED 104 10^3/uL (150-450); RED BLOOD COUNT 3.93 10^6/uL (4.30-6.10); RED CELL DISTRIBUTION WIDTH 16.1 % (11.5-14.5); WHITE BLOOD COUNT 6.2 10^3/uL (4.0-10.0)
[2017-08-26 10:55] LABS: ANION GAP 9 MEQ/L (8-16); BLOOD UREA NITROGEN 29 MG/DL (7-18); CALCIUM LEVEL 8.6 MG/DL (8.8-10.2); CARBON DIOXIDE LEVEL 29 MEQ/L (21-32); CHLORIDE LEVEL 99 MEQ/L (98-107); CREATININE FOR GFR 1.68 MG/DL (0.70-1.30); GLUCOSE, FASTING 283 MG/DL (70-100); SODIUM LEVEL 137 MEQ/L (136-145)
== END ==
DX: R42 Dizziness and giddiness (principal)

== ENCOUNTER → 2017-08-28 | Outpatient (REF) ==
[2017-08-28 10:23] LABS: FERRITIN 158 NG/ML (26-388); IRON (FE) 56 UG/DL (65-175); PERCENT SATURATION 17.2 % (19.7-50.0); TOTAL IRON BINDING CAPACITY 325 UG/DL (250-450)
== END ==
DX: D64.9 Anemia, unspecified (principal)

== ENCOUNTER → 2017-09-01 | Outpatient (REF) ==
[2017-09-01 11:14] LABS: HEMOGLOBIN 12.5 g/dl (13.5-17.5); MEAN CORPUSCULAR HEMOGLOBIN 32.5 pg (27.0-33.0); MEAN CORPUSCULAR HGB CONC 32.1 g/dl (32.0-36.5); MEAN CORPUSCULAR VOLUME 101.3 fl (80.0-96.0); PLATELET COUNT, AUTOMATED 161 10^3/uL (150-450); RED BLOOD COUNT 3.85 10^6/uL (4.30-6.10); RED CELL DISTRIBUTION WIDTH 16.9 % (11.5-14.5); WHITE BLOOD COUNT 5.6 10^3/uL (4.0-10.0)
[2017-09-01 11:24] LABS: ADD MANUAL DIFFER YES; DIFF SLIDE NUMBER 66; POS COUNT POS FLAG; POSITIVE MORPH POS FLAG
[2017-09-01 11:46] LABS: ANISOCYTOSIS 1+; BANDS 3 % (< 11); LYMPHOCYTES 12 % (16-52); METAMYELOCYTES 1 % (0-0); MONOCYTES 4 % (0-8); NEUTROPHILS 80 % (35-75); PLATELET ESTIMATE NORMAL (NORMAL)
[2017-09-01 11:52] LABS: ALBUMIN 3.3 GM/DL (3.2-5.2); ALKALINE PHOSPHATASE 127 U/L (45-117); ALT/SGPT 84 U/L (12-78); ANION GAP 13 MEQ/L (8-16); AST/SGOT 65 U/L (7-37); BILIRUBIN,TOTAL 0.3 MG/DL (0.2-1.0); BLOOD UREA NITROGEN 30 MG/DL (7-18); CALCIUM LEVEL 8.5 MG/DL (8.8-10.2); CARBON DIOXIDE LEVEL 26 MEQ/L (21-32); CHLORIDE LEVEL 107 MEQ/L (98-107); CREATININE FOR GFR 1.72 MG/DL (0.70-1.30); GLOMERULAR FILTRATION RATE 42.8 (>49); GLUCOSE, FASTING 119 MG/DL (70-100); POTASSIUM SERUM 3.9 MEQ/L (3.5-5.1); SODIUM LEVEL 146 MEQ/L (136-145); TOTAL PROTEIN 6.6 GM/DL (6.4-8.2)
== END ==
DX: D64.9 Anemia, unspecified (principal)

== ENCOUNTER 2017-09-04 02:30 | Inpatient (IN) | payer MEDICARE, MEDICAID ==
[2017-09-04] MEDS: FUROSEMIDE 100 MG/10 ML VIAL (J1940) IV (03:40)
[2017-09-04] MEDS: NITROGLYCERIN 2% OINT 1 GM *U/D* PKT TOP (03:41)
[2017-09-04 03:51] LABS: ANION GAP 9 MEQ/L (8-16); BLOOD UREA NITROGEN 28 MG/DL (7-18); CALCIUM LEVEL 8.9 MG/DL (8.8-10.2); CARBON DIOXIDE LEVEL 30 MEQ/L (21-32); CHLORIDE LEVEL 100 MEQ/L (98-107); CK-MB VALUE MASS 3.2 NG/ML (<3.6); CPK CREATINE PHOSPHOKINASE 56 U/L (39-308); CREATININE FOR GFR 1.87 MG/DL (0.70-1.30); GLOMERULAR FILTRATION RATE 38.9 (>49); GLUCOSE, FASTING 314 MG/DL (70-100); MB/CK RELATIVE INDEX 5.71 (< OR =4); NT-PRO BNP 539 PG/ML (<125); POTASSIUM SERUM 4.2 MEQ/L (3.5-5.1); SODIUM LEVEL 139 MEQ/L (136-145); TROPONIN I 0.02 NG/ML (< 0.10)
[2017-09-04 03:54] LABS: BASO % 0.3 % (0.0-1.0); EOS % 0.3 % (0.0-3.0); HEMATOCRIT 42.3 % (42.0-52.0); HEMOGLOBIN 13.2 g/dl (13.5-17.5); IMMATURE GRANULOCYTE % 2.5 % (0-3.0); LYMPH # 0.7 10^3/uL (1.5-4.5); LYMPH % 9.9 % (24.0-44.0); MEAN CORPUSCULAR HGB CONC 31.2 g/dl (32.0-36.5); MEAN CORPUSCULAR VOLUME 102.7 fl (80.0-96.0); MONO # 0.3 10^3/uL (0.0-0.8); MONO % 3.6 % (0.0-5.0); NEUTROPHILS # 6.2 10^3/uL (1.8-7.7); NEUTROPHILS % 83.4 % (36.0-66.0); PLATELET COUNT, AUTOMATED 137 10^3/uL (150-450); RED BLOOD COUNT 4.12 10^6/uL (4.30-6.10); RED CELL DISTRIBUTION WIDTH 17.5 % (11.5-14.5); WHITE BLOOD COUNT 7.5 10^3/uL (4.0-10.0)
[2017-09-04 04:05] LABS: POS COUNT POS FLAG
[2017-09-04 04:18] LABS: ABG HCO3 26.3 MEQ/L (22.0-26.0); ABG O2 SATURATION 88.1 % (95.0-99.0); ABG PARTIAL PRESSURE CO2 49.3 mmHg (35.0-45.0); ABG PARTIAL PRESSURE O2 60.2 mmHg (75.0-100.0); ABG STANDARD HCO3 24.3 MEQ/L (22.0-26.0); ABG TOTAL CO2 27.8 MEQ/L (23.0-31.0); ABG pH (ARTERIAL) 7.345 UNITS (7.350-7.450)
[2017-09-04] MEDS: ALBUTEROL SULFATE 2.5 MG/0.5 ML INH NEB SOLN NEB (04:35)
[2017-09-04 05:34] LABS: DIGOXIN LEVEL 0.1 NG/ML (0.5-2.0)
[2017-09-04] MEDS ORDERED: ALBUTEROL 90 MCG/ACT 8GM HFA INHALER INH (07:00)
[2017-09-04] MEDS ORDERED: BISACODYL 10 MG SUPP PR (07:00)
[2017-09-04] MEDS ORDERED: MOM 30ML SUSPENSION UDC PO (07:00)
[2017-09-04] MEDS: HumaLOG INSULIN (NovoLOG) PER UNIT SC ×4 (07:30→21:00)
[2017-09-04] MEDS ORDERED: GLUCAGON FOR INJ 1 MG VIAL (J1610) SC (07:45)
[2017-09-04] MEDS ORDERED: GLUCOSE 4 GM CHEW TABLET PO (07:45)
[2017-09-04] MEDS ORDERED: DEXTROSE 50% 50 ML SYRINGE IV (07:45)
[2017-09-04] MEDS: ALBUTEROL SULFATE 2.5 MG/0.5 ML INH NEB SOLN INH ×4 (08:23→19:50)
[2017-09-04] MEDS ORDERED: IMMUNE GLOBULIN 10% 10GM 100ML 0 GM in APPROPRIATE DILUENT 1 EA IV (09:00)
[2017-09-04] MEDS ORDERED: ACETAMINOPHEN 500 MG TAB PO (09:00)
[2017-09-04] MEDS ORDERED: diphenhydrAMINE 50 MG CAP PO (09:00)
[2017-09-04 09:42] LABS: BEDSIDE GLUCOSE 211 MG/DL (80-115)
[2017-09-04] MEDS: ASPIRIN 81 MG ENTERIC TAB PO (11:03)
[2017-09-04] MEDS: rOPINIRole 1MG TAB PO ×2 (11:04→21:25)
[2017-09-04] MEDS: TORSEMIDE 20 MG TAB PO (11:04)
[2017-09-04] MEDS: LACTOBACILLUS ACIDOPHILUS CAP (BACID) PO ×3 (11:04→17:37)
[2017-09-04] MEDS: CYANOCOBALAMIN 500 MCG TAB PO (11:05)
[2017-09-04] MEDS: APIXABAN 5 MG TAB (ELIQUIS) PO ×2 (11:05→21:24)
[2017-09-04] MEDS: BACTRIM 160MG/800MG DS TAB PO (11:05)
[2017-09-04] MEDS: FERROUS SULFATE 325MG TAB PO (11:06)
[2017-09-04] MEDS: SENOKOT S TAB PO ×2 (11:06→21:00)
[2017-09-04] MEDS: POTASSIUM CHLORIDE 10 MEQ SR TABLET PO (11:06)
[2017-09-04] MEDS: GABAPENTIN 300 MG CAP PO ×3 (11:06→21:25)
[2017-09-04] MEDS: ALLOPURINOL 300 MG TAB PO (11:07)
[2017-09-04] MEDS: ATENOLOL 12.5MG PER 1/2 TABLET PO (11:22)
[2017-09-04 11:25] LABS: BEDSIDE GLUCOSE 219 MG/DL (80-115)
[2017-09-04] MEDS: predniSONE 5 MG TAB PO (17:37)
[2017-09-04] MEDS: predniSONE 1 MG TAB PO (17:38)
[2017-09-04 20:09] LABS: BEDSIDE GLUCOSE 229 MG/DL (80-115)
[2017-09-04 21:09] LABS: BEDSIDE GLUCOSE 195 MG/DL (80-115)
[2017-09-04] MEDS: SERTRALINE HCL 50 MG TAB PO (21:24)
[2017-09-04] MEDS: PRAVASTATIN 20 MG TAB PO (21:24)
[2017-09-04] MEDS: PANTOPRAZOLE 40MG TAB (PROTONIX) PO (21:25)
[2017-09-05 06:15] LABS: ANION GAP 9 MEQ/L (8-16); BLOOD UREA NITROGEN 31 MG/DL (7-18); CALCIUM LEVEL 8.8 MG/DL (8.8-10.2); CARBON DIOXIDE LEVEL 28 MEQ/L (21-32); CHLORIDE LEVEL 102 MEQ/L (98-107); CREATININE FOR GFR 1.81 MG/DL (0.70-1.30); GLOMERULAR FILTRATION RATE 40.4 (>49); GLUCOSE, FASTING 243 MG/DL (70-100); POTASSIUM SERUM 4.2 MEQ/L (3.5-5.1); SODIUM LEVEL 139 MEQ/L (136-145)
[2017-09-05] MEDS: ALBUTEROL SULFATE 2.5 MG/0.5 ML INH NEB SOLN INH ×4 (07:07→19:26)
[2017-09-05] MEDS: HumaLOG INSULIN (NovoLOG) PER UNIT SC ×4 (08:13→21:38)
[2017-09-05] MEDS: GABAPENTIN 300 MG CAP PO ×3 (09:40→20:01)
[2017-09-05] MEDS: LACTOBACILLUS ACIDOPHILUS CAP (BACID) PO ×3 (09:40→18:13)
[2017-09-05] MEDS: ASPIRIN 81 MG ENTERIC TAB PO (09:40)
[2017-09-05] MEDS: CYANOCOBALAMIN 500 MCG TAB PO (09:40)
[2017-09-05] MEDS: FERROUS SULFATE 325MG TAB PO (09:40)
[2017-09-05] MEDS: POTASSIUM CHLORIDE 10 MEQ SR TABLET PO (09:41)
[2017-09-05] MEDS: rOPINIRole 1MG TAB PO ×2 (09:41→20:01)
[2017-09-05] MEDS: TORSEMIDE 20 MG TAB PO (09:42)
[2017-09-05] MEDS: ATENOLOL 12.5MG PER 1/2 TABLET PO (09:43)
[2017-09-05] MEDS: ALLOPURINOL 300 MG TAB PO (09:43)
[2017-09-05] MEDS: APIXABAN 5 MG TAB (ELIQUIS) PO ×2 (09:43→20:01)
[2017-09-05] MEDS: SENOKOT S TAB PO ×2 (09:43→20:02)
[2017-09-05 12:25] LABS: BASO % 0.5 % (0.0-1.0); EOS % 0.2 % (0.0-3.0); HEMATOCRIT 38.1 % (42.0-52.0); HEMOGLOBIN 12.1 g/dl (13.5-17.5); IMMATURE GRANULOCYTE % 3.8 % (0-3.0); LYMPH # 1.5 10^3/uL (1.5-4.5); LYMPH % 17.9 % (24.0-44.0); MEAN CORPUSCULAR HEMOGLOBIN 32.1 pg (27.0-33.0); MEAN CORPUSCULAR HGB CONC 31.8 g/dl (32.0-36.5); MEAN CORPUSCULAR VOLUME 101.1 fl (80.0-96.0); MONO # 0.4 10^3/uL (0.0-0.8); MONO % 4.8 % (0.0-5.0); NEUTROPHILS % 72.8 % (36.0-66.0); PLATELET COUNT, AUTOMATED 133 10^3/uL (150-450); RED BLOOD COUNT 3.77 10^6/uL (4.30-6.10); RED CELL DISTRIBUTION WIDTH 17.2 % (11.5-14.5); WHITE BLOOD COUNT 8.2 10^3/uL (4.0-10.0)
[2017-09-05] MEDS: VANCOMYCIN HCL 1,000 MG, VIAL MATE ADAPTER 1 EACH in D5W 250 ML IV ×2 (13:46→20:01)
[2017-09-05] MEDS: predniSONE 1 MG TAB PO (16:46)
[2017-09-05] MEDS: predniSONE 5 MG TAB PO (16:46)
[2017-09-05 19:59] LABS: BEDSIDE GLUCOSE 173 MG/DL (80-115)
[2017-09-05 19:59] LABS: BEDSIDE GLUCOSE 197 MG/DL (80-115)
[2017-09-05 19:59] LABS: BEDSIDE GLUCOSE 152 MG/DL (80-115)
[2017-09-05 19:59] LABS: BEDSIDE GLUCOSE 212 MG/DL (80-115)
[2017-09-05] MEDS: SERTRALINE HCL 50 MG TAB PO (20:02)
[2017-09-05] MEDS: PANTOPRAZOLE 40MG TAB (PROTONIX) PO (20:02)
[2017-09-05] MEDS: PRAVASTATIN 20 MG TAB PO (20:02)
[2017-09-05 20:31] LABS: BEDSIDE GLUCOSE 278 MG/DL (80-115)
[2017-09-06 06:11] LABS: BASO % 0.3 % (0.0-1.0); EOS % 0.1 % (0.0-3.0); HEMATOCRIT 34.1 % (42.0-52.0); IMMATURE GRANULOCYTE % 4.5 % (0-3.0); LYMPH # 0.7 10^3/uL (1.5-4.5); LYMPH % 9.9 % (24.0-44.0); MEAN CORPUSCULAR HEMOGLOBIN 31.8 pg (27.0-33.0); MEAN CORPUSCULAR HGB CONC 32.3 g/dl (32.0-36.5); MEAN CORPUSCULAR VOLUME 98.6 fl (80.0-96.0); MONO # 0.3 10^3/uL (0.0-0.8); MONO % 4.4 % (0.0-5.0); NEUTROPHILS # 5.9 10^3/uL (1.8-7.7); NEUTROPHILS % 80.8 % (36.0-66.0); PLATELET COUNT, AUTOMATED 111 10^3/uL (150-450); RED BLOOD COUNT 3.46 10^6/uL (4.30-6.10); RED CELL DISTRIBUTION WIDTH 17.1 % (11.5-14.5); WHITE BLOOD COUNT 7.3 10^3/uL (4.0-10.0)
[2017-09-06 06:39] LABS: ANION GAP 9 MEQ/L (8-16); BLOOD UREA NITROGEN 34 MG/DL (7-18); CARBON DIOXIDE LEVEL 30 MEQ/L (21-32); CHLORIDE LEVEL 99 MEQ/L (98-107); GLOMERULAR FILTRATION RATE 46.6 (>49); GLUCOSE, FASTING 213 MG/DL (70-100); POTASSIUM SERUM 3.9 MEQ/L (3.5-5.1); SODIUM LEVEL 138 MEQ/L (136-145)
[2017-09-06] MEDS: ALBUTEROL SULFATE 2.5 MG/0.5 ML INH NEB SOLN INH ×4 (07:12→19:20)
[2017-09-06] MEDS: APIXABAN 5 MG TAB (ELIQUIS) PO ×2 (09:29→21:10)
[2017-09-06] MEDS: FERROUS SULFATE 325MG TAB PO (09:29)
[2017-09-06] MEDS: VANCOMYCIN HCL 1,000 MG, VIAL MATE ADAPTER 1 EACH in D5W 250 ML IV ×2 (09:29→21:11)
[2017-09-06] MEDS: HumaLOG INSULIN (NovoLOG) PER UNIT SC ×4 (09:29→22:08)
[2017-09-06] MEDS: rOPINIRole 1MG TAB PO ×2 (09:29→21:10)
[2017-09-06] MEDS: ALLOPURINOL 300 MG TAB PO (09:30)
[2017-09-06] MEDS: TORSEMIDE 20 MG TAB PO (09:30)
[2017-09-06] MEDS: CYANOCOBALAMIN 500 MCG TAB PO (09:30)
[2017-09-06] MEDS: ATENOLOL 12.5MG PER 1/2 TABLET PO (09:30)
[2017-09-06] MEDS: ASPIRIN 81 MG ENTERIC TAB PO (09:30)
[2017-09-06] MEDS: POTASSIUM CHLORIDE 10 MEQ SR TABLET PO (09:31)
[2017-09-06] MEDS: LACTOBACILLUS ACIDOPHILUS CAP (BACID) PO ×3 (09:31→17:22)
[2017-09-06] MEDS: SENOKOT S TAB PO ×2 (09:31→21:00)
[2017-09-06] MEDS: GABAPENTIN 300 MG CAP PO ×3 (09:31→21:10)
[2017-09-06 11:36] LABS: BEDSIDE GLUCOSE 224 MG/DL (80-115)
[2017-09-06 16:37] LABS: BEDSIDE GLUCOSE 170 MG/DL (80-115)
[2017-09-06] MEDS: predniSONE 5 MG TAB PO (17:22)
[2017-09-06] MEDS: predniSONE 1 MG TAB PO (17:23)
[2017-09-06] MEDS: PANTOPRAZOLE 40MG TAB (PROTONIX) PO (21:10)
[2017-09-06] MEDS: PRAVASTATIN 20 MG TAB PO (21:10)
[2017-09-06] MEDS: ACETAMINOPHEN TAB 650MG DOSE (2X325MG) PO (21:10)
[2017-09-06] MEDS: SERTRALINE HCL 50 MG TAB PO (21:10)
[2017-09-06 22:01] LABS: BEDSIDE GLUCOSE 399 MG/DL (80-115)
[2017-09-07 07:15] LABS: BASO % 0.1 % (0.0-1.0); EOS % 0.1 % (0.0-3.0); HEMATOCRIT 35.7 % (42.0-52.0); HEMOGLOBIN 11.4 g/dl (13.5-17.5); IMMATURE GRANULOCYTE % 3.5 % (0-3.0); LYMPH # 0.7 10^3/uL (1.5-4.5); LYMPH % 9.2 % (24.0-44.0); MEAN CORPUSCULAR HEMOGLOBIN 31.6 pg (27.0-33.0); MEAN CORPUSCULAR HGB CONC 31.9 g/dl (32.0-36.5); MEAN CORPUSCULAR VOLUME 98.9 fl (80.0-96.0); MONO # 0.4 10^3/uL (0.0-0.8); MONO % 4.7 % (0.0-5.0); NEUTROPHILS # 6.4 10^3/uL (1.8-7.7); NEUTROPHILS % 82.4 % (36.0-66.0); PLATELET COUNT, AUTOMATED 129 10^3/uL (150-450); RED BLOOD COUNT 3.61 10^6/uL (4.30-6.10); RED CELL DISTRIBUTION WIDTH 17.3 % (11.5-14.5); WHITE BLOOD COUNT 7.7 10^3/uL (4.0-10.0)
[2017-09-07] MEDS: ALBUTEROL SULFATE 2.5 MG/0.5 ML INH NEB SOLN INH ×2 (07:24→11:27)
[2017-09-07 07:37] LABS: ANION GAP 8 MEQ/L (8-16); BLOOD UREA NITROGEN 34 MG/DL (7-18); CALCIUM LEVEL 8.8 MG/DL (8.8-10.2); CARBON DIOXIDE LEVEL 28 MEQ/L (21-32); CHLORIDE LEVEL 103 MEQ/L (98-107); CREATININE FOR GFR 1.72 MG/DL (0.70-1.30); GLOMERULAR FILTRATION RATE 42.8 (>49); GLUCOSE, FASTING 268 MG/DL (70-100); POTASSIUM SERUM 4.2 MEQ/L (3.5-5.1); SODIUM LEVEL 139 MEQ/L (136-145)
[2017-09-07 07:39] LABS: VANCOMYCIN LEVEL TROUGH 15.4 UG/ML (10.0-20.0)
[2017-09-07] MEDS: VANCOMYCIN HCL 1,000 MG, VIAL MATE ADAPTER 1 EACH in D5W 250 ML IV (10:10)
[2017-09-07] MEDS: ATENOLOL 12.5MG PER 1/2 TABLET PO (10:12)
[2017-09-07] MEDS: FERROUS SULFATE 325MG TAB PO (10:13)
[2017-09-07] MEDS: GABAPENTIN 300 MG CAP PO (10:13)
[2017-09-07] MEDS: CYANOCOBALAMIN 500 MCG TAB PO (10:13)
[2017-09-07] MEDS: LACTOBACILLUS ACIDOPHILUS CAP (BACID) PO (10:13)
[2017-09-07] MEDS: ALLOPURINOL 300 MG TAB PO (10:13)
[2017-09-07] MEDS: SENOKOT S TAB PO (10:13)
[2017-09-07] MEDS: POTASSIUM CHLORIDE 10 MEQ SR TABLET PO (10:13)
[2017-09-07] MEDS: ASPIRIN 81 MG ENTERIC TAB PO (10:14)
[2017-09-07] MEDS: TORSEMIDE 20 MG TAB PO (10:14)
[2017-09-07] MEDS: BACTRIM 160MG/800MG DS TAB PO (10:14)
[2017-09-07] MEDS: APIXABAN 5 MG TAB (ELIQUIS) PO (10:14)
[2017-09-07] MEDS: rOPINIRole 1MG TAB PO (10:14)
[2017-09-07] MEDS: HumaLOG INSULIN (NovoLOG) PER UNIT SC (10:15)
[2017-09-08 08:54] LABS: IgG SERUM (part of Subclasses) 688 mg/dL (700-1600); IgG Subclass 1 433 mg/dL (248-810); IgG Subclass 2 166 mg/dL (130-555); IgG Subclass 3 68 mg/dL (15-102); IgG Subclass 4 29 mg/dL (2-96)
== END 2017-09-07 12:00 | DRG 190 ==
LOC: M ED 02:30 → M ED INP 06:28 → M MS5PR 08:07
DX: J44.0 Chronic obstructive pulmonary disease with (acute) lower respiratory infection (principal); J18.9 Pneumonia, unspecified organism; I50.32 Chronic diastolic (congestive) heart failure; J96.11 Chronic respiratory failure with hypoxia; D80.1 Nonfamilial hypogammaglobulinemia; E27.40 Unspecified adrenocortical insufficiency; I48.2 Chronic atrial fibrillation; N18.3 Chronic kidney disease, stage 3 (moderate); J44.1 Chronic obstructive pulmonary disease with (acute) exacerbation; E66.01 Morbid (severe) obesity due to excess calories; E11.22 Type 2 diabetes mellitus with diabetic chronic kidney disease; Z66 Do not resuscitate; M10.9 Gout, unspecified; G47.33 Obstructive sleep apnea (adult) (pediatric); G25.81 Restless legs syndrome; F32.9 Major depressive disorder, single episode, unspecified; E53.8 Deficiency of other specified B group vitamins; Z85.118 Personal history of other malignant neoplasm of bronchus and lung; Z90.2 Acquired absence of lung [part of]; Z88.5 Allergy status to narcotic agent; Z99.81 Dependence on supplemental oxygen; Z79.52 Long term (current) use of systemic steroids; Z79.899 Other long term (current) drug therapy; Z79.01 Long term (current) use of anticoagulants; Z68.37 Body mass index [BMI] 37.0-37.9, adult; Z79.4 Long term (current) use of insulin; Z79.82 Long term (current) use of aspirin

== ENCOUNTER 2017-09-13 11:43 | Emergency (ER) | payer MEDICARE, MEDICAID ==
[2017-09-13] MEDS: ASPIRIN 81 MG CHEW TABLET PO (12:51)
[2017-09-13 12:52] LABS: BASO % 0.3 % (0.0-1.0); HEMATOCRIT 35.1 % (42.0-52.0); IMMATURE GRANULOCYTE % 4.3 % (0-3.0); LYMPH # 0.6 10^3/uL (1.5-4.5); LYMPH % 7.4 % (24.0-44.0); MEAN CORPUSCULAR HEMOGLOBIN 31.7 pg (27.0-33.0); MEAN CORPUSCULAR HGB CONC 31.3 g/dl (32.0-36.5); MEAN CORPUSCULAR VOLUME 101.2 fl (80.0-96.0); MONO # 0.3 10^3/uL (0.0-0.8); MONO % 3.6 % (0.0-5.0); NEUTROPHILS # 6.6 10^3/uL (1.8-7.7); NEUTROPHILS % 84.4 % (36.0-66.0); PLATELET COUNT, AUTOMATED 173 10^3/uL (150-450); RED BLOOD COUNT 3.47 10^6/uL (4.30-6.10); RED CELL DISTRIBUTION WIDTH 17.4 % (11.5-14.5); WHITE BLOOD COUNT 7.9 10^3/uL (4.0-10.0)
[2017-09-13] MEDS: NITROGLYCERIN 0.4 MG SUBL TABLET SL ×3 (12:54→13:17)
[2017-09-13 13:08] LABS: ANION GAP 7 MEQ/L (8-16); BLOOD UREA NITROGEN 37 MG/DL (7-18); CALCIUM LEVEL 8.9 MG/DL (8.8-10.2); CARBON DIOXIDE LEVEL 32 MEQ/L (21-32); CHLORIDE LEVEL 103 MEQ/L (98-107); CK-MB VALUE MASS 2.5 NG/ML (<3.6); CPK CREATINE PHOSPHOKINASE 72 U/L (39-308); CREATININE FOR GFR 2.06 MG/DL (0.70-1.30); GLOMERULAR FILTRATION RATE 34.8 (>49); GLUCOSE, FASTING 238 MG/DL (70-100); MB/CK RELATIVE INDEX 3.47 (< OR =4); POTASSIUM SERUM 4.5 MEQ/L (3.5-5.1); SODIUM LEVEL 142 MEQ/L (136-145); TROPONIN I 0.03 NG/ML (< 0.10)
[2017-09-13 13:10] LABS: INR 1.36
[2017-09-13 13:17] LABS: ABG BASE EXCESS 2.9 (-2.0-2.0); ABG HCO3 27.7 MEQ/L (22.0-26.0); ABG O2 SATURATION 97.3 % (95.0-99.0); ABG PARTIAL PRESSURE CO2 43.6 mmHg (35.0-45.0); ABG PARTIAL PRESSURE O2 94.1 mmHg (75.0-100.0); ABG pH (ARTERIAL) 7.421 UNITS (7.350-7.450)
[2017-09-13 15:28] LABS: CK-MB VALUE MASS 2.3 NG/ML (<3.6); CPK CREATINE PHOSPHOKINASE 53 U/L (39-308); MB/CK RELATIVE INDEX 4.33 (< OR =4); TROPONIN I 0.03 NG/ML (< 0.10)
== END 2017-09-13 16:30 | disposition home or self-care (01) ==
LOC: M ED 11:43
DX: R07.89 Other chest pain (principal); R06.02 Shortness of breath; I11.9 Hypertensive heart disease without heart failure; E78.5 Hyperlipidemia, unspecified; J44.9 Chronic obstructive pulmonary disease, unspecified; E11.9 Type 2 diabetes mellitus without complications; Z87.891 Personal history of nicotine dependence; Z79.899 Other long term (current) drug therapy; Z79.01 Long term (current) use of anticoagulants; Z79.82 Long term (current) use of aspirin; Z79.52 Long term (current) use of systemic steroids; Z79.4 Long term (current) use of insulin; Z79.2 Long term (current) use of antibiotics
CPT/HCPCS: 71046

== ENCOUNTER → 2017-09-15 | Outpatient (REF) | payer MEDICAID, MEDICARE ==
[2017-09-15 11:30] LABS: HEMOGLOBIN 11.6 g/dl (13.5-17.5); MEAN CORPUSCULAR HEMOGLOBIN 31.9 pg (27.0-33.0); MEAN CORPUSCULAR HGB CONC 31.4 g/dl (32.0-36.5); MEAN CORPUSCULAR VOLUME 101.6 fl (80.0-96.0); PLATELET COUNT, AUTOMATED 159 10^3/uL (150-450); RED BLOOD COUNT 3.64 10^6/uL (4.30-6.10); RED CELL DISTRIBUTION WIDTH 17.3 % (11.5-14.5); WHITE BLOOD COUNT 7.4 10^3/uL (4.0-10.0)
[2017-09-15 11:50] LABS: ANION GAP 12 MEQ/L (8-16); BLOOD UREA NITROGEN 34 MG/DL (7-18); CALCIUM LEVEL 8.8 MG/DL (8.8-10.2); CARBON DIOXIDE LEVEL 28 MEQ/L (21-32); CHLORIDE LEVEL 104 MEQ/L (98-107); CREATININE FOR GFR 1.97 MG/DL (0.70-1.30); GLOMERULAR FILTRATION RATE 36.6 (>49); GLUCOSE, FASTING 152 MG/DL (70-100); POTASSIUM SERUM 3.6 MEQ/L (3.5-5.1); SODIUM LEVEL 144 MEQ/L (136-145)
== END ==
DX: J18.9 Pneumonia, unspecified organism (principal)

== ENCOUNTER 2017-09-18 11:52 | Outpatient (CLI) | payer MEDICARE, MEDICAID ==
[2017-09-18] MEDS ORDERED: ACETAMINOPHEN TAB 650MG DOSE (2X325MG) As Ordered ×2 (12:51→12:57)
[2017-09-18] MEDS ORDERED: diphenhydrAMINE 50 MG CAP As Ordered (12:52)
[2017-09-18] MEDS ORDERED: IMMUNE GLOBULIN 10% 10GM 100ML 10 GM in APPROPRIATE DILUENT 1 EA IV (13:00)
[2017-09-18] MEDS ORDERED: IMMUNE GLOBULIN 10% 20GM 200ML 20 GM in APPROPRIATE DILUENT 1 EA IV (13:00)
[2017-09-18] MEDS ORDERED: ACETAMINOPHEN TAB 650MG DOSE (2X325MG) PO (13:00)
[2017-09-18] MEDS ORDERED: diphenhydrAMINE 50 MG CAP PO (13:00)
== END 2017-09-18 15:20 | disposition home or self-care (01) ==
LOC: M INFU 11:52
DX: D80.1 Nonfamilial hypogammaglobulinemia (principal); Z88.8 Allergy status to other drugs, medicaments and biological substances; Z79.82 Long term (current) use of aspirin; Z79.899 Other long term (current) drug therapy; Z79.4 Long term (current) use of insulin; Z79.01 Long term (current) use of anticoagulants
CPT/HCPCS: 96365

== ENCOUNTER → 2017-09-22 | Outpatient (REF) ==
[2017-09-22 09:55] LABS: HEMATOCRIT 38.4 % (42.0-52.0); MEAN CORPUSCULAR HEMOGLOBIN 31.9 pg (27.0-33.0); MEAN CORPUSCULAR HGB CONC 31.3 g/dl (32.0-36.5); MEAN CORPUSCULAR VOLUME 102.1 fl (80.0-96.0); PLATELET COUNT, AUTOMATED 155 10^3/uL (150-450); RED BLOOD COUNT 3.76 10^6/uL (4.30-6.10); RED CELL DISTRIBUTION WIDTH 17.2 % (11.5-14.5); WHITE BLOOD COUNT 7.2 10^3/uL (4.0-10.0)
[2017-09-22 10:19] LABS: ANION GAP 9 MEQ/L (8-16); BLOOD UREA NITROGEN 25 MG/DL (7-18); CARBON DIOXIDE LEVEL 29 MEQ/L (21-32); CHLORIDE LEVEL 103 MEQ/L (98-107); CREATININE FOR GFR 1.59 MG/DL (0.70-1.30); GLOMERULAR FILTRATION RATE 46.9 (>49); GLUCOSE, FASTING 186 MG/DL (70-100); SODIUM LEVEL 141 MEQ/L (136-145)
== END ==
DX: J18.9 Pneumonia, unspecified organism (principal)

== ENCOUNTER 2017-09-28 00:07 | Inpatient (IN) | payer MEDICARE, MEDICAID ==
[2017-09-28 00:33] LABS: ABG BASE EXCESS 1.7 (-2.0-2.0); ABG O2 SATURATION 96.7 % (95.0-99.0); ABG PARTIAL PRESSURE CO2 51.1 mmHg (35.0-45.0); ABG PARTIAL PRESSURE O2 92.4 mmHg (75.0-100.0); ABG TOTAL CO2 29.6 MEQ/L (23.0-31.0); ABG pH (ARTERIAL) 7.357 UNITS (7.350-7.450)
[2017-09-28 01:38] LABS: BASO % 0.3 % (0.0-1.0); EOS % 0.4 % (0.0-3.0); HEMATOCRIT 39.4 % (42.0-52.0); IMMATURE GRANULOCYTE % 2.3 % (0-3.0); LYMPH # 1.5 10^3/uL (1.5-4.5); LYMPH % 14.1 % (24.0-44.0); MEAN CORPUSCULAR HEMOGLOBIN 31.6 pg (27.0-33.0); MEAN CORPUSCULAR HGB CONC 30.5 g/dl (32.0-36.5); MEAN CORPUSCULAR VOLUME 103.7 fl (80.0-96.0); MONO # 0.5 10^3/uL (0.0-0.8); MONO % 5.2 % (0.0-5.0); NEUTROPHILS # 8.1 10^3/uL (1.8-7.7); NEUTROPHILS % 77.7 % (36.0-66.0); PLATELET COUNT, AUTOMATED 152 10^3/uL (150-450); RED CELL DISTRIBUTION WIDTH 17.2 % (11.5-14.5); WHITE BLOOD COUNT 10.4 10^3/uL (4.0-10.0)
[2017-09-28 01:59] LABS: ANION GAP 9 MEQ/L (8-16); BLOOD UREA NITROGEN 44 MG/DL (7-18); CARBON DIOXIDE LEVEL 30 MEQ/L (21-32); CHLORIDE LEVEL 104 MEQ/L (98-107); CK-MB VALUE MASS 2.5 NG/ML (<3.6); CPK CREATINE PHOSPHOKINASE 41 U/L (39-308); CREATININE FOR GFR 1.84 MG/DL (0.70-1.30); GLOMERULAR FILTRATION RATE 39.6 (>49); GLUCOSE, FASTING 206 MG/DL (70-100); MB/CK RELATIVE INDEX 6.09 (< OR =4); NT-PRO BNP 496 PG/ML (<125); POTASSIUM SERUM 3.8 MEQ/L (3.5-5.1); SODIUM LEVEL 143 MEQ/L (136-145); TROPONIN I 0.03 NG/ML (< 0.10)
[2017-09-28] MEDS: PIPERACILLIN/TAZOBACTAM SOD 3.375 GM in D5W MINI-BAG PLUS 50 ML IV ×4 (03:02→20:55)
[2017-09-28] MEDS ORDERED: GLUCAGON FOR INJ 1 MG VIAL (J1610) SC (04:15)
[2017-09-28] MEDS ORDERED: ACETAMINOPHEN TAB 650MG DOSE (2X325MG) PO (04:15)
[2017-09-28] MEDS ORDERED: GLUCOSE 4 GM CHEW TABLET PO (04:15)
[2017-09-28] MEDS ORDERED: HEPARIN SOD (PORCINE) 5000 UNITS/ML VIAL SC (04:15)
[2017-09-28] MEDS ORDERED: DEXTROSE 50% 50 ML SYRINGE IV (04:15)
[2017-09-28] MEDS: VANCOMYCIN HCL 1,000 MG, VIAL MATE ADAPTER 1 EACH in D5W 250 ML IV ×2 (04:28→12:22)
[2017-09-28] MEDS ORDERED: LOPERAMIDE 2 MG CAP PO (04:30)
[2017-09-28] MEDS ORDERED: BISACODYL 10 MG SUPP PR (04:30)
[2017-09-28] MEDS ORDERED: PILL CRUSHER/CUTTER 1 EACH XX (05:00)
[2017-09-28] MEDS: methylPREDNISolone INJ 40 MG/1 ML VIAL (J2920) IV ×3 (05:41→21:01)
[2017-09-28] MEDS: IPRATROPIUM 0.5MG/ALBUTEROL 2.5MG INH SOL UD 3ML (DUONEB)(J7620) NEB ×4 (07:30→19:57)
[2017-09-28 08:04] LABS: BASO % 0.3 % (0.0-1.0); HEMATOCRIT 35.1 % (42.0-52.0); HEMOGLOBIN 11.1 g/dl (13.5-17.5); IMMATURE GRANULOCYTE % 2.1 % (0-3.0); LYMPH # 0.7 10^3/uL (1.5-4.5); MEAN CORPUSCULAR HEMOGLOBIN 32.1 pg (27.0-33.0); MEAN CORPUSCULAR HGB CONC 31.6 g/dl (32.0-36.5); MEAN CORPUSCULAR VOLUME 101.4 fl (80.0-96.0); MONO # 0.2 10^3/uL (0.0-0.8); MONO % 1.8 % (0.0-5.0); NEUTROPHILS # 11.9 10^3/uL (1.8-7.7); NEUTROPHILS % 90.8 % (36.0-66.0); PLATELET COUNT, AUTOMATED 139 10^3/uL (150-450); RED BLOOD COUNT 3.46 10^6/uL (4.30-6.10); RED CELL DISTRIBUTION WIDTH 17.2 % (11.5-14.5); WHITE BLOOD COUNT 13.2 10^3/uL (4.0-10.0)
[2017-09-28 08:29] LABS: ALBUMIN/GLOBULIN RATIO 0.75 (1.00-1.93); ALKALINE PHOSPHATASE 73 U/L (45-117); ALT/SGPT 49 U/L (12-78); ANION GAP 10 MEQ/L (8-16); AST/SGOT 45 U/L (7-37); BILIRUBIN,TOTAL 0.5 MG/DL (0.2-1.0); BLOOD UREA NITROGEN 41 MG/DL (7-18); CALCIUM LEVEL 8.7 MG/DL (8.8-10.2); CARBON DIOXIDE LEVEL 25 MEQ/L (21-32); CHLORIDE LEVEL 104 MEQ/L (98-107); CREATININE FOR GFR 1.75 MG/DL (0.70-1.30); GLUCOSE, FASTING 324 MG/DL (70-100); MAGNESIUM LEVEL 1.9 MG/DL (1.8-2.4); SODIUM LEVEL 139 MEQ/L (136-145)
[2017-09-28 08:31] LABS: POTASSIUM SERUM 5.2 MEQ/L (3.5-5.1)
[2017-09-28] MEDS: PANTOPRAZOLE 40MG INJ (PROTONIX) (C9113) IV (08:37)
[2017-09-28] MEDS: rOPINIRole 1MG TAB PO (08:38)
[2017-09-28] MEDS: ALLOPURINOL 300 MG TAB PO (08:38)
[2017-09-28] MEDS: HumaLOG INSULIN (NovoLOG) PER UNIT SC ×4 (08:38→20:55)
[2017-09-28] MEDS: APIXABAN 5 MG TAB (ELIQUIS) PO ×2 (08:38→20:54)
[2017-09-28] MEDS: LACTOBACILLUS ACIDOPHILUS CAP (BACID) PO ×3 (08:39→17:37)
[2017-09-28] MEDS: GABAPENTIN 300 MG CAP PO ×3 (08:39→20:54)
[2017-09-28] MEDS: TORSEMIDE 20 MG TAB PO (08:40)
[2017-09-28] MEDS: ATENOLOL 25 MG TAB PO (08:40)
[2017-09-28] MEDS: CYANOCOBALAMIN 500 MCG TAB PO (08:40)
[2017-09-28] MEDS: FERROUS SULFATE 325MG TAB PO (08:41)
[2017-09-28] MEDS: ASPIRIN 81 MG ENTERIC TAB PO (08:41)
[2017-09-28] MEDS: POTASSIUM CHLORIDE 10 MEQ SR TABLET PO (08:58)
[2017-09-28] MEDS ORDERED: SOD POLYSTYRENE SULFONATE SUSP 15 GM/60 ML UD PO (11:00)
[2017-09-28 12:14] LABS: BEDSIDE GLUCOSE 409 MG/DL (80-115)
[2017-09-28 12:30] LABS: POTASSIUM SERUM 4.8 MEQ/L (3.5-5.1)
[2017-09-28] MEDS: ACETAMINOPHEN TAB 650MG DOSE (2X325MG) PO (14:12)
[2017-09-28 17:32] LABS: BEDSIDE GLUCOSE 321 MG/DL (80-115)
[2017-09-28 20:15] LABS: BEDSIDE GLUCOSE 394 MG/DL (80-115)
[2017-09-28] MEDS: rOPINIRole 2MG TAB PO (20:54)
[2017-09-28] MEDS: SERTRALINE HCL 50 MG TAB PO (20:54)
[2017-09-28] MEDS: PRAVASTATIN 20 MG TAB PO (20:54)
[2017-09-29] MEDS: VANCOMYCIN HCL 1,000 MG, VIAL MATE ADAPTER 1 EACH in D5W 250 ML IV (01:03)
[2017-09-29] MEDS: methylPREDNISolone INJ 40 MG/1 ML VIAL (J2920) IV ×2 (05:19→17:09)
[2017-09-29] MEDS: PIPERACILLIN/TAZOBACTAM SOD 3.375 GM in D5W MINI-BAG PLUS 50 ML IV ×4 (05:19→20:35)
[2017-09-29 05:43] LABS: BASO % 0.1 % (0.0-1.0); HEMATOCRIT 33.6 % (42.0-52.0); HEMOGLOBIN 10.7 g/dl (13.5-17.5); IMMATURE GRANULOCYTE % 1.9 % (0-3.0); LYMPH # 0.6 10^3/uL (1.5-4.5); MEAN CORPUSCULAR HEMOGLOBIN 31.5 pg (27.0-33.0); MEAN CORPUSCULAR HGB CONC 31.8 g/dl (32.0-36.5); MEAN CORPUSCULAR VOLUME 98.8 fl (80.0-96.0); MONO # 0.3 10^3/uL (0.0-0.8); MONO % 2.3 % (0.0-5.0); NEUTROPHILS # 11.7 10^3/uL (1.8-7.7); NEUTROPHILS % 90.7 % (36.0-66.0); PLATELET COUNT, AUTOMATED 136 10^3/uL (150-450); RED CELL DISTRIBUTION WIDTH 16.4 % (11.5-14.5); WHITE BLOOD COUNT 12.9 10^3/uL (4.0-10.0)
[2017-09-29 06:08] LABS: ALBUMIN/GLOBULIN RATIO 0.83 (1.00-1.93); ALKALINE PHOSPHATASE 67 U/L (45-117); ALT/SGPT 44 U/L (12-78); ANION GAP 9 MEQ/L (8-16); AST/SGOT 23 U/L (7-37); BILIRUBIN,TOTAL 0.3 MG/DL (0.2-1.0); BLOOD UREA NITROGEN 43 MG/DL (7-18); CALCIUM LEVEL 8.6 MG/DL (8.8-10.2); CARBON DIOXIDE LEVEL 26 MEQ/L (21-32); CHLORIDE LEVEL 101 MEQ/L (98-107); CREATININE FOR GFR 1.55 MG/DL (0.70-1.30); GLOMERULAR FILTRATION RATE 48.3 (>49); GLUCOSE, FASTING 290 MG/DL (70-100); MAGNESIUM LEVEL 1.8 MG/DL (1.8-2.4); POTASSIUM SERUM 4.3 MEQ/L (3.5-5.1); SODIUM LEVEL 136 MEQ/L (136-145); TOTAL PROTEIN 6.6 GM/DL (6.4-8.2)
[2017-09-29] MEDS: IPRATROPIUM 0.5MG/ALBUTEROL 2.5MG INH SOL UD 3ML (DUONEB)(J7620) NEB ×4 (07:17→20:01)
[2017-09-29] MEDS: HumaLOG INSULIN (NovoLOG) PER UNIT SC ×4 (07:30→20:36)
[2017-09-29] MEDS: ASPIRIN 81 MG ENTERIC TAB PO (08:50)
[2017-09-29] MEDS: LACTOBACILLUS ACIDOPHILUS CAP (BACID) PO ×3 (08:50→17:09)
[2017-09-29] MEDS: FERROUS SULFATE 325MG TAB PO (08:50)
[2017-09-29] MEDS: APIXABAN 5 MG TAB (ELIQUIS) PO ×2 (08:50→20:36)
[2017-09-29] MEDS: CYANOCOBALAMIN 500 MCG TAB PO (08:50)
[2017-09-29] MEDS: GABAPENTIN 300 MG CAP PO ×3 (08:50→20:35)
[2017-09-29] MEDS: rOPINIRole 1MG TAB PO (08:50)
[2017-09-29] MEDS: TORSEMIDE 20 MG TAB PO (08:50)
[2017-09-29] MEDS: ALLOPURINOL 300 MG TAB PO (08:50)
[2017-09-29] MEDS: ATENOLOL 25 MG TAB PO (08:51)
[2017-09-29] MEDS: PANTOPRAZOLE 40MG INJ (PROTONIX) (C9113) IV (08:51)
[2017-09-29 11:53] LABS: BEDSIDE GLUCOSE 327 MG/DL (80-115)
[2017-09-29 16:54] LABS: BEDSIDE GLUCOSE 441 MG/DL (80-115)
[2017-09-29 20:23] LABS: BEDSIDE GLUCOSE 452 MG/DL (80-115)
[2017-09-29] MEDS: rOPINIRole 2MG TAB PO (20:35)
[2017-09-29] MEDS: PRAVASTATIN 20 MG TAB PO (20:35)
[2017-09-29] MEDS: SERTRALINE HCL 50 MG TAB PO (20:35)
[2017-09-29] MEDS: LEVEMIR (INSULIN DETEMIR) 1 UNITS/0.01ML SC (20:36)
[2017-09-29] MEDS: ACETAMINOPHEN TAB 650MG DOSE (2X325MG) PO (20:42)
[2017-09-29] MEDS: guaiFENesin SYRUP 200 MG/10 ML UDC PO (20:42)
[2017-09-30] MEDS: PIPERACILLIN/TAZOBACTAM SOD 3.375 GM in D5W MINI-BAG PLUS 50 ML IV ×2 (02:37→08:29)
[2017-09-30] MEDS: ACETAMINOPHEN TAB 650MG DOSE (2X325MG) PO (02:42)
[2017-09-30] MEDS: methylPREDNISolone INJ 40 MG/1 ML VIAL (J2920) IV (05:19)
[2017-09-30 05:49] LABS: BASO % 0.2 % (0.0-1.0); HEMATOCRIT 34.8 % (42.0-52.0); HEMOGLOBIN 10.8 g/dl (13.5-17.5); IMMATURE GRANULOCYTE % 3.2 % (0-3.0); LYMPH # 0.5 10^3/uL (1.5-4.5); LYMPH % 4.2 % (24.0-44.0); MEAN CORPUSCULAR HEMOGLOBIN 31.1 pg (27.0-33.0); MEAN CORPUSCULAR VOLUME 100.3 fl (80.0-96.0); MONO # 0.5 10^3/uL (0.0-0.8); MONO % 4.3 % (0.0-5.0); NEUTROPHILS # 10.3 10^3/uL (1.8-7.7); NEUTROPHILS % 88.1 % (36.0-66.0); PLATELET COUNT, AUTOMATED 150 10^3/uL (150-450); RED BLOOD COUNT 3.47 10^6/uL (4.30-6.10); RED CELL DISTRIBUTION WIDTH 16.6 % (11.5-14.5); WHITE BLOOD COUNT 11.6 10^3/uL (4.0-10.0)
[2017-09-30 06:12] LABS: ALBUMIN 3.1 GM/DL (3.2-5.2); ALBUMIN/GLOBULIN RATIO 0.82 (1.00-1.93); ALKALINE PHOSPHATASE 79 U/L (45-117); ALT/SGPT 61 U/L (12-78); ANION GAP 10 MEQ/L (8-16); AST/SGOT 35 U/L (7-37); BILIRUBIN,TOTAL 0.3 MG/DL (0.2-1.0); BLOOD UREA NITROGEN 48 MG/DL (7-18); CALCIUM LEVEL 8.8 MG/DL (8.8-10.2); CARBON DIOXIDE LEVEL 27 MEQ/L (21-32); CHLORIDE LEVEL 101 MEQ/L (98-107); CREATININE FOR GFR 1.62 MG/DL (0.70-1.30); GLOMERULAR FILTRATION RATE 45.9 (>49); GLUCOSE, FASTING 335 MG/DL (70-100); MAGNESIUM LEVEL 2.1 MG/DL (1.8-2.4); POTASSIUM SERUM 4.1 MEQ/L (3.5-5.1); SODIUM LEVEL 138 MEQ/L (136-145); TOTAL PROTEIN 6.9 GM/DL (6.4-8.2)
[2017-09-30] MEDS: PERCOCET 5MG/325MG TAB PO ×2 (06:22→23:08)
[2017-09-30] MEDS: IPRATROPIUM 0.5MG/ALBUTEROL 2.5MG INH SOL UD 3ML (DUONEB)(J7620) NEB ×4 (07:46→20:00)
[2017-09-30] MEDS: PANTOPRAZOLE 40MG INJ (PROTONIX) (C9113) IV (08:29)
[2017-09-30] MEDS: HumaLOG INSULIN (NovoLOG) PER UNIT SC ×4 (08:29→20:40)
[2017-09-30] MEDS: LEVEMIR (INSULIN DETEMIR) 1 UNITS/0.01ML SC ×2 (08:29→20:40)
[2017-09-30] MEDS: rOPINIRole 1MG TAB PO (08:30)
[2017-09-30] MEDS: ASPIRIN 81 MG ENTERIC TAB PO (08:30)
[2017-09-30] MEDS: GABAPENTIN 300 MG CAP PO ×3 (08:30→20:41)
[2017-09-30] MEDS: TORSEMIDE 20 MG TAB PO ×2 (08:30→08:53)
[2017-09-30] MEDS: LACTOBACILLUS ACIDOPHILUS CAP (BACID) PO ×3 (08:30→16:38)
[2017-09-30] MEDS: FERROUS SULFATE 325MG TAB PO (08:31)
[2017-09-30] MEDS: APIXABAN 5 MG TAB (ELIQUIS) PO ×2 (08:31→20:41)
[2017-09-30] MEDS: ATENOLOL 25 MG TAB PO (08:31)
[2017-09-30] MEDS: CYANOCOBALAMIN 500 MCG TAB PO (08:31)
[2017-09-30] MEDS: ALLOPURINOL 300 MG TAB PO (08:31)
[2017-09-30] MEDS ORDERED: PANTOPRAZOLE 40MG TAB (PROTONIX) PO (09:00)
[2017-09-30 11:26] LABS: BEDSIDE GLUCOSE 400 MG/DL (80-115)
[2017-09-30 16:34] LABS: BEDSIDE GLUCOSE 347 MG/DL (80-115)
[2017-09-30] MEDS: BACTRIM 160MG/800MG DS TAB PO (16:38)
[2017-09-30 20:36] LABS: BEDSIDE GLUCOSE 327 MG/DL (80-115)
[2017-09-30] MEDS: SERTRALINE HCL 50 MG TAB PO (20:41)
[2017-09-30] MEDS: PRAVASTATIN 20 MG TAB PO (20:41)
[2017-09-30] MEDS: predniSONE 20 MG TAB PO (20:41)
[2017-09-30] MEDS: rOPINIRole 2MG TAB PO (20:57)
[2017-10-01 07:27] LABS: BASO % 0.4 % (0.0-1.0); HEMATOCRIT 36.7 % (42.0-52.0); HEMOGLOBIN 11.8 g/dl (13.5-17.5); IMMATURE GRANULOCYTE % 4.5 % (0-3.0); LYMPH # 0.6 10^3/uL (1.5-4.5); LYMPH % 6.1 % (24.0-44.0); MEAN CORPUSCULAR HEMOGLOBIN 31.6 pg (27.0-33.0); MEAN CORPUSCULAR HGB CONC 32.2 g/dl (32.0-36.5); MEAN CORPUSCULAR VOLUME 98.4 fl (80.0-96.0); MONO # 0.4 10^3/uL (0.0-0.8); MONO % 4.1 % (0.0-5.0); NEUTROPHILS # 7.7 10^3/uL (1.8-7.7); NEUTROPHILS % 84.9 % (36.0-66.0); PLATELET COUNT, AUTOMATED 155 10^3/uL (150-450); RED BLOOD COUNT 3.73 10^6/uL (4.30-6.10); RED CELL DISTRIBUTION WIDTH 16.6 % (11.5-14.5); WHITE BLOOD COUNT 9.1 10^3/uL (4.0-10.0)
[2017-10-01 07:44] LABS: ALBUMIN 3.3 GM/DL (3.2-5.2); ALKALINE PHOSPHATASE 87 U/L (45-117); ALT/SGPT 70 U/L (12-78); ANION GAP 11 MEQ/L (8-16); AST/SGOT 45 U/L (7-37); BILIRUBIN,TOTAL 0.3 MG/DL (0.2-1.0); BLOOD UREA NITROGEN 51 MG/DL (7-18); CALCIUM LEVEL 9.1 MG/DL (8.8-10.2); CARBON DIOXIDE LEVEL 30 MEQ/L (21-32); CHLORIDE LEVEL 98 MEQ/L (98-107); CREATININE FOR GFR 1.66 MG/DL (0.70-1.30); GLOMERULAR FILTRATION RATE 44.6 (>49); GLUCOSE, FASTING 345 MG/DL (70-100); MAGNESIUM LEVEL 2.2 MG/DL (1.8-2.4); POTASSIUM SERUM 4.3 MEQ/L (3.5-5.1); SODIUM LEVEL 139 MEQ/L (136-145); TOTAL PROTEIN 7.4 GM/DL (6.4-8.2)
[2017-10-01] MEDS: IPRATROPIUM 0.5MG/ALBUTEROL 2.5MG INH SOL UD 3ML (DUONEB)(J7620) NEB ×4 (07:47→19:17)
[2017-10-01] MEDS: ATENOLOL 25 MG TAB PO (09:03)
[2017-10-01] MEDS: rOPINIRole 1MG TAB PO (09:03)
[2017-10-01] MEDS: PANTOPRAZOLE 40MG TAB (PROTONIX) PO (09:03)
[2017-10-01] MEDS: ASPIRIN 81 MG ENTERIC TAB PO (09:04)
[2017-10-01] MEDS: TORSEMIDE 20 MG TAB PO (09:04)
[2017-10-01] MEDS: GABAPENTIN 300 MG CAP PO ×3 (09:04→20:52)
[2017-10-01] MEDS: LACTOBACILLUS ACIDOPHILUS CAP (BACID) PO ×3 (09:04→17:44)
[2017-10-01] MEDS: ACETAMINOPHEN TAB 650MG DOSE (2X325MG) PO ×3 (09:04→17:44)
[2017-10-01] MEDS: CYANOCOBALAMIN 500 MCG TAB PO (09:04)
[2017-10-01] MEDS: FERROUS SULFATE 325MG TAB PO (09:05)
[2017-10-01] MEDS: predniSONE 20 MG TAB PO ×2 (09:05→20:52)
[2017-10-01] MEDS: ALLOPURINOL 300 MG TAB PO (09:05)
[2017-10-01] MEDS: APIXABAN 5 MG TAB (ELIQUIS) PO ×2 (09:05→20:52)
[2017-10-01] MEDS: LEVEMIR (INSULIN DETEMIR) 1 UNITS/0.01ML SC ×2 (09:05→20:51)
[2017-10-01] MEDS: HumaLOG INSULIN (NovoLOG) PER UNIT SC ×4 (09:06→20:51)
[2017-10-01 11:10] LABS: BEDSIDE GLUCOSE 241 MG/DL (80-115)
[2017-10-01 20:10] LABS: BEDSIDE GLUCOSE 306 MG/DL (80-115)
[2017-10-01 20:39] LABS: BEDSIDE GLUCOSE 387 MG/DL (80-115)
[2017-10-01] MEDS: rOPINIRole 2MG TAB PO (20:51)
[2017-10-01] MEDS: PRAVASTATIN 20 MG TAB PO (20:52)
[2017-10-01] MEDS: SERTRALINE HCL 50 MG TAB PO (20:53)
[2017-10-01] MEDS: guaiFENesin DM LIQ 10ML UD PO (22:32)
[2017-10-02 06:54] LABS: HEMOGLOBIN 11.8 g/dl (13.5-17.5); MEAN CORPUSCULAR HEMOGLOBIN 31.6 pg (27.0-33.0); MEAN CORPUSCULAR HGB CONC 31.9 g/dl (32.0-36.5); MEAN CORPUSCULAR VOLUME 99.2 fl (80.0-96.0); PLATELET COUNT, AUTOMATED 152 10^3/uL (150-450); RED BLOOD COUNT 3.73 10^6/uL (4.30-6.10); RED CELL DISTRIBUTION WIDTH 16.5 % (11.5-14.5); WHITE BLOOD COUNT 9.4 10^3/uL (4.0-10.0)
[2017-10-02 07:04] LABS: ADD MANUAL DIFFER YES; DIFF SLIDE NUMBER 15; POS COUNT POS FLAG; POSITIVE MORPH POS FLAG
[2017-10-02] MEDS: IPRATROPIUM 0.5MG/ALBUTEROL 2.5MG INH SOL UD 3ML (DUONEB)(J7620) NEB ×2 (07:09→11:34)
[2017-10-02 07:15] LABS: ANISOCYTOSIS 1+; ATYPICAL LYMPH 1 % (0-5); LYMPHOCYTES 6 % (16-52); METAMYELOCYTES 1 % (0-0); MONOCYTES 3 % (0-8); NEUTROPHILS 89 % (35-75); PLATELET ESTIMATE NORMAL (NORMAL)
[2017-10-02 07:18] LABS: ALBUMIN 3.2 GM/DL (3.2-5.2); ALBUMIN/GLOBULIN RATIO 0.82 (1.00-1.93); ALKALINE PHOSPHATASE 103 U/L (45-117); ALT/SGPT 64 U/L (12-78); ANION GAP 10 MEQ/L (8-16); AST/SGOT 30 U/L (7-37); BILIRUBIN,TOTAL 0.4 MG/DL (0.2-1.0); BLOOD UREA NITROGEN 56 MG/DL (7-18); CALCIUM LEVEL 8.9 MG/DL (8.8-10.2); CARBON DIOXIDE LEVEL 30 MEQ/L (21-32); CHLORIDE LEVEL 98 MEQ/L (98-107); CREATININE FOR GFR 1.69 MG/DL (0.70-1.30); GLOMERULAR FILTRATION RATE 43.7 (>49); GLUCOSE, FASTING 371 MG/DL (70-100); MAGNESIUM LEVEL 2.1 MG/DL (1.8-2.4); POTASSIUM SERUM 4.6 MEQ/L (3.5-5.1); SODIUM LEVEL 138 MEQ/L (136-145); TOTAL PROTEIN 7.1 GM/DL (6.4-8.2)
[2017-10-02] MEDS: HumaLOG INSULIN (NovoLOG) PER UNIT SC ×2 (07:56→12:25)
[2017-10-02] MEDS: LEVEMIR (INSULIN DETEMIR) 1 UNITS/0.01ML SC (07:56)
[2017-10-02] MEDS: ATENOLOL 25 MG TAB PO (07:57)
[2017-10-02] MEDS: LACTOBACILLUS ACIDOPHILUS CAP (BACID) PO ×2 (07:57→12:25)
[2017-10-02] MEDS: GABAPENTIN 300 MG CAP PO (07:57)
[2017-10-02] MEDS: TORSEMIDE 20 MG TAB PO (07:58)
[2017-10-02] MEDS: ACETAMINOPHEN TAB 650MG DOSE (2X325MG) PO (07:58)
[2017-10-02] MEDS: PANTOPRAZOLE 40MG TAB (PROTONIX) PO (07:58)
[2017-10-02] MEDS: FERROUS SULFATE 325MG TAB PO (07:59)
[2017-10-02] MEDS: predniSONE 20 MG TAB PO (08:00)
[2017-10-02] MEDS: ALLOPURINOL 300 MG TAB PO (08:00)
[2017-10-02] MEDS: BACTRIM 160MG/800MG DS TAB PO (08:00)
[2017-10-02] MEDS: ASPIRIN 81 MG ENTERIC TAB PO (08:00)
[2017-10-02] MEDS: rOPINIRole 1MG TAB PO (08:00)
[2017-10-02] MEDS: CYANOCOBALAMIN 500 MCG TAB PO (08:00)
[2017-10-02] MEDS: APIXABAN 5 MG TAB (ELIQUIS) PO (08:00)
== END 2017-10-02 12:40 | DRG 190 ==
LOC: M MS5PR 09-30 21:18 → M ED 00:07 → M ED INP 04:07 → M ICU 05:18 → M PCU 19:29
DX: J44.1 Chronic obstructive pulmonary disease with (acute) exacerbation (principal); J18.9 Pneumonia, unspecified organism; I50.32 Chronic diastolic (congestive) heart failure; E11.22 Type 2 diabetes mellitus with diabetic chronic kidney disease; G47.33 Obstructive sleep apnea (adult) (pediatric); N18.3 Chronic kidney disease, stage 3 (moderate); I48.0 Paroxysmal atrial fibrillation; G25.81 Restless legs syndrome; J44.0 Chronic obstructive pulmonary disease with (acute) lower respiratory infection; Z66 Do not resuscitate; E27.9 Disorder of adrenal gland, unspecified; E11.42 Type 2 diabetes mellitus with diabetic polyneuropathy; R09.02 Hypoxemia; Z85.118 Personal history of other malignant neoplasm of bronchus and lung; Z90.2 Acquired absence of lung [part of]; Z90.49 Acquired absence of other specified parts of digestive tract; Z90.5 Acquired absence of kidney; Z87.891 Personal history of nicotine dependence; Z88.5 Allergy status to narcotic agent; S96.211A Strain of intrinsic muscle and tendon at ankle and foot level, right foot, initial encounter; Y93.B9 Activity, other involving muscle strengthening exercises; Y92.239 Unspecified place in hospital as the place of occurrence of the external cause

== ENCOUNTER → 2017-10-06 | Outpatient (REF) | payer MEDICAID, MEDICARE ==
[2017-10-06 09:54] LABS: HEMATOCRIT 38.3 % (42.0-52.0); HEMOGLOBIN 12.2 g/dl (13.5-17.5); MEAN CORPUSCULAR HEMOGLOBIN 31.8 pg (27.0-33.0); MEAN CORPUSCULAR HGB CONC 31.9 g/dl (32.0-36.5); MEAN CORPUSCULAR VOLUME 99.7 fl (80.0-96.0); PLATELET COUNT, AUTOMATED 156 10^3/uL (150-450); RED BLOOD COUNT 3.84 10^6/uL (4.30-6.10); RED CELL DISTRIBUTION WIDTH 16.4 % (11.5-14.5); WHITE BLOOD COUNT 8.7 10^3/uL (4.0-10.0)
[2017-10-06 10:35] LABS: ANION GAP 17 MEQ/L (8-16); BLOOD UREA NITROGEN 49 MG/DL (7-18); CALCIUM LEVEL 8.8 MG/DL (8.8-10.2); CARBON DIOXIDE LEVEL 22 MEQ/L (21-32); CHLORIDE LEVEL 101 MEQ/L (98-107); CREATININE FOR GFR 1.73 MG/DL (0.70-1.30); GLOMERULAR FILTRATION RATE 42.5 (>49); GLUCOSE, FASTING 196 MG/DL (70-100); POTASSIUM SERUM 3.9 MEQ/L (3.5-5.1); SODIUM LEVEL 140 MEQ/L (136-145)
== END ==
DX: I50.9 Heart failure, unspecified (principal)

== ENCOUNTER → 2017-10-07 | Outpatient (REF) | payer MEDICARE, MEDICAID | DX: M25.551 Pain in right hip (principal); M25.571 Pain in right ankle and joints of right foot; W19.XXXA Unspecified fall, initial encounter ==

== ENCOUNTER 2017-10-08 02:02 | Inpatient (IN) | payer MEDICARE, MEDICAID ==
[2017-10-08] MEDS: IPRATROPIUM 0.5MG/ALBUTEROL 2.5MG INH SOL UD 3ML (DUONEB)(J7620) NEB ×2 (02:21→21:22)
[2017-10-08 02:40] LABS: ABG HCO3 25.2 MEQ/L (22.0-26.0); ABG O2 SATURATION 98.9 % (95.0-99.0); ABG PARTIAL PRESSURE CO2 42.6 mmHg (35.0-45.0); ABG PARTIAL PRESSURE O2 138.5 mmHg (75.0-100.0); ABG STANDARD HCO3 24.6 MEQ/L (22.0-26.0); ABG TOTAL CO2 26.5 MEQ/L (23.0-31.0); ABG pH (ARTERIAL) 7.389 UNITS (7.350-7.450)
[2017-10-08] MEDS: ASPIRIN 81 MG CHEW TABLET PO (02:43)
[2017-10-08 03:05] LABS: BASO % 0.3 % (0.0-1.0); EOS % 0.1 % (0.0-3.0); HEMATOCRIT 42.4 % (42.0-52.0); HEMOGLOBIN 13.2 g/dl (13.5-17.5); IMMATURE GRANULOCYTE % 1.4 % (0-3.0); LYMPH # 1.5 10^3/uL (1.5-4.5); LYMPH % 10.1 % (24.0-44.0); MEAN CORPUSCULAR HEMOGLOBIN 31.3 pg (27.0-33.0); MEAN CORPUSCULAR HGB CONC 31.1 g/dl (32.0-36.5); MEAN CORPUSCULAR VOLUME 100.5 fl (80.0-96.0); MONO # 0.5 10^3/uL (0.0-0.8); MONO % 3.7 % (0.0-5.0); NEUTROPHILS # 12.2 10^3/uL (1.8-7.7); NEUTROPHILS % 84.4 % (36.0-66.0); PLATELET COUNT, AUTOMATED 143 10^3/uL (150-450); RED BLOOD COUNT 4.22 10^6/uL (4.30-6.10); RED CELL DISTRIBUTION WIDTH 16.5 % (11.5-14.5); WHITE BLOOD COUNT 14.5 10^3/uL (4.0-10.0)
[2017-10-08 03:23] LABS: POS COUNT POS FLAG
[2017-10-08 03:24] LABS: ANION GAP 10 MEQ/L (8-16); BLOOD UREA NITROGEN 39 MG/DL (7-18); CALCIUM LEVEL 9.4 MG/DL (8.8-10.2); CARBON DIOXIDE LEVEL 28 MEQ/L (21-32); CHLORIDE LEVEL 98 MEQ/L (98-107); CK-MB VALUE MASS 2.6 NG/ML (<3.6); CPK CREATINE PHOSPHOKINASE 49 U/L (39-308); CREATININE FOR GFR 1.66 MG/DL (0.70-1.30); GLOMERULAR FILTRATION RATE 44.6 (>49); GLUCOSE, FASTING 228 MG/DL (70-100); POTASSIUM SERUM 4.1 MEQ/L (3.5-5.1); SODIUM LEVEL 136 MEQ/L (136-145); TROPONIN I 0.03 NG/ML (< 0.10)
[2017-10-08 03:54] LABS: LACTIC ACID SEPSIS PROTOCOL 3.7 MMOL/L (0.4-2.0)
[2017-10-08 04:13] LABS: NT-PRO BNP 519 PG/ML (<125)
[2017-10-08] MEDS: NS 1,000 ML IV (04:15)
[2017-10-08] MEDS: PIPERACILLIN/TAZOBACTAM SOD 3.375 GM in D5W MINI-BAG PLUS 50 ML IV (04:16)
[2017-10-08] MEDS: VANCOMYCIN HCL 1,000 MG, VIAL MATE ADAPTER 1 EACH in D5W 250 ML IV (04:29)
[2017-10-08] MEDS ORDERED: MOM 30ML SUSPENSION UDC PO (06:45)
[2017-10-08] MEDS ORDERED: LOPERAMIDE 2 MG CAP PO (06:45)
[2017-10-08] MEDS ORDERED: ALBUTEROL 90 MCG/ACT 8GM HFA INHALER INH (06:45)
[2017-10-08] MEDS ORDERED: BISACODYL 10 MG SUPP PR (06:45)
[2017-10-08 07:04] LABS: ABG BASE EXCESS 0.8 (-2.0-2.0); ABG HCO3 26.6 MEQ/L (22.0-26.0); ABG O2 SATURATION 95.1 % (95.0-99.0); ABG PARTIAL PRESSURE CO2 47.7 mmHg (35.0-45.0); ABG PARTIAL PRESSURE O2 80.5 mmHg (75.0-100.0); ABG STANDARD HCO3 25.1 MEQ/L (22.0-26.0); ABG TOTAL CO2 28.1 MEQ/L (23.0-31.0); ABG pH (ARTERIAL) 7.365 UNITS (7.350-7.450)
[2017-10-08] MEDS: HumaLOG INSULIN (NovoLOG) PER UNIT SC ×5 (07:30→21:34)
[2017-10-08] MEDS: SODIUM CHLORIDE 0.9% 3ML NEB SOLUTION FOR INHALATION INH (08:00)
[2017-10-08 08:02] LABS: MAGNESIUM LEVEL 1.9 MG/DL (1.8-2.4)
[2017-10-08 08:02] LABS: PHOSPHORUS LEVEL 3.6 MG/DL (2.5-4.9)
[2017-10-08] MEDS: ALLOPURINOL 300 MG TAB PO (09:32)
[2017-10-08] MEDS: rOPINIRole 1MG TAB PO ×2 (09:32→21:34)
[2017-10-08] MEDS: ATENOLOL 25 MG TAB PO (09:34)
[2017-10-08] MEDS: APIXABAN 5 MG TAB (ELIQUIS) PO ×2 (09:34→18:18)
[2017-10-08] MEDS: ASPIRIN 81 MG ENTERIC TAB PO (09:37)
[2017-10-08] MEDS: GABAPENTIN 300 MG CAP PO ×3 (09:37→21:34)
[2017-10-08] MEDS: CYANOCOBALAMIN 500 MCG TAB PO (09:37)
[2017-10-08] MEDS: FERROUS SULFATE 325MG TAB PO (09:38)
[2017-10-08] MEDS: CHLORHEXIDINE ORAL RINSE 0.12%/15ML 120ML BOTTLE MT ×2 (09:38→21:53)
[2017-10-08] MEDS: methylPREDNISolone INJ 40 MG/1 ML VIAL (J2920) IV ×3 (09:38→21:33)
[2017-10-08] MEDS: CEFEPIME HCL 2 GM in D5W MINI-BAG PLUS 50 ML IV ×3 (09:39→23:25)
[2017-10-08] MEDS: ACETAMINOPHEN 500 MG TAB PO ×3 (09:41→21:35)
[2017-10-08 10:38] LABS: BEDSIDE GLUCOSE 185 MG/DL (80-115)
[2017-10-08 12:29] LABS: BEDSIDE GLUCOSE 281 MG/DL (80-115)
[2017-10-08] MEDS: POTASSIUM CHLORIDE 10 MEQ SR TABLET PO (12:30)
[2017-10-08 17:48] LABS: BEDSIDE GLUCOSE 250 MG/DL (80-115)
[2017-10-08] MEDS: PRAVASTATIN 20 MG TAB PO (18:18)
[2017-10-08 20:35] LABS: MAGNESIUM LEVEL 2.1 MG/DL (1.8-2.4)
[2017-10-08 20:54] LABS: BEDSIDE GLUCOSE 500 MG/DL (80-115)
[2017-10-08] MEDS: SERTRALINE HCL 50 MG TAB PO (21:34)
[2017-10-08] MEDS: PANTOPRAZOLE 40MG TAB (PROTONIX) PO (21:34)
[2017-10-08] MEDS: FUROSEMIDE 40 MG TAB PO (21:53)
[2017-10-09 00:14] LABS: BEDSIDE GLUCOSE 358 MG/DL (80-115)
[2017-10-09] MEDS: methylPREDNISolone INJ 40 MG/1 ML VIAL (J2920) IV ×3 (02:02→14:00)
[2017-10-09] MEDS: ACETAMINOPHEN 500 MG TAB PO ×2 (05:02→14:01)
[2017-10-09 05:54] LABS: HEMATOCRIT 34.7 % (42.0-52.0); MEAN CORPUSCULAR HEMOGLOBIN 31.7 pg (27.0-33.0); MEAN CORPUSCULAR HGB CONC 32.3 g/dl (32.0-36.5); MEAN CORPUSCULAR VOLUME 98.3 fl (80.0-96.0); PLATELET COUNT, AUTOMATED 130 10^3/uL (150-450); RED BLOOD COUNT 3.53 10^6/uL (4.30-6.10); RED CELL DISTRIBUTION WIDTH 16.4 % (11.5-14.5); WHITE BLOOD COUNT 13.3 10^3/uL (4.0-10.0)
[2017-10-09 05:57] LABS: HEMOGLOBIN 11.2 g/dl (13.5-17.5)
[2017-10-09 06:08] LABS: ANION GAP 9 MEQ/L (8-16); BLOOD UREA NITROGEN 32 MG/DL (7-18); CALCIUM LEVEL 8.9 MG/DL (8.8-10.2); CARBON DIOXIDE LEVEL 27 MEQ/L (21-32); CHLORIDE LEVEL 98 MEQ/L (98-107); GLOMERULAR FILTRATION RATE 50.2 (>49); GLUCOSE, FASTING 290 MG/DL (70-100); POTASSIUM SERUM 4.8 MEQ/L (3.5-5.1); SODIUM LEVEL 134 MEQ/L (136-145)
[2017-10-09 06:19] LABS: ABG BASE EXCESS 2.7 (-2.0-2.0); ABG HCO3 27.4 MEQ/L (22.0-26.0); ABG PARTIAL PRESSURE CO2 42.5 mmHg (35.0-45.0); ABG PARTIAL PRESSURE O2 85.9 mmHg (75.0-100.0); ABG STANDARD HCO3 26.9 MEQ/L (22.0-26.0); ABG TOTAL CO2 28.7 MEQ/L (23.0-31.0); ABG pH (ARTERIAL) 7.427 UNITS (7.350-7.450)
[2017-10-09] MEDS: ATENOLOL 25 MG TAB PO (08:46)
[2017-10-09] MEDS: rOPINIRole 1MG TAB PO (08:46)
[2017-10-09] MEDS: CEFEPIME HCL 2 GM in D5W MINI-BAG PLUS 50 ML IV ×2 (08:46→15:56)
[2017-10-09] MEDS: ALLOPURINOL 300 MG TAB PO (08:46)
[2017-10-09] MEDS: HumaLOG INSULIN (NovoLOG) PER UNIT SC ×2 (08:46→14:01)
[2017-10-09] MEDS: APIXABAN 5 MG TAB (ELIQUIS) PO (08:46)
[2017-10-09] MEDS: CYANOCOBALAMIN 500 MCG TAB PO (08:47)
[2017-10-09] MEDS: ASPIRIN 81 MG ENTERIC TAB PO (08:47)
[2017-10-09] MEDS: GABAPENTIN 300 MG CAP PO ×2 (08:47→16:00)
[2017-10-09] MEDS: FERROUS SULFATE 325MG TAB PO (08:47)
[2017-10-09] MEDS: CHLORHEXIDINE ORAL RINSE 0.12%/15ML 120ML BOTTLE MT (09:00)
[2017-10-09] MEDS ORDERED: guaiFENesin/CODEINE SYRUP 5 ML UDC PO (10:15)
[2017-10-09 10:52] LABS: HEMATOCRIT 33.8 % (42.0-52.0); HEMOGLOBIN 10.9 g/dl (13.5-17.5); MEAN CORPUSCULAR HEMOGLOBIN 31.8 pg (27.0-33.0); MEAN CORPUSCULAR HGB CONC 32.2 g/dl (32.0-36.5); MEAN CORPUSCULAR VOLUME 98.5 fl (80.0-96.0); PLATELET COUNT, AUTOMATED 143 10^3/uL (150-450); RED BLOOD COUNT 3.43 10^6/uL (4.30-6.10); RED CELL DISTRIBUTION WIDTH 16.3 % (11.5-14.5); WHITE BLOOD COUNT 16.2 10^3/uL (4.0-10.0)
[2017-10-09 11:40] LABS: ANION GAP 9 MEQ/L (8-16); BLOOD UREA NITROGEN 34 MG/DL (7-18); CALCIUM LEVEL 8.8 MG/DL (8.8-10.2); CARBON DIOXIDE LEVEL 27 MEQ/L (21-32); CHLORIDE LEVEL 96 MEQ/L (98-107); CREATININE FOR GFR 1.65 MG/DL (0.70-1.30); GLOMERULAR FILTRATION RATE 44.9 (>49); GLUCOSE, FASTING 398 MG/DL (70-100); POTASSIUM SERUM 4.8 MEQ/L (3.5-5.1); SODIUM LEVEL 132 MEQ/L (136-145)
[2017-10-09 12:28] LABS: BEDSIDE GLUCOSE 331 MG/DL (80-115)
[2017-10-09] MEDS: POTASSIUM CHLORIDE 10 MEQ SR TABLET PO (14:01)
== END 2017-10-09 16:50 | DRG 189 ==
LOC: M ED 02:02 → M ED INP 06:23 → M ICU 07:47 → M PCU 18:09
DX: J96.21 Acute and chronic respiratory failure with hypoxia (principal); J44.1 Chronic obstructive pulmonary disease with (acute) exacerbation; I50.32 Chronic diastolic (congestive) heart failure; E87.2 Acidosis; Z68.41 Body mass index [BMI] 40.0-44.9, adult; E11.22 Type 2 diabetes mellitus with diabetic chronic kidney disease; I48.0 Paroxysmal atrial fibrillation; N18.3 Chronic kidney disease, stage 3 (moderate); G47.33 Obstructive sleep apnea (adult) (pediatric); Z66 Do not resuscitate; E66.01 Morbid (severe) obesity due to excess calories; E11.621 Type 2 diabetes mellitus with foot ulcer; L97.529 Non-pressure chronic ulcer of other part of left foot with unspecified severity; Z99.81 Dependence on supplemental oxygen; Z86.14 Personal history of Methicillin resistant Staphylococcus aureus infection; E27.9 Disorder of adrenal gland, unspecified; G25.81 Restless legs syndrome; Z85.118 Personal history of other malignant neoplasm of bronchus and lung; Z90.2 Acquired absence of lung [part of]; Z90.5 Acquired absence of kidney; Z90.49 Acquired absence of other specified parts of digestive tract; Z88.5 Allergy status to narcotic agent; Z79.52 Long term (current) use of systemic steroids; Z79.899 Other long term (current) drug therapy; Z88.8 Allergy status to other drugs, medicaments and biological substances

== ENCOUNTER 2017-10-20 14:18 | Outpatient (CLI) | payer MEDICARE, MEDICAID ==
[2017-10-20] MEDS: ACETAMINOPHEN TAB 650MG DOSE (2X325MG) PO (16:04)
[2017-10-20] MEDS: diphenhydrAMINE 50 MG CAP PO (16:04)
[2017-10-20] MEDS: IMMUNE GLOBULIN 10% 10GM 100ML 10 GM in APPROPRIATE DILUENT 1 EA IV (16:05)
[2017-10-20] MEDS: IMMUNE GLOBULIN 10% 20GM 200ML 20 GM in APPROPRIATE DILUENT 1 EA IV (16:06)
== END 2017-10-20 18:15 | disposition home or self-care (01) ==
LOC: M INFU 14:18
DX: D80.1 Nonfamilial hypogammaglobulinemia (principal); E78.5 Hyperlipidemia, unspecified; E78.00 Pure hypercholesterolemia, unspecified; I12.9 Hypertensive chronic kidney disease with stage 1 through stage 4 chronic kidney disease, or unspecified chronic kidney disease; J44.9 Chronic obstructive pulmonary disease, unspecified; N18.3 Chronic kidney disease, stage 3 (moderate); K76.0 Fatty (change of) liver, not elsewhere classified; F41.9 Anxiety disorder, unspecified; F32.9 Major depressive disorder, single episode, unspecified; M06.9 Rheumatoid arthritis, unspecified; D64.9 Anemia, unspecified; I50.9 Heart failure, unspecified; E11.40 Type 2 diabetes mellitus with diabetic neuropathy, unspecified; J81.0 Acute pulmonary edema; Z79.4 Long term (current) use of insulin; Z79.82 Long term (current) use of aspirin; Z79.899 Other long term (current) drug therapy; Z88.8 Allergy status to other drugs, medicaments and biological substances; Z85.118 Personal history of other malignant neoplasm of bronchus and lung; Z87.820 Personal history of traumatic brain injury
CPT/HCPCS: J1569

== ENCOUNTER → 2017-10-28 | Outpatient (REF) | payer MEDICARE, MEDICAID ==
[2017-10-28 09:48] LABS: HEMATOCRIT 36.9 % (42.0-52.0); HEMOGLOBIN 11.4 g/dl (13.5-17.5); MEAN CORPUSCULAR HEMOGLOBIN 31.4 pg (27.0-33.0); MEAN CORPUSCULAR HGB CONC 30.9 g/dl (32.0-36.5); MEAN CORPUSCULAR VOLUME 101.7 fl (80.0-96.0); PLATELET COUNT, AUTOMATED 132 10^3/uL (150-450); RED BLOOD COUNT 3.63 10^6/uL (4.30-6.10); RED CELL DISTRIBUTION WIDTH 17.4 % (11.5-14.5); WHITE BLOOD COUNT 5.5 10^3/uL (4.0-10.0)
[2017-10-28 10:11] LABS: ANION GAP 12 MEQ/L (8-16); BLOOD UREA NITROGEN 30 MG/DL (7-18); CALCIUM LEVEL 8.8 MG/DL (8.8-10.2); CARBON DIOXIDE LEVEL 27 MEQ/L (21-32); CHLORIDE LEVEL 102 MEQ/L (98-107); CREATININE FOR GFR 1.54 MG/DL (0.70-1.30); GLOMERULAR FILTRATION RATE 48.5 (>49); GLUCOSE, FASTING 217 MG/DL (70-100); NT-PRO BNP 289 PG/ML (<125); POTASSIUM SERUM 3.9 MEQ/L (3.5-5.1); SODIUM LEVEL 141 MEQ/L (136-145)
== END ==
DX: R06.02 Shortness of breath (principal)
CPT/HCPCS: 80048

== ENCOUNTER 2017-10-29 10:43 | Outpatient (REF) | payer MEDICARE, MEDICAID ==
[2017-11-02 13:07] LABS: HEMATOCRIT 38.6 % (42.0-52.0); HEMOGLOBIN 12.2 g/dl (13.5-17.5); MEAN CORPUSCULAR HEMOGLOBIN 32.3 pg (27.0-33.0); MEAN CORPUSCULAR HGB CONC 31.6 g/dl (32.0-36.5); MEAN CORPUSCULAR VOLUME 102.1 fl (80.0-96.0); PLATELET COUNT, AUTOMATED 156 10^3/uL (150-450); RED BLOOD COUNT 3.78 10^6/uL (4.30-6.10); RED CELL DISTRIBUTION WIDTH 17.6 % (11.5-14.5); WHITE BLOOD COUNT 7.9 10^3/uL (4.0-10.0)
[2017-11-02 13:17] LABS: ADD MANUAL DIFFER YES; POS COUNT POS FLAG; POSITIVE MORPH POS FLAG
[2017-11-02 13:18] LABS: DIFF SLIDE NUMBER 25
[2017-11-02 13:35] LABS: IMMUNOGLOBULIN G 845 MG/DL (681-1648)
[2017-11-02 14:23] LABS: BANDS 4 % (< 11); LYMPHOCYTES 13 % (16-52); METAMYELOCYTES 1 % (0-0); MONOCYTES 5 % (0-8); MYELOCYTES 3 % (0-0); NEUTROPHILS 74 % (35-75); PLATELET ESTIMATE NORMAL (NORMAL)
[2017-11-02 14:25] LABS: ANISOCYTOSIS 2+; POLYCHROMASIA 1+
== END 2017-11-02 ==
DX: I48.91 Unspecified atrial fibrillation (principal); I50.9 Heart failure, unspecified; J96.20 Acute and chronic respiratory failure, unspecified whether with hypoxia or hypercapnia
CPT/HCPCS: 82784

== ENCOUNTER 2017-10-29 14:06 | Emergency (ER) | payer MEDICARE, MEDICAID ==
[2017-10-29] MEDS: IPRATROPIUM 0.5MG/ALBUTEROL 2.5MG INH SOL UD 3ML (DUONEB)(J7620) NEB ×3 (15:01→15:02)
[2017-10-29 15:18] LABS: ABG BASE EXCESS 3.6 (-2.0-2.0); ABG HCO3 28.4 MEQ/L (22.0-26.0); ABG O2 SATURATION 99.7 % (95.0-99.0); ABG PARTIAL PRESSURE CO2 43.7 mmHg (35.0-45.0); ABG PARTIAL PRESSURE O2 240.7 mmHg (75.0-100.0); ABG STANDARD HCO3 27.7 MEQ/L (22.0-26.0); ABG TOTAL CO2 29.7 MEQ/L (23.0-31.0)
[2017-10-29] MEDS: FUROSEMIDE 20 MG/2 ML VIAL (J1940) IV (15:45)
[2017-10-29 16:17] LABS: BASO % 0.3 % (0.0-1.0); EOS % 0.1 % (0.0-3.0); HEMATOCRIT 37.4 % (42.0-52.0); HEMOGLOBIN 11.6 g/dl (13.5-17.5); IMMATURE GRANULOCYTE % 2.1 % (0-3.0); LYMPH # 0.8 10^3/uL (1.5-4.5); LYMPH % 10.4 % (24.0-44.0); MEAN CORPUSCULAR HEMOGLOBIN 31.7 pg (27.0-33.0); MEAN CORPUSCULAR VOLUME 102.2 fl (80.0-96.0); MONO # 0.3 10^3/uL (0.0-0.8); MONO % 3.9 % (0.0-5.0); NEUTROPHILS # 6.4 10^3/uL (1.8-7.7); NEUTROPHILS % 83.2 % (36.0-66.0); PLATELET COUNT, AUTOMATED 135 10^3/uL (150-450); RED BLOOD COUNT 3.66 10^6/uL (4.30-6.10); RED CELL DISTRIBUTION WIDTH 17.5 % (11.5-14.5); WHITE BLOOD COUNT 7.7 10^3/uL (4.0-10.0)
[2017-10-29 16:30] LABS: INR 1.09; PROTHROMBIN TIME 14.2 SECONDS (12.1-14.4)
[2017-10-29 16:49] LABS: ALBUMIN 3.3 GM/DL (3.2-5.2); ALBUMIN/GLOBULIN RATIO 0.89 (1.00-1.93); ALKALINE PHOSPHATASE 63 U/L (45-117); ALT/SGPT 46 U/L (12-78); ANION GAP 8 MEQ/L (8-16); AST/SGOT 24 U/L (7-37); BILIRUBIN,DIRECT 0.1 MG/DL (0.0-0.2); BILIRUBIN,TOTAL 0.4 MG/DL (0.2-1.0); BLOOD UREA NITROGEN 24 MG/DL (7-18); CALCIUM LEVEL 8.6 MG/DL (8.8-10.2); CARBON DIOXIDE LEVEL 30 MEQ/L (21-32); CHLORIDE LEVEL 99 MEQ/L (98-107); CPK CREATINE PHOSPHOKINASE 50 U/L (39-308); CREATININE FOR GFR 1.51 MG/DL (0.70-1.30); GLOMERULAR FILTRATION RATE 49.6 (>49); GLUCOSE, FASTING 237 MG/DL (70-100); NT-PRO BNP 338 PG/ML (<125); POTASSIUM SERUM 4.7 MEQ/L (3.5-5.1); SODIUM LEVEL 137 MEQ/L (136-145); TROPONIN I < 0.02 NG/ML (< 0.10)
[2017-10-29 16:49] LABS: LACTIC ACID SEPSIS PROTOCOL 3.2 MMOL/L (0.4-2.0)
[2017-10-29] MEDS ORDERED: methylPREDNISolone INJ 40 MG/1 ML VIAL (J2920) IV (18:45)
== END 2017-10-29 19:51 | disposition home or self-care (01) ==
LOC: M ED 14:06
DX: J44.1 Chronic obstructive pulmonary disease with (acute) exacerbation (principal); I10 Essential (primary) hypertension; E11.9 Type 2 diabetes mellitus without complications; Z87.891 Personal history of nicotine dependence; Z88.3 Allergy status to other anti-infective agents; Z79.899 Other long term (current) drug therapy; Z79.01 Long term (current) use of anticoagulants; Z79.82 Long term (current) use of aspirin; Z79.4 Long term (current) use of insulin
CPT/HCPCS: J1940

== ENCOUNTER 2017-11-03 13:41 | Outpatient (CLI) | payer MEDICARE, MEDICAID ==
[2017-11-03] MEDS: ACETAMINOPHEN TAB 650MG DOSE (2X325MG) PO (14:22)
[2017-11-03] MEDS: diphenhydrAMINE 50 MG CAP PO (14:22)
[2017-11-03] MEDS: IMMUNE GLOBULIN 10% 10GM 100ML 10 GM in APPROPRIATE DILUENT 1 EA IV (14:23)
[2017-11-03] MEDS: IMMUNE GLOBULIN 10% 20GM 200ML 20 GM in APPROPRIATE DILUENT 1 EA IV (14:24)
== END 2017-11-03 16:30 | disposition home or self-care (01) ==
LOC: M INFU 13:41
DX: D80.1 Nonfamilial hypogammaglobulinemia (principal); D64.9 Anemia, unspecified

== ENCOUNTER 2017-11-04 09:05 | Inpatient (IN) | payer MEDICARE, MEDICAID ==
[2017-11-04] MEDS: TIOTROPIUM INHALER/CAPSULE (SPIRIVA) INH (08:00)
[2017-11-04 10:41] LABS: ABG BASE EXCESS 1.7 (-2.0-2.0); ABG O2 SATURATION 90.3 % (95.0-99.0); ABG PARTIAL PRESSURE O2 64.5 mmHg (75.0-100.0); ABG STANDARD HCO3 25.9 MEQ/L (22.0-26.0); ABG TOTAL CO2 29.5 MEQ/L (23.0-31.0); ABG pH (ARTERIAL) 7.357 UNITS (7.350-7.450)
[2017-11-04] MEDS: IPRATROPIUM 0.5MG/ALBUTEROL 2.5MG INH SOL UD 3ML (DUONEB)(J7620) NEB ×5 (10:41→20:00)
[2017-11-04 11:05] LABS: HEMATOCRIT 36.9 % (42.0-52.0); HEMOGLOBIN 11.6 g/dl (13.5-17.5); MEAN CORPUSCULAR HEMOGLOBIN 32.1 pg (27.0-33.0); MEAN CORPUSCULAR HGB CONC 31.4 g/dl (32.0-36.5); MEAN CORPUSCULAR VOLUME 102.2 fl (80.0-96.0); PLATELET COUNT, AUTOMATED 141 10^3/uL (150-450); RED BLOOD COUNT 3.61 10^6/uL (4.30-6.10); RED CELL DISTRIBUTION WIDTH 17.2 % (11.5-14.5); WHITE BLOOD COUNT 10.9 10^3/uL (4.0-10.0)
[2017-11-04 11:11] LABS: ADD MANUAL DIFFER YES; DIFF SLIDE NUMBER 217; POSITIVE MORPH POS FLAG
[2017-11-04 11:27] LABS: ANION GAP 10 MEQ/L (8-16); BLOOD UREA NITROGEN 37 MG/DL (7-18); CARBON DIOXIDE LEVEL 26 MEQ/L (21-32); CHLORIDE LEVEL 102 MEQ/L (98-107); CREATININE FOR GFR 1.63 MG/DL (0.70-1.30); GLOMERULAR FILTRATION RATE 45.4 (>49); GLUCOSE, FASTING 268 MG/DL (70-100); POTASSIUM SERUM 4.4 MEQ/L (3.5-5.1); SODIUM LEVEL 138 MEQ/L (136-145)
[2017-11-04 11:29] LABS: BANDS 2 % (< 11); LYMPHOCYTES 5 % (16-52); MONOCYTES 2 % (0-8); NEUTROPHILS 91 % (35-75); PLATELET ESTIMATE NORMAL (NORMAL)
[2017-11-04 11:30] LABS: ANISOCYTOSIS 2+
[2017-11-04 11:35] LABS: LACTIC ACID SEPSIS PROTOCOL 2.5 MMOL/L (0.4-2.0)
[2017-11-04] MEDS: cefTRIAXone SOD 2 GM in D5W MINI-BAG PLUS 50 ML IV (12:00)
[2017-11-04 12:32] LABS: C REACTIVE PROTEIN QUANTITATIV 7.39 MG/DL (0.00-0.30)
[2017-11-04] MEDS: AZITHROMYCIN INJ 500 MG, VIAL MATE ADAPTER 1 EACH in D5W 250 ML IV (12:42)
[2017-11-04] MEDS ORDERED: DEXTROSE 50% 50 ML SYRINGE IV (13:30)
[2017-11-04] MEDS ORDERED: GLUCAGON FOR INJ 1 MG VIAL (J1610) SC (13:30)
[2017-11-04] MEDS ORDERED: BISACODYL 10 MG SUPP PR (13:30)
[2017-11-04] MEDS ORDERED: IPRATROPIUM 0.5MG/ALBUTEROL 2.5MG INH SOL UD 3ML (DUONEB)(J7620) NEB (13:30)
[2017-11-04] MEDS ORDERED: GLUCOSE 4 GM CHEW TABLET PO (13:30)
[2017-11-04] MEDS ORDERED: ONDANSETRON 4MG/2ML VIAL (J2405) IV (13:45)
[2017-11-04] MEDS: SODIUM CHLORIDE HYPERTONIC 3% 15ML NEB SOL NEB (13:45)
[2017-11-04] MEDS ORDERED: PILL CRUSHER/CUTTER 1 EACH XX (14:30)
[2017-11-04 15:27] LABS: NT-PRO BNP 671 PG/ML (<125)
[2017-11-04] MEDS: VANCOMYCIN HCL 1,000 MG, VIAL MATE ADAPTER 1 EACH in D5W 250 ML IV ×2 (16:23→17:52)
[2017-11-04] MEDS: FUROSEMIDE 40 MG/4 ML VIAL (J1940) IV (16:23)
[2017-11-04] MEDS: methylPREDNISolone INJ 125 MG/2 ML VIAL (J2930) IV ×2 (16:23→23:46)
[2017-11-04] MEDS: GABAPENTIN 300 MG CAP PO ×2 (16:23→20:55)
[2017-11-04 16:32] LABS: BEDSIDE GLUCOSE 253 MG/DL (80-115)
[2017-11-04] MEDS: HumaLOG INSULIN (NovoLOG) PER UNIT SC ×2 (16:32→20:54)
[2017-11-04] MEDS ORDERED: SLF 3 ML SYR IV (16:45)
[2017-11-04 17:43] LABS: CPK CREATINE PHOSPHOKINASE 36 U/L (39-308); MB/CK RELATIVE INDEX 4.44 (< OR =4); TROPONIN I 0.03 NG/ML (< 0.10)
[2017-11-04] MEDS: LACTOBACILLUS ACIDOPHILUS CAP (BACID) PO (17:52)
[2017-11-04] MEDS: SODIUM CHLORIDE 0.9% 3ML NEB SOLUTION FOR INHALATION INH (20:00)
[2017-11-04 20:07] LABS: CPK CREATINE PHOSPHOKINASE 36 U/L (39-308); MB/CK RELATIVE INDEX 4.72 (< OR =4); TROPONIN I 0.03 NG/ML (< 0.10)
[2017-11-04] MEDS: ADVAIR HFA 230/21MCG INHALER INH (20:47)
[2017-11-04] MEDS: LEVEMIR (INSULIN DETEMIR) 1 UNITS/0.01ML SC (20:54)
[2017-11-04] MEDS: PANTOPRAZOLE 40MG TAB (PROTONIX) PO (20:55)
[2017-11-04] MEDS: rOPINIRole 2MG TAB PO (20:55)
[2017-11-04] MEDS: SERTRALINE HCL 50 MG TAB PO (20:55)
[2017-11-04] MEDS: SENOKOT S TAB PO (20:55)
[2017-11-04] MEDS: ZONISAMIDE 50 MG CAP (ZONEGRAN) PO (20:55)
[2017-11-04] MEDS: PRAVASTATIN 20 MG TAB PO (20:55)
[2017-11-04] MEDS: APIXABAN 5 MG TAB (ELIQUIS) PO (20:55)
[2017-11-04] MEDS: guaiFENesin ER 600 MG TAB PO (20:55)
[2017-11-04] MEDS: SLF 3 ML SYR IV (20:56)
[2017-11-04] MEDS: CEFEPIME HCL 1 GM in D5W MINI-BAG PLUS 50 ML IV (20:56)
[2017-11-04 21:01] LABS: BEDSIDE GLUCOSE 430 MG/DL (80-115)
[2017-11-05] MEDS: IPRATROPIUM 0.5MG/ALBUTEROL 2.5MG INH SOL UD 3ML (DUONEB)(J7620) NEB ×4 (02:00→20:00)
[2017-11-05] MEDS: VANCOMYCIN HCL 1,000 MG, VIAL MATE ADAPTER 1 EACH in D5W 250 ML IV ×2 (03:51→15:07)
[2017-11-05 06:14] LABS: HEMATOCRIT 35.4 % (42.0-52.0); HEMOGLOBIN 11.1 g/dl (13.5-17.5); MEAN CORPUSCULAR HEMOGLOBIN 31.6 pg (27.0-33.0); MEAN CORPUSCULAR HGB CONC 31.4 g/dl (32.0-36.5); MEAN CORPUSCULAR VOLUME 100.9 fl (80.0-96.0); PLATELET COUNT, AUTOMATED 143 10^3/uL (150-450); RED BLOOD COUNT 3.51 10^6/uL (4.30-6.10); RED CELL DISTRIBUTION WIDTH 17.1 % (11.5-14.5); WHITE BLOOD COUNT 11.6 10^3/uL (4.0-10.0)
[2017-11-05 06:51] LABS: ALBUMIN 2.9 GM/DL (3.2-5.2); ALBUMIN/GLOBULIN RATIO 0.64 (1.00-1.93); ALKALINE PHOSPHATASE 60 U/L (45-117); ALT/SGPT 39 U/L (12-78); ANION GAP 10 MEQ/L (8-16); AST/SGOT 13 U/L (7-37); BILIRUBIN,TOTAL 0.3 MG/DL (0.2-1.0); BLOOD UREA NITROGEN 41 MG/DL (7-18); CALCIUM LEVEL 9.2 MG/DL (8.8-10.2); CARBON DIOXIDE LEVEL 28 MEQ/L (21-32); CHLORIDE LEVEL 99 MEQ/L (98-107); GLOMERULAR FILTRATION RATE 43.3 (>49); GLUCOSE, FASTING 360 MG/DL (70-100); MAGNESIUM LEVEL 2.2 MG/DL (1.8-2.4); POTASSIUM SERUM 4.6 MEQ/L (3.5-5.1); SODIUM LEVEL 137 MEQ/L (136-145); TOTAL PROTEIN 7.4 GM/DL (6.4-8.2)
[2017-11-05] MEDS: methylPREDNISolone INJ 125 MG/2 ML VIAL (J2930) IV ×2 (07:00→18:08)
[2017-11-05] MEDS: CEFEPIME HCL 1 GM in D5W MINI-BAG PLUS 50 ML IV ×2 (07:16→18:08)
[2017-11-05] MEDS: SLF 3 ML SYR IV ×3 (07:17→21:20)
[2017-11-05] MEDS: HumaLOG INSULIN (NovoLOG) PER UNIT SC ×4 (07:30→20:36)
[2017-11-05] MEDS: TIOTROPIUM INHALER/CAPSULE (SPIRIVA) INH (07:37)
[2017-11-05] MEDS: ADVAIR HFA 230/21MCG INHALER INH ×2 (07:38→20:23)
[2017-11-05] MEDS: SODIUM CHLORIDE 0.9% 3ML NEB SOLUTION FOR INHALATION INH ×2 (08:00→20:00)
[2017-11-05] MEDS: FUROSEMIDE 40 MG/4 ML VIAL (J1940) IV ×2 (08:21→16:55)
[2017-11-05] MEDS: LACTOBACILLUS ACIDOPHILUS CAP (BACID) PO ×3 (08:22→16:54)
[2017-11-05] MEDS: ZONISAMIDE 50 MG CAP (ZONEGRAN) PO ×2 (08:22→20:36)
[2017-11-05] MEDS: FERROUS SULFATE 325MG TAB PO (08:22)
[2017-11-05] MEDS: ATENOLOL 25 MG TAB PO (08:22)
[2017-11-05] MEDS: CYANOCOBALAMIN 500 MCG TAB PO (08:22)
[2017-11-05] MEDS: GABAPENTIN 300 MG CAP PO ×3 (08:22→20:37)
[2017-11-05] MEDS: APIXABAN 5 MG TAB (ELIQUIS) PO ×2 (08:22→20:37)
[2017-11-05] MEDS: rOPINIRole 1MG TAB PO (08:22)
[2017-11-05] MEDS: SENOKOT S TAB PO ×2 (08:23→20:37)
[2017-11-05] MEDS: ALLOPURINOL 300 MG TAB PO (08:23)
[2017-11-05] MEDS: ASPIRIN 81 MG ENTERIC TAB PO (08:23)
[2017-11-05] MEDS: guaiFENesin ER 600 MG TAB PO ×2 (08:23→20:37)
[2017-11-05] MEDS: INFLUENZA VIRUS VACCINE HIGH DOSE 0.5 ML SYRINGE (90662) IM (08:24)
[2017-11-05 11:46] LABS: BEDSIDE GLUCOSE 321 MG/DL (80-115)
[2017-11-05 16:47] LABS: BEDSIDE GLUCOSE 429 MG/DL (80-115)
[2017-11-05] MEDS: EUCERIN 120GM CREAM TOP ×2 (16:56→21:00)
[2017-11-05 20:20] LABS: BEDSIDE GLUCOSE 405 MG/DL (80-115)
[2017-11-05] MEDS: LEVEMIR (INSULIN DETEMIR) 1 UNITS/0.01ML SC (20:35)
[2017-11-05] MEDS: rOPINIRole 2MG TAB PO (20:36)
[2017-11-05] MEDS: PANTOPRAZOLE 40MG TAB (PROTONIX) PO (20:37)
[2017-11-05] MEDS: SERTRALINE HCL 50 MG TAB PO (20:37)
[2017-11-05] MEDS: PRAVASTATIN 20 MG TAB PO (20:37)
[2017-11-06] MEDS: IPRATROPIUM 0.5MG/ALBUTEROL 2.5MG INH SOL UD 3ML (DUONEB)(J7620) NEB ×4 (01:04→20:00)
[2017-11-06] MEDS: ACETAMINOPHEN TAB 650MG DOSE (2X325MG) PO ×2 (01:15→20:51)
[2017-11-06] MEDS: VANCOMYCIN HCL 1,000 MG, VIAL MATE ADAPTER 1 EACH in D5W 250 ML IV (03:53)
[2017-11-06 06:49] LABS: HEMATOCRIT 32.8 % (42.0-52.0); HEMOGLOBIN 10.3 g/dl (13.5-17.5); MEAN CORPUSCULAR HGB CONC 31.4 g/dl (32.0-36.5); MEAN CORPUSCULAR VOLUME 101.9 fl (80.0-96.0); PLATELET COUNT, AUTOMATED 136 10^3/uL (150-450); RED BLOOD COUNT 3.22 10^6/uL (4.30-6.10); RED CELL DISTRIBUTION WIDTH 16.8 % (11.5-14.5); WHITE BLOOD COUNT 13.3 10^3/uL (4.0-10.0)
[2017-11-06] MEDS: methylPREDNISolone INJ 125 MG/2 ML VIAL (J2930) IV (07:00)
[2017-11-06 07:13] LABS: ALBUMIN 2.8 GM/DL (3.2-5.2); ALBUMIN/GLOBULIN RATIO 0.67 (1.00-1.93); ALKALINE PHOSPHATASE 95 U/L (45-117); ALT/SGPT 40 U/L (12-78); ANION GAP 10 MEQ/L (8-16); AST/SGOT 15 U/L (7-37); BILIRUBIN,TOTAL 0.2 MG/DL (0.2-1.0); BLOOD UREA NITROGEN 52 MG/DL (7-18); CALCIUM LEVEL 9.1 MG/DL (8.8-10.2); CARBON DIOXIDE LEVEL 27 MEQ/L (21-32); CHLORIDE LEVEL 99 MEQ/L (98-107); CREATININE FOR GFR 1.63 MG/DL (0.70-1.30); GLOMERULAR FILTRATION RATE 45.4 (>49); GLUCOSE, FASTING 403 MG/DL (70-100); MAGNESIUM LEVEL 2.3 MG/DL (1.8-2.4); POTASSIUM SERUM 4.2 MEQ/L (3.5-5.1); SODIUM LEVEL 136 MEQ/L (136-145)
[2017-11-06] MEDS: ADVAIR HFA 230/21MCG INHALER INH ×2 (07:59→20:31)
[2017-11-06] MEDS: TIOTROPIUM INHALER/CAPSULE (SPIRIVA) INH (07:59)
[2017-11-06] MEDS: SODIUM CHLORIDE 0.9% 3ML NEB SOLUTION FOR INHALATION INH ×2 (08:00→20:00)
[2017-11-06] MEDS: rOPINIRole 1MG TAB PO (08:34)
[2017-11-06] MEDS: guaiFENesin ER 600 MG TAB PO ×2 (08:34→20:47)
[2017-11-06] MEDS: HumaLOG INSULIN (NovoLOG) PER UNIT SC ×4 (08:34→20:49)
[2017-11-06] MEDS: APIXABAN 5 MG TAB (ELIQUIS) PO ×2 (08:34→20:46)
[2017-11-06] MEDS: FERROUS SULFATE 325MG TAB PO (08:34)
[2017-11-06] MEDS: ALLOPURINOL 300 MG TAB PO (08:34)
[2017-11-06] MEDS: GABAPENTIN 300 MG CAP PO ×3 (08:34→20:46)
[2017-11-06] MEDS: CEFEPIME HCL 1 GM in D5W MINI-BAG PLUS 50 ML IV (08:35)
[2017-11-06] MEDS: CYANOCOBALAMIN 500 MCG TAB PO (08:35)
[2017-11-06] MEDS: ASPIRIN 81 MG ENTERIC TAB PO (08:35)
[2017-11-06] MEDS: LACTOBACILLUS ACIDOPHILUS CAP (BACID) PO ×3 (08:35→17:12)
[2017-11-06] MEDS: SENOKOT S TAB PO ×2 (08:35→20:47)
[2017-11-06] MEDS: ATENOLOL 25 MG TAB PO (08:38)
[2017-11-06] MEDS: EUCERIN 120GM CREAM TOP ×3 (08:39→20:56)
[2017-11-06] MEDS: FUROSEMIDE 40 MG/4 ML VIAL (J1940) IV (08:39)
[2017-11-06] MEDS: SLF 3 ML SYR IV ×3 (08:50→20:56)
[2017-11-06] MEDS: ZONISAMIDE 50 MG CAP (ZONEGRAN) PO ×2 (08:50→20:46)
[2017-11-06] MEDS: LINEZOLID 600MG TABLET (ZYVOX) PO ×2 (12:24→20:47)
[2017-11-06] MEDS: FUROSEMIDE 40 MG TAB PO (17:13)
[2017-11-06] MEDS: rOPINIRole 2MG TAB PO (20:46)
[2017-11-06] MEDS: SERTRALINE HCL 50 MG TAB PO (20:46)
[2017-11-06] MEDS: PANTOPRAZOLE 40MG TAB (PROTONIX) PO (20:46)
[2017-11-06] MEDS: PRAVASTATIN 20 MG TAB PO (20:47)
[2017-11-06] MEDS: predniSONE 20 MG TAB PO (20:47)
[2017-11-06] MEDS: LEVEMIR (INSULIN DETEMIR) 1 UNITS/0.01ML SC (20:48)
[2017-11-07] MEDS: IPRATROPIUM 0.5MG/ALBUTEROL 2.5MG INH SOL UD 3ML (DUONEB)(J7620) NEB ×4 (01:39→20:00)
[2017-11-07] MEDS: ACETAMINOPHEN TAB 650MG DOSE (2X325MG) PO ×3 (03:12→20:10)
[2017-11-07 06:06] LABS: HEMATOCRIT 32.9 % (42.0-52.0); HEMOGLOBIN 10.6 g/dl (13.5-17.5); MEAN CORPUSCULAR HEMOGLOBIN 32.3 pg (27.0-33.0); MEAN CORPUSCULAR HGB CONC 32.2 g/dl (32.0-36.5); MEAN CORPUSCULAR VOLUME 100.3 fl (80.0-96.0); PLATELET COUNT, AUTOMATED 138 10^3/uL (150-450); RED BLOOD COUNT 3.28 10^6/uL (4.30-6.10); RED CELL DISTRIBUTION WIDTH 16.8 % (11.5-14.5); WHITE BLOOD COUNT 11.4 10^3/uL (4.0-10.0)
[2017-11-07] MEDS: SLF 3 ML SYR IV ×3 (06:07→20:07)
[2017-11-07 06:32] LABS: ALBUMIN 2.9 GM/DL (3.2-5.2); ALBUMIN/GLOBULIN RATIO 0.71 (1.00-1.93); ALKALINE PHOSPHATASE 99 U/L (45-117); ALT/SGPT 70 U/L (12-78); ANION GAP 11 MEQ/L (8-16); AST/SGOT 38 U/L (7-37); BILIRUBIN,TOTAL 0.3 MG/DL (0.2-1.0); BLOOD UREA NITROGEN 50 MG/DL (7-18); C REACTIVE PROTEIN QUANTITATIV 5.54 MG/DL (0.00-0.30); CALCIUM LEVEL 9.2 MG/DL (8.8-10.2); CARBON DIOXIDE LEVEL 27 MEQ/L (21-32); CHLORIDE LEVEL 96 MEQ/L (98-107); CREATININE FOR GFR 1.45 MG/DL (0.70-1.30); GLUCOSE, FASTING 361 MG/DL (70-100); MAGNESIUM LEVEL 2.2 MG/DL (1.8-2.4); POTASSIUM SERUM 4.4 MEQ/L (3.5-5.1); SODIUM LEVEL 134 MEQ/L (136-145)
[2017-11-07] MEDS: SODIUM CHLORIDE 0.9% 3ML NEB SOLUTION FOR INHALATION INH (08:00)
[2017-11-07] MEDS: TIOTROPIUM INHALER/CAPSULE (SPIRIVA) INH (08:24)
[2017-11-07] MEDS: ADVAIR HFA 230/21MCG INHALER INH ×2 (08:25→20:51)
[2017-11-07] MEDS: HumaLOG INSULIN (NovoLOG) PER UNIT SC ×4 (09:26→20:06)
[2017-11-07] MEDS: GABAPENTIN 300 MG CAP PO ×3 (09:27→20:07)
[2017-11-07] MEDS: CYANOCOBALAMIN 500 MCG TAB PO (09:27)
[2017-11-07] MEDS: guaiFENesin ER 600 MG TAB PO ×2 (09:27→20:08)
[2017-11-07] MEDS: FUROSEMIDE 40 MG TAB PO ×2 (09:27→16:14)
[2017-11-07] MEDS: predniSONE 20 MG TAB PO (09:27)
[2017-11-07] MEDS: LINEZOLID 600MG TABLET (ZYVOX) PO ×2 (09:27→20:08)
[2017-11-07] MEDS: ALLOPURINOL 300 MG TAB PO (09:27)
[2017-11-07] MEDS: rOPINIRole 1MG TAB PO (09:27)
[2017-11-07] MEDS: LACTOBACILLUS ACIDOPHILUS CAP (BACID) PO ×3 (09:27→17:01)
[2017-11-07] MEDS: APIXABAN 5 MG TAB (ELIQUIS) PO ×2 (09:27→20:08)
[2017-11-07] MEDS: SENOKOT S TAB PO ×2 (09:27→20:08)
[2017-11-07] MEDS: ZONISAMIDE 50 MG CAP (ZONEGRAN) PO ×2 (09:27→21:16)
[2017-11-07] MEDS: ASPIRIN 81 MG ENTERIC TAB PO (09:27)
[2017-11-07] MEDS: FERROUS SULFATE 325MG TAB PO (09:27)
[2017-11-07] MEDS: EUCERIN 120GM CREAM TOP ×3 (09:29→20:06)
[2017-11-07] MEDS: ATENOLOL 25 MG TAB PO (09:29)
[2017-11-07 11:44] LABS: BEDSIDE GLUCOSE 395 MG/DL (80-115)
[2017-11-07 11:44] LABS: BEDSIDE GLUCOSE 389 MG/DL (80-115)
[2017-11-07 11:44] LABS: BEDSIDE GLUCOSE 336 MG/DL (80-115)
[2017-11-07 11:44] LABS: BEDSIDE GLUCOSE 391 MG/DL (80-115)
[2017-11-07 16:49] LABS: BEDSIDE GLUCOSE 452 MG/DL (80-115)
[2017-11-07 19:52] LABS: BEDSIDE GLUCOSE 509 MG/DL (80-115)
[2017-11-07] MEDS: rOPINIRole 2MG TAB PO (20:06)
[2017-11-07] MEDS: LEVEMIR (INSULIN DETEMIR) 1 UNITS/0.01ML SC (20:06)
[2017-11-07] MEDS: PRAVASTATIN 20 MG TAB PO (20:07)
[2017-11-07] MEDS: PANTOPRAZOLE 40MG TAB (PROTONIX) PO (20:08)
[2017-11-07] MEDS: SERTRALINE HCL 50 MG TAB PO (20:08)
[2017-11-07 20:56] LABS: BEDSIDE GLUCOSE 483 MG/DL (80-115)
[2017-11-07 20:59] LABS: BEDSIDE GLUCOSE 440 MG/DL (80-115)
[2017-11-08] MEDS: ACETAMINOPHEN TAB 650MG DOSE (2X325MG) PO (02:02)
[2017-11-08] MEDS: IPRATROPIUM 0.5MG/ALBUTEROL 2.5MG INH SOL UD 3ML (DUONEB)(J7620) NEB (02:07)
[2017-11-08] MEDS: SLF 3 ML SYR IV (05:38)
[2017-11-08 06:41] LABS: HEMATOCRIT 34.2 % (42.0-52.0); MEAN CORPUSCULAR HEMOGLOBIN 31.9 pg (27.0-33.0); MEAN CORPUSCULAR HGB CONC 32.2 g/dl (32.0-36.5); MEAN CORPUSCULAR VOLUME 99.1 fl (80.0-96.0); PLATELET COUNT, AUTOMATED 138 10^3/uL (150-450); RED BLOOD COUNT 3.45 10^6/uL (4.30-6.10); RED CELL DISTRIBUTION WIDTH 16.8 % (11.5-14.5); WHITE BLOOD COUNT 9.3 10^3/uL (4.0-10.0)
[2017-11-08 07:02] LABS: ALBUMIN 2.9 GM/DL (3.2-5.2); ALBUMIN/GLOBULIN RATIO 0.69 (1.00-1.93); ALKALINE PHOSPHATASE 84 U/L (45-117); ALT/SGPT 69 U/L (12-78); ANION GAP 9 MEQ/L (8-16); AST/SGOT 29 U/L (7-37); BILIRUBIN,TOTAL 0.4 MG/DL (0.2-1.0); BLOOD UREA NITROGEN 44 MG/DL (7-18); C REACTIVE PROTEIN QUANTITATIV 3.09 MG/DL (0.00-0.30); CALCIUM LEVEL 8.5 MG/DL (8.8-10.2); CARBON DIOXIDE LEVEL 30 MEQ/L (21-32); CHLORIDE LEVEL 96 MEQ/L (98-107); CREATININE FOR GFR 1.31 MG/DL (0.70-1.30); GLOMERULAR FILTRATION RATE 58.5 (>49); GLUCOSE, FASTING 216 MG/DL (70-100); MAGNESIUM LEVEL 2.1 MG/DL (1.8-2.4); POTASSIUM SERUM 3.7 MEQ/L (3.5-5.1); SODIUM LEVEL 135 MEQ/L (136-145); TOTAL PROTEIN 7.1 GM/DL (6.4-8.2)
[2017-11-08] MEDS: ZONISAMIDE 50 MG CAP (ZONEGRAN) PO (08:15)
[2017-11-08] MEDS: LACTOBACILLUS ACIDOPHILUS CAP (BACID) PO (08:16)
[2017-11-08] MEDS: predniSONE 20 MG TAB PO (08:16)
[2017-11-08] MEDS: rOPINIRole 1MG TAB PO (08:16)
[2017-11-08] MEDS: SENOKOT S TAB PO (08:17)
[2017-11-08] MEDS: LINEZOLID 600MG TABLET (ZYVOX) PO (08:17)
[2017-11-08] MEDS: APIXABAN 5 MG TAB (ELIQUIS) PO (08:17)
[2017-11-08] MEDS: FUROSEMIDE 40 MG TAB PO (08:17)
[2017-11-08] MEDS: ASPIRIN 81 MG ENTERIC TAB PO (08:17)
[2017-11-08] MEDS: guaiFENesin ER 600 MG TAB PO (08:17)
[2017-11-08] MEDS: CYANOCOBALAMIN 500 MCG TAB PO (08:17)
[2017-11-08] MEDS: ALLOPURINOL 300 MG TAB PO (08:17)
[2017-11-08] MEDS: GABAPENTIN 300 MG CAP PO (08:17)
[2017-11-08] MEDS: FERROUS SULFATE 325MG TAB PO (08:17)
[2017-11-08] MEDS: ATENOLOL 25 MG TAB PO (08:18)
[2017-11-08] MEDS: HumaLOG INSULIN (NovoLOG) PER UNIT SC (08:19)
[2017-11-08] MEDS: TIOTROPIUM INHALER/CAPSULE (SPIRIVA) INH (08:58)
[2017-11-08] MEDS: ADVAIR HFA 230/21MCG INHALER INH (08:59)
== END 2017-11-08 11:40 | DRG 177 ==
LOC: M MSPAV 11-05 20:48 → M ED 09:05 → M ED INP 13:38 → M PCU 15:53
DX: J15.212 Pneumonia due to Methicillin resistant Staphylococcus aureus (principal); I50.33 Acute on chronic diastolic (congestive) heart failure; J44.0 Chronic obstructive pulmonary disease with (acute) lower respiratory infection; J44.1 Chronic obstructive pulmonary disease with (acute) exacerbation; E27.40 Unspecified adrenocortical insufficiency; J96.11 Chronic respiratory failure with hypoxia; E87.2 Acidosis; G47.33 Obstructive sleep apnea (adult) (pediatric); E78.5 Hyperlipidemia, unspecified; Z66 Do not resuscitate; N18.3 Chronic kidney disease, stage 3 (moderate); E11.22 Type 2 diabetes mellitus with diabetic chronic kidney disease; I48.0 Paroxysmal atrial fibrillation; G25.81 Restless legs syndrome; E66.01 Morbid (severe) obesity due to excess calories; E11.40 Type 2 diabetes mellitus with diabetic neuropathy, unspecified; E11.621 Type 2 diabetes mellitus with foot ulcer; L97.519 Non-pressure chronic ulcer of other part of right foot with unspecified severity; M10.9 Gout, unspecified; L97.529 Non-pressure chronic ulcer of other part of left foot with unspecified severity; D53.9 Nutritional anemia, unspecified; Z85.118 Personal history of other malignant neoplasm of bronchus and lung; Z90.2 Acquired absence of lung [part of]; Z92.3 Personal history of irradiation; Z99.81 Dependence on supplemental oxygen; Z90.5 Acquired absence of kidney; Z90.49 Acquired absence of other specified parts of digestive tract; Z87.891 Personal history of nicotine dependence; Z88.8 Allergy status to other drugs, medicaments and biological substances; Z79.01 Long term (current) use of anticoagulants; Z79.82 Long term (current) use of aspirin; Z79.4 Long term (current) use of insulin; Z79.899 Other long term (current) drug therapy; Z68.39 Body mass index [BMI] 39.0-39.9, adult

== ENCOUNTER → 2017-11-10 | Outpatient (REF) | payer MEDICARE, MEDICAID ==
[2017-11-10 10:26] LABS: HEMATOCRIT 36.5 % (42.0-52.0); HEMOGLOBIN 11.7 g/dl (13.5-17.5); MEAN CORPUSCULAR HEMOGLOBIN 32.2 pg (27.0-33.0); MEAN CORPUSCULAR HGB CONC 32.1 g/dl (32.0-36.5); MEAN CORPUSCULAR VOLUME 100.6 fl (80.0-96.0); PLATELET COUNT, AUTOMATED 143 10^3/uL (150-450); RED BLOOD COUNT 3.63 10^6/uL (4.30-6.10); RED CELL DISTRIBUTION WIDTH 16.6 % (11.5-14.5); WHITE BLOOD COUNT 10.4 10^3/uL (4.0-10.0)
[2017-11-10 11:05] LABS: ANION GAP 9 MEQ/L (8-16); BLOOD UREA NITROGEN 45 MG/DL (7-18); CALCIUM LEVEL 8.6 MG/DL (8.8-10.2); CARBON DIOXIDE LEVEL 30 MEQ/L (21-32); CHLORIDE LEVEL 98 MEQ/L (98-107); CREATININE FOR GFR 1.51 MG/DL (0.70-1.30); GLOMERULAR FILTRATION RATE 49.6 (>49); GLUCOSE, FASTING 281 MG/DL (70-100); NT-PRO BNP 418 PG/ML (<125); POTASSIUM SERUM 4.1 MEQ/L (3.5-5.1); SODIUM LEVEL 137 MEQ/L (136-145)
== END ==
DX: E11.9 Type 2 diabetes mellitus without complications (principal)
CPT/HCPCS: 80048

== ENCOUNTER → 2017-11-13 | Outpatient (REF) ==
[~2017-11-13] MED LIST changes: -ACET50TAOT PO; -ALBU17IN INH; -ALBU83IN INH; -ALLO100T PO; -AMMO12CR4 TOP; -ASPI81TA21 PO; -ASPI81TA85 PO; -ASPI81TAEC PO; -AVEL1TAB3 PO; -BACT800T5 PO; -BREO1INH3 INH; -CARV12.5 PO; -CARV25TA PO; -CARV6.25 PO; -CENTTAB PO; -CENTTAB16 PO; -CORE12.5 PO; -CYCL10TA PO; -DIGO0.12 PO; -DOXY-278 PO; -DOXY100C PO; -ELIQ5TAB PO; -FERR1TAB8 PO; -FERR325T3 PO; -FIBE625T22 PO; -FURO20TA2 PO; -Fiber PO; -GABA-279 PO; -GABA-282 PO; -GABA600T PO; -HYDR50TA70 PO; -INSUDET SC; -IPRA2IN INH; -IPRASOL4 INH; -IRON65TA PO; -KETO10TAB PO; -LEVA1TAB2 PO; -LEVA750T7 PO; -LEVE1INJ5 SC; -LEVO750T13 PO; +LIDOCAINE 2% MDV 20 ML VIAL As Ordered; -LINE600T PO; -LINE60TAB PO; -LISI-538 PO; -MAGN400C2 PO; -MAGN400T PO; -MAGN400T5 PO; -META0.52 PO; -MOXI1TAB PO; -NEUR300C PO; -NYST50SS SS; -OMEP10CASR PO; -OMEP20CA3 PO; -OXYC1TAB23 PO; -PERCOCET PO; -PRAV20TA2 PO; -PRAV40TA2 PO; -PRED10TA2 PO; -PRED20TA PO; -PRIL20CA9 PO; -REQU2TAB3 PO; -RISATAB3 PO; -ROPI1TAB PO; -ROPI2TAB PO; -SERT25TA PO; -SERT25TA88 PO; -SPIR12.9 INH; -TIOT18INH INH; -TRAM1CAP16 PO; -TRAM50TA2 PO; -VITA-193 PO; -VITA500T3 PO; -VITMTA PO; -ZONI50CA PO; -ZONI50CA3 PO; -ZYLO300T4 PO; +ceFAZolin 1GM INJ (J0690 PER 500MG) As Ordered
== END ==
LOC: M IRPRO 08:16
DX: Z00.00 Encounter for general adult medical examination without abnormal findings (principal)

== ENCOUNTER 2017-11-16 02:42 | Inpatient (IN) | payer MEDICARE, MEDICAID ==
[2017-11-16] MEDS ORDERED: IPRATROPIUM 0.5MG/ALBUTEROL 2.5MG INH SOL UD 3ML (DUONEB)(J7620) NEB (03:15)
[2017-11-16 03:24] LABS: ABG BASE EXCESS 2.7 (-2.0-2.0); ABG O2 SATURATION 97.7 % (95.0-99.0); ABG PARTIAL PRESSURE CO2 52.4 mmHg (35.0-45.0); ABG PARTIAL PRESSURE O2 102.2 mmHg (75.0-100.0); ABG STANDARD HCO3 26.9 MEQ/L (22.0-26.0); ABG TOTAL CO2 30.6 MEQ/L (23.0-31.0); ABG pH (ARTERIAL) 7.361 UNITS (7.350-7.450)
[2017-11-16] MEDS: dexameTHASONE 20 MG/5 ML VIAL (J1100) IV (03:34)
[2017-11-16] MEDS: FUROSEMIDE 100 MG/10 ML VIAL (J1940) IV (03:38)
[2017-11-16 03:52] LABS: BASO % 0.3 % (0.0-1.0); EOS % 0.1 % (0.0-3.0); HEMATOCRIT 36.5 % (42.0-52.0); HEMOGLOBIN 11.3 g/dl (13.5-17.5); IMMATURE GRANULOCYTE % 2.1 % (0-3.0); LYMPH # 1.3 10^3/uL (1.5-4.5); LYMPH % 10.2 % (24.0-44.0); MEAN CORPUSCULAR VOLUME 103.4 fl (80.0-96.0); MONO # 0.4 10^3/uL (0.0-0.8); MONO % 3.2 % (0.0-5.0); NEUTROPHILS # 10.6 10^3/uL (1.8-7.7); NEUTROPHILS % 84.1 % (36.0-66.0); PLATELET COUNT, AUTOMATED 148 10^3/uL (150-450); RED BLOOD COUNT 3.53 10^6/uL (4.30-6.10); RED CELL DISTRIBUTION WIDTH 17.5 % (11.5-14.5); WHITE BLOOD COUNT 12.6 10^3/uL (4.0-10.0)
[2017-11-16 04:27] LABS: APPEARANCE, URINE CLEAR (CLEAR); BACTERIA, URINE AUTO NEGATIVE (NEGATIVE); BILIRUBIN, URINE AUTO NEGATIVE (NEGATIVE); BLOOD, URINE BLOOD NEGATIVE (NEGATIVE); COLOR, URINE YELLOW (YELLOW); GLUCOSE, URINE (UA) AUTO NEGATIVE (NEGATIVE); KETONE, URINE AUTO NEGATIVE (NEGATIVE); LEUKOCYTE ESTERASE, URINE AUTO NEGATIVE (NEGATIVE); NITRITE, URINE AUTO NEGATIVE (NEGATIVE); PROTEIN, URINE AUTO 2+ mg/dL (NEGATIVE); RBC, URINE AUTO 2 /HPF (0-3); SPECIFIC GRAVITY URINE AUTO 1.013 (1.002-1.035); SQUAMOUS EPITHELIAL CELL UR AU 0 /HPF (0-6); UROBILINOGEN, URINE AUTO 0.2 mg/dL (0.0-2.0); WBC, URINE AUTO 2 /HPF (0-3)
[2017-11-16] MEDS ORDERED: GLUCAGON FOR INJ 1 MG VIAL (J1610) SC (04:45)
[2017-11-16] MEDS ORDERED: GLUCOSE 4 GM CHEW TABLET PO (04:45)
[2017-11-16] MEDS ORDERED: DEXTROSE 50% 50 ML SYRINGE IV (04:45)
[2017-11-16 04:48] LABS: ANION GAP 11 MEQ/L (8-16); BLOOD UREA NITROGEN 35 MG/DL (7-18); CALCIUM LEVEL 8.7 MG/DL (8.8-10.2); CARBON DIOXIDE LEVEL 28 MEQ/L (21-32); CHLORIDE LEVEL 104 MEQ/L (98-107); CPK CREATINE PHOSPHOKINASE 72 U/L (39-308); CREATININE FOR GFR 1.44 MG/DL (0.70-1.30); GLOMERULAR FILTRATION RATE 52.4 (>49); GLUCOSE, FASTING 195 MG/DL (70-100); MB/CK RELATIVE INDEX 3.06 (< OR =4); NT-PRO BNP 545 PG/ML (<125); POTASSIUM SERUM 4.1 MEQ/L (3.5-5.1); SODIUM LEVEL 143 MEQ/L (136-145); TROPONIN I 0.04 NG/ML (< 0.10)
[2017-11-16] MEDS: PIPERACILLIN/TAZOBACTAM SOD 3.375 GM in D5W MINI-BAG PLUS 50 ML IV ×3 (06:00→21:52)
[2017-11-16] MEDS ORDERED: MOM 30ML SUSPENSION UDC PO (06:30)
[2017-11-16] MEDS ORDERED: BISACODYL 10 MG SUPP PR (06:30)
[2017-11-16] MEDS ORDERED: PILL CRUSHER/CUTTER 1 EACH XX (06:45)
[2017-11-16] MEDS: VANCOMYCIN HCL 1,000 MG, VIAL MATE ADAPTER 1 EACH in D5W 250 ML IV ×3 (07:32→23:17)
[2017-11-16 07:56] LABS: BEDSIDE GLUCOSE 336 MG/DL (80-115)
[2017-11-16] MEDS: IPRATROPIUM 0.5MG/ALBUTEROL 2.5MG INH SOL UD 3ML (DUONEB)(J7620) NEB ×5 (08:00→19:45)
[2017-11-16] MEDS: HumaLOG INSULIN (NovoLOG) PER UNIT SC ×4 (08:03→21:00)
[2017-11-16] MEDS: LACTOBACILLUS ACIDOPHILUS CAP (BACID) PO ×3 (08:04→18:12)
[2017-11-16] MEDS: APIXABAN 5 MG TAB (ELIQUIS) PO ×2 (08:04→18:13)
[2017-11-16] MEDS: POTASSIUM CHLORIDE 10 MEQ SR TABLET PO (09:00)
[2017-11-16] MEDS: ALLOPURINOL 300 MG TAB PO (09:00)
[2017-11-16] MEDS: methylPREDNISolone INJ 40 MG/1 ML VIAL (J2920) IV ×2 (09:00→18:12)
[2017-11-16] MEDS: ASPIRIN 81 MG ENTERIC TAB PO (09:00)
[2017-11-16] MEDS: guaiFENesin ER 600 MG TAB PO ×2 (09:00→21:52)
[2017-11-16] MEDS: FUROSEMIDE 40 MG TAB PO ×2 (09:00→21:52)
[2017-11-16] MEDS: ACETAMINOPHEN 500 MG TAB PO ×3 (09:00→21:51)
[2017-11-16] MEDS: CYANOCOBALAMIN 500 MCG TAB PO (09:00)
[2017-11-16] MEDS: ATENOLOL 25 MG TAB PO (09:00)
[2017-11-16] MEDS: rOPINIRole 1MG TAB PO ×2 (09:00→21:51)
[2017-11-16] MEDS: GABAPENTIN 300 MG CAP PO ×3 (09:00→21:52)
[2017-11-16 12:14] LABS: BEDSIDE GLUCOSE 347 MG/DL (80-115)
[2017-11-16 18:22] LABS: BEDSIDE GLUCOSE 412 MG/DL (80-115)
[2017-11-16 20:43] LABS: BEDSIDE GLUCOSE 330 MG/DL (80-115)
[2017-11-16] MEDS: PRAVASTATIN 20 MG TAB PO (21:51)
[2017-11-16] MEDS: PANTOPRAZOLE 40MG TAB (PROTONIX) PO (21:51)
[2017-11-16] MEDS: SERTRALINE HCL 50 MG TAB PO (21:51)
[2017-11-17] MEDS: methylPREDNISolone INJ 40 MG/1 ML VIAL (J2920) IV ×3 (01:07→18:15)
[2017-11-17] MEDS: PIPERACILLIN/TAZOBACTAM SOD 3.375 GM in D5W MINI-BAG PLUS 50 ML IV ×3 (06:07→22:21)
[2017-11-17 06:12] LABS: BASO % 0.1 % (0.0-1.0); EOS % 0.1 % (0.0-3.0); HEMATOCRIT 33.9 % (42.0-52.0); HEMOGLOBIN 10.7 g/dl (13.5-17.5); IMMATURE GRANULOCYTE % 2.5 % (0-3.0); LYMPH # 0.7 10^3/uL (1.5-4.5); LYMPH % 4.1 % (24.0-44.0); MEAN CORPUSCULAR HEMOGLOBIN 31.8 pg (27.0-33.0); MEAN CORPUSCULAR HGB CONC 31.6 g/dl (32.0-36.5); MEAN CORPUSCULAR VOLUME 100.6 fl (80.0-96.0); MONO # 0.3 10^3/uL (0.0-0.8); MONO % 1.6 % (0.0-5.0); NEUTROPHILS # 15.4 10^3/uL (1.8-7.7); NEUTROPHILS % 91.6 % (36.0-66.0); PLATELET COUNT, AUTOMATED 163 10^3/uL (150-450); RED BLOOD COUNT 3.37 10^6/uL (4.30-6.10); WHITE BLOOD COUNT 16.8 10^3/uL (4.0-10.0)
[2017-11-17 06:50] LABS: ANION GAP 10 MEQ/L (8-16); BLOOD UREA NITROGEN 45 MG/DL (7-18); CALCIUM LEVEL 8.9 MG/DL (8.8-10.2); CARBON DIOXIDE LEVEL 29 MEQ/L (21-32); CHLORIDE LEVEL 95 MEQ/L (98-107); CREATININE FOR GFR 1.68 MG/DL (0.70-1.30); GLOMERULAR FILTRATION RATE 43.9 (>49); GLUCOSE, FASTING 351 MG/DL (70-100); POTASSIUM SERUM 4.4 MEQ/L (3.5-5.1); SODIUM LEVEL 134 MEQ/L (136-145)
[2017-11-17] MEDS: HumaLOG INSULIN (NovoLOG) PER UNIT SC ×4 (07:30→21:00)
[2017-11-17] MEDS: IPRATROPIUM 0.5MG/ALBUTEROL 2.5MG INH SOL UD 3ML (DUONEB)(J7620) NEB ×4 (07:34→19:33)
[2017-11-17] MEDS: LACTOBACILLUS ACIDOPHILUS CAP (BACID) PO ×3 (08:00→18:16)
[2017-11-17] MEDS ORDERED: FUROSEMIDE 40 MG/4 ML VIAL (J1940) As Ordered (09:17)
[2017-11-17] MEDS: FUROSEMIDE 40 MG/4 ML VIAL (J1940) IV (09:30)
[2017-11-17] MEDS ORDERED: NITROGLYCERIN 0.4 MG SUBL TABLET As Ordered (09:36)
[2017-11-17] MEDS: NITROGLYCERIN 0.3 MG SUBL TAB SL (09:36)
[2017-11-17] MEDS ORDERED: FUROSEMIDE 20 MG/2 ML VIAL (J1940) As Ordered (09:38)
[2017-11-17] MEDS: FUROSEMIDE 20 MG/2 ML VIAL (J1940) IV (09:41)
[2017-11-17 09:42] LABS: ABG BASE EXCESS 3.4 (-2.0-2.0); ABG HCO3 28.5 MEQ/L (22.0-26.0); ABG O2 SATURATION 88.4 % (95.0-99.0); ABG PARTIAL PRESSURE CO2 45.4 mmHg (35.0-45.0); ABG STANDARD HCO3 27.3 MEQ/L (22.0-26.0); ABG TOTAL CO2 29.9 MEQ/L (23.0-31.0); ABG pH (ARTERIAL) 7.415 UNITS (7.350-7.450)
[2017-11-17 10:24] LABS: CPK CREATINE PHOSPHOKINASE 27 U/L (39-308); MB/CK RELATIVE INDEX 8.15 (< OR =4); TROPONIN I 0.03 NG/ML (< 0.10)
[2017-11-17] MEDS: POTASSIUM CHLORIDE 10 MEQ SR TABLET PO (11:31)
[2017-11-17] MEDS: GABAPENTIN 300 MG CAP PO ×3 (11:31→22:18)
[2017-11-17] MEDS: rOPINIRole 1MG TAB PO ×2 (11:31→22:18)
[2017-11-17] MEDS: ASPIRIN 81 MG ENTERIC TAB PO (11:32)
[2017-11-17] MEDS: ALLOPURINOL 300 MG TAB PO (11:32)
[2017-11-17] MEDS: guaiFENesin ER 600 MG TAB PO ×2 (11:33→22:18)
[2017-11-17] MEDS: APIXABAN 5 MG TAB (ELIQUIS) PO ×2 (11:33→18:18)
[2017-11-17] MEDS: ACETAMINOPHEN 500 MG TAB PO ×3 (11:33→22:20)
[2017-11-17] MEDS: CYANOCOBALAMIN 500 MCG TAB PO (11:36)
[2017-11-17] MEDS: ATENOLOL 25 MG TAB PO (11:36)
[2017-11-17] MEDS: VANCOMYCIN HCL 1,000 MG, VIAL MATE ADAPTER 1 EACH in D5W 250 ML IV ×2 (11:37→23:33)
[2017-11-17 11:43] LABS: ABG BASE EXCESS -0.7 (-2.0-2.0); ABG HCO3 23.7 MEQ/L (22.0-26.0); ABG O2 SATURATION 92.8 % (95.0-99.0); ABG PARTIAL PRESSURE CO2 38.3 mmHg (35.0-45.0); ABG PARTIAL PRESSURE O2 64.3 mmHg (75.0-100.0); ABG STANDARD HCO3 23.8 MEQ/L (22.0-26.0); ABG TOTAL CO2 24.9 MEQ/L (23.0-31.0)
[2017-11-17 12:03] LABS: BEDSIDE GLUCOSE 494 MG/DL (80-115)
[2017-11-17 17:21] LABS: BEDSIDE GLUCOSE 428 MG/DL (80-115)
[2017-11-17] MEDS: FUROSEMIDE 100 MG/10 ML VIAL (J1940) IV (18:15)
[2017-11-17 20:14] LABS: BEDSIDE GLUCOSE 436 MG/DL (80-115)
[2017-11-17 22:07] LABS: VANCOMYCIN LEVEL TROUGH 11.2 UG/ML (10.0-20.0)
[2017-11-17] MEDS: SERTRALINE HCL 50 MG TAB PO (22:18)
[2017-11-17] MEDS: PRAVASTATIN 20 MG TAB PO (22:18)
[2017-11-17] MEDS: PANTOPRAZOLE 40MG TAB (PROTONIX) PO (22:18)
[2017-11-17] MEDS: LEVEMIR (INSULIN DETEMIR) 1 UNITS/0.01ML SC (22:19)
[2017-11-18] MEDS: methylPREDNISolone INJ 40 MG/1 ML VIAL (J2920) IV ×3 (00:47→18:40)
[2017-11-18] MEDS: GI COCKTAIL 50ML BTL(HYOSCYAMINE/MAALOX/LIDOCAINE VISCOUS)(1:3:1) PO (01:14)
[2017-11-18] MEDS: IPRATROPIUM 0.5MG/ALBUTEROL 2.5MG INH SOL UD 3ML (DUONEB)(J7620) NEB ×5 (01:42→21:29)
[2017-11-18] MEDS: ACETAMINOPHEN TAB 650MG DOSE (2X325MG) PO (02:13)
[2017-11-18] MEDS: LIDOCAINE 5% (LIDODERM) PATCH TD ×2 (02:13→21:07)
[2017-11-18 06:00] LABS: BEDSIDE GLUCOSE 423 MG/DL (80-115)
[2017-11-18 06:15] LABS: MAGNESIUM LEVEL 2.1 MG/DL (1.8-2.4)
[2017-11-18] MEDS: PIPERACILLIN/TAZOBACTAM SOD 3.375 GM in D5W MINI-BAG PLUS 50 ML IV ×3 (06:20→21:07)
[2017-11-18 07:28] LABS: BASO % 0.2 % (0.0-1.0); HEMATOCRIT 32.6 % (42.0-52.0); HEMOGLOBIN 10.3 g/dl (13.5-17.5); IMMATURE GRANULOCYTE % 4.5 % (0-3.0); LYMPH # 0.4 10^3/uL (1.5-4.5); LYMPH % 3.7 % (24.0-44.0); MEAN CORPUSCULAR HEMOGLOBIN 31.8 pg (27.0-33.0); MEAN CORPUSCULAR HGB CONC 31.6 g/dl (32.0-36.5); MEAN CORPUSCULAR VOLUME 100.6 fl (80.0-96.0); MONO # 0.3 10^3/uL (0.0-0.8); NEUTROPHILS # 9.3 10^3/uL (1.8-7.7); NEUTROPHILS % 88.6 % (36.0-66.0); PLATELET COUNT, AUTOMATED 147 10^3/uL (150-450); RED BLOOD COUNT 3.24 10^6/uL (4.30-6.10); RED CELL DISTRIBUTION WIDTH 17.1 % (11.5-14.5); WHITE BLOOD COUNT 10.5 10^3/uL (4.0-10.0)
[2017-11-18 07:40] LABS: ALBUMIN/GLOBULIN RATIO 0.79 (1.00-1.93); ALKALINE PHOSPHATASE 83 U/L (45-117); ALT/SGPT 47 U/L (12-78); ANION GAP 10 MEQ/L (8-16); AST/SGOT 15 U/L (7-37); BILIRUBIN,TOTAL 0.4 MG/DL (0.2-1.0); BLOOD UREA NITROGEN 55 MG/DL (7-18); CALCIUM LEVEL 9.2 MG/DL (8.8-10.2); CARBON DIOXIDE LEVEL 32 MEQ/L (21-32); CHLORIDE LEVEL 97 MEQ/L (98-107); CREATININE FOR GFR 1.72 MG/DL (0.70-1.30); GLOMERULAR FILTRATION RATE 42.7 (>49); GLUCOSE, FASTING 388 MG/DL (70-100); POTASSIUM SERUM 4.3 MEQ/L (3.5-5.1); SODIUM LEVEL 139 MEQ/L (136-145); TOTAL PROTEIN 6.8 GM/DL (6.4-8.2)
[2017-11-18] MEDS: FUROSEMIDE 100 MG/10 ML VIAL (J1940) IV ×2 (08:34→18:38)
[2017-11-18] MEDS: ACETAMINOPHEN 500 MG TAB PO ×3 (08:37→21:08)
[2017-11-18] MEDS: guaiFENesin ER 600 MG TAB PO ×2 (08:38→21:08)
[2017-11-18] MEDS: GABAPENTIN 300 MG CAP PO ×3 (08:38→21:08)
[2017-11-18] MEDS: LACTOBACILLUS ACIDOPHILUS CAP (BACID) PO ×3 (08:38→18:34)
[2017-11-18] MEDS: POTASSIUM CHLORIDE 10 MEQ SR TABLET PO (08:38)
[2017-11-18] MEDS: rOPINIRole 1MG TAB PO ×2 (08:39→21:07)
[2017-11-18] MEDS: ASPIRIN 81 MG ENTERIC TAB PO (08:39)
[2017-11-18] MEDS: CYANOCOBALAMIN 500 MCG TAB PO (08:40)
[2017-11-18] MEDS: ALLOPURINOL 300 MG TAB PO (08:41)
[2017-11-18] MEDS: APIXABAN 5 MG TAB (ELIQUIS) PO ×2 (08:42→18:34)
[2017-11-18] MEDS: HumaLOG INSULIN (NovoLOG) PER UNIT SC ×4 (08:43→21:08)
[2017-11-18] MEDS: ATENOLOL 25 MG TAB PO (10:33)
[2017-11-18] MEDS: VANCOMYCIN HCL 1,000 MG, VIAL MATE ADAPTER 1 EACH in D5W 250 ML IV ×2 (10:34→21:07)
[2017-11-18 12:03] LABS: BEDSIDE GLUCOSE 438 MG/DL (80-115)
[2017-11-18] MEDS: **NOTE PATIENT COMMENT** MISC XX (14:20)
[2017-11-18 16:54] LABS: BEDSIDE GLUCOSE 462 MG/DL (80-115)
[2017-11-18 20:33] LABS: BEDSIDE GLUCOSE 473 MG/DL (80-115)
[2017-11-18] MEDS: SERTRALINE HCL 50 MG TAB PO (21:07)
[2017-11-18] MEDS: PRAVASTATIN 20 MG TAB PO (21:07)
[2017-11-18] MEDS: PANTOPRAZOLE 40MG TAB (PROTONIX) PO (21:07)
[2017-11-18] MEDS: LEVEMIR (INSULIN DETEMIR) 1 UNITS/0.01ML SC (21:09)
[2017-11-19] MEDS: methylPREDNISolone INJ 40 MG/1 ML VIAL (J2920) IV ×2 (00:32→08:27)
[2017-11-19 05:54] LABS: BASO % 0.3 % (0.0-1.0); EOS % 0.1 % (0.0-3.0); HEMATOCRIT 35.7 % (42.0-52.0); HEMOGLOBIN 11.3 g/dl (13.5-17.5); IMMATURE GRANULOCYTE % 4.6 % (0-3.0); LYMPH # 0.5 10^3/uL (1.5-4.5); LYMPH % 4.3 % (24.0-44.0); MEAN CORPUSCULAR HGB CONC 31.7 g/dl (32.0-36.5); MEAN CORPUSCULAR VOLUME 101.1 fl (80.0-96.0); MONO # 0.4 10^3/uL (0.0-0.8); MONO % 3.4 % (0.0-5.0); NEUTROPHILS # 10.1 10^3/uL (1.8-7.7); NEUTROPHILS % 87.3 % (36.0-66.0); PLATELET COUNT, AUTOMATED 149 10^3/uL (150-450); RED BLOOD COUNT 3.53 10^6/uL (4.30-6.10); WHITE BLOOD COUNT 11.6 10^3/uL (4.0-10.0)
[2017-11-19 06:15] LABS: ALBUMIN 3.2 GM/DL (3.2-5.2); ALBUMIN/GLOBULIN RATIO 0.76 (1.00-1.93); ALKALINE PHOSPHATASE 86 U/L (45-117); ALT/SGPT 45 U/L (12-78); ANION GAP 12 MEQ/L (8-16); AST/SGOT 15 U/L (7-37); BILIRUBIN,TOTAL 0.6 MG/DL (0.2-1.0); BLOOD UREA NITROGEN 55 MG/DL (7-18); CALCIUM LEVEL 8.8 MG/DL (8.8-10.2); CARBON DIOXIDE LEVEL 33 MEQ/L (21-32); CHLORIDE LEVEL 105 MEQ/L (98-107); CREATININE FOR GFR 1.63 MG/DL (0.70-1.30); GLOMERULAR FILTRATION RATE 45.4 (>49); GLUCOSE, FASTING 375 MG/DL (70-100); MAGNESIUM LEVEL 2.1 MG/DL (1.8-2.4); POTASSIUM SERUM 4.6 MEQ/L (3.5-5.1); SODIUM LEVEL 150 MEQ/L (136-145); TOTAL PROTEIN 7.4 GM/DL (6.4-8.2)
[2017-11-19] MEDS: PIPERACILLIN/TAZOBACTAM SOD 3.375 GM in D5W MINI-BAG PLUS 50 ML IV (06:42)
[2017-11-19] MEDS: IPRATROPIUM 0.5MG/ALBUTEROL 2.5MG INH SOL UD 3ML (DUONEB)(J7620) NEB ×4 (07:16→19:58)
[2017-11-19] MEDS: ALLOPURINOL 300 MG TAB PO (08:26)
[2017-11-19] MEDS: rOPINIRole 1MG TAB PO ×2 (08:26→21:00)
[2017-11-19] MEDS: guaiFENesin ER 600 MG TAB PO ×2 (08:26→21:00)
[2017-11-19] MEDS: LACTOBACILLUS ACIDOPHILUS CAP (BACID) PO ×3 (08:26→18:00)
[2017-11-19] MEDS: POTASSIUM CHLORIDE 10 MEQ SR TABLET PO (08:26)
[2017-11-19] MEDS: CYANOCOBALAMIN 500 MCG TAB PO (08:27)
[2017-11-19] MEDS: ASPIRIN 81 MG ENTERIC TAB PO (08:27)
[2017-11-19] MEDS: ATENOLOL 25 MG TAB PO (08:27)
[2017-11-19] MEDS: ACETAMINOPHEN 500 MG TAB PO ×3 (08:27→21:00)
[2017-11-19] MEDS: GABAPENTIN 300 MG CAP PO ×3 (08:27→21:00)
[2017-11-19] MEDS: APIXABAN 5 MG TAB (ELIQUIS) PO ×2 (08:27→17:00)
[2017-11-19] MEDS: HumaLOG INSULIN (NovoLOG) PER UNIT SC ×4 (08:28→21:03)
[2017-11-19] MEDS: **NOTE PATIENT COMMENT** MISC XX (08:29)
[2017-11-19] MEDS: LINEZOLID 600MG TABLET (ZYVOX) PO ×2 (09:00→21:00)
[2017-11-19 09:25] LABS: VANCOMYCIN LEVEL TROUGH 19.6 UG/ML (10.0-20.0)
[2017-11-19] MEDS: VANCOMYCIN HCL 1,000 MG, VIAL MATE ADAPTER 1 EACH in D5W 250 ML IV (10:30)
[2017-11-19 11:41] LABS: BEDSIDE GLUCOSE 411 MG/DL (80-115)
[2017-11-19 14:01] LABS: ANION GAP 12 MEQ/L (8-16); BLOOD UREA NITROGEN 62 MG/DL (7-18); CALCIUM LEVEL 9.9 MG/DL (8.8-10.2); CARBON DIOXIDE LEVEL 31 MEQ/L (21-32); CHLORIDE LEVEL 94 MEQ/L (98-107); CREATININE FOR GFR 1.64 MG/DL (0.70-1.30); GLOMERULAR FILTRATION RATE 45.1 (>49); GLUCOSE, FASTING 373 MG/DL (70-100); MAGNESIUM LEVEL 2.3 MG/DL (1.8-2.4); POTASSIUM SERUM 4.5 MEQ/L (3.5-5.1); SODIUM LEVEL 137 MEQ/L (136-145)
[2017-11-19 16:48] LABS: BEDSIDE GLUCOSE 346 MG/DL (80-115)
[2017-11-19 17:32] LABS: CPK CREATINE PHOSPHOKINASE 28 U/L (39-308); TROPONIN I 0.03 NG/ML (< 0.10)
[2017-11-19 19:58] LABS: BEDSIDE GLUCOSE 376 MG/DL (80-115)
[2017-11-19] MEDS: PRAVASTATIN 20 MG TAB PO (21:00)
[2017-11-19] MEDS: PANTOPRAZOLE 40MG TAB (PROTONIX) PO (21:00)
[2017-11-19] MEDS: predniSONE 20 MG TAB PO (21:00)
[2017-11-19] MEDS: LIDOCAINE 5% (LIDODERM) PATCH TD (21:02)
[2017-11-19] MEDS: LEVEMIR (INSULIN DETEMIR) 1 UNITS/0.01ML SC (21:03)
[2017-11-19] MEDS: SERTRALINE HCL 50 MG TAB PO (21:06)
[2017-11-20 06:10] LABS: HEMATOCRIT 36.5 % (42.0-52.0); HEMOGLOBIN 11.5 g/dl (13.5-17.5); MEAN CORPUSCULAR HEMOGLOBIN 31.8 pg (27.0-33.0); MEAN CORPUSCULAR HGB CONC 31.5 g/dl (32.0-36.5); MEAN CORPUSCULAR VOLUME 100.8 fl (80.0-96.0); PLATELET COUNT, AUTOMATED 154 10^3/uL (150-450); RED BLOOD COUNT 3.62 10^6/uL (4.30-6.10); RED CELL DISTRIBUTION WIDTH 16.8 % (11.5-14.5); WHITE BLOOD COUNT 9.4 10^3/uL (4.0-10.0)
[2017-11-20 06:11] LABS: ADD MANUAL DIFFER YES; DIFF SLIDE NUMBER 36; POS COUNT POS FLAG; POSITIVE MORPH POS FLAG
[2017-11-20 06:33] LABS: ANISOCYTOSIS 1+; LYMPHOCYTES 5 % (16-52); MONOCYTES 6 % (0-8); NEUTROPHILS 89 % (35-75); PLATELET ESTIMATE NORMAL (NORMAL)
[2017-11-20 06:34] LABS: POLYCHROMASIA 1+
[2017-11-20 06:40] LABS: ALBUMIN 3.2 GM/DL (3.2-5.2); ALBUMIN/GLOBULIN RATIO 0.82 (1.00-1.93); ALKALINE PHOSPHATASE 112 U/L (45-117); ALT/SGPT 47 U/L (12-78); ANION GAP 8 MEQ/L (8-16); AST/SGOT 23 U/L (7-37); BILIRUBIN,TOTAL 0.6 MG/DL (0.2-1.0); BLOOD UREA NITROGEN 58 MG/DL (7-18); CALCIUM LEVEL 9.2 MG/DL (8.8-10.2); CARBON DIOXIDE LEVEL 31 MEQ/L (21-32); CHLORIDE LEVEL 99 MEQ/L (98-107); CREATININE FOR GFR 1.44 MG/DL (0.70-1.30); GLOMERULAR FILTRATION RATE 52.4 (>49); GLUCOSE, FASTING 372 MG/DL (70-100); MAGNESIUM LEVEL 2.3 MG/DL (1.8-2.4); POTASSIUM SERUM 4.9 MEQ/L (3.5-5.1); SODIUM LEVEL 138 MEQ/L (136-145); TOTAL PROTEIN 7.1 GM/DL (6.4-8.2)
[2017-11-20] MEDS: IPRATROPIUM 0.5MG/ALBUTEROL 2.5MG INH SOL UD 3ML (DUONEB)(J7620) NEB ×4 (07:37→21:02)
[2017-11-20] MEDS: **NOTE PATIENT COMMENT** MISC XX (09:00)
[2017-11-20] MEDS: APIXABAN 5 MG TAB (ELIQUIS) PO ×2 (09:04→17:32)
[2017-11-20] MEDS: ACETAMINOPHEN 500 MG TAB PO ×3 (09:04→21:24)
[2017-11-20] MEDS: GABAPENTIN 300 MG CAP PO ×3 (09:04→21:25)
[2017-11-20] MEDS: LACTOBACILLUS ACIDOPHILUS CAP (BACID) PO ×3 (09:04→17:33)
[2017-11-20] MEDS: LINEZOLID 600MG TABLET (ZYVOX) PO ×2 (09:04→21:24)
[2017-11-20] MEDS: guaiFENesin ER 600 MG TAB PO ×2 (09:04→21:24)
[2017-11-20] MEDS: predniSONE 20 MG TAB PO (09:04)
[2017-11-20] MEDS: ALLOPURINOL 300 MG TAB PO (09:04)
[2017-11-20] MEDS: CYANOCOBALAMIN 500 MCG TAB PO (09:04)
[2017-11-20] MEDS: POTASSIUM CHLORIDE 10 MEQ SR TABLET PO (09:05)
[2017-11-20] MEDS: FUROSEMIDE 40 MG TAB PO ×2 (09:05→17:32)
[2017-11-20] MEDS: rOPINIRole 1MG TAB PO ×2 (09:05→21:24)
[2017-11-20] MEDS: HumaLOG INSULIN (NovoLOG) PER UNIT SC ×4 (09:06→21:23)
[2017-11-20] MEDS: ATENOLOL 25 MG TAB PO (09:06)
[2017-11-20] MEDS: ASPIRIN 81 MG ENTERIC TAB PO (09:07)
[2017-11-20 11:30] LABS: BEDSIDE GLUCOSE 281 MG/DL (80-115)
[2017-11-20 16:39] LABS: BEDSIDE GLUCOSE 405 MG/DL (80-115)
[2017-11-20 19:47] LABS: BEDSIDE GLUCOSE 482 MG/DL (80-115)
[2017-11-20] MEDS: LEVEMIR (INSULIN DETEMIR) 1 UNITS/0.01ML SC (21:23)
[2017-11-20] MEDS: PRAVASTATIN 20 MG TAB PO (21:24)
[2017-11-20] MEDS: LIDOCAINE 5% (LIDODERM) PATCH TD (21:24)
[2017-11-20] MEDS: PANTOPRAZOLE 40MG TAB (PROTONIX) PO (21:25)
[2017-11-20] MEDS: SERTRALINE HCL 50 MG TAB PO (21:25)
[2017-11-21 06:16] LABS: ADD MANUAL DIFFER YES; DIFF SLIDE NUMBER 23; HEMATOCRIT 36.8 % (42.0-52.0); HEMOGLOBIN 11.7 g/dl (13.5-17.5); MEAN CORPUSCULAR HEMOGLOBIN 32.2 pg (27.0-33.0); MEAN CORPUSCULAR HGB CONC 31.8 g/dl (32.0-36.5); MEAN CORPUSCULAR VOLUME 101.4 fl (80.0-96.0); PLATELET COUNT, AUTOMATED 142 10^3/uL (150-450); POS COUNT POS FLAG; POSITIVE MORPH POS FLAG; RED BLOOD COUNT 3.63 10^6/uL (4.30-6.10); RED CELL DISTRIBUTION WIDTH 16.7 % (11.5-14.5); WHITE BLOOD COUNT 7.1 10^3/uL (4.0-10.0)
[2017-11-21 06:44] LABS: ALBUMIN 3.1 GM/DL (3.2-5.2); ALBUMIN/GLOBULIN RATIO 0.89 (1.00-1.93); ALKALINE PHOSPHATASE 84 U/L (45-117); ALT/SGPT 43 U/L (12-78); ANION GAP 10 MEQ/L (8-16); AST/SGOT 21 U/L (7-37); BILIRUBIN,TOTAL 0.7 MG/DL (0.2-1.0); BLOOD UREA NITROGEN 58 MG/DL (7-18); CARBON DIOXIDE LEVEL 33 MEQ/L (21-32); CHLORIDE LEVEL 99 MEQ/L (98-107); CREATININE FOR GFR 1.44 MG/DL (0.70-1.30); GLOMERULAR FILTRATION RATE 52.4 (>49); GLUCOSE, FASTING 201 MG/DL (70-100); MAGNESIUM LEVEL 2.3 MG/DL (1.8-2.4); POTASSIUM SERUM 3.7 MEQ/L (3.5-5.1); SODIUM LEVEL 142 MEQ/L (136-145); TOTAL PROTEIN 6.6 GM/DL (6.4-8.2)
[2017-11-21 06:54] LABS: ATYPICAL LYMPH 2 % (0-5); BANDS 1 % (< 11); LYMPHOCYTES 8 % (16-52); METAMYELOCYTES 3 % (0-0); MONOCYTES 6 % (0-8); NEUTROPHILS 80 % (35-75)
[2017-11-21 06:55] LABS: ANISOCYTOSIS 1+; PLATELET ESTIMATE NORMAL (NORMAL)
[2017-11-21 06:56] LABS: STOMATOCYTES 1+
[2017-11-21] MEDS: IPRATROPIUM 0.5MG/ALBUTEROL 2.5MG INH SOL UD 3ML (DUONEB)(J7620) NEB ×5 (07:20→20:55)
[2017-11-21] MEDS: ATENOLOL 25 MG TAB PO (07:57)
[2017-11-21] MEDS: LINEZOLID 600MG TABLET (ZYVOX) PO ×2 (07:57→20:18)
[2017-11-21] MEDS: LACTOBACILLUS ACIDOPHILUS CAP (BACID) PO ×3 (07:58→16:50)
[2017-11-21] MEDS: ASPIRIN 81 MG ENTERIC TAB PO (07:58)
[2017-11-21] MEDS: guaiFENesin ER 600 MG TAB PO ×2 (07:58→20:18)
[2017-11-21] MEDS: APIXABAN 5 MG TAB (ELIQUIS) PO ×2 (07:58→16:50)
[2017-11-21] MEDS: ACETAMINOPHEN 500 MG TAB PO ×3 (07:58→20:18)
[2017-11-21] MEDS: rOPINIRole 1MG TAB PO ×2 (07:58→20:17)
[2017-11-21] MEDS: GABAPENTIN 300 MG CAP PO ×3 (07:59→20:17)
[2017-11-21] MEDS: CYANOCOBALAMIN 500 MCG TAB PO (07:59)
[2017-11-21] MEDS: ALLOPURINOL 300 MG TAB PO (07:59)
[2017-11-21] MEDS: HumaLOG INSULIN (NovoLOG) PER UNIT SC ×4 (07:59→20:17)
[2017-11-21] MEDS: FUROSEMIDE 40 MG TAB PO (07:59)
[2017-11-21] MEDS: **NOTE PATIENT COMMENT** MISC XX (08:00)
[2017-11-21] MEDS: predniSONE 20 MG TAB PO (08:00)
[2017-11-21] MEDS: POTASSIUM CHLORIDE 10 MEQ SR TABLET PO (08:00)
[2017-11-21] MEDS: FUROSEMIDE 40 MG/4 ML VIAL (J1940) IV ×2 (10:10→16:50)
[2017-11-21 11:37] LABS: BEDSIDE GLUCOSE 274 MG/DL (80-115)
[2017-11-21 16:40] LABS: BEDSIDE GLUCOSE 451 MG/DL (80-115)
[2017-11-21 19:40] LABS: BEDSIDE GLUCOSE 409 MG/DL (80-115)
[2017-11-21] MEDS: LEVEMIR (INSULIN DETEMIR) 1 UNITS/0.01ML SC (20:16)
[2017-11-21] MEDS: LIDOCAINE 5% (LIDODERM) PATCH TD (20:17)
[2017-11-21] MEDS: PANTOPRAZOLE 40MG TAB (PROTONIX) PO (20:17)
[2017-11-21] MEDS: PRAVASTATIN 20 MG TAB PO (20:18)
[2017-11-21] MEDS: SERTRALINE HCL 50 MG TAB PO (20:18)
[2017-11-21] MEDS: GI COCKTAIL 50ML BTL(HYOSCYAMINE/MAALOX/LIDOCAINE VISCOUS)(1:3:1) PO (21:39)
[2017-11-22 06:00] LABS: HEMATOCRIT 38.8 % (42.0-52.0); HEMOGLOBIN 12.3 g/dl (13.5-17.5); MEAN CORPUSCULAR HEMOGLOBIN 31.7 pg (27.0-33.0); MEAN CORPUSCULAR HGB CONC 31.7 g/dl (32.0-36.5); PLATELET COUNT, AUTOMATED 156 10^3/uL (150-450); RED BLOOD COUNT 3.88 10^6/uL (4.30-6.10); RED CELL DISTRIBUTION WIDTH 16.6 % (11.5-14.5); WHITE BLOOD COUNT 9.3 10^3/uL (4.0-10.0)
[2017-11-22 06:04] LABS: ADD MANUAL DIFFER YES; DIFF SLIDE NUMBER 19; POS COUNT POS FLAG; POSITIVE MORPH POS FLAG
[2017-11-22] MEDS: IPRATROPIUM 0.5MG/ALBUTEROL 2.5MG INH SOL UD 3ML (DUONEB)(J7620) NEB ×4 (06:27→20:56)
[2017-11-22 06:29] LABS: ANISOCYTOSIS 1+; LYMPHOCYTES 13 % (16-52); METAMYELOCYTES 3 % (0-0); MONOCYTES 3 % (0-8); MYELOCYTES 2 % (0-0); NEUTROPHILS 79 % (35-75); PLATELET ESTIMATE NORMAL (NORMAL)
[2017-11-22 06:31] LABS: ALBUMIN 3.4 GM/DL (3.2-5.2); ALBUMIN/GLOBULIN RATIO 0.94 (1.00-1.93); ALKALINE PHOSPHATASE 77 U/L (45-117); ALT/SGPT 50 U/L (12-78); ANION GAP 9 MEQ/L (8-16); AST/SGOT 22 U/L (7-37); BILIRUBIN,TOTAL 0.6 MG/DL (0.2-1.0); BLOOD UREA NITROGEN 65 MG/DL (7-18); CALCIUM LEVEL 9.3 MG/DL (8.8-10.2); CARBON DIOXIDE LEVEL 31 MEQ/L (21-32); CHLORIDE LEVEL 96 MEQ/L (98-107); CREATININE FOR GFR 1.65 MG/DL (0.70-1.30); GLOMERULAR FILTRATION RATE 44.8 (>49); GLUCOSE, FASTING 188 MG/DL (70-100); MAGNESIUM LEVEL 2.4 MG/DL (1.8-2.4); SODIUM LEVEL 136 MEQ/L (136-145)
[2017-11-22] MEDS: FUROSEMIDE 40 MG/4 ML VIAL (J1940) IV (08:01)
[2017-11-22] MEDS: GABAPENTIN 300 MG CAP PO ×3 (08:02→20:20)
[2017-11-22] MEDS: HumaLOG INSULIN (NovoLOG) PER UNIT SC ×4 (08:02→21:20)
[2017-11-22] MEDS: ACETAMINOPHEN 500 MG TAB PO ×3 (08:02→22:13)
[2017-11-22] MEDS: POTASSIUM CHLORIDE 10 MEQ SR TABLET PO (08:03)
[2017-11-22] MEDS: predniSONE 20 MG TAB PO (08:03)
[2017-11-22] MEDS: LACTOBACILLUS ACIDOPHILUS CAP (BACID) PO ×3 (08:03→18:07)
[2017-11-22] MEDS: LINEZOLID 600MG TABLET (ZYVOX) PO ×2 (08:07→20:20)
[2017-11-22] MEDS: APIXABAN 5 MG TAB (ELIQUIS) PO ×2 (08:07→18:08)
[2017-11-22] MEDS: ATENOLOL 25 MG TAB PO (08:07)
[2017-11-22] MEDS: ASPIRIN 81 MG ENTERIC TAB PO (08:07)
[2017-11-22] MEDS: guaiFENesin ER 600 MG TAB PO ×2 (08:07→20:20)
[2017-11-22] MEDS: rOPINIRole 1MG TAB PO ×2 (08:07→20:20)
[2017-11-22] MEDS: ALLOPURINOL 300 MG TAB PO (08:07)
[2017-11-22] MEDS: CYANOCOBALAMIN 500 MCG TAB PO (08:08)
[2017-11-22] MEDS: **NOTE PATIENT COMMENT** MISC XX (08:10)
[2017-11-22 11:26] LABS: BEDSIDE GLUCOSE 285 MG/DL (80-115)
[2017-11-22] MEDS: FUROSEMIDE 100 MG/10 ML VIAL (J1940) IV (14:10)
[2017-11-22 14:33] LABS: ABG BASE EXCESS 3.5 (-2.0-2.0); ABG HCO3 28.2 MEQ/L (22.0-26.0); ABG O2 SATURATION 95.5 % (95.0-99.0); ABG PARTIAL PRESSURE CO2 43.5 mmHg (35.0-45.0); ABG PARTIAL PRESSURE O2 79.2 mmHg (75.0-100.0); ABG STANDARD HCO3 27.5 MEQ/L (22.0-26.0); ABG TOTAL CO2 29.6 MEQ/L (23.0-31.0)
[2017-11-22 15:15] LABS: CPK CREATINE PHOSPHOKINASE 30 U/L (39-308); MB/CK RELATIVE INDEX 8.67 (< OR =4); TROPONIN I 0.03 NG/ML (< 0.10)
[2017-11-22 16:34] LABS: BEDSIDE GLUCOSE 439 MG/DL (80-115)
[2017-11-22] MEDS: FUROSEMIDE 20 MG TAB PO (18:07)
[2017-11-22] MEDS: PRAVASTATIN 20 MG TAB PO (20:20)
[2017-11-22] MEDS: PANTOPRAZOLE 40MG TAB (PROTONIX) PO (20:20)
[2017-11-22] MEDS: SERTRALINE HCL 50 MG TAB PO (20:20)
[2017-11-22] MEDS: LIDOCAINE 5% (LIDODERM) PATCH TD (20:22)
[2017-11-22 21:11] LABS: BEDSIDE GLUCOSE 329 MG/DL (80-115)
[2017-11-22] MEDS: LEVEMIR (INSULIN DETEMIR) 1 UNITS/0.01ML SC (21:19)
[2017-11-23 05:59] LABS: HEMATOCRIT 36.1 % (42.0-52.0); HEMOGLOBIN 11.6 g/dl (13.5-17.5); MEAN CORPUSCULAR HGB CONC 32.1 g/dl (32.0-36.5); MEAN CORPUSCULAR VOLUME 99.4 fl (80.0-96.0); PLATELET COUNT, AUTOMATED 130 10^3/uL (150-450); RED BLOOD COUNT 3.63 10^6/uL (4.30-6.10); RED CELL DISTRIBUTION WIDTH 16.3 % (11.5-14.5); WHITE BLOOD COUNT 8.1 10^3/uL (4.0-10.0)
[2017-11-23 06:07] LABS: ADD MANUAL DIFFER YES; DIFF SLIDE NUMBER 20; POS COUNT POS FLAG; POSITIVE MORPH POS FLAG
[2017-11-23 06:32] LABS: ALBUMIN 3.1 GM/DL (3.2-5.2); ALBUMIN/GLOBULIN RATIO 0.86 (1.00-1.93); ALKALINE PHOSPHATASE 63 U/L (45-117); ALT/SGPT 42 U/L (12-78); ANION GAP 10 MEQ/L (8-16); AST/SGOT 17 U/L (7-37); BILIRUBIN,TOTAL 0.6 MG/DL (0.2-1.0); BLOOD UREA NITROGEN 64 MG/DL (7-18); CALCIUM LEVEL 8.6 MG/DL (8.8-10.2); CARBON DIOXIDE LEVEL 30 MEQ/L (21-32); CHLORIDE LEVEL 94 MEQ/L (98-107); CREATININE FOR GFR 1.67 MG/DL (0.70-1.30); GLOMERULAR FILTRATION RATE 44.2 (>49); GLUCOSE, FASTING 173 MG/DL (70-100); MAGNESIUM LEVEL 2.2 MG/DL (1.8-2.4); POTASSIUM SERUM 3.5 MEQ/L (3.5-5.1); SODIUM LEVEL 134 MEQ/L (136-145); TOTAL PROTEIN 6.7 GM/DL (6.4-8.2)
[2017-11-23 06:44] LABS: ANISOCYTOSIS 1+; ATYPICAL LYMPH 1 % (0-5); BANDS 3 % (< 11); EOSINOPHILS 1 % (0-5); LYMPHOCYTES 9 % (16-52); METAMYELOCYTES 1 % (0-0); MONOCYTES 2 % (0-8); MYELOCYTES 1 % (0-0); NEUTROPHILS 82 % (35-75)
[2017-11-23 06:45] LABS: PLATELET ESTIMATE DECREASED (NORMAL); POLYCHROMASIA 1+
[2017-11-23] MEDS: IPRATROPIUM 0.5MG/ALBUTEROL 2.5MG INH SOL UD 3ML (DUONEB)(J7620) NEB ×2 (07:24→11:22)
[2017-11-23] MEDS: LACTOBACILLUS ACIDOPHILUS CAP (BACID) PO ×2 (08:01→12:34)
[2017-11-23] MEDS: APIXABAN 5 MG TAB (ELIQUIS) PO (08:01)
[2017-11-23] MEDS: guaiFENesin ER 600 MG TAB PO (08:02)
[2017-11-23] MEDS: LINEZOLID 600MG TABLET (ZYVOX) PO (08:02)
[2017-11-23] MEDS: GABAPENTIN 300 MG CAP PO (08:02)
[2017-11-23] MEDS: CYANOCOBALAMIN 500 MCG TAB PO (08:02)
[2017-11-23] MEDS: predniSONE 20 MG TAB PO (08:02)
[2017-11-23] MEDS: ALLOPURINOL 300 MG TAB PO (08:02)
[2017-11-23] MEDS: POTASSIUM CHLORIDE 10 MEQ SR TABLET PO (08:02)
[2017-11-23] MEDS: rOPINIRole 1MG TAB PO (08:02)
[2017-11-23] MEDS: FUROSEMIDE 20 MG TAB PO (08:03)
[2017-11-23] MEDS: ASPIRIN 81 MG ENTERIC TAB PO (08:03)
[2017-11-23] MEDS: ACETAMINOPHEN 500 MG TAB PO (08:04)
[2017-11-23] MEDS: ATENOLOL 25 MG TAB PO (08:04)
[2017-11-23] MEDS: **NOTE PATIENT COMMENT** MISC XX (08:05)
[2017-11-23] MEDS: HumaLOG INSULIN (NovoLOG) PER UNIT SC ×2 (08:05→12:35)
[2017-11-23 11:41] LABS: BEDSIDE GLUCOSE 254 MG/DL (80-115)
== END 2017-11-23 13:06 | DRG 177 ==
LOC: M ED 02:42 → M ED INP 04:30 → M MSPAV 09:05
DX: J15.211 Pneumonia due to Methicillin susceptible Staphylococcus aureus (principal); J96.21 Acute and chronic respiratory failure with hypoxia; J44.0 Chronic obstructive pulmonary disease with (acute) lower respiratory infection; I50.32 Chronic diastolic (congestive) heart failure; E27.40 Unspecified adrenocortical insufficiency; J44.1 Chronic obstructive pulmonary disease with (acute) exacerbation; I13.0 Hypertensive heart and chronic kidney disease with heart failure and stage 1 through stage 4 chronic kidney disease, or unspecified chronic kidney disease; G47.33 Obstructive sleep apnea (adult) (pediatric); N18.3 Chronic kidney disease, stage 3 (moderate); E11.22 Type 2 diabetes mellitus with diabetic chronic kidney disease; I48.0 Paroxysmal atrial fibrillation; Z66 Do not resuscitate; G25.81 Restless legs syndrome; E66.9 Obesity, unspecified; D64.9 Anemia, unspecified; Z85.118 Personal history of other malignant neoplasm of bronchus and lung; E11.40 Type 2 diabetes mellitus with diabetic neuropathy, unspecified; M10.9 Gout, unspecified; Z90.2 Acquired absence of lung [part of]; Z90.5 Acquired absence of kidney; Z90.49 Acquired absence of other specified parts of digestive tract; Z79.899 Other long term (current) drug therapy; Z79.01 Long term (current) use of anticoagulants; Z92.3 Personal history of irradiation; Z79.82 Long term (current) use of aspirin; Z79.52 Long term (current) use of systemic steroids; Z88.5 Allergy status to narcotic agent; Z68.38 Body mass index [BMI] 38.0-38.9, adult

== ENCOUNTER → 2017-11-17 | Outpatient (REF) | payer MEDICARE, MEDICAID | DX: D64.9 Anemia, unspecified (principal); N18.9 Chronic kidney disease, unspecified; E11.9 Type 2 diabetes mellitus without complications ==

== ENCOUNTER 2017-11-28 21:00 | Inpatient (IN) | payer MEDICARE, MEDICAID ==
[2017-11-28] MEDS: HumaLOG INSULIN (NovoLOG) PER UNIT SC (21:00)
[2017-11-28] MEDS ORDERED: IPRATROPIUM 0.5MG/ALBUTEROL 2.5MG INH SOL UD 3ML (DUONEB)(J7620) As Ordered (21:14)
[2017-11-28 22:04] LABS: ABG BASE EXCESS 1.1 (-2.0-2.0); ABG O2 SATURATION 92.8 % (95.0-99.0); ABG PARTIAL PRESSURE CO2 48.5 mmHg (35.0-45.0); ABG PARTIAL PRESSURE O2 69.9 mmHg (75.0-100.0); ABG STANDARD HCO3 25.3 MEQ/L (22.0-26.0); ABG TOTAL CO2 28.5 MEQ/L (23.0-31.0); ABG pH (ARTERIAL) 7.363 UNITS (7.350-7.450)
[2017-11-28 22:11] LABS: BASO % 0.5 % (0.0-1.0); EOS % 0.3 % (0.0-3.0); HEMATOCRIT 34.7 % (42.0-52.0); HEMOGLOBIN 11.1 g/dl (13.5-17.5); IMMATURE GRANULOCYTE % 4.9 % (0-3.0); LYMPH % 15.8 % (24.0-44.0); MEAN CORPUSCULAR HEMOGLOBIN 32.5 pg (27.0-33.0); MEAN CORPUSCULAR VOLUME 101.5 fl (80.0-96.0); MONO # 0.4 10^3/uL (0.0-0.8); MONO % 6.5 % (0.0-5.0); NEUTROPHILS # 4.8 10^3/uL (1.8-7.7); PLATELET COUNT, AUTOMATED 148 10^3/uL (150-450); RED BLOOD COUNT 3.42 10^6/uL (4.30-6.10); RED CELL DISTRIBUTION WIDTH 16.4 % (11.5-14.5); WHITE BLOOD COUNT 6.6 10^3/uL (4.0-10.0)
[2017-11-28 22:41] LABS: ALBUMIN 3.3 GM/DL (3.2-5.2); ALKALINE PHOSPHATASE 89 U/L (45-117); ALT/SGPT 47 U/L (12-78); ANION GAP 10 MEQ/L (8-16); AST/SGOT 21 U/L (7-37); BILIRUBIN,DIRECT 0.2 MG/DL (0.0-0.2); BILIRUBIN,TOTAL 0.4 MG/DL (0.2-1.0); BLOOD UREA NITROGEN 42 MG/DL (7-18); CALCIUM LEVEL 8.4 MG/DL (8.8-10.2); CARBON DIOXIDE LEVEL 30 MEQ/L (21-32); CHLORIDE LEVEL 99 MEQ/L (98-107); CREATININE FOR GFR 2.03 MG/DL (0.70-1.30); GLOMERULAR FILTRATION RATE 35.3 (>49); GLUCOSE, FASTING 183 MG/DL (70-100); NT-PRO BNP 366 PG/ML (<125); POTASSIUM SERUM 3.7 MEQ/L (3.5-5.1); SODIUM LEVEL 139 MEQ/L (136-145); TOTAL PROTEIN 6.6 GM/DL (6.4-8.2)
[2017-11-28 22:42] LABS: INFLUENZA A AMPLIFICATION NEGATIVE (NEGATIVE); INFLUENZA B AMPLIFICATION NEGATIVE (NEGATIVE)
[2017-11-28] MEDS ORDERED: VANCOMYCIN HCL 1,000 MG, VIAL MATE ADAPTER 1 EACH in D5W 250 ML IV (22:45)
[2017-11-28 23:07] LABS: LACTIC ACID SEPSIS PROTOCOL 2.3 MMOL/L (0.4-2.0)
[2017-11-28] MEDS: PIPERACILLIN/TAZOBACTAM SOD 3.375 GM in D5W MINI-BAG PLUS 50 ML IV (23:40)
[2017-11-28 23:43] LABS: APPEARANCE, URINE CLEAR (CLEAR); BACTERIA, URINE AUTO NEGATIVE (NEGATIVE); BILIRUBIN, URINE AUTO NEGATIVE (NEGATIVE); BLOOD, URINE BLOOD NEGATIVE (NEGATIVE); COLOR, URINE YELLOW (YELLOW); GLUCOSE, URINE (UA) AUTO NEGATIVE (NEGATIVE); KETONE, URINE AUTO NEGATIVE (NEGATIVE); LEUKOCYTE ESTERASE, URINE AUTO NEGATIVE (NEGATIVE); MUCUS, URINE SMALL (NEGATIVE); NITRITE, URINE AUTO NEGATIVE (NEGATIVE); PROTEIN, URINE AUTO 1+ mg/dL (NEGATIVE); RBC, URINE AUTO 2 /HPF (0-3); SPECIFIC GRAVITY URINE AUTO 1.015 (1.002-1.035); SQUAMOUS EPITHELIAL CELL UR AU 0 /HPF (0-6); UROBILINOGEN, URINE AUTO 0.2 mg/dL (0.0-2.0); WBC, URINE AUTO 0 /HPF (0-3)
[2017-11-29] MEDS ORDERED: DOXYCYCLINE HYCLATE 100 MG in D5W MINI-BAG PLUS 100 ML IV (01:00)
[2017-11-29] MEDS: LINEZOLID 600 MG in APPROPRIATE DILUENT 1 EA IV (01:22)
[2017-11-29] MEDS ORDERED: BISACODYL 10 MG SUPP PR (01:30)
[2017-11-29] MEDS ORDERED: GLUCAGON FOR INJ 1 MG VIAL (J1610) SC (01:30)
[2017-11-29] MEDS ORDERED: MOM 30ML SUSPENSION UDC PO (01:30)
[2017-11-29] MEDS ORDERED: IPRATROPIUM 0.5MG/ALBUTEROL 2.5MG INH SOL UD 3ML (DUONEB)(J7620) NEB (01:30)
[2017-11-29] MEDS ORDERED: DEXTROSE 50% 50 ML SYRINGE IV (01:30)
[2017-11-29] MEDS ORDERED: ACETAMINOPHEN TAB 650MG DOSE (2X325MG) PO (01:30)
[2017-11-29] MEDS ORDERED: GLUCOSE 4 GM CHEW TABLET PO (01:30)
[2017-11-29] MEDS: methylPREDNISolone INJ 40 MG/1 ML VIAL (J2920) IV ×4 (04:47→20:52)
[2017-11-29] MEDS: DOXYCYCLINE HYCLATE 100 MG in D5W MINI-BAG PLUS 100 ML IV ×2 (05:23→16:17)
[2017-11-29 06:43] LABS: HEMATOCRIT 33.5 % (42.0-52.0); HEMOGLOBIN 10.7 g/dl (13.5-17.5); MEAN CORPUSCULAR HEMOGLOBIN 32.2 pg (27.0-33.0); MEAN CORPUSCULAR HGB CONC 31.9 g/dl (32.0-36.5); MEAN CORPUSCULAR VOLUME 100.9 fl (80.0-96.0); PLATELET COUNT, AUTOMATED 129 10^3/uL (150-450); RED BLOOD COUNT 3.32 10^6/uL (4.30-6.10); RED CELL DISTRIBUTION WIDTH 16.5 % (11.5-14.5); WHITE BLOOD COUNT 9.3 10^3/uL (4.0-10.0)
[2017-11-29] MEDS: IPRATROPIUM 0.5MG/ALBUTEROL 2.5MG INH SOL UD 3ML (DUONEB)(J7620) NEB ×4 (07:07→20:07)
[2017-11-29 07:14] LABS: ANION GAP 7 MEQ/L (8-16); BLOOD UREA NITROGEN 34 MG/DL (7-18); CALCIUM LEVEL 8.6 MG/DL (8.8-10.2); CARBON DIOXIDE LEVEL 32 MEQ/L (21-32); CHLORIDE LEVEL 99 MEQ/L (98-107); CREATININE FOR GFR 1.67 MG/DL (0.70-1.30); GLOMERULAR FILTRATION RATE 44.2 (>49); GLUCOSE, FASTING 220 MG/DL (70-100); POTASSIUM SERUM 3.6 MEQ/L (3.5-5.1); SODIUM LEVEL 138 MEQ/L (136-145)
[2017-11-29] MEDS: ALLOPURINOL 300 MG TAB PO (08:43)
[2017-11-29] MEDS: ASPIRIN 81 MG ENTERIC TAB PO (08:43)
[2017-11-29] MEDS: HumaLOG INSULIN (NovoLOG) PER UNIT SC ×4 (08:43→22:03)
[2017-11-29] MEDS: ACETAMINOPHEN 500 MG TAB PO ×3 (08:44→22:01)
[2017-11-29] MEDS: CYANOCOBALAMIN 500 MCG TAB PO (08:44)
[2017-11-29] MEDS: LACTOBACILLUS ACIDOPHILUS CAP (BACID) PO ×3 (08:44→17:48)
[2017-11-29] MEDS: rOPINIRole 1MG TAB PO ×2 (08:44→22:01)
[2017-11-29] MEDS: APIXABAN 5 MG TAB (ELIQUIS) PO ×2 (08:45→22:01)
[2017-11-29] MEDS: SENOKOT S TAB PO ×2 (08:45→22:02)
[2017-11-29] MEDS: CARVedilol 12.5 MG TAB PO ×2 (08:45→22:04)
[2017-11-29] MEDS: TORSEMIDE (DEMADEX) 50 MG PER 1/2 TAB PO (08:45)
[2017-11-29] MEDS: GABAPENTIN 300 MG CAP PO ×3 (08:45→22:02)
[2017-11-29 17:40] LABS: BEDSIDE GLUCOSE 253 MG/DL (80-115)
[2017-11-29 17:40] LABS: BEDSIDE GLUCOSE 418 MG/DL (80-115)
[2017-11-29 17:45] LABS: BEDSIDE GLUCOSE 432 MG/DL (80-115)
[2017-11-29] MEDS ORDERED: HumaLOG INSULIN (NovoLOG) PER UNIT SC (21:00)
[2017-11-29 21:19] LABS: BEDSIDE GLUCOSE 323 MG/DL (80-115)
[2017-11-29] MEDS: PRAVASTATIN 20 MG TAB PO (22:00)
[2017-11-29] MEDS: PANTOPRAZOLE 40MG TAB (PROTONIX) PO (22:01)
[2017-11-29] MEDS: SERTRALINE HCL 50 MG TAB PO (22:02)
[2017-11-29] MEDS: LEVEMIR (INSULIN DETEMIR) 1 UNITS/0.01ML SC (22:03)
[2017-11-30] MEDS: methylPREDNISolone INJ 40 MG/1 ML VIAL (J2920) IV ×3 (02:56→12:26)
[2017-11-30] MEDS: DOXYCYCLINE HYCLATE 100 MG in D5W MINI-BAG PLUS 100 ML IV ×2 (04:55→17:08)
[2017-11-30 06:20] LABS: HEMATOCRIT 30.3 % (42.0-52.0); HEMOGLOBIN 9.8 g/dl (13.5-17.5); MEAN CORPUSCULAR HGB CONC 32.3 g/dl (32.0-36.5); PLATELET COUNT, AUTOMATED 133 10^3/uL (150-450); RED BLOOD COUNT 3.06 10^6/uL (4.30-6.10); RED CELL DISTRIBUTION WIDTH 16.1 % (11.5-14.5); WHITE BLOOD COUNT 11.2 10^3/uL (4.0-10.0)
[2017-11-30 06:36] LABS: ANION GAP 7 MEQ/L (8-16); BLOOD UREA NITROGEN 36 MG/DL (7-18); CALCIUM LEVEL 8.7 MG/DL (8.8-10.2); CARBON DIOXIDE LEVEL 30 MEQ/L (21-32); CHLORIDE LEVEL 97 MEQ/L (98-107); CREATININE FOR GFR 1.71 MG/DL (0.70-1.30); GLUCOSE, FASTING 342 MG/DL (70-100); POTASSIUM SERUM 4.2 MEQ/L (3.5-5.1); SODIUM LEVEL 134 MEQ/L (136-145)
[2017-11-30] MEDS: IPRATROPIUM 0.5MG/ALBUTEROL 2.5MG INH SOL UD 3ML (DUONEB)(J7620) NEB ×4 (07:16→20:36)
[2017-11-30] MEDS: HumaLOG INSULIN (NovoLOG) PER UNIT SC ×4 (07:54→22:04)
[2017-11-30] MEDS: LACTOBACILLUS ACIDOPHILUS CAP (BACID) PO ×3 (07:55→17:09)
[2017-11-30] MEDS: rOPINIRole 1MG TAB PO ×2 (07:55→22:02)
[2017-11-30] MEDS: ACETAMINOPHEN 500 MG TAB PO ×3 (07:55→22:02)
[2017-11-30] MEDS: SENOKOT S TAB PO ×2 (07:55→22:02)
[2017-11-30] MEDS: GABAPENTIN 300 MG CAP PO ×3 (07:55→22:03)
[2017-11-30] MEDS: APIXABAN 5 MG TAB (ELIQUIS) PO ×2 (07:56→22:03)
[2017-11-30] MEDS: CARVedilol 12.5 MG TAB PO ×2 (07:56→22:04)
[2017-11-30] MEDS: ASPIRIN 81 MG ENTERIC TAB PO (07:56)
[2017-11-30] MEDS: CYANOCOBALAMIN 500 MCG TAB PO (07:57)
[2017-11-30] MEDS: ALLOPURINOL 300 MG TAB PO (07:57)
[2017-11-30] MEDS ORDERED: MAXIMUM TYLENOL (APAP) = 4GM/24H XX (08:30)
[2017-11-30 11:35] LABS: BEDSIDE GLUCOSE 325 MG/DL (80-115)
[2017-11-30] MEDS: TORSEMIDE (DEMADEX) 50 MG PER 1/2 TAB PO (12:24)
[2017-11-30] MEDS ORDERED: SODIUM CHLORIDE 0.9% INJ 10 ML SYR IV (14:00)
[2017-11-30 16:33] LABS: BEDSIDE GLUCOSE 491 MG/DL (80-115)
[2017-11-30 16:33] LABS: BEDSIDE GLUCOSE 423 MG/DL (80-115)
[2017-11-30] MEDS: PANTOPRAZOLE 40MG TAB (PROTONIX) PO (22:03)
[2017-11-30] MEDS: PRAVASTATIN 20 MG TAB PO (22:03)
[2017-11-30] MEDS: SERTRALINE HCL 50 MG TAB PO (22:03)
[2017-11-30] MEDS: LEVEMIR (INSULIN DETEMIR) 1 UNITS/0.01ML SC (22:05)
[2017-12-01] MEDS: methylPREDNISolone INJ 40 MG/1 ML VIAL (J2920) IV (02:47)
[2017-12-01] MEDS: DOXYCYCLINE HYCLATE 100 MG in D5W MINI-BAG PLUS 100 ML IV ×2 (04:52→18:29)
[2017-12-01] MEDS: IPRATROPIUM 0.5MG/ALBUTEROL 2.5MG INH SOL UD 3ML (DUONEB)(J7620) NEB ×4 (08:08→20:48)
[2017-12-01] MEDS: HumaLOG INSULIN (NovoLOG) PER UNIT SC ×4 (08:26→20:41)
[2017-12-01] MEDS: APIXABAN 5 MG TAB (ELIQUIS) PO ×2 (08:26→20:27)
[2017-12-01] MEDS: ALLOPURINOL 300 MG TAB PO (08:26)
[2017-12-01] MEDS: GABAPENTIN 300 MG CAP PO ×3 (08:26→20:26)
[2017-12-01] MEDS: ASPIRIN 81 MG ENTERIC TAB PO (08:26)
[2017-12-01] MEDS: LACTOBACILLUS ACIDOPHILUS CAP (BACID) PO ×3 (08:26→17:08)
[2017-12-01] MEDS: TORSEMIDE (DEMADEX) 50 MG PER 1/2 TAB PO (08:27)
[2017-12-01] MEDS: rOPINIRole 1MG TAB PO ×2 (08:27→20:26)
[2017-12-01] MEDS: ACETAMINOPHEN 500 MG TAB PO ×3 (08:27→20:27)
[2017-12-01] MEDS: CARVedilol 12.5 MG TAB PO ×2 (08:27→20:31)
[2017-12-01] MEDS: SENOKOT S TAB PO ×2 (08:27→20:27)
[2017-12-01] MEDS: CYANOCOBALAMIN 500 MCG TAB PO (08:27)
[2017-12-01] MEDS: SODIUM CHLORIDE 0.9% INJ 10 ML SYR IV (08:28)
[2017-12-01 12:07] LABS: BEDSIDE GLUCOSE 384 MG/DL (80-115)
[2017-12-01] MEDS: NYSTATIN 100,000 UNITS/GM TOPICAL PWD 15 GM TOP ×2 (12:49→20:40)
[2017-12-01] MEDS: predniSONE 20 MG TAB PO ×2 (12:50→20:27)
[2017-12-01] MEDS ORDERED: DILUENT IV (13:15)
[2017-12-01] MEDS ORDERED: IMMUNE GLOBULIN IV (13:15)
[2017-12-01 14:21] LABS: HEMATOCRIT 31.5 % (42.0-52.0); HEMOGLOBIN 10.3 g/dl (13.5-17.5); MEAN CORPUSCULAR HEMOGLOBIN 32.6 pg (27.0-33.0); MEAN CORPUSCULAR HGB CONC 32.7 g/dl (32.0-36.5); MEAN CORPUSCULAR VOLUME 99.7 fl (80.0-96.0); PLATELET COUNT, AUTOMATED 154 10^3/uL (150-450); RED BLOOD COUNT 3.16 10^6/uL (4.30-6.10); RED CELL DISTRIBUTION WIDTH 16.3 % (11.5-14.5); WHITE BLOOD COUNT 11.2 10^3/uL (4.0-10.0)
[2017-12-01 14:22] LABS: POS COUNT POS FLAG; POSITIVE MORPH POS FLAG
[2017-12-01 14:23] LABS: ADD MANUAL DIFFER YES; DIFF SLIDE NUMBER 278
[2017-12-01] MEDS: ACETAMINOPHEN TAB 650MG DOSE (2X325MG) PO (14:41)
[2017-12-01] MEDS: diphenhydrAMINE 50 MG CAP PO (14:41)
[2017-12-01 14:48] LABS: ATYPICAL LYMPH 3 % (0-5); BANDS 6 % (< 11); LYMPHOCYTES 4 % (16-52); MONOCYTES 4 % (0-8); NEUTROPHILS 83 % (35-75); NUCLEATED RED BLOOD CELL 2 % (0-0); PLATELET ESTIMATE NORMAL (NORMAL)
[2017-12-01 14:49] LABS: POLYCHROMASIA 1+
[2017-12-01 15:23] LABS: CARBON DIOXIDE LEVEL 28 MEQ/L (21-32); POTASSIUM SERUM 3.8 MEQ/L (3.5-5.1); SODIUM LEVEL 135 MEQ/L (136-145)
[2017-12-01 15:24] LABS: BLOOD UREA NITROGEN 42 MG/DL (7-18); CALCIUM LEVEL 8.5 MG/DL (8.8-10.2); CHLORIDE LEVEL 93 MEQ/L (98-107); CREATININE FOR GFR 1.71 MG/DL (0.70-1.30); GLUCOSE, FASTING 344 MG/DL (70-100); NT-PRO BNP 480 PG/ML (<125)
[2017-12-01 15:25] LABS: ANION GAP 14 MEQ/L (8-16)
[2017-12-01] MEDS: IMMUNE GLOBULIN 10% 10GM 100ML 10 GM in APPROPRIATE DILUENT 1 EA IV (15:48)
[2017-12-01] MEDS: IMMUNE GLOBULIN 10% 20GM 200ML 20 GM in APPROPRIATE DILUENT 1 EA IV (16:57)
[2017-12-01] MEDS: PRAVASTATIN 20 MG TAB PO (20:27)
[2017-12-01] MEDS: SERTRALINE HCL 50 MG TAB PO (20:27)
[2017-12-01] MEDS: PANTOPRAZOLE 40MG TAB (PROTONIX) PO (20:27)
[2017-12-01] MEDS: LEVEMIR (INSULIN DETEMIR) 1 UNITS/0.01ML SC (20:41)
[2017-12-02 02:14] LABS: BEDSIDE GLUCOSE 396 MG/DL (80-115)
[2017-12-02 02:14] LABS: BEDSIDE GLUCOSE 288 MG/DL (80-115)
[2017-12-02 02:14] LABS: BEDSIDE GLUCOSE 463 MG/DL (80-115)
[2017-12-02 02:14] LABS: BEDSIDE GLUCOSE 466 MG/DL (80-115)
[2017-12-02] MEDS: DOXYCYCLINE HYCLATE 100 MG in D5W MINI-BAG PLUS 100 ML IV (03:53)
[2017-12-02 07:04] LABS: BEDSIDE GLUCOSE 334 MG/DL (80-115)
[2017-12-02] MEDS: IPRATROPIUM 0.5MG/ALBUTEROL 2.5MG INH SOL UD 3ML (DUONEB)(J7620) NEB ×2 (07:28→12:01)
[2017-12-02] MEDS: HumaLOG INSULIN (NovoLOG) PER UNIT SC (07:45)
[2017-12-02] MEDS: LACTOBACILLUS ACIDOPHILUS CAP (BACID) PO (07:45)
[2017-12-02] MEDS: predniSONE 20 MG TAB PO (07:46)
[2017-12-02] MEDS: ACETAMINOPHEN 500 MG TAB PO (07:46)
[2017-12-02] MEDS: rOPINIRole 1MG TAB PO (07:46)
[2017-12-02] MEDS: CARVedilol 12.5 MG TAB PO (07:47)
[2017-12-02] MEDS: CYANOCOBALAMIN 500 MCG TAB PO (07:47)
[2017-12-02] MEDS: SENOKOT S TAB PO (07:47)
[2017-12-02] MEDS: ASPIRIN 81 MG ENTERIC TAB PO (07:47)
[2017-12-02] MEDS: APIXABAN 5 MG TAB (ELIQUIS) PO (07:48)
[2017-12-02] MEDS: ALLOPURINOL 300 MG TAB PO (07:48)
[2017-12-02] MEDS: NYSTATIN 100,000 UNITS/GM TOPICAL PWD 15 GM TOP (07:49)
[2017-12-02] MEDS: GABAPENTIN 300 MG CAP PO (07:49)
[2017-12-02] MEDS: SODIUM CHLORIDE 0.9% INJ 10 ML SYR IV (07:51)
[2017-12-02] MEDS: TORSEMIDE (DEMADEX) 50 MG PER 1/2 TAB PO (09:47)
[2017-12-04 08:14] LABS: IgG SERUM (part of Subclasses) 556 mg/dL (700-1600); IgG Subclass 1 312 mg/dL (248-810); IgG Subclass 2 157 mg/dL (130-555); IgG Subclass 3 59 mg/dL (15-102); IgG Subclass 4 20 mg/dL (2-96)
== END 2017-12-02 12:35 | DRG 191 ==
LOC: M ED INP 11-29 01:22 → M MS5PR 11-29 04:33 → M ED 21:00
DX: J44.1 Chronic obstructive pulmonary disease with (acute) exacerbation (principal); I50.32 Chronic diastolic (congestive) heart failure; E27.40 Unspecified adrenocortical insufficiency; I13.0 Hypertensive heart and chronic kidney disease with heart failure and stage 1 through stage 4 chronic kidney disease, or unspecified chronic kidney disease; E87.0 Hyperosmolality and hypernatremia; Z68.41 Body mass index [BMI] 40.0-44.9, adult; G47.33 Obstructive sleep apnea (adult) (pediatric); N18.3 Chronic kidney disease, stage 3 (moderate); I48.0 Paroxysmal atrial fibrillation; E11.22 Type 2 diabetes mellitus with diabetic chronic kidney disease; Z66 Do not resuscitate; G25.81 Restless legs syndrome; E11.40 Type 2 diabetes mellitus with diabetic neuropathy, unspecified; R06.03 Acute respiratory distress; D53.9 Nutritional anemia, unspecified; E66.9 Obesity, unspecified; M10.9 Gout, unspecified; Z86.14 Personal history of Methicillin resistant Staphylococcus aureus infection; Z90.2 Acquired absence of lung [part of]; Z85.118 Personal history of other malignant neoplasm of bronchus and lung; Z87.891 Personal history of nicotine dependence; Z79.01 Long term (current) use of anticoagulants; Z79.82 Long term (current) use of aspirin; Z79.52 Long term (current) use of systemic steroids; Z79.4 Long term (current) use of insulin; Z79.899 Other long term (current) drug therapy; Z88.5 Allergy status to narcotic agent; Z99.81 Dependence on supplemental oxygen; Z90.5 Acquired absence of kidney

== ENCOUNTER → 2017-12-02 | Outpatient (REF) ==
[2017-12-02 14:43] LABS: TROPONIN I 0.04 NG/ML (< 0.10)
== END ==
DX: I50.9 Heart failure, unspecified (principal)